=== PATIENT | female | born 1950 | race Two or more races ===

== ENCOUNTER 2020-09-10 09:05 | Outpatient (REF) | payer MEDICARE, MEDICAID, SELFPAY ==
--- NOTE | 2020-09-10 | US_ITS ---
EXAMINATION: US VENOUS ULTRASOUND WITH DOPPLER LOWER EXTREMITY, RIGHT CLINICAL INFORMATION: Swelling COMPARISON: Previous exam December 2017 TECHNIQUE: Ultrasound of the deep veins is performed from the hip to the calf with compression sonography and color and pulse Doppler assessment. Spectral analysis with color-flow imaging is performed. FINDINGS: There is normal venous compression and respiratory variation and augmented flow. The visualized common femoral vein, superficial femoral vein, profunda femoral vein, popliteal vein, and the trifurcation region shows no evidence of deep venous thrombosis. There is no significant popliteal fossa cyst. US/US venous duplex LE RT IMPRESSION: No DVT demonstrated in the right lower extremity.
== END 2020-09-10 09:06 | disposition home or self-care (01) ==
LOC: HO.US 09:05
PROVIDERS: PCP Internal Medicine; Visit Provider Internal Medicine
DX: R60.9 Edema, unspecified (principal)
CPT/HCPCS: 93971

== ENCOUNTER 2020-09-10 09:17 | Outpatient (REF) | payer MEDICARE, MEDICAID, SELFPAY | END 2020-09-10 09:18 | disposition home or self-care (01) | LOC: HO.HMGCX 09:17 | PROVIDERS: PCP Internal Medicine; Visit Provider Internal Medicine | DX: Z13.89 Encounter for screening for other disorder (principal) ==

== ENCOUNTER → 2020-10-01 14:15 | Outpatient (BNVA) | payer MEDICARE, MEDICAID, SELFPAY | PROVIDERS: PCP Family Medicine; Visit Provider Internal Medicine | DX: J44.9 Chronic obstructive pulmonary disease, unspecified (principal); J30.9 Allergic rhinitis, unspecified; Z79.899 Other long term (current) drug therapy | CPT/HCPCS: Q3014 ==

== ENCOUNTER → 2021-01-22 14:58 | Outpatient (BNVA) | payer MEDICARE, MEDICAID, SELFPAY | PROVIDERS: Visit Provider Internal Medicine | DX: Z13.89 Encounter for screening for other disorder (principal) | CPT/HCPCS: Q3014 ==

== ENCOUNTER 2021-02-16 07:28 | Outpatient (REF) | payer MEDICARE, MEDICAID, SELFPAY | END 2021-02-16 07:29 | disposition home or self-care (01) | LOC: HO.HOSX 07:28 | PROVIDERS: Visit Provider Orthopaedic Surgery | DX: Z13.89 Encounter for screening for other disorder (principal) ==

== ENCOUNTER 2021-04-28 04:26 | Emergency (ER) | payer MEDICARE, MEDICAID, SELFPAY ==
--- NOTE | ~2021-04-28 | CT_ITS ---
EXAMINATION: CT ABDOMEN AND PELVIS WITHOUT CONTRAST CLINICAL INFORMATION: Abscess COMPARISON: CT abdomen/pelvis dated 11/30/2018 TECHNIQUE: Multidetector volumetric imaging was performed from the superior aspect of the liver through the pubic symphysis. Sagittal and coronal reformatted images were obtained on the technologist's workstation. This CT examination was performed using dose optimization techniques as appropriate, variously including the following: *Automated exposure control *Adjustment of mA and/or kV according to patient size (this includes techniques or standardized protocols for targeted exams where dose is matched to indication/reason for exam; i.e. extremities or head) *Use of iterative reconstruction technique DLP: 1370 mGy-cm FINDINGS: LUNG BASES: The visualized lung bases are unremarkable. LIVER, GALLBLADDER, AND BILIARY TREE: The liver is normal in size, shape, and attenuation. No focal hepatic lesion or biliary ductal dilatation is present. Gallbladder unremarkable. PANCREAS: Unremarkable. SPLEEN: Unremarkable. ADRENAL GLANDS: Unremarkable. KIDNEYS AND URETERS: The kidneys are normal in size, shape, and attenuation. No hydronephrosis, hydroureter, or calculi seen. No perinephric stranding. BLADDER: Unremarkable. GASTROINTESTINAL TRACT: Left colonic diverticulosis. No evidence of diverticulitis. Normal appendix. Stomach and small bowel unremarkable. ABDOMINAL WALL: Small fat-containing umbilical hernia without evidence of inflammation. LYMPH NODES: Normal. VASCULAR: Unremarkable. PELVIC VISCERA: Hysterectomy and right oophorectomy. Left ovary unremarkable. There is fat stranding within the left ischioanal fat, medial to the ischium, without abscess formation or evidence of a fistulous tract. OSSEOUS STRUCTURES: Unremarkable. CT/CT abdomen pelvis wo con IMPRESSION: Left colonic diverticulosis without evidence of diverticulitis. Hysterectomy and right oophorectomy. Left ovary unremarkable. Minimal fat stranding within the left ischioanal fat extending towards the ischium suggestive of evolving decubitus changes.
[2021-04-28 04:30] VITALS: BP 129/64; PULSE 73; RESP 16; TEMP 36.9; O2SAT 94; BMI 45.2
--- NOTE | 2021-04-28 06:10 | ED.SKABFB ---
HPI - Skin/Abscess/Foreign Bdy General Chief complaint: Skin/Abscess/Foreign Body Stated complaint: ABD PAIN Time Seen by Provider: 04/28/21 05:55 History of Present Illness HPI narrative: 62-year-old female presents today with having skin lesions that is going on for few months. Patient complaining of discharge coming from 1 of the wounds in the left groin area. No history of diabetes. No nausea no vomiting. No fever. Positive generalized malaise. Patient claims these rash comes and goes. There has been multiple rash in her gluteal area bilaterally. These regions has been ongoing for months if not years. Patient claims she clean herself on a daily basis. Related Data Home Medications Medication Instructions Recorded Confirmed allopurinol 100 mg tablet 100 mg PO QAM 10/01/20 amlodipine 10 mg tablet 10 mg PO DAILY 10/01/20 atorvastatin 80 mg tablet 80 mg PO DAILY 10/01/20 blood sugar diagnostic #10 ea 10/01/20 brimonidine 0.2 % eye drops drp OPHTHALMIC (EYE) ONCE ml 10/01/20 calcium carbonate 600 mg (1,500 1 tab PO BID 10/01/20 mg)-vitamin D3 400 unit tablet carbamide peroxide 6.5 % ear drops 2 drp OTIC (EARS) DAILY PRN 10/01/20 diclofenac sodium 1 % topical gel TOPICAL 10/01/20 dicyclomine 20 mg tablet 20 mg PO QID 10/01/20 ferrous sulfate 325 mg (65 mg 325 mg PO QAM 10/01/20 iron) tablet fexofenadine 180 mg tablet 180 mg PO QAM 10/01/20 fluticasone propionate 50 INTRANASAL 10/01/20 mcg/actuation nasal spray,suspension gabapentin 800 mg tablet 800 mg PO QID 10/01/20 hydrochlorothiazide 25 mg tablet 25 mg PO DAILY 10/01/20 indomethacin 50 mg capsule 50 mg PO TID PRN 10/01/20 inhalational spacing device #1 ea 10/01/20 lancets 33 gauge #100 ea 10/01/20 latanoprost 0.005 % eye drops 1 drp OPHTHALMIC (EYE) BEDTIME 10/01/20 lidocaine 5 % topical ointment TOPICAL 10/01/20 losartan 50 mg tablet 50 mg PO DAILY 10/01/20 metoprolol succinate 50 mg 50 mg PO DAILY 10/01/20 tablet,extended release 24 hr olanzapine 10 mg tablet 10 mg PO BEDTIME 10/01/20 pantoprazole 40 mg tablet,delayed 40 mg PO DAILY 10/01/20 release perphenazine 4 mg tablet 4 mg PO 10/01/20 potassium chloride 10 mEq 10 meq PO DAILY 10/01/20 tablet,extended release sertraline 100 mg tablet 100 mg PO DAILY 10/01/20 sucralfate 1 gram tablet 2 g PO DAILY 10/01/20 triamcinolone acetonide 0.1 % applic TOPICAL BID 10/01/20 topical cream varicella-zoster glycoE [id number] IM 10/01/20 adj(PF) 50 mcg/0.5 mL IM susp, kit Previous Rx's Medication Instructions Recorded albuterol sulfate 90 mcg/actuation 1 - 2 puff INHALATION Q4-6H PRN 10/15/20 aerosol inhaler #18 g fluticasone 250 mcg-salmeterol 50 1 ea PO BID #60 cap 02/03/21 mcg/dose blistr powdr for inhalation montelukast 10 mg tablet 10 mg PO QPM #30 tab 03/31/21 Allergies Allergy/AdvReac Type Severity Reaction Status Date / Time peanut [PEANUT] Allergy Severe ITCHY, Verified 01/22/21 15:00 SWELLING seafood Allergy Severe Rash Verified 01/22/21 15:00 tomato [TOMATO] Allergy Severe ITCHY, Verified 01/22/21 15:00 SWELLING aspirin [ASA] Allergy Intermediate ITCHY,ANXIOUS, Verified 01/22/21 15:00 itching, rash Iodinated Contrast Media Allergy Intermediate HIVES Verified 01/22/21 15:00 [IV CONTRAST] plantain [PLANTAIN] Allergy Intermediate ITCHY/SWELL Verified 01/22/21 15:00 ING Review of Systems Review of Systems: Constitutional: No Weight loss, No Fever, No Chills, No Night Sweats, No Fatigue, No Malaise ENT/Mouth: No Hearing loss, No Ear Pain, No Nasal Congestion, No Sinus Pain, No Hoarseness, No sore throat, No Rhinorrhea, No Swallowing Difficulty Eyes: No Eye Pain, No Swelling, No Redness, No Foreign Body, No Discharge, No Vision Changes Cardiovascular: No Chest Pain, No SOB, No Dyspnea on Exertion, No Orthopnea, No Edema, No Palpitations Respiratory: No Cough, No Sputum, No Wheezing, No Smoke Exposure, No Dyspnea Gastrointestinal: No Nausea, No Vomiting, No Diarrhea, No Constipation, No abdominal Pain, No Hematochezia, No Melena Genitourinary: no irregular bleeding, No Dysuria, No Urinary Frequency, No Hematuria, No Urinary Incontinence, No Urgency, No Flank Pain, No Urinary Flow Changes, No Hesitancy Musculoskeletal: No joint pain, No Myalgias, No Joint Swelling Skin: Positive skin rash to the bilateral gluteal area. To the groin area on the left side. Neuro: No Weakness, No Numbness, No Paresthesias, No Loss of Consciousness, No Dizziness, No Headache Psych: No Anxiety/Panic, No Depression, No SI/HI/AH/VH, No Social Issues, Heme/Lymph: No Bruising, No Bleeding,No Lymphadenopathy Endocrine: No Polyuria, No Polydipsia, No Temperature Intolerance PMFSH Past Medical History Medical History Allergic rhinitis COPD (chronic obstructive pulmonary disease) Social History Social History Alcohol intake: never Patient Tobacco Use Status: Never used Tobacco Use of substances other than those prescribed or required for medical reasons: No Advance Directives: No Advance Directives Information Provided: No Physical Exam Vital Signs: Vital Signs: Last Vital Signs Temp 98.5 F 04/28/21 04:30 Pulse 73 04/28/21 04:30 Resp 16 04/28/21 04:30 BP 129/64 04/28/21 04:30 Pulse Ox 94 04/28/21 04:30 Body Mass Index 45.2 Appearance: Alert. Oriented X3. No acute distress. Eyes: Pupils equal, round and reactive to light. ENT: Pharynx normal. Neck: Normal inspection. Neck supple. No lymph nodes noted. No crepitus CVS: Normal heart rate and rhythm. Pulses normal. Normal S1 and S2 Respiratory: No respiratory distress. Breath sounds normal. No Wheezing. No rales Abdomen: Soft and nontender. No rigidity. No distention. good BS x4 Skin: Skin warm and dry. In the left groin there is an area of a draining abscess that is approximately 3 cm x 2 cm in size. Purulence discharge noted. Bilateral gluteal area has multiple lesion that seems erythematous crusted over. Question abscess that had drained. Normal skin turgor. Extremities: No lower extremity edema. Neurovascular intact to all extremities. No Lacerations. No Rash Neuro: Oriented X 3. No motor deficit. No sensory deficit. Moving all extermities. No slurred speech MDM - Skin/Abscess/Foreign Bdy MDM Narrative Medical decision making narrative: CT scan of the abdomen pelvis did not show any acute evidence of fistula. Patient has an abscess that is already draining. Will give patient additional doxycycline. Will go ahead and have patient use nystatin for the moist fungal lesion. In stable condition. Close follow-up on an outpatient basis. Discharge Plan Discharge Prescriptions: No Action albuterol sulfate 90 mcg/actuation HFA aerosol inhaler 1 - 2 puff inhalation Q4-6H PRN (Reason: dyspnea) Qty: 18 RF: 3 fluticasone propion-salmeterol 250-50 mcg/dose blister with device 1 ea PO BID Qty: 60 RF: 3 montelukast 10 mg tablet 10 mg PO QPM Qty: 30 RF: 5 lidocaine 5 % ointment topical RF: 0 losartan 50 mg tablet 50 mg PO DAILY RF: 0 calcium carbonate-vitamin D3 600 mg(1,500mg) -400 unit tablet 1 tab PO BID RF: 0 hydrochlorothiazide 25 mg tablet 25 mg PO DAILY RF: 0 ferrous sulfate 325 mg (65 mg iron) tablet 325 mg PO QAM RF: 0 pantoprazole 40 mg tablet,delayed release (DR/EC) 40 mg PO DAILY RF: 0 gabapentin 800 mg tablet 800 mg PO QID RF: 0 allopurinol 100 mg tablet 100 mg PO QAM RF: 0 fexofenadine 180 mg tablet 180 mg PO QAM RF: 0 olanzapine 10 mg tablet 10 mg PO BEDTIME RF: 0 sertraline 100 mg tablet 100 mg PO DAILY RF: 0 atorvastatin 80 mg tablet 80 mg PO DAILY RF: 0 latanoprost 0.005 % drops 1 drp ophthalmic (eye) BEDTIME RF: 0 diclofenac sodium 1 % gel topical RF: 0 fluticasone propionate 50 mcg/actuation spray,suspension intranasal RF: 0 brimonidine 0.2 % drops ophthalmic (eye) ONCE RF: 0 amlodipine 10 mg tablet 10 mg PO DAILY RF: 0 metoprolol succinate 50 mg tablet extended release 24 hr 50 mg PO DAILY RF: 0 potassium chloride 10 mEq tablet extended release 10 meq PO DAILY RF: 0 carbamide peroxide 6.5 % drops 2 drp otic (ears) DAILY PRN (Reason: headache) RF: 0 triamcinolone acetonide 0.1 % cream topical BID RF: 0 indomethacin 50 mg capsule 50 mg PO TID PRN (Reason: gout pain) RF: 0 (DME) lancets 33 gauge misc See Rx Instructions ea Not Applicable DAILY Qty: 100 RF: 0 dicyclomine 20 mg tablet 20 mg PO QID RF: 0 sucralfate 1 gram tablet 2 g PO DAILY RF: 0 perphenazine 4 mg tablet 4 mg PO RF: 0 Shingrix (PF) 50 mcg/0.5 mL suspension for reconstitution IM RF: 0 (DME) Compact Space Chamber Spacer See Rx Instructions ea .ROUTE .MEDSUPPLY Qty: 1 RF: 0 (DME) OneTouch Ultra Blue Test Strip Strip See Rx Instructions strip .ROUTE .MEDSUPPLY Qty: 10 RF: 0
== END 2021-04-28 07:30 | disposition home or self-care (01) ==
PROVIDERS: Emergency Provider Emergency Medicine Emergency Medical Services
DX: N76.4 Abscess of vulva (principal); B35.6 Tinea cruris
CPT/HCPCS: 74176; 99283; 99284

== ENCOUNTER 2021-05-28 06:27 | Emergency (ER) | payer MEDICARE, MEDICAID, SELFPAY ==
[2021-05-28 06:30] VITALS: BP 159/76; PULSE 88; O2SAT 97
[2021-05-28 06:33] VITALS: BP 117/91; PULSE 83; RESP 20; TEMP 37.2; O2SAT 94; BMI 46.6
--- NOTE | 2021-05-28 06:48 | ED_ITS ---
HPI - Abdominal Pain General Chief Complaint: Abdominal Pain Stated Complaint: blood in urine Time Seen by Provider: 05/28/21 06:36 Source: patient and EMS Mode of arrival: EMS Limitations: no limitations History of Present Illness HPI narrative: Patient comes emergency room complaining of a rash in her legs. Patient states that she is convinced that there were maggots coming out of her skin. Patient has significant scratches and excoriations in her lower extremities around the buttocks area, no where else on the body. Patient denies scratching the wounds. Initially, EMS was called with a chief complain of blood in the urine. Patient denies hematuria, dysuria, flank pain, no abdominal pain, no URI symptoms, no fever or chills. Related Data Home Medications Medication Instructions Recorded Confirmed allopurinol 100 mg tablet 100 mg PO QAM 10/01/20 amlodipine 10 mg tablet 10 mg PO DAILY 10/01/20 atorvastatin 80 mg tablet 80 mg PO DAILY 10/01/20 blood sugar diagnostic #10 ea 10/01/20 brimonidine 0.2 % eye drops drp OPHTHALMIC (EYE) ONCE ml 10/01/20 calcium carbonate 600 mg (1,500 1 tab PO BID 10/01/20 mg)-vitamin D3 400 unit tablet carbamide peroxide 6.5 % ear drops 2 drp OTIC (EARS) DAILY PRN 10/01/20 diclofenac sodium 1 % topical gel TOPICAL 10/01/20 dicyclomine 20 mg tablet 20 mg PO QID 10/01/20 ferrous sulfate 325 mg (65 mg 325 mg PO QAM 10/01/20 iron) tablet fexofenadine 180 mg tablet 180 mg PO QAM 10/01/20 fluticasone propionate 50 INTRANASAL 10/01/20 mcg/actuation nasal spray,suspension gabapentin 800 mg tablet 800 mg PO QID 10/01/20 hydrochlorothiazide 25 mg tablet 25 mg PO DAILY 10/01/20 indomethacin 50 mg capsule 50 mg PO TID PRN 10/01/20 inhalational spacing device #1 ea 10/01/20 lancets 33 gauge #100 ea 10/01/20 latanoprost 0.005 % eye drops 1 drp OPHTHALMIC (EYE) BEDTIME 10/01/20 lidocaine 5 % topical ointment TOPICAL 10/01/20 losartan 50 mg tablet 50 mg PO DAILY 10/01/20 metoprolol succinate 50 mg 50 mg PO DAILY 10/01/20 tablet,extended release 24 hr olanzapine 10 mg tablet 10 mg PO BEDTIME 10/01/20 pantoprazole 40 mg tablet,delayed 40 mg PO DAILY 10/01/20 release perphenazine 4 mg tablet 4 mg PO 10/01/20 potassium chloride 10 mEq 10 meq PO DAILY 10/01/20 tablet,extended release sertraline 100 mg tablet 100 mg PO DAILY 10/01/20 sucralfate 1 gram tablet 2 g PO DAILY 10/01/20 triamcinolone acetonide 0.1 % applic TOPICAL BID 10/01/20 topical cream varicella-zoster glycoE [id number] IM 10/01/20 adj(PF) 50 mcg/0.5 mL IM susp, kit Previous Rx's Medication Instructions Recorded albuterol sulfate 90 mcg/actuation 1 - 2 puff INHALATION Q4-6H PRN 10/15/20 aerosol inhaler #18 g montelukast 10 mg tablet 10 mg PO QPM #30 tab 03/31/21 doxycycline hyclate 100 mg PO BID 7 Days #14 cap 04/28/21 nystatin 1 appl TOPICAL BID #30 g 04/28/21 fluticasone 250 mcg-salmeterol 50 1 ea PO BID #60 cap 05/26/21 mcg/dose blistr powdr for inhalation cephalexin [Keflex] 750 mg PO BID #14 cap 05/28/21 doxycycline hyclate 100 mg PO BID #14 cap 05/28/21 Allergies Allergy/AdvReac Type Severity Reaction Status Date / Time peanut [PEANUT] Allergy Severe ITCHY, Verified 01/22/21 15:00 SWELLING seafood Allergy Severe Rash Verified 01/22/21 15:00 tomato [TOMATO] Allergy Severe ITCHY, Verified 01/22/21 15:00 SWELLING aspirin [ASA] Allergy Intermediate ITCHY,ANXIOUS, Verified 01/22/21 15:00 itching, rash Iodinated Contrast Media Allergy Intermediate HIVES Verified 01/22/21 15:00 [IV CONTRAST] plantain [PLANTAIN] Allergy Intermediate ITCHY/SWELL Verified 01/22/21 15:00 ING Review of Systems Review of Systems Constitutional : No Weight loss, No Fever, No Chills, No Night Sweats, No Fa tigue, No Malaise ENT/Mouth : No Hearing loss, No Ear Pain, No Nasal Congestion, No Sinus Pain, No Hoarseness, No sore throat, No Rhinorrhea, No Swallowing Difficulty Eyes: No Eye Pain, No Swelling, No Redness, No Foreign Body, No Discharge, No Vision Changes Cardiovascular : No Chest Pain, No SOB, No Dyspnea on Exertion, No Orthopnea, No Edema, No Palpitations Respiratory : No Cough, No Sputum, No Wheezing, No Smoke Exposure, No Dyspnea Gastrointestinal : No Nausea, No Vomiting, No Diarrhea, No Constipation, No abdominal Pain, No Hematochezia, No Melena Genitourinary : no irregular bleeding, No Dysuria, No Urinary Frequency, No Hematuria, No Urinary Incontinence, No Urgency, No Flank Pain, No Urinary Flow Changes, No Hesitancy Musculoskeletal : No joint pain, No Myalgias, No Joint Swelling Skin : Complaining of multiple skin lesions in both upper thighs posteriorly Neuro : No Weakness, No Numbness, No Paresthesias, No Loss of Consciousness, No Dizziness, No Headache Psych : No Anxiety/Panic, No Depression, No SI/HI/AH/VH, No Social Issues, Heme/Lymph: No Bruising, No Bleeding,No Lymphadenopathy Endocrine : No Polyuria, No Polydipsia, No Temperature Intolerance Physical Exam Vital Signs: Vital Signs: Last Vital Signs Temp 98.9 F 05/28/21 06:33 Pulse 83 05/28/21 06:33 Resp 20 05/28/21 06:33 BP 117/91 H 05/28/21 06:33 Pulse Ox 94 05/28/21 06:33 Body Mass Index 46.6 Appearance: Alert. Oriented X3. No acute distress. Eyes: Pupils equal, round and reactive to light. ENT: Pharynx normal. Neck: Normal inspection. Neck supple. No lymph nodes noted. No crepitus CVS: Normal heart rate and rhythm. Pulses normal. Normal S1 and S2 Respiratory: No respiratory distress. Breath sounds normal. No Wheezing. No rales Abdomen: Soft and nontender. No rigidity. No distention. good BS x4 Skin: Skin warm and dry. Patient has multiple deep excoriations, likely from skin picking, most of wound and in the buttocks and the thighs posteriorly, patient has a small abscess in the left lower quadrant, superficial, less than 1 cm, mildly erythematous , no fluctuation Extremities: No lower extremity edema. No lower extremity edema. No Lacerations. No Rash Neuro: Oriented X 3. No motor deficit. No sensory deficit. Moving all extermities. No slurred speech. Course Course Course Narrative: Patient was giving the 1st dose of Keflex and doxycycline for cellulitis. Sepsis is not suspected. Patient struck to follow-up with her primary care physician. At this time, it seems that the patient is picking on her skin, the lesions are only in her upper thighs. The abscess in the abdomen left lower quadrant, is small, does not contain any fluid, I&D not recommended at this time. MDM - Abdominal Pain Lab Data Result diagrams: 05/28/21 07:08 05/28/21 07:08 Labs: Lab Results 05/28/21 05/28/21 05/28/21 Range/Units 07:08 07:08 07:30 WBC 11.6 H (4.8-10.8) X10*3/uL RBC 4.45 (4.20-5.50) X10*6/uL Hgb 13.3 (12.0-16.0) g/dl Hct 41.2 (37-47) % MCV 92.6 (80-98) fL MCH 29.9 (27.0-33.0) pg MCHC 32.3 (31.0-35.0) g/dl RDW 13.9 (11.0-16.0) % Plt Count 296 (160-400) X10*3/uL MPV 10.3 (9.4-12.3) fL Immature Gran % (Auto) 0.3 (0.0-0.4) % Neut % (Auto) 72.2 (45-73) % Lymph % (Auto) 17.7 L (20-40) % Desha % (Auto) 7.0 (2-11) % Eos % (Auto) 2.5 (0-4) % Baso % (Auto) 0.3 (0-2) % Lymph # (Auto) 2.1 (1.2-4.9) X10*3/uL Desha # (Auto) 0.8 (0.1-1.2) X10*3/uL Eos # (Auto) 0.3 (0.0-0.4) X10*3/uL Baso # (Auto) 0.0 (0.0-0.2) X10*3/uL Abs Immat Gran (auto) 0.04 H (0.00-0.03) X10*3/uL Absolute Neuts (auto) 8.4 H (2.0-8.3) X10*3/uL Absolute Nucleated RBC 0.000 (0.0-0.012) X10*3/uL Nucleated RBC % (auto) 0.0 (0.0-0.2) /100WBC Sodium 144 (135-145) mmol/L Potassium 4.0 (3.3-5.1) mmol/L Chloride 105 (96-108) mmol/L Carbon Dioxide 30 H (22-29) mmol/L Anion Gap 13 (12-20) BUN 20 H (9-16) mg/dL Creatinine 1.26 (0.5-1.4) mg/dL Estim Creat Clear Calc 56.5 Estimated GFR 42 Random Glucose 111 (60-115) mg/dL Calcium 8.7 (8.4-10.2) mg/dL Total Bilirubin 0.4 (0.0-1.0) mg/dL Direct Bilirubin < 0.2 (0.0-0.5) mg/dL AST 22 (5-31) U/L ALT 19 (0-31) U/L Alkaline Phosphatase 126 H (39-117) U/L Total Protein 6.1 L (6.5-8.0) g/dL Albumin 3.7 (3.5-5.0) g/dL Urine Color YELLOW Urine Appearance CLEAR Urine pH 6.0 (5.0-8.0) Ur Specific [place] 1.025 (1.005-1.025) Urine Protein 1+ H (NEG-TRACE) MG/DL Urine Glucose (UA) NEG (NEG) MG/DL Urine Ketones 5 (NEG) MG/DL Urine Blood NEG (NEG) Urine Nitrite NEG (NEG) Ur Leukocyte Esterase NEG (NEG) Urine RBC 0-2 (0) /HPF Urine WBC 0-2 (0-4) /HPF Ur Squamous Epith Cells 2+ /LPF Urine Bacteria TRACE /LPF Urine Mucus TRACE /LPF Discharge Plan Discharge Clinical Impression: Cellulitis Patient Disposition: Home, Self-Care Instructions: Cellulitis (ED) Additional Instructions: Please follow-up with your primary care physician tomorrow. If you have any worsening or new symptoms, please return to the emergency room or call 911 Prescriptions: New cephalexin [Keflex] 750 mg capsule 750 mg PO BID Qty: 14 RF: 0 doxycycline hyclate 100 mg capsule 100 mg PO BID Qty: 14 RF: 0 No Action albuterol sulfate 90 mcg/actuation HFA aerosol inhaler 1 - 2 puff inhalation Q4-6H PRN (Reason: dyspnea) Qty: 18 RF: 3 montelukast 10 mg tablet 10 mg PO QPM Qty: 30 RF: 5 fluticasone propion-salmeterol 250-50 mcg/dose blister with device 1 ea PO BID Qty: 60 RF: 3 doxycycline hyclate 100 mg capsule 100 mg PO BID 7 Days Qty: 14 RF: 0 nystatin 100,000 unit/gram powder 1 appl topical BID Qty: 30 RF: 0 lidocaine 5 % ointment topical RF: 0 losartan 50 mg tablet 50 mg PO DAILY RF: 0 calcium carbonate-vitamin D3 600 mg(1,500mg) -400 unit tablet 1 tab PO BID RF: 0 hydrochlorothiazide 25 mg tablet 25 mg PO DAILY RF: 0 ferrous sulfate 325 mg (65 mg iron) tablet 325 mg PO QAM RF: 0 pantoprazole 40 mg tablet,delayed release (DR/EC) 40 mg PO DAILY RF: 0 gabapentin 800 mg tablet 800 mg PO QID RF: 0 allopurinol 100 mg tablet 100 mg PO QAM RF: 0 fexofenadine 180 mg tablet 180 mg PO QAM RF: 0 olanzapine 10 mg tablet 10 mg PO BEDTIME RF: 0 sertraline 100 mg tablet 100 mg PO DAILY RF: 0 atorvastatin 80 mg tablet 80 mg PO DAILY RF: 0 latanoprost 0.005 % drops 1 drp ophthalmic (eye) BEDTIME RF: 0 diclofenac sodium 1 % gel topical RF: 0 fluticasone propionate 50 mcg/actuation spray,suspension intranasal RF: 0 brimonidine 0.2 % drops ophthalmic (eye) ONCE RF: 0 amlodipine 10 mg tablet 10 mg PO DAILY RF: 0 metoprolol succinate 50 mg tablet extended release 24 hr 50 mg PO DAILY RF: 0 potassium chloride 10 mEq tablet extended release 10 meq PO DAILY RF: 0 carbamide peroxide 6.5 % drops 2 drp otic (ears) DAILY PRN (Reason: headache) RF: 0 triamcinolone acetonide 0.1 % cream topical BID RF: 0 indomethacin 50 mg capsule 50 mg PO TID PRN (Reason: gout pain) RF: 0 (DME) lancets 33 gauge misc See Rx Instructions ea Not Applicable DAILY Qty: 100 RF: 0 dicyclomine 20 mg tablet 20 mg PO QID RF: 0 sucralfate 1 gram tablet 2 g PO DAILY RF: 0 perphenazine 4 mg tablet 4 mg PO RF: 0 Shingrix (PF) 50 mcg/0.5 mL suspension for reconstitution IM RF: 0 (DME) Compact Space Chamber Spacer See Rx Instructions ea .ROUTE .MEDSUPPLY Qty: 1 RF: 0 (DME) OneTouch Ultra Blue Test Strip Strip See Rx Instructions strip .ROUTE .MEDSUPPLY Qty: 10 RF: 0 PMFSH Past Medical History Medical History Allergic rhinitis COPD (chronic obstructive pulmonary disease) Social History Social History Alcohol intake: never Patient Tobacco Use Status: Never used Tobacco Advance Directives: No Advance Directives Information Provided: Yes
[2021-05-28 07:17] LABS: Basophils Percent Auto 0.3 % (0-2); Eosinophils Absolute Auto 0.3 X10*3/uL (0.0-0.4); Eosinophils Percent Auto 2.5 % (0-4); Hematocrit 41.2 % (37-47); Hemoglobin 13.3 g/dl (12.0-16.0); Imm Gran Abs Auto 0.04 X10*3/uL (0.00-0.03); Imm Gran Pct Auto 0.3 % (0.0-0.4); Lymphocytes Absolute Auto 2.1 X10*3/uL (1.2-4.9); Lymphocytes Percent Auto 17.7 % (20-40); MANUAL DIFF FLAG NO; Mean Corpuscular HGB Conc 32.3 g/dl (31.0-35.0); Mean Corpuscular Hemoglobin 29.9 pg (27.0-33.0); Mean Corpuscular Volume 92.6 fL (80-98); Mean Platelet Volume 10.3 fL (9.4-12.3); Monocytes Absolute Auto 0.8 X10*3/uL (0.1-1.2); Neutrophils Absolute Auto 8.4 X10*3/uL (2.0-8.3); Neutrophils Percent Auto 72.2 % (45-73); Platelet Count 296 X10*3/uL (160-400); Red Blood Count 4.45 X10*6/uL (4.20-5.50); Red Cell Distribution Width 13.9 % (11.0-16.0); White Blood Count 11.6 X10*3/uL (4.8-10.8)
[2021-05-28 07:38] LABS: Glucose Urine UA NEG (NEG); Leukocyte Esterase Urine NEG (NEG); Nitrite Urine NEG (NEG); Specific Gravity - Urine 1.025 (1.005-1.025); Urine Blood NEG (NEG); Urine Ketones 5 MG/DL (NEG); Urine Protein 1+ MG/DL (NEG-TRACE)
[2021-05-28 07:41] LABS: Appearance Urine CLEAR; Color Urine YELLOW
[2021-05-28 07:42] LABS: Alanine Aminotransferase 19 U/L (0-31); Albumin Level 3.7 g/dL (3.5-5.0); Alkaline Phosphatase 126 U/L (39-117); Anion Gap 13 (12-20); Aspartate Amino Transferase 22 U/L (5-31); Bilirubin Direct < 0.2 mg/dL (0.0-0.5); Bilirubin Total 0.4 mg/dL (0.0-1.0); Blood Urea Nitrogen 20 mg/dL (9-16); Calcium 8.7 mg/dL (8.4-10.2); Carbon Dioxide 30 mmol/L (22-29); Chloride 105 mmol/L (96-108); Creatinine Clr Calc Pharmacy 56.5; Estimated Glomerular Filt Rate 42; Glucose Random 111 mg/dL (60-115); Sodium 144 mmol/L (135-145); Total Protein 6.1 g/dL (6.5-8.0)
[2021-05-28 07:48] LABS: Bacteria Urine TRACE /LPF; RBC Urine 0-2 /HPF (0); Squamous Epithelial Cell Urine 2+ /LPF; WBC Urine 0-2 /HPF (0-4)
[2021-05-28 07:49] LABS: Mucus Urine TRACE /LPF
[2021-05-28 08:00] VITALS: BP 122/88; PULSE 84
[2021-05-28] MEDS: cephALEXin 500 MG CAPSULE PO (09:53)
== END 2021-05-28 10:01 | disposition home or self-care (01) ==
PROVIDERS: Emergency Provider Emergency Medicine; PCP Internal Medicine
DX: L03.116 Cellulitis of left lower limb (principal); L03.115 Cellulitis of right lower limb; L02.211 Cutaneous abscess of abdominal wall; J44.9 Chronic obstructive pulmonary disease, unspecified; Z79.899 Other long term (current) drug therapy
CPT/HCPCS: 36415; 80048; 80076; 81001; 85025; 99283; 99284

== ENCOUNTER 2021-10-27 07:47 | Outpatient (REF) | payer MEDICARE, MEDICAID, SELFPAY ==
[2021-10-27 08:15] LABS: MANUAL DIFF FLAG NO
[2021-10-27 08:40] LABS: Basophils Percent Auto 0.2 % (0-2); Eosinophils Absolute Auto 0.3 X10*3/uL (0.0-0.4); Eosinophils Percent Auto 3.2 % (0-4); Hematocrit 41.7 % (37.0-47.0); Hemoglobin 13.6 g/dl (12.0-16.0); Imm Gran Abs Auto 0.04 X10*3/uL (0.00-0.03); Imm Gran Pct Auto 0.5 % (0.0-0.4); Lymphocytes Absolute Auto 2.2 X10*3/uL (1.2-4.9); Lymphocytes Percent Auto 26.9 % (20-40); Mean Corpuscular HGB Conc 32.6 g/dl (31.0-35.0); Mean Corpuscular Volume 91.9 fL (80.0-98.0); Mean Platelet Volume 10.5 fL (9.4-12.3); Monocytes Absolute Auto 0.4 X10*3/uL (0.1-1.2); Monocytes Percent Auto 5.4 % (2-11); Neutrophils Absolute Auto 5.2 x10*3/uL (2.0-8.3); Neutrophils Percent Auto 63.8 % (45-73); Platelet Count 268 X10*3/uL (160-400); Red Blood Count 4.54 X10*6/uL (4.20-5.50); Red Cell Distribution Width 14.2 % (11.0-16.0); White Blood Count 8.1 X10*3/uL (4.8-10.8)
[2021-10-27 09:02] LABS: Anion Gap 13 (12-20); Blood Urea Nitrogen 20 mg/dL (9-16); Calcium 8.8 mg/dL (8.4-10.2); Carbon Dioxide 29 mmol/L (22-29); Chloride 106 mmol/L (96-108); Estimated Glomerular Filt Rate 42; Iron 71 mcg/dL (30-160); Percent Iron Saturation 20 % (15-50); Potassium 3.7 mmol/L (3.3-5.1); Sodium 144 mmol/L (135-145); Total Iron Binding Capacity 358 mcg/dL (228-428); Unsaturated Iron Binding 287 ug/dL
[2021-10-27 09:26] LABS: Vitamin D 25-OH Total 37.4 ng/mL (>30)
[2021-10-27 09:33] LABS: Appearance Urine CLEAR; Color Urine YELLOW; Glucose Urine UA NEG (NEG); Leukocyte Esterase Urine NEG (NEG); Nitrite Urine NEG (NEG); PH 5.5 (5.0-8.0); Specific Gravity - Urine 1.025 (1.005-1.025); Urine Blood NEG (NEG); Urine Ketones NEG (NEG); Urine Protein NEG (NEG-TRACE)
[2021-10-27 09:54] LABS: Creatinine Urine 124.91 mg/dL; Total Protein Urine Random 13 mg/dL (<12)
[2021-10-27 10:17] LABS: Squamous Epithelial Cell Urine 2+ /LPF
[2021-10-27 10:18] LABS: Bacteria Urine 2+ /LPF
[2021-10-27 10:19] LABS: RBC Urine 0 /HPF (0); WBC Urine 0-2 /HPF (0-4)
[2021-10-28 20:51] LABS: Calcium (PTHI) 8.6 mg/dL (8.6-10.4); PTHI 53 pg/mL (14-64)
== END 2021-10-27 07:48 | disposition home or self-care (01) ==
LOC: HO.LAB 07:47
PROVIDERS: PCP Internal Medicine; Visit Provider Internal Medicine Nephrology
DX: I12.9 Hypertensive chronic kidney disease with stage 1 through stage 4 chronic kidney disease, or unspecified chronic kidney disease (principal); N18.31 Chronic kidney disease, stage 3a
CPT/HCPCS: 36415; 80051; 81001; 82306; 82310; 82565; 83540; 83970; 84156; 84520; 85025

== ENCOUNTER 2022-04-01 10:29 | Outpatient (REF) | payer MEDICARE, MEDICAID, SELFPAY ==
--- NOTE | ~2022-04-01 | XR_ITS ---
EXAMINATION: LEFT SHOULDER AND LUMBAR SPINE. CLINICAL INFORMATION: Pain left shoulder and lumbar spine COMPARISON: None TECHNIQUE: 4 views left shoulder and 4 views lumbar spine. FINDINGS: Left shoulder: There is mild reduction in the glenohumeral humeral joint space. No bony erosive changes seen. There is no visible acute fracture or dislocation. The AC joint is reduced. The soft tissues are normal. Lumbar spine: There is maintained lumbar lordosis. The vertebral heights and alignment is normal. There is loss of disc height with vacuum disc phenomenon virtually at every disc level with ventral spondylosis. There is no acute fracture or lytic process seen. The paravertebral soft tissues are normal. XR/XR lumbar spine 2-3V IMPRESSION: Degenerative disc changes with ventral spondylosis virtually at every disc level. No visible acute fracture or dislocation seen. There is minimal levoscoliosis. Mild degenerative changes left shoulder joint. No visible acute fracture or dislocation seen.
--- NOTE | ~2022-04-01 | XR_ITS ---
EXAMINATION: LEFT SHOULDER AND LUMBAR SPINE. CLINICAL INFORMATION: Pain left shoulder and lumbar spine COMPARISON: None TECHNIQUE: 4 views left shoulder and 4 views lumbar spine. FINDINGS: Left shoulder: There is mild reduction in the glenohumeral humeral joint space. No bony erosive changes seen. There is no visible acute fracture or dislocation. The AC joint is reduced. The soft tissues are normal. Lumbar spine: There is maintained lumbar lordosis. The vertebral heights and alignment is normal. There is loss of disc height with vacuum disc phenomenon virtually at every disc level with ventral spondylosis. There is no acute fracture or lytic process seen. The paravertebral soft tissues are normal. XR/XR shoulder LT min 2V IMPRESSION: Degenerative disc changes with ventral spondylosis virtually at every disc level. No visible acute fracture or dislocation seen. There is minimal levoscoliosis. Mild degenerative changes left shoulder joint. No visible acute fracture or dislocation seen.
== END 2022-04-01 10:30 | disposition home or self-care (01) ==
LOC: HO.XRAY 10:29
PROVIDERS: PCP Internal Medicine; Visit Provider General Practice
DX: M25.512 Pain in left shoulder (principal); M51.16 Intervertebral disc disorders with radiculopathy, lumbar region
CPT/HCPCS: 72100; 73030

== ENCOUNTER 2022-04-15 09:42 | Outpatient (REF) | payer MEDICARE, MEDICAID, SELFPAY ==
--- NOTE | ~2022-04-15 | XR_ITS ---
EXAMINATION: XR WRIST, RIGHT CLINICAL INFORMATION: Pain COMPARISON: None TECHNIQUE: PA, lateral, and oblique views of the right wrist. FINDINGS: There is widening of the scapholunate space raise concern for possible intercarpal ligamental derangement. No fracture or dislocation. Bone alignments otherwise satisfactory. Small accessory ossicle near the tip of ulnar styloid. XR/XR wrist RT min 3V IMPRESSION: Widening of scapholunate space raise concern for possible underlying internal intercarpal ligamental derangements, this can be further evaluated by MRI.
--- NOTE | ~2022-04-15 | XR_ITS ---
EXAMINATION: XR FACIAL BONES CLINICAL INFORMATION: Headaches. COMPARISON: None TECHNIQUE: 3 views of the facial bones were obtained. FINDINGS: There is a moderate-sized polyp or retention cyst in left maxillary sinus. The right maxillary sinus and sphenoid sinuses are clear. The bony sinus castellanos are intact. The mastoid sinuses are clear. There is benign hyperostosis frontalis interna. XR/XR facial bones <3V IMPRESSION: Moderate-sized polyp or retention cyst in left maxillary sinus. The rest of the paranasal sinuses are clear. Benign hyperostosis frontalis interna.
[2022-04-15 10:37] LABS: Anion Gap 15 (12-20); Blood Urea Nitrogen 34 mg/dL (9-16); Calcium 9.4 mg/dL (8.4-10.2); Carbon Dioxide 27 mmol/L (22-29); Chloride 100 mmol/L (96-108); Estimated Glomerular Filt Rate 34; Glucose Random 177 mg/dL (60-115); Potassium 4.3 mmol/L (3.3-5.1); Sodium 138 mmol/L (135-145)
== END 2022-04-15 09:43 | disposition home or self-care (01) ==
LOC: HO.XRAY 09:42
PROVIDERS: Referring Provider Internal Medicine Cardiovascular Disease; Visit Provider Emergency Medicine
DX: M25.531 Pain in right wrist (principal); R51.9 Headache, unspecified; I10 Essential (primary) hypertension
CPT/HCPCS: 36415; 70140; 73110; 80048

== ENCOUNTER 2022-04-27 12:50 | Outpatient (REF) | payer MEDICARE, MEDICAID, SELFPAY ==
--- NOTE | ~2022-04-27 | MM_ITS ---
EXAMINATION: MM SCREENING DIGITAL BREAST TOMOSYNTHESIS, BILATERAL CLINICAL INFORMATION: Screening. Asymptomatic. Family history breast cancer, 2 sisters. The lifetime risk of breast cancer based on the Tyrer-Cuzick Model is 11%. COMPARISON: Mammography: 02/05/2019, 07/25/2017, 06/28/2016 TECHNIQUE: Digital breast tomosynthesis is performed in both the craniocaudal and mediolateral oblique views along with computer-aided detection (CAD). Synthesized 2D images are generated from the tomosynthesis. FINDINGS: There are scattered areas of fibroglandular density (ACR BI-RADS breast composition Category b). Parenchymal pattern borders on heterogeneously dense. There is no interval significant mass or architectural abnormality or developing density. The axilla and skin contours are unremarkable. Smooth oval benign-appearing nodule again seen posterior upper outer left breast similar to prior studies. No abnormal calcifications on left. Right breast has new loosely grouped calcifications posterior medial breast on CC view, not as well visualized on MLO projection. Patient will be recalled for additional imaging. MM/MM tomosynthesis screening BI IMPRESSION: Right: -New loosely grouped calcifications posterior medial breast. Left: -No mammographic evidence of malignancy. ASSESSMENT: BI-RADS 0: Incomplete - Need Additional Imaging Evaluation RECOMMENDATION: 1. Additional views of the right breast (magnification CC, magnification LM). 2. Radiology department staff will contact the patient for additional imaging. This patient's information was entered into a reminder system with a target due date for their next mammogram.
== END 2022-04-27 12:51 | disposition home or self-care (01) ==
LOC: HO.MAMMO 12:50
PROVIDERS: PCP Internal Medicine; Visit Provider Internal Medicine
DX: Z12.31 Encounter for screening mammogram for malignant neoplasm of breast (principal)
CPT/HCPCS: 77063; 77067

== ENCOUNTER 2022-05-04 14:04 | Outpatient (REF) | payer OTHER, SELFPAY ==
[2022-05-04 14:17] LABS: MANUAL DIFF FLAG NO
[2022-05-04 15:16] LABS: Appearance Urine HAZY; Color Urine YELLOW; Glucose Urine UA NEG (NEG); Leukocyte Esterase Urine NEG (NEG); Nitrite Urine NEG (NEG); PH 5.5 (5.0-8.0); Urine Blood NEG (NEG); Urine Ketones NEG (NEG); Urine Protein NEG (NEG-TRACE)
[2022-05-04 15:18] LABS: Basophils Percent Auto 0.4 % (0-2); Eosinophils Absolute Auto 0.2 X10*3/uL (0.0-0.4); Eosinophils Percent Auto 2.4 % (0-4); Hematocrit 38.3 % (37.0-47.0); Hemoglobin 12.4 g/dl (12.0-16.0); Imm Gran Abs Auto 0.02 X10*3/uL (0.00-0.03); Imm Gran Pct Auto 0.2 % (0.0-0.4); Lymphocytes Absolute Auto 2.5 X10*3/uL (1.2-4.9); Lymphocytes Percent Auto 30.1 % (20-40); Mean Corpuscular HGB Conc 32.4 g/dl (31.0-35.0); Mean Corpuscular Hemoglobin 30.4 pg (27.0-33.0); Mean Corpuscular Volume 93.9 fL (80.0-98.0); Monocytes Absolute Auto 0.6 X10*3/uL (0.1-1.2); Monocytes Percent Auto 7.5 % (2-11); Neutrophils Percent Auto 59.4 % (45-73); Platelet Count 303 X10*3/uL (160-400); Red Blood Count 4.08 X10*6/uL (4.20-5.50); Red Cell Distribution Width 14.8 % (11.0-16.0); White Blood Count 8.4 X10*3/uL (4.8-10.8)
[2022-05-04 15:34] LABS: Estimated Average Glucose 117 mg/dL; Hemoglobin A1c % 5.7 %
[2022-05-04 16:12] LABS: Ferritin 298 ng/mL (10-250); Vitamin D 25-OH Total 29.4 ng/mL (>30)
[2022-05-04 16:20] LABS: Anion Gap 13 (12-20); Blood Urea Nitrogen 29 mg/dL (9-16); Calcium 8.9 mg/dL (8.4-10.2); Carbon Dioxide 30 mmol/L (22-29); Chloride 104 mmol/L (96-108); Estimated Glomerular Filt Rate 45; Iron 65 mcg/dL (30-160); Percent Iron Saturation 18 % (15-50); Potassium 4.3 mmol/L (3.3-5.1); Sodium 143 mmol/L (135-145); Total Iron Binding Capacity 362 mcg/dL (228-428); Unsaturated Iron Binding 297 ug/dL
[2022-05-04 16:21] LABS: Creatinine Urine 60.04 mg/dL; Protein/Creatinine Ratio, Ur 0.15 (<0.2); Total Protein Urine Random 9 mg/dL (<12)
== END 2022-05-04 14:05 | disposition home or self-care (01) ==
LOC: HO.LAB 14:04
PROVIDERS: PCP Internal Medicine; Visit Provider Internal Medicine Nephrology
DX: N18.31 Chronic kidney disease, stage 3a (principal)
CPT/HCPCS: 36415; 80051; 81003; 82306; 82310; 82565; 82728; 83036; 83540; 84156; 84520; 85025

== ENCOUNTER → 2022-05-05 13:31 | Outpatient (BNVA) | payer OTHER, SELFPAY | PROVIDERS: PCP Internal Medicine; Visit Provider Internal Medicine | DX: J30.9 Allergic rhinitis, unspecified (principal); J44.9 Chronic obstructive pulmonary disease, unspecified; G47.33 Obstructive sleep apnea (adult) (pediatric) | CPT/HCPCS: 99212 ==

== ENCOUNTER 2022-05-11 13:14 | Outpatient (REF) | payer OTHER, SELFPAY ==
--- NOTE | ~2022-05-11 | MM_ITS ---
EXAMINATION: MM DIAGNOSTIC DIGITAL MAMMOGRAPHY, RIGHT CLINICAL INFORMATION: Recall from screening for new loosely grouped calcifications posterior medial right breast. Family history breast cancer, 2 sisters. Age 72. TC score 11%. COMPARISON: Mammography: 04/27/2022, 02/05/2019 TECHNIQUE: Digital mammography is performed in the following views: Magnification CC, magnification LM. FINDINGS: There are scattered areas of fibroglandular density (ACR BI-RADS breast composition Category b). The additional views demonstrate loosely grouped heterogeneous calcifications 6-10 in number posterior medial right breast 3:00 position. Results are discussed with the patient at time of visit, using an educational sign language interpreter. There are no additional prior mammograms between 2019 and current imaging. Given the family history and new finding, stereotactic sampling is recommended to confirm benignity. MM/MM added views RT IMPRESSION: New loosely grouped heterogeneous calcifications posterior 3:00 right breast. ASSESSMENT: BI-RADS 4: Suspicious RECOMMENDATION: Stereotactic sampling right breast calcifications. This patient's information was entered into a reminder system with a target due date for their next mammogram.
== END 2022-05-11 13:15 | disposition home or self-care (01) ==
LOC: HO.MAMMO 13:14
PROVIDERS: PCP Internal Medicine; Visit Provider Internal Medicine
DX: R92.1 Mammographic calcification found on diagnostic imaging of breast (principal); Z80.3 Family history of malignant neoplasm of breast
CPT/HCPCS: 77065

== ENCOUNTER → 2022-05-12 12:59 | Outpatient (BNVA) | payer OTHER, SELFPAY | PROVIDERS: PCP Internal Medicine; Visit Provider Surgery | DX: D12.6 Benign neoplasm of colon, unspecified (principal); E66.01 Morbid (severe) obesity due to excess calories; Z68.41 Body mass index [BMI] 40.0-44.9, adult | CPT/HCPCS: 99202 ==

== ENCOUNTER → 2022-05-13 08:25 | Outpatient (BNVA) | payer OTHER, SELFPAY | PROVIDERS: PCP Internal Medicine; Visit Provider Surgery | DX: R92.8 Other abnormal and inconclusive findings on diagnostic imaging of breast (principal) | CPT/HCPCS: 99212 ==

== ENCOUNTER 2022-05-28 11:30 | Outpatient (RCR) | payer OTHER, SELFPAY ==
[2022-05-04 13:26] VITALS: BP 156/68; PULSE 61
== END 2022-06-17 11:13 | disposition home or self-care (01) ==
LOC: HO.PT 11:30
PROVIDERS: Visit Provider Emergency Medicine
DX: H81.12 Benign paroxysmal vertigo, left ear (principal)
CPT/HCPCS: 95992; 97140; 97162

== ENCOUNTER 2022-06-08 12:31 | Outpatient (REF) | payer OTHER, SELFPAY ==
--- NOTE | 2022-06-08 17:45 | PFT_ITS ---
FLOWS: FEV1 62% of predicted at 1.37 L. FVC 56% of predicted at 1.59 L. FEV1 to FVC ratio of 0.86. No bronchodilator response. LUNG VOLUMES: Total lung capacity 68% of predicted at 3.36 L. Residual volume 69% of predicted at 1.49 L. Slow vital capacity 67% of predicted at 1.87 L. Expiratory reserve volume 18% of predicted at 0.12 L. Diffusion capacity is mildly decreased, diffusion capacity corrects to be in normal after adjustment for alveolar ventilation. IMPRESSION: Moderate restrictive ventilatory defect with no bronchodilator response. Decreased expiratory reserve volume suggests extrathoracic restriction likely secondary to abdominal obesity. Earnest Baum MD AP/MODL / [id number]
== END 2022-06-08 12:32 | disposition home or self-care (01) ==
LOC: HO.RESP 12:31
PROVIDERS: PCP Internal Medicine; Visit Provider Internal Medicine
DX: J44.9 Chronic obstructive pulmonary disease, unspecified (principal); J30.9 Allergic rhinitis, unspecified
CPT/HCPCS: 94060; 94727; 94729

== ENCOUNTER 2022-06-11 08:37 | Day surgery (SDC) | payer OTHER, SELFPAY ==
--- NOTE | 2022-06-10 10:26 | HO.ANESPROP2 ---
Documented by User: Eva Strong NP 06/10/22 10:27 HPI - Anesthesia Eval Consult details Narrative: 72yo F for Colonoscopy PMFSH Active Problems Active Problems: All Active Problems (Updated 06/04/22 @ 15:03 by Hetal Mcdonald, RN) Tubular adenoma of colon (Acute) Abnormal mammogram of right breast (Acute) Past Medical History Medical History (Updated 06/04/22 @ 15:03 by Hetal Mcdonald, RN) Allergic rhinitis Anemia Angina pectoris Anxiety CAD (coronary artery disease) CKD (chronic kidney disease), stage III COPD (chronic obstructive pulmonary disease) Edema Fatty liver GERD (gastroesophageal reflux disease) Gout HTN (hypertension) Morbid obesity Myocardial infarction On beta prashant at home ZOEY treated with BiPAP Osteoarthritis Osteopenia Osteoporosis Panic attacks Pre-diabetes PVD (peripheral vascular disease) Rheumatoid arthritis Schizophrenia Family History Family History (Updated 05/13/22 @ 09:21 by CRYSTAL Workman) Mother Leukemia Brother Colon cancer Brother Leukemia Sister Breast cancer Sister Vaginal cancer Sister Breast cancer Sister Breast cancer Surgical History Surgical History (Updated 06/04/22 @ 14:51 by Hetal Mcdonald RN) History of bladder suspension procedure History of esophagogastroduodenoscopy (EGD) History of hysterectomy History of lumpectomy of right breast History of tubal ligation Hx of colonoscopy Social History Social History Alcohol intake: never Patient Tobacco Use Status: Never used Tobacco Use of substances other than those prescribed or required for medical reasons: No Are you DNR?: No Advance Directives: No Advance Directives Information Provided: Yes Nutrition Risks: No Nutritional Risk Meds Allergies Allergy/AdvReac Type Severity Reaction Status Date / Time peanut [PEANUT] Allergy Severe ITCHY, Verified 06/04/22 14:32 SWELLING seafood Allergy Severe Rash Verified 06/04/22 14:32 tomato [TOMATO] Allergy Severe ITCHY, Verified 06/04/22 14:32 SWELLING aspirin [ASA] Allergy Intermediate ITCHY,ANXIOUS, Verified 06/04/22 14:32 itching, rash Iodinated Contrast Media Allergy Intermediate HIVES Verified 06/04/22 14:32 [IV CONTRAST] plantain [PLANTAIN] Allergy Intermediate ITCHY/SWELL Verified 06/04/22 14:32 ING Home Medications Medication Instructions Recorded Confirmed Last Taken Type allopurinol 100 mg tablet 100 mg PO QAM 10/01/20 06/04/22 Unknown History amlodipine 10 mg tablet 10 mg PO DAILY 10/01/20 06/04/22 06/11/22 History atorvastatin 80 mg tablet 80 mg PO DAILY 10/01/20 06/04/22 Unknown History blood sugar diagnostic #10 ea 10/01/20 05/13/22 Unknown History brimonidine 0.2 % eye drops drp ophthalmic (eye) ONCE 10/01/20 05/13/22 Unknown History calcium carbonate 600 mg-vitamin 1 tab PO BID 10/01/20 06/04/22 Unknown History D3 10 mcg (400 unit) tablet carbamide peroxide 6.5 % ear drops 2 drp otic (ears) DAILY PRN 10/01/20 06/04/22 Unknown History headache diclofenac sodium 1 % topical gel topical 10/01/20 05/13/22 Unknown History dicyclomine 20 mg tablet 20 mg PO QID 10/01/20 06/04/22 Unknown History ferrous sulfate 325 mg (65 mg 325 mg PO QAM 10/01/20 06/04/22 Unknown History iron) tablet fexofenadine 180 mg tablet 180 mg PO QAM 10/01/20 06/04/22 Unknown History fluticasone propionate 50 intranasal 10/01/20 05/13/22 Unknown History mcg/actuation nasal spray,suspension hydrochlorothiazide 25 mg tablet 25 mg PO DAILY 10/01/20 05/13/22 Unknown History indomethacin 50 mg capsule 50 mg PO TID PRN gout pain 10/01/20 06/04/22 Unknown History inhalational spacing device #1 ea 10/01/20 05/13/22 Unknown History lancets 33 gauge #100 ea 10/01/20 05/13/22 Unknown History latanoprost 0.005 % eye drops 1 drp ophthalmic (eye) BEDTIME 10/01/20 06/04/22 Unknown History lidocaine 5 % topical ointment topical 10/01/20 05/13/22 Unknown History metoprolol succinate 50 mg 50 mg PO DAILY 10/01/20 06/04/22 06/11/22 History tablet,extended release 24 hr pantoprazole 40 mg tablet,delayed 40 mg PO DAILY 10/01/20 06/04/22 06/11/22 History release perphenazine 4 mg tablet 4 mg PO 10/01/20 05/13/22 Unknown History potassium chloride 10 mEq 10 meq PO DAILY 10/01/20 06/04/22 Unknown History tablet,extended release sucralfate 1 gram tablet 2 g PO DAILY 10/01/20 06/04/22 Unknown History triamcinolone acetonide 0.1 % 1 applic topical BID 10/01/20 06/04/22 Unknown History topical cream albuterol sulfate 2.5 mg/3 mL 2.5 mg inhalation Q4-6H PRN 05/05/22 06/04/22 Unknown History (0.083 %) solution for nebulization Wheezing meclizine 25 mg tablet 25 mg PO TID PRN dizziness 05/12/22 06/04/22 Unknown History gabapentin 300 mg capsule 300 mg PO BID 05/13/22 06/04/22 06/11/22 History hydrochlorothiazide 12.5 mg tablet 12.5 mg PO QAM 05/13/22 06/04/22 Unknown History losartan 100 mg tablet 100 mg PO QAM 05/13/22 06/04/22 Unknown History melatonin 1 mg tablet 1 mg PO BEDTIME PRN insomnia 05/13/22 06/04/22 Unknown History olanzapine 15 mg tablet 15 mg PO BEDTIME 05/13/22 06/04/22 Unknown History sertraline 50 mg tablet 50 mg PO QAM 05/13/22 06/04/22 06/11/22 History Exam Exam Date and Time: June 10, 2022 1026 Pertinent Lab Results Pertinent Lab Results: Laboratory Tests 05/04/22 05/04/22 14:10 14:10 WBC 8.4 Hgb 12.4 Hct 38.3 Plt Count 303 Sodium 143 Potassium 4.3 Chloride 104 Carbon Dioxide 30 H BUN 29 H Creatinine 1.19 Narrative Narrative: PFT 05/2022 IMPRESSION:? Moderate restrictive ventilatory defect with no bronchodilator response. Decreased expiratory reserve volume suggests extrathoracic restriction likely secondary to abdominal obesity. Assessment and Plan Assessment Anesthesia Assessment: Chart Reviewed Documented by User: Bubba Das MD 06/11/22 11:02 [facility] Past Medical History Medical History (Updated 06/04/22 @ 15:03 by Hetal Mcdonald, RN) Allergic rhinitis Anemia Angina pectoris Anxiety CAD (coronary artery disease) CKD (chronic kidney disease), stage III COPD (chronic obstructive pulmonary disease) Edema Fatty liver GERD (gastroesophageal reflux disease) Gout HTN (hypertension) Morbid obesity Myocardial infarction On beta prashant at home ZOEY treated with BiPAP Osteoarthritis Osteopenia Osteoporosis Panic attacks Pre-diabetes PVD (peripheral vascular disease) Rheumatoid arthritis Schizophrenia Family History Family History (Updated 05/13/22 @ 09:21 by CRYSTAL Workman) Mother Leukemia Brother Colon cancer Brother Leukemia Sister Breast cancer Sister Vaginal cancer Sister Breast cancer Sister Breast cancer Family history of problems with anesthesia: No Surgical History Surgical History (Updated 06/04/22 @ 14:51 by Hetal Mcdonald RN) History of bladder suspension procedure History of esophagogastroduodenoscopy (EGD) History of hysterectomy History of lumpectomy of right breast History of tubal ligation Hx of colonoscopy History of Problems with Anesthesia: No Social History Social History Alcohol intake: never Patient Tobacco Use Status: Never used Tobacco Use of substances other than those prescribed or required for medical reasons: No Are you DNR?: No Advance Directives: No Advance Directives Information Provided: Yes Nutrition Risks: No Nutritional Risk Meds Allergies Allergy/AdvReac Type Severity Reaction Status Date / Time peanut [PEANUT] Allergy Severe ITCHY, Verified 06/04/22 14:32 SWELLING seafood Allergy Severe Rash Verified 06/04/22 14:32 tomato [TOMATO] Allergy Severe ITCHY, Verified 06/04/22 14:32 SWELLING aspirin [ASA] Allergy Intermediate ITCHY,ANXIOUS, Verified 06/04/22 14:32 itching, rash Iodinated Contrast Media Allergy Intermediate HIVES Verified 06/04/22 14:32 [IV CONTRAST] plantain [PLANTAIN] Allergy Intermediate ITCHY/SWELL Verified 06/04/22 14:32 ING Home Medications Medication Instructions Recorded Confirmed Last Taken Type allopurinol 100 mg tablet 100 mg PO QAM 10/01/20 06/04/22 Unknown History amlodipine 10 mg tablet 10 mg PO DAILY 10/01/20 06/04/22 06/11/22 History atorvastatin 80 mg tablet 80 mg PO DAILY 10/01/20 06/04/22 Unknown History blood sugar diagnostic #10 ea 10/01/20 05/13/22 Unknown History brimonidine 0.2 % eye drops drp ophthalmic (eye) ONCE 10/01/20 05/13/22 Unknown History calcium carbonate 600 mg-vitamin 1 tab PO BID 10/01/20 06/04/22 Unknown History D3 10 mcg (400 unit) tablet carbamide peroxide 6.5 % ear drops 2 drp otic (ears) DAILY PRN 10/01/20 06/04/22 Unknown History headache diclofenac sodium 1 % topical gel topical 10/01/20 05/13/22 Unknown History dicyclomine 20 mg tablet 20 mg PO QID 10/01/20 06/04/22 Unknown History ferrous sulfate 325 mg (65 mg 325 mg PO QAM 10/01/20 06/04/22 Unknown History iron) tablet fexofenadine 180 mg tablet 180 mg PO QAM 10/01/20 06/04/22 Unknown History fluticasone propionate 50 intranasal 10/01/20 05/13/22 Unknown History mcg/actuation nasal spray,suspension hydrochlorothiazide 25 mg tablet 25 mg PO DAILY 10/01/20 05/13/22 Unknown History indomethacin 50 mg capsule 50 mg PO TID PRN gout pain 10/01/20 06/04/22 Unknown History inhalational spacing device #1 ea 10/01/20 05/13/22 Unknown History lancets 33 gauge #100 ea 10/01/20 05/13/22 Unknown History latanoprost 0.005 % eye drops 1 drp ophthalmic (eye) BEDTIME 10/01/20 06/04/22 Unknown History lidocaine 5 % topical ointment topical 10/01/20 05/13/22 Unknown History metoprolol succinate 50 mg 50 mg PO DAILY 10/01/20 06/04/22 06/11/22 History tablet,extended release 24 hr pantoprazole 40 mg tablet,delayed 40 mg PO DAILY 10/01/20 06/04/22 06/11/22 History release perphenazine 4 mg tablet 4 mg PO 10/01/20 05/13/22 Unknown History potassium chloride 10 mEq 10 meq PO DAILY 10/01/20 06/04/22 Unknown History tablet,extended release sucralfate 1 gram tablet 2 g PO DAILY 10/01/20 06/04/22 Unknown History triamcinolone acetonide 0.1 % 1 applic topical BID 10/01/20 06/04/22 Unknown History topical cream albuterol sulfate 2.5 mg/3 mL 2.5 mg inhalation Q4-6H PRN 05/05/22 06/04/22 Unknown History (0.083 %) solution for nebulization Wheezing meclizine 25 mg tablet 25 mg PO TID PRN dizziness 05/12/22 06/04/22 Unknown History gabapentin 300 mg capsule 300 mg PO BID 05/13/22 06/04/22 06/11/22 History hydrochlorothiazide 12.5 mg tablet 12.5 mg PO QAM 05/13/22 06/04/22 Unknown History losartan 100 mg tablet 100 mg PO QAM 05/13/22 06/04/22 Unknown History melatonin 1 mg tablet 1 mg PO BEDTIME PRN insomnia 05/13/22 06/04/22 Unknown History olanzapine 15 mg tablet 15 mg PO BEDTIME 05/13/22 06/04/22 Unknown History sertraline 50 mg tablet 50 mg PO QAM 05/13/22 06/04/22 06/11/22 History Exam Airway Mallampati Class: II TM Dist: >3cm Neck ROM: Full Loose/Missing/Broken Teeth: No Heart: hx AL Lungs: SOB, restrict lung dz. Assessment and Plan Assessment Anesthesia Assessment: Anesthesia Plan Discussed and Chart Reviewed Final Anesthetic Review Family History of Problems with Anesthesia: No History of Problems with Anesthesia: No NPO: Yes ASA Class: IV Final Preanesthetic Review: No Changes in Pt Med Stat, Meds/Allgs Chart Reviewed, Consent Obtained/Reviewed and Anes Risks/Benef Reviewed Patient Risk: High Procedure Risk: Low Anesthetic Plan Anesthetic Plan: MAC: and Agree w/ Assess. and Plan Disposition: Standard PACU
[2022-06-11 09:15] VITALS: BMI 44.2
[2022-06-11 09:28] VITALS: BP 148/64; PULSE 72; RESP 20; TEMP 37; O2SAT 94
[2022-06-11] MEDS: Lactated Ringers 1,000 ML 100 ML IVCONT (09:42)
--- NOTE | 2022-06-11 10:39 | MHC.SHP ---
Pre-Procedural Eval Section A Date of Service: 06/11/22 The patient is an INPATIENT: No Changes since office visit: No Cold of Flu in the past 2 weeks, No New Medical Problems, No Changes in Medication and No Patient answered all questions The History & Physical has been completed within 30 days and I have reviewed it.: Yes Section B Chief Complaint: neoplasm of colon Allergies: Allergies Allergy/AdvReac Type Severity Reaction Status Date / Time peanut [PEANUT] Allergy Severe ITCHY, Verified 06/04/22 14:32 SWELLING seafood Allergy Severe Rash Verified 06/04/22 14:32 tomato [TOMATO] Allergy Severe ITCHY, Verified 06/04/22 14:32 SWELLING aspirin [ASA] Allergy Intermediate ITCHY,ANXIOUS, Verified 06/04/22 14:32 itching, rash Iodinated Contrast Media Allergy Intermediate HIVES Verified 06/04/22 14:32 [IV CONTRAST] plantain [PLANTAIN] Allergy Intermediate ITCHY/SWELL Verified 06/04/22 14:32 ING Plan I have reviewed the history and physical and performed a pertinent physical examination on my patient. No changes have occurred unless specified.
--- NOTE | 2022-06-11 11:27 | W.PM.OPN ---
Operative Note Operative Note Date of Service: 06/11/22 Narrative: preop diagnosis: Known tubular adenoma Postop diagnosis: 1.Large multilobular polyp, about 3 cm, at the splenic flexure 2.internal and external hemorrhoids 3.diverticulosis at the sigmoid Procedure: Colonoscopy abiopsy of polyp using cold forceps surgeon: Brice Manzano Patient is 72-year-old female, has been known to have a large polyp at the area of the splenic flexure. I had recommended for resection in the past because of this large tubular adenoma. We had attempted to remove this with aortic colonoscopy before. She did not want to proceed with resection. I had not seen her in more than 2 years . She came to the office and says she was interested again in having his section She understood technique of colonoscopy. She was aware of the risks, benefits, and alternatives. She was brought to the operating room and placed in left lateral decubitus position under monitored anesthesia care. Full surgical time-out was done. A digital rectal exam was done. She did have some oval hemorrhoids. The tip of the Olympus colonoscope was gently introduced and advanced with insufflation all the cecum. The cecum was intubated. The cecum identified by visualization of the ileocecal valve as well as the appendiceal orifice. The cecal mucosa was unremarkable. The scope was gradually withdrawn with careful examination of the entire colonic mucosa being done with scope withdrawal. The patient had good bowel prep so it was unlikely that any lesion may have been missed. Again, at the area of the splenic flexure was note of a large polyp, multi lobulated. This probably was about more than 3 cm in size. There were note of tattoo marking surrounding this from her previous colonoscopies. I did biopsies of this polyp using the cold forceps I withdrew the scope. There was note of mild diverticulosis the sigmoid. The rectum was reach per there were no lesions seen. The anal canal was unremarkable except for internal external voids. The scope was then withdrawn completely with desufflation . The patient tolerated procedure well. There were no complication noted. I will see in the office to discuss her options at this point.
[2022-06-11 11:37] VITALS: BP 120/37; PULSE 63; RESP 18; TEMP 36.6; O2SAT 95
[2022-06-11 11:52] VITALS: BP 120/37; PULSE 63; RESP 18; TEMP 36.6; O2SAT 95
[2022-06-11 12:01] VITALS: BP 138/55; PULSE 60; RESP 16; TEMP 36.6; O2SAT 97
== END 2022-06-11 13:45 | disposition home or self-care (01) ==
PROVIDERS: PCP Internal Medicine; Visit Provider Surgery
PROC: 0DJD8ZZ Inspection of Lower Intestinal Tract, Via Natural or Artificial Opening Endoscopic (ICD-10-PCS; CPT 45378; principal; 2022-06-11 10:20)
DX: D12.3 Benign neoplasm of transverse colon (principal); R10.31 Right lower quadrant pain; Z86.010 Personal history of colon polyps; K57.30 Diverticulosis of large intestine without perforation or abscess without bleeding; K64.8 Other hemorrhoids; J44.9 Chronic obstructive pulmonary disease, unspecified; E66.01 Morbid (severe) obesity due to excess calories; Z68.41 Body mass index [BMI] 40.0-44.9, adult; G47.33 Obstructive sleep apnea (adult) (pediatric); J30.9 Allergic rhinitis, unspecified; I25.10 Atherosclerotic heart disease of native coronary artery without angina pectoris; I12.9 Hypertensive chronic kidney disease with stage 1 through stage 4 chronic kidney disease, or unspecified chronic kidney disease; I25.2 Old myocardial infarction; N18.30 Chronic kidney disease, stage 3 unspecified; D64.9 Anemia, unspecified; M81.0 Age-related osteoporosis without current pathological fracture; M19.90 Unspecified osteoarthritis, unspecified site; R26.2 Difficulty in walking, not elsewhere classified; I73.9 Peripheral vascular disease, unspecified; Z79.899 Other long term (current) drug therapy; Z79.51 Long term (current) use of inhaled steroids; Z91.041 Radiographic dye allergy status; Z88.8 Allergy status to other drugs, medicaments and biological substances
CPT/HCPCS: 45380; 88305

== ENCOUNTER → 2022-06-15 12:55 | Outpatient (BNVA) | payer OTHER, SELFPAY | PROVIDERS: PCP Internal Medicine; Visit Provider Surgery | DX: R92.8 Other abnormal and inconclusive findings on diagnostic imaging of breast (principal) | CPT/HCPCS: 99212 ==

== ENCOUNTER → 2022-06-16 13:00 | Outpatient (BNVA) | payer OTHER, SELFPAY | PROVIDERS: PCP Internal Medicine; Visit Provider Nurse Practitioner Family | DX: M54.16 Radiculopathy, lumbar region (principal); M53.3 Sacrococcygeal disorders, not elsewhere classified; M47.816 Spondylosis without myelopathy or radiculopathy, lumbar region | CPT/HCPCS: 99202 ==

== ENCOUNTER 2022-06-21 08:29 | Day surgery (SDC) | payer OTHER, SELFPAY ==
--- NOTE | 2022-06-18 09:04 | HO.ANESPROP2 ---
Documented by User: Eva Strong NP 06/18/22 09:05 HPI - Anesthesia Eval Consult details Narrative: 72yo F for Right Breast Lumpectomy/Needle Loc Stable at 04/2022 cardiac visit. (Losartan increased) PMFSH Active Problems Active Problems: All Active Problems (Updated 06/16/22 @ 14:44 by Mandie Crespo NP) Osteoporosis (Acute) Spondylosis of lumbar spine (Acute) Sacroiliac joint pain (Acute) Lumbar radiculopathy (Acute) Tubular adenoma of colon (Acute) Abnormal mammogram of right breast (Acute) Past Medical History Medical History (Updated 06/16/22 @ 14:44 by Mandie Crespo NP) Allergic rhinitis Anemia Angina pectoris Anxiety CAD (coronary artery disease) CKD (chronic kidney disease), stage III COPD (chronic obstructive pulmonary disease) Edema Fatty liver GERD (gastroesophageal reflux disease) Gout HTN (hypertension) Morbid obesity Myocardial infarction On beta prashant at home ZOEY treated with BiPAP Osteoarthritis Osteopenia Osteoporosis Panic attacks Pre-diabetes PVD (peripheral vascular disease) Rheumatoid arthritis Schizophrenia Family History Family History Mother Leukemia Brother Colon cancer Brother Leukemia Sister Breast cancer Sister Vaginal cancer Sister Breast cancer Sister Breast cancer Family history of problems with anesthesia: No Surgical History Surgical History History of bladder suspension procedure History of esophagogastroduodenoscopy (EGD) History of hysterectomy History of lumpectomy of right breast History of tubal ligation Hx of colonoscopy History of Problems with Anesthesia: No Social History Social History Alcohol intake: never Patient Tobacco Use Status: Never used Tobacco Second Hand Smoke Exposure: No Use of substances other than those prescribed or required for medical reasons: No Are you DNR?: No Advance Directives: No Advance Directives Information Provided: Yes Advance Directives on File: No Meds Allergies Allergy/AdvReac Type Severity Reaction Status Date / Time peanut [PEANUT] Allergy Severe ITCHY, Verified 06/16/22 13:01 SWELLING seafood Allergy Severe Rash Verified 06/16/22 13:01 tomato [TOMATO] Allergy Severe ITCHY, Verified 06/16/22 13:01 SWELLING aspirin [ASA] Allergy Intermediate ITCHY,ANXIOUS, Verified 06/16/22 13:01 itching, rash Iodinated Contrast Media Allergy Intermediate HIVES Verified 06/16/22 13:01 [IV CONTRAST] plantain [PLANTAIN] Allergy Intermediate ITCHY/SWELL Verified 06/16/22 13:01 ING Home Medications Medication Instructions Recorded Confirmed Last Taken Type allopurinol 100 mg tablet 100 mg PO QAM 10/01/20 06/16/22 Unknown History atorvastatin 80 mg tablet 80 mg PO DAILY 10/01/20 06/16/22 Unknown History blood sugar diagnostic #10 ea 10/01/20 06/15/22 Unknown History brimonidine 0.2 % eye drops drp ophthalmic (eye) ONCE 10/01/20 06/16/22 Unknown History calcium carbonate 600 mg-vitamin 1 tab PO BID 10/01/20 06/16/22 Unknown History D3 10 mcg (400 unit) tablet ferrous sulfate 325 mg (65 mg 325 mg PO QAM 10/01/20 06/16/22 Unknown History iron) tablet fexofenadine 180 mg tablet 180 mg PO QAM 10/01/20 06/16/22 Unknown History inhalational spacing device #1 ea 10/01/20 06/15/22 Unknown History lancets 33 gauge #100 ea 10/01/20 06/15/22 Unknown History latanoprost 0.005 % eye drops 1 drp ophthalmic (eye) BEDTIME 10/01/20 06/16/22 Unknown History metoprolol succinate 50 mg 50 mg PO DAILY 10/01/20 06/16/22 06/11/22 History tablet,extended release 24 hr pantoprazole 40 mg tablet,delayed 40 mg PO DAILY 10/01/20 06/16/22 06/11/22 History release albuterol sulfate 2.5 mg/3 mL 2.5 mg inhalation Q4-6H PRN 05/05/22 06/16/22 Unknown History (0.083 %) solution for nebulization Wheezing gabapentin 300 mg capsule 300 mg PO BID 05/13/22 06/16/22 06/11/22 History hydrochlorothiazide 12.5 mg tablet 12.5 mg PO QAM 05/13/22 06/16/22 Unknown History losartan 100 mg tablet 100 mg PO QAM 05/13/22 06/16/22 Unknown History olanzapine 15 mg tablet 15 mg PO BEDTIME 05/13/22 06/16/22 Unknown History sertraline 50 mg tablet 50 mg PO QAM 05/13/22 06/16/22 06/11/22 History sertraline 100 mg tablet 100 mg PO DAILY 06/16/22 06/16/22 Unknown History Exam Exam Date and Time: June 18, 2022 0904 Pertinent Lab Results Pertinent Lab Results: Laboratory Tests 05/04/22 05/04/22 14:10 14:10 WBC 8.4 Hgb 12.4 Hct 38.3 Plt Count 303 Sodium 143 Potassium 4.3 Chloride 104 Carbon Dioxide 30 H BUN 29 H Creatinine 1.19 Narrative Narrative: PFT 05/2022 IMPRESSION:? Moderate restrictive ventilatory defect with no bronchodilator response. Decreased expiratory reserve volume suggests extrathoracic restriction likely secondary to abdominal obesity. Assessment and Plan Assessment Anesthesia Assessment: Chart Reviewed Final Anesthetic Review Family History of Problems with Anesthesia: No History of Problems with Anesthesia: No Documented by User: Matilde Paulino MD 06/21/22 13:46 PMFSH Active Problems Active Problems: All Active Problems (Updated 06/16/22 @ 14:44 by Mandie Crespo NP) Osteoporosis (Acute) Spondylosis of lumbar spine (Acute) Sacroiliac joint pain (Acute) Lumbar radiculopathy (Acute) Tubular adenoma of colon (Acute) Abnormal mammogram of right breast (Acute) ?Asthma (per patient) Hyperlipidemia ZOEY. Uses CPAP daily. 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 Past Medical History Medical History (Updated 06/16/22 @ 14:44 by Mandie Crespo NP) Allergic rhinitis Anemia Angina pectoris Anxiety CAD (coronary artery disease) CKD (chronic kidney disease), stage III COPD (chronic obstructive pulmonary disease) Edema Fatty liver GERD (gastroesophageal reflux disease) Gout HTN (hypertension) Morbid obesity Myocardial infarction On beta prashant at home ZOEY treated with BiPAP Osteoarthritis Osteopenia Osteoporosis Panic attacks Pre-diabetes PVD (peripheral vascular disease) Rheumatoid arthritis Schizophrenia Family History Family History Mother Leukemia Brother Colon cancer Brother Leukemia Sister Breast cancer Sister Vaginal cancer Sister Breast cancer Sister Breast cancer Surgical History Surgical History History of bladder suspension procedure History of esophagogastroduodenoscopy (EGD) History of hysterectomy History of lumpectomy of right breast History of tubal ligation Hx of colonoscopy Social History Social History Alcohol intake: never Patient Tobacco Use Status: Never used Tobacco Second Hand Smoke Exposure: No Use of substances other than those prescribed or required for medical reasons: No Are you DNR?: No Advance Directives: No Advance Directives Information Provided: Yes Advance Directives on File: No Meds Allergies Allergy/AdvReac Type Severity Reaction Status Date / Time peanut [PEANUT] Allergy Severe ITCHY, Verified 06/16/22 13:01 SWELLING seafood Allergy Severe Rash Verified 06/16/22 13:01 tomato [TOMATO] Allergy Severe ITCHY, Verified 06/16/22 13:01 SWELLING aspirin [ASA] Allergy Intermediate ITCHY,ANXIOUS, Verified 06/16/22 13:01 itching, rash Iodinated Contrast Media Allergy Intermediate HIVES Verified 06/16/22 13:01 [IV CONTRAST] plantain [PLANTAIN] Allergy Intermediate ITCHY/SWELL Verified 06/16/22 13:01 ING Home Medications Medication Instructions Recorded Confirmed Last Taken Type allopurinol 100 mg tablet 100 mg PO QAM 10/01/20 06/16/22 Unknown History atorvastatin 80 mg tablet 80 mg PO DAILY 10/01/20 06/16/22 Unknown History blood sugar diagnostic #10 ea 10/01/20 06/15/22 Unknown History brimonidine 0.2 % eye drops drp ophthalmic (eye) ONCE 10/01/20 06/16/22 Unknown History calcium carbonate 600 mg-vitamin 1 tab PO BID 10/01/20 06/16/22 Unknown History D3 10 mcg (400 unit) tablet ferrous sulfate 325 mg (65 mg 325 mg PO QAM 10/01/20 06/16/22 Unknown History iron) tablet fexofenadine 180 mg tablet 180 mg PO QAM 10/01/20 06/16/22 Unknown History inhalational spacing device #1 ea 10/01/20 06/15/22 Unknown History lancets 33 gauge #100 ea 10/01/20 06/15/22 Unknown History latanoprost 0.005 % eye drops 1 drp ophthalmic (eye) BEDTIME 10/01/20 06/16/22 Unknown History metoprolol succinate 50 mg 50 mg PO DAILY 10/01/20 06/16/22 06/11/22 History tablet,extended release 24 hr pantoprazole 40 mg tablet,delayed 40 mg PO DAILY 10/01/20 06/16/22 06/11/22 History release albuterol sulfate 2.5 mg/3 mL 2.5 mg inhalation Q4-6H PRN 05/05/22 06/16/22 Unknown History (0.083 %) solution for nebulization Wheezing gabapentin 300 mg capsule 300 mg PO BID 05/13/22 06/16/22 06/11/22 History hydrochlorothiazide 12.5 mg tablet 12.5 mg PO QAM 05/13/22 06/16/22 Unknown History losartan 100 mg tablet 100 mg PO QAM 05/13/22 06/16/22 Unknown History olanzapine 15 mg tablet 15 mg PO BEDTIME 05/13/22 06/16/22 Unknown History sertraline 50 mg tablet 50 mg PO QAM 05/13/22 06/16/22 06/11/22 History sertraline 100 mg tablet 100 mg PO DAILY 06/16/22 06/16/22 Unknown History Exam Height,Weight and Vital Signs: Height 5 ft 5 in Weight 122.016 kg Vital Signs Temp Pulse Resp BP Pulse Ox O2 Del Method 98.1 F 68 18 139/70 94 06/21/22 08:53 06/21/22 08:53 06/21/22 08:53 06/21/22 08:53 06/21/22 08:53 06/21/22 08:53 Airway Mallampati Class: III TM Dist: >3cm Neck ROM: Full Loose/Missing/Broken Teeth: Yes (Broken top right) Heart: RRR Lungs: Very diminished ?Clear Assessment and Plan Assessment Anesthesia Assessment: Anesthesia Plan Discussed Final Anesthetic Review NPO: Yes ASA Class: III Final Preanesthetic Review: No Changes in Pt Med Stat, Meds/Allgs Chart Reviewed, Consent Obtained/Reviewed and Anes Risks/Benef Reviewed Patient Risk: Intermediate Procedure Risk: Intermediate Assessment/Block/Sedation in SS: Assess/Block/Sedation-SS Anesthetic Plan Anesthetic Plan: GA Disposition: Standard PACU
[2022-06-21] VITALS (7 sets, daily range): BP systolic 125–175; BP diastolic 49–83; PULSE 68–96; RESP 16–18; TEMP 36.3–36.7; O2SAT 94–98; BMI 44.7
--- NOTE | ~2022-06-21 | MM_ITS ---
EXAMINATION: MM MAMMOGRAM GUIDED NEEDLE LOCALIZATION BREAST, RIGHT MM NEEDLE LOCALIZATION SPECIMEN FROM THE RIGHT BREAST CLINICAL INFORMATION: Loosely grouped heterogeneous coarse calcifications posterior medial right breast, possibly fibroadenomatous change. Family history breast cancer, 2 sisters. Attempt at stereotactic biopsy at outside facility aborted due to inability to obtain stereo pair and patient motion. COMPARISON: Outside stereotactic targeting report 06/08/2022 ([place]); mammography 05/11/2022, 04/27/2022, 02/05/2019. TECHNIQUE NEEDLE LOC: Hospital provided rubber compounder supervisor assisted for the consent and during portion of the procedure. Proper informed consent is obtained from the patient after discussion of the procedure, potential risks and complications, and alternatives including declining the procedure today. Patient was given an opportunity for questions. The patient appeared to understand. The patient consented to the procedure and signed the consent form. GUIDANCE: Digital mammography. APPROACH: MLO. TARGET: Loosely grouped heterogeneous coarse calcifications posterior medial right breast. ANESTHESIA: Carbonated lidocaine 1%: 5 mL. LOCALIZATION MARKER: [place] [employer]. 10 cm length. The skin is prepped and local anesthesia administered. The needle is positioned and position assessed with mammography. The wire is hooked into position. [place] needle protector placed. The patient tolerated the procedure well and had no immediate complication. Procedure results called and discussed with Dr. Pulido prior to surgery. TECHNIQUE SPECIMEN RADIOGRAPH: Imaging of the excised specimen is performed using digital mammography in 1 view. FINDINGS SPECIMEN RADIOGRAPH: The specimen shows the distal needle and distal hookwire are delivered intact. The calcifications for biopsy are in the specimen residing adjacent to the localization needle. Results were called to Dr. Eddie Pulido in the operating room at the time of imaging. MM/MM needle loc RT IMPRESSION: 1. Status post right breast needle localization with wire hooked into position. 2. Post operative specimen radiograph obtained.
[2022-06-21] MEDS: Lactated Ringers 1,000 ML 100 ML IVCONT (09:02)
[2022-06-21] MEDS: Lidocaine HCl 1 % 20 ML VIAL 5 ML SUBCUT (11:31)
[2022-06-21] MEDS: Sodium Bicarbonate 8.4% 50 MEQ/50 ML VIAL SUBCUT (11:32)
--- NOTE | 2022-06-21 14:14 | W.PM.OPN ---
Operative Note Operative Note Date of Service: 06/21/22 Narrative: Preoperative diagnosis: abnormal mammogram right breast Postoperative diagnosis: same Procedure: right breast lumpectomy with needle localization Surgeon: Eddie Pulido MD [place] Worker: Khushi Brandon PA-C, KRZYSZTOF [place] Anesthesia:General LMA Indications for procedure: 72-year-old female patient presenting with area of calcification in the right breast at the upper outer quadrant felt to be suspicious for malignancy. Attempts stereotactic biopsy were unsuccessful given its location therefore she presents now for right breast lumpectomy with needle localization. Operative findings: Specimen x-ray confirmed the area of calcification within the specimen. Specimen: Right breast lumpectomy Estimated blood loss: 5 mL Complications: none Procedure details: the patient was brought to the OR and placed in a supine position. After administering general anesthesia the patient's right breast was prepped with ChloraPrep and draped sterile fashion. A surgical time-out was called the consent confirmed. Patient received preoperative antibiotics and Venodyne boots were in place. Local anesthesia consisting of 0.5% Sensorcaine was then infiltrated in a radial fashion in the upper inner quadrant of the right breast. Incision was then made with a scalpel carried out through subcutaneous tissue. Superior inferior skin flaps were then created with electrocautery. A core of tissue around the localizing needle was then obtained using combination of sharp dissection and electrocautery dissection. Hemostasis was assured using electrocautery. Specimen was sent to pathology for further examination. Margins were marked with long suture on the lateral margin short suture on the superior margin and loop suture in the posterior margin. Once the specimen was removed wounds were checked for hemostasis, irrigated with saline solution and suctioned dry. After confirmation of the specimen x-ray containing calcifications similar to the preop mammogram, deep breast tissue was closed using interrupted 3-0 Polysorb sutures. Superficial breast tissue was closed using interrupted 3-0 Polysorb sutures. Dermis was closed using interrupted 3-0 Polysorb sutures. Skin was then closed using a running subcuticular 4-0 Polysorb suture. Steri-Strips, 2 x 2 gauze and Tegaderm were then applied. The patient tolerated the procedure well. Sponge, instrument, and needle counts reported as correct. Patient was transferred to PACU in stable condition.
--- NOTE | 2022-06-21 14:19 | MHC.SHP ---
Pre-Procedural Eval Section A Date of Service: 06/21/22 The patient is an INPATIENT: No Changes since office visit: Yes Patient answered all questions; No Cold of Flu in the past 2 weeks, No New Medical Problems and No Changes in Medication The History & Physical has been completed within 30 days and I have reviewed it.: Yes Section B Chief Complaint: abnormal findings of RT breast Allergies: Allergies Allergy/AdvReac Type Severity Reaction Status Date / Time peanut [PEANUT] Allergy Severe ITCHY, Verified 06/16/22 13:01 SWELLING seafood Allergy Severe Rash Verified 06/16/22 13:01 tomato [TOMATO] Allergy Severe ITCHY, Verified 06/16/22 13:01 SWELLING aspirin [ASA] Allergy Intermediate ITCHY,ANXIOUS, Verified 06/16/22 13:01 itching, rash Iodinated Contrast Media Allergy Intermediate HIVES Verified 06/16/22 13:01 [IV CONTRAST] plantain [PLANTAIN] Allergy Intermediate ITCHY/SWELL Verified 06/16/22 13:01 ING Plan Diagnosis/Plan: Unchanged I have reviewed the history and physical and performed a pertinent physical examination on my patient. No changes have occurred unless specified.
[2022-06-21] MEDS: Acetaminophen 325 MG TABLET 650 MG PO (15:53)
[2022-06-21] MEDS: oxyCODONE HCl Immed Release 5 MG TABLET PO (15:53)
== END 2022-06-21 16:05 | disposition home or self-care (01) ==
PROVIDERS: PCP Internal Medicine; Visit Provider Surgery
PROC: (CPT 19301; principal; 2022-06-21 11:00)
DX: R92.8 Other abnormal and inconclusive findings on diagnostic imaging of breast (principal); Z80.3 Family history of malignant neoplasm of breast; D64.9 Anemia, unspecified; I12.9 Hypertensive chronic kidney disease with stage 1 through stage 4 chronic kidney disease, or unspecified chronic kidney disease; N18.30 Chronic kidney disease, stage 3 unspecified; R73.03 Prediabetes; I25.119 Atherosclerotic heart disease of native coronary artery with unspecified angina pectoris; I25.2 Old myocardial infarction; J44.9 Chronic obstructive pulmonary disease, unspecified; J30.9 Allergic rhinitis, unspecified; G47.33 Obstructive sleep apnea (adult) (pediatric); E66.01 Morbid (severe) obesity due to excess calories; Z68.41 Body mass index [BMI] 40.0-44.9, adult; M81.0 Age-related osteoporosis without current pathological fracture; M06.9 Rheumatoid arthritis, unspecified; F20.9 Schizophrenia, unspecified; F41.0 Panic disorder [episodic paroxysmal anxiety]; I73.9 Peripheral vascular disease, unspecified; Z79.51 Long term (current) use of inhaled steroids; Z79.899 Other long term (current) drug therapy; Z99.89 Dependence on other enabling machines and devices; Z88.8 Allergy status to other drugs, medicaments and biological substances; Z91.041 Radiographic dye allergy status
CPT/HCPCS: 19301; 19281; 88307; 88329; A4648; J0690; J1100; J2250; J2405; J2795; J3010

== ENCOUNTER → 2022-06-23 11:02 | Outpatient (BNVA) | payer OTHER, SELFPAY | PROVIDERS: PCP Internal Medicine; Visit Provider Physician Assistant Surgical | DX: E66.01 Morbid (severe) obesity due to excess calories (principal); Z68.42 Body mass index [BMI] 45.0-49.9, adult | CPT/HCPCS: 99212; Q3014 ==

== ENCOUNTER 2022-06-25 12:49 | Outpatient (REF) | payer OTHER, SELFPAY ==
--- NOTE | ~2022-06-25 | MM_ITS ---
EXAMINATION: BONE DENSITOMETRY CLINICAL INDICATION: Age-related osteoporosis without current pathological fracture. COMPARISON: Previous BD dated 09/14/2018 and baseline BD dated 05/15/2013. TECHNIQUE: Using a [employer] DXA System (software version: 13.1) manufactured by [employer], dual-energy x-ray absorptiometry was performed of the lumbar spine and left hip. The images are of good technical quality. Summary results are attached. FINDINGS: AP SPINE L1-L2 (excluding L3 and L4): The data of L1-L4 has been changed to exclude the L3 and L4 vertebral bodies, because degenerative changes at these levels may cause overestimation of lumbar spine density. Current: BMD 1.002 g/cm2, Z-score -0.9, T-score -1.4, osteopenia, 2.6% increase from previous, 1.3% increase from baseline (<5% change is not significant). Prior: BMD 0.977 g/cm2. Baseline: BMD 0.989 g/cm2. LEFT FEMUR, NECK: Current: BMD 0.864 g/cm2, Z-score -0.3, T-score -1.2, osteopenia. Prior: BMD 0.918 g/cm2. Baseline: BMD 0.972 g/cm2. LEFT FEMUR, TOTAL: Current: BMD 0.977 g/cm2, Z-score 0.4, T-score -0.2, normal, 0.6% increase from previous, 0.4% increase from baseline (<5% change is not significant). Prior: BMD 0.971 g/cm2. Baseline: BMD 0.973 g/cm2. IDENTIFIED RISK FACTORS: Early menopause, secondary osteoporosis, hysterectomy, bilateral oophorectomy, low calcium intake, osteoporosis, recurrent falls, rheumatoid arthritis, secondary osteoporosis. HISTORY OF FRACTURE: None listed. MEDICATIONS: Calcium supplements or multivitamin, vitamin D. MM/XR DEXA axial skeleton IMPRESSION: 1. DIAGNOSIS: Osteopenia based on the lowest T-score value of -1.4 in the lumbar spine applying World Health Organization criteria. 2. 10-YEAR FRACTURE RISK PREDICTION, FRAX: Major osteoporotic fracture (clinical spine, forearm, hip or shoulder) 5.5%. Hip fracture 0.6%. 3. Treatment Recommendations: NOF guidelines recommend consideration for treatment in postmenopausal women and men age 50 and older presenting with the following: -A hip or vertebral (clinical or morphometric) fracture. -T-score less than or equal to -2.5 at the femoral neck or spine after appropriate evaluation to exclude secondary causes. -Low bone mass at the hip or spine and a 10-year fracture probability by FRAX of greater than or equal to 3% for hip fracture or greater than or equal to 20% for major osteoporotic fracture based on the [place] adapted WHO algorithm. 4. Other Recommendations: All treatment decisions require clinical judgment and consideration of individual patient factors, including patient preferences, comorbidities, previous drug use, risk factors not captured in the FRAX model (e.g. frailty, falls, vitamin D deficiency, increased bone turnover, interval significant decline in bone density) and possible under or overestimation of fracture risk by FRAX. Additional medical evaluation for secondary cause of low bone mineral density may be appropriate. FUTURE SCAN RECOMMENDATION: People with diagnosed cases of osteoporosis or at high risk for fracture should have regular bone mineral density tests. For patients eligible for Medicare, routine testing is allowed once every 2 years. The testing frequency can be increased to one year for patients who have rapidly progressing disease, those who are receiving or discontinuing medical therapy to restore bone mass, or have additional risk factors.
== END 2022-06-25 12:50 | disposition home or self-care (01) ==
LOC: HO.MAMMO 12:49
PROVIDERS: Visit Provider Nurse Practitioner Family
DX: M81.0 Age-related osteoporosis without current pathological fracture (principal)
CPT/HCPCS: 77080

== ENCOUNTER → 2022-06-30 12:38 | Outpatient (BNVA) | payer OTHER, SELFPAY | PROVIDERS: PCP Internal Medicine; Visit Provider Internal Medicine | DX: J44.9 Chronic obstructive pulmonary disease, unspecified (principal); J98.4 Other disorders of lung; J30.9 Allergic rhinitis, unspecified; G47.33 Obstructive sleep apnea (adult) (pediatric); E66.01 Morbid (severe) obesity due to excess calories; Z68.42 Body mass index [BMI] 45.0-49.9, adult; Z79.899 Other long term (current) drug therapy | CPT/HCPCS: 99212 ==

== ENCOUNTER → 2022-07-27 13:03 | Outpatient (BNVA) | payer OTHER, SELFPAY | PROVIDERS: PCP Internal Medicine; Visit Provider Physician Assistant Surgical | DX: E66.01 Morbid (severe) obesity due to excess calories (principal); Z68.43 Body mass index [BMI] 50.0-59.9, adult | CPT/HCPCS: 99212 ==

== ENCOUNTER 2022-08-09 13:21 | Outpatient (REF) | payer OTHER, SELFPAY ==
--- NOTE | ~2022-08-09 | XR_ITS ---
EXAMINATION: XR CHEST CLINICAL INFORMATION: Obesity COMPARISON: Previous x-ray January 2020 TECHNIQUE: 2 views of the chest were obtained. FINDINGS: No significant abnormality is noted involving the heart, lungs, mediastinum, bony thorax or soft tissues. XR/XR chest 2V IMPRESSION: Unremarkable examination.
[2022-08-09 13:52] LABS: MANUAL DIFF FLAG NO
[2022-08-09 14:01] LABS: Basophils Percent Auto 0.4 % (0-2); Eosinophils Absolute Auto 0.2 X10*3/uL (0.0-0.4); Hematocrit 40.2 % (37.0-47.0); Hemoglobin 13.1 g/dl (12.0-16.0); Imm Gran Abs Auto 0.05 X10*3/uL (0.00-0.03); Imm Gran Pct Auto 0.5 % (0.0-0.4); Lymphocytes Absolute Auto 2.1 X10*3/uL (1.2-4.9); Lymphocytes Percent Auto 22.6 % (20-40); Mean Corpuscular HGB Conc 32.6 g/dl (31.0-35.0); Mean Corpuscular Hemoglobin 30.2 pg (27.0-33.0); Mean Corpuscular Volume 92.6 fL (80.0-98.0); Mean Platelet Volume 10.2 fL (9.4-12.3); Monocytes Absolute Auto 0.8 X10*3/uL (0.1-1.2); Monocytes Percent Auto 8.8 % (2-11); Neutrophils Absolute Auto 6.2 x10*3/uL (2.0-8.3); Neutrophils Percent Auto 65.7 % (45-73); Platelet Count 280 X10*3/uL (160-400); Red Blood Count 4.34 X10*6/uL (4.20-5.50); Red Cell Distribution Width 13.6 % (11.0-16.0); White Blood Count 9.4 X10*3/uL (4.8-10.8)
[2022-08-09 14:09] LABS: Estimated Average Glucose 126 mg/dL
[2022-08-09 14:42] LABS: Blood Urea Nitrogen 28 mg/dL (9-16); Estimated Glomerular Filt Rate 44
[2022-08-09 14:44] LABS: Alanine Aminotransferase 22 U/L (0-31); Alkaline Phosphatase 132 U/L (39-117); Anion Gap 17 (12-20); Aspartate Amino Transferase 19 U/L (5-31); Bilirubin Total 0.5 mg/dL (0.0-1.0); Blood Urea Nitrogen 28 mg/dL (9-16); C Reactive Protein 0.62 mg/dL (< or = 0.50); Calcium 9.2 mg/dL (8.4-10.2); Carbon Dioxide 27 mmol/L (22-29); Chloride 103 mmol/L (96-108); Cholesterol 188 mg/dL; Estimated Glomerular Filt Rate 43; Glucose Random 86 mg/dL (60-115); HDL Cholesterol 37 mg/dL; Iron 65 mcg/dL (30-160); LDL Cholesterol Calculated 89 mg/dl; Percent Iron Saturation 16 % (15-50); Potassium 4.7 mmol/L (3.3-5.1); Sodium 142 mmol/L (135-145); Total Iron Binding Capacity 404 mcg/dL (228-428); Total Protein 6.5 g/dL (6.5-8.0); Triglycerides 310 mg/dL; Unsaturated Iron Binding 339 ug/dL
[2022-08-09 15:08] LABS: Ferritin 180 ng/mL (10-250); TSH reflex Free T4 4.06 uIU/mL (0.32-4.0); Vitamin D 25-OH Total 28.1 ng/mL (>30)
[2022-08-09 15:22] LABS: Insulin 19 uU/mL (2-29)
[2022-08-09 15:39] LABS: Folate 13.5 ng/mL (> or = 4.0); Vitamin B12 343 pg/mL (200-900)
[2022-08-09 15:40] LABS: Free T4 (Free Thyroxine) 0.93 ng/dL (0.71-1.85)
[2022-08-10 11:02] LABS: Calcium (PTHI) 9.1 mg/dL (8.6-10.4); PTHI 75 pg/mL (16-77)
[2022-08-12 20:31] LABS: Vitamin A 87 mcg/dL (38-98)
[2022-08-13 01:12] LABS: Zinc 68 mcg/dL (60-130)
[2022-08-14 13:11] LABS: Vitamin B1 16 nmol/L (8-30)
== END 2022-08-09 13:22 | disposition home or self-care (01) ==
LOC: HO.XRAY 13:21
PROVIDERS: Absent Provider Physician Assistant Surgical; PCP Internal Medicine; Visit Provider Surgery
DX: E66.01 Morbid (severe) obesity due to excess calories (principal); D12.6 Benign neoplasm of colon, unspecified
CPT/HCPCS: 36415; 71046; 80053; 80061; 82306; 82565; 82607; 82728; 82746; 83036; 83525; 83540; 83970; 84425; 84439; 84443; 84520; 84590; 84630; 85025; 86140; 99212

== ENCOUNTER 2022-08-24 11:38 | Outpatient (REF) | payer OTHER, SELFPAY ==
--- NOTE | ~2022-08-24 | XR_ITS ---
EXAMINATION: XR SHOULDER, RIGHT XR SHOULDER, LEFT CLINICAL INFORMATION: Shoulder pain, M77.8 - Other enthesopathies, not elsewhere classified. COMPARISON: Radiographs left shoulder 04/01/2022 TECHNIQUE: Each shoulder is imaged in 5 views. There are total of 10 views. FINDINGS: Right: There is no fracture or dislocation. The acromioclavicular alignment is normal. The glenohumeral joint shows no narrowing or erosive change. Internal rotation view demonstrates punctate calcification adjacent to the tuberosity consistent with calcific tendinosis likely in distal infraspinatus. Left: No fracture or dislocation or destructive process. There is a small spur inferior medial humeral head. There is also spurring at the superior lateral acromium likely at origin deltoid. The acromioclavicular alignment is normal. No definite glenohumeral joint narrowing on axillary view. No visible rotator cuff calcifications. XR/XR shoulder LT min 2V IMPRESSION: Right: -Punctate calcific tendinosis in region of distal infraspinatus. Left: -Mild spurring superior lateral acromium likely at origin deltoid. -Small spur inferior medial humeral head. -No visible rotator cuff calcification.
--- NOTE | ~2022-08-24 | XR_ITS ---
EXAMINATION: XR SHOULDER, RIGHT XR SHOULDER, LEFT CLINICAL INFORMATION: Shoulder pain, M77.8 - Other enthesopathies, not elsewhere classified. COMPARISON: Radiographs left shoulder 04/01/2022 TECHNIQUE: Each shoulder is imaged in 5 views. There are total of 10 views. FINDINGS: Right: There is no fracture or dislocation. The acromioclavicular alignment is normal. The glenohumeral joint shows no narrowing or erosive change. Internal rotation view demonstrates punctate calcification adjacent to the tuberosity consistent with calcific tendinosis likely in distal infraspinatus. Left: No fracture or dislocation or destructive process. There is a small spur inferior medial humeral head. There is also spurring at the superior lateral acromium likely at origin deltoid. The acromioclavicular alignment is normal. No definite glenohumeral joint narrowing on axillary view. No visible rotator cuff calcifications. XR/XR shoulder RT min 2V IMPRESSION: Right: -Punctate calcific tendinosis in region of distal infraspinatus. Left: -Mild spurring superior lateral acromium likely at origin deltoid. -Small spur inferior medial humeral head. -No visible rotator cuff calcification.
--- NOTE | ~2022-08-24 | XR_ITS ---
EXAMINATION: XR HAND WRIST, RIGHT XR HAND WRIST, LEFT CLINICAL INFORMATION: Pain in joints bilateral hands COMPARISON: Radiographs right wrist 04/15/2022, left hand 02/13/2016 TECHNIQUE: Each hand and wrist are imaged together in 3 large [id number] images. A navicular view is also included for a total of 4 radiographs on each side. There are a total of 8 radiographs. FINDINGS: Right: No fracture, dislocation, destructive process. No periarticular demineralization. The ulnar variance is neutral. There is a corticated ossicle at tip ulnar styloid again seen. There is borderline widening of the scapholunate articulation which may suggest scapholunate ligament tear. The carpus shows no joint narrowing or erosive change or chondrocalcinosis. The MCP and interphalangeal joints show no focal narrowing or erosive change. There is minor spurring base fifth finger distal phalanx. Left: No fracture, dislocation, destructive process. No periarticular demineralization. The ulnar variance is neutral. There is a corticated ossicle at tip ulnar styloid and a small borderline exostosis at base first metacarpal. There is borderline widening of the scapholunate articulation which may suggest scapholunate ligament tear. The carpus shows no joint narrowing or erosive change or chondrocalcinosis. The MCP and interphalangeal joints show no focal narrowing or erosive change. There is minor spurring base fifth finger distal phalanx. XR/XR hand wrist LT IMPRESSION: -No focal joint narrowing or erosive change. -Borderline bilateral widening scapholunate articulation which may be associated with scapholunate ligament tear.
--- NOTE | ~2022-08-24 | XR_ITS ---
EXAMINATION: XR HAND WRIST, RIGHT XR HAND WRIST, LEFT CLINICAL INFORMATION: Pain in joints bilateral hands COMPARISON: Radiographs right wrist 04/15/2022, left hand 02/13/2016 TECHNIQUE: Each hand and wrist are imaged together in 3 large [id number] images. A navicular view is also included for a total of 4 radiographs on each side. There are a total of 8 radiographs. FINDINGS: Right: No fracture, dislocation, destructive process. No periarticular demineralization. The ulnar variance is neutral. There is a corticated ossicle at tip ulnar styloid again seen. There is borderline widening of the scapholunate articulation which may suggest scapholunate ligament tear. The carpus shows no joint narrowing or erosive change or chondrocalcinosis. The MCP and interphalangeal joints show no focal narrowing or erosive change. There is minor spurring base fifth finger distal phalanx. Left: No fracture, dislocation, destructive process. No periarticular demineralization. The ulnar variance is neutral. There is a corticated ossicle at tip ulnar styloid and a small borderline exostosis at base first metacarpal. There is borderline widening of the scapholunate articulation which may suggest scapholunate ligament tear. The carpus shows no joint narrowing or erosive change or chondrocalcinosis. The MCP and interphalangeal joints show no focal narrowing or erosive change. There is minor spurring base fifth finger distal phalanx. XR/XR hand wrist RT IMPRESSION: -No focal joint narrowing or erosive change. -Borderline bilateral widening scapholunate articulation which may be associated with scapholunate ligament tear.
[2022-08-24 12:06] LABS: MANUAL DIFF FLAG NO
[2022-08-24 12:28] LABS: Basophils Percent Auto 0.5 % (0-2); Eosinophils Absolute Auto 0.1 X10*3/uL (0.0-0.4); Eosinophils Percent Auto 1.3 % (0-4); Hematocrit 38.5 % (37.0-47.0); Hemoglobin 12.6 g/dl (12.0-16.0); Imm Gran Abs Auto 0.04 X10*3/uL (0.00-0.03); Imm Gran Pct Auto 0.5 % (0.0-0.4); Lymphocytes Absolute Auto 1.9 X10*3/uL (1.2-4.9); Lymphocytes Percent Auto 23.8 % (20-40); Mean Corpuscular HGB Conc 32.7 g/dl (31.0-35.0); Mean Corpuscular Hemoglobin 30.2 pg (27.0-33.0); Mean Corpuscular Volume 92.3 fL (80.0-98.0); Mean Platelet Volume 10.3 fL (9.4-12.3); Monocytes Absolute Auto 0.5 X10*3/uL (0.1-1.2); Monocytes Percent Auto 6.6 % (2-11); Neutrophils Absolute Auto 5.4 x10*3/uL (2.0-8.3); Neutrophils Percent Auto 67.3 % (45-73); Platelet Count 264 X10*3/uL (160-400); Red Blood Count 4.17 X10*6/uL (4.20-5.50); Red Cell Distribution Width 13.4 % (11.0-16.0)
[2022-08-24 12:40] LABS: Appearance Urine Clear; Color Urine Yellow; Glucose Urine UA Negative (Negative); Leukocyte Esterase Urine Negative (Negative); Nitrite Urine Negative (Negative); Specific Gravity - Urine 1.015 (1.005-1.025); Urine Blood Negative (Negative); Urine Ketones Negative (Negative); Urine Protein Trace mg/dL (Neg-Trace)
[2022-08-24 12:45] LABS: Bacteria Urine None Seen (None Seen); Hyaline Casts Urine 0-2 /LPF (0-2); RBC Urine 0-2 /HPF (0-2); Squamous Epithelial Cell Urine 0-2 /HPF (0-2); WBC Urine 0-5 /HPF (0-5)
[2022-08-24 12:51] LABS: C Reactive Protein 0.64 mg/dL (< or = 0.50); Rheumatoid Factor < 15.0 IU/mL (<15.0); Uric Acid 8.6 mg/dL (2.4-5.7)
[2022-08-24 13:14] LABS: Thyroid Stimulating Hormone 3.29 uIU/mL (0.32-4.0)
[2022-08-24 13:18] LABS: Erythrocyte Sedimentation Rate 25 MM/HR (0-20)
[2022-08-24 13:46] LABS: Creatinine Urine 99.08 mg/dL; Protein/Creatinine Ratio, Ur 0.15 (<0.2); Total Protein Urine Random 15 mg/dL (<12)
[2022-08-25 04:45] LABS: HBS Num1 1.39 mIU/mL (0-7.99); HBc Num1 0.09 S/CO (0.00-0.79); Hepatitis A Antibody IgM 0.22 Index (0-0.79); Hepatitis B Core Antibody Nonreactive (Nonreactive); Hepatitis B Surface Antigen Negative (Negative); ~HepC Num1 0.06 S/CO (0.00-0.79); ~Hepatitis A Antibody IgM Nonreactive (Nonreactive); ~Hepatitis B Surface Antibody NONREACTIVE (Nonreactive); ~Hepatitis C Antibody Nonreactive (Nonreactive)
[2022-08-25 10:57] LABS: Complement C3 186 mg/dL (83-193)
[2022-08-26 09:02] LABS: Thyroglobulin Antibodies <1 IU/mL (< or = 1)
[2022-08-26 22:07] LABS: Prot Elec - Albumin 3.5 g/dL (3.8-4.8); Prot Elec - Alpha1 0.3 g/dL (0.2-0.3); Prot Elec - Alpha2 0.9 g/dL (0.5-0.9); Prot Elec - Beta 1 0.5 g/dL (0.4-0.6); Prot Elec - Beta 2 0.4 g/dL (0.2-0.5); Prot Elec - Gamma 0.6 g/dL (0.8-1.7); Prot Elec - Total Protein 6.1 g/dL (6.1-8.1)
[2022-08-26 23:11] LABS: Anti DNA DS Antibody <1 IU/mL; Anti-Centromere B Antibodies <1.0 NEG AI (<1.0 NEG); Antibody to SS-A Antigen <1.0 NEG AI (<1.0 NEG); Antibody to SS-B Antigen <1.0 NEG AI (<1.0 NEG); SM/Ribonucleoprotein Ab <1.0 NEG AI (<1.0 NEG); Scleroderma 70 Antibody <1.0 NEG AI (<1.0 NEG); Smith Protein <1.0 NEG AI (<1.0 NEG)
[2022-08-27 00:07] LABS: TS Negative Control Passed; TS Panel A 11; TS Panel B 7; TS Positive Control Passed; TSpotTB Positive (Negative)
[2022-08-27 11:31] LABS: Anti Nuclear Antibody Screen NEGATIVE (NEGATIVE)
[2022-08-27 14:11] LABS: Cyclic Citrullinated Peptide <16 UNITS
[2022-08-28 20:27] LABS: IgA 306 mg/dL (70-320); IgG 639 mg/dL (600-1540); IgM 25 mg/dL (50-300)
[2022-08-29 05:11] LABS: Angiotensin Converting Enzyme 68 U/L (9-67)
[2022-08-29 15:12] LABS: Beta-2 Glycoprotein IgA <2.0 U/mL (<20.0); Beta-2 Glycoprotein IgG <2.0 U/mL (<20.0); Beta-2 Glycoprotein IgM <2.0 U/mL (<20.0)
[2022-08-30 07:22] LABS: DRVVT Confirmation Negative (Negative); Hexagonal Phase Neutralization Negative (Negative); PTT (LAC) Screen 42 sec (<=40)
[2022-08-31 02:51] LABS: Thyroid Peroxidase Antibodies <1 IU/mL (<9)
[2022-08-31 14:22] LABS: Cardiolipin IgG Ab 6.9 GPL-U/mL; Cardiolipin IgM Ab <2.0 MPL-U/mL
== END 2022-08-24 11:39 | disposition home or self-care (01) ==
LOC: HO.LAB 11:38
PROVIDERS: PCP Internal Medicine; Visit Provider Student in an Organized Health Care Education/Training Program
DX: Z11.7 Encounter for testing for latent tuberculosis infection (principal); Z11.59 Encounter for screening for other viral diseases; R76.8 Other specified abnormal immunological findings in serum; M25.542 Pain in joints of left hand; M25.512 Pain in left shoulder; M77.8 Other enthesopathies, not elsewhere classified; M25.541 Pain in joints of right hand; R21 Rash and other nonspecific skin eruption; M65.4 Radial styloid tenosynovitis [de Quervain]; G93.32 Myalgic encephalomyelitis/chronic fatigue syndrome
CPT/HCPCS: 36415; 73030; 73110; 73130; 81001; 82164; 82550; 82784; 84156; 84165; 84443; 84550; 85025; 85597; 85613; 85652; 85730; 86038; 86039; 86140; 86146; 86147; 86160; 86200; 86225; 86235; 86334; 86376; 86431; 86481; 86704; 86706; 86709; 86800; 86803; 87340; 99202

== ENCOUNTER 2022-08-31 08:52 | Outpatient (REF) | payer OTHER, SELFPAY ==
--- NOTE | ~2022-08-31 | CT_ITS ---
EXAMINATION: CT ABDOMEN AND PELVIS WITHOUT CONTRAST CLINICAL INFORMATION: Benign neoplasm of colon COMPARISON: Previous CT of the abdomen and pelvis April 2021 TECHNIQUE: Multidetector volumetric imaging was performed from the superior aspect of the liver through the pubic symphysis. Sagittal and coronal reformatted images were obtained on the technologist's workstation. This CT examination was performed using dose optimization techniques as appropriate, variously including the following: *Automated exposure control *Adjustment of mA and/or kV according to patient size (this includes techniques or standardized protocols for targeted exams where dose is matched to indication/reason for exam; i.e. extremities or head) *Use of iterative reconstruction technique DLP: 877 mGy-cm FINDINGS: LUNG BASES: The visualized lung bases are unremarkable. LIVER, GALLBLADDER, AND BILIARY TREE: The liver is normal in size, shape, and attenuation. No focal hepatic lesion or biliary ductal dilatation is present. The gallbladder is unremarkable with no evidence of radiopaque gallstones, gallbladder wall thickening, or obvious pericholecystic inflammatory changes. PANCREAS: Unremarkable. SPLEEN: Unremarkable. ADRENAL GLANDS: Unremarkable. KIDNEYS AND URETERS: The kidneys are normal in size, shape, and attenuation. No hydronephrosis, hydroureter, or calculi seen. No perinephric stranding. BLADDER: Empty and not well evaluated GASTROINTESTINAL TRACT: Diverticulosis of the colon. No evidence of diverticulitis. Focal wall thickening/mass of the transverse colon axial image 40 series 3. This measures approximately 3.5 x 4 cm and appears increased from prior exams.. Small and large bowel are otherwise normal. Normal appendix. Normal stomach. ABDOMINAL WALL: Diastasis of the rectus muscles. LYMPH NODES: No enlarged lymph nodes. Shotty small bowel mesentery and retroperitoneal lymph nodes. No ascites. VASCULAR: Unremarkable. PELVIC VISCERA: Uterus appears to have been removed. No pelvic mass. OSSEOUS STRUCTURES: Degenerative changes of the spine and mild scoliosis. CT/CT abdomen pelvis wo IV con IMPRESSION: Focal wall thickening/mass in the mid transverse colon increased from prior exams. Diverticulosis of the colon. No evidence of diverticulitis. Fleischner guidelines were followed.
== END 2022-08-31 08:53 | disposition home or self-care (01) ==
LOC: HO.CT 08:52
PROVIDERS: PCP Internal Medicine; Visit Provider Surgery
DX: D12.6 Benign neoplasm of colon, unspecified (principal)
CPT/HCPCS: 74176

== ENCOUNTER → 2022-09-01 08:57 | Outpatient (BNVA) | payer OTHER, SELFPAY | PROVIDERS: PCP Internal Medicine; Visit Provider Physician Assistant Surgical | DX: E66.01 Morbid (severe) obesity due to excess calories (principal) | CPT/HCPCS: 99212 ==

== ENCOUNTER 2022-09-10 06:35 | Day surgery (SDC) | payer OTHER, SELFPAY ==
--- NOTE | ~2022-09-10 | FL_ITS ---
EXAMINATION: XR FLUOROSCOPY WITH IMAGES CLINICAL INFORMATION: Right SI joint injection. COMPARISON: CT pelvis 08/31/2022 TECHNIQUE: Fluoroscopy performed by Dr. Jigar Trevino. Fluoroscopy time: 0.1 minutes. Cumulative Dose: 16.1 mGy. DAP: 3.57 Gycm2. Images: 1. FINDINGS: Spinal needle overlies mid right SI joint. There is contrast in the periarticular soft tissues with probable early intra-articular contrast. No vasculature communication appreciated. FL/FL guidance in OR IMPRESSION: Fluoroscopy for pain management procedure.
[2022-09-10 06:44] VITALS: BMI 46.4
[2022-09-10 07:06] VITALS: BP 142/64; PULSE 57; RESP 16; TEMP 36.2; O2SAT 95
[2022-09-10] MEDS: Lactated Ringers 500 ML 20 ML IVCONT (07:11)
--- NOTE | 2022-09-10 07:24 | P.HPSUR_ITS ---
Pre-Procedural Eval Section A Date of Service: 09/10/22 The patient is an INPATIENT: No Changes since office visit: Yes Patient answered all questions The History & Physical has been completed within 30 days and I have reviewed it.: No Section B Chief Complaint: Sacrococcygeal disorders, not elsewhere classified Details of Present Illness: as above Relevant Family History (Specify if Yes): No Relevant Social History: None Medical History: No relevant PMH History of Previous Operations: No relevant previous surgery Allergies: Allergies Allergy/AdvReac Type Severity Reaction Status Date / Time peanut [PEANUT] Allergy Severe ITCHY, Verified 09/01/22 09:07 SWELLING seafood Allergy Severe Rash Verified 09/01/22 09:07 tomato [TOMATO] Allergy Severe ITCHY, Verified 09/01/22 09:07 SWELLING aspirin [ASA] Allergy Intermediate ITCHY,ANXIOUS, Verified 09/01/22 09:07 itching, rash Iodinated Contrast Media Allergy Intermediate HIVES Verified 09/01/22 09:07 [IV CONTRAST] plantain [PLANTAIN] Allergy Intermediate ITCHY/SWELL Verified 09/01/22 09:07 ING Review of Systems Sugical H&P ROS: Negative: Constitution, Cardiovascular, Respiratory, Rian rological, Psychiatric, Hem-Onc, Allergic/Immunologic, Gastrointestinal, Genitourinary, Musculoskeletal, Integumentary, Endocrine and Eyes/Ears/Nose/Throat Exam Surgical H&P Exam: Normal: HEENT, Normal: Heart, Normal: Lungs, Normal: Extremities, Normal: Abdomen, Normal: Skin and Normal: Neurological Plan Diagnosis/Plan: Unchanged I have reviewed the history and physical and performed a pertinent physical examination on my patient. No changes have occurred unless specified.
--- NOTE | 2022-09-10 07:27 | W.PM.OPN ---
Operative Note Operative Note Date of Service: 09/10/22 Narrative: RIGHT Sacroiliac joint injection Informed consent was explained thoroughly to the patient.? All questions about benefits and risks for the procedure were answered. ? Patient came to the operating room and was positioned prone on the operating table with the pillow under the pelvis.? ? [employer] monitors were applied and patient was deeply sedated.? The lower back and buttocks of the patient were prepped with ChloraPrep prepped and draped with sterile utility towels.? Sterilely draped C-arm was brought over the operating field and sq picture of patient's pelvis was demonstrated on the screen.? For right joint - tilting C-arm contralateral to the site of the joint the most posterior portion of the joints was superimposed with anterior silhouette of the joint.? Skin was injected in the projection of the joint slightly medial to the location of the joint with 25 gauge 1/2 inch needle using local lidocaine 2% . After that 22 gauge 5 inch needle was driven to the right joint in tunnel vision fashion.? When needle entered the joint capsule injection of the contrast was performed demonstrating intra-articular and minimally periarticular spread of the contrast.? After that 4 cc. of ropivacaine 0.5% mixed with Kenalog 40 mg was injected into each joint.? Upon completion of the injections the needles were removed. Sterile dressing was applied.? Upon completion of the injection patient was taken outside of the operating room to the recovery room where recovered uneventfully.
--- NOTE | 2022-09-10 07:31 | HO.ANESPROP2 ---
[facility] Active Problems Active Problems: All Active Problems (Updated 08/24/22 @ 13:03 by Diego Stallworth MD) De Quervain's tenosynovitis, bilateral (Acute) Rash and nonspecific skin eruption (Acute) Right shoulder tendinitis (Acute) Pain in left shoulder (Acute) Encounter for testing for latent tuberculosis infection (Acute) Screening for viral disease (Acute) AR positive (Acute) COPD (chronic obstructive pulmonary disease) (Acute) Restrictive lung disease (Acute) Allergic rhinitis (Acute) ZOEY (obstructive sleep apnea) (Acute) Morbid obesity (Acute) Osteoporosis (Acute) Spondylosis of lumbar spine (Acute) Sacroiliac joint pain (Acute) Lumbar radiculopathy (Acute) Tubular adenoma of colon (Acute) Abnormal mammogram of right breast (Acute) Past Medical History Medical History Allergic rhinitis Allergic rhinitis Anemia Angina pectoris Anxiety CAD (coronary artery disease) CKD (chronic kidney disease), stage III COPD (chronic obstructive pulmonary disease) COPD (chronic obstructive pulmonary disease) Edema Fatty liver GERD (gastroesophageal reflux disease) Gout HTN (hypertension) Morbid obesity Myocardial infarction On beta prashant at home ZOEY (obstructive sleep apnea) ZOEY treated with BiPAP Osteoarthritis Osteopenia Osteoporosis Panic attacks Pre-diabetes PVD (peripheral vascular disease) Restrictive lung disease Rheumatoid arthritis Schizophrenia Family History Family History Mother Leukemia Brother Colon cancer Brother Leukemia Sister Breast cancer Sister Vaginal cancer Sister Breast cancer Sister Breast cancer Daughter Thyroid disease Family history of problems with anesthesia: No Surgical History Surgical History History of bladder suspension procedure History of colonoscopy (~2021) History of esophagogastroduodenoscopy (EGD) History of hysterectomy History of lumpectomy of right breast History of lumpectomy of right breast (06/21/22) History of tubal ligation Hx of colonoscopy History of Problems with Anesthesia: No Social History Social History Alcohol intake: never Patient Tobacco Use Status: Never used Tobacco Second Hand Smoke Exposure: No Use of substances other than those prescribed or required for medical reasons: No Are you DNR?: No Advance Directives: No Advance Directives Information Provided: Yes Meds Allergies Allergy/AdvReac Type Severity Reaction Status Date / Time peanut [PEANUT] Allergy Severe ITCHY, Verified 09/01/22 09:07 SWELLING seafood Allergy Severe Rash Verified 09/01/22 09:07 tomato [TOMATO] Allergy Severe ITCHY, Verified 09/01/22 09:07 SWELLING aspirin [ASA] Allergy Intermediate ITCHY,ANXIOUS, Verified 09/01/22 09:07 itching, rash Iodinated Contrast Media Allergy Intermediate HIVES Verified 09/01/22 09:07 [IV CONTRAST] plantain [PLANTAIN] Allergy Intermediate ITCHY/SWELL Verified 09/01/22 09:07 ING Home Medications Medication Instructions Recorded Confirmed Last Taken Type allopurinol 100 mg tablet 100 mg PO QAM 10/01/20 09/01/22 Unknown History atorvastatin 80 mg tablet 80 mg PO DAILY 10/01/20 09/01/22 Unknown History blood sugar diagnostic #10 ea 10/01/20 09/01/22 Unknown History brimonidine 0.2 % eye drops drp ophthalmic (eye) ONCE 10/01/20 09/01/22 Unknown History calcium carbonate 600 mg-vitamin 1 tab PO BID 10/01/20 09/01/22 Unknown History D3 10 mcg (400 unit) tablet ferrous sulfate 325 mg (65 mg 325 mg PO QAM 10/01/20 09/01/22 Unknown History iron) tablet fexofenadine 180 mg tablet 180 mg PO QAM 10/01/20 09/01/22 Unknown History inhalational spacing device #1 ea 10/01/20 09/01/22 Unknown History lancets 33 gauge #100 ea 10/01/20 09/01/22 Unknown History latanoprost 0.005 % eye drops 1 drp ophthalmic (eye) BEDTIME 10/01/20 09/01/22 Unknown History metoprolol succinate 50 mg 50 mg PO DAILY 10/01/20 09/01/22 06/11/22 History tablet,extended release 24 hr pantoprazole 40 mg tablet,delayed 40 mg PO DAILY 10/01/20 09/01/22 06/11/22 History release albuterol sulfate 2.5 mg/3 mL 2.5 mg inhalation Q4-6H PRN 05/05/22 09/01/22 Unknown History (0.083 %) solution for nebulization Wheezing gabapentin 300 mg capsule 300 mg PO BID 05/13/22 09/01/22 06/11/22 History hydrochlorothiazide 12.5 mg tablet 12.5 mg PO QAM 05/13/22 09/01/22 Unknown History losartan 100 mg tablet 100 mg PO QAM 05/13/22 09/01/22 Unknown History olanzapine 15 mg tablet 15 mg PO BEDTIME 05/13/22 09/01/22 Unknown History sertraline 100 mg tablet 100 mg PO DAILY 06/16/22 09/01/22 Unknown History Exam Exam Date and Time: September 10, 2022 0731 Height,Weight and Vital Signs: Height 5 ft 5 in Weight 126.552 kg Last Vital Signs Temp 97.1 F 09/10/22 07:06 Pulse 57 09/10/22 07:06 Resp 16 09/10/22 07:06 BP 142/64 H 09/10/22 07:06 Pulse Ox 95 09/10/22 07:06 O2 Del Method 09/10/22 07:06 Airway Mallampati Class: IV TM Dist: >3cm Neck ROM: Full Heart: rrr Lungs: clear Assessment and Plan Final Anesthetic Review Family History of Problems with Anesthesia: No History of Problems with Anesthesia: No NPO: Yes ASA Class: IV Final Preanesthetic Review: No Changes in Pt Med Stat, Meds/Allgs Chart Reviewed, Consent Obtained/Reviewed and Anes Risks/Benef Reviewed Patient Risk: High Procedure Risk: Low Anesthetic Plan Anesthetic Plan: MAC: Disposition: Standard PACU
[2022-09-10 08:09] VITALS: BP 147/66; PULSE 61; RESP 20; TEMP 36.6; O2SAT 95
--- NOTE | 2022-09-10 08:15 | P.BOP_ITS ---
Brief Operative Note Date of Service: 09/10/22 Pre-op diagnosis: sacroiliatis Post-op diagnosis: same Procedure: right SI joint therapeutic injection. Surgeon: Jigar Trevino MD Anesthesia: MAC Was an [employer] Experimental Mechanic used for this Procedure?: No Estimated blood loss (mL): 0 Condition: stable Disposition: PACU
[2022-09-10 08:24] VITALS: BP 136/70; PULSE 60; RESP 20; O2SAT 95
[2022-09-10 08:37] VITALS: BP 119/70; PULSE 60; RESP 20; TEMP 36.6; O2SAT 98
== END 2022-09-10 09:25 | disposition home or self-care (01) ==
PROVIDERS: PCP Internal Medicine; Visit Provider Anesthesiology
PROC: 3E0U33Z Introduction of Anti-inflammatory into Joints, Percutaneous Approach (ICD-10-PCS; CPT 27096; principal; 2022-09-10 07:30)
DX: M53.3 Sacrococcygeal disorders, not elsewhere classified (principal); M54.16 Radiculopathy, lumbar region; M47.816 Spondylosis without myelopathy or radiculopathy, lumbar region; M85.88 Other specified disorders of bone density and structure, other site; I12.9 Hypertensive chronic kidney disease with stage 1 through stage 4 chronic kidney disease, or unspecified chronic kidney disease; N18.30 Chronic kidney disease, stage 3 unspecified; I73.9 Peripheral vascular disease, unspecified; J45.909 Unspecified asthma, uncomplicated; E66.01 Morbid (severe) obesity due to excess calories; Z68.41 Body mass index [BMI] 40.0-44.9, adult; Z79.51 Long term (current) use of inhaled steroids; Z79.899 Other long term (current) drug therapy; Z88.8 Allergy status to other drugs, medicaments and biological substances; Z91.041 Radiographic dye allergy status
CPT/HCPCS: G0260; A9585; J2250; J2795; J3300; Q9965

== ENCOUNTER → 2022-09-20 12:23 | Outpatient (BNVA) | payer OTHER, SELFPAY | PROVIDERS: PCP Internal Medicine; Visit Provider Surgery | DX: D12.6 Benign neoplasm of colon, unspecified (principal); E66.01 Morbid (severe) obesity due to excess calories; Z68.43 Body mass index [BMI] 50.0-59.9, adult; J44.9 Chronic obstructive pulmonary disease, unspecified; G47.33 Obstructive sleep apnea (adult) (pediatric); Z99.89 Dependence on other enabling machines and devices | CPT/HCPCS: 99212 ==

== ENCOUNTER → 2022-09-21 11:42 | Outpatient (BNVA) | payer OTHER, SELFPAY | PROVIDERS: PCP Internal Medicine; Referring Provider Internal Medicine; Visit Provider Student in an Organized Health Care Education/Training Program | DX: M13.80 Other specified arthritis, unspecified site (principal); M1A.0790 Idiopathic chronic gout, unspecified ankle and foot, without tophus (tophi); M79.7 Fibromyalgia | CPT/HCPCS: 99212 ==

== ENCOUNTER → 2022-09-23 11:40 | Outpatient (BNVA) | payer OTHER, SELFPAY | PROVIDERS: PCP Internal Medicine; Visit Provider Internal Medicine | DX: G47.33 Obstructive sleep apnea (adult) (pediatric) (principal); J44.9 Chronic obstructive pulmonary disease, unspecified; J98.4 Other disorders of lung; J30.9 Allergic rhinitis, unspecified; E66.01 Morbid (severe) obesity due to excess calories; Z68.43 Body mass index [BMI] 50.0-59.9, adult | CPT/HCPCS: 99212 ==

== ENCOUNTER → 2022-10-21 08:57 | Outpatient (BNVA) | payer OTHER, SELFPAY | PROVIDERS: PCP Internal Medicine; Visit Provider Anesthesiology | DX: M54.16 Radiculopathy, lumbar region (principal); M53.3 Sacrococcygeal disorders, not elsewhere classified; M47.816 Spondylosis without myelopathy or radiculopathy, lumbar region; E66.01 Morbid (severe) obesity due to excess calories; Z68.43 Body mass index [BMI] 50.0-59.9, adult | CPT/HCPCS: 99212 ==

== ENCOUNTER 2022-10-28 | Outpatient (REF) | payer OTHER, SELFPAY ==
--- NOTE | ~2022-10-28 | XR_ITS ---
EXAMINATION: XR AP KNEE STANDING, BILATERAL XR KNEE, BILATERAL CLINICAL INFORMATION: Bilateral knee pain COMPARISON: None TECHNIQUE: AP bilateral knee standing. 2 views each knee. FINDINGS: AP BILATERAL KNEE: There is mild reduction in the medial and lateral compartment joint spaces, both knees. No bony erosive changes. No loose bodies. RIGHT KNEE: There is loss of patellofemoral compartment joint space with superior patellar spurring. No bony erosive changes. No loose bodies or joint effusion. There is mild anterosuperior patellar spurring as well. LEFT KNEE: There is loss of patellofemoral compartment joint space with superior periarticular spurring and anterosuperior patellar enthesophyte. No abnormal joint effusion seen. There are no loose bodies. XR/XR knee LT 2V IMPRESSION: 1. Mild degenerative changes medial and lateral compartment both knees. No visible acute fracture, dislocation or subluxation seen. 2. There is moderate degenerative arthritic changes patellofemoral compartment with superior patellar spurring and anterior superior patellar enthesophyte.
--- NOTE | ~2022-10-28 | XR_ITS ---
EXAMINATION: XR AP KNEE STANDING, BILATERAL XR KNEE, BILATERAL CLINICAL INFORMATION: Bilateral knee pain COMPARISON: None TECHNIQUE: AP bilateral knee standing. 2 views each knee. FINDINGS: AP BILATERAL KNEE: There is mild reduction in the medial and lateral compartment joint spaces, both knees. No bony erosive changes. No loose bodies. RIGHT KNEE: There is loss of patellofemoral compartment joint space with superior patellar spurring. No bony erosive changes. No loose bodies or joint effusion. There is mild anterosuperior patellar spurring as well. LEFT KNEE: There is loss of patellofemoral compartment joint space with superior periarticular spurring and anterosuperior patellar enthesophyte. No abnormal joint effusion seen. There are no loose bodies. XR/XR knee standing BI IMPRESSION: 1. Mild degenerative changes medial and lateral compartment both knees. No visible acute fracture, dislocation or subluxation seen. 2. There is moderate degenerative arthritic changes patellofemoral compartment with superior patellar spurring and anterior superior patellar enthesophyte.
--- NOTE | ~2022-10-28 | XR_ITS ---
EXAMINATION: XR AP KNEE STANDING, BILATERAL XR KNEE, BILATERAL CLINICAL INFORMATION: Bilateral knee pain COMPARISON: None TECHNIQUE: AP bilateral knee standing. 2 views each knee. FINDINGS: AP BILATERAL KNEE: There is mild reduction in the medial and lateral compartment joint spaces, both knees. No bony erosive changes. No loose bodies. RIGHT KNEE: There is loss of patellofemoral compartment joint space with superior patellar spurring. No bony erosive changes. No loose bodies or joint effusion. There is mild anterosuperior patellar spurring as well. LEFT KNEE: There is loss of patellofemoral compartment joint space with superior periarticular spurring and anterosuperior patellar enthesophyte. No abnormal joint effusion seen. There are no loose bodies. XR/XR knee RT 2V IMPRESSION: 1. Mild degenerative changes medial and lateral compartment both knees. No visible acute fracture, dislocation or subluxation seen. 2. There is moderate degenerative arthritic changes patellofemoral compartment with superior patellar spurring and anterior superior patellar enthesophyte.
== END 2022-10-28 00:01 | disposition home or self-care (01) ==
LOC: HO.HOSX
PROVIDERS: Visit Provider Orthopaedic Surgery
DX: M17.0 Bilateral primary osteoarthritis of knee (principal)
CPT/HCPCS: 20610; 73560; 73565; 99202; J1100

== ENCOUNTER 2022-11-16 12:58 | Outpatient (REF) | payer OTHER, SELFPAY ==
[2022-11-16 14:04] LABS: MANUAL DIFF FLAG NO
[2022-11-16 15:06] LABS: Basophils Percent Auto 0.5 % (0-2); Eosinophils Percent Auto 0.3 % (0-4); Hematocrit 42.2 % (37.0-47.0); Hemoglobin 13.4 g/dl (12.0-16.0); Imm Gran Abs Auto 0.02 X10*3/uL (0.00-0.03); Imm Gran Pct Auto 0.3 % (0.0-0.4); Lymphocytes Absolute Auto 2.2 X10*3/uL (1.2-4.9); Lymphocytes Percent Auto 27.2 % (20-40); Mean Corpuscular HGB Conc 31.8 g/dl (31.0-35.0); Mean Corpuscular Hemoglobin 29.8 pg (27.0-33.0); Mean Corpuscular Volume 93.8 fL (80.0-98.0); Mean Platelet Volume 10.8 fL (9.4-12.3); Monocytes Absolute Auto 0.6 X10*3/uL (0.1-1.2); Neutrophils Absolute Auto 5.1 x10*3/uL (2.0-8.3); Neutrophils Percent Auto 63.7 % (45-73); Platelet Count 286 X10*3/uL (160-400); Red Cell Distribution Width 14.4 % (11.0-16.0)
[2022-11-16 15:46] LABS: Alanine Aminotransferase 20 U/L (0-31); Alkaline Phosphatase 125 U/L (39-117); Anion Gap 15 (12-20); Aspartate Amino Transferase 19 U/L (5-31); Bilirubin Total 0.5 mg/dL (0.0-1.0); Blood Urea Nitrogen 25 mg/dL (9-16); C Reactive Protein 0.52 mg/dL (< or = 0.50); Calcium 9.7 mg/dL (8.4-10.2); Carbon Dioxide 30 mmol/L (22-29); Chloride 103 mmol/L (96-108); Estimated Glomerular Filt Rate 42; Glucose Random 132 mg/dL (60-115); Potassium 4.1 mmol/L (3.3-5.1); Sodium 144 mmol/L (135-145); Total Protein 6.4 g/dL (6.5-8.0); Uric Acid 7.3 mg/dL (2.4-5.7)
[2022-11-16 15:52] LABS: Erythrocyte Sedimentation Rate 23 MM/HR (0-20)
== END 2022-11-16 12:59 | disposition home or self-care (01) ==
LOC: HO.LAB 12:58
PROVIDERS: PCP Internal Medicine; Visit Provider Student in an Organized Health Care Education/Training Program
DX: M13.80 Other specified arthritis, unspecified site (principal); M1A.0790 Idiopathic chronic gout, unspecified ankle and foot, without tophus (tophi); M79.7 Fibromyalgia; Z79.631 Long term (current) use of antimetabolite agent
CPT/HCPCS: 36415; 80053; 84550; 85025; 85652; 86140; 99212

== ENCOUNTER 2022-12-14 06:06 | Outpatient (REF) | payer OTHER, SELFPAY ==
--- NOTE | ~2022-12-14 | FL_ITS ---
EXAMINATION: XR FLUOROSCOPY WITH IMAGES CLINICAL INFORMATION: Spondylosis without myelopathy or radiculopathy COMPARISON: None. TECHNIQUE: Fluoroscopy Supervised By: Jolene. Fluoroscopy Time: 0.5 minutes. Cumulative Dose: 20.1 mGy. DAP: 5.49 Gycm2. Images: 4. FINDINGS: Needle positioned adjacent to right S1, L5 and L4 pedicles for pain management. Mild spondylosis seen at the L3-L4 disc level. No lytic or sclerotic process seen. FL/FL guidance in treatment room IMPRESSION: 1. Fluoroscopy was provided to referrer for pain management. 2. Mild spondylosis at the L3-L4 disc level.
== END 2022-12-14 06:07 | disposition home or self-care (01) ==
LOC: CF 06:06
PROVIDERS: Visit Provider Anesthesiology
DX: M47.816 Spondylosis without myelopathy or radiculopathy, lumbar region (principal); M54.16 Radiculopathy, lumbar region; M53.3 Sacrococcygeal disorders, not elsewhere classified; E66.01 Morbid (severe) obesity due to excess calories; M13.80 Other specified arthritis, unspecified site
CPT/HCPCS: 64493; 64494

== ENCOUNTER → 2023-01-13 10:18 | Outpatient (BNVA) | payer OTHER, SELFPAY | PROVIDERS: PCP Internal Medicine; Visit Provider Internal Medicine | DX: G47.33 Obstructive sleep apnea (adult) (pediatric) (principal); J44.9 Chronic obstructive pulmonary disease, unspecified; J98.4 Other disorders of lung; J30.9 Allergic rhinitis, unspecified; E66.01 Morbid (severe) obesity due to excess calories; Z68.43 Body mass index [BMI] 50.0-59.9, adult | CPT/HCPCS: 99212 ==

== ENCOUNTER → 2023-01-17 15:56 | Outpatient (BNVA) | payer OTHER, SELFPAY | PROVIDERS: PCP Internal Medicine; Visit Provider Anesthesiology | DX: M47.26 Other spondylosis with radiculopathy, lumbar region (principal); M53.3 Sacrococcygeal disorders, not elsewhere classified; M48.061 Spinal stenosis, lumbar region without neurogenic claudication | CPT/HCPCS: Q3014 ==

== ENCOUNTER 2023-02-14 12:24 | Outpatient (REF) | payer OTHER, SELFPAY ==
[2023-02-14 12:39] LABS: MANUAL DIFF FLAG NO
[2023-02-14 13:36] LABS: Basophils Percent Auto 0.6 % (0-2); Eosinophils Absolute Auto 0.2 X10*3/uL (0.0-0.4); Eosinophils Percent Auto 2.3 % (0-4); Hematocrit 38.5 % (37.0-47.0); Hemoglobin 12.5 g/dl (12.0-16.0); Imm Gran Abs Auto 0.01 X10*3/uL (0.00-0.03); Imm Gran Pct Auto 0.1 % (0.0-0.4); Lymphocytes Percent Auto 28.3 % (20-40); Mean Corpuscular HGB Conc 32.5 g/dl (31.0-35.0); Mean Corpuscular Hemoglobin 32.1 pg (27.0-33.0); Mean Platelet Volume 12.1 fL (9.4-12.3); Monocytes Absolute Auto 0.7 X10*3/uL (0.1-1.2); Monocytes Percent Auto 9.1 % (2-11); Neutrophils Absolute Auto 4.2 x10*3/uL (2.0-8.3); Neutrophils Percent Auto 59.6 % (45-73); Platelet Count 259 X10*3/uL (160-400); Red Blood Count 3.89 X10*6/uL (4.20-5.50); Red Cell Distribution Width 16.1 % (11.0-16.0); White Blood Count 7.1 X10*3/uL (4.8-10.8)
[2023-02-14 14:19] LABS: Erythrocyte Sedimentation Rate 18 MM/HR (0-20)
[2023-02-14 14:32] LABS: Alanine Aminotransferase 22 U/L (0-31); Albumin Level 3.9 g/dL (3.5-5.0); Alkaline Phosphatase 113 U/L (39-117); Anion Gap 16 (12-20); Aspartate Amino Transferase 20 U/L (5-31); Bilirubin Total 0.8 mg/dL (0.0-1.0); Blood Urea Nitrogen 23 mg/dL (9-16); C Reactive Protein 0.23 mg/dL (< or = 0.50); Calcium 8.9 mg/dL (8.4-10.2); Carbon Dioxide 27 mmol/L (22-29); Chloride 103 mmol/L (96-108); Estimated Glomerular Filt Rate 30; Glucose Random 109 mg/dL (60-115); Potassium 3.6 mmol/L (3.3-5.1); Sodium 142 mmol/L (135-145); Total Protein 5.9 g/dL (6.5-8.0); Uric Acid 5.9 mg/dL (2.4-5.7)
== END 2023-02-14 12:25 | disposition home or self-care (01) ==
LOC: HO.LAB 12:24
PROVIDERS: PCP Internal Medicine; Visit Provider Student in an Organized Health Care Education/Training Program
DX: M1A.0790 Idiopathic chronic gout, unspecified ankle and foot, without tophus (tophi) (principal); Z79.631 Long term (current) use of antimetabolite agent
CPT/HCPCS: 36415; 80053; 84550; 85025; 85652; 86140

== ENCOUNTER 2023-03-17 11:54 | Outpatient (REF) | payer OTHER, SELFPAY ==
[2023-03-17 12:47] LABS: MANUAL DIFF FLAG NO
[2023-03-17 13:41] LABS: Basophils Percent Auto 0.5 % (0-2); Eosinophils Absolute Auto 0.2 X10*3/uL (0.0-0.4); Eosinophils Percent Auto 2.3 % (0-4); Hematocrit 37.8 % (37.0-47.0); Hemoglobin 12.2 g/dl (12.0-16.0); Imm Gran Abs Auto 0.02 X10*3/uL (0.00-0.03); Imm Gran Pct Auto 0.3 % (0.0-0.4); Lymphocytes Absolute Auto 1.8 X10*3/uL (1.2-4.9); Lymphocytes Percent Auto 22.9 % (20-40); Mean Corpuscular HGB Conc 32.3 g/dl (31.0-35.0); Mean Corpuscular Hemoglobin 32.6 pg (27.0-33.0); Mean Corpuscular Volume 101.1 fL (80.0-98.0); Mean Platelet Volume 11.9 fL (9.4-12.3); Monocytes Absolute Auto 0.6 X10*3/uL (0.1-1.2); Monocytes Percent Auto 8.1 % (2-11); Neutrophils Absolute Auto 5.1 x10*3/uL (2.0-8.3); Neutrophils Percent Auto 65.9 % (45-73); Platelet Count 254 X10*3/uL (160-400); Red Blood Count 3.74 X10*6/uL (4.20-5.50); White Blood Count 7.8 X10*3/uL (4.8-10.8)
[2023-03-17 13:52] LABS: Appearance Urine Cloudy; Color Urine Yellow; Glucose Urine UA Negative (Negative); Leukocyte Esterase Urine Negative (Negative); Nitrite Urine Negative (Negative); Urine Blood Negative (Negative); Urine Ketones Negative (Negative); Urine Protein Negative (Neg-Trace)
[2023-03-17 14:52] LABS: Erythrocyte Sedimentation Rate 20 MM/HR (0-20)
[2023-03-17 14:54] LABS: Protein/Creatinine Ratio, Ur 0.06 (<0.2); Total Protein Urine Random 9 mg/dL (<12)
[2023-03-17 15:14] LABS: Alanine Aminotransferase 16 U/L (0-31); Albumin Level 3.7 g/dL (3.5-5.0); Alkaline Phosphatase 109 U/L (39-117); Anion Gap 16 (12-20); Aspartate Amino Transferase 18 U/L (5-31); Bilirubin Total 0.5 mg/dL (0.0-1.0); Blood Urea Nitrogen 20 mg/dL (9-16); C Reactive Protein 0.44 mg/dL (< or = 0.50); Carbon Dioxide 25 mmol/L (22-29); Chloride 107 mmol/L (96-108); Estimated Glomerular Filt Rate 35; Glucose Random 106 mg/dL (60-115); Potassium 3.8 mmol/L (3.3-5.1); Sodium 144 mmol/L (135-145); Total Protein 5.8 g/dL (6.5-8.0)
[2023-03-17 15:38] LABS: Anion Gap 14 (12-20); Blood Urea Nitrogen 20 mg/dL (9-16); Carbon Dioxide 26 mmol/L (22-29); Chloride 107 mmol/L (96-108); Estimated Glomerular Filt Rate 35; Potassium 3.7 mmol/L (3.3-5.1); Sodium 143 mmol/L (135-145); Uric Acid 5.3 mg/dL (2.4-5.7)
[2023-03-17 15:44] LABS: Vitamin D 25-OH Total 41.6 ng/mL (>30)
== END 2023-03-17 11:55 | disposition home or self-care (01) ==
LOC: HO.LAB 11:54
PROVIDERS: Physician Assistant; Absent Provider Student in an Organized Health Care Education/Training Program; PCP Internal Medicine; Visit Provider Orthopaedic Surgery
DX: N18.32 Chronic kidney disease, stage 3b (principal); E55.9 Vitamin D deficiency, unspecified; N17.9 Acute kidney failure, unspecified; M47.816 Spondylosis without myelopathy or radiculopathy, lumbar region; M53.3 Sacrococcygeal disorders, not elsewhere classified
CPT/HCPCS: 36415; 80051; 80053; 81003; 82306; 82310; 82565; 84156; 84520; 84550; 85025; 85652; 86140; J1100

== ENCOUNTER 2023-05-05 12:06 | Outpatient (REF) | payer OTHER, SELFPAY | END 2023-05-05 12:07 | disposition home or self-care (01) | LOC: HO.XRAY 12:06 | PROVIDERS: PCP Internal Medicine; Visit Provider Internal Medicine | DX: M54.42 Lumbago with sciatica, left side (principal); M54.41 Lumbago with sciatica, right side | CPT/HCPCS: 72100 ==

== ENCOUNTER 2023-06-23 12:06 | Outpatient (AMB) | payer OTHER, SELFPAY ==
--- NOTE | 2023-06-23 12:08 | MHC.OFFVIS ---
Intake Vital Signs 06/23/23 12:09 Height 5 ft 3 in Weight 288 lb BMI 51.0 Intake Visit Reasons: OV - Bilateral Knee OA - Last Inject 03/17/23 Intake Note: Violeta is a 73 year old female who presents today for a follow up of her bilateral knee pain. Last injected bilaterally on 10/28/2022. Patient reports that these injections were helpful and she would like to repeat today. Allergies peanut [PEANUT] Allergy (Severe, Verified 01/13/23 10:52) ITCHY, SWELLING seafood Allergy (Severe, Verified 01/13/23 10:52) Rash tomato [TOMATO] Allergy (Severe, Verified 01/13/23 10:52) ITCHY, SWELLING aspirin [ASA] Allergy (Intermediate, Verified 01/13/23 10:52) ITCHY,ANXIOUS, itching, rash Iodinated Contrast Media [IV CONTRAST] Allergy (Intermediate, Verified 01/13/23 10:52) HIVES plantain [PLANTAIN] Allergy (Intermediate, Verified 01/13/23 10:52) ITCHY/SWELLING HPI OV - Bilateral Knee OA - Last Inject 03/17/23 HPI Details 73 yo F with bilateral knee pain and OA who benefits from semi regular injections. She feels these help her manage ADLs with minimal pain and they last from 2-3 months. [facility] Medical History Allergic rhinitis Allergic rhinitis Anemia Angina pectoris Anxiety CAD (coronary artery disease) CKD (chronic kidney disease), stage III COPD (chronic obstructive pulmonary disease) COPD (chronic obstructive pulmonary disease) Edema Encounter for testing for latent tuberculosis infection Fatty liver GERD (gastroesophageal reflux disease) Gout HTN (hypertension) Morbid obesity Myocardial infarction On beta prashant at home ZOEY (obstructive sleep apnea) ZOEY treated with BiPAP Osteoarthritis Osteopenia Osteoporosis Pain in left shoulder Panic attacks Pre-diabetes PVD (peripheral vascular disease) Restrictive lung disease Rheumatoid arthritis Schizophrenia Screening for viral disease Surgical History History of bladder suspension procedure History of colonoscopy (~2021) History of esophagogastroduodenoscopy (EGD) History of hysterectomy History of lumpectomy of right breast History of lumpectomy of right breast (06/21/22) History of tubal ligation Hx of colonoscopy Family History Mother Leukemia Brother Colon cancer Brother Leukemia Sister Breast cancer Sister Vaginal cancer Sister Breast cancer Sister Breast cancer Daughter Thyroid disease Social History Alcohol intake: never Patient Tobacco Use Status: Never used Tobacco Second Hand Smoke Exposure: No Female Reproductive History Menstrual Age of Menarche: 13 Physical Exam Vital Signs: BMI result Body Mass Index 51.0 Extrem Other: TTP medial compartment bilateral knees Office Procedures Joint Injection/Drain Joint Injection/Drain Details: Injected 1 mL of Decadron and 3 mL 1% lidocaine and 3 mL of 0.25% Marcaine. Site was prepped using aseptic technique. Patient tolerated the procedure well. Primary Site: right knee Secondary Site: left knee Approach Used: anterolateral Coding - Large joint - Glenohumeral/Tronchanteric Bursa/Intraarticular Procedure code (CPT) selection complete Results Reviewed Results Reviewed: 06/23/23 12:11 BUPivacaine MPF 0.25 % [Sensorcaine-MPF 0.25% 10 ML] 10 ml .ROUTE .STK-MED ONE Lidocaine HCl 2 % MPF [Xylocaine 2 % MPF] 5 ml .ROUTE .STK-MED ONE dexAMETHasone sod phosphate [Decadron] 4 mg .ROUTE .STK-MED ONE 06/23/23 12:12 Lidocaine HCl 1 % [Xylocaine 1 %] 2 ml .ROUTE .STK-MED ONE dexAMETHasone sod phosphate [Decadron] 4 mg .ROUTE .STK-MED ONE Assessment & Plan Assessment & Plan (1) Bilateral primary osteoarthritis of knee: Code(s): M17.0 - Bilateral primary osteoarthritis of knee Plan: Injected bilateral knees today. I recommend continue to remain as active as possible. (2) Morbid obesity: Code(s): E66.01 - Morbid (severe) obesity due to excess calories Plan: I recommend weight loss (3) Fibromyalgia, primary: Code(s): M79.7 - Fibromyalgia Coding Level of Care Code Est Pt Level 3 (83808) Diagnoses Bilateral primary osteoarthritis of knee M17.0 Morbid obesity E66.01 Fibromyalgia, primary M79.7 CPT Codes Coding - 20280 Large joint: 42264 - Large joint ([id number]) Coding - Joint 7: - Glenohumeral/Tronchanteric Bursa/Intraarticular ([id number])
[2023-06-23 12:09] VITALS: BMI 51.0
== END 2023-06-23 12:37 | disposition home or self-care (01) ==
PROVIDERS: Visit Provider Orthopaedic Surgery
DX: M17.0 Bilateral primary osteoarthritis of knee (principal); E66.01 Morbid (severe) obesity due to excess calories; M79.7 Fibromyalgia
CPT/HCPCS: 20610

== ENCOUNTER → 2023-06-23 12:06 | Outpatient (BNVA) | payer OTHER, SELFPAY | PROVIDERS: Visit Provider Orthopaedic Surgery | DX: M17.0 Bilateral primary osteoarthritis of knee (principal); M79.7 Fibromyalgia; M81.0 Age-related osteoporosis without current pathological fracture; E66.01 Morbid (severe) obesity due to excess calories; Z68.43 Body mass index [BMI] 50.0-59.9, adult | CPT/HCPCS: 20610; J1100 ==

== ENCOUNTER 2023-07-12 | Outpatient (REF) | payer OTHER, SELFPAY | END 2023-07-12 00:01 | disposition home or self-care (01) | LOC: CF | PROVIDERS: PCP Internal Medicine; Visit Provider Student in an Organized Health Care Education/Training Program | DX: M13.80 Other specified arthritis, unspecified site (principal); M1A.0790 Idiopathic chronic gout, unspecified ankle and foot, without tophus (tophi); M79.7 Fibromyalgia; Z79.899 Other long term (current) drug therapy | CPT/HCPCS: 99212 ==

== ENCOUNTER 2023-07-12 13:52 | Outpatient (AMB) | payer OTHER, SELFPAY ==
[2023-07-12 14:06] VITALS: BP 142/78; PULSE 78; TEMP 36.7; O2SAT 95; BMI 52.1
--- NOTE | 2023-07-12 14:06 | MHC.OFFVIS ---
Intake Vital Signs 07/12/23 14:06 Height 5 ft 3 in Weight 294 lb 1.546 oz BMI 52.1 BP 142/78 H Blood Pressure Location Rt brachial Position Sitting Pulse 78 Pulse Source Pulse Oximeter Temp 98.1 F Temp Source Skin Pulse Oximetry (%) 95 Intake Visit Reasons: RA/Gout Intake Note: Pt seen today for RA/Gout follow up. Administrative Support Specialist Required: No Administrative Support Specialist Name: Radhika [id number] Accompanied by: RUSH SEATER Allergies peanut [PEANUT] Allergy (Severe, Verified 07/12/23 14:09) ITCHY, SWELLING seafood Allergy (Severe, Verified 07/12/23 14:09) Rash tomato [TOMATO] Allergy (Severe, Verified 07/12/23 14:09) ITCHY, SWELLING aspirin [ASA] Allergy (Intermediate, Verified 07/12/23 14:09) ITCHY,ANXIOUS, itching, rash Iodinated Contrast Media [IV CONTRAST] Allergy (Intermediate, Verified 07/12/23 14:09) HIVES plantain [PLANTAIN] Allergy (Intermediate, Verified 07/12/23 14:09) ITCHY/SWELLING Medication List - Last Reconciled 07/12/23 by Diego Stallworth MD acetaminophen 1,000 mg PO Q8H PRN albuterol sulfate 90 mcg/actuation (ProAir HFA) 2 puffs inhalation Q4-6H PRN 30 days allopurinol 300 mg PO QAM atorvastatin 80 mg PO DAILY calcium carbonate-vitamin D3 600 mg-10 mcg (400 unit) 1 tab PO BID colchicine (gout) 0.6 mg PO Q OTHER DAY cyanocobalamin (vitamin B-12) 1,000 mcg sublingual DAILY diclofenac sodium 1% 4 grams topical QID diphenhydramine HCl 2% (Benadryl) 1 appl topical BID estradiol 0.01%(0.1mg/gram) grams vaginal ferrous sulfate 325 mg PO QAM fexofenadine 180 mg PO QAM fluticasone propion-salmeterol 250-50 mcg/dose 1 ea PO BID fluticasone propionate 50 mcg/actuation 2 sprays intranasal DAILY folic acid 1 mg PO QAM gabapentin 300 mg PO BID hydrochlorothiazide 12.5 mg PO QAM hydroxychloroquine 200 mg PO BID inhalational spacing device As directed lancets As directed latanoprost 0.005% 1 drp ophthalmic (eye) BEDTIME losartan 100 mg PO QAM metoprolol succinate ER 50 mg PO DAILY montelukast 10 mg PO QPM nystatin 1 appl topical BID olanzapine 20 mg PO BEDTIME olanzapine 15 mg PO BEDTIME pantoprazole 40 mg PO DAILY sertraline 100 mg PO DAILY [thumb spica As directed] HPI HPI Comments History of Present Illness Details 73-year-old female with rheumatoid arthritis, generalized osteoarthritis, gout and fibromyalgia returns for follow-up. On hydroxychloroquine 200 mg Twice daily, did not follow-up with an cosmetics counter manager. She is on allopurinol 300 mg daily and colchicine every other day. She continues to have diffuse pain especially in her thumbs hands, shoulders, knees. She states that methotrexate was helpful but it was discontinued. She does not believe that hydroxychloroquine is helpful. Initial history: This is a 72-year-old female with a pretty extensive past medical history including CAD, hypertension, prediabetes, generalized osteoarthritis who presents for evaluation of diffuse pain. Patient has had multiple joint pains for many years. She has had multiple knee intra-articular steroid injections with short-lived relief. She also had had multiple injections in her back by pain management. Patient also complains of some occasional swelling and stiffness of her hands. Two years ago she had rashes on her neck and upper back. She saw Dermatology an there were plans for a skin biopsy but does lesions were never biopsied. Those lesions are hypopigmented now. 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 Morbid obesity Myocardial infarction On beta prashant at home ZOEY (obstructive sleep apnea) ZOEY treated with BiPAP Osteoarthritis Osteopenia Osteoporosis Pain in left shoulder Panic attacks Pre-diabetes PVD (peripheral vascular disease) Restrictive lung disease Rheumatoid arthritis Schizophrenia Screening for viral disease Surgical History History of bladder suspension procedure History of colonoscopy (~2021) History of esophagogastroduodenoscopy (EGD) History of hysterectomy History of lumpectomy of right breast History of lumpectomy of right breast (06/21/22) History of tubal ligation Hx of colonoscopy Family History Mother Leukemia Brother Colon cancer Brother Leukemia Sister Breast cancer Sister Vaginal cancer Sister Breast cancer Sister Breast cancer Daughter Thyroid disease Social History Alcohol intake: never Patient Tobacco Use Status: Never used Tobacco Second Hand Smoke Exposure: No Female Reproductive History Menstrual Age of Menarche: 13 Review of Systems Musc Reports back pain, Reports arthralgias, Reports joint swelling and Reports stiffness Physical Exam Vital Signs: Last Vital Signs Temp 98.1 F 07/12/23 14:06 Pulse 78 07/12/23 14:06 BP 142/78 H 07/12/23 14:06 Pulse Ox 95 07/12/23 14:06 BMI result Body Mass Index 52.1 Const General: cooperative Nutritional Appearance: obese morbidly obese Orientation/consciousness: patient oriented x3 Limitations: ambulation with walker HEENT Head: Yes normocephalic and Yes atraumatic Resp Effort & Inspection: normal respiratory effort and able to speak in complete sentences Cardio Other: Unable to auscultate due to body habitus GI Inspection: No distended Palpation (GI): Soft to palpation and nontender Neuro General: patient oriented x3 Extrem Other: Multiple fibromyalgia tender points Bilateral tender wrists, MCPs, PIPs, DIPs. Bilateral 1st CMC joint tenderness Bilateral 1st MCP joint tenderness Normal range of motion of both shoulders Normal nailfold capillaroscopy Results Reviewed Results Reviewed: Right wrist MRI 09/2022? Impression 1. Small bony fragment adjacent to the ulnar styloid, possibly corresponding to the corticated fragment described on the x-ray report of 08/24/2022? 2. Altered signal involving the triangular fibrocartilage complex with increased signal on T2 FS images of its foveal and styloid attachments, concerning for degenerative partial tears? 3. Partial-thickness tear of the volar component of the scapular in 8 ligament.?? 4. Moderate radioscaphoid synovitis with joint infusion 5. Multilocular ganglion cyst along the volar aspect of the radial scaphoid joint 6. Subluxation of the extensor carpi ulnaris tendon along the ulnar styloid with suggestion of a sub sheath injury/tear with tendinosis Assessment & Plan Assessment & Plan (1) Seronegative arthritis: Comment: Diagnosed 09/2022 HCQ started 09/2022 Methotrexate added 11/2022 effective but DC 02/2023 d.t renal insufficiency HCQ DC'd 06/2023 Code(s): M13.80 - Other specified arthritis, unspecified site Plan: This is a 73-year-old female with complex past medical history of presents for follow-up of a seronegative arthritis. She is on hydroxychloroquine 200 mg Twice daily which she feels isn't effective. She felt that methotrexate was affected but it had been discontinued due to renal insufficiency Will DC hydroxychloroquine today but, patient is not compliant with Ophthalmology follow-up. Labs before next visit in 3 months, will consider starting a low-dose methotrexate (2) Gout: Comment: Initial uric acid level in 2019 9.8 Code(s): M10.9 - Gout, unspecified Qualifiers: Gout site: toe Gout etiology: idiopathic Chronicity: chronic Laterality: unspecified laterality Presence of tophus: without tophus Qualified Code(s): M1A.0790 - Idiopathic chronic gout, unspecified ankle and foot, without tophus (tophi) Plan: Gout well controlled on allopurinol 300 mg daily. Uric acid level at target. Continue allopurinol 300 mg daily and colchicine every other day (3) Fibromyalgia, primary: Code(s): M79.7 - Fibromyalgia Plan: Discussed management of fibromyalgia with patient. Is a noninflammatory, non-autoimmune central afferent processing disorder leading to a diffuse pain syndrome. Patient would benefit from increased physical activity. Patient's mobility is quite limited. I suggested doing some stretching exercises at home. She is already on gabapentin 300 mg Twice daily Plan I spent 27 minutes reviewing patient's chart, evaluating patient, ordering diagnostic workup, counseling patient and documenting in the chart Orders: Orders Complete Blood Count Auto Diff 3 Months M13.80 - Other specified arthritis, unspecified site Comprehensive Met. Panel 3 Months M13.80 - Other specified arthritis, unspecified site C Reactive Protein 3 Months M13.80 - Other specified arthritis, unspecified site Erythrocyte Sedimentation Rate 3 Months M13.80 - Other specified arthritis, unspecified site Uric Acid 3 Months M10.9 - Gout, unspecified Medications: Refilled diclofenac sodium 1% 4 grams topical QID 100 grams 1RF Discontinued folic acid Discontinued Reason: Doctor's Order 1 mg PO QAM 90 tabs 1RF hydroxychloroquine Discontinued Reason: Doctor's Order 200 mg PO BID 180 tabs 1RF Coding Level of Care Code Est Pt Level 4 (50790) Diagnoses Seronegative arthritis M13.80 Gout M1A.0790 Gout site: toe Gout etiology: idiopathic Chronicity: chronic Laterality: unspecified laterality Presence of tophus: without tophus Fibromyalgia, primary M79.7
== END 2023-07-12 14:46 | disposition home or self-care (01) ==
PROVIDERS: PCP Internal Medicine; Visit Provider Student in an Organized Health Care Education/Training Program
DX: M13.80 Other specified arthritis, unspecified site (principal); M1A.0790 Idiopathic chronic gout, unspecified ankle and foot, without tophus (tophi); M79.7 Fibromyalgia
CPT/HCPCS: 99214

== ENCOUNTER 2023-07-20 11:29 | Outpatient (AMB) | payer OTHER, SELFPAY ==
--- NOTE | 2023-07-20 11:42 | A.OFFVIS_ITS ---
Intake Vital Signs 07/20/23 11:44 Height 5 ft 3 in Weight 292 lb BMI 51.7 BP 160/70 H Blood Pressure Location Lt brachial Position Sitting Respiration 16 Pulse 79 Pulse Source Pulse Oximeter Pulse Oximetry (%) 95 Oxygen Delivery Method Room Air Intake Visit Reasons: Follow up on further procedures for her back pain Allergies peanut [PEANUT] Allergy (Severe, Verified 07/20/23 11:42) ITCHY, SWELLING seafood Allergy (Severe, Verified 07/20/23 11:42) Rash tomato [TOMATO] Allergy (Severe, Verified 07/20/23 11:42) ITCHY, SWELLING aspirin [ASA] Allergy (Intermediate, Verified 07/20/23 11:42) ITCHY,ANXIOUS, itching, rash Iodinated Contrast Media [IV CONTRAST] Allergy (Intermediate, Verified 07/20/23 11:42) HIVES plantain [PLANTAIN] Allergy (Intermediate, Verified 07/20/23 11:42) ITCHY/SWELLING HPI HPI Comments History of Present Illness Details Violeta presents back to the office today for follow up chronic back pain. She is accompanied by her SURGICAL SERVICES DIRECTOR. She was referred to neurosurgery at last visit, had difficulty getting an appointment scheduled. She has appointment with them 08/12 at 9am. While she was struggling to make an appointment with their office she had made an appointment with our office. Patient c/w lower back pain, today is 10/10 which has not improved with diagnostic SIJ injections or right side L3-L4 dorsal ramus L5 diagnostic MBBs in the past. Pain is worse with movement, activity and improves some with rest. Denies red flag symptoms including new loss of bowel, bladder or saddle anesthesia. Prior: Violeta is a pleasant 72 year old solomon islander speaking female who presents today to the office today with complaints of low back pain.? She went for diagnostic medial branch block on the right side L3-L4 dorsal ramus L5 on 12/14/2022.? She reported very minimal pain relief from 9-to? 6 for the 4th our after the injection only.? The pain quickly returned back to pre injection level.? Immediately after procedure the pain was not changed.? Therefore this is not her pain generator.? Considering her history of weakness in the right lower extremity associated with MRI changes dictated as below I think this patient could be a good candidate for neurosurgical evaluation.? She does not remember where she had MRI done.? She needs to find out where the MRI was performed and bring on the appointment with neurosurgeon the MRI disc.? The MRI report dictated is as below however on the MRI report there is no indication on what facility perform the MRI. ?She reports the pain travels across the lower back and radiates into the right leg with associated numbness, tingling, weakness throughout the entire right leg. She has had multiple falls over the past few months due to the pain and weakness. She denies any bowel/bladder dysfunction or saddle anesthesia. She reports pain onset was gradual, constant and rates the pain a 9-10/10. She states the pain is interfering with sleep, activities of daily living and she cannot function normally.? Her pain is exacerbated by any activity. She reports some alleviation with recumbency. She has been taking gabapentin 300 mg TID with little to no effect on pain. She is also on allopurinol for gout. She has also tried voltaren, lidocaine patches, NSAIDS including indomethacin, heat/ice and tylenol with minimal effect. She has attempted physical therapy in the past with minimal alleviation in symptoms. She reports having lumbar injections in the past without effect and believes they were performed at [facility]. She also reports being evaluated by neurosurgery who offered surgery but patient deferred. She last had imaging of the lumbar spine, this report is dictated below. Her past medical history is significant for HTN, OA, PVD, Mood disorder, asthma, CKD 3 ? 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 Morbid obesity Myocardial infarction On beta prashant at home ZOEY (obstructive sleep apnea) ZOEY treated with BiPAP Osteoarthritis Osteopenia Osteoporosis Pain in left shoulder Panic attacks Pre-diabetes PVD (peripheral vascular disease) Restrictive lung disease Rheumatoid arthritis Schizophrenia Screening for viral disease Surgical History History of bladder suspension procedure History of colonoscopy (~2021) History of esophagogastroduodenoscopy (EGD) History of hysterectomy History of lumpectomy of right breast History of lumpectomy of right breast (06/21/22) History of tubal ligation Hx of colonoscopy Family History Mother Leukemia Brother Colon cancer Brother Leukemia Sister Breast cancer Sister Vaginal cancer Sister Breast cancer Sister Breast cancer Daughter Thyroid disease Social History Alcohol intake: never Patient Tobacco Use Status: Never used Tobacco Second Hand Smoke Exposure: No Female Reproductive History Menstrual Age of Menarche: 13 Review of Systems Const All systems reviewed & are unremarkable except as noted in HPI and below Physical Exam Vital Signs: Last Vital Signs Pulse 79 07/20/23 11:44 Resp 16 07/20/23 11:44 BP 160/70 H 07/20/23 11:44 Pulse Ox 95 07/20/23 11:44 Oxygen Delivery Method Room Air 07/20/23 11:44 BMI result Body Mass Index 51.7 General: awake, alert, oriented. Answers questions appropriately. Fully engaged in examination. Skin: warm, dry, intact HEENT: Normocephalic. Hearing intact. Cardiac: External chest normal in appearance. Respiratory: No cough, audible wheezing or stridor. Abdomen: without gross distension. MS: ambulates with roller walker and forward lean. Neurological: Oriented to person, place, time and situation. Thought process intact. Psychiatric: Appropriate mood and affect. Good judgment and insight. Results Reviewed Results Reviewed: Assessment & Plan Assessment & Plan (1) Lumbar radiculopathy: Code(s): M54.16 - Radiculopathy, lumbar region (2) Sacroiliac joint pain: Code(s): M53.3 - Sacrococcygeal disorders, not elsewhere classified (3) Spondylosis of lumbar spine: Code(s): M47.816 - Spondylosis without myelopathy or radiculopathy, lumbar region (4) Spinal stenosis at L4-L5 level: Code(s): M48.061 - Spinal stenosis, lumbar region without neurogenic claudication Plan Violeta presented back to the office today for follow. She is pending evaluation by neurosurgery, appointment scheduled for 08/12/23 at 9am. Details of appointment provided to patient today. Patient advised to follow up with neurosurgery, if they determine that she is not a candidate for surgery she will return to our office for further interventional pain management. She was provided brochure on MILD procedure today for her review which would be considered if she is not candidate for neurosurgical evaluation. Follow up here as needed. Follow up with neurosurgery as planned. Coding Level of Care Code Est Pt Level 3 (65747) Diagnoses Lumbar radiculopathy M54.16 Sacroiliac joint pain M53.3 Spondylosis of lumbar spine M47.816 Spinal stenosis at L4-L5 level M48.061
[2023-07-20 11:44] VITALS: BP 160/70; PULSE 79; RESP 16; O2SAT 95; BMI 51.7
== END 2023-07-20 12:02 | disposition home or self-care (01) ==
PROVIDERS: PCP Internal Medicine; Visit Provider Registered Nurse Emergency
DX: M54.16 Radiculopathy, lumbar region (principal); M53.3 Sacrococcygeal disorders, not elsewhere classified; M47.816 Spondylosis without myelopathy or radiculopathy, lumbar region; M48.061 Spinal stenosis, lumbar region without neurogenic claudication
CPT/HCPCS: 99213

== ENCOUNTER → 2023-07-20 11:29 | Outpatient (BNVA) | payer OTHER, SELFPAY | PROVIDERS: PCP Internal Medicine; Visit Provider Anesthesiology | DX: M47.26 Other spondylosis with radiculopathy, lumbar region (principal); M53.3 Sacrococcygeal disorders, not elsewhere classified; M48.061 Spinal stenosis, lumbar region without neurogenic claudication | CPT/HCPCS: 99212 ==

== ENCOUNTER 2023-10-11 13:36 | Outpatient (REF) | payer OTHER, SELFPAY ==
[2023-10-11 13:57] LABS: MANUAL DIFF FLAG NO
[2023-10-11 14:01] LABS: Basophils Percent Auto 0.5 % (0-2); Eosinophils Absolute Auto 0.2 X10*3/uL (0.0-0.4); Eosinophils Percent Auto 2.3 % (0-4); Hematocrit 43.1 % (37.0-47.0); Hemoglobin 13.8 g/dl (12.0-16.0); Imm Gran Abs Auto 0.04 X10*3/uL (0.00-0.03); Imm Gran Pct Auto 0.5 % (0.0-0.4); Lymphocytes Absolute Auto 2.5 X10*3/uL (1.2-4.9); Lymphocytes Percent Auto 30.3 % (20-40); Mean Corpuscular Hemoglobin 30.1 pg (27.0-33.0); Mean Corpuscular Volume 94.1 fL (80.0-98.0); Mean Platelet Volume 10.6 fL (9.4-12.3); Monocytes Absolute Auto 0.6 X10*3/uL (0.1-1.2); Monocytes Percent Auto 7.6 % (2-11); Neutrophils Absolute Auto 4.8 x10*3/uL (2.0-8.3); Neutrophils Percent Auto 58.8 % (45-73); Platelet Count 239 X10*3/uL (160-400); Red Blood Count 4.58 X10*6/uL (4.20-5.50); Red Cell Distribution Width 14.3 % (11.0-16.0); White Blood Count 8.1 X10*3/uL (4.8-10.8)
[2023-10-11 14:32] LABS: Alanine Aminotransferase 14 U/L (0-31); Albumin Level 4.1 g/dL (3.5-5.0); Alkaline Phosphatase 125 U/L (39-117); Anion Gap 14 (12-20); Aspartate Amino Transferase 22 U/L (5-31); Bilirubin Total 0.4 mg/dL (0.0-1.0); Blood Urea Nitrogen 23 mg/dL (9-16); C Reactive Protein 0.51 mg/dL (< or = 0.50); Calcium 9.6 mg/dL (8.4-10.2); Carbon Dioxide 30 mmol/L (22-29); Chloride 103 mmol/L (96-108); Estimated Glomerular Filt Rate 38; Glucose Random 94 mg/dL (60-115); Potassium 3.5 mmol/L (3.3-5.1); Sodium 143 mmol/L (135-145); Total Protein 6.8 g/dL (6.5-8.0); Uric Acid 6.4 mg/dL (2.4-5.7)
[2023-10-11 14:39] LABS: Erythrocyte Sedimentation Rate 19 MM/HR (0-20)
== END 2023-10-11 13:37 | disposition home or self-care (01) ==
LOC: HO.LAB 13:36
PROVIDERS: PCP Internal Medicine; Visit Provider Student in an Organized Health Care Education/Training Program
DX: M10.9 Gout, unspecified (principal); M13.80 Other specified arthritis, unspecified site
CPT/HCPCS: 36415; 80053; 84550; 85025; 85652; 86140

== ENCOUNTER 2024-02-09 13:13 | Outpatient (REF) | payer OTHER, SELFPAY ==
[2024-02-09 13:43] LABS: MANUAL DIFF FLAG NO
[2024-02-09 14:00] LABS: Basophils Percent Auto 0.3 % (0-2); Eosinophils Absolute Auto 0.4 X10*3/uL (0.0-0.4); Eosinophils Percent Auto 3.9 % (0-4); Hematocrit 40.7 % (37.0-47.0); Hemoglobin 13.4 g/dl (12.0-16.0); Imm Gran Abs Auto 0.03 X10*3/uL (0.00-0.03); Imm Gran Pct Auto 0.3 % (0.0-0.4); Lymphocytes Absolute Auto 1.7 X10*3/uL (1.2-4.9); Lymphocytes Percent Auto 18.8 % (20-40); Mean Corpuscular HGB Conc 32.9 g/dl (31.0-35.0); Mean Corpuscular Hemoglobin 30.8 pg (27.0-33.0); Mean Corpuscular Volume 93.6 fL (80.0-98.0); Mean Platelet Volume 10.7 fL (9.4-12.3); Monocytes Absolute Auto 0.7 X10*3/uL (0.1-1.2); Monocytes Percent Auto 7.9 % (2-11); Neutrophils Absolute Auto 6.2 x10*3/uL (2.0-8.3); Neutrophils Percent Auto 68.8 % (45-73); Platelet Count 256 X10*3/uL (160-400); Red Blood Count 4.35 X10*6/uL (4.20-5.50)
[2024-02-09 14:12] LABS: Estimated Average Glucose 120 mg/dL; Hemoglobin A1c % 5.8 % (<6.0)
[2024-02-09 15:51] LABS: Anion Gap 13 (12-20); Blood Urea Nitrogen 30 mg/dL (9-16); Calcium 8.7 mg/dL (8.4-10.2); Carbon Dioxide 29 mmol/L (22-29); Chloride 105 mmol/L (96-108); Estimated Glomerular Filt Rate 38; Potassium 3.6 mmol/L (3.3-5.1); Sodium 143 mmol/L (135-145)
== END 2024-02-09 13:14 | disposition home or self-care (01) ==
LOC: HO.LAB 13:13
PROVIDERS: Absent Provider Physician Assistant; PCP Internal Medicine; Visit Provider Student in an Organized Health Care Education/Training Program
DX: N18.32 Chronic kidney disease, stage 3b (principal); I10 Essential (primary) hypertension; E11.9 Type 2 diabetes mellitus without complications; E87.70 Fluid overload, unspecified
CPT/HCPCS: 36415; 80051; 82306; 82310; 82565; 83036; 84520; 85025

== ENCOUNTER 2024-03-01 11:23 | Outpatient (REF) | payer OTHER, SELFPAY ==
--- NOTE | ~2024-03-01 | XR_ITS ---
EXAMINATION: XR LUMBOSACRAL SPINE CLINICAL INFORMATION: Chronic bilateral low back pain with bilateral sciatica. Pain is worsening. Difficulty with imaging due to patient's body habitus, best attempts made. Patient had difficulty staying on left side. COMPARISON: 05/05/2023 TECHNIQUE: Three views of the lumbosacral spine. FINDINGS: Levoscoliosis of the lumbar spine. Advanced multilevel degenerative changes in the lumbar spine severe at L2-L3, L3-L4, L4-L5 and L5-S1 with loss of disc space height and vacuum phenomenon. Facet arthritis in the lower lumbar spine. Minimal 1-2 mm anterolisthesis of L4 on L5 redemonstrated. XR/XR lumbar spine 2-3V IMPRESSION: Advanced multilevel degenerative changes in the lumbar spine severe at L2-L3, L3-L4, L4-L5 and L5-S1
[2024-03-01 13:21] LABS: MANUAL DIFF FLAG NO
[2024-03-01 13:31] LABS: Basophils Percent Auto 0.4 % (0-2); Eosinophils Absolute Auto 0.3 X10*3/uL (0.0-0.4); Eosinophils Percent Auto 2.7 % (0-4); Hematocrit 44.2 % (37.0-47.0); Hemoglobin 14.3 g/dl (12.0-16.0); Imm Gran Abs Auto 0.03 X10*3/uL (0.00-0.03); Imm Gran Pct Auto 0.3 % (0.0-0.4); Lymphocytes Absolute Auto 2.2 X10*3/uL (1.2-4.9); Lymphocytes Percent Auto 22.7 % (20-40); Mean Corpuscular HGB Conc 32.4 g/dl (31.0-35.0); Mean Corpuscular Hemoglobin 30.5 pg (27.0-33.0); Mean Corpuscular Volume 94.2 fL (80.0-98.0); Mean Platelet Volume 11.4 fL (9.4-12.3); Monocytes Absolute Auto 0.9 X10*3/uL (0.1-1.2); Neutrophils Absolute Auto 6.4 x10*3/uL (2.0-8.3); Neutrophils Percent Auto 64.9 % (45-73); Platelet Count 271 X10*3/uL (160-400); Red Blood Count 4.69 X10*6/uL (4.20-5.50); Red Cell Distribution Width 14.3 % (11.0-16.0); White Blood Count 9.8 X10*3/uL (4.8-10.8)
[2024-03-01 13:57] LABS: Anion Gap 9 (12-20); Blood Urea Nitrogen 22 mg/dL (9-16); Calcium 9.2 mg/dL (8.4-10.2); Carbon Dioxide 31 mmol/L (22-29); Chloride 106 mmol/L (96-108); Estimated Glomerular Filt Rate 38; Glucose Random 117 mg/dL (60-115); Potassium 4.1 mmol/L (3.3-5.1); Sodium 142 mmol/L (135-145)
[2024-03-01 14:05] LABS: TSH reflex Free T4 3.29 uIU/mL (0.32-4.0)
== END 2024-03-01 11:24 | disposition home or self-care (01) ==
LOC: HO.HHCL 11:23
PROVIDERS: Visit Provider Internal Medicine
DX: I10 Essential (primary) hypertension (principal); M54.42 Lumbago with sciatica, left side; M54.41 Lumbago with sciatica, right side; G89.29 Other chronic pain
CPT/HCPCS: 36415; 72100; 80048; 84443; 85025

== ENCOUNTER 2024-04-02 12:08 | Outpatient (REF) | payer OTHER, SELFPAY ==
[2024-04-02 12:33] LABS: MANUAL DIFF FLAG NO
[2024-04-02 13:41] LABS: Basophils Percent Auto 0.3 % (0-2); Eosinophils Absolute Auto 0.2 X10*3/uL (0.0-0.4); Eosinophils Percent Auto 2.7 % (0-4); Hematocrit 42.9 % (37.0-47.0); Hemoglobin 13.9 g/dl (12.0-16.0); Imm Gran Abs Auto 0.03 X10*3/uL (0.00-0.03); Imm Gran Pct Auto 0.3 % (0.0-0.4); Lymphocytes Absolute Auto 2.8 X10*3/uL (1.2-4.9); Lymphocytes Percent Auto 31.2 % (20-40); Mean Corpuscular HGB Conc 32.4 g/dl (31.0-35.0); Mean Corpuscular Hemoglobin 30.8 pg (27.0-33.0); Mean Corpuscular Volume 95.1 fL (80.0-98.0); Mean Platelet Volume 11.4 fL (9.4-12.3); Monocytes Absolute Auto 0.7 X10*3/uL (0.1-1.2); Monocytes Percent Auto 8.2 % (2-11); Neutrophils Absolute Auto 5.2 x10*3/uL (2.0-8.3); Neutrophils Percent Auto 57.3 % (45-73); Platelet Count 262 X10*3/uL (160-400); Red Blood Count 4.51 X10*6/uL (4.20-5.50); Red Cell Distribution Width 14.2 % (11.0-16.0); White Blood Count 9.1 X10*3/uL (4.8-10.8)
[2024-04-02 14:18] LABS: Erythrocyte Sedimentation Rate 17 MM/HR (0-20)
[2024-04-02 14:19] LABS: Alanine Aminotransferase 16 U/L (0-31); Albumin Level 3.8 g/dL (3.5-5.0); Alkaline Phosphatase 143 U/L (39-117); Anion Gap 14 (12-20); Aspartate Amino Transferase 17 U/L (5-31); Bilirubin Direct 0.1 mg/dL (0.0-0.5); Bilirubin Total 0.4 mg/dL (0.0-1.0); Blood Urea Nitrogen 20 mg/dL (9-16); C Reactive Protein 0.39 mg/dL (< or = 0.50); Calcium 9.6 mg/dL (8.4-10.2); Carbon Dioxide 30 mmol/L (22-29); Chloride 102 mmol/L (96-108); Cholesterol 154 mg/dL (<200); Estimated Glomerular Filt Rate 38; Glucose Random 80 mg/dL (60-115); HDL Cholesterol 47 mg/dL (>40); LDL Cholesterol Calculated 86 mg/dL (<100); Sodium 142 mmol/L (135-145); Total Protein 6.6 g/dL (6.5-8.0); Triglycerides 105 mg/dL (<150)
[2024-04-02 14:37] LABS: Uric Acid 5.5 mg/dL (2.4-5.7)
[2024-04-02 14:41] LABS: Vitamin D 25-OH Total 40.3 ng/mL (>30)
[2024-04-03 09:43] LABS: HBS Num1 0.62 mIU/mL (0-7.99); HBc Num1 0.06 S/CO (0.00-0.79); HBsAGNum1 0.19 S/CO (0.00-0.99); Hepatitis A Antibody IgM 0.16 Index (0-0.79); Hepatitis B Core Antibody Nonreactive (Nonreactive); Hepatitis B Surface Antigen Negative (Negative); ~HepC Num1 0.05 S/CO (0.00-0.79); ~Hepatitis A Antibody IgM Nonreactive (Nonreactive); ~Hepatitis B Surface Antibody NONREACTIVE (Nonreactive); ~Hepatitis C Antibody Nonreactive (Nonreactive)
[2024-04-05 08:04] LABS: TS Negative Control Passed; TS Panel A 6; TS Panel B 0; TS Positive Control Passed; TSpotTB Borderline (Negative)
== END 2024-04-02 12:09 | disposition home or self-care (01) ==
LOC: HO.LAB 12:08
PROVIDERS: Absent Provider Internal Medicine; Visit Provider Student in an Organized Health Care Education/Training Program
DX: I10 Essential (primary) hypertension (principal); M1A.0790 Idiopathic chronic gout, unspecified ankle and foot, without tophus (tophi); M13.80 Other specified arthritis, unspecified site; Z11.7 Encounter for testing for latent tuberculosis infection; Z11.59 Encounter for screening for other viral diseases; Z72.89 Other problems related to lifestyle
CPT/HCPCS: 36415; 80053; 80061; 80076; 82248; 82306; 84550; 85025; 85652; 86140; 86481; 86704; 86706; 86709; 86803; 87340

== ENCOUNTER 2024-04-24 09:50 | Outpatient (AMB) | payer OTHER, SELFPAY ==
--- NOTE | 2024-04-24 10:12 | A.OFFVIS_ITS ---
Vital Signs 04/24/24 10:13 Height 5 ft 3 in Weight 287 lb 14.779 oz BMI 51.0 BP 130/60 Blood Pressure Location Rt radial Position Sitting Pulse 72 Pulse Source Pulse Oximeter Intake Visit Reasons: RA/GOUT Intake Note: Patient presents today for RA/ GOUT follow up visit. Gas Furnace Installer Required: No Gas Furnace Installer Name: Refusal Signed Accompanied by: REGIONAL TELECOMMUNICATIONS SPECIALIST Allergies peanut [PEANUT] Allergy (Severe, Verified 04/24/24 10:16) ITCHY, SWELLING seafood Allergy (Severe, Verified 04/24/24 10:16) Rash tomato [TOMATO] Allergy (Severe, Verified 04/24/24 10:16) ITCHY, SWELLING aspirin [ASA] Allergy (Intermediate, Verified 04/24/24 10:16) ITCHY,ANXIOUS, itching, rash Iodinated Contrast Media [IV CONTRAST] Allergy (Intermediate, Verified 04/24/24 10:16) HIVES plantain [PLANTAIN] Allergy (Intermediate, Verified 04/24/24 10:16) ITCHY/SWELLING Medication List - Last Reconciled 04/24/24 by Diego Stallworth MD acetaminophen 1,000 mg PO Q8H PRN albuterol sulfate 90 mcg/actuation (ProAir HFA) 2 puffs inhalation Q4-6H PRN 30 days allopurinol 300 mg PO QAM atorvastatin 80 mg PO DAILY calcium carbonate-vitamin D3 600 mg-10 mcg (400 unit) 1 tab PO BID colchicine 0.6 mg PO Q OTHER DAY cyanocobalamin (vitamin B-12) 1,000 mcg sublingual DAILY diclofenac sodium 1% 4 grams topical QID diphenhydramine HCl 2% (Benadryl) 1 appl topical BID estradiol 0.01%(0.1mg/gram) grams vaginal ferrous sulfate 325 mg PO QAM fexofenadine 180 mg PO QAM fluticasone propion-salmeterol 250-50 mcg/dose 1 ea PO BID fluticasone propionate 50 mcg/actuation 2 sprays intranasal DAILY gabapentin 300 mg PO BID hydrochlorothiazide 12.5 mg PO QAM inhalational spacing device As directed lancets As directed latanoprost 0.005% 1 drp ophthalmic (eye) BEDTIME losartan 100 mg PO QAM metoprolol succinate ER 50 mg PO DAILY montelukast 10 mg PO QPM nystatin 1 appl topical BID olanzapine 20 mg PO BEDTIME olanzapine 15 mg PO BEDTIME Otezla Starter (apremilast) lot # [id number] NS pantoprazole 40 mg PO DAILY sertraline 100 mg PO DAILY [thumb spica As directed] HPI Comments Details: 73-year-old female with seronegative arthritis returns for follow-up. She has not on any DMARDs. She continues to have diffuse joint pain, especially her back, hands, muscles. Initial history: This is a 72-year-old female with a pretty extensive past medical history including CAD, hypertension, prediabetes, generalized osteoarthritis who presents for evaluation of diffuse pain. Patient has had multiple joint pains for many years. She has had multiple knee intra-articular steroid injections with short-lived relief. She also had had multiple injections in her back by pain management. Patient also complains of some occasional swelling and stiffness of her hands. Two years ago she had rashes on her neck and upper back. She saw Dermatology an there were plans for a skin biopsy but does lesions were never biopsied. Those lesions are hypopigmented now. PENDING SALE TO [facility] Medical History (Updated 04/24/24 @ 11:10 by Diego Stallworth MD) Pain in left shoulder Screening for viral disease COPD (chronic obstructive pulmonary disease) Restrictive lung disease Allergic rhinitis ZOEY (obstructive sleep apnea) Edema PVD (peripheral vascular disease) On beta prashant at home Osteopenia Gout Osteoporosis Osteoarthritis Rheumatoid arthritis Anemia Panic attacks Anxiety Schizophrenia Pre-diabetes CKD (chronic kidney disease), stage III GERD (gastroesophageal reflux disease) Fatty liver Myocardial infarction CAD (coronary artery disease) Angina pectoris HTN (hypertension) Morbid obesity ZOEY treated with BiPAP COPD (chronic obstructive pulmonary disease) Allergic rhinitis Surgical History History of colonoscopy (~2021) History of lumpectomy of right breast (06/21/22) History of bladder suspension procedure History of esophagogastroduodenoscopy (EGD) Hx of colonoscopy History of hysterectomy History of tubal ligation History of lumpectomy of right breast Family History Mother Leukemia Brother Colon cancer Brother Leukemia Sister Breast cancer Sister Vaginal cancer Sister Breast cancer Sister Breast cancer Daughter Thyroid disease Social History Alcohol intake: never Patient Tobacco Use Status: Never used Tobacco Second Hand Smoke Exposure: No Female Reproductive History Menstrual Age of Menarche: 13 Review of Systems Musc Reports back pain, Reports arthralgias and Reports joint swelling Skin/Breast Reports rash Physical Exam Vital Signs: Last Vital Signs Pulse 72 04/24/24 10:13 BP 130/60 04/24/24 10:13 BMI result Body Mass Index 51.0 Const General: cooperative Nutritional Appearance: obese morbidly obese Orientation/consciousness: patient oriented x3 Limitations: ambulation with walker HEENT Head: Yes normocephalic and Yes atraumatic Resp Effort & Inspection: normal respiratory effort and able to speak in complete sentences Cardio Other: Unable to auscultate due to body habitus Skin Other: Multiple patches highly suspicious for psoriasis Neuro General: patient oriented x3 Extrem Other: Multiple fibromyalgia tender points Bilateral tender wrists, MCPs, PIPs, DIPs. Bilateral 1st CMC joint tenderness Bilateral 1st MCP joint tenderness Normal range of motion of both shoulders Normal nailfold capillaroscopy Results Reviewed Results Reviewed: Right wrist MRI 09/2022? Impression 1. Small bony fragment adjacent to the ulnar styloid, possibly corresponding to the corticated fragment described on the x-ray report of 08/24/2022? 2. Altered signal involving the triangular fibrocartilage complex with increased signal on T2 FS images of its foveal and styloid attachments, concerning for degenerative partial tears? 3. Partial-thickness tear of the volar component of the scapular in 8 ligament.?? 4. Moderate radioscaphoid synovitis with joint infusion 5. Multilocular ganglion cyst along the volar aspect of the radial scaphoid joint 6. Subluxation of the extensor carpi ulnaris tendon along the ulnar styloid with suggestion of a sub sheath injury/tear with tendinosis Assessment & Plan Assessment & Plan (1) Seronegative arthritis: Comment: Diagnosed 09/2022 HCQ started 09/2022 Methotrexate added 11/2022 effective but DC 02/2023 d.t renal insufficiency HCQ DC'd 06/2023 Code(s): M13.80 - Other specified arthritis, unspecified site Category: Medical Plan: This is a 73-year-old female with seronegative arthritis who presents for follow-up. She has not on any DMARDs. On exam today she has multiple patches suspicious for psoriasis. I think her diagnosis is psoriatic arthritis. I provided patient with an Otezla starter kit sample. Advised patient to call the office in a few weeks to report improvement/no improvement or side effects. If Otezla is well tolerated, we will start working on prior authorization Follow-up in 2-3 months (2) Gout: Comment: Initial uric acid level in 2019 9.8 Code(s): M10.9 - Gout, unspecified Category: Medical Qualifiers: Gout site: toe Gout etiology: idiopathic Chronicity: chronic Laterality: unspecified laterality Presence of tophus: without tophus Qualified Code(s): M1A.0790 - Idiopathic chronic gout, unspecified ankle and foot, without tophus (tophi) Plan: Gout well controlled on allopurinol 300 mg daily. Uric acid level at target 5.5 mg/dl, Continue allopurinol 300 mg daily and colchicine 0.6 mg every other day (3) Fibromyalgia, primary: Code(s): M79.7 - Fibromyalgia Category: Medical (4) Latent tuberculosis by blood test: Code(s): Z22.7 - Latent tuberculosis Category: Medical Plan: Positive T spot test. Chest x-ray in 2021 unremarkable. Patient does not recall ever being exposed to tuberculosis. Patient might need biologic treatment. 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
[2024-04-24 10:13] VITALS: BP 130/60; PULSE 72; BMI 51.0
== END 2024-04-24 10:57 | disposition home or self-care (01) ==
LOC: HO.RHE 09:50
PROVIDERS: PCP Internal Medicine; Visit Provider Student in an Organized Health Care Education/Training Program
DX: M13.80 Other specified arthritis, unspecified site (principal); M1A.0790 Idiopathic chronic gout, unspecified ankle and foot, without tophus (tophi); M79.7 Fibromyalgia; Z22.7 Latent tuberculosis
CPT/HCPCS: 99214

== ENCOUNTER → 2024-04-24 09:50 | Outpatient (BNVA) | payer OTHER, SELFPAY | PROVIDERS: PCP Internal Medicine; Visit Provider Student in an Organized Health Care Education/Training Program | DX: L40.0 Psoriasis vulgaris (principal); M13.80 Other specified arthritis, unspecified site; M1A.0790 Idiopathic chronic gout, unspecified ankle and foot, without tophus (tophi); M79.7 Fibromyalgia; Z22.7 Latent tuberculosis | CPT/HCPCS: 99212 ==

== ENCOUNTER 2024-05-04 13:04 | Outpatient (REF) | payer OTHER, SELFPAY ==
--- NOTE | ~2024-05-04 | XR_ITS ---
EXAMINATION: XR CHEST CLINICAL INFORMATION: Latent tuberculosis. COMPARISON: 08/09/2022 TECHNIQUE: 2 views of the chest were obtained. FINDINGS: There is no gross pneumothorax. Lung volumes are low. Heart size is normal. Mild left basilar opacities likely represent subsegmental atelectasis/scar. No pleural effusion. No new focal consolidation to suggest pneumonia. XR/XR chest 2V IMPRESSION: Mild left basilar opacities likely represent subsegmental atelectasis/scar.
== END 2024-05-04 13:05 | disposition home or self-care (01) ==
LOC: HO.XRAY 13:04
PROVIDERS: PCP Internal Medicine; Visit Provider Internal Medicine
DX: Z22.7 Latent tuberculosis (principal)
CPT/HCPCS: 71046; 99202

== ENCOUNTER 2024-05-04 13:04 | Outpatient (AMB) | payer OTHER, SELFPAY ==
--- NOTE | 2024-05-04 13:06 | A.OFFVIS_ITS ---
Intake Visit Reasons: reff rheu latent tb Medication Reconciliation Technician Required: Yes Medication Reconciliation Technician Services: Medication Reconciliation Technician Present Medication Reconciliation Technician Name: Faye Cain [facility] Information Interpreted: clinical only Allergies peanut [PEANUT] Allergy (Severe, Verified 04/24/24 10:16) ITCHY, SWELLING seafood Allergy (Severe, Verified 04/24/24 10:16) Rash tomato [TOMATO] Allergy (Severe, Verified 04/24/24 10:16) ITCHY, SWELLING aspirin [ASA] Allergy (Intermediate, Verified 04/24/24 10:16) ITCHY,ANXIOUS, itching, rash Iodinated Contrast Media [IV CONTRAST] Allergy (Intermediate, Verified 04/24/24 10:16) HIVES plantain [PLANTAIN] Allergy (Intermediate, Verified 04/24/24 10:16) ITCHY/SWELLING HPI HPI reff rheu latent tb: Details: She is referred for positive T spot. She has h/o possible exposure as child and treatment She has no hemoptysis or lymphadenopathy [facility] Medical History Pain in left shoulder Screening for viral disease COPD (chronic obstructive pulmonary disease) Restrictive lung disease Allergic rhinitis ZOEY (obstructive sleep apnea) Edema PVD (peripheral vascular disease) On beta prashant at home Osteopenia Gout Osteoporosis Osteoarthritis Rheumatoid arthritis Anemia Panic attacks Anxiety Schizophrenia Pre-diabetes CKD (chronic kidney disease), stage III GERD (gastroesophageal reflux disease) Fatty liver Myocardial infarction CAD (coronary artery disease) Angina pectoris HTN (hypertension) Morbid obesity ZOEY treated with BiPAP COPD (chronic obstructive pulmonary disease) Allergic rhinitis Surgical History History of colonoscopy (~2021) History of lumpectomy of right breast (06/21/22) History of bladder suspension procedure History of esophagogastroduodenoscopy (EGD) Hx of colonoscopy History of hysterectomy History of tubal ligation History of lumpectomy of right breast Family History Mother Leukemia Brother Colon cancer Brother Leukemia Sister Breast cancer Sister Vaginal cancer Sister Breast cancer Sister Breast cancer Daughter Thyroid disease Social History Alcohol intake: never Patient Tobacco Use Status: Never used Tobacco Second Hand Smoke Exposure: No Female Reproductive History Menstrual Age of Menarche: 13 Review of Systems Const All systems reviewed & are unremarkable except as noted in HPI and below Physical Exam Const General: cooperative Orientation/consciousness: patient oriented x3 HEENT Head: Yes normal to inspection Mouth: Normal oral and palatal mucosa present Eyes General: appearance normal, both eyes and all related structures Pupils: Equal, round and reactive pupils present Resp Effort & Inspection: normal respiratory effort Cardio Rate: regular rate Rhythm: regular rhythm GI Palpation (GI): Soft to palpation and nontender General: Yes no CVA tenderness Back/Spine/Pelvis Back: no CVA tenderness Skin General skin exam: no rashes or lesions noted Neuro General: patient oriented x3 Cranial nerves: Yes CN's II-XII intact bilaterally and Yes Equal, round and reactive pupils present Extrem General: Yes normal to inspection Psych Appearance: grossly normal Assessment & Plan Assessment & Plan (1) Latent tuberculosis by blood test: Code(s): Z22.7 - Latent tuberculosis Category: Medical Plan: Recheck Tspot is borderline Would hold rx per patient but check CXR. Patient is not interested in further treatment at this time. She most likely can take Otezla withour further rx and just monitor for any cou gh or lymphadenopathy Orders: Orders XR chest 2V 05/04/24 Z22.7 - Latent tuberculosis Coding Level of Care Code New Pt Level 3 (84661) Diagnoses Latent tuberculosis by blood test Z22.7
== END 2024-05-04 13:58 | disposition home or self-care (01) ==
LOC: HO.HID 13:04
PROVIDERS: PCP Internal Medicine; Visit Provider Internal Medicine
DX: Z22.7 Latent tuberculosis (principal)
CPT/HCPCS: 99203

== ENCOUNTER → 2024-05-30 | Outpatient (REF) | payer OTHER, SELFPAY | LOC: HO.SL | PROVIDERS: Visit Provider Internal Medicine | DX: G47.33 Obstructive sleep apnea (adult) (pediatric) (principal) | CPT/HCPCS: 95810 ==

== ENCOUNTER → 2024-06-04 19:30 | Outpatient (REF) | payer OTHER, SELFPAY | LOC: HO.SL 19:30 | PROVIDERS: PCP Internal Medicine; Visit Provider Internal Medicine | DX: Z13.89 Encounter for screening for other disorder (principal) ==

== ENCOUNTER → 2024-06-04 19:30 | Outpatient (BNV) | payer OTHER, SELFPAY | PROVIDERS: Visit Provider Psychiatry & Neurology Neurology | DX: R06.83 Snoring (principal) | CPT/HCPCS: 95810 ==

== ENCOUNTER 2024-07-23 13:41 | Outpatient (AMB) | payer OTHER, SELFPAY ==
--- NOTE | 2024-07-23 14:15 | A.OFFVIS_ITS ---
Vital Signs 07/23/24 14:16 Height 5 ft 3 in Weight 277 lb BMI 49.1 BP 122/78 Blood Pressure Location Lt brachial Position Sitting Pulse 102 H Pulse Source Pulse Oximeter Pulse Oximetry (%) 95 Oxygen Delivery Method Room Air Intake Visit Reasons: COPD Intake Note: pt is here for follow up and states she is feeling good. 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: No Allergies peanut [PEANUT] Allergy (Severe, Verified 07/23/24 14:43) ITCHY, SWELLING seafood Allergy (Severe, Verified 07/23/24 14:43) Rash tomato [TOMATO] Allergy (Severe, Verified 07/23/24 14:43) ITCHY, SWELLING aspirin [ASA] Allergy (Intermediate, Verified 07/23/24 14:43) ITCHY,ANXIOUS, itching, rash Iodinated Contrast Media [IV CONTRAST] Allergy (Intermediate, Verified 07/23/24 14:43) HIVES plantain [PLANTAIN] Allergy (Intermediate, Verified 07/23/24 14:43) ITCHY/SWELLING Medication List - Last Reconciled 07/23/24 by Jaden Srivastava MD acetaminophen 1,000 mg PO Q8H PRN albuterol sulfate 90 mcg/actuation (ProAir HFA) 2 puffs inhalation Q4-6H PRN 30 days allopurinol 300 mg PO QAM atorvastatin 80 mg PO DAILY calcium carbonate-vitamin D3 600 mg-10 mcg (400 unit) 1 tab PO BID colchicine 0.6 mg PO Q OTHER DAY cyanocobalamin (vitamin B-12) 1,000 mcg sublingual DAILY diclofenac sodium 1% 4 grams topical QID diphenhydramine HCl 2% (Benadryl) 1 appl topical BID estradiol 0.01%(0.1mg/gram) grams vaginal ferrous sulfate 325 mg PO QAM fexofenadine 180 mg PO QAM fluticasone propion-salmeterol 250-50 mcg/dose 1 ea PO BID fluticasone propionate 50 mcg/actuation 2 sprays intranasal DAILY gabapentin 300 mg PO BID hydrochlorothiazide 12.5 mg PO QAM inhalational spacing device As directed lancets As directed latanoprost 0.005% 1 drp ophthalmic (eye) BEDTIME losartan 100 mg PO QAM metoprolol succinate ER 50 mg PO DAILY montelukast 10 mg PO QPM nystatin 1 appl topical BID olanzapine 20 mg PO BEDTIME olanzapine 15 mg PO BEDTIME Otezla (apremilast) 30 mg PO BID NS Otezla Starter (apremilast) lot # [id number] NS pantoprazole 40 mg PO DAILY sertraline 100 mg PO DAILY [thumb spica As directed] Do you need a note to return to daycare/school/sports/work: No HPI HPI COPD: Details: ZHENG IS 74 YEARS OLD VERY PLEASANT FEMALE WITH MORBID OBESITY, IMPAIRED LOCOMOTION, HISTORY OF OBSTRUCTIVE SLEEP APNEA, AND COPD. SHE COMES AFTER 6 MONTHS FOR ROUTINE FOLLOW-UP SHE HAS LOST ABOUT 10 LB OF WEIGHT. BREATHING IVORY SHE IS DOING WELL AND FEELS OKAY. HAS MINIMAL COUGH. SHE DOES NOT USE CPAP ANYMORE, AND IS SLEEPING WELL AT NIGHT. SHE HAD A POLYSOMNOGRAM STUDY IN THE SLEEP LAB IN MAY OF THIS YEAR AND IT WAS REPORTED TO BE NEGATIVE FOR SLEEP APNEA SHE WAS FOUND TO HAVE FREQUENT PL MS ACTIVITY WITH PLMS AROUSAL INDEX 7.8. I TALKED TO HER ABOUT POSSIBLE SYMPTOMS OF RESTLESS LEGS SYNDROME AND SHE DENIES. SHE HAD A CBC AND COMPLETE METABOLIC PROFILE IN MARCH OF THIS YEAR AND THEY WERE ALL IN NORMAL RANGE. [facility] Medical History Pain in left shoulder Screening for viral disease COPD (chronic obstructive pulmonary disease) Restrictive lung disease Allergic rhinitis ZOEY (obstructive sleep apnea) Edema PVD (peripheral vascular disease) On beta prashant at home Osteopenia Gout Osteoporosis Osteoarthritis Rheumatoid arthritis Anemia Panic attacks Anxiety Schizophrenia Pre-diabetes CKD (chronic kidney disease), stage III GERD (gastroesophageal reflux disease) Fatty liver Myocardial infarction CAD (coronary artery disease) Angina pectoris HTN (hypertension) Morbid obesity ZOYE treated with BiPAP COPD (chronic obstructive pulmonary disease) Allergic rhinitis Surgical History History of colonoscopy (~2021) History of lumpectomy of right breast (06/21/22) History of bladder suspension procedure History of esophagogastroduodenoscopy (EGD) Hx of colonoscopy History of hysterectomy History of tubal ligation History of lumpectomy of right breast Family History Mother Leukemia Brother Colon cancer Brother Leukemia Sister Breast cancer Sister Vaginal cancer Sister Breast cancer Sister Breast cancer Daughter Thyroid disease Social History Alcohol intake: never Patient Tobacco Use Status: Never used Tobacco Second Hand Smoke Exposure: No Female Reproductive History Menstrual Age of Menarche: 13 Review of Systems Const All systems reviewed & are unremarkable except as noted in HPI and below ENT Reports nasal congestion (CONTROLLED WITH MEDS ) Card Denies chest pain, Denies leg edema and Denies dyspnea on exertion Resp Reports cough (MILD ), Denies dyspnea on exertion and Denies wheezing GI Reports no additional complaints Musc Reports no additional complaints Neuro Reports no additional complaints Aller/Immun Denies wheezing Physical Exam Vital Signs: Last Vital Signs Pulse 102 H 07/23/24 14:16 BP 122/78 07/23/24 14:16 Pulse Ox 95 07/23/24 14:16 Oxygen Delivery Method Room Air 07/23/24 14:16 BMI result Body Mass Index 49.1 Const General: comfortable, no acute distress, alert and awake Orientation/consciousness: patient oriented x3 HEENT Head: Yes normal to inspection General nose exam: No nasal polyps present, No nasal discharge present and Other nasal findings present (Mild nasal congestion) Face and sinus: Yes sinuses nontender Mouth: oropharynx normal Throat: No posterior oropharynx normal (Oropharynx is narrow and crowded, Mallampati class 3) Eyes General: appearance normal, both eyes and all related structures Neck Neck: Yes normal visual inspection, Yes no lymphadenopathy, Yes trachea midline and Yes no JVD Thyroid: Thyroid normal Chest Chest palpation & inspection: normal inspection of the chest, normal palpation of entire chest wall and no tenderness Resp Other: Percussion note is resonant, slightly diminished because of the thick chest wall. Breath sounds are distant with prolonged expiratory phase. I did not hear any wheezes rhonchi or crepitations. Cardio Palpation: PMI not normal (Not palpable) Rate: regular rate Rhythm: regular rhythm Heart sounds: no gallops and no murmurs GI Palpation (GI): Soft to palpation, nontender, No hepatosplenomegaly present, no masses and Other GI palpation findings present (Abdomen is obese and protub erant) Auscultation: normal bowel sounds Back/Spine/Pelvis Thoracic/Lumbar Spine: thoracic and lumbar spine normal to inspection and thoraco-lumbar ROM limited Skin General skin exam: no rashes or lesions noted Neuro General: patient oriented x3 and no focal motor deficits Cranial nerves: Yes CN's II-XII intact bilaterally Extrem General: Yes normal to inspection, Yes no clubbing, cyanosis or edema and Yes no calf tenderness Psych Appearance: grossly normal and well kempt Speech and movement: Normal speech and movement present Assessment & Plan Assessment & Plan (1) COPD (chronic obstructive pulmonary disease): Comment: SHE HAS SYMPTOMS CONSISTENT WITH COPD. BUT THE SYMPTOMS MAY BE MORE DUE TO RESTRICTIVE PULMONARY DISORDER. Code(s): J44.9 - Chronic obstructive pulmonary disease, unspecified Category: Medical Plan: ADVISED TO CONTINUE USING ADVAIR 250-50 1 INHALATION B.I.D. AND ALBUTEROL 2 PUFFS Q 4-6 HOURS P.R.N. WHICH SHE USES ONLY ONCE IN A WHILE . (2) Restrictive lung disease: Comment: MODERATE RESTRICTIVE PULMONARY DISORDER RELATED TO MORBID OBESITY. EXPLAINED TO THE PATIENT Code(s): J98.4 - Other disorders of lung Category: Medical Plan: ADVISED TO DO DEEP BREATHING EXERCISES every 3-4 hours during the day, (3) Allergic rhinitis: Comment: THIS IS A CHRONIC AND ONGOING PROBLEM, Code(s): J30.9 - Allergic rhinitis, unspecified Category: Medical Plan: [place] : CONTINUE MONTELUKAST 10 MG DAILY, AND MAY USE FEXOFENADINE 180 MG ONCE A DAY P.R.N.. (4) ZOEY (obstructive sleep apnea): Comment: SHE HAS PAST HISTORY OF OBSTRUCTIVE SLEEP APNEA . HAS BEEN USING CPAP IN THE PAST. SHE HAD A POLYSOMNOGRAM STUDY IN THE SLEEP LAB IN MAY OF THIS YEAR, FOR POSSIBLE NEW DEVICE. THIS STUDY CAME BACK NEGATIVE Code(s): G47.33 - Obstructive sleep apnea (adult) (pediatric) Category: Medical Plan: EXPLAINED THE RESULTS OF SLEEP STUDY TO HER. TOLD HER THAT SHE DOES NOT NEED TO USE THE CPAP AT NIGHT. SHE IS VERY HAPPY TO HEAR THAT. I DID CAUTION HER THAT SHE HAS TO KEEP ON LOSING WEIGHT, AND IF SHE PUTS ON SOME WEIGHT AGAIN SHE WILL DEVELOP SLEEP APNEA. (5) Morbid obesity: Comment: She remains morbidly obese, because she cannot do any exercise , she has lost a few lb of weight as compared to last time. Code(s): E66.01 - Morbid (severe) obesity due to excess calories Category: Medical Plan: ENCOURAGED TO KEEP ON LOSING WEIGHT BY CONTROLLING THE DIETARY INTAKE Coding Level of Care Code Est Pt Level 4 (84309) Diagnoses COPD (chronic obstructive pulmonary disease) J44.9 Restrictive lung disease J98.4 Allergic rhinitis J30.9 ZOEY (obstructive sleep apnea) G47.33 Morbid obesity E66.01
[2024-07-23 14:16] VITALS: BP 122/78; PULSE 102; O2SAT 95; BMI 49.1
== END 2024-07-23 15:05 | disposition home or self-care (01) ==
PROVIDERS: PCP Internal Medicine; Visit Provider Internal Medicine
DX: J44.9 Chronic obstructive pulmonary disease, unspecified (principal); J98.4 Other disorders of lung; J30.9 Allergic rhinitis, unspecified; G47.33 Obstructive sleep apnea (adult) (pediatric); E66.01 Morbid (severe) obesity due to excess calories
CPT/HCPCS: 99214

== ENCOUNTER → 2024-07-23 13:41 | Outpatient (BNVA) | payer OTHER, SELFPAY | PROVIDERS: PCP Internal Medicine; Visit Provider Internal Medicine | DX: J44.9 Chronic obstructive pulmonary disease, unspecified (principal); J98.4 Other disorders of lung; J30.9 Allergic rhinitis, unspecified; E66.01 Morbid (severe) obesity due to excess calories; G47.33 Obstructive sleep apnea (adult) (pediatric); Z68.42 Body mass index [BMI] 45.0-49.9, adult | CPT/HCPCS: 99212 ==

== ENCOUNTER 2024-07-25 09:24 | Outpatient (REF) | payer OTHER, SELFPAY ==
[2024-07-25 12:47] LABS: Blood Urea Nitrogen 22 mg/dL (9-16); Estimated Glomerular Filt Rate 30
== END 2024-07-25 09:25 | disposition home or self-care (01) ==
LOC: HO.LAB 09:24
PROVIDERS: PCP Internal Medicine; Visit Provider Surgery
DX: D12.6 Benign neoplasm of colon, unspecified (principal); R19.7 Diarrhea, unspecified
CPT/HCPCS: 36415; 82565; 84520; 99212

== ENCOUNTER 2024-07-25 09:24 | Outpatient (AMB) | payer OTHER, SELFPAY ==
[2024-07-25 09:55] VITALS: BP 137/80; PULSE 83; BMI 50.0
--- NOTE | 2024-07-25 09:55 | MHC.OFFVIS ---
Vital Signs 07/25/24 09:55 Height 5 ft 3 in Weight 282 lb 2 oz BMI 50.0 BP 137/80 Blood Pressure Location Lt brachial Position Sitting Pulse 83 Intake Visit Reasons: recall colonoscopy ? Intake Note: Patient presents for recall colonoscopy. Pt c/o; per pt was refer to [facility] for her colonoscopy was unable to have it done due to her medical insurance not accepted at the facility, continued back pain radiates to the groin, admits to diarrhea, lump in the groins Communications Program Manager Required: Yes Communications Program Manager Language: Cleaner Services: Communications Program Manager Present Communications Program Manager Name: Siria Information Interpreted: non-clinical & clinical Accompanied by: Family/Other Allergies peanut [PEANUT] Allergy (Severe, Verified 07/31/24 09:16) ITCHY, SWELLING seafood Allergy (Severe, Verified 07/31/24 09:16) Rash tomato [TOMATO] Allergy (Severe, Verified 07/31/24 09:16) ITCHY, SWELLING aspirin [ASA] Allergy (Intermediate, Verified 07/31/24 09:16) ITCHY,ANXIOUS, itching, rash Iodinated Contrast Media [IV CONTRAST] Allergy (Intermediate, Verified 07/31/24 09:16) HIVES plantain [PLANTAIN] Allergy (Intermediate, Verified 07/31/24 09:16) ITCHY/SWELLING Medication List - Last Reconciled 08/07/24 by Brice Manzano MD acetaminophen 1,000 mg PO Q8H PRN albuterol sulfate 90 mcg/actuation (ProAir HFA) 2 puffs inhalation Q4-6H PRN 30 days allopurinol 300 mg PO QAM atorvastatin 80 mg PO DAILY calcium carbonate-vitamin D3 600 mg-10 mcg (400 unit) 1 tab PO BID colchicine 0.6 mg PO Q OTHER DAY cyanocobalamin (vitamin B-12) 1,000 mcg sublingual DAILY diclofenac sodium 1% 4 grams topical QID diphenhydramine HCl 2% (Benadryl) 1 appl topical BID estradiol 0.01%(0.1mg/gram) grams vaginal ferrous sulfate 325 mg PO QAM fexofenadine 180 mg PO QAM fluticasone propion-salmeterol 250-50 mcg/dose 1 ea PO BID fluticasone propionate 50 mcg/actuation 2 sprays intranasal DAILY gabapentin 300 mg PO BID hydrochlorothiazide 12.5 mg PO QAM inhalational spacing device As directed lancets As directed latanoprost 0.005% 1 drp ophthalmic (eye) BEDTIME losartan 100 mg PO QAM metoprolol succinate ER 50 mg PO DAILY montelukast 10 mg PO QPM nystatin 1 appl topical BID olanzapine 20 mg PO BEDTIME olanzapine 15 mg PO BEDTIME Otezla (apremilast) 30 mg PO BID NS Otezla Starter (apremilast) lot # [id number] NS pantoprazole 40 mg PO DAILY semaglutide (Ozempic) 0.25 mg subcut QWEEK sertraline 100 mg PO DAILY [thumb spica As directed] HPI HPI recall colonoscopy ?: Details: ? 74-year-old female here for follow-up for a tubular adenoma in the splenic flexure. I have known her for several years and she had been undergoing endoscopic for this. However, she continues to have had recurrence and I had recommended proceeding with resection. However, she does have multiple medical problems. She had recognize this. She understood that if the adenoma was not resected, she may have malignant transformation She did not want to proceed with resection. I have not seen her since 2021. She denies GI complaints. She admits to have had significant decrease in her mobility. She says she is no longer able to ambulate well. She is wheelchair-bound. She has had further increase in her weight. She has worsening shortness of breath especially with activity. [facility] Medical History Pain in left shoulder Screening for viral disease COPD (chronic obstructive pulmonary disease) Restrictive lung disease Allergic rhinitis ZOEY (obstructive sleep apnea) Edema PVD (peripheral vascular disease) On beta prashant at home Osteopenia Gout Osteoporosis Osteoarthritis Rheumatoid arthritis Anemia Panic attacks Anxiety Schizophrenia Pre-diabetes CKD (chronic kidney disease), stage III GERD (gastroesophageal reflux disease) Fatty liver Myocardial infarction CAD (coronary artery disease) Angina pectoris HTN (hypertension) Morbid obesity ZOEY treated with BiPAP COPD (chronic obstructive pulmonary disease) Allergic rhinitis Surgical History History of colonoscopy (~2021) History of lumpectomy of right breast (06/21/22) History of bladder suspension procedure History of esophagogastroduodenoscopy (EGD) Hx of colonoscopy History of hysterectomy History of tubal ligation History of lumpectomy of right breast Family History Mother Leukemia Brother Colon cancer Brother Leukemia Sister Breast cancer Sister Vaginal cancer Sister Breast cancer Sister Breast cancer Daughter Thyroid disease Social History Alcohol intake: never Patient Tobacco Use Status: Never used Tobacco Second Hand Smoke Exposure: No Female Reproductive History Menstrual Age of Menarche: 13 Review of Systems Const Denies chills and Denies fever(s) Card Denies chest pain, Reports dyspnea and Reports dyspnea on exertion Resp Denies cough, Reports dyspnea and Reports dyspnea on exertion GI Denies hematochezia and Denies change in bowel habits Denies hematuria Musc Denies back pain and Denies limited range of motion Neuro Denies focal weakness and Denies convulsions Psych Denies depression and Denies mood swings Physical Exam Vital Signs: Last Vital Signs Pulse 83 07/25/24 09:55 BP 137/80 07/25/24 09:55 BMI result Body Mass Index 50.0 Const Other: On wheelchair, morbidly obese, mild shortness of breath when speaking General: no acute distress Resp Other: Mild shortness of breath when speaking Cardio Rhythm: regular rhythm GI Other: Obese, soft, no guarding, no rebound, no tenderness Assessment & Plan Assessment & Plan (1) Tubular adenoma of colon: Code(s): D12.6 - Benign neoplasm of colon, unspecified Category: Medical Plan: She has had this flat tubular adenoma which has been recurring and I had recommended proceeding with a resection. However, she has multiple medical problems including paroxysmal apnea, COPD, morbid obesity and poor frailty score She did not want to proceed with the dissection. She says she wants to have a follow-up CT scan to see how the polyp has progressed. She is thinking of having a colonoscopy repeated as well. I will discuss this after her CT scan. I had previously referred her to a tertiary medical center in view of her multiple medical comorbidities to colon resection as at some point she says she was considering going ahead with surgery. She says that she did not have this done. I will rediscuss this with her when she has her CT scan completed. It does appear that her overall health has worsened significantly. She has restrictive lung disease and COPD and has significant shortness of breath with effort. She has gained significant amounts of weight as well. Orders: Orders Blood Urea Nitrogen 07/25/24 D12.6 - Benign neoplasm of colon, unspecified Creatinine 07/25/24 D12.6 - Benign neoplasm of colon, unspecified CT abdomen pelvis w IV con 07/25/24 D12.6 - Benign neoplasm of colon, unspecified Coding Level of Care Code Est Pt Level 3 (79861) Diagnoses Tubular adenoma of colon D12.6
== END 2024-07-25 11:52 | disposition home or self-care (01) ==
PROVIDERS: PCP Internal Medicine; Visit Provider Surgery
DX: D12.6 Benign neoplasm of colon, unspecified (principal)
CPT/HCPCS: 99213

== ENCOUNTER 2024-07-30 11:34 | Outpatient (AMB) | payer OTHER, SELFPAY ==
[2024-07-30 11:32] VITALS: BP 136/78; PULSE 94; BMI 49.6
--- NOTE | 2024-07-30 11:32 | A.OFFVIS_ITS ---
Vital Signs 07/30/24 11:32 Height 5 ft 3 in Weight 280 lb BMI 49.6 BP 136/78 Pulse 94 Pulse Source Pulse Oximeter Intake Visit Reasons: PsA Intake Note: Patient presents for follow up on PSA, last seen on 04/24/2024, she had also had her appointment with infectious disease. Allergies peanut [PEANUT] Allergy (Severe, Verified 07/30/24 11:35) ITCHY, SWELLING seafood Allergy (Severe, Verified 07/30/24 11:35) Rash tomato [TOMATO] Allergy (Severe, Verified 07/30/24 11:35) ITCHY, SWELLING aspirin [ASA] Allergy (Intermediate, Verified 07/30/24 11:35) ITCHY,ANXIOUS, itching, rash Iodinated Contrast Media [IV CONTRAST] Allergy (Intermediate, Verified 07/30/24 11:35) HIVES plantain [PLANTAIN] Allergy (Intermediate, Verified 07/30/24 11:35) ITCHY/SWELLING Medication List - Last Reconciled 07/30/24 by Diego Stallworth MD acetaminophen 1,000 mg PO Q8H PRN albuterol sulfate 90 mcg/actuation (ProAir HFA) 2 puffs inhalation Q4-6H PRN 30 days allopurinol 300 mg PO QAM atorvastatin 80 mg PO DAILY calcium carbonate-vitamin D3 600 mg-10 mcg (400 unit) 1 tab PO BID colchicine 0.6 mg PO Q OTHER DAY cyanocobalamin (vitamin B-12) 1,000 mcg sublingual DAILY diclofenac sodium 1% 4 grams topical QID diphenhydramine HCl 2% (Benadryl) 1 appl topical BID estradiol 0.01%(0.1mg/gram) grams vaginal ferrous sulfate 325 mg PO QAM fexofenadine 180 mg PO QAM fluticasone propion-salmeterol 250-50 mcg/dose 1 ea PO BID fluticasone propionate 50 mcg/actuation 2 sprays intranasal DAILY gabapentin 300 mg PO BID hydrochlorothiazide 12.5 mg PO QAM inhalational spacing device As directed lancets As directed latanoprost 0.005% 1 drp ophthalmic (eye) BEDTIME losartan 100 mg PO QAM metoprolol succinate ER 50 mg PO DAILY montelukast 10 mg PO QPM nystatin 1 appl topical BID olanzapine 20 mg PO BEDTIME olanzapine 15 mg PO BEDTIME Otezla (apremilast) 30 mg PO BID NS Otezla Starter (apremilast) lot # [id number] NS pantoprazole 40 mg PO DAILY semaglutide (Ozempic) 0.25 mg subcut QWEEK sertraline 100 mg PO DAILY [thumb spica As directed] HPI Comments Details: 74-year-old female with psoriatic arthritis returns for follow-up. She started Otezla 30 mg Twice daily after last visit. She has not had any side effects related to it. She states that she feels somewhat improved. Her ASSET AVAILABILITY LEADER states that her skin rashes are significantly improved Initial history: This is a 72-year-old female with a pretty extensive past medical history including CAD, hypertension, prediabetes, generalized osteoarthritis who presents for evaluation of diffuse pain. Patient has had multiple joint pains for many years. She has had multiple knee intra-articular steroid injections with short-lived relief. She also had had multiple injections in her back by pain management. Patient also complains of some occasional swelling and stiffness of her hands. Two years ago she had rashes on her neck and upper back. She saw Dermatology an there were plans for a skin biopsy but does lesions were never biopsied. Those lesions are hypopigmented now. [facility] Medical History (Updated 07/30/24 @ 11:58 by Diego Stallworth MD) Pain in left shoulder Screening for viral disease COPD (chronic obstructive pulmonary disease) Restrictive lung disease Allergic rhinitis ZOEY (obstructive sleep apnea) Edema PVD (peripheral vascular disease) On beta prashant at home Osteopenia Gout Osteoporosis Osteoarthritis Rheumatoid arthritis Anemia Panic attacks Anxiety Schizophrenia Pre-diabetes CKD (chronic kidney disease), stage III GERD (gastroesophageal reflux disease) Fatty liver Myocardial infarction CAD (coronary artery disease) Angina pectoris HTN (hypertension) Morbid obesity ZOEY treated with BiPAP COPD (chronic obstructive pulmonary disease) Allergic rhinitis Surgical History History of colonoscopy (~2021) History of lumpectomy of right breast (06/21/22) History of bladder suspension procedure History of esophagogastroduodenoscopy (EGD) Hx of colonoscopy History of hysterectomy History of tubal ligation History of lumpectomy of right breast Family History Mother Leukemia Brother Colon cancer Brother Leukemia Sister Breast cancer Sister Vaginal cancer Sister Breast cancer Sister Breast cancer Daughter Thyroid disease Social History Alcohol intake: never Patient Tobacco Use Status: Never used Tobacco Second Hand Smoke Exposure: No Female Reproductive History Menstrual Age of Menarche: 13 Review of Systems [facility] Reports back pain and Reports arthralgias Physical Exam Vital Signs: Last Vital Signs Pulse 94 07/30/24 11:32 BP 136/78 07/30/24 11:32 BMI result Body Mass Index 49.6 Const General: cooperative Nutritional Appearance: obese morbidly obese Orientation/consciousness: patient oriented x3 Limitations: ambulation with walker HEENT Head: Yes normocephalic and Yes atraumatic Resp Effort & Inspection: normal respiratory effort and able to speak in complete sentences Cardio Other: Unable to auscultate due to body habitus Skin Other: Rashes on legs are significantly improved Neuro General: patient oriented x3 Extrem Other: Multiple fibromyalgia tender points Swelling of wrists significantly improved. No active synovitis of hands, wrists, fingers Normal nailfold capillaroscopy Results Reviewed Results Reviewed: Right wrist MRI 09/2022? Impression 1. Small bony fragment adjacent to the ulnar styloid, possibly corresponding to the corticated fragment described on the x-ray report of 08/24/2022? 2. Altered signal involving the triangular fibrocartilage complex with increased signal on T2 FS images of its foveal and styloid attachments, concerning for degenerative partial tears? 3. Partial-thickness tear of the volar component of the scapular in 8 ligament.?? 4. Moderate radioscaphoid synovitis with joint infusion 5. Multilocular ganglion cyst along the volar aspect of the radial scaphoid joint 6. Subluxation of the extensor carpi ulnaris tendon along the ulnar styloid with suggestion of a sub sheath injury/tear with tendinosis Assessment & Plan Assessment & Plan (1) Psoriatic arthritis: Comment: Diagnosed 09/2022 as seronegative RA HCQ started 09/2022 Methotrexate added 11/2022 effective but DC 02/2023 d.t renal insufficiency HCQ DC'd 06/2023 Rash suspicious for psoriasis noted 04/2024. Dx changed PsA Otezla effective Code(s): L40.50 - Arthropathic psoriasis, unspecified Category: Medical Plan: This is a 74-year-old female with psoriatic arthritis who presents for follow- up. On Otezla 30 mg Twice daily. Well-tolerated. Doing much better. There is no active synovitis on exam. Continue with Otezla 30 mg Twice daily. Mild bump in creatinine but kidney function fluctuates. Repeat BMP in 1 month. If GFR remains persistently at 30 or less, we will reduce Otezla to 30 mg q.d. Labs before next visit in 3 months (2) Gout: Comment: Initial uric acid level in 2019 9.8 Code(s): M10.9 - Gout, unspecified Category: Medical Qualifiers: Gout site: toe Gout etiology: idiopathic Chronicity: chronic L aterality: unspecified laterality Presence of tophus: without tophus Qualified Code(s): M1A.0790 - Idiopathic chronic gout, unspecified ankle and foot, without tophus (tophi) Plan: Gout well controlled on allopurinol 300 mg daily. Most recent Uric acid level at target 5.5 mg/dl, Continue allopurinol 300 mg daily and colchicine 0.6 mg every other day. Check uric acid level before next visit (3) Fibromyalgia, primary: Code(s): M79.7 - Fibromyalgia Category: Medical (4) Latent tuberculosis by blood test: Code(s): Z22.7 - Latent tuberculosis Category: Medical Plan: Positive T spot test. Repeat was borderline Chest x-ray in 2021 unremarkable. Patient does not recall ever being exposed to tuberculosis. Patient was evaluated by Infectious Disease, did not require treatment Plan I spent 27 minutes reviewing patient's chart, evaluating patient, ordering diagnostic workup, counseling patient and documenting in the chart Orders: Orders Erythrocyte Sedimentation Rate 3 Months M13.80 - Other specified arthritis, unspecified site Basic Metabolic Panel 1 Month N17.9 - Acute kidney failure, unspecified Complete Blood Count Auto Diff 3 Months M13.80 - Other specified arthritis, unspecified site Comprehensive Met. 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
--- OUTSIDE RECORDS SUMMARY | 2024-07-30 11:35 | XMS_ITS | Continuity of Care Document ---
Author Organization [facility] Address [address] [place] [address] ve [address] [place] [address]- Care Team Providers Care Hand Brush Filler Name Role Phone Violeta Boo MD Primary Care Physici an Encounter [facility] Date(s): 10/19/22 - 11/18/[address] [place] [address]- Allergies, Adverse Reactions, Alerts Substance Reaction Severity Status aspirin Active Contrast Dye Active Medications cetirizine 10 mg oral tablet 1 tablet = 10 mg, By Mouth, Daily, Take tablet 2 hours before exam with methylprednisolone., # 1 each, 0 Refills, Maintenance, 10/28/22 11:16:00 [facility], [facility], Partial fill uponpatient request if the prescription is for a schedu... Start Date: 10/28/22 Status: Ordered methylPREDNISolone 32 mg oral tablet See Instructions, Take one tablet 12 hours before your exam and one tablet 2 hours before your exam., # 2 each, 0 Refills, Maintenance, 10/28/22 11:15:00 [facility], [facility], Partial fill upon patient request if the prescription is for... Start Date: 10/28/22 Status: Ordered PEG-3350 with Electrolytes (Eqv-NuLYTELY) oral powder for reconstitution 240 mL, By Mouth, Every 10 minutes, # 4,000 mL, 0 Refills, Maintenance, 11/01/22 11:30:00 EST, [facility], Please fill with ANY available gallon colon prep, 240 mL By Mouth Every 10 minutes Start Date: 11/01/22 Status: Ordered Patient Care team information Care Team Personnel Name: Violeta Boo MD Position: S Outreach Member Role: PCP Address: Address: [address] [place] [address] [address] [place] [address]- Care Team Related Persons Name: MADELINE MOREJON
--- OUTSIDE RECORDS SUMMARY | 2024-07-30 11:35 | XMS_ITS | Continuity of Care Document ---
Author Organization [facility] Address [address] [place] [address]- Care Team Providers Care Waistline Joiner Name Role Phone Tim Pascual MD, Violeta Crain Primary Care Physici an Encounter [facility] [place] Date(s): 11/24/23 - 12/24/23 [facility] [address] [place] [address]- [place] Allergies, Adverse Reactions, Alerts Substance Reaction Severity Status aspirin Active Contrast Dye Active Medications Advair 500 mcg-50 mcg Inhaler Inhalation, 2 times a day, 0 Refills, Maintenance, 04/11/15 15:37:09 Start Date: 04/11/15 Status: Ordered Advair Diskus 250 mcg-50 mcg inhalation powder 1, puffs, Inhalation, 2 times a day, Refills 0, Maintenance, 05/25/16 15:19:06 Start Date: 05/25/16 Status: Ordered Albuterol 0 Refills, Maintenance, 04/11/15 15:40:31 Start Date: 04/11/15 Status: Ordered Amlodipine 10 mg, By Mouth, Daily, Maintenance, 04/11/15 15:35:43 Start Date: 04/11/15 Status: Ordered Ammonium Lactate 12% Topically, 2 times a day, 0 Refills, Maintenance, 05/25/16 15:20:39 Start Date: 05/25/16 Status: Ordered atorvastatin 80 mg oral tablet 1 tablet = 80 mg, By Mouth, Daily, # 30 tablet, 0 Refills, Maintenance, 04/11/15 15:34:58, Tablet Start Date: 04/11/15 Status: Ordered Brimonidine-Timolol Ophthalmic 1 drops, Eyes, Both, Every 12 hours, 0 Refills, Maintenance, 05/25/16 15:18:50 Start Date: 05/25/16 Status: Ordered calcium-vitamin D 600 mg-400 intl units oral tablet 1 tablet, By Mouth, 2 times a day, # 60 tablet, 0 Refills, Maintenance, 04/11/15 15:33:38, Tablet Start Date: 04/11/15 Status: Ordered cetirizine 10 mg oral tablet 1 tablet = 10 mg, By Mouth, Daily, Take tablet 2 hours before exam with methylprednisolone., # 1 each, 0 Refills, Maintenance, 10/28/22 11:16:00 [facility], [facility], Partial fill uponpatient request if the prescription is for a schedu... Start Date: 10/28/22 Status: Ordered cetirizine 10 mg oral tablet 1 tablet = 10 mg, By Mouth, Daily, 0 Refills, Maintenance, 05/25/16 15:18:01 Start Date: 05/25/16 Status: Ordered cyclobenzaprine 10 mg oral tablet 10 mg, 1, tablet, By Mouth, 3 times a day, PRN, # 30 tablet, Refills 0, Maintenance, for spasm, 05/25/16 15:19:40 Start Date: 05/25/16 Status: Ordered fluticasone 100 mcg inhalation powder Inhalation, 2 times a day, 0 Refills, Maintenance, 05/25/16 15:20:18 Start Date: 05/25/16 Status: Ordered gabapentin 600 mg oral tablet 1 tablet = 600 mg, By Mouth, 3 times a day, # 90 tablet, 0 Refills, Maintenance, 04/11/15 15:36:49,Tablet Start Date: 04/11/15 Status: Ordered Hydrochlorothiazide = 25 mg, By Mouth, Daily, 0 Refills, Maintenance, 04/11/15 15:35:09 Start Date: 04/11/15 Status: Ordered ipratropium nasal 21 mcg/inh spray See Instructions, PRN Nasal Congestion, 1 spray each nostril BID, # 1 each, 4 Refills, Maintenance,01/28/17 10:49:04, 1 spray each nostril BID,PRN:Nasal Congestion Start Date: 01/28/17 Status: Ordered latanoprost 0.005% ophthalmic solution 1 drops, Eyes, Both, Daily at bedtime, # 3 mL, 0 Refills, Maintenance, 04/11/15 15:37:23, Ophth Solution Start Date: 04/11/15 Status: Ordered losartan 100 mg oral tablet 1 tablet = 100 mg, By Mouth, Daily, # 30 tablet, 0 Refills, Maintenance, 04/11/15 15:35:30, Tablet Start Date: 04/11/15 Status: Ordered methylPREDNISolone 32 mg oral tablet See Instructions, Take one tablet 12 hours before your exam and one tablet 2 hours before your exam., # 2 each, 0 Refills, Maintenance, 10/28/22 11:15:00 EST, [facility], Partial fill upon patient request if the prescription is for... Start Date: 10/28/22 Status: Ordered montelukast 10 mg oral tablet 1 tablet = 10 mg, By Mouth, Daily in PM, # 30 tablet, 0 Refills, Maintenance, 04/11/15 15:34:16, Tablet Start Date: 04/11/15 Status: Ordered omeprazole 20 mg oral enteric coated capsule 1 capsule = 20 mg, By Mouth, Daily, 0 Refills, Maintenance, 04/11/15 15:36:10 Start Date: 04/11/15 Status: Ordered PEG-3350 with Electrolytes (Eqv-GoLYTELY) oral powder for reconstitution See Instructions, 1 glass every 15-30 minutes until finished, # 4,000 mL, 0 Refills, Maintenance, 06/21/23 13:18:00 EDT, [facility], Partial fill upon patient request if the prescription is for a schedule II opioid drug., 1 glass e... Start Date: 06/21/23 Status: Ordered PEG-3350 with Electrolytes (Eqv-NuLYTELY) oral powder for reconstitution 240 mL, By Mouth, Every 10 minutes, # 4,000 mL, 0 Refills, Maintenance, 11/01/22 11:30:00 EST, [facility], Please fill with ANY available gallon colon prep, 240 mL By Mouth Every 10 minutes Start Date: 11/01/22 Status: Ordered perphenazine 4 mg oral tablet 1 tablet = 4 mg, By Mouth, 2 times a day, 0 Refills, Maintenance, 04/11/15 15:36:31 Start Date: 04/11/15 Status: Ordered PrednisoLONE Acetate 1% Ophth 1 drops, 4 times a day, 0 Refills, Maintenance, 04/11/15 15:40:20 Start Date: 04/11/15 Status: Ordered Proventil HFA 90 mcg/inh inhalation aerosol with adapter 2 puffs, Inhalation, 4 times a day, 0 Refills, Maintenance, 04/11/15 15:38:14 Start Date: 04/11/15 Status: Ordered sertraline 100 mg oral tablet 1 tablet = 100 mg, By Mouth, Daily, 0 Refills, Maintenance, 05/25/16 15:18:26 Start Date: 05/25/16 Status: Ordered traZODone 50 mg oral tablet 50 mg, 1, tablet, By Mouth, 3 times a day, Refills 0, Maintenance, 05/25/16 15:19:30 Start Date: 05/25/16 Status: Ordered Triamcinolone 0.1% Topical Topically, 0 Refills, Maintenance Start Date: 05/25/16 Status: Ordered Problem List Condition Confirmation Course Effective Dates Status H ealth Status Informant Anxiety Confirmed Active Asthma Confirmed Active Dyslipidemia Confirmed Active Limitation due to disability 1 Confirmed Active HTN (hypertension) Confirmed Active Obesity Confirmed Active Schizophrenia Confirmed Active 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
--- OUTSIDE RECORDS SUMMARY | 2024-07-30 11:35 | XMS_ITS | Continuity of Care Document ---
Author Organization [facility] Address [address] [place] [address]- Care Team Providers Care Taxicab Driver Name Role Phone Violeta Boo MD Primary Care Physici an [id number] Date(s): 12/03/22 - 01/02/23 [facility] [address] [place] [address]- Allergies, Adverse Reactions, Alerts Substance Reaction Severity Status aspirin Active Contrast Dye Active Medications cetirizine 10 mg oral tablet 1 tablet = 10 mg, By Mouth, Daily, Take tablet 2 hours before exam with methylprednisolone., # 1 each, 0 Refills, Maintenance, 10/28/22 11:16:00 EST, [facility], Partial fill uponpatient request if the prescription is for a schedu... Start Date: 10/28/22 Status: Ordered methylPREDNISolone 32 mg oral tablet See Instructions, Take one tablet 12 hours before your exam and one tablet 2 hours before your exam., # 2 each, 0 Refills, Maintenance, 10/28/22 11:15:00 EST, [facility], Partial fill upon patient request if the prescription is for... Start Date: 10/28/22 Status: Ordered PEG-3350 with Electrolytes (Eqv-NuLYTELY) oral powder for reconstitution 240 mL, By Mouth, Every 10 minutes, # 4,000 mL, 0 Refills, Maintenance, 11/01/22 11:30:00 EST, [facility], Please fill with ANY available gallon colon prep, 240 mL By Mouth Every 10 minutes Start Date: 11/01/22 Status: Ordered Patient Care team information Care Team Personnel Name: Violeta Boo MD Position: S Outreach Member Role: PCP Address: Address: [address] [place] [address] [address] [place] [address]- [place] Care Team Related Persons Name: MADELINE MOREJON
--- OUTSIDE RECORDS SUMMARY | 2024-07-30 11:35 | XMS_ITS | Continuity of Care Document ---
Author Organization [facility] ter Address [address] [place] [address]- Care Team Providers Care Limnology Teacher Name Role Phone Tim Pascual MD, Zheng Crain Primary Care Physici an Encounter [facility] [place] Date(s): 11/01/22 - 12/24/[address] [address]- Attending Physician: Humphrey Gudino MD Admitting Physician: Humphrey Gudino MD Allergies, Adverse Reactions, Alerts Substance Reaction Severity [...] each, 0 Refills, Maintenance, 10/28/22 11:16:00 EST, [facility], Partial fill uponpatient request if the [...] each, 0 Refills, Maintenance, 10/28/22 11:15:00 EST, [facility], Partial fill upon patient request if [...] mL, 0 Refills, Maintenance, 06/21/23 13:18:00 EDT, [facility], Partial fill upon patient request if the prescription is for a schedule II opioid drug., 1 glass e... Start Date: 06/21/23 Status: Ordered PEG-3350 with Electrolytes (Eqv-NuLYTELY) oral powder for reconstitution 240 mL, By Mouth, Every 10 minutes, # 4,000 mL, 0 Refills, Maintenance, 11/01/22 11:30:00 EST, [facility], Please fill with ANY available gallon [...] Active Lumbar spinal stenosis Confirmed Active 1initial [place]: 9 om04/11/15 Patient Care team information Care Team Personnel Name: Zheng Boo MD Position: [facility] Outreach Member Role: PCP Address: Address: [address] [place] [address] [address] [place] [address]- Care Team Related Persons Name: MADELINE MOREJON
--- OUTSIDE RECORDS SUMMARY | 2024-07-30 11:35 | XMS_ITS | Continuity of Care Document ---
Author Organization [facility] Address [address] [place] [address]- Care Team Providers Care Football Pad Repairer Name Role Phone Tim Pascual MD, Violeta Crain Primary Care Physici an Encounter [facility] [place] Date(s): 05/28/24 - 06/27/24 [facility] [address] [place] [address]- [place] Allergies, Adverse Reactions, Alerts Substance Reaction [...] 1 each, 0 Refills, Maintenance, 10/28/22 11:16:00 [facility], [facility], Partial fill uponpatient request if [...] each, 0 Refills, Maintenance, 10/28/22 11:15:00 EST, [facility], Partial fill upon patient request [...] mL, 0 Refills, Maintenance, 06/21/23 13:18:00 EDT, [facility], Partial fill upon patient request if the prescription is for a schedule II opioid drug., 1 glass e... Start Date: 06/21/23 Status: Ordered PEG-3350 with Electrolytes (Eqv-GoLYTELY) oral powder for reconstitution See Instructions, as directed by office ok to substitute for any gallon prep, # 1 each, 0 Refills, Maintenance, 06/06/24 9:41:00 EDT, [facility], Partial fill upon patient requestif the prescription is for a schedule II opioid dr... Start Date: 06/06/24 Status: Ordered PEG-3350 with Electrolytes (Eqv-NuLYTELY) oral powder for reconstitution 240 mL, By Mouth, Every 10 minutes, # 4,000 mL, 0 Refills, Maintenance, 11/01/22 11:30:00 EST, [facility], Please fill with ANY available [...] Active Lumbar spinal stenosis Confirmed Active 1initial [place]: 9 om04/11/15 Patient Care team information Care Team Personnel Name: Tim Pascual MD, Violeta Crain Position: [facility] Outreach Member Role: PCP Address: Address: [address] [place] [address] [address] [place] [address] Care Team Related Persons Name: MADELINE MOREJON
--- OUTSIDE RECORDS SUMMARY | 2024-07-30 11:35 | XMS_ITS | Continuity of Care Document ---
Author Organization [facility] Address [address] [place] [address]- Care Team Providers Care District Court Justice Name Role Phone Violeta Boo MD Primary Care Physici an [place] [facility] [place] 12/07/22 - 01/06/23 [facility] [address] [place] [address]- Allergies, Adverse Reactions, Alerts Substance Reaction Severity Status aspirin Active Contrast Dye Active Medications cetirizine 10 mg oral tablet 1 tablet = 10 mg, By Mouth, Daily, Take tablet 2 hours before exam with methylprednisolone., # 1 each, 0 Refills, Maintenance, 10/28/22 11:16:00 EST, [facility], Partial fill uponpatient request if the prescription is for a schedu... Start Date: 10/28/22 Status: Ordered methylPREDNISolone 32 mg oral tablet See Instructions, Take one tablet 12 hours before your exam and one tablet 2 hours before your exam., # 2 each, 0 Refills, Maintenance, 10/28/22 11:15:00 EST, [facility], Partial fill upon patient request if the prescription is for... Start Date: 10/28/22 Status: Ordered PEG-3350 with Electrolytes (Eqv-NuLYTELY) oral powder for reconstitution 240 mL, By Mouth, Every 10 minutes, # 4,000 mL, 0 Refills, Maintenance, 11/01/22 11:30:00 EST, [facility], Please fill with ANY available gallon colon prep, 240 mL By Mouth Every 10 minutes Start Date: 11/01/22 Status: Ordered Patient Care team information Care Team Personnel Name: Violeta Boo MD Position: S Outreach Member Role: PCP Address: Address: [address] [place] [address] [address] [place] [address]- Care Team Related Persons Name: MADELINE MOREJON
--- OUTSIDE RECORDS SUMMARY | 2024-07-30 11:35 | XMS_ITS | Continuity of Care Document ---
Author Organization [facility] Address [address] [place] [address]- Care Team Providers Care Rehab Trainer Name Role Phone Violeta Boo MD Primary Care Physici an Encounter [facility] [place] Date(s): 06/21/23 - 07/21/23 [facility] [address] [place] [address]- [place] Allergies, Adverse Reactions, Alerts Substance Reaction [...] 1 each, 0 Refills, Maintenance, 10/28/22 11:16:00 [facility], [facility], Partial fill uponpatient request if [...] each, 0 Refills, Maintenance, 10/28/22 11:15:00 EST, [facility], Partial fill upon patient request [...] mL, 0 Refills, Maintenance, 06/21/23 13:18:00 EDT, [facility], Partial fill upon patient request if the prescription is for a schedule II opioid drug., 1 glass e... Start Date: 06/21/23 Status: Ordered PEG-3350 with Electrolytes (Eqv-NuLYTELY) oral powder for reconstitution 240 mL, By Mouth, Every 10 minutes, # 4,000 mL, 0 Refills, Maintenance, 11/01/22 11:30:00 EST, [facility], Please fill with ANY available [...] Active Lumbar spinal stenosis Confirmed Active 1initial [place]: 9 om04/11/15 Patient Care team information Care Team Personnel Name: Violeta Boo MD Position: [facility] Outreach Member Role: PCP Address: Address: [address] [place] [address] [address] [place] [address]- Care Team Related Persons Name: MADELINE MOREJON
--- OUTSIDE RECORDS SUMMARY | 2024-07-30 11:36 | XMS_ITS | Continuity of Care Document ---
Author Organization [facility] Address [address] [place], [place] [address] ve [address] [place] [address]- Care Team Providers Care Master Planner Name Role Phone Violeta Boo MD Primary Care Physici an [place] [facility] [place] 12/08/22 - 01/07/[address] [place] [address]- Allergies, Adverse Reactions, Alerts Substance Reaction Severity Status aspirin Active Contrast Dye Active Medications cetirizine 10 mg oral tablet 1 tablet = 10 mg, By Mouth, Daily, Take tablet 2 hours before exam with methylprednisolone., # 1 each, 0 Refills, Maintenance, 10/28/22 11:16:00 [facility], [facility], Partial fill uponpatient request if the prescription is for a schedu... Start Date: 10/28/22 Status: Ordered methylPREDNISolone 32 mg oral tablet See Instructions, Take one tablet 12 hours before your exam and one tablet 2 hours before your exam., # 2 each, 0 Refills, Maintenance, 10/28/22 11:15:00 [facility], [facility], Partial fill upon patient request if the prescription is for... Start Date: 10/28/22 Status: Ordered PEG-3350 with Electrolytes (Eqv-NuLYTELY) oral powder for reconstitution 240 mL, By Mouth, Every 10 minutes, # 4,000 mL, 0 Refills, Maintenance, 11/01/22 11:30:00 EST, [facility], Please fill with ANY available gallon colon prep, 240 mL By Mouth Every 10 minutes Start Date: 11/01/22 Status: Ordered Patient Care team information Care Team Personnel Name: Violeta Boo MD Position: S Outreach Member Role: PCP Address: Address: [address] [place] [address] [address] [place] [address]- Care Team Related Persons Name: MADELINE MOREJON
--- OUTSIDE RECORDS SUMMARY | 2024-07-30 11:36 | XMS_ITS | Continuity of Care Document ---
Author Organization [facility] Address [address] [place], [place] [address] ve [address] [place] [address]- Care Team Providers Care Baby Formula Mixer Name Role Phone Violeta Boo MD Primary Care Physici an Encounter [facility] Date(s): 12/07/22 - 01/06/[address] [place] [address]- Allergies, Adverse Reactions, Alerts Substance Reaction Severity Status aspirin Active Contrast Dye Active Medications cetirizine 10 mg oral tablet 1 tablet = 10 mg, By Mouth, Daily, Take tablet 2 hours before exam with methylprednisolone., # 1 each, 0 Refills, Maintenance, 10/28/22 11:16:00 [facility], [facility], Partial fill uponpatient request if the prescription is for a schedu... Start Date: 10/28/22 Status: Ordered methylPREDNISolone 32 mg oral tablet See Instructions, Take one tablet 12 hours before your exam and one tablet 2 hours before your exam., # 2 each, 0 Refills, Maintenance, 10/28/22 11:15:00 [facility], [facility], Partial fill upon patient request if the prescription is for... Start Date: 10/28/22 Status: Ordered PEG-3350 with Electrolytes (Eqv-NuLYTELY) oral powder for reconstitution 240 mL, By Mouth, Every 10 minutes, # 4,000 mL, 0 Refills, Maintenance, 11/01/22 11:30:00 EST, [facility], Please fill with ANY available gallon colon prep, 240 mL By Mouth Every 10 minutes Start Date: 11/01/22 Status: Ordered Patient Care team information Care Team Personnel Name: Violeta Boo MD Position: S Outreach Member Role: PCP Address: Address: [address] [place] [address] [address] [place] [address]- Care Team Related Persons Name: MADELINE MOREJON
--- OUTSIDE RECORDS SUMMARY | 2024-07-30 11:36 | XMS_ITS | Continuity of Care Document ---
Author Organization [facility] ter Address [address] [place] [address]- Care Team Providers Care Foot Gatherer Name Role Phone Tim Pascual MD, Zheng Crain Primary Care Physici an [place] [facility] [place] [id number] Date(s): 06/06/24 - 07/07/[address] [address] Attending Physician: Antelmo Bower MD Admitting Physician: Antelmo Bower MD Allergies, Adverse Reactions, Alerts Substance Reaction [...] each, 0 Refills, Maintenance, 10/28/22 11:16:00 EST, [facility], Partial fill uponpatient request if [...] each, 0 Refills, Maintenance, 10/28/22 11:15:00 EST, [facility], Partial fill upon patient request [...] mL, 0 Refills, Maintenance, 06/21/23 13:18:00 EDT, [facility], Partial fill upon patient request if the prescription is for a schedule II opioid drug., 1 glass e... Start Date: 06/21/23 Status: Ordered PEG-3350 with Electrolytes (Eqv-GoLYTELY) oral powder for reconstitution See Instructions, as directed by office ok to substitute for any gallon prep, # 1 each, 0 Refills, Maintenance, 06/06/24 9:41:00 EDT, [facility], Partial fill upon patient requestif the prescription is for a schedule II opioid dr... Start Date: 06/06/24 Status: Ordered PEG-3350 with Electrolytes (Eqv-NuLYTELY) oral powder for reconstitution 240 mL, By Mouth, Every 10 minutes, # 4,000 mL, 0 Refills, Maintenance, 11/01/22 11:30:00 EST, [facility], Please fill with ANY available [...] Active Lumbar spinal stenosis Confirmed Active 1initial [place]: 9 om04/11/15 Patient Care team information Care Team Personnel Name: Zheng Boo MD Position: [facility] Outreach Member Role: PCP Address: Address: [address] [facility] [address] [place] [address]- Care Team Related Persons Name: MADELINE MOREJON
--- OUTSIDE RECORDS SUMMARY | 2024-07-30 11:36 | XMS_ITS | Continuity of Care Document ---
Author Organization [facility] ter Address [address] [place] [address]- Care Team Providers Care Masticator Name Role Phone Tim Pascual MD, Zheng Crain Primary Care Physici an [place] [facility] [place] Date(s): 11/25/23 - 06/29/[address] [address]- Attending Physician: Sammi Schilling MD Admitting Physician: Sammi Schilling MD Allergies, Adverse Reactions, Alerts Substance Reaction [...] each, 0 Refills, Maintenance, 10/28/22 11:16:00 EST, [facility], Partial fill uponpatient request if [...] each, 0 Refills, Maintenance, 10/28/22 11:15:00 EST, [facility], Partial fill upon patient request [...] mL, 0 Refills, Maintenance, 06/21/23 13:18:00 EDT, [facility], Partial fill upon patient request if the prescription is for a schedule II opioid drug., 1 glass e... Start Date: 06/21/23 Status: Ordered PEG-3350 with Electrolytes (Eqv-GoLYTELY) oral powder for reconstitution See Instructions, as directed by office ok to substitute for any gallon prep, # 1 each, 0 Refills, Maintenance, 06/06/24 9:41:00 EDT, [facility], Partial fill upon patient requestif the prescription is for a schedule II opioid dr... Start Date: 06/06/24 Status: Ordered PEG-3350 with Electrolytes (Eqv-NuLYTELY) oral powder for reconstitution 240 mL, By Mouth, Every 10 minutes, # 4,000 mL, 0 Refills, Maintenance, 11/01/22 11:30:00 EST, [facility], Please fill with ANY available [...] Active Lumbar spinal stenosis Confirmed Active 1initial [place]: 9 om04/11/15 Patient Care team information Care Team Personnel Name: Tim Pascual MD, Zheng Crain Position: [facility] Outreach Member Role: PCP Address: Address: [address] [facility] [address] [place] [address]- Care Team Related Persons Name: MADELINE MOREJON
--- OUTSIDE RECORDS SUMMARY | 2024-07-30 11:36 | XMS_ITS | Continuity of Care Document ---
Author Organization [facility] Address [address] [place] [id number]- Care Team Providers Care Payment Analyst Name Role Phone Tim Pascual MD, Violeta Crain Primary Care Physici an Encounter [facility] [place] Date(s): 11/23/23 - 12/23/23 [facility] [address] [place] [phone]- [place] Allergies, Adverse Reactions, Alerts Substance Reaction [...] 1 each, 0 Refills, Maintenance, 10/28/22 11:16:00 [facility], [facility], Partial fill uponpatient request if [...] each, 0 Refills, Maintenance, 10/28/22 11:15:00 EST, [facility], Partial fill upon patient request [...] mL, 0 Refills, Maintenance, 06/21/23 13:18:00 EDT, [facility], Partial fill upon patient request if the prescription is for a schedule II opioid drug., 1 glass e... Start Date: 06/21/23 Status: Ordered PEG-3350 with Electrolytes (Eqv-NuLYTELY) oral powder for reconstitution 240 mL, By Mouth, Every 10 minutes, # 4,000 mL, 0 Refills, Maintenance, 11/01/22 11:30:00 EST, [facility], Please fill with ANY available [...] Active Lumbar spinal stenosis Confirmed Active 1initial [place]: 9 om04/11/15 Patient Care team information Care Team Personnel Name: Tim Pascual MD, Violeta Crain Position: [facility] Outreach Member Role: PCP Address: Address: [address] [place] [address] [address] [place] [address]- Care Team Related Persons Name: MADELINE MOREJON
--- OUTSIDE RECORDS SUMMARY | 2024-07-30 11:36 | XMS_ITS | Continuity of Care Document ---
Author Organization [facility] Address [address] [place] [address] [address] [place] [address]- Care Team Providers Care Marine Fisheries Technician Name Role Phone Violeta Boo MD Primary Care Physici an [place] [facility] 10/28/22 - 11/27/[address] [place] [address]- Allergies, Adverse Reactions, Alerts Substance Reaction Severity Status aspirin Active Contrast Dye Active Medications cetirizine 10 mg oral tablet 1 tablet = 10 mg, By Mouth, Daily, Take tablet 2 hours before exam with methylprednisolone., # 1 each, 0 Refills, Maintenance, 10/28/22 11:16:00 [facility], [facility], Partial fill uponpatient request if the prescription is for a schedu... Start Date: 10/28/22 Status: Ordered methylPREDNISolone 32 mg oral tablet See Instructions, Take one tablet 12 hours before your exam and one tablet 2 hours before your exam., # 2 each, 0 Refills, Maintenance, 10/28/22 11:15:00 [facility], [facility], Partial fill upon patient request if the prescription is for... Start Date: 10/28/22 Status: Ordered PEG-3350 with Electrolytes (Eqv-NuLYTELY) oral powder for reconstitution 240 mL, By Mouth, Every 10 minutes, # 4,000 mL, 0 Refills, Maintenance, 11/01/22 11:30:00 EST, [facility], Please fill with ANY available gallon colon prep, 240 mL By Mouth Every 10 minutes Start Date: 11/01/22 Status: Ordered Patient Care team information Care Team Personnel Name: Violeta Boo MD Position: S Outreach Member Role: PCP Address: Address: [address] [place] [address] [address] [place] [address]- Care Team Related Persons Name: MADELINE MOREJON
--- OUTSIDE RECORDS SUMMARY | 2024-07-30 11:36 | XMS_ITS | Continuity of Care Document ---
Author Organization [facility] Address [address] [place] [address]- Care Team Providers Care Bakeshop Cleaner Name Role Phone Violeta Boo MD Primary Care Physici an Encounter [facility] [place] Date(s): 07/14/23 - 08/13/23 [facility] [address] [place] [address]- [place] Allergies, Adverse Reactions, Alerts Substance Reaction [...] 1 each, 0 Refills, Maintenance, 10/28/22 11:16:00 [facility], [facility], Partial fill uponpatient request [...] Active Lumbar spinal stenosis Confirmed Active 1initial [place]: 9 om04/11/15 Patient Care team information Care Team Personnel Name: Violeta Boo MD Position: [facility] Outreach Member Role: PCP Address: Address: [address] [place] [address] [address] [place] [address]- Care Team Related Persons Name: MADELINE MOREJON
== END 2024-07-30 11:52 | disposition home or self-care (01) ==
LOC: HO.RHE 11:34
PROVIDERS: PCP Internal Medicine; Visit Provider Student in an Organized Health Care Education/Training Program
DX: L40.50 Arthropathic psoriasis, unspecified (principal); M1A.0790 Idiopathic chronic gout, unspecified ankle and foot, without tophus (tophi); M79.7 Fibromyalgia; Z22.7 Latent tuberculosis
CPT/HCPCS: 99214

== ENCOUNTER → 2024-07-30 11:34 | Outpatient (BNVA) | payer OTHER, SELFPAY | PROVIDERS: PCP Internal Medicine; Visit Provider Student in an Organized Health Care Education/Training Program | DX: L40.50 Arthropathic psoriasis, unspecified (principal); M1A.0790 Idiopathic chronic gout, unspecified ankle and foot, without tophus (tophi); M79.7 Fibromyalgia; M13.80 Other specified arthritis, unspecified site; Z22.7 Latent tuberculosis | CPT/HCPCS: 99212 ==

== ENCOUNTER 2024-07-31 09:05 | Outpatient (REF) | payer OTHER, SELFPAY ==
[2024-08-01 05:29] LABS: CT PCR NOT DETECTED (Not Detect.); NG PCR NOT DETECTED (Not Detect.)
== END 2024-07-31 09:06 | disposition home or self-care (01) ==
LOC: HO.LNP 09:05
PROVIDERS: PCP Internal Medicine; Visit Provider Obstetrics & Gynecology
DX: R10.2 Pelvic and perineal pain (principal)
CPT/HCPCS: 81002; 87491; 87591; 99212

== ENCOUNTER 2024-07-31 09:05 | Outpatient (AMB) | payer OTHER, SELFPAY ==
--- NOTE | 2024-07-31 09:08 | MHC.OFFVIS ---
Vital Signs 07/31/24 09:12 Height 5 ft 3 in Weight 279 lb 15.793 oz BMI 49.6 BP 136/80 Intake Visit Reasons: pelvic pain Rn Hemodialysis Charge Required: Yes Rn Hemodialysis Charge Language: Toilet Attendant Services: Rn Hemodialysis Charge Present (in person) Information Interpreted: non-clinical & clinical Billing Administrator: Billing Administrator Present (Kacy Molina CRYSTAL) Accompanied by: Self / Same As Patient Allergies peanut [PEANUT] Allergy (Severe, Verified 07/31/24 09:16) ITCHY, SWELLING seafood Allergy (Severe, Verified 07/31/24 09:16) Rash tomato [TOMATO] Allergy (Severe, Verified 07/31/24 09:16) ITCHY, SWELLING aspirin [ASA] Allergy (Intermediate, Verified 07/31/24 09:16) ITCHY,ANXIOUS, itching, rash Iodinated Contrast Media [IV CONTRAST] Allergy (Intermediate, Verified 07/31/24 09:16) HIVES plantain [PLANTAIN] Allergy (Intermediate, Verified 07/31/24 09:16) ITCHY/SWELLING Post menopausal: Yes HPI Comments Details: The patient is presenting with right LQ pain started 5 months ago. It's intermittent in nature lasting few seconds and occurs 3x/day. it is not associated with any constipation, dysuria, frequency incontinence, no n/v, no feverishness, no vaginal bleeding PFSH Medical History Pain in left shoulder Screening for viral disease COPD (chronic obstructive pulmonary disease) Restrictive lung disease Allergic rhinitis ZOEY (obstructive sleep apnea) Edema PVD (peripheral vascular disease) On beta prashant at home Osteopenia Gout Osteoporosis Osteoarthritis Rheumatoid arthritis Anemia Panic attacks Anxiety Schizophrenia Pre-diabetes CKD (chronic kidney disease), stage III GERD (gastroesophageal reflux disease) Fatty liver Myocardial infarction CAD (coronary artery disease) Angina pectoris HTN (hypertension) Morbid obesity ZOEY treated with BiPAP COPD (chronic obstructive pulmonary disease) Allergic rhinitis Surgical History History of colonoscopy (~2021) History of lumpectomy of right breast (06/21/22) History of bladder suspension procedure History of esophagogastroduodenoscopy (EGD) Hx of colonoscopy History of hysterectomy History of tubal ligation History of lumpectomy of right breast Family History Mother Leukemia Brother Colon cancer Brother Leukemia Sister Breast cancer Sister Vaginal cancer Sister Breast cancer Sister Breast cancer Daughter Thyroid disease Social History Alcohol intake: never Patient Tobacco Use Status: Never used Tobacco Second Hand Smoke Exposure: No Female Reproductive History Menstrual Age of Menarche: 13 Review of Systems Const All systems reviewed & are unremarkable except as noted in HPI and below Physical Exam Vital Signs: Last Vital Signs BP 136/80 07/31/24 09:12 BMI result Body Mass Index 49.6 General: Yes no CVA tenderness External Female Exam: normal external appearance and normal appearance of the urethra Speculum Exam - Vagina: normal appearance of the vagina, normal palpation, no lesions and no masses Speculum Exam - Cervix: normal appearance of the cervix, normal palpation, no lesions, no masses and nontender Bimanual exam- vagina & uterus: normal bimanual exam, normal palpation, uterine size normal, normal palpation, uterine shape normal, No Cervical tenderness present and non-tender Bimanual Exam- Adnexa, other: normal adnexae Back/Spine/Pelvis Back: no CVA tenderness Results AMB Urinalysis Dipstick UR Leukocytes Negative Last Edit by Kacy Molina CMA on 07/31/24 09:25 UR Nitrite Negative Last Edit by Kacy Molina CMA on 07/31/24 09:25 UR Urobilinogen Normal Last Edit by Kacy Molina CMA on 07/31/24 09:25 UR Protein Trace Last Edit by Kacy Molina CMA on 07/31/24 09:25 UR Ph 5.5 Last Edit by Kacy Molina CMA on 07/31/24 09:25 UR Blood Negative Last Edit by Kacy Molina, RICHARD on 07/31/24 09:25 UR Specific [place] 1.015 Last Edit by Kacy Molina CMA on 07/31/24 09:25 UR Ketone Negative Last Edit by Kacy Molina, RICHARD on 07/31/24 09:25 UR Bilirubin Negative Last Edit by Kacy Molina CMA on 07/31/24 09:25 UR Glucose Negative Last Edit by Kacy Molina CMA on 07/31/24 09:25 Results Reviewed Results Reviewed: Laboratory Last Values Urine pH (Clinic) 5.5 07/31/24 09:22 Specific [place] (Clinic) 1.015 07/31/24 09:22 Ur Protein (Clinic) Trace 07/31/24 09:22 Ur Ketones (Clinic) Negative 07/31/24 09:22 Urine Blood (Clinic) Negative 07/31/24 09:22 Urine Nitrite Negative 07/31/24 09:22 Urine Bilirubin (Clinic) Negative 07/31/24 09:22 Urobilinogen (Clinic) Normal 07/31/24 09:22 Leukocyte Esterase (Clinic) Negative 07/31/24 09:22 Urine Glucose (Clinic) Negative 07/31/24 09:22 Assessment & Plan Assessment & Plan (1) Pelvic pain: Code(s): R10.2 - Pelvic and perineal pain Category: Medical Plan: Urine dip done in the office were both negative. GC and chlamydia taken and pelvic ultrasound ordered. Discussed with the patient the differential diagnosis of pelvic pain including but not limited to adnexal, uterine masses, pelvic infections (PID), GI the (Irritable bowel syndrome, diverticulitis, others), musculoskeletal, myofascial pain abdominal wall , adhesions, endometriosis, psychological and others causes. Will check results and treat accordingly. All questions answered, the patient verbalized understanding. Instructed the patient to schedule follow-up appointment in 2 weeks Orders: Orders AMB Urinalysis Dipstick Today R10.2 - Pelvic and perineal pain Coding Level of Care Code Est Pt Level 3 (35154) Diagnoses Pelvic pain R10.2
[2024-07-31 09:12] VITALS: BP 136/80; BMI 49.6
== END 2024-07-31 09:45 | disposition home or self-care (01) ==
PROVIDERS: PCP Internal Medicine; Visit Provider Obstetrics & Gynecology
DX: R10.2 Pelvic and perineal pain (principal)
CPT/HCPCS: 99213

== ENCOUNTER 2024-08-22 10:29 | Outpatient (REF) | payer OTHER, SELFPAY ==
[2024-08-22 10:59] LABS: MANUAL DIFF FLAG NO
[2024-08-22 11:56] LABS: Basophils Percent Auto 0.4 % (0-2); Eosinophils Absolute Auto 0.2 X10*3/uL (0.0-0.4); Eosinophils Percent Auto 1.9 % (0-4); Hematocrit 40.7 % (37.0-47.0); Imm Gran Abs Auto 0.06 X10*3/uL (0.00-0.03); Imm Gran Pct Auto 0.7 % (0.0-0.4); Lymphocytes Absolute Auto 2.7 X10*3/uL (1.2-4.9); Lymphocytes Percent Auto 29.8 % (20-40); Mean Corpuscular HGB Conc 31.9 g/dl (31.0-35.0); Mean Corpuscular Hemoglobin 30.2 pg (27.0-33.0); Mean Corpuscular Volume 94.7 fL (80.0-98.0); Mean Platelet Volume 10.7 fL (9.4-12.3); Monocytes Absolute Auto 0.6 X10*3/uL (0.1-1.2); Monocytes Percent Auto 6.2 % (2-11); Neutrophils Absolute Auto 5.5 x10*3/uL (2.0-8.3); Platelet Count 354 X10*3/uL (160-400); Red Cell Distribution Width 14.4 % (11.0-16.0); White Blood Count 9.1 X10*3/uL (4.8-10.8)
[2024-08-22 12:06] LABS: Protein/Creatinine Ratio, Ur 0.05 (<0.2); Total Protein Urine Random 10 mg/dL (<12)
[2024-08-22 12:12] LABS: Estimated Average Glucose 123 mg/dL; Hemoglobin A1C 134.6875 umol/L; Hemoglobin A1c % 5.9 % (<6.0); Total Hemoglobin (HGBA1C) 3320.8513 umol/L
[2024-08-22 12:13] LABS: Anion Gap 14 (12-20); Blood Urea Nitrogen 25 mg/dL (9-16); Calcium 9.6 mg/dL (8.4-10.2); Carbon Dioxide 28 mmol/L (22-29); Chloride 106 mmol/L (96-108); Estimated Glomerular Filt Rate 38; Potassium 3.7 mmol/L (3.3-5.1); Sodium 144 mmol/L (135-145)
[2024-08-22 12:38] LABS: Vitamin D 25-OH Total 39.8 ng/mL (>30)
== END 2024-08-22 10:30 | disposition home or self-care (01) ==
LOC: HO.LAB 10:29
PROVIDERS: PCP Internal Medicine; Visit Provider Internal Medicine Nephrology
DX: I12.9 Hypertensive chronic kidney disease with stage 1 through stage 4 chronic kidney disease, or unspecified chronic kidney disease (principal); E11.22 Type 2 diabetes mellitus with diabetic chronic kidney disease; N18.31 Chronic kidney disease, stage 3a; M54.16 Radiculopathy, lumbar region; M48.061 Spinal stenosis, lumbar region without neurogenic claudication; M54.41 Lumbago with sciatica, right side; Z79.899 Other long term (current) drug therapy
CPT/HCPCS: 36415; 80051; 82306; 82310; 82565; 82570; 83036; 84156; 84520; 85025; 99212

== ENCOUNTER 2024-08-22 12:47 | Outpatient (AMB) | payer OTHER, SELFPAY ==
--- NOTE | 2024-08-22 13:12 | MHC.OFFVIS ---
Vital Signs 08/22/24 13:18 Height 5 ft 3 in Weight 277 lb 6 oz BMI 49.1 BP 124/58 L Blood Pressure Location Rt radial Position Sitting Respiration 18 Pulse 66 Pulse Source Pulse Oximeter Pulse Oximetry (%) 97 Oxygen Delivery Method Room Air Intake Visit Reasons: F/U back pain Intake Note: Patient comes in for follow up to discuss back pain. She is accompanied by BAT PERSON Nikita. Reports pain 08/23. Appraisal Manager Required: Yes Appraisal Manager Services: Appraisal Manager Present Appraisal Manager Name: Liane Magallanes Allergies peanut [PEANUT] Allergy (Severe, Verified 08/22/24 13:19) ITCHY, SWELLING seafood Allergy (Severe, Verified 08/22/24 13:19) Rash tomato [TOMATO] Allergy (Severe, Verified 08/22/24 13:19) ITCHY, SWELLING aspirin [ASA] Allergy (Intermediate, Verified 08/22/24 13:19) ITCHY,ANXIOUS, itching, rash Iodinated Contrast Media [IV CONTRAST] Allergy (Intermediate, Verified 08/22/24 13:19) HIVES plantain [PLANTAIN] Allergy (Intermediate, Verified 08/22/24 13:19) ITCHY/SWELLING HPI Comments Details: Violeta is back in my office after 1 year of absence. She reports that her pain became unbearable. In the past she received diagnostic medial branch block on the right side L3-L4 dorsal ramus L5 on 12/14/2022. She reported very minimal pain relief from 9-to 6 for the 4th our after the injection only. Before that she received sacroiliac joint injection on the right which also was not effective for her pain control. She had MRI many years ago. She had reported difficulty standing difficulty sitting difficulty walking difficulty the laying down. She reports pain increase with activities. 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 I will send her for the MRI of the lumbar spine to evaluate the syndrome. Radiculopathy of the lumbar spine also can not be excluded and therefore we need to see the MRI. She requesting me to prescribe her some medications to help her pain. I will start her on cyclobenzaprine 5 mg t.i.d.. I explained to her that if she feels drowsy on cyclobenzaprine she may take 1 pill in daytime and 2 pills at night. She reports the pain travels across the lower back and radiates into the right leg with associated numbness, tingling, weakness throughout the entire right leg. She has had multiple falls over the past few months due to the pain and weakness. She denies any bowel/bladder dysfunction or saddle anesthesia. She reports pain onset was gradual, constant and rates the pain a 9-10/10. She states the pain is interfering with sleep, activities of daily living and she cannot function normally.? Her pain is exacerbated by any activity. She reports some alleviation with recumbency. She has been taking gabapentin 300 mg TID with little to no effect on pain. She is also on allopurinol for gout. She has also tried voltaren, lidocaine patches, NSAIDS including indomethacin, heat/ice and tylenol with minimal effect. She has attempted physical therapy in the past with minimal alleviation in symptoms. She reports having lumbar injections in the past without effect and believes they were performed at [facility]. She also reports being evaluated by neurosurgery who offered surgery but patient deferred. She last had imaging of the lumbar spine, this report is dictated below. Her past medical history is significant for HTN, OA, PVD, Mood disorder, asthma, CKD [facility] Medical History Pain in left shoulder Screening for viral disease COPD (chronic obstructive pulmonary disease) Restrictive lung disease Allergic rhinitis ZOEY (obstructive sleep apnea) Edema PVD (peripheral vascular disease) On beta prashant at home Osteopenia Gout Osteoporosis Osteoarthritis Rheumatoid arthritis Anemia Panic attacks Anxiety Schizophrenia Pre-diabetes CKD (chronic kidney disease), stage III GERD (gastroesophageal reflux disease) Fatty liver Myocardial infarction CAD (coronary artery disease) Angina pectoris HTN (hypertension) Morbid obesity ZOEY treated with BiPAP COPD (chronic obstructive pulmonary disease) Allergic rhinitis Surgical History History of colonoscopy (~2021) History of lumpectomy of right breast (06/21/22) History of bladder suspension procedure History of esophagogastroduodenoscopy (EGD) Hx of colonoscopy History of hysterectomy History of tubal ligation History of lumpectomy of right breast Family History Mother Leukemia Brother Colon cancer Brother Leukemia Sister Breast cancer Sister Vaginal cancer Sister Breast cancer Sister Breast cancer Daughter Thyroid disease Social History Alcohol intake: never Patient Tobacco Use Status: Never used Tobacco Second Hand Smoke Exposure: No Female Reproductive History Menstrual Age of Menarche: 13 Review of Systems Const All systems reviewed & are unremarkable except as noted in HPI and below Physical Exam Vital Signs: Last Vital Signs Pulse 66 08/22/24 13:18 Resp 18 08/22/24 13:18 BP 124/58 L 08/22/24 13:18 Pulse Ox 97 08/22/24 13:18 Oxygen Delivery Method Room Air 08/22/24 13:18 BMI result Body Mass Index 49.1 Const General: cooperative, healthy appearing, no acute distress and alert Orientation/consciousness: patient oriented x3 Limitations: no limitations HEENT Head: Yes normal to inspection, Yes normocephalic and Yes atraumatic Ears: hearing grossly normal bilaterally Eyes General: appearance normal, both eyes and all related structures Neck Neck: Yes normal visual inspection, Yes supple and Yes no JVD Resp Effort & Inspection: normal respiratory effort, able to speak in complete sentences and no audible wheezes Cardio Jugular venous distension: no JVD Peripheral pulses: Peripheral pulses 2+ throughout (no appreciable rhythmic abnormalities) Back/Spine/Pelvis Other: Patient unable to walk on heels and tip toes due to pain and weakness. Can flex forward to 30 degrees and extend to 5 degrees before experiencing lumbar pain. Demonstrates 3-4/5 strength of quadriceps bilaterally as well as flexion/dorsiflexion of bilateral feet against resistance. Diminshed DTR diminsihed and symmetrical. Straight leg rise with dorsiflexion negative bilaterally. Norberto test and Pelvic compression test + bilaterally. Facet loading test + bilaterally. Unable to perform Stinchfield test due to pain. Significant TTP throughout lumbar spine and SIJ bilaterally. Thoracic/Lumbar Spine: thoracic and lumbar spine normal to inspection, No Thoracic/lumbar spine scar(s), pain with thoraco-lumbar ROM, paraspinal muscle tenderness, thoraco-lumbar ROM limited, thoracic spinal tenderness and lumbar spinal tenderness Sacroiliac joints: bilaterally tender to palpation Neuro General: patient oriented x3, No gait normal and moves all extremities Assessment & Plan Assessment & Plan (1) Lumbar radiculopathy: Code(s): M54.16 - Radiculopathy, lumbar region Category: Medical (2) Spinal stenosis at L4-L5 level: Code(s): M48.061 - Spinal stenosis, lumbar region without neurogenic claudication Category: Medical (3) Vertebrogenic low back pain: Code(s): M54.51 - Vertebrogenic low back pain Category: Medical Plan 1. We will schedule this patient for MRI of the lumbar spine. 2. I will start her on cyclobenzaprine 5 mg t.i.d.. 3. I will see this patient after MRI is ready. Orders: Orders MR lumbar spine wo con Today M48.061 - Spinal stenosis, lumbar region without neurogenic claudication, M54.16 - Radiculopathy, lumbar region, M54.51 - Vertebrogenic low back pain Medications: New cyclobenzaprine 5 mg PO TID 30 days PRN 90 tabs 1RF muscle spasm Patient Instructions: I here by testify that I spent 35 minutes in conversation with this patient as well as planning her care and organizing this note. lead instructor/flight attendant who is certified studio model Liane Magallanes was helping us to maintain this conversation today is [place]. Coding Level of Care Code Est Pt Level 4 (68007) Diagnoses Lumbar radiculopathy M54.16 Spinal stenosis at L4-L5 level M48.061 Vertebrogenic low back pain M54.51
[2024-08-22 13:18] VITALS: BP 124/58; PULSE 66; RESP 18; O2SAT 97; BMI 49.1
== END 2024-08-22 13:56 | disposition home or self-care (01) ==
PROVIDERS: PCP Internal Medicine; Visit Provider Anesthesiology
DX: M54.16 Radiculopathy, lumbar region (principal); M48.061 Spinal stenosis, lumbar region without neurogenic claudication; M54.51 Vertebrogenic low back pain
CPT/HCPCS: 99214

== ENCOUNTER → 2024-08-30 09:00 | Outpatient (BNV) | payer OTHER, SELFPAY | PROVIDERS: PCP Internal Medicine; Visit Provider Internal Medicine | DX: Z12.31 Encounter for screening mammogram for malignant neoplasm of breast (principal) | CPT/HCPCS: 77063; 77067 ==

== ENCOUNTER 2024-08-30 09:01 | Outpatient (REF) | payer OTHER, SELFPAY ==
--- NOTE | ~2024-08-30 | MM_ITS ---
EXAMINATION: MM SCREENING DIGITAL BREAST TOMOSYNTHESIS, BILATERAL CLINICAL INFORMATION: Screening. Asymptomatic. COMPARISON: Mammography: Comparison is made with available priors TECHNIQUE: Digital breast mammography with tomosynthesis is performed in both the craniocaudal and mediolateral oblique views along with computer-aided detection (CAD). FINDINGS: The breasts are heterogeneously dense, which may obscure small masses (ACR BI-RADS breast composition Category c). Postsurgical changes of the right breast. There are no significant masses, abnormal calcifications, or other abnormalities. MM/MM tomosynthesis screening BI IMPRESSION: No mammographic evidence of malignancy. ASSESSMENT: BI-RADS BI-RADS 2 - Benign Findings RECOMMENDATION: Routine annual mammography screening. 1 year F/U This examination should not preclude the clinical evaluation of a suspicious palpable abnormality. This patient's information was entered into a reminder system with a target due date for their next mammogram. Electronically signed by: Radhika Douglas DO 09/11/2024 12:27 PM EDT
== END 2024-08-30 09:02 | disposition home or self-care (01) ==
LOC: HO.MAMMO 09:01
PROVIDERS: PCP Internal Medicine; Visit Provider Internal Medicine
DX: Z12.31 Encounter for screening mammogram for malignant neoplasm of breast (principal)
CPT/HCPCS: 77063; 77067

== ENCOUNTER 2024-09-06 10:48 | Outpatient (REF) | payer OTHER, SELFPAY | END 2024-09-06 10:49 | disposition home or self-care (01) | LOC: HO.US 10:48 | PROVIDERS: PCP Internal Medicine; Visit Provider Obstetrics & Gynecology | DX: R10.2 Pelvic and perineal pain (principal) | CPT/HCPCS: 76857 ==

== ENCOUNTER 2024-09-13 10:33 | Outpatient (REF) | payer OTHER, SELFPAY ==
--- NOTE | ~2024-09-13 | CT_ITS ---
EXAMINATION: CT ABDOMEN AND PELVIS WITHOUT CONTRAST CLINICAL INFORMATION: Benign neoplasm of the colon. COMPARISON: CT scans dating between August 31, 2022 and March 19, 2014. TECHNIQUE: Multidetector volumetric imaging was performed from the superior aspect of the liver through the pubic symphysis. Sagittal and coronal reformatted images were obtained on the technologist's workstation. This CT examination was performed using dose optimization techniques as appropriate, variously including the following: *Automated exposure control *Adjustment of mA and/or kV according to patient size (this includes techniques or standardized protocols for targeted exams where dose is matched to indication/reason for exam; i.e. extremities or head) *Use of iterative reconstruction technique DLP: 879 mGy-cm FINDINGS: LUNG BASES: The lung bases appear clear, with no evidence of inflammation or nodules. LIVER, GALLBLADDER, AND BILIARY TREE: The liver appears unremarkable in size, shape, and attenuation. No focal hepatic lesion or biliary ductal dilatation is appreciated. Unremarkable appearance of the gallbladder. PANCREAS: Unremarkable SPLEEN: Unremarkable ADRENAL GLANDS: Unremarkable KIDNEYS AND URETERS: The kidneys appear unremarkable in size, shape, and attenuation. No hydronephrosis, hydroureter, or calculi seen. BLADDER: Unremarkable GASTROINTESTINAL TRACT: Unremarkable appearance of the stomach and small bowel. Redemonstration of focal wall thickening/mass in the mid transverse colon described on most recent prior study dated August 31, 2022 (currently image 42, axial series 3; image 34, coronal series 5). This is difficult to compare with the most recent prior study, but appears grossly similar. Few, scattered sigmoid diverticula without evidence of diverticulitis. Normal-appearing distal ileum and vermiform appendix. ABDOMINAL WALL: No significant hernia is appreciated. LYMPH NODES: No evidence of adenopathy by size criteria. VASCULAR: Unremarkable PELVIC VISCERA: Status post hysterectomy. OSSEOUS STRUCTURES: No suspicious lytic or sclerotic bony lesion identified. Degenerative changes of the spine with lumbar levocurvature. CT/CT abdomen pelvis wo IV con IMPRESSION: Redemonstration of focal wall thickening/mass in the mid transverse colon described on most recent prior study dated August 31, 2022. This is difficult to compare with the most recent prior study, but appears grossly similar. Electronically signed by: Waqas Cid MD 09/13/2024 05:06 PM EDT
[2024-09-13] MEDS: Barium Sulfate Oral (Berry) 450 ML ORAL.SUSP PO ×2 (13:15→13:16)
== END 2024-09-13 10:34 | disposition home or self-care (01) ==
LOC: HO.CT 10:33
PROVIDERS: PCP Internal Medicine; Visit Provider Surgery
DX: D12.6 Benign neoplasm of colon, unspecified (principal)
CPT/HCPCS: 74176

== ENCOUNTER 2024-10-08 12:46 | Outpatient (AMB) | payer OTHER, SELFPAY ==
--- NOTE | 2024-10-08 12:50 | A.OFFVIS_ITS ---
Vital Signs 10/08/24 12:59 Height 5 ft 3 in Weight 272 lb 4 oz BMI 48.2 Intake Visit Reasons: s/p CT 09/13/24 Intake Note: This patient presents for follow-up CT-scan results( 09/13/24). Pt c/o; reports no new complaints at this time. Patient Service Associate Required: Yes Patient Service Associate Language: Shingle Shearing Machine Operator Services: Patient Service Associate Present Patient Service Associate Name: Siria Information Interpreted: non-clinical & clinical Accompanied by: SPARK PLUG ASSEMBLER Allergies peanut [PEANUT] Allergy (Severe, Verified 10/08/24 13:01) ITCHY, SWELLING seafood Allergy (Severe, Verified 10/08/24 13:01) Rash tomato [TOMATO] Allergy (Severe, Verified 10/08/24 13:01) ITCHY, SWELLING aspirin [ASA] Allergy (Intermediate, Verified 10/08/24 13:01) ITCHY,ANXIOUS, itching, rash Iodinated Contrast Media [IV CONTRAST] Allergy (Intermediate, Verified 10/08/24 13:01) HIVES plantain [PLANTAIN] Allergy (Intermediate, Verified 10/08/24 13:01) ITCHY/SWELLING Medication List - Last Reconciled 10/08/24 by Brice Manzano MD acetaminophen 1,000 mg PO Q8H PRN albuterol sulfate 90 mcg/actuation (ProAir HFA) 2 puffs inhalation Q4-6H PRN 30 days allopurinol 300 mg PO QAM atorvastatin 80 mg PO DAILY calcium carbonate-vitamin D3 600 mg-10 mcg (400 unit) 1 tab PO BID clotrimazole 1% appl topical DAILY colchicine 0.6 mg PO Q OTHER DAY cyanocobalamin (vitamin B-12) 1,000 mcg sublingual DAILY cyclobenzaprine 5 mg PO TID PRN 30 days diclofenac sodium 1% 4 grams topical QID diphenhydramine HCl 2% (Benadryl) 1 appl topical BID doxepin 25 mg PO BEDTIME estradiol 0.01%(0.1mg/gram) grams vaginal ezetimibe 10 mg PO QAM ferrous sulfate 325 mg PO QAM fexofenadine 180 mg PO QAM fluticasone propion-salmeterol 250-50 mcg/dose 1 ea PO BID fluticasone propionate 50 mcg/actuation 2 sprays intranasal DAILY gabapentin 300 mg PO BID hydrochlorothiazide 12.5 mg PO QAM inhalational spacing device As directed lancets As directed latanoprost 0.005% 1 drp ophthalmic (eye) BEDTIME losartan 100 mg PO QAM melatonin 1 mg PO BEDTIME PRN metoprolol succinate ER 50 mg PO DAILY montelukast 10 mg PO QPM nystatin 1 appl topical BID olanzapine 20 mg PO BEDTIME olanzapine 15 mg PO BEDTIME Otezla (apremilast) 30 mg PO BID NS Otezla Starter (apremilast) lot # [id number] NS pantoprazole 40 mg PO DAILY semaglutide (Ozempic) 0.25 mg subcut QWEEK sertraline 100 mg PO DAILY sertraline 50 mg PO QAM [thumb spica As directed] HPI HPI s/p CT 09/13/24: Details: She is here for follow-up after had sent her CT scan view of her transverse colon polyp. She denies any new complaints. She has good oral intake She says she had seen a surgeon in [place] last year but she had been told that they would not take her in for surgery. [facility] Medical History Pain in left shoulder Screening for viral disease COPD (chronic obstructive pulmonary disease) Restrictive lung disease Allergic rhinitis ZOEY (obstructive sleep apnea) Edema PVD (peripheral vascular disease) On beta prashant at home Osteopenia Gout Osteoporosis Osteoarthritis Rheumatoid arthritis Anemia Panic attacks Anxiety Schizophrenia Pre-diabetes CKD (chronic kidney disease), stage III GERD (gastroesophageal reflux disease) Fatty liver Myocardial infarction CAD (coronary artery disease) Angina pectoris HTN (hypertension) Morbid obesity ZOEY treated with BiPAP COPD (chronic obstructive pulmonary disease) Allergic rhinitis Surgical History History of colonoscopy (~2021) History of lumpectomy of right breast (06/21/22) History of bladder suspension procedure History of esophagogastroduodenoscopy (EGD) Hx of colonoscopy History of hysterectomy History of tubal ligation History of lumpectomy of right breast Family History Mother Leukemia Brother Colon cancer Brother Leukemia Sister Breast cancer Sister Vaginal cancer Sister Breast cancer Sister Breast cancer Daughter Thyroid disease Social History Alcohol intake: never Patient Tobacco Use Status: Never used Tobacco Second Hand Smoke Exposure: No Female Reproductive History Menstrual Age of Menarche: 13 Review of Systems Const Denies chills and Denies fever(s) Card Denies chest pain, Reports dyspnea and Reports dyspnea on exertion Resp Denies cough, Reports dyspnea and Reports dyspnea on exertion GI Denies hematochezia and Denies change in bowel habits Denies hematuria Musc Reports abnormal gait, Reports back pain and Reports limited range of motion Neuro Reports abnormal gait, Denies focal weakness and Denies convulsions Psych Denies depression and Denies mood swings Physical Exam Vital Signs: BMI result Body Mass Index 48.2 Const Other: Using a walker, appears morbidly General: no acute distress Resp Effort & Inspection: normal respiratory effort Cardio Rate: regular rate GI Other: Very obese Palpation (GI): Soft to palpation, not firm and nontender Assessment & Plan Assessment & Plan (1) Tubular adenoma of colon: Code(s): D12.6 - Benign neoplasm of colon, unspecified Category: Medical Plan: She has this large adenoma in what appears to be the transverse colon. Her most recent CT scan shows this to be similar in appearance from before I had recommended for her to undergo resection. I had actually referred her before to [place] because of her multiple medical problems and her morbid obesity. She says that one of the surgeons had refused to take her to surgery. I will refer her [facility] to [facility] or [facility]. She presents with significant perioperative risks. Her baseline level of activity is poor. I explained to her the plan. She seems to understand this well and agrees with this. She had her SPARK PLUG ASSEMBLER with her during the visit. She does not have any family involved with her care at this time Coding Level of Care Code Est Pt Level 4 (06917) Diagnoses Tubular adenoma of colon D12.6
[2024-10-08 12:59] VITALS: BMI 48.2
== END 2024-10-08 13:27 | disposition home or self-care (01) ==
PROVIDERS: PCP Internal Medicine; Visit Provider Surgery
DX: D12.6 Benign neoplasm of colon, unspecified (principal)
CPT/HCPCS: 99214

== ENCOUNTER → 2024-10-08 12:46 | Outpatient (BNVA) | payer OTHER, SELFPAY | PROVIDERS: PCP Internal Medicine; Visit Provider Surgery | DX: D12.3 Benign neoplasm of transverse colon (principal) | CPT/HCPCS: 99212 ==

== ENCOUNTER 2024-10-09 07:18 | Outpatient (REF) | payer OTHER, SELFPAY | END 2024-10-09 07:19 | disposition home or self-care (01) | LOC: HO.MRI 07:18 | PROVIDERS: PCP Internal Medicine; Visit Provider Anesthesiology | DX: M48.061 Spinal stenosis, lumbar region without neurogenic claudication (principal); M54.16 Radiculopathy, lumbar region; M54.51 Vertebrogenic low back pain | CPT/HCPCS: 72148 ==

== ENCOUNTER 2024-12-12 12:48 | Outpatient (AMB) | payer OTHER, SELFPAY ==
--- NOTE | 2024-12-12 13:07 | MHC.OFFVIS ---
Vital Signs 12/12/24 13:21 Height 5 ft 3 in Weight 264 lb 6 oz BMI 46.8 BP 149/69 H Blood Pressure Location Rt brachial Position Sitting Pulse 74 Pulse Source Pulse Oximeter Intake Visit Reasons: Discuss MRI Results Intake Note: Pain today 08/23 Environmental Web Crawler Required: Yes Environmental Web Crawler Language: Aerial Applicator Pilot Name: Liane Accompanied by: dope and fabric worker Allergies peanut [PEANUT] Allergy (Severe, Verified 12/12/24 13:22) ITCHY, SWELLING seafood Allergy (Severe, Verified 12/12/24 13:22) Rash tomato [TOMATO] Allergy (Severe, Verified 12/12/24 13:22) ITCHY, SWELLING aspirin [ASA] Allergy (Intermediate, Verified 12/12/24 13:22) ITCHY,ANXIOUS, itching, rash Iodinated Contrast Media [IV CONTRAST] Allergy (Intermediate, Verified 12/12/24 13:22) HIVES plantain [PLANTAIN] Allergy (Intermediate, Verified 12/12/24 13:22) ITCHY/SWELLING HPI Comments Details: Violeta is back in my office after the MRI results reported. She is suffering mostly from axial pain which is exacerbated by prolonged sitting and prolonged standing and with increased activities. On the dictation of the MRI note there is no inferring about Modic type changes (see as below), however after personal examination I was able to detect and L4-5 Modic type 1 changes in these vertebraes. I offered this patient to have intercept procedure. Patient agreed to go for the procedure. During the procedure I will perform L4-5 transforaminal epidural steroid injection on the right because patient also has foraminal stenosis at this level more advanced on the right. In the past she received diagnostic medial branch block on the right side L3-L4 dorsal ramus L5 on 12/14/2022. She reported very minimal pain relief from 9-to 6 for the 4th our after the injection only. She reports pain increase with activities. She had multiple sessions of physical therapy none of which resulted in pain relief. She continues home exercise program at this time with minimal relief. 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 She reports the pain travels across the lower back and radiates into the right leg with associated numbness, tingling, weakness throughout the entire right leg. She has had multiple falls over the past few months due to the pain and weakness. She denies any bowel/bladder dysfunction or saddle anesthesia. She reports pain onset was gradual, constant and rates the pain a 9-10/10. She states the pain is interfering with sleep, activities of daily living and she cannot function normally.? Her pain is exacerbated by any activity. She reports some alleviation with recumbency. She has been taking gabapentin 300 mg TID with little to no effect on pain. She is also on allopurinol for gout. She has also tried voltaren, lidocaine patches, NSAIDS including indomethacin, heat/ice and tylenol with minimal effect. She has attempted physical therapy in the past with minimal alleviation in symptoms. She reports having lumbar injections in the past without effect and believes they were performed at [facility]. She also reports being evaluated by neurosurgery who offered surgery but patient deferred. She last had imaging of the lumbar spine, this report is dictated below. Her past medical history is significant for HTN, OA, PVD, Mood disorder, asthma, CKD [facility] Medical History Pain in left shoulder Screening for viral disease COPD (chronic obstructive pulmonary disease) Restrictive lung disease Allergic rhinitis ZOEY (obstructive sleep apnea) Edema PVD (peripheral vascular disease) On beta prashant at home Osteopenia Gout Osteoporosis Osteoarthritis Rheumatoid arthritis Anemia Panic attacks Anxiety Schizophrenia Pre-diabetes CKD (chronic kidney disease), stage III GERD (gastroesophageal reflux disease) Fatty liver Myocardial infarction CAD (coronary artery disease) Angina pectoris HTN (hypertension) Morbid obesity ZOEY treated with BiPAP COPD (chronic obstructive pulmonary disease) Allergic rhinitis Surgical History History of colonoscopy (~2021) History of lumpectomy of right breast (06/21/22) History of bladder suspension procedure History of esophagogastroduodenoscopy (EGD) Hx of colonoscopy History of hysterectomy History of tubal ligation History of lumpectomy of right breast Family History Mother Leukemia Brother Colon cancer Brother Leukemia Sister Breast cancer Sister Vaginal cancer Sister Breast cancer Sister Breast cancer Daughter Thyroid disease Social History Alcohol intake: never Patient Tobacco Use Status: Never used Tobacco Second Hand Smoke Exposure: No Female Reproductive History Menstrual Age of Menarche: 13 Review of Systems Const All systems reviewed & are unremarkable except as noted in HPI and below Physical Exam Vital Signs: Last Vital Signs Pulse 74 12/12/24 13:21 BP 149/69 H 12/12/24 13:21 BMI result Body Mass Index 46.8 Const General: cooperative, healthy appearing, no acute distress and alert Orientation/consciousness: patient oriented x3 Limitations: no limitations HEENT Head: Yes normal to inspection, Yes normocephalic and Yes atraumatic Ears: hearing grossly normal bilaterally Eyes General: appearance normal, both eyes and all related structures Neck Neck: Yes normal visual inspection, Yes supple and Yes no JVD Resp Effort & Inspection: normal respiratory effort, able to speak in complete sentences and no audible wheezes Cardio Jugular venous distension: no JVD Peripheral pulses: Peripheral pulses 2+ throughout (no appreciable rhythmic abnormalities) Back/Spine/Pelvis Other: Patient unable to walk on heels and tip toes due to pain and weakness. Can flex forward to 30 degrees and extend to 5 degrees before experiencing lumbar pain. Demonstrates 3-4/5 strength of quadriceps bilaterally as well as flexion/dorsiflexion of bilateral feet against resistance. Diminshed DTR diminsihed and symmetrical. Straight leg rise with dorsiflexion negative bilaterally. Norberto test and Pelvic compression test + bilaterally. Facet loading test + bilaterally. Unable to perform Stinchfield test due to pain. Significant TTP throughout lumbar spine and SIJ bilaterally. Thoracic/Lumbar Spine: thoracic and lumbar spine normal to inspection, No Thoracic/lumbar spine scar(s), pain with thoraco-lumbar ROM, paraspinal muscle tenderness, thoraco-lumbar ROM limited, thoracic spinal tenderness and lumbar spinal tenderness Sacroiliac joints: bilaterally tender to palpation Neuro General: patient oriented x3, No gait normal and moves all extremities Results Reviewed Results Reviewed: MR LUMBAR SPINE WITHOUT CONTRAST CLINICAL INFORMATION: Spinal stenosis, lumbar region without neurogenic claudication COMPARISON: MRI lumbar spine on 12/16/2012 TECHNIQUE: MRI of the lumbar spine was obtained using routine sequences without contrast. FINDINGS: Transitional anatomy with sacralization of L5. Preservation of the normal lumbar lordosis. Grade 1 anterolisthesis at L4-5. There is an acute Schmorl's node at L1 inferior endplate with associated edema involving the opposing L1-2 vertebrae. The vertebral body heights are preserved. Multilevel disc desiccation and disc height loss, worse and moderate to severe at L1-2 and L2-3. Multilevel endplate osteophytosis. The visualized spinal cord is normal in caliber. No abnormal cord signal. The conus medullaris terminates at L1. T12-L1: Diffuse disc bulge and bilateral facet arthrosis. Mild left neural foraminal narrowing, new. No significant spinal canal stenosis. L1-2: Diffuse disc bulge, ligamentum flavum hypertrophy, and bilateral facet arthrosis. Mild spinal canal stenosis, new. Mild left greater than right neural foraminal narrowing, new on the right. L2-3: Diffuse disc bulge with superimposed annular fissure. Ligamentum flavum hypertrophy and bilateral facet arthrosis. Mild spinal canal stenosis, similar to prior. Mild left greater than right neural foraminal narrowing, unchanged. L3-4: Diffuse disc bulge, ligamentum flavum hypertrophy, and bilateral facet arthrosis. Mild spinal canal stenosis, similar to prior. Mild to moderate bilateral neural foraminal narrowing, unchanged on the right and new on the left with a disc abutting the exiting L3 nerve roots bilaterally. L4-5: Diffuse disc bulge, ligamentum flavum hypertrophy, and bilateral facet arthrosis. Moderate to severe spinal canal stenosis, stable to slightly progressed from prior. Severe left and moderate to severe right neural foraminal narrowing, unchanged with impingement of the exiting L4 nerve roots bilaterally. L5-S1: Shallow disc bulge and bilateral facet arthrosis. No significant spinal canal or neural foraminal narrowing. The paravertebral soft tissues are unremarkable. MR/MR lumbar spine wo con IMPRESSION: 1. Multilevel lumbar spondylosis as described above, most notable at L4-5 where there is stable to slightly progressed moderate to severe spinal canal stenosis as well as unchanged severe left and moderate to severe right neural foraminal narrowing with impingement of the exiting L4 nerve roots bilaterally. 2. Acute Schmorl's node at L1 inferior endplate with associated reactive edema involving the opposing L1-2 vertebrae. I personally examined MRI of this patient and it appears to be that she has Modic type changes at L2 and L3 adjacent levels as well as at L4 and L5. Assessment & Plan Assessment & Plan (1) Lumbar radiculopathy: Code(s): M54.16 - Radiculopathy, lumbar region Category: Medical (2) Spinal stenosis at L4-L5 level: Code(s): M48.061 - Spinal stenosis, lumbar region without neurogenic claudication Category: Medical (3) Vertebrogenic low back pain: Code(s): M54.51 - Vertebrogenic low back pain Category: Medical Plan I will schedule this patient for intercept procedure L2, L3, L4, L5. The online information was given to the patient to watch.. Explained to the patient in detail risks and benefits of this procedure. Patient appeared to be understanding. This procedure will be scheduled under general anesthesia. The patient also has foraminal stenosis more pronounced on the right I am planning to perform during the procedure transforaminal L4-5 epidural steroid injection Patient Instructions: I here by testify that I spent 32 minutes in conversation with this patient as well as evaluating her MRI report as well as examining her MRI images as well as planning her care and organizing this note. Liane Magallanes complaint evaluation officer was helping us to maintain conversation today in Urdu. Coding Level of Care Code Est Pt Level 4 (38531) Diagnoses Lumbar radiculopathy M54.16 Spinal stenosis at L4-L5 level M48.061 Vertebrogenic low back pain M54.51
[2024-12-12 13:21] VITALS: BP 149/69; PULSE 74; BMI 46.8
--- OUTSIDE RECORDS SUMMARY | 2024-12-12 14:54 | XMS_ITS | Encounter Summary ---
Author Organization [facility] Address [address] [facility] [address] [place] [address] Care Team Providers Care Mohs Surgeon/General Dermatologist Name Role Phone Violeta Boo MD Primary Care Provide r Reason for Visit * Reason Onset Date Comments dme wheel chair 11/30/2024 Encounter Details Date Type Department Care Team (Late st Contact Info) Description 11/30/2024 Telephone [facility] MEDICINE [address] [place] [address] Emerald King MA dme wheel chair Social History Tobacco Use Types Packs/Day Years Used Date Smoking Tobacco: Never Passive Smoke Exposure: Never Smokeless Tobacco: Never Alcohol Use Standard Drinks/Week Comments Never 0 (1 standard drink = 0.6 oz pur e alcohol) Depression Answer Date Recorded Patient Health Questionnaire-9 Score 17 08/13/2024 Patient Health Questionnaire-9 Score 17 08/13/2024 Last PHQ-9: Questionnaire Data Not on file 0 08/13/2024 Housing Stability Answer Date Recorded What is your housing situation today? I have chantal alexandre 01/25/[address] you li ve. Do you have problems with any of the following? None of the above 01/25/2024 Food Insecurity Answer Date Recorded Within the past 12 months, y ou worried that your food would run out before you got money to buy more: Never True 08/29/2023 Within the past 12 months,th e food you bought just didn't last and you didn't have enough money to get more: Never True Transportation Answer Date Recorded In the past 12 months, has l ack of transportation kept you from medical appts, meetings, work or from getting things needed for daily living? No 01/25/2024 Utilities Answer Date Recorded In the past 12 months, has t he electric, gas, oil or water company threatened to shut off services in your home? No 08/29/2023 Depression Answer Date Recorded Patient Health Questionnaire-2 Score 6 08/13/2024 Comments Unknown Sex and Gender Information Value Date Recorded Sex Assigned at Female 09/13/2022 10:22 AM EDT Legal Sex Female 10:22 AM EDT Gender Identity Female 09/13/2022 10:22 AM EDT Sexual Orientation Choose not to disclose 2021 10:22 AM EDT documented as of this encounter Miscellaneous Notes * Telephone Encounter - Emerald King MA - 11/30/2024 4:24 PM EST DME- Generated prescription for WC on 11/30/2024 , waiting for provider to sign.Signed , scanned andfax on 12/06/2024. documented in this encounter Plan of Treatment Upcoming Encounters Date Type Department Care Team (Late st Contact Info) Description 01/25/2025 9:00 AM EDT Office Visit [facility]OMETRY [address] [place] [address] Caden, Angella, OD [address] [place] [address] documented as of this encounter Visit Diagnoses Not on filedocumented in this encounter Additional Health Concerns Assessment Noted Time PHQ-9 Depression Total Score: 17 024 11:23 AM EDT documented as of this encounter Care Teams Mohs Surgeon/General Dermatologist Relationship Specialty Start Date End Date Violeta Boo MD [address] [place] [address] PCP - General Family Medicine 05/21/22 documented as of this encounter
--- OUTSIDE RECORDS SUMMARY | 2024-12-12 14:54 | XMS_ITS | Encounter Summary ---
Author Organization [facility], Address [address] [place] [address] Phone Care Team Providers Care Easter Bunny Name Role Phone Violeta Boo MD Primary Care Provide r Encounter Details Date Type Department Care Team (Late st Contact Info) Description 03/15/2022 Documentation Only [facility] [address] [place] [address] Shailesh Vallejo MD [address] [place] [address] [place] [address] Social History Tobacco Use Types Packs/Day Years Used Date Smoking Tobacco: Never Assessed Comments Unknown Sex and Gender Information Value Date Recorded Sex Assigned at Not on file Legal Sex Female 10:16 AM EST Gender Identity Not on file Sexual Orientation Not on file documented as of this encounter Plan of Treatment Upcoming Encounters Date Type Department Care Team (Late st Contact Info) Description 03/19/2025 1:30 PM EDT Office Visit [facility] [address] [place] [address] Shailesh Vallejo MD [address] [place] [address] [place] [address] documented as of this encounter Visit Diagnoses Not on filedocumented in this encounter Care Teams Easter Bunny Relationship Specialty Start Date End Date Violeta Boo MD [address] [place] [phone] PCP - General Internal Medicine 03/21/23 documented as of this encounter
--- OUTSIDE RECORDS SUMMARY | 2024-12-12 14:54 | XMS_ITS | Clinical Summary ---
Author Organization [facility] Address [address] [place] [address] Phone Care Team Providers Care Oracle Software Engineer Name Role Phone Violeta Boo MD Primary Care Provide r Allergies Active Allergy Reactions Criticality Noted Date Comments Aspirin 11/03/2017 Other Reaction(s): Rash/Dermatitis Iodinated Contrast Media 11/03/2017 Contrast Dye [iv Contrast Dye] Other 10/30/2012 Diagnostic X-ray Materials Medications Medication Sig Dispensed Refills Start Date End Date Status acetaminophen (TYLENOL) 500 mg tablet TAKE 2 TABLETS BY MOUTH EVERY 8 HOURS NEEDED 08/03/2023 Active albuterol 2.5 mg /3 mL (0.083 %) nebulizer solution INHALE 1 AMPULE USING A NEBULIZER THREE TIMES DAILY 08/03/2023 Active albuterol HFA (PROAIR HFA ; PROVENTIL HFA ; VENTOLIN HFA) 90 mcg/actuation inhaler Inhale into the lungs. 03/10/2022 Active atorvastatin (LIPITOR) 80 mg tablet TAKE 1 TABLET BY MOUTH EVERY MORNING 04/11/2015 Active brimonidine (ALPHAGAN) 0.2 % ophthalmic solution INSTILL 1 DROP INTO THE AFFECTED EYE(S) THREE TIMES DAILY DIRECTED 07/14/2023 Active calcium carbonate-vitamin D3 (Calcium 600 with Vitamin D3) 600 mg-10 mcg (400 unit) chewable tablet TAKE 1 TABLET BY MOUTH TWICE DAILY IN THE MORNING AND IN THE EVENING 07/29/2020 Active chlorthalidone (HYGROTON) 25 mg tablet TAKE 1 TABLET BY MOUTH EVERY MORNING 09/30/2022 Active clotrimazole (LOTRIMIN) 1 % cream Apply to skin and toenails daily for 12 weeks 08/07/2024 Active cyanocobalamin, vitamin B-12, 1,000 mcg tablet, sublingual DISSOLVE 1 TABLET UNDER THE TONGUE EVERY DAY 09/29/2022 Active ferrous sulfate 325 mg (65 mg elemental iron) tablet TAKE 1 TABLET BY MOUTH EVERY MORNING 03/22/2023 Active fexofenadine (PAM) 180 mg tablet TAKE 1 TABLET BY MOUTH EVERY MORNING 07/29/2020 Active fluocinolone (DERMA-SMOOTHE) 0.01 % external oil Apply topically. 12/16/2022 Acti ve fluticasone propionate (FLONASE) 50 mcg/actuation nasal spray 2 Sprays by Nasal route. 08/27/2022 Active fluticasone-salmetero l (ADVAIR DISKUS) 250-50 mcg/dose diskus inhaler Inhale 1 Puff into the lungs. Active gabapentin (NEURONTIN) 300 mg capsule TAKE 1 CAPSULE BY MOUTH TWICE DAILY IN THE MORNING AND IN THE EVENING 12/27/2022 Active glucose blood test strip TEST BLOOD SUGAR ONCE DAILY 03/02/2023 Active meclizine (ANTIVERT) 25 mg tablet Take 1 Tablet by mouth. 04/06/2022 Active metoprolol succinate (TOPROL-XL) 50 mg 24 hr tablet TAKE 1 TABLET BY MOUTH EVERY MORNING 01/24/2023 Active montelukast (SINGULAIR) 10 mg tablet TAKE 1 TABLET BY MOUTH EVERY EVENING 04/11/2015 Active OLANZapine (ZyPREXA) 15 mg tablet Take 1 Tablet by mouth. Active pantoprazole (PROTONIX) 40 mg EC tablet TAKE 1 TABLET BY MOUTH EVERY MORNING 08/26/2020 Active simethicone (MYLICON,GAS-X) 180 mg capsule TAKE 1 CAPSULE BY MOUTH EVERY 8 HOURS WITH MEALS NEEDED FOR GAS 06/20/2023 Active triamcinolone (KENALOG) 0.1 % cream Apply topically. 12/16/2022 Active Active Problems Problem Noted Date Diagnosed Date Anxiety 10/08/2024 Asthma 10/08/2024 Chronic kidney disease, stage III (moderate) Essential hypertension, benign 10/08/2024 Hyperlipidemia 10/08/2024 Osteopenia 10/08/2024 Primary osteoarthritis of both knees 10/08/2024 Psychotic disorder 10/08/2024 Tubular adenoma of colon 10/08/2024 Dyslipidemia 08/26/2023 Lumbar spinal stenosis 08/26/2023 Other spondylosis with radiculopathy, lumbar reg ion 08/26/2023 Overview (10/08/2024): Last Assessment & Plan: Ms. Karl Monterroso describes low back pain with radiation to the right leg and numbness in the left leg. She has degenerative changes throughout the lumbar spine seen on her MRI. L4-5 has severe desiccation and loss of height and there are more mild changes at L3-4 and L2-3. She has bilateral lateral recess stenosis at L2-3 and L4-5 with foraminal stenosis at L4-5. There is just a little bit of a slip at L4-5 and I would like to see whether or not this moves with flexion and extension views. She has been through significant conservative treatment and is not sure whether or not she would consider surgery. I will call her in follow-up after the x-rays and after discussing with Dr. Chacon. Right hip pain 08/26/2023 Overview (10/08/2024): Last Assessment & Plan: Ms. Karl Monterroso describes right hip pain. She had a positive right hip mechanical test. I am going to send her for x-rays of the right hip to rule out any pathology there. Sensory neuropathy 08/26/2023 Somatoform pain disorder 08/26/2023 Intertrigo 04/27/2023 Overview (10/08/2024): Last Assessment & Plan: Maintain area dry and clean Patient already referred to dermatology Chronic bilateral low back pain with bilateral s ciatica 03/08/2023 Overview (10/08/2024): Last Assessment & Plan: I advise patient to do her XRAY she will be contacted with results Chronic diarrhea 03/08/2023 Hemorrhoids, complicated 03/08/2023 Overview (10/08/2024): Last Assessment & Plan: Patient has an appointment with surgery in 1 week I advise not to miss her appointment Onychomycosis 03/08/2023 Type 2 diabetes mellitus 01/31/2023 Otitis externa 12/16/2022 Overview (10/08/2024): Last Assessment & Plan: Combined with seborrheic dermatitis. Use cortisporin ear drops and triamcinolone cream on affected ear. 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 Recommended to us albuterol inhaler TID x2 days than PRN. No change in other inhalers. Vertigo 11/05/2022 Chronic gouty arthritis 09/08/2018 Episodic mood disorder 08/08/2018 Generalized osteoarthritis 08/08/2018 Morbid obesity 08/08/2018 Overview (10/08/2024): Last Assessment & Plan: Discussed re weight reduction options including exercise, life style modifications, diet, referral to employment service specialist. Discussed re lower calorie intake, increase dietary fiber Pt agreed to be referred to dietitian. Non-cardiac chest pain 08/08/2018 Seasonal allergies 08/08/2018 Unintended awareness under g eneral anesthesia during procedure 08/08/2018 Immunizations Name Administration Dates Next Due Influenza Quadravalent, MDCK , 0.5ml, preservative free (Flucelvax) 6mo and older 03/12/2022 Influenza trivalent, 0.5mL, preservative free (Fluarix; FluLaval; Fluzone) ages 6mo and older (Afluria) 3 years and older 08/26/2022,08/10/2019,08/08/2018,12/12,08/17/2016,08/20/2015,08/01/2013 ,10/23/2012 Influenza trivalent, with pr eservative (Fluzone; Afluria) 6mo and older 08/27/2014 Pneumococcal conjugate 13 va lent (Prevnar 13, PCV13) 2mo and older 12/12/2017 Pneumococcal polysaccharide 23 valent (Pneumovax 23) 2yo and older 03/19/2019,01/29/2013 Tdap Tetanus diptheria acell ular pertussis (Boostrix; Adacel) 7yo and older 01/29/2013 Zoster Live 01/14/2015 Zoster recombinant (Shingrix ) 19yo and older 11/29/2019,08/22/2019 Social History Tobacco Use Types Packs/Day Years Used Date Smoking Tobacco: Never Assessed Sex and Gender Information Value Date Recorded Sex Assigned at Not on file Gender Identity Not on file Sexual Orientation Not on file Job Start Date Occupation Industry Not on file Not on file Not on file Last Filed Vital Signs Vital Sign Reading Time Taken Comments Blood Pressure - - Pulse - - Temperature - - Respiratory Rate - - Oxygen Saturation - - Inhaled Oxygen Concentration - - Weight 127 kg (280 lb) 08/07/2024 1:07 PM EDT Height 165.1 cm (5' 5 ) 08/07/2024 1:07 PM EDT Body Mass Index 46.59 08/07/2024 1:07 PM EDT Plan of Treatment Upcoming Encounters Date Type Department Care Team (Late st Contact Info) Description 01/16/2025 1:00 PM EST Office Visit Orthopedic Surgery - [place] [address] [phone] Maury Godoy, DPM [address] [address] Health Maintenance Due Date Last Done Comments Breast Cancer Screening 1950 Diabetes: Annual Foot Exam 1962 Diabetes: Annual Retina Eye Exam 1962 RSV Immunization Patients 60+ Years Old (1 - Risk 60-74 years 1-dose series) 2012 Colorectal Cancer Screening: Colonoscopy 10/24/2022 Depression Screening 10/24/2022 Falls Risk Assessment 10/24/2022 Hepatitis C Screening 10/24/2022 Medicare Annual Wellness Visit 10/24/2022 Osteoporosis Screening (Bone Density Screening) 10/24/2022 Social Influencers of Health Screening 10/24/2022 DTaP,Tdap,and Td Vaccines (2 - Td or Tdap) 01/29/2023 01/29/2013 Diabetes: Annual Urine Albumin-Creatinine Ratio (uACR) 12/17/2023 Diabetes: Blood Sugar Control Test (HGBA1C) 12/17/2023 08/09/2022 COVID-19 Vaccine ( season) 2024 08/26/2022, 03/31/2022, 03/12/2022 Influenza Vaccine (#1) 2024 , 03/12/2022, 08/10/2019, Additional history exists Diabetes: Annual GFR (Glomerular Filtration Rate) 03/01/2025 03/01/2024 Hypertension/CHF/CAD Annual BMP Blood Test 03/01/2025 03/01/2024 Cholesterol Screening (Lipid Panel) 03/15/2027 03/15/2022 Pneumococcal Vaccine: 65+ Years Completed 03/19/2019, 12/12/2017, 01/29/2013 Zoster Vaccines Completed 11/29/2019, 10/0 07/2019, 01/14/2015 HIB Vaccines Aged Out No longer eligi ble based on patient's age to complete this topic HPV Vaccines Aged Out No longer eligi ble based on patient's age to complete this topic Hepatitis A Vaccines Aged Out No long er eligible based on patient's age to complete this topic Hepatitis B Vaccines Aged Out No long er eligible based on patient's age to complete this topic IPV Vaccines Aged Out No longer eligi ble based on patient's age to complete this topic MMR Vaccines Aged Out No longer eligi ble based on patient's age to complete this topic Meningococcal ACWY Vaccine Aged Out N o longer eligible based on patient's age to complete this topic RSV Immunization Patients Under 20 months Aged Out No longer eligible based on patient's age to complete this topic Varicella Vaccines Aged Out No longer eligible based on patient's age to complete this topic Procedures Procedure Name Priority Date/Time Associated Diagnosis Comments ANNUAL BMP BLOOD TEST Routine 03/01/2024 HEMOGLOBIN A1C Routine 08/09/2022 LIPID PANEL Routine 03/15/2022 from Last 3 Months or Most Recently Relevant to Health Maintenance Results * Annual BMP Blood Test (03/01/2024) Annual BMP Blood Test Abstracted Historical Provider MD ROSE MAINTENANC E * Hemoglobin A1c (08/09/2022) Hemoglobin A1C 0.0 % Comment:No Interpretation, A bstracted Blood Venous blood specimen / Unknown Historical Provider LAB BLOOD ORDERAB LES * Lipid panel (03/15/2022) LDL/HDL Ratio 0 Comment:No Interpretation, A bstracted Triglycerides 0 mg/dL Comment:No Interpretation, A bstracted Cholesterol 0 mg/dL Comment:No Interpretation, A bstracted HDL 0 mg/dL Comment:No Interpretation, A bstracted LDL Cholesterol 0 mg/dL Comment:No Interpretation, A bstracted Blood Venous blood specimen / Unknown Historical Provider LAB BLOOD ORDERAB LES from Last 3 Months or Most Recently Relevant to Health Maintenance Care Teams Oracle Software Engineer Relationship Specialty Start Date End Date Violeta Boo MD [address] [place] [phone] PCP - General 03/29/23
--- OUTSIDE RECORDS SUMMARY | 2024-12-12 14:54 | XMS_ITS | Clinical Summary ---
Author Organization [employer] Address [address] [place] [address] [address] [place] [address] Care Team Providers Care Tapper Hand Name Role Phone Violeta Boo MD Primary Care Provide r Allergies Active Allergy Reactions Criticality Noted Date Comments Aspirin Rash High 10/23/2012 Other reaction(s): rash Iodinated Contrast Media 10/30/2012 Medications albuterol (ProAir HFA) 108 (90 Base) MCG/ACT inhaler Inhale every 6 (six) hours. 03/10/20 Active fluticasone (Flonase Allergy Relief) 50 MCG/ACT nasal spray Administer 2 sprays into affected nostril(s) 1 (one) time each day. 08/27/20 Active Fluticasone-Oneal meterol (Advair Diskus) 250-50 MCG/ACT aerosol powder Inhale 1 puff every 12 (twelve) hours. Active hydrocortisone (Anusol-HC) 2.5 % rectal cream Apply topically every 12 (twelve) hours. 07/09/20 Active lidocaine (Lidoderm) 5 % patch Place 1 patch on the skin in the morning. 04/06/20 22 Active losartan (Cozaar) 100 MG tablet Take 1 tablet by mouth 1 (one) time each day. 03/10/20 Active meclizine (Antivert) 25 MG tablet Take 1 tablet by mouth every 8 (eight) hours. 04/06/20 Active OLANZapine (ZyPREXA) 15 MG tablet Take 1 tablet by mouth 1 (one) time each day. Active Cyanocobalamin (Vitamin B-12) 1000 MCG sublingual tablet DISSOLVE 1 TABLET UNDER THE TONGUE EVERY DAY 09/29/20 22 Active triamcinolone (Kenalog) 0.1 % creamIndication s:Seborrheic dermatitis Apply topically if needed in the morning and at bedtime (pain and swelling). 30 g 2 12/16/19 23 Active OneTouch Ultra test stripIndication s:Vertigo TEST BLOOD SUGAR ONCE DAILY 50 strip 11 03/02/20 23 Active pantoprazole (ProtoNix) 40 MG EC tablet TAKE 1 TABLET BY MOUTH EVERY MORNING 03/02/20 23 Active fexofenadine (Lelia) 180 MG tablet TAKE 1 TABLET BY MOUTH EVERY MORNING 30 tablet 11 03/30/20 23 Active fexofenadine (Lelia) 180 MG tablet TAKE 1 TABLET BY MOUTH EVERY MORNING 03/02/20 23 Active metoprolol succinate XL (Toprol-XL) 50 MG 24 hr tablet TAKE 1 TABLET BY MOUTH EVERY MORNING 01/25/20 23 Active Acetaminophen Extra Strength 500 MG tabletIndicatio ns:Pain TAKE 2 TABLETS BY MOUTH EVERY 8 HOURS NEEDED 60 tablet 1 08/03/20 23 Active albuterol (2.5 MG/3ML) 0.083% nebulizer solution INHALE 1 AMPULE USING A NEBULIZER THREE TIMES DAILY 90 mL 3 08/03/20 23 Active clotrimazole-be tamethasone (Lotrisone) creamIndication s:Intertrigo APPLY TOPICALLY TO AFFECTED AREA(S) TWICE DAILY 30 g 1 08/05/20 23 Active permethrin (Elimite) 5 % creamIndication s:Dermatitis apply to skin from hairline to toes and wash off 8-10 hours later 60 g 1 03/01/20 24 Active hydrocortisone (Anusol-HC) 2.5 % rectal creamIndication s:Hemorrhoids, complicated Insert into the rectum 2 times daily. 28 g 2 03/01/20 24 Active atorvastatin (Lipitor) 80 MG tablet TAKE 1 TABLET BY MOUTH EVERY MORNING 30 tablet 03/07/20 24 Active montelukast (Singulair) 10 MG tablet TAKE 1 TABLET BY MOUTH EVERY EVENING 30 tablet 11 03/07/20 24 Active pantoprazole (ProtoNix) 40 MG EC tablet TAKE 1 TABLET BY MOUTH EVERY MORNING 30 tablet 03/07/20 24 Active Calcium Carb-Cholecalci ferol 600-10 MG-MCG tablet TAKE 1 TABLET BY MOUTH TWICE DAILY IN THE MORNING AND IN THE EVENING 60 tablet 11 03/07/20 24 Active FeroSul 325 (65 Fe) MG tablet TAKE 1 TABLET BY MOUTH EVERY MORNING 30 tablet 11 03/07/20 24 Active metoprolol succinate XL (Toprol-XL) 50 MG 24 hr tablet TAKE 1 TABLET BY MOUTH EVERY MORNING 90 tablet 3 04/11/20 24 Active Simethicone Ultra Strength 180 MG capsuleIndicati ons:Chronic diarrhea TAKE 1 CAPSULE BY MOUTH EVERY 8 HOURS WITH FOOD NEEDED FOR GAS 90 capsule 2 04/16/20 24 Active sertraline (Zoloft) 100 MG tablet Take 100 mg by mouth in the morning. Active sertraline (Zoloft) 50 MG tablet Take 50 mg by mouth in the morning. Active Ozempic, 0.25 or 0.5 MG/DOSE, 2 MG/3ML solution pen-injector INJECT 0.25 MG SUBCUTANEOUSLY EVERY 7 DAYS IN THE ABDOMEN, THIGHS OR UPPER ARM. ROTATE INJECTION SITES. 06/20/20 24 Active melatonin tablet Take 1 mg by mouth if needed at bedtime for sleep. Active hydroxychloroqu ine (Plaquenil) 200 MG tablet Take 200 mg by mouth 2 times daily. 06/21/20 23 Active ezetimibe (Zetia) 10 MG tablet Take 10 mg by mouth in the morning. 04/27/20 24 Active colchicine 0.6 MG tablet Take 0.6 mg by mouth every other day. Active Blood Glucose Monitoring Suppl ([employer] Verio Flex System) w/Device kit USE DIRECTED TO TEST BLOOD SUGAR TWICE DAILY 05/11/20 24 Active allopurinol (Zyloprim) 300 MG tablet Take 300 mg by mouth in the morning. Active doxepin (SINEquan) 25 MG capsuleIndicati ons:Chronic pruritus TAKE 1 CAPSULE BY MOUTH AT BEDTIME 90 capsule 1 08/29/20 24 Active chlorthalidone (Hygroton) 25 MG tablet TAKE 1 TABLET BY MOUTH EVERY MORNING 90 tablet 1 08/29/20 24 Active gabapentin (Neurontin) 300 MG capsuleIndicati ons:Pain TAKE 1 CAPSULE BY MOUTH TWICE DAILY IN THE MORNING AND IN THE EVENING 60 capsule 1 08/29/20 24 Active Active Problems Problem Noted Date Diagnosed Date Encounter for screening mamm ogram for malignant neoplasm of breast 08/13/2024 ZOEY (obstructive sleep apnea) 04/30/2024 Assessment & Plan (04/30/2024 3:23 PM EDT): Sleep studies will be ordering today after results likely proper CPAP prescription and referral to sleep medicine Pelvic pain 03/29/2024 Assessment & Plan (08/13/2024 1:13 PM EDT): Being follow by [facility] is pending Vaginal pain 03/29/2024 Rectal pain 03/29/2024 Assessment & Plan (08/13/2024 1:12 PM EDT): Patient is schedule for colonoscopy with Dr Manzano Hearing deficit, bilateral 03/29/2024 Family hx of colon cancer requiring screening co lonoscopy 03/01/2024 Family history of cancer 03/01/2024 Prediabetes 03/01/2024 Assessment & Plan (08/13/2024 1:00 PM EDT): Today extensive discussion was done about life style modifications I advise healthy diet (low calorie) and cardiovascular exercise Assessment & Plan (03/01/2024 11:04 AM EDT): Today extensive discussion was done about life style modifications I advise healthy diet (low calorie) and cardiovascular exercise Dermatitis 03/01/2024 Unstable gait 03/01/2024 Assessment & Plan (03/01/2024 11:05 AM EDT): Shower chair, cane will be prescribe Intertrigo 04/27/2023 Assessment & Plan (04/27/2023 10:04 AM EDT): Maintain area dry and clean Patient already referred to dermatology Chronic bilateral low back pain with bilateral s ciatica 03/08/2023 Assessment & Plan (08/13/2024 1:05 PM EDT): I referred patient to pain management, referral will be printed and given to patient I will also refer her to chiropractor Assessment & Plan (03/01/2024 11:05 AM EDT): XRAY will be order first then possible MRI order and possible referral to pain management Recliner prescription will be generated Assessment & Plan (04/27/2023 10:04 AM EDT): I advise patient to do her XRAY she will be contacted with results Assessment & Plan (03/08/2023 2:08 PM EDT): C/w gabapentine I prescribed todayacetamnophen 1g q 8hrs as needed XRAY ordered F/u 6 weeks televisit Onychomycosis 03/08/2023 Hemorrhoids, complicated 03/08/2023 Assessment & Plan (03/01/2024 11:06 AM EDT): Wipes will be prescribed and hydrocortisone cream To be re-evaluated on next visit Assessment & Plan (04/27/2023 10:04 AM EDT): Patient has an appointment with surgery in 1 week I advise not to miss her appointment Chronic diarrhea 03/08/2023 Seborrheic dermatitis 12/16/2022 Assessment & Plan (12/16/2022 1:58 PM EST): On scalp. Use fluocinolone oil on scalp once per day and FU print controller. Otitis externa 12/16/2022 Assessment & Plan (12/16/2022 1:58 PM EST): Combined with seborrheic dermatitis. Use cortisporin ear drops and triamcinolone cream on affected ear. Bulging lumbar disc 11/05/2022 Overview (01/24/2023): Following pain specialist (01/17/2023) suggesting if still not improving symptoms, consider neurosurgery eval Calcification of breast 11/05/2022 Moderate persistent asthma 11/05/2022 Assessment & Plan (12/16/2022 1:54 PM EST): Ppt has mild wheezing. Recommended to us albuterol inhaler TID x2 days than PRN. No change in other inhalers. 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 Vertigo 11/05/2022 Low back pain 11/02/2021 Stage 3b chronic kidney disease 02/12/2020 Overview (11/05/2022): Update for Diagnosis Load Assessment & Plan (03/08/2023 2:07 PM EDT): BMP will be check Avoid nephrotoxic medications Increase water intake Weight reduction BP control Do not miss appointment with nephrology Chronic gouty arthritis 09/08/2018 Psoriasis 09/08/2018 Chronic kidney disease 08/08/2018 Essential hypertension 08/08/2018 Assessment & Plan (08/13/2024 1:00 PM EDT): Blood pressure elevated, she did not take her medication today, I advise her to take her medication every day without missing any dose I advise low Na and weight reduction Assessment & Plan (03/01/2024 11:04 AM EDT): Patient did not took her medications today I advise not to skip any dose and low Na diet Assessment & Plan (04/27/2023 10:03 AM EDT): Maintenance: BMP: up to date Lipid Panel: up to date ASCVD Risk: patient already on max dose statin - Aerobic exercise to reduce BP. Initial goal of 30 min walk 3-5x/week. Increase as tolerated. - low-sodium diet (goal: <2g/day) and heart healthy diet such as DASH to reduce BP and prevent ASCVD. - Home BP monitoring 1-2 x day with goal of <140/90. - Seek immediate medical attention for chest pain, palpitations, SOB, syncope, or sudden changes in mental status. - Do not change or discontinue current prescriptions without first consulting health care provider Assessment & Plan (03/08/2023 2:06 PM EDT): - low-sodium diet (goal: <2g/day) and heart healthy diet such as DASH to reduce BP and prevent ASCVD. - Home BP monitoring 1-2 x day with goal of <140/90. - Seek immediate medical attention for chest pain, palpitations, SOB, syncope, or sudden changes in mental status. - Do not change or discontinue current prescriptions without first consulting health care provider Assessment & Plan (12/16/2022 1:55 PM EST): BP is fairly well controlled. No change in medications. Pt will check BP at home twice per week and explained to check it after at least 15 minutes of rest and call back if BP is above 160/95 for more than two readings. Generalized osteoarthritis 08/08/2018 Hyperlipidemia 08/08/2018 Mood disorder 08/08/2018 Morbid obesity 08/08/2018 Assessment & Plan (12/16/2022 1:59 PM EST): Discussed re weight reduction options including exercise, life style modifications, diet, referral to client experience specialist. Discussed re lower calorie intake, increase dietary fiber Pt agreed to be referred to dietitian. 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 04/30/2024 Encounters Date Type Department Care Team Description 12/07/2024 Telephone [facility] [address] [place] [address] Violeta Boo MD Referral 11/30/2024 Telephone [facility] [address] [place] [address] Emerald King MA dme wheel chair 11/23/2024 Telephone [facility] [address] [place] [address] Violeta Boo MD Referral 11/20/2024 Telephone [facility] [address] [place] [address] Violeta Boo MD Durable Medical Equipment 11/02/2024 Refill [facility] [address] [place] [address] Violeta Boo MD Pain 10/25/2024 Telephone [facility] [address] [place] [address] Violeta Boo MD Med Refill 10/21/2024 Refill [facility] [address] [place] [address] Violeta Boo MD Pain 10/15/[address] [address] Demarco Finnegan [place] DME request for CPAP 10/05/2024 Travel 10/04/[address] [address] Mandie Torres [place] 09/21/[address] [address] Violeta Boo MD DME WHEELCHAIR 09/18/[address] [address] Violeta Boo MD Patient request call for wheelchair 09/17/[address] [address] Violeta Boo MD Durable Medical Equipment 09/17/[address] [address] Violeta Boo MD callback requested 09/13/2024 Orders Only [facility] External Provider, [facility] 09/11/[address] [address] Violeta Boo MD Durable Medical Equipment from Last 3 Months Immunizations Name Administration Dates Next Due Influenza High-dose Quadriva lent Preservative Free 09/07/2023,08/26/2022 Influenza Injectable Quadriv alant Preservative Free IIV4 MDCK 03/12/2022 Influenza injectable quadriv alent IIV4 with preservative 08/08/2018,12/12/2017,08/17/2016,08/20 Influenza injectable quadriv alent preservative free 08/10/2019 Influenza, High Dose Seasona l, Preservative Free 08/13/2024 Influenza, IIV3, injectable 08/27/2014 Influenza, Split (incl. levi fied surface antigen) 08/01/2013,10/23/2012 Influenza, Unspecified 08/26/2022,08/27/2014 Pfizer Covid-19 Vaccine 12+ 08/13/2024,1 ,03/31/2022,03/12 Pfizer Covid-19 Vaccine 12+ Bivalent 08/26/2022 Pfizer Covid-19 Vaccine 12+ teddy-sucrose (Kc Cap) 03/31/2022,03/12/2022 Pneumococcal Conjugate PCV 13 12/12/2017 Pneumococcal Conjugate PCV 20 08/13/2024 Pneumococcal Polysaccharide PPSV23 03/19/2019, SARS-CoV-2, Unspecified 08/26/2022,03/31/2022, Tdap 01/29/2013 Zoster, Recombinant 11/29/2019,,08/22/2019,08/22 Zoster, live 01/14/2015 Family History Medical History Relation Name Comments Breast cancer Sister two sisters wi th breast cancer in their 40s. Relation Name Status Comments Sister Social History Tobacco Use Types Packs/Day Years Used Date Smoking Tobacco: Never Passive Smoke Exposure: Never Smokeless Tobacco: Never Tobacco Cessation:Counseling Given: Not Answered Alcohol Use Standard Drinks/Week Comments Never 0 [...] not to disclose 2021 10:22 AM EDT Last Filed Vital Signs Vital Sign Reading Time Taken Comments Blood Pressure 152/91 08/13/2024 10:29 AM EDT n meds Pulse 98 08/13/2024 10:29 AM EDT Temperature 36.1 ??C (97 ??F) 08/13/2024 10:29 AM EDT Respiratory Rate 20 08/13/2024 10:29 AM EDT Oxygen Saturation 99% 08/13/2024 10:29 AM EDT Inhaled Oxygen Concentration - - Weight 127 kg (279 lb 6.4 oz) 08/13/2024 10:29 A M EDT Height 160 cm (5' 3 ) 08/13/2024 10:29 AM EDT Body Mass Index 49.49 08/13/2024 10:29 AM EDT Plan of Treatment Upcoming Encounters Date Type Department Care Team (Late st Contact Info) Description 01/25/2025 9:00 AM EDT Office Visit [facility] [address] [place] [address] Caden, Angella, OD [address] [place] [address] Health Maintenance Due Date Last Done Comments CT Colonography 1950 FIT DNA/Cologuard 1950 FIT 1950 FOBT 1950 Sigmoidoscopy 1950 Alcohol/Substance Use Screening 1964 RSV Patients and Patients Aged 60 years or older (1 - Risk 60-74 years 1-dose series) 2012 DTaP/Tdap/Td Vaccines (2 - Td or Tdap) 01/29/2023 01/29/2013 SDOH Screening 01/24/2025 01/25/2024 Depression Monitoring (PHQ-9) 02/10/2025 08/13/2024, 08/13/2024 Depression Screening 08/13/2025 08/13/2024, 08/13/20 24 Diabetes: Hemoglobin A1C 08/13/2025 024, 03/01/2024, 03/08/2023, Additional history exists Tobacco Screening 08/13/2025 08/13/2024 Mammogram 08/30/2025 08/30/2024, 04/15, 05/11/2022, Additional history exists Lipid Panel 03/15/2027 03/15/2022 Colonoscopy 06/11/2027 06/11/2022 Colorectal Cancer Screening 06/11/2027 Zoster Vaccines Completed 11/29/2019, 11/14, 08/22/2019, Additional history exists Hepatitis C Screening Completed 01/02/2020 COVID-19 Vaccine Completed 08/13/2024, , 08/26/2022, Additional history exists Influenza Vaccine Completed 08/13/2024, , 08/26/2022, Additional history exists Pneumococcal Vaccine: 50+ Years Completed 08/13/2024, 03/19/2019, 12/12/2017, Additional history exists HIB Vaccines Aged Out No longer eligi [...] patient's age to complete this topic Meningococcal Vaccine Aged Out No last terell eligible based on patient's age to complete this topic RSV under 20 months Aged Out No longe r eligible based on patient's age to complete this topic Rotavirus Vaccines Aged Out No longer eligible based on patient's age to complete this topic Procedures Procedure Name Priority Date/Time Associated Diagnosis Comments MR LUMBAR SPINE WO CONTRAST Routine 10/09/2024 7:[address] ABDOMEN PELVIS WO CONTRAST Routine 09/13/2024 12:44 PM EDT BI MAMMOGRAM SCREENING TOMOSYNTHESIS BILATERAL Routine 08/30/2024 9:10 AM EDT POCT GLYCATED HEMOGLOBIN, TOTAL Routine 08/13/2024 10:31 AM EDT Prediabetes HM COLONOSCOPY Routine 06/11/2022 LIPID PANEL, STANDARD Routine 03/15/2022 9:22 AM EDT ZZZ HISTORICAL HEPATITIS C ANTIBODY RFLX Routine 01/02/2020 10:23 AM EST from Last 3 Months or Most Recently Relevant to Health Maintenance Results * MR Lumbar Spine w/o Contrast (10/09/2024 7:11 AM EST) Anatomical Region Laterality Modality Spine, L-spine Magnetic Resonan ce 10/09/2024 7:11 AM EST Narrative 11/27/2024 3:57 PM EST ? [facility] ?[address] ?[place] [address] ? Magnetic Resonance Report ? Signed ? Patient: Violeta Alvarenga V ?MR#: MM ?? [id number] ? : 1950 ?Acct:[id number] ? Age/Sex: 74 / F ?ADM Date: 10/09/24 ? Loc: HO.MRI ? Attending Dr: Jigar Trevino MD ? Ordering Physician: Jigar Trevino MD ?? Date of Service: 10/09/24 ?? Procedure(s): MR lumbar spine wo con ?? Accession Number(s): [id number] ? cc: Violeta Boo MD; Jigar Trevino MD ? EXAMINATION: ?? MR LUMBAR SPINE WITHOUT CONTRAST ? CLINICAL INFORMATION: ?? Spinal stenosis, lumbar region without neurogenic claudication ? COMPARISON: ?? MRI lumbar spine on 12/16/2012 ? TECHNIQUE: ?? MRI of the lumbar spine was obtained using routine sequences without ?? contrast. ? FINDINGS: ?? Transitional anatomy with sacralization of L5. ? Preservation of the normal lumbar lordosis. Grade 1 anterolisthesis at ?? L4-5. There is an acute Schmorl's node at L1 inferior endplate with ?? associated edema involving the opposing L1-2 vertebrae. The vertebral ?? body heights are preserved. Multilevel disc desiccation and disc height ?? loss, worse and moderate to severe at L1-2 and L2-3. Multilevel ?? endplate osteophytosis. ? The visualized spinal cord is normal in caliber. No abnormal cord ?? signal. The conus medullaris terminates at L1. ? T12-L1: Diffuse disc bulge and bilateral facet arthrosis. Mild left ?? neural foraminal narrowing, new. No significant spinal canal stenosis. ? L1-2: Diffuse disc bulge, ligamentum flavum hypertrophy, and bilateral ?? facet arthrosis. Mild spinal canal stenosis, new. Mild left greater ?? than right neural foraminal narrowing, new on the right. ? L2-3: Diffuse disc bulge with superimposed annular fissure. Ligamentum ?? flavum hypertrophy and bilateral facet arthrosis. Mild spinal canal ?? stenosis, similar to prior. Mild left greater than right neural ?? foraminal narrowing, unchanged. ? L3-4: Diffuse disc bulge, ligamentum flavum hypertrophy, and bilateral ?? facet arthrosis. Mild spinal canal stenosis, similar to prior. Mild to ?? moderate bilateral neural foraminal narrowing, unchanged on the right ?? and new on the left with a disc abutting the exiting L3 nerve roots ?? bilaterally. ? L4-5: Diffuse disc bulge, ligamentum flavum hypertrophy, and bilateral ?? facet arthrosis. Moderate to severe spinal canal stenosis, stable to ?? slightly progressed from prior. Severe left and moderate to severe ?? right neural foraminal narrowing, unchanged with impingement of the ?? exiting L4 nerve roots bilaterally. ? L5-S1: Shallow disc bulge and bilateral facet arthrosis. No significant ?? spinal canal or neural foraminal narrowing. ? The paravertebral soft tissues are unremarkable. ? MR/MR lumbar spine wo con ?? IMPRESSION: ?? 1. ??Multilevel lumbar spondylosis as described above, most notable at ?? L4-5 where there is stable to slightly progressed moderate to severe ?? spinal canal stenosis as well as unchanged severe left and moderate to ?? severe right neural foraminal narrowing with impingement of the exiting ?? L4 nerve roots bilaterally. ?? 2. ??Acute Schmorl's node at L1 inferior endplate with associated ?? reactive edema involving the opposing L1-2 vertebrae. ? Electronically signed by: ??Anabel Mckeon MD ??11/27/2024 03:54 PM EST RP ? Dictated By: ?Anabel Mckeon MD ? Signed By: ?<Electronically signed by Anabel Mckeon MD in OV> ? 11/27/24 1554 ? DD/ 0711 ? TD/TT: 10/09/24 0805 ? Food Service Specialist: ? Procedure Note [employer], Image - 11/27/2024 [place] [id number] Magnetic Resonance Report Signed Patient: Violeta Alvarenga VMR#: [id number] : 2Acct:[id number] Age/Sex: 74 / FADM Date: 10/09/24 Loc: HO.MRI Attending Dr: Jigar Trevino MD Ordering Physician: Jigar Trevino MD Date of Service: 10/09/24 Procedure(s): MR lumbar spine wo con Accession Number(s): [id number] cc: Violeta Boo MD; Jigar Trevino MD EXAMINATION: MR LUMBAR SPINE WITHOUT CONTRAST CLINICAL INFORMATION: Spinal stenosis, lumbar region without neurogenic claudication COMPARISON: MRI lumbar spine on 12/16/2012 TECHNIQUE: MRI of the lumbar spine was obtained using routine sequences without contrast. FINDINGS: Transitional anatomy with sacralization of L5. Preservation of the normal lumbar lordosis. Grade 1 anterolisthesis at L4-5. There is an acute Schmorl's node at L1 inferior endplate with associated edema involving the opposing L1-2 vertebrae. The vertebral body heights are preserved. Multilevel disc desiccation and disc height loss, worse and moderate to severe at L1-2 and L2-3. Multilevel endplate osteophytosis. The visualized spinal cord is normal in caliber. No abnormal cord signal. The conus medullaris terminates at L1. T12-L1: Diffuse disc bulge and bilateral facet arthrosis. Mild left neural foraminal narrowing, new. No significant spinal canal stenosis. L1-2: Diffuse disc bulge, ligamentum flavum hypertrophy, and bilateral facet arthrosis. Mild spinal canal stenosis, new. Mild left greater than right neural foraminal narrowing, new on the right. L2-3: Diffuse disc bulge with superimposed annular fissure. Ligamentum flavum hypertrophy and bilateral facet arthrosis. Mild spinal canal stenosis, similar to prior. Mild left greater than right neural foraminal narrowing, unchanged. L3-4: Diffuse disc bulge, ligamentum flavum hypertrophy, and bilateral facet arthrosis. Mild spinal canal stenosis, similar to prior. Mild to moderate bilateral neural foraminal narrowing, unchanged on the right and new on the left with a disc abutting the exiting L3 nerve roots bilaterally. L4-5: Diffuse disc bulge, ligamentum flavum hypertrophy, and bilateral facet arthrosis. Moderate to severe spinal canal stenosis, stable to slightly progressed from prior. Severe left and moderate to severe right neural foraminal narrowing, unchanged with impingement of the exiting L4 nerve roots bilaterally. L5-S1: Shallow disc bulge and bilateral facet arthrosis. No significant spinal canal or neural foraminal narrowing. The paravertebral soft tissues are unremarkable. MR/MR lumbar spine wo con IMPRESSION: 1. Multilevel lumbar spondylosis as described above, most notable at L4-5 where there is stable to slightly progressed moderate to severe spinal canal stenosis as well as unchanged severe left and moderate to severe right neural foraminal narrowing with impingement of the exiting L4 nerve roots bilaterally. 2. Acute Schmorl's node at L1 inferior endplate with associated reactive edema involving the opposing L1-2 vertebrae. Electronically signed by: Anabel Mckeon MD 11/27/2024 03:54 PM [facility] Dictated By: Anabel Mckeon MD Signed By: <Electronically signed by Anabel Mckeon MD in OV> 11/27/24 1554 DD/ 0711 TD/TT: 10/09/24 0805 Food Service Specialist: [facility] External Provider IMG MRI PROCEDURES Final Result * CT Abdomen Pelvis w/o Contrast (09/13/2024 12:44 PM EDT) Anatomical Region Laterality Modality Body, Pelvis, Abdomen Computed T omography 09/13/2024 12:4 4 PM EDT Narrative 09/13/2024 5:09 PM EDT ? [facility] ?[address] ?[place] [address] ? CT Scan Report ? Signed ? Patient: Karl Monterroso,Nasreen ?MR#: MM ?? [id number] ? : 1950 ?Acct:[id number] ? Age/Sex: 74 / F ?ADM Date: 09/13/24 ? Loc: HO.CT ? Attending Dr: Brice Manzano MD ? Ordering Physician: Brice Manzano MD ?? Date of Service: 09/13/24 ?? Procedure(s): CT abdomen pelvis wo IV con ?? Accession Number(s): [id number] ? cc: Violeta Boo MD; Brice Manzano MD ? EXAMINATION: ?? CT ABDOMEN AND PELVIS WITHOUT CONTRAST ? CLINICAL INFORMATION: ?? Benign neoplasm of the colon. ? COMPARISON: ?? CT scans dating between August 31, 2022 and March 19, 2014. ? TECHNIQUE: ?? Multidetector volumetric imaging was performed from the superior aspect ?? of the liver through the pubic symphysis. Sagittal and coronal ?? reformatted images were obtained on the technologist's workstation. ? This CT examination was performed using dose optimization techniques as ?? appropriate, variously including the following: ?? *Automated exposure control ?? *Adjustment of mA and/or kV according to patient size (this includes ?? techniques or standardized protocols for targeted exams where dose is ?? matched to indication/reason for exam; i.e. extremities or head) ?? *Use of iterative reconstruction technique ? DLP: ?? 879 mGy-cm ? FINDINGS: ? LUNG BASES: The lung bases appear clear, with no evidence of ?? inflammation or nodules. ? LIVER, GALLBLADDER, AND BILIARY TREE: The liver appears unremarkable in ?? size, shape, and attenuation. No focal hepatic lesion or biliary ductal ?? dilatation is appreciated. Unremarkable appearance of the gallbladder. ? PANCREAS: Unremarkable ? SPLEEN: Unremarkable ? ADRENAL GLANDS: Unremarkable ? KIDNEYS AND URETERS: The kidneys appear unremarkable in size, shape, ?? and attenuation. No hydronephrosis, hydroureter, or calculi seen. ? BLADDER: Unremarkable ? GASTROINTESTINAL TRACT: Unremarkable appearance of the stomach and ?? small bowel. ? Redemonstration of focal wall thickening/mass in the mid transverse ?? colon described on most recent prior study dated August 31, 2022 ?? (currently image 42, axial series 3; image 34, coronal series 5). This ?? is difficult to compare with the most recent prior study, but appears ?? grossly similar. ? Few, scattered sigmoid diverticula without evidence of diverticulitis. ?? Normal-appearing distal ileum and vermiform appendix. ? ABDOMINAL WALL: No significant hernia is appreciated. ? LYMPH NODES: No evidence of adenopathy by size criteria. ? VASCULAR: Unremarkable ? PELVIC VISCERA: Status post hysterectomy. ? OSSEOUS STRUCTURES: No suspicious lytic or sclerotic bony lesion ?? identified. Degenerative changes of the spine with lumbar ?? levocurvature. ? CT/CT abdomen pelvis wo IV con ?? IMPRESSION: ? Redemonstration of focal wall thickening/mass in the mid transverse ?? colon described on most recent prior study dated August 31, 2022. ?? This is difficult to compare with the most recent prior study, but ?? appears grossly similar. ? Electronically signed by: ??Waqas Cid MD ??09/13/2024 05:06 PM EDT RP ? Dictated By: ?Waqas Cid ? Signed By: ?<Electronically signed by Waqas Cid in OV> ?09/13/24 1706 ? DD/ 1244 ? TD/TT: 09/13/24 1313 ? Food Service Specialist: ? Procedure Note Shireen Parsons - 09/13/[address] [place] [address] CT Scan Report Signed Patient: Violeta Alvarenga VMR#: [id number] : 2Acct:[id number] Age/Sex: 74 / FADM Date: 09/13/24 Loc: HO.CT Attending Dr: Brice Manzano MD Ordering Physician: Brice Manzano MD Date of Service: 09/13/24 Procedure(s): CT abdomen pelvis wo IV con Accession Number(s): [id number] cc: Violeta Boo MD; Brice Manzano MD EXAMINATION: CT ABDOMEN AND PELVIS WITHOUT CONTRAST CLINICAL INFORMATION: Benign neoplasm of the colon. COMPARISON: CT scans dating between August 31, 2022 and March 19, 2014. TECHNIQUE: Multidetector volumetric imaging was performed from the superior aspect of the liver through the pubic symphysis. Sagittal and coronal reformatted images were obtained on the technologist's workstation. This CT examination was performed using dose optimization techniques as appropriate, variously including the following: *Automated exposure control *Adjustment of mA and/or kV according to patient size (this includes techniques or standardized protocols for targeted exams where dose is matched to indication/reason for exam; i.e. extremities or head) *Use of iterative reconstruction technique DLP: 879 mGy-cm FINDINGS: LUNG BASES: The lung bases appear clear, with no evidence of inflammation or nodules. LIVER, GALLBLADDER, AND BILIARY TREE: The liver appears unremarkable in size, shape, and attenuation. No focal hepatic lesion or biliary ductal dilatation is appreciated. Unremarkable appearance of the gallbladder. PANCREAS: Unremarkable SPLEEN: Unremarkable ADRENAL GLANDS: Unremarkable KIDNEYS AND URETERS: The kidneys appear unremarkable in size, shape, and attenuation. No hydronephrosis, hydroureter, or calculi seen. BLADDER: Unremarkable GASTROINTESTINAL TRACT: Unremarkable appearance of the stomach and small bowel. Redemonstration of focal wall thickening/mass in the mid transverse colon described on most recent prior study dated August 31, 2022 (currently image 42, axial series 3; image 34, coronal series 5). This is difficult to compare with the most recent prior study, but appears grossly similar. Few, scattered sigmoid diverticula without evidence of diverticulitis. Normal-appearing distal ileum and vermiform appendix. ABDOMINAL WALL: No significant hernia is appreciated. LYMPH NODES: No evidence of adenopathy by size criteria. VASCULAR: Unremarkable PELVIC VISCERA: Status post hysterectomy. OSSEOUS STRUCTURES: No suspicious lytic or sclerotic bony lesion identified. Degenerative changes of the spine with lumbar levocurvature. CT/CT abdomen pelvis wo IV con IMPRESSION: Redemonstration of focal wall thickening/mass in the mid transverse colon described on most recent prior study dated August 31, 2022. This is difficult to compare with the most recent prior study, but appears grossly similar. Electronically signed by: Waqas Cid MD 09/13/2024 05:06 PM EDT RP Dictated By: Waqas Cid Signed By: <Electronically signed by Waqas Cid in OV> 09/13/24 1706 DD/ 1244 TD/TT: 09/13/24 1313 Food Service Specialist: [facility] External Provider IMG CT PROCEDURES Final Result * BI Mammogram Screening Tomosynthesis Bilateral (08/30/2024 9:10 AM EDT) Anatomical Region Laterality Modality Breast Bilateral Mammography 08/30/2024 9:10 AM EDT Narrative 09/11/2024 12:30 PM EDT ? [facility] [place] ? [address] ?[place] [address] ? Mammography Report ? Signed with Addenda ? Patient: Karl Monterroso,Nasreen ?MR#: [id number] ?? [id number] ? : 1950 ?Acct:[id number] ? Age/Sex: 74 / F ?ADM Date: 10/17/24 ? Loc: HO.MAMMO ? Attending Dr: Violeta Pascual MD ? Ordering Physician: Violeta Boo MD ?Results: ?? 2Benign Findings ? Date of Service: 08/30/24 ?Follow Up: 1 Year From Orig ?? inal Mammogram ? Procedure(s): MM tomosynthesis screening BI ?? Accession Number(s): [id number] ? cc: Violeta Boo MD ?ADDENDUM ? ADDENDUM #1 ? ADDENDUM: ?? Due to a software issue related to the original report, this case has ?? been reviewed again and the original findings and recommendations ?? remain the same. ? OVERALL ASSESSMENT: ?? BI-RADS 2 - Benign Findings ? RECOMMENDATION: ?? 1 year F/U ? Electronically signed by: ??Radhika Douglas DO ??09/14/2024 10:26 AM EDT ?? RP ? Addendum Dictated By: ?Radhika Douglas, DO ? Addendum Signed By: ? <Electronically signed by Radhika Douglas, DO in OV> ? 09/14/24 1026 ?? Addendum Cosigned By: ? DD/ ? TD/TT: 08/30/24 ? EXAMINATION: ?? MM SCREENING DIGITAL BREAST TOMOSYNTHESIS, BILATERAL ? CLINICAL INFORMATION: ? Screening. Asymptomatic. ? COMPARISON: ?? Mammography: Comparison is made with available priors ? TECHNIQUE: ?? Digital breast mammography with tomosynthesis is performed in both the ?? craniocaudal and mediolateral oblique views along with computer-aided ?? detection (CAD). ? FINDINGS: ?? The breasts are heterogeneously dense, which may obscure small masses ?? (ACR BI-RADS breast composition Category c). ?? Postsurgical changes of the right breast. ?? There are no significant masses, abnormal calcifications, or other ?? abnormalities. ? MM/MM tomosynthesis screening BI ?? IMPRESSION: ?? No mammographic evidence of malignancy. ? ASSESSMENT: ? BI-RADS BI-RADS 2 - Benign Findings ? RECOMMENDATION: ?? Routine annual mammography screening. ? 1 year F/U ? This examination should not preclude the clinical evaluation of a ?? suspicious palpable abnormality. ? This patient's information was entered into a reminder system with a ?? target due date for their next mammogram. ? Electronically signed by: ??Radhika Douglas DO ??09/11/2024 12:27 PM EDT ?? RP ? Dictated By: ?Radhika Douglas DO ? Signed By: ?<Electronically signed by Radhika Douglas, DO in OV> ? 09/11/24 1227 ? DD/ 9 ? TD/TT: 08/30/24924 ? Food Service Specialist: ? Procedure Note Donotrambointerpreter, Image - 09/14/2024 [place] [facility] [address] [place] [address] Mammography Report Signed with Cynthia Patient: Violeta Alvarenga VMR#: [id number] : 1950cct:[id number] Age/Sex: 74 / FADM Date: 08/30/24 Loc: HO.MAMMO Attending Dr: Violeta Pascual MD Ordering Physician: Violeta Boo MDResults: 2Benign Findings Date of Service: 08/30/24Follow Up: 1 Year From Orig inal Mammogram Procedure(s): MM tomosynthesis screening BI Accession Number(s): [id number] cc: Violeta Boo MD ADDENDUM ADDENDUM #1 ADDENDUM: Due to a software issue related to the original report, this case has been reviewed again and the original findings and recommendations remain the same. OVERALL ASSESSMENT: BI-RADS 2 - Benign Findings RECOMMENDATION: 1 year F/U Electronically signed by: Radhika Douglas DO 09/14/2024 10:26 AM EDT Addendum Dictated By: Radhika Douglas DO Addendum Signed By: <Electronically signed by DO Buddy in OV> 09/14/24 1026 Addendum Cosigned By: DD/ TD/TT: 08/30/24 EXAMINATION: MM SCREENING DIGITAL BREAST TOMOSYNTHESIS, BILATERAL CLINICAL INFORMATION: Screening. Asymptomatic. COMPARISON: Mammography: Comparison is made with available priors TECHNIQUE: Digital breast mammography with tomosynthesis is performed in both the craniocaudal and mediolateral oblique views along with computer-aided detection (CAD). FINDINGS: The breasts are heterogeneously dense, which may obscure small masses (ACR BI-RADS breast composition Category c). Postsurgical changes of the right breast. There are no significant masses, abnormal calcifications, or other abnormalities. MM/MM tomosynthesis screening BI IMPRESSION: No mammographic evidence of malignancy. ASSESSMENT: BI-RADS BI-RADS 2 - Benign Findings RECOMMENDATION: Routine annual mammography screening. 1 year F/U This examination should not preclude the clinical evaluation of a suspicious palpable abnormality. This patient's information was entered into a reminder system with a target due date for their next mammogram. Electronically signed by: Radhika Douglas DO 09/11/2024 12:27 PM EDT Dictated By: Radhika Douglas DO Signed By: <Electronically signed by Radhika Douglas DO in OV> 09/11/24 1227 DD/ 9 TD/TT: 08/30/24924 Food Service Specialist: Violeta Pascual MD IMG BI PROCEDURES Shemar daylin Result - Final * POCT HGB A1C (08/13/2024 10:31 AM EDT) Hemoglobin A1C 6.0 4.0 - 6.0 % QC Media Lot # [id number] Lot# Expiration Date [id number] Blood 08/13/2024 10:3 1 AM EDT Result [facility] us Violeta Pascual MD POINT OF CARE TEST EN TER/EDIT ORDERABLES Final Result * Hm Colonoscopy (06/11/2022) Historical Provider HEALTH MAINTENANCE Final Result * (ABNORMAL) LIPID PANEL, STANDARD (03/15/2022 9:22 AM EDT) Chol/HDLC Ratio 5.6(H) <5.0 (calc) [facility] Cholesterol, Total 151 <200 mg/dL [facility] HDL Cholesterol 27(L) > OR = 50 mg/dL [facility] LDL Cholesterol 96 mg/dL (calc) [facility] Comment: Reference range: <100 ?? Desirable range <100 mg/dL for primary prevention; ?? <70 mg/dL for patients with CHD or diabetic patients ?? with > or = 2 CHD risk factors. ?? LDL-C is now calculated using the Anam ?? calculation, which is a validated novel method providing ?? better accuracy than the Friedewald equation in the ?? estimation of LDL-C. ?? aMdi WADE et al. JUAN LUIS. 2013;310(19): 2758-8003 ?? (http://education.Go World!/faq/LMW984) Non-HDL Cholesterol 124 <130 mg/dL (calc) [facility] Comment: For patients with diabetes plus 1 major ASCVD risk ?? factor, treating to a non-HDL-C goal of <100 mg/dL ?? (LDL-C of <70 mg/dL) is considered a therapeutic ?? option. Triglycerides 190(H) <150 mg/dL [facility] 03/15/2022 9:22 AM EDT Leonard Perez MD LAB BLOOD ORDERABL ES Final Result Performing Organization Address [facility] de Phone Number [facility] [address] [place] [address], * HEPATITIS C ANTIBODY RFLX (01/02/2020 10:23 AM EST) HEPATITIS C ANTIBODY NONREACTIVE NONREACTIVE [facility] Comment: Antibodies to HCV not detected; does not exclude early acute HCV infection. 01/02/2020 10:2 3 AM EST [facility] Provider HISTORICAL/NON ORDERABLE LABS Final Result Performing Organization Address [facility] de Phone Number [facility] [address] [place] [address], from Last 3 Months or Most Recently Relevant to Health Maintenance Insurance [facility] [employer] Care Teams Tapper Hand Relationship Specialty Start Date End Date Violeta Boo MD [address] [place] [address] PCP - General Family Medicine 05/21/22
--- OUTSIDE RECORDS SUMMARY | 2024-12-12 14:54 | XMS_ITS | Encounter Summary ---
Author Organization [employer] Address [address] [facility] 7t [place] [address] Care Team Providers Care Channeling Machine Runner Name Role Phone Violeta Boo MD Primary Care Provide r Reason for Visit * Reason Comments Med Refill Encounter Details Date Type Department Care Team ([facility] st Contact Info) Description 11/02/2024 Refill [facility] [address] [place] [address] Violeta Boo MD [address] [place] [address] Pain Social History Tobacco Use Types Packs/Day Years [...] AM EDT documented as of this encounter Plan of Treatment Upcoming Encounters Date Type Department Care Team (Late st Contact Info) Description 01/25/2025 9:00 AM EDT Office Visit [facility] OPTOMETRY [address] [place] [address] Angella Negrete, OD [address] [place] [address] documented as of this encounter Visit Diagnoses Diagnosis Pain Generalized pain documented in this encounter Additional Health Concerns Assessment Noted Time PHQ-9 Depression Total Score: 17 024 11:23 AM EDT documented as of this encounter Care Teams Channeling Machine Runner Relationship Specialty Start Date End Date Violeta Boo MD [address] [place] [address] PCP - General Family Medicine 05/21/22 documented as of this encounter
--- OUTSIDE RECORDS SUMMARY | 2024-12-12 14:54 | XMS_ITS | Encounter Summary ---
Author Organization [employer] Address [address] [facility] 7 [place] [address] Care Team Providers Care Strap Setter Name Role Phone Violeta Boo MD Primary Care Provide r Reason for Visit * Reason Onset Date Comments Durable Medical Equipment 11/20/2024 Encounter Details Date Type Department Care Team ([facility] st Contact Info) Description 11/20/2024 Telephone [facility] [address] [place] [address] Violeta Boo MD [address] [place], [place] [phone] Durable Medical Equipment Social History Tobacco Use Types Packs/Day Years [...] your housing situation today? I have chantal bettie 01/25/[address] you li [...] encounter Miscellaneous Notes * Telephone Encounter - Zaheer Cain - 11/20/2024 1:00 PM EST Tc from pt requesting new script for rollator walker due to her current one being broken. If any questions you can contact pt at [phone]. (Syrian Speaker) documented in this encounter Plan of Treatment Upcoming Encounters Date Type Department Care Team (Late st Contact Info) Description 01/25/2025 9:00 AM EDT Office Visit [facility] OPTOMETRY [address] [place] [address] Caden, Angella, OD [address] [place] [address] documented as of this encounter Visit Diagnoses Not on filedocumented in this encounter Additional Health Concerns Assessment Noted Time PHQ-9 Depression Total Score: 17 024 11:23 AM EDT documented as of this encounter Care Teams Strap Setter Relationship Specialty Start Date End Date Violeta Boo MD [address] [place] [address] PCP - General Family Medicine 05/21/22 documented as of this encounter
--- OUTSIDE RECORDS SUMMARY | 2024-12-12 14:54 | XMS_ITS | Encounter Summary ---
Author Organization [employer] Address [address] [facility] 7 [place] [address] Care Team Providers Care Component Lab Tech Name Role Phone Violeta Boo MD Primary Care Provide r Reason for Referral * Consultation (Routine) - Closed Specialty Diagnoses / Procedures Referred By Contact Referred To Contact Chiropractic Medicine Diagnoses Chronic bilateral low back pain with bilateral sciatica Violeta Boo MD [address] [place] [address] Phone: tel: fax: [facility] [address] [place] [address] Phone: tel: fax: Referral ID Status Reason Start Date Expiration Date V isits Requested Visits Authorized [id number] Closed Specialty Services Required 12/06/2024 12/06/2025 1 1 Reason for Visit * Reason Onset Date Comments Referral 11/23/2024 Encounter Details Date Type Department Care Team (Late st Contact Info) Description 11/23/2024 Telephone [facility] [address] [place], [place] [phone] Violeta Boo MD [address] [place] [address] [phone] Referral Social History Tobacco Use Types Packs/Day Years [...] encounter Miscellaneous Notes * Telephone Encounter - Leda Ruiz RN - 12/06/2024 11:59 AM EST TC placed to patient [phone] via [employer] (Pavel #[id number]) in regards to below message. Patient advised new referral placed and patient will receive a letter in the mail with appointmentdate and time or a phone number to call to schedule appointment. Patient to f/u PRN. * Telephone Encounter - Leda Ruiz RN - 12/05/2024 4:14 PM EST TC placed to [facility] [phone] in regards to below message. RN was informed referralfrom 09/17/24 is no longer valid as patient has no showed x2 to appointments. RN was informed the patient was scheduled for the end of 09/2024 and 11/23/24 and no showed to both. Please review and advise if agreeable to place new referral for Chronic bilateral low back pain with bilateral sciatica (M54.42,M54.41,G89.29) to [facility] at [address] [facility] [address] FAX [phone]. Thank you! * Telephone Encounter - Siddhartha Lima - 12/05/2024 3:33 PM EST TC from pt requesting status on referral for Chiropractor so that pt can get some Physical Therapy. Contact pt at [phone] * Telephone Encounter - Zaheer Cain - 11/23/2024 10:58 AM EST Tc from pt stating she was advised by [facility] to contact pcp and request new referral be sent with a changed date for them to schedule pt. If any questions you can contact pt at [phone]. (Ukrainian Speaker) Chiropractor Office: [phone]. . documented in this encounter Plan of Treatment Upcoming Encounters Date Type Department Care Team (Late st Contact Info) Description 01/25/2025 9:00 AM EDT Office Visit [facility]ETRY [address] [place], [place] [phone] Angella Negrete, OD [address] [place] [address] Scheduled Referrals Name Type Priority Associated Diagnoses Order Schedule Referral to Chiropractic Outpatient Referral Routine Chronic bilateral low back pain with bilateral sciatica Expected: 12/06/2024 (Approximate), Expires: 12/06/2025 documented as of this encounter Visit Diagnoses Diagnosis Chronic bilateral low back pain with bilateral sciatica- Primary documented in this encounter Additional Health Concerns Assessment Noted Time PHQ-9 Depression Total Score: 17 024 11:23 AM EDT documented as of this encounter Care Teams Component Lab Tech Relationship Specialty Start Date End Date Violeta Boo MD [address] [place] [phone] PCP - General Family Medicine 05/21/22 documented as of this encounter
--- OUTSIDE RECORDS SUMMARY | 2024-12-12 14:54 | XMS_ITS | Encounter Summary ---
Author Organization [employer] Address [address] [facility] 7 [place] [address] Care Team Providers Care Medication Aid Name Role Phone Violeta Boo MD Primary Care Provide r Reason for Visit * Reason Onset Date Comments Referral 12/07/2024 Encounter Details Date Type Department Care Team ([facility] st Contact Info) Description 12/07/2024 Telephone [facility] [address] [place] [address] Violeta Boo MD [address] [place] [address] Referral Social History Tobacco Use Types Packs/Day [...] encounter Miscellaneous Notes * Telephone Encounter - Demi Sanchez - 12/07/2024 11:04 AM EST [facility] states wrong referral was sent over she's requestingPhysical Therapy referral to be faxed over [facility] [phone]. documented in this encounter Plan of Treatment Upcoming Encounters Date Type Department Care Team (Late st Contact Info) Description 01/25/2025 9:00 AM EDT Office Visit [facility] OPTOMETRY [address] [place] [address] Caden, Angella, OD [address] [place] [address] documented as of this encounter Visit Diagnoses Not on filedocumented in this encounter Additional Health Concerns Assessment Noted Time PHQ-9 Depression Total Score: 17 024 11:23 AM EDT documented as of this encounter Care Teams Medication Aid Relationship Specialty Start Date End Date Violeta Boo MD [address] [place] [address] PCP - General Family Medicine 05/21/22 documented as of this encounter
--- OUTSIDE RECORDS SUMMARY | 2024-12-12 14:54 | XMS_ITS | Encounter Summary ---
Author Organization [employer] Address [address] [facility] 7t [place] [address] Care Team Providers Care Assistant Engineer Name Role Phone Violeta Boo MD Primary Care Provide r Reason for Visit * Reason Comments Med Refill Encounter Details Date Type Department Care Team (Late Contact Info) Description 02/13/2023 Refill [facility] [address] [place] [address] Cassy Starks MD [address] [place] [address] Social History Tobacco Use Types Packs/Day Years Used Date Smoking Tobacco: Never Smokeless Tobacco: Never Alcohol Use Standard Drinks/Week Comments Never 0 (1 standard drink = 0.6 oz pur e alcohol) Comments Unknown Sex and Gender Information Value Date Recorded Sex Assigned at Female 09/13/2022 10:22 AM EDT Legal Sex Female 10:22 AM EDT Gender Identity Female 09/13/2022 10:22 AM EDT Sexual Orientation Choose not to disclose 2021 10:22 AM EDT documented as of this encounter Plan of Treatment Upcoming Encounters Date Type Department Care Team (Late Contact Info) Description 01/25/2025 9:00 AM EDT Office Visit [facility] OPTOMETRY [address] [place] [address] Caden, Angella, OD [address] [place] [address] documented as of this encounter Visit Diagnoses Not on filedocumented in this encounter Care Teams Assistant Engineer Relationship Specialty Start Date End Date Violeta Boo MD [address] [place] [address] PCP - General Family Medicine 05/21/22 documented as of this encounter
--- OUTSIDE RECORDS SUMMARY | 2024-12-12 14:54 | XMS_ITS | Encounter Summary ---
Author Organization [employer] Address [address] [place] [address] 7 [place] [address] Care Team Providers Care Mechanical Supervisor Name Role Phone Violeta Boo MD Primary Care Provide r Reason for Visit * Reason Onset Date Comments Appointment Request 02/17/2023 Encounter Details Date Type Department Care Team ([facility] Contact Info) Description 02/17/[address] [facility] MEDICINE [address] [place] [address] Violeta Boo MD [address] [place], [place] [phone] Appointment Request Social History Tobacco Use Types Packs/Day Years [...] encounter Miscellaneous Notes * Telephone Encounter - Shay Navarro - 02/22/2023 10:55 AM EDT Tc from pt returning call for message previously sent. Please contact pt at [phone] Monegasque Speaker * Telephone Encounter - Shay Navarro - 02/17/2023 1:16 PM EDT Tc from pt requesting to r/s appt for Follow up on 02/17/2023. Please contact pt at [phone] Monegasque Speaker documented in this encounter Plan of Treatment Upcoming Encounters Date Type Department Care Team (Late st Contact Info) Description 01/25/2025 9:00 AM EDT Office Visit [facility] OPTOMETRY [address] [place], [place] [phone] Angella Negrete, OD [address] [place] [address] documented as of this encounter Visit Diagnoses Not on filedocumented in this encounter Care Teams Mechanical Supervisor Relationship Specialty Start Date End Date Violeta Boo MD [address] [place] [address] PCP - General Family Medicine 05/21/22 documented as of this encounter
--- OUTSIDE RECORDS SUMMARY | 2024-12-12 14:54 | XMS_ITS | Encounter Summary ---
Author Organization [employer] Address [address] [place] [address] 7t [place] [address] Care Team Providers Care Candle Making Supervisor Name Role Phone Violeta Boo MD Primary Care Provide r Encounter Details Date Type Department Care Team ([facility] Contact Info) Description 03/22/2023 Orders Only [facility] MED & PEDS [address] [place], [place] [phone] Brittany Epps LPN Social History Tobacco Use Types Packs/Day Years Used Date Smoking Tobacco: Never Smokeless Tobacco: Never Alcohol Use Standard Drinks/Week Comments Never 0 (1 standard drink = 0.6 oz pur e alcohol) Depression Answer Date Recorded Patient Health Questionnaire-2 Score 0 03/08/2023 Comments Unknown Sex and Gender Information Value Date Recorded Sex Assigned at Female 09/13/2022 10:22 AM EDT Legal Sex Female 10:22 AM EDT Gender Identity Female 09/13/2022 10:22 AM EDT Sexual Orientation Choose not to disclose 2021 10:22 AM EDT COVID-19 Exposure Response Date Recorded In the last 10 days, have yo u been in contact with someone who was confirmed or suspected to have Coronavirus/COVID-19? No / Unsure 03/08/2023 12:55 PM EDT documented as of this encounter Plan of Treatment Upcoming Encounters Date Type Department Care Team (Late Contact Info) Description 01/25/2025 9:00 AM EDT Office Visit [facility] OPTOMETRY [address] [place] [address] Caden, Angella, OD [address] [place] [address] documented as of this encounter Visit Diagnoses Not on filedocumented in this encounter Care Teams Candle Making Supervisor Relationship Specialty Start Date End Date Violeta Boo MD [address] [place], [place] [phone] PCP - General Family Medicine 05/21/22 documented as of this encounter
--- OUTSIDE RECORDS SUMMARY | 2024-12-12 14:54 | XMS_ITS | Encounter Summary ---
Author Organization [employer] Address [address] [facility] 7t [place] [address] Care Team Providers Care Lavender Farm Worker Name Role Phone Violeta Boo MD Primary Care Provide r Encounter Details Date Type Department Care Team (Late st Contact Info) Description 07/20/2024 Telephone [facility] OPTOMETRY [address] [place] [address] Angella Negrete, OD [address] [place] [address] Social History Tobacco Use Types Packs/Day Years Used Date Smoking Tobacco: Never Passive Smoke Exposure: Never Smokeless Tobacco: Never Alcohol Use Standard Drinks/Week Comments Never 0 (1 standard drink = 0.6 oz pur e alcohol) Housing Stability Answer Date Recorded What is [...] encounter Miscellaneous Notes * Telephone Encounter - Sola Perez - 07/20/2024 3:24 PM EDT Called the Patient POWERHOUSE HELPER Gabytana Sneed, to inform her at the request of Dr. Negrete, OD. That the Patient Violeta Monterroso has to stop all eye drops until she has her follow up appointment with on @ 1:00pm. Eye Drops Brimonidime, 0.2% Ophthalmic Solution. Latanoprost 0.5% Ophthalmic Solution. documented in this encounter Plan of Treatment Upcoming Encounters Date Type Department Care Team (Late st Contact Info) Description 01/25/2025 9:00 AM EDT Office Visit [facility] OPTOMETRY [address] [place] [address] Angella Negrete, OD [address] [place] [address] documented as of this encounter Visit Diagnoses Not on filedocumented in this encounter Care Teams Lavender Farm Worker Relationship Specialty Start Date End Date Violeta Boo MD [address] [place] [address] PCP - General Family Medicine 05/21/22 documented as of this encounter
--- OUTSIDE RECORDS SUMMARY | 2024-12-12 14:54 | XMS_ITS | Encounter Summary ---
Author Organization [employer] Address [address] [facility] 7t [place] [address] Care Team Providers Care Supply Chain Director Name Role Phone Violeta Boo MD Primary Care Provide r Encounter Details Date Type Department Care Team (Late Contact Info) Description 04/26/2023 Orders Only [facility] MED & PEDS [address] [place], [place] [phone] Brittany Epps LPN Social History Tobacco Use [...] Description 01/25/2025 9:00 AM EDT Office Visit [facility] OPTOMETRY [address] [place], [place] [phone] Caden, Angella, OD [address] [place], [place] [phone] documented as of this encounter Procedures Procedure Name Priority Date/Time Associated Diagnosis Comments XR LUMBAR SPINE 2-3 VIEWS Routine 05/05/2023 12:38 PM EDT documented in this encounter Results * XR Lumbar Spine 2-3 Views (05/05/2023 12:38 PM EDT) Anatomical Region Laterality Modality Spine, L-spine Radiographic Rena ging 05/05/2023 12:3 8 PM EDT Narrative 05/17/2023 7:08 PM EDT ? [facility] ?[address] ?[place] [address] ?XRay Report ? Signed ? Patient: Violeta Alvarenga V ?MR#: [id number] ?? [id number] ? : 1950 ?Acct:[id number] ? Age/Sex: 72 / F ?ADM Date: 05/05/23 ? Loc: HO.XRAY ? Attending Dr: Violeta Pascual MD ? Ordering Physician: Violeta Boo MD ?? Date of Service: 05/05/23 ?? Procedure(s): XR lumbar spine 2-3V ?? Accession Number(s): [id number] ? cc: Violeta Boo MD ? EXAMINATION: ?? XR LUMBOSACRAL SPINE ? CLINICAL INFORMATION: ?? Pain ? COMPARISON: ?? Previous x-ray most recent March 2019 ? TECHNIQUE: ?? Three views of the lumbosacral spine. ? FINDINGS: ?? There is curvature of the lower lumbar spine to the left. There is mild ?? 2 mm anterior subluxation of L4 with respect to L5. Bone alignment is ?? otherwise normal. No fracture or dislocation. Multilevel degenerative ?? disc disease and spondylosis from L1 - L2 to L4-L5. Lower lumbar spine ?? facet arthritis. Atherosclerotic disease. ? XR/XR lumbar spine 2-3V ?? IMPRESSION: ?? Multilevel degenerative changes. Mild curvature to the left. ? Dictated By: ?Amanda Hernandez MD ? Signed By: ?<Electronically signed by Amanda Hernandez MD in OV> ? 05/17/231904 ? DD/ 1238 ? TD/TT: ? Datastage Architect: SUJ ? Procedure Note Shireen Parsons - 05/17/2023 [facility] [address] [place] [address] XRay Report Signed Patient: Violeta Alvarenga VMR#: [id number] : 2Acct:[id number] Age/Sex: 72 / FADM Date: 05/05/23 Loc: HO.XRAMARILYS Attending Dr: Violeta Pascual MD Ordering Physician: Violeta Boo MD Date of Service: 05/05/23 Procedure(s): XR lumbar spine 2-3V Accession Number(s): [id number] cc: Violeta Boo MD EXAMINATION: XR LUMBOSACRAL SPINE CLINICAL INFORMATION: Pain COMPARISON: Previous x-ray most recent March 2019 TECHNIQUE: Three views of the lumbosacral spine. FINDINGS: There is curvature of the lower lumbar spine to the left. There is mild 2 mm anterior subluxation of L4 with respect to L5. Bone alignment is otherwise normal. No fracture or dislocation. Multilevel degenerative disc disease and spondylosis from L1 - L2 to L4-L5. Lower lumbar spine facet arthritis. Atherosclerotic disease. XR/XR lumbar spine 2-3V IMPRESSION: Multilevel degenerative changes. Mild curvature to the left. Dictated By: Amanda Hernandez MD Signed By: <Electronically signed by Amanda Hernandez MD in OV> 05/17/23 1905 DD/ 1238 TD/TT: Datastage Architect: SANA [facility] External Provider IMG XR PROCEDURES Edited Result - Final documented in this encounter Visit Diagnoses Not on filedocumented in this encounter Care Teams Supply Chain Director Relationship Specialty Start Date End Date Violeta Boo MD [address] [place] [phone] PCP - General Family Medicine 05/21/22 documented as of this encounter
--- OUTSIDE RECORDS SUMMARY | 2024-12-12 14:55 | XMS_ITS | Encounter Summary ---
Author Organization [facility], Address [address] [place] [address] Phone Care Team Providers Care Precast Worker Name Role Phone Violeta Boo MD Primary Care Provide r Encounter Details Date Type Department Care Team (Late st Contact Info) Description 05/05/2022 Documentation Only [facility] [address] [place] [address] Shailesh Vallejo MD [address] [place] [address] [place] [address] Social History Tobacco Use Types [...] Visit [facility] [address] [place] [address] Shailesh Vallejo MD [address] [place] [address] [place] [address] documented as of this encounter Visit Diagnoses Not on filedocumented in this encounter Care Teams Precast Worker Relationship Specialty Start Date End Date Violeta Boo MD [address] [place] [phone] PCP - General Internal Medicine 03/21/23 documented as of this encounter
--- OUTSIDE RECORDS SUMMARY | 2024-12-12 14:55 | XMS_ITS | Encounter Summary ---
Author Organization [facility], Address [address] [place] [address] Phone Care Team Providers Care Shell Trim Tool Setter Name Role Phone Violeta Boo MD Primary Care Provide r Encounter Details Date Type Department Care Team (Late st Contact Info) Description 10/22/2022 Documentation Only [facility] [address] [place] [address] Jazmin Powell PA [address] [place] [address] [place] [address] Social History Tobacco Use Types Packs/Day Years [...] Visit [facility] [address] [place] [address] Shailesh Vallejo MD [address] [place] [address] [place] [address] documented as of this encounter Visit Diagnoses Not on filedocumented in this encounter Care Teams Shell Trim Tool Setter Relationship Specialty Start Date End Date Violeta Boo MD [address] [place] [phone] PCP - General Internal Medicine 03/21/23 documented as of this encounter
--- OUTSIDE RECORDS SUMMARY | 2024-12-12 14:55 | XMS_ITS | Encounter Summary ---
Author Organization [employer] [facility] Address [address] [place] [address] 7 [place] [address] Care Team Providers Care Line Department Supervisor Name Role Phone Violeta Boo MD Primary Care Provide r Encounter Details Date Type Department Care Team (Late Contact Info) Description 08/03/2023 Orders Only [facility] MEDICINE [address] [place] [address] Provider, MD Libra Social History Tobacco Use Types Packs/Day Years [...] 9:00 AM EDT Office Visit [facility] OPTOMETRY [address] [place] [address] Angella Negrete, OD [address] [place], [place] [phone] documented as of this encounter Procedures Procedure Name Priority Date/Time Associated Diagnosis Comments HM COLONOSCOPY Routine 06/11/2022 documented in this encounter Results * Hm Colonoscopy (06/11/2022) us Historical Provider HEALTH MAINTENANCE Final Result documented in this encounter Visit Diagnoses Not on filedocumented in this encounter Care Teams Line Department Supervisor Relationship Specialty Start Date End Date Violeta Boo MD 230 [place] [address] PCP - General Family Medicine 05/21/22 documented as of this encounter
--- OUTSIDE RECORDS SUMMARY | 2024-12-12 14:55 | XMS_ITS | Encounter Summary ---
Author Organization [employer] Address [address] [place] [address] 7t [place] [address] Care Team Providers Care News Videographer Name Role Phone Violeta Boo MD Primary Care Provide r Encounter Details Date Type Department Care Team (Latest Contact Info) Description 05/27/2022 Abstract [facility] CONVERSIONS Dental, Provider, DDS Social History Tobacco Use Types Packs/Day Years [...] Description 01/25/2025 9:00 AM EDT Office Visit [facility] OPTOMETRY [address] [place] [address] Caden, Angella, OD [address] [place] [address] documented as of this encounter Visit Diagnoses Not on filedocumented in this encounter Care Teams News Videographer Relationship Specialty Start Date End Date Violeta Boo MD [address] [place] [address] PCP - General Family Medicine 05/21/22 documented as of this encounter
--- OUTSIDE RECORDS SUMMARY | 2024-12-12 14:55 | XMS_ITS | Encounter Summary ---
Author Organization [employer] Address [address] [facility] 7t [place] [address] Care Team Providers Care Feature Writer Name Role Phone Violeta Boo MD Primary Care Provide r Reason for Visit * Reason Onset Date Comments Referral 12/08/2022 Encounter Details Date Type Department Care Team ([facility] st Contact Info) Description 12/08/2022 Telephone [facility] MEDICINE [address] [place] [address] Violeta Boo MD [address] [place] [address] Referral Social History Tobacco Use Types Packs/Day [...] * Telephone Encounter - Shay Navarro - 12/08/2022 2:55 PM EST Rufino Pagan with [facility] requesting a new referral for colorectal Surgery at [address] [place] [address] [place] [address]. Ej stated that a provider from their got in contact With Dr. Berkowitz, and Dr. Berkowitz advised provider that it okay for pt to receive a referral. They are now requesting a new referral from PCP, in order for pt to be ssen. If any question please contact bill at [phone] documented in this encounter Plan of Treatment Upcoming Encounters Date Type Department Care Team (Late st Contact Info) Description 01/25/2025 9:00 AM EDT Office Visit [facility] OPTOMETRY [address] [place], [place] [phone] Angella Negrete, OD [address] [place] [address] documented as of this encounter Visit Diagnoses Not on filedocumented in this encounter Care Teams Feature Writer Relationship Specialty Start Date End Date Violeta Boo MD [address] [place], [place] [phone] PCP - General Family Medicine 05/21/22 documented as of this encounter
--- OUTSIDE RECORDS SUMMARY | 2024-12-12 14:55 | XMS_ITS | Encounter Summary ---
Author Organization [employer] Address [address] [facility] 7 [place] [address] Care Team Providers Care Master Ocean Yacht Name Role Phone Violeta Boo MD Primary Care Provide r Reason for Visit * Reason Onset Date Comments Appointment Request 10/25/2023 Encounter Details Date Type Department Care Team ([facility] Contact Info) Description 10/25/2023 Telephone [facility] MEDICINE [address] [place] [address] Violeta Boo MD [address] [place], [place] [phone] Appointment Request Social History Tobacco Use Types [...] encounter Miscellaneous Notes * Telephone Encounter - Wily Tubbs - 10/25/2023 9:04 AM EST Tc from pt requesting to r/s OV appt with LEOBARDO Simmons scheduled for 10/25/23 , appt was a no show. Please contact at [phone] [place] documented in this encounter Plan of Treatment Upcoming Encounters Date Type Department Care Team (Late st Contact Info) Description 01/25/2025 9:00 AM EDT Office Visit [facility] OPTOMETRY [address] [place] [address] Caden, Angella, OD [address] [place] [address] documented as of this encounter Visit Diagnoses Not on filedocumented in this encounter Care Teams Master Ocean Yacht Relationship Specialty Start Date End Date Violeta Boo MD [address] [place] [address] PCP - General Family Medicine 05/21/22 documented as of this encounter
--- OUTSIDE RECORDS SUMMARY | 2024-12-12 14:55 | XMS_ITS ---
Author Name Radha Ayala NP Address [address] [place] [address] Phone [phone] [facility] Care Team Providers Care Mental Health Director Name Role Phone Radha Ayala Unavailable [phone] Unavailable Unavailable Unavailable Unavailable Unavailable Unavailable Cristo Garcia Unavailable [phone] Unavailable Unavailable [phone] Gideon Frost Unavailable [phone] Unavailable Unavailable Unavailable Unavailable Unavailable Unavailable Unavailable Unavailable [phone] Unavailable Unavailable Unavailable WALTER ROBERT Unavailable [phone] Nirav Anthony Unavailable [phone] Unavailable Unavailable [phone] Unavailable Unavailable [phone] Reason for Referral Not Available Allergies, adverse reactions, alerts No known allergies History of medication use Medication Class Instructions Start Date End Date Cetirizine 10 mg Tab TAKE 1 TABLET BY MO UT ONCE 2 HOURS BEFORE EXAM WITH METHYLPREDNISOLONE 2022-10-28 2023-04-07 methylPREDNISolone 32 mg Tab TAKE 1 TABL ET BY MOUTH 12 HOURS BEFORE EXAM AND TAKE 1 TABLET 2 HOURS BEFORE EXAM 2022-10-28 2023-04-07 Sertraline 50 mg Tab TAKE 1 TABLET BY MO UTH EVERY MORNING WITH 100 MG TABLET 2022-08-25 No Data Available Acetaminophen Extra Strength 500 mg Tab TAKE 2 TABLETS BY MOUTH EVERY 8 HOURS NEEDED 2022-08-27 No Data Available Albuterol Sulfate (2.5 mg/3ML) 0.083% Nebulization Solution INHALE 1 AMPULE USING A NEBULIZER THREE TIMES DAILY 2022-05-05 No Data Available Fexofenadine 180 mg Tab TAKE 1 TABLET BY MOUTH EVERY MORNING 2022-03-10 No Data Available Atorvastatin Calcium 80 mg Tab TAKE 1 TABLET BY MOUTH EVERY MORNING 2022-09-02 No Data Available Brimonidine Tartrate 0.2 % Solution INSTILL 1 DROP INTO THE AFFECTED EYE(S) THREE TIMES DAILY DIRECTED 2022-05-21 2024-05-11 calcium carbonate 600 mg-vitamin D3 10 mcg (400 unit) tablet TAKE 1 TABLET BY MOUTH TWICE DAILY IN THE MORNING AND IN THE EVENING 2022-03-10 No Data Available Diclofenac Sodium 1 % Gel APPLY TOPICALL Y FOUR TIMES DAILY TO HECTOR RODILLA,TOBILLO Y PIE, PARA EL PIE APLICA EN LA PLANTA DEL PIE,DEDOS Y PARTE DE ARRIBA DEL PIE 2022-08-24 No Data Available Estradiol 0.1 mg/GM Crm INSERT 1 GRAM VA GINALLY TWO TIMES PER WEEK 2022-08-31 2024-05-11 FeroSul 325 (65 Fe) MG Tab TAKE 1 TABLET BY MOUTH EVERY MORNING 2022-03-10 No Data Available Fluticasone-Salmeterol 250-50 MCG/ACT Aerosol Powder Breath Activated INHALE 1 PUFF BY MOUTH TWICE DAILY 2022-05-05 No Data Available Fluticasone Propionate 50 MCG/ACT Suspension INHALE 2 SPRAYS IN EACH NOSTRIL ONCE DAILY 2022-08-27 No Data Available Latanoprost 0.005 % Solution PLACE 1 DION P IN THE AFFECTED EYE (s) EVERY EVENING 2022-03-10 No Data Available Losartan Potassium 100 mg Tab TAKE 1 TABLET BY MOUTH EVERY MORNING 2022-10-06 No Data Available MELATONIN 1 MG TABLET TAKE 1 TABLET BY M OUTH DAILY AT BEDTIME NEEDED for SLEEP 2022-08-25 No Data Available Metoprolol Succinate ER 50 mg Tab ER 24hr TAKE 1 TABLET BY MOUTH EVERY MORNING 2022-03-10 No Data Available Montelukast Sodium 10 mg Tab TAKE 1 TABL ET BY MOUTH EVERY EVENING 2022-03-10 No Data Available OLANZapine 15 mg Tab TAKE 1 TABLET BY MO UTH AT BEDTIME 2022-08-25 No Data Available OneTouch Ultra Strip TEST BLOOD SUGAR ONCE DAILY 11-04 No Data Available Pantoprazole Sodium 40 mg Tab delayed rel TAKE 1 TABLET BY MOUTH EVERY MORNING 2022-03-10 No Data Available Gabapentin 300 mg Cap TAKE 1 CAPSULE BY MOUTH TWICE DAILY IN THE MORNING AND IN THE EVENING 2022-10-29 No Data Available PEG 3350-KCl-Na Bicarb-NaCl 420 GM Solution MIX AND DRINK 240 ML EVERY 10 MINUTES DIRECTED FOR COLONOSCOPY 2022-11-01 2023-04-07 Colchicine 0.6 mg Tab TAKE 1 TABLET BY M OUTH EVERY OTHER DAY IN THE MORNING 2022-09-21 No Data Available Hydroxychloroquine Sulfate 200 mg Tab TAKE 1 TABLET BY MOUTH TWICE DAILY IN THE MORNING AND IN THE EVENING 2022-09-21 No Data Available Allopurinol 300 mg Tab TAKE 1 TABLET BY MOUTH EVERY MORNING 2022-11-16 No Data Available Folic Acid 1 mg Tab TAKE 1 TABLET BY FRANKLIN TH EVERY MORNING 2022-11-16 No Data Available Methotrexate Sodium 2.5 mg Tab TAKE 6 TABLETS BY MOUTH ONCE WEEKLY ON Tuesday2022-11-16 2023-04-07 Medbox Status USE DIRECTED 2022-10-29 No Data Lena ilable predniSONE 5 mg Tab TAKE 3 TABLETS BY MO UTH ONCE DAILY FOR 5 DAYS, 2 TABLETS ONCE DAILY FOR 5 DAYS, THEN 1 TABLET ONCE DAILY FOR 5 DAYS 2022-11-17 2023-04-07 Chlorthalidone 25 mg Tab TAKE 1 TABLET B Y MOUTH EVERY MORNING 2022-09-30 No Data Available Fluocinolone Acetonide Body 0.01 % Oil APPLY TOPICALLY TO AFFECTED AREA(S) EVERY MORNING 2022-12-16 No Data Available Kccymwlg-Phestdlli-VM 3.5-70961-[address] 3 TO 4 DROPS INTO THE AFFECTED EAR(S) FOUR TIMES DAILY FOR 10 DAYS 2022-12-16 No Data Available Triamcinolone Acetonide 0.1 % Crm APPLY topto AFFECTED AREA(S) TWICE DAILY NEEDED 2022-12-16 No Data Available SM Anti-Diarrheal 2 mg Tab TAKE 1 TO 2 T ABLETS BY MOUTH FOUR TIMES DAILY NEEDED FOR DIARRHEA 2023-03-08 2023-04-07 Simethicone Ultra Strength 180 mg Cap TAKE 1 CAPSULE BY MOUTH EVERY 8 HOURS WITH MEALS NEEDED FOR GAS 2023-03-08 No Data Available Sertraline 100 mg Tab take 1 tablet in t he afternoon (and 50 mg in the morning) every day 2023-04-07 No Data Available Glucometer w/Device Kit check blood gluc ose level twice daily 2023-08-10 No Data Available Doxepin 25 mg Cap TAKE 1 CAPSULE BY MO UTH AT BEDTIME 2023-05-20 No Data Available Hydrocortisone (Perianal) 2.5 % Crm INSERT RECTALLY DIRECTED TWICE DAILY 2024-03-01 No Data Available Permethrin 5 % Crm APPLY BY TOPICAL ROU TE. THOROUGHLY MASSAGE INTO SKIN FROM HEAD TO SOLES OF FEET ONCE. LEAVE ON FOR 8 TO 14 HOURS, THEN REMOVE BY THOROUGH WASHING 2024-03-01 No Data Available Ozempic (0.25 or 0.5 mg/DOSE) 2 mg/3ML Solution Pen-injector Subcutaneous Inject 0.5 mg once a week 2024-05-11 No Data Available Glucometer w/Device Kit - glucometer, lancets and strips Check sugars twice a day 2024-05-11 No Data Availab le [employer] Verio Flex System w/Device Kit USE DIRECTED TO TEST BLOOD SUGAR TWICE DAILY 2024-05-11 No Data Available Ezetimibe 10 mg Tab TAKE 1 TABLET BY FRANKLIN TH EVERY MORNING 2024-04-27 No Data Available Clotrimazole 1 % Crm APPLY TOPICALLY TO SKIN AND TOENAILS ONCE DAILY FOR 12 WEEKS 2024-08-07 No Data Available Problem List Problem Status Onset Date Resolved Date Hemorrhoid Active 2023-04-07 N/A Incontinent of feces Active 2023-04-07 N/A Hx of abdominal surgery Active 2023-04-07 N/A Seborrheic dermatitis Active 2023-04-07 N/A Decreased hearing of left ear,associated w tinnitus Ac tive 2023-04-07 N/A Schizophrenia Active 2023-04-12 N/A 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;Peripheral vascular disease, unspecified Active 2023-04-12 N/A Chronic gouty arthritis;Generalized osteoarthritis Act rossy 2023-04-07 N/A Chronic diarrhea Active 2023-04-07 N/A Unspecified atherosclerosis of [place] arteries of extremities, bilateral legs Active 2023-04-13 N/A Chronic obstructive pulmonary disease, unspecified Act rossy 2023-04-13 N/A Hemorrhoids Active 2023-08-10 N/A Onychomycosis Active 2023-08-21 N/A Chronic bilateral low back p ain with bilateral sciatica;Bulging lumbar disc Active 2023-04-07 N/A Chronic back pain Active 2023-10-21 N/A At risk for cancerAt risk for colon cancer Active 2023-10-21 N/A Other problems related to [facility] facilities and other health care Active 2024-01-19 N/A Other problems related to wa dical facilities and other health care Active 2024-05-12 N/A Frequent falls Active 2023-04-07 N/A Class 3 severe obesity with serious comorbidity and body mass index (BMI) of 50.0 to 59.9 in adult Active 2023-04-07 N/A Rheumatoid arthritis without rheumatoid factor, multiple sitesSacroiliitis, not elsewhere classifiedImmunodeficiency due to conditions classified elsewhere Active 2023-04-12 N/A Type 2 diabetes mellitus wit h stage 3b chronic kidney disease Active 2023-04-07 N/A Encounters Encounters Type Facility Date of Service Diagnosis/Co mplaint New patient,40-59min; chronic exacerbation, 2 stable chronic or 1 acute illness add add modifier 95 for video (do not use for phone, instead use [id number]) [facility] ([place] [place]23 Noninfective gastroenteritis and colitis, unspecifiedRepeated fallsUnspecified hearing loss, left earTinnitus, left earUnspecified hemorrhoidsFull incontinence of fecesMorbid (severe) obesity due to excess caloriesOther specified postprocedural statesPrediabetesChronic kidney disease, stage 3bLumbago with sciatica, left sideLumbago with sciatica, right sideOther chronic painOther intervertebral disc degeneration, lumbar regionSeborrheic dermatitis, unspecifiedIdiopathic chronic gout, unspecified site, without tophus (tophi)Polyosteoarthritis, unspecifiedSchizophrenia, unspecifiedRheumatoid arthritis without rheumatoid factor, multiple sitesSacroiliitis, not elsewhere classifiedAthscl heart disease of [place] cor art w unsp ang pctrsPeripheral vascular disease, unspecified New patient,40-59min; chronic exacerbation, 2 stable chronic or 1 acute illness add add modifier 95 for video (do not use for phone, instead use [id number]) [facility] ([place]) 04/07/2023 New patient,40-59min; chronic exacerbation, 2 stable chronic or 1 acute illness add add modifier 95 for video (do not use for phone, instead use [id number]) [facility] ([place]) 04/07/2023 New patient,40-59min; chronic exacerbation, 2 stable chronic or 1 acute illness add add modifier 95 for video (do not use for phone, instead use [id number]) [facility] ([place]) 04/07/2023 New patient,40-59min; chronic exacerbation, 2 stable chronic or 1 acute illness add add modifier 95 for video (do not use for phone, instead use [id number]) [facility] ([place] 04/07/2023 New patient,40-59min; chronic exacerbation, 2 stable chronic or 1 acute illness add add modifier 95 for video (do not use for phone, instead use [id number]) [facility] ([place] 04[place]07/2023 New patient,40-59min; chronic exacerbation, 2 stable chronic or 1 acute illness add add modifier 95 for video (do not use for phone, instead use [id number]) [facility] ([place] 04[place]07/[place] New patient,40-59min; chronic exacerbation, 2 stable chronic or 1 acute illness add add modifier 95 for video (do not use for phone, instead use [id number]) [facility] ([place] 04/07/2023 New patient,40-59min; chronic exacerbation, 2 stable chronic or 1 acute illness add add modifier 95 for video (do not use for phone, instead use 84325-82) [facility] ([place] 04/07/2023 Unlisted special service; to be used for medical record reviews and reporting CPTII codes (1111F, etc) [facility] ([place]) 07/01/2023 Other specified counseling Unlisted special service; to be used for medical record reviews and reporting CPTII codes (1111F, etc) [facility] ([place] 07/01/2023 Unlisted special service; to be used for medical record reviews and reporting CPTII codes (1111F, etc) [facility] ([place] 07/01/2023 No Data Available [facility] ([place] 08/10/2023 Body mass index (BMI) 45.0-4 9.9, adultPrediabetesMorbid (severe) obesity due to excess caloriesTinea unguiumLumbago with sciatica, left sideLumbago with sciatica, right sideOther chronic painOther intervertebral disc degeneration, lumbar region No Data Available [facility] ([place] 08/10/2023 No Data Available [facility] [place] 08/10/2023 No Data Available [facility] ([place] 10/21/2023 Dorsalgia, unspecifiedOther chronic painMorbid (severe) obesity due to excess caloriesOther specified personal risk factors, not elsewhere classified No Data Available [facility] ([place] 10/21/2023 Estab. patient 30-39min; chronic exacerbation, 2 stable chronic or 1 acute illness add add modifier 95 for video, (do not use for phone, instead use [id number]) [facility] ([place] 05/11/2024 Type 2 diabetes mellitus wit h diabetic chronic kidney diseaseChronic kidney disease, stage 3bRepeated fallsUnspecified hearing loss, left earTinnitus, left earUnspecified hemorrhoidsOther specified postprocedural statesLumbago with sciatica, left sideLumbago with sciatica, right sideOther chronic painOther intervertebral disc degeneration, lumbar regionIdiopathic chronic gout, unspecified site, without tophus (tophi)Polyosteoarthritis, unspecifiedSchizophrenia, unspecifiedAthscl heart disease of [place] cor art w unsp ang pctrsType 2 diabetes w diabetic peripheral angiopath w/o gangreneUnsp athscl [place] arteries of extremities, bilateral legsChronic obstructive pulmonary disease, unspecifiedOther problems related to medical facilities and other health careTinea unguiumDorsalgia, unspecifiedOther specified personal risk factors, not elsewhere classifiedMorbid (severe) obesity due to excess caloriesBody mass index (bmi) 50-59.9 , adultImmunodeficiency due to conditions classified elsewhereRheumatoid arthritis without rheumatoid factor, multiple sitesSacroiliitis, not elsewhere classified Estab. patient 30-39min; chronic exacerbation, 2 stable chronic or 1 acute illness add add modifier 95 for video, (do not use for phone, instead use [id number]) [facility] ([place] 05[place]/20[place] Estab. patient 30-39min; chronic exacerbation, 2 stable chronic or 1 acute illness add add modifier 95 for video, (do not use for phone, instead use 21778-72) [facility] ([place] 05/11/20[place] Estab. patient 30-39min; chronic exacerbation, 2 stable chronic or 1 acute illness add add modifier 95 for video, (do not use for phone, instead use [id number]) [facility] ([place] 05/11/2024 Estab. patient 30-39min; chronic exacerbation, 2 stable chronic or 1 acute illness add add modifier 95 for video, (do not use for phone, instead use [id number]) [facility] ([place] 05/11/20[place] Estab. patient 30-39min; chronic exacerbation, 2 stable chronic or 1 acute illness add add modifier 95 for video, (do not use for phone, instead use 35848-50) [facility] ([place] 05[place]/20[place] Estab. patient 30-39min; chronic exacerbation, 2 stable chronic or 1 acute illness add add modifier 95 for video, (do not use for phone, instead use 30711-56) [facility] ([place] 05/11/2024 No Data Available [facility] [place] 05[place]/2024 Type 2 diabetes mellitus wit h diabetic chronic kidney diseaseChronic kidney disease, stage 3b No Data Available [facility] ([place] 05/14/2024 No Data Available [facility] [place] 06[place]20/2024 Type 2 diabetes mellitus wit h diabetic chronic kidney diseaseChronic kidney disease, stage 3b No Data Available [facility] ([place] 06/20/2024 Unlisted special service; to be used for medical record reviews and reporting CPTII codes (1111F, etc) [facility] ([place] 09/04/2024 Other specified counseling Unlisted special service; to be used for medical record reviews and reporting CPTII codes (1111F, etc) [facility] ([place] 09/04/2024 Unlisted special service; to be used for medical record reviews and reporting CPTII codes (1111F, etc) [facility] ([place]) 09/04/2024 Vital Signs Date of Collection Vitals 2023-04-07 13:01:17 Height - 160.02 cmWe ight - 126.1 kgBody Mass Index (BMI) - 49.25 kg/m2 2023-08-10 10:24:04 Height - 160.02 cmWe ight - 124.29 kgBody Mass Index (BMI) - 48.54 kg/m2 2024-05-11 10:40:24 Height - 160.02 cmWe ight - 133.36 kgBody Mass Index (BMI) - 52.08 kg/m2BP Diastolic - 90.0 mm[Hg]BP Systolic - 130.0 mm[Hg] Social History Sex Female History of Procedures Procedures Service Procedure code Service date Servicing provider Phone# New patient,40-59min; chronic exacerbation, 2 stable chronic or 1 acute illness add add modifier 95 for video (do not use for phone, instead use [id number]) 50536 2023-04-07 No Data Available No Data Availa ble Medication List Documented (1159F) 1159F 2023-04-07 No Data Available No Data Lena ilable Medication Review by prescribing provider or pharmacist documented (1160F) 1160F 2023-04-07 No Data Available No Data Lena ilable Advance Care Directive Advance care planning discussion documented in the medical record (1158F) 1158F 2023-04-07 No Data Available No Data Availa ble BMI obtained (3008F) 3008F 2023-04-07 No Data Availab le No Data Available Advance care planning discussed and documented in the medical record ? beneficiary/patient did not wish to or was unable to provide an advance care plan or name a surrogate decision-maker. (1124F) 1124F 2023-04-07 No Data Available No Data Availa ble Most recent A1c (HbA1c) or GMI level <7% (3044F) 3044F 2023-04-07 No Data Available No Data Availa ble Pain Assessment - Pain Documented on a Pain Scale (1125F) 1125F 2023-04-07 No Data Available No Data Lena ilable Functional Status Assessed (1170F) 1170F 2023-04-07 No Data Available No Data Avail able Unlisted special service; to be used for medical record reviews and reporting CPTII codes (1111F, etc) 21914 2023-07-01 No Data Available No Data Availa ble SBP < 130 (3074F) 3074F 2023-07-01 No Data Available No Data Available DBP <80 (3078F) 3078F 2023-07-01 No Data Available No Data Available No Data Available 28483 2023-08-10 No Data Available No Data Available Medication List Documented (1159F) 1159F 2023-08-10 No Data Available No Data Lena ilable BMI obtained (3008F) 3008F 2023-08-10 No Data Availab le No Data Available No Data Available 16938 2023-10-21 No Data Available No Data Available Medication List Documented (1159F) 1159F 2023-10-21 No Data Available No Data Lena ilable Estab. patient 30-39min; chronic exacerbation, 2 stable chronic or 1 acute illness add add modifier 95 for video, (do not use for phone, instead use [id number]) 58893 2024-05-11 No Data Available No Data Availa ble Medication List Documented (1159F) 1159F 2024-05-11 No Data Available No Data Lena ilable Medication Review by prescribing provider or pharmacist documented (1160F) 1160F 2024-05-11 No Data Available No Data Lena ilable Pain Assessment - Pain Documented on a Pain Scale (1125F) 1125F 2024-05-11 No Data Available No Data Lena ilable BMI obtained (3008F) 3008F 2024-05-11 No Data Availab le No Data Available SBP 130-139 (3075F) 3075F 2024-05-11 No Data Availabl e No Data Available DBP >=90 3080F 2024-05-11 No Data Available No Data Available No Data Available [id number] 2024-05-14 No Data Available No Data Available Medication List Documented (1159F) 1159F 2024-05-14 No Data Available No Data Lena ilable No Data Available 28924 2024-06-20 No Data Available No Data Available Medication List Documented (1159F) 1159F 2024-06-20 No Data Available No Data Lena ilable Unlisted special service; to be used for medical record reviews and reporting CPTII codes (1111F, etc) 41997 2024-09-04 No Data Available No Data Availa ble SBP >= 140 3077F 2024-09-04 No Data Available No Data Available DBP >=90 3080F 2024-09-04 No Data Available No Data Available Functional Status Functional Category Effective Dates ADL: Bathing: Needs assistan ceDressing: Needs assistanceEating: IndependentAmbulation: Needs assistanceTransferring: Needs assistanceToileting: Needs assistanceIADL: Medication: Needs AssistanceMeal Prep: Needs AssistanceShopping: Needs AssistanceHousekeeping: Needs AssistanceFalls in last 6 Months: Yes 2023-04-07 Mental Status No Information Assessments Date of Service Assessments 2023-04-07 13:01:17 Chronic diarrheaFreq uent fallsDecreased hearing of left ear,associated w tinnitusHemorrhoidIncontinent of fecesSevere obesity (BMI >= 40)Hx of abdominal surgeryPrediabetesStage 3b chronic kidney disease (CKD)Chronic bilateral low back pain with bilateral sciatica;Bulging lumbar discSeborrheic dermatitisChronic gouty arthritis;Generalized osteoarthritisSchizophreniaRheumatoid arthritis without rheumatoid factor, multiple sitesAtherosclerotic heart disease of [place] coronary artery with unspecified angina pectoris;Peripheral vascular disease, unspecified 2023-08-10 10:24:04 PrediabetesSevere ob esity (BMI >= 40)OnychomycosisChronic bilateral low back pain with bilateral sciatica;Bulging lumbar disc 2023-10-21 11:23:14 Chronic back painSev ere obesity (BMI >= 40)At risk for cancerAt risk for colon cancer 2024-05-11 10:40:24 Frequent fallsDecrea sed hearing of left ear,associated w tinnitusHemorrhoidHx of abdominal surgeryType 2 diabetes mellitus with stage 3b chronic kidney diseaseChronic bilateral low back pain with bilateral sciatica;Bulging lumbar discChronic gouty arthritis;Generalized osteoarthritisSchizophreniaAtherosclerotic heart disease of [place] coronary artery with unspecified angina pectoris;Peripheral vascular disease, unspecifiedUnspecified atherosclerosis of [place] arteries of extremities, bilateral legsChronic obstructive pulmonary disease, unspecifiedOther problems related to medical facilities and other health careHemorrhoidsClass 3 severe obesity with serious comorbidity and body mass index (BMI) of 50.0 to 59.9 in adultRheumatoid arthritis without rheumatoid factor, multiple sitesSacroiliitis, not elsewhere classifiedImmunodeficiency due to conditions classified elsewhereOnychomycosisChronic back painAt risk for cancerAt risk for colon cancerOther problems related to medical facilities and other health care 2024-05-14 15:03:31 Type 2 diabetes christa itus with stage 3b chronic kidney disease 2024-06-20 12:40:31 Type 2 diabetes christa itus with stage 3b chronic kidney disease Plan of Care Date of Service Plans 2023-04-07 13:01:17 Medication Review by prescribing provider or pharmacist documented (1160F)Medication List Documented (1159F)Functional Status Assessed (1170F)Advance Care Directive Advance care planning discussion documented in the medical record (1158F)BMI obtained (3008F)sbdbTelevideo new patient,40-59min; chronic exacerbation, 2 stable chronic or 1 acute illness add modifier 95Advance care planning discussed and documented ? advance care plan or surrogate decision-maker was documented in the medical record. (1123F)Advance care planning discussed and documented in the medical record ? beneficiary/patient did not wish to or was unable to provide an advance care plan or name a surrogate decision-maker. (1124F)Most recent hemoglobin A1c (HbA1c) level <7% (3044F)Pain Assessment - Pain Documented (1125F)Continue to see PCP. 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 Sending PT.Unclear if on any treatmentAllopurinol,ColchicineHad recent flareup but otherwise reports in general in good control.Appears to be high functioning.On Olanzapine, SertralineJust had corticosteroid taper, completed.In conversation w PCP/Rheumo? re treatmetn optionsAtorvastatinExtensive ed re weight lossWill be sending to endo/weight loss clinic 2023-07-01 09:38:02 Unlisted special ser vice; to be used for medical record reviews and reporting CPTII codes (1111F, etc)SBP < 130 (3074F)DBP <80 (3078F) 2023-08-10 10:24:04 Phone (patient, pare nt, or guardian); 5-10 minutes of medical discussion (no modifier 95)Continue to see PCP. Follow-up with [facility] as needed for any acute or disease education needs that may arise 06/06.A1C 5.8 February 2023Not on any medicationDoing well per her reportReferring to endoBMI 49.25send to [place]erral for weight clinic - also endocr for [facility] MASending to podiatry per pt request.Also needs to have toenails cut.Falls frequently.Ed re caution, using DMEs.Will FU re pain and walking. Sending PT.UPDATE 08/10/2023Has not gotten physical therapy. Will send again. 2023-10-21 11:23:14 Phone (patient, pare nt, or guardian); 5-10 minutes of medical discussion (no modifier 95)Continue to see PCP. Follow-up with Rosey as needed for any acute or disease education needs that may arise 06/06.Pt reports she has had this pain for years.Education - pt is 100+ lbs overweight, the best way to feel better is to lose weight; any other solution will be at best temporary.[facility], could not find a place in her area that had available staff.Pt to call [facility] and get name of PT providers in her area that are covered.Will investigate weight loss clinics.Pt to look for back exercises on YouTube, activity as tolerated.Will FU.BMI 49.25send to weight clinic but not [place]23referral for weight clinic - also endocr for [facility] [place]10/21/2023Have not been able to find clinic that is covered by [facility] in er area. Pt to call [facility] and find list of names of clinics.Will FU.Pt reports her mother of melanoma, various siblings have or have had leukemia and breast, colon, uterine and skin cancers. Her son has colon cancer. Pt wants to take a test to see if she is at higher risk.Education:Different cancers have different screening procedures. Knowing she is at higher risk would do little for her at this point in her life, as it would not change her behavior - she should/is already trying to lose weight, she doesn't smoke, and is screening for colon, breast, and other cancers. that said, for peace of mind this provider will do some research for pt regarding tests. Pt reports that GI has found colon polyps they are having trouble excising. She is under the care of GI and under surveillance and is already managing the situation.Will F/U.Will reassure pt. 2024-05-11 10:40:24 Medication Review by prescribing provider or pharmacist documented (1160F)Medication List Documented (1159F)Functional Status Assessed (1170F)Advance Care Directive Advance care planning discussion documented in the medical record (1158F)BMI obtained (3008F)SBP 130-139 (3075F)DBP >=90Televideo 30-39min; chronic exacerbation, 2 stable chronic or 1 acute illness add modifier 95Advance care planning discussed and documented ? advance care plan or surrogate decision-maker was documented in the medical record. (1123F)Pain Assessment - Pain Documented (1125F)Continue to see PCP. Follow-up with [facility] as needed for any acute or disease education needs that may arise.Trips over herself or feet are not strong enough.Falls almost every day, seven times these past six days.Sending a shower chair?hx of otitis externaSend to ENTCN to assistno constipation - likely related to weightReports had large fibroma in abdomen in 1991 surgically removed.Record does mention DM2 w 3b CKDA1C 5.19 February 2023 m- will look for more recentGFR 35, Creatinine 1.46, Marchatient is unaware, believes her kidneys are fine.Will educate further at FUavoid nephrotoxic medicationsInsists her sugars are good; however, also reports frequent urination. Unclear what became of endo referral. Prescribing zzempic, for DM and for weight loss.Will FU Tuesday.Falls frequently.Ed re caution, using DMEs.Will FU re pain and walking. Sending PT.UPDATE 08/10/2023Has not gotten physical therapy. Will send again.Allopurinol,ColchicineHad recent flareup but otherwise reports in general in good control.Appears to be high functioning.On Olanzapine, SertralineAtorvastatinExtensive ed re weight lossWill be sending to endo/weight loss clinicMD portal notes, I70.203 - Unspecified atherosclerosis of [place] arteries of extremities, bilateral legs continues to take albuterol sulfatePlease call CB ifIncreased SOB,or if patient falls.Pain that radiates to vaginaHas seen PCPhas referral to GI but is going to cancelEd not to cancel, get transportBMI 52.08send to weight clinic but not [place]23referral for weight clinic - [facility] [place]Have not been able to find clinic that is covered by [facility] in er area. Pt to call [facility] and find list of names of clinics.Will FU.4Prescribing Ozempic. Will FU on Tuesday then in 3 weeks.Just had corticosteroid taper, completed.In conversation w PCP/Rheumo? re treatmetn optionsImmunodeficiency due to: RAweakened immune system, encourage hand washing, avoid large crowds, stay up to date on vaccines (annual flu), monitor for and report early any s/s of infectionSending to podiatry per pt request.Also needs to have toenails cut.Pt reports she has had this pain for years.Education - pt is 100+ lbs overweight, the best way to feel better is to lose weight; any other solution will be at best temporary.Tries PT, could not find a place in her area that had available staff.Pt to call [facility] and get name of PT providers in her area that are covered.Will investigate weight loss clinics.Pt to look for back exercises on YouTube, activity as tolerated.Will FU.Pt reports her mother of melanoma, various siblings have or have had leukemia and breast, colon, uterine and skin cancers. Her son has colon cancer. Pt wants to take a test to see if she is at higher risk.Education:Different cancers have different screening procedures. Knowing she is at higher risk would do little for her at this point in her life, as it would not change her behavior - she should/is already trying to lose weight, she doesn't smoke, and is screening for colon, breast, and other cancers. that said, for peace of mind this provider will do some research for pt regarding tests. Pt reports that GI has found colon polyps they are having trouble excising. She is under the care of GI and under surveillance and is already managing the situation.Will F/U.Will reassure pt.Please call CB ifIncreased SOB,O2 sat <88%Altered Mental State, unusual agitation,BG >300 or <80,BP >160/100 or <100/60 2024-05-14 15:03:31 Phone (patient, pare nt, or guardian); 5-10 minutes of medical discussion (no modifier 95)Continue to see PCP. Follow-up with [facility] as needed for any acute or disease education needs that may arise 06/06.Record does mention DM2 w 3b CKDA1C 5.19 February 2023 m- will look for more recentGFR 35, Creatinine 1.46, Marchatient is unaware, believes her kidneys are fine.Will educate further at FUavoid nephrotoxic medicationsInsists her sugars are good; however, also reports frequent urination. Unclear what became of endo referral. Prescribing zzempic, for DM and for weight loss.Will FU Tuesday.4Continues to c/o frequent urination. HAS NOT PICKED UP OZEMPIC NOR HER GLUCOMETER. What's more, hardly remembers details of our conversation of three days ago. Her PODIATRIC SURGEON is supposed to go tonight or tomorrow and bring them tomorrow.Pharmacy to instruct on use of both.Pt also has relatives who can look online for instruction.Call CB 06/06 to learn to use, if necessary.Please check sugars daily, fasting, in the morning. Keep a log.FU later this week or Tuesday. 2024-06-20 12:40:31 Phone (patient, pare nt, or guardian); 5-10 minutes of medical discussion (no modifier 95)Continue to see PCP. Follow-up with [facility] as needed for any acute or disease education needs that may arise 06/06.Record does mention DM2 w 3b CKDA1C 5.19 February 2023 m- will look for more recentGFR 35, Creatinine 1.46, Marchatient is unaware, believes her kidneys are fine.Will educate further at FUavoid nephrotoxic medicationsInsists her sugars are good; however, also reports frequent urination. Unclear what became of endo referral. Prescribing zzempic, for DM and for weight loss.Will FU Tuesday.4Continues to c/o frequent urination. HAS NOT PICKED UP OZEMPIC NOR HER GLUCOMETER. What's more, hardly remembers details of our conversation of three days ago. Her PODIATRIC SURGEON is supposed to go tonight or tomorrow and bring them tomorrow.Pharmacy to instruct on use of both.Pt also has relatives who can look online for instruction.Call CB 06/06 to learn to use, if necessary.Please check sugars daily, fasting, in the morning. Keep a log.FU later this week or Tuesday.06/20/2024Finished first 4 doses of Ozempic. Had some AEs (aversion to food for example) but has improved. Is ready for dose increaseRefilling at the full 0.5 mg dose. She will be traveling to [place] so she is to ask for emergency traveling supply, which won't be much as she will be back mid July.Refilled w instructions to pharmacy.Will FU after mid-july.
--- OUTSIDE RECORDS SUMMARY | 2024-12-12 14:55 | XMS_ITS | Encounter Summary ---
Author Organization [employer] Address [address] [facility] 7 [place] [address] Care Team Providers Care Lime Mixer Name Role Phone Violeta Boo MD Primary Care Provide r Reason for Visit * Reason Onset Date Comments Med Refill 10/25/2024 Encounter Details Date Type Department Care Team ([facility] st Contact Info) Description 10/25/[address] [facility] MEDICINE [address] [place] [address] Violeta Boo MD [address] [place], [place] [phone] Med Refill Social History Tobacco Use Types Packs/Day Years [...] encounter Miscellaneous Notes * Telephone Encounter - Brittany Epps LPN - 10/25/2024 3:31 PM EST Medication not pended unclear if PCP prescribes? Please advise. * Telephone Encounter - Demi Sanchez - 10/25/2024 3:23 PM EST TC from pt requesting medication refill. Medications needing refill : Ozempic, 0.25 or 0.5 MG/DOSE, 2 MG/3ML solution pen-injector To be sent to: [facility] documented in this encounter Plan of Treatment Upcoming Encounters Date Type Department Care Team (Late st Contact Info) Description 01/25/2025 9:00 AM EDT Office Visit [facility] OPTOMETRY [address] [place] [address] Angella Negrete, OD [address] [place] [address] documented as of this encounter Visit Diagnoses Not on filedocumented in this encounter Additional Health Concerns Assessment Noted Time PHQ-9 Depression Total Score: 17 024 11:23 AM EDT documented as of this encounter Care Teams Lime Mixer Relationship Specialty Start Date End Date Violeta Boo MD [address] [place] [phone] PCP - General Family Medicine 05/21/22 documented as of this encounter
--- OUTSIDE RECORDS SUMMARY | 2024-12-12 14:55 | XMS_ITS | Encounter Summary ---
Author Organization [employer] Address [address] [facility] 7t [place] [address] Care Team Providers Care Remelt Pan Tank Operator Name Role Phone Violeta Boo MD Primary Care Provide r Reason for Visit * Reason Onset Date Comments Reasonable Accommodation Request 10/25/2022 I called regarding a reasonable accommodation form, from [employer]. The pt states that she will be getting a scooter, because she is no longer able to use a cane or a walker. She is requesting an apartment with elevator accessibility, because it would be easier for her to get in and out of her apartment. Encounter Details Date Type Department Care Team ([facility] st Contact Info) Description 10/25/2022 Telephone [facility] [address] [place] [address] Maksim [place], [place] Reasonable Accommodation Request (I called regarding a reasonable accommodation form, from [employer]. The pt states that she will be getting a scooter, because she is no longer able to use a cane or a walker. She is requesting an apartment with elevator accessibility, because it would be easier for her to get in and out of her apartment.) Social History Tobacco Use Types Packs/Day Years [...] Description 01/25/2025 9:00 AM EDT Office Visit [facility] OPTOMETRY [address] [place] [address] Angella Negrete, OD [address] [place] [address] documented as of this encounter Visit Diagnoses Not on filedocumented in this encounter Care Teams Remelt Pan Tank Operator Relationship Specialty Start Date End Date Violeta Boo MD [address] [place], [place] [phone] PCP - General Family Medicine 05/21/22 documented as of this encounter
--- OUTSIDE RECORDS SUMMARY | 2024-12-12 14:55 | XMS_ITS | Encounter Summary ---
Author Organization [employer] Address [address] [facility] 7t [place] [address] Care Team Providers Care Sales Manager Prearranged Funerals Name Role Phone Violeta Boo MD Primary Care Provide r Reason for Visit * Reason Onset Date Comments Durable Medical Equipment 10/13/2023 Encounter Details Date Type Department Care Team ([facility] st Contact Info) Description 10/13/2023 Telephone [facility] MEDICINE [address] [place] [address] Violeta Boo MD [address] [place], [place] [phone] Durable Medical Equipment Social History Tobacco Use Types Packs/Day Years Used Date Smoking Tobacco: Never Smokeless Tobacco: Never Alcohol Use Standard Drinks/Week Comments Never 0 (1 standard drink = 0.6 oz pur e alcohol) Housing Stability Answer Date Recorded What is your housing situation today? I have housing today, but I am worried about losing housing in the future 08/29/[address] you li ve. Do you have problems with any of the following? None of the above 08/29/2023 Food Insecurity Answer Date Recorded Within the [...] from getting things needed for daily living? Yes, it has kept me from medical appointments or getting medications. 08/25/2023 Utilities Answer Date Recorded In the past [...] Miscellaneous Notes * Telephone Encounter - Shay Adams Navarro - 10/13/2023 12:59 PM EST Tc from requesting status on scripts for : 2xl Pullups Ensures Flavors Vanilla and [place] Gloves Large Wipes Pt states insurance fax over request. Please contact pt at [phone] Micronesian Speaker documented in this encounter Plan of Treatment Upcoming Encounters Date Type Department Care Team (Late st Contact Info) Description 01/25/2025 9:00 AM EDT Office Visit [facility] OPTOMETRY [address] [place] [address] Caden, Angella, OD [address] [place] [address] documented as of this encounter Visit Diagnoses Not on filedocumented in this encounter Care Teams Sales Manager Prearranged Funerals Relationship Specialty Start Date End Date Violeta Boo MD [address] [place] [address] PCP - General Family Medicine 05/21/22 documented as of this encounter
--- OUTSIDE RECORDS SUMMARY | 2024-12-12 14:55 | XMS_ITS | Encounter Summary ---
Author Organization [facility] Address [address] [place] [address] Phone Care Team Providers Care Trash Collector Supervisor Name Role Phone Violeta Boo MD Primary Care Provide r Encounter Details Date Type Department Care Team (Late st Contact Info) Description 2022 Office Communication [facility] [address] [place] [address] Shailesh Vallejo MD [address] [place] [address] [place] [address] Social History Tobacco Use Types [...] Visit [facility] [address] [place] [address] Shailesh Vallejo MD [address] [place] [address] [place] [address] documented as of this encounter Visit Diagnoses Not on filedocumented in this encounter Care Teams Trash Collector Supervisor Relationship Specialty Start Date End Date Violeta Boo MD [address] [place] [phone] PCP - General Internal Medicine 03/21/23 documented as of this encounter
--- OUTSIDE RECORDS SUMMARY | 2024-12-12 14:55 | XMS_ITS | Encounter Summary ---
Author Organization [facility], Address [address] [place] [address] Phone Care Team Providers Care Slackman Name Role Phone Violeta Boo MD Primary Care Provide r Encounter Details Date Type Department Care Team (Late st Contact Info) Description 03/22/2023 Documentation Only [facility] [address] [place] [address] Jazmin Powell PA [address] [place] [address] [place] [address] Social History Tobacco Use Types Packs/Day Years Used Date Smoking Tobacco: Unknown Comments Unknown Sex and Gender Information Value Date Recorded Sex Assigned at Not on file Legal Sex Female 10:16 AM EST Gender Identity Not on file Sexual Orientation Not on file documented as of this encounter Plan of Treatment Upcoming Encounters Date Type Department Care Team (Late st Contact Info) Description 03/19/2025 1:30 PM EDT Office Visit [facility] [address] [place] [address] Shailesh Vallejo MD [address] [place] [address] [place] [address] documented as of this encounter Visit Diagnoses Not on filedocumented in this encounter Care Teams Slackman Relationship Specialty Start Date End Date Violeta Boo MD [address] [place] [phone] PCP - General Internal Medicine 03/21/23 documented as of this encounter
--- OUTSIDE RECORDS SUMMARY | 2024-12-12 14:55 | XMS_ITS | Encounter Summary ---
Author Organization [employer] Address [address] [facility] 7 [place] [address] Care Team Providers Care Lyft Driver Name Role Phone Violeta Boo MD Primary Care Provide r Reason for Visit * Reason Onset Date Comments Durable Medical Equipment 09/07/2024 Encounter Details Date Type Department Care Team ([facility] st Contact Info) Description 09/07/2024 Telephone [facility] MEDICINE [address] [place] [address] Violeta Boo MD [address] [place] [address] Durable Medical Equipment Social History Tobacco Use [...] * Telephone Encounter - Wily Tubbs - 09/07/2024 1:57 PM EDT Tc from pt requesting a script for a new walker, states current on is broken. Please contact at [phone] Kyrgyz documented in this encounter Plan of Treatment Upcoming Encounters Date Type Department Care Team (Late st Contact Info) Description 01/25/2025 9:00 AM EDT Office Visit [facility] OPTOMETRY [address] [place] [address] Caden, Angella, OD [address] [place] [address] documented as of this encounter Visit Diagnoses Not on filedocumented in this encounter Additional Health Concerns Assessment Noted Time PHQ-9 Depression Total Score: 17 024 11:23 AM EDT documented as of this encounter Care Teams Lyft Driver Relationship Specialty Start Date End Date Violeta Boo MD [address] [place] [address] PCP - General Family Medicine 05/21/22 documented as of this encounter
--- OUTSIDE RECORDS SUMMARY | 2024-12-12 14:55 | XMS_ITS | Encounter Summary ---
Author Organization [facility] [place], Address [address] [place] [address] Phone Care Team Providers Care Cleaning Porter Name Role Phone Violeta Boo MD Primary Care Provide r Encounter Details Date Type Department Care Team (Late st Contact Info) Description 05/05/2022 Documentation Only [facility] [address] [place] [address] Shailesh Vallejo MD [address] [place] [address] [place] [address] Social History Tobacco Use Types [...] Visit [facility] [address] [place] [address] Shailesh Vallejo MD [address] [place] [address] [place] [address] documented as of this encounter Visit Diagnoses Not on filedocumented in this encounter Care Teams Cleaning Porter Relationship Specialty Start Date End Date Violeta Boo MD [address] [place] [phone] PCP - General Internal Medicine 03/21/23 documented as of this encounter
--- OUTSIDE RECORDS SUMMARY | 2024-12-12 14:55 | XMS_ITS | Encounter Summary ---
Author Organization [employer] Address [address] [facility] 7t [place] [address] Care Team Providers Care Liaison Officer Name Role Phone Violeta Boo MD Primary Care Provide r Reason for Visit * Reason Onset Date Comments r/s DERM NEW appt 12/03/2022 Encounter Details Date Type Department Care Team ([facility] st Contact Info) Description 12/03/2022 Telephone [facility] MEDICINE [address] [place] [address] Violeta Boo MD [address] [place], [place] [phone] r/s DERM NEW appt Social History Tobacco Use Types Packs/Day Years Used Date Smoking Tobacco: Never Assessed Depression Answer Date Recorded Patient Health Questionnaire-9 [...] suspected to have Coronavirus/COVID-19? No / Unsure 05/20/2023 10:37 AM EDT documented as of this encounter Miscellaneous Notes * Telephone Encounter - Wily Tubbs - 12/03/2022 8:26 AM EST Tc from pt requesting to r/s DERM NEW appt scheduled for 12/03/22 @ 10am with Dr. Hernandez. Appt hasbeen cancelled. Please contact at [phone] documented in this encounter Plan of Treatment Upcoming Encounters Date Type Department Care Team (Late st Contact Info) Description 01/25/2025 9:00 AM EDT Office Visit [facility] OPTOMETRY [address] [place] [address] Angella Negrete, OD [address] [place] [address] documented as of this encounter Visit Diagnoses Not on filedocumented in this encounter Care Teams Liaison Officer Relationship Specialty Start Date End Date Violeta Boo MD [address] [place] [address] PCP - General Family Medicine 05/21/22 documented as of this encounter
--- OUTSIDE RECORDS SUMMARY | 2024-12-12 14:55 | XMS_ITS | Encounter Summary ---
Author Organization [facility] [place], Address [address] [place] [address] Phone Care Team Providers Care Manager Transition Name Role Phone Violeta Boo MD Primary Care Provide r Encounter Details Date Type Department Care Team (Late st Contact Info) Description 08/27/2024 Documentation Only [facility] [address] [place] [phone] Rowena Knowles [address] [place] [address] Social History Tobacco Use Types Packs/Day Years [...] Visit [facility] [address] [place] [address] Shailesh Vallejo MD [address] [place] [address] [place] [address] documented as of this encounter Visit Diagnoses Not on filedocumented in this encounter Care Teams Manager Transition Relationship Specialty Start Date End Date Violeta Boo MD [address] [place] [phone] PCP - General Internal Medicine 03/21/23 documented as of this encounter
--- OUTSIDE RECORDS SUMMARY | 2024-12-12 14:55 | XMS_ITS | Encounter Summary ---
Author Organization [facility] [place], Address [address] [place] [address] Phone Care Team Providers Care Follow Up Specialist Name Role Phone Violeta Boo MD Primary Care Provide r Encounter Details Date Type Department Care Team (Late st Contact Info) Description 02/13/2024 Documentation Only [facility] [address] [place] [phone] Rowena Knowles [address] [place] [address] Social History Tobacco Use Types [...] Visit [facility] [address] [place] [address] Shailesh Vallejo MD [address] [place] [address] [place] [phone] documented as of this encounter Visit Diagnoses Not on filedocumented in this encounter Care Teams Follow Up Specialist Relationship Specialty Start Date End Date Violeta Boo MD [address] [place] [phone] PCP - General Internal Medicine 03/21/23 documented as of this encounter
--- OUTSIDE RECORDS SUMMARY | 2024-12-12 14:55 | XMS_ITS | Encounter Summary ---
Author Organization [employer] Address [address] [facility] 7t [place] [address] Care Team Providers Care Orthopedic Nurse Name Role Phone Violeta Boo MD Primary Care Provide r Reason for Visit * Reason Onset Date Comments Appt cancelation 03/02/2024 Encounter Details Date Type Department Care Team ([facility] st Contact Info) Description 03/02/2024 Telephone [facility] MEDICINE [address] [place] [address] Violeta Boo MD [address] [place], [place] [phone] Appt cancelation Social History Tobacco Use Types Packs/Day Years [...] encounter Miscellaneous Notes * Telephone Encounter - Shaheen Logan - 03/02/2024 12:02 PM EDT Tc from patient calling to cancel Derm appt on 04/27 due to being referred to outside hospital product specialist documented in this encounter Plan of Treatment Upcoming Encounters Date Type Department Care Team (Late st Contact Info) Description 01/25/2025 9:00 AM EDT Office Visit [facility] OPTOMETRY [address] [place] [address] Angella Negrete, OD [address] [place] [address] documented as of this encounter Visit Diagnoses Not on filedocumented in this encounter Care Teams Orthopedic Nurse Relationship Specialty Start Date End Date Violeta Boo MD [address] [place] [address] PCP - General Family Medicine 05/21/22 documented as of this encounter
--- OUTSIDE RECORDS SUMMARY | 2024-12-12 14:55 | XMS_ITS | Encounter Summary ---
Author Organization [employer] Address [address] [facility] 7t [place] [address] Care Team Providers Care Connection Worker Name Role Phone Violeta Boo MD Primary Care Provide r Reason for Visit * Reason Comments Med Refill Encounter Details Date Type Department Care Team ([facility] st Contact Info) Description 03/22/2024 Refill [facility] MEDICINE [address] [place] [address] Violeta Boo MD 230 [place] [address] Dermatitis Social History Tobacco Use Types Packs/Day Years [...] 9:00 AM EDT Office Visit [facility] OPTOMETRY [address] [place], [place] [phone] Angella Negrete, OD 230 [place] [address] documented as of this encounter Visit Diagnoses Diagnosis Dermatitis Contact dermatitis and other eczema, due to unspecified cause documented in this encounter Care Teams Connection Worker Relationship Specialty Start Date End Date Violeta Boo MD [address] [place] [address] PCP - General Family Medicine 05/21/22 documented as of this encounter
--- OUTSIDE RECORDS SUMMARY | 2024-12-12 14:55 | XMS_ITS | Clinical Summary ---
Author Organization [facility], Address [address] [place] [address] [place] [address] Phone Care Team Providers Care Hog Pusher Name Role Phone Violeta Boo MD Primary Care Provide r Allergies Active Allergy Reactions Criticality Noted Date Comments Aspirin Rash Low 06/03/2020 Iodinated Contrast Media 06/03/2020 Medications amLODIPine (NORVASC) 10 MG tablet Take 10 mg by mouth 1 (one) time each day Active metoprolol succinate XL (TOPROL-XL) 50 MG 24 hr tablet Take 50 mg by mouth 1 (one) time each day Do not crush or chew. Active indomethacin (INDOCIN) 50 MG capsule Take 50 mg by mouth 2 (two) times a day with meals Active ferrous sulfate 325 (65 Fe) MG tablet Take 325 mg by mouth 1 (one) time each day with breakfast Active atorvastatin (LIPITOR) 80 MG tablet Take 80 mg by mouth 1 (one) time each day Active Calcium 600/Vitamin D 600-400 MG-UNIT tablet Take 1 tablet by mouth every morning and evening 0 Active fexofenadine (PAM) 180 MG tablet Take 180 mg by mouth 0 Active gabapentin (NEURONTIN) 800 MG tablet Take 800 mg by mouth 4 times a day 0 Active losartan (COZAAR) 50 MG tablet Take 50 mg by mouth 0 Active montelukast (SINGULAIR) 10 MG tablet 0 Active pantoprazole (PROTONIX) 40 MG EC tablet Take 40 mg by mouth 0 Active potassium chloride (KLOR-CON) 10 MEQ CR tablet Take 10 mEq by mouth 1 (one) time each day with food. 0 Active sertraline (ZOLOFT) 50 MG tablet 0 Active sertraline (ZOLOFT) 100 MG tablet 0 Active OLANZapine (ZyPREXA) 10 MG tablet Take 7.5 mg by mouth daily 0 Active cyclobenzaprine (FLEXERIL) 10 MG tablet Take 10 mg by mouth 3 (three) times a day if needed for muscle spasms Active hydrOXYzine (ATARAX) 10 MG tablet TAKE 1 TO 2 TABLETS BY MOUTH TWICE DAILY NEEDED FOR ANXIETY / FOR ITCHING 2 Active melatonin tablet Take 1 mg by mouth at night if needed 2 Active chlorthalidone 25 MG tablet Take 25 mg by mouth 3 Active gabapentin (NEURONTIN) 300 MG capsule TAKE 1 CAPSULE BY MOUTH TWICE DAILY IN THE MORNING AND IN THE EVENING 3 Active Acetaminophen Extra Strength 500 MG tablet TAKE 2 TABLETS BY MOUTH EVERY 8 HOURS NEEDED 3 Active allopurinol (ZYLOPRIM) 300 MG tablet Take 300 mg by mouth 3 Active colchicine 0.6 MG tablet TAKE 1 TABLET BY MOUTH EVERY OTHER DAY IN THE MORNING 3 Active doxepin (SINEquan) 25 MG capsule Take 25 mg by mouth at bed time 3 Active hydroxychloroqu ine (PLAQUENIL) 200 MG tablet Take 200 mg by mouth every morning and evening 3 Active Active Problems Problem Noted Date Diagnosed Date Stage 3b chronic kidney disease 01/31/2023 Type 2 diabetes mellitus 01/31/2023 Low back pain 11/02/2021 Stage 3a chronic kidney disease 02/12/2020 Overview (11/17/2020): Update for Diagnosis Load Essential (primary) hypertension 02/12/2020 Resolved Problems Problem Noted Date Diagnosed Date Resolved Date Gout 02/12/2020 06/15/2021 nursing home use of nonsteroida l antiinflammatories 02/12/2020 06/15/2021 Immunizations Name Administration Dates Next Due Influenza Split 08/01/2013,10/23/2012 Influenza, MDCK, PF, Quadrivalent 03/12/2022 Influenza, Quadrivalent, Pre servative Free 08/10/2019 Influenza, Quadrivalent, Wit h Preservative 08/08/2018,12/12/2017,08/17/2016,08/20 Influenza, Unspecified 08/26/2022,08/27/2014 Pfizer SARS-COV-2 03/31/2022,03/12/2022 Pneumococcal Conjugate 13-Valent 12/12/2017 Pneumococcal Polysaccharide 03/19/2019, 3 SARS-CoV-2, Unspecified 08/26/2022,03/31/2022, Shingrix 11/29/2019,08/22/2019 Tdap 01/29/2013 Zoster 01/14/2015 Social History Tobacco Use Types Packs/Day Years Used Date Smoking Tobacco: Unknown Tobacco Cessation:Counseling Given: Not Answered Comments Unknown Sex and Gender Information Value Date Recorded Sex Assigned at Not on file Legal Sex Female 10:16 AM EST Gender Identity Not on file Sexual Orientation Not on file Last Filed Vital Signs Vital Sign Reading Time Taken Comments Blood Pressure 114/60 03/21/2023 4:43 PM EDT Pulse - - Temperature - - Respiratory Rate - - Oxygen Saturation - - Inhaled Oxygen Concentration - - Weight 126 kg (278 lb 3.2 oz) 03/21/2023 4:43 PM EDT Height - - Body Mass Index - - Plan of Treatment Upcoming Encounters Date Type Department Care Team (Late st Contact Info) Description 03/19/2025 1:30 PM EDT [facility] [address] [place] [phone] Shailesh Vallejo MD [address] [place] [address] [place] [phone] Health Maintenance Due Date Last Done Comments Breast Cancer Screening 1950 Colorectal Cancer Screening: Annual FOBT 2001 Colorectal Cancer Screening: Colonoscopy 2001 Colorectal Cancer Screening: Sigmoidoscopy 2001 Diabetes: Ophthalmology Exam 01/31/2023 Diabetes: Pedal Pulse Checked 01/31/2023 Diabetes: Sensory Foot Exam 01/31/2023 Diabetes: Visual Foot Exam 01/31/2023 Diabetes: Hemoglobin A1C 11/12/2024 024, 03/08/2023, 10/20/2022, Additional history exists Influenza Vaccine Completed 08/13/2024, , 03/12/2022, Additional history exists Pneumococcal Vaccine: 65+ Years Completed 08/13/2024, 03/19/2019, 12/12/2017, Additional history exists Hepatitis B Vaccine Aged Out No longe r eligible based on patient's age to complete this topic Procedures Procedure Name Priority Date/Time Associated Diagnosis Comments HEMOGLOBIN A1C Routine 10/20/2022 9:21 AM EST Stage 3a chronic kidney disease (HCC) Essential (primary) hypertension from Last 3 Months or Most Recently Relevant to Health Maintenance Results * (ABNORMAL) Hemoglobin A1c (10/20/2022 9:21 AM EST) Hemoglobin A1C 7.1(H) (4.0-5.6) % [facility] Comment: MONITORING: In known diabetic patients, hemoglobin A1c targets should be discussed with health care provider. DIAGNOSTIC USE: ??The [place] Diabetes Association (ADA) and the World Health Organization (WHO) recommend the use of HbA1c to diagnose diabetes using a threshold of 6.5%. Patients who have an HbA1c between 5.7% and 6.4% are considered at increased risk for developing diabetes in the future. CAUTION: Falsely low HbA1c results may be observed in patients with hemolytic anemia, homozygous forms of abnormal hemoglobin (e.g. SS, CC, SC), , recent blood loss or hemoglobin F greater than 7%. Fructosamine may be used as an alternate test in these cases. REFERENCE: ADA: Standards of Medical Care in Diabetes 2020, The Journal of Clinical and Applied Research and Education Volume 43, Supplement 1 Testing performed or reported by [facility], a Service of [facility], [address] [place] [id number] Yana Bales MD, Game Breeding Farm Manager [facility]# [id number] Blood (Blood, Venous) 10/20/2022 9:21 AM EST 10/20/2022 9:22 AM EST us Shailesh Vallejo MD LAB BLOOD ORDERABLES Final Resul t [facility] from Last 3 Months or Most Recently Relevant to Health Maintenance Insurance [facility] DUAL COMPLETE ([id number]) [place] [address] Care Teams Hog Pusher Relationship Specialty Start Date End Date Violeta Boo MD [address] [place] [address] ROSEANNE RICHARDSON [phone] PCP - General Internal Medicine 03/21/23
--- OUTSIDE RECORDS SUMMARY | 2024-12-12 14:55 | XMS_ITS | Encounter Summary ---
Author Organization [facility], Address [address] [place] [address] Phone Care Team Providers Care Juvenile Correctional Officer Name Role Phone Violeta Boo MD Primary Care Provide r Encounter Details Date Type Department Care Team (Late st Contact Info) Description 12/24/2022 Documentation Only [facility] [address] [place] [address] Jazmin Powell PA [address] [place] [address] [place] [address] Social History Tobacco Use Types [...] Visit [facility] [address] [place] [address] Shailesh Vallejo MD [address] [place] [address] [place] [address] documented as of this encounter Visit Diagnoses Not on filedocumented in this encounter Care Teams Juvenile Correctional Officer Relationship Specialty Start Date End Date Violeta Boo MD [address] [place] [phone] PCP - General Internal Medicine 03/21/23 documented as of this encounter
--- OUTSIDE RECORDS SUMMARY | 2024-12-12 14:55 | XMS_ITS | Encounter Summary ---
Author Organization [email or web address] Address [address] [facility] 7t [place] [address] Care Team Providers Care Rod Buster Name Role Phone Violeta Boo MD Primary Care Provide r Encounter Details Date Type Department Care Team (Late Contact Info) Description 08/17/2023 Abstract [facility] MEDICINE [address] [place] [address] Violeta Boo MD [address] [place] [address] Social History Tobacco Use Types Packs/Day Years [...] Description 01/25/2025 9:00 AM EDT Office Visit [facility] OPTOMETRY [address] [place] [address] Angella Negrete, OD 230 [place], [place] [phone] documented as of this encounter Visit Diagnoses Not on filedocumented in this encounter Care Teams Rod Buster Relationship Specialty Start Date End Date Violeta Boo MD [address] [place] [address] PCP - General Family Medicine 05/21/22 documented as of this encounter
--- OUTSIDE RECORDS SUMMARY | 2024-12-12 14:55 | XMS_ITS | Encounter Summary ---
Author Organization [employer] Address [address] [facility] 7t [place] [address] Care Team Providers Care Office Automation Technician Name Role Phone Violeta Boo MD Primary Care Provide r Reason for Visit * Reason Onset Date Comments Appointment Request 11/11/2023 Encounter Details Date Type Department Care Team ([facility] Contact Info) Description 11/11/2023 Telephone [facility] MEDICINE [address] [place] [address] Violeta Boo MD 230 [place], [place] [phone] Appointment Request Social History Tobacco Use Types [...] * Telephone Encounter - Shaheen Logan - 11/11/2023 2:41 PM EST Tc from patient calling to cancel and request a reschedule of the appt on 11/16/23 due to being covid positive short story writer did cancel appt documented in this encounter Plan of Treatment Upcoming Encounters Date Type Department Care Team (Late st Contact Info) Description 01/25/2025 9:00 AM EDT Office Visit [facility] OPTOMETRY [address] [place] [address] Caden, Angella, OD [address] [place] [address] documented as of this encounter Visit Diagnoses Not on filedocumented in this encounter Care Teams Office Automation Technician Relationship Specialty Start Date End Date Violeta Boo MD [address] [place] [address] PCP - General Family Medicine 05/21/22 documented as of this encounter
--- OUTSIDE RECORDS SUMMARY | 2024-12-12 14:55 | XMS_ITS | Encounter Summary ---
Author Organization [employer] Address [address] [facility] 7 [place] [address] Care Team Providers Care Guest Services Name Role Phone Violeta Boo MD Primary Care Provide r Reason for Visit * Reason Comments Med Refill Encounter Details Date Type Department Care Team ([facility] st Contact Info) Description 10/21/2024 Refill [facility] MEDICINE [address] [place] [address] Violeta Boo MD [address] [place] [address] Pain Social History Tobacco Use Types Packs/Day [...] 9:00 AM EDT Office Visit [facility] OPTOMETRY [address] [place] [address] Angella Negrete, OD [address] [place] [address] documented as of this encounter Visit Diagnoses Diagnosis Pain Generalized pain documented in this encounter Additional Health Concerns Assessment Noted Time PHQ-9 Depression Total Score: 17 024 11:23 AM EDT documented as of this encounter Care Teams Guest Services Relationship Specialty Start Date End Date Violeta Boo MD [address] [place] [address] PCP - General Family Medicine 05/21/22 documented as of this encounter
--- OUTSIDE RECORDS SUMMARY | 2024-12-12 14:55 | XMS_ITS | Encounter Summary ---
Author Organization [employer] Address [address] [facility] 7t [place] [address] Care Team Providers Care Freezer Person Name Role Phone Violeta Boo MD Primary Care Provide r Reason for Visit * Reason Comments Med Refill Encounter Details Date Type Department Care Team ([facility] st Contact Info) Description 11/18/2022 Refill [facility] & PEDS [address] [place] [address] Betsy Simmons CNM [address] [place] [address] Social History Tobacco Use Types Packs/Day Years [...] encounter Miscellaneous Notes * Telephone Encounter - Betsy Simmons CNM - 11/30/2022 11:13 AM EST Noted. New rx sent in. * Telephone Encounter - Suzi Thomas RN - 11/30/2022 10:52 AM EST T/C placed to pt re below messages. Pt confirms she is using 1g twice/week of the vaginal estrogen and that she is all out. Explained that if she is using it this way she shouldn't be out but pt insists she is using it correct and that she is out of it. Informed I would let provider know she needs the refill. * Telephone Encounter - Meeta Bell RN - 11/26/2022 2:19 PM EST T/C placed to pt x1 PM re below lab results and POC. No answer, left V/M. Will retask to [facility] for second attempt * Telephone Encounter - Betsy Simmons CNM - 11/26/2022 9:23 AM EST Could you pleaes call Violeta and check with her about her vaginal estrogen rx? See message above. Thanks! * Telephone Encounter - Betsy Simmons CNM - 11/23/2022 8:13 AM EST 42g tube with 1 refill sent 08/2022. She should be using 1 g twice a week at this point, and shouldstill have plenty left. Please confirm and see if she needs refill already. Thanks! documented in this encounter Plan of Treatment Upcoming Encounters Date Type Department Care Team (Late st Contact Info) Description 01/25/2025 9:00 AM EDT Office Visit [facility] OPTOMETRY [address] [place], [place] [phone] Angella Negrete, OD [address] [place] [address] documented as of this encounter Visit Diagnoses Not on filedocumented in this encounter Care Teams Freezer Person Relationship Specialty Start Date End Date Violeta Boo MD [address] [place] [address] PCP - General Family Medicine 05/21/22 documented as of this encounter
--- OUTSIDE RECORDS SUMMARY | 2024-12-12 14:55 | XMS_ITS | Encounter Summary ---
Author Organization [employer] Address [address] [facility] [address]t [place] [address] Care Team Providers Care Windows Application Administrator Name Role Phone Violeta Boo MD Primary Care Provide r Encounter Details Date Type Department Care Team ([facility] st Contact Info) Description 11/10/2023 Abstract [facility] MEDICINE [address] [place], [place] [phone] Violeta Boo MD [address] [place] [address] Social History Tobacco Use Types Packs/Day Years [...] Description 01/25/2025 9:00 AM EDT Office Visit [facility] OPTOMETRY [address] [place] [address] Angella Negrete, OD [address] [place] [address] documented as of this encounter Visit Diagnoses Not on filedocumented in this encounter Care Teams Windows Application Administrator Relationship Specialty Start Date End Date Violeta Boo MD [address] [place] [address] PCP - General Family Medicine 05/21/22 documented as of this encounter
--- OUTSIDE RECORDS SUMMARY | 2024-12-12 14:55 | XMS_ITS | Encounter Summary ---
Author Organization [employer] Address [address] [facility] 7t [place] [address] Care Team Providers Care Worm Sorter Name Role Phone Violeta Boo MD Primary Care Provide r Encounter Details Date Type Department Care Team (Late Contact Info) Description 11/25/2022 Telephone [facility] MEDICINE [address] [place] [address] Violeta Boo MD [address] [place] [address] Social History Tobacco Use Types Packs/Day Years [...] Description 01/25/2025 9:00 AM EDT Office Visit [facility] OPTOMETRY [address] [place] [address] Angella Negrete, OD [address] [place] [address] documented as of this encounter Visit Diagnoses Not on filedocumented in this encounter Care Teams Worm Sorter Relationship Specialty Start Date End Date Violeta Boo MD [address] [place] [address] PCP - General Family Medicine 05/21/22 documented as of this encounter
== END 2024-12-12 13:35 | disposition home or self-care (01) ==
PROVIDERS: PCP Internal Medicine; Visit Provider Anesthesiology
DX: M54.16 Radiculopathy, lumbar region (principal); M48.061 Spinal stenosis, lumbar region without neurogenic claudication; M54.51 Vertebrogenic low back pain
CPT/HCPCS: 99214

== ENCOUNTER → 2024-12-12 12:48 | Outpatient (BNVA) | payer OTHER, SELFPAY | PROVIDERS: PCP Internal Medicine; Visit Provider Anesthesiology | DX: M54.16 Radiculopathy, lumbar region (principal); M48.061 Spinal stenosis, lumbar region without neurogenic claudication; M54.51 Vertebrogenic low back pain | CPT/HCPCS: 99212 ==

== ENCOUNTER → 2024-12-21 11:33 | Outpatient (BNVA) | payer OTHER, SELFPAY | PROVIDERS: PCP Internal Medicine; Visit Provider Obstetrics & Gynecology ==

== ENCOUNTER → 2024-12-21 11:33 | Outpatient (AMB) | payer OTHER, SELFPAY ==
--- NOTE | 2024-12-21 11:34 | A.OFFVIS_ITS ---
Intake Visit Reasons: Ultrasound follow up Chrome Plater Helper Required: Yes Chrome Plater Helper Language: Fha Underwriter Services: Chrome Plater Helper Present (in person) Chrome Plater Helper Name: Kacy Molina RMA Allergies peanut [PEANUT] Allergy (Severe, Verified 12/12/24 13:22) ITCHY, SWELLING seafood Allergy (Severe, Verified 12/12/24 13:22) Rash tomato [TOMATO] Allergy (Severe, Verified 12/12/24 13:22) ITCHY, SWELLING aspirin [ASA] Allergy (Intermediate, Verified 12/12/24 13:22) ITCHY,ANXIOUS, itching, rash Iodinated Contrast Media [IV CONTRAST] Allergy (Intermediate, Verified 12/12/24 13:22) HIVES plantain [PLANTAIN] Allergy (Intermediate, Verified 12/12/24 13:22) ITCHY/SWELLING HPI Comments Details: The patient is scheduled tele health visit for follow-up regarding her pelvic pain . The following workup was done so far: Last visit urine dip was negative. Pelvic ultrasound showed the following: IMPRESSION: No abnormality is seen. [facility] Medical History Pain in left shoulder Screening for viral disease COPD (chronic obstructive pulmonary disease) Restrictive lung disease Allergic rhinitis ZOEY (obstructive sleep apnea) Edema PVD (peripheral vascular disease) On beta prashant at home Osteopenia Gout Osteoporosis Osteoarthritis Rheumatoid arthritis Anemia Panic attacks Anxiety Schizophrenia Pre-diabetes CKD (chronic kidney disease), stage III GERD (gastroesophageal reflux disease) Fatty liver Myocardial infarction CAD (coronary artery disease) Angina pectoris HTN (hypertension) Morbid obesity ZOEY treated with BiPAP COPD (chronic obstructive pulmonary disease) Allergic rhinitis Surgical History History of colonoscopy (~2021) History of lumpectomy of right breast (06/21/22) History of bladder suspension procedure History of esophagogastroduodenoscopy (EGD) Hx of colonoscopy History of hysterectomy History of tubal ligation History of lumpectomy of right breast Family History Mother Leukemia Brother Colon cancer Brother Leukemia Sister Breast cancer Sister Vaginal cancer Sister Breast cancer Sister Breast cancer Daughter Thyroid disease Social History Alcohol intake: never Patient Tobacco Use Status: Never used Tobacco Second Hand Smoke Exposure: No Female Reproductive History Menstrual Age of Menarche: 13 Review of Systems Const All systems reviewed & are unremarkable except as noted in HPI and below Reports as per HPI and Reports no additional complaints GI Reports no additional complaints Reports no additional complaints Telehealth Telehealth Telehealth Platform: Telephone Location of provider rendering services: practice address Patient Identification confirmed using: Name, : Yes Telehealth method: video Patient verbally consented to treatment: Yes Patient verbally consented to billing insurance company: Yes Patient informed of any privacy concerns related to visit: Yes Minutes spent on Phone/Video with Pt.: 7 Assessment & Plan Assessment & Plan (1) Pelvic pain: Code(s): R10.2 - Pelvic and perineal pain Category: Medical Plan: Discussed with the patient the results of the workup done including negative urine dip and unremarkable pelvic ultrasound. Differential diagnosis of spragger causes that have not be ruled out yet include but not limited to pelvic adhesions , or other. Recommended for the patient to see her PCP willy or to an urgent care clinic if not able to access her PCP for further workup for non spragger causes; if the all the results are negative and the patient's pelvic pain is persistent, instructions given to patient to call back for further testing. Meanwhile, instructions were given the patient to go to emergency room or call in case of fever above 100.4, heavy vaginal bleeding, persistence or worsening of her pelvic pain. All questions answered, the patient verbalized understanding. Coding Level of Care Code Tele Est Pt Level 3 (16299) Diagnoses Pelvic pain R10.2
== END | disposition home or self-care (01) ==
PROVIDERS: PCP Internal Medicine; Visit Provider Obstetrics & Gynecology
CPT/HCPCS: 99213

== ENCOUNTER 2025-01-14 09:43 | Outpatient (AMB) | payer OTHER, SELFPAY ==
--- NOTE | 2025-01-14 09:49 | A.OFFVIS_ITS ---
Vital Signs 01/14/25 09:50 Height 5 ft 3 in Weight 259 lb 0.69 oz BMI 45.9 BP 122/68 Blood Pressure Location Lt brachial Position Sitting Pulse 70 Pulse Source Pulse Oximeter Pulse Oximetry (%) 96 Oxygen Delivery Method Room Air Intake Visit Reasons: COPD Intake Note: pt is here for follow up and states dry cough with pain in chest. Singing Messenger Required: Yes Singing Messenger Services: Singing Messenger Present Singing Messenger Name: [id number] Allergies peanut [PEANUT] Allergy (Severe, Verified 01/14/25 10:11) ITCHY, SWELLING seafood Allergy (Severe, Verified 01/14/25 10:11) Rash tomato [TOMATO] Allergy (Severe, Verified 01/14/25 10:11) ITCHY, SWELLING aspirin [ASA] Allergy (Intermediate, Verified 01/14/25 10:11) ITCHY,ANXIOUS, itching, rash Iodinated Contrast Media [IV CONTRAST] Allergy (Intermediate, Verified 01/14/25 10:11) HIVES plantain [PLANTAIN] Allergy (Intermediate, Verified 01/14/25 10:11) ITCHY/SWELLING Medication List - Last Reconciled 01/14/25 by Jaden Srivastava MD acetaminophen 1,000 mg PO Q8H PRN albuterol sulfate 90 mcg/actuation 2 puffs inhalation Q4-6H PRN 30 days allopurinol 300 mg PO QAM atorvastatin 80 mg PO DAILY calcium carbonate-vitamin D3 600 mg-10 mcg (400 unit) 1 tab PO BID clotrimazole 1% appl topical DAILY colchicine 0.6 mg PO Q OTHER DAY cyanocobalamin (vitamin B-12) 1,000 mcg sublingual DAILY cyclobenzaprine 5 mg PO TID PRN 30 days diclofenac sodium 1% 4 grams topical QID diphenhydramine HCl 2% (Benadryl) 1 appl topical BID doxepin 25 mg PO BEDTIME estradiol 0.01%(0.1mg/gram) grams vaginal ezetimibe 10 mg PO QAM ferrous sulfate 325 mg PO QAM fexofenadine 180 mg PO QAM fluticasone propion-salmeterol 250-50 mcg/dose 1 ea PO BID fluticasone propionate 50 mcg/actuation 2 sprays intranasal DAILY 30 days gabapentin 300 mg PO BID hydrochlorothiazide 12.5 mg PO QAM inhalational spacing device As directed lancets As directed latanoprost 0.005% 1 drp ophthalmic (eye) BEDTIME losartan 100 mg PO QAM melatonin 1 mg PO BEDTIME PRN metoprolol succinate ER 50 mg PO DAILY montelukast 10 mg PO QPM nystatin 1 appl topical BID olanzapine 20 mg PO BEDTIME olanzapine 15 mg PO BEDTIME Otezla (apremilast) 30 mg PO BID NS Otezla Starter (apremilast) lot # [id number] NS pantoprazole 40 mg PO DAILY semaglutide (Ozempic) 0.25 mg subcut QWEEK sertraline 100 mg PO DAILY sertraline 50 mg PO QAM [thumb spica As directed] Do you need a note to return to daycare/school/sports/work: No HPI HPI COPD: Details: 74 years old very pleasant female Belarusian-speaking and we use the professional thiokol operator. Denies any particular complaints about breathing or sleep. Does have mild intermittent cough which causes some discomfort in the chest. Cough is mostly dry. Breathing has been okay without any attacks of wheezing or shortness of breath She sleeps good. Has lost significant amount of weight, as she is on Ozempic injections [facility] Medical History Pain in left shoulder Screening for viral disease COPD (chronic obstructive pulmonary disease) Restrictive lung disease Allergic rhinitis ZOEY (obstructive sleep apnea) Edema PVD (peripheral vascular disease) On beta prashant at home Osteopenia Gout Osteoporosis Osteoarthritis Rheumatoid arthritis Anemia Panic attacks Anxiety Schizophrenia Pre-diabetes CKD (chronic kidney disease), stage III GERD (gastroesophageal reflux disease) Fatty liver Myocardial infarction CAD (coronary artery disease) Angina pectoris HTN (hypertension) Morbid obesity ZOEY treated with BiPAP COPD (chronic obstructive pulmonary disease) Allergic rhinitis Surgical History History of colonoscopy (~2021) History of lumpectomy of right breast (06/21/22) History of bladder suspension procedure History of esophagogastroduodenoscopy (EGD) Hx of colonoscopy History of hysterectomy History of tubal ligation History of lumpectomy of right breast Family History Mother Leukemia Brother Colon cancer Brother Leukemia Sister Breast cancer Sister Vaginal cancer Sister Breast cancer Sister Breast cancer Daughter Thyroid disease Social History Alcohol intake: never Patient Tobacco Use Status: Never used Tobacco Second Hand Smoke Exposure: No Female Reproductive History Menstrual Age of Menarche: 13 Review of Systems Const All systems reviewed & are unremarkable except as noted in HPI and below ENT Reports nasal congestion (CONTROLLED WITH MEDS ) Card Denies chest pain, Denies leg edema and Denies dyspnea on exertion Resp Reports cough (MILD ), Denies dyspnea on exertion and Denies wheezing GI Reports no additional complaints Musc Reports no additional complaints Neuro Reports no additional complaints Aller/Immun Denies wheezing Physical Exam Vital Signs: Last Vital Signs Pulse 70 01/14/25 09:50 BP 122/68 01/14/25 09:50 Pulse Ox 96 01/14/25 09:50 Oxygen Delivery Method Room Air 01/14/25 09:50 BMI result Body Mass Index 45.9 Const General: comfortable, no acute distress, alert and awake Orientation/consciousness: patient oriented x3 HEENT Head: Yes normal to inspection General nose exam: No nasal polyps present, No nasal discharge present and Other nasal findings present (Mild nasal congestion) Face and sinus: Yes sinuses nontender Mouth: oropharynx normal Throat: No posterior oropharynx normal (Oropharynx is narrow and crowded, Mallampati class 3) Eyes General: appearance normal, both eyes and all related structures Neck Neck: Yes normal visual inspection, Yes no lymphadenopathy, Yes trachea midline and Yes no JVD Thyroid: Thyroid normal Chest Chest palpation & inspection: normal inspection of the chest, normal palpation of entire chest wall and no tenderness Resp Other: Percussion note is resonant, slightly diminished because of the thick chest wall. Breath sounds are distant with prolonged expiratory phase. I did not hear any wheezes rhonchi or crepitations. Cardio Palpation: PMI not normal (Not palpable) Rate: regular rate Rhythm: regular rhythm Heart sounds: no gallops and no murmurs GI Palpation (GI): Soft to palpation, nontender, No hepatosplenomegaly present, no masses and Other GI palpation findings present (Abdomen is obese and protuberant) Auscultation: normal bowel sounds Back/Spine/Pelvis Thoracic/Lumbar Spine: thoracic and lumbar spine normal to inspection and thoraco-lumbar ROM limited Skin General skin exam: no rashes or lesions noted Neuro General: patient oriented x3 and no focal motor deficits Cranial nerves: Yes CN's II-XII intact bilaterally Extrem General: Yes normal to inspection, Yes no clubbing, cyanosis or edema and Yes no calf tenderness Psych Appearance: grossly normal and well kempt Speech and movement: Normal speech and movement present Assessment & Plan Assessment & Plan (1) COPD (chronic obstructive pulmonary disease): Comment: SHE HAS SYMPTOMS CONSISTENT WITH COPD. BUT THE SYMPTOMS MAY BE MORE DUE TO RESTRICTIVE PULMONARY DISORDER. Patient claims that she has been doing okay, denies any wheezing attacks. Denies any shortness of breath because she does not. Walk much anyway Main issue is intermittent dry cough. Code(s): J44.9 - Chronic obstructive pulmonary disease, unspecified Category: Medical Plan: Continue to use Advair 250-51 inhalation b.i.d.. Use albuterol HFA 2 puffs Q 6 hours p.r.n. For cough she can use Robitussin 2 tsp t.i.d.. (2) Restrictive lung disease: Comment: MODERATE RESTRICTIVE PULMONARY DISORDER RELATED TO MORBID OBESITY. Code(s): J98.4 - Other disorders of lung Category: Medical Plan: EXPLAINED TO THE PATIENT. Told that when she loses more. Weight the restrictive disorder should resolve She is instructed to keep on doing deep breathing. Exercises at least 3 times a day (3) ZOEY (obstructive sleep apnea): Comment: SHE HAS PAST HISTORY OF OBSTRUCTIVE SLEEP APNEA . HAS BEEN USING CPAP IN THE PAST. SHE HAD A POLYSOMNOGRAM STUDY IN THE SLEEP LAB IN MAY OF 2024 . THIS STUDY CAME BACK NEGATIVE Code(s): G47.33 - Obstructive sleep apnea (adult) (pediatric) Category: Medical Plan: Again recommended that she should try to continue losing weight. Coding Level of Care Code Est Pt Level 3 (77909) Diagnoses COPD (chronic obstructive pulmonary disease) J44.9 Restrictive lung disease J98.4 ZOEY (obstructive sleep apnea) G47.33
[2025-01-14 09:50] VITALS: BP 122/68; PULSE 70; O2SAT 96; BMI 45.9
--- OUTSIDE RECORDS SUMMARY | 2025-01-14 10:53 | XMS_ITS | Encounter Summary ---
Author Organization [employer] Address [address] [facility] 7t [place] [address] Care Team Providers Care Barrel Cleaner Name Role Phone Violeta Boo MD Primary Care Provide r Reason for Visit * Reason Comments Med Refill Encounter Details Date Type Department Care Team ([facility] st Contact Info) Description 11/02/2024 Refill [facility] MEDICINE [address] [place] [address] Violeta Boo MD [address] [place] [address] Pain Social History Tobacco Use Types Packs/Day [...] 9:00 AM EDT Office Visit [facility] OPTOMETRY [address] [place] [address] Angella Ngerete, OD [address] [place] [address] 02/05/2025 9:15 AM EDT Office Visit [facility] MEDICINE [address] [place] [address] Violeta Boo MD [address] [place] [address] documented as of this encounter Visit Diagnoses Diagnosis Pain Generalized pain documented in this encounter Additional Health Concerns Assessment Noted Time PHQ-9 Depression Total Score: 17 024 11:23 AM EDT documented as of this encounter Care Teams Barrel Cleaner Relationship Specialty Start Date End Date Violeta Boo MD [address] [place] [address] PCP - General Family Medicine 05/21/22 documented as of this encounter
--- OUTSIDE RECORDS SUMMARY | 2025-01-14 10:53 | XMS_ITS | Encounter Summary ---
Author Organization [facility], Address [address] [place] [address] Phone Care Team Providers Care Facilities Maintenance Assistant Name Role Phone Violeta Boo MD Primary Care Provide r Encounter Details Date Type Department Care Team (Late st Contact Info) Description 03/15/2022 Documentation Only [facility] [address] [place] [address] Shailesh Vallejo MD [address] [place] [address] [place] [address] Social History Tobacco Use Types [...] Visit [facility] [address] [place] [address] Shailesh Vallejo MD [address] [place] [address] [place] [address] documented as of this encounter Visit Diagnoses Not on filedocumented in this encounter Care Teams Facilities Maintenance Assistant Relationship Specialty Start Date End Date Violeta Boo MD [address] [place] [phone] PCP - General Internal Medicine 03/21/23 documented as of this encounter
--- OUTSIDE RECORDS SUMMARY | 2025-01-14 10:53 | XMS_ITS | Encounter Summary ---
Author Organization [employer] Address [address] [facility] 7t [place] [address] Care Team Providers Care Seed Cleaner Operator Name Role Phone Violeta Boo MD Primary Care Provide r Reason for Visit * Reason Onset Date Comments Appointment Request 02/17/2023 Encounter Details Date Type Department Care Team ([facility] Contact Info) Description 02/17/2023 Telephone [facility] MEDICINE [address] [place] [address] Violeta Boo MD [address] [place], [place] [phone] Appointment Request Social History Tobacco Use Types [...] message previously sent. Please contact pt at [phone] Scottish Speaker * Telephone Encounter - Shay Navarro - 02/17/2023 1:16 PM EDT Tc from pt requesting to r/s appt for Follow up on 02/17/2023. Please contact pt at [phone] Scottish Speaker documented in this encounter Plan of Treatment Upcoming Encounters Date Type Department Care Team (Late st Contact Info) Description 01/25/2025 9:00 AM EDT Office Visit [facility] OPTOMETRY [address] [place] [address] Angella Negrete, OD [address] [place] [address] 02/05/2025 9:15 AM EDT Office Visit [facility] MEDICINE [address] [place] [address] Violeta Boo MD [address] [place] [address] documented as of this encounter Visit Diagnoses Not on filedocumented in this encounter Care Teams Seed Cleaner Operator Relationship Specialty Start Date End Date Violeta Boo MD [address] [place] [address] PCP - General Family Medicine 05/21/22 documented as of this encounter
--- OUTSIDE RECORDS SUMMARY | 2025-01-14 10:53 | XMS_ITS | Encounter Summary ---
Author Organization [employer] Address [address] [facility] 7 [place] [address] Care Team Providers Care Onion Farmer Name Role Phone Violeta Boo MD Primary Care Provide r Reason for Visit * Reason Onset Date Comments Referral 12/07/2024 Encounter Details Date Type Department Care Team ([facility] st Contact Info) Description 12/07/2024 Telephone [facility] MEDICINE [address] [place] [address] Violeta Boo MD [address] [place] [address] Referral Social History Tobacco Use Types Packs/Day [...] - 12/07/2024 11:04 AM EST Tc from [facility] with [facility] as she states wrong referral was sent over she's requestingPhysical Therapy referral to be faxed over [facility] [phone]. documented in this encounter Plan of Treatment Upcoming Encounters Date Type Department Care Team (Late st Contact Info) Description 01/25/2025 9:00 AM EDT Office Visit [facility] OPTOMETRY [address] [place] [address] Caden, Angella, OD [address] [place] [address] 02/05/2025 9:15 AM EDT Office Visit [facility] MEDICINE [address] [place] [address] Violeta Boo MD [address] [place] [address] documented as of this encounter Visit Diagnoses Not on filedocumented in this encounter Additional Health Concerns Assessment Noted Time PHQ-9 Depression Total Score: 17 024 11:23 AM EDT documented as of this encounter Care Teams Onion Farmer Relationship Specialty Start Date End Date Violeta Boo MD [address] [place] [phone] PCP - General Family Medicine 05/21/22 documented as of this encounter
--- OUTSIDE RECORDS SUMMARY | 2025-01-14 10:53 | XMS_ITS | Encounter Summary ---
Author Organization [employer] Address [address] [facility] 7t [place] [address] Care Team Providers Care Furnace Builder Name Role Phone Violeta Boo MD Primary Care Provide r Reason for Visit * Reason Onset Date Comments Referral 12/08/2022 Encounter Details Date Type Department Care Team ([facility] st Contact Info) Description 12/08/2022 Telephone [facility] MEDICINE [address] [place] [address] Violeta Boo MD [address] [place] [address] Referral Social History Tobacco Use Types Packs/Day [...] PM EST Rufino Pagan with [facility] requesting a new referral for colorectal Surgery at [address] [place] [address] [place] [address]. Ej stated that a provider from their got in contact With Dr. Berkowitz, and Dr. Berkowitz advised provider that it okay for pt to receive a referral. They are now requesting a new referral from PCP, in order for pt to be ssen. If any question please contact bill at [phone] documented in this encounter Plan of Treatment Upcoming Encounters Date Type Department Care Team (Late st Contact Info) Description 01/25/2025 9:00 AM EDT Office Visit [facility] OPTOMETRY [address] [place] [address] Angella Negrete, OD [address] [place] [address] 02/05/2025 9:15 AM EDT Office Visit [facility] MEDICINE [address] [place] [address] Violeta Boo MD [address] [place] [address] documented as of this encounter Visit Diagnoses Not on filedocumented in this encounter Care Teams Furnace Builder Relationship Specialty Start Date End Date Violeta Boo MD [address] [place] [address] PCP - General Family Medicine 05/21/22 documented as of this encounter
--- OUTSIDE RECORDS SUMMARY | 2025-01-14 10:53 | XMS_ITS | Clinical Summary ---
Author Organization [address] [facility] Address [address] [place] [address] Phone Care Team Providers Care Art Education Professor Name Role Phone Violeta Boo MD Primary Care Provide r Allergies Active Allergy Reactions Criticality Noted Date Comments Aspirin 11/03/2017 Other Reaction(s): Rash/Dermatitis Iodinated Contrast Media 11/03/2017 Contrast Dye [iv Contrast Dye] Other 10/30/2012 [facility] [employer] Medications acetaminophen (TYLENOL) 500 mg tablet TAKE 2 TABLETS BY MOUTH EVERY 8 HOURS NEEDED 3 Active albuterol 2.5 mg /3 mL (0.083 %) nebulizer solution INHALE 1 AMPULE USING A NEBULIZER THREE TIMES DAILY 3 Active albuterol HFA (PROAIR HFA ; PROVENTIL HFA ; VENTOLIN HFA) 90 mcg/actuation inhaler Inhale into the lungs. 2 Active atorvastatin (LIPITOR) 80 mg tablet TAKE 1 TABLET BY MOUTH EVERY MORNING 5 Active brimonidine (ALPHAGAN) 0.2 % ophthalmic solution INSTILL 1 DROP INTO THE AFFECTED EYE(S) THREE TIMES DAILY DIRECTED 3 Active calcium carbonate-vitam in D3 (Calcium 600 with Vitamin D3) 600 mg-10 mcg (400 unit) chewable tablet TAKE 1 TABLET BY MOUTH TWICE DAILY IN THE MORNING AND IN THE EVENING 0 Active chlorthalidone (HYGROTON) 25 mg tablet TAKE 1 TABLET BY MOUTH EVERY MORNING 2 Active clotrimazole (LOTRIMIN) 1 % cream Apply to skin and toenails daily for 12 weeks 4 Active cyanocobalamin, vitamin B-12, 1,000 mcg tablet, sublingual DISSOLVE 1 TABLET UNDER THE TONGUE EVERY DAY 2 Active ferrous sulfate 325 mg (65 mg elemental iron) tablet TAKE 1 TABLET BY MOUTH EVERY MORNING 3 Active fexofenadine (PAM) 180 mg tablet TAKE 1 TABLET BY MOUTH EVERY MORNING 0 Active fluocinolone (DERMA-SMOOTHE) 0.01 % external oil Apply topically. 3 Active fluticasone propionate (FLONASE) 50 mcg/actuation nasal spray 2 Sprays by Nasal route. 2 Active fluticasone-bre meterol (ADVAIR DISKUS) 250-50 mcg/dose diskus inhaler Inhale 1 Puff into the lungs. Active gabapentin (NEURONTIN) 300 mg capsule TAKE 1 CAPSULE BY MOUTH TWICE DAILY IN THE MORNING AND IN THE EVENING 3 Active glucose blood test strip TEST BLOOD SUGAR ONCE DAILY 3 Active meclizine (ANTIVERT) 25 mg tablet Take 1 Tablet by mouth. 2 Active metoprolol succinate (TOPROL-XL) 50 mg 24 hr tablet TAKE 1 TABLET BY MOUTH EVERY MORNING 3 Active montelukast (SINGULAIR) 10 mg tablet TAKE 1 TABLET BY MOUTH EVERY EVENING 5 Active OLANZapine (ZyPREXA) 15 mg tablet Take 1 Tablet by mouth. Active pantoprazole (PROTONIX) 40 mg EC tablet TAKE 1 TABLET BY MOUTH EVERY MORNING 0 Active simethicone (MYLICON,GAS-X) 180 mg capsule TAKE 1 CAPSULE BY MOUTH EVERY 8 HOURS WITH MEALS NEEDED FOR GAS 3 Active triamcinolone (KENALOG) 0.1 % cream Apply topically. 3 Active Active Problems Problem Noted Date [...] exercise, life style modifications, diet, referral to selling specialist. Discussed re lower calorie intake, increase [...] at Not on file Legal Sex Female 11:41 AM EST Gender Identity Not on file [...] PM EST Office Visit [facility] [place] [address] [phone] Maury Godoy, DPM [address] [address] Health Maintenance Due Date Last Done Comments [...] Screening (Lipid Panel) 03/15/2027 03/15/2022 Pneumococcal Vaccine: 50+ Years Completed 03/19/2019, 12/12/2017, 01/29/2013 Zoster Vaccines Completed 11/29/2019, 100 07/2019, 01/14/2015 HIB Vaccines Aged Out No [...] patient's age to complete this topic Meningococcal B Vacine Aged Out No lo nger eligible based on patient's age to complete [...] Test (03/01/2024) Annual BMP Blood Test Abstracted Result [facility] Provider HEALTH MAINTENANCE Final Result * Hemoglobin A1c (08/09/2022) Hemoglobin A1C 0.0 % Comment:No Interpretation, A bstracted Blood Venous blood specimen / Unknown Result [facility] Provider LAB BLOOD ORDERABLES Almaz l Result * Lipid panel (03/15/2022) LDL/HDL Ratio 0 Comment:No Interpretation, A bstracted Triglycerides 0 mg/dL Comment:No Interpretation, A bstracted Cholesterol 0 mg/dL Comment:No Interpretation, A bstracted HDL 0 mg/dL Comment:No Interpretation, A bstracted LDL Cholesterol 0 mg/dL Comment:No Interpretation, A bstracted Blood Venous blood specimen / Unknown Result [facility] Provider LAB BLOOD ORDERABLES Almaz l Result from Last 3 Months or Most Recently Relevant to Health Maintenance Insurance [place] [phone] Care Teams Art Education Professor Relationship Specialty Start Date End Date Violeta Boo MD [address] [place] [phone] PCP - General 5/16/23
--- OUTSIDE RECORDS SUMMARY | 2025-01-14 10:53 | XMS_ITS | Encounter Summary ---
Author Organization [employer] Address [address] [facility] 7t [place] [address] Care Team Providers Care Curriculum Coach Name Role Phone Violeta Boo MD Primary Care Provide r Encounter Details Date Type Department Care Team (Late st Contact Info) Description 07/20/2024 Telephone [facility] OPTOMETRY [address] [place] [address] Angella Negrete, OD [address] [place] [address] Social History Tobacco Use Types Packs/Day Years [...] 07/20/2024 3:24 PM EDT Called the Patient BUILDING COMPONENTS DESIGNER Nikita Sneed, to inform her at the request [...] Description 01/25/2025 9:00 AM EDT Office Visit [facility] OPTOMETRY [address] [place] [address] Angella Negrete, OD [address] [place] [address] 02/05/2025 9:15 AM EDT Office Visit [facility] MEDICINE [address] [place] [address] Violeta Boo MD [address] [place] [address] documented as of this encounter Visit Diagnoses Not on filedocumented in this encounter Care Teams Curriculum Coach Relationship Specialty Start Date End Date Violeta Boo MD [address] [place] [address] PCP - General Family Medicine 05/21/22 documented as of this encounter
--- OUTSIDE RECORDS SUMMARY | 2025-01-14 10:53 | XMS_ITS | Encounter Summary ---
Author Organization [employer] Address [address] [facility] 7t [place] [address] Care Team Providers Care Live In Housekeeper Name Role Phone Violeta Boo MD Primary Care Provide r Reason for Visit * Reason Comments Med Refill Encounter Details Date Type Department Care Team (Late Contact Info) Description 02/13/2023 Refill [facility] MEDICINE [address] [place] [address] Cassy Starks MD [address] [place] [address] Social History Tobacco Use Types Packs/Day Years [...] 9:00 AM EDT Office Visit [facility] OPTOMETRY [address] [place] [address] Angella Negrete, OD [address] [place] [address] 02/05/2025 9:15 AM EDT Office Visit [facility] MEDICINE [address] [place] [address] Violeta Boo MD [address] [place] [address] documented as of this encounter Visit Diagnoses Not on filedocumented in this encounter Care Teams Live In Housekeeper Relationship Specialty Start Date End Date Violeta Boo MD [address] [place] [address] PCP - General Family Medicine 05/21/22 documented as of this encounter
--- OUTSIDE RECORDS SUMMARY | 2025-01-14 10:53 | XMS_ITS | Encounter Summary ---
Author Organization [employer] Address [address] [facility] 7 [place] [address] Care Team Providers Care Idea Man Name Role Phone Violeta Boo MD Primary Care Provide r Reason for Visit * Reason Onset Date Comments Med Refill 10/25/2024 Encounter Details Date Type Department Care Team ([facility] st Contact Info) Description 10/25/2024 Telephone [facility] MEDICINE [address] [place] [address] Violeta Boo MD [address] [place], [place] [phone] Med Refill Social History Tobacco Use Types [...] Description 01/25/2025 9:00 AM EDT Office Visit [facility] OPTOMETRY [address] [place] [address] Angella Negrete, OD [address] [place] [address] 02/05/2025 9:15 AM EDT Office Visit [facility] MEDICINE [address] [place] [address] Violeta Boo MD [address] [place] [address] documented as of this encounter Visit Diagnoses Not on filedocumented in this encounter Additional Health Concerns Assessment Noted Time PHQ-9 Depression Total Score: 17 024 11:23 AM EDT documented as of this encounter Care Teams Idea Man Relationship Specialty Start Date End Date Violeta Boo MD [address] [place] [address] PCP - General Family Medicine 05/21/22 documented as of this encounter
--- OUTSIDE RECORDS SUMMARY | 2025-01-14 10:53 | XMS_ITS | Encounter Summary ---
Author Organization [employer] Address [address] [facility] 7t [place] [address] Care Team Providers Care Robotic Weld Technician Name Role Phone Violeta Boo MD Primary Care Provide r Reason for Visit * Reason Comments Med Refill Encounter Details Date Type Department Care Team ([facility] st Contact Info) Description 10/21/2024 Refill [facility] MEDICINE [address] [place] [address] Violeta Boo MD [address] [place] [address] Pain Social History Tobacco Use Types Packs/Day [...] Description 01/25/2025 9:00 AM EDT Office Visit [facility] OPTOMETRY [address] [place] [address] Angella Negrete, OD [address] [place] [address] 02/05/2025 9:15 AM EDT Office Visit [facility] MEDICINE [address] [place] [address] Violeta Boo MD [address] [place] [address] documented as of this encounter Visit Diagnoses Diagnosis Pain Generalized pain documented in this encounter Additional Health Concerns Assessment Noted Time PHQ-9 Depression Total Score: 17 024 11:23 AM EDT documented as of this encounter Care Teams Robotic Weld Technician Relationship Specialty Start Date End Date Violeta Boo MD [address] [place] [address] PCP - General Family Medicine 05/21/22 documented as of this encounter
--- OUTSIDE RECORDS SUMMARY | 2025-01-14 10:53 | XMS_ITS | Encounter Summary ---
Author Organization [employer] Address [address] [place] [address] 7t [place] [address] Care Team Providers Care Scientific Recruiter Name Role Phone Violeta Boo MD Primary Care Provide r Encounter Details Date Type Department Care Team ([facility] Contact Info) Description 03/22/2023 Orders Only [facility] MED & PEDS [address] [place], [place] [phone] Brittany Epps LPN Social History Tobacco Use [...] 01/25/2025 9:00 AM EDT Office Visit [facility] OPTOMETRY [address] [place] [address] Caden, Angella, OD [address] [place], [place] [phone] 02/05/2025 9:15 AM EDT Office Visit [facility] MEDICINE [address] [place], [place] [phone] Violeta Boo MD [address] [place] [address] documented as of this encounter Visit Diagnoses Not on filedocumented in this encounter Care Teams Scientific Recruiter Relationship Specialty Start Date End Date Violeta Boo MD [address] [place] [address] PCP - General Family Medicine 05/21/22 documented as of this encounter
--- OUTSIDE RECORDS SUMMARY | 2025-01-14 10:53 | XMS_ITS | Clinical Summary ---
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 [phone] Health Maintenance Due Date Last Done Comments [...] AM EST) Hemoglobin A1C 7.1(H) (4.0-5.6) % [facility] Comment: MONITORING: In known diabetic patients, hemoglobin A1c targets should be discussed with health care provider. DIAGNOSTIC USE: ??The [place] Diabetes Association (ADA) and the World Health [...] Supplement 1 Testing performed or reported by [facility], a Service of [facility], [address] [place] [id number] Yana Bales MD, New Vehicle Sales Consultant [facility]# [id number] Blood (Blood, Venous) 10/20/2022 9:21 AM EST 10/20/2022 9:22 AM EST us Shailesh Vallejo MD LAB BLOOD ORDERABLES Final Resul t [facility] from Last 3 Months or Most Recently Relevant to Health Maintenance Insurance [facility] DUAL COMPLETE ([id number]) Care Teams Qa Tech Relationship Specialty Start Date End Date Violeta Boo MD [address] [place] [address] [place] R[place]ARDSON [phone] PCP - General Internal Medicine 03/21/23
--- OUTSIDE RECORDS SUMMARY | 2025-01-14 10:53 | XMS_ITS | Encounter Summary ---
Author Organization [facility], Address [address] [place] [address] Phone Care Team Providers Care Patient Service Technician Pst Name Role Phone Violeta Boo MD Primary Care Provide r Encounter Details Date Type Department Care Team (Late st Contact Info) Description 02/13/2024 Documentation Only [facility] [address] [place] [phone] Rowena Knowles [address] [place] [phone] Social History Tobacco Use Types [...] [facility] [address] [place] [address] Shailesh Vallejo MD [address] [place] [address] [place] [phone] documented as of this encounter Visit Diagnoses Not on filedocumented in this encounter Care Teams Patient Service Technician Pst Relationship Specialty Start Date End Date Violeta Boo MD [address] [place] [phone] PCP - General Internal Medicine 03/21/23 documented as of this encounter
--- OUTSIDE RECORDS SUMMARY | 2025-01-14 10:53 | XMS_ITS ---
Author Name Radha Ayala NP Address [address] [place] [address] Phone [phone] [facility] Care Team Providers Care Fur Tailor Name Role Phone Radha Ayala Unavailable [phone] Unavailable Unavailable Unavailable Unavailable Unavailable Unavailable Cristo Garcia Unavailable [phone] Unavailable Unavailable [phone] Gideon Frost Unavailable [phone] Unavailable Unavailable Unavailable Unavailable Unavailable Unavailable Unavailable Unavailable [phone] Unavailable Unavailable Unavailable WALTER ROBERT Unavailable [phone] Nirav Anthony Unavailable [phone] Unavailable Unavailable [phone] Unavailable Unavailable [phone] Reason for Referral Not Available Allergies, adverse [...] AREA(S) EVERY MORNING 2022-12-16 No Data Available [id number] 3 TO 4 DROPS INTO [...] a day 2024-05-11 No Data Availab le [facility] Verio Flex System w/Device Kit USE DIRECTED [...] N/A Incontinent of feces Active 2023-04-07 N/A Seborrheic dermatitis Active 2023-04-07 N/A Decreased hearing of left ear,associated w tinnitus Ac tive 2023-04-07 N/A Schizophrenia Active 2023-04-12 N/A 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;Peripheral vascular disease, unspecified Active 2023-04-12 N/A Chronic gouty arthritis;Generalized osteoarthritis Act rossy 2023-04-07 N/A Chronic diarrhea Active 2023-04-07 N/A Unspecified atherosclerosis of [place] arteries of extremities, bilateral legs Active 2023-04-13 N/A Chronic obstructive pulmonary disease, unspecified Act rossy 2023-04-13 N/A Hemorrhoids Active 2023-08-10 N/A Onychomycosis Active 2023-08-21 N/A Chronic bilateral low back p ain with bilateral sciatica;Bulging lumbar disc Active 2023-04-07 N/A Chronic back pain Active 2023-10-21 N/A At risk for cancerAt risk for colon cancer Active 2023-10-21 N/A Other problems related to nc dical facilities and other health care Active 2024-01-19 N/A Other problems related to nc dical facilities and other health care Active 2024-05-12 N/A Frequent falls Active 2023-04-07 N/A Rheumatoid arthritis without rheumatoid factor, multiple sitesSacroiliitis, not elsewhere classifiedImmunodeficiency due to conditions classified elsewhere Active 2023-04-12 N/A Type 2 diabetes mellitus wit h stage 3b chronic kidney disease Active 2023-04-07 N/A Class 3 severe obesity with serious comorbidity and body mass index (BMI) of 50.0 to 59.9 in adult Active 2023-04-07 N/A Encounters Encounters Type Facility Date of Service Diagnosis/Co mplaint New patient,40-59min; chronic exacerbation, 2 stable chronic or 1 acute illness add add modifier 95 for video (do not use for phone, instead use 30003-54) [facility], ([place] Noninfective gastroenteritis and colitis, unspecifiedRepeated fallsUnspecified [...] sitesSacroiliitis, not elsewhere classifiedAthscl heart disease of [place] cor art w unsp ang pctrsPeripheral vascular disease, unspecified New patient,40-59min; chronic exacerbation, 2 stable chronic or 1 acute illness add add modifier 95 for video (do not use for phone, instead use 65956-75) [facility] [place] New patient,40-59min; chronic exacerbation, 2 stable chronic or 1 acute illness add add modifier 95 for video (do not use for phone, instead use 67409-04) [facility] [place]20[place] New patient,40-59min; chronic exacerbation, 2 stable chronic or 1 acute illness add add modifier 95 for video (do not use for phone, instead use 34256-38) [facility] [place] New patient,40-59min; chronic exacerbation, 2 stable chronic or 1 acute illness add add modifier 95 for video (do not use for phone, instead use 82998-64) [facility] [place]20[place] New patient,40-59min; chronic exacerbation, 2 stable chronic or 1 acute illness add add modifier 95 for video (do not use for phone, instead use 55946-05) [facility] [place] 04[place]20[place] New patient,40-59min; chronic exacerbation, 2 stable chronic or 1 acute illness add add modifier 95 for video (do not use for phone, instead use 58879-70) [facility]20[place] New patient,40-59min; chronic exacerbation, 2 stable chronic or 1 acute illness add add modifier 95 for video (do not use for phone, instead use 77273-05) [facility] [place] 04[place]20[place] New patient,40-59min; chronic exacerbation, 2 stable chronic or 1 acute illness add add modifier 95 for video (do not use for phone, instead use 47856-58) [facility], ([place]) 04/07/2023 Unlisted special service; to be used for medical record reviews and reporting CPTII codes (1111F, etc) [facility] ([place] 07/[place]/2023 Other specified counseling Unlisted special service; to be used for medical record reviews and reporting CPTII codes (1111F, etc) [facility]2023 Unlisted special service; to be used for medical record reviews and reporting CPTII codes (1111F, etc) [facility] 07[place]2023 No Data Available [facility]10[place]2023 Body mass index (BMI) 45.0-4 9.9, adultPrediabetesMorbid (severe) obesity due to excess caloriesTinea unguiumLumbago with sciatica, left sideLumbago with sciatica, right sideOther chronic painOther intervertebral disc degeneration, lumbar region No Data Available [facility] [place] 08[place]10/2023 No Data Available [facility] [place] 08/10/2023 No Data Available [facility] [place] 10[place]21/2023 Dorsalgia, unspecifiedOther chronic painMorbid (severe) obesity due to excess caloriesOther specified personal risk factors, not elsewhere classified No Data Available [facility] [place] 10[place]21/2023 Estab. patient 30-39min; chronic exacerbation, 2 stable chronic or 1 acute illness add add modifier 95 for video, (do not use for phone, instead use 25298-42) [facility] [place] 05/11/2024 Type 2 diabetes mellitus wit h diabetic chronic kidney diseaseChronic kidney disease, stage 3bRepeated fallsUnspecified hearing loss, left earTinnitus, left earUnspecified hemorrhoidsOther specified postprocedural statesLumbago with sciatica, left sideLumbago with sciatica, right sideOther chronic painOther intervertebral disc degeneration, lumbar regionIdiopathic chronic gout, unspecified site, without tophus (tophi)Polyosteoarthritis, unspecifiedSchizophrenia, unspecifiedAthscl heart disease of [place] cor art w unsp ang pctrsType 2 diabetes w diabetic peripheral angiopath w/o gangreneUnsp athscl [place] arteries of extremities, bilateral legsChronic obstructive pulmonary [...] (do not use for phone, instead use 42349-06) [facility] [place]20[place] Estab. patient 30-39min; chronic exacerbation, 2 stable chronic or 1 acute illness add add modifier 95 for video, (do not use for phone, instead use 84104-93) [facility] [place] 05[place]11/2024 Estab. patient 30-39min; chronic exacerbation, 2 stable chronic or 1 acute illness add add modifier 95 for video, (do not use for phone, instead use 07591-74) [facility]20[place] Estab. patient 30-39min; chronic exacerbation, 2 stable chronic or 1 acute illness add add modifier 95 for video, (do not use for phone, instead use 46842-59) [facility]20[place] Estab. patient 30-39min; chronic exacerbation, 2 stable chronic or 1 acute illness add add modifier 95 for video, (do not use for phone, instead use 47140-74) [facility] 05[place]20[place] Estab. patient 30-39min; chronic exacerbation, 2 stable chronic or 1 acute illness add add modifier 95 for video, (do not use for phone, instead use 93856-88) [facility] 05[place]20[place] No Data Available [facility] [place] 05[place]/2024 Type 2 diabetes mellitus wit h diabetic chronic kidney diseaseChronic kidney disease, stage 3b No Data Available [facility] 05/14/2024 No Data Available [facility]2024 Type 2 diabetes mellitus wit h diabetic chronic kidney diseaseChronic kidney disease, stage 3b No Data Available [facility] [place] 06[place]/2024 Unlisted special service; to be used for medical record reviews and reporting CPTII codes (1111F, etc) [facility] [place]/04/2024 Other specified counseling Unlisted special service; to be used for medical record reviews and reporting CPTII codes (1111F, etc) [facility]20[place] Unlisted special service; to be used for medical record reviews and reporting CPTII codes (1111F, etc) [facility] [place]20[place] Estab. patient 10-29min; 1 minor problem; add add modifier 95 for video, modifier 93 for phone [facility] [place] 12[place]18/2024 Type 2 diabetes mellitus wit h diabetic chronic kidney diseaseChronic kidney disease, stage 3bMorbid (severe) obesity due to excess caloriesBody mass index (bmi) 50-59.9 , adult Estab. patient 10-29min; 1 minor problem; add add modifier 95 for video, modifier 93 for phone [facility] 12[place]18/20[place] Estab. patient 10-29min; 1 minor problem; add add modifier 95 for video, modifier 93 for phone [facility] [place] 12/18/2024 Vital Signs Date of Collection Vitals 2023-04-07 13:01:17 Height - 160.02 cmWe ight - 126.1 kgBody Mass Index (BMI) - 49.25 kg/m2 2023-08-10 10:24:04 Height - 160.02 cmWe ight - 124.29 kgBody Mass Index (BMI) - 48.54 kg/m2 2024-05-11 10:40:24 Height - 160.02 cmWe ight - 133.36 kgBody Mass Index (BMI) - 52.08 kg/m2BP Diastolic - 90.0 mm[Hg]BP Systolic - 130.0 mm[Hg] 2024-12-18 08:09:04 Weight - 130.64 kgBo dy Mass Index (BMI) - 51.02 kg/m2 Social History Sex Female History of Procedures Procedures Service Procedure code Service date Servicing provider Phone# New patient,40-59min; chronic exacerbation, 2 stable chronic or 1 acute illness add add modifier 95 for video (do not use for phone, instead use [id number]) 84317 2023-04-07 No Data Available No Data Availa [...] reviews and reporting CPTII codes (1111F, etc) 99355 2023-07-01 No Data Available No Data Availa ble SBP < 130 (3074F) 3074F 2023-07-01 No Data Available No Data Available DBP <80 (3078F) 3078F 2023-07-01 No Data Available No Data Available No Data Available 87616 2023-08-10 No Data Available No Data Available Medication List Documented (1159F) 1159F 2023-08-10 No Data Available No Data Lena ilable BMI obtained (3008F) 3008F 2023-08-10 No Data Availab le No Data Available No Data Available 22822 2023-10-21 No Data Available No Data Available Medication List Documented (1159F) 1159F 2023-10-21 No Data Available No Data Lena ilable Estab. patient 30-39min; chronic exacerbation, 2 stable chronic or 1 acute illness add add modifier 95 for video, (do not use for phone, instead use 19304-25) 33422 2024-05-11 No Data Available No Data Availa [...] Available No Data Available No Data Available 31969 2024-05-14 No Data Available No Data Available Medication List Documented (1159F) 1159F 2024-05-14 No Data Available No Data Lena ilable No Data Available 29902 2024-06-20 No Data Available No Data Available Medication List Documented (1159F) 1159F 2024-06-20 No Data Available No Data Lena ilable Unlisted special service; to be used for medical record reviews and reporting CPTII codes (1111F, etc) 00923 2024-09-04 No Data Available No Data Availa ble SBP >= 140 3077F 2024-09-04 No Data Available No Data Available DBP >=90 3080F 2024-09-04 No Data Available No Data Available Estab. patient 10-29min; 1 minor problem; add add modifier 95 for video, modifier 93 for phone 36337 2024-12-18 No Data Available No Data Availa ble Medication List Documented (1159F) 1159F 2024-12-18 No Data Available No Data Lena ilable BMI obtained (3008F) 3008F 2024-12-18 No Data Availab le No Data Available Functional Status Functional Category [...] rheumatoid factor, multiple sitesAtherosclerotic heart disease of [place] coronary artery with unspecified angina pectoris;Peripheral vascular [...] discChronic gouty arthritis;Generalized osteoarthritisSchizophreniaAtherosclerotic heart disease of [place] coronary artery with unspecified angina pectoris;Peripheral vascular disease, unspecifiedUnspecified atherosclerosis of [place] arteries of extremities, bilateral legsChronic obstructive pulmonary [...] itus with stage 3b chronic kidney disease 2024-12-18 08:09:04 Type 2 diabetes christa itus with stage 3b chronic kidney diseaseClass 3 severe obesity with serious comorbidity and body mass index (BMI) of 50.0 to 59.9 in adult Plan of Care Date of Service Plans [...] Documented (1125F)Continue to see PCP. Follow-up with Rosey as [...] for weight clinic - also endocr for [facility] MASending to podiatry per pt request.Also needs [...] area that had available staff.Pt to call [facility] and get name of PT providers in her area that are covered.Will investigate weight loss clinics.Pt to look for back exercises on YouTube, activity as tolerated.Will FU.BMI 49.25send to weight clinic but not [place]referral for weight clinic - also endocr for [facility]10/21/2023Have not been able to find clinic that is covered by [facility] in er area. Pt to call [facility] and find list of names of clinics.Will [...] Documented (1125F)Continue to see PCP. Follow-up with [facility] as needed for any acute or disease [...] portal notes, I70.203 - Unspecified atherosclerosis of [place] arteries of extremities, bilateral legs continues to take albuterol sulfatePlease call CB ifIncreased SOB,or if patient falls.Pain that radiates to vaginaHas seen PCPhas referral to GI but is going to cancelEd not to cancel, get transportBMI 52.08send to weight clinic but not [place] 08/[place]23referral for weight clinic - also [place]ocr [place] [facility]23Have not been able to find clinic that is covered by [facility] in er area. Pt to call [facility] and find list of names of clinics.Will [...] area that had available staff.Pt to call [facility] and get name of PT providers in [...] modifier 95)Continue to see PCP. Follow-up with [facility] as needed for any acute or disease education needs that may arise 06/06.Record does mention DM2 w 3b CKDA1C 5.19 February 2023 m- will look for more recentGFR 35, Creatinine 1.46, March3Patient is unaware, believes her kidneys are fine.Will educate further at FUavoid nephrotoxic medicationsInsists her sugars are good; however, also reports frequent urination. Unclear what became of endo referral. Prescribing zzempic, for DM and for weight loss.Will FU Tuesday.4Continues to c/o frequent urination. HAS NOT PICKED UP OZEMPIC NOR HER GLUCOMETER. What's more, hardly remembers details of our conversation of three days ago. Her JAWBONE PULLER is supposed to go tonight or tomorrow [...] modifier 95)Continue to see PCP. Follow-up with [facility] as needed for any acute or disease education needs that may arise 06/06.Record does mention DM2 w 3b CKDA1C 5.19 February 2023 m- will look for more recentGFR 35, Creatinine 1.46, March3Patient is unaware, believes her kidneys are fine.Will educate further at FUavoid nephrotoxic medicationsInsists her sugars are good; however, also reports frequent urination. Unclear what became of endo referral. Prescribing zzempic, for DM and for weight loss.Will FU Tuesday.4Continues to c/o frequent urination. HAS NOT PICKED UP OZEMPIC NOR HER GLUCOMETER. What's more, hardly remembers details of our conversation of three days ago. Her JAWBONE PULLER is supposed to go tonight or tomorrow [...] mg dose. She will be traveling to [place] so she is to ask for emergency traveling supply, which won't be much as she will be back july.Refilled w instructions to pharmacy.Will FU after . 2024-12-18 08:09:04 Estab. patient 10-29 min; 1 minor problem; add add modifier 95 for video, modifier 93 for phoneContinue to see PCP. Follow-up with [facility] as needed for any acute or disease [...] our conversation of three days ago. Her JAWBONE PULLER is supposed to go tonight or tomorrow [...] mg dose. She will be traveling to [place] so she is to ask for emergency traveling supply, which won't be much as she will be back july.Refilled w instructions to pharmacy.Will FU after .2.4.25reports using ozempic since 04/2024followed by PCP q 6 monthsLast A1c 5.9 08/22/24serum Creat: 1.38, EGFR 38 Is requesting a refill for ozempic. My PCP will not rx as CB started the perscription . last took ozempic this week, last injected yesterday. Has limited supply at home. PLAN: call pcp and make in person f/u appointment. F/u c Dr. Violeta Pascual re continuation of prescription. Discussed at length that member will need routine labs and monitoring q 3 months with possible titrations. Member agreeable with plan.BMI 52.08send to weight clinic but [place]referral for weight clinic - also endocr for [facility]10/21/2023Have not been able to find clinic that is covered by [facility] in er area. Pt to call [facility] and find list of names of clinics.Will FU.12/18/24will f/u with PCP re refilling ozempic and contiue to monitor labs q 3 months Health Concerns Date Concern 2024-12-18 Visit completed via audio by telephone. Patient/Guardian agreed to visit via telehealth.Time spent in visit: 2024-12-18 Most recent hospital stay(s) or ER visit(s) and precipitating factors: 2024-12-18 HEDIS review: 2024-12-18 PCP: Violeta Pascual. f/u 02/05/25 2024-12-18 has used ozempic x 1 year since 04/20242024-12-18 A1c 5.9 08/22/24
--- OUTSIDE RECORDS SUMMARY | 2025-01-14 10:53 | XMS_ITS | Clinical Summary ---
Author Organization [employer] Address [address] [place] [address] 7t [place] [address] Care Team Providers Care Salvage Laborer Name Role Phone Violeta Boo MD Primary Care Provide r Allergies Active Allergy Reactions Criticality Noted Date Comments Aspirin Rash High 10/23/2012 Other reaction(s): rash Iodinated Contrast Media 10/30/2012 Medications albuterol (ProAir HFA) 108 (90 Base) MCG/ACT inhaler Inhale every 6 (six) hours. Active fluticasone (Flonase Allergy Relief) 50 MCG/ACT nasal spray Administer 2 sprays into affected nostril(s) 1 (one) time each day. Active Fluticasone-Sa lmeterol (Advair Diskus) 250-50 MCG/ACT aerosol powder Inhale 1 puff every 12 (twelve) hours. Active hydrocortisone (Anusol-HC) 2.5 % rectal cream Apply topically every 12 (twelve) hours. Active lidocaine (Lidoderm) 5 % patch Place 1 patch on the skin in the morning. Active losartan (Cozaar) 100 MG tablet Take 1 tablet by mouth 1 (one) time each day. Active meclizine (Antivert) 25 MG tablet Take 1 tablet by mouth every 8 (eight) hours. Active OLANZapine (ZyPREXA) 15 MG tablet Take 1 tablet by mouth 1 (one) time each day. Active Cyanocobalamin (Vitamin B-12) 1000 MCG sublingual tablet DISSOLVE 1 TABLET UNDER THE TONGUE EVERY DAY 022 Active triamcinolone (Kenalog) 0.1 % creamIndicatio ns:Seborrheic dermatitis Apply topically if needed in the morning and at bedtime (pain and swelling). 30 g 2 023 Active OneTouch Ultra test stripIndicatio ns:Vertigo TEST BLOOD SUGAR ONCE DAILY 50 strip 023 Active pantoprazole (ProtoNix) 40 MG EC tablet TAKE 1 TABLET BY MOUTH EVERY MORNING 023 Active fexofenadine (Lelia) 180 MG tablet TAKE 1 TABLET BY MOUTH EVERY MORNING 30 tablet 023 Active fexofenadine (Lelia) 180 MG tablet TAKE 1 TABLET BY MOUTH EVERY MORNING 023 Active metoprolol succinate XL (Toprol-XL) 50 MG 24 hr tablet TAKE 1 TABLET BY MOUTH EVERY MORNING 023 Active Acetaminophen Extra Strength 500 MG tabletIndicati ons:Pain TAKE 2 TABLETS BY MOUTH EVERY 8 HOURS NEEDED 60 tablet 1 023 Active albuterol (2.5 MG/3ML) 0.083% nebulizer solution INHALE 1 AMPULE USING A NEBULIZER THREE TIMES DAILY 90 mL 3 023 Active clotrimazole-b etamethasone (Lotrisone) creamIndicatio ns:Intertrigo APPLY TOPICALLY TO AFFECTED AREA(S) TWICE DAILY 30 g 023 Active permethrin (Elimite) 5 % creamIndicatio ns:Dermatitis apply to skin from hairline to toes and wash off 8-10 hours later 60 g 024 Active hydrocortisone (Anusol-HC) 2.5 % rectal creamIndicatio ns:Hemorrhoids , complicated Insert into the rectum 2 times daily. 28 g 024 Active atorvastatin (Lipitor) 80 MG tablet TAKE 1 TABLET BY MOUTH EVERY MORNING 30 tablet 024 Active montelukast (Singulair) 10 MG tablet TAKE 1 TABLET BY MOUTH EVERY EVENING 30 tablet 024 Active pantoprazole (ProtoNix) 40 MG EC tablet TAKE 1 TABLET BY MOUTH EVERY MORNING 30 tablet 024 Active Calcium Carb-Cholecalc iferol 600-10 MG-MCG tablet TAKE 1 TABLET BY MOUTH TWICE DAILY IN THE MORNING AND IN THE EVENING 60 tablet 11 Active FeroSul 325 (65 Fe) MG tablet TAKE 1 TABLET BY MOUTH EVERY MORNING 30 tablet 11 Active metoprolol succinate XL (Toprol-XL) 50 MG 24 hr tablet TAKE 1 TABLET BY MOUTH EVERY MORNING 90 tablet 3 Active Simethicone Ultra Strength 180 MG capsuleIndicat ions:Chronic diarrhea TAKE 1 CAPSULE BY MOUTH EVERY 8 HOURS WITH FOOD NEEDED FOR GAS 90 capsule 2 024 Active sertraline (Zoloft) 100 MG tablet Take 100 mg by mouth in the morning. Active sertraline (Zoloft) 50 MG tablet Take 50 mg by mouth in the morning. Active melatonin tablet Take 1 mg by mouth if needed at bedtime for sleep. Active hydroxychloroq uine (Plaquenil) 200 MG tablet Take 200 mg by mouth 2 times daily. 023 Active ezetimibe (Zetia) 10 MG tablet Take 10 mg by mouth in the morning. 024 Active colchicine 0.6 MG tablet Take 0.6 mg by mouth every other day. Active Blood Glucose Monitoring Suppl (Vidatronic Verio Flex System) w/Device kit USE DIRECTED TO TEST BLOOD SUGAR TWICE DAILY Active allopurinol (Zyloprim) 300 MG tablet Take 300 mg by mouth in the morning. Active doxepin (SINEquan) 25 MG capsuleIndicat ions:Chronic pruritus TAKE 1 CAPSULE BY MOUTH AT BEDTIME 90 capsule 1 Active chlorthalidone (Hygroton) 25 MG tablet TAKE 1 TABLET BY MOUTH EVERY MORNING 90 tablet 1 024 Active gabapentin (Neurontin) 300 MG capsuleIndicat ions:Pain Take 1 capsule by mouth twice daily in the morning and in the evening 60 capsule 1 025 Active Ozempic, 0.25 or 0.5 MG/DOSE, 2 MG/3ML solution pen-injector INJECT 0.5 MG SUBCUTANEOUSLY EVERY 7 DAYS IN THE ABDOMEN, THIGHS, OR UPPER ARM, ROTATE INJECTION SITES. 3 mL 2 025 Active Ozempic, 0.25 or 0.5 MG/DOSE, 2 MG/3ML solution pen-injector INJECT 0.25 MG SUBCUTANEOUSLY EVERY 7 DAYS IN THE ABDOMEN, THIGHS OR UPPER ARM. ROTATE INJECTION SITES. 024 2024 Discontinued Active Problems Problem Noted Date Diagnosed Date Encounter for screening mamm ogram for malignant neoplasm of breast 08/13/2024 ZOEY (obstructive sleep apnea) 04/30/2024 Assessment & Plan (04/30/2024 3:23 PM EDT): Sleep studies will be ordering today after results likely proper CPAP prescription and referral to sleep medicine Pelvic pain 03/29/2024 Assessment & Plan (08/13/2024 1:13 PM EDT): Being follow by [facility] US is pending Vaginal pain 03/29/2024 Rectal [...] on scalp once per day and FU area relief pilot. Otitis externa 12/16/2022 Assessment & Plan (12/16/2022 [...] exercise, life style modifications, diet, referral to injection specialist. Discussed re lower calorie intake, increase dietary fiber Pt agreed to be referred to dietitian. 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 04/30/2024 Encounters Date Type Department Care Team Description 01/11/2025 Telephone [facility] [address] [place] [address] Violeta oBo MD [facility] 01/04/2025 Refill [facility] [address] [place] [address] Violeta Boo MD 01/01/2025 Telephone [facility] [address] [place] [address] Violeta Boo MD [facility] Lab request 12/27/2024 Telephone [facility] [address] [place] [phone] Viloeta Boo MD Appointment Request 12/26/2024 Telephone [facility] [address] [place] [phone] Violeta Boo MD Reasonable Accommodation (I called the patient regarding a reasonable accommodation request, from [facility] the grafter. The form lists the patient's medical conditions, but it does not state what the accommodation is. There was no answer, and I reached a recording stating that the person's voicemail is not not set up. I then called her nurse behavioral health care, Nikita, and she stated that she is not sure of what the patient is requesting. She agreed to ask the patient to return my call at ext [phone].) 12/24/2024 Telephone [facility] [address] [place] [address] Violeta Boo MD call back required 12/20/2024 Telephone [facility] [address] [place] [phone] Violeta Boo MD [facility] walker needed. 12/20/2024 Telephone [facility] [address] [place] [address] Violeta Boo MD 12/18/2024 Telephone [facility] [address] [place] [address] Emerald King [place] Appointment Request 12/18/2024 Telephone [facility] [address] [place] [phone] Violeta Boo MD Durable Medical Equipment 12/14/2024 Refill [facility] [address] [place], [place] [phone] Violeta Boo MD Pain 12/14/2024 Telephone [facility] [address] [place] [address] Violeta Boo MD New Med Request 12/07/2024 Telephone [facility] [address] [place] [address] Violeta Boo MD Referral 11/30/2024 Telephone [facility] [address] [place] [address] Emerald King [place] dme wheel chair 11/23/2024 Telephone [facility] [address] [place] [address] Violeta Boo MD Referral 11/20/2024 Telephone [facility] [address] [place] [address] Violeta Boo MD Durable Medical Equipment 11/02/2024 Refill [facility] [address] [place] [address] Violeta Boo MD Pain 10/25/2024 Telephone [facility] [address] [place] [address] Violeta Boo MD Med Refill 10/21/2024 Refill [facility] [address] [place] [address] Violeta Boo MD Pain from Last 3 Months Immunizations Name Administration [...] SARS-CoV-2, Unspecified 08/26/2022,03/31/2022, Tdap 01/29/2013 Zoster, Recombinant 11/29/2019, 0,08/22/2019,08/22 Zoster, live 01/14/2015 Family History Medical History [...] Description 01/25/2025 9:00 AM EDT Office Visit [facility] [address] [place] [address] Caden, Angella, OD [address] [place] [address] 02/05/2025 9:15 AM EDT Office Visit [facility] [address] [place] [address] Violeta Boo MD [address] [place] [address] Health Maintenance Due Date Last Done Comments [...] Procedure Name Priority Date/Time Associated Diagnosis Comments BI MAMMOGRAM SCREENING TOMOSYNTHESIS BILATERAL Routine 08/30/2024 9:10 AM EDT POCT GLYCATED HEMOGLOBIN, TOTAL Routine 08/13/2024 10:31 AM EDT Prediabetes HM COLONOSCOPY Routine 06/11/2022 LIPID PANEL, STANDARD Routine 03/15/2022 9:22 AM EDT BILLY HISTORICAL HEPATITIS C ANTIBODY RFLX Routine 01/02/2020 10:23 AM EST from Last 3 Months or Most Recently Relevant to Health Maintenance Results * BI Mammogram Screening Tomosynthesis Bilateral (08/30/2024 9:10 AM EDT) Anatomical Region Laterality Modality Breast Bilateral Mammography 08/30/2024 9:10 AM EDT Narrative 09/11/2024 12:30 PM EDT ? [facility] [place] ? [address] ?[place] [address] ? Mammography Report ? Signed with Addenda ? Patient: Violeta Alvarenga V ?MR#: MM ?? [id number] ? : 1950 ?Acct:[id number] ? Age/Sex: 74 / F ?ADM Date: 08/30/ ? Loc: HO.MAMMO ? Attending Dr: Violeta Pascual MD ? Ordering Physician: Violeta Boo MD ?Results: ?? 2Benign Findings ? Date of Service: 08/30/ ?Follow Up: 1 Year From Orig ?? inal Mammogram ? Procedure(s): MM tomosynthesis screening BI ?? Accession Number(s): [id number] ? cc: Violeta Boo MD ?ADDENDUM ? [...] next mammogram. ? Electronically signed by: ??Radhika oDuglas DO ??09/11/2024 12:27 PM EDT ?? RP ? Dictated By: ?Radhika Douglas DO ? Signed By: ?<Electronically signed by Radhika Douglas, DO in OV> ? 09/11/24 1227 ? DD/ 0910 ? TD/TT: 08/30/24 0925 ? Digital Marketing Intern: ? Procedure Note Donotuseinterpreter, Image - 09/14/2024 [place] [facility] [address] [place] [address] [place] [address] Mammography Report Signed with Addenda Patient: Violeta Alvarenga VMR#: [id number] : 2Acct:[id number] Age/Sex: 74 / FADM Date: 08/30/24 Loc: HO.MAMMO Attending Dr: Violeta Pascual MD Ordering Physician: Violeta Boo MDResults: 2Benign Findings Date of Service: 08/30/24Follow Up: 1 Year From Orig inal Mammogram Procedure(s): MM tomosynthesis screening BI Accession Number(s): [id number] cc: Violeta Boo MD ADDENDUM ADDENDUM #1 [...] Radhika Douglas DO 09/11/2024 12:27 PM EDT RP Dictated By: Radhika Douglas DO Signed By: <Electronically signed by Radhika Douglas DO in OV> 09/11/24 1227 DD/ 9 TD/TT: 08/30/24924 Digital Marketing Intern: Violeta Pascual MD IMG BI PROCEDURES Shemar daylin Result - Final * POCT HGB A1C (08/13/2024 10:31 AM EDT) Pathologist [facility] Hemoglobin A1C 6.0 4.0 - 6.0 % QC Media Lot # [id number] Lot# Expiration Date 6,922 Blood 08/13/2024 10:3 1 AM EDT Violeta Pascual MD POINT OF CARE TEST [...] in the ?? estimation of LDL-C. ?? Madi WADE et al. JUAN LUIS. 2013;310(19): 8980-4155 ?? (http://[employer].Create/faq/ZCA209) Non-HDL Cholesterol 124 <130 mg/dL (calc) [facility] Comment: For patients with diabetes plus 1 major ASCVD risk ?? factor, treating to a non-HDL-C goal of <100 mg/dL ?? (LDL-C of <70 mg/dL) is considered a therapeutic ?? option. Triglycerides 190(H) <150 mg/dL [facility] 03/15/2022 9:22 AM EDT Leonard Perez MD LAB BLOOD ORDERABL ES Final Result Performing Organization Address [facility] de Phone Number [facility] [address] * HEPATITIS C ANTIBODY RFLX (01/02/2020 10:23 AM EST) HEPATITIS C ANTIBODY NONREACTIVE NONREACTIVE [facility] Comment: Antibodies to HCV not detected; does not exclude early acute HCV infection. 01/02/2020 10:2 3 AM EST Historical Provider HISTORICAL/NON ORDERABLE LABS Final Result Performing Organization Address [facility] de Phone Number [facility] [address] from Last 3 Months or Most Recently Relevant to Health Maintenance Insurance [facility] DUAL COMPLETE Care Teams Salvage Laborer Relationship Specialty Start Date End Date Violeta Boo MD [address] [place] [address] PCP - General Family Medicine 05/21/22
--- OUTSIDE RECORDS SUMMARY | 2025-01-14 10:53 | XMS_ITS | Encounter Summary ---
Author Organization [employer] Address [address] [facility] 7 [place] [address] Care Team Providers Care Sack Repairer Name Role Phone Violeta Boo MD Primary Care Provide r Reason for Visit * Reason Onset Date Comments Durable Medical Equipment 11/20/2024 Encounter Details Date Type Department Care Team ([facility] st Contact Info) Description 11/20/2024 Telephone [facility] [address] [place] [address] Violeta Boo MD [address] [place], [place] [phone] Durable Medical Equipment Social History Tobacco Use [...] any questions you can contact pt at [phone]. (Kazakh Speaker) documented in this encounter Plan of Treatment Upcoming Encounters Date Type Department Care Team (Late st Contact Info) Description 01/25/2025 9:00 AM EDT Office Visit [facility] OPTOMETRY [address] [place] [address] Caden, Angella, OD [address] [place] [address] 02/05/2025 9:15 AM EDT Office Visit [facility] [address] [place] [address] Violeta Boo MD [address] [place] [address] documented as of this encounter Visit Diagnoses Not on filedocumented in this encounter Additional Health Concerns Assessment Noted Time PHQ-9 Depression Total Score: 17 024 11:23 AM EDT documented as of this encounter Care Teams Sack Repairer Relationship Specialty Start Date End Date Violeta Boo MD [address] [place] [address] PCP - General Family Medicine 05/21/22 documented as of this encounter
--- OUTSIDE RECORDS SUMMARY | 2025-01-14 10:53 | XMS_ITS | Encounter Summary ---
Author Organization [facility] Address [address] [place] [address] Phone Care Team Providers Care Cementing Machine Operator Name Role Phone Violeta Boo MD Primary Care Provide r Encounter Details Date Type Department Care Team (Late st Contact Info) Description 03/22/2023 Documentation Only [facility] [address] [place] [phone] Jazmin Powell PA Social History Tobacco Use Types Packs/Day Years [...] Visit [facility] [address] [place] [phone] Shailesh Vallejo MD [address] [place] [address] [place] [phone] documented as of this encounter Visit Diagnoses Not on filedocumented in this encounter Care Teams Cementing Machine Operator Relationship Specialty Start Date End Date Violeta Boo MD [address] [place] [phone] PCP - General Internal Medicine 03/21/23 documented as of this encounter
--- OUTSIDE RECORDS SUMMARY | 2025-01-14 10:53 | XMS_ITS | Encounter Summary ---
Author Organization [employer] Address [address] [facility] 7t [place] [address] Care Team Providers Care Respiratory Therapy Technician Name Role Phone Violeta Boo MD Primary Care Provide r Encounter Details Date Type Department Care Team (Late Contact Info) Description 04/26/[address] [facility] MED [facility] PEDS [address] [place], [place] [phone] Brittany Epps LPN Social History Tobacco Use [...] 01/25/2025 9:00 AM EDT Office Visit [facility] OPTOMETRY [address] [place], [place] [phone] Caden, Angella, OD [address] [place], [place] [phone] 02/05/2025 9:15 AM EDT Office Visit [facility] MEDICINE [address] [place] [address] Violeta Boo MD [address] [facility] [place] [address] documented as of this encounter Procedures Procedure Name Priority Date/Time Associated Diagnosis Comments XR LUMBAR SPINE 2-3 VIEWS Routine 05/05/2023 12:38 PM EDT documented in this encounter Results * XR Lumbar Spine 2-3 Views (05/05/2023 12:38 PM EDT) Anatomical Region Laterality Modality Spine, L-spine Radiographic Rena ging 05/05/2023 12:3 8 PM EDT Narrative 05/17/2023 7:08 PM EDT ? [facility] ?[address] ?[place] [address] ?XRay Report ? Signed ? Patient: Violeta Alvarenga V ?MR#: MM ?? [id number] ? : 1950 ?Acct:[id number] ? Age/Sex: 72 / F ?ADM Date: 05/05/23 ? Loc: HO.XRAY ? Attending Dr: Violeta Pascual MD ? Ordering Physician: Violeta Boo MD ?? Date of Service: 05/05/23 ?? Procedure(s): XR lumbar spine 2-3V ?? Accession Number(s): [id number] ? cc: Violeta Boo MD ? EXAMINATION: [...] by Amanda Hernandez MD in OV> ? 05/17/23 1905 ? DD/ 1238 ? TD/TT: ? Restaurant Operations Manager: SANA ? Procedure Note Jaqueline, Image - 05/17/[address] [address] XRay Report Signed Patient: Violeta Alvarenga VMR#: [id number] : 1950cct:[id number] Age/Sex: 72 / FADM Date: 05/05/23 Loc: HO.XRAY Attending Dr: Violeta Pascual MD Ordering Physician: Violeta Boo MD Date of Service: 05/05/23 Procedure(s): XR lumbar spine 2-3V Accession Number(s): [id number] cc: Violeta Boo MD EXAMINATION: XR LUMBOSACRAL [...] in OV> 05/17/23 1905 DD/ 1238 TD/TT: Restaurant Operations Manager: SANA [facility] External Provider IMG XR PROCEDURES Edited Result - Final documented in this encounter Visit Diagnoses Not on filedocumented in this encounter Care Teams Respiratory Therapy Technician Relationship Specialty Start Date End Date Violeta Boo MD [address] [place] [phone] PCP - General Family Medicine 05/21/22 documented as of this encounter
--- OUTSIDE RECORDS SUMMARY | 2025-01-14 10:53 | XMS_ITS | Encounter Summary ---
Author Organization [facility] [place], Address [address] [place] [address] Phone Care Team Providers Care Balance And Hairspring Assembler Name Role Phone Violeta Boo MD Primary Care Provide r Encounter Details Date Type Department Care Team (Late st Contact Info) Description 08/27/2024 Documentation Only [facility] [address] [place] [phone] Rowena Knolwes [address] [place] [address] Social History Tobacco Use Types [...] Visit [facility] [address] [place] [address] Shailesh Valleoj MD [address] [place] [address] [place] [phone] documented as of this encounter Visit Diagnoses Not on filedocumented in this encounter Care Teams Balance And Hairspring Assembler Relationship Specialty Start Date End Date Violeta Boo MD [address] [place] [phone] PCP - General Internal Medicine 03/21/23 documented as of this encounter
--- OUTSIDE RECORDS SUMMARY | 2025-01-14 10:54 | XMS_ITS | Encounter Summary ---
Author Organization [employer] Address [address] [facility] 7 [place] [address] Care Team Providers Care Ophthalmic Lens Inspector Name Role Phone Violeta Boo MD Primary Care Provide r Reason for Visit * Reason Onset Date Comments Durable Medical Equipment 12/18/2024 Encounter Details Date Type Department Care Team ([facility] st Contact Info) Description 12/18/2024 Telephone [facility] [address] [place] [address] Violeta Boo MD [address] [place] [address] Durable Medical Equipment Social History Tobacco Use [...] encounter Miscellaneous Notes * Telephone Encounter - Rubia Cain - 01/10/2025 1:13 PM EST DME for Walker signed and faxed to [facility] Flotation Tender Helper . Confirmation received and sent to scan. If patient calls to check status on above, please advise them to contact [facility]. . * Telephone Encounter - Rubia Cain - 12/20/2024 4:05 PM EST DME RX for Walker generated and placed on providers desk for signature. * Telephone Encounter - Maddi Boggs - 12/18/2024 11:54 AM EST Tc from pt stating she was contacted for a wheelchair but pt denied. Pt stated she needs a walker. If any questions contact pt at [phone] documented in this encounter Plan of Treatment Upcoming Encounters Date Type Department Care Team (Late st Contact Info) Description 01/25/2025 9:00 AM EDT Office Visit [facility] OPTOM[facility] [address] [place] [address] Angella Negrete, OD [address] [place], [place] [phone] 02/05/2025 9:15 AM EDT Office Visit [facility] [address] [place], [place] [phone] Violeta Boo MD [address] [place], [place] [phone] documented as of this encounter Visit Diagnoses Not on filedocumented in this encounter Additional Health Concerns Assessment Noted Time PHQ-9 Depression Total Score: 17 024 11:23 AM EDT documented as of this encounter Care Teams Ophthalmic Lens Inspector Relationship Specialty Start Date End Date Violeta Boo MD [address] [place] [phone] PCP - General Family Medicine 05/21/22 documented as of this encounter
--- OUTSIDE RECORDS SUMMARY | 2025-01-14 10:54 | XMS_ITS | Encounter Summary ---
Author Organization [employer] Address [address] [facility] 7 [place] [address] Care Team Providers Care Carton Stapler Name Role Phone Violeta Boo MD Primary Care Provide r Reason for Visit * Reason Onset Date Comments [facility] request 01/01/2025 Encounter Details Date Type Department Care Team ([facility] st Contact Info) Description 01/01/2025 Telephone [facility] MEDICINE [address] [place] [address] Violeta Boo MD [address] [place] [address] [facility] request Social History Tobacco Use Types Packs/Day Years [...] Telephone Encounter - Leda Ruiz RN - 01/01/2025 4:27 PM EST RN received incoming fax from [employer] requesting PCP signature for GI infections testing. RN called [facility] [phone] to inquire on where this order request cam from as patient has NOT seen PCP since 07/2024 and this lab was not ordered by PCP. RN was informed the patient contacted this [facility] and requested to have the testing performed and they are looking for PCP authorization. RN advised office, PCP will not be signing the form as the patient has not been seen since for any GI concern recently. RN advised [employer] patient has an upcoming appointment on 02/05/25 with PCP and if patient is having any GI issues she should discuss them with the provider at the appointment. Tee De La Vega verbalized understanding and reports they will inform the patient. Tee De La Vega to f/u PRN. documented in this encounter Plan of Treatment Upcoming Encounters Date Type Department Care Team (Late st Contact Info) Description 01/25/2025 9:00 AM EDT Office Visit [facility] OPTOMETRY [address] [place] [address] Angella Negrete, OD 230 [facility] [place] [address] 02/05/2025 9:15 AM EDT Office Visit [facility] MEDICINE [address] [place], [place] [phone] Violeta Boo MD [address] [place], [place] [phone] documented as of this encounter Visit Diagnoses Not on filedocumented in this encounter Additional Health Concerns Assessment Noted Time PHQ-9 Depression Total Score: 17 024 11:23 AM EDT documented as of this encounter Care Teams Carton Stapler Relationship Specialty Start Date End Date Violeta Boo MD [address] [place], [place] [phone] PCP - General Family Medicine 05/21/22 documented as of this encounter
--- OUTSIDE RECORDS SUMMARY | 2025-01-14 10:54 | XMS_ITS | Encounter Summary ---
Author Organization [employer] Address [address] [place] [address] [address] [place] [address] Care Team Providers Care Car Runner Name Role Phone Violeta Boo MD Primary Care Provide r Reason for Visit * Reason Onset Date Comments Reasonable Accommodation 12/26/2024 I arellano d the patient regarding a reasonable accommodation request, from [employer] [place]. The form lists the patient's medical conditions, but it does not state what the accommodation is. There was no answer, and I reached a recording stating that the person's voicemail is not not set up. I then called her care management assistant, Nikita, and she stated that she is not sure of what the patient is requesting. She agreed to ask the patient to return my call at ext [phone]. Encounter Details Date Type Department Care Team (Late st Contact Info) Description 12/26/2024 Telephone [facility] MEDICINE 230 [place], [place] [phone] Violeta Boo MD [address] [place], [place] [phone] Reasonable Accommodation (I called the patient regarding a reasonable accommodation request, from [employer] [facility] [place]. The form lists the patient's medical conditions, but it does not state what the accommodation is. There was no answer, and I reached a recording stating that the person's voicemail is not not set up. I then called her care management assistant, Nikita, and she stated that she is not sure of what the patient is requesting. She agreed to ask the patient to return my call at ext [phone].) Social History Tobacco Use Types Packs/Day Years [...] is your housing situation today? I have chantalmeche alexandre 01/25/[address] you [...] encounter Miscellaneous Notes * Telephone Encounter - Lina Schaeffer MA - 12/26/2024 10:33 AM EST I called the patient regarding a reasonable accommodation request, from [employer] [facility] [place]. The form lists the patient's medical conditions, but it does not state what the accommodation is. There was no answer, and I reached a recording stating that the person's voicemail is not not set up. I then called her care management assistant, Nikita, and she stated that she is not sure of what the patient is requesting. She agreed to ask the patient to return my call at ext [phone]. documented in this encounter Plan of Treatment Upcoming Encounters Date Type Department Care Team (Late st Contact Info) Description 01/25/2025 9:00 AM EDT Office Visit [facility] OPTOMETRY [address] [place] [address] Caden, Angella, OD 230 [place] [address] 02/05/2025 9:15 AM EDT Office Visit [facility] MEDICINE 230 [place] [address] Violeta Boo MD 230 [place] [address] documented as of this encounter Visit Diagnoses Not on filedocumented in this encounter Additional Health Concerns Assessment Noted Time PHQ-9 Depression Total Score: 17 024 11:23 AM EDT documented as of this encounter Care Teams Car Runner Relationship Specialty Start Date End Date Violeta Boo MD 230 [place] [address] PCP - General Family Medicine 05/21/22 documented as of this encounter
--- OUTSIDE RECORDS SUMMARY | 2025-01-14 10:54 | XMS_ITS | Encounter Summary ---
Author Organization [facility] Address [address] [place] [address] 7t [place] [address] Care Team Providers Care Obstetrics Technician Name Role Phone Violeta Boo MD Primary Care Provide r Encounter Details Date Type Department Care Team (Latest Contact Info) Description 05/27/2022 Abstract [facility] CONVERSION[facility] Dental, Provider, DDS Social History Tobacco [...] Description 01/25/2025 9:00 AM EDT Office Visit [facility] OPTOMETRY [address] [place] [address] Angella Negrete, OD 230 [place] [address] 02/05/2025 9:15 AM EDT Office Visit [facility] MEDICINE 230 [place] [address] Violeta Boo MD 230 [place] [address] documented as of this encounter Visit Diagnoses Not on filedocumented in this encounter Care Teams Obstetrics Technician Relationship Specialty Start Date End Date Violeta Boo MD 230 [place] [address] PCP - General Family Medicine 05/21/22 documented as of this encounter
--- OUTSIDE RECORDS SUMMARY | 2025-01-14 10:54 | XMS_ITS | Encounter Summary ---
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 did cancel appt documented in this encounter Plan of Treatment Upcoming Encounters Date Type Department Care Team (Late st Contact Info) Description 01/25/2025 9:00 AM EDT Office Visit [facility] OPTOMETRY [address] [place] [address] Caden, Angella, OD 230 [place] [address] 02/05/2025 9:15 AM EDT Office Visit [facility] MEDICINE 230 [place] [address] Violeta Boo MD [address] [place] [address] documented as of this encounter Visit Diagnoses Not on filedocumented in this encounter Care Teams Sales Program Manager Relationship Specialty Start Date End Date Violeta Boo MD [address] [place] [address] PCP - General Family Medicine 05/21/22 documented as of this encounter
--- OUTSIDE RECORDS SUMMARY | 2025-01-14 10:54 | XMS_ITS | Encounter Summary ---
Author Organization [facility], Address [address] [place] [address] Phone Care Team Providers Care Leak Inspector Name Role Phone Violeta Boo MD Primary Care Provide r Encounter Details Date Type Department Care Team (Late st Contact Info) Description 05/05/2022 Documentation Only [facility] [address] [place] [address] Shailesh Vallejo MD [address] [place] [address] [place] [address] Social History Tobacco Use Types [...] Visit [facility] [address] [place] [address] Shailesh Vallejo MD [address] [place] [address] [place] [address] documented as of this encounter Visit Diagnoses Not on filedocumented in this encounter Care Teams Leak Inspector Relationship Specialty Start Date End Date Violeta Boo MD [address] [place] [phone] PCP - General Internal Medicine 03/21/23 documented as of this encounter
--- OUTSIDE RECORDS SUMMARY | 2025-01-14 10:54 | XMS_ITS | Encounter Summary ---
Author Organization [email or web address] Address [address] [facility] 7 [place] [address] Care Team Providers Care Clay Hoister Name Role Phone Violeta Boo MD Primary Care Provide r Reason for Visit * Reason Onset Date Comments New Med Request 12/14/2024 Encounter Details Date Type Department Care Team ([facility] st Contact Info) Description 12/14/[address] [facility] MEDICINE [address] [place] [address] Violeta Boo MD [address] [place] [address] New Med Request Social History Tobacco Use Types Packs/Day [...] Telephone Encounter - Leda Ruiz RN - 12/18/2024 12:00 PM EST TC placed to patient [phone] in regards to below message via [employer] (Justin #[id number]). Patient reports she was to be Rx'd a rollator walker but was Rx'd a wheelchair instead. Patient reports the wheelchair RX was sent to [facility] however she received a call from [facility] informing her that they do not accept her insurance. Patient reports she wants a rollator walker to be Rx'd instead (see TC on 09/07/25). Please f/u in regards to DME. * Telephone Encounter - Maddi Boggs - 12/18/2024 11:53 AM EST Tc from pt requesting to speak to nurse regarding Ozempic. No further details provided. Contact pt at [phone] (croatian) * Telephone Encounter - Leda Ruiz RN - 12/14/2024 9:57 AM EST TC placed to [facility] pharmacy to inquire on RX prescriber. RN was informed patient receives Ozempic from Shaheen Yi NP and patient last received medication on 10/31/24 for a 28 day supply. RN called patient [phone] in regards to above message. Patient reports he sees this provider on her tablet . Patient reports she has never seen this doctor in person and is not sure what kind of doctor he is. Patient reports she called Shaheen's office at [phone] to request a dose increase and was advised to call PCP office. RN placed patient on hold and called [phone] to inquire further. RNwas informed the facility is called [facility] and their home office is in [place], they are a TELEHEALTH service thru the patients insurance. RN was informed they have not heard from the patientsince August 2024 and usually they start medications and advise the patient to notify the PCP office and inquire if the PCP will continue the medications. Per chart review, patient has NOT notified PCP of receiving ozempic via this service. Antonia reports they can schedule a f/u appointment with patient and provider to discuss Ozempic medication and possibly refills. RN conference called with patient and [facility] who scheduled the patient for an appointment on 12/18/24 at 9:30am. Patient agreed to appointment date and time. Patient to f/u PRN. * Telephone Encounter - Demi Sanchez - 12/14/2024 9:27 AM EST Tc from pt requesting medication increased (Ozempic, 0.25 or 0.5 MG/DOSE, 2 MG/3ML solution pen-injector) as she been on same dose for too long as she states. documented in this encounter Plan of Treatment Upcoming Encounters Date Type Department Care Team (Late st Contact Info) Description 01/25/2025 9:00 AM EDT Office Visit [facility] OPTOMETRY [address] [place], [place] [phone] Angella Negrete, OD [address] [place], [place] [phone] 02/05/2025 9:15 AM EDT Office Visit [facility] MEDICINE [address] [place], [place] [phone] Violeta Boo MD [address] [place] [address] [phone] documented as of this encounter Visit Diagnoses Not on filedocumented in this encounter Additional Health Concerns Assessment Noted Time PHQ-9 Depression Total Score: 17 024 11:23 AM EDT documented as of this encounter Care Teams Clay Hoister Relationship Specialty Start Date End Date Violeta Boo MD [address] [place] [address] [phone] PCP - General Family Medicine 05/21/22 documented as of this encounter
--- OUTSIDE RECORDS SUMMARY | 2025-01-14 10:54 | XMS_ITS | Encounter Summary ---
Author Organization [employer] Address [address] [facility] 7t [place] [address] Care Team Providers Care Retail Leasing Agent Name Role Phone Violeta Boo MD Primary Care Provide r Reason for Visit * Reason Onset Date Comments Reasonable Accommodation Request 10/25/2022 I called regarding a reasonable accommodation form, from [employer]. The pt states that she will be getting a scooter, because she is no longer able to use a cane or a walker. She is requesting an apartment with elevator accessibility, because it would be easier for her to get in and out of her apartment. Encounter Details Date Type Department Care Team ([facility] st Contact Info) Description 10/25/2022 Telephone [facility] [address] [place] [address] Mak[place], [place] Reasonable Accommodation Request (I called regarding a reasonable accommodation form, from [employer]. The pt states that she will be [...] Description 01/25/2025 9:00 AM EDT Office Visit [facility] OPTOMETRY [address] [place] [address] Angella Negrete, OD 230 [place] [address] 02/05/2025 9:15 AM EDT Office Visit [facility] MEDICINE [address] [place] [address] Violeta Boo MD 230 [place] [address] documented as of this encounter Visit Diagnoses Not on filedocumented in this encounter Care Teams Retail Leasing Agent Relationship Specialty Start Date End Date Violeta Boo MD 230 [place] [address] PCP - General Family Medicine 05/21/22 documented as of this encounter
--- OUTSIDE RECORDS SUMMARY | 2025-01-14 10:54 | XMS_ITS | Encounter Summary ---
Author Organization [employer] Address [address] [facility] 7t [place] [address] Care Team Providers Care Singer And Unloader Name Role Phone Violeta Boo MD Primary Care Provide r Encounter Details Date Type Department Care Team ([facility] st Contact Info) Description 11/10/2023 Abstract [facility] MEDICINE [address] [place], [place] [phone] Violeta Boo MD [address] [place] [address] Social History Tobacco Use Types Packs/Day Years [...] Description 01/25/2025 9:00 AM EDT Office Visit [facility] OPTOMETRY [address] [place] [address] Caden, Angella, OD 230 [place] [address] 02/05/2025 9:15 AM EDT Office Visit [facility] MEDICINE [address] [place] [address] Violeta Boo MD [address] [place] [address] documented as of this encounter Visit Diagnoses Not on filedocumented in this encounter Care Teams Singer And Unloader Relationship Specialty Start Date End Date Violeta Boo MD [address] [place] [address] PCP - General Family Medicine 05/21/22 documented as of this encounter
--- OUTSIDE RECORDS SUMMARY | 2025-01-14 10:54 | XMS_ITS | Encounter Summary ---
Author Organization [employer] Address [address] [place] [address] 7 [place] [address] Care Team Providers Care Tile Classifier Name Role Phone Violeta Boo MD Primary Care Provide r Encounter Details Date Type Department Care Team (Late Contact Info) Description 08/03/2023 Orders Only [facility] MEDICINE [address] [place] [address] Provider, MD Libra Social History Tobacco Use [...] Description 01/25/2025 9:00 AM EDT Office Visit [facility] OPTOMETRY [address] [place] [address] Angella Negrete, OD 230 [place] [address] 02/05/2025 9:15 AM EDT Office Visit [facility] MEDICINE [address] [place] [address] Violeta Boo MD [address] [place] [address] documented as of this encounter Procedures Procedure Name Priority Date/Time Associated Diagnosis Comments HM COLONOSCOPY Routine 06/11/2022 documented in this encounter Results * Hm Colonoscopy (06/11/2022) Historical Provider [facility] Final Result documented in this encounter Visit Diagnoses Not on filedocumented in this encounter Care Teams Tile Classifier Relationship Specialty Start Date End Date Violeta Boo MD [address] [place] [address] PCP - General Family Medicine 05/21/22 documented as of this encounter
--- OUTSIDE RECORDS SUMMARY | 2025-01-14 10:54 | XMS_ITS | Encounter Summary ---
Author Organization [employer] Address [address] [facility] 7t [place] [address] Care Team Providers Care Building Drafter Name Role Phone Violeta Boo MD Primary Care Provide r Reason for Visit * Reason Onset Date Comments Appointment Request 12/18/2024 Encounter Details Date Type Department Care Team ([facility] st Contact Info) Description 12/18/2024 Telephone [facility] MEDICINE [address] [place] [address] Emerald King [place] Appointment Request Social History Tobacco Use Types [...] Telephone Encounter - Emerald King MA - 12/18/2024 1:49 PM EST TC- Patient in regards of message below lvm for patient to call back and branden appt . Patient last saw PCP on 08/13/24 and no recall is placed in chart. Please review with provider and contact patient for a RV appointment. Thank you! documented in this encounter Plan of Treatment Upcoming Encounters Date Type Department Care Team (Late st Contact Info) Description 01/25/2025 9:00 AM EDT Office Visit [facility] OPTOMETRY [address] [place] [address] Caden, Angella, OD 230 [place] [address] 02/05/2025 9:15 AM EDT Office Visit [facility] MEDICINE [address] [place] [address] Violeta Boo MD [address] [place] [address] documented as of this encounter Visit Diagnoses Not on filedocumented in this encounter Additional Health Concerns Assessment Noted Time PHQ-9 Depression Total Score: 17 024 11:23 AM EDT documented as of this encounter Care Teams Building Drafter Relationship Specialty Start Date End Date Violeta Boo MD 230 [place] [address] PCP - General Family Medicine 05/21/22 documented as of this encounter
--- OUTSIDE RECORDS SUMMARY | 2025-01-14 10:54 | XMS_ITS | Encounter Summary ---
Author Organization [employer] Address [address] [place] [address] 7t [place] [address] Care Team Providers Care Power Lineman Technician Name Role Phone Violeta Boo MD Primary Care Provide r Encounter Details Date Type Department Care Team (Late Contact Info) Description 11/25/2022 Telephone [facility] MEDICINE 230 [place] [address] Violeta Boo MD 230 [place] [address] Social History Tobacco Use Types Packs/Day Years [...] [facility] OPTOMETRY [address] [place] [address] Angella Negrete, OD 230 [place] [address] 02/05/2025 9:15 AM EDT Office Visit [facility] MEDICINE [address] [place] [address] Violeta Boo MD [address] [place] [address] documented as of this encounter Visit Diagnoses Not on filedocumented in this encounter Care Teams Power Lineman Technician Relationship Specialty Start Date End Date Violeta Boo MD [address] [place], [place] [phone] PCP - General Family Medicine 05/21/22 documented as of this encounter
--- OUTSIDE RECORDS SUMMARY | 2025-01-14 10:54 | XMS_ITS | Encounter Summary ---
Author Organization [employer] Address 75 [facility] 7t [place] [address] Care Team Providers Care Network Analyst Name Role Phone Violeta Boo MD Primary Care Provide r Reason for Visit * Reason Onset Date Comments Augustine askew needed. 12/20/2024 Encounter Details Date Type Department Care Team ([facility] st Contact Info) Description 12/20/2024 Telephone [facility] MEDICINE [address] [place] [address] Violeta Boo MD [address] [place], [place] [phone] Augustine askew needed. Social History Tobacco Use Types Packs/Day Years [...] * Telephone Encounter - Rubia Cain - 01/04/2025 11:19 AM EST DME RX for Walker generated and placed on providers desk for signature. 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 documented in this encounter Plan of Treatment Upcoming Encounters Date Type Department Care Team (Late st Contact Info) Description 01/25/2025 9:00 AM EDT Office Visit [facility] OPTOMETRY [address] [place] [address] Caden, Angella, OD 230 [place] [address] 02/05/2025 9:15 AM EDT Office Visit [facility] MEDICINE [address] [place] [address] Violeta Boo MD [address] [place] [address] documented as of this encounter Visit Diagnoses Not on filedocumented in this encounter Additional Health Concerns Assessment Noted Time PHQ-9 Depression Total Score: 17 024 11:23 AM EDT documented as of this encounter Care Teams Network Analyst Relationship Specialty Start Date End Date Violeta Boo MD [address] [place] [address] PCP - General Family Medicine 05/21/22 documented as of this encounter
--- OUTSIDE RECORDS SUMMARY | 2025-01-14 10:54 | XMS_ITS | Encounter Summary ---
Author Organization [facility], Address [address] [place] [address] Phone Care Team Providers Care Drapery Inspector Name Role Phone Violeta Boo MD Primary Care Provide r Encounter Details Date Type Department Care Team (Late st Contact Info) Description 05/05/2022 Documentation Only [facility] [address] [place] [address] Shailesh Vallejo MD [address] [place] [address] [place] [address] Social History Tobacco Use Types [...] Visit [facility] [address] [place] [address] Shailesh Vallejo MD [address] [place] [address] [place] [address] documented as of this encounter Visit Diagnoses Not on filedocumented in this encounter Care Teams Drapery Inspector Relationship Specialty Start Date End Date Violeta Boo MD [address] [place] [phone] PCP - General Internal Medicine 03/21/23 documented as of this encounter
--- OUTSIDE RECORDS SUMMARY | 2025-01-14 10:54 | XMS_ITS | Encounter Summary ---
Author Organization [facility] Address [address] [place] [address] Phone Care Team Providers Care Laborer Petroleum Refinery Name Role Phone Violeta Boo MD Primary Care Provide r Encounter Details Date Type Department Care Team (Late st Contact Info) Description 2022 Office Communication [facility] [address] [place] [address] Shailesh Vallejo MD [address] [place] [address] [place] [address] Social History Tobacco Use Types [...] Visit [facility] [address] [place] [address] Shailesh Vallejo MD [address] [place] [address] [place] [address] documented as of this encounter Visit Diagnoses Not on filedocumented in this encounter Care Teams Laborer Petroleum Refinery Relationship Specialty Start Date End Date Violeta Boo MD [address] [place] [phone] PCP - General Internal Medicine 03/21/23 documented as of this encounter
--- OUTSIDE RECORDS SUMMARY | 2025-01-14 10:54 | XMS_ITS | Encounter Summary ---
Author Organization [employer] Address 75 [facility] 7t [place] [address] Care Team Providers Care Jewelry Facer Name Role Phone Violeta Boo MD Primary Care Provide r Reason for Visit * Reason Comments Med Refill Encounter Details Date Type Department Care Team ([facility] st Contact Info) Description 11/18/2022 Refill [facility] [address] [place] [address] Betsy Simmons CNM [address] [place] [address] Social History Tobacco Use Types Packs/Day Years [...] No answer, left V/M. Will retask to cliff nurses for second attempt * Telephone Encounter [...] Description 01/25/2025 9:00 AM EDT Office Visit [facility] OPT[facility] [address] [place], [place] [phone] Angella Negrete, OD 230 [place] [address] 02/05/2025 9:15 AM EDT Office Visit [facility] MEDICINE [address] [place], [place] [phone] Violeta Boo MD [address] [place], [place] [phone] documented as of this encounter Visit Diagnoses Not on filedocumented in this encounter Care Teams Jewelry Facer Relationship Specialty Start Date End Date Violeta Boo MD [address] [place], [place] [phone] PCP - General Family Medicine 05/21/22 documented as of this encounter
--- OUTSIDE RECORDS SUMMARY | 2025-01-14 10:54 | XMS_ITS | Encounter Summary ---
Author Organization [employer] Address 75 [facility] 7 [place] [address] Care Team Providers Care Business Information Analyst Name Role Phone Violeta Boo MD Primary Care Provide r Reason for Visit * Reason Onset Date Comments FYI 01/11/2025 Encounter Details Date Type Department Care Team ([facility] Contact Info) Description 01/11/2025 Telephone [facility] MED[facility]INE 230 [place] [address] Violeta Boo MD [address] [place], [place] [phone] FYI Social History Tobacco Use Types Packs/Day Years [...] encounter Miscellaneous Notes * Telephone Encounter - Luis Enrique Downs - 01/11/2025 3:23 PM EST TC from [place] with [facility] requesting continues glucose monitors . States will be faxing in forms that need to be filled out willy . documented in this encounter Plan of Treatment Upcoming Encounters Date Type Department Care Team (Late st Contact Info) Description 01/25/2025 9:00 AM EDT Office Visit [facility] OPT[facility] [address] [place] [address] Caden, Angella, OD [address] [place] [address] 02/05/2025 9:15 AM EDT Office Visit [facility] MED[facility] 230 [place] [address] Violeta Boo MD [address] [place] [address] documented as of this encounter Visit Diagnoses Not on filedocumented in this encounter Additional Health Concerns Assessment Noted Time PHQ-9 Depression Total Score: 17 08/13/ 024 11:23 AM EDT documented as of this encounter Care Teams Business Information Analyst Relationship Specialty Start Date End Date Violeta Boo MD [address] [place] [address] PCP - General Family Medicine 05/21/22 documented as of this encounter
--- OUTSIDE RECORDS SUMMARY | 2025-01-14 10:54 | XMS_ITS | Encounter Summary ---
Author Organization [facility] Address [address] [place] [address] Phone Care Team Providers Care Sales Training Coordinator Name Role Phone Violeta Boo MD Primary Care Provide r Encounter Details Date Type Department Care Team (Late st Contact Info) Description 10/22/2022 Documentation Only [facility] [address] [place] [phone] Jazmin Powell PA Social History Tobacco Use [...] Visit [facility] [address] [place] [address] Shailesh Vallejo MD [address] [place] [address] [place] [phone] documented as of this encounter Visit Diagnoses Not on filedocumented in this encounter Care Teams Sales Training Coordinator Relationship Specialty Start Date End Date Violeta Boo MD [address] [place] [phone] PCP - General Internal Medicine 03/21/23 documented as of this encounter
--- OUTSIDE RECORDS SUMMARY | 2025-01-14 10:54 | XMS_ITS | Encounter Summary ---
Author Organization [employer] Address 75 [facility] 7 [place] [address] Care Team Providers Care Licensed Master Social Worker Name Role Phone Violeta Boo MD Primary Care Provide r Reason for Visit * Reason Onset Date Comments Appointment Request 12/27/2024 Encounter Details Date Type Department Care Team ([facility] Contact Info) Description 12/27/2024 Telephone [facility] MED[facility]INE 230 [place] [address] Violeta Boo MD [address] [place], [place] [phone] Appointment Request Social History Tobacco Use Types [...] Telephone Encounter - Leda Ruiz RN - 12/27/2024 11:13 AM EST Noted. RN has added below request to appointment details for 02/05/25. * Telephone Encounter - Zaheer Cain - 12/27/2024 10:51 AM EST Tc from Alem with [facility] requesting for pcp to perform a cognitive test during appt 02/05 to determine weather pt has any decisional capacity or memory issues. If any questions you can contact Alem at [phone]. documented in this encounter Plan of Treatment Upcoming Encounters Date Type Department Care Team (Late st Contact Info) Description 01/25/2025 9:00 AM EDT Office Visit [facility] OPT[facility] [address] [place] [address] Angella Negrete, OD 230 [place] [address] 02/05/2025 9:15 AM EDT Office Visit [facility] MED[facility] [address] [place] [address] Violeta Boo MD [address] [place] [address] documented as of this encounter Visit Diagnoses Not on filedocumented in this encounter Additional Health Concerns Assessment Noted Time PHQ-9 Depression Total Score: 17 08/13/ 024 11:23 AM EDT documented as of this encounter Care Teams Licensed Master Social Worker Relationship Specialty Start Date End Date Violeta Boo MD 230 [place] [address] PCP - General Family Medicine 05/21/22 documented as of this encounter
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
--- OUTSIDE RECORDS SUMMARY | 2025-01-14 10:54 | XMS_ITS | Encounter Summary ---
Author Organization [employer] Address 75 [facility] 7t [place] [address] Care Team Providers Care Foot Gatherer Name Role Phone Violeta Boo MD Primary Care Provide r Encounter Details Date Type Department Care Team (Late Contact Info) Description 08/17/2023 Abstract [facility] MEDICINE 230 [place] [address] Violeta Boo MD 230 [place] [address] Social History Tobacco Use Types Packs/Day Years [...] 01/25/2025 9:00 AM EDT Office Visit [facility] OPTOMETRY [address] [place] [address] Angella Negrete, OD 230 [place], [place] [phone] 02/05/2025 9:15 AM EDT Office Visit [facility] MEDICINE 230 [place] [address] Violeta Boo MD 230 [place] [address] documented as of this encounter Visit Diagnoses Not on filedocumented in this encounter Care Teams Foot Gatherer Relationship Specialty Start Date End Date Violeta Boo MD [address] [place] [address] [phone] PCP - General Family Medicine 05/21/22 documented as of this encounter
--- OUTSIDE RECORDS SUMMARY | 2025-01-14 10:54 | XMS_ITS | Encounter Summary ---
Author Organization [facility] Address [address] [place] [address] Phone Care Team Providers Care Interactive Multimedia Designer Name Role Phone Violeta Boo MD Primary Care Provide r Encounter Details Date Type Department Care Team (Late st Contact Info) Description 12/24/2022 Documentation Only [facility] [address] [place] [phone] Jazmin Powell PA Social History Tobacco Use [...] Visit [facility] [address] [place] [phone] Shailesh Vallejo MD [address] [place] [address] [place] [phone] documented as of this encounter Visit Diagnoses Not on filedocumented in this encounter Care Teams Interactive Multimedia Designer Relationship Specialty Start Date End Date Violeta Boo MD [address] [place] [phone] PCP - General Internal Medicine 03/21/23 documented as of this encounter
--- OUTSIDE RECORDS SUMMARY | 2025-01-14 10:54 | XMS_ITS | Encounter Summary ---
Author Organization [employer] Address 75 [facility] 7t [place] [address] Care Team Providers Care Solderer Dipper Name Role Phone Violeta Boo MD Primary Care Provide r Reason for Visit * Reason Comments Med Refill Encounter Details Date Type Department Care Team ([facility] st Contact Info) Description 03/22/2024 Refill [facility] MEDICINE [address] [place] [address] Violeta Boo MD [address] [place] [address] Dermatitis Social History Tobacco Use Types Packs/Day [...] 9:00 AM EDT Office Visit [facility] OPTOMETRY [address] [place] [address] Caden, Angella, OD 230 [place] [address] 02/05/2025 9:15 AM EDT Office Visit [facility] MEDICINE [address] [place] [address] Violeta Boo MD [address] [place] [address] documented as of this encounter Visit Diagnoses Diagnosis Dermatitis Contact dermatitis and other eczema, due to unspecified cause documented in this encounter Care Teams Solderer Dipper Relationship Specialty Start Date End Date Violeta Boo MD [address] [place] [address] PCP - General Family Medicine 05/21/22 documented as of this encounter
--- OUTSIDE RECORDS SUMMARY | 2025-01-14 10:54 | XMS_ITS | Encounter Summary ---
Author Organization [employer] Address 75 [facility] 7t [place] [address] Care Team Providers Care Primary Special Educator Name Role Phone Violeta Boo MD Primary Care Provide r Reason for Visit * Reason Onset Date Comments Appt cancelation 03/02/2024 Encounter Details Date Type Department Care Team ([facility] st Contact Info) Description 03/02/2024 Telephone [facility] MEDICINE [address] [place] [address] Violeta Boo MD [address] [place], [place] [phone] Appt cancelation Social History Tobacco Use Types [...] 04/27 due to being referred to outside communication specialist documented in this encounter Plan of Treatment Upcoming Encounters Date Type Department Care Team (Late st Contact Info) Description 01/25/2025 9:00 AM EDT Office Visit [facility] OPTOMETRY [address] [place] [address] Caden, Angella, OD 230 [place] [address] 02/05/2025 9:15 AM EDT Office Visit [facility] MEDICINE [address] [place] [address] Violeta Boo MD [address] [place] [address] documented as of this encounter Visit Diagnoses Not on filedocumented in this encounter Care Teams Primary Special Educator Relationship Specialty Start Date End Date Violeta Boo MD [address] [place] [address] PCP - General Family Medicine 05/21/22 documented as of this encounter
--- OUTSIDE RECORDS SUMMARY | 2025-01-14 10:54 | XMS_ITS | Encounter Summary ---
Author Organization [employer] Address 75 [facility] 7 [place] [address] Care Team Providers Care Ship'S Electronic Warfare Officer Name Role Phone Violeta Boo MD Primary Care Provide r Reason for Visit * Reason Onset Date Comments call back required 12/24/2024 Encounter Details Date Type Department Care Team ([facility] st Contact Info) Description 12/24/2024 Telephone [facility] MEDICINE [address] [place] [address] Violeta Boo MD 230 [place] [address] call back required Social History Tobacco Use Types Packs/Day Years [...] Telephone Encounter - Leda Ruiz RN - 12/24/2024 11:52 AM EST TC returned to [facility] [phone] in regards to below message. [facility] advised patient does not havea healthcare proxy on file and has a 41% no show rate at [facility]. Alem advised RN cannot comment on medication compliance or decision making capacity as provider notes do not comment on patients ability. Alem advised last appointment with PCP was regarding chronic conditions and did not mention any concerns provider has in regards to patient. Alem to f/u PRN. * Telephone Encounter - Luis Enrique Downs - 12/24/2024 10:56 AM EST TC from alem with [facility] Adult Protective service requesting a call back regarding a few questions she has regarding pt . Looking to see if pt has decisional capacity ? 2. If there is a health care proxy on file ? 3. Is health care proxy invoked ? 4. Is the patient medication and appointment compliant ? 5. Does provider have any concerns for this patient? [facility] # [phone] ext [phone] documented in this encounter Plan of Treatment Upcoming Encounters Date Type Department Care Team (Late st Contact Info) Description 01/25/2025 9:00 AM EDT Office Visit [facility] OPTOMETRY [address] [place] [address] Caden, Angella, OD 230 [place] [address] 02/05/2025 9:15 AM EDT Office Visit [facility] MEDICINE [address] [place] [address] Violeta Boo MD 230 [place] [address] documented as of this encounter Visit Diagnoses Not on filedocumented in this encounter Additional Health Concerns Assessment Noted Time PHQ-9 Depression Total Score: 17 08/13/ 024 11:23 AM EDT documented as of this encounter Care Teams Ship'S Electronic Warfare Officer Relationship Specialty Start Date End Date Violeta Boo MD [address] [place] [address] [phone] PCP - General Family Medicine 05/21/22 documented as of this encounter
--- OUTSIDE RECORDS SUMMARY | 2025-01-14 10:54 | XMS_ITS | Encounter Summary ---
Author Organization [employer] Address 75 [facility] 7t [place] [address] Care Team Providers Care Field Party Manager Name Role Phone Violeta Boo MD Primary Care Provide r Reason for Visit * Reason Onset Date Comments Durable Medical Equipment 10/13/2023 Encounter Details Date Type Department Care Team ([facility] st Contact Info) Description 10/13/2023 Telephone [facility] MEDICINE 230 [place] [address] Violeta Boo MD [address] [place], [place] [phone] Durable Medical Equipment Social History Tobacco Use [...] * Telephone Encounter - Shay Navarro - 10/13/2023 12:59 PM EST Tc from requesting status on scripts for : 2xl Pullups Ensures Flavors Vanilla and [place] Gloves Large Wipes Pt states insurance fax over request. Please contact pt at [phone] Hungarian Speaker documented in this encounter Plan of Treatment Upcoming Encounters Date Type Department Care Team (Late st Contact Info) Description 01/25/2025 9:00 AM EDT Office Visit [facility] OPTOMETRY [address] [place] [address] Caden, Angella, OD 230 [place] [address] 02/05/2025 9:15 AM EDT Office Visit [facility] MEDICINE [address] [place] [address] Violeta Boo MD [address] [place] [address] documented as of this encounter Visit Diagnoses Not on filedocumented in this encounter Care Teams Field Party Manager Relationship Specialty Start Date End Date Violeta Boo MD [address] [place] [phone] PCP - General Family Medicine 05/21/22 documented as of this encounter
--- OUTSIDE RECORDS SUMMARY | 2025-01-14 10:54 | XMS_ITS | Encounter Summary ---
Author Organization [employer] Address 75 [facility] 7t [place] [address] Care Team Providers Care Trace Evidence Technician Name Role Phone Violeta Boo MD Primary Care Provide r Reason for Visit * Reason Comments Med Refill Encounter Details Date Type Department Care Team ([facility] st Contact Info) Description 01/04/2025 Refill [facility] MEDICINE 230 [place] [address] Violeta Boo MD 230 [place] [address] Social History Tobacco Use Types Packs/Day Years [...] 9:00 AM EDT Office Visit [facility] OPTOMETRY [address] [place] [address] CadenAngella lae, OD 230 [place] [address] 02/05/2025 9:15 AM EDT Office Visit [facility] MEDICINE 230 [place] [address] Violeta Boo MD 230 [place] [address] documented as of this encounter Visit Diagnoses Not on filedocumented in this encounter Additional Health Concerns Assessment Noted Time PHQ-9 Depression Total Score: 17 024 11:23 AM EDT documented as of this encounter Care Teams Trace Evidence Technician Relationship Specialty Start Date End Date Violeta Boo MD 230 [place] [address] PCP - General Family Medicine 05/21/22 documented as of this encounter
== END 2025-01-14 10:12 | disposition home or self-care (01) ==
PROVIDERS: PCP Internal Medicine; Visit Provider Internal Medicine
DX: J44.9 Chronic obstructive pulmonary disease, unspecified (principal); J98.4 Other disorders of lung; G47.33 Obstructive sleep apnea (adult) (pediatric)
CPT/HCPCS: 99213

== ENCOUNTER 2025-01-14 10:25 | Outpatient (REF) | payer OTHER, SELFPAY ==
[2025-01-14 10:51] LABS: MANUAL DIFF FLAG NO
[2025-01-14 11:16] LABS: Basophils Absolute Auto 0.1 X10*3/uL (0.0-0.2); Basophils Percent Auto 0.6 % (0-2); Eosinophils Absolute Auto 0.2 X10*3/uL (0.0-0.4); Eosinophils Percent Auto 1.9 % (0-4); Hemoglobin 13.6 g/dl (12.0-16.0); Imm Gran Abs Auto 0.03 X10*3/uL (0.00-0.03); Imm Gran Pct Auto 0.3 % (0.0-0.4); Lymphocytes Absolute Auto 2.5 X10*3/uL (1.2-4.9); Lymphocytes Percent Auto 24.8 % (20-40); Mean Corpuscular HGB Conc 32.4 g/dl (31.0-35.0); Mean Corpuscular Hemoglobin 30.5 pg (27.0-33.0); Mean Corpuscular Volume 94.2 fL (80.0-98.0); Mean Platelet Volume 10.8 fL (9.4-12.3); Monocytes Absolute Auto 0.8 X10*3/uL (0.1-1.2); Monocytes Percent Auto 7.9 % (2-11); Neutrophils Absolute Auto 6.5 x10*3/uL (2.0-8.3); Neutrophils Percent Auto 64.5 % (45-73); Platelet Count 330 X10*3/uL (160-400); Red Blood Count 4.46 X10*6/uL (4.20-5.50); Red Cell Distribution Width 14.6 % (11.0-16.0); White Blood Count 10.1 X10*3/uL (4.8-10.8)
[2025-01-14 11:55] LABS: Erythrocyte Sedimentation Rate 36 MM/HR (0-20)
--- OUTSIDE RECORDS SUMMARY | 2025-01-14 12:06 | XMS_ITS | Encounter Summary ---
Author Organization [facility] [place], Address [address] [place] [address] Phone Care Team Providers Care Logging Equipment Operator Name Role Phone Violeta Boo MD Primary Care Provide r Encounter Details Date Type Department Care Team (Late st Contact Info) Description 03/15/2022 Documentation Only [facility] [address] [place] [address] Shailesh Vallejo MD [address] [place] [address] [place] [address] Social History Tobacco Use Types [...] Visit [facility] [address] [place] [address] Shailesh Vallejo MD [address] [place] [address] [place] [address] documented as of this encounter Visit Diagnoses Not on filedocumented in this encounter Care Teams Logging Equipment Operator Relationship Specialty Start Date End Date Violeta Boo MD [address] [place] [phone] PCP - General Internal Medicine 03/21/23 documented as of this encounter
--- OUTSIDE RECORDS SUMMARY | 2025-01-14 12:06 | XMS_ITS | Encounter Summary ---
Author Organization [employer] Address 75 [facility] 7t [place] [address] Care Team Providers Care Narcotics Investigator Name Role Phone Violeta Boo MD Primary Care Provide r Reason for Visit * Reason Comments Med Refill Encounter Details Date Type Department Care Team (Late Contact Info) Description 02/13/2023 Refill [facility] MEDICINE 230 [place] [address] Cassy Starks MD 230 [place] [address] Social History Tobacco Use Types Packs/Day Years [...] Description 01/25/2025 9:00 AM EDT Office Visit [facility] OPTOMETRY [address] [place] [address] Angella Negrete, OD 230 [place] [address] 02/05/2025 9:15 AM EDT Office Visit [facility] MEDICINE [address] [place] [address] Violeta Boo MD 230 [place] [address] documented as of this encounter Visit Diagnoses Not on filedocumented in this encounter Care Teams Narcotics Investigator Relationship Specialty Start Date End Date Violeta Boo MD [address] [place] [phone] PCP - General Family Medicine 05/21/22 documented as of this encounter
--- OUTSIDE RECORDS SUMMARY | 2025-01-14 12:07 | XMS_ITS | Encounter Summary ---
Author Organization [employer] Address 75 [facility] 7 [place] [address] Care Team Providers Care Environmental Engineering Aide Name Role Phone Violeta Boo MD Primary Care Provide r Reason for Visit * Reason Onset Date Comments Durable Medical Equipment 11/20/2024 Encounter Details Date Type Department Care Team ([facility] st Contact Info) Description 11/20/2024 Telephone [facility] [address] [place] [address] Violeta Boo MD 230 [place], [place] [phone] Durable Medical Equipment Social History Tobacco Use [...] any questions you can contact pt at [phone]. (Frisian Speaker) documented in this encounter Plan of Treatment Upcoming Encounters Date Type Department Care Team (Late st Contact Info) Description 01/25/2025 9:00 AM EDT Office Visit [facility] [address] [place] [address] Caden, Angella, OD 230 [place] [address] 02/05/2025 9:15 AM EDT Office Visit [facility] [address] [place] [address] Violeta Boo MD 230 [place] [address] documented as of this encounter Visit Diagnoses Not on filedocumented in this encounter Additional Health Concerns Assessment Noted Time PHQ-9 Depression Total Score: 17 024 11:23 AM EDT documented as of this encounter Care Teams Environmental Engineering Aide Relationship Specialty Start Date End Date Violeta Boo MD 230 [place] [address] PCP - General Family Medicine 05/21/22 documented as of this encounter
--- OUTSIDE RECORDS SUMMARY | 2025-01-14 12:07 | XMS_ITS | Encounter Summary ---
Author Organization [employer] Address [address] [facility] 7 [place] [address] Care Team Providers Care Signs And Displays Sales Representative Name Role Phone Violeta Boo MD Primary Care Provide r Reason for Visit * Reason Onset Date Comments Referral 12/07/2024 Encounter Details Date Type Department Care Team ([facility] st Contact Info) Description 12/07/2024 Telephone [facility] [address] [place] [address] Violeta Boo MD [address] [place] [address] Referral Social History Tobacco Use Types Packs/Day [...] - 12/07/2024 11:04 AM EST Tc from [facility] with [facility] as she states wrong referral was sent over she's requestingPhysical Therapy referral to be faxed over [facility] [phone]. documented in this encounter Plan of Treatment Upcoming Encounters Date Type Department Care Team (Late st Contact Info) Description 01/25/2025 9:00 AM EDT Office Visit [facility] [address] [place] [address] Caden, Angella, OD 230 [place] [address] 02/05/2025 9:15 AM EDT Office Visit [facility] [address] [place] [address] Violeta Boo MD [address] [place] [address] documented as of this encounter Visit Diagnoses Not on filedocumented in this encounter Additional Health Concerns Assessment Noted Time PHQ-9 Depression Total Score: 17 024 11:23 AM EDT documented as of this encounter Care Teams Signs And Displays Sales Representative Relationship Specialty Start Date End Date Violeta Boo MD [address] [place] [phone] PCP - General Family Medicine 05/21/22 documented as of this encounter
--- OUTSIDE RECORDS SUMMARY | 2025-01-14 12:07 | XMS_ITS | Encounter Summary ---
Author Organization [facility], Address [address] [place] [address] Phone Care Team Providers Care Restaurant Assistant Manager Name Role Phone Violeta Boo MD Primary Care Provide r Encounter Details Date Type Department Care Team (Late st Contact Info) Description 02/13/2024 Documentation Only [facility] [address] [place] [phone] Rowena Knowles [address] [place] [address] Social History Tobacco Use Types [...] Visit [facility] [address] [place] [address] Shailesh Vallejo MD [address] [place] [address] [place] [phone] documented as of this encounter Visit Diagnoses Not on filedocumented in this encounter Care Teams Restaurant Assistant Manager Relationship Specialty Start Date End Date Violeta Boo MD [address] [place] [phone] PCP - General Internal Medicine 03/21/23 documented as of this encounter
--- OUTSIDE RECORDS SUMMARY | 2025-01-14 12:07 | XMS_ITS | Clinical Summary ---
Author Organization [employer] Address [address] [place] [address] 7t [place] [address] Care Team Providers Care Munitions Worker Name Role Phone Violeta Boo MD [...] other day. 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 Otitis externa 12/16/2022 Assessment & Plan (12/16/2022 [...] exercise, life style modifications, diet, referral to senior procurement specialist. Discussed re lower calorie intake, increase dietary fiber Pt agreed to be referred to dietitian. 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 04/30/2024 Encounters Date Type Department Care Team Description 01/14/2025 Orders Only GENERIC EXTERNAL DATA DEPARTMENT Provider, Generic External Data 01/11/2025 Telephone [facility] [address] [place] [address] Violeta Boo MD [facility] 01/04/2025 Refill [facility] [address] [place] [address] Violeta Boo MD 01/01/2025 Telephone [facility] [address] [place] [address] Violeta Boo MD Medsh Lab request 12/27/2024 Telephone [facility] [address] [place] [address] Violeta Boo MD Appointment Request 12/26/2024 Telephone [facility] [address] [place] [phone] Violeta Boo MD Reasonable Accommodation (I called the patient regarding a reasonable accommodation request, from [facility]. The form lists the patient's medical conditions, but it does not state what the accommodation is. There was no answer, and I reached a recording stating that the person's voicemail is not not set up. I then called her health care coordinator, Nikita, and she stated that she is not sure of what the patient is requesting. She agreed to ask the patient to return my call at ext [phone].) 12/24/2024 Telephone [facility] [address] [place] [phone] Violeta Boo MD call back required 12/20/2024 Telephone [facility] [address] [place] [phone] Violeta Boo MD [facility] needed. 12/20/2024 Telephone [facility] [address] [place] [address] Violeta Boo MD 12/18/[address] [address] [place] Appointment Request 12/18/2024 Telephone [facility] [address] [place] [address] Violeta Boo MD Durable Medical Equipment 12/14/2024 Refill [facility] [address] [place] [address] Violeta Boo MD Pain 12/14/2024 Telephone [facility] [address] [place] [address] Violeta Boo MD [facility] Request 12/07/2024 Telephone [facility] [address] [place] [address] [place] [address] Violeta Boo MD Referral 11/30/2024 Telephone [facility] [address] [place] [address] [place] dme wheel chair 11/23/2024 Telephone [facility] [address] [place] [address] Violeta Boo MD Referral 11/20/2024 Telephone [facility] [address] [place] [address] Violeta Boo MD Durable Medical Equipment 11/02/2024 Refill [facility] [address] [place] [address] Violeta Boo MD Pain 10/25/2024 Telephone [facility] [address] [place] [address] Violeta Boo MD Med Refill 10/21/2024 Refill [facility] [address] [place] [address] Violeta Boo MD Pain from Last 3 [...] 9:00 AM EDT Office Visit [facility] OPT[facility] [address] [place] [address] Caden, Angella, OD [address] [place] [address] 02/05/2025 9:15 AM EDT Office Visit [facility] [address] [place] [address] Violeta Boo MD [address] [place] [address] Health Maintenance Due Date Last Done Comments [...] 08/13/2024, 08/13/2024 Depression Screening 08/13/2025 08/13/2024, 08/13/20 Diabetes: Hemoglobin A1C 08/13/2025 024, 03/01/2024, 03/08/2023, [...] Procedure Name Priority Date/Time Associated Diagnosis Comments SED RATE BY MODIFIED WESTYESSICAREN Routine 01/14/2025 10:48 AM EST CBC WITH AUTO DIFFERENTIAL Routine 01/14/2025 10:48 AM EST BI MAMMOGRAM SCREENING TOMOSYNTHESIS BILATERAL Routine 08/30/2024 9:10 AM EDT POCT GLYCATED HEMOGLOBIN, TOTAL Routine 08/13/2024 10:31 AM EDT Prediabetes HM COLONOSCOPY Routine 06/11/2022 LIPID PANEL, STANDARD Routine 03/15/2022 9:22 AM EDT ZZZ HISTORICAL HEPATITIS C ANTIBODY RFLX Routine 01/02/2020 10:23 AM EST from Last 3 Months or Most Recently Relevant to Health Maintenance Results * CBC auto differential (01/14/2025 10:48 AM EST) White Blood Count 10.1 4.8 - 10.8 X10*3/uL [facility] Red Blood Count 4.46 4.20 - 5.50 X10*6/uL [facility] Hemoglobin 13.6 12.0 - 16.0 g/dl [facility] Hematocrit 42.0 37.0 - 47.0 % [facility] Mean Corpuscular Volume 94.2 80.0 - 98.0 fL [facility] Mean Corpuscular Hemoglobin 30.5 27.0 - 33.0 pg [facility] Mean Corpuscular HGB Conc 32.4 31.0 - 35.0 g/dl [facility] Red Cell Distribution Width 14.6 11.0 - 16.0 % [facility] Platelet Count 330 160 - 400 X10*3/uL [facility] Mean Platelet Volume 10.8 9.4 - 12.3 fL [facility] Neutrophils Percent Auto 64.5 45 - 73 % [facility] Imm Gran Pct Auto 0.3 0.0 - 0.4 % [facility] Lymphocytes Percent Auto 24.8 20 - 40 % [facility] Monocytes Percent Auto 7.9 2 - 11 % [facility] Eosinophils Percent Auto 1.9 0 - 4 % [facility] Basophils Percent Auto 0.6 0 - 2 % [facility] NRBC Pct Auto 0.0 0.0 - 0.2 /100WBC [facility] Neutrophils Absolute Auto 6.5 2.0 - 8.3 x10*3/uL [facility] Imm Gran Abs Auto 0.03 0.00 - 0.03 X10*3/uL [facility] Lymphocytes Absolute Auto 2.5 1.2 - 4.9 X10*3/uL [facility] Monocytes Absolute Auto 0.8 0.1 - 1.2 X10*3/uL [facility] Eosinophils Absolute Auto 0.2 0.0 - 0.4 X10*3/uL [facility] Basophils Absolute Auto 0.1 0.0 - 0.2 X10*3/uL [facility] NRBC Abs Auto 0.000 0.0 - 0.012 X10*3/uL [facility] 01/14/2025 10:4 8 AM EST 01/14/2025 10:48 AM EST us Generic External Data Provider LAB BLOOD ORDERAB LES Final Result Performing Organization Address [facility] Co de Phone Number [facility] [address] [place] [phone] * (ABNORMAL) Sed Rate by Modified Anu (01/14/2025 10:48 AM EST) Erythrocyte Sedimentation Rate 36(H) 0 - 20 MM/HR [facility] Comment:Patients with polycy themia and many hemoglobin abnormalitiesmay have depressed sed rates whereas patients with anemiamay have elevated sed rates. 01/14/2025 10:4 8 AM EST 01/14/2025 10:48 AM EST us Generic External Data Provider LAB BLOOD ORDERAB LES Final Result Performing Organization Address [facility]/ZIP Co de Phone Number [facility] [address] [place] [phone] * BI Mammogram Screening Tomosynthesis Bilateral (08/30/2024 9:10 AM EDT) Anatomical Region Laterality Modality Breast Bilateral Mammography 08/30/2024 9:10 AM EDT Narrative 09/11/2024 12:30 PM EDT ? [facility] ? [address] ?[place] [address] ? Mammography Report ? Signed with Addenda ? Patient: Violeta Alvarenga V ?MR#: [id number] ?? [id number] ? : 1950 ?Acct:[id number] ? Age/Sex: 74 / F ?ADM Date: 08/30/24 ? Loc: HO.MAMMO ? Attending Dr: Violeta Pascual MD ? Ordering Physician: Violeta Boo MD ?Results: ?? 2Benign Findings ? Date of Service: 08/30/24 ?Follow Up: 1 Year From Orig ?? inal Mammogram ? Procedure(s): MM tomosynthesis screening BI ?? Accession Number(s): [id number] ? cc: LolisfavianVioleta Hilton MD ?ADDENDUM ? ADDENDUM #1 ? ADDENDUM: [...] by Radhika Douglas, DO in OV> ? 24 1026 ?? Addendum Cosigned By: ? DD/ [...] ??Radhika Douglas DO ??09/11/2024 12:27 PM EDT ? Dictated By: ?Radhika Douglas DO ? Signed By: ?<Electronically signed by Radhika Douglas, DO in OV> ? 09/11/24 1227 ? DD/ 0910 ? TD/TT: 08/30/24 0925 ? Consultant Dietitian: ? Procedure Note Shireen Parsons - 09/14/2024 [facility] [address] [place] [address] Dr. [place], [place] [address] Mammography Report Signed with Addenda Patient: Violeta Alvarenga R#: [id number] : 2Acct:[id number] Age/Sex: 74 / FADM Date: 08/30/24 Loc: HO.MAMMO Attending Dr: Violeta Pascual MD Ordering Physician: Violeta Boo MDResults: 2Benign Findings Date of Service: 08/30/24Follow Up: 1 Year From Orig ina Mammogram Procedure(s): MM tomosynthesis screening BI Accession Number(s): [id number] cc: Violeta Boo MD ADDENDUM ADDENDUM #1 [...] OV> 09/11/24 1227 DD/ 9 TD/TT: 08/30/[address] Consultant Dietitian: Violeta Pascual MD IMG BI PROCEDURES Shemar daylin Result - Final * POCT HGB A1C (08/13/2024 10:31 AM EDT) Hemoglobin A1C 6.0 4.0 - 6.0 % QC Media Lot # [id number] Lot# Expiration Date Blood 08/13/2024 10:3 1 AM EDT Violeta [...] Madi WADE et al. JUAN LUIS. 2013;310(19): 4299-8692 ?? (http://education.[facility]/faq/UFY412) Non-HDL Cholesterol 124 <130 mg/dL (calc) [facility] Comment: For patients with diabetes plus 1 major ASCVD risk ?? factor, treating to a non-HDL-C goal of <100 mg/dL ?? (LDL-C of <70 mg/dL) is considered a therapeutic ?? option. Triglycerides 190(H) <150 mg/dL [facility] 03/15/2022 9:22 AM EDT Leonard Perez MD LAB BLOOD ORDERABL ES Final Result Performing Organization Address [facility]/ZIP Co de Phone Number [facility] [address] * HEPATITIS C ANTIBODY RFLX (01/02/2020 10:23 AM EST) Pathologist [facility] HEPATITIS C ANTIBODY NONREACTIVE NONREACTIVE [facility] Comment: Antibodies to HCV not detected; does not exclude early acute HCV infection. 01/02/2020 10:2 3 AM EST Historical Provider HISTORICAL/NON ORDERABLE LABS Final Result Performing Organization Address [facility] Co de Phone Number [facility] [address] from Last 3 Months or Most Recently Relevant to Health Maintenance Insurance [facility] DUAL [facility]PLETE Care Teams Munitions Worker Relationship Specialty Start Date End Date Violeta Boo MD [address] [place], [place] [phone] PCP - General Family Medicine 05/21/22
--- OUTSIDE RECORDS SUMMARY | 2025-01-14 12:07 | XMS_ITS | Encounter Summary ---
Author Organization [employer] Address [address] [place] [address] 7t [place] [address] Care Team Providers Care Foundry Molder Name Role Phone Violeta Boo MD Primary Care Provide r Encounter Details Date Type Department Care Team ([facility] Contact Info) Description 03/22/2023 Orders Only [facility] [address] [place], [place] [phone] Brittany Epps LPN Social History Tobacco Use [...] Description 01/25/2025 9:00 AM EDT Office Visit [facility] OPT[facility] [address] [place] [address] Caden, Angella, OD [address] [place], [place] [phone] 02/05/2025 9:15 AM EDT Office Visit [facility] [address] [place], [place] [phone] Violeta Boo MD [address] [place] [address] documented as of this encounter Visit Diagnoses Not on filedocumented in this encounter Care Teams Foundry Molder Relationship Specialty Start Date End Date Violeta Boo MD [address] [place] [address] PCP - General Family Medicine 05/21/22 documented as of this encounter
--- OUTSIDE RECORDS SUMMARY | 2025-01-14 12:07 | XMS_ITS | Encounter Summary ---
Author Organization [employer] Address [address] [facility] 7t [place] [address] Care Team Providers Care Research Quality Assurance Specialist Name Role Phone Violeta Boo MD Primary Care Provide r Reason for Visit * Reason Onset Date Comments Referral 12/08/2022 Encounter Details Date Type Department Care Team ([facility] st Contact Info) Description 12/08/2022 Telephone [facility] [address] [place] [address] Violeta Boo MD [address] [place] [address] Referral Social History Tobacco Use Types Packs/Day [...] 12/08/2022 2:55 PM EST Rufino Pagan with [facility] requesting a new referral for colorectal Surgery at [address] [place] [address] [place] [address]. Ej stated that a provider from their got in contact With Dr. Berkowitz, and Dr. Berkowitz advised provider that it okay for pt to receive a referral. They are now requesting a new referral from PCP, in order for pt to be ssen. If any question please contact bill at [phone] documented in this encounter Plan of Treatment Upcoming Encounters Date Type Department Care Team (Late st Contact Info) Description 01/25/2025 9:00 AM EDT Office Visit [facility] OPT[facility] [address] [place] [address] Angella Negrete, OD [address] [place] [address] 02/05/2025 9:15 AM EDT Office Visit [facility] [address] [place] [address] Violeta Boo MD [address] [place] [address] documented as of this encounter Visit Diagnoses Not on filedocumented in this encounter Care Teams Research Quality Assurance Specialist Relationship Specialty Start Date End Date Violeta Boo MD [address] [place] [address] PCP - General Family Medicine 05/21/22 documented as of this encounter
--- OUTSIDE RECORDS SUMMARY | 2025-01-14 12:07 | XMS_ITS | Encounter Summary ---
Author Organization [facility] Address [address] [place] [address] Phone Care Team Providers Care Corporate Account Executive Name Role Phone Violeta Boo MD Primary Care Provide r Encounter Details Date Type Department Care Team (Late st Contact Info) Description 12/24/2022 Documentation Only [facility] [address] [place] [phone] Jazmin Powell PA Social History Tobacco Use [...] Visit [facility] [address] [place] [phone] Shailesh Vallejo MD [address] [place] [address] [place] [phone] documented as of this encounter Visit Diagnoses Not on filedocumented in this encounter Care Teams Corporate Account Executive Relationship Specialty Start Date End Date Violeta Boo MD [address] [place] [phone] PCP - General Internal Medicine 03/21/23 documented as of this encounter
--- OUTSIDE RECORDS SUMMARY | 2025-01-14 12:07 | XMS_ITS | Encounter Summary ---
Author Organization [facility], Address [address] [place] [address] Phone Care Team Providers Care Operational Review Sergeant Name Role Phone Violeta Boo MD Primary Care Provide r Encounter Details Date Type Department Care Team (Late st Contact Info) Description 05/05/2022 Documentation Only [facility] [address] [place] [address] Shailesh Vallejo MD [address] [place] [address] [place] [address] Social History Tobacco Use Types [...] Visit [facility] [address] [place] [address] Shailesh Vallejo MD [address] [place] [address] [place] [address] documented as of this encounter Visit Diagnoses Not on filedocumented in this encounter Care Teams Operational Review Sergeant Relationship Specialty Start Date End Date Violeta Boo MD [address] [place] [phone] PCP - General Internal Medicine 03/21/23 documented as of this encounter
--- OUTSIDE RECORDS SUMMARY | 2025-01-14 12:07 | XMS_ITS | Encounter Summary ---
Author Organization [employer] Address [address] [facility] 7t [place] [address] Care Team Providers Care Mortgage Operations Manager Name Role Phone Violeta Boo MD Primary Care Provide r Reason for Visit * Reason Onset Date Comments Appointment Request 02/17/2023 Encounter Details Date Type Department Care Team ([facility] Contact Info) Description 02/17/2023 Telephone [facility] [address] [place] [address] Violeta Boo MD [address] [place], [place] [phone] Appointment Request Social History Tobacco Use Types [...] message previously sent. Please contact pt at [phone] Cuban Speaker * Telephone Encounter - Shay Navarro - 02/17/2023 1:16 PM EDT Tc from pt requesting to r/s appt for Follow up on 02/17/2023. Please contact pt at [phone] Cuban Speaker documented in this encounter Plan of Treatment Upcoming Encounters Date Type Department Care Team (Late st Contact Info) Description 01/25/2025 9:00 AM EDT Office Visit [facility] OPT[facility] [address] [place] [address] Angella Negrete, OD [address] [place] [address] 02/05/2025 9:15 AM EDT Office Visit [facility] [address] [place] [address] Violeta Boo MD [address] [place] [address] documented as of this encounter Visit Diagnoses Not on filedocumented in this encounter Care Teams Mortgage Operations Manager Relationship Specialty Start Date End Date Violeta Boo MD [address] [place] [address] PCP - General Family Medicine 05/21/22 documented as of this encounter
--- OUTSIDE RECORDS SUMMARY | 2025-01-14 12:07 | XMS_ITS | Clinical Summary ---
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 [phone] Health Maintenance Due Date Last Done Comments [...] AM EST) Hemoglobin A1C 7.1(H) (4.0-5.6) % [facility] Comment: MONITORING: In known diabetic patients, hemoglobin A1c targets should be discussed with health care provider. DIAGNOSTIC USE: ??The [place] Diabetes Association (ADA) and the World Health [...] Supplement 1 Testing performed or reported by [facility], a Service of [facility], [address] [place] [phone] Yana Bales MD, Tobacco Curer [facility]# [id number] Blood (Blood, Venous) 10/20/2022 9:21 AM EST 10/20/2022 9:22 AM EST us Shailesh Vallejo MD LAB BLOOD ORDERABLES Final Resul t [facility] [employer] [employer] from Last 3 Months or Most Recently Relevant to Health Maintenance Insurance [facility] DUAL COMPLETE ([id number]) Care Teams Sql Programmer Relationship Specialty Start Date End Date Violeta Boo MD [address] [place] [address] [place] [phone] PCP - General Internal Medicine 03/21/23
--- OUTSIDE RECORDS SUMMARY | 2025-01-14 12:07 | XMS_ITS | Encounter Summary ---
Author Organization [email or web address] Address [address] [facility] 7t [place] [address] Care Team Providers Care Padding Machine Operator Name Role Phone Violeta Boo MD Primary Care Provide r Reason for Visit * Reason Comments Med Refill Encounter Details Date Type Department Care Team ([facility] st Contact Info) Description 11/18/2022 Refill [facility] [address] [place] [address] Betsy Simmons CNM [address] [place] [address] Social History Tobacco Use Types Packs/Day Years [...] No answer, left V/M. Will retask to [employer] nurses for second attempt * Telephone Encounter [...] 9:00 AM EDT Office Visit [facility] [address] [place], [place] [phone] Angella Negrete, OD [address] [place] [address] 02/05/2025 9:15 AM EDT Office Visit [facility] [address] [place], [place] [phone] Violeta Boo MD [address] [place], [place] [phone] documented as of this encounter Visit Diagnoses Not on filedocumented in this encounter Care Teams Padding Machine Operator Relationship Specialty Start Date End Date Violeta Boo MD [address] [place], [place] [phone] PCP - General Family Medicine 05/21/22 documented as of this encounter
--- OUTSIDE RECORDS SUMMARY | 2025-01-14 12:07 | XMS_ITS | Encounter Summary ---
Author Organization [employer] Address [address] [facility] 7t [place] [address] Care Team Providers Care Termite Control Servicer Name Role Phone Violeta Boo MD Primary Care Provide r Encounter Details Date Type Department Care Team (Late Contact Info) Description 04/26/2023 Orders Only [facility] CHC MED & PEDS [address], [place] [phone] Brittany Epps LPN Social History Tobacco Use [...] 9:00 AM EDT Office Visit [facility] OPTOMETRY [address] [place], [place] [phone] Caden, Angella, OD [address] [place], [place] [phone] 02/05/2025 9:15 AM EDT Office Visit [facility] MEDICINE [address] [place] [address] Violeta Boo MD [address] [facility] [place] [address] documented as of this encounter Procedures Procedure Name Priority Date/Time Associated Diagnosis Comments XR LUMBAR SPINE 2-3 VIEWS Routine 05/05/2023 12:38 PM EDT documented in this encounter Results * XR Lumbar Spine 2-3 Views (05/05/2023 12:38 PM EDT) Anatomical Region Laterality Modality Spine, L-spine Radiographic Rena ging 05/05/2023 12:3 8 PM EDT Narrative 05/17/2023 7:08 PM EDT ? [facility] ?[address] ?[place] [address] ?XRay Report ? Signed ? Patient: Violeta Alvarenga V ?MR#: [id number] ?? [id number] ? : 1950 ?Acct:[id number] ? Age/Sex: 72 / F ?ADM Date: 05/05/23 ? Loc: HO.XRAY ? Attending Dr: Violeta Pascual MD ? Ordering Physician: Violeta Boo MD ?? Date of Service: 05/05/23 ?? Procedure(s): XR lumbar spine 2-3V ?? Accession Number(s): [id number] ? cc: Violeta Boo MD ? EXAMINATION: [...] 1905 ? DD/ 1238 ? TD/TT: ? Button Tacker: SANA ? Procedure Note Jaqueline, Image - 05/17/[address] [address] XRay Report Signed Patient: Violeta Alvarenga VMR#: [id number] : 1950cct:[id number] Age/Sex: 72 / FADM Date: 05/05/23 Loc: HO.XRAY Attending Dr: Violeta Pascual MD Ordering Physician: Violeta Boo MD Date of Service: 05/05/23 Procedure(s): XR lumbar spine 2-3V Accession Number(s): [id number] cc: Violeta Boo MD EXAMINATION: XR LUMBOSACRAL [...] in OV> 05/17/23 1905 DD/ 1238 TD/TT: Button Tacker: SANA [facility] External Provider IMG XR PROCEDURES Edited Result - Final documented in this encounter Visit Diagnoses Not on filedocumented in this encounter Care Teams Termite Control Servicer Relationship Specialty Start Date End Date Violeta Boo MD [address] [place] [address] PCP - General Family Medicine 05/21/22 documented as of this encounter
--- OUTSIDE RECORDS SUMMARY | 2025-01-14 12:07 | XMS_ITS | Encounter Summary ---
Author Organization [employer] Address [address] [place] [address] 7t [place] [address] Care Team Providers Care Poultry Feed Supervisor Name Role Phone Violeta Boo MD Primary Care Provide r Encounter Details Date Type Department Care Team (Late Contact Info) Description 11/25/2022 Telephone [facility] MEDICINE [address] [place] [address] Violeta Boo MD [address] [place] [address] Social History Tobacco Use Types Packs/Day Years [...] Description 01/25/2025 9:00 AM EDT Office Visit [facility] OPTOMETRY [address] [place] [address] Angella Negrete, OD [address] [place] [address] 02/05/2025 9:15 AM EDT Office Visit [facility] MEDICINE [address] [place] [address] Violeta Boo MD [address] [place] [address] documented as of this encounter Visit Diagnoses Not on filedocumented in this encounter Care Teams Poultry Feed Supervisor Relationship Specialty Start Date End Date Violeta Boo MD [address] [place], [place] [phone] PCP - General Family Medicine 05/21/22 documented as of this encounter
--- OUTSIDE RECORDS SUMMARY | 2025-01-14 12:07 | XMS_ITS | Encounter Summary ---
Author Organization [facility] Address [address] [place] [address] Phone Care Team Providers Care Clinical Engineering Director Name Role Phone Violeta Boo MD Primary Care Provide r Encounter Details Date Type Department Care Team (Late st Contact Info) Description 03/22/2023 Documentation Only [facility] [address] [place] [phone] Jazmin Powell PA Social History Tobacco Use [...] [facility] [address] [place] [phone] Shailesh Vallejo MD [address] [place] [address] [place] [phone] documented as of this encounter Visit Diagnoses Not on filedocumented in this encounter Care Teams Clinical Engineering Director Relationship Specialty Start Date End Date Violeta Boo MD [address] [place] [phone] PCP - General Internal Medicine 03/21/23 documented as of this encounter
--- OUTSIDE RECORDS SUMMARY | 2025-01-14 12:07 | XMS_ITS | Encounter Summary ---
Author Organization [employer] Address [address] [facility] 7 [place] [address] Care Team Providers Care Sustainable Agriculture Specialist Name Role Phone Violeta Boo MD Primary Care Provide r Reason for Visit * Reason Onset Date Comments Med Refill 10/25/2024 Encounter Details Date Type Department Care Team ([facility] st Contact Info) Description 10/25/2024 Telephone [facility] MEDICINE [address] [place] [address] Violeta Boo MD [address] [place], [place] [phone] Med Refill Social History Tobacco Use Types [...] Description 01/25/2025 9:00 AM EDT Office Visit [facility] OPTOMETRY [address] [place] [address] Angella Negrete, OD [address] [place] [address] 02/05/2025 9:15 AM EDT Office Visit [facility] MEDICINE [address] [place] [address] Violeta Boo MD [address] [place] [address] documented as of this encounter Visit Diagnoses Not on filedocumented in this encounter Additional Health Concerns Assessment Noted Time PHQ-9 Depression Total Score: 17 024 11:23 AM EDT documented as of this encounter Care Teams Sustainable Agriculture Specialist Relationship Specialty Start Date End Date Violeta Boo MD [address] [place] [address] PCP - General Family Medicine 05/21/22 documented as of this encounter
--- OUTSIDE RECORDS SUMMARY | 2025-01-14 12:07 | XMS_ITS | Encounter Summary ---
Author Organization [employer] Address [address] [facility] 7t [place] [address] Care Team Providers Care Replenishment Merchandising Associate Name Role Phone Violeta Boo MD Primary Care Provide r Encounter Details Date Type Department Care Team (Late st Contact Info) Description 07/20/2024 Telephone [facility] OPTOMETRY [address] [place] [address] Angella Negrete, OD [address] [place] [address] Social History Tobacco Use Types Packs/Day Years [...] 07/20/2024 3:24 PM EDT Called the Patient IN [employer]BER Nikita Sneed, to inform her at the [...] Visit [facility] OPTOMETRY [address] [place] [address] Angella Negrete, OD [address] [place] [address] 02/05/2025 9:15 AM EDT Office Visit [facility] MEDICINE [address] [place] [address] Violeta Boo MD [address] [place] [address] documented as of this encounter Visit Diagnoses Not on filedocumented in this encounter Care Teams Replenishment Merchandising Associate Relationship Specialty Start Date End Date Violeta Boo MD [address] [place] [address] PCP - General Family Medicine 05/21/22 documented as of this encounter
--- OUTSIDE RECORDS SUMMARY | 2025-01-14 12:07 | XMS_ITS ---
Author Name Radha Ayala NP Address [address] [place] [address] Phone [phone] [facility] Care Team Providers Care Carpenter Assistant Installer Name Role Phone Radha Ayala Unavailable [phone] Unavailable Unavailable Unavailable Unavailable Unavailable Unavailable Cristo Garcia Unavailable [phone] Unavailable Unavailable [phone] Gideon Frost Unavailable [phone] Unavailable Unavailable Unavailable Unavailable Unavailable Unavailable Unavailable Unavailable [phone] Unavailable Unavailable Unavailable WALTER ROBERT Unavailable [phone] Nirav Anthony Unavailable [phone] Unavailable Unavailable [phone] Unavailable Unavailable [phone] Reason for Referral Not Available Allergies, adverse [...] AREA(S) EVERY MORNING 2022-12-16 No Data Available [id number] 3 TO 4 DROPS INTO [...] a day 2024-05-11 No Data Availab le [employer] Verio Flex System w/Device Kit USE DIRECTED [...] 2023-04-12 N/A 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;Peripheral vascular disease, unspecified Active 2023-04-12 N/A Chronic gouty arthritis;Generalized osteoarthritis Act rossy 2023-04-07 N/A Chronic diarrhea Active 2023-04-07 N/A Unspecified atherosclerosis of [place] arteries of extremities, bilateral legs Active 2023-04-13 N/A Chronic obstructive pulmonary disease, unspecified Act rossy 2023-04-13 N/A Hemorrhoids Active 2023-08-10 N/A Onychomycosis Active 2023-08-21 N/A Chronic bilateral low back p ain with bilateral sciatica;Bulging lumbar disc Active 2023-04-07 N/A Chronic back pain Active 2023-10-21 N/A At risk for cancerAt risk for colon cancer Active 2023-10-21 N/A Other problems related to mo dical facilities and other health care Active 2024-01-19 N/A Other problems related to mo dical facilities and other health care Active [...] (do not use for phone, instead use 31003-70) [facility] [place] Noninfective gastroenteritis and colitis, unspecifiedRepeated [...] sitesSacroiliitis, not elsewhere classifiedAthscl heart disease of [place] cor art w unsp ang pctrsPeripheral vascular disease, unspecified New patient,40-59min; chronic exacerbation, 2 stable chronic or 1 acute illness add add modifier 95 for video (do not use for phone, instead use 06228-16) [facility] [place] New patient,40-59min; chronic exacerbation, 2 stable chronic or 1 acute illness add add modifier 95 for video (do not use for phone, instead use 16734-78) [facility] [place] New patient,40-59min; chronic exacerbation, 2 stable chronic or 1 acute illness add add modifier 95 for video (do not use for phone, instead use 25759-46) [facility] [place] New patient,40-59min; chronic exacerbation, 2 stable chronic or 1 acute illness add add modifier 95 for video (do not use for phone, instead use 39332-44) [facility] [place] New patient,40-59min; chronic exacerbation, 2 stable chronic or 1 acute illness add add modifier 95 for video (do not use for phone, instead use 89888-43) [facility] [place] New patient,40-59min; chronic exacerbation, 2 stable chronic or 1 acute illness add add modifier 95 for video (do not use for phone, instead use 51067-68) [facility] [place] New patient,40-59min; chronic exacerbation, 2 stable chronic or 1 acute illness add add modifier 95 for video (do not use for phone, instead use 18917-27) [facility] [place] New patient,40-59min; chronic exacerbation, 2 stable chronic or 1 acute illness add add modifier 95 for video (do not use for phone, instead use 65829-62) [facility] [place] 04/07/2023 Unlisted special service; to be used for medical record reviews and reporting CPTII codes (1111F, etc) [facility]2023 Other specified counseling Unlisted special service; to be used for medical record reviews and reporting CPTII codes (1111F, etc) [facility] [place] Unlisted special service; to be used for medical record reviews and reporting CPTII codes (1111F, etc) [facility] [place]2023 No Data Available [facility] [place] 08[place]10[place]2023 Body mass index (BMI) 45.0-4 9.9, adultPrediabetesMorbid (severe) obesity due to excess caloriesTinea unguiumLumbago with sciatica, left sideLumbago with sciatica, right sideOther chronic painOther intervertebral disc degeneration, lumbar region No Data Available [facility] [place] 08[place]2023 No Data Available [facility] [place] 08/10/2023 No Data Available [facility] [place] 10/21/2023 Dorsalgia, unspecifiedOther chronic painMorbid (severe) obesity due to excess caloriesOther specified personal risk factors, not elsewhere classified No Data Available [facility] [place] 10/21/2023 Estab. patient 30-39min; chronic exacerbation, 2 stable chronic or 1 acute illness add add modifier 95 for video, (do not use for phone, instead use 04298-92) [facility] [place]2024 Type 2 diabetes mellitus wit h diabetic chronic kidney diseaseChronic kidney disease, stage 3bRepeated fallsUnspecified hearing loss, left earTinnitus, left earUnspecified hemorrhoidsOther specified postprocedural statesLumbago with sciatica, left sideLumbago with sciatica, right sideOther chronic painOther intervertebral disc degeneration, lumbar regionIdiopathic chronic gout, unspecified site, without tophus (tophi)Polyosteoarthritis, unspecifiedSchizophrenia, unspecifiedAthscl heart disease of [place] cor art w unsp ang pctrsType 2 diabetes w diabetic peripheral angiopath w/o gangreneUnsp athscl [place] arteries of extremities, bilateral legsChronic obstructive pulmonary [...] (do not use for phone, instead use 71937-88) [facility] [place] Estab. patient 30-39min; chronic exacerbation, 2 stable chronic or 1 acute illness add add modifier 95 for video, (do not use for phone, instead use 18381-74) [facility] [place]/20[place] Estab. patient 30-39min; chronic exacerbation, 2 stable chronic or 1 acute illness add add modifier 95 for video, (do not use for phone, instead use 68687-77) [facility] Estab. patient 30-39min; chronic exacerbation, 2 stable chronic or 1 acute illness add add modifier 95 for video, (do not use for phone, instead use 73947-09) [facility] Estab. patient 30-39min; chronic exacerbation, 2 stable chronic or 1 acute illness add add modifier 95 for video, (do not use for phone, instead use 68164-90) [facility] Estab. patient 30-39min; chronic exacerbation, 2 stable chronic or 1 acute illness add add modifier 95 for video, (do not use for phone, instead use 67688-99) [facility] No Data Available [facility] [place] 05/[place]/2024 Type 2 diabetes mellitus wit h diabetic chronic kidney diseaseChronic kidney disease, stage 3b No Data Available [facility] [place] 05/[place]/2024 No Data Available [facility] [place] 06[place]2024 Type 2 diabetes mellitus wit h diabetic chronic kidney diseaseChronic kidney disease, stage 3b No Data Available [facility] [place] 06[place]/2024 Unlisted special service; to be used for medical record reviews and reporting CPTII codes (1111F, etc) [facility] [place]20[place] Other specified counseling Unlisted special service; to be used for medical record reviews and reporting CPTII codes (1111F, etc) [facility] [place] Unlisted special service; to be used for medical record reviews and reporting CPTII codes (1111F, etc) [facility] [place] Estab. patient 10-29min; 1 minor problem; add add modifier 95 for video, modifier 93 for phone [facility] [place] 12/18/2024 Type 2 diabetes mellitus wit h diabetic chronic kidney diseaseChronic kidney disease, stage 3bMorbid (severe) obesity due to excess caloriesBody mass index (bmi) 50-59.9 , adult Estab. patient 10-29min; 1 minor problem; add add modifier 95 for video, modifier 93 for phone [facility] [place] 12/18/2024 Estab. patient 10-29min; 1 minor problem; add add modifier 95 for video, modifier 93 for phone [facility] [place] 12/18/2024 Vital Signs Date of Collection [...] (do not use for phone, instead use 11654-67) 11835 2023-04-07 No Data Available No Data Availa [...] reviews and reporting CPTII codes (1111F, etc) 66720 2023-07-01 No Data Available No Data Availa ble SBP < 130 (3074F) 3074F 2023-07-01 No Data Available No Data Available DBP <80 (3078F) 3078F 2023-07-01 No Data Available No Data Available No Data Available 69870 2023-08-10 No Data Available No Data Available Medication List Documented (1159F) 1159F 2023-08-10 No Data Available No Data Lena ilable BMI obtained (3008F) 3008F 2023-08-10 No Data Availab le No Data Available No Data Available 57710 2023-10-21 No Data Available No Data Available Medication List Documented (1159F) 1159F 2023-10-21 No Data Available No Data Lena ilable Estab. patient 30-39min; chronic exacerbation, 2 stable chronic or 1 acute illness add add modifier 95 for video, (do not use for phone, instead use 66998-84) 95668 2024-05-11 No Data Available No Data Availa [...] Available No Data Available No Data Available 68482 2024-05-14 No Data Available No Data Available Medication List Documented (1159F) 1159F 2024-05-14 No Data Available No Data Lnea ilable No Data Available 80837 2024-06-20 No Data Available No Data Available Medication List Documented (1159F) 1159F 2024-06-20 No Data Available No Data Lean ilable Unlisted special service; to be used for medical record reviews and reporting CPTII codes (1111F, etc) 06140 2024-09-04 No Data Available No Data Availa ble SBP >= 140 3077F 2024-09-04 No Data Available No Data Available DBP >=90 3080F 2024-09-04 No Data Available No Data Available Estab. patient 10-29min; 1 minor problem; add add modifier 95 for video, modifier 93 for phone 38352 2024-12-18 No Data Available No Data Availa [...] rheumatoid factor, multiple sitesAtherosclerotic heart disease of [place] coronary artery with unspecified angina pectoris;Peripheral vascular [...] discChronic gouty arthritis;Generalized osteoarthritisSchizophreniaAtherosclerotic heart disease of [place] coronary artery with unspecified angina pectoris;Peripheral vascular disease, unspecifiedUnspecified atherosclerosis of [place] arteries of extremities, bilateral legsChronic obstructive pulmonary [...] for weight clinic - [place]ocr [place] [facility] [place] to [place]iat[place] per pt request.Also needs [...] area that had available staff.Pt to call [facility] and get name of PT providers in her area that are covered.Will investigate weight loss clinics.Pt to look for back exercises on YouTube, activity as tolerated.Will FU.BMI 49.25send to weight clinic but not [place]referral for weight clinic - also [place] [facility] [place]2023Have not been able to find clinic that is covered by [facility] in er area. Pt to call [facility] and find list of names of [...] Documented (1125F)Continue to see PCP. Follow-up with [facility] as needed for any acute or [...] portal notes, I70.203 - Unspecified atherosclerosis of [place] arteries of extremities, bilateral legs continues to take albuterol sulfatePlease call CB ifIncreased SOB,or if patient falls.Pain that radiates to vaginaHas seen PCPhas referral to GI but is going to cancelEd not to cancel, get transportBMI 52.08send to weight clinic but not [place] 08/[place]/2023referral for weight clinic - also [place]ocr [place] [facility] [place]23Have not been able to find clinic that is covered by [facility] in er area. Pt to call [facility] and find list of names of [...] area that had available staff.Pt to call [facility] and get name of PT providers [...] modifier 95)Continue to see PCP. Follow-up with [facility] as needed for any acute or [...] our conversation of three days ago. Her COLLEGE TUTOR is supposed to go tonight or tomorrow [...] modifier 95)Continue to see PCP. Follow-up with [facility] as needed for any acute or [...] our conversation of three days ago. Her COLLEGE TUTOR is supposed to go tonight or tomorrow [...] mg dose. She will be traveling to [place] so she is to ask for emergency traveling supply, which won't be much as she will be back july.Refilled w instructions to pharmacy.Will FU after . 2024-12-18 08:09:04 Estab. patient 10-29 min; 1 minor problem; add add modifier 95 for video, modifier 93 for phoneContinue to see PCP. Follow-up with [facility] as needed for any acute or [...] our conversation of three days ago. Her COLLEGE TUTOR is supposed to go tonight or tomorrow [...] mg dose. She will be traveling to [place] so she is to ask for emergency [...] for weight clinic - also endocr [place] [facility]/21/2023Have not been able to find clinic that is covered by [facility] in er area. Pt to call [facility] and find list of names of [...]
--- OUTSIDE RECORDS SUMMARY | 2025-01-14 12:07 | XMS_ITS | Encounter Summary ---
Author Organization [facility], Address [address] [place] [address] Phone Care Team Providers Care Pediatric Acute Care Unit Nurse Name Role Phone Violeta Boo MD Primary Care Provide r Encounter Details Date Type Department Care Team (Late st Contact Info) Description 08/27/2024 Documentation Only [facility] [address] [place] [phone] Rowena Knowles [address] [place] [address] Social History Tobacco Use Types [...] Visit [facility] [address] [place] [address] Shailesh Vallejo MD [address] [place] [address] [place] [address] documented as of this encounter Visit Diagnoses Not on filedocumented in this encounter Care Teams Pediatric Acute Care Unit Nurse Relationship Specialty Start Date End Date Violeta Boo MD [address] [place] [phone] PCP - General Internal Medicine 03/21/23 documented as of this encounter
--- OUTSIDE RECORDS SUMMARY | 2025-01-14 12:07 | XMS_ITS | Encounter Summary ---
Author Organization [facility] Address [address] [place] [address] Phone Care Team Providers Care Payroll Coordinator Name Role Phone Violeta Boo MD Primary Care Provide r Encounter Details Date Type Department Care Team (Late st Contact Info) Description 10/22/2022 Documentation Only [facility] [address] [place] [phone] Jazmin Powell PA Social History Tobacco Use [...] [facility] [address] [place] [address] Shailesh Vallejo MD [address] [place] [address] [place] [phone] documented as of this encounter Visit Diagnoses Not on filedocumented in this encounter Care Teams Payroll Coordinator Relationship Specialty Start Date End Date Violeta Boo MD [address] [place] [phone] PCP - General Internal Medicine 03/21/23 documented as of this encounter
--- OUTSIDE RECORDS SUMMARY | 2025-01-14 12:07 | XMS_ITS | Encounter Summary ---
Author Organization [employer] Address [address] [facility] 7t [place] [address] Care Team Providers Care Wastewater Treatment Supervisor Name Role Phone Violeta Boo MD Primary Care Provide r Reason for Visit * Reason Comments Med Refill Encounter Details Date Type Department Care Team ([facility] st Contact Info) Description 10/21/2024 Refill [facility] [address] [place] [address] Violeta Boo MD 230 [place] [address] Pain Social History Tobacco Use Types Packs/Day [...] EDT Office Visit [facility] OPTOMETRY [address] [place] [address] Angella Negrete, OD 230 [place] [address] 02/05/2025 9:15 AM EDT Office Visit [facility] [address] [place] [address] Violeta Boo MD 230 [place] [address] documented as of this encounter Visit Diagnoses Diagnosis Pain Generalized pain documented in this encounter Additional Health Concerns Assessment Noted Time PHQ-9 Depression Total Score: 17 024 11:23 AM EDT documented as of this encounter Care Teams Wastewater Treatment Supervisor Relationship Specialty Start Date End Date Violeta Boo MD [address] [place] [address] PCP - General Family Medicine 05/21/22 documented as of this encounter
--- OUTSIDE RECORDS SUMMARY | 2025-01-14 12:07 | XMS_ITS | Encounter Summary ---
Author Organization [employer] Address 75 [facility] 7t [place] [address] Care Team Providers Care Help Desk Supervisor Name Role Phone Violeta Boo MD Primary Care Provide r Reason for Visit * Reason Comments Med Refill Encounter Details Date Type Department Care Team ([facility] st Contact Info) Description 11/02/2024 Refill [facility] [address] [place] [address] Violeta Boo MD 230 [place] [address] Pain Social History Tobacco Use Types Packs/Day [...] Description 01/25/2025 9:00 AM EDT Office Visit [facility] OPTOMETRY [address] [place] [address] Angella Negrete, OD 230 [place] [address] 02/05/2025 9:15 AM EDT Office Visit [facility] MEDICINE [address] [place] [address] Violeta Boo MD [address] [place] [address] documented as of this encounter Visit Diagnoses Diagnosis Pain Generalized pain documented in this encounter Additional Health Concerns Assessment Noted Time PHQ-9 Depression Total Score: 17 024 11:23 AM EDT documented as of this encounter Care Teams Help Desk Supervisor Relationship Specialty Start Date End Date Violeta Boo MD [address] [place] [address] PCP - General Family Medicine 05/21/22 documented as of this encounter
--- OUTSIDE RECORDS SUMMARY | 2025-01-14 12:07 | XMS_ITS | Encounter Summary ---
Author Organization [facility], Address [address] [place] [address] Phone Care Team Providers Care Electromedical Service Engineer Name Role Phone Violeta Boo MD Primary Care Provide r Encounter Details Date Type Department Care Team (Late st Contact Info) Description 05/05/2022 Documentation Only [facility] [address] [place] [address] Shailesh Vallejo MD [address] [place] [address] [place] [address] Social History Tobacco Use Types [...] Visit [facility] [address] [place] [address] Shailesh Vallejo MD [address] [place] [address] [place] [address] documented as of this encounter Visit Diagnoses Not on filedocumented in this encounter Care Teams Electromedical Service Engineer Relationship Specialty Start Date End Date Violeta Boo MD [address] [place] [phone] PCP - General Internal Medicine 03/21/23 documented as of this encounter
--- OUTSIDE RECORDS SUMMARY | 2025-01-14 12:07 | XMS_ITS | Encounter Summary ---
Author Organization [facility] Address [address] [place] [address] Phone Care Team Providers Care Knife Setter Name Role Phone Violeta Boo MD Primary Care Provide r Encounter Details Date Type Department Care Team (Late st Contact Info) Description 2022 Office Communication [facility] [address] [place] [address] Shailesh Vallejo MD [address] [place] [address] [place] [address] Social History Tobacco Use Types [...] Visit [facility] [address] [place] [address] Shailseh Vallejo MD [address] [place] [address] [place] [address] documented as of this encounter Visit Diagnoses Not on filedocumented in this encounter Care Teams Knife Setter Relationship Specialty Start Date End Date Violeta Boo MD [address] [place] [phone] PCP - General Internal Medicine 03/21/23 documented as of this encounter
--- OUTSIDE RECORDS SUMMARY | 2025-01-14 12:07 | XMS_ITS | Clinical Summary ---
Author Organization [facility] Address 175 [place] [address] Phone Care Team Providers Care Caregivers Non Medical Name Role Phone Violeta Boo MD Primary [...] life style modifications, diet, referral to senior accounting specialist. Discussed re lower calorie intake, increase [...] PM EST Office Visit [facility] [place] [address] [phone] Maury Godoy, DPM [address] [address] Health Maintenance Due Date Last Done Comments [...] (03/01/2024) Annual BMP Blood Test Abstracted Result [facility] Provider HEALTH MAINTENANCE Final Result * Hemoglobin A1c (08/09/2022) Hemoglobin A1C 0.0 % Comment:No Interpretation, A bstracted Blood Venous blood specimen / Unknown Result [facility] Provider LAB BLOOD ORDERABLES Almaz l Result * Lipid panel (03/15/2022) LDL/HDL Ratio 0 Comment:No Interpretation, A bstracted Triglycerides 0 mg/dL Comment:No Interpretation, A bstracted Cholesterol 0 mg/dL Comment:No Interpretation, A bstracted HDL 0 mg/dL Comment:No Interpretation, A bstracted LDL Cholesterol 0 mg/dL Comment:No Interpretation, A bstracted Blood Venous blood specimen / Unknown Result [facility] Provider LAB BLOOD ORDERABLES Almaz l Result from Last 3 Months or Most Recently Relevant to Health Maintenance Insurance [employer] MED[employer]ARE Care Teams Caregivers Non Medical Relationship Specialty Start Date End Date Violeta Boo MD [address] [place] [phone] PCP - General 5/16/23
--- OUTSIDE RECORDS SUMMARY | 2025-01-14 12:07 | XMS_ITS | Encounter Summary ---
Author Organization [employer] Address 75 [facility] 7t [place] [address] Care Team Providers Care X Ray Service Engineer Name Role Phone Violeta Boo MD Primary Care Provide r Reason for Visit * Reason Onset Date Comments Reasonable Accommodation Request 10/25/2022 I called regarding a reasonable accommodation form, from [employer]. The pt states that she will be getting a scooter, because she is no longer able to use a cane or a walker. She is requesting an apartment with elevator accessibility, because it would be easier for her to get in and out of her apartment. Encounter Details Date Type Department Care Team ([facility] st Contact Info) Description 10/25/2022 Telephone [facility] [address] [place] [address] Maksim [place], [place] Reasonable Accommodation Request (I called regarding a reasonable accommodation form, from [employer]. The pt states that she will be [...] 9:00 AM EDT Office Visit [facility] [address] [place] [address] Angella Negrete, OD 230 [place] [address] 02/05/2025 9:15 AM EDT Office Visit [facility] 230 [place] [address] Violeta Boo MD 230 [place] [address] documented as of this encounter Visit Diagnoses Not on filedocumented in this encounter Care Teams X Ray Service Engineer Relationship Specialty Start Date End Date Violeta Boo MD 230 [place] [address] PCP - General Family Medicine 05/21/22 documented as of this encounter
--- OUTSIDE RECORDS SUMMARY | 2025-01-14 12:07 | XMS_ITS | Encounter Summary ---
Author Organization [employer] Address 75 [facility] 7t [place] [address] Care Team Providers Care Tobacco Checkout Clerk Name Role Phone Violeta Boo MD Primary Care Provide r Encounter Details Date Type Department Care Team (Late st Contact Info) Description 01/14/2025 Orders Only GENERIC EXTERNAL DATA DEPARTMENT Provider, Generic External Data Social History Tobacco Use Types Packs/Day Years [...] t he electric, gas, oil or water [facility] threatened to shut off services in your [...] Visit [facility] OPTOMETRY [address] [place] [address] Angella Negrete, OD 230 [place] [address] 02/05/2025 9:15 AM EDT Office Visit [facility] MEDICINE 230 [place] [address] Violeta Boo MD 230 [place] [address] documented as of this encounter Procedures Procedure Name Priority Date/Time Associated Diagnosis Comments CBC WITH AUTO DIFFERENTIAL Routine 01/14/2025 10:48 AM EST SED RATE BY MODIFIED WESTERGREN Routine 01/14/2025 10:48 AM EST documented in this encounter Results * (ABNORMAL) Sed Rate by Modified Westergren (01/14/2025 10:48 AM EST) Erythrocyte Sedimentation Rate 36(H) 0 - 20 MM/HR [facility] Comment:Patients with polycy themia and many hemoglobin abnormalitiesmay have depressed sed rates whereas patients with anemiamay have elevated sed rates. 01/14/2025 10:4 8 AM EST 01/14/2025 10:48 AM EST us Generic External Data Provider LAB BLOOD ORDERAB LES Final Result [facility] [address] [place], [place] [phone] * CBC auto differential (01/14/2025 10:48 AM EST) White Blood Count 10.1 4.8 - 10.8 X10*3/uL [facility] Red Blood Count 4.46 4.20 - 5.50 X10*6/uL [facility] Hemoglobin 13.6 12.0 - 16.0 g/dl [facility] Hematocrit 42.0 37.0 - 47.0 % [facility] Mean Corpuscular Volume 94.2 80.0 - 98.0 fL [facility] Mean Corpuscular Hemoglobin 30.5 27.0 - 33.0 pg [facility] Mean Corpuscular HGB Conc 32.4 31.0 - 35.0 g/dl [facility] Red Cell Distribution Width 14.6 11.0 - 16.0 % [facility] Platelet Count 330 160 - 400 X10*3/uL [facility] Mean Platelet Volume 10.8 9.4 - 12.3 fL [facility] Neutrophils Percent Auto 64.5 45 - 73 % [facility] Imm Gran Pct Auto 0.3 0.0 - 0.4 % [facility] Lymphocytes Percent Auto 24.8 20 - 40 % [facility] Monocytes Percent Auto 7.9 2 - 11 % [facility] Eosinophils Percent Auto 1.9 0 - 4 % [facility] Basophils Percent Auto 0.6 0 - 2 % [facility] NRBC Pct Auto 0.0 0.0 - 0.2 /100WBC [facility] Neutrophils Absolute Auto 6.5 2.0 - 8.3 x10*3/uL [facility] Imm Gran Abs Auto 0.03 0.00 - 0.03 X10*3/uL [facility] Lymphocytes Absolute Auto 2.5 1.2 - 4.9 X10*3/uL [facility] Monocytes Absolute Auto 0.8 0.1 - 1.2 X10*3/uL [facility] Eosinophils Absolute Auto 0.2 0.0 - 0.4 X10*3/uL [facility] Basophils Absolute Auto 0.1 0.0 - 0.2 X10*3/uL [facility] NRBC Abs Auto 0.000 0.0 - 0.012 X10*3/uL [facility] 01/14/2025 10:4 8 AM EST 01/14/2025 10:48 AM EST us Generic External Data Provider LAB BLOOD ORDERAB LES Final Result Performing Organization Address City/State/RUST Co de Phone Number [facility] [address] [place] [phone] documented in this encounter Visit Diagnoses Not on filedocumented in this encounter Additional Health Concerns Assessment Noted Time PHQ-9 Depression Total Score: 17 024 11:23 AM EDT documented as of this encounter Care Teams Tobacco Checkout Clerk Relationship Specialty Start Date End Date Violeta Boo MD [address] [place] [phone] PCP - General Family Medicine 05/21/22 documented as of this encounter
--- OUTSIDE RECORDS SUMMARY | 2025-01-14 12:08 | XMS_ITS | Encounter Summary ---
Author Organization [employer] Address 75 [facility] 7t [place] [address] Care Team Providers Care Concrete Floor Installer Name Role Phone Violeta Boo MD Primary Care Provide r Encounter Details Date Type Department Care Team (Late Contact Info) Description 08/17/2023 Abstract [facility] MEDICINE [address] [place] [address] Violeta Boo MD [address] [place] [address] Social History Tobacco Use Types Packs/Day Years [...] Description 01/25/2025 9:00 AM EDT Office Visit [facility] OPTOMETRY [address] [place] [address] Angella Negrete, OD 230 [place], [place] [phone] 02/05/2025 9:15 AM EDT Office Visit [facility] MEDICINE [address] [place] [address] Violeta Boo MD [address] [place] [address] documented as of this encounter Visit Diagnoses Not on filedocumented in this encounter Care Teams Concrete Floor Installer Relationship Specialty Start Date End Date Violeta Boo MD [address] [place] [address] [phone] PCP - General Family Medicine 05/21/22 documented as of this encounter
--- OUTSIDE RECORDS SUMMARY | 2025-01-14 12:08 | XMS_ITS | Encounter Summary ---
Author Organization [employer] Address 75 [facility] 7t [place] [address] Care Team Providers Care Architectural Draftsman Name Role Phone Violeta Boo MD Primary Care Provide r Encounter Details Date Type Department Care Team ([facility] st Contact Info) Description 11/10/2023 Abstract [facility] MEDICINE [address] [place], [place] [phone] Violeta Boo MD [address] [place] [address] Social History Tobacco Use Types Packs/Day Years [...] Description 01/25/2025 9:00 AM EDT Office Visit [facility] OPTOMETRY [address] [place] [address] Caden, Angella, OD 230 [place] [address] 02/05/2025 9:15 AM EDT Office Visit [facility] MEDICINE [address] [place] [address] Violeta Boo MD [address] [place] [address] documented as of this encounter Visit Diagnoses Not on filedocumented in this encounter Care Teams Architectural Draftsman Relationship Specialty Start Date End Date Violeta Boo MD [address] [place] [phone] PCP - General Family Medicine 05/21/22 documented as of this encounter
--- OUTSIDE RECORDS SUMMARY | 2025-01-14 12:08 | XMS_ITS | Encounter Summary ---
Author Organization [employer] Address 75 [facility] 7t [place] [address] Care Team Providers Care Water System Operator Name Role Phone Violeta Boo MD Primary Care Provide r Reason for Visit * Reason Onset Date Comments Durable Medical Equipment 10/13/2023 Encounter Details Date Type Department Care Team ([facility] st Contact Info) Description 10/13/2023 Telephone [facility] MEDICINE [address] [place] [address] Violeta Boo MD 230 [place], [place] [phone] Durable Medical Equipment Social History Tobacco Use [...] : 2xl Pullups Ensures Flavors Vanilla and Essex Gloves Large Wipes Pt states insurance fax over request. Please contact pt at [phone] German Speaker documented in this encounter Plan of Treatment Upcoming Encounters Date Type Department Care Team (Late st Contact Info) Description 01/25/2025 9:00 AM EDT Office Visit [facility] OPTOMETRY [address] [place] [address] Caden, Angella, OD 230 [place] [address] 02/05/2025 9:15 AM EDT Office Visit [facility] MEDICINE [address] [place] [address] Violeta Boo MD [address] [place] [address] documented as of this encounter Visit Diagnoses Not on filedocumented in this encounter Care Teams Water System Operator Relationship Specialty Start Date End Date Violeta Boo MD [address] [place] [phone] PCP - General Family Medicine 05/21/22 documented as of this encounter
--- OUTSIDE RECORDS SUMMARY | 2025-01-14 12:08 | XMS_ITS | Encounter Summary ---
Author Organization [employer] Address 75 [facility] 7t [place] [address] Care Team Providers Care Telemarketing Sales Representative Name Role Phone Violeta Boo MD Primary Care Provide r Reason for Visit * Reason Onset Date Comments Appointment Request 12/18/2024 Encounter Details Date Type Department Care Team ([facility] st Contact Info) Description 12/18/2024 Telephone [facility] MEDICINE [address] [place] [address] [place] Appointment Request Social History [...] Description 01/25/2025 9:00 AM EDT Office Visit [facility] OPTOMETRY [address] [place] [address] Caden, Angella, OD 230 [place] [address] 02/05/2025 9:15 AM EDT Office Visit [facility] MEDICINE [address] [place] [address] Violeta Boo MD [address] [place] [address] documented as of this encounter Visit Diagnoses Not on filedocumented in this encounter Additional Health Concerns Assessment Noted Time PHQ-9 Depression Total Score: 17 024 11:23 AM EDT documented as of this encounter Care Teams Telemarketing Sales Representative Relationship Specialty Start Date End Date Violeta Boo MD [address] [place] [address] PCP - General Family Medicine 05/21/22 documented as of this encounter
--- OUTSIDE RECORDS SUMMARY | 2025-01-14 12:08 | XMS_ITS | Encounter Summary ---
Author Organization [employer] Address [address] [place] [address] 7 [place] [address] Care Team Providers Care Clinical Specialty Rep Name Role Phone Violeta Boo MD Primary Care Provide r Encounter Details Date Type Department Care Team (Late Contact Info) Description 08/03/2023 Orders Only [facility] MEDICINE [address] [place] [phone] Provider, MD Libra Social History Tobacco Use [...] Description 01/25/2025 9:00 AM EDT Office Visit [facility] OPTOMETRY [address] [place] [address] Angella Negrete, OD 230 [place] [address] 02/05/2025 9:15 AM EDT Office Visit [facility] MEDICINE [address] [place] [address] Violeta Boo MD [address] [place] [address] documented as of this encounter Procedures Procedure Name Priority Date/Time Associated Diagnosis Comments HM COLONOSCOPY Routine 06/11/2022 documented in this encounter Results * Hm Colonoscopy (06/11/2022) Historical Provider [facility] Final Result documented in this encounter Visit Diagnoses Not on filedocumented in this encounter Care Teams Clinical Specialty Rep Relationship Specialty Start Date End Date Violeta Boo MD [address] [place] [address] PCP - General Family Medicine 05/21/22 documented as of this encounter
--- OUTSIDE RECORDS SUMMARY | 2025-01-14 12:08 | XMS_ITS | Encounter Summary ---
Author Organization [employer] Address 75 [facility] 7t [place] [address] Care Team Providers Care Teleservices Representative Name Role Phone Violeta Boo MD Primary Care Provide r Encounter Details Date Type Department Care Team ([facility] st Contact Info) Description 12/20/2024 Telephone [facility] MEDICINE [address] [place], [place] [phone] Violeta Boo MD 230 [place], [place] [phone] Social History Tobacco Use Types Packs/Day Years [...] 4:12 PM EST Tc from [employer] ( case specialist ) wanting to inform she filed a [...] contact [employer] with any further questions at [phone]. documented in this encounter Plan of Treatment Upcoming Encounters Date Type Department Care Team (Late st Contact Info) Description 01/25/2025 9:00 AM EDT Office Visit [facility] OPTOMETRY [address] [place] [address] Angella Negrete, OD [address] [place] [address] 02/05/2025 9:15 AM EDT Office Visit [facility] MEDICINE [address] [place], [place] [phone] Violeta Boo MD [address] [place] [address] documented as of this encounter Visit Diagnoses Not on filedocumented in this encounter Additional Health Concerns Assessment Noted Time PHQ-9 Depression Total Score: 17 024 11:23 AM EDT documented as of this encounter Care Teams Teleservices Representative Relationship Specialty Start Date End Date Violeta Boo MD [address] [place] [address] [phone] PCP - General Family Medicine 05/21/22 documented as of this encounter
--- OUTSIDE RECORDS SUMMARY | 2025-01-14 12:08 | XMS_ITS | Encounter Summary ---
Author Organization [employer] Address 75 [facility] 7t [place] [address] Care Team Providers Care Final Expense Agent Name Role Phone Violeta Boo MD Primary Care Provide r Reason for Visit * Reason Comments Med Refill Encounter Details Date Type Department Care Team ([facility] st Contact Info) Description 03/22/2024 Refill [facility] MEDICINE [address] [place] [address] Violeta Boo MD [address] [place] [address] Dermatitis Social History Tobacco Use Types Packs/Day [...] Description 01/25/2025 9:00 AM EDT Office Visit [facility] OPTOMETRY [address] [place] [address] Caden, Angella, OD 230 [place] [address] 02/05/2025 9:15 AM EDT Office Visit [facility] MEDICINE [address] [place] [address] Violeta Boo MD [address] [place] [address] documented as of this encounter Visit Diagnoses Diagnosis Dermatitis Contact dermatitis and other eczema, due to unspecified cause documented in this encounter Care Teams Final Expense Agent Relationship Specialty Start Date End Date Violeta Boo MD [address] [place] [address] PCP - General Family Medicine 05/21/22 documented as of this encounter
--- OUTSIDE RECORDS SUMMARY | 2025-01-14 12:08 | XMS_ITS | Encounter Summary ---
Author Organization [employer] Address 75 [facility] 7 [place] [address] Care Team Providers Care Labor Arbitrator Name Role Phone Violeta Boo MD Primary Care Provide r Reason for Visit * Reason Onset Date Comments Durable Medical Equipment 12/18/2024 Encounter Details Date Type Department Care Team ([facility] st Contact Info) Description 12/18/2024 Telephone [facility] [address] [place] [address] Violeta Boo MD 230 [place] [address] Durable Medical Equipment Social History Tobacco Use [...] DME for Walker signed and faxed to [facility] Skein Yarn Dyer . Confirmation received and sent to scan. If patient calls to check status on above, please advise them to contact [facility]. . * Telephone Encounter - Rubia Cain - 12/20/2024 4:05 PM EST DME RX for Walker generated and placed on providers desk for signature. * Telephone Encounter - Maddi Boggs - 12/18/2024 11:54 AM EST Tc from pt stating she was contacted for a wheelchair but pt denied. Pt stated she needs a walker. If any questions contact pt at [phone] documented in this encounter Plan of Treatment Upcoming Encounters Date Type Department Care Team (Late st Contact Info) Description 01/25/2025 9:00 AM EDT Office Visit [facility] OPT[facility] [address] [place] [address] Angella Negrete, OD 230 [place], [place] [phone] 02/05/2025 9:15 AM EDT Office Visit [facility] MED[facility] [address] [place], [place] [phone] Violeta Boo MD [address] [place], [place] [phone] documented as of this encounter Visit Diagnoses Not on filedocumented in this encounter Additional Health Concerns Assessment Noted Time PHQ-9 Depression Total Score: 17 024 11:23 AM EDT documented as of this encounter Care Teams Labor Arbitrator Relationship Specialty Start Date End Date Violeta Boo MD [address] [place] [phone] PCP - General Family Medicine 05/21/22 documented as of this encounter
--- OUTSIDE RECORDS SUMMARY | 2025-01-14 12:08 | XMS_ITS | Encounter Summary ---
Author Organization [employer] Address [address] [place] [address] [address] [place] [address] Care Team Providers Care Book Sewing Machine Operator Name Role Phone Violeta Boo MD Primary Care Provide r Reason for Visit * Reason Onset Date Comments Reasonable Accommodation 12/26/2024 I arellano d the patient regarding a reasonable accommodation request, from [employer]. The form lists the patient's medical conditions, but it does not state what the accommodation is. There was no answer, and I reached a recording stating that the person's voicemail is not not set up. I then called her director of healthcare systems, Nikita, and she stated that she is not sure of what the patient is requesting. She agreed to ask the patient to return my call at ext [phone]. Encounter Details Date Type Department Care Team (Late st Contact Info) Description 12/26/2024 Telephone [facility] [address] [place], [place] [phone] Violeta Boo MD 230 [place], [place] [phone] Reasonable Accommodation (I called the patient regarding a reasonable accommodation request, from [employer]. The form lists the patient's medical conditions, but it does not state what the accommodation is. There was no answer, and I reached a recording stating that the person's voicemail is not not set up. I then called her director of healthcare systems, Nikita, and she stated that she is not sure of what the patient is requesting. She agreed to ask the patient to return my call at ext [phone].) Social History Tobacco Use Types Packs/Day Years [...] patient regarding a reasonable accommodation request, from [employer]. The form lists the patient's medical conditions, but it does not state what the accommodation is. There was no answer, and I reached a recording stating that the person's voicemail is not not set up. I then called her director of healthcare systems, Nikita, and she stated that she is not sure of what the patient is requesting. She agreed to ask the patient to return my call at ext [phone]. documented in this encounter Plan of Treatment Upcoming Encounters Date Type Department Care Team (Late st Contact Info) Description 01/25/2025 9:00 AM EDT Office Visit [facility] [address] [place] [address] Caden, Angella, OD 230 [place] [address] 02/05/2025 9:15 AM EDT Office Visit [facility] [address] [place] [address] Violeta Boo MD [address] [place] [address] documented as of this encounter Visit Diagnoses Not on filedocumented in this encounter Additional Health Concerns Assessment Noted Time PHQ-9 Depression Total Score: 17 024 11:23 AM EDT documented as of this encounter Care Teams Book Sewing Machine Operator Relationship Specialty Start Date End Date Violeta Boo MD 230 [place] [address] PCP - General Family Medicine 05/21/22 documented as of this encounter
--- OUTSIDE RECORDS SUMMARY | 2025-01-14 12:08 | XMS_ITS | Encounter Summary ---
Author Organization [employer] Address 75 [facility] 7 [place] [address] Care Team Providers Care Doctorate Of Chiropractic Name Role Phone Violeta Boo MD Primary Care Provide r Reason for Visit * Reason Onset Date Comments call back required 12/24/2024 Encounter Details Date Type Department Care Team ([facility] st Contact Info) Description 12/24/2024 Telephone [facility] MED[facility] [address] [place] [address] Violeta Boo MD 230 [place] [address] call back required Social History Tobacco Use [...] has a 41% no show rate at [facility]. Alem advised RN cannot comment on medication compliance or decision making capacity as provider notes do not comment on patients ability. Alem advised last appointment with PCP was regarding chronic conditions and did not mention any concerns provider has in regards to patient. Alem to f/u PRN. * Telephone Encounter - Luis Enrique Downs - 12/24/2024 10:56 AM EST TC from alem with [facility] Senior Service / Adult Protective [...] any concerns for this patient? Alem # [phone] ext [phone] documented in this encounter Plan of Treatment Upcoming Encounters Date Type Department Care Team (Late st Contact Info) Description 01/25/2025 9:00 AM EDT Office Visit [facility] OPTOMETRY [address] [place] [address] Caden, Angella, OD 230 [place] [address] 02/05/2025 9:15 AM EDT Office Visit [facility] MEDICINE [address] [place] [address] Violeta Boo MD 230 [place] [address] documented as of this encounter Visit Diagnoses Not on filedocumented in this encounter Additional Health Concerns Assessment Noted Time PHQ-9 Depression Total Score: 17 08/13/ 024 11:23 AM EDT documented as of this encounter Care Teams Doctorate Of Chiropractic Relationship Specialty Start Date End Date Violeta Boo MD [address] [place] [address] [phone] PCP - General Family Medicine 05/21/22 documented as of this encounter
--- OUTSIDE RECORDS SUMMARY | 2025-01-14 12:08 | XMS_ITS | Encounter Summary ---
Author Organization [employer] Address 75 [facility] 7t [place] [address] Care Team Providers Care Psychologist Clinical Name Role Phone Violeta Boo MD Primary Care Provide r Reason for Visit * Reason Onset Date Comments Appointment Request 11/11/2023 Encounter Details Date Type Department Care Team ([facility] Contact Info) Description 11/11/2023 Telephone [facility] MEDICINE [address] [place] [address] Violeta Boo MD 230 [place], [place] [phone] Appointment Request Social History Tobacco Use Types [...] on 11/16/23 due to being covid positive music writer did cancel appt documented in this encounter Plan of Treatment Upcoming Encounters Date Type Department Care Team (Late st Contact Info) Description 01/25/2025 9:00 AM EDT Office Visit [facility] OPTOMET[facility] [address] [place] [address] Caden, Angella, OD 230 [place] [address] 02/05/2025 9:15 AM EDT Office Visit [facility] MEDICINE [address] [place] [address] Violeta Boo MD [address] [place] [address] documented as of this encounter Visit Diagnoses Not on filedocumented in this encounter Care Teams Psychologist Clinical Relationship Specialty Start Date End Date Violeta Boo MD [address] [place] [address] PCP - General Family Medicine 05/21/22 documented as of this encounter
--- OUTSIDE RECORDS SUMMARY | 2025-01-14 12:08 | XMS_ITS | Encounter Summary ---
Author Organization [employer] Address 75 [facility] 7 [place] [address] Care Team Providers Care Lay Out Machine Operator Name Role Phone Violeta Boo MD Primary Care Provide r Reason for Visit * Reason Onset Date Comments Appointment Request 12/27/2024 Encounter Details Date Type Department Care Team ([facility] Contact Info) Description 12/27/2024 Telephone [facility] MEDICINE 230 [place] [address] Violeta Boo MD 230 [place], [place] [phone] Appointment Request Social History Tobacco Use Types [...] 10:51 AM EST Tc from Alem with [facility] requesting for pcp to perform a cognitive test during appt 02/05 to determine weather pt has any decisional capacity or memory issues. If any questions you can contact Alem at [phone]. documented in this encounter Plan of Treatment Upcoming Encounters Date Type Department Care Team (Late st Contact Info) Description 01/25/2025 9:00 AM EDT Office Visit [facility] OPTOM[facility] [address] [place] [address] Angella Negrete, OD 230 [place] [address] 02/05/2025 9:15 AM EDT Office Visit [facility] MEDICINE [address] [place] [address] Violeta Boo MD 230 [place] [address] documented as of this encounter Visit Diagnoses Not on filedocumented in this encounter Additional Health Concerns Assessment Noted Time PHQ-9 Depression Total Score: 17 08/13/ 024 11:23 AM EDT documented as of this encounter Care Teams Lay Out Machine Operator Relationship Specialty Start Date End Date Violeta Boo MD 230 [place] [address] PCP - General Family Medicine 05/21/22 documented as of this encounter
--- OUTSIDE RECORDS SUMMARY | 2025-01-14 12:08 | XMS_ITS | Encounter Summary ---
Author Organization [employer] Address 75 [facility] 7t [place] [address] Care Team Providers Care Gamb Cutter Name Role Phone Violeta Boo MD Primary Care Provide r Reason for Visit * Reason Comments Med Refill Encounter Details Date Type Department Care Team ([facility] st Contact Info) Description 01/04/2025 Refill [facility] MED[facility]INE [address] [place] [address] Violeta Boo MD 230 [place] [address] Social History Tobacco Use Types Packs/Day Years [...] Description 01/25/2025 9:00 AM EDT Office Visit [facility] OPT[facility] [address] [place] [address] CadenAngella lea, OD 230 [place] [address] 02/05/2025 9:15 AM EDT Office Visit [facility] MEDICINE [address] [place] [address] Violeta Boo MD [address] [place] [address] documented as of this encounter Visit Diagnoses Not on filedocumented in this encounter Additional Health Concerns Assessment Noted Time PHQ-9 Depression Total Score: 17 024 11:23 AM EDT documented as of this encounter Care Teams Gamb Cutter Relationship Specialty Start Date End Date Violeta Boo MD 230 [place] [address] PCP - General Family Medicine 05/21/22 documented as of this encounter
--- OUTSIDE RECORDS SUMMARY | 2025-01-14 12:08 | XMS_ITS | Encounter Summary ---
Author Organization [employer] Address 75 [facility] 7 [place] [address] Care Team Providers Care Tetryl Screen Operator Name Role Phone Violeta Boo MD Primary Care Provide r Reason for Visit * Reason Onset Date Comments FYI 01/11/2025 Encounter Details Date Type Department Care Team ([facility] Contact Info) Description 01/11/2025 Telephone [facility] [address] [place] [address] Violeta Boo MD [address] [place], [place] [phone] FYI Social History Tobacco Use Types Packs/Day [...] Description 01/25/2025 9:00 AM EDT Office Visit [facility] OPT[facility] [address] [place] [address] Caden, Angella, OD 230 [place] [address] 02/05/2025 9:15 AM EDT Office Visit [facility] [address] [place] [address] Violeta Boo MD [address] [place] [address] documented as of this encounter Visit Diagnoses Not on filedocumented in this encounter Additional Health Concerns Assessment Noted Time PHQ-9 Depression Total Score: 17 08/13/ 024 11:23 AM EDT documented as of this encounter Care Teams Tetryl Screen Operator Relationship Specialty Start Date End Date Violeta Boo MD [address] [place] [address] PCP - General Family Medicine 05/21/22 documented as of this encounter
--- OUTSIDE RECORDS SUMMARY | 2025-01-14 12:08 | XMS_ITS | Encounter Summary ---
Author Organization [employer] Address 75 [facility] 7t [place] [address] Care Team Providers Care Licensed Tax Consultant Name Role Phone Violeta Boo MD Primary Care Provide r Reason for Visit * Reason Onset Date Comments Augustine askew needed. 12/20/2024 Encounter Details Date Type Department Care Team ([facility] st Contact Info) Description 12/20/2024 Telephone [facility] MEDICINE [address] [place] [address] Violeta Boo MD 230 [place], [place] [phone] Augustine askew needed. 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 documented in this encounter Plan of Treatment Upcoming Encounters Date Type Department Care Team (Late st Contact Info) Description 01/25/2025 9:00 AM EDT Office Visit [facility] OPTOMETRY [address] [place] [address] Caden, Angella, OD 230 [place] [address] 02/05/2025 9:15 AM EDT Office Visit [facility] MEDICINE [address] [place] [address] Violeta Boo MD [address] [place] [address] documented as of this encounter Visit Diagnoses Not on filedocumented in this encounter Additional Health Concerns Assessment Noted Time PHQ-9 Depression Total Score: 17 024 11:23 AM EDT documented as of this encounter Care Teams Licensed Tax Consultant Relationship Specialty Start Date End Date Violeta Boo MD 230 [place] [address] PCP - General Family Medicine 05/21/22 documented as of this encounter
--- OUTSIDE RECORDS SUMMARY | 2025-01-14 12:08 | XMS_ITS | Encounter Summary ---
Author Organization [employer] Address 75 [facility] 7 [place] [address] Care Team Providers Care Coating Supervisor Name Role Phone Violeta Boo MD Primary Care Provide r Reason for Visit * Reason Onset Date Comments New Med Request 12/14/2024 Encounter Details Date Type Department Care Team ([facility] st Contact Info) Description 12/14/2024 Telephone [facility] MEDICINE 230 [place] [address] Violeta Boo MD 230 [place] [address] New Med Request Social History Tobacco Use [...] 12:00 PM EST TC placed to patient [phone] in regards to below message via [employer] (Justin #[id number]). Patient reports she was to be Rx'd [...] No further details provided. Contact pt at [phone] (stateless) * Telephone Encounter - Leda Ruiz RN - 12/14/2024 9:57 AM EST TC placed to [facility] pharmacy to inquire on RX prescriber. RN was informed patient receives Ozempic from Shaheen Yi NP and patient last received medication on 10/31/24 for a 28 day supply. RN called patient [phone] in regards to above message. Patient reports he sees this provider on her tablet . Patient reports she has never seen this doctor in person and is not sure what kind of doctor he is. Patient reports she called Shaheen's office at [phone] to request a dose increase and was advised to call PCP office. RN placed patient on hold and called [phone] to inquire further. RNwas informed the facility is called [facility] and their home office is in [place], they are a TELEHEALTH service thru the [...] refills. RN conference [facility] the patient for an appointment [...] Description 01/25/2025 9:00 AM EDT Office Visit [facility] OPTOMETRY [address] [place], [place] [phone] Angella Negrete, OD [address] [place], [place] [phone] 02/05/2025 9:15 AM EDT Office Visit [facility] MEDICINE 230 [place], [place] [phone] Violeta Boo MD [address] [place] [address] [phone] documented as of this encounter Visit Diagnoses Not on filedocumented in this encounter Additional Health Concerns Assessment Noted Time PHQ-9 Depression Total Score: 17 024 11:23 AM EDT documented as of this encounter Care Teams Coating Supervisor Relationship Specialty Start Date End Date Violeta Boo MD [address] [place] [address] [phone] PCP - General Family Medicine 05/21/22 documented as of this encounter
--- OUTSIDE RECORDS SUMMARY | 2025-01-14 12:08 | XMS_ITS | Encounter Summary ---
Author Organization [employer] Address 75 [facility] 7t [place] [address] Care Team Providers Care Strap Folding Machine Operator Name Role Phone Violeta Boo MD Primary Care Provide r Reason for Visit * Reason Onset Date Comments Appt cancelation 03/02/2024 Encounter Details Date Type Department Care Team ([facility] st Contact Info) Description 03/02/2024 Telephone [facility] MEDICINE 230 [place] [address] Violeta Boo MD [address] [place], [place] [phone] Appt cancelation Social History Tobacco Use Types [...] 04/27 due to being referred to outside surgical instrument repair specialist documented in this encounter Plan of Treatment Upcoming Encounters Date Type Department Care Team (Late st Contact Info) Description 01/25/2025 9:00 AM EDT Office Visit [facility] OPTOMETRY [address] [place] [address] Caden, Angella, OD 230 [place] [address] 02/05/2025 9:15 AM EDT Office Visit [facility] MEDICINE [address] [place] [address] Violeta Boo MD [address] [place] [address] documented as of this encounter Visit Diagnoses Not on filedocumented in this encounter Care Teams Strap Folding Machine Operator Relationship Specialty Start Date End Date Violeta Boo MD [address] [place] [address] PCP - General Family Medicine 05/21/22 documented as of this encounter
--- OUTSIDE RECORDS SUMMARY | 2025-01-14 12:08 | XMS_ITS | Encounter Summary ---
Author Organization [employer] [facility] Address [address] [place] [address] 7t [place] [address] Care Team Providers Care Scruff Worker Name Role Phone Violeta Boo MD Primary Care Provide r Encounter Details Date Type Department Care Team (Latest Contact Info) Description 05/27/2022 Abstract [facility] CONVERSIONS Dental, Provider, DDS Social History [...] Description 01/25/2025 9:00 AM EDT Office Visit [facility] OPTOMETRY [address] [place] [address] Angella Negrete, OD 230 [place] [address] 02/05/2025 9:15 AM EDT Office Visit [facility] MEDICINE [address] [place] [address] Violeta Boo MD [address] [place] [address] documented as of this encounter Visit Diagnoses Not on filedocumented in this encounter Care Teams Scruff Worker Relationship Specialty Start Date End Date Violeta Boo MD [address] [place] [address] PCP - General Family Medicine 05/21/22 documented as of this encounter
--- OUTSIDE RECORDS SUMMARY | 2025-01-14 12:08 | XMS_ITS | Encounter Summary ---
Author Organization [employer] Address 75 [facility] 7 [place] [address] Care Team Providers Care Communication Engineer Name Role Phone Violeta Boo MD Primary Care Provide r Reason for Visit * Reason Onset Date Comments [facility] request 01/01/2025 Encounter Details Date Type Department Care Team ([facility] st Contact Info) Description 01/01/2025 Telephone [facility] MEDICINE [address] [place] [address] Violeta Boo MD [address] [place] [address] [facility] request Social History Tobacco Use [...] PM EST RN received incoming fax from [employer] requesting PCP signature for GI infections testing. RN called [facility] [phone] to inquire on where this order request cam from as patient has NOT seen PCP since 07/2024 and this lab was not ordered by PCP. RN was informed the patient contacted this [facility] and requested to have the testing performed and they are looking for PCP authorization. RN advised office, PCP will not be signing the form as the patient has not been seen since for any GI concern recently. RN advised [employer] patient has an upcoming appointment on 02/05/25 [...] Description 01/25/2025 9:00 AM EDT Office Visit [facility] OPTOMETRY [address] [place] [address] Angella Negrete, OD 230 [facility] [place] [address] 02/05/2025 9:15 AM EDT Office Visit [facility] MEDICINE [address] [place], [place] [phone] Violeta Boo MD [address] [place], [place] [phone] documented as of this encounter Visit Diagnoses Not on filedocumented in this encounter Additional Health Concerns Assessment Noted Time PHQ-9 Depression Total Score: 17 024 11:23 AM EDT documented as of this encounter Care Teams Communication Engineer Relationship Specialty Start Date End Date Violeta Boo MD [address] [place], [place] [phone] PCP - General Family Medicine 05/21/22 documented as of this encounter
[2025-01-14 12:18] LABS: Alanine Aminotransferase 19 U/L (0-31); Albumin Level 3.8 g/dL (3.5-5.0); Alkaline Phosphatase 138 U/L (39-117); Anion Gap 14 (12-20); Aspartate Amino Transferase 23 U/L (5-31); Bilirubin Total 0.4 mg/dL (0.0-1.0); Blood Urea Nitrogen 25 mg/dL (9-16); C Reactive Protein 0.37 mg/dL (< or = 0.50); Calcium 9.7 mg/dL (8.4-10.2); Carbon Dioxide 29 mmol/L (22-29); Chloride 103 mmol/L (96-108); Estimated Glomerular Filt Rate 35; Glucose Random 100 mg/dL (60-115); Potassium 4.4 mmol/L (3.3-5.1); Sodium 142 mmol/L (135-145); Total Protein 7.2 g/dL (6.5-8.0)
== END 2025-01-14 10:26 | disposition home or self-care (01) ==
LOC: HO.LAB 10:25
PROVIDERS: Surgery; PCP Internal Medicine; Visit Provider Student in an Organized Health Care Education/Training Program
DX: M13.80 Other specified arthritis, unspecified site (principal); M1A.0790 Idiopathic chronic gout, unspecified ankle and foot, without tophus (tophi)
CPT/HCPCS: 36415; 80053; 84550; 85025; 85652; 86140; 99212

== ENCOUNTER 2025-01-17 09:35 | Outpatient (AMB) | payer OTHER, SELFPAY ==
--- NOTE | 2025-01-17 09:37 | A.OFFVIS_ITS ---
Vital Signs 01/17/25 09:43 Height 5 ft 3 in Weight 258 lb 6.108 oz BMI 45.8 BP 124/62 Blood Pressure Location Lt radial Position Sitting Pulse 89 Pulse Source Pulse Oximeter Pulse Oximetry (%) 90 L Oxygen Delivery Method Room Air Intake Visit Reasons: PsA Intake Note: Patient presents for PsA. Front End Manager Required: Yes Front End Manager Language: Kiln Packer Services: Front End Manager Offered & Declined Front End Manager Name: Jade Martinez Information Interpreted: non-clinical & clinical Accompanied by: AUDIO PRODUCTION INSTRUCTOR Allergies peanut [PEANUT] Allergy (Severe, Verified 01/17/25 09:43) ITCHY, SWELLING seafood Allergy (Severe, Verified 01/17/25 09:43) Rash tomato [TOMATO] Allergy (Severe, Verified 01/17/25 09:43) ITCHY, SWELLING aspirin [ASA] Allergy (Intermediate, Verified 01/17/25 09:43) ITCHY,ANXIOUS, itching, rash Iodinated Contrast Media [IV CONTRAST] Allergy (Intermediate, Verified 01/17/25 09:43) HIVES plantain [PLANTAIN] Allergy (Intermediate, Verified 01/17/25 09:43) ITCHY/SWELLING Medication List - Last Reconciled 01/17/25 by Solange Ojeda MD acetaminophen 1,000 mg PO Q8H PRN albuterol sulfate 90 mcg/actuation 2 puffs inhalation Q4-6H PRN 30 days allopurinol 300 mg PO QAM atorvastatin 80 mg PO DAILY calcium carbonate-vitamin D3 600 mg-10 mcg (400 unit) 1 tab PO BID clotrimazole 1% appl topical DAILY colchicine 0.6 mg PO Q OTHER DAY cyanocobalamin (vitamin B-12) 1,000 mcg sublingual DAILY cyclobenzaprine 5 mg PO TID PRN 30 days diclofenac sodium 1% 4 grams topical QID diphenhydramine HCl 2% (Benadryl) 1 appl topical BID doxepin 25 mg PO BEDTIME estradiol 0.01%(0.1mg/gram) grams vaginal ezetimibe 10 mg PO QAM ferrous sulfate 325 mg PO QAM fexofenadine 180 mg PO QAM fluticasone propion-salmeterol 250-50 mcg/dose 1 ea PO BID fluticasone propionate 50 mcg/actuation 2 sprays intranasal DAILY 30 days gabapentin 300 mg PO BID hydrochlorothiazide 12.5 mg PO QAM inhalational spacing device As directed lancets As directed latanoprost 0.005% 1 drp ophthalmic (eye) BEDTIME losartan 100 mg PO QAM melatonin 1 mg PO BEDTIME PRN metoprolol succinate ER 50 mg PO DAILY montelukast 10 mg PO QPM nystatin 1 appl topical BID olanzapine 20 mg PO BEDTIME olanzapine 15 mg PO BEDTIME Otezla (apremilast) 30 mg PO BID NS Otezla Starter (apremilast) lot # [id number] NS pantoprazole 40 mg PO DAILY semaglutide (Ozempic) 0.25 mg subcut QWEEK sertraline 100 mg PO DAILY sertraline 50 mg PO QAM [thumb spica As directed] HPI Comments Details: Patient is a 74-year-old morbidly obese female with hyperlipidemia, hypertension complicated by CAD, COPD with restrictive lung disease, osteoporosis, psoriatic arthritis, non crystal proven non tophaceous gout, fibromyalgia and polyarticular osteoarthritis here today for follow up Interval History: Patient last seen 07/30/[address] Stallworth. At that time she had recently started Otezla 30 mg twice daily and reported somewhat improvement in her rashes and her joints. Today, Patient reports that she feels more or less okay. Complaining of whole-body pain including the base of her thumbs bilaterally that prevent her from opening jars at times. She also notes that her shins hurt her as well. Her bilateral shoulders hurt as well as her knees. She also notes her lower back occasionally hurts as well. No further rashes apart from the hyperpigmentation of her bilateral lower extremities No gout flare since the last visit Rheumatologic History: PsA Diagnosed 09/2022 as seronegative RA HCQ started 09/2022 Methotrexate added 11/2022 effective but DC 02/2023 d.t renal insufficiency HCQ DC'd 06/2023 Rash suspicious for psoriasis noted 04/2024. Dx changed PsA Otezla effective Initial history: This is a 72-year-old female with a pretty extensive past medical history including CAD, hypertension, prediabetes, generalized osteoarthritis who presents for evaluation of diffuse pain. Patient has had multiple joint pains for many years. She has had multiple knee intra-articular steroid injections with short-lived relief. She also had had multiple injections in her back by pain management. Patient also complains of some occasional swelling and stiffness of her hands. Two years ago she had rashes on her neck and upper back. She saw Dermatology an there were plans for a skin biopsy but does lesions were never biopsied. Those lesions are hypopigmented now. MRI of her right wrist 09/2022 showed evidence of radioscaphoid synovitis. She was initially diagnosed with seronegative rheumatoid arthritis however she had a rash suspicious for psoriasis noted in 04/2024 and the diagnosis was changed to psoriatic arthritis Non crystal proven gout Ddx 2019 Initial uric acid level in 2019 9.8 Allopurinol Fibromyalgia OA Osteopenia with low FRAX DEXA 06/2022. Osteopenia involving her left femur neck -1.2 and AP spine -1.4 Current Rheumatology Medication(s): Otezla 30 mg b.i.d. Allopurinol 300 mg daily Colchicine 0.6mg every other day [facility] Medical History (Updated 01/17/25 @ 10:03 by Solange Ojeda MD) Pain in left shoulder Screening for viral disease COPD (chronic obstructive pulmonary disease) Restrictive lung disease Allergic rhinitis ZOEY (obstructive sleep apnea) Edema PVD (peripheral vascular disease) On beta prashant at home Osteopenia Gout Osteoarthritis Rheumatoid arthritis Anemia Panic attacks Anxiety Schizophrenia Pre-diabetes CKD (chronic kidney disease), stage III GERD (gastroesophageal reflux disease) Fatty liver Myocardial infarction CAD (coronary artery disease) Angina pectoris HTN (hypertension) Morbid obesity ZOEY treated with BiPAP COPD (chronic obstructive pulmonary disease) Allergic rhinitis Surgical History History of colonoscopy (~2021) History of lumpectomy of right breast (06/21/22) History of bladder suspension procedure History of esophagogastroduodenoscopy (EGD) Hx of colonoscopy History of hysterectomy History of tubal ligation History of lumpectomy of right breast Family History Mother Leukemia Brother Colon cancer Brother Leukemia Sister Breast cancer Sister Vaginal cancer Sister Breast cancer Sister Breast cancer Daughter Thyroid disease Social History Alcohol intake: never Patient Tobacco Use Status: Never used Tobacco Second Hand Smoke Exposure: No Female Reproductive History Menstrual Age of Menarche: 13 Review of Systems Const Details: Review of Systems Constitutional: Denies fever, chills, weight loss ENT: Denies vision changes, eye pain or eye redness, dental caries, dry mouth GI: Denies nausea, vomiting, diarrhea, abdominal pain, change in BM Pulm: Denies SOB, BRYAN, hemoptysis, wheezing Cards: Denies chest pain, palpitations Skin: Denies Raynaud's, rash, nail changes, photosensitivity, SLASHER OPERATOR: Denies headaches, weakness, paresthesias, recurrent falls MSK: as per HPI All other systems reviewed and are unremarkable except noted above Physical Exam Vital Signs: Last Vital Signs Pulse 89 01/17/25 09:43 BP 124/62 01/17/25 09:43 Pulse Ox 90 L 01/17/25 09:43 Oxygen Delivery Method Room Air 01/17/25 09:43 BMI result Body Mass Index 45.8 Vital signs reviewed Physical Examination CONSTITUITIONAL Patient alert and cooperative. Well appearing and in no apparent painful distress. Patient morbidly obese. Examined in the chair. HEENT Conjunctiva and sclera clear. ?Pupils equal round and reactive to light. ?No lymphadenopathy. ? CHEST/RESPIRATORY SYSTEM Normal respiratory effort and able to speak in complete sentences. ?Clear to auscultation bilaterally. ?No crackles, rales, rhonchi, wheezes heard. CARDIAC SYSTEM Regular rate and rhythm. ?S1 and S2 heard no murmurs. ?Radial pulses intact bilaterally MSK Hands: ?Good energy derivatives trader strength bilaterally. No deformities noted. ?No synovitis noted to the MCPs, PIPs or DIPs. ?No tenderness to palpation of these joints. Had tenderness to palpation of the dorsum of the hand consistent with fibromyalgia type pain Wrists: ?Full range of motion at the wrists without pain. ?No tenderness to palpation or synovitis noted to the wrists. Elbows: Full range of motion without pain. No tenderness, weakness, swelling, increased warmth or erythema. Shoulders: Decreased active range of motion secondary to pain but able to have full range of motion on passive movement. Tenderness to palpation of bilateral AC joint. Positive Mckeon Wale impingement test bilaterally Hips: Unable to examine fully as patient in the chair Hip bursa: Tenderness to palpation Knees: ?Full range of motion. ?No tenderness, swelling, increased warmth or erythema.? Bilateral crepitations felt Ankles: Full range of motion. ?No tenderness, swelling, increased warmth or erythema.? Feet: ?Negative squeeze test. ?No tenderness to palpation or swelling of the MTPs. Tender points:?Tenderness to palpation of the bilateral trapezius, supraspinatus, greater trochanters, anterior costochondral junctions, bilateral gluteal areas, bilateral suboccipital muscle insertions Hyperpigmentation noted to the anterior surface of her bilateral legs distally. SKIN Skin intact without rashes. Results Reviewed Results Reviewed: Laboratory Tests 08/22/24 01/14/25 10:54 10:48 WBC 10.1 RBC 4.46 Hgb 13.6 Hct 42.0 Plt Count 330 Sodium 142 Potassium 4.4 Chloride 103 Carbon Dioxide 29 BUN 25 H Creatinine 1.38 1.47 H Estimated GFR 38 35 Total Bilirubin 0.4 AST 23 ALT 19 Alkaline Phosphatase 138 H C-Reactive Protein 0.37 Total Protein 7.2 Albumin 3.8 Laboratory Tests 05/29/19 08/24/22 15:45 12:00 Rheumatoid Factor < 15.0 Cycl Citrul Peptide IgG <16 AR Screen Positive H NEGATIVE AR Titer 1:320 H DEXA 06/2022 FINDINGS: AP SPINE L1-L2 (excluding L3 and L4): The data of L1-L4 has been changed to exclude the L3 and L4 vertebral bodies, because degenerative changes at these levels may cause overestimation of lumbar spine density. Current: BMD 1.002 g/cm2, Z-score -0.9, T-score -1.4, osteopenia, 2.6% increase from previous, 1.3% increase from baseline (<5% change is not significant). Prior: BMD 0.977 g/cm2. Baseline: BMD 0.989 g/cm2. LEFT FEMUR, NECK: Current: BMD 0.864 g/cm2, Z-score -0.3, T-score -1.2, osteopenia. Prior: BMD 0.918 g/cm2. Baseline: BMD 0.972 g/cm2. LEFT FEMUR, TOTAL: Current: BMD 0.977 g/cm2, Z-score 0.4, T-score -0.2, normal, 0.6% increase from previous, 0.4% increase from baseline (<5% change is not significant). Prior: BMD 0.971 g/cm2. Baseline: BMD 0.973 g/cm2. FRAX 5.5/0.6 Assessment & Plan Assessment & Plan (1) Psoriatic arthritis: Comment: Diagnosed 09/2022 as seronegative RA HCQ started 09/2022 Methotrexate added 11/2022 effective but DC 02/2023 d.t renal insufficiency HCQ DC'd 06/2023 Rash suspicious for psoriasis noted 04/2024. Dx changed PsA Otezla effective Code(s): L40.50 - Arthropathic psoriasis, unspecified Category: Medical Plan: #PsA Patient is a 74-year-old morbidly obese female with psoriatic arthritis. Currently on Otezla without any evidence of active synovitis or dactylitis on examination. Her joint pain and whole-body pain is likely secondary to osteoarthritis and fibromyalgia. Her creatinine clearance is 64 when calculated today. She is okay to continue Otezla at the current dose Plan - Otezla 30mg bid - RTC 4 months - Labs before visit:CBC, CMP, ESR, CRP (2) Gout: Comment: Initial uric acid level in 2019 9.8 Code(s): M10.9 - Gout, unspecified Category: Medical Qualifiers: Gout site: toe Gout etiology: idiopathic Chronicity: chronic Laterality: unspecified laterality Presence of tophus: without tophus Qualified Code(s): M1A.0790 - Idiopathic chronic gout, unspecified ankle and foot, without tophus (tophi) Plan: #Non crystal proven gout Patient with non crystal proven gout currently on allopurinol therapy. Uric acid at goal Plan - Allopurinol 300mg daily - Stop colchicine - UA goal <6 - RTC 4 months - Labs before visit: UA (3) Fibromyalgia, primary: Code(s): M79.7 - Fibromyalgia Category: Medical Plan: #Fibromyalgia Patient with fibromyalgia as well as polyarticular osteoarthritis. Currently on gabapentin. She denies having any side effects from gabapentin such as dizziness or sleepiness. I think we can increase the medication to see if she gets additional benefit Plan - Increase gabapentin to 300mg tid - Encouraged exercise and stretching - Encouraged doing activities outside of the house (4) Osteopenia: Code(s): M85.80 - Other specified disorders of bone density and structure, unspecified site Qualifiers: Osteopenia location: multiple sites Qualified Code(s): M85.89 - Other specified disorders of bone density and structure, multiple sites Plan: #Osteopenia Patient with osteopenia based on DEXA done in 2021. Fracture index did not indicate treatment. She is due for a repeat DEXA now Plan - Repeat DEXA scan - Continue Ca-Vit D supplementation - RTC 4 months - Labs before visit: Vit D (5) Polyarticular osteoarthritis: Code(s): M15.9 - Polyosteoarthritis, unspecified Plan: #Polyarticular OA Patient with polyarticular osteoarthritis involving bilateral knees, bilateral hands and bilateral shoulders. Today her shoulders are the most painful and I will send her to physical therapy. If there is no improvement with physical therapy I will trial steroid injections. 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 Benefits include decreased joint pain and morbidity Risks include GI upset including diarrhea, hypersensitivity reactions, significant weight loss, symptoms of depression Patient's creatinine clearance today is 64ml/min We will need to reduce the dose once her creatinine clearance falls below 30 Plan I spent 38 minutes reviewing the record and labs, taking a history, examining the patient, discussing the treatment plan, counselling the patient and documenting in the medical record Orders: Orders XR DEXA axial skeleton Today L40.50 - Arthropathic psoriasis, unspecified, M85.80 - Other specified disorders of bone density and structure, unspecified site Comprehensive Met. Panel 4 Months L40.50 - Arthropathic psoriasis, unspecified, M85.80 - Other specified disorders of bone density and structure, unspecified site C Reactive Protein 4 Months L40.50 - Arthropathic psoriasis, unspecified, M85.80 - Other specified disorders of bone density and structure, unspecified site Vitamin D 25-OH Total 4 Months E55.9 - Vitamin D deficiency, unspecified Uric Acid 4 Months M1A.0790 - Idiopathic chronic gout, unspecified ankle and foot, without tophus (tophi) PT Evaluation and Treatment Today M19.011 - Primary osteoarthritis, right shoulder, M19.012 - Primary osteoarthritis, left shoulder Complete Blood Count Auto Diff 4 Months L40.50 - Arthropathic psoriasis, unspecified, M85.80 - Other specified disorders of bone density and structure, unspecified site Erythrocyte Sedimentation Rate 4 Months L40.50 - Arthropathic psoriasis, unspecified, M85.80 - Other specified disorders of bone density and structure, unspecified site Medications: Changed From gabapentin 300 mg PO BID M79.7 - Fibromyalgia To gabapentin 600 mg (2 x 300 mg) PO TID 90 days 540 caps 1RF M79.7 - Fibromyalgia Refilled allopurinol 300 mg PO QAM 90 tabs 1RF Otezla (apremilast) 30 mg PO BID 60 tabs 5RF NS L40.50 - Arthropathic psoriasis, unspecified Discontinued colchicine Discontinued Reason: Doctor's Order 0.6 mg PO Q OTHER DAY 45 tabs 1RF Coding Level of Care Code Est Pt Level 4 (66532) Complex EM visit Add On G2211 Diagnoses Psoriatic arthritis L40.50 Chronic idiopathic gout 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
[2025-01-17 09:43] VITALS: BP 124/62; PULSE 89; O2SAT 90; BMI 45.8
--- OUTSIDE RECORDS SUMMARY | 2025-01-17 10:52 | XMS_ITS | Encounter Summary ---
Author Organization [facility], Address [address] [place] [address] Phone Care Team Providers Care Assembly Lead Person Name Role Phone Violeta Boo MD Primary Care Provide r Encounter Details Date Type Department Care Team (Late st Contact Info) Description 03/15/2022 Documentation Only [facility] [address] [place] [address] Shailesh Vallejo MD [address] [place] [address] [place] [address] Social History Tobacco Use Types [...] Visit [facility] [address] [place] [address] Shailesh Vallejo MD [address] [place] [address] [place] [address] documented as of this encounter Visit Diagnoses Not on filedocumented in this encounter Care Teams Assembly Lead Person Relationship Specialty Start Date End Date Violeta Boo MD [address] [place] [address] [phone] PCP - General Internal Medicine 03/21/23 documented as of this encounter
--- OUTSIDE RECORDS SUMMARY | 2025-01-17 10:52 | XMS_ITS | Encounter Summary ---
Author Organization [employer] Address [address] [facility] 7t [place] [address] Care Team Providers Care Cable Ferryboat Operator Name Role Phone Violeta Boo MD Primary Care Provide r Reason for Visit * Reason Comments Med Refill Encounter Details Date Type Department Care Team (Late Contact Info) Description 02/13/2023 Refill [facility] MEDICINE [address] [place] [address] Cassy Starks MD [address] [place] [address] Social History Tobacco Use Types Packs/Day Years [...] Department Care Team (Late Contact Info) Description 01/23/2025 2:00 PM EDT Office Visit [facility] OPTOMETRY [address] [place] [address] Angella Negrete, OD [address] [place] [address] 02/05/2025 9:15 AM EDT Office Visit [facility] MEDICINE [address] [place] [address] Violeta Boo MD [address] [place] [address] documented as of this encounter Visit Diagnoses Not on filedocumented in this encounter Care Teams Cable Ferryboat Operator Relationship Specialty Start Date End Date Violeta Boo MD [address] [place] [phone] PCP - General Family Medicine 05/21/22 documented as of this encounter
--- OUTSIDE RECORDS SUMMARY | 2025-01-17 10:53 | XMS_ITS | Encounter Summary ---
Author Organization [facility], Address [address] [place] [address] Phone Care Team Providers Care Dermatology Nurse Practitioner Name Role Phone Violeta Boo MD Primary Care Provide r Encounter Details Date Type Department Care Team (Late st Contact Info) Description 05/05/2022 Documentation Only [facility] [address] [place] [address] Shailesh Vallejo MD [address] [place] [address] [place] [address] Social History Tobacco Use Types [...] Visit [facility] [address] [place] [address] Shailesh Vallejo MD [address] [place] [address] [place] [address] documented as of this encounter Visit Diagnoses Not on filedocumented in this encounter Care Teams Dermatology Nurse Practitioner Relationship Specialty Start Date End Date Violeta Boo MD [address] [place] [address] [phone] PCP - General Internal Medicine 03/21/23 documented as of this encounter
--- OUTSIDE RECORDS SUMMARY | 2025-01-17 10:53 | XMS_ITS | Encounter Summary ---
Author Organization [employer] Address [address] [facility] 7t [place] [address] Care Team Providers Care Bpo Specialist Name Role Phone Violeta Boo MD Primary Care Provide r Encounter Details Date Type Department Care Team (Late Contact Info) Description 04/26/2023 Orders Only [facility] [address] [place], [place] [phone] Brittany Epps LPN Social History Tobacco Use [...] Description 01/23/2025 2:00 PM EDT Office Visit [facility] OPTOMETRY [address] [place], [place] [phone] Caden, Angella, OD [address] [place], [place] [phone] 02/05/2025 9:15 AM EDT Office Visit [facility] MEDICINE [address] [place] [address] Violeta Boo MD [address] [facility] [place] [address] documented as of this encounter Procedures Procedure Name Priority Date/Time Associated Diagnosis Comments XR LUMBAR SPINE 2-3 VIEWS Routine 05/05/2023 12:38 PM EDT documented in this encounter Results * XR Lumbar Spine 2-3 Views (05/05/2023 12:38 PM EDT) Anatomical Region Laterality Modality Spine, L-spine Radiographic Rena ging 05/05/2023 12:3 8 PM EDT Narrative 05/17/2023 7:08 PM EDT ? [facility] ?[address] ?[place] [address] ?XRay Report ? Signed ? Patient: Violeta Alvarenga V ?MR#: [id number] ?? [id number] ? : 1950 ?Acct:[id number] ? Age/Sex: 72 / F ?ADM Date: 05/05/23 ? Loc: HO.XRAY ? Attending Dr: Violeta Pascual MD ? Ordering Physician: Violeta Boo MD ?? Date of Service: 05/05/23 ?? Procedure(s): XR lumbar spine 2-3V ?? Accession Number(s): [id number] ? cc: Violeta Boo MD ? EXAMINATION: [...] 1905 ? DD/ 1238 ? TD/TT: ? Angle Furnaceman: SANA ? Procedure Note Jaqueline, Image - 05/17/[address] [address] XRay Report Signed Patient: Violeta Alvarenga VMR#: [id number] : 1950cct:[id number] Age/Sex: 72 / FADM Date: 05/05/23 Loc: HO.XRAY Attending Dr: Violeta Pascual MD Ordering Physician: Violeta Boo MD Date of Service: 05/05/23 Procedure(s): XR lumbar spine 2-3V Accession Number(s): [id number] cc: Violeta Boo MD EXAMINATION: XR LUMBOSACRAL [...] in OV> 05/17/23 1905 DD/ 1238 TD/TT: Angle Furnaceman: SANA [facility] External Provider IMG XR PROCEDURES Edited Result - Final documented in this encounter Visit Diagnoses Not on filedocumented in this encounter Care Teams Bpo Specialist Relationship Specialty Start Date End Date Violeta Boo MD [address] [place] [phone] PCP - General Family Medicine 05/21/22 documented as of this encounter
--- OUTSIDE RECORDS SUMMARY | 2025-01-17 10:53 | XMS_ITS | Encounter Summary ---
Author Organization [employer] Address [address] [facility] 7t [place] [address] Care Team Providers Care Oil Well Logging Engineer Name Role Phone Violeta Boo MD Primary Care Provide r Encounter Details Date Type Department Care Team (Late st Contact Info) Description 07/20/2024 Telephone [facility] OPTOMETRY [address] [place] [address] Angella Negrete, OD [address] [place] [address] Social History Tobacco Use Types Packs/Day Years [...] 07/20/2024 3:24 PM EDT Called the Patient SHUTTLE THREADER Nikita Sneed, to inform her at the request of Dr. Negrete, OD. That the Patient Violeta Monterroso has to stop all eye drops until she has her follow up appointment with on @ 1:00pm. Eye Drops Brimonidime, 0.2% Ophthalmic Solution. Latanoprost 0.5% Ophthalmic Solution. documented in this encounter Plan of Treatment Upcoming Encounters Date Type Department Care Team (Late st Contact Info) Description 01/23/2025 2:00 PM EDT Office Visit [facility] OPTOMETRY [address] [place] [address] Angella Negrete, OD [address] [place] [address] 02/05/2025 9:15 AM EDT Office Visit [facility] MEDICINE [address] [place] [address] Violeta Boo MD [address] [place] [address] documented as of this encounter Visit Diagnoses Not on filedocumented in this encounter Care Teams Oil Well Logging Engineer Relationship Specialty Start Date End Date Violeta Boo MD [address] [place] [address] PCP - General Family Medicine 05/21/22 documented as of this encounter
--- OUTSIDE RECORDS SUMMARY | 2025-01-17 10:53 | XMS_ITS ---
Author Name Radha Ayala NP Address [address] [place] [address] Phone [phone] [facility] Care Team Providers Care Supervisor [place] Name Role Phone Radha Ayala Unavailable [phone] Unavailable Unavailable Unavailable Unavailable Unavailable Unavailable Cristo Garcia Unavailable [phone] Unavailable Unavailable [phone] Gideon Frost Unavailable [phone] Unavailable Unavailable Unavailable Unavailable Unavailable Unavailable Unavailable Unavailable [phone] WALTER ROBERT Unavailable [phone] Nirav Anthony Unavailable [phone] Unavailable Unavailable [phone] Unavailable Unavailable [phone] Reason for Referral Not Available Allergies, adverse [...] AREA(S) EVERY MORNING 2022-12-16 No Data Available [employer] [id number] 3 TO 4 DROPS INTO [...] a day 2024-05-11 No Data Availab le [employer] Flex System w/Device Kit USE DIRECTED [...] 2023-04-12 N/A 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;Peripheral vascular disease, unspecified Active 2023-04-12 N/A Chronic gouty arthritis;Generalized osteoarthritis Act rossy 2023-04-07 N/A Chronic diarrhea Active 2023-04-07 N/A Unspecified atherosclerosis of [place] arteries of extremities, bilateral legs Active 2023-04-13 N/A Chronic obstructive pulmonary disease, unspecified Act rossy 2023-04-13 N/A Hemorrhoids Active 2023-08-10 N/A Onychomycosis Active 2023-08-21 N/A Chronic bilateral low back p ain with bilateral sciatica;Bulging lumbar disc Active 2023-04-07 N/A Chronic back pain Active 2023-10-21 N/A At risk for cancerAt risk for colon cancer Active 2023-10-21 N/A Other problems related to md dical facilities and other health care Active 2024-01-19 N/A Other problems related to md dical facilities and other health care Active [...] (do not use for phone, instead use 51602-29) [facility] ([place] 04/[place]/2023 Noninfective gastroenteritis and colitis, unspecifiedRepeated fallsUnspecified [...] sitesSacroiliitis, not elsewhere classifiedAthscl heart disease of [place] cor art w unsp ang pctrsPeripheral vascular disease, unspecified New patient,40-59min; chronic exacerbation, 2 stable chronic or 1 acute illness add add modifier 95 for video (do not use for phone, instead use 42104-98) [facility] [place] New patient,40-59min; chronic exacerbation, 2 stable chronic or 1 acute illness add add modifier 95 for video (do not use for phone, instead use 69062-79) [facility] [place] New patient,40-59min; chronic exacerbation, 2 stable chronic or 1 acute illness add add modifier 95 for video (do not use for phone, instead use 32733-88) [facility] [place] New patient,40-59min; chronic exacerbation, 2 stable chronic or 1 acute illness add add modifier 95 for video (do not use for phone, instead use 08623-19) [facility] [place] New patient,40-59min; chronic exacerbation, 2 stable chronic or 1 acute illness add add modifier 95 for video (do not use for phone, instead use 26740-35) [facility] [place] New patient,40-59min; chronic exacerbation, 2 stable chronic or 1 acute illness add add modifier 95 for video (do not use for phone, instead use 52970-63) [facility] [place] New patient,40-59min; chronic exacerbation, 2 stable chronic or 1 acute illness add add modifier 95 for video (do not use for phone, instead use 70088-36) [facility] [place] New patient,40-59min; chronic exacerbation, 2 stable chronic or 1 acute illness add add modifier 95 for video (do not use for phone, instead use 70465-56) [facility] [place] Unlisted special service; to be used for medical record reviews and reporting CPTII codes (1111F, etc) [facility]2023 Other specified counseling Unlisted special service; to be used for medical record reviews and reporting CPTII codes (1111F, etc) [facility] Unlisted special service; to be used for medical record reviews and reporting CPTII codes (1111F, etc) [facility] [facility]2023 Body mass index (BMI) 45.0-4 9.9, adultPrediabetesMorbid (severe) obesity due to excess caloriesTinea unguiumLumbago with sciatica, left sideLumbago with sciatica, right sideOther chronic painOther intervertebral disc degeneration, lumbar region No Data Available [facility] [place] [facility] [facility] [place] 10/21/2023 Dorsalgia, unspecifiedOther chronic painMorbid (severe) obesity due to excess caloriesOther specified personal risk factors, not elsewhere classified No Data Available [facility] [place]2023 Estab. patient 30-39min; chronic exacerbation, 2 stable chronic or 1 acute illness add add modifier 95 for video, (do not use for phone, instead use 78629-60) [facility] [place]2024 Type 2 diabetes mellitus wit h diabetic chronic kidney diseaseChronic kidney disease, stage 3bRepeated fallsUnspecified hearing loss, left earTinnitus, left earUnspecified hemorrhoidsOther specified postprocedural statesLumbago with sciatica, left sideLumbago with sciatica, right sideOther chronic painOther intervertebral disc degeneration, lumbar regionIdiopathic chronic gout, unspecified site, without tophus (tophi)Polyosteoarthritis, unspecifiedSchizophrenia, unspecifiedAthscl heart disease of [place] cor art w unsp ang pctrsType 2 diabetes w diabetic peripheral angiopath w/o gangreneUnsp athscl [place] arteries of extremities, bilateral legsChronic obstructive pulmonary [...] (do not use for phone, instead use 33198-09) [facility] [place] Estab. patient 30-39min; chronic exacerbation, 2 stable chronic or 1 acute illness add add modifier 95 for video, (do not use for phone, instead use 02231-01) [facility] [place] Estab. patient 30-39min; chronic exacerbation, 2 stable chronic or 1 acute illness add add modifier 95 for video, (do not use for phone, instead use 66278-61) [facility] Estab. patient 30-39min; chronic exacerbation, 2 stable chronic or 1 acute illness add add modifier 95 for video, (do not use for phone, instead use 56899-88) [facility] Estab. patient 30-39min; chronic exacerbation, 2 stable chronic or 1 acute illness add add modifier 95 for video, (do not use for phone, instead use 85582-63) [facility] Estab. patient 30-39min; chronic exacerbation, 2 stable chronic or 1 acute illness add add modifier 95 for video, (do not use for phone, instead use 42870-23) [facility] [facility] Type 2 diabetes mellitus wit h diabetic chronic kidney diseaseChronic kidney disease, stage 3b No Data Available [facility] [place] [facility]20[place] Type 2 diabetes mellitus wit h diabetic chronic kidney diseaseChronic kidney disease, stage 3b No Data Available [facility] [place] Unlisted special service; to be used for medical record reviews and reporting CPTII codes (1111F, etc) [facility] [place] Other specified counseling Unlisted special service; to be used for medical record reviews and reporting CPTII codes (1111F, etc) [facility] [place] Unlisted special service; to be used for medical record reviews and reporting CPTII codes (1111F, etc) [facility] [place] Estab. patient 10-29min; 1 minor problem; add add modifier 95 for video, modifier [address] [facility]18[place]20[place] Type 2 diabetes mellitus wit h diabetic chronic kidney diseaseChronic kidney disease, stage 3bMorbid (severe) obesity due to excess caloriesBody mass index (bmi) 50-59.9 , adult Estab. patient 10-29min; 1 minor problem; add add modifier 95 for video, modifier [address] [facility] Estab. patient 10-29min; 1 minor problem; add add modifier 95 for video, modifier [address] [facility] 12/18/2024 Vital Signs Date of [...] (do not use for phone, instead use 27884-37) 46584 2023-04-07 No Data Available No Data Availa [...] reviews and reporting CPTII codes (1111F, etc) 69518 2023-07-01 No Data Available No Data Availa ble SBP < 130 (3074F) 3074F 2023-07-01 No Data Available No Data Available DBP <80 (3078F) 3078F 2023-07-01 No Data Available No Data Available No Data Available 56534 2023-08-10 No Data Available No Data Available Medication List Documented (1159F) 1159F 2023-08-10 No Data Available No Data Lena ilable BMI obtained (3008F) 3008F 2023-08-10 No Data Availab le No Data Available No Data Available 28375 2023-10-21 No Data Available No Data Available Medication List Documented (1159F) 1159F 2023-10-21 No Data Available No Data Lena ilable Estab. patient 30-39min; chronic exacerbation, 2 stable chronic or 1 acute illness add add modifier 95 for video, (do not use for phone, instead use 60071-85) 02798 2024-05-11 No Data Available No Data Availa [...] Available No Data Available No Data Available 15180 2024-05-14 No Data Available No Data Available Medication List Documented (1159F) 1159F 2024-05-14 No Data Available No Data Lena ilable No Data Available [id number] 2024-06-20 No Data Available No Data Available Medication List Documented (1159F) 1159F 2024-06-20 No Data Available No Data Lena ilable Unlisted special service; to be used for medical record reviews and reporting CPTII codes (1111F, etc) 65498 2024-09-04 No Data Available No Data Availa ble SBP >= 140 3077F 2024-09-04 No Data Available No Data Available DBP >=90 3080F 2024-09-04 No Data Available No Data Available Estab. patient 10-29min; 1 minor problem; add add modifier 95 for video, modifier 93 for phone 20805 2024-12-18 No Data Available No Data Availa [...] rheumatoid factor, multiple sitesAtherosclerotic heart disease of [place] coronary artery with unspecified angina pectoris;Peripheral vascular [...] discChronic gouty arthritis;Generalized osteoarthritisSchizophreniaAtherosclerotic heart disease of [place] coronary artery with unspecified angina pectoris;Peripheral vascular disease, unspecifiedUnspecified atherosclerosis of [place] arteries of extremities, bilateral legsChronic obstructive pulmonary [...] for weight clinic - also endocr for [facility] MASending to podiatry per pt request.Also needs [...] area that had available staff.Pt to call [facility] and get name of PT providers in her area that are covered.Will investigate weight loss clinics.Pt to look for back exercises on YouTube, activity as tolerated.Will FU.BMI 49.25send to weight clinic but not [place]erral for weight clinic - also endocr for [facility] [place]10/21/2023Have not been able to find clinic that is covered by [facility] in er area. Pt to call [facility] and find list of names [...] Documented (1125F)Continue to see PCP. [facility] [...] portal notes, I70.203 - Unspecified atherosclerosis of [place] arteries of extremities, bilateral legs continues to take albuterol sulfatePlease call CB ifIncreased SOB,or if patient falls.Pain that radiates to vaginaHas seen PCPhas referral to GI but is going to cancelEd not to cancel, get transportBMI 52.08send to weight clinic but not [place]23referral for weight clinic - [place] [facility]Have not been able to find clinic that is covered by [facility] in er area. Pt to call [facility] and find list of names [...] area that had available staff.Pt to call [facility] and get name of PT [...] modifier 95)Continue to see PCP. Follow-up with [facility] as needed for any acute or [...] our conversation of three days ago. Her HAZARDOUS MATERIALS HANDLER is supposed to go tonight or tomorrow [...] modifier 95)Continue to see PCP. Follow-up with [facility] as needed for any acute or [...] our conversation of three days ago. Her HAZARDOUS MATERIALS HANDLER is supposed to go tonight or tomorrow and bring them tomorrow.Pharmacy to instruct on use of both.Pt also has relatives who can look online for instruction.Call CB 06/06 to learn to use, if necessary.Please check sugars daily, fasting, in the morning. Keep a log.FU later this or Tuesday.06/20/2024Finished first 4 doses of Ozempic. Had some AEs (aversion to food for example) but has improved. Is ready for dose increaseRefilling at the full 0.5 mg dose. She will be traveling to [place] so she is to ask for emergency traveling supply, which won't be much as she will be back july.Refilled w instructions to pharmacy.Will FU after . 2024-12-18 08:09:04 Estab. patient 10-29 min; 1 minor problem; add add modifier 95 for video, modifier 93 for phoneContinue to see PCP. [facility] or disease [...] our conversation of three days ago. Her HAZARDOUS MATERIALS HANDLER is supposed to go tonight or tomorrow [...] mg dose. She will be traveling to [place] so she is to ask for emergency [...] for weight clinic - also [facility]ocr [facility]Have not been able to find clinic that is covered by [facility] in er area. Pt to call [facility] and find list of names [...]
--- OUTSIDE RECORDS SUMMARY | 2025-01-17 10:53 | XMS_ITS | Clinical Summary ---
Author Organization [address] [facility] Address [address] [place] [address] Phone Care Team Providers Care Screw Machine Repairer Name Role Phone Violeta Boo MD [...] 0.1 % cream Apply topically. 3 Active ciclopirox (PENLAC) 8 % solution Apply topically at bedtime. Apply over nail and surrounding skin. Apply daily over previous coat. After seven (7) days, may remove with alcohol and continue cycle. 6.6 mL 3 5 04/16/20 25 Active Active Problems Problem Noted Date Diagnosed Date Anxiety 10/08/2024 Asthma 10/08/2024 Chronic kidney disease, stage III (moderate) Essential hypertension, benign 10/08/2024 Hyperlipidemia 10/08/2024 Osteopenia 10/08/2024 Primary osteoarthritis of both knees 10/08/2024 Psychotic disorder 10/08/2024 Tubular adenoma of colon 10/08/2024 Dyslipidemia 08/26/2023 Lumbar spinal stenosis 08/26/2023 Other spondylosis with radiculopathy, lumbar reg ion 08/26/2023 Overview (10/08/2024): Last Assessment & Plan: Ms. aKrl Monterroso describes low back pain with radiation [...] exercise, life style modifications, diet, referral to customs import specialist. Discussed re lower calorie intake, increase dietary fiber Pt agreed to be referred to dietitian. Non-cardiac chest pain 08/08/2018 Seasonal allergies 08/08/2018 Unintended awareness under g eneral anesthesia during procedure 08/08/2018 Encounters Date Type Department Care Team Description 01/16/2025 1:00 PM EST Office Visit Orthopedic Surgery - [place] [address] [place] [phone] Maury Godoy, DPM Dermatophytosis of nail (Primary Dx); Tinea pedis of both feet; Pain in toe of right foot; Pain in toe of left foot; Corns and callosities; Diabetic mononeuropathy simplex (CMS/HCC); Type II diabetes mellitus with peripheral circulatory disorder (CMS/HCC); Acquired hallux valgus of left foot; Acquired hallux valgus of right foot; Metatarsalgia of both feet from Last 3 Months Immunizations Name Administration [...] - Inhaled Oxygen Concentration - - Weight 116 kg (256 lb) 01/16/2025 12:59 PM EST Height 165.1 cm (5' 5 ) 01/16/2025 12:59 PM EST Body Mass Index 42.6 01/16/2025 12:59 PM EST Plan of Treatment Upcoming Encounters Date Type Department Care Team (Late st Contact Info) Description 04/18/2025 9:30 AM EDT Office Visit Orthopedic Surgery - [address] [phone] Maury Godoy, DPTeri [address] [facility] [address] [place] [address] Health Maintenance Due Date Last Done Comments [...] Blood Sugar Control Test (HGBA1C) 12/17/2023 08/09/2022 Diabetes: Annual GFR (Glomerular Filtration Rate) 03/01/2025 03/01/2024 Hypertension/CHF/CAD Annual BMP Blood Test 03/01/2025 03/01/2024 Cholesterol Screening (Lipid Panel) 03/15/2027 03/15/2022 Zoster Vaccines Completed 11/29/2019, 10/0 07/2019, 01/14/2015 COVID-19 Vaccine Completed 08/13/2024, , 08/26/2022, Additional [...] Test (03/01/2024) Annual BMP Blood Test Abstracted [facility] Provider HEALTH MAINTENANCE Final Result * Hemoglobin A1c (08/09/2022) Hemoglobin A1C 0.0 % Comment:No Interpretation, A bstracted Blood Venous blood specimen / Unknown [facility] Provider LAB BLOOD ORDERABLES Almaz l Result * Lipid panel (03/15/2022) LDL/HDL Ratio 0 Comment:No Interpretation, A bstracted Triglycerides 0 mg/dL Comment:No Interpretation, A bstracted Cholesterol 0 mg/dL Comment:No Interpretation, A bstracted HDL 0 mg/dL Comment:No Interpretation, A bstracted LDL Cholesterol 0 mg/dL Comment:No Interpretation, A bstracted Blood Venous blood specimen / Unknown [facility] Provider LAB BLOOD ORDERABLES Almaz l Result from Last 3 Months or Most Recently Relevant to Health Maintenance Insurance [employer] MEDICARE MEDICAID - [place] Care Teams Screw Machine Repairer Relationship Specialty Start Date End Date Violeta Boo MD [address] [phone] PCP - General 03/29/23
--- OUTSIDE RECORDS SUMMARY | 2025-01-17 10:53 | XMS_ITS | Encounter Summary ---
Author Organization [employer] Address [address] [facility] 7 [place] [address] Care Team Providers Care Junior Engineer Name Role Phone Violeta Boo MD Primary Care Provide r Reason for Visit * Reason Onset Date Comments Durable Medical Equipment 11/20/2024 Encounter Details Date Type Department Care Team ([facility] st Contact Info) Description 11/20/2024 Telephone [facility] MEDICINE [address] [place] [address] Violeta Boo MD [address] [place], [place] [phone] Durable Medical Equipment Social History Tobacco Use [...] any questions you can contact pt at [phone]. (Azeri Speaker) documented in this encounter Plan of Treatment Upcoming Encounters Date Type Department Care Team (Late st Contact Info) Description 01/23/2025 2:00 PM EDT Office Visit [facility] OPTOMETRY [address] [place] [address] Caden, Angella, OD [address] [place] [address] 02/05/2025 9:15 AM EDT Office Visit [facility] MEDICINE [address] [place] [address] Violeta Boo MD [address] [place] [address] documented as of this encounter Visit Diagnoses Not on filedocumented in this encounter Additional Health Concerns Assessment Noted Time PHQ-9 Depression Total Score: 17 024 11:23 AM EDT documented as of this encounter Care Teams Junior Engineer Relationship Specialty Start Date End Date Violeta Boo MD [address] [place] [address] PCP - General Family Medicine 05/21/22 documented as of this encounter
--- OUTSIDE RECORDS SUMMARY | 2025-01-17 10:53 | XMS_ITS | Clinical Summary ---
Author Organization [employer] Address [address] [place] [address] 7t [place] [address] Care Team Providers Care Food General Manager Name Role Phone Violeta Boo MD [...] other day. 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 Otitis externa 12/16/2022 Assessment & Plan (12/16/2022 [...] exercise, life style modifications, diet, referral to patient transition specialist. Discussed re lower calorie intake, increase [...] DEPARTMENT Provider, Generic External Data 01/11/2025 Telephone [facility] [address] [place] [address] Violeta Boo MD FYI ; Housing Form (I called the patient regarding a reasonable accommodation request, from [employer]. The form lists the patient's medical conditions, but it does not state what the accommodation is. I reached her voicemail, and left a message asking her to return my call at ext [phone].) 01/04/2025 Refill [facility] [address] [place] [address] Violeta Boo MD 01/01/2025 Telephone [facility] [address] [place] [address] Violeta Boo MD [facility] request 12/27/2024 Telephone [facility] [address] [place] [address] Violeta Boo MD Appointment Request 12/26/2024 Telephone [facility] [address] [place] [address] Violeta Boo MD Reasonable Accommodation (I called the patient regarding a reasonable accommodation request, from [facility] Code42. The form lists the patient's medical conditions, but it does not state what the accommodation is. There was no answer, and I reached a recording stating that the person's voicemail is not not set up. I then called her hourly caregiver, Nikita, and she stated that she is not sure of what the patient is requesting. She agreed to ask the patient to return my call at ext [phone].) 12/24/2024 Telephone [facility] [address] [place] [address] Violeta Boo MD call back required 12/20/[address] [phone] Violeta Boo MD [facility] needed. 12/20/2024 Telephone [facility] [address], [place] [phone] Violeta Boo MD 12/18/2024 Telephone [facility] [address], [place] [phone] Emerald King [place] Appointment Request 12/18/2024 Telephone [facility] [address] [place] [address] Violeta Boo MD Durable Medical Equipment 12/14/2024 Refill [facility] [address] [place], [place] [phone] Violeta Boo MD Pain 12/14/2024 Telephone [facility] [address] [place] [phone] Violeta Boo MD New Med Request 12/07/2024 Telephone [facility] [address] [place] [phone] Violeta Boo MD Referral 11/30/2024 Telephone [facility] [address] [place] [phone] Emerald King [place] dme wheel chair 11/23/2024 Telephone [facility] [address] [place] [phone] Violeta Boo MD Referral 11/20/2024 Telephone [facility] [address] [place] [phone] Violeta Boo MD Durable Medical Equipment 11/02/2024 Refill [facility] [address] [place] [phone] Violeta Boo MD Pain 10/25/2024 Telephone [facility] [address] [place] [address] Violeta Boo MD Med Refill 10/21/2024 Refill [facility] [address] [place] [phone] Violeta Boo MD Pain from Last 3 [...] Description 01/23/2025 2:00 PM EDT Office Visit [facility] [address] [place] [address] Caden, Angella, OD [address] [place] [address] 02/05/2025 9:15 AM EDT Office Visit [facility] [address] [place] [address] Violeta Boo MD [address] [place] [address] Health Maintenance Due Date Last Done Comments [...] Procedure Name Priority Date/Time Associated Diagnosis Comments C-REACTIVE PROTEIN Routine 01/14/2025 10 :48 AM EST COMPREHENSIVE METABOLIC PANEL Routine 01/14/2025 10:48 AM EST URIC ACID Routine 01/14/2025 10:48 AM EST SED RATE BY MODIFIED WESTERGREN Routine 01/14/2025 10:48 AM EST CBC WITH [...] Blood Count 10.1 4.8 - 10.8 X10*3/uL [facility] Red Blood Count 4.46 4.20 - 5.50 X10*6/uL [facility] Hemoglobin 13.6 12.0 - 16.0 g/dl [facility] Hematocrit 42.0 37.0 - 47.0 % [facility] Mean Corpuscular Volume 94.2 80.0 - 98.0 fL [facility] Mean Corpuscular Hemoglobin 30.5 27.0 - 33.0 pg [facility] Mean Corpuscular HGB Conc 32.4 31.0 - 35.0 g/dl [facility] Red Cell Distribution Width 14.6 11.0 - 16.0 % [facility] Platelet Count 330 160 - 400 X10*3/uL [facility] Mean Platelet Volume 10.8 9.4 - 12.3 fL [facility] Neutrophils Percent Auto 64.5 45 - 73 % [facility] Imm Gran Pct Auto 0.3 0.0 - 0.4 % [facility] Lymphocytes Percent Auto 24.8 20 - 40 % [facility] Monocytes Percent Auto 7.9 2 - 11 % [facility] Eosinophils Percent Auto 1.9 0 - 4 % [facility] Basophils Percent Auto 0.6 0 - 2 % [facility] NRBC Pct Auto 0.0 0.0 - 0.2 /100WBC [facility] Neutrophils Absolute Auto 6.5 2.0 - 8.3 x10*3/uL [facility] Imm Gran Abs Auto 0.03 0.00 - 0.03 X10*3/uL [facility] Lymphocytes Absolute Auto 2.5 1.2 - 4.9 X10*3/uL [facility] Monocytes Absolute Auto 0.8 0.1 - 1.2 X10*3/uL [facility] Eosinophils Absolute Auto 0.2 0.0 - 0.4 X10*3/uL [facility] Basophils Absolute Auto 0.1 0.0 - 0.2 X10*3/uL [facility] NRBC Abs Auto 0.000 0.0 - 0.012 X10*3/uL [facility] 01/14/2025 10:4 8 AM EST 01/14/2025 10:48 AM EST us Generic External Data Provider LAB BLOOD ORDERAB LES Final Result [facility] [address] [place] [address] [phone] * (ABNORMAL) Sed Rate by Modified Anu (01/14/2025 10:48 AM EST) Erythrocyte Sedimentation Rate 36(H) 0 - 20 MM/HR [facility] Comment:Patients with polycy themia and many hemoglobin abnormalitiesmay have depressed sed rates whereas patients with anemiamay have elevated sed rates. 01/14/2025 10:4 8 AM EST 01/14/2025 10:48 AM EST Generic External Data Provider LAB BLOOD ORDERAB LES Final Result Performing Organization Address [facility] Co de Phone Number [facility] [address] [place] [phone] * C-reactive Protein (01/14/2025 10:48 AM EST) Pathologist [facility] C Reactive Protein 0.37 < or = 0.50 mg/dL [facility] 01/14/2025 10:4 8 AM EST 01/14/2025 10:48 AM EST Generic External Data Provider LAB BLOOD ORDERAB LES Final Result Performing Organization Address [facility] Phone Number [facility] [address] [place] [phone] * Uric acid (01/14/2025 10:48 AM EST) Pathologist [facility] Uric Acid 5.0 2.4 - 5.7 mg/dL [facility] 01/14/2025 10:4 8 AM EST 01/14/2025 10:48 AM EST Generic External Data Provider LAB BLOOD ORDERAB LES Final Result Performing Organization Address [facility] Phone Number [facility] [address] [place] [phone] * (ABNORMAL) Comprehensive Metabolic Panel (01/14/2025 10:48 AM EST) Pathologist [facility] Sodium 142 135 - 145 mmol/L [facility] Potassium 4.4 3.3 - 5.1 mmol/L [facility] Chloride 103 96 - 108 mmol/L [facility] Carbon Dioxide 29 22 - 29 mmol/L [facility] Anion Gap 14 12 - 20 [facility] Urea Nitrogen (BUN) 25(H) 9 - 16 mg/dL [facility] Creatinine, Serum 1.47(H) 0.5 - 1.4 mg/dL [facility] Estimated Glomerular Filt Rate 35 [facility] Comment:Chronic Kidney Disea se: Estimated GFR < 60 mL/min/1.12g4Bbcgkw Kidney Disease: Estimated GFR < 15 mL/min/1.73m2 Glucose 100 60 - 115 mg/dL [facility] Calcium 9.7 8.4 - 10.2 mg/dL [facility] Bilirubin, Total 0.4 0.0 - 1.0 mg/dL [facility] Aspartate Amino Transferase 23 5 - 31 U/L [facility] Alanine Aminotransferase 19 0 - 31 U/L [facility] Total Protein 7.2 6.5 - 8.0 g/dL [facility] Albumin Level 3.8 3.5 - 5.0 g/dL [facility] Alkaline Phosphatase 138(H) 39 - 117 U/L [facility] 01/14/2025 10:4 8 AM EST 01/14/2025 10:48 AM EST us Generic External Data Provider LAB BLOOD ORDERAB LES Final Result Performing Organization Address City/State/[facility] Co de Phone Number [facility] [address] [place] [address] [phone] * BI Mammogram Screening Tomosynthesis Bilateral (08/30/2024 9:10 AM EDT) Anatomical Region Laterality Modality Breast Bilateral Mammography 08/30/2024 9:10 AM EDT Narrative 09/11/2024 12:30 PM EDT ? [facility] ? [address] ?[place] [address] ? Mammography Report ? Signed with Addenda ? Patient: Karl Monterroso,Nasreen ?MR#: [id number] ?? [id number] ? : 1950 ?Acct:[id number] ? Age/Sex: 74 / F ?ADM Date: 08/30/24 ? Loc: HO.MAMMO ? Attending Dr: Violeta Pascual MD ? Ordering Physician: Violeta Boo MD ?Results: ?? 2Benign Findings ? Date of Service: 08/30/24 ?Follow Up: 1 Year From Orig ?? inal Mammogram ? Procedure(s): MM tomosynthesis screening BI ?? Accession Number(s): [id number] ? cc: Violeta Boo MD ?ADDENDUM ? [...] DD/ 0910 ? TD/TT: 08/30/24 0925 ? Instrument Repairer Helper: ? Procedure Note Donestuardoter, Image - 09/14/2024 [facility] [address] [place] [address] Mammography Report Signed with Cynthia Patient: Karl AdamsonVioleta skaggs VMR#: [id number] : 2Acct:[id number] Age/Sex: 74 / FADM Date: 08/30/24 Loc: HO.MAMMO Attending Dr: Violeta Pascual MD Ordering Physician: Violeta Boo MDResults: 2Benign Findings Date of Service: 08/30/24Follow Up: 1 Year From Orig inal Mammogram Procedure(s): MM tomosynthesis screening BI Accession Number(s): [id number] cc: Violeta Boo MD ADDENDUM ADDENDUM #1 ADDENDUM: Due to a software issue related to the original report, this case has been reviewed again and the original findings and recommendations remain the same. OVERALL ASSESSMENT: BI-RADS 2 - Benign Findings RECOMMENDATION: 1 year F/U Electronically signed by: Radhika Douglas DO 09/14/2024 10:26 AM EDT RP Addendum Dictated By: Radhika Douglas DO Addendum [...] OV> 09/11/24 1227 DD/ 9 TD/TT: 08/30/24924 Instrument Repairer Helper: us Violeta Pascual MD IMG BI PROCEDURES Shemar daylin Result - Final * POCT HGB A1C (08/13/2024 10:31 AM EDT) Hemoglobin A1C 6.0 4.0 - 6.0 % QC Media Lot # [id number] Lot# Expiration Date 752 Blood 08/13/2024 10:3 1 AM EDT Violeta [...] Madi WADE et al. JUAN LUIS. 2013;310(19): 4077-1681 ?? (http://education.[employer].AcademixDirect/faq/YEK657) Non-HDL Cholesterol 124 <130 mg/dL (calc) FOUNDATION [...] Final Result Performing Organization Address [facility]/ZIP Co de Phone Number [facility] [address] * HEPATITIS C ANTIBODY RFLX (01/02/2020 10:23 AM EST) HEPATITIS C ANTIBODY NONREACTIVE NONREACTIVE [facility] Comment: Antibodies to HCV not detected; does not exclude early acute HCV infection. 01/02/2020 10:2 3 AM EST Historical Provider HISTORICAL/NON ORDERABLE LABS Final Result Performing Organization Address [facility] de Phone Number [facility] [address] from Last 3 Months or Most Recently Relevant to Health Maintenance Insurance [facility] D[facility] [employer] Care Teams Food General Manager Relationship Specialty Start Date End Date Violeta Boo MD [address] [place] [address] PCP - General Family Medicine 05/21/22
--- OUTSIDE RECORDS SUMMARY | 2025-01-17 10:53 | XMS_ITS | Clinical Summary ---
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 [phone] Health Maintenance Due Date Last Done Comments [...] AM EST) Hemoglobin A1C 7.1(H) (4.0-5.6) % [facility] Comment: MONITORING: In known diabetic patients, hemoglobin A1c targets should be discussed with health care provider. DIAGNOSTIC USE: ??The [place] Diabetes Association (ADA) and the World Health [...] Supplement 1 Testing performed or reported by [facility], a Service of [facility], [address] [place] [address] Yana Bales MD, Motorcycle Subassembly Repairer [facility]# [id number] Blood (Blood, Venous) 10/20/2022 9:21 AM EST 10/20/2022 9:22 AM EST us Shailesh Vallejo MD LAB BLOOD ORDERABLES Final Resul t [facility] from Last 3 Months or Most Recently Relevant to Health Maintenance Insurance [facility] DUAL COMPLETE ([id number]) Care Teams Nurse Midwife/Clinical Instructor Relationship Specialty Start Date End Date Violeta Boo MD [address] [place] [address] ROSEANNE RICHARDSON [phone] PCP - General Internal Medicine 03/21/23
--- OUTSIDE RECORDS SUMMARY | 2025-01-17 10:53 | XMS_ITS | Encounter Summary ---
Author Organization [facility] Address [address] [place] [address] Phone Care Team Providers Care Distillery Manager Name Role Phone Violeta Boo MD Primary Care Provide r Encounter Details Date Type Department Care Team (Late st Contact Info) Description 10/22/2022 Documentation Only [facility] [address] [place] [phone] Jazmin Powell PA Social History Tobacco Use [...] [facility] [address] [place] [address] Shailesh Vallejo MD [address] [place] [address] [place] [phone] documented as of this encounter Visit Diagnoses Not on filedocumented in this encounter Care Teams Distillery Manager Relationship Specialty Start Date End Date Violeta Boo MD [address] [place] [phone] PCP - General Internal Medicine 03/21/23 documented as of this encounter
--- OUTSIDE RECORDS SUMMARY | 2025-01-17 10:53 | XMS_ITS | Encounter Summary ---
Author Organization [facility] [employer], Address [address] [place] [address] Phone Care Team Providers Care Rail Engineer Name Role Phone Violeta Boo MD Primary Care Provide r Encounter Details Date Type Department Care Team (Late st Contact Info) Description 02/13/2024 Documentation Only [facility] [address] [place] [phone] Rowena Knowles [address] [place] [phone] Social History Tobacco Use Types [...] [facility] [address] [place] [address] Shailesh Vallejo MD [address] [place] [address] [place] [phone] documented as of this encounter Visit Diagnoses Not on filedocumented in this encounter Care Teams Rail Engineer Relationship Specialty Start Date End Date Violeta Boo MD [address] [place] [phone] PCP - General Internal Medicine 03/21/23 documented as of this encounter
--- OUTSIDE RECORDS SUMMARY | 2025-01-17 10:53 | XMS_ITS | Encounter Summary ---
Author Organization [employer] Address [address] [facility] 7 [place] [address] Care Team Providers Care Rental Representative Name Role Phone Violeta Boo MD Primary Care Provide r Reason for Visit * Reason Onset Date Comments Referral 12/07/2024 Encounter Details Date Type Department Care Team ([facility] st Contact Info) Description 12/07/2024 Telephone [facility] [address] [place] [address] Violeta Boo MD [address] [place] [address] Referral Social History Tobacco Use Types Packs/Day [...] - 12/07/2024 11:04 AM EST Tc from [facility] with [facility] as she states wrong referral was sent over she's requestingPhysical Therapy referral to be faxed over [facility] [phone]. documented in this encounter Plan of Treatment Upcoming Encounters Date Type Department Care Team (Late st Contact Info) Description 01/23/2025 2:00 PM EDT Office Visit [facility] OPT[facility]ETRY [address] [place] [address] Caden, Angella, OD [address] [place] [address] 02/05/2025 9:15 AM EDT Office Visit [facility] [address] [place] [address] Violeta Boo MD [address] [place] [address] documented as of this encounter Visit Diagnoses Not on filedocumented in this encounter Additional Health Concerns Assessment Noted Time PHQ-9 Depression Total Score: 17 024 11:23 AM EDT documented as of this encounter Care Teams Rental Representative Relationship Specialty Start Date End Date Violeta Boo MD [address] [place] [phone] PCP - General Family Medicine 05/21/22 documented as of this encounter
--- OUTSIDE RECORDS SUMMARY | 2025-01-17 10:53 | XMS_ITS | Encounter Summary ---
Author Organization [employer] Address [address] [facility] 7t [place] [address] Care Team Providers Care Behavioral Geneticist Name Role Phone Violeta Boo MD Primary Care Provide r Reason for Visit * Reason Onset Date Comments Referral 12/08/2022 Encounter Details Date Type Department Care Team ([facility] st Contact Info) Description 12/08/2022 Telephone [facility] MED[facility]INE [address] [place] [address] Violeta oBo MD [address] [place] [address] Referral Social History Tobacco Use Types Packs/Day [...] 12/08/2022 2:55 PM EST Rufino Pagan with [facility] requesting a new referral for colorectal Surgery at [address] [place] [address] [place] [address]. Ej stated that a provider from their got in contact With Dr. Berkowitz, and Dr. Berkowitz advised provider that it okay for pt to receive a referral. They are now requesting a new referral from PCP, in order for pt to be ssen. If any question please contact bill at [phone] documented in this encounter Plan of Treatment Upcoming Encounters Date Type Department Care Team (Late st Contact Info) Description 01/23/2025 2:00 PM EDT Office Visit [facility] OPTOMETRY [address] [place] [address] Angella Negrete, OD [address] [place] [address] 02/05/2025 9:15 AM EDT Office Visit [facility] MEDICINE [address] [place] [address] Violeta Boo MD [address] [place] [address] documented as of this encounter Visit Diagnoses Not on filedocumented in this encounter Care Teams Behavioral Geneticist Relationship Specialty Start Date End Date Violeta Boo MD [address] [place] [address] PCP - General Family Medicine 05/21/22 documented as of this encounter
--- OUTSIDE RECORDS SUMMARY | 2025-01-17 10:53 | XMS_ITS | Encounter Summary ---
Author Organization [employer] Address [address] [place] [address] 7t [place] [address] Care Team Providers Care Medical Lab Assistant Name Role Phone Violeta Boo MD Primary Care Provide r Encounter Details Date Type Department Care Team ([facility] Contact Info) Description 03/22/2023 Orders Only [facility] [address] [place], [place] [phone] Brittany Epps LPN Social History Tobacco Use [...] Office Visit [facility] OPTOMETRY [address] [place] [address] Caden, Angella, OD [address] [place], [place] [phone] 02/05/2025 9:15 AM EDT Office Visit [facility] MEDICINE [address] [place], [place] [phone] Violeta Boo MD [address] [place] [address] documented as of this encounter Visit Diagnoses Not on filedocumented in this encounter Care Teams Medical Lab Assistant Relationship Specialty Start Date End Date Violeta Boo MD [address] [place] [address] PCP - General Family Medicine 05/21/22 documented as of this encounter
--- OUTSIDE RECORDS SUMMARY | 2025-01-17 10:53 | XMS_ITS | Encounter Summary ---
Author Organization [employer] Address [address] [facility] 7t [place] [address] Care Team Providers Care Upholsterer Outside Name Role Phone Violeta Boo MD Primary [...] t he electric, gas, oil or water [employer] threatened to shut off services in your [...] Description 01/23/2025 2:00 PM EDT Office Visit [facility] OPTOMETRY [address] [place] [address] Angella Negrete, OD [address] [place] [address] 02/05/2025 9:15 AM EDT Office Visit [facility] MEDICINE [address] [place] [address] Violeta Boo MD [address] [place] [address] documented as of this encounter Procedures Procedure Name Priority Date/Time Associated Diagnosis Comments CBC WITH AUTO DIFFERENTIAL Routine 01/14/2025 10:48 AM EST SED RATE BY MODIFIED WESTERGREN Routine 01/14/2025 10:48 AM EST C-REACTIVE PROTEIN Routine 01/14/2025 10 :48 AM EST URIC ACID Routine 01/14/2025 10:48 AM EST COMPREHENSIVE METABOLIC PANEL Routine 01/14/2025 10:48 AM EST documented in this encounter Results * C-reactive Protein (01/14/2025 10:48 AM EST) C Reactive Protein 0.37 < or = 0.50 mg/dL [facility] 01/14/2025 10:4 8 AM EST 01/14/2025 10:48 AM EST us Generic External Data Provider LAB BLOOD ORDERAB LES Final Result [facility] [address] [place] [address] [phone] * (ABNORMAL) Comprehensive Metabolic Panel (01/14/2025 10:48 AM EST) Sodium 142 135 - 145 mmol/L [facility] Potassium 4.4 3.3 - 5.1 mmol/L [facility] Chloride 103 96 - 108 mmol/L [facility] Carbon Dioxide 29 22 - 29 mmol/L [facility] Anion Gap 14 12 - 20 [facility] Urea Nitrogen (BUN) 25(H) 9 - 16 mg/dL [facility] Creatinine, Serum 1.47(H) 0.5 - 1.4 mg/dL [facility] Estimated Glomerular Filt Rate 35 [facility] Comment:Chronic Kidney Disea se: Estimated GFR < 60 mL/min/[id number] Kidney Disease: Estimated GFR < 15 mL/min/1.73m2 Glucose 100 60 - 115 mg/dL [facility] Calcium 9.7 8.4 - 10.2 mg/dL [facility] Bilirubin, Total 0.4 0.0 - 1.0 mg/dL [facility] Aspartate Amino Transferase 23 5 - 31 U/L [facility] Alanine Aminotransferase 19 0 - 31 U/L [facility] Total Protein 7.2 6.5 - 8.0 g/dL [facility] Albumin Level 3.8 3.5 - 5.0 g/dL [facility] Alkaline Phosphatase 138(H) 39 - 117 U/L [facility] 01/14/2025 10:4 8 AM EST 01/14/2025 10:48 AM EST us Generic External Data Provider LAB BLOOD ORDERAB LES Final Result Performing Organization Address [facility]/ZIP Co de Phone Number [facility] [address] [place] [address] [phone] * Uric acid (01/14/2025 10:48 AM EST) Pathologist [facility] Uric Acid 5.0 2.4 - 5.7 mg/dL [facility] 01/14/2025 10:4 8 AM EST 01/14/2025 10:48 AM EST Generic External Data Provider LAB BLOOD ORDERAB LES Final Result Performing Organization Address [facility] Co de Phone Number [facility] [address] [place] [address] [phone] * (ABNORMAL) Sed Rate by Modified Latosharen (01/14/2025 10:48 AM EST) [facility] Erythrocyte Sedimentation Rate 36(H) 0 - 20 MM/HR [facility] Comment:Patients with polycy themia and many hemoglobin abnormalitiesmay have depressed sed rates whereas patients with anemiamay have elevated sed rates. 01/14/2025 10:4 8 AM EST 01/14/2025 10:48 AM EST us Generic External Data Provider LAB BLOOD ORDERAB LES Final Result Performing Organization Address [facility] Co de Phone Number [facility] [address] [place] [address] [phone] * CBC auto differential (01/14/2025 10:48 AM EST) Pathologist [facility] White Blood Count 10.1 4.8 - 10.8 X10*3/uL [facility] Red Blood Count 4.46 4.20 - 5.50 X10*6/uL [facility] Hemoglobin 13.6 12.0 - 16.0 g/dl [facility] Hematocrit 42.0 37.0 - 47.0 % [facility] Mean Corpuscular Volume 94.2 80.0 - 98.0 fL [facility] Mean Corpuscular Hemoglobin 30.5 27.0 - 33.0 pg [facility] Mean Corpuscular HGB Conc 32.4 31.0 - 35.0 g/dl [facility] Red Cell Distribution Width 14.6 11.0 - 16.0 % [facility] Platelet Count 330 160 - 400 X10*3/uL [facility] Mean Platelet Volume 10.8 9.4 - 12.3 fL [facility] Neutrophils Percent Auto 64.5 45 - 73 % [facility] Imm Gran Pct Auto 0.3 0.0 - 0.4 % [facility] Lymphocytes Percent Auto 24.8 20 - 40 % [facility] Monocytes Percent Auto 7.9 2 - 11 % [facility] Eosinophils Percent Auto 1.9 0 - 4 % [facility] Basophils Percent Auto 0.6 0 - 2 % [facility] NRBC Pct Auto 0.0 0.0 - 0.2 /100WBC [facility] Neutrophils Absolute Auto 6.5 2.0 - 8.3 x10*3/uL [facility] Imm Gran Abs Auto 0.03 0.00 - 0.03 X10*3/uL [facility] Lymphocytes Absolute Auto 2.5 1.2 - 4.9 X10*3/uL [facility] Monocytes Absolute Auto 0.8 0.1 - 1.2 X10*3/uL [facility] Eosinophils Absolute Auto 0.2 0.0 - 0.4 X10*3/uL [facility] Basophils Absolute Auto 0.1 0.0 - 0.2 X10*3/uL [facility] NRBC Abs Auto 0.000 0.0 - 0.012 X10*3/uL [facility] 01/14/2025 10:4 8 AM EST 01/14/2025 10:48 AM EST us Generic External Data Provider LAB BLOOD ORDERAB LES Final Result [facility] [address] [place] [phone] documented in this encounter Visit Diagnoses Not on filedocumented in this encounter Additional Health Concerns Assessment Noted Time PHQ-9 Depression Total Score: 17 024 11:23 AM EDT documented as of this encounter Care Teams Upholsterer Outside Relationship Specialty Start Date End Date Violeta Boo MD [address] [place] [address] PCP - General Family Medicine 05/21/22 documented as of this encounter
--- OUTSIDE RECORDS SUMMARY | 2025-01-17 10:53 | XMS_ITS | Encounter Summary ---
Author Organization [employer] Address [address] [facility] 7t [place] [address] Care Team Providers Care Sleeve Maker Name Role Phone Violeta Boo MD Primary Care Provide r Reason for Visit * Reason Comments Med Refill Encounter Details Date Type Department Care Team ([facility] st Contact Info) Description 11/02/2024 Refill [facility] [address] [place] [address] Violeta Boo MD [address] [place] [address] Pain Social History Tobacco Use Types Packs/Day [...] Description 01/23/2025 2:00 PM EDT Office Visit [facility] [address] [place] [address] Angella Negrete, OD [address] [place] [address] 02/05/2025 9:15 AM EDT Office Visit [facility] [address] [place] [address] Violeta Boo MD [address] [place] [address] documented as of this encounter Visit Diagnoses Diagnosis Pain Generalized pain documented in this encounter Additional Health Concerns Assessment Noted Time PHQ-9 Depression Total Score: 17 024 11:23 AM EDT documented as of this encounter Care Teams Sleeve Maker Relationship Specialty Start Date End Date Violeta Boo MD [address] [place] [address] PCP - General Family Medicine 05/21/22 documented as of this encounter
--- OUTSIDE RECORDS SUMMARY | 2025-01-17 10:53 | XMS_ITS | Encounter Summary ---
Author Organization [employer] Address [address] [facility] 7t [place] [address] Care Team Providers Care Veneer Redrier Name Role Phone Violeta Boo MD Primary Care Provide r Reason for Visit * Reason Comments Med Refill Encounter Details Date Type Department Care Team ([facility] st Contact Info) Description 11/18/2022 Refill [facility] MED & PEDS [address] [place] [address] Betsy Simmons CNM [address] [place] [address] Social History Tobacco Use Types Packs/Day Years [...] No answer, left V/M. Will retask to [facility] nurses for second attempt * Telephone Encounter [...] 2:00 PM EDT Office Visit [facility] OPTOMETRY [address] [place], [place] [phone] Angella Negrete, OD [address] [place] [address] 02/05/2025 9:15 AM EDT Office Visit [facility] MEDICINE [address] [place], [place] [phone] Violeta Boo MD [address] [place], [place] [phone] documented as of this encounter Visit Diagnoses Not on filedocumented in this encounter Care Teams Veneer Redrier Relationship Specialty Start Date End Date Violeta Boo MD [address] [place], [place] [phone] PCP - General Family Medicine 05/21/22 documented as of this encounter
--- OUTSIDE RECORDS SUMMARY | 2025-01-17 10:53 | XMS_ITS | Encounter Summary ---
Author Organization [employer] Address [address] [facility] 7 [place] [address] Care Team Providers Care Nurse Sane Name Role Phone Violeta Boo MD Primary Care Provide r Reason for Visit * Reason Onset Date Comments Med Refill 10/25/2024 Encounter Details Date Type Department Care Team ([facility] st Contact Info) Description 10/25/2024 Telephone [facility] MEDICINE [address] [place] [address] Violeta Boo MD [address] [place], [place] [phone] Med Refill Social History Tobacco Use Types [...] Description 01/23/2025 2:00 PM EDT Office Visit [facility] OPTOMETRY [address] [place] [address] Angella Negrete, OD [address] [place] [address] 02/05/2025 9:15 AM EDT Office Visit [facility] MEDICINE [address] [place] [address] Violeta Boo MD [address] [place] [address] documented as of this encounter Visit Diagnoses Not on filedocumented in this encounter Additional Health Concerns Assessment Noted Time PHQ-9 Depression Total Score: 17 024 11:23 AM EDT documented as of this encounter Care Teams Nurse Sane Relationship Specialty Start Date End Date Violeta Boo MD [address] [place] [address] PCP - General Family Medicine 05/21/22 documented as of this encounter
--- OUTSIDE RECORDS SUMMARY | 2025-01-17 10:53 | XMS_ITS | Encounter Summary ---
Author Organization [employer] Address 75 [facility] 7t [place] [address] Care Team Providers Care Technical Support Internship Name Role Phone Violeta Boo MD Primary Care Provide r Reason for Visit * Reason Onset Date Comments Reasonable Accommodation Request 10/25/2022 I called regarding a reasonable accommodation form, from [employer]. The pt states that she will be getting a scooter, because she is no longer able to use a cane or a walker. She is requesting an apartment with elevator accessibility, because it would be easier for her to get in and out of her apartment. Encounter Details Date Type Department Care Team ([facility] st Contact Info) Description 10/25/2022 Telephone [facility] MED & PEDS [address] [place] [address] Maksim Butler, [place] Reasonable Accommodation Request (I called regarding a reasonable accommodation form, from [employer]. The pt states that she will be [...] Description 01/23/2025 2:00 PM EDT Office Visit [facility] OPTOMETRY [address] [place] [address] Angella Negrete, OD [address] [place] [address] 02/05/2025 9:15 AM EDT Office Visit [facility] MEDICINE [address] [place] [address] Violeta Boo MD [address] [place] [address] documented as of this encounter Visit Diagnoses Not on filedocumented in this encounter Care Teams Technical Support Internship Relationship Specialty Start Date End Date Violeta Boo MD [address] [place] [address] PCP - General Family Medicine 05/21/22 documented as of this encounter
--- OUTSIDE RECORDS SUMMARY | 2025-01-17 10:53 | XMS_ITS | Encounter Summary ---
Author Organization [employer] Address [address] [facility] 7t [place] [address] Care Team Providers Care Pen Ruler Operator Name Role Phone Violeta Boo MD Primary Care Provide r Reason for Visit * Reason Comments Med Refill Encounter Details Date Type Department Care Team ([facility] st Contact Info) Description 10/21/2024 Refill [facility] MEDICINE [address] [place] [address] Violeta Boo MD [address] [place] [address] Pain Social History Tobacco Use Types Packs/Day [...] Description 01/23/2025 2:00 PM EDT Office Visit [facility] OPTOMETRY [address] [place] [address] Angella Negrete, OD [address] [place] [address] 02/05/2025 9:15 AM EDT Office Visit [facility] MEDICINE [address] [place] [address] Violeta Boo MD [address] [place] [address] documented as of this encounter Visit Diagnoses Diagnosis Pain Generalized pain documented in this encounter Additional Health Concerns Assessment Noted Time PHQ-9 Depression Total Score: 17 024 11:23 AM EDT documented as of this encounter Care Teams Pen Ruler Operator Relationship Specialty Start Date End Date Violeta Boo MD [address] [place] [address] PCP - General Family Medicine 05/21/22 documented as of this encounter
--- OUTSIDE RECORDS SUMMARY | 2025-01-17 10:53 | XMS_ITS | Encounter Summary ---
Author Organization [facility] Address [address] [place] [address] Phone Care Team Providers Care Night Cleaner Name Role Phone Violeta Boo MD Primary Care Provide r Encounter Details Date Type Department Care Team (Late st Contact Info) Description 12/24/2022 Documentation Only [facility] [address] [place] [phone] Jazmin Powell PA Social History Tobacco Use [...] [facility] [address] [place] [phone] Shailesh Vallejo MD [address] [place] [address] [place] [phone] documented as of this encounter Visit Diagnoses Not on filedocumented in this encounter Care Teams Night Cleaner Relationship Specialty Start Date End Date Violeta Boo MD [address] [place] [phone] PCP - General Internal Medicine 03/21/23 documented as of this encounter
--- OUTSIDE RECORDS SUMMARY | 2025-01-17 10:53 | XMS_ITS | Encounter Summary ---
Author Organization [facility] [place], Address [address] [place] [address] Phone Care Team Providers Care Radiologist Chief Of Breast Imaging Name Role Phone Violeta Boo MD Primary Care Provide r Encounter Details Date Type Department Care Team (Late st Contact Info) Description 08/27/2024 Documentation Only [facility] [address] [place] [phone] Rowena Knowles [address] [place] [address] Social History Tobacco Use Types [...] Visit [facility] [address] [place] [address] Shailesh Vallejo MD [address] [place] [address] [place] [address] documented as of this encounter Visit Diagnoses Not on filedocumented in this encounter Care Teams Radiologist Chief Of Breast Imaging Relationship Specialty Start Date End Date Violeta Boo MD [address] [place] [phone] PCP - General Internal Medicine 03/21/23 documented as of this encounter
--- OUTSIDE RECORDS SUMMARY | 2025-01-17 10:53 | XMS_ITS | Encounter Summary ---
Author Organization [employer] Address [address] [place] [address] 7 [place] [address] Care Team Providers Care Edger Automatic Name Role Phone Violeta Boo MD Primary Care Provide r Reason for Visit * Reason Onset Date Comments Appointment Request 02/17/2023 Encounter Details Date Type Department Care Team ([facility] Contact Info) Description 02/17/2023 Telephone [facility]ICINE [address] [place] [address] Violeta Boo MD [address] [place], [place] [phone] Appointment Request Social History Tobacco Use Types [...] message previously sent. Please contact pt at [phone] Lebanese Speaker * Telephone Encounter - Shay Navarro - 02/17/2023 1:16 PM EDT Tc from pt requesting to r/s appt for Follow up on 02/17/2023. Please contact pt at [phone] Lebanese Speaker documented in this encounter Plan of Treatment Upcoming Encounters Date Type Department Care Team (Late st Contact Info) Description 01/23/2025 2:00 PM EDT Office Visit [facility] OPTOMETRY [address] [place] [address] Angella Negrete, OD [address] [place] [address] 02/05/2025 9:15 AM EDT Office Visit [facility] MEDICINE [address] [place] [address] Violeta Boo MD [address] [place] [address] documented as of this encounter Visit Diagnoses Not on filedocumented in this encounter Care Teams Edger Automatic Relationship Specialty Start Date End Date Violeta Boo MD [address] [place] [address] PCP - General Family Medicine 05/21/22 documented as of this encounter
--- OUTSIDE RECORDS SUMMARY | 2025-01-17 10:53 | XMS_ITS | Encounter Summary ---
Author Organization [facility] Address [address] [place] [address] Phone Care Team Providers Care Bag Washer Name Role Phone Violeta Boo MD Primary Care Provide r Encounter Details Date Type Department Care Team (Late st Contact Info) Description 2022 Office Communication [facility] [address] [place] [address] Shailesh Vallejo MD [address] [place] [address] [place] [address] Social History Tobacco Use Types [...] Visit [facility] [address] [place] [address] Shailesh Vallejo MD [address] [place] [address] [place] [address] documented as of this encounter Visit Diagnoses Not on filedocumented in this encounter Care Teams Bag Washer Relationship Specialty Start Date End Date Violeta Boo MD [address] [place] [phone] PCP - General Internal Medicine 03/21/23 documented as of this encounter
--- OUTSIDE RECORDS SUMMARY | 2025-01-17 10:53 | XMS_ITS | Encounter Summary ---
Author Organization [facility], Address [address] [place] [address] Phone Care Team Providers Care Telecasting Technician Name Role Phone Violeta Boo MD Primary Care Provide r Encounter Details Date Type Department Care Team (Late st Contact Info) Description 05/05/2022 Documentation Only [facility] [address] [place] [address] Shailesh Vallejo MD [address] [place] [address] [place] [address] Social History Tobacco Use Types [...] [facility] [address] [place] [address] Shailesh Vallejo MD [address] [place] [address] [place] [address] documented as of this encounter Visit Diagnoses Not on filedocumented in this encounter Care Teams Telecasting Technician Relationship Specialty Start Date End Date Violeta Boo MD [address] [place] [phone] PCP - General Internal Medicine 03/21/23 documented as of this encounter
--- OUTSIDE RECORDS SUMMARY | 2025-01-17 10:53 | XMS_ITS | Encounter Summary ---
Author Organization [employer] Address 75 [facility] 7t [place] [address] Care Team Providers Care Infant Childcare Provider Name Role Phone Violeta Boo MD Primary Care Provide r Reason for Visit * Reason Onset Date Comments Durable Medical Equipment 10/13/2023 Encounter Details Date Type Department Care Team ([facility] st Contact Info) Description 10/13/2023 Telephone [facility] MED[facility] [address] [place] [address] Violeta Boo MD [address] [place], [place] [phone] Durable Medical Equipment Social History Tobacco Use [...] : 2xl Pullups Ensures Flavors Vanilla and [place] Gloves Large Wipes Pt states insurance fax over request. Please contact pt at [phone] Romansh Speaker documented in this encounter Plan of Treatment Upcoming Encounters Date Type Department Care Team (Late st Contact Info) Description 01/23/2025 2:00 PM EDT Office Visit [facility] OPTOMETRY [address] [place] [address] Caden, Angella, OD [address] [place] [address] 02/05/2025 9:15 AM EDT Office Visit [facility] MEDICINE [address] [place] [address] Violeta Boo MD [address] [place] [address] documented as of this encounter Visit Diagnoses Not on filedocumented in this encounter Care Teams Infant Childcare Provider Relationship Specialty Start Date End Date Violeta Boo MD [address] [place] [phone] PCP - General Family Medicine 05/21/22 documented as of this encounter
--- OUTSIDE RECORDS SUMMARY | 2025-01-17 10:53 | XMS_ITS | Encounter Summary ---
Author Organization [employer] Address [address] [place] [address] 7t [place] [address] Care Team Providers Care Volunteer Coordinator Name Role Phone Violeta Boo MD Primary Care Provide r Encounter Details Date Type Department Care Team (Latest Contact Info) Description 05/27/2022 Abstract [facility] CONVERSIONS Dental, Provider, DDS Social History [...] Description 01/23/2025 2:00 PM EDT Office Visit [facility] OPTOMETRY [address] [place] [address] Angella Negrete, OD [address] [place] [address] 02/05/2025 9:15 AM EDT Office Visit [facility] MEDICINE [address] [place] [address] Violeta Boo MD [address] [place] [address] documented as of this encounter Visit Diagnoses Not on filedocumented in this encounter Care Teams Volunteer Coordinator Relationship Specialty Start Date End Date Violeta Boo MD [address] [place] [address] PCP - General Family Medicine 05/21/22 documented as of this encounter
--- OUTSIDE RECORDS SUMMARY | 2025-01-17 10:53 | XMS_ITS | Encounter Summary ---
Author Organization [employer] Address [address] [place] [address] 7t [place] [address] Care Team Providers Care Pasta Press Operator Name Role Phone Violeta Boo MD Primary Care Provide r Encounter Details Date Type Department Care Team (Late Contact Info) Description 11/25/2022 Telephone [facility] MEDICINE [address] [place] [phone] Violeta Boo MD [address] [place] [address] Social History Tobacco Use Types Packs/Day Years [...] Description 01/23/2025 2:00 PM EDT Office Visit [facility] OPTOMETRY [address] [place] [address] Angella Negrete, OD [address] [place] [address] 02/05/2025 9:15 AM EDT Office Visit [facility] MEDICINE [address] [place] [address] Violeta Boo MD [address] [place] [address] documented as of this encounter Visit Diagnoses Not on filedocumented in this encounter Care Teams Pasta Press Operator Relationship Specialty Start Date End Date Violeta Boo MD [address] [place], [place] [phone] PCP - General Family Medicine 05/21/22 documented as of this encounter
--- OUTSIDE RECORDS SUMMARY | 2025-01-17 10:53 | XMS_ITS | Encounter Summary ---
Author Organization [facility] Address [address] [place] [address] Phone Care Team Providers Care Derrick Boat Runner Name Role Phone Violeta Boo MD Primary Care Provide r Encounter Details Date Type Department Care Team (Late st Contact Info) Description 03/22/2023 Documentation Only [facility] [address] [place] [phone] Jazmin Powell PA Social History Tobacco Use [...] Visit [facility] [address] [place] [phone] Shailesh Vallejo MD [address] [place] [address] [place] [phone] documented as of this encounter Visit Diagnoses Not on filedocumented in this encounter Care Teams Derrick Boat Runner Relationship Specialty Start Date End Date Violeta Boo MD [address] [place] [phone] PCP - General Internal Medicine 03/21/23 documented as of this encounter
--- OUTSIDE RECORDS SUMMARY | 2025-01-17 10:54 | XMS_ITS | Encounter Summary ---
Author Organization [employer] Address [address] [facility] 7 [place] [address] Care Team Providers Care Event Technician Name Role Phone Violeta Boo MD Primary Care Provide r Reason for Visit * Reason Onset Date Comments Durable Medical Equipment 12/18/2024 Encounter Details Date Type Department Care Team ([facility] st Contact Info) Description 12/18/2024 Telephone [facility] MEDICINE [address] [place] [address] Violeta Boo MD 230 [place] [address] Durable Medical Equipment Social History Tobacco Use [...] DME for Walker signed and faxed to [facility] Licensed Optician . Confirmation received and sent to scan. If patient calls to check status on above, please advise them to contact [facility]. . * Telephone Encounter - Rubia Cain - 12/20/2024 4:05 PM EST DME RX for Walker generated and placed on providers desk for signature. * Telephone Encounter - Maddi Boggs - 12/18/2024 11:54 AM EST Tc from pt stating she was contacted for a wheelchair but pt denied. Pt stated she needs a walker. If any questions contact pt at [phone] documented in this encounter Plan of Treatment Upcoming Encounters Date Type Department Care Team (Late st Contact Info) Description 01/23/2025 2:00 PM EDT Office Visit [facility] OPTOMETRY [address] [place] [address] Angella Negrete, OD 230 [place], [place] [phone] 02/05/2025 9:15 AM EDT Office Visit [facility] MEDICINE [address] [place], [place] [phone] Violeta Boo MD 230 [place], [place] [phone] documented as of this encounter Visit Diagnoses Not on filedocumented in this encounter Additional Health Concerns Assessment Noted Time PHQ-9 Depression Total Score: 17 024 11:23 AM EDT documented as of this encounter Care Teams Event Technician Relationship Specialty Start Date End Date Violeta Boo MD [address] [place] [phone] PCP - General Family Medicine 05/21/22 documented as of this encounter
--- OUTSIDE RECORDS SUMMARY | 2025-01-17 10:54 | XMS_ITS | Encounter Summary ---
Author Organization [employer] Address [address] [place] [address] [address] [place] [address] Care Team Providers Care Special Service Representative Name Role Phone Violeta Boo MD Primary Care Provide r Reason for Visit * Reason Onset Date Comments Reasonable Accommodation 12/26/2024 I arellano d the patient regarding a reasonable accommodation request, from [employer]. The form lists the patient's medical conditions, but it does not state what the accommodation is. There was no answer, and I reached a recording stating that the person's voicemail is not not set up. I then called her elderly caregiver, Nikita, and she stated that she is not sure of what the patient is requesting. She agreed to ask the patient to return my call at ext [phone]. Encounter Details Date Type Department Care Team (Late st Contact Info) Description 12/26/2024 Telephone [facility] MEDICINE 230 [place], [place] [phone] Violeta Boo MD 230 [place], [place] [phone] Reasonable Accommodation (I called the patient regarding a reasonable accommodation request, from [employer]. The form lists the patient's medical conditions, but it does not state what the accommodation is. There was no answer, and I reached a recording stating that the person's voicemail is not not set up. I then called her elderly caregiver, Nikita, and she stated that she is not sure of what the patient is requesting. She agreed to ask the patient to return my call at ext [phone].) Social History Tobacco Use Types Packs/Day Years [...] patient regarding a reasonable accommodation request, from [employer]. The form lists the patient's medical conditions, but it does not state what the accommodation is. There was no answer, and I reached a recording stating that the person's voicemail is not not set up. I then called her elderly caregiver, Nikita, and she stated that she is not sure of what the patient is requesting. She agreed to ask the patient to return my call at ext [phone]. documented in this encounter Plan of Treatment Upcoming Encounters Date Type Department Care Team (Late st Contact Info) Description 01/23/2025 2:00 PM EDT Office Visit [facility] OPTOMETRY [address] [place] [address] Caden, Angella, OD 230 [place] [address] 02/05/2025 9:15 AM EDT Office Visit [facility] MEDICINE [address] [place] [address] Violeta Boo MD 230 [place] [address] documented as of this encounter Visit Diagnoses Not on filedocumented in this encounter Additional Health Concerns Assessment Noted Time PHQ-9 Depression Total Score: 17 024 11:23 AM EDT documented as of this encounter Care Teams Special Service Representative Relationship Specialty Start Date End Date Violeta Boo MD 230 [place] [address] PCP - General Family Medicine 05/21/22 documented as of this encounter
--- OUTSIDE RECORDS SUMMARY | 2025-01-17 10:54 | XMS_ITS | Encounter Summary ---
Author Organization [employer] Address [address] [facility] 7 [place] [address] Care Team Providers Care Polytechnic Registrar Name Role Phone Violeta Boo MD Primary Care Provide r Reason for Visit * Reason Onset Date Comments Appointment Request 12/27/2024 Encounter Details Date Type Department Care Team ([facility] Contact Info) Description 12/27/2024 Telephone [facility] MEDICINE 230 [place] [address] Violeta Boo MD 230 [place], [place] [phone] Appointment Request Social History Tobacco Use Types [...] 10:51 AM EST Tc from [facility] with [facility] requesting for pcp to perform a cognitive test during appt 02/05 to determine weather pt has any decisional capacity or memory issues. If any questions you can contact [facility] at [phone]. documented in this encounter Plan of Treatment Upcoming Encounters Date Type Department Care Team (Late st Contact Info) Description 01/23/2025 2:00 PM EDT Office Visit [facility] OPTOMETRY [address] [place] [address] Angella Negrete, OD 230 [place] [address] 02/05/2025 9:15 AM EDT Office Visit [facility] MEDICINE 230 [place] [address] Violeta Boo MD 230 [place] [address] documented as of this encounter Visit Diagnoses Not on filedocumented in this encounter Additional Health Concerns Assessment Noted Time PHQ-9 Depression Total Score: 17 08/13/ 024 11:23 AM EDT documented as of this encounter Care Teams Polytechnic Registrar Relationship Specialty Start Date End Date Violeta Boo MD 230 [place] [address] PCP - General Family Medicine 05/21/22 documented as of this encounter
--- OUTSIDE RECORDS SUMMARY | 2025-01-17 10:54 | XMS_ITS | Encounter Summary ---
Author Organization [employer] Address [address] [facility] 7 [place] [address] Care Team Providers Care Strategic Sourcing Manager Name Role Phone Violeta Boo MD Primary Care Provide r Reason for Visit * Reason Onset Date Comments [facility] request 01/01/2025 Encounter Details Date Type Department Care Team ([facility] st Contact Info) Description 01/01/[address] [facility] MEDICINE [address] [place] [address] Violeta Boo MD [address] [place] [address] [facility] request Social History Tobacco Use [...] PM EST RN received incoming fax from [employer] requesting PCP signature for GI infections testing. RN called [facility] [phone] to inquire on where this order request cam from as patient has NOT seen PCP since 07/2024 and this lab was not ordered by PCP. RN was informed the patient contacted this [facility] and requested to have the testing performed and they are looking for PCP authorization. RN advised office, PCP will not be signing the form as the patient has not been seen since for any GI concern recently. RN advised [facility] patient has an upcoming appointment on 02/05/25 [...] 2:00 PM EDT Office Visit [facility] OPTOMETRY [address] [place] [address] Angella Negrete, OD 230 [place] [address] 02/05/2025 9:15 AM EDT Office Visit [facility] MEDICINE [address] [place], [place] [phone] Violeta Boo MD 230 [place], [place] [phone] documented as of this encounter Visit Diagnoses Not on filedocumented in this encounter Additional Health Concerns Assessment Noted Time PHQ-9 Depression Total Score: 17 024 11:23 AM EDT documented as of this encounter Care Teams Strategic Sourcing Manager Relationship Specialty Start Date End Date Violeta Boo MD 230 [place], [place] [phone] PCP - General Family Medicine 05/21/22 documented as of this encounter
--- OUTSIDE RECORDS SUMMARY | 2025-01-17 10:54 | XMS_ITS | Encounter Summary ---
Author Organization [facility] Address [address] [place] [phone] Care Team Providers Care Butter Wrapper Name Role Phone Violeta Boo MD Primary Care Provide r Reason for Visit * Reason Comments Consult Nail fungus Encounter Details Date Type Department Care Team ([facility] st Contact Info) Description 01/16/2025 1:00 PM EST Office Visit [facility] [place] [address] [phone] Maury Godoy, DPM [address] [address] Dermatophytosis of nail (Primary Dx); Tinea pedis of both feet; Pain in toe of right foot; Pain in toe of left foot; Corns and callosities; Diabetic mononeuropathy simplex (CMS/HCC); Type II diabetes mellitus with peripheral circulatory disorder (CMS/HCC); Acquired hallux valgus of left foot; Acquired hallux valgus of right foot; Metatarsalgia of both feet Social History Tobacco Use Types Packs/Day Years Used Date Smoking Tobacco: Never Assessed Comments Unknown Sex and Gender Information Value Date Recorded Sex Assigned at Not on file Legal Sex Female 11:41 AM EST Gender Identity Not on file Sexual Orientation Not on file documented as of this encounter Last Filed Vital Signs Vital Sign Reading Time Taken Comments Blood Pressure - - Pulse - - Temperature - - Respiratory Rate - - Oxygen Saturation - - Inhaled Oxygen Concentration - - Weight 116 kg (256 lb) 01/16/2025 12:59 PM EST Height 165.1 cm (5' 5 ) 01/16/2025 12:59 PM EST Body Mass Index 42.6 01/16/2025 12:59 PM EST documented in this encounter Ordered Prescriptions Prescription Sig Dispense Quantity Refills Last Filled Start Date End Date ciclopirox (PENLAC) 8 % solution Apply topically at bedtime. Apply over nail and surrounding skin. Apply daily over previous coat. After seven (7) days, may remove with alcohol and continue cycle. 6.6 mL 3 01/16/2025 5 documented in this encounter Progress Notes * Maury Godoy DPM - 01/16/2025 1:00 PM EST Last PCP visit:Referring MD: Violeta Muñoz 01/09/2025 S Patient presents today with her it administrative assistant was present notes she is type II diabetic has numbness burning tingling to her feet she notes she has thick fungal nails and skin with thick itchy skin on both feet she notes that she has skin is thick in the instep as well as her heels which bothers her she has pain discomfort is a 5 out of 10 on a visual analog scale achy throbbing itching of both lowerextremity patient has difficulty bending over touching her feet she has a long history of multiple back problems and does use assistive walking devices for ambulation with advanced arthritis of her knees and hips patient reports worsening thickened nails she is wonder if something else could be pres cribed for her nails he states the topical medications previous that was not helping and pain discomfort toenails are getting worse not better ROS: GENERAL: Pt denies nausea, fever, vomiting, chills, or shortness of breath. Pt in NAD. CARDIOLOGY: pt denies chest pain, palpitations LUNGS: pt denies shortness of breath MUSCULOSKELETAL: See HPI, otherwise no joint pain or swelling, back pain, or muscle pain. SKIN: see HPI, otherwise no lesions, rash or itching NEURO: No persistent headache, weakness or numbness The remainder of the review of systems is noncontributory PAST MEDICAL HISTORY: Patient Active Problem List Diagnosis Code Anxiety F41.9 Asthma J45.909 Chronic kidney disease, stage III (moderate) ([facility]) N18.30 Essential hypertension, benign I10 Hyperlipidemia E78.5 Osteopenia M85.80 Primary osteoarthritis of both knees M17.0 Psychotic disorder ([facility]) F29 Tubular adenoma of colon D12.6 Bulging lumbar disc M51.36 Calcification of breast R92.1 Chronic diarrhea K52.9 Chronic gouty arthritis M1A.00X0 Dyslipidemia E78.5 Episodic mood disorder (HCC) F39 Generalized osteoarthritis M15.9 Hemorrhoids, complicated K64.8 Inflammatory dermatosis L98.9 Intertrigo L30.4 Chronic bilateral low back pain with bilateral sciatica M54.42, M54.41, G89.29 Lumbar spinal stenosis M48.061 Moderate persistent asthma J45.40 Morbid obesity (HCC) E66.01 Non-cardiac chest pain R07.89 Onychomycosis B35.1 Otitis externa H60.90 Seasonal allergies J30.2 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 Somatoform pain disorder F45.41 Type 2 diabetes mellitus (HCC) E11.9 Unintended awareness under general anesthesia during procedure T88.53XA Vertigo R42 Right hip pain M25.551 Other spondylosis with radiculopathy, lumbar region M47.26 SOCIAL HISTORY: Social History Tobacco Use Smoking status: Not on file Smokeless tobacco: Not on file Substance Use Topics Alcohol use: Not on file History Last Reviewed by Pooja Charles on 11/03/2017 at 8:54 AM Sections Reviewed Medical ACTIVE MEDICATIONS: Current Outpatient Medications Medication Sig Dispense Refill clotrimazole (LOTRIMIN) 1 % cream Apply to skin and toenails daily for 12 weeks 45 g 3 acetaminophen (TYLENOL) 500 MG tablet TAKE 2 TABLETS BY MOUTH EVERY 8 HOURS NEEDED albuterol (PROVENTIL) (2.5 MG/3ML) 0.083% nebulizer solution INHALE 1 AMPULE USING A NEBULIZER THREE TIMES DAILY ALBUTEROL SULFATE 108 (90 Base) MCG/ACT Aero Soln Inhale into the lungs. atorvastatin (LIPITOR) 80 MG tablet TAKE 1 TABLET BY MOUTH EVERY MORNING brimonidine (ALPHAGAN) 0.2 % ophthalmic solution INSTILL 1 DROP INTO THE AFFECTED EYE(S) THREE TIMES DAILY DIRECTED Calcium Carb-Cholecalciferol (Calcium + Vitamin D3) 600-10 MG-MCG Tab TAKE 1 TABLET BY MOUTH TWICE DAILY IN THE MORNING AND IN THE EVENING chlorthalidone (HYGROTEN) 25 MG tablet TAKE 1 TABLET BY MOUTH EVERY MORNING Cyanocobalamin 1000 MCG SL Tab DISSOLVE 1 TABLET UNDER THE TONGUE EVERY DAY ferrous sulfate 325 (65 Fe) MG tablet TAKE 1 TABLET BY MOUTH EVERY MORNING fexofenadine 180 MG tablet TAKE 1 TABLET BY MOUTH EVERY MORNING Fluocinolone Acetonide Body 0.01 % Oil Apply topically. fluticasone 50 MCG/ACT nasal spray 2 Sprays by Nasal route. Fluticasone-Salmeterol 250-50 MCG/ACT AEROSOL POWDER,BREATH ACTIVATED Inhale 1 Puff into the lungs. gabapentin (NEURONTIN) 300 MG capsule TAKE 1 CAPSULE BY MOUTH TWICE DAILY IN THE MORNING AND IN THEEVENING glucose blood test strips ([employer] Ultra) strip TEST BLOOD SUGAR ONCE DAILY Meclizine HCl 25 MG Tab Take 1 Tablet by mouth. metoprolol (TOPROL-XL) 50 MG 24 hr tablet TAKE 1 TABLET BY MOUTH EVERY MORNING pantoprazole (PROTONIX) 40 MG tablet TAKE 1 TABLET BY MOUTH EVERY MORNING olanzapine (ZYPREXA) 15 MG tablet Take 1 Tablet by mouth. montelukast (SINGULAIR) 10 MG tablet TAKE 1 TABLET BY MOUTH EVERY EVENING Simethicone 180 MG Cap TAKE 1 CAPSULE BY MOUTH EVERY 8 HOURS WITH MEALS NEEDED FOR GAS triamcinolone (KENALOG) 0.1 % cream Apply topically. No current facility-administered medications for this visit. ALLERGIES: Aspirin, Contrast dye [iv contrast dye], and Diagnostic x-ray materials PHYSICAL EXAM: Height 5' 5 (1.651 m), weight 280 lb (127 kg). Estimated body mass index is 46.59 kg/m?? as calculated from the following: Height as of this encounter: 5' 5 (1.651 m). Weight as of this encounter: 280 lb (127 kg). PODIATRIC EXAMINATION: GENERAL: Patient appears well nourished, with NAD. VASCULAR: Dorsalis pedis pulses are1/4 bilaterally and Posterior tibial pulses are 0-4 left 1 out of 4 right. Capillary filling time within normal limits the digits. No pallor on elevation or rubor on dependency. Diminished hair growth. +3 pain edema bilateral varicosities. Denies rest pain or claudication pain. NEUROLOGICAL: Sharp/dull sensation intact, protective sensation intact 10/10 with 5.07 semmes angi bilaterally, vibratory sensation with tuning fork intact to the tibial tuberosity. ORTHOPEDIC: Good muscle strength 5/5 of all flexors and extensors. Dorsi flexion of ankle ,10 degrees, plantar flexion WNL. No muscle atrophy. DERMATOLOGICAL:. Toenails: Left Toenail(s) 1-5: Crumbling upon debridement, subungual debris, discoloration, dystrophy, elongation, mycotic appearance, onychomycosis, pain and thickening. Right Toenail(s) 1-5: Crumbling upon debridement, subungual debris, discoloration, dystrophy, elongation, mycotic appearance, onychomycosis, pain and thickening. Annular scaling bilateral feet moccasin distribution Hyperkeratotic tissue subfirst metatarsal bilateral hyperkeratotic tissue bilateral heels - Hair growth decreased or absent - nail changes thickening - pigmentary changes discoloration - skin texture thin shiny BIOMECHANICS: STJ ROM wnl, MTJ ROM wnl, 1st MPJ ROM limited with mild bunion deformity bilateral. IMAGING: IMPRESSION: 1. Dermatophytosis of nail 2. Tinea pedis of both feet 3. Pain in toe of right foot 4. Pain in toe of left foot 5. Corns and callosities 6. Diabetic mononeuropathy simplex (CMS/HCC) 7. Type II diabetes mellitus with peripheral circulatory disorder (CMS/HCC) 8. Acquired hallux valgus of left foot 9. Acquired hallux valgus of right foot 10. Metatarsalgia of both feet PLAN: Pt was seen and examined, history reviewed. Discussed with patient regarding proper glucose control, exercise, and diet. Explained to patient proper shoe gear, and importance of daily foot checks. RX dispensed for ciclopirox I reviewed neuropathy and why it occurs in diabetics. I educated the patient on proper blood sugar control and the importance of an HgBA1c of less than 7.0%. I reviewed the signs and symptoms of neuropathy with the patient Pedal deformities were discussed and reviewed patient is limited to the ambulation discussed plus minus her plain radiographs to better evaluate for her bunion deformities and osteoarthritis continuewith accommodative shoe gear continue with accommodative walking devices Pt to return for another evaluation in 3 months. Debridement of mycotic toenails 6-10: Verbal informed consent was obtained from the patient. Greater than 6 nails were aseptically debrided in thickness and length with nail nippers Hyperkeratotic tissue debrided pared with a number #15 scalpel blade x4 Maury Godoy DPM documented in this encounter Plan of Treatment Upcoming Encounters Date Type Department Care Team (Late st Contact Info) Description 04/18/2025 9:30 AM EDT Office Visit Orthopedic Surgery - [place] [address] [phone] Maury Godoy, DPM [address] [address] documented as of this encounter Visit Diagnoses Diagnosis Dermatophytosis of nail- Primary Tinea pedis of both feet Pain in toe of right foot Pain in soft tissues of limb Pain in toe of left foot Pain in soft tissues of limb Corns and callosities Diabetic mononeuropathy simplex (CMS/HCC) Type II or unspecified type diabetes mellitus with neurological manifestations, not stated as uncontrolled Type II diabetes mellitus with peripheral circulatory disorder (CMS/HCC) Type II or unspecified type diabetes mellitus with peripheral circulatory disorders, not stated as uncontrolled Acquired hallux valgus of left foot Acquired hallux valgus of right foot Metatarsalgia of both feet documented in this encounter Care Teams Butter Wrapper Relationship Specialty Start Date End Date Violeta Boo MD [address] [phone] PCP - General 03/29/23 documented as of this encounter
--- OUTSIDE RECORDS SUMMARY | 2025-01-17 10:54 | XMS_ITS | Encounter Summary ---
Author Organization [employer] Address 75 [facility] 7 [place] [address] Care Team Providers Care Heel Lift Gouger Name Role Phone Violeta Boo MD Primary Care Provide r Reason for Visit * Reason Onset Date Comments FYI 01/11/2025 Housing Form 01/11/2025 I called the pat ient regarding a reasonable accommodation request, from [employer]. The form lists the patient's medical conditions, but it does not state what the accommodation is. I reached her voicemail, and left a message asking her to return my call at ext [phone]. Encounter Details Date Type Department Care Team ([facility] st Contact Info) Description 01/11/2025 Telephone [facility] MEDICINE 230 [place], [place] [phone] Violeta Boo MD 230 [place], [place] [phone] FYI ; Housing Form (I called the patient regarding a reasonable accommodation request, from [employer]. The form lists the patient's medical conditions, but it does not state what the accommodation is. I reached her voicemail, and left a message asking her to return my call at ext [phone].) Social History Tobacco Use Types Packs/Day Years [...] 01/23/2025 2:00 PM EDT Office Visit [facility] OPTOMETRY [address] [place], [place] [phone] Caden, Angella, OD [address] [place] [address] 02/05/2025 9:15 AM EDT Office Visit [facility] MEDICINE 230 [place], [place] [phone] Violeta Boo MD 230 [place] [address] documented as of this encounter Visit Diagnoses Not on filedocumented in this encounter Additional Health Concerns Assessment Noted Time PHQ-9 Depression Total Score: 17 024 11:23 AM EDT documented as of this encounter Care Teams Heel Lift Gouger Relationship Specialty Start Date End Date Violeta Boo MD [address] [place] [phone] PCP - General Family Medicine 05/21/22 documented as of this encounter
--- OUTSIDE RECORDS SUMMARY | 2025-01-17 10:54 | XMS_ITS | Encounter Summary ---
Author Organization [employer] Address 75 [facility] 7t [place] [address] Care Team Providers Care Irrigation Manager Name Role Phone Violeta Boo MD Primary Care Provide r Reason for Visit * Reason Onset Date Comments Appt cancelation 03/02/2024 Encounter Details Date Type Department Care Team ([facility] st Contact Info) Description 03/02/2024 Telephone [facility] MEDICINE [address] [place] [address] Violeta Boo MD [address] [place], [place] [phone] Appt cancelation Social History Tobacco Use Types [...] 04/27 due to being referred to outside automated logistics specialist documented in this encounter Plan of Treatment Upcoming Encounters Date Type Department Care Team (Late st Contact Info) Description 01/23/2025 2:00 PM EDT Office Visit [facility] OPTOMETRY [address] [place] [address] Caden, Angella, OD 230 [place] [address] 02/05/2025 9:15 AM EDT Office Visit [facility] MEDICINE [address] [place] [address] Violeta Boo MD [address] [place] [address] documented as of this encounter Visit Diagnoses Not on filedocumented in this encounter Care Teams Irrigation Manager Relationship Specialty Start Date End Date Violeta Boo MD [address] [place] [address] PCP - General Family Medicine 05/21/22 documented as of this encounter
--- OUTSIDE RECORDS SUMMARY | 2025-01-17 10:54 | XMS_ITS | Encounter Summary ---
Author Organization [employer] Address 75 [facility] 7 [place] [address] Care Team Providers Care Firmware Architect Name Role Phone Violeta Boo MD Primary Care Provide r Reason for Visit * Reason Onset Date Comments New Med Request 12/14/2024 Encounter Details Date Type Department Care Team ([facility] st Contact Info) Description 12/14/2024 Telephone [facility] MEDICINE [address] [place] [address] Violeta Boo MD [address] [place] [address] New Med Request Social History Tobacco Use [...] 12:00 PM EST TC placed to patient [phone] in regards to below message via [employer] (Justin #[id number]). Patient reports she was to be Rx'd [...] No further details provided. Contact pt at [phone] ([place] * Telephone Encounter - Leda Ruiz RN - 12/14/2024 9:57 AM EST TC placed to [facility] pharmacy to inquire on RX prescriber. RN was informed patient receives Ozempic from Shaheen Yi NP and patient last received medication on 10/31/24 for a 28 day supply. RN called patient [phone] in regards to above message. Patient reports he sees this provider on her tablet . Patient reports she has never seen this doctor in person and is not sure what kind of doctor he is. Patient reports she called Shaheen's office at [phone] to request a dose increase and was advised to call PCP office. RN placed patient on hold and called [phone] to inquire further. RNwas informed the facility is called [facility] and their home office is in [place], they are a TELEHEALTH service thru the [...] refills. RN conference [facility] who scheduled the patient for an appointment [...] Description 01/23/2025 2:00 PM EDT Office Visit [facility] OPTOMETRY [address] [place], [place] [phone] Angella Negrete, OD [address] [place], [place] [phone] 02/05/2025 9:15 AM EDT Office Visit [facility] MEDICINE [address] [place], [place] [phone] Violeta Boo MD [address] [place] [address] [phone] documented as of this encounter Visit Diagnoses Not on filedocumented in this encounter Additional Health Concerns Assessment Noted Time PHQ-9 Depression Total Score: 17 024 11:23 AM EDT documented as of this encounter Care Teams Firmware Architect Relationship Specialty Start Date End Date Violeta Boo MD [address] [place] [address] [phone] PCP - General Family Medicine 05/21/22 documented as of this encounter
--- OUTSIDE RECORDS SUMMARY | 2025-01-17 10:54 | XMS_ITS | Encounter Summary ---
Author Organization [employer] Address 75 [facility] 7t [place] [address] Care Team Providers Care Import/Export Clerk Name Role Phone Violeta Boo MD Primary Care Provide r Reason for Visit * Reason Comments Med Refill Encounter Details Date Type Department Care Team ([facility] st Contact Info) Description 03/22/2024 Refill [facility] [address] [place] [address] Violeta Boo MD [address] [place] [address] Dermatitis Social History Tobacco Use Types Packs/Day [...] Description 01/23/2025 2:00 PM EDT Office Visit [facility] OPTOMETRY [address] [place] [address] Caden, Angella, OD 230 [place] [address] 02/05/2025 9:15 AM EDT Office Visit [facility] [address] [place] [address] Violeta Boo MD [address] [place] [address] documented as of this encounter Visit Diagnoses Diagnosis Dermatitis Contact dermatitis and other eczema, due to unspecified cause documented in this encounter Care Teams Import/Export Clerk Relationship Specialty Start Date End Date Violeta Boo MD [address] [place] [address] PCP - General Family Medicine 05/21/22 documented as of this encounter
--- OUTSIDE RECORDS SUMMARY | 2025-01-17 10:54 | XMS_ITS | Encounter Summary ---
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 documented in this encounter Plan of Treatment Upcoming Encounters Date Type Department Care Team (Late st Contact Info) Description 01/23/2025 2:00 PM EDT Office Visit [facility] OPTOMETRY [address] [place] [address] Angella Negrete, OD [address] [place] [address] 02/05/2025 9:15 AM EDT Office Visit [facility] MEDICINE [address] [place], [place] [phone] Violeta Boo MD [address] [place] [address] documented as of this encounter Visit Diagnoses Not on filedocumented in this encounter Additional Health Concerns Assessment Noted Time PHQ-9 Depression Total Score: 17 024 11:23 AM EDT documented as of this encounter Care Teams Power Marketer Relationship Specialty Start Date End Date Violeta Boo MD [address] [place] [address] [phone] PCP - General Family Medicine 05/21/22 documented as of this encounter
--- OUTSIDE RECORDS SUMMARY | 2025-01-17 10:54 | XMS_ITS | Encounter Summary ---
Author Organization [employer] Address 75 [facility] 7t [place] [address] Care Team Providers Care Pulverizing And Sifting Operator Name Role Phone Violeta Boo MD Primary Care Provide r Encounter Details Date Type Department Care Team ([facility] st Contact Info) Description 11/10/2023 Abstract [facility] MEDICINE [address] [place], [place] [phone] Violeta Boo MD [address] [place] [address] Social History Tobacco Use Types Packs/Day Years [...] 01/23/2025 2:00 PM EDT Office Visit [facility] OPTOMETRY [address] [place] [address] Caden, Angella, OD [address] [place] [address] 02/05/2025 9:15 AM EDT Office Visit [facility] MEDICINE [address] [place] [address] Violeta Boo MD [address] [place] [address] documented as of this encounter Visit Diagnoses Not on filedocumented in this encounter Care Teams Pulverizing And Sifting Operator Relationship Specialty Start Date End Date Violeta Boo MD [address] [place] [phone] PCP - General Family Medicine 05/21/22 documented as of this encounter
--- OUTSIDE RECORDS SUMMARY | 2025-01-17 10:54 | XMS_ITS | Encounter Summary ---
Author Organization [employer] Address 75 [facility] 7 [place] [address] Care Team Providers Care Car Pre Cooler Name Role Phone Violeta Boo MD Primary Care Provide r Reason for Visit * Reason Onset Date Comments call back required 12/24/2024 Encounter Details Date Type Department Care Team ([facility] st Contact Info) Description 12/24/2024 Telephone [facility] MEDICINE [address] [place] [address] Violeta Boo MD [address] [place] [address] call back required Social History Tobacco Use [...] has a 41% no show rate at [facility]. Alem advised RN cannot comment on [...] 10:56 AM EST TC from alem with [facility] Senior Service / Adult Protective service requesting [...] any concerns for this patient? Alem # [phone] ext [phone] documented in this encounter Plan of Treatment Upcoming Encounters Date Type Department Care Team (Late st Contact Info) Description 01/23/2025 2:00 PM EDT Office Visit [facility] OPTOMETRY [address] [place], [place] [phone] Caden Angella, OD [address] [place] [address] 02/05/2025 9:15 AM EDT Office Visit [facility] MEDICINE [address] [place] [address] Violeta Boo MD [address] [place] [address] documented as of this encounter Visit Diagnoses Not on filedocumented in this encounter Additional Health Concerns Assessment Noted Time PHQ-9 Depression Total Score: 17 024 11:23 AM EDT documented as of this encounter Care Teams Car Pre Cooler Relationship Specialty Start Date End Date Violeta Boo MD [address] [place] [address] [phone] PCP - General Family Medicine 05/21/22 documented as of this encounter
--- OUTSIDE RECORDS SUMMARY | 2025-01-17 10:54 | XMS_ITS | Encounter Summary ---
Author Organization [employer] Address 75 [facility] 7t [place] [address] Care Team Providers Care Information Systems Professor Name Role Phone Violeta Boo MD Primary Care Provide r Reason for Visit * Reason Onset Date Comments Appointment Request 11/11/2023 Encounter Details Date Type Department Care Team ([facility] Contact Info) Description 11/11/2023 Telephone [facility] MEDICINE [address] [place] [address] Violeta Boo MD [address] [place], [place] [phone] Appointment Request Social History Tobacco Use Types [...] on 11/16/23 due to being covid positive 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 did cancel appt documented in this encounter Plan of Treatment Upcoming Encounters Date Type Department Care Team (Late st Contact Info) Description 01/23/2025 2:00 PM EDT Office Visit [facility] OPTOMETRY [address] [place] [address] Caden, Angella, OD 230 [place] [address] 02/05/2025 9:15 AM EDT Office Visit [facility] MEDICINE [address] [place] [address] Violeta Boo MD [address] [place] [address] documented as of this encounter Visit Diagnoses Not on filedocumented in this encounter Care Teams Information Systems Professor Relationship Specialty Start Date End Date Violeta Boo MD [address] [place] [address] PCP - General Family Medicine 05/21/22 documented as of this encounter
--- OUTSIDE RECORDS SUMMARY | 2025-01-17 10:54 | XMS_ITS | Encounter Summary ---
Author Organization [email or web address] Address 75 [facility] 7t [place] [address] Care Team Providers Care Small Engine Specialist Name Role Phone Violeta Boo MD Primary Care Provide r Encounter Details Date Type Department Care Team (Late Contact Info) Description 08/17/2023 Abstract [facility] MEDICINE [address] [place] [address] Violeta Boo MD [address] [place] [address] Social History Tobacco Use Types Packs/Day Years [...] [facility] OPTOMETRY [address] [place] [address] Angella Negrete, OD 230 [place], [place] [phone] 02/05/2025 9:15 AM EDT Office Visit [facility] MEDICINE [address] [place] [address] Violeta Boo MD [address] [place] [address] documented as of this encounter Visit Diagnoses Not on filedocumented in this encounter Care Teams Small Engine Specialist Relationship Specialty Start Date End Date Violeta Boo MD [address] [place] [address] [phone] PCP - General Family Medicine 05/21/22 documented as of this encounter
--- OUTSIDE RECORDS SUMMARY | 2025-01-17 10:54 | XMS_ITS | Encounter Summary ---
Author Organization [employer] Address 75 [facility] 7t [place] [address] Care Team Providers Care Diesel Locomotive Firer/Fireman Name Role Phone Violeta Boo MD Primary Care Provide r Reason for Visit * Reason Onset Date Comments Appointment Request 12/18/2024 Encounter Details Date Type Department Care Team ([facility] st Contact Info) Description 12/18/2024 Telephone [facility] MEDICINE [address] [place] [address] [place]ald [place] Appointment Request Social History [...] 2:00 PM EDT Office Visit [facility] OPTOMETRY [address] [place] [address] Caden, Angella, OD 230 [place] [address] 02/05/2025 9:15 AM EDT Office Visit [facility] MEDICINE [address] [place] [address] Violeta Boo MD [address] [place] [address] documented as of this encounter Visit Diagnoses Not on filedocumented in this encounter Additional Health Concerns Assessment Noted Time PHQ-9 Depression Total Score: 17 024 11:23 AM EDT documented as of this encounter Care Teams Diesel Locomotive Firer/Fireman Relationship Specialty Start Date End Date Violeta Boo MD [address] [place] [address] PCP - General Family Medicine 05/21/22 documented as of this encounter
--- OUTSIDE RECORDS SUMMARY | 2025-01-17 10:54 | XMS_ITS | Encounter Summary ---
Author Organization [employer] Address 75 [facility] 7t [place] [address] Care Team Providers Care Cow Trimmer Name Role Phone Violeta Boo MD Primary Care Provide r Reason for Visit * Reason Onset Date Comments Augustine askew needed. 12/20/2024 Encounter Details Date Type Department Care Team ([facility] st Contact Info) Description 12/20/2024 Telephone [facility] MEDICINE [address] [place] [address] Violeta Boo MD [address] [place], [place] [phone] Augustine askew needed. 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 documented in this encounter Plan of Treatment Upcoming Encounters Date Type Department Care Team (Late st Contact Info) Description 01/23/2025 2:00 PM EDT Office Visit [facility] OPTOMETRY [address] [place] [address] Caden, Angella, OD [address] [place] [address] 02/05/2025 9:15 AM EDT Office Visit [facility] MEDICINE [address] [place] [address] Violeta Boo MD [address] [place] [address] documented as of this encounter Visit Diagnoses Not on filedocumented in this encounter Additional Health Concerns Assessment Noted Time PHQ-9 Depression Total Score: 17 024 11:23 AM EDT documented as of this encounter Care Teams Cow Trimmer Relationship Specialty Start Date End Date Violeta Boo MD [address] [place] [address] PCP - General Family Medicine 05/21/22 documented as of this encounter
--- OUTSIDE RECORDS SUMMARY | 2025-01-17 10:54 | XMS_ITS | Encounter Summary ---
Author Organization [employer] Address 75 [facility] 7t [place] [address] Care Team Providers Care Freight Breaker Name Role Phone Violeta Boo MD Primary Care Provide r Reason for Visit * Reason Comments Med Refill Encounter Details Date Type Department Care Team ([facility] st Contact Info) Description 01/04/2025 Refill [facility] MEDICINE [address] [place] [address] Violeta Boo MD [address] [place] [address] Social History Tobacco Use Types Packs/Day Years [...] Description 01/23/2025 2:00 PM EDT Office Visit [facility] OPTOMETRY [address] [place] [address] CadenAngella lea, OD [address] [place] [address] 02/05/2025 9:15 AM EDT Office Visit [facility] MEDICINE [address] [place] [address] Violeta Boo MD [address] [place] [address] documented as of this encounter Visit Diagnoses Not on filedocumented in this encounter Additional Health Concerns Assessment Noted Time PHQ-9 Depression Total Score: 17 024 11:23 AM EDT documented as of this encounter Care Teams Freight Breaker Relationship Specialty Start Date End Date Violeta Boo MD [address] [place] [address] PCP - General Family Medicine 05/21/22 documented as of this encounter
--- OUTSIDE RECORDS SUMMARY | 2025-01-17 10:54 | XMS_ITS | Encounter Summary ---
Author Organization [employer] Address [address] [place] [address] 7 [place] [address] Care Team Providers Care Hvac Sales Engineer Name Role Phone Violeta Boo MD Primary Care Provide r Encounter Details Date Type Department Care Team (Late Contact Info) Description 08/03/2023 Orders Only [facility] MEDICINE [address] [place] [address] Provider, MD Libra Social History Tobacco Use [...] Office Visit [facility] OPTOMETRY [address] [place] [address] Angella Negrete, OD [address] [place] [address] 02/05/2025 9:15 AM EDT Office Visit [facility] MEDICINE [address] [place] [address] Violeta Boo MD [address] [place] [address] documented as of this encounter Procedures Procedure Name Priority Date/Time Associated Diagnosis Comments HM COLONOSCOPY Routine 06/11/2022 documented in this encounter Results * Hm Colonoscopy (06/11/2022) Historical Provider [facility] Final Result documented in this encounter Visit Diagnoses Not on filedocumented in this encounter Care Teams Hvac Sales Engineer Relationship Specialty Start Date End Date Violeta Boo MD [address] [place] [address] PCP - General Family Medicine 05/21/22 documented as of this encounter
== END 2025-01-17 10:32 | disposition home or self-care (01) ==
LOC: HO.RHE 09:36
PROVIDERS: PCP Internal Medicine; Visit Provider Student in an Organized Health Care Education/Training Program
DX: L40.50 Arthropathic psoriasis, unspecified (principal); M1A.0790 Idiopathic chronic gout, unspecified ankle and foot, without tophus (tophi); M79.7 Fibromyalgia; M85.89 Other specified disorders of bone density and structure, multiple sites; M15.9 Polyosteoarthritis, unspecified; Z79.61 Long term (current) use of immunomodulator
CPT/HCPCS: 99214; G2211

== ENCOUNTER → 2025-01-17 09:35 | Outpatient (BNVA) | payer OTHER, SELFPAY | PROVIDERS: PCP Internal Medicine; Visit Provider Student in an Organized Health Care Education/Training Program | DX: M1A.0790 Idiopathic chronic gout, unspecified ankle and foot, without tophus (tophi) (principal); M79.7 Fibromyalgia; M85.89 Other specified disorders of bone density and structure, multiple sites; E66.01 Morbid (severe) obesity due to excess calories; L40.50 Arthropathic psoriasis, unspecified; M81.0 Age-related osteoporosis without current pathological fracture; Z79.61 Long term (current) use of immunomodulator; M19.011 Primary osteoarthritis, right shoulder; E55.9 Vitamin D deficiency, unspecified | CPT/HCPCS: 99212 ==

== ENCOUNTER 2025-02-01 07:41 | Day surgery (SDC) | payer OTHER, SELFPAY ==
[2025-01-30 11:31] VITALS: BMI 46.8
--- NOTE | 2025-01-31 09:30 | HO.ANESPROP2 ---
Documented by User: Eva Strong NP 01/31/25 10:26 HPI - Anesthesia Eval Consult details Narrative: 74yo F for L2,L3,L4 and L5 Basivertebral Nerve Ablation Intracept RFA Cardiac optimized. Follows [facility] Active Problems Active Problems: All Active Problems CKD (chronic kidney disease), stage III (Acute) Vertebrogenic low back pain (Acute) Psoriatic arthritis (Acute) Latent tuberculosis by blood test (Acute) Spinal stenosis at L4-L5 level (Acute) Bilateral primary osteoarthritis of knee (Acute) Fibromyalgia, primary (Acute) Gout (Acute) Joint pain in fingers of right hand (Acute) De Quervain's tenosynovitis, bilateral (Acute) Rash and nonspecific skin eruption (Acute) Right shoulder tendinitis (Acute) AR positive (Acute) COPD (chronic obstructive pulmonary disease) (Acute) Restrictive lung disease (Acute) Allergic rhinitis (Acute) ZOEY (obstructive sleep apnea) (Acute) Morbid obesity (Acute) Spondylosis of lumbar spine (Acute) Sacroiliac joint pain (Acute) Lumbar radiculopathy (Acute) Tubular adenoma of colon (Acute) Abnormal mammogram of right breast (Acute) Past Medical History Medical History (Updated 02/01/25 @ 08:10 by Ara Nguyen RN) Myocardial infarct Pain in left shoulder Screening for viral disease COPD (chronic obstructive pulmonary disease) Restrictive lung disease Allergic rhinitis ZOEY (obstructive sleep apnea) Edema PVD (peripheral vascular disease) On beta prashant at home Osteopenia Gout Osteoarthritis Rheumatoid arthritis Anemia Panic attacks Anxiety Schizophrenia Pre-diabetes CKD (chronic kidney disease), stage III GERD (gastroesophageal reflux disease) Fatty liver Myocardial infarction CAD (coronary artery disease) Angina pectoris HTN (hypertension) Morbid obesity ZOEY treated with BiPAP COPD (chronic obstructive pulmonary disease) Allergic rhinitis Family History Family History Mother Leukemia Brother Colon cancer Brother Leukemia Sister Breast cancer Sister Vaginal cancer Sister Breast cancer Sister Breast cancer Daughter Thyroid disease Family history of problems with anesthesia: No Surgical History Surgical History History of colonoscopy (~2021) History of lumpectomy of right breast (06/21/22) History of bladder suspension procedure History of esophagogastroduodenoscopy (EGD) Hx of colonoscopy History of hysterectomy History of tubal ligation History of lumpectomy of right breast History of Problems with Anesthesia: No Social History Social History Alcohol intake: never Patient Tobacco Use Status: Never used Tobacco Second Hand Smoke Exposure: No Use of substances other than those prescribed or required for medical reasons: No Are you DNR?: No Advance Directives: No Advance Directives Information Provided: Yes Recently lost weight without trying: No Nutrition Risks: No Nutritional Risk Patient : No Meds Allergies Allergy/AdvReac Type Severity Reaction Status Date / Time peanut [PEANUT] Allergy Severe ITCHY, Verified 01/17/25 09:43 SWELLING seafood Allergy Severe Rash Verified 01/17/25 09:43 tomato [TOMATO] Allergy Severe ITCHY, Verified 01/17/25 09:43 SWELLING aspirin [ASA] Allergy Intermediate ITCHY,ANXIOUS, Verified 01/17/25 09:43 itching, rash Iodinated Contrast Media Allergy Intermediate HIVES Verified 01/17/25 09:43 [IV CONTRAST] plantain [PLANTAIN] Allergy Intermediate ITCHY/SWELL Verified 01/17/25 09:43 ING Home Medications ?Medication ?Instructions ?Recorded ?Confirmed ?Last Taken ?Type atorvastatin 80 mg tablet 80 mg PO DAILY 10/01/20 01/17/25 Unknown History calcium 600 mg (as 1 tab PO BID 10/01/20 01/17/25 Unknown History carbonate)-vitamin D3 10 mcg (400 unit) tablet ferrous sulfate 325 mg (65 mg 325 mg PO QAM 10/01/20 01/17/25 Unknown History iron) tablet fexofenadine 180 mg tablet 180 mg PO QAM 10/01/20 01/17/25 Unknown History inhalational spacing device #1 ea 10/01/20 01/17/25 Unknown History lancets 33 gauge #100 ea 10/01/20 01/17/25 Unknown History latanoprost 0.005 % eye drops 1 drp ophthalmic (eye) BEDTIME 10/01/20 01/17/25 Unknown History metoprolol succinate 50 mg 50 mg PO DAILY 10/01/20 01/17/25 06/11/22 History tablet,extended release 24 hr pantoprazole 40 mg tablet,delayed 40 mg PO DAILY 10/01/20 01/17/25 06/11/22 History release hydrochlorothiazide 12.5 mg tablet 12.5 mg PO QAM 05/13/22 01/17/25 Unknown History losartan 100 mg tablet 100 mg PO QAM 05/13/22 01/17/25 Unknown History sertraline 100 mg tablet 100 mg PO DAILY 06/16/22 01/17/25 Unknown History acetaminophen 500 mg tablet 1,000 mg PO Q8H PRN 09/21/22 01/17/25 Unknown History estradiol 0.01% (0.1 mg/gram) g vaginal 09/21/22 01/17/25 Unknown History vaginal cream olanzapine 10 mg tablet 20 mg PO BEDTIME 09/21/22 01/17/25 Unknown History olanzapine 15 mg tablet 15 mg PO BEDTIME 07/12/23 01/17/25 Unknown History semaglutide 0.25 mg or 0.5 mg (2 0.25 mg subcut QWEEK 07/30/24 01/17/25 01/14/25 History mg/3 mL) subcutaneous pen injector (WooMe) clotrimazole 1 % topical cream appl topical DAILY 10/08/24 01/17/25 Unknown History doxepin 25 mg capsule 25 mg PO BEDTIME 10/08/24 01/17/25 Unknown History ezetimibe 10 mg tablet 10 mg PO QAM 10/08/24 01/17/25 Unknown History melatonin 1 mg tablet 1 mg PO BEDTIME PRN insomnia 10/08/24 01/17/25 Unknown History sertraline 50 mg tablet 50 mg PO QAM 10/08/24 01/17/25 Unknown History Exam Height,Weight and Vital Signs: Height 5 ft 3 in Weight 119.748 kg Pertinent Lab Results Pertinent Lab Results: Laboratory Tests 01/14/25 10:48 WBC 10.1 Hgb 13.6 Hct 42.0 Plt Count 330 Sodium 142 Potassium 4.4 Chloride 103 Carbon Dioxide 29 BUN 25 H Creatinine 1.47 H Narrative Narrative: EKG 2023 NSR @ 63 Low volt QRS Possible inferior infarct Assessment and Plan Assessment Anesthesia Assessment: Chart Reviewed Final Anesthetic Review Family History of Problems with Anesthesia: No History of Problems with Anesthesia: No Documented by User: Rosangela Dale MD 02/01/25 08:52 [facility] Past Medical History Medical History (Updated 02/01/25 @ 08:10 by Ara Nguyen RN) Myocardial infarct Pain in left shoulder Screening for viral disease COPD (chronic obstructive pulmonary disease) Restrictive lung disease Allergic rhinitis ZOEY (obstructive sleep apnea) Edema PVD (peripheral vascular disease) On beta prashant at home Osteopenia Gout Osteoarthritis Rheumatoid arthritis Anemia Panic attacks Anxiety Schizophrenia Pre-diabetes CKD (chronic kidney disease), stage III GERD (gastroesophageal reflux disease) Fatty liver Myocardial infarction CAD (coronary artery disease) Angina pectoris HTN (hypertension) Morbid obesity ZOEY treated with BiPAP COPD (chronic obstructive pulmonary disease) Allergic rhinitis Family History Family History Mother Leukemia Brother Colon cancer Brother Leukemia Sister Breast cancer Sister Vaginal cancer Sister Breast cancer Sister Breast cancer Daughter Thyroid disease Surgical History Surgical History History of colonoscopy (~2021) History of lumpectomy of right breast (06/21/22) History of bladder suspension procedure History of esophagogastroduodenoscopy (EGD) Hx of colonoscopy History of hysterectomy History of tubal ligation History of lumpectomy of right breast Social History Social History Alcohol intake: never Patient Tobacco Use Status: Never used Tobacco Second Hand Smoke Exposure: No Use of substances other than those prescribed or required for medical reasons: No Are you DNR?: No Advance Directives: No Advance Directives Information Provided: Yes Recently lost weight without trying: No Nutrition Risks: No Nutritional Risk Patient : No Meds Allergies Allergy/AdvReac Type Severity Reaction Status Date / Time peanut [PEANUT] Allergy Severe ITCHY, Verified 01/17/25 09:43 SWELLING seafood Allergy Severe Rash Verified 01/17/25 09:43 tomato [TOMATO] Allergy Severe ITCHY, Verified 01/17/25 09:43 SWELLING aspirin [ASA] Allergy Intermediate ITCHY,ANXIOUS, Verified 01/17/25 09:43 itching, rash Iodinated Contrast Media Allergy Intermediate HIVES Verified 01/17/25 09:43 [IV CONTRAST] plantain [PLANTAIN] Allergy Intermediate ITCHY/SWELL Verified 01/17/25 09:43 ING Home Medications ?Medication ?Instructions ?Recorded ?Confirmed ?Last Taken ?Type atorvastatin 80 mg tablet 80 mg PO DAILY 10/01/20 01/17/25 Unknown History calcium 600 mg (as 1 tab PO BID 10/01/20 01/17/25 Unknown History carbonate)-vitamin D3 10 mcg (400 unit) tablet ferrous sulfate 325 mg (65 mg 325 mg PO QAM 10/01/20 01/17/25 Unknown History iron) tablet fexofenadine 180 mg tablet 180 mg PO QAM 10/01/20 01/17/25 Unknown History inhalational spacing device #1 ea 10/01/20 01/17/25 Unknown History lancets 33 gauge #100 ea 10/01/20 01/17/25 Unknown History latanoprost 0.005 % eye drops 1 drp ophthalmic (eye) BEDTIME 10/01/20 01/17/25 Unknown History metoprolol succinate 50 mg 50 mg PO DAILY 10/01/20 01/17/25 06/11/22 History tablet,extended release 24 hr pantoprazole 40 mg tablet,delayed 40 mg PO DAILY 10/01/20 01/17/25 06/11/22 History release hydrochlorothiazide 12.5 mg tablet 12.5 mg PO QAM 05/13/22 01/17/25 Unknown History losartan 100 mg tablet 100 mg PO QAM 05/13/22 01/17/25 Unknown History sertraline 100 mg tablet 100 mg PO DAILY 06/16/22 01/17/25 Unknown History acetaminophen 500 mg tablet 1,000 mg PO Q8H PRN 09/21/22 01/17/25 Unknown History estradiol 0.01% (0.1 mg/gram) g vaginal 09/21/22 01/17/25 Unknown History vaginal cream olanzapine 10 mg tablet 20 mg PO BEDTIME 09/21/22 01/17/25 Unknown History olanzapine 15 mg tablet 15 mg PO BEDTIME 07/12/23 01/17/25 Unknown History semaglutide 0.25 mg or 0.5 mg (2 0.25 mg subcut QWEEK 07/30/24 01/17/25 01/14/25 History mg/3 mL) subcutaneous pen injector (Ozempic) clotrimazole 1 % topical cream appl topical DAILY 10/08/24 01/17/25 Unknown History doxepin 25 mg capsule 25 mg PO BEDTIME 10/08/24 01/17/25 Unknown History ezetimibe 10 mg tablet 10 mg PO QAM 10/08/24 01/17/25 Unknown History melatonin 1 mg tablet 1 mg PO BEDTIME PRN insomnia 10/08/24 01/17/25 Unknown History sertraline 50 mg tablet 50 mg PO QAM 10/08/24 01/17/25 Unknown History Exam Airway Mallampati Class: III (missing couple of teeth, broken upper left tooth sith steel bar in place) TM Dist: >3cm Neck ROM: Full Heart: rrr Lungs: cta Assessment and Plan Assessment Anesthesia Assessment: Anesthesia Plan Discussed Final Anesthetic Review NPO: Yes ASA Class: III Final Preanesthetic Review: No Changes in Pt Med Stat, Meds/Allgs Chart Reviewed and Consent Obtained/Reviewed Patient Risk: Intermediate Procedure Risk: Intermediate Anesthetic Plan Anesthetic Plan: GA Disposition: Standard PACU
[2025-02-01] VITALS (8 sets, daily range): BP systolic 116–146; BP diastolic 57–81; PULSE 72–92; RESP 16–22; TEMP 36.2–36.9; O2SAT 93–98; BMI 46.6
--- NOTE | ~2025-02-01 | FL_ITS ---
EXAMINATION: FL GUIDANCE ONLY HISTORY: L2, L3, L4, L5 nerve ablation COMPARISON: None available. TECHNIQUE: Fluoroscopy time: 2 minutes, 31 seconds. Cumulative Dose: 174.088 mGy. DAP: 4 1.361 mGym2 Images: 21. FINDINGS: AP and lateral fluoroscopic spot films of the lumbar spine demonstrate probes in the L3, L4, and L5 vertebral bodies. FL/FL guidance in OR IMPRESSION: Fluoroscopy during procedure. Please see procedure report for additional information. Electronically signed by: Carlos Eduardo Weathers MD 02/01/2025 11:31 AM EDT
--- NOTE | 2025-02-01 08:07 | P.HPSUR_ITS ---
Pre-Procedural Eval Section A - 24 Hr Update-Section A only Date of Service: 02/01/25 The patient is an INPATIENT: No Changes since office visit: Yes Patient answered all questions The patient has been examined within 24 hours of the surgical procedure. The History & Physical has been completed within 30 days and I have reviewed it.: No Section B - Complete if H&P > 30 days Chief Complaint: Vertebrogenic low back pain Details of Present Illness: as above Relevant Family History (Specify if Yes): No Relevant Social History: None Present Medications: see Short Stay [facility] assessment Medical History: No relevant PMH History of Previous Operations: No relevant previous surgery Allergies: Allergies Allergy/AdvReac Type Severity Reaction Status Date / Time peanut [PEANUT] Allergy Severe ITCHY, Verified 01/17/25 09:43 SWELLING seafood Allergy Severe Rash Verified 01/17/25 09:43 tomato [TOMATO] Allergy Severe ITCHY, Verified 01/17/25 09:43 SWELLING aspirin [ASA] Allergy Intermediate ITCHY,ANXIOUS, Verified 01/17/25 09:43 itching, rash Iodinated Contrast Media Allergy Intermediate HIVES Verified 01/17/25 09:43 [IV CONTRAST] plantain [PLANTAIN] Allergy Intermediate ITCHY/SWELL Verified 01/17/25 09:43 ING Review of Systems Sugical H&P ROS: Negative: Cardiovascular, Neurological, Psychiatric, Hem-Onc, A llergic/Immunologic, Gastrointestinal, Integumentary, Endocrine and Eyes/Ears/Nose/Throat and Yes, Specify: Constitution (morbid obesity), Respiratory (ZOEY), Genitourinary (CKD III) and Musculoskeletal (spinal stenosis, vertebrogenic pain syndrome) Exam Surgical H&P Exam: Normal: HEENT, Normal: Heart, Normal: Lungs, Normal: Extremities, Normal: Skin and Normal: Neurological and Significant Findings: Abdomen (enlarged 2 to i/a and s/q fat) Plan Diagnosis/Plan: Unchanged I have reviewed the history and physical and performed a pertinent physical examination on my patient. No changes have occurred unless specified. Time Spent With Patient Time: Total time managing care of this patient today __5__ minutes.
[2025-02-01 08:43] LABS: Glucose, Whole Blood 121 mg/dL (60-115)
[2025-02-01] MEDS: Lactated Ringers 1,000 ML 100 ML IVCONT (08:43)
[2025-02-01] MEDS: dexAMETHasone sod phosphate 4 MG/ML VIAL IVPUSH (08:44)
[2025-02-01] MEDS: Clindamycin Phosphate/D5W 900 MG/50 ML PIGGYBACK 50 MG IV (09:25)
--- NOTE | 2025-02-01 11:03 | PM.OP ---
Brief Operative Note Date of Service: 02/01/25 Pre-op diagnosis: vertebrogenic pain syndrome Post-op diagnosis: same Procedure: basivertebral nerves L3- L4- L5 radiofraquency ablation Implants: none Surgeon: Jigar Trevino MD Was an Underwriting Manager used for this Procedure?: No Estimated blood loss (mL): 40 Condition: stable Disposition: PACU
--- NOTE | 2025-02-01 11:07 | W.PM.OPN ---
Operative Note Operative Note Date of Service: 02/08/25 Narrative: Basivertebral nerve (BVN) ablation? Intracept Procedure L5, L4 and L3. Informed consent was explained, risks and benefits were explained to the patient as well as alternatives. [facility] freelance interpreter/translator was used to complete informed consent. Risks delineated as risks of bleeding, infection, peripheral nerve damage, spinal cord damage, headache, epidural hematoma and other unspecified complications. Procedure Time Out: Patient ID confirmed, correct procedure to be performed, correct site and/or side for procedure , need for antibiotic administration, need for DVT prophylaxis, risk of fire.? The patient received cefazolin 2 g intravenously 25 minutes before onset of the procedure as well as [id number] mg intravenously push. The entire back was sterilely prepped with ChloraPrep twice and draped with sterile self adhesive utility towels and covered with full body drape.? Two sterilely draped C-arms were positioned in fixed anterior posterior and lateral positions alongside the patient's torso.? Sterilely draped C-arm was moved to visualize the target at the superolateral aspect of the L5 vertebral body. The C-arm was rotated to square off the superior endplate at L5 and rotated right to obtain an oblique view. The superolateral right L5 pedicle was identified, and the skin entry point identified and infiltrated with mixture of 2% lidocaine with ropivacaine 0.5% one to one using a 25- gauge 1-1/2 inch needle. A 22-gauge 5-inch spinal needle was used to anesthetize the track to the pedicle and periosteum and confirm the introducer cannula trajectory. A skin incision was made with 11 blade scalpel 5 mm. The introducer cannula with bevel tip was then introduced through the skin, subcutaneous tissue and paraspinal muscle until bony contact was made. The position was checked in the AP and lateral plane. Using a mallet, the trocar was then advanced through the pedicle to the posterior aspect of the vertebral body using a combination of AP and lateral views to ensure appropriate traversing of the pedicle and no breaching of the pedicle medially or inferiorly. Once the trocar was in the posterior aspect of the L5 vertebral body then introducer cannula with tip bevel reached the vertebral body passing through the left pedicle, the trocar was removed from the cannula and the curved cannula assembly with the nitinol J-stylet was inserted. The spin wheel was rotated counterclockwise permitting excursion of the J-stylet. The curved cannula assembly was then advanced using a mallet in 1-2 mm increments. The J-stylet was observed to traverse the vertebral body in the AP and lateral views. Target was reached when the tip of the stylet was 45 % anterior of the posterior wall of the L5 in the lateral view (midway between the superior and inferior endplates) and it crossed the midline of the L5 spinous process in the AP view. The stylet was then removed. The bipolar radiofrequency (RF) probe was inserted into the introducer cannula in its ablation position. The spin wheel was rotated clockwise to retract the PEEK sleeve to expose the proximal electrode on the radiofrequency probe. The BVN was then ablated using [employer]?s standard RFG algorithm for 7 minutes.? While the ablation was occurring at below level the C-arm was moved to visualize the target at the superolateral aspect of the L4 vertebral body. The C-arm was rotated to square off the superior endplate at L4 . The superolateral ?right L4 pedicle was identified, and the skin entry point identified and infiltrated with mixture of 2% lidocaine with ropivacaine 0.5% one to one using a 25- gauge 1-1/2 inch needle. A 22-gauge 5-inch spinal needle was used to anesthetize the track to the pedicle and periosteum and confirm the introducer cannula trajectory. A skin incision was made with 11 scalpel blade 5 mm. The introducer cannula with bevel tip was then introduced through the skin, subcutaneous tissue and paraspinal muscle until bony contact was made. The position was checked in the AP and lateral plane. Using a mallet, the trocar was then advanced through the pedicle to the posterior aspect of the vertebral body using a combination of AP and lateral views to ensure appropriate traversing of the pedicle and no breaching of the pedicle medially or inferiorly. Once the trocar was in the posterior aspect of the L4 vertebral body, the trocar was removed from the cannula and the curved cannula assembly with the nitinol J-stylet was inserted. The spin wheel was rotated counterclockwise permitting excursion of the J-stylet. The curved cannula assembly was then advanced using a mallet in 1-2 mm increments. The J-stylet was observed to traverse the vertebral body in the AP and lateral views. Target was reached when the tip of the stylet was 48 % anterior of the posterior wall of the L5 in the lateral view (midway between the superior and inferior endplates) and it crossed the midline of the L4 spinous process in the AP view. The stylet was then removed. The bipolar radiofrequency (RF) probe was removed from the previous vertebral body, the tip cleaned and was inserted into the introducer cannula in its ablation position. The spin wheel was rotated clockwise to retract the PEEK sleeve to expose the proximal electrode on the radiofrequency probe. The BVN was then ablated using [employer]?s standard RFG algorithm for 15 minutes. While the ablation was occurring at the below level, C-arm were moved to visualize the target at the superolateral aspect of L3 vertebral body. The C-arm was rotated to sq off superior endplate of L3 vertebral body and rotated right to obtain the oblique view. The superior lateral right L3 pedicle was identified and the skin and try points identified and infiltrated with mixture of 2% lidocaine and ropivacaine 0.5% one-to-one using 25 gauge 1-1/2 inch needle a skin incision was made with 11 blade scalpel 5 mm. The introducer cannula with bevel tip was introduced through the skin subcutaneous tissue and paraspinal muscles until bony contact with the pedicle was made. The position was checked in the AP and lateral plane. Using a mallet and trocar was then advanced through the pedicle to the posterior aspect of the vertebral L3 body under anterior posterior and lateral views with care taken not to breach inferior , medial and posterior castellanos of the pedicle at this level.Once the trocar was in the posterior aspect of the L3 vertebral body, the trocar was removed from the cannula and the curved cannula assembly with the nitinol J-stylet was inserted. The spin wheel was rotated counterclockwise permitting excursion of the J-stylet. The curved cannula assembly was then advanced using a mallet in 1-2 mm increments. The J-stylet was observed to traverse the vertebral body in the AP and lateral views. Target was reached when the tip of the stylet was 35 % anterior of the posterior wall of the L3 in the lateral view (midway between the superior and inferior endplates) and it crossed the midline of the L3 spinous process in the AP view. The stylet was then removed. The bipolar radiofrequency (RF) probe was removed from the previous vertebral body, the tip cleaned and was inserted into the introducer cannula in its ablation position. The spin wheel was rotated clockwise to retract the PEEK sleeve to expose the proximal electrode on the radiofrequency probe. The BVN was then ablated using [employer]?s standard RFG algorithm for 7 minutes. After that all the instruments were removed from the patient's back, the incisions were infiltrated with above-mentioned mixture of lidocaine and ropivacaine, and sterile dressings using 2 by 2s and Tegaderm films were applied to the patient's back.
== END 2025-02-01 13:11 | disposition home or self-care (01) ==
PROVIDERS: PCP Internal Medicine; Visit Provider Anesthesiology
PROC: (CPT 64628; principal; 2025-02-01 09:00)
DX: M54.51 Vertebrogenic low back pain (principal); M54.16 Radiculopathy, lumbar region; M48.061 Spinal stenosis, lumbar region without neurogenic claudication; M81.0 Age-related osteoporosis without current pathological fracture; M06.9 Rheumatoid arthritis, unspecified; M10.9 Gout, unspecified; D64.9 Anemia, unspecified; J44.9 Chronic obstructive pulmonary disease, unspecified; J98.4 Other disorders of lung; G47.33 Obstructive sleep apnea (adult) (pediatric); I25.10 Atherosclerotic heart disease of native coronary artery without angina pectoris; I25.2 Old myocardial infarction; R73.03 Prediabetes; I12.9 Hypertensive chronic kidney disease with stage 1 through stage 4 chronic kidney disease, or unspecified chronic kidney disease; N18.30 Chronic kidney disease, stage 3 unspecified; I73.9 Peripheral vascular disease, unspecified; E66.01 Morbid (severe) obesity due to excess calories; Z68.42 Body mass index [BMI] 45.0-49.9, adult; Z79.51 Long term (current) use of inhaled steroids; Z79.899 Other long term (current) drug therapy; Z99.89 Dependence on other enabling machines and devices; Z88.6 Allergy status to analgesic agent; Z91.041 Radiographic dye allergy status; Z91.010 Allergy to peanuts; Z91.013 Allergy to seafood; Z91.018 Allergy to other foods; Z79.85 Long-term (current) use of injectable non-insulin antidiabetic drugs
CPT/HCPCS: 64628; 64629; 82947; C1889; J0131; J0330; J0736; J1100; J2003; J2250; J2310; J2405; J2704; J2795; J3010

== ENCOUNTER → 2025-02-01 07:41 | Outpatient (BNV) | payer OTHER, SELFPAY | PROVIDERS: PCP Internal Medicine; Visit Provider Anesthesiology | DX: M54.51 Vertebrogenic low back pain (principal) | CPT/HCPCS: 64628; 64629 ==

== ENCOUNTER 2025-02-11 13:58 | Outpatient (AMB) | payer OTHER, SELFPAY ==
[2025-02-11 14:15] VITALS: BP 157/70; PULSE 71
--- NOTE | 2025-02-11 14:15 | A.OFFVIS_ITS ---
Vital Signs 02/11/25 14:15 Height 5 ft 3 in BP 157/70 H Blood Pressure Location Rt brachial Position Sitting Pulse 71 Pulse Source Pulse Oximeter Intake Visit Reasons: S/p L2, L3, L4 and L5 BVN (Intracept) 02/01/25 Intake Note: Pain today 01/21 Insulation Extruder Operator Required: Yes Insulation Extruder Operator Language: Hydrometer Tester Name: daughter Accompanied by: Daughter Allergies peanut [PEANUT] Allergy (Severe, Verified 02/11/25 14:17) ITCHY, SWELLING seafood Allergy (Severe, Verified 02/11/25 14:17) Rash tomato [TOMATO] Allergy (Severe, Verified 02/11/25 14:17) ITCHY, SWELLING aspirin [ASA] Allergy (Intermediate, Verified 02/11/25 14:17) ITCHY,ANXIOUS, itching, rash Iodinated Contrast Media [IV CONTRAST] Allergy (Intermediate, Verified 02/11/25 14:17) HIVES plantain [PLANTAIN] Allergy (Intermediate, Verified 02/11/25 14:17) ITCHY/SWELLING HPI Comments Details: Violeta is back in my office intercept RFA L3-L4 and L5. She reports very good relief after the procedure. She reports increased mobility excellent activities of daily living, easy social interaction. The dressings were removed today and the wounds were worst with ChloraPrep. After that sutures were severed and removed. Sterile dry dressings were applied. Hygiene limitations for next 3 days were explained to the patient. No new appointment for this patient unless she has some other problems. She is doing excellent. If her pain with radiation into right lower extremity will return I will perform L4-5 transforaminal epidural steroid injection on the right because patient also has foraminal stenosis at this level more advanced on the right. In the past she received diagnostic medial branch block on the right side L3- L4 dorsal ramus L5 on 12/14/2022. She reported very minimal pain relief from 9- to 6 for the 4th our after the injection only. She reports pain increase with activities. She had multiple sessions of physical therapy none of which resulted in pain relief. She continues home exercise program at this time with minimal relief. 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 She reports the pain travels across the lower back and radiates into the right leg with associated numbness, tingling, weakness throughout the entire right leg. She has had multiple falls over the past few months due to the pain and weakness. She denies any bowel/bladder dysfunction or saddle anesthesia. She reports pain onset was gradual, constant and rates the pain a 9-10/10. She states the pain is interfering with sleep, activities of daily living and she cannot function normally.? Her pain is exacerbated by any activity. She reports some alleviation with recumbency. She has been taking gabapentin 300 mg TID with little to no effect on pain. She is also on allopurinol for gout. She has also tried voltaren, lidocaine patches, NSAIDS including indomethacin, heat/ice and tylenol with minimal effect. She has attempted physical therapy in the past with minimal alleviation in symptoms. She reports having lumbar injections in the past without effect and believes they were performed at [facility]. She also reports being evaluated by neurosurgery who offered surgery but patient deferred. She last had imaging of the lumbar spine, this report is dictated below. Her past medical history is significant for HTN, OA, PVD, Mood disorder, asthma, CKD [facility] Medical History (Updated 02/01/25 @ 08:10 by Ara Nguyen RN) Myocardial infarct Pain in left shoulder Screening for viral disease COPD (chronic obstructive pulmonary disease) Restrictive lung disease Allergic rhinitis ZOEY (obstructive sleep apnea) Edema PVD (peripheral vascular disease) On beta prashant at home Osteopenia Gout Osteoarthritis Rheumatoid arthritis Anemia Panic attacks Anxiety Schizophrenia Pre-diabetes CKD (chronic kidney disease), stage III GERD (gastroesophageal reflux disease) Fatty liver Myocardial infarction CAD (coronary artery disease) Angina pectoris HTN (hypertension) Morbid obesity ZOEY treated with BiPAP COPD (chronic obstructive pulmonary disease) Allergic rhinitis Surgical History History of colonoscopy (~2021) History of lumpectomy of right breast (06/21/22) History of bladder suspension procedure History of esophagogastroduodenoscopy (EGD) Hx of colonoscopy History of hysterectomy History of tubal ligation History of lumpectomy of right breast Family History Mother Leukemia Brother Colon cancer Brother Leukemia Sister Breast cancer Sister Vaginal cancer Sister Breast cancer Sister Breast cancer Daughter Thyroid disease Social History Alcohol intake: never Patient Tobacco Use Status: Never used Tobacco Second Hand Smoke Exposure: No Female Reproductive History Menstrual Age of Menarche: 13 Review of Systems Const All systems reviewed & are unremarkable except as noted in HPI and below Physical Exam Vital Signs: Last Vital Signs Pulse 71 02/11/25 14:15 BP 157/70 H 02/11/25 14:15 Const General: cooperative, healthy appearing, no acute distress and alert Orientation/consciousness: patient oriented x3 Limitations: no limitations HEENT Head: Yes normal to inspection, Yes normocephalic and Yes atraumatic Ears: hearing grossly normal bilaterally Eyes General: appearance normal, both eyes and all related structures Neck Neck: Yes normal visual inspection, Yes supple and Yes no JVD Resp Effort & Inspection: normal respiratory effort, able to speak in complete sentences and no audible wheezes Cardio Jugular venous distension: no JVD Peripheral pulses: Peripheral pulses 2+ throughout (no appreciable rhythmic abnormalities) Back/Spine/Pelvis Other: Patient unable to walk on heels and tip toes due to pain and weakness. Can flex forward to 30 degrees and extend to 5 degrees before experiencing lumbar pain. Demonstrates 3-4/5 strength of quadriceps bilaterally as well as flexion/dorsiflexion of bilateral feet against resistance. Diminshed DTR diminsihed and symmetrical. Straight leg rise with dorsiflexion negative bilaterally. Norberto test and Pelvic compression test + bilaterally. Facet loading test + bilaterally. Unable to perform Stinchfield test due to pain. Significant TTP throughout lumbar spine and SIJ bilaterally. Thoracic/Lumbar Spine: thoracic and lumbar spine normal to inspection, No Thoracic/lumbar spine scar(s), pain with thoraco-lumbar ROM, paraspinal muscle tenderness, thoraco-lumbar ROM limited, thoracic spinal tenderness and lumbar spinal tenderness Sacroiliac joints: bilaterally tender to palpation Neuro General: patient oriented x3, No gait normal and moves all extremities Assessment & Plan Assessment & Plan (1) Lumbar radiculopathy: Code(s): M54.16 - Radiculopathy, lumbar region Category: Medical (2) Spinal stenosis at L4-L5 level: Code(s): M48.061 - Spinal stenosis, lumbar region without neurogenic claudication Category: Medical (3) Vertebrogenic low back pain: Code(s): M54.51 - Vertebrogenic low back pain Category: Medical Plan Excellent results of BVN intercept L3, L4, L5. Excellent mobility good activities of daily living good social interactions. The patient also has foraminal stenosis more pronounced on the right. If she will return with complains on pain radiating down to the right lower extremity I will perform transforaminal L4-5 epidural steroid injection. Patient Instructions: I here by testify that I spent 30 minutes in conversation with this patient as well as planning her care and organizing this note. Coding Level of Care Code Est Pt Level 4 (11224) Diagnoses Lumbar radiculopathy M54.16 Spinal stenosis at L4-L5 level M48.061 Vertebrogenic low back pain M54.51
--- OUTSIDE RECORDS SUMMARY | 2025-02-11 15:44 | XMS_ITS | Encounter Summary ---
Author Organization [facility], Address [address] [place] [address] Phone Care Team Providers Care Rotary Pump Operator Name Role Phone Violeta Boo MD Primary Care Provide r Encounter Details Date Type Department Care Team (Late st Contact Info) Description 03/15/2022 Documentation Only [facility] [address] [place] [address] Shailesh Vallejo MD [address] [place] [address] [place] [address] Social History Tobacco Use Types [...] Visit [facility] [address] [place] [address] Shailesh Vallejo MD [address] [place] [address] [place] [address] documented as of this encounter Visit Diagnoses Not on filedocumented in this encounter Care Teams Rotary Pump Operator Relationship Specialty Start Date End Date Violeta Boo MD [address] [place] [address] [phone] PCP - General Internal Medicine 03/21/23 documented as of this encounter
--- OUTSIDE RECORDS SUMMARY | 2025-02-11 15:44 | XMS_ITS | Clinical Summary ---
Author Organization [employer] Address [address] [place] [address] 7t [place] [address] Care Team Providers Care Risk And Compliance Analytics Director Name Role Phone Violeta Boo MD [...] mouth 1 (one) time each day. 03/10/20 22 Active meclizine (Antivert) 25 MG tablet Take [...] other day. Active Blood Glucose Monitoring Suppl ([employer] Verio Flex System) w/Device kit USE DIRECTED [...] Active gabapentin (Neurontin) 300 MG capsuleIndicati ons:Pain Take 1 capsule by mouth twice daily in the morning and in the evening 60 capsule 1 12/14/19 25 Active Ozempic, 0.25 or 0.5 MG/DOSE, 2 MG/3ML solution pen-injector INJECT 0.5 MG SUBCUTANEOUSLY EVERY 7 DAYS IN THE ABDOMEN, THIGHS, OR UPPER ARM, ROTATE INJECTION SITES. 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 Otitis externa 12/16/2022 Assessment & Plan (12/16/2022 [...] exercise, life style modifications, diet, referral to order management specialist. Discussed re lower calorie intake, increase dietary fiber Pt agreed to be referred to dietitian. 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 She stated that she is requesting a first floor, or elevator accessible apartment. She also needs a walk-in tub, grab bars in the bathroom, a hand-held shower head, and a safety rails for the toilet. She stated that she does not want the form faxed to [facility]. She will pick it up, once it has been approved by the provider.) 01/29/2025 Telephone [facility] [address] [facility] [place] [address] Violeta Boo MD Housing Form (The patient left a message, stating that she was returning a call regarding a housing form. I returned her call, and reached her voicemail. I left a message, asking her to return my call at ext [phone]. A reasonable accommodation form was received on 12/19/24 from [facility], but it does not state what accommodation the patient is requesting.) 01/28/2025 Patient Outreach [facility] [address] [place] [phone] Violeta Boo MD Pre-visit Planning ((Unable to reach for PVP screening, LVM)) 01/23/2025 Telephone [facility] OPTOMETRY [address] [place] [phone] Angella Negrete, OD 01/23/2025 Telephone [facility] OPTOM[facility]RY [address] [place] [phone] Angella Negrete, OD 01/14/2025 Orders Only GENERIC EXTERNAL DATA DEPARTMENT Provider, Generic External Data 01/11/2025 Telephone [facility] [address] [place] [phone] Violeta Boo MD FYI ; Housing Form (I called the patient regarding a reasonable accommodation request, from [facility] [employer] [facility]. The form lists the patient's medical conditions, but it does not state what the accommodation is. I reached her voicemail, and left a message asking her to return my call at ext [phone].) 01/04/2025 Refill [facility] [address] [facility] [place] [address] Violeta Boo MD 01/01/2025 Telephone [facility] [address] [place] [phone] Violeta Boo MD [facility] request 12/27/2024 Telephone [facility] [address] [place] [phone] Violeta Boo MD Appointment Request 12/26/2024 Telephone [facility] [address] [place] [phone] Violeta Boo MD Reasonable Accommodation (I called the patient regarding a reasonable accommodation request, from [facility] [employer]. The form lists the patient's medical conditions, but it does not state what the accommodation is. There was no answer, and I reached a recording stating that the person's voicemail is not not set up. I then called her furnace caretaker, Nikita, and she stated that she is not sure of what the patient is requesting. She agreed to ask the patient to return my call at ext [phone].) 12/24/2024 Telephone [facility] [address] [place] [phone] Violeta Boo MD call back required 12/20/2024 Telephone [facility] [address] [place] [phone] Violeta Boo MD [facility] walker needed. 12/20/2024 Telephone [facility] [address] [place] [phone] Violeta Boo MD 12/18/[address] [address] [place] Appointment Request 12/18/[address] [address] Violeta Boo MD Durable Medical Equipment 12/14/2024 Refill [facility] [address] [place] [address] Violeta Boo MD Pain 12/14/2024 Telephone [facility] [address] [place] [phone] Violeta Boo MD New Med Request 12/07/2024 Telephone [facility] [address] [place] [phone] Violeta Boo MD Referral 11/30/2024 Telephone [facility] [address] [place] [address] [place] dme wheel chair 11/23/2024 Telephone [facility] [address] [place] [address] Violeta Boo MD Referral 11/20/2024 Telephone [facility] [address] [place] [address] Violeta Boo MD Durable Medical Equipment from [...] Care Team (Late st Contact Info) Description 03/26/2025 10:00 AM EDT Office Visit [facility] [address] [place] [address] Violeta Boo MD [address] [place] [address] 06/07/2025 9:30 AM EDT Office Visit [facility] OPTOMETRY [address] [place] [address] Angella Negrete, OD [address] [place] [address] Health Maintenance Due Date Last Done Comments [...] Procedure Name Priority Date/Time Associated Diagnosis Comments FL GUIDANCE IN OR Routine 02/01/2025 9:1 0 AM EDT GLUCOSE, WHOLE BLOOD Routine 02/01/2025 8:33 AM EDT C-REACTIVE PROTEIN Routine 01/14/2025 10 :48 AM [...] Recently Relevant to Health Maintenance Results * FL Guidance in OR (02/01/2025 9:10 AM EDT) Anatomical Region Laterality Modality X-Ray Angiograph y 02/01/2025 9:10 AM EDT Narrative 02/01/2025 11:33 AM EDT ? [facility] ?[address] ?[place] [address] ? Fluoroscopy Report ? Signed ? Patient: Violeta Alvarenga V ?MR#: MM ?? [id number] ? : 1950 ?Acct:[id number] ? Age/Sex: 74 / F ?ADM Date: 02/01/25 ? Loc: HO.SSS ? Attending Dr: Jigar Trevino MD ? Ordering Physician: Jigar Trevion MD ?? Date of Service: 02/01/25 ?? Procedure(s): FL guidance in OR ?? Accession Number(s): [id number] ? cc: Violeta Boo MD; Jigar Trevino MD ? EXAMINATION: ??FL GUIDANCE ONLY ? HISTORY: L2, L3, L4, L5 nerve ablation ? COMPARISON: ?? None available. ? TECHNIQUE: ?? Fluoroscopy time: 2 minutes, 31 seconds. ?? Cumulative Dose: 174.088 mGy. ?? DAP: 4 1.361 mGym2 ?? Images: 21. ? FINDINGS: ?? AP and lateral fluoroscopic spot films of the lumbar spine demonstrate ?? probes in the L3, L4, and L5 vertebral bodies. ? FL/FL guidance in OR ?? IMPRESSION: ?? Fluoroscopy during procedure. Please see procedure report for ?? additional information. ? Electronically signed by: ??Carlos Eduardo Weathers MD ??02/01/2025 11:31 AM EDT ?? RP ? Dictated By: ?Carlos Eduardo Weathers MD ? Signed By: ?<Electronically signed by Carlos Eduardo Weathers MD in OV> ?02/01/251130 ? DD/ 0910 ? TD/TT: 02/01/25 1100 ? Armhole Feller Handstitching Machine: ? Procedure Note Donotrambointerpreter, Image - 02/01/[address] [address] Fluoroscopy Report Signed Patient: Violeta Alvarenga VMR#: [id number] : 2Acct:[id number] Age/Sex: 74 / FADM Date: 02/01/25 Loc: HO.[facility] Attending Dr: Jigar Trevino MD Ordering Physician: Jigar Trevino MD Date of Service: 02/01/25 Procedure(s): FL guidance in OR Accession Number(s): [id number] cc: Violeta Boo MD; Jigar Trevino MD EXAMINATION: FL GUIDANCE ONLY HISTORY: L2, L3, L4, L5 nerve ablation COMPARISON: None available. TECHNIQUE: Fluoroscopy time: 2 minutes, 31 seconds. Cumulative Dose: 174.088 mGy. DAP: 4 1.361 mGym2 Images: 21. FINDINGS: AP and lateral fluoroscopic spot films of the lumbar spine demonstrate probes in the L3, L4, and L5 vertebral bodies. FL/FL guidance in OR IMPRESSION: Fluoroscopy during procedure. Please see procedure report for additional information. Electronically signed by: Carlos Eduardo Weathers MD 02/01/2025 11:31 AM EDT Dictated By: Carlos Eduardo Weathers MD Signed By: <Electronically signed by Carlos Eduardo Weathers MD in OV> 02/01/25 1131 DD/ 0910 TD/TT: 02/01/25 1100 Armhole [employer]eller Handstitching Machine: [facility] External Provider IMG IR PROCEDURES Final Result * (ABNORMAL) Glucose, Whole Blood (02/01/2025 8:33 AM EDT) Glucose, Whole Blood 121(H) 60 - 115 mg/dL [facility] Comment:METER #: [id number] 02/01/2025 8:33 AM EDT 02/01/2025 8:43 AM EDT Generic External Data Provider LAB BLOOD ORDERAB LES Final Result [facility] [address] [place] [phone] * CBC auto differential (01/14/2025 10:48 AM EST) Pathologist [facility] White Blood Count 10.1 4.8 - 10.8 X10*3/uL [facility] Red Blood Count 4.46 4.20 - 5.50 X10*6/uL [facility] Hemoglobin 13.6 12.0 - 16.0 g/dl [facility] Hematocrit 42.0 37.0 - 47.0 % [facility] Mean Corpuscular Volume 94.2 80.0 - 98.0 fL [facility] Mean Corpuscular Hemoglobin 30.5 27.0 - 33.0 pg [facility] Mean Corpuscular HGB Conc 32.4 31.0 - 35.0 g/dl [facility] Red Cell Distribution Width 14.6 11.0 - 16.0 % [facility] Platelet Count 330 160 - 400 X10*3/uL [facility] Mean Platelet Volume 10.8 9.4 - 12.3 fL [facility] Neutrophils Percent Auto 64.5 45 - 73 % [facility] Imm Gran Pct Auto 0.3 0.0 - 0.4 % [facility] Lymphocytes Percent Auto 24.8 20 - 40 % [facility] Monocytes Percent Auto 7.9 2 - 11 % [facility] Eosinophils Percent Auto 1.9 0 - 4 % [facility] Basophils Percent Auto 0.6 0 - 2 % [facility] NRBC Pct Auto 0.0 0.0 - 0.2 /100WBC [facility] Neutrophils Absolute Auto 6.5 2.0 - 8.3 x10*3/uL [facility] Imm Gran Abs Auto 0.03 0.00 - 0.03 X10*3/uL [facility] Lymphocytes Absolute Auto 2.5 1.2 - 4.9 X10*3/uL [facility] Monocytes Absolute Auto 0.8 0.1 - 1.2 X10*3/uL [facility] Eosinophils Absolute Auto 0.2 0.0 - 0.4 X10*3/uL [facility] Basophils Absolute Auto 0.1 0.0 - 0.2 X10*3/uL [facility] NRBC Abs Auto 0.000 0.0 - 0.012 X10*3/uL [facility] 01/14/2025 10:4 8 AM EST 01/14/2025 10:48 AM EST us Generic External Data Provider LAB BLOOD ORDERAB LES Final Result Performing Organization Address [facility]/[employer] de Phone Number [facility] [address] [place] [phone] * (ABNORMAL) Sed Rate by Modified Latosharen (01/14/2025 10:48 AM EST) Erythrocyte Sedimentation Rate 36(H) 0 - 20 MM/HR [facility] Comment:Patients with polycy themia and many hemoglobin abnormalitiesmay have depressed sed rates whereas patients with anemiamay have elevated sed rates. 01/14/2025 10:4 8 AM EST 01/14/2025 10:48 AM EST us Generic External Data Provider LAB BLOOD ORDERAB LES Final Result Performing Organization Address [facility]/ZIP Co de Phone Number [facility] [address] [place] [phone] * C-reactive Protein (01/14/2025 10:48 AM EST) Pathologist [facility] C Reactive Protein 0.37 < or = 0.50 mg/dL [facility] 01/14/2025 10:4 8 AM EST 01/14/2025 10:48 AM EST Generic External Data Provider LAB BLOOD ORDERAB LES Final Result Performing Organization Address City/[facility]/ZIP Co de Phone Number [facility] [address] [place] [phone] * Uric acid (01/14/2025 10:48 AM EST) Pathologist [facility] Uric Acid 5.0 2.4 - 5.7 mg/dL [facility] 01/14/2025 10:4 8 AM EST 01/14/2025 10:48 AM EST Generic External Data Provider LAB BLOOD ORDERAB LES Final Result Performing Organization Address [facility]/ZIP Co de Phone Number [facility] [address] [place] [phone] * (ABNORMAL) Comprehensive Metabolic Panel (01/14/2025 10:48 AM EST) Pathologist [facility] Sodium 142 135 - 145 mmol/L [facility] Potassium 4.4 3.3 - 5.1 mmol/L [facility] Chloride 103 96 - 108 mmol/L [facility] Carbon Dioxide 29 22 - 29 mmol/L [facility] Anion Gap 14 12 - 20 [facility] Urea Nitrogen (BUN) 25(H) 9 - 16 mg/dL [facility] Creatinine, Serum 1.47(H) 0.5 - 1.4 mg/dL [facility] Estimated Glomerular Filt Rate 35 [facility] Comment:Chronic Kidney Disea se: Estimated GFR < 60 mL/min/1.45t6[place] Kidney Disease: Estimated GFR < 15 mL/min/1.73m2 Glucose 100 60 - 115 mg/dL [facility] Calcium 9.7 8.4 - 10.2 mg/dL [facility] Bilirubin, Total 0.4 0.0 - 1.0 mg/dL [facility] Aspartate Amino Transferase 23 5 - 31 U/L [facility] Alanine Aminotransferase 19 0 - 31 U/L [facility] Total Protein 7.2 6.5 - 8.0 g/dL [facility] Albumin Level 3.8 3.5 - 5.0 g/dL [facility] Alkaline Phosphatase 138(H) 39 - 117 U/L [facility] 01/14/2025 10:4 8 AM EST 01/14/2025 10:48 AM EST us Generic External Data Provider LAB BLOOD ORDERAB LES Final Result Performing Organization Address City/State/[facility] Co de Phone Number [facility] [address] [place] [phone] [phone] * BI Mammogram Screening Tomosynthesis Bilateral (08/30/2024 9:10 AM EDT) Anatomical Region Laterality Modality Breast Bilateral Mammography 08/30/2024 9:10 AM EDT Narrative 09/11/2024 12:30 PM EDT ? [facility] ? [address] ?[place] [address] ? Mammography Report ? Signed with Addenda ? Patient: Karl Monterroso,Nasreen ?MR#: MM ?? [id number] ? : 1950 ?Acct:[id number] ? Age/Sex: 74 / F ?ADM Date: 10/17/24 ? Loc: HO.MAMMO ? Attending Dr: Violeta Pascual MD ? Ordering Physician: Violeta Boo MD ?Results: ?? 2Benign Findings ? Date of Service: 08/30/24 ?Follow Up: 1 Year From Orig ?? inal Mammogram ? Procedure(s): MM tomosynthesis screening BI ?? Accession Number(s): [id number] ? cc: Violeta Boo MD ?ADDENDUM ? [...] by Radhika Douglas, DO in OV> ? 09/14/246 ?? Addendum Cosigned By: ? DD/ ? [...] in OV> ? 09/11/24 1227 ? DD/ ? TD/TT: 08/30/2425 ? Armhole Feller Handstitching Machine: ? Procedure Note Jaqueline, Image - 09/14/2024 [facility] [address] [place] [address] Mammography Report Signed with Cynthia Patient: Violeta Alvarenga VMR#: [id number] : 2Acct:[id number] Age/Sex: 74 / FADM Date: 08/30/24 Loc: HO.MAMMO Attending Dr: Violeta Pascual MD Ordering Physician: Violeta Boo MDResults: 2Benign Findings Date of Service: 08/30/24Follow Up: 1 Year From Orig inal Mammogram Procedure(s): MM tomosynthesis screening BI Accession Number(s): [id number] cc: Violeta Boo MD ADDENDUM ADDENDUM #1 [...] OV> 09/11/24 1227 DD/ 9 TD/TT: 08/30/24924 Arm[employer] Feller Handstitching Machine: Violeta Pascual MD IMG BI PROCEDURES Shemar [...] Madi WADE et al. JUAN LUIS. 2013;310(19): 6295-5179 ?? (http://education.The Roundtable/faq/IGE601) Non-HDL Cholesterol 124 <130 mg/dL (calc) [facility] Comment: For patients with diabetes plus 1 major ASCVD risk ?? factor, treating to a non-HDL-C goal of <100 mg/dL ?? (LDL-C of <70 mg/dL) is considered a therapeutic ?? option. Triglycerides 190(H) <150 mg/dL [facility] 03/15/2022 9:22 AM EDT Leonard Perez MD LAB BLOOD ORDERABL ES Final Result [facility] [address] * HEPATITIS C ANTIBODY RFLX (01/02/2020 10:23 AM EST) HEPATITIS C ANTIBODY NONREACTIVE NONREACTIVE [facility] Comment: Antibodies to HCV not detected; does not exclude early acute HCV infection. 01/02/2020 10:2 3 AM EST us Historical Provider HISTORICAL/NON ORDERABLE LABS Final Result [facility] [address] from Last 3 Months or Most Recently Relevant to Health Maintenance Insurance [facility] DUAL COMPLETE Care Teams Risk And Compliance Analytics Director Relationship Specialty Start Date End Date Violeta Boo MD [address] [place] [address] PCP - General Family Medicine 05/21/22
--- OUTSIDE RECORDS SUMMARY | 2025-02-11 15:44 | XMS_ITS | Encounter Summary ---
Author Organization [employer] Address [address] [place] [address] [address] [place] [address] Care Team Providers Care Pelt Grader Name Role Phone Violeta Boo MD Primary Care Provide r Reason for Visit * Reason Comments Med Refill Encounter Details Date Type Department Care Team (Late Contact Info) Description 02/13/2023 Refill [facility] [address] [place], [place] [phone] Cassy Starks MD [address] [place], [place] [phone] Social History Tobacco Use Types Packs/Day Years [...] Department Care Team (Late Contact Info) Description 03/26/2025 10:00 AM EDT Office Visit [facility] [address] [place], [place] [phone] Violeta Boo MD [address] [place], [place] [phone] 06/07/2025 9:30 AM EDT Office Visit [facility] OPTOMETRY [address] [place] [address] Angella Negrete, OD [address] [place] [address] documented as of this encounter Visit Diagnoses Not on filedocumented in this encounter Care Teams Pelt Grader Relationship Specialty Start Date End Date Violeta Boo MD [address] [place] [address] PCP - General Family Medicine 05/21/22 documented as of this encounter
--- OUTSIDE RECORDS SUMMARY | 2025-02-11 15:45 | XMS_ITS | Encounter Summary ---
Author Organization [employer] Address [address] [facility] [address]t [place] [address] Care Team Providers Care Sales Account Executive Name Role Phone Violeta Boo MD Primary Care Provide r Reason for Visit * Reason Comments Med Refill Encounter Details Date Type Department Care Team ([facility] st Contact Info) Description 03/22/2024 Refill [facility] [address] [place] [address] Violeta Boo MD [address] [place] [address] Dermatitis Social History Tobacco Use Types Packs/Day [...] Description 03/26/2025 10:00 AM EDT Office Visit [facility] [address] [place] [address] Violeta Boo MD [address] [place] [address] 06/07/2025 9:30 AM EDT Office Visit [facility] OPTOMETRY [address] [place] [address] Caden, Angella, OD [address] [place] [address] documented as of this encounter Visit Diagnoses Diagnosis Dermatitis Contact dermatitis and other eczema, due to unspecified cause documented in this encounter Care Teams Sales Account Executive Relationship Specialty Start Date End Date Violeta Boo MD [address] [place] [address] PCP - General Family Medicine 05/21/22 documented as of this encounter
--- OUTSIDE RECORDS SUMMARY | 2025-02-11 15:45 | XMS_ITS | Encounter Summary ---
Author Organization [employer] Address [address] [facility] 7t [place] [address] Care Team Providers Care Manager Photo Name Role Phone Violeta Boo MD Primary Care Provide r Encounter Details Date Type Department Care Team (Late st Contact Info) Description 07/20/2024 Telephone [facility] OPTOMETRY [address] [place] [address] Angella Negrete, OD [address] [place] [address] Social History Tobacco Use Types Packs/Day Years [...] 07/20/2024 3:24 PM EDT Called the Patient RECORD PRESS SUPERVISOR Nikita Sneed, to inform her at the [...] Description 03/26/2025 10:00 AM EDT Office Visit [facility] [address] [place] [address] Violeta Boo MD [address] [place] [address] 06/07/2025 9:30 AM EDT Office Visit [facility] OPTOMETRY [address] [place] [address] Angella Negrete, OD [address] [place] [address] documented as of this encounter Visit Diagnoses Not on filedocumented in this encounter Care Teams Manager Photo Relationship Specialty Start Date End Date Violeta Boo MD [address] [place] [address] PCP - General Family Medicine 05/21/22 documented as of this encounter
--- OUTSIDE RECORDS SUMMARY | 2025-02-11 15:45 | XMS_ITS | Encounter Summary ---
Author Organization [employer] Address 75 [facility] 7t [place] [address] Care Team Providers Care Manager Baby Name Role Phone Violeta Boo MD Primary Care Provide r Encounter Details Date Type Department Care Team (Late Contact Info) Description 08/17/2023 Abstract [facility] MEDICINE [address] [place] [address] [phone] Violeta Boo MD [address] [place] [address] [phone] Social History Tobacco Use Types Packs/Day Years [...] Description 03/26/2025 10:00 AM EDT Office Visit [facility] MEDICINE 230 [place], [place] [phone] Violeta Boo MD [address] [place] [address] [phone] 06/07/2025 9:30 AM EDT Office Visit [facility] OPT[facility]ETRY [address] [place], [place] [phone] Angella Negrete, OD 230 [place] [address] documented as of this encounter Visit Diagnoses Not on filedocumented in this encounter Care Teams Manager Baby Relationship Specialty Start Date End Date Violeta Boo MD 230 [place], [place] [phone] PCP - General Family Medicine 05/21/22 documented as of this encounter
--- OUTSIDE RECORDS SUMMARY | 2025-02-11 15:45 | XMS_ITS | Encounter Summary ---
Author Organization [employer] Address [address] [place] [address] 7t [place] [address] Care Team Providers Care Medical Records Supervisor Name Role Phone Violeta Boo MD Primary Care Provide r Reason for Visit * Reason Onset Date Comments Appointment Request 02/17/2023 Encounter Details Date Type Department Care Team ([facility] Contact Info) Description 02/17/2023 Telephone [facility] MEDICINE 230 [place] [address] Violeta Boo MD 230 [place], [place] [phone] Appointment Request Social History Tobacco Use Types [...] message previously sent. Please contact pt at [phone] Israeli Speaker * Telephone Encounter - Shay Navarro - 02/17/2023 1:16 PM EDT Tc from pt requesting to r/s appt for Follow up on 02/17/2023. Please contact pt at [phone] Israeli Speaker documented in this encounter Plan of Treatment Upcoming Encounters Date Type Department Care Team (Late st Contact Info) Description 03/26/2025 10:00 AM EDT Office Visit [facility]INE 230 [place] [address] Violeta Boo MD 230 [place] [address] 06/07/2025 9:30 AM EDT Office Visit [facility] OPTOMETRY [address] [place] [address] Caden, Angella, OD 230 [place] [address] documented as of this encounter Visit Diagnoses Not on filedocumented in this encounter Care Teams Medical Records Supervisor Relationship Specialty Start Date End Date Violeta Boo MD 230 [place] [address] PCP - General Family Medicine 05/21/22 documented as of this encounter
--- OUTSIDE RECORDS SUMMARY | 2025-02-11 15:45 | XMS_ITS | Encounter Summary ---
Author Organization [employer] Address [address] [place] [address] 7t [place] [address] Care Team Providers Care Sustainability Engineer Name Role Phone Violeta Boo MD Primary Care Provide r Encounter Details Date Type Department Care Team ([facility] Contact Info) Description 03/22/2023 Orders Only [facility] CHC MED & PEDS [address] [place] [address] Brittany Epps LPN Social History Tobacco Use [...] Upcoming Encounters Date Type Department Care Team ([facility] Contact Info) Description 03/26/2025 10:00 AM EDT Office Visit [facility] MEDICINE 230 [place] [address] Violeta Boo MD 230 [place], [place] [phone] 06/07/2025 9:30 AM EDT Office Visit [facility] OPTOMETRY [address] [place], [place] [phone] Angella Negrete, OD 230 [place], [place] [phone] documented as of this encounter Visit Diagnoses Not on filedocumented in this encounter Care Teams Sustainability Engineer Relationship Specialty Start Date End Date Violeta Boo MD 230 [place], [place] [phone] PCP - General Family Medicine 05/21/22 documented as of this encounter
--- OUTSIDE RECORDS SUMMARY | 2025-02-11 15:45 | XMS_ITS | Encounter Summary ---
Author Organization [employer] Address 75 [facility] 7t [place] [address] Care Team Providers Care Asbestos Removal Supervisor Name Role Phone Violeta Boo MD Primary Care Provide r Reason for Visit * Reason Onset Date Comments Appt cancelation 03/02/2024 Encounter Details Date Type Department Care Team ([facility] st Contact Info) Description 03/02/2024 Telephone [facility] MEDICINE 230 [place] [address] Violeta Boo MD [address] [place], [place] [phone] Appt cancelation Social History Tobacco Use Types [...] 04/27 due to being referred to outside quality specialist documented in this encounter Plan of Treatment Upcoming Encounters Date Type Department Care Team (Late st Contact Info) Description 03/26/2025 10:00 AM EDT Office Visit [facility] MEDICINE [address] [place] [address] Violeta Boo MD 230 [place] [address] 06/07/2025 9:30 AM EDT Office Visit [facility] OPTOMETRY [address] [place] [address] Caden, Angella, OD 230 [place] [address] documented as of this encounter Visit Diagnoses Not on filedocumented in this encounter Care Teams Asbestos Removal Supervisor Relationship Specialty Start Date End Date Violeta Boo MD 230 [place] [address] PCP - General Family Medicine 05/21/22 documented as of this encounter
--- OUTSIDE RECORDS SUMMARY | 2025-02-11 15:45 | XMS_ITS | Encounter Summary ---
Author Organization [facility] Address [address] [place] [address] Phone Care Team Providers Care Taping Machine Operator Name Role Phone Violeta Boo MD Primary Care Provide r Encounter Details Date Type Department Care Team (Late st Contact Info) Description 03/22/2023 Documentation Only [facility] [address] [place] [phone] Jazmin Powell PA Social History Tobacco Use [...] [facility] [address] [place] [phone] Shailesh Vallejo MD [address] [place] [address] [place] [phone] documented as of this encounter Visit Diagnoses Not on filedocumented in this encounter Care Teams Taping Machine Operator Relationship Specialty Start Date End Date Violeta Boo MD [address] [place] [phone] PCP - General Internal Medicine 03/21/23 documented as of this encounter
--- OUTSIDE RECORDS SUMMARY | 2025-02-11 15:45 | XMS_ITS | Encounter Summary ---
Author Organization [email or web address] Address 75 [facility] 7t [place] [address] Care Team Providers Care Psychologist Social Name Role Phone Violeta Boo MD Primary Care Provide r Reason for Visit * Reason Comments Med Refill Encounter Details Date Type Department Care Team ([facility] st Contact Info) Description 11/02/2024 Refill [facility] MEDICINE 230 [place] [address] Violeta Boo MD 230 [place] [address] Pain Social History Tobacco Use Types Packs/Day [...] Description 03/26/2025 10:00 AM EDT Office Visit [facility] MEDICINE 230 [place] [address] Violeta Boo MD 230 [place] [address] 06/07/2025 9:30 AM EDT Office Visit [facility] OPTOMETRY [address] [place] [address] Caden, Angella, OD 230 [place] [address] documented as of this encounter Visit Diagnoses Diagnosis Pain Generalized pain documented in this encounter Additional Health Concerns Assessment Noted Time PHQ-9 Depression Total Score: 17 024 11:23 AM EDT documented as of this encounter Care Teams Psychologist Social Relationship Specialty Start Date End Date Violeta Boo MD [address] [place] [address] PCP - General Family Medicine 05/21/22 documented as of this encounter
--- OUTSIDE RECORDS SUMMARY | 2025-02-11 15:45 | XMS_ITS | Encounter Summary ---
Author Organization [facility] Address [address] [place] [address] Phone Care Team Providers Care Lining Sewer Name Role Phone Violeta Boo MD Primary Care Provide r Encounter Details Date Type Department Care Team (Late st Contact Info) Description 10/22/2022 Documentation Only [facility] [address] [place] [phone] Jazmin Powell PA Social History Tobacco Use [...] Visit [facility] [address] [place] [address] Shailesh Vallejo MD [address] [place] [address] [place] [phone] documented as of this encounter Visit Diagnoses Not on filedocumented in this encounter Care Teams Lining Sewer Relationship Specialty Start Date End Date Violeta Boo MD [address] [place] [phone] PCP - General Internal Medicine 03/21/23 documented as of this encounter
--- OUTSIDE RECORDS SUMMARY | 2025-02-11 15:45 | XMS_ITS | Encounter Summary ---
Author Organization [employer] Address 75 [facility] 7 [place] [address] Care Team Providers Care Records And Information Manager Name Role Phone Violeta Boo MD Primary Care Provide r Reason for Visit * Reason Onset Date Comments Med Refill 10/25/2024 Encounter Details Date Type Department Care Team ([facility] st Contact Info) Description 10/25/2024 Telephone [facility] MEDICINE 230 [place] [address] Violeta Boo MD 230 [place], [place] [phone] Med Refill Social History Tobacco Use Types [...] Office Visit [facility] MEDICINE 230 [place], [place] [phone] Violeta Boo MD 230 [place], [place] [phone] 06/07/2025 9:30 AM EDT Office Visit [facility] OPTOMETRY [address] [place], [place] 1975740 Angella Negrete, OD 230 [place] [address] documented as of this encounter Visit Diagnoses Not on filedocumented in this encounter Additional Health Concerns Assessment Noted Time PHQ-9 Depression Total Score: 17 024 11:23 AM EDT documented as of this encounter Care Teams Records And Information Manager Relationship Specialty Start Date End Date Violeta Boo MD 230 [place] [address] PCP - General Family Medicine 05/21/22 documented as of this encounter
--- OUTSIDE RECORDS SUMMARY | 2025-02-11 15:45 | XMS_ITS | Encounter Summary ---
Author Organization [facility] [place], Address [address] [place] [address] Phone Care Team Providers Care Plc Engineer Name Role Phone Violeta Boo MD Primary Care Provide r Encounter Details Date Type Department Care Team (Late st Contact Info) Description 02/13/2024 Documentation Only [facility] [address] [place] [phone] Rowena Knowles [address] [place] [address] Social History Tobacco Use Types [...] [facility] [address] [place] [phone] Shailesh Vallejo MD [address] [place] [address] [place] [phone] documented as of this encounter Visit Diagnoses Not on filedocumented in this encounter Care Teams Plc Engineer Relationship Specialty Start Date End Date Violeta Boo MD [address] [place] [phone] PCP - General Internal Medicine 03/21/23 documented as of this encounter
--- OUTSIDE RECORDS SUMMARY | 2025-02-11 15:45 | XMS_ITS | Clinical Summary ---
Author Organization 175 [facility] Address [address] [place] [address] Phone Care Team Providers Care Research Professional Name Role Phone Violeta Boo MD Primary [...] exercise, life style modifications, diet, referral to digital asset specialist. Discussed re lower calorie intake, increase dietary fiber Pt agreed to be referred to dietitian. Non-cardiac chest pain 08/08/2018 Seasonal allergies 08/08/2018 Unintended awareness under g eneral anesthesia during procedure 08/08/2018 Encounters Date Type Department Care Team Description 01/16/2025 1:00 PM EST Office Visit [facility] [place] [address] [place] [phone] Maury Godoy, DPM Dermatophytosis of nail [...] AM EDT Office Visit Orthopedic Surgery - [address] [phone] Maury Godoy, DPTeri 175 [facility] [address] [place] [address] Health Maintenance Due Date Last Done Comments [...] Test (03/01/2024) Annual BMP Blood Test Abstracted [facility] Provider HEALTH MAINTENANCE Final Result * Hemoglobin A1c (08/09/2022) Hemoglobin A1C 0.0 % Comment:No Interpretation, A bstracted Blood Venous blood specimen / Unknown [facility] Provider LAB BLOOD ORDERABLES Almaz l Result * Lipid panel (03/15/2022) LDL/HDL Ratio 0 Comment:No Interpretation, A bstracted Triglycerides 0 mg/dL Comment:No Interpretation, A bstracted Cholesterol 0 mg/dL Comment:No Interpretation, A bstracted HDL 0 mg/dL Comment:No Interpretation, A bstracted LDL Cholesterol 0 mg/dL Comment:No Interpretation, A bstracted Blood Venous blood specimen / Unknown [facility] Provider LAB BLOOD ORDERABLES Almaz l Result from Last 3 Months or Most Recently Relevant to Health Maintenance Insurance [employer] MEDICARE MEDICAID - [place] Care Teams Research Professional Relationship Specialty Start Date End Date Violeta Boo MD [address] [phone] PCP - General 03/29/23
--- OUTSIDE RECORDS SUMMARY | 2025-02-11 15:45 | XMS_ITS | Encounter Summary ---
Author Organization [employer] Address 75 [facility] 7 [place] [address] Care Team Providers Care Mirror Installer Name Role Phone Violeta Boo MD Primary Care Provide r Reason for Visit * Reason Onset Date Comments Appointment Request 01/29/2025 Encounter Details Date Type Department Care Team ([facility] Contact Info) Description 01/29/2025 Telephone [facility] MEDICINE 230 [place] [address] Violeta Boo MD 230 [place], [place] [phone] Appointment Request Social History Tobacco Use Types [...] encounter Miscellaneous Notes * Telephone Encounter - Evita Yeung - 01/29/2025 2:52 PM EDT Tc from pt requesting a call back to reschedule 02/05 appt. Pt states has a back surgery on 02/01 and can't walk after surgery. [phone] turkish documented in this encounter Plan of Treatment Upcoming Encounters Date Type Department Care Team (Late st Contact Info) Description 03/26/2025 10:00 AM EDT Office Visit [facility] MEDICINE [address] [place] [address] Violeta Boo MD 230 [place] [address] 06/07/2025 9:30 AM EDT Office Visit [facility] OPTOMETRY [address] [place] [address] Angella Negrete OD 230 [place] [address] documented as of this encounter Visit Diagnoses Not on filedocumented in this encounter Additional Health Concerns Assessment Noted Time PHQ-9 Depression Total Score: 17 024 11:23 AM EDT documented as of this encounter Care Teams Mirror Installer Relationship Specialty Start Date End Date Violeta Boo MD 230 [place] [address] PCP - General Family Medicine 05/21/22 documented as of this encounter
--- OUTSIDE RECORDS SUMMARY | 2025-02-11 15:45 | XMS_ITS | Encounter Summary ---
Author Organization [employer] Address 75 [facility] 7 [place] [address] Care Team Providers Care Casino Banker Name Role Phone Violeta Boo MD Primary Care Provide r Reason for Visit * Reason Onset Date Comments Durable Medical Equipment 11/20/2024 Encounter Details Date Type Department Care Team ([facility] st Contact Info) Description 11/20/2024 Telephone [facility] MED[facility]INE 230 [place] [address] Violeta Boo MD 230 [place], [place] [phone] Durable Medical Equipment Social History Tobacco Use [...] any questions you can contact pt at [phone]. (Belizean Speaker) documented in this encounter Plan of Treatment Upcoming Encounters Date Type Department Care Team ([facility] st Contact Info) Description 03/26/2025 10:00 AM EDT Office Visit [facility] MEDICINE [address] [place] [address] Violeta Boo MD [address] [place] [address] 06/07/2025 9:30 AM EDT Office Visit [facility] OPTOMETRY [address] [place] [address] Aneglla Negrete OD 230 [place] [address] documented as of this encounter Visit Diagnoses Not on filedocumented in this encounter Additional Health Concerns Assessment Noted Time PHQ-9 Depression Total Score: 17 024 11:23 AM EDT documented as of this encounter Care Teams Casino Banker Relationship Specialty Start Date End Date Violeta Boo MD 230 [place] [address] PCP - General Family Medicine 05/21/22 documented as of this encounter
--- OUTSIDE RECORDS SUMMARY | 2025-02-11 15:45 | XMS_ITS | Encounter Summary ---
Author Organization [facility] [place], Address [address] [place] [address] Phone Care Team Providers Care Paster Hat Lining Name Role Phone Violeta Boo MD Primary Care Provide r Encounter Details Date Type Department Care Team (Late st Contact Info) Description 08/27/2024 Documentation Only [facility] [address] [place] [phone] Rowena Knowles [address] [place] [address] Social History Tobacco Use Types [...] Visit [facility] [address] [place] [address] Shailesh Vallejo MD [address] [place] [address] [place] [address] documented as of this encounter Visit Diagnoses Not on filedocumented in this encounter Care Teams Paster Hat Lining Relationship Specialty Start Date End Date Violeta Boo MD [address] [place] [phone] PCP - General Internal Medicine 03/21/23 documented as of this encounter
--- OUTSIDE RECORDS SUMMARY | 2025-02-11 15:45 | XMS_ITS | Encounter Summary ---
Author Organization [email or web address] Address 75 [facility] 7t [place] [address] Care Team Providers Care Division Chief Name Role Phone Violeta Boo MD Primary Care Provide r Encounter Details Date Type Department Care Team (Late st Contact Info) Description 01/23/2025 Telephone C OPTOMETRY [address] [place] [address] Angella Negrete, OD [address] [place] [address] Social History Tobacco Use Types Packs/Day Years [...] 10:00 AM EDT Office Visit [facility] MEDICINE 230 [place] [address] Violeta Boo MD 230 [place] [address] 06/07/2025 9:30 AM EDT Office Visit [facility] OPTOMETRY [address] [place] [address] Caden, Angella, OD 230 [place] [address] documented as of this encounter Visit Diagnoses Not on filedocumented in this encounter Additional Health Concerns Assessment Noted Time PHQ-9 Depression Total Score: 17 024 11:23 AM EDT documented as of this encounter Care Teams Division Chief Relationship Specialty Start Date End Date Violeta Boo MD 230 [place] [address] PCP - General Family Medicine 05/21/22 documented as of this encounter
--- OUTSIDE RECORDS SUMMARY | 2025-02-11 15:45 | XMS_ITS | Encounter Summary ---
Author Organization [employer] Address 75 [facility] 7t [place] [address] Care Team Providers Care Housing Inspectors Name Role Phone Violeta Boo MD Primary Care Provide r Reason for Visit * Reason Onset Date Comments Appointment Request 11/11/2023 Encounter Details Date Type Department Care Team ([facility] Contact Info) Description 11/11/2023 Telephone [facility] MEDICINE 230 [place] [address] Violeta Boo MD 230 [place], [place] [phone] Appointment Request Social History Tobacco Use Types [...] on 11/16/23 due to being covid positive typewriter mechanic did cancel appt documented in this encounter Plan of Treatment Upcoming Encounters Date Type Department Care Team (Late st Contact Info) Description 03/26/2025 10:00 AM EDT Office Visit [facility] MEDICINE 230 [place] [address] Violeta Boo MD 230 [place] [address] 06/07/2025 9:30 AM EDT Office Visit [facility] OPTOMETRY [address] [place] [address] Caden, Anglela, OD 230 [place] [address] documented as of this encounter Visit Diagnoses Not on filedocumented in this encounter Care Teams Housing Inspectors Relationship Specialty Start Date End Date Violeta Boo MD 230 [place] [address] PCP - General Family Medicine 05/21/22 documented as of this encounter
--- OUTSIDE RECORDS SUMMARY | 2025-02-11 15:45 | XMS_ITS | Encounter Summary ---
Author Organization [employer] Address 75 [facility] 7 [place] [address] Care Team Providers Care Senior Project Controls Specialist Name Role Phone Violeta Boo MD Primary Care Provide r Reason for Visit * Reason Onset Date Comments Referral 12/07/2024 Encounter Details Date Type Department Care Team ([facility] st Contact Info) Description 12/07/2024 Telephone [facility] MEDICINE [address] [place] [address] Violeta Boo MD 230 [place] [address] Referral Social History Tobacco Use Types Packs/Day [...] - 12/07/2024 11:04 AM EST Tc from [facility] with [facility] as she states wrong referral was sent over she's requestingPhysical Therapy referral to be faxed over [facility] [phone]. documented in this encounter Plan of Treatment Upcoming Encounters Date Type Department Care Team (Late st Contact Info) Description 03/26/2025 10:00 AM EDT Office Visit [facility] MEDICINE [address] [place] [address] Violeta Boo MD [address] [place] [address] 06/07/2025 9:30 AM EDT Office Visit [facility] OPTOMETRY [address] [place] [address] Angella Negrete OD 230 [place] [address] documented as of this encounter Visit Diagnoses Not on filedocumented in this encounter Additional Health Concerns Assessment Noted Time PHQ-9 Depression Total Score: 17 024 11:23 AM EDT documented as of this encounter Care Teams Senior Project Controls Specialist Relationship Specialty Start Date End Date Violeta Boo MD [address] [place] [address] PCP - General Family Medicine 05/21/22 documented as of this encounter
--- OUTSIDE RECORDS SUMMARY | 2025-02-11 15:45 | XMS_ITS | Encounter Summary ---
Author Organization [employer] Address [address] [place] [address] 7t [place] [address] Care Team Providers Care Home Aide Name Role Phone Violeta Boo MD Primary Care Provide r Encounter Details Date Type Department Care Team ([facility] Contact Info) Description 08/03/2023 Orders Only [facility] MEDICINE [address] [place] [address] [phone] ProviderLibra MD Social History Tobacco Use Types Packs/Day Years [...] Upcoming Encounters Date Type Department Care Team ([facility] Contact Info) Description 03/26/2025 10:00 AM EDT Office Visit [facility] MEDICINE [address] [place] [address] [phone] Violeta Boo MD 230 [place], [place] [phone] 06/07/2025 9:30 AM EDT Office Visit [facility] OPTOMETRY [address] [place] [phone] Angella Negrete, OD 230 [place] [address] documented as of this encounter Procedures Procedure Name Priority Date/Time Associated Diagnosis Comments HM COLONOSCOPY Routine 06/11/2022 documented in this encounter Results * Hm Colonoscopy (06/11/2022) Historical Provider [facility] Final Result documented in this encounter Visit Diagnoses Not on filedocumented in this encounter Care Teams Home Aide Relationship Specialty Start Date End Date Violeta Boo MD 230 [place] [address] PCP - General Family Medicine 05/21/22 documented as of this encounter
--- OUTSIDE RECORDS SUMMARY | 2025-02-11 15:45 | XMS_ITS | Encounter Summary ---
Author Organization [facility] [place], Address [address] [place] [address] Phone Care Team Providers Care Medical Data Analyst Name Role Phone Violeta Boo MD Primary Care Provide r Encounter Details Date Type Department Care Team (Late st Contact Info) Description 05/05/2022 Documentation Only [facility] [address] [place] [address] Shailesh Vallejo MD [address] [place] [address] [place] [address] Social History Tobacco Use Types [...] [facility] [address] [place] [address] Shailesh Vallejo MD [address] [place] [address] [place] [address] documented as of this encounter Visit Diagnoses Not on filedocumented in this encounter Care Teams Medical Data Analyst Relationship Specialty Start Date End Date Violeta Boo MD [address] [place] [phone] PCP - General Internal Medicine 03/21/23 documented as of this encounter
--- OUTSIDE RECORDS SUMMARY | 2025-02-11 15:45 | XMS_ITS | Encounter Summary ---
Author Organization [employer] Address [address] [facility] 7t [place] [address] Care Team Providers Care Rn Utilization Management Um Name Role Phone Violeta Boo MD Primary Care Provide r Encounter Details Date Type Department Care Team ([facility] Contact Info) Description 11/25/2022 Telephone [facility] MEDICINE [address] [place], [place] [phone] Violeta Boo MD [address] [place], [place] [phone] Social History Tobacco Use Types Packs/Day Years [...] Upcoming Encounters Date Type Department Care Team ([facility] Contact Info) Description 03/26/2025 10:00 AM EDT Office Visit [facility] [address] [place], [place] [phone] Violeta Boo MD 230 [place], [place] [phone] 06/07/2025 9:30 AM EDT Office Visit [facility] OPTOM[facility] [address] [place] [address] [phone] Angella Negrete, OD 230 [place] [address] documented as of this encounter Visit Diagnoses Not on filedocumented in this encounter Care Teams Rn Utilization Management Um Relationship Specialty Start Date End Date Violeta Boo MD 230 [place] [address] PCP - General Family Medicine 05/21/22 documented as of this encounter
--- OUTSIDE RECORDS SUMMARY | 2025-02-11 15:45 | XMS_ITS | Encounter Summary ---
Author Organization [employer] Address [address] [facility] 7t [place] [address] Care Team Providers Care Leather Heel Breaster Name Role Phone Violeta Boo MD Primary Care Provide r Encounter Details Date Type Department Care Team ([facility] st Contact Info) Description 11/10/2023 Abstract [facility] MEDICINE [address] [place], [place] [phone] Violeta Boo MD [address] [place] [address] Social History Tobacco Use Types Packs/Day Years [...] Description 03/26/2025 10:00 AM EDT Office Visit [facility] MEDICINE [address] [place] [address] Violeta Boo MD [address] [place] [address] 06/07/2025 9:30 AM EDT Office Visit [facility] OPTOMETRY [address] [place] [address] Caden, Angella, OD 230 [place] [address] documented as of this encounter Visit Diagnoses Not on filedocumented in this encounter Care Teams Leather Heel Breaster Relationship Specialty Start Date End Date Violeta Boo MD 230 [place] [address] PCP - General Family Medicine 05/21/22 documented as of this encounter
--- OUTSIDE RECORDS SUMMARY | 2025-02-11 15:45 | XMS_ITS | Encounter Summary ---
Author Organization [employer] Address 75 [facility] 7t [place] [address] Care Team Providers Care 6Th Grade Teacher Name Role Phone Violeta Boo MD Primary Care Provide r Reason for Visit * Reason Onset Date Comments Referral 12/08/2022 Encounter Details Date Type Department Care Team ([facility] st Contact Info) Description 12/08/2022 Telephone [facility] MEDICINE [address] [place] [address] Violeta Boo MD [address] [place] [address] Referral Social History Tobacco Use Types Packs/Day [...] a new referral for colorectal Surgery at [address] [place] [address] [place] [address]. Ej stated that a provider from their got in contact With Dr. Berkowitz, and Dr. Berkowitz advised provider that it okay for pt to receive a referral. They are now requesting a new referral from PCP, in order for pt to be ssen. If any question please contact bill at [phone] documented in this encounter Plan of Treatment Upcoming Encounters Date Type Department Care Team (Late st Contact Info) Description 03/26/2025 10:00 AM EDT Office Visit [facility] MEDICINE [address] [place] [address] Violeta Boo MD [address] [place] [address] 06/07/2025 9:30 AM EDT Office Visit [facility] OPTOMETRY [address] [place] [address] Angella Negrete, OD 230 [place] [address] documented as of this encounter Visit Diagnoses Not on filedocumented in this encounter Care Teams 6Th Grade Teacher Relationship Specialty Start Date End Date Violeta Boo MD [address] [place] [address] PCP - General Family Medicine 05/21/22 documented as of this encounter
--- OUTSIDE RECORDS SUMMARY | 2025-02-11 15:45 | XMS_ITS | Encounter Summary ---
Author Organization [employer] Address 75 [facility] 7t [place] [address] Care Team Providers Care Plate Mill Mill Hand Name Role Phone Violeta Boo MD Primary Care Provide r Reason for Visit * Reason Comments Med Refill Encounter Details Date Type Department Care Team ([facility] st Contact Info) Description 10/21/2024 Refill [facility] MEDICINE [address] [place] [address] Violeta Boo MD [address] [place] [address] Pain Social History Tobacco Use Types Packs/Day [...] Description 03/26/2025 10:00 AM EDT Office Visit [facility] MEDICINE [address] [place] [address] Violeta Boo MD [address] [place] [address] 06/07/2025 9:30 AM EDT Office Visit [facility] OPTOMETRY [address] [place] [address] Caden, Angella, OD 230 [place] [address] documented as of this encounter Visit Diagnoses Diagnosis Pain Generalized pain documented in this encounter Additional Health Concerns Assessment Noted Time PHQ-9 Depression Total Score: 17 024 11:23 AM EDT documented as of this encounter Care Teams Plate Mill Mill Hand Relationship Specialty Start Date End Date Violeta Boo MD [address] [place] [phone] PCP - General Family Medicine 05/21/22 documented as of this encounter
--- OUTSIDE RECORDS SUMMARY | 2025-02-11 15:45 | XMS_ITS | Encounter Summary ---
Author Organization [facility] [place], Address [address] [place] [address] Phone Care Team Providers Care Rod Pointer Name Role Phone Violeta Boo MD Primary Care Provide r Encounter Details Date Type Department Care Team (Late st Contact Info) Description 05/05/2022 Documentation Only [facility] [address] [place] [address] Shailesh Vallejo MD [address] [place] [address] [place] [address] Social History Tobacco Use Types [...] Visit [facility] [address] [place] [address] Shailesh Vallejo MD [address] [place] [address] [place] [address] documented as of this encounter Visit Diagnoses Not on filedocumented in this encounter Care Teams Rod Pointer Relationship Specialty Start Date End Date Violeta Boo MD [address] [place] [phone] PCP - General Internal Medicine 03/21/23 documented as of this encounter
--- OUTSIDE RECORDS SUMMARY | 2025-02-11 15:45 | XMS_ITS | Encounter Summary ---
Author Organization [employer] Address 75 [facility] 7t [place] [address] Care Team Providers Care Physical Education Teacher Name Role Phone Violeta Boo MD Primary Care Provide r Reason for Visit * Reason Onset Date Comments Durable Medical Equipment 10/13/2023 Encounter Details Date Type Department Care Team ([facility] st Contact Info) Description 10/13/2023 Telephone [facility] MEDICINE 230 [place] [address] Violeta Boo MD 230 [place], [place] [phone] Durable Medical Equipment Social History Tobacco Use [...] : 2xl Pullups Ensures Flavors Vanilla and Pecatonica Gloves Large Wipes Pt states insurance fax over request. Please contact pt at [phone] Mongolian Speaker documented in this encounter Plan of Treatment Upcoming Encounters Date Type Department Care Team (Late st Contact Info) Description 03/26/2025 10:00 AM EDT Office Visit [facility] MEDICINE 230 [place] [address] Violeta Boo MD 230 [place] [address] 06/07/2025 9:30 AM EDT Office Visit [facility] OPTOMETRY [address] [place] [address] Angella Negrete, JOSH 230 [place] [address] documented as of this encounter Visit Diagnoses Not on filedocumented in this encounter Care Teams Physical Education Teacher Relationship Specialty Start Date End Date Violeta Boo MD [address] [place] [phone] PCP - General Family Medicine 05/21/22 documented as of this encounter
--- OUTSIDE RECORDS SUMMARY | 2025-02-11 15:45 | XMS_ITS | Encounter Summary ---
Author Organization [employer] Address [address] [facility] 7t [place] [address] Care Team Providers Care Wood Pole Treater Name Role Phone Violeta Boo MD Primary Care Provide r Reason for Visit * Reason Comments Med Refill Encounter Details Date Type Department Care Team ([facility] st Contact Info) Description 11/18/2022 Refill [facility] MED & PEDS [address] [place] [address] Betsy Simmons CNM 230 [place] [address] Social History Tobacco Use Types Packs/Day Years [...] No answer, left V/M. Will [facility] for [facility] attempt * Telephone Encounter [...] Description 03/26/2025 10:00 AM EDT Office Visit [facility] MEDICINE 230 [place], [place] [phone] Violeta Boo MD [address] [place], [place] [phone] 06/07/2025 9:30 AM EDT Office Visit [facility] OPTOMETRY [address] [place] [address] Angella Negrete, OD 230 [place], [place] [phone] documented as of this encounter Visit Diagnoses Not on filedocumented in this encounter Care Teams Wood Pole Treater Relationship Specialty Start Date End Date Violeta Boo MD 230 [place], [place] [phone] PCP - General Family Medicine 05/21/22 documented as of this encounter
--- OUTSIDE RECORDS SUMMARY | 2025-02-11 15:45 | XMS_ITS | Encounter Summary ---
Author Organization [employer] Address 75 [facility] 7t [place] [address] Care Team Providers Care Vacuum Closing Machine Operator Name Role Phone Violeta Boo MD Primary Care Provide r Encounter Details Date Type Department Care Team (Latest Contact Info) Description 05/27/2022 Abstract [facility] CONVERSIONS Dental, Provider, DDS Social History [...] 03/26/2025 10:00 AM EDT Office Visit [facility] MEDICINE [address] [place] [address] Violeta Boo MD [address] [place] [address] 06/07/2025 9:30 AM EDT Office Visit [facility] OPTOMETRY [address] [place] [address] Angella Negrete, OD 230 [place] [address] documented as of this encounter Visit Diagnoses Not on filedocumented in this encounter Care Teams Vacuum Closing Machine Operator Relationship Specialty Start Date End Date Violeta Boo MD [address] [place] [address] PCP - General Family Medicine 05/21/22 documented as of this encounter
--- OUTSIDE RECORDS SUMMARY | 2025-02-11 15:45 | XMS_ITS | Encounter Summary ---
Author Organization [facility] Address [address] [place] [address] Phone Care Team Providers Care Fabrication Specialist Name Role Phone Violeta Boo MD Primary Care Provide r Encounter Details Date Type Department Care Team (Late st Contact Info) Description 2022 Office Communication [facility] [address] [place] [address] Shailesh Vallejo MD [address] [place] [address] [place] [address] Social History Tobacco Use Types [...] [facility] [address] [place] [address] Shailesh Vallejo MD [address] [place] [address] [place] [address] documented as of this encounter Visit Diagnoses Not on filedocumented in this encounter Care Teams Fabrication Specialist Relationship Specialty Start Date End Date Violeta Boo MD [address] [place] [phone] PCP - General Internal Medicine 03/21/23 documented as of this encounter
--- OUTSIDE RECORDS SUMMARY | 2025-02-11 15:45 | XMS_ITS | Clinical Summary ---
Author Organization [facility] [place], Address [address] [place] [address] [place] [address] Phone Care Team Providers Care Manager Shell Name Role Phone Violeta Boo MD Primary [...] Diagnosed Date Resolved Date Gout 02/12/2020 06/15/2021 long term use of nonsteroida l antiinflammatories 02/12/2020 06/15/2021 [...] Visit [facility] [address] [place] [phone] Shailesh Vallejo MD [address] [place] [address] [place] [phone] Health Maintenance Due Date Last Done Comments [...] AM EST) Hemoglobin A1C 7.1(H) (4.0-5.6) % [facility] Comment: MONITORING: In known diabetic patients, hemoglobin A1c targets should be discussed with health care provider. DIAGNOSTIC USE: ??The [place] [employer] (ADA) and the World Health [...] Supplement 1 Testing performed or reported by [facility], a Service of [facility], [address] [place] [address] Yana Bales MD, Network Developer [facility]# [id number] Blood (Blood, Venous) 10/20/2022 9:21 AM EST 10/20/2022 9:22 AM EST us Shailesh Vallejo MD LAB BLOOD ORDERABLES Final Resul t [facility] from Last 3 Months or Most Recently Relevant to Health Maintenance Insurance [facility] DUAL COMPLETE ([id number]) Care Teams Manager Shell Relationship Specialty Start Date End Date Violeta Boo MD [address] [place] [address] [place] [phone] PCP - General Internal Medicine 03/21/23
--- OUTSIDE RECORDS SUMMARY | 2025-02-11 15:45 | XMS_ITS ---
Author Name Radha Ayala NP Address [address] [place] [address] Phone [phone] [facility] Care Team Providers Care Member Services Representative Name Role Phone Radha Ayala Unavailable [phone] Unavailable Unavailable Unavailable Unavailable Unavailable Unavailable Cristo Garcia Unavailable [phone] Unavailable Unavailable [phone] Gideon Frost Unavailable [phone] Unavailable Unavailable Unavailable Unavailable Unavailable Unavailable Unavailable Unavailable [phone] WALTER ROBERT Unavailable [phone] Nirav Anthony Unavailable [phone] Unavailable Unavailable [phone] Unavailable Unavailable [phone] Reason for Referral Not Available Allergies, adverse [...] AREA(S) EVERY MORNING 2022-12-16 No Data Available Lherjuko-Kgvgmhmns-UI [id number] 3 TO 4 DROPS INTO [...] a day 2024-05-11 No Data Availab le [employer] Verio Flex System w/Device Kit USE DIRECTED [...] 2023-04-12 N/A 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;Peripheral vascular disease, unspecified Active 2023-04-12 N/A Chronic gouty arthritis;Generalized osteoarthritis Act rossy 2023-04-07 N/A Chronic diarrhea Active 2023-04-07 N/A Unspecified atherosclerosis of [place] arteries of extremities, bilateral legs Active 2023-04-13 N/A Chronic obstructive pulmonary disease, unspecified Act rossy 2023-04-13 N/A Hemorrhoids Active 2023-08-10 N/A Onychomycosis Active 2023-08-21 N/A Chronic bilateral low back p ain with bilateral sciatica;Bulging lumbar disc Active 2023-04-07 N/A Chronic back pain Active 2023-10-21 N/A At risk for cancerAt risk for colon cancer Active 2023-10-21 N/A Other problems related to ok dical facilities and other health care Active 2024-01-19 N/A Other problems related to ok dical facilities and other health care Active [...] (do not use for phone, instead use 24352-39) [facility]2023 Noninfective gastroenteritis and colitis, unspecifiedRepeated fallsUnspecified [...] sitesSacroiliitis, not elsewhere classifiedAthscl heart disease of [place] cor art w unsp ang pctrsPeripheral vascular disease, unspecified New patient,40-59min; chronic exacerbation, 2 stable chronic or 1 acute illness add add modifier 95 for video (do not use for phone, instead use 82444-93) [facility] New patient,40-59min; chronic exacerbation, 2 stable chronic or 1 acute illness add add modifier 95 for video (do not use for phone, instead use 28762-25) [facility] New patient,40-59min; chronic exacerbation, 2 stable chronic or 1 acute illness add add modifier 95 for video (do not use for phone, instead use 30169-87) [facility] New patient,40-59min; chronic exacerbation, 2 stable chronic or 1 acute illness add add modifier 95 for video (do not use for phone, instead use 17759-80) [facility] New patient,40-59min; chronic exacerbation, 2 stable chronic or 1 acute illness add add modifier 95 for video (do not use for phone, instead use 85481-46) [facility] New patient,40-59min; chronic exacerbation, 2 stable chronic or 1 acute illness add add modifier 95 for video (do not use for phone, instead use 08469-36) [facility] New patient,40-59min; chronic exacerbation, 2 stable chronic or 1 acute illness add add modifier 95 for video (do not use for phone, instead use 46582-38) [facility] New patient,40-59min; chronic exacerbation, 2 stable chronic or 1 acute illness add add modifier 95 for video (do not use for phone, instead use 10010-70) [facility]2023 Unlisted special service; to be used for medical record reviews and reporting CPTII codes (1111F, etc) [facility] 07/[place]2023 Other specified counseling Unlisted special service; to be used for medical record reviews and reporting CPTII codes (1111F, etc) [facility] Unlisted special service; to be used for medical record reviews and reporting CPTII codes (1111F, etc) [facility]2023 No Data Available [facility] 08[place]2023 Body mass index (BMI) 45.0-4 9.9, adultPrediabetesMorbid (severe) obesity due to excess caloriesTinea unguiumLumbago with sciatica, left sideLumbago with sciatica, right sideOther chronic painOther intervertebral disc degeneration, lumbar region No Data Available [facility] 08[place]2023 No Data Available [facility]23 No Data Available [facility] 10[place]21/2023 Dorsalgia, unspecifiedOther chronic painMorbid (severe) obesity due to excess caloriesOther specified personal risk factors, not elsewhere classified No Data Available [facility] 10[place]21/2023 Estab. patient 30-39min; chronic exacerbation, 2 stable chronic or 1 acute illness add add modifier 95 for video, (do not use for phone, instead use 07420-39) [facility] 05/11/2024 Type 2 diabetes mellitus wit h diabetic chronic kidney diseaseChronic kidney disease, stage 3bRepeated fallsUnspecified hearing loss, left earTinnitus, left earUnspecified hemorrhoidsOther specified postprocedural statesLumbago with sciatica, left sideLumbago with sciatica, right sideOther chronic painOther intervertebral disc degeneration, lumbar regionIdiopathic chronic gout, unspecified site, without tophus (tophi)Polyosteoarthritis, unspecifiedSchizophrenia, unspecifiedAthscl heart disease of [place] cor art w unsp ang pctrsType 2 diabetes w diabetic peripheral angiopath w/o gangreneUnsp athscl [place] arteries of extremities, bilateral legsChronic obstructive pulmonary [...] (do not use for phone, instead use 92098-81) [facility]20[place] Estab. patient 30-39min; chronic exacerbation, 2 stable chronic or 1 acute illness add add modifier 95 for video, (do not use for phone, instead use 90536-58) [facility] 05[place]11/2024 Estab. patient 30-39min; chronic exacerbation, 2 stable chronic or 1 acute illness add add modifier 95 for video, (do not use for phone, instead use 59974-84) [facility] Estab. patient 30-39min; chronic exacerbation, 2 stable chronic or 1 acute illness add add modifier 95 for video, (do not use for phone, instead use 63252-69) [facility] Estab. patient 30-39min; chronic exacerbation, 2 stable chronic or 1 acute illness add add modifier 95 for video, (do not use for phone, instead use 38248-66) [facility] Estab. patient 30-39min; chronic exacerbation, 2 stable chronic or 1 acute illness add add modifier 95 for video, (do not use for phone, instead use 89055-70) [facility] No Data Available [facility]/2024 Type 2 diabetes mellitus wit h diabetic chronic kidney diseaseChronic kidney disease, stage 3b No Data Available [facility] 05[place]/2024 No Data Available [facility] 06[place]2024 Type 2 diabetes mellitus wit h diabetic chronic kidney diseaseChronic kidney disease, stage 3b No Data Available [facility]20[place] Unlisted special service; to be used for medical record reviews and reporting CPTII codes (1111F, etc) [facility] 09/04/2024 Other specified counseling Unlisted special service; to be used for medical record reviews and reporting CPTII codes (1111F, etc) [facility] Unlisted special service; to be used for medical record reviews and reporting CPTII codes (1111F, etc) [facility] Estab. patient 10-29min; 1 minor problem; add add modifier 95 for video, modifier 93 for phone [facility] 12/18/2024 Type 2 diabetes mellitus wit h diabetic chronic kidney diseaseChronic kidney disease, stage 3bMorbid (severe) obesity due to excess caloriesBody mass index (bmi) 50-59.9 , adult Estab. patient 10-29min; 1 minor problem; add add modifier 95 for video, modifier 93 for phone [facility]18[place]20[place] Estab. patient 10-29min; 1 minor problem; add add modifier 95 for video, modifier 93 for phone [facility] 12/18/2024 Vital Signs Date of Collection [...] (do not use for phone, instead use 75910-26) 61187 2023-04-07 No Data Available No Data Availa [...] reviews and reporting CPTII codes (1111F, etc) 35500 2023-07-01 No Data Available No Data Availa ble SBP < 130 (3074F) 3074F 2023-07-01 No Data Available No Data Available DBP <80 (3078F) 3078F 2023-07-01 No Data Available No Data Available No Data Available 36110 2023-08-10 No Data Available No Data Available Medication List Documented (1159F) 1159F 2023-08-10 No Data Available No Data Lena ilable BMI obtained (3008F) 3008F 2023-08-10 No Data Availab le No Data Available No Data Available 13832 2023-10-21 No Data Available No Data Available Medication List Documented (1159F) 1159F 2023-10-21 No Data Available No Data Lena ilable Estab. patient 30-39min; chronic exacerbation, 2 stable chronic or 1 acute illness add add modifier 95 for video, (do not use for phone, instead use 88449-71) 98689 2024-05-11 No Data Available No Data Availa [...] Available No Data Available No Data Available 14234 2024-05-14 No Data Available No Data Available Medication List Documented (1159F) 1159F 2024-05-14 No Data Available No Data Lena ilable No Data Available 36416 2024-06-20 No Data Available No Data Available Medication List Documented (1159F) 1159F 2024-06-20 No Data Available No Data Lena ilable Unlisted special service; to be used for medical record reviews and reporting CPTII codes (1111F, etc) 29896 2024-09-04 No Data Available No Data Availa ble SBP >= 140 3077F 2024-09-04 No Data Available No Data Available DBP >=90 3080F 2024-09-04 No Data Available No Data Available Estab. patient 10-29min; 1 minor problem; add add modifier 95 for video, modifier 93 for phone 56284 2024-12-18 No Data Available No Data Availa [...] rheumatoid factor, multiple sitesAtherosclerotic heart disease of [place] coronary artery with unspecified angina pectoris;Peripheral vascular [...] discChronic gouty arthritis;Generalized osteoarthritisSchizophreniaAtherosclerotic heart disease of [place] coronary artery with unspecified angina pectoris;Peripheral vascular disease, unspecifiedUnspecified atherosclerosis of [place] arteries of extremities, bilateral legsChronic obstructive pulmonary [...] for weight clinic - also endocr for [facility] MASending to podiatry per pt request.Also needs [...] had available staff.Pt to call [facility] and get name of PT providers in her area that are covered.Will investigate weight loss clinics.Pt to look for back exercises on YouTube, activity as tolerated.Will FU.BMI 49.25send to weight clinic but not [place]referral for weight clinic - also endocr for [facility] [place]10/21/2023Have not been able to find clinic that is covered by [facility] in er area. Pt to call [facility] and find list of names [...] Documented (1125F)Continue to see PCP. [facility] or disease [...] portal notes, I70.203 - Unspecified atherosclerosis of [place] arteries of extremities, bilateral legs continues to take albuterol sulfatePlease call CB ifIncreased SOB,or if patient falls.Pain that radiates to vaginaHas seen PCPhas referral to GI but is going to cancelEd not to cancel, get transportBMI 52.08send to weight clinic but not [place] 08/[place]/2023ref[place] for weight clinic [place] [facility] [place]Have not been able to find clinic that is covered by [facility] in er area. Pt to call [facility] and find list of names [...] had available staff.Pt to call [facility] and get name of PT [...] modifier 95)Continue to see PCP. Follow-up with [facility] as needed for any acute or disease [...] our conversation of three days ago. Her [employer] is supposed to go tonight or tomorrow [...] modifier 95)Continue to see PCP. Follow-up with [facility] as needed for any acute or disease [...] our conversation of three days ago. Her [employer]NA[employer] is supposed to go tonight or tomorrow [...] mg dose. She will be traveling to [place] so she is to ask for emergency traveling supply, which won't be much as she will be back july.Refilled w instructions to pharmacy.Will FU after . 2024-12-18 08:09:04 Estab. patient 10-29 min; 1 minor problem; add add modifier 95 for video, modifier 93 for phoneContinue to see PCP. [facility] [...] our conversation of three days ago. Her [employer] is supposed to go tonight or tomorrow [...] mg dose. She will be traveling to [place] so she is to ask for emergency [...] for weight clinic - [place] [facility] [place]Have not been able to find clinic that is covered by [facility] in er area. Pt to call [facility] and find list of names [...]
--- OUTSIDE RECORDS SUMMARY | 2025-02-11 15:45 | XMS_ITS | Encounter Summary ---
Author Organization [facility] Address [address] [place] [address] Phone Care Team Providers Care Automotive Design Drafter Name Role Phone Violeta Boo MD Primary Care Provide r Encounter Details Date Type Department Care Team (Late st Contact Info) Description 12/24/2022 Documentation Only [facility] [address] [place] [phone] Jazmin Powell PA Social History Tobacco Use [...] Visit [facility] [address] [place] [phone] Shailesh Vallejo MD [address] [place] [address] [place] [phone] documented as of this encounter Visit Diagnoses Not on filedocumented in this encounter Care Teams Automotive Design Drafter Relationship Specialty Start Date End Date Violeta Boo MD [address] [place] [phone] PCP - General Internal Medicine 03/21/23 documented as of this encounter
--- OUTSIDE RECORDS SUMMARY | 2025-02-11 15:45 | XMS_ITS | Encounter Summary ---
Author Organization [employer] Address [address] [facility] [address]t [place] [address] Care Team Providers Care Cylinder Press Operator Name Role Phone Violeta Boo MD Primary Care Provide r Encounter Details Date Type Department Care Team (Late Contact Info) Description 04/26/2023 Orders Only [facility] [address] [place] [address] Brittany Epps LPN Social History Tobacco Use [...] Description 03/26/2025 10:00 AM EDT Office Visit [facility] [address] [place], [place] [phone] Violeta Boo MD [address] [place], [place] [phone] 06/07/2025 9:30 AM EDT Office Visit [facility] [address] [place] [address] Caden, Megan, OD [address] [place] [address] documented as of this encounter Procedures Procedure Name Priority Date/Time Associated Diagnosis Comments XR LUMBAR SPINE 2-3 VIEWS Routine 05/05/2023 12:38 PM EDT documented in this encounter Results * XR Lumbar Spine 2-3 Views (05/05/2023 12:38 PM EDT) Anatomical Region Laterality Modality Spine, L-spine Radiographic Rena ging 05/05/2023 12:3 8 PM EDT Narrative 05/17/2023 7:08 PM EDT ? [facility] ?[address] ?[place] [address] ?XRay Report ? Signed ? Patient: Violeta Alvarenga V ?MR#: [id number] ?? [id number] ? : 1950 ?Acct:[id number] ? Age/Sex: 72 / F ?ADM Date: 05/05/23 ? Loc: HO.XRAY ? Attending Dr: Violeta Pascual MD ? Ordering Physician: Violeta Boo MD ?? Date of Service: 05/05/23 ?? Procedure(s): XR lumbar spine 2-3V ?? Accession Number(s): [id number] ? cc: Violeta Boo MD ? EXAMINATION: [...] 1905 ? DD/ 1238 ? TD/TT: ? Underwriting Manager: SANA ? Procedure Note Jaqueline, Image - 05/17/[address] [address] XRay Report Signed Patient: Violeta Alvarenga VMR#: [id number] : 1950cct:[id number] Age/Sex: 72 / FADM Date: 05/05/23 Loc: HO.XRAY Attending Dr: Violeta Pascual MD Ordering Physician: Violeta Boo MD Date of Service: 05/05/23 Procedure(s): XR lumbar spine 2-3V Accession Number(s): [id number] cc: Violeta Boo MD EXAMINATION: XR LUMBOSACRAL [...] in OV> 05/17/23 1905 DD/ 1238 TD/TT: Underwriting Manager: SANA [facility] External Provider IMG XR PROCEDURES Edited Result - Final documented in this encounter Visit Diagnoses Not on filedocumented in this encounter Care Teams Cylinder Press Operator Relationship Specialty Start Date End Date Violeta Boo MD [address] [place] [address] PCP - General Family Medicine 05/21/22 documented as of this encounter
--- OUTSIDE RECORDS SUMMARY | 2025-02-11 15:45 | XMS_ITS | Encounter Summary ---
Author Organization [employer] Address [address] [facility] 7t [place] [address] Care Team Providers Care Pool Cleaner Name Role Phone Violeta Boo MD Primary Care Provide r Reason for Visit * Reason Onset Date Comments Reasonable Accommodation Request 10/25/2022 I called regarding a reasonable accommodation form, from [employer] The pt states that she will be getting a scooter, because she is no longer able to use a cane or a walker. She is requesting an apartment with elevator accessibility, because it would be easier for her to get in and out of her apartment. Encounter Details Date Type Department Care Team ([facility] st Contact Info) Description 10/25/2022 Telephone [facility] [address] [place] [address] Maksim [place], [place] Reasonable Accommodation Request (I called regarding a reasonable accommodation form, from [employer] The pt states that she will be [...] Description 03/26/2025 10:00 AM EDT Office Visit [facility] [address] [place] [address] Violeta Boo MD [address] [place] [address] 06/07/2025 9:30 AM EDT Office Visit [facility] [address] [place] [address] Angella Negrete, OD [address] [place] [address] documented as of this encounter Visit Diagnoses Not on filedocumented in this encounter Care Teams Pool Cleaner Relationship Specialty Start Date End Date Violeta Boo MD [address] [place] [address] PCP - General Family Medicine 05/21/22 documented as of this encounter
== END 2025-02-11 14:38 | disposition home or self-care (01) ==
PROVIDERS: PCP Internal Medicine; Visit Provider Anesthesiology
DX: M54.16 Radiculopathy, lumbar region (principal); M48.061 Spinal stenosis, lumbar region without neurogenic claudication; M54.51 Vertebrogenic low back pain
CPT/HCPCS: 99024

== ENCOUNTER → 2025-02-11 13:58 | Outpatient (BNVA) | payer OTHER, SELFPAY | PROVIDERS: PCP Internal Medicine; Visit Provider Anesthesiology | DX: M54.16 Radiculopathy, lumbar region (principal); M48.061 Spinal stenosis, lumbar region without neurogenic claudication; M54.51 Vertebrogenic low back pain | CPT/HCPCS: 99212 ==

== ENCOUNTER 2025-03-18 10:24 | Outpatient (REF) | payer OTHER, SELFPAY ==
[2025-03-18 10:49] LABS: MANUAL DIFF FLAG NO
[2025-03-18 11:24] LABS: Basophils Percent Auto 0.3 % (0-2); Eosinophils Absolute Auto 0.1 X10*3/uL (0.0-0.4); Eosinophils Percent Auto 1.1 % (0-4); Hematocrit 40.4 % (37.0-47.0); Hemoglobin 12.9 g/dl (12.0-16.0); Imm Gran Abs Auto 0.03 X10*3/uL (0.00-0.03); Imm Gran Pct Auto 0.3 % (0.0-0.4); Lymphocytes Absolute Auto 2.1 X10*3/uL (1.2-4.9); Lymphocytes Percent Auto 22.1 % (20-40); Mean Corpuscular HGB Conc 31.9 g/dl (31.0-35.0); Mean Corpuscular Hemoglobin 29.9 pg (27.0-33.0); Mean Corpuscular Volume 93.5 fL (80.0-98.0); Monocytes Absolute Auto 0.6 X10*3/uL (0.1-1.2); Monocytes Percent Auto 6.1 % (2-11); Neutrophils Absolute Auto 6.5 x10*3/uL (2.0-8.3); Neutrophils Percent Auto 70.1 % (45-73); Platelet Count 289 X10*3/uL (160-400); Red Blood Count 4.32 X10*6/uL (4.20-5.50); White Blood Count 9.3 X10*3/uL (4.8-10.8)
--- OUTSIDE RECORDS SUMMARY | 2025-03-18 11:45 | XMS_ITS | Encounter Summary ---
Author Organization [employer] Address [address] [facility] [address] [place] [address] Care Team Providers Care Head Of Sales And Marketing Name Role Phone Violeta Boo MD Primary Care Provide r Reason for Visit * Reason Onset Date Comments Referral 12/07/2024 Encounter Details Date Type Department Care Team ([facility] st Contact Info) Description 12/07/2024 Telephone [facility] [address] [place] [address] Violeta Boo MD [address] [place] [address] Referral Social History Tobacco Use Types Packs/Day [...] - 12/07/2024 11:04 AM EST Tc from [facility] with [facility] as she states wrong referral was sent over she's requestingPhysical Therapy referral to be faxed over [facility] [phone]. documented in this encounter Plan of Treatment Upcoming Encounters Date Type Department Care Team (Late st Contact Info) Description 03/26/2025 10:00 AM EDT Office Visit [facility] [address] [place] [address] Violeta Boo MD [address] [place] [address] 06/07/2025 9:30 AM EDT Office Visit [facility] [address] [place] [address] Angella Negrete OD [address] [place] [address] documented as of this encounter Visit Diagnoses Not on filedocumented in this encounter Additional Health Concerns Assessment Noted Time PHQ-9 Depression Total Score: 17 024 11:23 AM EDT documented as of this encounter Care Teams Head Of Sales And Marketing Relationship Specialty Start Date End Date Violeta Boo MD [address] [place] [phone] PCP - General Family Medicine 05/21/22 documented as of this encounter
--- OUTSIDE RECORDS SUMMARY | 2025-03-18 11:45 | XMS_ITS | Encounter Summary ---
Author Organization [facility] Address [address] [place] [address] Phone Care Team Providers Care Laborer/Key Man Name Role Phone Violeta Boo MD Primary Care Provide r Encounter Details Date Type Department Care Team (Late st Contact Info) Description 03/18/2025 Orders Only [facility] [address] [place] [address] Shailesh Vallejo MD [address] [address] Stage 3b chronic kidney disease (HCC) (Primary Dx); Essential (primary) hypertension; Type 2 diabetes mellitus, not otherwise specified (HCC); Hypervolemia; Anemia in chronic kidney disease Social History Tobacco Use Types Packs/Day Years [...] [facility] [address] [place] [address] Shailesh Vallejo MD [address] [place] [address] Scheduled Orders Name Type Priority Associated Diagnoses Orde r Schedule CBC and differential Lab Routine Stage 3b chronic kidney disease (HCC) Essential (primary) hypertension Type 2 diabetes mellitus, not otherwise specified (HCC) Hypervolemia Anemia in chronic kidney disease Expected: 03/18/2025, Expires: 04/18/2026 Renal function panel Lab Routine Stage 3b chronic kidney disease (HCC) Essential (primary) hypertension Type 2 diabetes mellitus, not otherwise specified (HCC) Hypervolemia Anemia in chronic kidney disease Expected: 03/18/2025, Expires: 04/18/2026 PTH, intact Lab Routine Stage 3b chronic kidney disease (HCC) Essential (primary) hypertension Type 2 diabetes mellitus, not otherwise specified (HCC) Hypervolemia Anemia in chronic kidney disease Expected: 03/18/2025, Expires: 04/18/2026 Vitamin D 25 hydroxy Lab Routine Stage 3b chronic kidney disease (HCC) Essential (primary) hypertension Type 2 diabetes mellitus, not otherwise specified (HCC) Hypervolemia Anemia in chronic kidney disease Expected: 03/18/2025, Expires: 04/18/2026 Urinalysis with microscopic Lab Routine Stage 3b chronic kidney disease (HCC) Essential (primary) hypertension Type 2 diabetes mellitus, not otherwise specified (HCC) Hypervolemia Anemia in chronic kidney disease Expected: 03/18/2025, Expires: 04/18/2026 Urine Protein / creatinine ratio Lab Routine Stage 3b chronic kidney disease (HCC) Essential (primary) hypertension Type 2 diabetes mellitus, not otherwise specified (HCC) Hypervolemia Anemia in chronic kidney disease Expected: 03/18/2025, Expires: 04/18/2026 Iron Panel (Fe, TIBC, TSAT) Lab Routine Stage 3b chronic kidney disease (HCC) Essential (primary) hypertension Type 2 diabetes mellitus, not otherwise specified (HCC) Hypervolemia Anemia in chronic kidney disease Expected: 03/18/2025, Expires: 04/18/2026 Ferritin Lab Routine Stage 3b chronic kidney disease (HCC) Essential (primary) hypertension Type 2 diabetes mellitus, not otherwise specified (HCC) Hypervolemia Anemia in chronic kidney disease Expected: 03/18/2025, Expires: 04/18/2026 documented as of this encounter Visit Diagnoses Diagnosis Stage 3b chronic kidney disease (HCC)- Primary Essential (primary) hypertension Type 2 diabetes mellitus, not otherwise specified (HCC) Hypervolemia Anemia in chronic kidney disease documented in this encounter Care Teams Laborer/Key Man Relationship Specialty Start Date End Date Violeta Boo MD [address] [place] [phone] PCP - General Internal Medicine 03/21/23 documented as of this encounter
--- OUTSIDE RECORDS SUMMARY | 2025-03-18 11:45 | XMS_ITS | Encounter Summary ---
Author Organization [employer] Address [address] [facility] 7t [place] [address] Care Team Providers Care Space Planner Name Role Phone Violeta Boo MD Primary Care Provide r Reason for Visit * Reason Onset Date Comments Appointment Request 02/17/2023 Encounter Details Date Type Department Care Team ([facility] Contact Info) Description 02/17/2023 Telephone [facility] [address] [place] [address] Violeta Boo MD [address], [place] [phone] Appointment Request Social History Tobacco Use Types [...] message previously sent. Please contact pt at [phone] Ugandan Speaker * Telephone Encounter - Shay Navarro - 02/17/2023 1:16 PM EDT Tc from pt requesting to r/s appt for Follow up on 02/17/2023. Please contact pt at [phone] Ugandan Speaker documented in this encounter Plan of Treatment Upcoming Encounters Date Type Department Care Team (Late st Contact Info) Description 03/26/2025 10:00 AM EDT Office Visit [facility] [address] [place] [address] Violeta Boo MD [address] [place] [address] 06/07/2025 9:30 AM EDT Office Visit [facility] OPTOMET[facility] [address] [place] [address] Caden, Angella, OD [address] [place] [address] documented as of this encounter Visit Diagnoses Not on filedocumented in this encounter Care Teams Space Planner Relationship Specialty Start Date End Date Violeta Boo MD [address] [place] [address] PCP - General Family Medicine 05/21/22 documented as of this encounter
--- OUTSIDE RECORDS SUMMARY | 2025-03-18 11:45 | XMS_ITS | Encounter Summary ---
Author Organization [employer] Address 75 [facility] 7t [place] [address] Care Team Providers Care Transmission Design Engineer Name Role Phone Violeta Boo MD Primary Care Provide r Reason for Visit * Reason Comments Med Refill Encounter Details Date Type Department Care Team ([facility] st Contact Info) Description 11/02/2024 Refill [facility] [address] [place] [address] Violeta Boo MD [address] [place] [address] Pain Social History Tobacco Use Types Packs/Day [...] Description 03/26/2025 10:00 AM EDT Office Visit [facility] [address] [place] [address] Violeta Boo MD [address] [place] [address] 06/07/2025 9:30 AM EDT Office Visit [facility] OPTOMETRY [address] [place] [address] Caden, Angella, OD [address] [place] [address] documented as of this encounter Visit Diagnoses Diagnosis Pain Generalized pain documented in this encounter Additional Health Concerns Assessment Noted Time PHQ-9 Depression Total Score: 17 024 11:23 AM EDT documented as of this encounter Care Teams Transmission Design Engineer Relationship Specialty Start Date End Date Violeta Boo MD [address] [place] [phone] PCP - General Family Medicine 05/21/22 documented as of this encounter
--- OUTSIDE RECORDS SUMMARY | 2025-03-18 11:45 | XMS_ITS | Encounter Summary ---
Author Organization [employer] Address [address] [facility] 7t [place] [address] Care Team Providers Care Box Spring Upholsterer Name Role Phone Violeta Boo MD Primary Care Provide r Encounter Details Date Type Department Care Team (Late Contact Info) Description 04/26/2023 Orders Only [facility] [address] [place] [address] Brittany Epps LPN Social History Tobacco Use [...] Description 03/26/2025 10:00 AM EDT Office Visit [facility] MED[facility] [address] [place], [place] [phone] Violeta Boo MD [address] [place], [place] [phone] 06/07/2025 9:30 AM EDT Office Visit [facility] OPTOMETRY [address] [place] [address] Caden, Megan, OD [address] [place] [address] documented as of this encounter Procedures Procedure Name Priority Date/Time Associated Diagnosis Comments XR LUMBAR SPINE 2-3 VIEWS Routine 05/05/2023 12:38 PM EDT documented in this encounter Results * XR Lumbar Spine 2-3 Views (05/05/2023 12:38 PM EDT) Anatomical Region Laterality Modality Spine, L-spine Radiographic Rena ging 05/05/2023 12:3 8 PM EDT Narrative 05/17/2023 7:08 PM EDT ? [facility] ?[address] ?[place] [address] ?XRay Report ? Signed ? Patient: Violeta Alvarenga V ?MR#: MM ?? [id number] ? : 1950 ?Acct:[id number] ? Age/Sex: 72 / F ?ADM Date: 05/05/23 ? Loc: HO.XRAY ? Attending Dr: Violeta Pascual MD ? Ordering Physician: Violeta Boo MD ?? Date of Service: 05/05/23 ?? Procedure(s): XR lumbar spine 2-3V ?? Accession Number(s): [id number] ? cc: Violeta Boo MD ? EXAMINATION: [...] 1905 ? DD/ 1238 ? TD/TT: ? Physical Biochemist: SANA ? Procedure Note Jaqueline, Image - 05/17/[address] [address] XRay Report Signed Patient: Violeta Alvarenga VMR#: [id number] : 1950cct:[id number] Age/Sex: 72 / FADM Date: 05/05/23 Loc: HO.XRAY Attending Dr: Violeta Pascual MD Ordering Physician: Violeta Boo MD Date of Service: 05/05/23 Procedure(s): XR lumbar spine 2-3V Accession Number(s): [id number] cc: Violeta Boo MD EXAMINATION: XR LUMBOSACRAL [...] Hernandez MD Signed By: <Electronically signed by Amnada Hernandez MD in OV> 05/17/23 1905 DD/ 1238 TD/TT: Physical Biochemist: SANA [facility] External Provider IMG XR PROCEDURES Edited Result - Final documented in this encounter Visit Diagnoses Not on filedocumented in this encounter Care Teams Box Spring Upholsterer Relationship Specialty Start Date End Date Violeta Boo MD [address] [place] [phone] PCP - General Family Medicine 05/21/22 documented as of this encounter
--- OUTSIDE RECORDS SUMMARY | 2025-03-18 11:45 | XMS_ITS | Encounter Summary ---
Author Organization [employer] Address 75 [facility] 7t [place] [address] Care Team Providers Care Tuckpointer Name Role Phone Violeta Boo MD Primary Care Provide r Encounter Details Date Type Department Care Team (Late st Contact Info) Description 07/20/2024 Telephone [facility] OPTOMETRY [address] [place] [address] Angella Negrete, OD [address] [place] [address] Social History Tobacco Use Types Packs/Day Years [...] 07/20/2024 3:24 PM EDT Called the Patient TRADEMARK ATTORNEY Nikita Sneed, to inform her at the [...] Description 03/26/2025 10:00 AM EDT Office Visit [facility] MEDICINE [address] [place] [address] Violeta Boo MD [address] [place] [address] 06/07/2025 9:30 AM EDT Office Visit [facility] OPTOMETRY [address] [place] [address] Angella Negrete, OD [address] [place] [address] documented as of this encounter Visit Diagnoses Not on filedocumented in this encounter Care Teams Tuckpointer Relationship Specialty Start Date End Date Violeta Boo MD [address] [place] [address] PCP - General Family Medicine 05/21/22 documented as of this encounter
--- OUTSIDE RECORDS SUMMARY | 2025-03-18 11:45 | XMS_ITS | Encounter Summary ---
Author Organization [facility], Address [address] [place] [address] Phone Care Team Providers Care Cylinder Worker Name Role Phone Violeta Boo MD Primary Care Provide r Encounter Details Date Type Department Care Team (Late st Contact Info) Description 03/15/2022 Documentation Only [facility] [address] [place] [address] Shailesh Vallejo MD [address] [place] [address] [place] [address] Social History Tobacco Use Types [...] Visit [facility] [address] [place] [address] Shailesh Vallejo MD [address] [place] [address] [place] [address] documented as of this encounter Visit Diagnoses Not on filedocumented in this encounter Care Teams Cylinder Worker Relationship Specialty Start Date End Date Violeta Boo MD [address] [place] [phone] PCP - General Internal Medicine 03/21/23 documented as of this encounter
--- OUTSIDE RECORDS SUMMARY | 2025-03-18 11:45 | XMS_ITS | Clinical Summary ---
Author Organization [employer] Address [address] [place] [address] 7t [place] [address] Care Team Providers Care Drum Drier Name Role Phone Violeta Boo MD Primary [...] other day. Active Blood Glucose Monitoring Suppl (First [employer] Verio Flex System) w/Device kit USE DIRECTED [...] (08/13/2024 1:13 PM EDT): Being follow by CLINICAL RADIOLOGIST US is pending Vaginal pain 03/29/2024 Rectal [...] on scalp once per day and FU label operator. Otitis externa 12/16/2022 Assessment & Plan (12/16/2022 [...] exercise, life style modifications, diet, referral to mobile marketing specialist. Discussed re lower calorie intake, increase dietary fiber Pt agreed to be referred to dietitian. 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 She stated that she is requesting a first floor, or elevator accessible apartment. She also needs a walk-in tub, grab bars in the bathroom, a hand-held shower head, and a safety rails for the toilet. She stated that she does not want the form faxed to [facility]. She will pick it up, once it has been approved by the provider.) 01/29/[address] [facility] MEDICINE [address] [place] [phone] Violeta Boo MD Housing Form (The patient left a message, stating that she was returning a call regarding a housing form. I returned her call, and reached her voicemail. I left a message, asking her to return my call at ext [phone]. A reasonable accommodation form was received on 12/19/24 from [facility], but it does not state what accommodation the patient is requesting.) 01/28/2025 Patient Outreach [facility] [address] [place] [phone] Violeta Boo MD Pre-visit Planning ((Unable to reach for PVP screening, LVM)) 01/23/[address] [facility] OPTOMETRY [address] [place] [address] Angella Negrete, OD 01/23/[address] [facility] OPTOMETRY [address] [place] [address] Angella Negrete, OD 01/14/2025 Orders Only GENERIC EXTERNAL DATA DEPARTMENT Provider, Generic External Data 01/11/[address] [facility] MED[facility]INE [address] [place] [address] Violeta Boo MD FYI ; Housing Form (I called the patient regarding a reasonable accommodation request, from [facility]. The form lists the patient's medical conditions, but it does not state what the accommodation is. I reached her voicemail, and left a message asking her to return my call at ext [phone].) 01/04/[address] [facility] [address] [place] [address] Violeta Boo MD 01/01/[address] [address] Violeta Boo MD [facility] Lab request 12/27/[address] [address] Violeta Boo MD Appointment Request 12/26/[address] [phone] Violeta Boo MD Reasonable Accommodation (I called the patient regarding a reasonable accommodation request, from [facility] [employer]. The form lists the patient's medical conditions, but it does not state what the accommodation is. There was no answer, and I reached a recording stating that the person's voicemail is not not set up. I then called her care connector, Nikita, and she stated that she is not sure of what the patient is requesting. She agreed to ask the patient to return my call at ext [phone].) 12/24/[address] [address] Violeta Boo MD call back required 12/20/[address] [address] Violeta Boo MD [facility] needed. 12/20/[address] [address] Violeta Boo MD from Last 3 Months Immunizations Name Administration [...] 10:00 AM EDT Office Visit [facility] MEDICINE [address] [place] [address] Violeta Boo MD [address] [place] [address] 06/07/2025 9:30 AM EDT Office Visit [facility] OPTOMETRY [address] [place] [address] Angella Negrete, OD [address] [place] [address] Health Maintenance Due Date Last Done Comments CT Colonography 1950 FIT DNA/Cologuard 1950 FIT 1950 FOBT 1950 Sigmoidoscopy 1950 Alcohol/Substance Use Screening 1964 RSV Patients and Patients Aged 60 years or older (1 - Risk 60-74 years 1-dose series) 2012 DTaP/Tdap/Td Vaccines (2 - Td or Tdap) 01/29/2023 01/29/2013 SDOH Screening 01/24/2025 01/25/2024 Depression Screening 08/13/2025 08/13/2024, 08/13/20 24 Diabetes: [...] EDT Narrative 02/01/2025 11:33 AM EDT ? [facility] ?[address] ?[place] [address] ? Fluoroscopy Report ? Signed ? Patient: Karl Monterroso,Nasreen ?MR#: MM ?? [id number] ? : 1950 ?Acct:[id number] ? Age/Sex: 74 / F ?ADM Date: 03/21/25 ? Loc: HO.SSS ? Attending Dr: Jigar Trevino MD ? Ordering Physician: Jigar Trevino MD ?? Date of Service: 02/01/25 ?? Procedure(s): FL guidance in OR ?? Accession Number(s): [id number] ? cc: Violeta Boo MD; Jigar Trevino [...] Eduardo Weathers MD ??02/01/2025 11:31 AM EDT ? Dictated By: ?Carlos Eduardo Weathers MD ? Signed By: ?<Electronically signed by Carlos Eduardo Weathers MD in OV> ?02/01/25 1131 ? DD/ 0910 ? TD/TT: 02/01/25 1100 ? Blue Prints Trimmer: ? Procedure Note Donse, Image - 02/01/[address] [address] Fluoroscopy Report Signed Patient: Karl AdamsonVioleta skaggs VMR#: [id number] : 2Acct:[id number] Age/Sex: 74 / FADM Date: 02/01/25 Loc: HO.SSS Attending Dr: Jigar Trevino MD Ordering Physician: Jigar Trevino MD Date of Service: 02/01/25 Procedure(s): FL guidance in OR Accession Number(s): [id number] cc: Violeta Boo MD; Jigar Trevino MD [...] Eduardo Weathers MD 02/01/2025 11:31 AM EDT RP Dictated By: Carlos Eduardo Weathers MD Signed By: <Electronically signed by Carlos Eduardo Weathers MD in OV> 02/01/25 1131 DD/ 0910 TD/TT: 02/01/25 1100 Blue Prints Trimmer: [facility] External Provider IMG IR PROCEDURES Final Result * (ABNORMAL) Glucose, Whole Blood (02/01/2025 8:33 AM EDT) Pathologist [facility] Glucose, Whole Blood 121(H) 60 - 115 mg/dL [facility] Comment:METER #: [id number] 02/01/2025 8:33 AM EDT 02/01/2025 8:43 AM EDT Generic External Data Provider LAB BLOOD ORDERAB LES Final Result [facility] [address] [place] [phone] * CBC auto differential (01/14/2025 10:48 AM EST) White Blood Count 10.1 4.8 - 10.8 X10*3/uL [facility] Red Blood Count 4.46 4.20 - 5.50 X10*6/uL [facility] Hemoglobin 13.6 12.0 - 16.0 g/dl [facility] Hematocrit 42.0 37.0 - 47.0 % [facility] Mean Corpuscular Volume 94.2 80.0 - 98.0 fL [facility] Mean Corpuscular Hemoglobin 30.5 27.0 - 33.0 pg [facility] Mean Corpuscular HGB Conc 32.4 31.0 - 35.0 g/dl [facility] Red Cell Distribution Width 14.6 11.0 - 16.0 % [facility] Platelet Count 330 160 - 400 X10*3/uL [facility] Mean Platelet Volume 10.8 9.4 - 12.3 fL [facility] Neutrophils Percent Auto 64.5 45 - 73 % [facility] Imm Gran Pct Auto 0.3 0.0 - 0.4 % [facility] Lymphocytes Percent Auto 24.8 20 - 40 % [facility] Monocytes Percent Auto 7.9 2 - 11 % [facility] Eosinophils Percent Auto 1.9 0 - 4 % [facility] Basophils Percent Auto 0.6 0 - 2 % [facility] NRBC Pct Auto 0.0 0.0 - 0.2 /100WBC [facility] Neutrophils Absolute Auto 6.5 2.0 - 8.3 x10*3/uL [facility] Imm Gran Abs Auto 0.03 0.00 - 0.03 X10*3/uL [facility] Lymphocytes Absolute Auto 2.5 1.2 - 4.9 X10*3/uL [facility] Monocytes Absolute Auto 0.8 0.1 - 1.2 X10*3/uL [facility] Eosinophils Absolute Auto 0.2 0.0 - 0.4 X10*3/uL [facility] Basophils Absolute Auto 0.1 0.0 - 0.2 X10*3/uL [facility] NRBC Abs Auto 0.000 0.0 - 0.012 X10*3/uL [facility] 01/14/2025 10:4 8 AM EST 01/14/2025 10:48 AM EST us Generic External Data Provider LAB BLOOD ORDERAB LES Final Result [facility] [address] [place] [phone] [phone] * (ABNORMAL) Sed Rate by Modified Westergren (01/14/2025 10:48 AM EST) Erythrocyte Sedimentation Rate 36(H) 0 - 20 MM/HR [facility] Comment:Patients with polycy themia and many hemoglobin abnormalitiesmay have depressed sed rates whereas patients with anemiamay have elevated sed rates. 01/14/2025 10:4 8 AM EST 01/14/2025 10:48 AM EST us Generic External Data Provider LAB BLOOD ORDERAB LES Final Result Performing Organization Address [facility] Co de Phone Number [facility] [address] [place] [phone] * C-reactive Protein (01/14/2025 10:48 AM EST) C Reactive Protein 0.37 < or = 0.50 mg/dL [facility] 01/14/2025 10:4 8 AM EST 01/14/2025 10:48 AM EST us Generic External Data Provider LAB BLOOD ORDERAB LES Final Result Performing Organization Address [facility] Co de Phone Number [facility] [address] [place] [phone] * Uric acid (01/14/2025 10:48 AM EST) Uric Acid 5.0 2.4 - 5.7 mg/dL [facility] 01/14/2025 10:4 8 AM EST 01/14/2025 10:48 AM EST us Generic External Data Provider LAB BLOOD ORDERAB LES Final Result Performing Organization Address [facility] Co de Phone Number [facility] [address] [place] [phone] * (ABNORMAL) Comprehensive Metabolic Panel (01/14/2025 10:48 AM EST) Sodium 142 135 - 145 mmol/L [facility] Potassium 4.4 3.3 - 5.1 mmol/L [facility] Chloride 103 96 - 108 mmol/L [facility] Carbon Dioxide 29 22 - 29 mmol/L [facility] Anion Gap 14 12 - 20 [facility] Urea Nitrogen (BUN) 25(H) 9 - 16 mg/dL [facility] Creatinine, Serum 1.47(H) 0.5 - 1.4 mg/dL [facility] Estimated Glomerular Filt Rate 35 [facility] Comment:Chronic Kidney Disea se: Estimated GFR < 60 mL/min/1.74y1Bseluz Kidney Disease: Estimated GFR < 15 mL/min/1.73m2 Glucose 100 60 - 115 mg/dL [facility] Calcium 9.7 8.4 - 10.2 mg/dL [facility] Bilirubin, Total 0.4 0.0 - 1.0 mg/dL [facility] Aspartate Amino Transferase 23 5 - 31 U/L [facility] Alanine Aminotransferase 19 0 - 31 U/L [facility] Total Protein 7.2 6.5 - 8.0 g/dL [facility] Albumin Level 3.8 3.5 - 5.0 g/dL [facility] Alkaline Phosphatase 138(H) 39 - 117 U/L [facility] 01/14/2025 10:4 8 AM EST 01/14/2025 10:48 AM EST us Generic External Data Provider LAB BLOOD ORDERAB LES Final Result [facility] [address] [place] [phone] * BI Mammogram Screening Tomosynthesis Bilateral (08/30/2024 9:10 AM EDT) Anatomical Region Laterality Modality Breast Bilateral Mammography 08/30/2024 9:10 AM EDT Narrative 09/11/2024 12:30 PM EDT ? [facility] ? [address] ?[place] [address] ? Mammography Report ? Signed with Addenda ? Patient: Violeta Alvarenga V ?MR#: MM ?? [id number] ? : 1950 ?Acct:[id number] ? Age/Sex: 74 / F ?ADM Date: 08/30/24 ? Loc: HO.MAMMO ? Attending Dr: Violeta Pascual MD ? Ordering Physician: Violeta Boo MD ?Results: ?? 2Benign Findings ? Date of Service: 08/30/24 ?Follow Up: 1 Year From Orig ?? inal Mammogram ? Procedure(s): MM tomosynthesis screening BI ?? Accession Number(s): [id number] ? cc: Violeta Boo MD ?ADDENDUM ? [...] 09/14/24 1026 ?? Addendum Cosigned By: ? DD/DT: 10/ ? TD/TT: 08/30/24 ? EXAMINATION: ?? MM [...] DD/ 0910 ? TD/TT: 08/30/24 0925 ? Blue Prints Trimmer: ? Procedure Note Soniter, Image - 09/14/2024 [facility] [address] [place] [address] Dr. Pina, ROSEANNE [address] Mammography Report Signed with Cynthia Patient: Violeta Alvarenga R#: [id number] : 2Acct:[id number] Age/Sex: 74 / FADM Date: 08/30/24 Loc: HO.MAMMO Attending Dr: Violeta Pascual MD Ordering Physician: Barciona Pascual,Violeta MDResults: 2Benign Findings Date of Service: 08/30/24Follow Up: 1 Year From Orig inal Mammogram Procedure(s): MM tomosynthesis screening BI Accession Number(s): [id number] cc: Violeta Boo MD ADDENDUM ADDENDUM #1 [...] signed by Radhika Douglas DO in OV> 10/29/24 1227 DD/ 9 TD/TT: 08/30/[address] Blue Prints Trimmer: Violeta Pascual MD IMG BI PROCEDURES Shemar daylin Result - Final * POCT HGB A1C (08/13/2024 10:31 AM EDT) Hemoglobin A1C 6.0 4.0 - 6.0 % QC Media Lot # [id number] Lot# Expiration Date Blood 08/13/2024 10:3 1 AM EDT Result [facility] Violeta Pascual MD POINT OF CARE TEST [...] Madi WADE et al. JUAN LUIS. 2013;310(19): 4113-4176 ?? (http://education.[employer]/faq/YNV583) Non-HDL Cholesterol 124 <130 mg/dL (calc) [facility] Comment: For patients with diabetes plus 1 major ASCVD risk ?? factor, treating to a non-HDL-C goal of <100 mg/dL ?? (LDL-C of <70 mg/dL) is considered a therapeutic ?? option. Triglycerides 190(H) <150 mg/dL [facility] 03/15/2022 9:22 AM EDT Leonard Perez MD LAB BLOOD ORDERABL ES Final Result Performing Organization Address [facility] Co de Phone Number [facility] [address] * HEPATITIS C ANTIBODY RFLX (01/02/2020 10:23 AM EST) HEPATITIS C ANTIBODY NONREACTIVE NONREACTIVE [facility] Comment: Antibodies to HCV not detected; does not exclude early acute HCV infection. 01/02/2020 10:2 3 AM EST Historical Provider HISTORICAL/NON ORDERABLE LABS Final Result Performing Organization Address [facility] de Phone Number [facility] [address] from Last 3 Months or Most Recently Relevant to Health Maintenance Insurance [facility] DUAL COMPLETE Care Teams Drum Drier Relationship Specialty Start Date End Date Violeta Boo MD [address] [place] [address] [phone] PCP - General Family Medicine 05/21/22
--- OUTSIDE RECORDS SUMMARY | 2025-03-18 11:45 | XMS_ITS | Encounter Summary ---
Author Organization [employer] Address 75 [facility] 7t [place] [address] Care Team Providers Care Brand Marketing Specialist Name Role Phone Violeta Boo MD Primary Care Provide r Reason for Visit * Reason Comments Med Refill Encounter Details Date Type Department Care Team (Late Contact Info) Description 02/13/2023 Refill [facility] [address] [place], [place] [phone] Cassy Starks MD 230 [place], [place] [phone] Social History Tobacco Use Types Packs/Day Years [...] Description 03/26/2025 10:00 AM EDT Office Visit [facility] [address] [place], [place] [phone] Violeta Boo MD 230 [place], [place] [phone] 06/07/2025 9:30 AM EDT Office Visit [facility] [address] [place] [address] Angella Negrete, OD 230 [place] [address] documented as of this encounter Visit Diagnoses Not on filedocumented in this encounter Care Teams Brand Marketing Specialist Relationship Specialty Start Date End Date Violeta Boo MD 230 [place] [address] PCP - General Family Medicine 05/21/22 documented as of this encounter
--- OUTSIDE RECORDS SUMMARY | 2025-03-18 11:45 | XMS_ITS | Encounter Summary ---
Author Organization [employer] Address 75 [facility] 7 [place] [address] Care Team Providers Care Police Detective Name Role Phone Violeta Boo MD Primary Care Provide r Reason for Visit * Reason Onset Date Comments Durable Medical Equipment 11/20/2024 Encounter Details Date Type Department Care Team ([facility] st Contact Info) Description 11/20/2024 Telephone [facility] 230 [place] [address] Violeta Boo MD 230 [place], [place] [phone] Durable Medical Equipment Social History Tobacco Use [...] any questions you can contact pt at [phone]. (Lebanese Speaker) documented in this encounter Plan of Treatment Upcoming Encounters Date Type Department Care Team ([facility] st Contact Info) Description 03/26/2025 10:00 AM EDT Office Visit [facility] 230 [place] [address] Violeta Boo MD 230 [place] [address] 06/07/2025 9:30 AM EDT Office Visit [facility] OPTOMETRY [address] [place] [address] Angella Negrete OD 230 [place] [address] documented as of this encounter Visit Diagnoses Not on filedocumented in this encounter Additional Health Concerns Assessment Noted Time PHQ-9 Depression Total Score: 17 024 11:23 AM EDT documented as of this encounter Care Teams Police Detective Relationship Specialty Start Date End Date Violeta Boo MD 230 [place] [address] PCP - General Family Medicine 05/21/22 documented as of this encounter
--- OUTSIDE RECORDS SUMMARY | 2025-03-18 11:45 | XMS_ITS | Encounter Summary ---
Author Organization [employer] Address [address] [place] [address] 7t [place] [address] Care Team Providers Care Ship Liner Name Role Phone Violeta Boo MD Primary Care Provide r Encounter Details Date Type Department Care Team ([facility] Contact Info) Description 03/22/2023 Orders Only [facility] [address] [place] [address] Brittany Epps LPN Social History Tobacco Use [...] Upcoming Encounters Date Type Department Care Team ([facility] Contact Info) Description 03/26/2025 10:00 AM EDT Office Visit [facility] 230 [place] [address] Violeta Boo MD 230 [place], [place] [phone] 06/07/2025 9:30 AM EDT Office Visit [facility] OPTOMET[facility] [address] [place], [place] [phone] Angella Negrete, OD 230 [place], [place] [phone] documented as of this encounter Visit Diagnoses Not on filedocumented in this encounter Care Teams Ship Liner Relationship Specialty Start Date End Date Violeta Boo MD 230 [place], [place] [phone] PCP - General Family Medicine 05/21/22 documented as of this encounter
--- OUTSIDE RECORDS SUMMARY | 2025-03-18 11:46 | XMS_ITS | Encounter Summary ---
Author Organization [employer] Address 75 [facility] 7t [place] [address] Care Team Providers Care Cut Off Machine Operator Name Role Phone Violeta Boo MD Primary Care Provide r Reason for Visit * Reason Onset Date Comments Reasonable Accommodation Request 10/25/2022 I called regarding a reasonable accommodation form, from [employer]. The pt states that she will be getting a scooter, because she is no longer able to use a cane or a walker. She is requesting an apartment with elevator accessibility, because it would be easier for her to get in and out of her apartment. Encounter Details Date Type Department Care Team ([facility] st Contact Info) Description 10/25/2022 Telephone [facility] [address] [place] [address] [place], [place] Reasonable Accommodation Request (I called regarding a reasonable accommodation form, from [employer]. The pt states that she will be [...] Description 03/26/2025 10:00 AM EDT Office Visit [facility] 230 [place] [address] Violeta Boo MD 230 [place] [address] 06/07/2025 9:30 AM EDT Office Visit [facility] OPTOMETRY [address] [place] [address] Angella Negrete, OD 230 [place] [address] documented as of this encounter Visit Diagnoses Not on filedocumented in this encounter Care Teams Cut Off Machine Operator Relationship Specialty Start Date End Date Violeta Boo MD 230 [place] [address] PCP - General Family Medicine 05/21/22 documented as of this encounter
--- OUTSIDE RECORDS SUMMARY | 2025-03-18 11:46 | XMS_ITS | Encounter Summary ---
Author Organization [facility], Address [address] [place] [address] Phone Care Team Providers Care Dimension Mill Worker Name Role Phone Violeta Boo MD Primary Care Provide r Encounter Details Date Type Department Care Team (Late st Contact Info) Description 02/13/2024 Documentation Only [facility] [address] [place] [address] Rowena Knowles [address] [place] [address] Social History Tobacco Use Types [...] Visit [facility] [address] [place] [address] Shailesh Vallejo MD [address] [place] [address] [place] [phone] documented as of this encounter Visit Diagnoses Not on filedocumented in this encounter Care Teams Dimension Mill Worker Relationship Specialty Start Date End Date Violeta Boo MD [address] [place] [phone] PCP - General Internal Medicine 03/21/23 documented as of this encounter
--- OUTSIDE RECORDS SUMMARY | 2025-03-18 11:46 | XMS_ITS | Encounter Summary ---
Author Organization [facility] Address [address] [place] [address] Phone Care Team Providers Care Protective Service Specialist Name Role Phone Violeta Boo MD Primary Care Provide r Encounter Details Date Type Department Care Team (Late st Contact Info) Description 2022 Office Communication [facility] [address] [place] [address] Shailesh Vallejo MD [address] [place] [address] [place] [address] Social History Tobacco Use Types [...] Visit [facility] [address] [place] [address] Shailesh Vallejo MD [address] [place] [address] [place] [address] documented as of this encounter Visit Diagnoses Not on filedocumented in this encounter Care Teams Protective Service Specialist Relationship Specialty Start Date End Date Violeta Boo MD [address] [place] [phone] PCP - General Internal Medicine 03/21/23 documented as of this encounter
--- OUTSIDE RECORDS SUMMARY | 2025-03-18 11:46 | XMS_ITS | Encounter Summary ---
Author Organization [employer] Address 75 [facility] 7t [place] [address] Care Team Providers Care Battery Builder Name Role Phone Violeta Boo MD Primary Care Provide r Encounter Details Date Type Department Care Team (Late Contact Info) Description 08/17/2023 Abstract [facility] [address] [place] [address] [phone] Violeta Boo MD [address] [place] [address] [phone] Social History Tobacco Use Types Packs/Day Years [...] Description 03/26/2025 10:00 AM EDT Office Visit [facility] 230 [place], [place] [phone] Violeta Boo MD [address] [place] [address] [phone] 06/07/2025 9:30 AM EDT Office Visit [facility] [address] [place], [place] [phone] Angella Negrete, OD 230 [place] [address] documented as of this encounter Visit Diagnoses Not on filedocumented in this encounter Care Teams Battery Builder Relationship Specialty Start Date End Date Violeta Boo MD [address] [place], [place] [phone] PCP - General Family Medicine 05/21/22 documented as of this encounter
--- OUTSIDE RECORDS SUMMARY | 2025-03-18 11:46 | XMS_ITS | Encounter Summary ---
Author Organization [employer] Address 75 [facility] 7 [place] [address] Care Team Providers Care Sourcing Consultant Name Role Phone Violeta Boo MD Primary Care Provide r Reason for Visit * Reason Onset Date Comments Durable Medical Equipment 02/21/2025 Encounter Details Date Type Department Care Team ([facility] st Contact Info) Description 02/21/2025 Telephone [facility] 230 [place] [address] Violeta Boo MD 230 [place] [address] Durable Medical Equipment Social History Tobacco Use [...] Telephone Encounter - Luis Enrique Downs - 02/21/2025 1:34 PM EDT TC from [facility] reports she has been out of office and received a referral for an order for adrienne walker. She is unable to complete this requests . Recommends to get referral to Ot or PT for Rolatorchiomaker. documented in this encounter Plan of Treatment Upcoming Encounters Date Type Department Care Team (Late st Contact Info) Description 03/26/2025 10:00 AM EDT Office Visit [facility] 230 [place] [address] Violeta Boo MD 230 [place] [address] 06/07/2025 9:30 AM EDT Office Visit [facility] OPTOMETRY [address] [place] [address] Angella Negrete, OD 230 [place] [address] documented as of this encounter Visit Diagnoses Not on filedocumented in this encounter Additional Health Concerns Assessment Noted Time PHQ-9 Depression Total Score: 17 024 11:23 AM EDT documented as of this encounter Care Teams Sourcing Consultant Relationship Specialty Start Date End Date Violeta Boo MD 230 [place] [address] PCP - General Family Medicine 05/21/22 documented as of this encounter
--- OUTSIDE RECORDS SUMMARY | 2025-03-18 11:46 | XMS_ITS | Encounter Summary ---
Author Organization [employer] Address 75 [facility] 7t [place] [address] Care Team Providers Care Custodial Aide Name Role Phone Violeta Boo MD Primary Care Provide r Encounter Details Date Type Department Care Team (Latest Contact Info) Description 05/27/2022 Abstract [facility] CONVERSIONS Dental, Provider, DDS Social History Tobacco [...] [facility] MEDICINE 230 [place] [address] Violeta Boo MD 230 [place] [address] 06/07/2025 9:30 AM EDT Office Visit [facility] OPTOMETRY [address] [place] [address] Angella Negrete, OD 230 [place] [address] documented as of this encounter Visit Diagnoses Not on filedocumented in this encounter Care Teams Custodial Aide Relationship Specialty Start Date End Date Violeta Boo MD 230 [place] [address] PCP - General Family Medicine 05/21/22 documented as of this encounter
--- OUTSIDE RECORDS SUMMARY | 2025-03-18 11:46 | XMS_ITS | Encounter Summary ---
Author Organization [employer] Address 75 [facility] 7t [place] [address] Care Team Providers Care Call Center Rn Name Role Phone Violeta Boo MD Primary Care Provide r Reason for Visit * Reason Onset Date Comments Appt cancelation 03/02/2024 Encounter Details Date Type Department Care Team ([facility] st Contact Info) Description 03/02/2024 Telephone [facility] 230 [place] [address] Violeta Boo MD 230 [place], [place] [phone] Appt cancelation Social History Tobacco Use Types [...] 04/27 due to being referred to outside living specialist documented in this encounter Plan of Treatment Upcoming Encounters Date Type Department Care Team (Late st Contact Info) Description 03/26/2025 10:00 AM EDT Office Visit [facility] [address] [place] [address] Violeta Boo MD 230 [place] [address] 06/07/2025 9:30 AM EDT Office Visit [facility] OPTOMETRY [address] [place] [address] Caden, Angella, OD 230 [place] [address] documented as of this encounter Visit Diagnoses Not on filedocumented in this encounter Care Teams Call Center Rn Relationship Specialty Start Date End Date Violeta Boo MD 230 [place] [address] PCP - General Family Medicine 05/21/22 documented as of this encounter
--- OUTSIDE RECORDS SUMMARY | 2025-03-18 11:46 | XMS_ITS | Encounter Summary ---
Author Organization [employer] Address [address] [facility] 7t [place] [address] Care Team Providers Care Sales Agent Fire Insurance Name Role Phone Violeta Boo MD Primary Care Provide r Reason for Visit * Reason Onset Date Comments Durable Medical Equipment 10/13/2023 Encounter Details Date Type Department Care Team ([facility] st Contact Info) Description 10/13/2023 Telephone [facility] 230 [place] [address] Violeta Boo MD 230 [place], [place] [phone] Durable Medical Equipment Social History Tobacco Use [...] : 2xl Pullups Ensures Flavors Vanilla and [place] Gloves Large Wipes Pt states insurance fax over request. Please contact pt at [phone] Cymro Speaker documented in this encounter Plan of Treatment Upcoming Encounters Date Type Department Care Team (Late st Contact Info) Description 03/26/2025 10:00 AM EDT Office Visit [facility] 230 [place] [address] Violeta Boo MD 230 [place] [address] 06/07/2025 9:30 AM EDT Office Visit [facility] OPTOMETRY [address] [place] [address] Angella Negrete, JOSH 230 [place] [address] documented as of this encounter Visit Diagnoses Not on filedocumented in this encounter Care Teams Sales Agent Fire Insurance Relationship Specialty Start Date End Date Violeta Boo MD [address] [place] [phone] PCP - General Family Medicine 05/21/22 documented as of this encounter
--- OUTSIDE RECORDS SUMMARY | 2025-03-18 11:46 | XMS_ITS | Encounter Summary ---
Author Organization [facility] [place], Address [address] [place] [address] Phone Care Team Providers Care Central Office Associate Name Role Phone Violeta Boo MD Primary Care Provide r Encounter Details Date Type Department Care Team (Late st Contact Info) Description 05/05/2022 Documentation Only [facility] [address] [place] [address] Shailesh Vallejo MD [address] [place] [address] [place] [address] Social History Tobacco Use Types [...] [facility] [address] [place] [address] Shailesh Vallejo MD [address] [place] [address] [place] [address] documented as of this encounter Visit Diagnoses Not on filedocumented in this encounter Care Teams Central Office Associate Relationship Specialty Start Date End Date Violeta Boo MD [address] [place] [phone] PCP - General Internal Medicine 03/21/23 documented as of this encounter
--- OUTSIDE RECORDS SUMMARY | 2025-03-18 11:46 | XMS_ITS | Encounter Summary ---
Author Organization [employer] Address 75 [facility] 7 [place] [address] Care Team Providers Care Hydraulic Rockbreaker Operator Name Role Phone Violeta Boo MD Primary Care Provide r Reason for Visit * Reason Onset Date Comments Appointment Request 01/29/2025 Encounter Details Date Type Department Care Team ([facility] Contact Info) Description 01/29/2025 Telephone [facility] 230 [place] [address] Violeta Boo MD 230 [place], [place] [phone] Appointment Request Social History Tobacco Use Types [...] on 02/01 and can't walk after surgery. [phone] turkish documented in this encounter Plan of Treatment Upcoming Encounters Date Type Department Care Team (Late st Contact Info) Description 03/26/2025 10:00 AM EDT Office Visit [facility] 230 [place] [address] Violtea Boo MD [address] [place] [address] 06/07/2025 9:30 AM EDT Office Visit [facility] OPTOMETRY [address] [place] [address] Angella Negrete OD 230 [place] [address] documented as of this encounter Visit Diagnoses Not on filedocumented in this encounter Additional Health Concerns Assessment Noted Time PHQ-9 Depression Total Score: 17 024 11:23 AM EDT documented as of this encounter Care Teams Hydraulic Rockbreaker Operator Relationship Specialty Start Date End Date Violeta Boo MD 230 [place] [address] PCP - General Family Medicine 05/21/22 documented as of this encounter
--- OUTSIDE RECORDS SUMMARY | 2025-03-18 11:46 | XMS_ITS | Encounter Summary ---
Author Organization [employer] Address 75 [facility] 7 [place] [address] Care Team Providers Care Nail Puller Name Role Phone Violeta Boo MD Primary Care Provide r Reason for Visit * Reason Onset Date Comments Med Refill 10/25/2024 Encounter Details Date Type Department Care Team ([facility] st Contact Info) Description 10/25/2024 Telephone [facility] [address] [place] [address] Violeta Boo MD 230 [place], [place] [phone] Med Refill Social History Tobacco Use Types [...] Office Visit [facility] 230 [place], [place] [phone] Violeta Boo MD 230 [place], [place] [phone] 06/07/2025 9:30 AM EDT Office Visit [facility] OPTOMETRY [address] [place], [place] [phone] Angella Negrete, OD 230 [place] [address] documented as of this encounter Visit Diagnoses Not on filedocumented in this encounter Additional Health Concerns Assessment Noted Time PHQ-9 Depression Total Score: 17 024 11:23 AM EDT documented as of this encounter Care Teams Nail Puller Relationship Specialty Start Date End Date Violeta Boo MD 230 [place] [address] PCP - General Family Medicine 05/21/22 documented as of this encounter
--- OUTSIDE RECORDS SUMMARY | 2025-03-18 11:46 | XMS_ITS | Encounter Summary ---
Author Organization [facility] Address [address] [place] [address] Phone Care Team Providers Care Cork Compounder Name Role Phone Violeta Boo MD Primary Care Provide r Encounter Details Date Type Department Care Team (Late st Contact Info) Description 12/24/2022 Documentation Only [facility] [address] [place] [address] Jazmin Powell PA Social History Tobacco Use [...] Visit [facility] [address] [place] [address] Shailesh Vallejo MD [address] [place] [address] [place] [phone] documented as of this encounter Visit Diagnoses Not on filedocumented in this encounter Care Teams Cork Compounder Relationship Specialty Start Date End Date Violeta Boo MD [address] [place] [phone] PCP - General Internal Medicine 03/21/23 documented as of this encounter
--- OUTSIDE RECORDS SUMMARY | 2025-03-18 11:46 | XMS_ITS | Encounter Summary ---
Author Organization [employer] Address 75 [facility] 7t [place] [address] Care Team Providers Care Brake Repairer Name Role Phone Violeta Boo MD Primary Care Provide r Encounter Details Date Type Department Care Team ([facility] st Contact Info) Description 11/10/2023 Abstract [facility] [address] [place], [place] [phone] Violeta Boo MD 230 [place] [address] Social History Tobacco Use Types Packs/Day Years [...] Description 03/26/2025 10:00 AM EDT Office Visit [facility] 230 [place] [address] Violeta Boo MD 230 [place] [address] 06/07/2025 9:30 AM EDT Office Visit [facility] OPTOMETRY [address] [place] [address] Caden, Angella, OD 230 [place] [address] documented as of this encounter Visit Diagnoses Not on filedocumented in this encounter Care Teams Brake Repairer Relationship Specialty Start Date End Date Violeta Boo MD [address] [place] [address] PCP - General Family Medicine 05/21/22 documented as of this encounter
--- OUTSIDE RECORDS SUMMARY | 2025-03-18 11:46 | XMS_ITS | Encounter Summary ---
Author Organization [employer] Address 75 [facility] 7t [place] [address] Care Team Providers Care Leak Hunter Name Role Phone Violeta Boo MD Primary Care Provide r Reason for Visit * Reason Comments Med Refill Encounter Details Date Type Department Care Team ([facility] st Contact Info) Description 03/22/2024 Refill [facility] 230 [place] [address] Violeta Boo MD 230 [place] [address] Dermatitis Social History Tobacco Use Types Packs/Day [...] Description 03/26/2025 10:00 AM EDT Office Visit [facility]INE 230 [place] [address] Violeta Boo MD 230 [place] [address] 06/07/2025 9:30 AM EDT Office Visit [facility] OPTOMETRY [address] [place] [address] Caden, Angella, OD 230 [place] [address] documented as of this encounter Visit Diagnoses Diagnosis Dermatitis Contact dermatitis and other eczema, due to unspecified cause documented in this encounter Care Teams Leak Hunter Relationship Specialty Start Date End Date Violeta Boo MD 230 [place] [address] PCP - General Family Medicine 05/21/22 documented as of this encounter
--- OUTSIDE RECORDS SUMMARY | 2025-03-18 11:46 | XMS_ITS | Encounter Summary ---
Author Organization [facility] Address [address] [place] [address] Phone Care Team Providers Care Dipping Machine Operator Name Role Phone Violeta Boo MD Primary Care Provide r Encounter Details Date Type Department Care Team (Late st Contact Info) Description 10/22/2022 Documentation Only [facility] [address] [place] [phone] Jazmin Powell PA Social History Tobacco Use [...] [facility] [address] [place] [address] Shailesh Vallejo MD [address] [place] [address] [place] [phone] documented as of this encounter Visit Diagnoses Not on filedocumented in this encounter Care Teams Dipping Machine Operator Relationship Specialty Start Date End Date Violeta Boo MD [address] [place] [phone] PCP - General Internal Medicine 03/21/23 documented as of this encounter
--- OUTSIDE RECORDS SUMMARY | 2025-03-18 11:46 | XMS_ITS | Encounter Summary ---
Author Organization [employer] Address [address] [facility] 7t [place] [address] Care Team Providers Care Channeler Insole Name Role Phone Violeta Boo MD Primary Care Provide r Encounter Details Date Type Department Care Team ([facility] Contact Info) Description 11/25/2022 Telephone [facility] MEDICINE [address] [place], [place] [phone] Violeta Boo MD [address] [place], [place] [phone] Social History Tobacco Use Types Packs/Day Years [...] Upcoming Encounters Date Type Department Care Team ([facility] Contact Info) Description 03/26/2025 10:00 AM EDT Office Visit [facility] MEDICINE [address] [place], [place] [phone] Violeta Boo MD [address] [place], [place] [phone] 06/07/2025 9:30 AM EDT Office Visit [facility] OPTOMETRY [address] [place] [address] [phone] Angella Negrete, OD [address] [place] [address] documented as of this encounter Visit Diagnoses Not on filedocumented in this encounter Care Teams Channeler Insole Relationship Specialty Start Date End Date Violeta Boo MD [address] [place] [address] PCP - General Family Medicine 05/21/22 documented as of this encounter
--- OUTSIDE RECORDS SUMMARY | 2025-03-18 11:46 | XMS_ITS | Encounter Summary ---
Author Organization [employer] Address [address] [facility] 7[address] [place] [address] Care Team Providers Care Drilling Plant Operator Name Role Phone Violeta Boo MD Primary Care Provide r Encounter Details Date Type Department Care Team (Late st Contact Info) Description 01/23/2025 Telephone [facility] OPTOMETRY [address] [place] [address] Angella Negrete, OD [address] [place] [address] Social History Tobacco Use Types Packs/Day Years [...] Description 03/26/2025 10:00 AM EDT Office Visit [facility] MEDICINE [address] [place] [address] Violeta Boo MD [address] [place] [address] 06/07/2025 9:30 AM EDT Office Visit [facility] OPTOMETRY [address] [place] [address] Caden, Angella, OD [address] [place] [address] documented as of this encounter Visit Diagnoses Not on filedocumented in this encounter Additional Health Concerns Assessment Noted Time PHQ-9 Depression Total Score: 17 024 11:23 AM EDT documented as of this encounter Care Teams Drilling Plant Operator Relationship Specialty Start Date End Date Violeta Boo MD [address] [place] [address] PCP - General Family Medicine 05/21/22 documented as of this encounter
--- OUTSIDE RECORDS SUMMARY | 2025-03-18 11:46 | XMS_ITS | Encounter Summary ---
Author Organization [employer] Address [address] [place] [address] 7t [place] [address] Care Team Providers Care Restaurant Line Cook Name Role Phone Violeta Boo MD Primary Care Provide r Encounter Details Date Type Department Care Team ([facility] Contact Info) Description 08/03/2023 Orders Only [facility] MEDICINE [address] [place] [address] [phone] ProviderLibra MD Social History Tobacco Use Types [...] 03/26/2025 10:00 AM EDT Office Visit [facility] MEDICINE [address] [place], [place] [phone] Violeta Boo MD [address] [place], [place] [phone] 06/07/2025 9:30 AM EDT Office Visit [facility] OPTOMETRY [address] [place] [address] [phone] Angella Negrete, OD [address] [place] [address] documented as of this encounter Procedures Procedure Name Priority Date/Time Associated Diagnosis Comments HM COLONOSCOPY Routine 06/11/2022 documented in this encounter Results * Hm Colonoscopy (06/11/2022) Historical Provider [facility] Final Result documented in this encounter Visit Diagnoses Not on filedocumented in this encounter Care Teams Restaurant Line Cook Relationship Specialty Start Date End Date Violeta Boo MD [address] [place] [address] PCP - General Family Medicine 05/21/22 documented as of this encounter
--- OUTSIDE RECORDS SUMMARY | 2025-03-18 11:46 | XMS_ITS | Encounter Summary ---
Author Organization [facility], Address [address] [place] [address] Phone Care Team Providers Care Level Vial Setter Name Role Phone Violeta Boo MD Primary Care Provide r Encounter Details Date Type Department Care Team (Late st Contact Info) Description 08/27/2024 Documentation Only [facility] [address] [place] [phone] Rowena Knowles [address] [place] [address] Social History Tobacco Use Types [...] Visit [facility] [address] [place] [address] Shailesh Vallejo MD [address] [facility] [place] [phone] documented as of this encounter Visit Diagnoses Not on filedocumented in this encounter Care Teams Level Vial Setter Relationship Specialty Start Date End Date Violeta Boo MD [address] [place] [phone] PCP - General Internal Medicine 03/21/23 documented as of this encounter
--- OUTSIDE RECORDS SUMMARY | 2025-03-18 11:46 | XMS_ITS | Encounter Summary ---
Author Organization [employer] Address [address] [facility] 7t [place] [address] Care Team Providers Care Stave Grader Name Role Phone Violeta Boo MD Primary Care Provide r Reason for Visit * Reason Comments Med Refill Encounter Details Date Type Department Care Team ([facility] st Contact Info) Description 10/21/2024 Refill [facility] MEDICINE [address] [place] [address] Violeta Boo MD [address] [place] [address] Pain Social History Tobacco Use Types Packs/Day [...] Description 03/26/2025 10:00 AM EDT Office Visit [facility] MEDICINE [address] [place] [address] Violeta Boo MD [address] [place] [address] 06/07/2025 9:30 AM EDT Office Visit [facility] OPTOMETRY [address] [place] [address] Caden, Angella, OD [address] [place] [address] documented as of this encounter Visit Diagnoses Diagnosis Pain Generalized pain documented in this encounter Additional Health Concerns Assessment Noted Time PHQ-9 Depression Total Score: 17 024 11:23 AM EDT documented as of this encounter Care Teams Stave Grader Relationship Specialty Start Date End Date Violeta Boo MD [address] [place] [phone] PCP - General Family Medicine 05/21/22 documented as of this encounter
--- OUTSIDE RECORDS SUMMARY | 2025-03-18 11:46 | XMS_ITS ---
Author Name Radha Ayala NP Address [address] [place] [address] Phone [phone] [facility] Care Team Providers Care Insights Manager Name Role Phone Radha Ayala Unavailable [phone] Unavailable Unavailable Unavailable Unavailable Unavailable Unavailable Cristo aGrcia Unavailable [phone] Unavailable Unavailable [phone] Gideon Frost Unavailable [phone] Unavailable Unavailable Unavailable Unavailable Unavailable Unavailable Unavailable Unavailable [phone] WALTRE ROBERT Unavailable [phone] Nirav Anthony Unavailable [phone] Unavailable Unavailable [phone] Unavailable Unavailable [phone] Reason for Referral Not Available Allergies, adverse reactions, alerts Allergen Type Reaction Severity Status Onset Date Aspirin Allergy to substance (disorder) Unknown Active N/A Iodinated Contrast Media Allergy to subs tance (disorder) Unknown Active N/A History of medication use Medication Class Instructions [...] No Data Available Gabapentin 300 mg Cap take 2 capsule by mouth every 8 hours 2022-10-29 No Data Available PEG 3350-KCl-Na Bicarb-NaCl [...] mg Tab TAKE 1 TABLET BY FRANKLIN EVERY MORNING 2022-11-16 No Data Available Methotrexate [...] AREA(S) EVERY MORNING 2022-12-16 No Data Available Boitjcsx-Swzejkpmi-LC [id number] 3 TO 4 DROPS INTO [...] mg Cap TAKE 1 CAPSULE BY MO [facility] AT BEDTIME 2023-05-20 No Data Available Hydrocortisone [...] a day 2024-05-11 No Data Availab le OneTouch Verio Flex System w/Device Kit USE DIRECTED TO TEST BLOOD SUGAR TWICE DAILY 2024-05-11 No Data Available Ezetimibe 10 mg Tab TAKE 1 TABLET BY FRANKLIN TH EVERY MORNING 2024-04-27 No Data Available Clotrimazole 1 % Crm APPLY TOPICALLY TO SKIN AND TOENAILS ONCE DAILY FOR 12 WEEKS 2024-08-07 No Data Available Cyclobenzaprine 5 mg Tab TAKE 1 TABLET B Y MOUTH THREE TIMES DAILY NEEDED FOR MUSCLE SPASMS 2024-08-22 No Data Available calcium 600 mg (as carbonate)-vitamin D3 10 mcg (400 unit) tablet TAKE 1 TABLET BY MOUTH TWICE DAILY IN THE MORNING AND IN THE EVENING 2024-03-07 No Data Available PEG-3350/Electrolytes 236 GM Solution USE DIRECTED BY OFFICE 2024-06-06 No Data Availa ble Clindamycin Phosphate 1 % Gel APPLY TOPICALLY TO THE AFFECTED AREA(S) TWICE DAILY AFTER WASH OF benzoyl peroxide 2025-01-15 No Data Available BP Wash 10 % Liquid APPLY TOPICALLY TO T HE AFFECTED AREA(S) TWICE DAILY DIRECTED, THEN RINSE OFF 2025-01-15 No Data Available Ciclopirox 8 % Solution APPLY OVER NAIL FOLD AND SURROUNDING AREA(S) AT BEDTIME DIRECTED AFTER 7 DAYS MAY REMOVE WITH alcohol AND CONTINUE 2025-01-16 No Data Available oxyCODONE 5 mg Tab TAKE 1 TABLET BY FRANKLIN TH THREE TIMES DAILY NEEDED FOR PAIN (AFTER SURGERY) FOR 4 DAYS 2025-02-01 No Data Available methylPREDNISolone 4 mg Tab Therapy Pack USE DIRECTED ON PACKAGE 2025-02-01 No Data Avail able Problem List Problem Status Onset Date Resolved Date Hemorrhoid Active 2023-04-07 N/A Incontinent of feces Active 2023-04-07 N/A 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;Peripheral vascular disease, unspecified Active 2023-04-12 N/A Chronic gouty arthritis;Generalized osteoarthritis Act rossy 2023-04-07 N/A Chronic diarrhea Active 2023-04-07 N/A At risk for cancerAt risk for colon cancer Active 2023-10-21 N/A Frequent falls Active 2023-04-07 N/A Type 2 diabetes mellitus wit h stage 3b chronic kidney disease, hyperlipidemia, diabetic peripheral angiopathy without gangrene Active 2023-04-07 N/A Morbid obesity Active 2025-02-20 N/A Rheumatoid arthritis without rheumatoid factor, multiple sitesSacroiliitis, not elsewhere classifiedImmunodeficiency due to conditions classified elsewhere Active 2023-04-12 N/A Schizoaffective disorder, depressive type Active 2023-04-12 N/A Chronic obstructive pulmonary disease, unspecified Act rossy 2023-04-13 N/A Chronic bilateral low back p ain with bilateral sciatica;Bulging lumbar disc Active 2023-04-07 N/A Class 3 severe obesity with serious comorbidity and body mass index (BMI) of 50.0 to 59.9 in adult Inactive 2023-04-07 N/A Decreased hearing of left ear,associated w tinnitus Ac tive 2023-04-07 N/A Unspecified atherosclerosis of eyak arteries of extremities, bilateral legs Active 2023-04-13 N/A Hemorrhoids Active 2023-08-10 N/A Onychomycosis Inactive 2023-08-21 N/A Chronic back painLumbar spin al stenosis Somatoform pain disorder Active 2023-10-21 N/A Sensory neuropathy Active 2025-02-18 N/A Other problems related to mo dical facilities and other health care Active 2024-05-12 N/A Mixed stress and urge urinary incontinence Active 2025-02-18 N/A History of fallImpaired gait and mobility Active 2025-02-20 N/A Encounters Encounters Type Facility Date of Service Diagnosis/Co mplaint New patient,40-59min; chronic exacerbation, 2 stable chronic or 1 acute illness add add modifier 95 for video (do not use for phone, instead use 03116-84) [facility], ([place]) 04[place]07/[place]23 Noninfective gastroenteritis and colitis, unspecifiedRepeated [...] sitesSacroiliitis, not elsewhere classifiedAthscl heart disease of eyak cor art w unsp ang pctrsPeripheral vascular disease, unspecified New patient,40-59min; chronic exacerbation, 2 stable chronic or 1 acute illness add add modifier 95 for video (do not use for phone, instead use [id number]) [facility], ([place]) 04/07/2023 New patient,40-59min; chronic exacerbation, 2 stable chronic or 1 acute illness add add modifier 95 for video (do not use for phone, instead use 14669-03) [facility], ([place]) 04[place]07/20[place] New patient,40-59min; chronic exacerbation, 2 stable chronic or 1 acute illness add add modifier 95 for video (do not use for phone, instead use 56435-11) [facility], ([place]) 04[place]07/20[place] New patient,40-59min; chronic exacerbation, 2 stable chronic or 1 acute illness add add modifier 95 for video (do not use for phone, instead use [id number]) [facility], ([place] 04[place]07/2023 New patient,40-59min; chronic exacerbation, 2 stable chronic or 1 acute illness add add modifier 95 for video (do not use for phone, instead use 14943-04) [facility], ([place]) 04/07/2023 New patient,40-59min; chronic exacerbation, 2 stable chronic or 1 acute illness add add modifier 95 for video (do not use for phone, instead use 17608-06) [facility], ([place]) 04/07/2023 New patient,40-59min; chronic exacerbation, 2 stable chronic or 1 acute illness add add modifier 95 for video (do not use for phone, instead use 90320-62) [facility], ([place]) 04/07/2023 New patient,40-59min; chronic exacerbation, 2 stable chronic or 1 acute illness add add modifier 95 for video (do not use for phone, instead use 67475-24) [facility], ([place]) 04/07/2023 Unlisted special service; to be used for medical record reviews and reporting CPTII codes (1111F, etc) [facility], ([place]) 07/01/2023 Other specified counseling Unlisted special service; to be used for medical record reviews and reporting CPTII codes (1111F, etc) [facility], ([place]) 07/01/2023 Unlisted special service; to be used for medical record reviews and reporting CPTII codes (1111F, etc) [facility], ([place]) 07/01/2023 No Data Available [facility] ([place] 08/10/2023 Body mass index (BMI) 45.0-4 9.9, adultPrediabetesMorbid (severe) obesity due to excess caloriesTinea unguiumLumbago with sciatica, left sideLumbago with sciatica, right sideOther chronic painOther intervertebral disc degeneration, lumbar region No Data Available [facility], ([place]) 08/10/2023 No Data Available [facility], ([place]) 08/10/2023 No Data Available [facility] 10/21/2023 Dorsalgia, unspecifiedOther chronic painMorbid (severe) obesity due to excess caloriesOther specified personal risk factors, not elsewhere classified No Data Available [facility], ([place]) 10/21/2023 Estab. patient 30-39min; chronic exacerbation, 2 stable chronic or 1 acute illness add add modifier 95 for video, (do not use for phone, instead use 98954-96) [facility], ([place]) 05/11/2024 Type 2 diabetes mellitus wit h diabetic chronic kidney diseaseChronic kidney disease, stage 3bRepeated fallsUnspecified hearing loss, left earTinnitus, left earUnspecified hemorrhoidsOther specified postprocedural statesLumbago with sciatica, left sideLumbago with sciatica, right sideOther chronic painOther intervertebral disc degeneration, lumbar regionIdiopathic chronic gout, unspecified site, without tophus (tophi)Polyosteoarthritis, unspecifiedSchizophrenia, unspecifiedAthscl heart disease of eyak cor art w unsp ang pctrsType 2 diabetes w diabetic peripheral angiopath w/o gangreneUnsp athscl eyak arteries of extremities, bilateral legsChronic obstructive pulmonary [...] (do not use for phone, instead use 96903-48) [facility], ([place]) 05/11/2024 Estab. patient 30-39min; chronic exacerbation, 2 stable chronic or 1 acute illness add add modifier 95 for video, (do not use for phone, instead use 81501-43) [facility], ([place]) 05/11/2024 Estab. patient 30-39min; chronic exacerbation, 2 stable chronic or 1 acute illness add add modifier 95 for video, (do not use for phone, instead use 62497-86) [facility], ([place]) 05/11/2024 Estab. patient 30-39min; chronic exacerbation, 2 stable chronic or 1 acute illness add add modifier 95 for video, (do not use for phone, instead use 52668-87) [facility], ([place]) 05/11/2024 Estab. patient 30-39min; chronic exacerbation, 2 stable chronic or 1 acute illness add add modifier 95 for video, (do not use for phone, instead use 16355-71) [facility], ([place]) 05/11/2024 Estab. patient 30-39min; chronic exacerbation, 2 stable chronic or 1 acute illness add add modifier 95 for video, (do not use for phone, instead use 98061-76) [facility], ([place]) 05/11/2024 No Data Available [facility], ([place]) 05/14/2024 Type 2 diabetes mellitus wit h diabetic chronic kidney diseaseChronic kidney disease, stage 3b No Data Available [facility], ([place]) 05/14/2024 No Data Available [facility], ([place]) 06/20/2024 Type 2 diabetes mellitus wit h diabetic chronic kidney diseaseChronic kidney disease, stage 3b No Data Available [facility], ([place]) 06/20/2024 Unlisted special service; to be used for medical record reviews and reporting CPTII codes (1111F, etc) [facility] ([place]) 09/04/2024 Other specified counseling Unlisted special service; to be used for medical record reviews and reporting CPTII codes (1111F, etc) [facility] ([place]) 09/04/2024 Unlisted special service; to be used for medical record reviews and reporting CPTII codes (1111F, etc) [facility], ([place] 09/04/20[place] Estab. patient 10-29min; 1 minor problem; add add modifier 95 for video, modifier 93 for phone [facility] 12/18/2024 Type 2 diabetes mellitus wit h diabetic chronic kidney diseaseChronic kidney disease, stage 3bMorbid (severe) obesity due to excess caloriesBody mass index (bmi) 50-59.9 , adult Estab. patient 10-29min; 1 minor problem; add add modifier 95 for video, modifier 93 for phone [facility] 12/18/20[place] Estab. patient 10-29min; 1 minor problem; add add modifier 95 for video, modifier 93 for phone [facility] 12/18/2024 Estab. patient 20-29min; 1 stable chronic or 2 minor; add add modifier 95 for video, modifier 93 for phone [facility] ([place] 02/18/2025 Noninfective gastroenteritis and colitis, unspecifiedRepeated fallsUnspecified hearing loss, left earTinnitus, left earType 2 diabetes mellitus with diabetic chronic kidney diseaseChronic kidney disease, stage 3bType 2 diabetes mellitus with other specified complicationHyperlipidemia, unspecifiedType 2 diabetes w diabetic peripheral angiopath w/o gangreneLumbago with sciatica, left sideLumbago with sciatica, right sideOther intervertebral disc degeneration, lumbar region without mention of lumbar back pain or lower extremity painIdiopathic chronic gout, unspecified site, without tophus (tophi)Polyosteoarthritis, unspecifiedSchizoaffective disorder, depressive typeRheumatoid arthritis without rheumatoid factor, multiple sitesSacroiliitis, not elsewhere classifiedImmunodeficiency due to conditions classified elsewhereAthscl heart disease of eyak cor art w unsp ang pctrsPeripheral vascular disease, unspecifiedUnsp athscl eyak arteries of extremities, bilateral legsChronic obstructive pulmonary disease, unspecifiedUnspecified hemorrhoidsHistory of fallingOther abnormalities of gait and mobilityOther problems related to medical facilities and other health carePain disorder exclusively related to psychological factorsDorsalgia, unspecifiedOther chronic painSpinal stenosis, lumbar region without neurogenic claudicationOther specified personal risk factors, not elsewhere classifiedPolyneuropathy, unspecifiedMixed incontinenceMorbid (severe) obesity due to excess caloriesBody mass index (BMI) 40.0-44.9, adult Estab. patient 20-29min; 1 stable chronic or 2 minor; add add modifier 95 for video, modifier 93 for [facility], ([place]) 02/18/2025 Estab. patient 20-29min; 1 stable chronic or 2 minor; add add modifier 95 for video, modifier 93 for [facility], ([place]) 02/18/2025 Estab. patient 20-29min; 1 stable chronic or 2 minor; add add modifier 95 for video, modifier 93 for [facility], ([place]) 02/18/2025 Estab. patient 20-29min; 1 stable chronic or 2 minor; add add modifier 95 for video, modifier 93 for [facility], ([place]) 02/18/2025 Estab. patient 20-29min; 1 stable chronic or 2 minor; add add modifier 95 for video, modifier 93 for [facility], ([place]) 02/18/2025 Estab. patient 20-29min; 1 stable chronic or 2 minor; add add modifier 95 for video, modifier 93 for phone [facility], ([place]) 02/18/2025 Estab. patient 20-29min; 1 stable chronic or 2 minor; add add modifier 95 for video, modifier 93 for phone [facility], ([place]) 02/18/2025 Vital Signs Date of Collection Vitals 2023-04-07 [...] dy Mass Index (BMI) - 51.02 kg/m2 2025-02-18 08:13:53 Height - 162.56 cmWe ight - 116.12 kgBody Mass Index (BMI) - 43.94 kg/m2 Social History Social History Social History Observation Description Effec tive Time Current Smoking Status Never smoker 5 Sex Female Gender identity Woman History of Procedures Procedures Service Procedure code Service date Servicing provider Phone# New patient,40-59min; chronic exacerbation, 2 stable chronic or 1 acute illness add add modifier 95 for video (do not use for phone, instead use 19098-25) [id number] 2023-04-07 No Data Available No Data Availa [...] reviews and reporting CPTII codes (1111F, etc) 47938 2023-07-01 No Data Available No Data Availa ble SBP < 130 (3074F) 3074F 2023-07-01 No Data Available No Data Available DBP <80 (3078F) 3078F 2023-07-01 No Data Available No Data Available No Data Available 16888 2023-08-10 No Data Available No Data Available Medication List Documented (1159F) 1159F 2023-08-10 No Data Available No Data Lena ilable BMI obtained (3008F) 3008F 2023-08-10 No Data Availab le No Data Available No Data Available 40177 2023-10-21 No Data Available No Data Available Medication List Documented (1159F) 1159F 2023-10-21 No Data Available No Data Lena ilable Estab. patient 30-39min; chronic exacerbation, 2 stable chronic or 1 acute illness add add modifier 95 for video, (do not use for phone, instead use 04683-30) 05270 2024-05-11 No Data Available No Data Availa [...] Available No Data Available No Data Available 54974 2024-05-14 No Data Available No Data Available Medication List Documented (1159F) 1159F 2024-05-14 No Data Available No Data Lena ilable No Data Available [id number] 2024-06-20 No Data Available No Data Available Medication List Documented (1159F) 1159F 2024-06-20 No Data Available No Data Lena ilable Unlisted special service; to be used for medical record reviews and reporting CPTII codes (1111F, etc) 85534 2024-09-04 No Data Available No Data Availa ble SBP >= 140 3077F 2024-09-04 No Data Available No Data Available DBP >=90 3080F 2024-09-04 No Data Available No Data Available Estab. patient 10-29min; 1 minor problem; add add modifier 95 for video, modifier 93 for phone [id number] 2024-12-18 No Data Available No Data Availa ble Medication List Documented (1159F) 1159F 2024-12-18 No Data Available No Data Lena ilable BMI obtained (3008F) 3008F 2024-12-18 No Data Availab le No Data Available Estab. patient 20-29min; 1 stable chronic or 2 minor; add add modifier 95 for video, modifier 93 for phone [id number] 2025-02-18 No Data Available No Data Availa ble Medication List Documented (1159F) 1159F 2025-02-18 No Data Available No Data Lena ilable Medication Review by prescribing provider or pharmacist documented (1160F) 1160F 2025-02-18 No Data Available No Data Lena ilable Functional Status Assessed (1170F) 1170F 2025-02-18 No Data Available No Data Avail able Advance Care Directive Advance care planning discussion documented in the medical record (1158F) 1158F 2025-02-18 No Data Available No Data Availa ble Advance care planning discussed and documented ? advance care plan or surrogate decision-maker was documented in the medical record. (1123F) 1123F 2025-02-18 No Data Available No Data Availa ble Pain Assessment - Pain Documented on a Pain Scale (1125F) 1125F 2025-02-18 No Data Available No Data Lena ilable BMI obtained (3008F) 3008F 2025-02-18 No Data Availab le No Data Available Functional Status Functional Category Effective Dates ADL: Bathing: Needs assistan ceDressing: Needs assistanceEating: IndependentAmbulation: Needs assistanceTransferring: Needs assistanceToileting: Needs assistanceIADL: Medication: Needs AssistanceMeal Prep: Needs AssistanceShopping: Needs AssistanceHousekeeping: Needs AssistanceFalls in last 6 Months: Yes 2023-04-07 DME: walker. 2025-02-18 Mental Status Status Date AOx3 2025-02-18 Assessments Date of Service Assessments 2023-04-07 13:01:17 Chronic diarrheaFreq uent fallsDecreased hearing of left ear,associated w tinnitusHemorrhoidIncontinent of fecesSevere obesity (BMI >= 40)Hx of abdominal surgeryPrediabetesStage 3b chronic kidney disease (CKD)Chronic bilateral low back pain with bilateral sciatica;Bulging lumbar discSeborrheic dermatitisChronic gouty arthritis;Generalized osteoarthritisSchizophreniaRheumatoid arthritis without rheumatoid factor, multiple sitesAtherosclerotic heart disease of eyak coronary artery with unspecified angina pectoris;Peripheral vascular [...] discChronic gouty arthritis;Generalized osteoarthritisSchizophreniaAtherosclerotic heart disease of eyak coronary artery with unspecified angina pectoris;Peripheral vascular disease, unspecifiedUnspecified atherosclerosis of eyak arteries of extremities, bilateral legsChronic obstructive pulmonary [...] (BMI) of 50.0 to 59.9 in adult 2025-02-18 08:13:53 Other problems relat ed to medical facilities and other health careChronic diarrheaFrequent fallsDecreased hearing of left ear,associated w tinnitusType 2 diabetes mellitus with stage 3b chronic kidney disease, hyperlipidemia, diabetic peripheral angiopathy without gangreneChronic bilateral low back pain with bilateral sciatica;Bulging lumbar discChronic gouty arthritis;Generalized osteoarthritisSchizoaffective disorder, depressive typeRheumatoid arthritis without rheumatoid factor, multiple sitesSacroiliitis, not elsewhere classifiedImmunodeficiency due to conditions classified elsewhereAtherosclerotic heart disease of eyak coronary artery with unspecified angina pectoris;Peripheral vascular disease, unspecifiedUnspecified atherosclerosis of eyak arteries of extremities, bilateral legsChronic obstructive pulmonary disease, unspecifiedHemorrhoidsChronic back painLumbar spinal stenosis Somatoform pain disorderAt risk for cancerAt risk for colon cancerSensory neuropathyMixed stress and urge urinary incontinenceHistory of fallImpaired gait and mobilityMorbid obesity Plan of Care Date of Service Plans [...] Documented (1125F)Continue to see PCP. Follow-up with [facility] as [...] for weight clinic - also endocr for [facility] MASending to podiatry per pt request.Also needs [...] area that had available staff.Pt to call [facility] and get name of PT providers in her area that are covered.Will investigate weight loss clinics.Pt to look for back exercises on YouTube, activity as tolerated.Will FU.BMI 49.25send to weight clinic but not [place]referral for weight clinic - also endocr for [facility] [place]10/21/2023Have not been able to find clinic that is covered by [facility] in er area. Pt to call [facility] and find list of names of [...] portal notes, I70.203 - Unspecified atherosclerosis of eyak arteries of extremities, bilateral legs continues to take albuterol sulfatePlease call CB ifIncreased SOB,or if patient falls.Pain that radiates to vaginaHas seen PCPhas referral to GI but is going to cancelEd not to cancel, get transportBMI 52.08send to weight clinic but not [place] for weight clinic [place] [facility] [place] not been able to find clinic that is covered by [facility] in er area. Pt to call [facility] and find list of names of [...] area that had available staff.Pt to call [facility] and get name of PT providers [...] modifier 95)Continue to see PCP. Follow-up with [facility] as needed for any acute or [...] our conversation of three days ago. 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 Follow-up with [facility] as needed for any acute or [...] our conversation of three days ago. 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 She will be traveling to [place] so she is to ask for emergency traveling supply, which won't be much as she will be back july.Refilled w instructions to pharmacy.Will FU after . 2024-12-18 08:09:04 Estab. patient 10-29 min; 1 minor problem; add add modifier 95 for video, modifier 93 for phoneContinue to see PCP. Follow-up with [facility] as needed for any acute or disease education needs that may arise 06/06.Record does mention DM2 w 3b CKDA1C 5.19 February 2023 m- will look for more recentGFR 35, Creatinine 1.46, Marchatient is unaware, believes her kidneys are fine.Will educate further at avoid nephrotoxic medicationsInsists her sugars are good; however, also reports frequent urination. Unclear what became of endo referral. Prescribing zzempic, for DM and for weight loss.Will FU Tuesday.4Continues to c/o frequent urination. HAS NOT PICKED UP OZEMPIC NOR HER GLUCOMETER. What's more, hardly remembers details of our conversation of three days ago. 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 She will be traveling to [place] so she is to ask for emergency traveling supply, which won't be much as she will be back july.Refilled w instructions to pharmacy.Will FU after mid.2..25reports using ozempic since 04/2024followed by PCP q [...] for weight clinic [place] [facility] [place]Have not been able to find clinic that is covered by [facility] in er area. Pt to call [facility] and find list of names of clinics.Will FU.12/18/24will f/u with PCP re refilling ozempic and contiue to monitor labs q 3 months 2025-02-18 08:13:53 Functional Status As sessed (1170F)Advance Care Directive Advance care planning discussion documented in the medical record (1158F)Advance care planning discussed and documented ? advance care plan or surrogate decision-maker was documented in the medical record. (1123F)Estab. patient 20-29min; 1 stable chronic or 2 minor; add add modifier 95 for video, modifier 93 for phoneMedication List Documented (1159F)Medication Review by prescribing provider or pharmacist documented (1160F)Pain Assessment - Pain Documented on a Pain Scale (1125F)BMI obtained (3008F)Continue to see PCP. Follow-up with [facility] as needed for any acute or disease education needs that may arise.PSYCH CONTINGENCY PLANLast updated: 02/18/2025Schizoaffective DisorderMember to call for the following symptoms: Anxiety/ Hallucinations/ Mistrust / inability to relax/ Restlessness/ Worsening paranoia or delusions??Planned intervention: Contact support person: son / Transfer member to [address] [place] [address]/ Quetiapine 50mg PO q12h PRN agitation/ Remind member of breathing exercises/ Encourage member to journal feelings/ Limit extra stimulationAlmost every dayTrial of cutting out dairy.Pharm doc consulted re meds - there appear to be no obvious culprits among meds.Trips over herself or feet are not strong enough.Falls almost every day, seven times these past six days.Sending a shower chairStablehx of otitis externaSend to ENTCN to assistStableAtorvastatin, Ezetimibe Record does mention DM2 w 3b CKDA1C 5.19 February 2023 m- will look for more recentGFR 35, Creatinine 1.46, Marchatient is unaware, believes her kidneys are fine.Will educate further at FUavoid nephrotoxic medicationsFalls frequently.Ed re caution, using DMEs.Will FU re pain and walking. 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, encourage hand washing, avoid large crowds, stay up to date on vaccines (annual flu), monitor for and report early any s/s of infectionAtorvastatinExtensive ed re weight lossWill be sending to endo/weight loss clinicStablestatinPR portal notes, I70.203 - Unspecified atherosclerosis of eyak arteries of extremities, bilateral legs Stablealbuterol sulfateMonitor for s/sx of respiratory distress and continue with PCP.StableDenies recent painContinue monitoring with PCP.Previous:Pain that radiates to vaginaHas seen PCPhas referral to GI but is going to cancelEd not to cancel, get transportStableOTC medicationsROM exercises, heat therapy and continue monitoring with PCP. Previous: 02/20/25back surgery 02/01/25- Dr. Jean Sousa f/u with surgeon PRN reports last fall one week agoPt reports her mother of melanoma, various siblings [...] is already managing the situation.Will F/U.Will reassure pt.StableGabapentinFall risk precautions and continue with PCP.StableUses adult pullups Size: XL (5 per day)Gloves: LargeWipes: 4 packs monthly Monitor for urinary changes or UTI s/sx and continue with PCP.StableReports recent fall last week, denies injuryReports that previous walker is broken Fall risk precautions and continue f/u care with PCP.New walker orderedStableBMI: 43.94Dietary and lifestyle interventions and continue with PCP. Goals Date Goal 2025-02-18 Remember to adhere d ietary and lifestyle interventions as discussed. 2025-02-18 Continue taking medi cations as prescribed and f/u care and monitoring with PCP every 3-6 months. 2025-02-18 Contact us if develo ping falls, HHS, DKA, cardiac s/sx, SOB, or health-related concerns. Health Concerns Date Concern 2025-02-18 Visit completed usin g audio/video.Patient/Guardian agreed to visit via telehealth. Today, patient has chief complaint of: follow up care and comprehensive review.Reviewed Allergies, Medications, Active Medical conditions, past medical/surgical history, Social history. 2025-02-18 Full Code - HCP Son Ruddy Paredes. ACP: no. 2025-02-18 Most recent hospital stay(s) or ER visit(s) and precipitating factors: denies in the last month. 2025-02-18 Informed verbal cons ent was obtained from this patient to communicate and provide care using virtual and other telecommunications tools. This patient has been explained the risks, if any, related to the encounter. I explained that care provided through video or audio communication cannot replace the need for physical examination or an in-person visit for some disorders or urgent problems.
--- OUTSIDE RECORDS SUMMARY | 2025-03-18 11:46 | XMS_ITS | Encounter Summary ---
Author Organization [facility] Address [address] [place] [address] Phone Care Team Providers Care Forms Examiner Name Role Phone Violeta Boo MD Primary Care Provide r Encounter Details Date Type Department Care Team (Late st Contact Info) Description 03/22/2023 Documentation Only [facility] [address] [place] [phone] Jazmin Powell PA Social History Tobacco Use [...] [facility] [address] [place] [phone] Shailesh Vallejo MD [address] [place] [address] [place] [phone] documented as of this encounter Visit Diagnoses Not on filedocumented in this encounter Care Teams Forms Examiner Relationship Specialty Start Date End Date Violeta Boo MD [address] [place] [phone] PCP - General Internal Medicine 03/21/23 documented as of this encounter
--- OUTSIDE RECORDS SUMMARY | 2025-03-18 11:46 | XMS_ITS | Encounter Summary ---
Author Organization [employer] Address [address] [facility] 7t [place] [address] Care Team Providers Care Aurist Name Role Phone Violeta Boo MD Primary Care Provide r Reason for Visit * Reason Onset Date Comments Referral 12/08/2022 Encounter Details Date Type Department Care Team ([facility] st Contact Info) Description 12/08/2022 Telephone [facility] [address] [place] [address] Violeta Boo MD [address] [place] [address] Referral Social History Tobacco Use Types Packs/Day [...] Navarro - 12/08/2022 2:55 PM EST Rufino aPgan with [facility] requesting a new referral for colorectal Surgery at [address] [place] [address] [place] [address]. Ej stated that a provider from their got in contact With Dr. Berkowitz, and Dr. Berkowitz advised provider that it okay for pt to receive a referral. They are now requesting a new referral from PCP, in order for pt to be ssen. If any question please contact bill at [phone] documented in this encounter Plan of Treatment Upcoming Encounters Date Type Department Care Team (Late st Contact Info) Description 03/26/2025 10:00 AM EDT Office Visit [facility] [address] [place] [address] Violeta Boo MD [address] [place] [address] 06/07/2025 9:30 AM EDT Office Visit [facility] OPTOMETRY [address] [place] [address] Angella Negrete, OD [address] [place] [address] documented as of this encounter Visit Diagnoses Not on filedocumented in this encounter Care Teams Aurist Relationship Specialty Start Date End Date Violeta Boo MD [address] [place] [address] PCP - General Family Medicine 05/21/22 documented as of this encounter
--- OUTSIDE RECORDS SUMMARY | 2025-03-18 11:46 | XMS_ITS | Encounter Summary ---
Author Organization [facility], Address [address] [place] [address] Phone Care Team Providers Care Clinical Coordinator Name Role Phone Violeta Boo MD Primary Care Provide r Encounter Details Date Type Department Care Team (Late st Contact Info) Description 05/05/2022 Documentation Only [facility] [address] [place] [address] Shailesh Vallejo MD [address] [place] [address] [place] [address] Social History Tobacco Use Types [...] Visit [facility] [address] [place] [address] Shailesh Vallejo MD [address] [place] [address] [place] [address] documented as of this encounter Visit Diagnoses Not on filedocumented in this encounter Care Teams Clinical Coordinator Relationship Specialty Start Date End Date Violeta Boo MD [address] [place] [phone] PCP - General Internal Medicine 03/21/23 documented as of this encounter
--- OUTSIDE RECORDS SUMMARY | 2025-03-18 11:46 | XMS_ITS | Encounter Summary ---
Author Organization [employer] Address [address] [facility] 7t [place] [address] Care Team Providers Care Echo Vascular Tech Name Role Phone Violeta Boo MD Primary Care Provide r Reason for Visit * Reason Onset Date Comments Appointment Request 11/11/2023 Encounter Details Date Type Department Care Team ([facility] Contact Info) Description 11/11/2023 Telephone [facility] MEDICINE [address] [place] [address] Violeta Boo MD [address] [place], [place] [phone] Appointment Request Social History Tobacco Use Types [...] on 11/16/23 due to being covid positive procedure writer did cancel appt documented in this encounter Plan of Treatment Upcoming Encounters Date Type Department Care Team (Late st Contact Info) Description 03/26/2025 10:00 AM EDT Office Visit [facility] MEDICINE [address] [place] [address] Violeta Boo MD [address] [place] [address] 06/07/2025 9:30 AM EDT Office Visit [facility] OPTOMETRY [address] [place] [address] Caden, Angella, OD [address] [place] [address] documented as of this encounter Visit Diagnoses Not on filedocumented in this encounter Care Teams Echo Vascular Tech Relationship Specialty Start Date End Date Violeta Boo MD [address] [place] [address] PCP - General Family Medicine 05/21/22 documented as of this encounter
--- OUTSIDE RECORDS SUMMARY | 2025-03-18 11:46 | XMS_ITS | Clinical Summary ---
Author Organization [facility], Address [address] [place] [address] [place] [address] Phone Care Team Providers Care Guard Rail Installer Name Role Phone Violeta Boo MD [...] Diagnosed Date Resolved Date Gout 02/12/2020 06/15/2021 care home use of nonsteroida l antiinflammatories 02/12/2020 06/15/2021 Encounters Date Type Department Care Team Description 03/18/2025 Orders Only [facility], [address] [place] [address] Shailesh Vallejo MD Stage 3b chronic kidney disease (HCC) (Primary Dx); Essential (primary) hypertension; Type 2 diabetes mellitus, not otherwise specified (HCC); Hypervolemia; Anemia in chronic kidney disease from Last 3 Months Immunizations Immunization Administration Dates Next Due Influenza Split 08/01/2013,10/23/2012 [...] Visit [facility], [address] [place] [address] Shailesh Vallejo MD [address] [facility] [place] [address] Health Maintenance Due Date Last Done Comments [...] , 03/12/2022, Additional history exists Pneumococcal Vaccine: 50+ Years Completed 08/13/2024, 03/19/2019, 12/12/2017, Additional history exists Pneumococcal Vaccine: Peds (0 to 5 Years) and At-Risk Patients (6 to 49 Years) Discontinued 08/13/2024, 03/19/2019, 12/12/2017, Additional history exists Hepatitis [...] AM EST) Hemoglobin A1C 7.1(H) (4.0-5.6) % [facility] Comment: MONITORING: In known diabetic patients, hemoglobin A1c targets should be discussed with health care provider. DIAGNOSTIC USE: ??The [place] Diabetes Association (ADA) and the World Health [...] Supplement 1 Testing performed or reported by [facility], a Service of [facility], [address] [place] [address] Yana Bales MD, Assembly Operator [facility]# [id number] Blood (Blood, Venous) 10/20/2022 9:21 AM EST 10/20/2022 9:22 AM EST us Shailesh Vallejo MD LAB BLOOD ORDERABLES Final Resul t [facility] from Last 3 Months or Most Recently Relevant to Health Maintenance Insurance [facility] ([id number]) Care Teams Guard Rail Installer Relationship Specialty Start Date End Date Violeta Boo MD [address] [place] [phone] PCP - General Internal Medicine 03/21/23
--- OUTSIDE RECORDS SUMMARY | 2025-03-18 11:46 | XMS_ITS | Encounter Summary ---
Author Organization [employer] Address [address] [facility] 7t [place] [address] Care Team Providers Care Plater Supervisor Name Role Phone Violeta Boo MD Primary Care Provide r Reason for Visit * Reason Comments Med Refill Encounter Details Date Type Department Care Team ([facility] st Contact Info) Description 11/18/2022 Refill [facility] [address] [place] [address] Betsy Simmons CNM [address] [place] [address] Social History Tobacco Use Types Packs/Day Years [...] No answer, left V/M. Will retask to [facility] for second attempt * Telephone Encounter [...] Description 03/26/2025 10:00 AM EDT Office Visit [facility] MEDICINE [address] [place], [place] [phone] Violeta Boo MD [address] [place], [place] [phone] 06/07/2025 9:30 AM EDT Office Visit [facility] OPTOMETRY [address] [place] [address] Angella Negrete, OD [address] [place], [place] [phone] documented as of this encounter Visit Diagnoses Not on filedocumented in this encounter Care Teams Plater Supervisor Relationship Specialty Start Date End Date Violeta Boo MD [address] [place], [place] [phone] PCP - General Family Medicine 05/21/22 documented as of this encounter
[2025-03-18 11:59] LABS: Anion Gap 13 (12-20); Blood Urea Nitrogen 27 mg/dL (9-16); Calcium 9.2 mg/dL (8.4-10.2); Carbon Dioxide 28 mmol/L (22-29); Chloride 106 mmol/L (96-108); Estimated Glomerular Filt Rate 41; Iron 50 mcg/dL (30-160); Percent Iron Saturation 16 % (15-50); Potassium 3.7 mmol/L (3.3-5.1); Sodium 143 mmol/L (135-145); Total Iron Binding Capacity 306 mcg/dL (228-428); Unsaturated Iron Binding 256 ug/dL
[2025-03-18 12:03] LABS: Parathyroid Hormone Intact 125.8 pg/mL (8.7-77.1)
[2025-03-18 12:19] LABS: Ferritin 236 ng/mL (10-250)
[2025-03-18 12:43] LABS: Appearance Urine Clear; Color Urine Yellow; Glucose Urine UA Negative (Negative); Leukocyte Esterase Urine Negative (Negative); Nitrite Urine Negative (Negative); PH 5.5 (5.0-9.0); Specific Gravity - Urine 1.015 (1.005-1.025); Urine Blood Negative (Negative); Urine Ketones Negative (Negative); Urine Protein Negative (Neg-Trace)
[2025-03-18 12:59] LABS: Creatinine Urine 121.35 mg/dL; Total Protein Urine Random < 7 mg/dL (<12)
[2025-03-18 13:05] LABS: Bacteria Urine 3+ (None Seen); Hyaline Casts Urine 0-2 /LPF (0-2); RBC Urine 0-2 /HPF (0-2); WBC Urine 0-5 /HPF (0-5)
== END 2025-03-18 10:25 | disposition home or self-care (01) ==
LOC: HO.LAB 10:24
PROVIDERS: PCP Internal Medicine; Visit Provider Internal Medicine Nephrology
DX: N18.32 Chronic kidney disease, stage 3b (principal); I10 Essential (primary) hypertension; E11.9 Type 2 diabetes mellitus without complications; E87.70 Fluid overload, unspecified; D63.1 Anemia in chronic kidney disease
CPT/HCPCS: 36415; 80051; 81001; 82306; 82310; 82565; 82570; 82728; 83540; 83970; 84156; 84520; 85025

== ENCOUNTER → 2025-03-19 09:15 | Outpatient (BNV) | payer OTHER, SELFPAY | PROVIDERS: PCP Internal Medicine; Visit Provider Radiology Diagnostic Radiology | DX: E28.39 Other primary ovarian failure (principal) | CPT/HCPCS: 77080 ==

== ENCOUNTER 2025-03-19 09:34 | Outpatient (REF) | payer OTHER, SELFPAY ==
--- NOTE | ~2025-03-19 | MM_ITS ---
EXAMINATION: DXA BONE DENSITY AXIAL HISTORY: L40.50 - Arthropathic psoriasis, unspecified TECHNIQUE: [employer] Dual energy absorptiometry (DEXA) of the lumbar spine, total left hip, and femoral neck was performed. COMPARISON: Comparison is made with the prior examination dated 06/25/2022. FINDINGS: The bone mineral density of the lumbar spine is 1.263 with a T-score of 0.8, and a Z-score of 1.3. This is indicative of normal bone mineral density. This represents a BMD change of 10.9% compared to the prior exam. This is statistically significant. The bone mineral density of the left total hip is 0.913 with a T-score of -0.8, and a Z-score of 0.0. This is indicative of normal bone mineral density. This represents a BMD change of -6.6% compared to the prior exam. This is statistically significant. The bone mineral density of the left femoral neck is 0.834 with a T-score of -1.5, and a Z-score of -0.4. This is indicative of osteopenia. This represents a BMD change of -3.5% compared to the prior exam. FRACTURE RISK: The FRAX index suggests a ten year probability of major osteoporotic fracture of 5.1%, and of hip fracture 0.8%. MM/XR DEXA axial skeleton IMPRESSION: Based on bone mineral density, and according to World Health Organization (WHO) criteria, the diagnosis is consistent with osteopenia. All bone density values are in grams per centimeter squared (g/cm2). Statistically, 68% of repeat scans fall within 1 SD (+/- 0.010 g/cm2 for AP spine L1-L4) and 1 SD (+/- 0.012 g/cm2 for femur total) FRAX is a trademark of the [employer] [place] for Metabolic Bone Disease, a World Health Organization (WHO) Collaborating Center. Electronically signed by: Carlos Eduardo Weathers MD 03/19/2025 11:56 AM EDT
--- OUTSIDE RECORDS SUMMARY | 2025-03-19 10:33 | XMS_ITS | Encounter Summary ---
Author Organization [facility], Address [address] [place] [address] Phone Care Team Providers Care Planning Manager Name Role Phone Violeta Boo MD Primary Care Provide r Encounter Details Date Type Department Care Team (Late st Contact Info) Description 03/15/2022 Documentation Only [facility] [address] [place] [address] Shailesh Vallejo MD [address] [place] [address] [place] [address] Social History Tobacco Use Types [...] Visit [facility] [address] [place] [address] Shailesh Vallejo MD [address] [place] [address] [place] [address] documented as of this encounter Visit Diagnoses Not on filedocumented in this encounter Care Teams Planning Manager Relationship Specialty Start Date End Date Violeta Boo MD [address] [place] [phone] PCP - General Internal Medicine 03/21/23 documented as of this encounter
--- OUTSIDE RECORDS SUMMARY | 2025-03-19 10:33 | XMS_ITS | Encounter Summary ---
Author Organization [facility] Address [address] [place] [address] Phone Care Team Providers Care Blockman Name Role Phone Violeta Boo MD Primary Care Provide r Encounter Details Date Type Department Care Team (Late st Contact Info) Description 12/24/2022 Documentation Only [facility] [address] [place] [phone] Jazmin Powell PA Social History Tobacco Use [...] Visit [facility] [address] [place] [place] [address] Shailesh Vallejo MD [address] [place] [address] [place] [phone] documented as of this encounter Visit Diagnoses Not on filedocumented in this encounter Care Teams Blockman Relationship Specialty Start Date End Date Violeta Boo MD [address] [place] [phone] PCP - General Internal Medicine 03/21/23 documented as of this encounter
--- OUTSIDE RECORDS SUMMARY | 2025-03-19 10:33 | XMS_ITS | Encounter Summary ---
Author Organization [facility] Address [address] [place] [address] Phone Care Team Providers Care Purchasing Officer Name Role Phone Violeta Boo MD Primary Care Provide r Encounter Details Date Type Department Care Team (Late st Contact Info) Description 2022 Office Communication [facility] [address] [place] [address] Shailesh Vallejo MD [address] [place] [address] [place] [address] Social History Tobacco Use Types [...] Visit [facility] [address] [place] [address] Shailesh Vallejo MD [address] [place] [address] [place] [address] documented as of this encounter Visit Diagnoses Not on filedocumented in this encounter Care Teams Purchasing Officer Relationship Specialty Start Date End Date Violeta Boo MD [address] [place] [phone] PCP - General Internal Medicine 03/21/23 documented as of this encounter
--- OUTSIDE RECORDS SUMMARY | 2025-03-19 10:33 | XMS_ITS ---
Author Name Radha Ayala NP Address [address] [place] [address] Phone [phone] [facility] Care Team Providers Care Quilt Stuffer Name Role Phone Radha Ayala Unavailable [phone] Unavailable Unavailable Unavailable Unavailable Unavailable Unavailable Cristo Garcia Unavailable [phone] Unavailable Unavailable [phone] Gideon Frost Unavailable [phone] Unavailable Unavailable Unavailable Unavailable Unavailable Unavailable Unavailable Unavailable [phone] WALTER ROBERT Unavailable [phone] Nirav Anthony Unavailable [phone] Unavailable Unavailable [phone] Unavailable Unavailable [phone] Reason for Referral Not Available Allergies, adverse [...] AREA(S) EVERY MORNING 2022-12-16 No Data Available Tousdztg-Explsvpzx-QA 3.5-49335-[address] 3 TO 4 DROPS INTO [...] mg Cap TAKE 1 CAPSULE BY [facility] AT BEDTIME 2023-05-20 No Data Available [...] 2023-04-07 N/A 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;Peripheral vascular [...] Ac tive 2023-04-07 N/A Unspecified atherosclerosis of [place] arteries of extremities, bilateral legs Active 2023-04-13 N/A Hemorrhoids Active 2023-08-10 N/A Onychomycosis Inactive 2023-08-21 N/A Chronic back painLumbar spin al stenosis Somatoform pain disorder Active 2023-10-21 N/A Sensory neuropathy Active 2025-02-18 N/A Other problems related to or dical facilities and other health care Active 2024-05-12 N/A Mixed stress and urge urinary incontinence Active 2025-02-18 N/A History of fallImpaired gait and mobility Active 2025-02-20 N/A Encounters Encounters Type Facility Date of Service Diagnosis/Co mplaint New patient,40-59min; chronic exacerbation, 2 stable chronic or 1 acute illness add add modifier 95 for video (do not use for phone, instead use 35176-74) [facility] Noninfective gastroenteritis and colitis, [...] sitesSacroiliitis, not elsewhere classifiedAthscl heart disease of [place] cor art w unsp ang pctrsPeripheral vascular disease, unspecified New patient,40-59min; chronic exacerbation, 2 stable chronic or 1 acute illness add add modifier 95 for video (do not use for phone, instead use 26116-16) [facility] New patient,40-59min; chronic exacerbation, 2 stable chronic or 1 acute illness add add modifier 95 for video (do not use for phone, instead use 30528-48) [facility] New patient,40-59min; chronic exacerbation, 2 stable chronic or 1 acute illness add add modifier 95 for video (do not use for phone, instead use 67540-37) [facility] New patient,40-59min; chronic exacerbation, 2 stable chronic or 1 acute illness add add modifier 95 for video (do not use for phone, instead use 65921-74) [facility] New patient,40-59min; chronic exacerbation, 2 stable chronic or 1 acute illness add add modifier 95 for video (do not use for phone, instead use 12055-93) [facility] New patient,40-59min; chronic exacerbation, 2 stable chronic or 1 acute illness add add modifier 95 for video (do not use for phone, instead use 85019-36) [facility] New patient,40-59min; chronic exacerbation, 2 stable chronic or 1 acute illness add add modifier 95 for video (do not use for phone, instead use 62652-88) [facility] New patient,40-59min; chronic exacerbation, 2 stable chronic or 1 acute illness add add modifier 95 for video (do not use for phone, instead use 47923-63) [facility] 04[place]/2023 Unlisted special service; to be used for medical record reviews and reporting CPTII codes (1111F, etc) [facility] 07/01/2023 Other specified counseling Unlisted special service; to be used for medical record reviews and reporting CPTII codes (1111F, etc) [facility]2023 Unlisted special service; to be used for medical record reviews and reporting CPTII codes (1111F, etc) [facility] 07/[place]/2023 No Data Available [facility] 08/10/2023 Body mass index (BMI) 45.0-4 9.9, adultPrediabetesMorbid (severe) obesity due to excess caloriesTinea unguiumLumbago with sciatica, left sideLumbago with sciatica, right sideOther chronic painOther intervertebral disc degeneration, lumbar region No Data Available [facility]2023 No Data Available [facility] 08/10[place]2023 No Data Available [facility] [place] 10/21/2023 Dorsalgia, unspecifiedOther chronic painMorbid (severe) obesity due to excess caloriesOther specified personal risk factors, not elsewhere classified No Data Available [facility] 10/21/2023 Estab. patient 30-39min; chronic exacerbation, 2 stable chronic or 1 acute illness add add modifier 95 for video, (do not use for phone, instead use 67425-02) [facility] 05/11/2024 Type 2 diabetes mellitus wit h diabetic chronic kidney diseaseChronic kidney disease, stage 3bRepeated fallsUnspecified hearing loss, left earTinnitus, left earUnspecified hemorrhoidsOther specified postprocedural statesLumbago with sciatica, left sideLumbago with sciatica, right sideOther chronic painOther intervertebral disc degeneration, lumbar regionIdiopathic chronic gout, unspecified site, without tophus (tophi)Polyosteoarthritis, unspecifiedSchizophrenia, unspecifiedAthscl heart disease of [place] cor art w unsp ang pctrsType 2 diabetes w diabetic peripheral angiopath w/o gangreneUnsp athscl coqu[place] arteries of extremities, bilateral legsChronic obstructive pulmonary [...] (do not use for phone, instead use 17880-85) [facility] 05[place]20[place] Estab. patient 30-39min; chronic exacerbation, 2 stable chronic or 1 acute illness add add modifier 95 for video, (do not use for phone, instead use 36929-14) [facility] 05[place]11/20[place] Estab. patient 30-39min; chronic exacerbation, 2 stable chronic or 1 acute illness add add modifier 95 for video, (do not use for phone, instead use 60776-82) [facility] 05[place]11/2024 Estab. patient 30-39min; chronic exacerbation, 2 stable chronic or 1 acute illness add add modifier 95 for video, (do not use for phone, instead use 29948-68) [facility] 05[place]11/2024 Estab. patient 30-39min; chronic exacerbation, 2 stable chronic or 1 acute illness add add modifier 95 for video, (do not use for phone, instead use 12935-89) [facility] 05[place]11/2024 Estab. patient 30-39min; chronic exacerbation, 2 stable chronic or 1 acute illness add add modifier 95 for video, (do not use for phone, instead use 39155-64) [facility] 05[place]/2024 No Data Available [facility] 05/[place]/2024 Type 2 diabetes mellitus wit h diabetic chronic kidney diseaseChronic kidney disease, stage 3b No Data Available [facility] No Data Available [facility] 06/20/2024 Type 2 diabetes mellitus wit h diabetic chronic kidney diseaseChronic kidney disease, stage 3b No Data Available [facility] 06/20/2024 Unlisted special service; to be used for medical record reviews and reporting CPTII codes (1111F, etc) [facility] [place]/04/20[place] Other specified counseling Unlisted special service; to be used for medical record reviews and reporting CPTII codes (1111F, etc) [facility] [place] 09/[place]/2024 Unlisted special service; to be used for medical record reviews and reporting CPTII codes (1111F, etc) [facility] Estab. patient 10-29min; 1 minor problem; add add modifier 95 for video, modifier 93 for phone [facility] 12[place]18/2024 Type 2 diabetes mellitus wit h diabetic chronic kidney diseaseChronic kidney disease, stage 3bMorbid (severe) obesity due to excess caloriesBody mass index (bmi) 50-59.9 , adult Estab. patient 10-29min; 1 minor problem; add add modifier 95 for video, modifier 93 for phone [facility]18[place] Estab. patient 10-29min; 1 minor problem; add add modifier 95 for video, modifier 93 for phone [facility]/18/20[place] Estab. patient 20-29min; 1 stable chronic or 2 minor; add add modifier 95 for video, modifier 93 for phone [facility] 02/18/2025 Noninfective gastroenteritis and colitis, unspecifiedRepeated [...] to conditions classified elsewhereAthscl heart disease of [place] cor art w unsp ang pctrsPeripheral vascular disease, unspecifiedUnsp athscl coqu[place] arteries of extremities, bilateral legsChronic obstructive pulmonary [...] modifier 95 for video, modifier 93 for [facility] 02/18/2025 Estab. patient 20-29min; 1 stable chronic or 2 minor; add add modifier 95 for video, modifier 93 for [facility] 02/18/2025 Estab. patient 20-29min; 1 stable chronic or 2 minor; add add modifier 95 for video, modifier 93 for [facility] 02/18/2025 Estab. patient 20-29min; 1 stable chronic or 2 minor; add add modifier 95 for video, modifier 93 for [facility] 02/18/2025 Estab. patient 20-29min; 1 stable chronic or 2 minor; add add modifier 95 for video, modifier 93 for [facility] 02/18/2025 Estab. patient 20-29min; 1 stable chronic or 2 minor; add add modifier 95 for video, modifier 93 for phone [facility] 02/18/2025 Estab. patient 20-29min; 1 stable chronic or 2 minor; add add modifier 95 for video, modifier 93 for phone [facility] 02/18/2025 Vital Signs Date of Collection Vitals [...] tive Time Current Smoking Status Never smoker 6 Sex Female Gender identity Woman History of Procedures Procedures Service Procedure code Service date Servicing provider Phone# New patient,40-59min; chronic exacerbation, 2 stable chronic or 1 acute illness add add modifier 95 for video (do not use for phone, instead use 71032-71) 00574 2023-04-07 No Data Available No Data Availa [...] reviews and reporting CPTII codes (1111F, etc) 95274 2023-07-01 No Data Available No Data Availa ble SBP < 130 (3074F) 3074F 2023-07-01 No Data Available No Data Available DBP <80 (3078F) 3078F 2023-07-01 No Data Available No Data Available No Data Available 11369 2023-08-10 No Data Available No Data Available Medication List Documented (1159F) 1159F 2023-08-10 No Data Available No Data Lena ilable BMI obtained (3008F) 3008F 2023-08-10 No Data Availab le No Data Available No Data Available 19654 2023-10-21 No Data Available No Data Available Medication List Documented (1159F) 1159F 2023-10-21 No Data Available No Data Lena ilable Estab. patient 30-39min; chronic exacerbation, 2 stable chronic or 1 acute illness add add modifier 95 for video, (do not use for phone, instead use 85094-36) 48466 2024-05-11 No Data Available No Data Availa [...] Available No Data Available No Data Available 62700 2024-05-14 No Data Available No Data Available Medication List Documented (1159F) 1159F 2024-05-14 No Data Available No Data Lena ilable No Data Available 88677 2024-06-20 No Data Available No Data Available Medication List Documented (1159F) 1159F 2024-06-20 No Data Available No Data Lena ilable Unlisted special service; to be used for medical record reviews and reporting CPTII codes (1111F, etc) 12537 2024-09-04 No Data Available No Data Availa ble SBP >= 140 3077F 2024-09-04 No Data Available No Data Available DBP >=90 3080F 2024-09-04 No Data Available No Data Available Estab. patient 10-29min; 1 minor problem; add add modifier 95 for video, modifier 93 for phone 63155 2024-12-18 No Data Available No Data Availa ble Medication List Documented (1159F) 1159F 2024-12-18 No Data Available No Data Lena ilable BMI obtained (3008F) 3008F 2024-12-18 No Data Availab le No Data Available Estab. patient 20-29min; 1 stable chronic or 2 minor; add add modifier 95 for video, modifier 93 for phone 64849 2025-02-18 No Data Available No Data Availa [...] rheumatoid factor, multiple sitesAtherosclerotic heart disease of [place]qu[place] coronary artery with unspecified angina pectoris;Peripheral vascular [...] discChronic gouty arthritis;Generalized osteoarthritisSchizophreniaAtherosclerotic heart disease of [place] coronary artery with unspecified angina pectoris;Peripheral vascular disease, unspecifiedUnspecified atherosclerosis of [place] arteries of extremities, bilateral legsChronic obstructive pulmonary [...] to conditions classified elsewhereAtherosclerotic heart disease of [place] coronary artery with unspecified angina pectoris;Peripheral vascular disease, unspecifiedUnspecified atherosclerosis of [place] arteries of extremities, bilateral legsChronic obstructive pulmonary [...] for weight clinic - also endocr for [facility] MASending to podiatry per pt request.Also [...] area that had available staff.Pt to call [facility] and get name of PT providers in her area that are covered.Will investigate weight loss clinics.Pt to look for back exercises on YouTube, activity as tolerated.Will FU.BMI 49.25send to weight clinic but not [place]referral for weight clinic - also endocr for [facility] [place]10/21/2023Have not been able to find clinic that is covered by [facility] in er area. Pt to call [facility] and find list of names [...] portal notes, I70.203 - Unspecified atherosclerosis of [place] arteries of extremities, bilateral legs continues to take albuterol sulfatePlease call CB ifIncreased SOB,or if patient falls.Pain that radiates to vaginaHas seen PCPhas referral to GI but is going to cancelEd not to cancel, get transportBMI 52.08send to weight clinic but not [place]23referral for weight clinic - [place] [facility]Have not been able to find clinic that is covered by [facility] in er area. Pt to call [facility] and find list of names [...] area that had available staff.Pt to call [facility] and get name of PT [...] modifier 95)Continue to see PCP. Follow-up with [facility] as needed for any acute or [...] our conversation of three days ago. Her ROLLING ATTENDANT is supposed to go tonight or tomorrow [...] modifier 95)Continue to see PCP. Follow-up with [facility] as needed for any acute or [...] our conversation of three days ago. Her ROLLING ATTENDANT is supposed to go tonight or tomorrow [...] mg dose. She will be traveling to [place] so she is to ask for emergency traveling supply, which won't be much as she will be back july.Refilled w instructions to pharmacy.Will FU after . 2024-12-18 08:09:04 Estab. patient 10-29 min; 1 minor problem; add add modifier 95 for video, modifier 93 for phoneContinue to see PCP. Follow-up with [facility] as needed for any acute or [...] our conversation of three days ago. Her ROLLING ATTENDANT is supposed to go tonight or tomorrow [...] mg dose. She will be traveling to [place] so she is to ask for emergency [...] person f/u appointment. F/u c Dr. Violeta Pasucal re continuation of prescription. Discussed at length that member will need routine labs and monitoring q 3 months with possible titrations. Member agreeable with plan.BMI 52.08send to weight clinic but not [place] 08/[place]/2023referral for weight clinic - also endocr for [facility]/21/2023Have not been able to find clinic that is covered by [facility] in er area. Pt to call [facility] and find list of names [...] support person: son / Transfer member to [address] [place] [address]/ Quetiapine 50mg PO q12h PRN agitation/ Remind [...] weight lossWill be sending to endo/weight loss clinicStablestatinAL portal notes, I70.203 - Unspecified atherosclerosis of [place] arteries of extremities, bilateral legs Stablealbuterol sulfateMonitor [...]
--- OUTSIDE RECORDS SUMMARY | 2025-03-19 10:33 | XMS_ITS | Encounter Summary ---
Author Organization [facility], Address [address] [place] [address] Phone Care Team Providers Care Coal Loader Name Role Phone Violeta Boo MD Primary Care Provide r Encounter Details Date Type Department Care Team (Late st Contact Info) Description 08/27/2024 Documentation Only [facility] [address] [place] [phone] Rowena Knowles [address] [place] [address] Social History Tobacco Use Types [...] Visit [facility] [address] [place] [address] Shailesh Vallejo MD [address] [place] [address] [place] [phone] documented as of this encounter Visit Diagnoses Not on filedocumented in this encounter Care Teams Coal Loader Relationship Specialty Start Date End Date Violeta Boo MD [address] [place] [phone] PCP - General Internal Medicine 03/21/23 documented as of this encounter
--- OUTSIDE RECORDS SUMMARY | 2025-03-19 10:33 | XMS_ITS | Encounter Summary ---
Author Organization [facility] Address [address] [place] [address] Phone Care Team Providers Care Ship Pilot Name Role Phone Violeta oBo MD Primary Care Provide r Encounter Details Date Type Department Care Team (Late st Contact Info) Description 03/18/2025 Orders Only [facility] [address] [place] [address] Shailesh Vallejo MD [address] [place] [address] Stage 3b chronic kidney disease [...] [facility] [address] [place] [address] Shailesh Vallejo MD [address] [place] [place] [address] Scheduled Orders Name Type Priority [...] (HCC) Hypervolemia Anemia in chronic kidney disease Stage 3b chronic kidney disease (HCC)- Primary documented in this encounter Care Teams Ship Pilot Relationship Specialty Start Date End Date Violeta Boo MD [address] [place] [phone] PCP - General Internal Medicine 03/21/23 documented as of this encounter
--- OUTSIDE RECORDS SUMMARY | 2025-03-19 10:33 | XMS_ITS | Encounter Summary ---
Author Organization [facility], Address [address] [place] [address] Phone Care Team Providers Care Buckle Assembler Name Role Phone Violeta Boo MD Primary Care Provide r Encounter Details Date Type Department Care Team (Late st Contact Info) Description 02/13/2024 Documentation Only [facility] [address] [place] [address] Rowena Knowles [address] [place] [address] Social History Tobacco Use Types [...] Visit [facility] [address] [place] [address] Shailesh Vallejo MD [address] [place] [address] [place] [phone] documented as of this encounter Visit Diagnoses Not on filedocumented in this encounter Care Teams Buckle Assembler Relationship Specialty Start Date End Date Violeta Boo MD [address] [place] [phone] PCP - General Internal Medicine 03/21/23 documented as of this encounter
--- OUTSIDE RECORDS SUMMARY | 2025-03-19 10:33 | XMS_ITS | Clinical Summary ---
Author Organization [facility], Address [address] [place] [address] [place] [address] Phone Care Team Providers Care Bale Coverer Name Role Phone Violeta Boo MD Primary [...] Diagnosed Date Resolved Date Gout 02/12/2020 06/15/2021 correction use of nonsteroida l antiinflammatories 02/12/2020 06/15/2021 Encounters Date Type Department Care Team Description 03/18/2025 Orders Only [facility], [address] [place] [address] Shailesh Vallejo MD Stage 3b chronic kidney disease (HCC) (Primary Dx); Essential (primary) hypertension; Type 2 diabetes mellitus, not otherwise specified (HCC); Hypervolemia; Anemia in chronic kidney disease from Last 3 Months Immunizations Immunization Administration Dates Next Due Influenza (IM) Preservative Free 022,08/10/2019,08/08/2018,12/12,08/17/2016,08/20/2015,08/27/2014 ,08/01/2013,10/23/2012 Influenza Split 08/01/2013,10/23/2012 Influenza Split High Dose Pr eservative Free IM 08/13/2024 Influenza, MDCK, PF, Quadrivalent 03/12/2022 Influenza, Quadrivalent, Pre servative Free 08/10/2019 Influenza, Quadrivalent, Wit h Preservative 08/08/2018,12/12/2017,08/17/2016,08/20 Influenza, Unspecified 09/07/2023,08/26/2022, Pfizer SARS-COV-2 08/13/2024, 3,08/26/2022,03/31,03/12/2022 Pneumococcal Conjugate 13-Valent 12/12/2017 Pneumococcal Conjugate Pcv 20 08/13/2024 Pneumococcal Polysaccharide 03/19/2019, 3 SARS-CoV-2, Unspecified 08/26/2022,03/31/2022, [...] Visit [facility] [place], [address] [place] [address] Shailesh Vallejo MD [address] [facility] [address] [facility] [place] [address] Health Maintenance Due Date Last [...] AM EST) Hemoglobin A1C 7.1(H) (4.0-5.6) % [facility] Comment: MONITORING: In known diabetic patients, hemoglobin A1c targets should be discussed with health care provider. DIAGNOSTIC USE: ??The [place] [employer] (ADA) and the World Health [...] Supplement 1 Testing performed or reported by [facility], a Service of [facility], [address] [place] [address] Yana Bales MD, Workforce Development Specialist [facility]# [id number] Blood (Blood, Venous) 10/20/2022 9:21 AM EST 10/20/2022 9:22 AM EST us Shailesh Vallejo MD LAB BLOOD ORDERABLES Final Resul t Performing Organization Address City/State/[facility] Co de Phone Number [facility] from Last 3 Months or Most Recently Relevant to Health Maintenance Insurance [address] [place] [address] [facility] ([id number]) Care Teams Bale Coverer Relationship Specialty Start Date End Date Violeta Boo MD [address] [place] [address] [phone] PCP - General Internal Medicine 5/8/23
--- OUTSIDE RECORDS SUMMARY | 2025-03-19 10:33 | XMS_ITS | Encounter Summary ---
Author Organization [facility], Address [address] [place] [address] Phone Care Team Providers Care In Store Marketing Associate Name Role Phone Violeta Boo MD Primary Care Provide r Encounter Details Date Type Department Care Team (Late st Contact Info) Description 05/05/2022 Documentation Only [facility] [address] [place] [address] Shailesh Vallejo MD [address] [place] [address] [place] [address] Social History Tobacco Use Types [...] [facility] [address] [place] [address] Shailesh Vallejo MD [address] [place] [address] [place] [address] documented as of this encounter Visit Diagnoses Not on filedocumented in this encounter Care Teams In Store Marketing Associate Relationship Specialty Start Date End Date Violeta Boo MD [address] [place] [address] [phone] PCP - General Internal Medicine 03/21/23 documented as of this encounter
--- OUTSIDE RECORDS SUMMARY | 2025-03-19 10:33 | XMS_ITS | Clinical Summary ---
Author Organization [facility] Address [address] [place] [address] Phone Care Team Providers Care Research Geneticist Name Role Phone Violeta Boo MD [...] Anxiety 10/08/2024 Asthma 10/08/2024 Chronic kidney disease, stag e III (moderate) (CMS/HCC V24, CMS/HCC V28) 10/08/2024 Essential hypertension, benign 10/08/2024 Hyperlipidemia 10/08/2024 Osteopenia 10/08/2024 Primary osteoarthritis of both knees 10/08/2024 Psychotic disorder ([facility]24, [facility] [place] Tubular adenoma of colon 10/08/2024 Dyslipidemia 08/26/2023 [...] appointment Onychomycosis 03/08/2023 Type 2 diabetes mellitus ([facility] V24, [facility] V 28) 01/31/2023 Otitis externa 12/16/2022 Overview (10/08/2024): Last [...] Chronic gouty arthritis 09/08/2018 Episodic mood disorder ([facility] V24) 08/08/2018 Generalized osteoarthritis 08/08/2018 Morbid obesity ([facility] V24, [facility] V28) 2017 Overview (10/08/2024): Last Assessment & Plan: Discussed re weight reduction options including exercise, life style modifications, diet, referral to physician specialist. Discussed re lower calorie intake, increase dietary fiber Pt agreed to be referred to dietitian. Non-cardiac chest pain 08/08/2018 Seasonal allergies 08/08/2018 Unintended awareness under g eneral anesthesia during procedure 08/08/2018 Encounters Date Type Department Care Team Description 01/16/2025 1:00 PM EST Office Visit Orthopedic Surgery - [place] 250 [address] [facility] [address] [place] [phone] Maury Godoy, DPM Dermatophytosis of nail (Primary Dx); Tinea pedis of both feet; Pain in toe of right foot; Pain in toe of left foot; Corns and callosities; Diabetic mononeuropathy simplex ([facility] [place]); Type II diabetes mellitus with peripheral circulatory disorder ([facility] [place] [facility] [place]); Acquired hallux valgus of left foot; Acquired [...] AM EDT Office Visit Orthopedic Surgery - [place] [address] [phone] Maury Godoy, DPM [address] [address] Health Maintenance Due Date Last Done Comments Breast Cancer Screening 1950 Diabetes: Annual Foot Exam 1962 Diabetes: Annual Retina Eye Exam 1960 RSV Immunization Adult Patients (1 - Risk 60-74 years 1-dose series) [...] Control Test (HGBA1C) 12/17/2023 08/09/2022 COVID-19 Vaccine (6 - Pfizer risk season) 2025 08/13/2024, 09/07/2023, 08/26/2022, Additional history exists Diabetes: Annual GFR (Glomerular Filtration Rate) 03/01/2025 03/01/2024 Hypertension/CHF/CAD Annual BMP Blood Test 03/01/2025 03/01/2024 Cholesterol Screening (Lipid Panel) 03/15/2027 03/15/2022 Zoster Vaccines Completed 11/29/2019, 1007/2019, 01/14/2015 Influenza Vaccine Completed 08/13/2024, , 08/26/2022, Additional [...] age to complete this topic Meningococcal B Vaccine Aged Out No l onger eligible based on patient's age to complete [...] Results * Annual BMP Blood Test (03/01/2024) [facility] Annual BMP Blood Test Abstracted Historical Provider HEALTH MAINTENANCE Final Result * Hemoglobin A1c (08/09/2022) [facility] Hemoglobin A1C 0.0 % Comment:No Interpretation, A bstracted Blood Venous blood specimen / Unknown Historical Provider LAB BLOOD ORDERABLES Almaz l Result * Lipid panel (03/15/2022) [facility] LDL/HDL Ratio 0 Comment:No Interpretation, A bstracted Triglycerides 0 mg/dL Comment:No Interpretation, A bstracted Cholesterol 0 mg/dL Comment:No Interpretation, A bstracted HDL 0 mg/dL Comment:No Interpretation, A bstracted LDL Cholesterol 0 mg/dL Comment:No Interpretation, A bstracted Blood Venous blood specimen / Unknown Historical Provider LAB BLOOD ORDERABLES Almaz bridgette Result from Last 3 Months or Most Recently Relevant to Health Maintenance Insurance [employer] MEDICARE [place]ICAID - [place] Care Teams Research Geneticist Relationship Specialty Start Date End Date Violeta Boo MD [address] [phone] PCP - General 03/29/23
--- OUTSIDE RECORDS SUMMARY | 2025-03-19 10:33 | XMS_ITS | Encounter Summary ---
Author Organization [facility] Address [address] [place] [address] Phone Care Team Providers Care Watershed Coordinator Name Role Phone Violeta Boo MD Primary Care Provide r Encounter Details Date Type Department Care Team (Late st Contact Info) Description 03/22/2023 Documentation Only [facility] [address] [place] [phone] Jazmin Powell PA Social History Tobacco Use [...] [facility] [address] [place] [address] Shailesh Vallejo MD [address] [place] [address] [place] [phone] documented as of this encounter Visit Diagnoses Not on filedocumented in this encounter Care Teams Watershed Coordinator Relationship Specialty Start Date End Date Violeta Boo MD [address] [place] [phone] PCP - General Internal Medicine 03/21/23 documented as of this encounter
--- OUTSIDE RECORDS SUMMARY | 2025-03-19 10:33 | XMS_ITS | Encounter Summary ---
Author Organization [facility] [employer] [facility] [employer] Address [address] [place] [address] Phone Care Team Providers Care Script Manager Name Role Phone Violeta Boo MD Primary Care Provide r Encounter Details Date Type Department Care Team (Late st Contact Info) Description 10/22/2022 Documentation Only [facility] [address] [place] [phone] Jazmin Powell PA Social History Tobacco Use [...] Visit [facility] [address] [place] [address] Shailesh Vallejo MD [address] [place] [address] [place] [phone] documented as of this encounter Visit Diagnoses Not on filedocumented in this encounter Care Teams Script Manager Relationship Specialty Start Date End Date Violeta Boo MD [address] [place] [phone] PCP - General Internal Medicine 03/21/23 documented as of this encounter
--- OUTSIDE RECORDS SUMMARY | 2025-03-19 10:34 | XMS_ITS | Encounter Summary ---
Author Organization [facility] [place], Address [address] [place] [address] Phone Care Team Providers Care Vice President Quality Assurance Name Role Phone Violeta Boo MD Primary Care Provide r Encounter Details Date Type Department Care Team (Late st Contact Info) Description 05/05/2022 Documentation Only [facility] [address] [place] [address] Shailesh Vallejo MD [address] [place] [address] [place] [address] Social History Tobacco Use Types [...] [facility] [address] [place] [address] Shailesh Vallejo MD [address] [place] [address] [place] [address] documented as of this encounter Visit Diagnoses Not on filedocumented in this encounter Care Teams Vice President Quality Assurance Relationship Specialty Start Date End Date Violeta Boo MD [address] [place] [phone] PCP - General Internal Medicine 03/21/23 documented as of this encounter
== END 2025-03-19 09:35 | disposition home or self-care (01) ==
LOC: HO.MAMMO 09:34
PROVIDERS: PCP Internal Medicine; Visit Provider Student in an Organized Health Care Education/Training Program
DX: Z13.820 Encounter for screening for osteoporosis (principal); M85.80 Other specified disorders of bone density and structure, unspecified site; L40.50 Arthropathic psoriasis, unspecified; M85.852 Other specified disorders of bone density and structure, left thigh
CPT/HCPCS: 77080

== ENCOUNTER 2025-03-28 08:49 | Outpatient (REF) | payer OTHER, SELFPAY ==
--- NOTE | ~2025-03-28 | XR_ITS ---
CLINICAL HISTORY: S32.009A - Unspecified fracture of unspecified lumbar vertebra, initial ... 5 views lumbar spine Comparison: CR/SR - XR LUMBAR SPINE 2-3V - 03/01/24 12:17 EDT Findings: Normal vertebral body alignment. No acute fractures or dislocation. Loss of intervertebral disc height, vacuum phenomenon and endplate proliferation at L1-L2, L2-L3, L3-L4 and L4-L5. Facet osteoarthritis at L4-L5 and L5-S1. There is partial lumbarization of the left side of L5 with articulation of the left L5 transverse process with the left sacral ala. IMPRESSION: 1. Severe degenerative changes of the lumbar spine, similar to the prior study. 2. Partial sacralization of L5 on the left side. This document has been electronically signed by: Alida Kumar MD on 03/28/2025 15:46:29
--- NOTE | ~2025-03-28 | XR_ITS ---
CLINICAL HISTORY: M84.48XA - Pathological fracture, other site, initial encounter for frac... 2 view pelvis Comparison: None Findings: There is no acute fracture. There is chronic appearing deformity of the distal sacrum. There is no obvious stress fracture. There appears to be partial sacralization of the left side of L5 partial sacralization of L5 with pseudoarticulation with the left sacral ala. There are advanced degenerative changes of the lumbar spine. Osteitis pubis is incidentally noted. There is no significant degeneration of the hips. Soft tissues are unremarkable. IMPRESSION: 1. No acute findings. This document has been electronically signed by: Alida Kumar MD on 03/28/2025 15:39:05
--- OUTSIDE RECORDS SUMMARY | 2025-03-28 09:49 | XMS_ITS | Encounter Summary ---
Author Organization [facility], Address [address] [place] [address] Phone Care Team Providers Care Supervisor Train Operations Name Role Phone Violeta Boo MD Primary Care Provide r Encounter Details Date Type Department Care Team (Late Contact Info) Description 03/15/2022 Documentation Only [facility] [address] [place] [address] Shailesh Vallejo MD [address] [place] [address] [place] [address] Social History Tobacco Use Types [...] [facility] [address] [place] [address] Shailesh Vallejo MD [address] [place] [address] [place] [address] documented as of this encounter Visit Diagnoses Not on filedocumented in this encounter Care Teams Supervisor Train Operations Relationship Specialty Start Date End Date Violeta Boo MD [address] [place] [phone] PCP - General Internal Medicine 03/21/23 documented as of this encounter
--- OUTSIDE RECORDS SUMMARY | 2025-03-28 09:50 | XMS_ITS | Encounter Summary ---
Author Organization [employer] Address [address] [facility] 7t [place] [address] Care Team Providers Care Career Development Consultant Name Role Phone Violeta Boo MD Primary Care Provide r Reason for Visit * Reason Comments Med Refill Encounter Details Date Type Department Care Team ([facility] st Contact Info) Description 10/21/2024 Refill [facility] MEDICINE [address] [place] [address] Violeta Boo MD 230 [place] [address] Pain Social History Tobacco Use Types Packs/Day [...] Description 05/23/2025 9:00 AM EDT Office Visit [facility] MEDICINE [address] [place] [address] Violeta Boo MD 230 [place] [address] 06/07/2025 9:30 AM EDT Office Visit [facility] OPTOMETRY [address] [place] [address] Caden, Angella, OD 230 [place] [address] documented as of this encounter Visit Diagnoses Diagnosis Pain Generalized pain documented in this encounter Additional Health Concerns Assessment Noted Time PHQ-9 Depression Total Score: 17 024 11:23 AM EDT documented as of this encounter Care Teams Career Development Consultant Relationship Specialty Start Date End Date Violeta Boo MD [address] [place] [address] PCP - General Family Medicine 05/21/22 documented as of this encounter
--- OUTSIDE RECORDS SUMMARY | 2025-03-28 09:50 | XMS_ITS | Encounter Summary ---
Author Organization [facility] [place], Address [address] [place] [address] Phone Care Team Providers Care Senior Materials Scientist Name Role Phone Violeta Boo MD Primary Care Provide r Encounter Details Date Type Department Care Team (Late Contact Info) Description 03/22/2023 Documentation Only [facility] [address] [place] [phone] Jazmin Powell PA Social History Tobacco Use [...] [facility] [address] [place] [phone] Shailesh Vallejo MD [address] [place] [address] [place] [phone] documented as of this encounter Visit Diagnoses Not on filedocumented in this encounter Care Teams Senior Materials Scientist Relationship Specialty Start Date End Date Violeta Boo MD [address] [place] [phone] PCP - General Internal Medicine 03/21/23 documented as of this encounter
--- OUTSIDE RECORDS SUMMARY | 2025-03-28 09:50 | XMS_ITS | Encounter Summary ---
Author Organization [employer] Address [address] [facility] 7t [place] [address] Care Team Providers Care Product Design Specialist Name Role Phone Violeta Boo MD Primary Care Provide r Reason for Visit * Reason Comments Med Refill Encounter Details Date Type Department Care Team ([facility] st Contact Info) Description 11/18/2022 Refill [facility] PEDS [address] [place] [address] Betsy Simmons CNM [address] [place] [address] Social History Tobacco Use Types Packs/Day Years [...] No answer, left V/M. Will retask to decker nurses for second attempt * Telephone Encounter [...] Description 05/23/2025 9:00 AM EDT Office Visit [facility] MEDICINE [address] [place], [place] [phone] Violeta Boo MD 230 [place], [place] [phone] 06/07/2025 9:30 AM EDT Office Visit [facility] OPTOMETRY [address] [place], [place] [phone] Caden, Angella, OD 230 [place], [place] [phone] documented as of this encounter Visit Diagnoses Not on filedocumented in this encounter Care Teams Product Design Specialist Relationship Specialty Start Date End Date Violeta Boo MD 230 [place] [address] PCP - General Family Medicine 05/21/22 documented as of this encounter
--- OUTSIDE RECORDS SUMMARY | 2025-03-28 09:50 | XMS_ITS | Encounter Summary ---
Author Organization [facility] [place], Address [address] [place] [address] Phone Care Team Providers Care Trimmer And Reinforcer Name Role Phone Violeta Boo MD Primary Care Provide r Encounter Details Date Type Department Care Team (Late Contact Info) Description 08/27/2024 Documentation Only [facility] [address] [facility] [address] [place] [address] Rowena Knowles [address] [place] [phone] Social History Tobacco Use Types Packs/Day Years [...] Visit [facility] [place], [address] [place] [address] Shailesh Vallejo MD [address] [place] [address] [place] [address] documented as of this encounter Visit Diagnoses Not on filedocumented in this encounter Care Teams Trimmer And Reinforcer Relationship Specialty Start Date End Date Violeta Boo MD [address] [place] [phone] PCP - General Internal Medicine 03/21/23 documented as of this encounter
--- OUTSIDE RECORDS SUMMARY | 2025-03-28 09:50 | XMS_ITS | Encounter Summary ---
Author Organization [facility] Address [address] [place] [address] Phone Care Team Providers Care Call Or Contact Centre Team Leader Name Role Phone Violeta Boo MD Primary Care Provide r Encounter Details Date Type Department Care Team (Late Contact Info) Description 2022 Office Communication [facility] [address] [place] [address] Shailesh Vallejo MD [address] [place] [address] [place] [address] Social History Tobacco Use Types [...] [facility] [address] [place] [address] Shailesh Vallejo MD [address] [place] [address] [place] [address] documented as of this encounter Visit Diagnoses Not on filedocumented in this encounter Care Teams Call Or Contact Centre Team Leader Relationship Specialty Start Date End Date Violeta Boo MD [address] [place] [phone] PCP - General Internal Medicine 03/21/23 documented as of this encounter
--- OUTSIDE RECORDS SUMMARY | 2025-03-28 09:50 | XMS_ITS | Encounter Summary ---
Author Organization [facility] [place], Address [address] [place] [address] Phone Care Team Providers Care Tile Setter Supervisor Name Role Phone Violeta Boo MD Primary Care Provide r Encounter Details Date Type Department Care Team (Late Contact Info) Description 12/24/2022 Documentation Only [facility] [address] [place] [phone] Jazmin Powell PA Social History Tobacco Use [...] Visit [facility] [address] [place] [phone] Shailesh Vallejo MD [address] [place] [address] [place] [phone] documented as of this encounter Visit Diagnoses Not on filedocumented in this encounter Care Teams Tile Setter Supervisor Relationship Specialty Start Date End Date Violeta Boo MD [address] [phone] PCP - General Internal Medicine 03/21/23 documented as of this encounter
--- OUTSIDE RECORDS SUMMARY | 2025-03-28 09:50 | XMS_ITS | Encounter Summary ---
Author Organization [employer] Address [address] [facility] 7t [place] [address] Care Team Providers Care Refinery Operator Visbreaking Name Role Phone Violeta Boo MD Primary Care Provide r Reason for Visit * Reason Onset Date Comments Med Refill 10/25/2024 Encounter Details Date Type Department Care Team ([facility] st Contact Info) Description 10/25/2024 Telephone [facility] MEDICINE [address] [place] [address] Violeta Boo MD 230 [place] [address] Med Refill Social History Tobacco Use Types [...] [facility] [address] [place], [place] [phone] Violeta Boo MD 230 [place] [address] 06/07/2025 9:30 AM EDT Office Visit [facility] OPTOMETRY [address] [place], [place] [phone] Angella Negrete, OD 230 [place] [address] documented as of this encounter Visit Diagnoses Not on filedocumented in this encounter Additional Health Concerns Assessment Noted Time PHQ-9 Depression Total Score: 17 024 11:23 AM EDT documented as of this encounter Care Teams Refinery Operator Visbreaking Relationship Specialty Start Date End Date Violeta Boo MD 230 [place] [address] PCP - General Family Medicine 05/21/22 documented as of this encounter
--- OUTSIDE RECORDS SUMMARY | 2025-03-28 09:50 | XMS_ITS | Encounter Summary ---
Author Organization [employer] Address [address] [facility] 7t [place] [address] Care Team Providers Care Mica Laminating Machine Feeder Name Role Phone Violeta Boo MD Primary Care Provide r Encounter Details Date Type Department Care Team (Late st Contact Info) Description 07/20/2024 Telephone [facility] OPTOMETRY [address] [place] [address] Angella Negrete, OD [address] [place] [address] Social History Tobacco Use Types Packs/Day Years [...] t he electric, gas, oil or water [employer] threatened to shut off services in your [...] 07/20/2024 3:24 PM EDT Called the Patient AUTOS DISASSEMBLER Nikita Sneed, to inform her at the [...] Description 05/23/2025 9:00 AM EDT Office Visit [facility] MEDICINE 230 [place] [address] Violeta Boo MD 230 [place] [address] 06/07/2025 9:30 AM EDT Office Visit [facility] OPTOMETRY [address] [place] [address] Angella Negrete, OD 230 [place] [address] documented as of this encounter Visit Diagnoses Not on filedocumented in this encounter Care Teams Mica Laminating Machine Feeder Relationship Specialty Start Date End Date Violeta Boo MD 230 [place] [address] PCP - General Family Medicine 05/21/22 documented as of this encounter
--- OUTSIDE RECORDS SUMMARY | 2025-03-28 09:50 | XMS_ITS ---
Author Name Radha Ayala NP Address [address] [place] [address] Phone [phone] [facility] Care Team Providers Care Signing Teacher Name Role Phone Radha Ayala Unavailable [phone] Unavailable Unavailable Unavailable Unavailable Unavailable Unavailable Cristo Garcia Unavailable [phone] Unavailable Unavailable [phone] Gideon Frost Unavailable [phone] Unavailable Unavailable Unavailable Unavailable Unavailable Unavailable Unavailable Unavailable [phone] WALTER ROBERT Unavailable [phone] Nirav Anthony Unavailable [phone] Unavailable Unavailable [phone] Unavailable Unavailable [phone] Reason for Referral Not Available Allergies, adverse [...] AREA(S) EVERY MORNING 2022-12-16 No Data Available [id number] [id number] 3 TO 4 DROPS INTO [...] mg Cap TAKE 1 CAPSULE BY [facility] AT BEDTIME 2023-05-20 No Data Available [...] 2023-04-07 N/A 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;Peripheral vascular [...] Ac tive 2023-04-07 N/A Unspecified atherosclerosis of [place] arteries of extremities, bilateral legs Active 2023-04-13 N/A Hemorrhoids Active 2023-08-10 N/A Onychomycosis Inactive 2023-08-21 N/A Chronic back painLumbar spin al stenosis Somatoform pain disorder Active 2023-10-21 N/A Sensory neuropathy Active 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-18 N/A Other problems related to tn dical facilities and other health care Active 2024-05-12 N/A Mixed stress and urge urinary incontinence Active 2025-02-18 N/A History of fallImpaired gait and mobility Active 2025-02-20 N/A Encounters Encounters Type Facility Date of Service Diagnosis/Co mplaint New patient,40-59min; chronic exacerbation, 2 stable chronic or 1 acute illness add add modifier 95 for video (do not use for phone, instead use 08129-24) [facility] Noninfective gastroenteritis and colitis, unspecifiedRepeated [...] sitesSacroiliitis, not elsewhere classifiedAthscl heart disease of [place] cor art w unsp ang pctrsPeripheral vascular disease, unspecified New patient,40-59min; chronic exacerbation, 2 stable chronic or 1 acute illness add add modifier 95 for video (do not use for phone, instead use 22828-15) [facility] New patient,40-59min; chronic exacerbation, 2 stable chronic or 1 acute illness add add modifier 95 for video (do not use for phone, instead use 76897-75) [facility] New patient,40-59min; chronic exacerbation, 2 stable chronic or 1 acute illness add add modifier 95 for video (do not use for phone, instead use 54283-48) [facility] New patient,40-59min; chronic exacerbation, 2 stable chronic or 1 acute illness add add modifier 95 for video (do not use for phone, instead use 12322-52) [facility] New patient,40-59min; chronic exacerbation, 2 stable chronic or 1 acute illness add add modifier 95 for video (do not use for phone, instead use 94149-34) [facility] New patient,40-59min; chronic exacerbation, 2 stable chronic or 1 acute illness add add modifier 95 for video (do not use for phone, instead use 87006-53) [facility] New patient,40-59min; chronic exacerbation, 2 stable chronic or 1 acute illness add add modifier 95 for video (do not use for phone, instead use 10338-19) [facility] 04[place] New patient,40-59min; chronic exacerbation, 2 stable chronic or 1 acute illness add add modifier 95 for video (do not use for phone, instead use 13738-17) [facility]23 Unlisted special service; to be used for medical record reviews and reporting CPTII codes (1111F, etc) [facility]2023 Other specified counseling Unlisted special service; to be used for medical record reviews and reporting CPTII codes (1111F, etc) [facility] Unlisted special service; to be used for medical record reviews and reporting CPTII codes (1111F, etc) [facility]23 No Data Available [facility] 08[place]10[place]2023 Body mass index (BMI) 45.0-4 9.9, adultPrediabetesMorbid (severe) obesity due to excess caloriesTinea unguiumLumbago with sciatica, left sideLumbago with sciatica, right sideOther chronic painOther intervertebral disc degeneration, lumbar region No Data Available [facility]23 No Data Available [facility] 08[place]2023 No Data Available [facility] 10/21/2023 Dorsalgia, unspecifiedOther chronic painMorbid (severe) obesity due to excess caloriesOther specified personal risk factors, not elsewhere classified No Data Available [facility] 10/[place]/2023 Estab. patient 30-39min; chronic exacerbation, 2 stable chronic or 1 acute illness add add modifier 95 for video, (do not use for phone, instead use 91188-14) [facility] 05[place]2024 Type 2 diabetes mellitus wit h diabetic chronic kidney diseaseChronic kidney disease, stage 3bRepeated fallsUnspecified hearing loss, left earTinnitus, left earUnspecified hemorrhoidsOther specified postprocedural statesLumbago with sciatica, left sideLumbago with sciatica, right sideOther chronic painOther intervertebral disc degeneration, lumbar regionIdiopathic chronic gout, unspecified site, without tophus (tophi)Polyosteoarthritis, unspecifiedSchizophrenia, unspecifiedAthscl heart disease of [place] cor art w unsp ang pctrsType 2 diabetes w diabetic peripheral angiopath w/o gangreneUnsp athscl [place] arteries of extremities, bilateral legsChronic obstructive pulmonary [...] (do not use for phone, instead use 62490-94) [facility] Estab. patient 30-39min; chronic exacerbation, 2 stable chronic or 1 acute illness add add modifier 95 for video, (do not use for phone, instead use 13151-99) [facility] Estab. patient 30-39min; chronic exacerbation, 2 stable chronic or 1 acute illness add add modifier 95 for video, (do not use for phone, instead use 23084-03) [facility] 05[place]/20[place] Estab. patient 30-39min; chronic exacerbation, 2 stable chronic or 1 acute illness add add modifier 95 for video, (do not use for phone, instead use 45546-17) [facility] 05[place] Estab. patient 30-39min; chronic exacerbation, 2 stable chronic or 1 acute illness add add modifier 95 for video, (do not use for phone, instead use 08805-63) [facility] 05/[place]/20[place] Estab. patient 30-39min; chronic exacerbation, 2 stable chronic or 1 acute illness add add modifier 95 for video, (do not use for phone, instead use 04637-85) [facility] 05/[place]24 No Data Available [facility] 05/[place]/2024 Type 2 diabetes mellitus wit h diabetic chronic kidney diseaseChronic kidney disease, stage 3b No Data Available [facility] 05[place]2024 No Data Available [facility] 06/[place]/2024 Type 2 diabetes mellitus wit h diabetic chronic kidney diseaseChronic kidney disease, stage 3b No Data Available [facility] 06/[place]/2024 Unlisted special service; to be used for medical record reviews and reporting CPTII codes (1111F, etc) [facility] [place] Other specified counseling Unlisted special service; to be used for medical record reviews and reporting CPTII codes (1111F, etc) [facility] [place] 09/[place] Unlisted special service; to be used [...] phone [facility]/18/20[place] Estab. patient 20-29min; 1 stable chronic or 2 minor; add add modifier 95 for video, modifier 93 for phone [facility] 02/18/2025 Noninfective gastroenteritis and colitis, unspecifiedRepeated [...] to conditions classified elsewhereAthscl heart disease of [place] cor art w unsp ang pctrsPeripheral vascular disease, unspecifiedUnsp athscl [place] arteries of extremities, bilateral legsChronic obstructive pulmonary [...] modifier 95 for video, modifier 93 for [facility] 02/18/20[place] Estab. patient 20-29min; 1 stable chronic or 2 minor; add add modifier 95 for video, modifier 93 for [facility] 02/18/2025 Estab. patient 20-29min; 1 stable chronic or 2 minor; add add modifier 95 for video, modifier 93 for [facility] 02/18/2025 Estab. patient 20-29min; 1 stable chronic or 2 minor; add add modifier 95 for video, modifier 93 for [facility] 02/18/2025 Estab. patient 20-29min; 1 stable chronic or 2 minor; add add modifier 95 for video, modifier 93 for [facility] 02/18/2025 Estab. patient 20-29min; 1 stable chronic or 2 minor; add add modifier 95 for video, modifier 93 for phone [facility] 02[place]18/2025 Estab. patient 20-29min; 1 stable chronic or 2 minor; add add modifier 95 for video, modifier 93 for phone [facility] 02/18/2025 Vital Signs Date of Collection Vitals [...] (do not use for phone, instead use 50947-32) 56826 2023-04-07 No Data Available No Data Availa [...] reviews and reporting CPTII codes (1111F, etc) 38544 2023-07-01 No Data Available No Data Availa ble SBP < 130 (3074F) 3074F 2023-07-01 No Data Available No Data Available DBP <80 (3078F) 3078F 2023-07-01 No Data Available No Data Available No Data Available 53241 2023-08-10 No Data Available No Data Available Medication List Documented (1159F) 1159F 2023-08-10 No Data Available No Data Lena ilable BMI obtained (3008F) 3008F 2023-08-10 No Data Availab le No Data Available No Data Available 66900 2023-10-21 No Data Available No Data Available Medication List Documented (1159F) 1159F 2023-10-21 No Data Available No Data Lena ilable Estab. patient 30-39min; chronic exacerbation, 2 stable chronic or 1 acute illness add add modifier 95 for video, (do not use for phone, instead use 82432-83) 95570 2024-05-11 No Data Available No Data Availa [...] Available No Data Available No Data Available 32373 2024-05-14 No Data Available No Data Available Medication List Documented (1159F) 1159F 2024-05-14 No Data Available No Data Lena ilable No Data Available 68464 2024-06-20 No Data Available No Data Available Medication List Documented (1159F) 1159F 2024-06-20 No Data Available No Data Lena ilable Unlisted special service; to be used for medical record reviews and reporting CPTII codes (1111F, etc) 12320 2024-09-04 No Data Available No Data Availa ble SBP >= 140 3077F 2024-09-04 No Data Available No Data Available DBP >=90 3080F 2024-09-04 No Data Available No Data Available Estab. patient 10-29min; 1 minor problem; add add modifier 95 for video, modifier 93 for phone 72038 2024-12-18 No Data Available No Data Availa ble Medication List Documented (1159F) 1159F 2024-12-18 No Data Available No Data Lena ilable BMI obtained (3008F) 3008F 2024-12-18 No Data Availab le No Data Available Estab. patient 20-29min; 1 stable chronic or 2 minor; add add modifier 95 for video, modifier 93 for phone 51788 2025-02-18 No Data Available No Data Availa [...] rheumatoid factor, multiple sitesAtherosclerotic heart disease of [place] coronary artery with unspecified angina pectoris;Peripheral vascular [...] discChronic gouty arthritis;Generalized osteoarthritisSchizophreniaAtherosclerotic heart disease of [place] coronary artery with unspecified angina pectoris;Peripheral vascular disease, unspecifiedUnspecified atherosclerosis of [place] arteries of extremities, bilateral legsChronic obstructive pulmonary [...] to conditions classified elsewhereAtherosclerotic heart disease of [place] coronary artery with unspecified angina pectoris;Peripheral vascular disease, unspecifiedUnspecified atherosclerosis of [place] arteries of extremities, bilateral legsChronic obstructive pulmonary [...] for weight clinic - also endocr for [facility] MASending to podiatry per pt request.Also needs [...] area that had available staff.Pt to call [facility] and get name of PT providers in her area that are covered.Will investigate weight loss clinics.Pt to look for back exercises on YouTube, activity as tolerated.Will FU.BMI 49.25send to weight clinic but not [place]referral for weight clinic - also endocr for [facility] [place]10/21/2023Have not been able to find clinic that is covered by [facility] in er area. Pt to call [facility] and find list of names [...] portal notes, I70.203 - Unspecified atherosclerosis of [place] arteries of extremities, bilateral legs continues to take albuterol sulfatePlease call CB ifIncreased SOB,or if patient falls.Pain that radiates to vaginaHas seen PCPhas referral to GI but is going to cancelEd not to cancel, get transportBMI 52.08send to weight clinic but not [place] 08/[place]/2023referral for weight clinic - also endocr for [facility] [place]10/21/2023Have not been able to find clinic that is covered by [facility] in er area. Pt to call [facility] and find list of names [...] area that had available staff.Pt to call [facility] and get name of PT [...] our conversation of three days ago. Her PUBLIC HEALTH SPECIALIST is supposed to go tonight or tomorrow [...] our conversation of three days ago. Her PUBLIC HEALTH SPECIALIST is supposed to go tonight or tomorrow [...] mg dose. She will be traveling to [place] so she is to ask for emergency [...] our conversation of three days ago. Her PUBLIC HEALTH SPECIALIST is supposed to go tonight or tomorrow [...] mg dose. She will be traveling to [place] so she is to ask for emergency [...] for weight clinic - also endocr for [facility]10/21/2023Have not been able to find clinic that is covered by [facility] in er area. Pt to call [facility] and find list of names [...] support person: son / Transfer member to [address] [place] [address]/ Quetiapine 50mg PO q12h PRN agitation/ Remind [...] weight lossWill be sending to endo/weight loss clinicStablestatinMI portal notes, I70.203 - Unspecified atherosclerosis of [place] arteries of extremities, bilateral legs Stablealbuterol sulfateMonitor [...]
--- OUTSIDE RECORDS SUMMARY | 2025-03-28 09:50 | XMS_ITS | Encounter Summary ---
Author Organization [employer] Address [address] [place] [address] [address] [address] Care Team Providers Care Systems Engineering Manager Name Role Phone Violeta Boo MD Primary Care Provide r Reason for Visit * Reason Comments Med Refill Encounter Details Date Type Department Care Team (Late Contact Info) Description 02/13/2023 Refill [facility] [address] [place] [address] [phone] Cassy Starks MD [address] [place] [address] [phone] Social History Tobacco Use Types Packs/Day Years [...] Description 05/23/2025 9:00 AM EDT Office Visit [facility] [address] [place], [place] [phone] Violeta Boo MD [address] [place], [place] [phone] 06/07/2025 9:30 AM EDT Office Visit [facility] [address] [place] [address] Angella Negrete, OD [address] [place] [address] documented as of this encounter Visit Diagnoses Not on filedocumented in this encounter Care Teams Systems Engineering Manager Relationship Specialty Start Date End Date Violeta Boo MD [address] [place], [place] [phone] PCP - General Family Medicine 05/21/22 documented as of this encounter
--- OUTSIDE RECORDS SUMMARY | 2025-03-28 09:50 | XMS_ITS | Encounter Summary ---
Author Organization [facility], Address [address] [place] [address] Phone Care Team Providers Care Integration Aide Name Role Phone Violeta Boo MD Primary Care Provide r Encounter Details Date Type Department Care Team (Late Contact Info) Description 02/13/2024 Documentation Only [facility] [address] [place] [address] Rowena Knowles [address] [place] [phone] Social History Tobacco Use Types Packs/Day Years [...] [facility] [address] [place] [address] Shailesh Vallejo MD [address] [place] [address] [place] [address] documented as of this encounter Visit Diagnoses Not on filedocumented in this encounter Care Teams Integration Aide Relationship Specialty Start Date End Date Violeta Boo MD [address] [place] [phone] PCP - General Internal Medicine 03/21/23 documented as of this encounter
--- OUTSIDE RECORDS SUMMARY | 2025-03-28 09:50 | XMS_ITS | Clinical Summary ---
Author Organization [facility], Address [address] [place] [address] [place] [address] Phone Care Team Providers Care Music Artist Name Role Phone Violeta Boo MD Primary [...] every morning and evening 0 Active fexofenadine (PMA) 180 MG tablet Take 180 mg by [...] Diagnosed Date Resolved Date Gout 02/12/2020 06/15/2021 halfway use of nonsteroida l antiinflammatories 02/12/2020 06/15/2021 Encounters Date Type Department Care Team Description 03/20/2025 Documentation Only [facility], [address] [place] [address] Rowena Knowles 03/19/2025 1:30 PM EDT Office Visit [facility] [address] [place] [address] Shailesh Vallejo MD Stage 3b chronic kidney disease (HCC) (Primary Dx); Essential (primary) hypertension; Renal disorder due to type 2 diabetes mellitus <Other diabetic kidney complication> (HCC) 03/18/2025 Orders Only [facility] [address] [place] [address] Shailesh Vallejo MD Stage 3b chronic kidney [...] [facility] [address] [place] [phone] Shailesh Vallejo MD [address] [facility] [place] [phone] Health Maintenance Due Date Last Done Comments [...] AM EST) Hemoglobin A1C 7.1(H) (4.0-5.6) % [facility] Comment: MONITORING: In known diabetic patients, hemoglobin A1c targets should be discussed with health care provider. DIAGNOSTIC USE: ??The [place] Diabetes Association (ADA) and the World Health [...] Supplement 1 Testing performed or reported by [facility], a Service of [facility], [address] [place] [id number] Yana Bales MD, Senior J2Ee Developer [facility]# [id number] Blood (Blood, Venous) 10/20/2022 9:21 AM EST 10/20/2022 9:22 AM EST us Shailesh Vallejo MD LAB BLOOD ORDERABLES Final Resul t [facility] from Last 3 Months or Most Recently Relevant to Health Maintenance Insurance [facility] ([id number]) Care Teams Music Artist Relationship Specialty Start Date End Date Violeta Boo MD [address] [place] [phone] PCP - General Internal Medicine 03/21/23
--- OUTSIDE RECORDS SUMMARY | 2025-03-28 09:50 | XMS_ITS | Encounter Summary ---
Author Organization [employer] Address [address] [facility] [address] [place] [address] Care Team Providers Care Fryer Line Helper Name Role Phone Violeta Boo MD Primary Care Provide r Reason for Visit * Reason Onset Date Comments Durable Medical Equipment 11/20/2024 Encounter Details Date Type Department Care Team ([facility] st Contact Info) Description 11/20/2024 Telephone [facility] [address] [place] [address] Violeta Boo MD [address] [place] [address] Durable Medical Equipment Social History Tobacco Use [...] any questions you can contact pt at [phone]. (Scottish Speaker) documented in this encounter Plan of Treatment Upcoming Encounters Date Type Department Care Team (Late st Contact Info) Description 05/23/2025 9:00 AM EDT Office Visit [facility] [address] [place] [address] Violeta Boo MD [address] [place] [address] 06/07/2025 9:30 AM EDT Office Visit [facility] [address] [place] [address] Angella Negrete OD [address] [place] [address] documented as of this encounter Visit Diagnoses Not on filedocumented in this encounter Additional Health Concerns Assessment Noted Time PHQ-9 Depression Total Score: 17 024 11:23 AM EDT documented as of this encounter Care Teams Fryer Line Helper Relationship Specialty Start Date End Date Violeta Boo MD [address] [place] [address] PCP - General Family Medicine 05/21/22 documented as of this encounter
--- OUTSIDE RECORDS SUMMARY | 2025-03-28 09:50 | XMS_ITS | Encounter Summary ---
Author Organization [facility], Address [address] [place] [address] Phone Care Team Providers Care Research Assoc Name Role Phone Violeta Boo MD Primary Care Provide r Encounter Details Date Type Department Care Team (Late Contact Info) Description 10/22/2022 Documentation Only [facility] [address] [place] [phone] Jazmin Powell PA Social History Tobacco Use [...] Visit [facility] [address] [place] [phone] Shailesh Vallejo MD [address] [place] [address] [place] [phone] documented as of this encounter Visit Diagnoses Not on filedocumented in this encounter Care Teams Research Assoc Relationship Specialty Start Date End Date Violeta Boo MD [address] [phone] PCP - General Internal Medicine 03/21/23 documented as of this encounter
--- OUTSIDE RECORDS SUMMARY | 2025-03-28 09:50 | XMS_ITS | Encounter Summary ---
Author Organization [facility], Address [address] [place] [address] Phone Care Team Providers Care Supervisor Paper Coating Name Role Phone Violeta Boo MD Primary Care Provide r Encounter Details Date Type Department Care Team (Late Contact Info) Description 03/20/2025 Documentation Only [facility] [address] [place] [address] Rowena Knowles [address] [place] [phone] Social History Tobacco Use Types Packs/Day Years [...] [facility] [address] [place] [address] Shailesh Vallejo MD [address] [place] [address] [place] [address] documented as of this encounter Visit Diagnoses Not on filedocumented in this encounter Care Teams Supervisor Paper Coating Relationship Specialty Start Date End Date Violeta Boo MD [address] [place] [phone] PCP - General Internal Medicine 03/21/23 documented as of this encounter
--- OUTSIDE RECORDS SUMMARY | 2025-03-28 09:50 | XMS_ITS | Encounter Summary ---
Author Organization [employer] Address [address] [place] [address] [address] [place] [address] Care Team Providers Care Layup Worker Name Role Phone Violeta Boo MD Primary Care Provide r Encounter Details Date Type Department Care Team ([facility] Contact Info) Description 03/22/2023 Orders Only [facility] CHC MED & PEDS [address] [place] [address] Brittany Epps LPN Social History Tobacco Use [...] Upcoming Encounters Date Type Department Care Team ([facility] Contact Info) Description 05/23/2025 9:00 AM EDT Office Visit [facility] MEDICINE [address] [place] [address] Violeta Boo MD [address] [place], [place] [phone] 06/07/2025 9:30 AM EDT Office Visit [facility] OPTOMETRY [address] [place], [place] [phone] Angella Negrete, OD [address] [place], [place] [phone] documented as of this encounter Visit Diagnoses Not on filedocumented in this encounter Care Teams Layup Worker Relationship Specialty Start Date End Date Violeta Boo MD [address] [place], [place] [phone] PCP - General Family Medicine 05/21/22 documented as of this encounter
--- OUTSIDE RECORDS SUMMARY | 2025-03-28 09:50 | XMS_ITS | Encounter Summary ---
Author Organization [employer] Address [address] [place] [address] [address] [address] Care Team Providers Care Channeling Machine Operator Name Role Phone Violeta Boo MD Primary Care Provide r Reason for Visit * Reason Onset Date Comments Appointment Request 02/17/2023 Encounter Details Date Type Department Care Team ([facility] Contact Info) Description 02/17/2023 Telephone [facility] MEDICINE [address] [place] [address] Violeta Boo MD [address] [place] [address] Appointment Request Social History Tobacco Use Types [...] message previously sent. Please contact pt at [phone] Portuguese Speaker * Telephone Encounter - Shay Navarro - 02/17/2023 1:16 PM EDT Tc from pt requesting to r/s appt for Follow up on 02/17/2023. Please contact pt at [phone] Portuguese Speaker documented in this encounter Plan of Treatment Upcoming Encounters Date Type Department Care Team (Late st Contact Info) Description 05/23/2025 9:00 AM EDT Office Visit [facility] MEDICINE [address] [place] [address] Violeta Boo MD [address] [place] [address] 06/07/2025 9:30 AM EDT Office Visit [facility] OPTOMETRY [address] [place] [address] Caden, Angella, OD [address] [place] [address] documented as of this encounter Visit Diagnoses Not on filedocumented in this encounter Care Teams Channeling Machine Operator Relationship Specialty Start Date End Date Violeta Boo MD [address] [place] [address] PCP - General Family Medicine 05/21/22 documented as of this encounter
--- OUTSIDE RECORDS SUMMARY | 2025-03-28 09:50 | XMS_ITS | Encounter Summary ---
Author Organization [employer] Address [address] [facility] [address] [place] [address] Care Team Providers Care Stunt Man Name Role Phone Violeta Boo MD Primary Care Provide r Reason for Visit * Reason Comments Med Refill Encounter Details Date Type Department Care Team ([facility] st Contact Info) Description 11/02/2024 Refill [facility] MEDICINE [address] [place] [address] Violeta Boo MD [address] [place] [address] Pain Social History Tobacco Use Types Packs/Day [...] Description 05/23/2025 9:00 AM EDT Office Visit [facility] MEDICINE [address] [place] [address] Voileta Boo MD [address] [place] [address] 06/07/2025 9:30 AM EDT Office Visit [facility] OPTOMETRY [address] [place] [address] Caden, Angella, OD [address] [place] [address] documented as of this encounter Visit Diagnoses Diagnosis Pain Generalized pain documented in this encounter Additional Health Concerns Assessment Noted Time PHQ-9 Depression Total Score: 17 024 11:23 AM EDT documented as of this encounter Care Teams Stunt Man Relationship Specialty Start Date End Date Violeta Boo MD [address] [place] [address] PCP - General Family Medicine 05/21/22 documented as of this encounter
--- OUTSIDE RECORDS SUMMARY | 2025-03-28 09:50 | XMS_ITS | Encounter Summary ---
Author Organization [employer] Address [address] [facility] [address] [address] Care Team Providers Care Control Operator Flow Coat Name Role Phone Violeta Boo MD Primary Care Provide r Encounter Details Date Type Department Care Team (Late st Contact Info) Description 11/25/2022 Telephone [facility] MEDICINE [address] [place] [address] Violeta Boo MD [address] [place], [place] [phone] Social History Tobacco Use Types Packs/Day Years [...] [facility] MEDICINE [address] [place] [address] Violeta Boo MD [address] [place] [address] 06/07/2025 9:30 AM EDT Office Visit [facility] OPTOMETRY [address] [place], [place] [phone] Angella Negrete OD [address] [place] [address] documented as of this encounter Visit Diagnoses Not on filedocumented in this encounter Care Teams Control Operator Flow Coat Relationship Specialty Start Date End Date Violeta Boo MD [address] [place], [place] [phone] PCP - General Family Medicine 05/21/22 documented as of this encounter
--- OUTSIDE RECORDS SUMMARY | 2025-03-28 09:50 | XMS_ITS | Encounter Summary ---
Author Organization [employer] Address [address] [facility] [address] [place] [address] Care Team Providers Care Laborer Cook House Name Role Phone Violeta Boo MD Primary Care Provide r Reason for Visit * Reason Onset Date Comments Referral 12/07/2024 Encounter Details Date Type Department Care Team ([facility] st Contact Info) Description 12/07/2024 Telephone [facility] MEDICINE [address] [place] [address] Violeta Boo MD [address] [place] [address] Referral Social History Tobacco Use Types Packs/Day [...] 12/07/2024 11:04 AM EST [facility] states wrong referral was sent over she's requestingPhysical Therapy referral to be [facility] [phone]. documented in this encounter Plan of Treatment Upcoming Encounters Date Type Department Care Team (Late st Contact Info) Description 05/23/2025 9:00 AM EDT Office Visit [facility] MEDICINE [address] [place] [address] Violeta Boo MD [address] [place] [address] 06/07/2025 9:30 AM EDT Office Visit [facility] OPTOMETRY [address] [place] [address] Angella Negrete OD [address] [place] [address] documented as of this encounter Visit Diagnoses Not on filedocumented in this encounter Additional Health Concerns Assessment Noted Time PHQ-9 Depression Total Score: 17 024 11:23 AM EDT documented as of this encounter Care Teams Laborer [employer] House Relationship Specialty Start Date End Date Violeta Boo MD [address] [place] [address] PCP - General Family Medicine 05/21/22 documented as of this encounter
--- OUTSIDE RECORDS SUMMARY | 2025-03-28 09:50 | XMS_ITS | Clinical Summary ---
Author Organization [address] [facility] Address [address] [place] [address] Phone Care Team Providers Care Drop Hammer Set Up Operator Name Role Phone Violeta [...] osteoarthritis of both knees 10/08/2024 Psychotic disorder ([facility] V24, [facility] [place] Tubular adenoma of colon 10/08/2024 Dyslipidemia [...] appointment Onychomycosis 03/08/2023 Type 2 diabetes mellitus ([facility] V24, [facility] V 28) 01/31/2023 Otitis externa 12/16/2022 Overview [...] Chronic gouty arthritis 09/08/2018 Episodic mood disorder ([facility] V24) 08/08/2018 Generalized osteoarthritis 08/08/2018 Morbid obesity ([facility] V24, [facility] V28) 2017 Overview (10/08/2024): Last Assessment & Plan: Discussed re weight reduction options including exercise, life style modifications, diet, referral to command and control specialist. Discussed re lower calorie intake, increase dietary fiber Pt agreed to be referred to dietitian. Non-cardiac chest pain 08/08/2018 Seasonal allergies 08/08/2018 Unintended awareness under g eneral anesthesia during procedure 08/08/2018 Encounters Date Type Department Care Team Description 01/16/2025 1:00 PM EST Office Visit [facility] - [place] [address] [facility] [address] [place] [phone] Maury Godoy, DPM Dermatophytosis of nail (Primary Dx); Tinea pedis of both feet; Pain in toe of right foot; Pain in toe of left foot; Corns and callosities; Diabetic mononeuropathy simplex ([facility] [place], [facility] V[place]); Type II diabetes mellitus with peripheral circulatory disorder ([facility] [place], [facility] V28); Acquired hallux valgus of left foot; [...] AM EDT Office Visit [facility] [address] [phone] Maury Godoy, DPM [address] [address] Health Maintenance Due Date Last Done Comments [...] Results * Annual BMP Blood Test (03/01/2024) [facility] Annual BMP Blood Test Abstracted Historical Provider HEALTH MAINTENANCE Final Result * Hemoglobin A1c (08/09/2022) [facility] Hemoglobin A1C 0.0 % Comment:No Interpretation, A bstracted Blood Venous blood specimen / Unknown Historical Provider LAB BLOOD ORDERABLES Almaz l Result * Lipid panel (03/15/2022) [facility] LDL/HDL Ratio 0 Comment:No Interpretation, A [...] HEALTHCARE MEDICARE [place]ICAID [place] Care Teams Drop Hammer Set Up Operator Relationship Specialty Start Date End Date Violeta Boo MD [address] [phone] PCP - General 03/29/23
--- OUTSIDE RECORDS SUMMARY | 2025-03-28 09:50 | XMS_ITS | Encounter Summary ---
Author Organization [employer] Address [address] [facility] [address] [place] [address] Care Team Providers Care Diamond Cutter Name Role Phone Violeta Boo MD Primary Care Provide r Reason for Visit * Reason Onset Date Comments Referral 12/08/2022 Encounter Details Date Type Department Care Team ([facility] st Contact Info) Description 12/08/2022 Telephone [facility] MEDICINE [address] [place] [address] Violeta Boo MD [address] [place] [address] Referral Social History Tobacco Use Types Packs/Day [...] 12/08/2022 2:55 PM EST Rufino Pagan with [facility] requesting a new referral for colorectal Surgery at [address] [place] [address] [place] [address]. Ej stated that a provider from their got in contact With Dr. Berkowitz, and Dr. Berkowitz advised provider that it okay for pt to receive a referral. They are now requesting a new referral from PCP, in order for pt to be ssen. If any question please contact bill at [phone] documented in this encounter Plan of Treatment Upcoming Encounters Date Type Department Care Team (Late st Contact Info) Description 05/23/2025 9:00 AM EDT Office Visit [facility] MEDICINE [address] [place] [address] Violeta Boo MD [address] [place] [address] 06/07/2025 9:30 AM EDT Office Visit [facility] OPTOMETRY [address] [place] [address] Angella Negrete, OD 230 [place] [address] documented as of this encounter Visit Diagnoses Not on filedocumented in this encounter Care Teams Diamond Cutter Relationship Specialty Start Date End Date Violeta Boo MD [address] [place] [address] PCP - General Family Medicine 05/21/22 documented as of this encounter
--- OUTSIDE RECORDS SUMMARY | 2025-03-28 09:50 | XMS_ITS | Clinical Summary ---
Author Organization [employer] Address [address] [place] [address] 7t [place] [address] Care Team Providers Care Assembler Musical Instruments Name Role Phone Violeta Boo MD Primary [...] other day. Active Blood Glucose Monitoring Suppl (Wikia Verio Flex System) w/Device kit USE DIRECTED [...] (08/13/2024 1:13 PM EDT): Being follow by GROUP SUPERVISOR YARD US is pending Vaginal pain 03/29/2024 Rectal [...] on scalp once per day and FU loading shovel oiler. Otitis externa 12/16/2022 Assessment & Plan (12/16/2022 [...] exercise, life style modifications, diet, referral to allergy and immunology specialist. Discussed re lower calorie intake, increase dietary fiber Pt agreed to be referred to dietitian. 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 04/30/2024 Encounters Date Type Department Care Team Description 03/26/2025 Telephone [facility] [address] [place] [address] Violeta Boo MD No Show 03/25/2025 Telephone [facility] [address] [place] [address] Violeta Boo MD call back needed 03/25/2025 Telephone [facility] [address] [place] [address] Violeta Boo MD Chart Prep 03/19/2025 Orders Only [facility] External Provider, [facility] 02/21/2025 Telephone [facility] [address] [place] [address] Violeta Boo MD Durable Medical Equipment 02/01/2025 Orders Only GENERIC EXTERNAL DATA DEPARTMENT Provider, Generic External Data 01/30/2025 Telephone [facility] [address] [place] [phone] Violeta Boo MD Appointment Request 01/29/[address] [address] Violeta Boo MD Appointment Request 01/29/[address] [address] Violeta Boo MD Housing Form (The patient called regarding a reasonable accommodation request, from [facility]. She stated that she is requesting a first floor, or elevator accessible apartment. She also needs a walk-in tub, grab bars in the bathroom, a hand-held shower head, and a safety rails for the toilet. She stated that she does not want the form faxed to [facility]. She will pick it up, once it has been approved by the provider.) 01/29/[address] [address] Violeta Boo MD Housing Form (The patient left a message, stating that she was returning a call regarding a housing form. I returned her call, and reached her voicemail. I left a message, asking her to return my call at ext [phone]. A reasonable accommodation form was received on 12/19/24 from [facility], but it does not state what accommodation the patient is requesting.) 01/28/2025 Patient Outreach [address] [place] [address] Violeta Boo MD Pre-visit Planning ((Unable to reach for PVP screening, LVM)) 01/23/2025 Telephone [facility] [address] [place] [phone] Angella Negrete, OD 01/23/2025 Telephone [facility] [address] [place] [address] Angella Negrete, OD 01/14/2025 Orders Only GENERIC EXTERNAL DATA DEPARTMENT Provider, Generic External Data 01/11/[address] [place] [address] Violeta Boo MD FYI ; Housing Form (I called the patient regarding a reasonable accommodation request, from [facility]. The form lists the patient's medical conditions, but it does not state what the accommodation is. I reached her voicemail, and left a message asking her to return my call at ext [phone].) 01/04/2025 Refill [facility] [address] [facility] [place] [address] Violeta Boo MD 01/01/2025 Telephone [facility] [address] [place] [address] Violeta Boo MD [facility] request from [...] Description 05/23/2025 9:00 AM EDT Office Visit [facility] [address] [place] [address] Violeta Boo MD 230 [place] [address] 06/07/2025 9:30 AM EDT Office Visit [facility] [address] [place] [address] Caden, Angella, OD [address] [place] [address] Health Maintenance Due Date Last Done Comments [...] EDT Narrative 03/19/2025 11:58 AM EDT ? [facility] ? [address] [facility] . ?[place] [address] ?[phone] ? Mammography Report ? Signed ? Patient: Karl Monterroso,Nasreen ?MR#: MM ?? [id number] ? : 1950 ?Acct:[id number] ? Age/Sex: 74 / F ?ADM Date: 05/06/25 ? Loc: HO.MAMMO ? Attending Dr: Solange Ojeda MD ? Ordering Physician: Solange Ojeda MD ?Results: ? Date of Service: 03/19/25 ?Follow Up: ? Procedure(s): XR DEXA axial skeleton ?? Accession Number(s): [id number] ? cc: Solange Ojeda MD; Violeta Boo MD ? EXAMINATION: ??DXA BONE DENSITY AXIAL ? HISTORY: ??L40.50 - Arthropathic psoriasis, unspecified ? TECHNIQUE: deCarta Dual energy absorptiometry (DEXA) ?? of the [...] is a trademark of the [employer]'s ?? [place] for Metabolic Bone Disease, a World Health Organization (WHO) ?? Collaborating Center. ? Electronically signed by: ??Carlos Eduardo Weathers MD ??03/19/2025 11:56 AM EDT ?? RP ? Dictated By: ?Carlos Eduardo Weathers MD ? Signed By: ?<Electronically signed by Carlos Eduardo Weathers MD in OV> ?03/19/25 1156 ? DD/ 0945 ? TD/TT: 03/19/25 1000 ? Quality Assurance Associate: ? Procedure Note Shireen Parsons - 03/19/2025 [facility] [address] [place] [address] Mammography Report Signed Patient: Violeta Alvarenga R#: [id number] : 2Acct:[id number] Age/Sex: 74 / FADM Date: 03/19/25 Loc: [facility] Attending Dr: Solange Ojeda MD Ordering Physician: Solange jOedaesults: Date of Service: 03/19/25Follow Up: Procedure(s): XR DEXA axial skeleton Accession Number(s): [id number] cc: Solange Ojeda MD; Violeta Boo MD EXAMINATION: DXA BONE DENSITY AXIAL HISTORY: L40.50 - Arthropathic psoriasis, unspecified TECHNIQUE: deCarta Dual energy absorptiometry (DEXA) of the lumbar [...] is a trademark of the [employer]'s [place] for Metabolic Bone Disease, a World Health Organization (WHO) Collaborating Center. Electronically signed by: Carlos Eduardo Weathers MD 03/19/2025 11:56 AM EDT RP Dictated By: Carlos Eduardo Weathers MD Signed By: <Electronically signed by Carlos Eduardo Weathres MD in OV> 03/19/25 1156 DD/ 0945 TD/TT: 03/19/25 1000 Quality Assurance Associate: [facility] External Provider IMG DXA PROCEDURES Final Result * FL Guidance in OR (02/01/2025 9:10 AM EDT) Anatomical Region Laterality Modality X-Ray Angiograph y 02/01/2025 9:10 AM EDT Narrative 02/01/2025 11:33 AM EDT ? [facility] ?[address] ?[place] [address] ? Fluoroscopy Report ? Signed ? Patient: Karl Violeta Monterroso V ?MR#: MM ?? [id number] ? : 1950 ?Acct:[id number] ? Age/Sex: 74 / F ?ADM Date: 02/01/25 ? Loc: HO.SSS ? Attending Dr: Jigar Trevino MD ? Ordering Physician: Jigar Trevino MD ?? Date of Service: 02/01/25 ?? Procedure(s): FL guidance in OR ?? Accession Number(s): [id number] ? cc: Violeta Boo MD; Jigar Trevino [...] DD/ 0910 ? TD/TT: 02/01/25 1100 ? Quality Assurance Associate: ? Procedure Note Donotrambointerpreter, Image - 02/01/[address] [address] Fluoroscopy Report Signed Patient: Violeta Alvarenga VMR#: [id number] : 2Acct:[id number] Age/Sex: 74 / FADM Date: 02/01/25 Loc: HO.SSS Attending Dr: Jigar Trevino MD Ordering Physician: Jigar Trevino MD Date of Service: 02/01/25 Procedure(s): FL guidance in OR Accession Number(s): [id number] cc: Violeta Boo MD; Jigar Trevino MD [...] 02/01/25 1131 DD/ 0910 TD/TT: 02/01/25 1100 Quality Assurance Associate: us [facility] External Provider IMG IR PROCEDURES Final Result * (ABNORMAL) Glucose, Whole Blood (02/01/2025 8:33 AM EDT) Glucose, Whole Blood 121(H) 60 - 115 mg/dL [facility] Comment:METER #: [id number] 02/01/2025 8:33 AM EDT 02/01/2025 8:43 AM EDT us Generic External Data Provider LAB BLOOD ORDERAB LES Final Result [facility] [address] [place] [address] [phone] * CBC auto differential (01/14/2025 10:48 AM EST) White Blood Count 10.1 4.8 - 10.8 X10*3/uL [facility] Red Blood Count 4.46 4.20 - 5.50 X10*6/uL [facility] Hemoglobin 13.6 12.0 - 16.0 g/dl [facility] Hematocrit 42.0 37.0 - 47.0 % [facility] Mean Corpuscular Volume 94.2 80.0 - 98.0 fL [facility] Mean Corpuscular Hemoglobin 30.5 27.0 - 33.0 pg [facility] Mean Corpuscular HGB Conc 32.4 31.0 - 35.0 g/dl [facility] Red Cell Distribution Width 14.6 11.0 - 16.0 % [facility] Platelet Count 330 160 - 400 X10*3/uL [facility] Mean Platelet Volume 10.8 9.4 - 12.3 fL [facility] Neutrophils Percent Auto 64.5 45 - 73 % [facility] Imm Gran Pct Auto 0.3 0.0 - 0.4 % [facility] Lymphocytes Percent Auto 24.8 20 - 40 % [facility] Monocytes Percent Auto 7.9 2 - 11 % [facility] Eosinophils Percent Auto 1.9 0 - 4 % [facility] Basophils Percent Auto 0.6 0 - 2 % [facility] NRBC Pct Auto 0.0 0.0 - 0.2 /100WBC [facility] Neutrophils Absolute Auto 6.5 2.0 - 8.3 x10*3/uL [facility] Imm Gran Abs Auto 0.03 0.00 - 0.03 X10*3/uL [facility] Lymphocytes Absolute Auto 2.5 1.2 - 4.9 X10*3/uL [facility] Monocytes Absolute Auto 0.8 0.1 - 1.2 X10*3/uL [facility] Eosinophils Absolute Auto 0.2 0.0 - 0.4 X10*3/uL [facility] Basophils Absolute Auto 0.1 0.0 - 0.2 X10*3/uL [facility] NRBC Abs Auto 0.000 0.0 - 0.012 X10*3/uL [facility] 01/14/2025 10:4 8 AM EST 01/14/2025 10:48 AM EST Generic External Data Provider LAB BLOOD ORDERAB LES Final Result Performing Organization Address [facility] de Phone Number [facility] [address] [place] [phone] * (ABNORMAL) Sed Rate by Modified Latosharen (01/14/2025 10:48 AM EST) Erythrocyte Sedimentation Rate 36(H) 0 - 20 MM/HR [facility] Comment:Patients with polycy themia and many hemoglobin abnormalitiesmay have depressed sed rates whereas patients with anemiamay have elevated sed rates. 01/14/2025 10:4 8 AM EST 01/14/2025 10:48 AM EST Generic External Data Provider LAB BLOOD ORDERAB LES Final Result Performing Organization Address [facility] Co de Phone Number [facility] [address] [place] [phone] * C-reactive Protein (01/14/2025 10:48 AM EST) C Reactive Protein 0.37 < or = 0.50 mg/dL [facility] 01/14/2025 10:4 8 AM EST 01/14/2025 10:48 AM EST us Generic External Data Provider LAB BLOOD ORDERAB LES Final Result Performing Organization Address City/[facility]/ZIP Co de Phone Number [facility] [address] [place] [address] [phone] * Uric acid (01/14/2025 10:48 AM EST) Uric Acid 5.0 2.4 - 5.7 mg/dL [facility] 01/14/2025 10:4 8 AM EST 01/14/2025 10:48 AM EST Generic External Data Provider LAB BLOOD ORDERAB LES Final Result Performing Organization Address [facility] de Phone Number [facility] [address] [place] [address] [phone] * (ABNORMAL) Comprehensive Metabolic Panel (01/14/2025 10:48 AM EST) Pathologist [facility] Sodium 142 135 - 145 mmol/L [facility] Potassium 4.4 3.3 - 5.1 mmol/L [facility] Chloride 103 96 - 108 mmol/L [facility] Carbon Dioxide 29 22 - 29 mmol/L [facility] Anion Gap 14 12 - 20 [facility] Urea Nitrogen (BUN) 25(H) 9 - 16 mg/dL [facility] Creatinine, Serum 1.47(H) 0.5 - 1.4 mg/dL [facility] Estimated Glomerular Filt Rate 35 [facility] Comment:Chronic Kidney Disea se: Estimated GFR < 60 mL/min/1.44o9Vrpazn Kidney Disease: Estimated GFR < 15 mL/min/1.73m2 Glucose 100 60 - 115 mg/dL [facility] Calcium 9.7 8.4 - 10.2 mg/dL [facility] Bilirubin, Total 0.4 0.0 - 1.0 mg/dL [facility] Aspartate Amino Transferase 23 5 - 31 U/L [facility] Alanine Aminotransferase 19 0 - 31 U/L [facility] Total Protein 7.2 6.5 - 8.0 g/dL [facility] Albumin Level 3.8 3.5 - 5.0 g/dL [facility] Alkaline Phosphatase 138(H) 39 - 117 U/L [facility] 01/14/2025 10:4 8 AM EST 01/14/2025 10:48 AM EST us Generic External Data Provider LAB BLOOD ORDERAB LES Final Result [facility] [address] [place] [address] [phone] * BI Mammogram Screening Tomosynthesis Bilateral (08/30/2024 9:10 AM EDT) Anatomical Region Laterality Modality Breast Bilateral Mammography 08/30/2024 9:10 AM EDT Narrative 09/11/2024 12:30 PM EDT ? [facility] ? [address] ?[place] [address] ? Mammography Report ? Signed with Addenda ? Patient: Violeta Alvarenga V ?MR#: MM ?? [id number] ? : 1950 ?Acct:[id number] ? Age/Sex: 74 / F ?ADM Date: 08/30/24 ? Loc: HO.MAMMO ? Attending Dr: Violeta Pascual MD ? Ordering Physician: Violeta Boo MD ?Results: ?? 2Benign Findings ? Date of Service: 08/30/24 ?Follow Up: 1 Year From Orig ?? inal Mammogram ? Procedure(s): MM tomosynthesis screening BI ?? Accession Number(s): [id number] ? cc: Violeta Boo MD ?ADDENDUM ? [...] ? DD/ 0910 ? TD/TT: 08/30/[address] ? Quality Assurance Associate: ? Procedure Note Donotrambointerpreter, Image - 09/14/2024 [facility] [address] [place] [address] Mammography Report Signed with Addenda Patient: InaVioleta Spencer VMR#: [id number] : 1950cct:[id number] Age/Sex: 74 / FADM Date: 08/30/24 Loc: HO.MAMMO Attending Dr: Violeta Pascual MD Ordering Physician: Violeta Boo MDResults: 2Benign Findings Date of Service: 08/30/24Follow Up: 1 Year From Orig inal Mammogram Procedure(s): MM tomosynthesis screening BI Accession Number(s): [id number] cc: Violeta Boo MD ADDENDUM ADDENDUM #1 [...] OV> 09/11/24 1227 DD/ 9 TD/TT: 08/30/[address] Quality Assurance Associate: Violeta Pascual MD IMG BI PROCEDURES Shemar daylin Result - Final * POCT HGB A1C (08/13/2024 10:31 AM EDT) [facility] Hemoglobin A1C 6.0 4.0 - 6.0 % QC Media Lot # [id number] Lot# Expiration Date 6975 Blood 08/13/2024 10:3 1 AM EDT Violeta [...] Madi WADE et al. JUAN LUIS. 2013;310(19): 6800-6547 ?? (http://[employer] [facility]/faq/VVW863) Non-HDL Cholesterol 124 <130 mg/dL (calc) [facility] Comment: For patients with diabetes plus 1 major ASCVD risk ?? factor, treating to a non-HDL-C goal of <100 mg/dL ?? (LDL-C of <70 mg/dL) is considered a therapeutic ?? option. Triglycerides 190(H) <150 mg/dL [facility] 03/15/2022 9:22 AM EDT Leonard Perez MD LAB BLOOD ORDERABL ES Final Result Performing Organization Address [facility] Number [facility] [address] * HEPATITIS C ANTIBODY RFLX (01/02/2020 10:23 AM EST) HEPATITIS C ANTIBODY NONREACTIVE NONREACTIVE [facility] Comment: Antibodies to HCV not detected; does not exclude early acute HCV infection. 01/02/2020 10:2 3 AM EST Historical Provider HISTORICAL/NON ORDERABLE LABS Final Result Performing Organization Address [facility] Phone Number [facility] [address] from Last 3 Months or Most Recently Relevant to Health Maintenance Insurance [facility] DUAL COMPLETE Care Teams Assembler Musical Instruments Relationship Specialty Start Date End Date Violeta Boo MD [address] [place] [phone] PCP - General Family Medicine 05/21/22
--- OUTSIDE RECORDS SUMMARY | 2025-03-28 09:50 | XMS_ITS | Encounter Summary ---
Author Organization [employer] Address [address] [facility] [address] [place] [address] Care Team Providers Care Insulation Inspector Name Role Phone Violeta Boo MD Primary Care Provide r Encounter Details Date Type Department Care Team (Late Contact Info) Description 04/26/2023 Orders Only [facility] [address] [place] [address] Brittany Epps LPN Social History Tobacco Use [...] Office Visit [facility] [address] [place], [place] [phone] Violeta Boo MD [address] [place], [place] [phone] 06/07/2025 9:30 AM EDT Office Visit [facility] OPT[facility] [address] [place] [address] Angella Negrete, OD [address] [place] [address] documented as of this encounter Procedures Procedure Name Priority Date/Time Associated Diagnosis Comments XR LUMBAR SPINE 2-3 VIEWS Routine 05/05/2023 12:38 PM EDT documented in this encounter Results * XR Lumbar Spine 2-3 Views (05/05/2023 12:38 PM EDT) Anatomical Region Laterality Modality Spine, L-spine Radiographic Rena ging 05/05/2023 12:3 8 PM EDT Narrative 05/17/2023 7:08 PM EDT ? [facility] ?[address] ?[place] [address] ?XRay Report ? Signed ? Patient: Violeta Alvarenga V ?MR#: MM ?? [id number] ? : 1950 ?Acct:[id number] ? Age/Sex: 72 / F ?ADM Date: 05/05/23 ? Loc: HO.XRAY ? Attending Dr: Violeta Pascual MD ? Ordering Physician: Violeta Boo MD ?? Date of Service: 05/05/23 ?? Procedure(s): XR lumbar spine 2-3V ?? Accession Number(s): [id number] ? cc: Violeta Boo MD ? EXAMINATION: [...] 1903 ? DD/ 1238 ? TD/TT: ? Oncology Research Rn: SANA ? Procedure Note Jaqueline, Image - 05/17/[address] [address] XRay Report Signed Patient: Violeta Alvarenga VMR#: [id number] : 2Acct:[id number] Age/Sex: 72 / FADM Date: 05/05/23 Loc: HO.XRAY Attending Dr: Violeta Pascual MD Ordering Physician: Violeta Boo MD Date of Service: 05/05/23 Procedure(s): XR lumbar spine 2-3V Accession Number(s): [id number] cc: Violeta Boo MD EXAMINATION: XR LUMBOSACRAL [...] in OV> 05/17/23 1905 DD/ 1238 TD/TT: Oncology Research Rn: SANA [facility] External Provider IMG XR PROCEDURES Edited Result - Final documented in this encounter Visit Diagnoses Not on filedocumented in this encounter Care Teams Insulation Inspector Relationship Specialty Start Date End Date Violeta Boo MD [address] [place] [phone] PCP - General Family Medicine 05/21/22 documented as of this encounter
--- OUTSIDE RECORDS SUMMARY | 2025-03-28 09:51 | XMS_ITS | Encounter Summary ---
Author Organization [employer] Address [address] [facility] 7t [place] [address] Care Team Providers Care Foxer Name Role Phone Violeta Boo MD Primary Care Provide r Reason for Visit * Reason Onset Date Comments Durable Medical Equipment 10/13/2023 Encounter Details Date Type Department Care Team ([facility] st Contact Info) Description 10/13/2023 Telephone [facility] [address] [place] [address] Violeta Boo MD [address] [place], [place] [phone] Durable Medical Equipment Social History Tobacco Use [...] : 2xl Pullups Ensures Flavors Vanilla and Eleele Gloves Large Wipes Pt states insurance fax over request. Please contact pt at [phone] Romanian Speaker documented in this encounter Plan of Treatment Upcoming Encounters Date Type Department Care Team (Late st Contact Info) Description 05/23/2025 9:00 AM EDT Office Visit [facility] [address] [place] [address] Violeta Boo MD [address] [place] [address] 06/07/2025 9:30 AM EDT Office Visit [facility] OPT[facility] [address] [place] [address] Angella Negrete, OD [address] [place] [address] documented as of this encounter Visit Diagnoses Not on filedocumented in this encounter Care Teams Foxer Relationship Specialty Start Date End Date Violeta Boo MD [address] [place] [address] PCP - General Family Medicine 05/21/22 documented as of this encounter
--- OUTSIDE RECORDS SUMMARY | 2025-03-28 09:51 | XMS_ITS | Encounter Summary ---
Author Organization [employer] Address [address] [facility] [address] [place] [address] Care Team Providers Care Internet Sales Director Name Role Phone Violeta Boo MD Primary Care Provide r Encounter Details Date Type Department Care Team (Latest Contact Info) Description 05/27/2022 Abstract [facility] CONVERSIONS Dental, Provider, DDS Social [...] Description 05/23/2025 9:00 AM EDT Office Visit [facility] [address] [place] [address] Violeta Boo MD [address] [place] [address] 06/07/2025 9:30 AM EDT Office Visit [facility] OPTOMETRY [address] [place] [address] Angella Negrete, OD [address] [place] [address] documented as of this encounter Visit Diagnoses Not on filedocumented in this encounter Care Teams Internet Sales Director Relationship Specialty Start Date End Date Violeta Boo MD [address] [place] [address] PCP - General Family Medicine 05/21/22 documented as of this encounter
--- OUTSIDE RECORDS SUMMARY | 2025-03-28 09:51 | XMS_ITS | Encounter Summary ---
Author Organization [employer] Address [address] [facility] 7t [place] [address] Care Team Providers Care Accounts Payable Assistant Name Role Phone Violeta Boo MD Primary Care Provide r Reason for Visit * Reason Onset Date Comments call back needed 03/25/2025 Encounter Details Date Type Department Care Team ([facility] Contact Info) Description 03/25/2025 Telephone [facility] [address] [place] [address] Violeta Boo MD [address] [place] [address] call back needed Social History Tobacco Use [...] 2:17 PM EDT TC returned to Jessica [phone] and RN provided with dx codes for vertigo, ZOEY, moderate persistent asthma, essential HTN, CKD, generalized osteoarthritis, prediabetes, mood disorder, unstable gait, hyperlipidemia, low back pain and bilateral hearing deficit. Mattie verbalized understanding. Mattie to f/u PRN. * Telephone Encounter - Luis Enrique Downs - 03/25/2025 12:40 PM EDT TC from Mattie a nurse with [facility] would like a call back regarding ICD-10 codes [place] [phone] documented in this encounter Plan of Treatment Upcoming Encounters Date Type Department Care Team (Late st Contact Info) Description 05/23/2025 9:00 AM EDT Office Visit [facility] [address] [place] [address] Violeta Boo MD [address] [place], [place] [phone] 06/07/2025 9:30 AM EDT Office Visit [facility] OPT[facility] [address] [place], [place] [phone] Angella Negrete, OD [address] [place] [address] documented as of this encounter Visit Diagnoses Not on filedocumented in this encounter Additional Health Concerns Assessment Noted Time PHQ-9 Depression Total Score: 17 024 11:23 AM EDT documented as of this encounter Care Teams Accounts Payable Assistant Relationship Specialty Start Date End Date Violeta Boo MD [address] [place], [place] [phone] PCP - General Family Medicine 05/21/22 documented as of this encounter
--- OUTSIDE RECORDS SUMMARY | 2025-03-28 09:51 | XMS_ITS | Encounter Summary ---
Author Organization [facility], Address [address] [place] [address] Phone Care Team Providers Care Telemedicine Physician Name Role Phone Violeta Boo MD Primary Care Provide r Encounter Details Date Type Department Care Team (Late Contact Info) Description 05/05/2022 Documentation Only [facility] [address] [place] [address] Shailesh Vallejo MD [address] [place] [address] [place] [address] Social History Tobacco Use Types [...] Visit [facility] [address] [place] [address] Shailesh Vallejo MD [address] [place] [address] [place] [address] documented as of this encounter Visit Diagnoses Not on filedocumented in this encounter Care Teams Telemedicine Physician Relationship Specialty Start Date End Date Violeta Boo MD [address] [place] [phone] PCP - General Internal Medicine 03/21/23 documented as of this encounter
--- OUTSIDE RECORDS SUMMARY | 2025-03-28 09:51 | XMS_ITS | Encounter Summary ---
Author Organization [employer] Address [address] [facility] 7t [place] [address] Care Team Providers Care Basket Operator Name Role Phone Violeta Boo MD Primary Care Provide r Reason for Visit * Reason Onset Date Comments Durable Medical Equipment 02/21/2025 Encounter Details Date Type Department Care Team ([facility] st Contact Info) Description 02/21/2025 Telephone [facility] [address] [place] [address] Violeta Boo MD 230 [place] [address] Durable Medical Equipment Social History Tobacco Use [...] - 02/21/2025 1:34 PM EDT [place] [facility] [place] [facility] [place] she has been out of office [...] Visit [facility] [address] [place] [address] Violeta Boo MD 230 [place] [address] 06/07/2025 9:30 AM EDT Office Visit [facility] OPTOMETRY [address] [place] [address] Angella Negrete, JOSH 230 [place] [address] documented as of this encounter Visit Diagnoses Not on filedocumented in this encounter Additional Health Concerns Assessment Noted Time PHQ-9 Depression Total Score: 17 024 11:23 AM EDT documented as of this encounter Care Teams Basket Operator Relationship Specialty Start Date End Date Violeta Boo MD 230 [place] [address] PCP - General Family Medicine 05/21/22 documented as of this encounter
--- OUTSIDE RECORDS SUMMARY | 2025-03-28 09:51 | XMS_ITS | Encounter Summary ---
Author Organization [employer] Address 75 [facility] [address] [place] [address] Care Team Providers Care Ticket Speculator Name Role Phone Violeta Boo MD Primary Care Provide r Reason for Visit * Reason Onset Date Comments Chart Prep 03/25/2025 Encounter Details Date Type Department Care Team ([facility] st Contact Info) Description 03/25/2025 Telephone [facility] [address] [place] [address] Violeta Boo MD 230 [place] [address] Chart Prep Social History Tobacco Use Types [...] Description 05/23/2025 9:00 AM EDT Office Visit [facility] [address] [place] [address] Violeta Boo MD [address] [place] [address] 06/07/2025 9:30 AM EDT Office Visit [facility] OPTOMETRY [address] [place] [address] Angella Negrete, OD 230 [place] [address] documented as of this encounter Visit Diagnoses Not on filedocumented in this encounter Additional Health Concerns Assessment Noted Time PHQ-9 Depression Total Score: 17 024 11:23 AM EDT documented as of this encounter Care Teams Ticket Speculator Relationship Specialty Start Date End Date Violeta Boo MD [address] [place] [address] PCP - General Family Medicine 05/21/22 documented as of this encounter
--- OUTSIDE RECORDS SUMMARY | 2025-03-28 09:51 | XMS_ITS | Encounter Summary ---
Author Organization [employer] Address 75 [facility] [address] [place] [address] Care Team Providers Care Bodywork Therapist Name Role Phone Violeta Boo MD Primary Care Provide r Reason for Visit * Reason Onset Date Comments No Show 03/26/2025 Encounter Details Date Type Department Care Team ([facility] st Contact Info) Description 03/26/2025 Telephone [facility] MEDICINE 230 [place] [address] Violeta Boo MD 230 [place] [address] No Show Social History Tobacco Use Types [...] Description 05/23/2025 9:00 AM EDT Office Visit [facility] MEDICINE 230 [place] [address] Violeta Boo MD [address] [place] [address] 06/07/2025 9:30 AM EDT Office Visit [facility] OPTOMETRY [address] [place] [address] Caden, Angella, OD 230 [place] [address] documented as of this encounter Visit Diagnoses Not on filedocumented in this encounter Additional Health Concerns Assessment Noted Time PHQ-9 Depression Total Score: 17 024 11:23 AM EDT documented as of this encounter Care Teams Bodywork Therapist Relationship Specialty Start Date End Date Violeta Boo MD [address] [place] [address] PCP - General Family Medicine 05/21/22 documented as of this encounter
--- OUTSIDE RECORDS SUMMARY | 2025-03-28 09:51 | XMS_ITS | Encounter Summary ---
Author Organization [employer] Address 75 [facility] 7t [place] [address] Care Team Providers Care Metal Sander And Finisher Name Role Phone Violeta Boo MD Primary Care Provide r Reason for Visit * Reason Onset Date Comments Reasonable Accommodation Request 10/25/2022 I called regarding a reasonable accommodation form, from [facility] [employer]. The pt states that she will be getting a scooter, because she is no longer able to use a cane or a walker. She is requesting an apartment with elevator accessibility, because it would be easier for her to get in and out of her apartment. Encounter Details Date Type Department Care Team (Late st Contact Info) Description 10/25/2022 Telephone [facility] [address] [place] [address] [place] Reasonable Accommodation Request (I called regarding a reasonable accommodation form, from [facility] [employer]. The pt states that she will be [...] Description 05/23/2025 9:00 AM EDT Office Visit [facility] [address] [place] [address] Violeta Boo MD [address] [place] [address] 06/07/2025 9:30 AM EDT Office Visit [facility] OPTOMETRY [address] [place] [address] Caden, Angella, OD 230 [place] [address] documented as of this encounter Visit Diagnoses Not on filedocumented in this encounter Care Teams Metal Sander And Finisher Relationship Specialty Start Date End Date Violeta Boo MD [address] [place] [address] PCP - General Family Medicine 05/21/22 documented as of this encounter
--- OUTSIDE RECORDS SUMMARY | 2025-03-28 09:51 | XMS_ITS | Encounter Summary ---
Author Organization [employer] Address [address] [place] [address] 7t [place] [address] Care Team Providers Care Recovery Agent Name Role Phone Violeta Boo MD Primary Care Provide r Encounter Details Date Type Department Care Team (Late Contact Info) Description 08/03/2023 Orders Only [facility] [address] [place] [address] ProviderLibra MD Social History Tobacco Use Types [...] Description 05/23/2025 9:00 AM EDT Office Visit [facility] [address] [place], [place] [phone] Violeta Boo MD 230 [place] [address] 06/07/2025 9:30 AM EDT Office Visit [facility] OPTOMETRY [address] [place] [address] [phone] Angella Negrete, OD 230 [place] [address] documented as of this encounter Procedures Procedure Name Priority Date/Time Associated Diagnosis Comments HM COLONOSCOPY Routine 06/11/2022 documented in this encounter Results * Hm Colonoscopy (06/11/2022) Historical Provider HEALTH MAINTENANCE Final Result documented in this encounter Visit Diagnoses Not on filedocumented in this encounter Care Teams Recovery Agent Relationship Specialty Start Date End Date Violeta Boo MD 230 [place] [address] PCP - General Family Medicine 05/21/22 documented as of this encounter
--- OUTSIDE RECORDS SUMMARY | 2025-03-28 09:51 | XMS_ITS | Encounter Summary ---
Author Organization [employer] Address 75 [facility] 7t [place] [address] Care Team Providers Care Sampling Expert Name Role Phone Violeta Boo MD Primary Care Provide r Encounter Details Date Type Department Care Team ([facility] st Contact Info) Description 11/10/2023 Abstract [facility]INE [address] [place] [address] Violeta Boo MD 230 [place] [address] Social History Tobacco Use Types Packs/Day Years [...] Description 05/23/2025 9:00 AM EDT Office Visit [facility] MED[facility]INE [address] [place] [address] Violeta Boo MD [address] [place] [address] 06/07/2025 9:30 AM EDT Office Visit [facility] OPTOMETRY [address] [place] [address] Caden, Angella, OD 230 [place] [address] documented as of this encounter Visit Diagnoses Not on filedocumented in this encounter Care Teams Sampling Expert Relationship Specialty Start Date End Date Violeta Boo MD 230 [place] [address] PCP - General Family Medicine 05/21/22 documented as of this encounter
--- OUTSIDE RECORDS SUMMARY | 2025-03-28 09:51 | XMS_ITS | Encounter Summary ---
Author Organization [employer] Address 75 [facility] 7t [place] [address] Care Team Providers Care Cylinder Machine Operator Pulp Drier Name Role Phone Violeta Boo MD Primary Care Provide r Reason for Visit * Reason Comments Med Refill Encounter Details Date Type Department Care Team ([facility] st Contact Info) Description 03/22/2024 Refill [facility] MED[facility]INE 230 [place], [place] [phone] Violeta Boo MD 230 [place] [address] Dermatitis Social History Tobacco Use Types Packs/Day [...] 05/23/2025 9:00 AM EDT Office Visit [facility] MEDICINE [address] [place] [address] Violeta Boo MD 230 [place] [address] 06/07/2025 9:30 AM EDT Office Visit [facility] OPTOMETRY [address] [place] [address] Caden, Angella, OD 230 [place] [address] documented as of this encounter Visit Diagnoses Diagnosis Dermatitis Contact dermatitis and other eczema, due to unspecified cause documented in this encounter Care Teams Cylinder Machine Operator Pulp Drier Relationship Specialty Start Date End Date Violeta Boo MD [address] [place] [address] PCP - General Family Medicine 05/21/22 documented as of this encounter
--- OUTSIDE RECORDS SUMMARY | 2025-03-28 09:51 | XMS_ITS | Encounter Summary ---
Author Organization [facility] [place], Address [address] [place] [address] Phone Care Team Providers Care Histology Technician Name Role Phone Violeta Boo MD Primary Care Provide r Encounter Details Date Type Department Care Team (Late Contact Info) Description 05/05/2022 Documentation Only [facility] [address] [place] [address] Shailesh Vallejo MD [address] [place] [address] [place] [address] Social History Tobacco Use Types [...] Visit [facility] [address] [place] [address] Shailesh Vallejo MD [address] [place] [address] [place] [address] documented as of this encounter Visit Diagnoses Not on filedocumented in this encounter Care Teams Histology Technician Relationship Specialty Start Date End Date Violeta Boo MD [address] [place] [phone] PCP - General Internal Medicine 03/21/23 documented as of this encounter
--- OUTSIDE RECORDS SUMMARY | 2025-03-28 09:51 | XMS_ITS | Encounter Summary ---
Author Organization [employer] Address [address] [facility] 7t [place] [address] Care Team Providers Care Hearing Therapist Name Role Phone Violeta Boo MD Primary Care Provide r Reason for Visit * Reason Onset Date Comments Appt cancelation 03/02/2024 Encounter Details Date Type Department Care Team ([facility] st Contact Info) Description 03/02/2024 Telephone [facility] MED[facility]INE [address] [place] [address] Violeta Boo MD [address] [place] [address] Appt cancelation Social History Tobacco Use Types [...] 04/27 due to being referred to outside direct care specialist documented in this encounter Plan of Treatment Upcoming Encounters Date Type Department Care Team (Late st Contact Info) Description 05/23/2025 9:00 AM EDT Office Visit [facility] MED[facility]INE [address] [place] [address] Violeta Boo MD [address] [place] [address] 06/07/2025 9:30 AM EDT Office Visit [facility] OPTOMETRY [address] [place] [address] Caden, Angella, OD 230 [place] [address] documented as of this encounter Visit Diagnoses Not on filedocumented in this encounter Care Teams Hearing Therapist Relationship Specialty Start Date End Date Violeta Boo MD [address] [place] [address] PCP - General Family Medicine 05/21/22 documented as of this encounter
--- OUTSIDE RECORDS SUMMARY | 2025-03-28 09:51 | XMS_ITS | Encounter Summary ---
Author Organization [employer] Address [address] [facility] 7[address] [place] [address] Care Team Providers Care Valve Repairer Reclamation Name Role Phone Violeta Boo MD Primary Care Provide r Reason for Visit * Reason Onset Date Comments Appointment Request 01/29/2025 Encounter Details Date Type Department Care Team ([facility] st Contact Info) Description 01/29/2025 Telephone [facility] [address] [place] [address] Violeta Boo MD [address] [place] [address] Appointment Request Social History Tobacco Use Types [...] on 02/01 and can't walk after surgery. [phone] yi documented in this encounter Plan of Treatment Upcoming Encounters Date Type Department Care Team (Late st Contact Info) Description 05/23/2025 9:00 AM EDT Office Visit [facility] [address] [place] [address] Violeta Boo MD [address] [place] [address] 06/07/2025 9:30 AM EDT Office Visit [facility] OPTOMETRY [address] [place] [address] Angella Negrete, OD [address] [place] [address] documented as of this encounter Visit Diagnoses Not on filedocumented in this encounter Additional Health Concerns Assessment Noted Time PHQ-9 Depression Total Score: 17 024 11:23 AM EDT documented as of this encounter Care Teams Valve Repairer Reclamation Relationship Specialty Start Date End Date Violeta Boo MD [address] [place] [address] PCP - General Family Medicine 05/21/22 documented as of this encounter
--- OUTSIDE RECORDS SUMMARY | 2025-03-28 09:51 | XMS_ITS | Encounter Summary ---
Author Organization [employer] Address 75 [facility] [address] [place] [address] Care Team Providers Care Anatomic Pathology Manager Name Role Phone Violeta Boo MD Primary Care Provide r Encounter Details Date Type Department Care Team (Late st Contact Info) Description 08/17/2023 Abstract [facility] MED[facility]INE [address] [place] [address] [phone] Violeta Boo MD [address] [place] [address] [phone] Social History Tobacco Use Types Packs/Day Years [...] Description 05/23/2025 9:00 AM EDT Office Visit [facility] [address] [place] [address] [phone] Violeta Boo MD [address] [place] [phone] 06/07/2025 9:30 AM EDT Office Visit [facility] OPTOMETRY [address] [place], [place] [phone] Angella Negrete, OD [address] [place] [address] documented as of this encounter Visit Diagnoses Not on filedocumented in this encounter Care Teams Anatomic Pathology Manager Relationship Specialty Start Date End Date Violeta Boo MD [address] [place], [place] [phone] PCP - General Family Medicine 05/21/22 documented as of this encounter
--- OUTSIDE RECORDS SUMMARY | 2025-03-28 09:51 | XMS_ITS | Encounter Summary ---
Author Organization [employer] Address 75 [facility] 7t [place] [address] Care Team Providers Care Contract Specialist Name Role Phone Violeta Boo MD Primary Care Provide r Reason for Visit * Reason Onset Date Comments Appointment Request 11/11/2023 Encounter Details Date Type Department Care Team ([facility] Contact Info) Description 11/11/2023 Telephone [facility] MED[facility]INE [address] [place] [address] Violeta Boo MD [address] [place] [address] Appointment Request Social History Tobacco Use Types [...] due to being covid positive telegraphic typewriter installer did cancel appt documented in this encounter Plan of Treatment Upcoming Encounters Date Type Department Care Team (Late st Contact Info) Description 05/23/2025 9:00 AM EDT Office Visit [facility] [address] [place] [address] Violeta Boo MD [address] [place] [address] 06/07/2025 9:30 AM EDT Office Visit [facility] OPTOMETRY [address] [place] [address] Caden, Angella, OD [address] [place] [address] documented as of this encounter Visit Diagnoses Not on filedocumented in this encounter Care Teams Contract Specialist Relationship Specialty Start Date End Date Violeta Boo MD [address] [place] [address] PCP - General Family Medicine 05/21/22 documented as of this encounter
--- OUTSIDE RECORDS SUMMARY | 2025-03-28 09:51 | XMS_ITS | Encounter Summary ---
Author Organization [employer] Address 75 [facility] 7t [place] [address] Care Team Providers Care Paid Search Marketing Analyst Name Role Phone Violeta Boo MD Primary Care Provide r Encounter Details Date Type Department Care Team (Late st Contact Info) Description 01/23/2025 Telephone [facility] OPTOMETRY [address] [place] [address] Angella Negrete, OD [address] [place] [address] Social History Tobacco Use Types Packs/Day Years [...] [facility] MEDICINE [address] [place] [address] Violeta Boo MD [address] [place] [address] 06/07/2025 9:30 AM EDT Office Visit [facility] OPTOMETRY [address] [place] [address] Caden, Angella, OD 230 [place] [address] documented as of this encounter Visit Diagnoses Not on filedocumented in this encounter Additional Health Concerns Assessment Noted Time PHQ-9 Depression Total Score: 17 024 11:23 AM EDT documented as of this encounter Care Teams Paid Search Marketing Analyst Relationship Specialty Start Date End Date Violeta Boo MD [address] [place] [address] PCP - General Family Medicine 05/21/22 documented as of this encounter
== END 2025-03-28 08:50 | disposition home or self-care (01) ==
LOC: HO.XRAY 08:49
PROVIDERS: PCP Internal Medicine; Visit Provider Anesthesiology
DX: M84.48XA Pathological fracture, other site, initial encounter for fracture (principal); S32.009A Unspecified fracture of unspecified lumbar vertebra, initial encounter for closed fracture
CPT/HCPCS: 72110; 72190; 99212

== ENCOUNTER 2025-03-28 08:49 | Outpatient (AMB) | payer OTHER, SELFPAY ==
--- NOTE | 2025-03-28 08:56 | MHC.OFFVIS ---
Vital Signs 03/28/25 09:00 Height 5 ft 3 in Weight 268 lb BMI 47.5 BP 183/80 H Blood Pressure Location Rt radial Position Sitting Pulse 103 H Pulse Source Pulse Oximeter Pulse Oximetry (%) 97 Oxygen Delivery Method Room Air Intake Visit Reasons: Increasing Back Pain (Mostly L Sided) Intake Note: Pain today 08/23 Glazing Machine Operator Required: Yes Glazing Machine Operator Language: Support Manager Name: Liane Accompanied by: Self / Same As Patient Allergies peanut [PEANUT] Allergy (Severe, Verified 03/28/25 09:04) ITCHY, SWELLING seafood Allergy (Severe, Verified 03/28/25 09:04) Rash tomato [TOMATO] Allergy (Severe, Verified 03/28/25 09:04) ITCHY, SWELLING aspirin [ASA] Allergy (Intermediate, Verified 03/28/25 09:04) ITCHY,ANXIOUS, itching, rash Iodinated Contrast Media [IV CONTRAST] Allergy (Intermediate, Verified 03/28/25 09:04) HIVES plantain [PLANTAIN] Allergy (Intermediate, Verified 03/28/25 09:04) ITCHY/SWELLING HPI Comments Details: Deidra is very pleasant 74 years old female who is back in my office with complains on severe pain in the projection of the right sacroiliac joint. She was under my care in January, she received 4 severe axial back pain aggravated by sitting and bending forward intercept procedure. She was doing very well after the procedure reported excellent mobility very good activities of daily living and absence of pain. However 3 days after I removed the stitches, she fell and started to feel this pain. The pain is very severe, aggravated by walking, and she reports clicking sensation in her pelvis. The sacral insufficiency, exacerbation of sacroiliac joint problem, versus lower lumbar spine fractures could not be excluded. I will send her for the x-ray of the lumbar spine and x-ray of the pelvis. [facility] Medical History (Updated 03/28/25 @ 09:09 by Jigar Trevino MD) Myocardial infarct Pain in left shoulder Screening for viral disease COPD (chronic obstructive pulmonary disease) Restrictive lung disease Allergic rhinitis ZOEY (obstructive sleep apnea) Edema PVD (peripheral vascular disease) On beta prashant at home Osteopenia Gout Osteoarthritis Rheumatoid arthritis Anemia Panic attacks Anxiety Schizophrenia Pre-diabetes CKD (chronic kidney disease), stage III GERD (gastroesophageal reflux disease) Fatty liver Myocardial infarction CAD (coronary artery disease) Angina pectoris HTN (hypertension) Morbid obesity ZOEY treated with BiPAP COPD (chronic obstructive pulmonary disease) Allergic rhinitis Surgical History History of colonoscopy (~2021) History of lumpectomy of right breast (06/21/22) History of bladder suspension procedure History of esophagogastroduodenoscopy (EGD) Hx of colonoscopy History of hysterectomy History of tubal ligation History of lumpectomy of right breast Family History Mother Leukemia Brother Colon cancer Brother Leukemia Sister Breast cancer Sister Vaginal cancer Sister Breast cancer Sister Breast cancer Daughter Thyroid disease Social History Alcohol intake: never Patient Tobacco Use Status: Never used Tobacco Second Hand Smoke Exposure: No Female Reproductive History Menstrual Age of Menarche: 13 Review of Systems Const All systems reviewed & are unremarkable except as noted in HPI and below Physical Exam Vital Signs: Last Vital Signs Pulse 103 H 03/28/25 09:00 BP 183/80 H 03/28/25 09:00 Pulse Ox 97 03/28/25 09:00 Oxygen Delivery Method Room Air 03/28/25 09:00 BMI result Body Mass Index 47.5 Const General: cooperative, healthy appearing, no acute distress and alert Orientation/consciousness: patient oriented x3 Limitations: no limitations HEENT Head: Yes normal to inspection, Yes normocephalic and Yes atraumatic Ears: hearing grossly normal bilaterally Eyes General: appearance normal, both eyes and all related structures Neck Neck: Yes normal visual inspection, Yes supple and Yes no JVD Resp Effort & Inspection: normal respiratory effort, able to speak in complete sentences and no audible wheezes Cardio Jugular venous distension: no JVD Peripheral pulses: Peripheral pulses 2+ throughout (no appreciable rhythmic abnormalities) Back/Spine/Pelvis Other: Norberto test and Pelvic compression test + bilaterally. Facet loading test + bilaterally. Unable to perform Stinchfield test due to pain. Significant TTP throughout lumbar spine and SIJ bilaterally. Thoracic/Lumbar Spine: thoracic and lumbar spine normal to inspection, No Thoracic/lumbar spine scar(s), pain with thoraco-lumbar ROM, paraspinal muscle tenderness, thoraco-lumbar ROM limited, thoracic spinal tenderness and lumbar spinal tenderness Sacroiliac joints: bilaterally tender to palpation Neuro General: patient oriented x3, No gait normal and moves all extremities Assessment & Plan Assessment & Plan (1) Sacral insufficiency fracture: Code(s): M84.48XA - Pathological fracture, other site, initial encounter for fracture Category: Medical (2) Fracture of lumbar spine: Code(s): S32.009A - Unspecified fracture of unspecified lumbar vertebra, initial encounter for closed fracture Category: Medical Plan I will see this patient in 1 week with the results of the x-rays. If necessary and I sent her for the MRI for further evaluation. If it is sacroiliac joint problem I can offer her diagnostic and maybe even therapeutic sacroiliac joint injection. Orders: Orders XR pelvis min 3V Today M84.48XA - Pathological fracture, other site, initial encounter for fracture XR lumbar spine 4V min Today M84.48XA - Pathological fracture, other site, initial encounter for fracture, S32.009A - Unspecified fracture of unspecified lumbar vertebra, initial encounter for closed fracture Coding Level of Care Code Est Pt Level 3 (30894) Diagnoses Sacral insufficiency fracture M84.48XA Fracture of lumbar spine S32.009A
[2025-03-28 09:00] VITALS: BP 183/80; PULSE 103; O2SAT 97; BMI 47.5
--- OUTSIDE RECORDS SUMMARY | 2025-03-28 09:16 | XMS_ITS | Encounter Summary ---
Author Organization [facility] [place], Address [address] [place] [address] Phone Care Team Providers Care Online User Experience Strategist Name Role Phone Violeta Boo MD Primary Care Provide r Encounter Details Date Type Department Care Team (Late Contact Info) Description 03/15/2022 Documentation Only [facility] [address] [place] [address] Shailesh Vallejo MD [address] [place] [address] [place] [address] Social History Tobacco Use Types [...] Department Care Team (Late Contact Info) Description 04/01/2026 1:45 PM EDT Office Visit [facility] [address] [place] [address] Shailesh Vallejo MD [address] [place] [address] [place] [address] documented as of this encounter Visit Diagnoses Not on filedocumented in this encounter Care Teams Online User Experience Strategist Relationship Specialty Start Date End Date Violeta Boo MD [address] [place] [phone] PCP - General Internal Medicine 03/21/23 documented as of this encounter
--- OUTSIDE RECORDS SUMMARY | 2025-03-28 09:16 | XMS_ITS | Encounter Summary ---
Author Organization [employer] Address [address] [place] [address] [address] [place] [address] Care Team Providers Care Mfts Name Role Phone Violeta Boo MD Primary Care Provide r Reason for Visit * Reason Comments Med Refill Encounter Details Date Type Department Care Team (Late Contact Info) Description 02/13/2023 Refill [facility] MEDICINE [address] [place] [phone] Cassy Starks MD [address] [place] [phone] Social History Tobacco Use Types Packs/Day Years [...] Department Care Team (Late Contact Info) Description 05/23/2025 9:00 AM EDT Office Visit [facility] MEDICINE 230 [place], [place] [phone] Violeta Boo MD 230 [place], [place] [phone] 06/07/2025 9:30 AM EDT Office Visit [facility] [address] [place] [address] Angella Negrete, OD 230 [place] [address] documented as of this encounter Visit Diagnoses Not on filedocumented in this encounter Care Teams Mfts Relationship Specialty Start Date End Date Violeta Boo MD 230 [place], [place] [phone] PCP - General Family Medicine 05/21/22 documented as of this encounter
--- OUTSIDE RECORDS SUMMARY | 2025-03-28 09:17 | XMS_ITS | Encounter Summary ---
Author Organization [facility] [place], Address [address] [place] [address] Phone Care Team Providers Care Cycle Manager Name Role Phone Violeta Boo MD Primary Care Provide r Encounter Details Date Type Department Care Team (Late Contact Info) Description 03/20/2025 Documentation Only [facility] [address] [place] [address] Rowena Knowles [address] [place] [phone] Social History Tobacco Use Types Packs/Day Years [...] Visit [facility] [address] [place] [address] Shailesh Vallejo MD [address] [place] [address] [place] [address] documented as of this encounter Visit Diagnoses Not on filedocumented in this encounter Care Teams Cycle Manager Relationship Specialty Start Date End Date Violeta Boo MD [address] [place] [phone] PCP - General Internal Medicine 03/21/23 documented as of this encounter
--- OUTSIDE RECORDS SUMMARY | 2025-03-28 09:17 | XMS_ITS | Encounter Summary ---
Author Organization [employer] Address [address] [facility] [address] [place] [address] Care Team Providers Care Adjunct Professor Name Role Phone Violeta Boo MD Primary Care Provide r Encounter Details Date Type Department Care Team (Late Contact Info) Description 04/26/[address] [facility]EDS [address] [place] [address] Brittany Epps LPN Social History Tobacco Use [...] Description 05/23/2025 9:00 AM EDT Office [address] [facility] MEDICINE 230 [place], [place] [phone] Violeta Boo MD 230 [place], [place] [phone] 06/07/2025 9:30 AM EDT Office Visit [facility] OPTOMETRY [address] [place] [address] Angella Negrete, OD [address] [place] [address] documented as of this encounter Procedures Procedure Name Priority Date/Time Associated Diagnosis Comments XR LUMBAR SPINE 2-3 VIEWS Routine 05/05/2023 12:38 PM EDT documented in this encounter Results * XR Lumbar Spine 2-3 Views (05/05/2023 12:38 PM EDT) Anatomical Region Laterality Modality Spine, L-spine Radiographic Rena ging 05/05/2023 12:3 8 PM EDT Narrative 05/17/2023 7:08 PM EDT ? [facility] ?[address] ?[place] [address] ?XRay Report ? Signed ? Patient: Violeta Alvarenga V ?MR#: [id number] ?? [id number] ? : 1950 ?Acct:[id number] ? Age/Sex: 72 / F ?ADM Date: 05/05/23 ? Loc: HO.XRAY ? Attending Dr: Violeta Pascual MD ? Ordering Physician: Violeta Boo MD ?? Date of Service: 05/05/23 ?? Procedure(s): XR lumbar spine 2-3V ?? Accession Number(s): [id number] ? cc: Violeta Boo MD ? EXAMINATION: [...] 1905 ? DD/ 1238 ? TD/TT: ? Business Support Assistant: SANA ? Procedure Note Jaqueline, Image - 05/17/[address] [address] XRay Report Signed Patient: Violeta Alvarenga VMR#: [id number] : 2Acct:[id number] Age/Sex: 72 / FADM Date: 05/05/23 Loc: HO.XRAY Attending Dr: Violeta Pascual MD Ordering Physician: Violeta Boo MD Date of Service: 05/05/23 Procedure(s): XR lumbar spine 2-3V Accession Number(s): [id number] cc: Violeta Boo MD EXAMINATION: XR LUMBOSACRAL [...] in OV> 05/17/23 1905 DD/ 1238 TD/TT: Business Support Assistant: SANA [facility] External Provider IMG XR PROCEDURES Edited Result - Final documented in this encounter Visit Diagnoses Not on filedocumented in this encounter Care Teams Adjunct Professor Relationship Specialty Start Date End Date Violeta Boo MD [address] [place] [phone] PCP - General Family Medicine 05/21/22 documented as of this encounter
--- OUTSIDE RECORDS SUMMARY | 2025-03-28 09:17 | XMS_ITS | Encounter Summary ---
Author Organization [facility] [place], Address [address] [place] [address] Phone Care Team Providers Care Drawing Machine Operator Name Role Phone Violeta Boo MD Primary Care Provide r Encounter Details Date Type Department Care Team (Late Contact Info) Description 02/13/2024 Documentation Only [facility] [address] [place] [address] Rowena Knowles [address] [place] [phone] Social History Tobacco Use Types Packs/Day Years [...] Visit [facility] [address] [place] [address] Shailesh Vallejo MD [address] [place] [address] [place] [address] documented as of this encounter Visit Diagnoses Not on filedocumented in this encounter Care Teams Drawing Machine Operator Relationship Specialty Start Date End Date Violeta Boo MD [address] [place] [phone] PCP - General Internal Medicine 03/21/23 documented as of this encounter
--- OUTSIDE RECORDS SUMMARY | 2025-03-28 09:17 | XMS_ITS | Encounter Summary ---
Author Organization [employer] Address [address] [facility] [address] [place] [address] Care Team Providers Care Curriculum Assistant Principal Name Role Phone Violeta Boo MD Primary Care Provide r Encounter Details Date Type Department Care Team (Late st Contact Info) Description 11/25/2022 Telephone [facility] MEDICINE [address] [place] [address] Violeta Boo MD 230 [place], [place] [phone] Social History Tobacco Use Types Packs/Day Years [...] Care Team (Late st Contact Info) Description 05/23/2025 9:00 AM EDT Office Visit [facility] MEDICINE [address] [place] [address] Violeta Boo MD 230 [place] [address] 06/07/2025 9:30 AM EDT Office Visit [facility] OPTOMETRY [address] [place], [place] [phone] Angella Negrete OD 230 [place] [address] documented as of this encounter Visit Diagnoses Not on filedocumented in this encounter Care Teams Curriculum Assistant Principal Relationship Specialty Start Date End Date Violeta Boo MD 230 [place], [place] [phone] PCP - General Family Medicine 05/21/22 documented as of this encounter
--- OUTSIDE RECORDS SUMMARY | 2025-03-28 09:17 | XMS_ITS | Encounter Summary ---
Author Organization [employer] Address [address] [facility] [address] [place] [address] Care Team Providers Care Bmx Rider Name Role Phone Violeta Boo MD Primary Care Provide r Reason for Visit * Reason Onset Date Comments Chart Prep 03/25/2025 Encounter Details Date Type Department Care Team ([facility] st Contact Info) Description 03/25/2025 Telephone [facility] MEDICINE [address] [place] [address] Violeta Boo MD [address] [place] [address] Chart Prep Social History Tobacco Use Types Packs/Day Years [...] encounter Miscellaneous Notes * Telephone Encounter - Marilu Bell MA - 03/25/2025 11:20 AM EDT Chart Prep Labs: done Images: done Referrals: appointment pending Vaccines due: Tdap and RSV Screenings: not applicable Overdue care gaps: SBIRT, SDOH, KELSEA-7, and Oral health screening documented in this encounter Plan of Treatment Upcoming Encounters Date Type Department Care Team (Late st Contact Info) Description 05/23/2025 9:00 AM EDT Office Visit [facility] MEDICINE [address] [place] [address] Violeta Boo MD [address] [place] [address] 06/07/2025 9:30 AM EDT Office Visit [facility] OPTOMETRY [address] [place] [address] Angella Negrete, OD [address] [place] [address] documented as of this encounter Visit Diagnoses Not on filedocumented in this encounter Additional Health Concerns Assessment Noted Time PHQ-9 Depression Total Score: 17 024 11:23 AM EDT documented as of this encounter Care Teams Bmx Rider Relationship Specialty Start Date End Date Violeta Boo MD [address] [place] [address] PCP - General Family Medicine 05/21/22 documented as of this encounter
--- OUTSIDE RECORDS SUMMARY | 2025-03-28 09:17 | XMS_ITS | Encounter Summary ---
Author Organization [facility], Address [address] [place] [address] Phone Care Team Providers Care Panel Coverer Name Role Phone Violeta Boo MD Primary Care Provide r Encounter Details Date Type Department Care Team (Late Contact Info) Description 03/22/2023 Documentation Only [facility] [address] [place] [phone] Jazmin Powell PA Social History Tobacco Use [...] [facility] [address] [place] [phone] Shailesh Vallejo MD [address] [place] [address] [place] [phone] documented as of this encounter Visit Diagnoses Not on filedocumented in this encounter Care Teams Panel Coverer Relationship Specialty Start Date End Date Violeta Boo MD [address] [place] [phone] PCP - General Internal Medicine 03/21/23 documented as of this encounter
--- OUTSIDE RECORDS SUMMARY | 2025-03-28 09:17 | XMS_ITS | Clinical Summary ---
Author Organization [facility] Address [address] [place] [address] Phone Care Team Providers Care Ultrasound Tech Name Role Phone Violeta oBo MD Primary Care Provide r Allergies Active [...] osteoarthritis of both knees 10/08/2024 Psychotic disorder ([facility] V24, [facility] V28) Tubular adenoma of colon 10/08/2024 Dyslipidemia [...] appointment Onychomycosis 03/08/2023 Type 2 diabetes mellitus ([facility] V24, [facility] V 28) 01/31/2023 Otitis externa 12/16/2022 Overview [...] Chronic gouty arthritis 09/08/2018 Episodic mood disorder ([facility] V24) 08/08/2018 Generalized osteoarthritis 08/08/2018 Morbid obesity ([facility] V24, [facility] V28) 2017 Overview (10/08/2024): Last Assessment & Plan: Discussed re weight reduction options including exercise, life style modifications, diet, referral to grants specialist. Discussed re lower calorie intake, increase dietary fiber Pt agreed to be referred to dietitian. Non-cardiac chest pain 08/08/2018 Seasonal allergies 08/08/2018 Unintended awareness under g eneral anesthesia during procedure 08/08/2018 Encounters Date Type Department Care Team Description 01/16/2025 1:00 PM EST Office Visit [facility] [place] [address] [facility] [address] [place] [phone] Maury Godoy, DPM Dermatophytosis of nail (Primary Dx); Tinea pedis of both feet; Pain in toe of right foot; Pain in toe of left foot; Corns and callosities; Diabetic mononeuropathy simplex ([facility] V24, [facility] V28); Type II diabetes mellitus with peripheral circulatory disorder ([facility] V24, [facility] V28); Acquired hallux valgus of left foot; [...] AM EDT Office Visit [facility] [place] [address] [phone] Maury Godoy, DPM [address] [address] Health Maintenance Due Date Last Done Comments [...] Results * Annual BMP Blood Test (03/01/2024) [facility] Annual BMP Blood Test Abstracted Historical Provider HEALTH MAINTENANCE Final Result * Hemoglobin A1c (08/09/2022) [facility] Hemoglobin A1C 0.0 % Comment:No Interpretation, A bstracted Blood Venous blood specimen / Unknown Historical Provider LAB BLOOD ORDERABLES Almaz l Result * Lipid panel (03/15/2022) [facility] LDL/HDL Ratio 0 Comment:No Interpretation, A bstracted [...] HEALTHCARE MEDICARE [place]ICAID - [place] Care Teams Ultrasound Tech Relationship Specialty Start Date End Date Violeta Boo MD [address] [phone] PCP - General 03/29/23
--- OUTSIDE RECORDS SUMMARY | 2025-03-28 09:17 | XMS_ITS | Encounter Summary ---
Author Organization [employer] Address [address] [facility] [address] [place] [address] Care Team Providers Care Ed Manager Name Role Phone Violeta Boo MD Primary Care Provide r Reason for Visit * Reason Onset Date Comments Med Refill 10/25/2024 Encounter Details Date Type Department Care Team ([facility] st Contact Info) Description 10/25/2024 Telephone [facility] MEDICINE [address] [place] [address] Violeta Boo MD [address] [place] [address] Med Refill Social History Tobacco Use Types [...] Description 05/23/2025 9:00 AM EDT Office Visit [facility] MEDICINE [address] [place], [place] [phone] Violeta Boo MD [address] [place] [address] 06/07/2025 9:30 AM EDT Office Visit [facility] OPTOMETRY [address] [place], [place] [phone] Angella Negrete, OD 230 [place] [address] documented as of this encounter Visit Diagnoses Not on filedocumented in this encounter Additional Health Concerns Assessment Noted Time PHQ-9 Depression Total Score: 17 024 11:23 AM EDT documented as of this encounter Care Teams Ed Manager Relationship Specialty Start Date End Date Violeta Boo MD [address] [place] [address] PCP - General Family Medicine 05/21/22 documented as of this encounter
--- OUTSIDE RECORDS SUMMARY | 2025-03-28 09:17 | XMS_ITS ---
Author Name Radha Ayala NP Address [address] [place] [address] Phone [phone] [facility] Care Team Providers Care Compressed Yeast Supervisor Name Role Phone Radha Ayala Unavailable [phone] Unavailable Unavailable Unavailable Unavailable Unavailable Unavailable Cristo Garcia Unavailable [phone] Unavailable Unavailable [phone] Gideon Frost Unavailable [phone] Unavailable Unavailable Unavailable Unavailable Unavailable Unavailable Unavailable Unavailable [phone] WALTER ROBERT Unavailable [phone] Nirav Anthony Unavailable [phone] Unavailable Unavailable [phone] Unavailable Unavailable [phone] Reason for Referral Not Available Allergies, adverse [...] AREA(S) EVERY MORNING 2022-12-16 No Data Available Afgzefwo-Qlolhskta-VK [id number] 3 TO 4 DROPS INTO [...] mg Cap TAKE 1 CAPSULE BY MO [facility] AT BEDTIME 2023-05-20 No Data Available Hydrocortisone [...] 2023-04-07 N/A 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;Peripheral vascular [...] Ac tive 2023-04-07 N/A 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, bilateral legs Active 2023-04-13 N/A Hemorrhoids Active 2023-08-10 N/A Onychomycosis Inactive 2023-08-21 N/A Chronic back painLumbar spin al stenosis Somatoform pain disorder Active 2023-10-21 N/A Sensory neuropathy Active 2025-02-18 N/A Other problems related to ny dical facilities and other health care Active 2024-05-12 N/A Mixed stress and urge urinary incontinence Active 2025-02-18 N/A History of fallImpaired gait and mobility Active 2025-02-20 N/A Encounters Encounters Type Facility Date of Service Diagnosis/Co mplaint New patient,40-59min; chronic exacerbation, 2 stable chronic or 1 acute illness add add modifier 95 for video (do not use for phone, instead use 61797-65) [facility], ([place]07/2023 Noninfective gastroenteritis and colitis, unspecifiedRepeated [...] sitesSacroiliitis, not elsewhere classifiedAthscl heart disease of gambell cor art w unsp ang pctrsPeripheral vascular disease, unspecified New patient,40-59min; chronic exacerbation, 2 stable chronic or 1 acute illness add add modifier 95 for video (do not use for phone, instead use 97068-14) [facility]20[place] New patient,40-59min; chronic exacerbation, 2 stable chronic or 1 acute illness add add modifier 95 for video (do not use for phone, instead use 83045-00) [facility]07[place]20[place] New patient,40-59min; chronic exacerbation, 2 stable chronic or 1 acute illness add add modifier 95 for video (do not use for phone, instead use 54341-07) [facility]20[place] New patient,40-59min; chronic exacerbation, 2 stable chronic or 1 acute illness add add modifier 95 for video (do not use for phone, instead use 22210-29) [facility]20[place] New patient,40-59min; chronic exacerbation, 2 stable chronic or 1 acute illness add add modifier 95 for video (do not use for phone, instead use 21736-69) [facility]07[place]20[place] New patient,40-59min; chronic exacerbation, 2 stable chronic or 1 acute illness add add modifier 95 for video (do not use for phone, instead use 56318-06) [facility] ([place] 04/07/20[place] New patient,40-59min; chronic exacerbation, 2 stable chronic or 1 acute illness add add modifier 95 for video (do not use for phone, instead use 07401-12) [facility], ([place]) 04/07/2023 New patient,40-59min; chronic exacerbation, 2 stable chronic or 1 acute illness add add modifier 95 for video (do not use for phone, instead use 18204-85) [facility] ([place] 04/07/2023 Unlisted special service; to be used for medical record reviews and reporting CPTII codes (1111F, etc) [facility] 07/01/2023 Other specified counseling Unlisted special service; to be used for medical record reviews and reporting CPTII codes (1111F, etc) [facility] 07/01/2023 Unlisted special service; to be used for medical record reviews and reporting CPTII codes (1111F, etc) [facility] 07/01/2023 No Data Available [facility] 08/10/2023 Body mass index (BMI) 45.0-4 9.9, adultPrediabetesMorbid (severe) obesity due to excess caloriesTinea unguiumLumbago with sciatica, left sideLumbago with sciatica, right sideOther chronic painOther intervertebral disc degeneration, lumbar region No Data Available [facility] 08/10/2023 No Data Available [facility] 08/10/2023 No Data Available [facility] 10/21/2023 Dorsalgia, unspecifiedOther chronic painMorbid (severe) obesity due to excess caloriesOther specified personal risk factors, not elsewhere classified No Data Available [facility] 10/21/2023 Estab. patient 30-39min; chronic exacerbation, 2 stable chronic or 1 acute illness add add modifier 95 for video, (do not use for phone, instead use 23906-93) [facility] 05/11/2024 Type 2 diabetes mellitus wit h diabetic chronic kidney diseaseChronic kidney disease, stage 3bRepeated fallsUnspecified hearing loss, left earTinnitus, left earUnspecified hemorrhoidsOther specified postprocedural statesLumbago with sciatica, left sideLumbago with sciatica, right sideOther chronic painOther intervertebral disc degeneration, lumbar regionIdiopathic chronic gout, unspecified site, without tophus (tophi)Polyosteoarthritis, unspecifiedSchizophrenia, unspecifiedAthscl heart disease of gambell cor art w unsp ang pctrsType 2 diabetes w diabetic peripheral angiopath w/o gangreneUnsp athscl gambell arteries of extremities, bilateral legsChronic obstructive pulmonary [...] (do not use for phone, instead use 39059-75) [facility]11/20[place] Estab. patient 30-39min; chronic exacerbation, 2 stable chronic or 1 acute illness add add modifier 95 for video, (do not use for phone, instead use 85653-86) [facility] 05/11/20[place] Estab. patient 30-39min; chronic exacerbation, 2 stable chronic or 1 acute illness add add modifier 95 for video, (do not use for phone, instead use 73107-27) [facility] 05/11/20[place] Estab. patient 30-39min; chronic exacerbation, 2 stable chronic or 1 acute illness add add modifier 95 for video, (do not use for phone, instead use 71876-14) [facility] 05/11/20[place] Estab. patient 30-39min; chronic exacerbation, 2 stable chronic or 1 acute illness add add modifier 95 for video, (do not use for phone, instead use 31403-96) [facility] 05/11/20[place] Estab. patient 30-39min; chronic exacerbation, 2 stable chronic or 1 acute illness add add modifier 95 for video, (do not use for phone, instead use 75844-00) [facility] 05/11/2024 No Data Available [facility] 05/14/2024 Type 2 diabetes mellitus wit h diabetic chronic kidney diseaseChronic kidney disease, stage 3b No Data Available [facility] 05/14/2024 No Data Available [facility] 06/20/2024 Type 2 diabetes mellitus wit h diabetic chronic kidney diseaseChronic kidney disease, stage 3b No Data Available [facility] 06/20/2024 Unlisted special service; to be used for medical record reviews and reporting CPTII codes (1111F, etc) [facility] ([place] 09/04/2024 Other specified counseling Unlisted special service; to be used for medical record reviews and reporting CPTII codes (1111F, etc) [facility] ([place] 09/04/2024 Unlisted special service; to be used for medical record reviews and reporting CPTII codes (1111F, etc) [facility]/04/20[place] Estab. patient 10-29min; 1 minor problem; add add modifier 95 for video, modifier 93 for phone [facility] 12/18/2024 Type 2 diabetes mellitus wit h diabetic chronic kidney diseaseChronic kidney disease, stage 3bMorbid (severe) obesity due to excess caloriesBody mass index (bmi) 50-59.9 , adult Estab. patient 10-29min; 1 minor problem; add add modifier 95 for video, modifier 93 for phone [facility] 12/18/2024 Estab. patient 10-29min; 1 minor problem; add add modifier 95 for video, modifier 93 for phone [facility] 12/18/2024 Estab. patient 20-29min; 1 stable chronic or 2 minor; add add modifier 95 for video, modifier 93 for phone [facility] 02/18/2025 Noninfective gastroenteritis and colitis, unspecifiedRepeated [...] to conditions classified elsewhereAthscl heart disease of gambell cor art w unsp ang pctrsPeripheral vascular disease, unspecifiedUnsp athscl gambell arteries of extremities, bilateral legsChronic obstructive pulmonary [...] modifier 95 for video, modifier 93 for [facility], [place] 02/18/2025 Estab. patient 20-29min; 1 stable chronic or 2 minor; add add modifier 95 for video, modifier 93 for [facility], [place] 02/18/2025 Estab. patient 20-29min; 1 stable chronic or 2 minor; add add modifier 95 for video, modifier 93 for [facility] 02/18/2025 Estab. patient 20-29min; 1 stable chronic or 2 minor; add add modifier 95 for video, modifier 93 for [facility] 02/18/2025 Estab. patient 20-29min; 1 stable chronic or 2 minor; add add modifier 95 for video, modifier 93 for [facility] 02/18/2025 Estab. patient 20-29min; 1 stable chronic or 2 minor; add add modifier 95 for video, modifier 93 for phone [facility] 02/18/2025 Estab. patient 20-29min; 1 stable chronic or 2 minor; add add modifier 95 for video, modifier 93 for phone [facility] 02/18/2025 Vital Signs Date of Collection Vitals [...] tive Time Current Smoking Status Never smoker 2025-03-14 5 Sex Female Gender identity Woman History of Procedures Procedures Service Procedure code Service date Servicing provider Phone# New patient,40-59min; chronic exacerbation, 2 stable chronic or 1 acute illness add add modifier 95 for video (do not use for phone, instead use 17577-59) [address] 2023-04-07 No Data Available No Data Availa [...] reviews and reporting CPTII codes (1111F, etc) 91639 2023-07-01 No Data Available No Data Availa ble SBP < 130 (3074F) 3074F 2023-07-01 No Data Available No Data Available DBP <80 (3078F) 3078F 2023-07-01 No Data Available No Data Available No Data Available 59816 2023-08-10 No Data Available No Data Available Medication List Documented (1159F) 1159F 2023-08-10 No Data Available No Data Lena ilable BMI obtained (3008F) 3008F 2023-08-10 No Data Availab le No Data Available No Data Available 57541 2023-10-21 No Data Available No Data Available Medication List Documented (1159F) 1159F 2023-10-21 No Data Available No Data Lena ilable Estab. patient 30-39min; chronic exacerbation, 2 stable chronic or 1 acute illness add add modifier 95 for video, (do not use for phone, instead use 56539-07) 30229 2024-05-11 No Data Available No Data Availa [...] Available No Data Available No Data Available 28861 2024-05-14 No Data Available No Data Available Medication List Documented (1159F) 1159F 2024-05-14 No Data Available No Data Lena ilable No Data Available 60160 2024-06-20 No Data Available No Data Available Medication List Documented (1159F) 1159F 2024-06-20 No Data Available No Data Lena ilable Unlisted special service; to be used for medical record reviews and reporting CPTII codes (1111F, etc) 42102 2024-09-04 No Data Available No Data Availa ble SBP >= 140 3077F 2024-09-04 No Data Available No Data Available DBP >=90 3080F 2024-09-04 No Data Available No Data Available Estab. patient 10-29min; 1 minor problem; add add modifier 95 for video, modifier 93 for phone 15276 2024-12-18 No Data Available No Data Availa ble Medication List Documented (1159F) 1159F 2024-12-18 No Data Available No Data Lena ilable BMI obtained (3008F) 3008F 2024-12-18 No Data Availab le No Data Available Estab. patient 20-29min; 1 stable chronic or 2 minor; add add modifier 95 for video, modifier 93 for phone 89347 2025-02-18 No Data Available No Data Availa [...] rheumatoid factor, multiple sitesAtherosclerotic heart disease of gambell coronary artery with unspecified angina pectoris;Peripheral vascular [...] discChronic gouty arthritis;Generalized osteoarthritisSchizophreniaAtherosclerotic heart disease of gambell coronary artery with unspecified angina pectoris;Peripheral vascular disease, unspecified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, bilateral legsChronic obstructive pulmonary [...] to conditions classified elsewhereAtherosclerotic heart disease of gambell coronary artery with unspecified angina pectoris;Peripheral vascular disease, unspecified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, bilateral legsChronic obstructive pulmonary [...] area that had available staff.Pt to call [facility] and get name of PT providers in her area that are covered.Will investigate weight loss clinics.Pt to look for back exercises on YouTube, activity as tolerated.Will FU.BMI 49.25send to weight clinic but not [place]referral for weight clinic - also endocr for [facility] [place]10/21/2023Have not been able to find clinic that is covered by [facility] in er area. Pt to call 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 in er area. Pt to call [facility] and find list of names of [...] area that had available staff.Pt to call [facility] and get name of PT providers [...] modifier 95)Continue to see PCP. Follow-up with [facility] as needed for any acute or [...] our conversation of three days ago. Her STUDY ABROAD ADVISOR is supposed to go tonight or tomorrow [...] modifier 95)Continue to see PCP. Follow-up with [facility] as needed for any acute or [...] our conversation of three days ago. Her STUDY ABROAD ADVISOR is supposed to go tonight or tomorrow [...] mg dose. She will be traveling to [place] so she is to ask for emergency traveling supply, which won't be much as she will be back july.Refilled w instructions to pharmacy.Will FU after . 2024-12-18 08:09:04 Estab. patient 10-29 min; 1 minor problem; add add modifier 95 for video, modifier 93 for phoneContinue to see PCP. Follow-up with [facility] as needed for any acute or [...] our conversation of three days ago. Her STUDY ABROAD ADVISOR is supposed to go tonight or tomorrow [...] mg dose. She will be traveling to [place] so she is to ask for emergency [...] for weight clinic - also endocr for [facility]10/21/2023Have not been able to find clinic that is covered by [facility] in er area. Pt to call 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
--- OUTSIDE RECORDS SUMMARY | 2025-03-28 09:17 | XMS_ITS | Encounter Summary ---
Author Organization [employer] Address [address] [place] [address] [address] [place] [address] Care Team Providers Care Puddler Helper Name Role Phone Violeta Boo MD Primary Care Provide r Reason for Visit * Reason Onset Date Comments Appointment Request 02/17/2023 Encounter Details Date Type Department Care Team ([facility] Contact Info) Description 02/17/2023 Telephone [facility] MEDICINE [address] [place] [address] Violeta Boo MD [address] [place] [address] Appointment Request Social History Tobacco Use Types [...] message previously sent. Please contact pt at [phone] [place]e Speaker * Telephone Encounter - Shay Navarro - 02/17/2023 1:16 PM EDT Tc from pt requesting to r/s appt for Follow up on 02/17/2023. Please contact pt at [phone] [place]e Speaker documented in this encounter Plan of Treatment Upcoming Encounters Date Type Department Care Team (Late st Contact Info) Description 05/23/2025 9:00 AM EDT Office Visit [facility] MEDICINE [address] [place] [address] Violeta Boo MD [address] [place] [address] 06/07/2025 9:30 AM EDT Office Visit [facility] OPTOMETRY [address] [place] [address] Caden, Angella, OD [address] [place] [address] documented as of this encounter Visit Diagnoses Not on filedocumented in this encounter Care Teams Puddler Helper Relationship Specialty Start Date End Date Violeta Boo MD [address] [place] [address] PCP - General Family Medicine 05/21/22 documented as of this encounter
--- OUTSIDE RECORDS SUMMARY | 2025-03-28 09:17 | XMS_ITS | Encounter Summary ---
Author Organization [employer] Address [address] [facility] [address] [place] [address] Care Team Providers Care Floor Coverer Name Role Phone Violeta Boo MD Primary Care Provide r Reason for Visit * Reason Comments Med Refill Encounter Details Date Type Department Care Team ([facility] st Contact Info) Description 10/21/2024 Refill [facility] MEDICINE [address] [place] [address] Violeta Boo MD [address] [place] [address] Pain Social History Tobacco Use Types Packs/Day [...] 05/23/2025 9:00 AM EDT Office Visit [facility] MEDICINE [address] [place] [address] Violeta Boo MD [address] [place] [address] 06/07/2025 9:30 AM EDT Office Visit [facility] OPTOMETRY [address] [place] [address] Caden, Angella, OD [address] [place] [address] documented as of this encounter Visit Diagnoses Diagnosis Pain Generalized pain documented in this encounter Additional Health Concerns Assessment Noted Time PHQ-9 Depression Total Score: 17 024 11:23 AM EDT documented as of this encounter Care Teams Floor Coverer Relationship Specialty Start Date End Date Violeta Boo MD [address] [place] [id number] PCP - General Family Medicine 05/21/22 documented as of this encounter
--- OUTSIDE RECORDS SUMMARY | 2025-03-28 09:17 | XMS_ITS | Encounter Summary ---
Author Organization [facility], Address [address] [place] [address] Phone Care Team Providers Care Ends Down Checker Name Role Phone Violeta Boo MD Primary Care Provide r Encounter Details Date Type Department Care Team (Late Contact Info) Description 10/22/2022 Documentation Only [facility] [address] [place] [phone] Jazmin Powell PA Social History Tobacco Use [...] Visit [facility] [address] [place] [phone] Shailesh Vallejo MD [address] [place] [address] [place] [phone] documented as of this encounter Visit Diagnoses Not on filedocumented in this encounter Care Teams Ends Down Checker Relationship Specialty Start Date End Date Violeta Boo MD [address] [phone] PCP - General Internal Medicine 03/21/23 documented as of this encounter
--- OUTSIDE RECORDS SUMMARY | 2025-03-28 09:17 | XMS_ITS | Encounter Summary ---
Author Organization [facility], Address [address] [place] [address] Phone Care Team Providers Care Political Advisor Name Role Phone Violeta Boo MD Primary Care Provide r Encounter Details Date Type Department Care Team (Late Contact Info) Description 12/24/2022 Documentation Only [facility] [address] [place] [phone] Jazmin Powell PA Social History Tobacco Use [...] [facility] [address] [place] [phone] Shailesh Vallejo MD [address] [place] [address] [place] [phone] documented as of this encounter Visit Diagnoses Not on filedocumented in this encounter Care Teams Political Advisor Relationship Specialty Start Date End Date Violeta Boo MD [address] [phone] PCP - General Internal Medicine 03/21/23 documented as of this encounter
--- OUTSIDE RECORDS SUMMARY | 2025-03-28 09:17 | XMS_ITS | Encounter Summary ---
Author Organization [facility], Address [address] [place] [address] Phone Care Team Providers Care Physical Therapy Technician Name Role Phone Violeta Boo MD Primary Care Provide r Encounter Details Date Type Department Care Team (Late Contact Info) Description 05/05/2022 Documentation Only [facility] [address] [place] [address] Shailesh Vallejo MD [address] [place] [address] [place] [address] Social History Tobacco Use Types [...] [facility] [address] [place] [address] Shailesh Vallejo MD [address] [place] [address] [place] [address] documented as of this encounter Visit Diagnoses Not on filedocumented in this encounter Care Teams Physical Therapy Technician Relationship Specialty Start Date End Date Violeta Boo MD [address] [place] [phone] PCP - General Internal Medicine 03/21/23 documented as of this encounter
--- OUTSIDE RECORDS SUMMARY | 2025-03-28 09:17 | XMS_ITS | Encounter Summary ---
Author Organization [employer] Address [address] [facility] [address] [place] [address] Care Team Providers Care Package Sorter Name Role Phone Violeta Boo MD Primary Care Provide r Reason for Visit * Reason Onset Date Comments Referral 12/08/2022 Encounter Details Date Type Department Care Team ([facility] st Contact Info) Description 12/08/2022 Telephone [facility] MEDICINE [address] [place] [address] Violeta Boo MD [address] [place] [address] Referral Social History Tobacco Use Types Packs/Day [...] 12/08/2022 2:55 PM EST Rufino Pagan with [facility] requesting a new referral for colorectal Surgery at [address] [place] [address] [place] [address]. Ej stated that a provider from their got in contact With Dr. Berkowitz, and Dr. Berkowitz advised provider that it okay for pt to receive a referral. They are now requesting a new referral from PCP, in order for pt to be ssen. If any question please contact bill at [phone] documented in this encounter Plan of Treatment Upcoming Encounters Date Type Department Care Team (Late st Contact Info) Description 05/23/2025 9:00 AM EDT Office Visit [facility]INE [address] [place] [address] Violeta Boo MD [address] [place] [address] 06/07/2025 9:30 AM EDT Office Visit [facility] OPTOMETRY [address] [place] [address] Angella Negrete, OD [address] [place] [address] documented as of this encounter Visit Diagnoses Not on filedocumented in this encounter Care Teams Package Sorter Relationship Specialty Start Date End Date Violeta Boo MD [address] [place] [address] PCP - General Family Medicine 05/21/22 documented as of this encounter
--- OUTSIDE RECORDS SUMMARY | 2025-03-28 09:17 | XMS_ITS | Clinical Summary ---
Author Organization [employer] Address [address] [place] [address] 7[address] [place] [address] Care Team Providers Care Lay Out Maker Name Role Phone Violeta Boo MD [...] by mouth every 8 (eight) hours. 04/06/20 22 Active OLANZapine (ZyPREXA) 15 MG tablet Take [...] other day. 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 Otitis externa 12/16/2022 Assessment & Plan (12/16/2022 [...] exercise, life style modifications, diet, referral to optical instrument specialist. Discussed re lower calorie intake, increase dietary fiber Pt agreed to be referred to dietitian. 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 04/30/2024 Encounters Date Type Department Care Team Description 03/26/2025 Telephone [facility] [address] [place] [address] Violeta Boo MD No Show 03/25/2025 Telephone [facility] [address] [place] [address] Violeta Boo MD call back needed 03/25/2025 Telephone [facility] [address] [place] [address] Violeta Boo MD Chart Prep 03/19/2025 Orders Only [facility] External Provider, [facility] 02/21/2025 Telephone [facility] [address] [place] [address] Violeta Boo MD Durable Medical Equipment 02/01/2025 Orders Only GENERIC EXTERNAL DATA DEPARTMENT Provider, Generic External Data 01/30/2025 Telephone [facility] [address] [place] [address] Violeta Boo MD Appointment Request 01/29/[address] [address] Violeta Boo MD Appointment Request 01/29/[address] [address] Violeta Boo MD Housing Form (The patient called regarding a reasonable accommodation request, from [facility]. She stated that she is requesting a [...] been approved by the provider.) 01/29/[address] [address] Violeta Boo MD Housing Form (The patient left a message, stating that she was returning a call regarding a housing form. I returned her call, and reached her voicemail. I left a message, asking her to return my call at ext [phone]. A reasonable accommodation form was received on 12/19/24 from [facility], but it does not state what accommodation the patient is requesting.) 01/28/2025 Patient Outreach [address] [place] [address] Violeta Boo MD Pre-visit Planning ((Unable to reach for PVP screening, LVM)) 01/23/2025 Telephone [facility] [address] [place] [phone] Angella Negrete, OD 01/23/2025 Telephone [facility] [address] [place] [phone] Angella Negrete, OD 01/14/2025 Orders Only GENERIC EXTERNAL DATA DEPARTMENT Provider, Generic External Data 01/11/[address] [place] [address] Violeta Boo MD FYI ; Housing Form (I called the patient regarding a reasonable accommodation request, from [facility]. The form lists the patient's medical conditions, but it does not state what the accommodation is. I reached her voicemail, and left a message asking her to return my call at ext [phone].) 01/04/2025 Refill [facility] [address] [place] [address] Violeta Boo MD 01/01/2025 Telephone [facility] [address] [place] [address] Violeta Boo MD [facility] request from Last 3 Months Immunizations Immunization Administration Dates Next Due Influenza High-dose Quadriva [...] Description 05/23/2025 9:00 AM EDT Office Visit [facility] [address] [place] [address] Violeta Boo MD [address] [place] [address] 06/07/2025 9:30 AM EDT Office Visit [facility] [address] [place] [address] Caden, Angella, OD [address] [place] [address] Health Maintenance Due Date Last Done Comments CT Colonography 1952 FIT DNA/Cologuard 1950 FIT 1950 FOBT 1950 Sigmoidoscopy 1950 Alcohol/Substance Use Screening 1964 RSV Patients and Patients Aged 60 years or older (1 - Risk 60-74 years 1-dose series) 2012 DTaP/Tdap/Td Vaccines (2 - Td or Tdap) 01/29/2023 01/29/2013 SDOH Screening 01/24/2025 01/25/2024 COVID-19 Vaccine ( season) 2025 08/13/2024, 09/07/2023, 08/26/2022, Additional history exists Depression Screening 08/13/2025 08/13/2024, 08/13/20 24 Diabetes: Hemoglobin A1C 08/13/2025 024, 03/01/2024, 03/08/2023, Additional history exists Tobacco Screening 08/13/2025 08/13/2024 Mammogram 08/30/2025 08/30/2024, 04/15, 05/11/2022, Additional history exists Lipid Panel 03/15/2027 03/15/2022 Colonoscopy 06/11/2027 06/11/2022 Colorectal Cancer Screening 06/11/2027 Zoster Vaccines Completed 11/29/2019, 11/14, 08/22/2019, Additional history exists Hepatitis C Screening Completed 01/02/2020 Influenza Vaccine Completed 08/13/2024, , 08/26/2022, Additional [...] Procedure Name Priority Date/Time Associated Diagnosis Comments BD DEXA AXIAL Routine 03/19/2025 9:45 AM EDT FL GUIDANCE IN OR Routine 02/01/2025 9:1 [...] Recently Relevant to Health Maintenance Results * BD DEXA Axial (03/19/2025 9:45 AM EDT) Anatomical Region Laterality Modality Body Radiographic Rena ging 03/19/2025 9:45 AM EDT Narrative 03/19/2025 11:58 AM EDT ? [facility] ? [address] [facility] . ?[place] [address] ?[phone] ? Mammography Report ? Signed ? Patient: Karl Monterroso,Nasreen ?MR#: MM ?? [id number] ? : 1950 ?Acct:[id number] ? Age/Sex: 74 / F ?ADM Date: 05/06/25 ? Loc: HO.MAMMO ? Attending Dr: Solange Ojeda MD ? Ordering Physician: Solange Ojeda MD ?Results: ? Date of Service: 03/19/25 ?Follow Up: ? Procedure(s): XR DEXA axial skeleton ?? Accession Number(s): [id number] ? cc: Solange Ojeda MD; Violeta Boo MD ? EXAMINATION: ??DXA BONE DENSITY AXIAL ? HISTORY: ??L40.50 - Arthropathic psoriasis, unspecified ? TECHNIQUE: HoozOn Dual energy absorptiometry (DEXA) ?? of the lumbar spine, total left hip, and femoral neck was performed. ? COMPARISON: Comparison is made with the prior examination dated ?? 06/25/2022. ? FINDINGS: ? The bone mineral density of the lumbar spine is 1.263 with a T-score of ?? 0.8, and a Z-score of 1.3. This is indicative of normal bone mineral ?? density. ? This represents a BMD change of 10.9% compared to the prior exam. ??This ?? is statistically significant. ? The bone mineral density of the left total hip is 0.913 with a T-score ?? of -0.8, and a Z-score of 0.0. This is indicative of normal bone ?? mineral density. ? This represents a BMD change of -6.6% compared to the prior exam. ??This ?? is statistically significant. ? The bone mineral density of the left femoral neck is 0.834 with a ?? T-score of -1.5, and a Z-score of -0.4. This is indicative of ?? osteopenia. ? This represents a BMD change of -3.5% compared to the prior exam. ? FRACTURE RISK: ?? The FRAX index suggests a ten year probability of major osteoporotic ?? fracture of 5.1%, and of hip fracture 0.8%. ? MM/XR DEXA axial skeleton ?? IMPRESSION: ?? Based on bone mineral density, and according to World Health ?? Organization (WHO) criteria, the diagnosis is consistent with ?? osteopenia. ? All bone density values are in grams per centimeter squared (g/cm2). ?? Statistically, 68% of repeat scans fall within 1 SD (+/- 0.010 g/cm2 ?? for AP spine L1-L4) and 1 SD (+/- 0.012 g/cm2 for femur total) ?? FRAX is a trademark of the [employer]'s ?? Webb for Metabolic Bone Disease, a World Health Organization (WHO) ?? Collaborating Center. ? Electronically signed by: ??Carlos Eduardo Weathers MD ??03/19/2025 11:56 AM EDT ?? RP ? Dictated By: ?Carlos Eduardo Weathers MD ? Signed By: ?<Electronically signed by Carlos Eduardo Weathers MD in OV> ?03/19/25 1156 ? DD/ 0945 ? TD/TT: 03/19/25 1000 ? Health Director: ? Procedure Note Shireen Parsons - 03/19/2025 [facility] [address] [place] [address] Mammography Report Signed Patient: Violeta Alvarenga R#: [id number] : 2Acct:[id number] Age/Sex: 74 / FADM Date: 03/19/25 Loc: [facility] Attending Dr: Solange Ojeda MD Ordering Physician: Solange Ojedaesults: Date of Service: 03/19/25Follow Up: Procedure(s): XR DEXA axial skeleton Accession Number(s): [id number] cc: Solange Ojeda MD; Violeta Boo MD EXAMINATION: DXA BONE DENSITY AXIAL HISTORY: L40.50 - Arthropathic psoriasis, unspecified TECHNIQUE: HoozOn Dual energy absorptiometry (DEXA) of the lumbar spine, total left hip, and femoral neck was performed. COMPARISON: Comparison is made with the prior examination dated 06/25/2022. FINDINGS: The bone mineral density of the lumbar spine is 1.263 with a T-score of 0.8, and a Z-score of 1.3. This is indicative of normal bone mineral density. This represents a BMD change of 10.9% compared to the prior exam. This is statistically significant. The bone mineral density of the left total hip is 0.913 with a T-score of -0.8, and a Z-score of 0.0. This is indicative of normal bone mineral density. This represents a BMD change of -6.6% compared to the prior exam. This is statistically significant. The bone mineral density of the left femoral neck is 0.834 with a T-score of -1.5, and a Z-score of -0.4. This is indicative of osteopenia. This represents a BMD change of -3.5% compared to the prior exam. FRACTURE RISK: The FRAX index suggests a ten year probability of major osteoporotic fracture of 5.1%, and of hip fracture 0.8%. MM/XR DEXA axial skeleton IMPRESSION: Based on bone mineral density, and according to World Health Organization (WHO) criteria, the diagnosis is consistent with osteopenia. All bone density values are in grams per centimeter squared (g/cm2). Statistically, 68% of repeat scans fall within 1 SD (+/- 0.010 g/cm2 for AP spine L1-L4) and 1 SD (+/- 0.012 g/cm2 for femur total) FRAX is a trademark of the [employer]'s Webb for Metabolic Bone Disease, a World Health Organization (WHO) Collaborating Center. Electronically signed by: Carlos Eduardo Weathers MD 03/19/2025 11:56 AM EDT RP Dictated By: Carlos Eduardo Weathers MD Signed By: <Electronically signed by Carlos Eduardo Weathers MD in OV> 03/19/25 1156 DD/ 0945 TD/TT: 03/19/25 1000 Health Director: [facility] External Provider IMG DXA PROCEDURES Final Result * FL Guidance in OR (02/01/2025 9:10 AM EDT) Anatomical Region Laterality Modality X-Ray Angiograph y 02/01/2025 9:10 AM EDT Narrative 02/01/2025 11:33 AM EDT ? [facility] ?[address] ?[place] [address] ? Fluoroscopy Report ? Signed ? Patient: Kalr Violeta Monterroso V ?MR#: MM ?? [id number] ? : 1950 ?Acct:[id number] ? Age/Sex: 74 / F ?ADM Date: 02/01/25 ? Loc: HO.SSS ? Attending Dr: Jigar Trevino MD ? Ordering Physician: Jigar Trevino MD ?? Date of Service: 02/01/25 ?? Procedure(s): FL guidance in OR ?? Accession Number(s): [id number] ? cc: Violeta Boo MD; Jigar Trevino [...] DD/ 0910 ? TD/TT: 02/01/25 1100 ? Health Director: ? Procedure Note Donotrambointerpreter, Image - 02/01/[address] [address] Fluoroscopy Report Signed Patient: Violeta Alvarenga VMR#: [id number] : 2Acct:[id number] Age/Sex: 74 / FADM Date: 02/01/25 Loc: HO.SSS Attending Dr: Jigar Trevino MD Ordering Physician: Jigar Trevino MD Date of Service: 02/01/25 Procedure(s): FL guidance in OR Accession Number(s): [id number] cc: Violeta Boo MD; Jigar Trevino MD [...] 02/01/25 1131 DD/ 0910 TD/TT: 02/01/25 1100 Health Director: us [facility] External Provider IMG IR PROCEDURES Final Result * (ABNORMAL) Glucose, Whole Blood (02/01/2025 8:33 AM EDT) Glucose, Whole Blood 121(H) 60 - 115 mg/dL [facility] Comment:METER #: [id number] 02/01/2025 8:33 AM EDT 02/01/2025 8:43 AM EDT us Generic External Data Provider LAB BLOOD ORDERAB LES Final Result [facility] [address] [place] [address] [phone] * CBC auto differential (01/14/2025 10:48 AM EST) White Blood Count 10.1 4.8 - 10.8 X10*3/uL [facility] Red Blood Count 4.46 4.20 - 5.50 X10*6/uL [facility] Hemoglobin 13.6 12.0 - 16.0 g/dl [facility] Hematocrit 42.0 37.0 - 47.0 % [facility] Mean Corpuscular Volume 94.2 80.0 - 98.0 fL [facility] Mean Corpuscular Hemoglobin 30.5 27.0 - 33.0 pg [facility] Mean Corpuscular HGB Conc 32.4 31.0 - 35.0 g/dl [facility] Red Cell Distribution Width 14.6 11.0 - 16.0 % [facility] Platelet Count 330 160 - 400 X10*3/uL [facility] Mean Platelet Volume 10.8 9.4 - 12.3 fL [facility] Neutrophils Percent Auto 64.5 45 - 73 % [facility] Imm Gran Pct Auto 0.3 0.0 - 0.4 % [facility] Lymphocytes Percent Auto 24.8 20 - 40 % [facility] Monocytes Percent Auto 7.9 2 - 11 % [facility] Eosinophils Percent Auto 1.9 0 - 4 % [facility] Basophils Percent Auto 0.6 0 - 2 % [facility] NRBC Pct Auto 0.0 0.0 - 0.2 /100WBC [facility] Neutrophils Absolute Auto 6.5 2.0 - 8.3 x10*3/uL [facility] Imm Gran Abs Auto 0.03 0.00 - 0.03 X10*3/uL [facility] Lymphocytes Absolute Auto 2.5 1.2 - 4.9 X10*3/uL [facility] Monocytes Absolute Auto 0.8 0.1 - 1.2 X10*3/uL [facility] Eosinophils Absolute Auto 0.2 0.0 - 0.4 X10*3/uL [facility] Basophils Absolute Auto 0.1 0.0 - 0.2 X10*3/uL [facility] NRBC Abs Auto 0.000 0.0 - 0.012 X10*3/uL [facility] 01/14/2025 10:4 8 AM EST 01/14/2025 10:48 AM EST Generic External Data Provider LAB BLOOD ORDERAB LES Final Result Performing Organization Address [facility] de Phone Number [facility] [address] [place] [phone] * (ABNORMAL) Sed Rate by Modified Latosharen (01/14/2025 10:48 AM EST) Erythrocyte Sedimentation Rate 36(H) 0 - 20 MM/HR [facility] Comment:Patients with polycy themia and many hemoglobin abnormalitiesmay have depressed sed rates whereas patients with anemiamay have elevated sed rates. 01/14/2025 10:4 8 AM EST 01/14/2025 10:48 AM EST Generic External Data Provider LAB BLOOD ORDERAB LES Final Result Performing Organization Address [facility] Co de Phone Number [facility] [address] [place] [phone] * C-reactive Protein (01/14/2025 10:48 AM EST) C Reactive Protein 0.37 < or = 0.50 mg/dL [facility] 01/14/2025 10:4 8 AM EST 01/14/2025 10:48 AM EST us Generic External Data Provider LAB BLOOD ORDERAB LES Final Result Performing Organization Address City/[facility]/ZIP Co de Phone Number [facility] [address] [place] [address] [phone] * Uric acid (01/14/2025 10:48 AM EST) Uric Acid 5.0 2.4 - 5.7 mg/dL [facility] 01/14/2025 10:4 8 AM EST 01/14/2025 10:48 AM EST Generic External Data Provider LAB BLOOD ORDERAB LES Final Result Performing Organization Address [facility] de Phone Number [facility] [address] [place] [address] [phone] * (ABNORMAL) Comprehensive Metabolic Panel (01/14/2025 10:48 AM EST) Pathologist [facility] Sodium 142 135 - 145 mmol/L [facility] Potassium 4.4 3.3 - 5.1 mmol/L [facility] Chloride 103 96 - 108 mmol/L [facility] Carbon Dioxide 29 22 - 29 mmol/L [facility] Anion Gap 14 12 - 20 [facility] Urea Nitrogen (BUN) 25(H) 9 - 16 mg/dL [facility] Creatinine, Serum 1.47(H) 0.5 - 1.4 mg/dL [facility] Estimated Glomerular Filt Rate 35 [facility] Comment:Chronic Kidney Disea se: Estimated GFR < 60 mL/min/1.60e7Oqzygg Kidney Disease: Estimated GFR < 15 mL/min/1.73m2 Glucose 100 60 - 115 mg/dL [facility] Calcium 9.7 8.4 - 10.2 mg/dL [facility] Bilirubin, Total 0.4 0.0 - 1.0 mg/dL [facility] Aspartate Amino Transferase 23 5 - 31 U/L [facility] Alanine Aminotransferase 19 0 - 31 U/L [facility] Total Protein 7.2 6.5 - 8.0 g/dL [facility] Albumin Level 3.8 3.5 - 5.0 g/dL [facility] Alkaline Phosphatase 138(H) 39 - 117 U/L [facility] 01/14/2025 10:4 8 AM EST 01/14/2025 10:48 AM EST us Generic External Data Provider LAB BLOOD ORDERAB LES Final Result [facility] [address] [place] [address] [phone] * BI Mammogram Screening Tomosynthesis Bilateral (08/30/2024 9:10 AM EDT) Anatomical Region Laterality Modality Breast Bilateral Mammography 08/30/2024 9:10 AM EDT Narrative 09/11/2024 12:30 PM EDT ? [facility] ? [address] ?[place] [address] ? Mammography Report ? Signed with Addenda ? Patient: Violeta Alvarenga V ?MR#: MM ?? [id number] ? : 1950 ?Acct:[id number] ? Age/Sex: 74 / F ?ADM Date: 08/30/24 ? Loc: HO.MAMMO ? Attending Dr: Violeta Pascual MD ? Ordering Physician: Violeta Boo MD ?Results: ?? 2Benign Findings ? Date of Service: 08/30/24 ?Follow Up: 1 Year From Orig ?? inal Mammogram ? Procedure(s): MM tomosynthesis screening BI ?? Accession Number(s): [id number] ? cc: Violeta Boo MD ?ADDENDUM ? [...] 09/11/24 1227 ? DD/ 0910 ? TD/TT: 08/30/[address] ? Health Director: ? Procedure Note Donotrambointerpreter, Image - 09/14/2024 [facility] [address] [place] [address] Mammography Report Signed with Addenda Patient: InaVioleta Spencer VMR#: [id number] : 1950cct:[id number] Age/Sex: 74 / FADM Date: 08/30/24 Loc: HO.MAMMO Attending Dr: Violeta Pascual MD Ordering Physician: Violeta Boo MDResults: 2Benign Findings Date of Service: 08/30/24Follow Up: 1 Year From Orig inal Mammogram Procedure(s): MM tomosynthesis screening BI Accession Number(s): [id number] cc: Violeta Boo MD ADDENDUM ADDENDUM #1 [...] OV> 09/11/24 1227 DD/ 9 TD/TT: 08/30/[address] Health Director: Violeta Pascual MD IMG BI PROCEDURES Shemar daylin Result - Final * POCT HGB A1C (08/13/2024 10:31 AM EDT) [facility] Hemoglobin A1C 6.0 4.0 - 6.0 % QC Media Lot # [id number] Lot# Expiration Date 6213 Blood 08/13/2024 10:3 1 AM EDT Violeta [...] Madi WADE et al. JUAN LUIS. 2013;310(19): 8190-5605 ?? (http://[employer].[email or web address].RU/faq/KVI457) Non-HDL Cholesterol 124 <130 mg/dL (calc) [facility] Comment: For patients with diabetes plus 1 major ASCVD risk ?? factor, treating to a non-HDL-C goal of <100 mg/dL ?? (LDL-C of <70 mg/dL) is considered a therapeutic ?? option. Triglycerides 190(H) <150 mg/dL [facility] 03/15/2022 9:22 AM EDT Leonard Perez MD LAB BLOOD ORDERABL ES Final Result Performing Organization Address [facility] Number [facility] [address] * HEPATITIS C ANTIBODY RFLX (01/02/2020 10:23 AM EST) HEPATITIS C ANTIBODY NONREACTIVE NONREACTIVE [facility] Comment: Antibodies to HCV not detected; does not exclude early acute HCV infection. 01/02/2020 10:2 3 AM EST Historical Provider HISTORICAL/NON ORDERABLE LABS Final Result Performing Organization Address [facility] Phone Number [facility] [address] from Last 3 Months or Most Recently Relevant to Health Maintenance Insurance [facility] DUAL COMPLETE Care Teams Lay Out Maker Relationship Specialty Start Date End Date Violeta Boo MD [address] [place] [phone] PCP - General Family Medicine 05/21/22
--- OUTSIDE RECORDS SUMMARY | 2025-03-28 09:17 | XMS_ITS | Encounter Summary ---
Author Organization [employer] Address [address] [facility] 7t [place] [address] Care Team Providers Care Pack Operator Name Role Phone Violeta Boo MD Primary Care Provide r Reason for Visit * Reason Onset Date Comments Reasonable Accommodation Request 10/25/2022 I called regarding a reasonable accommodation form, from [facility]. The pt states that she will be getting a scooter, because she is no longer able to use a cane or a walker. She is requesting an apartment with elevator accessibility, because it would be easier for her to get in and out of her apartment. Encounter Details Date Type Department Care Team (Late st Contact Info) Description 10/25/2022 Telephone [facility] [address] [place] [address] [place] Reasonable Accommodation Request (I called regarding a reasonable accommodation form, from [facility]. The pt states that she will be [...] Description 05/23/2025 9:00 AM EDT Office Visit [facility] [address] [place] [address] Violeta Boo MD [address] [place] [address] 06/07/2025 9:30 AM EDT Office Visit [facility] [address] [place] [address] Caden, Angella, OD [address] [place] [address] documented as of this encounter Visit Diagnoses Not on filedocumented in this encounter Care Teams Pack Operator Relationship Specialty Start Date End Date Violeta Boo MD [address] [place] [address] PCP - General Family Medicine 05/21/22 documented as of this encounter
--- OUTSIDE RECORDS SUMMARY | 2025-03-28 09:17 | XMS_ITS | Encounter Summary ---
Author Organization [employer] Address [address] [facility] 7t [place] [address] Care Team Providers Care Mri Supervisor Name Role Phone Violeta Boo MD Primary Care Provide r Reason for Visit * Reason Comments Med Refill Encounter Details Date Type Department Care Team ([facility] st Contact Info) Description 11/02/2024 Refill [facility] [address] [place] [address] Violeta Boo MD [address] [place] [address] Pain Social History Tobacco Use Types Packs/Day [...] Description 05/23/2025 9:00 AM EDT Office Visit [facility] [address] [place] [address] Violeta Boo MD [address] [place] [address] 06/07/2025 9:30 AM EDT Office Visit [facility] [address] [place] [address] Caden, Angella, OD [address] [place] [address] documented as of this encounter Visit Diagnoses Diagnosis Pain Generalized pain documented in this encounter Additional Health Concerns Assessment Noted Time PHQ-9 Depression Total Score: 17 024 11:23 AM EDT documented as of this encounter Care Teams Mri Supervisor Relationship Specialty Start Date End Date Violeta Boo MD [address] [place] [phone] PCP - General Family Medicine 05/21/22 documented as of this encounter
--- OUTSIDE RECORDS SUMMARY | 2025-03-28 09:17 | XMS_ITS | Encounter Summary ---
Author Organization [employer] Address [address] [place] [address] [address] [place] [address] Care Team Providers Care Sewer Line Repairer Name Role Phone Violeta Boo MD Primary Care Provide r Encounter Details Date Type Department Care Team ([facility] Contact Info) Description 03/22/2023 Orders Only [facility] [address] [place] [address] Brittany Epps LPN Social History Tobacco Use [...] Encounters Date Type Department Care Team ([facility] Contact Info) Description 05/23/2025 9:00 AM EDT Office Visit [facility] [address] [place] [address] Violeta Boo MD [address] [place], [place] [phone] 06/07/2025 9:30 AM EDT Office Visit [facility] [address] [place], [place] [phone] Angella Negrete, OD [address] [place], [place] [phone] documented as of this encounter Visit Diagnoses Not on filedocumented in this encounter Care Teams Sewer Line Repairer Relationship Specialty Start Date End Date Violeta Boo MD [address] [place], [place] [phone] PCP - General Family Medicine 05/21/22 documented as of this encounter
--- OUTSIDE RECORDS SUMMARY | 2025-03-28 09:17 | XMS_ITS | Encounter Summary ---
Author Organization [facility] [place], Address [address] [place] [address] Phone Care Team Providers Care Track Announcer Name Role Phone Violeta Boo MD Primary Care Provide r Encounter Details Date Type Department Care Team (Late Contact Info) Description 05/05/2022 Documentation Only [facility] [address] [place] [address] Shailesh Vallejo MD [address] [place] [address] [place] [address] Social History Tobacco Use Types [...] Visit [facility] [address] [place] [address] Shailesh Vallejo MD [address] [place] [address] [place] [address] documented as of this encounter Visit Diagnoses Not on filedocumented in this encounter Care Teams Track Announcer Relationship Specialty Start Date End Date Violeta Boo MD [address] [place] [phone] PCP - General Internal Medicine 03/21/23 documented as of this encounter
--- OUTSIDE RECORDS SUMMARY | 2025-03-28 09:17 | XMS_ITS | Encounter Summary ---
Author Organization [facility] Address [address] [place] [address] Phone Care Team Providers Care Crystal Grinder Name Role Phone Violeta Boo MD Primary Care Provide r Encounter Details Date Type Department Care Team (Late Contact Info) Description 2022 Office Communication [facility] [address] [place] [address] Shailesh Vallejo MD [address] [place] [address] [place] [address] Social History Tobacco Use Types [...] Visit [facility] [address] [place] [address] Shailesh Vallejo MD [address] [place] [address] [place] [address] documented as of this encounter Visit Diagnoses Not on filedocumented in this encounter Care Teams Crystal Grinder Relationship Specialty Start Date End Date Violeta Boo MD [address] [place] [phone] PCP - General Internal Medicine 03/21/23 documented as of this encounter
--- OUTSIDE RECORDS SUMMARY | 2025-03-28 09:17 | XMS_ITS | Encounter Summary ---
Author Organization [employer] Address 75 [facility] 7t [place] [address] Care Team Providers Care Asphalt Tamper Name Role Phone Violeta Boo MD Primary Care Provide r Reason for Visit * Reason Onset Date Comments Durable Medical Equipment 11/20/2024 Encounter Details Date Type Department Care Team ([facility] st Contact Info) Description 11/20/2024 Telephone [facility] MEDICINE [address] [place] [address] Violeta Boo MD 230 [place] [address] Durable Medical Equipment Social History Tobacco Use [...] any questions you can contact pt at [phone]. (Latvian Speaker) documented in this encounter Plan of Treatment Upcoming Encounters Date Type Department Care Team (Late st Contact Info) Description 05/23/2025 9:00 AM EDT Office Visit [facility] [address] [place] [address] Violeta Boo MD [address] [place] [address] 06/07/2025 9:30 AM EDT Office Visit [facility] OPTOMETRY [address] [place] [address] Angella Negrete OD 230 [place] [address] documented as of this encounter Visit Diagnoses Not on filedocumented in this encounter Additional Health Concerns Assessment Noted Time PHQ-9 Depression Total Score: 17 024 11:23 AM EDT documented as of this encounter Care Teams Asphalt Tamper Relationship Specialty Start Date End Date Violeta Boo MD 230 [place] [address] PCP - General Family Medicine 05/21/22 documented as of this encounter
--- OUTSIDE RECORDS SUMMARY | 2025-03-28 09:17 | XMS_ITS | Encounter Summary ---
Author Organization [employer] Address 75 [facility] 7t [place] [address] Care Team Providers Care Oil Gauger Name Role Phone Violeta Boo MD Primary Care Provide r Reason for Visit * Reason Comments Med Refill Encounter Details Date Type Department Care Team ([facility] st Contact Info) Description 11/18/2022 Refill [facility] & PEDS [address] [place] [address] Betsy Simmons CNM 230 [place] [address] Social History Tobacco Use Types Packs/Day Years [...] No answer, left V/M. Will retask to [place] nurses for second attempt * Telephone Encounter [...] Description 05/23/2025 9:00 AM EDT Office Visit [facility] MEDICINE 230 [place], [place] [phone] Violeta Boo MD 230 [place], [place] [phone] 06/07/2025 9:30 AM EDT Office Visit [facility] OPTOMETRY [address] [place], [place] [phone] Caden, Angella, OD 230 [place], [place] [phone] documented as of this encounter Visit Diagnoses Not on filedocumented in this encounter Care Teams Oil Gauger Relationship Specialty Start Date End Date Violeta Boo MD 230 [place] [address] PCP - General Family Medicine 05/21/22 documented as of this encounter
--- OUTSIDE RECORDS SUMMARY | 2025-03-28 09:17 | XMS_ITS | Clinical Summary ---
Author Organization [facility] [place], Address [address] [place] [address] [place] [address] Phone Care Team Providers Care Billet Shearer Name Role Phone Violeta Boo MD Primary [...] Active Problems Problem Noted Date Diagnosed Date Renal disorder due to type 2 diabetes mellitus 0 03/19/2025 Stage 3b chronic kidney disease 01/31/2023 Type 2 diabetes mellitus 01/31/2023 Low back pain 11/02/2021 Stage 3a chronic kidney disease 02/12/2020 Overview (11/17/2020): Update for Diagnosis Load Essential (primary) hypertension 02/12/2020 Resolved Problems Problem Noted Date Diagnosed Date Resolved Date Gout 02/12/2020 06/15/2021 alf use of nonsteroida l antiinflammatories 02/12/2020 06/15/2021 Encounters Date Type Department Care Team Description 03/20/2025 Documentation Only [facility] [place], [address] [place] [address] Rowena Knowles 03/19/2025 1:30 PM EDT Office Visit [facility] [address] [place] [address] Shailesh Vallejo MD Stage 3b chronic kidney disease (HCC) (Primary Dx); Essential (primary) hypertension; Renal disorder due to type 2 diabetes mellitus <Other diabetic kidney complication> (HCC) 03/18/2025 Orders Only [facility] [address] [place] [address] Shailesh Vallejo MD Stage 3b chronic kidney [...] Care Team (Late st Contact Info) Description 04/01/2026 1:45 PM EDT Office Visit [facility] [address] [place] [address] Shailesh Vallejo MD [address] [facility] [place] [phone] Health Maintenance Due Date Last Done Comments [...] AM EST) Hemoglobin A1C 7.1(H) (4.0-5.6) % [facility] Comment: MONITORING: In known diabetic patients, hemoglobin A1c targets should be discussed with health care provider. DIAGNOSTIC USE: ??The [place] [employer] Diabetes Association (ADA) and the World Health [...] Supplement 1 Testing performed or reported by [facility], a Service of [facility], [address] [place] [address] Yana Bales MD, [employer] Wa[employer] [facility]# [id number] Blood (Blood, Venous) 10/20/2022 9:21 AM EST 10/20/2022 9:22 AM EST us Shailesh Vallejo MD LAB BLOOD ORDERABLES Final Resul t [facility] from Last 3 Months or Most Recently Relevant to Health Maintenance Insurance [facility] ([id number]) Care Teams Billet Shearer Relationship Specialty Start Date End Date Violeta Boo MD [address] [place] [phone] PCP - General Internal Medicine 03/21/23
--- OUTSIDE RECORDS SUMMARY | 2025-03-28 09:17 | XMS_ITS | Encounter Summary ---
Author Organization [facility] [place], Address [address] [place] [address] Phone Care Team Providers Care Silk Examiner Name Role Phone Violeta Boo MD Primary Care Provide r Encounter Details Date Type Department Care Team (Late Contact Info) Description 08/27/2024 Documentation Only [facility] [address] [facility] [address] [place] [address] Rowena Knowles [address] [place] [phone] Social History Tobacco Use Types Packs/Day Years [...] Visit [facility] [place], [address] [facility] [place] [address] Shailesh Vallejo MD [address] [place] [address] [place] [address] documented as of this encounter Visit Diagnoses Not on filedocumented in this encounter Care Teams Silk Examiner Relationship Specialty Start Date End Date Violeta Boo MD [address] [place] [phone] PCP - General Internal Medicine 03/21/23 documented as of this encounter
--- OUTSIDE RECORDS SUMMARY | 2025-03-28 09:17 | XMS_ITS | Encounter Summary ---
Author Organization [employer] Address 75 [facility] 7t [place] [address] Care Team Providers Care Wall Taper Helper Name Role Phone Violeta Boo MD Primary Care Provide r Encounter Details Date Type Department Care Team (Late st Contact Info) Description 07/20/2024 Telephone [facility] OPTOMETRY [address] [place] [address] Angella Negrete, OD [address] [place] [address] Social History Tobacco Use Types Packs/Day Years [...] t he electric, gas, oil or water [employer] threatened to shut off services in your [...] 07/20/2024 3:24 PM EDT Called the Patient GREEN COFFEE BLENDER Nikita Sneed, to inform her at the [...] 05/23/2025 9:00 AM EDT Office Visit [facility] MEDICINE 230 [place] [address] Violeta Boo MD 230 [place] [address] 06/07/2025 9:30 AM EDT Office Visit [facility] OPTOMETRY [address] [place] [address] Angella Negrete, OD [address] [place] [address] documented as of this encounter Visit Diagnoses Not on filedocumented in this encounter Care Teams Wall Taper Helper Relationship Specialty Start Date End Date Violeta Boo MD [address] [place] [address] PCP - General Family Medicine 05/21/22 documented as of this encounter
--- OUTSIDE RECORDS SUMMARY | 2025-03-28 09:17 | XMS_ITS | Encounter Summary ---
Author Organization [employer] Address 75 [facility] [address] [place] [address] Care Team Providers Care Suspension Cord Tier Name Role Phone Violeta Boo MD Primary Care Provide r Reason for Visit * Reason Onset Date Comments Referral 12/07/2024 Encounter Details Date Type Department Care Team ([facility] st Contact Info) Description 12/07/2024 Telephone [facility] MEDICINE 230 [place] [address] Violeta Boo MD [address] [place] [address] Referral Social History Tobacco Use Types Packs/Day [...] 12/07/2024 11:04 AM EST [facility] was sent over she's requestingPhysical Therapy referral to [facility] [phone]. documented in this encounter Plan of Treatment Upcoming Encounters Date Type Department Care Team (Late st Contact Info) Description 05/23/2025 9:00 AM EDT Office Visit [facility] MEDICINE [address] [place] [address] Violeta Boo MD [address] [place] [address] 06/07/2025 9:30 AM EDT Office Visit [facility] OPTOMETRY [address] [place] [address] Angella Negrete OD [address] [place] [address] documented as of this encounter Visit Diagnoses Not on filedocumented in this encounter Additional Health Concerns Assessment Noted Time PHQ-9 Depression Total Score: 17 024 11:23 AM EDT documented as of this encounter Care Teams Suspension Cord Tier Relationship Specialty Start Date End Date iVoleta Boo MD [address] [place] [address] PCP - General Family Medicine 05/21/22 documented as of this encounter
--- OUTSIDE RECORDS SUMMARY | 2025-03-28 09:18 | XMS_ITS | Encounter Summary ---
Author Organization [employer] Address 75 [facility] 7t [place] [address] Care Team Providers Care Tour Bus Driver/Guide Name Role Phone Violeta Boo MD Primary Care Provide r Encounter Details Date Type Department Care Team (Late st Contact Info) Description 01/23/2025 Telephone [facility] OPTOMETRY [address] [place] [address] Angella Negrete, OD [address] [place] [address] Social History Tobacco Use Types Packs/Day Years [...] Description 05/23/2025 9:00 AM EDT Office Visit [facility] MEDICINE [address] [place] [address] Violeta Boo MD [address] [place] [address] 06/07/2025 9:30 AM EDT Office Visit [facility] OPTOMETRY [address] [place] [address] Caden, Angella, OD 230 [place] [address] documented as of this encounter Visit Diagnoses Not on filedocumented in this encounter Additional Health Concerns Assessment Noted Time PHQ-9 Depression Total Score: 17 024 11:23 AM EDT documented as of this encounter Care Teams Tour Bus Driver/Guide Relationship Specialty Start Date End Date Violeta Boo MD 230 [place] [address] PCP - General Family Medicine 05/21/22 documented as of this encounter
--- OUTSIDE RECORDS SUMMARY | 2025-03-28 09:18 | XMS_ITS | Encounter Summary ---
Author Organization [employer] Address 75 [facility] 7[address] [place] [address] Care Team Providers Care Aquatic Facility Manager Name Role Phone Violeta Boo MD Primary Care Provide r Encounter Details Date Type Department Care Team (Late st Contact Info) Description 08/17/2023 Abstract [facility] MEDICINE [address] [place] [address] [phone] Violeta Boo MD [address] [place] [address] [phone] Social History Tobacco Use Types Packs/Day Years [...] Description 05/23/2025 9:00 AM EDT Office Visit [facility] MEDICINE [address] [place] [phone] Violeta Boo MD [address] [place] [address] [phone] 06/07/2025 9:30 AM EDT Office Visit [facility] OPTOMETRY [address] [place], [place] [address] Angella Negrete, OD [address] [place] [address] documented as of this encounter Visit Diagnoses Not on filedocumented in this encounter Care Teams Aquatic Facility Manager Relationship Specialty Start Date End Date Violeta Boo MD 230 [place], [place] [phone] PCP - General Family Medicine 05/21/22 documented as of this encounter
--- OUTSIDE RECORDS SUMMARY | 2025-03-28 09:18 | XMS_ITS | Encounter Summary ---
Author Organization [employer] Address 75 [facility] 7t [place] [address] Care Team Providers Care Biological Photographer Name Role Phone Violeta Boo MD Primary Care Provide r Reason for Visit * Reason Onset Date Comments Durable Medical Equipment 02/21/2025 Encounter Details Date Type Department Care Team ([facility] st Contact Info) Description 02/21/2025 Telephone [facility] MEDICINE 230 [place] [address] Violeta Boo MD [address] [place] [address] Durable Medical Equipment Social History Tobacco Use [...] - 02/21/2025 1:34 PM EDT TC from [facility] reports she has been out of office and received a referral for an order for adrienne askew. She is unable to complete this requests . Recommends to get referral to Ot or PT for Yawatorchiomaker. documented in this encounter Plan of Treatment Upcoming Encounters Date Type Department Care Team (Late st Contact Info) Description 05/23/2025 9:00 AM EDT Office Visit [facility] MEDICINE [address] [place] [address] Violeta Boo MD [address] [place] [address] 06/07/2025 9:30 AM EDT Office Visit [facility] OPTOMETRY [address] [place] [address] Angella Negrete, JOSH [address] [place] [address] documented as of this encounter Visit Diagnoses Not on filedocumented in this encounter Additional Health Concerns Assessment Noted Time PHQ-9 Depression Total Score: 17 024 11:23 AM EDT documented as of this encounter Care Teams Biological Photographer Relationship Specialty Start Date End Date Violeta Boo MD [address] [place] [address] PCP - General Family Medicine 05/21/22 documented as of this encounter
--- OUTSIDE RECORDS SUMMARY | 2025-03-28 09:18 | XMS_ITS | Encounter Summary ---
Author Organization [employer] Address 75 [facility] 7[address] [place] [address] Care Team Providers Care Country Printer Name Role Phone Violeta Boo MD Primary Care Provide r Reason for Visit * Reason Onset Date Comments No Show 03/26/2025 Encounter Details Date Type Department Care Team ([facility] st Contact Info) Description 03/26/2025 Telephone [facility] MEDICINE [address] [place] [address] Violeta Boo MD [address] [place] [address] No Show Social History Tobacco Use Types Packs/Day Years [...] encounter Miscellaneous Notes * Telephone Encounter - Osman Cain - 03/26/2025 10:28 AM EDT Pt no showed to appt on 03/26 documented in this encounter Plan of Treatment Upcoming Encounters Date Type Department Care Team (Late st Contact Info) Description 05/23/2025 9:00 AM EDT Office Visit [facility] MEDICINE [address] [place] [address] Violeta Boo MD [address] [place] [address] 06/07/2025 9:30 AM EDT Office Visit [facility] OPTOMETRY [address] [place] [address] Caden, Angella, OD 230 [place] [address] documented as of this encounter Visit Diagnoses Not on filedocumented in this encounter Additional Health Concerns Assessment Noted Time PHQ-9 Depression Total Score: 17 024 11:23 AM EDT documented as of this encounter Care Teams Country Printer Relationship Specialty Start Date End Date Violeta Boo MD [address] [place] [address] PCP - General Family Medicine 05/21/22 documented as of this encounter
--- OUTSIDE RECORDS SUMMARY | 2025-03-28 09:18 | XMS_ITS | Encounter Summary ---
Author Organization [employer] Address 75 [facility] 7t [place] [address] Care Team Providers Care Cooler Servicer Name Role Phone Violeta Boo MD Primary Care Provide r Reason for Visit * Reason Onset Date Comments call back needed 03/25/2025 Encounter Details Date Type Department Care Team ([facility] Contact Info) Description 03/25/2025 Telephone [facility] MEDICINE 230 [place] [address] Violeta Boo MD [address] [place] [address] call back needed Social History Tobacco Use Types Packs/Day Years [...] Telephone Encounter - Leda Ruiz RN - 03/25/2025 2:17 PM EDT TC returned to Jessica [phone] and RN provided with dx codes for vertigo, ZOEY, moderate persistent asthma, essential HTN, CKD, generalized osteoarthritis, prediabetes, mood disorder, unstable gait, hyperlipidemia, low back pain and bilateral hearing deficit. Mattie verbalized understanding. Mattie to f/u PRN. * Telephone Encounter - Luis Enrique Downs - 03/25/2025 12:40 PM EDT TC from Mattie a nurse with [facility] would like a call back regarding ICD-10 codes Dead[place] [phone] documented in this encounter Plan of Treatment Upcoming Encounters Date Type Department Care Team (Late st Contact Info) Description 05/23/2025 9:00 AM EDT Office Visit [facility] MEDICINE 230 [place] [address] Violeta Boo MD 230 [place], [place] [phone] 06/07/2025 9:30 AM EDT Office Visit [facility] OPTOMETRY [address] [place], [place] [phone] Angella Negrete, OD [address] [place] [address] documented as of this encounter Visit Diagnoses Not on filedocumented in this encounter Additional Health Concerns Assessment Noted Time PHQ-9 Depression Total Score: 17 024 11:23 AM EDT documented as of this encounter Care Teams Cooler Servicer Relationship Specialty Start Date End Date Violeta Boo MD [address] [place], [place] [phone] PCP - General Family Medicine 05/21/22 documented as of this encounter
--- OUTSIDE RECORDS SUMMARY | 2025-03-28 09:18 | XMS_ITS | Encounter Summary ---
Author Organization [employer] Address 75 [facility] 7t [place] [address] Care Team Providers Care Principal Database Developer Name Role Phone Violeta Boo MD Primary Care Provide r Reason for Visit * Reason Onset Date Comments Appointment Request 11/11/2023 Encounter Details Date Type Department Care Team (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 to being covid positive designer/writer did cancel appt documented in this encounter Plan of Treatment Upcoming Encounters Date Type Department Care Team (Late st Contact Info) Description 05/23/2025 9:00 AM EDT Office Visit [facility] MEDICINE 230 [place] [address] Violeta Boo MD 230 [place] [address] 06/07/2025 9:30 AM EDT Office Visit [facility] OPTOMETRY [address] [place] [address] Caden, Angella, OD 230 [place] [address] documented as of this encounter Visit Diagnoses Not on filedocumented in this encounter Care Teams Principal Database Developer Relationship Specialty Start Date End Date Violeta Boo MD 230 [place] [address] PCP - General Family Medicine 05/21/22 documented as of this encounter
--- OUTSIDE RECORDS SUMMARY | 2025-03-28 09:18 | XMS_ITS | Encounter Summary ---
Author Organization [employer] Address 75 [facility] 7t [place] [address] Care Team Providers Care Retail Salesman Name Role Phone Violeta Boo MD Primary Care Provide r Reason for Visit * Reason Onset Date Comments Durable Medical Equipment 10/13/2023 Encounter Details Date Type Department Care Team ([facility] st Contact Info) Description 10/13/2023 Telephone [facility] MEDICINE [address] [place] [address] Violeta Boo MD 230 [place], [place] [phone] Durable Medical Equipment Social History Tobacco Use [...] : 2xl Pullups Ensures Flavors Vanilla and [place] Gloves Large Wipes Pt states insurance fax over request. Please contact pt at [phone] Yoruba Speaker documented in this encounter Plan of Treatment Upcoming Encounters Date Type Department Care Team (Late st Contact Info) Description 05/23/2025 9:00 AM EDT Office Visit [facility] MEDICINE [address] [place] [address] Violeta Boo MD [address] [place] [address] 06/07/2025 9:30 AM EDT Office Visit [facility] OPTOMETRY [address] [place] [address] Angella Negrete, OD [address] [place] [address] documented as of this encounter Visit Diagnoses Not on filedocumented in this encounter Care Teams Retail Salesman Relationship Specialty Start Date End Date Violeta Boo MD [address] [place] [address] PCP - General Family Medicine 05/21/22 documented as of this encounter
--- OUTSIDE RECORDS SUMMARY | 2025-03-28 09:18 | XMS_ITS | Encounter Summary ---
Author Organization [employer] Address [address] [facility] 7t [place] [address] Care Team Providers Care Parachute Packer Name Role Phone Violeta Boo MD Primary Care Provide r Encounter Details Date Type Department Care Team ([facility] st Contact Info) Description 11/10/2023 Abstract [facility] MEDICINE [address] [place] [address] Violeta Boo MD 230 [place] [address] Social History Tobacco Use Types Packs/Day Years [...] 05/23/2025 9:00 AM EDT Office Visit [facility] MEDICINE [address] [place] [address] Violeta Boo MD 230 [place] [address] 06/07/2025 9:30 AM EDT Office Visit [facility] OPTOMETRY [address] [place] [address] Caden, Angella, OD 230 [place] [address] documented as of this encounter Visit Diagnoses Not on filedocumented in this encounter Care Teams Parachute Packer Relationship Specialty Start Date End Date Violeta Boo MD 230 [place] [address] PCP - General Family Medicine 05/21/22 documented as of this encounter
--- OUTSIDE RECORDS SUMMARY | 2025-03-28 09:18 | XMS_ITS | Encounter Summary ---
Author Organization [employer] Address [address] [facility] 7t [place] [address] Care Team Providers Care Steel Worker Name Role Phone Violeta Boo MD Primary Care Provide r Reason for Visit * Reason Onset Date Comments Appt cancelation 03/02/2024 Encounter Details Date Type Department Care Team ([facility] st Contact Info) Description 03/02/2024 Telephone [facility] MEDICINE 230 [place] [address] Violeta Boo MD 230 [place] [address] Appt cancelation Social History Tobacco Use Types [...] 04/27 due to being referred to outside contracting specialist documented in this encounter Plan of Treatment Upcoming Encounters Date Type Department Care Team (Late st Contact Info) Description 05/23/2025 9:00 AM EDT Office Visit [facility] MEDICINE 230 [place] [address] Violeta Boo MD 230 [place] [address] 06/07/2025 9:30 AM EDT Office Visit [facility] OPTOMETRY [address] [place] [address] Caden, Angella, OD 230 [place] [address] documented as of this encounter Visit Diagnoses Not on filedocumented in this encounter Care Teams Steel Worker Relationship Specialty Start Date End Date Violeta Boo MD 230 [place] [address] PCP - General Family Medicine 05/21/22 documented as of this encounter
--- OUTSIDE RECORDS SUMMARY | 2025-03-28 09:18 | XMS_ITS | Encounter Summary ---
Author Organization [employer] Address [address] [facility] 7t [place] [address] Care Team Providers Care Cement Conveyor Operator Name Role Phone Violeta Boo MD Primary Care Provide r Encounter Details Date Type Department Care Team (Latest Contact Info) Description 05/27/2022 Abstract [facility] CONVERSIONS Dental, Provider, DDS Social History Tobacco [...] Description 05/23/2025 9:00 AM EDT Office Visit [facility] MEDICINE 230 [place] [address] Violeta Boo MD 230 [place] [address] 06/07/2025 9:30 AM EDT Office Visit [facility] OPTOMETRY [address] [place] [address] Angella Negrete, OD 230 [place] [address] documented as of this encounter Visit Diagnoses Not on filedocumented in this encounter Care Teams Cement Conveyor Operator Relationship Specialty Start Date End Date Violeta Boo MD [address] [place] [address] PCP - General Family Medicine 05/21/22 documented as of this encounter
--- OUTSIDE RECORDS SUMMARY | 2025-03-28 09:18 | XMS_ITS | Encounter Summary ---
Author Organization [employer] Address [address] [facility] 7t [place] [address] Care Team Providers Care Hide Puller Name Role Phone Violeta Boo MD Primary Care Provide r Reason for Visit * Reason Comments Med Refill Encounter Details Date Type Department Care Team ([facility] st Contact Info) Description 03/22/2024 Refill [facility] MEDICINE [address] [place], [place] [phone] Violeta Boo MD [address] [place] [address] Dermatitis Social History Tobacco Use Types Packs/Day [...] [facility] MEDICINE [address] [place] [address] Violeta Boo MD [address] [place] [address] 06/07/2025 9:30 AM EDT Office Visit [facility] OPTOMETRY [address] [place] [address] Caden, Angella, OD 230 [place] [address] documented as of this encounter Visit Diagnoses Diagnosis Dermatitis Contact dermatitis and other eczema, due to unspecified cause documented in this encounter Care Teams Hide Puller Relationship Specialty Start Date End Date Violeta Boo MD 230 [place] [address] PCP - General Family Medicine 05/21/22 documented as of this encounter
--- OUTSIDE RECORDS SUMMARY | 2025-03-28 09:18 | XMS_ITS | Encounter Summary ---
Author Organization [employer] Address [address] [facility] [address] [place] [address] Care Team Providers Care Tinsmith Helper Name Role Phone Violeta Boo MD Primary Care Provide r Reason for Visit * Reason Onset Date Comments Appointment Request 01/29/2025 Encounter Details Date Type Department Care Team ([facility] st Contact Info) Description 01/29/2025 Telephone [facility] MEDICINE [address] [place] [address] Violeta Boo MD [address] [place] [address] Appointment Request Social History Tobacco Use Types [...] on 02/01 and can't walk after surgery. [phone] [email or web address] documented in this encounter Plan of Treatment Upcoming Encounters Date Type Department Care Team (Late st Contact Info) Description 05/23/2025 9:00 AM EDT Office Visit [facility] MEDICINE [address] [place] [address] Violeta Boo MD [address] [place] [address] 06/07/2025 9:30 AM EDT Office Visit [facility] OPTOMETRY [address] [place] [address] Angella Negrete, OD 230 [place] [address] documented as of this encounter Visit Diagnoses Not on filedocumented in this encounter Additional Health Concerns Assessment Noted Time PHQ-9 Depression Total Score: 17 024 11:23 AM EDT documented as of this encounter Care Teams Tinsmith Helper Relationship Specialty Start Date End Date Violeta Boo MD [address] [place] [address] PCP - General Family Medicine 05/21/22 documented as of this encounter
--- OUTSIDE RECORDS SUMMARY | 2025-03-28 09:18 | XMS_ITS | Encounter Summary ---
Author Organization [employer] Address [address] [place] [address] 7[address] [place] [address] Care Team Providers Care Tinning Machine Set Up Operator Name Role Phone Violeta Boo MD Primary Care Provide r Encounter Details Date Type Department Care Team (Late Contact Info) Description 08/03/2023 Orders Only [facility] MEDICINE [address] [place] [phone] ProviderLibra MD Social History Tobacco Use Types [...] [facility] MEDICINE 230 [place], [place] [phone] Violeta Boo MD 230 [place] [address] 06/07/2025 9:30 AM EDT Office Visit [facility] OPTOMETRY [address] [place] [phone] Angella Negrete, OD 230 [place] [address] documented as of this encounter Procedures Procedure Name Priority Date/Time Associated Diagnosis Comments HM COLONOSCOPY Routine 06/11/2022 documented in this encounter Results * Hm Colonoscopy (06/11/2022) Historical Provider HEALTH MAINTENANCE Final Result documented in this encounter Visit Diagnoses Not on filedocumented in this encounter Care Teams Tinning Machine Set Up Operator Relationship Specialty Start Date End Date Violeta Boo MD [address] [place] [address] PCP - General Family Medicine 05/21/22 documented as of this encounter
== END 2025-03-28 09:11 | disposition home or self-care (01) ==
LOC: HO.PMC 08:49
PROVIDERS: PCP Internal Medicine; Visit Provider Anesthesiology
DX: M84.48XA Pathological fracture, other site, initial encounter for fracture (principal)
CPT/HCPCS: 99213

== ENCOUNTER → 2025-03-28 09:19 | Outpatient (BNV) | payer OTHER, SELFPAY | PROVIDERS: PCP Internal Medicine; Visit Provider Radiology Diagnostic Radiology | DX: M51.369 Other intervertebral disc degeneration, lumbar region without mention of lumbar back pain or lower extremity pain (principal); R10.2 Pelvic and perineal pain | CPT/HCPCS: 72110; 72190 ==

== ENCOUNTER 2025-05-01 10:34 | Outpatient (AMB) | payer OTHER, SELFPAY ==
[2025-05-01 10:43] VITALS: BP 120/55; PULSE 78; RESP 16; O2SAT 94; BMI 47.8
--- NOTE | 2025-05-01 10:43 | MHC.OFFVIS ---
Vital Signs 05/01/25 10:43 Height 5 ft 3 in Weight 270 lb BMI 47.8 BP 120/55 L Blood Pressure Location Lt brachial Position Sitting Respiration 16 Pulse 78 Pulse Source Pulse Oximeter Pulse Oximetry (%) 94 Oxygen Delivery Method Room Air Intake Visit Reasons: X-Ray Review (X-ray Completed on 03/28/25) Retail Store Assistant Required: Yes Retail Store Assistant Services: Retail Store Assistant Present Retail Store Assistant Name: Osman [id number] Allergies peanut (PEANUT) Allergy (Severe, Verified 05/01/25 10:44) ITCHY, SWELLING seafood Allergy (Severe, Verified 05/01/25 10:44) Rash tomato (TOMATO) Allergy (Severe, Verified 05/01/25 10:44) ITCHY, SWELLING aspirin (ASA) Allergy (Intermediate, Verified 05/01/25 10:44) ITCHY,ANXIOUS, itching, rash Iodinated Contrast Media (IV CONTRAST) Allergy (Intermediate, Verified 05/01/25 10:44) HIVES plantain (PLANTAIN) Allergy (Intermediate, Verified 05/01/25 10:44) ITCHY/SWELLING HPI Comments Details: Deidra is very pleasant 74 years old female who is back in my office with complains on severe pain now in the projection of the lower lumbar spine. She was sent for the x-ray of the lumbar spine and x-ray of the pelvis. Lumbar spine x-ray demonstrated advanced spondylosis. It also showed bilateral more on the left and less on the right sacralization of the L5 vertebra. The pelvis x-ray was negative for sacroiliitis. It was also negative for hip joint arthritis. Her physical exam today makes me think about spondylosis of the lumbar spine as a cause of her pain. Her pain is mostly axial and does not radiate into bilateral lower extremities. I will schedule her for L2, L3, L4 bilateral medial branch block to support this theory offices spondylosis cause of her pain. I also explained to the patient that her severe obesity is 1 of the causes of her pain. Her BMI is 48 kilogram/meter sq. She said that she is working on it. Prior: She was under my care in January, she received 4 severe axial back pain aggravated by sitting and bending forward intercept procedure. She was doing very well after the procedure reported excellent mobility very good activities of daily living and absence of pain. However 3 days after I removed the stitches, she fell and started to feel this pain. The pain is very severe, aggravated by walking, and she reports clicking sensation in her pelvis. The sacral insufficiency, exacerbation of sacroiliac joint problem, versus lower lumbar spine fractures could not be excluded. I will send her for the x-ray of the lumbar spine and x-ray of the pelvis. [facility] Medical History (Updated 05/01/25 @ 12:46 by Jigar Trevino MD) Myocardial infarct Pain in left shoulder Screening for viral disease COPD (chronic obstructive pulmonary disease) Restrictive lung disease Allergic rhinitis ZOEY (obstructive sleep apnea) Edema PVD (peripheral vascular disease) On beta prashant at home Osteopenia Gout Osteoarthritis Rheumatoid arthritis Anemia Panic attacks Anxiety Schizophrenia Pre-diabetes CKD (chronic kidney disease), stage III GERD (gastroesophageal reflux disease) Fatty liver Myocardial infarction CAD (coronary artery disease) Angina pectoris HTN (hypertension) Morbid obesity ZOEY treated with BiPAP COPD (chronic obstructive pulmonary disease) Allergic rhinitis Surgical History History of colonoscopy (~2021) History of lumpectomy of right breast (06/21/22) History of bladder suspension procedure History of esophagogastroduodenoscopy (EGD) Hx of colonoscopy History of hysterectomy History of tubal ligation History of lumpectomy of right breast Family History Mother Leukemia Brother Colon cancer Brother Leukemia Sister Breast cancer Sister Vaginal cancer Sister Breast cancer Sister Breast cancer Daughter Thyroid disease Social History Alcohol intake: never Patient Tobacco Use Status: Never used Tobacco Second Hand Smoke Exposure: No Female Reproductive History Menstrual Age of Menarche: 13 Review of Systems Const All systems reviewed & are unremarkable except as noted in HPI and below Physical Exam Vital Signs: Last Vital Signs Pulse 78 05/01/25 10:43 Resp 16 05/01/25 10:43 BP 120/55 L 05/01/25 10:43 Pulse Ox 94 05/01/25 10:43 Oxygen Delivery Method Room Air 05/01/25 10:43 BMI result Body Mass Index 47.8 Const General: cooperative, healthy appearing, no acute distress and alert Orientation/consciousness: patient oriented x3 Limitations: no limitations HEENT Head: Yes normal to inspection, Yes normocephalic and Yes atraumatic Ears: hearing grossly normal bilaterally Eyes General: appearance normal, both eyes and all related structures Neck Neck: Yes normal visual inspection, Yes supple and Yes no JVD Resp Effort & Inspection: normal respiratory effort, able to speak in complete sentences and no audible wheezes Cardio Jugular venous distension: no JVD Peripheral pulses: Peripheral pulses 2+ throughout (no appreciable rhythmic abnormalities) Back/Spine/Pelvis Other: Norberto test and Pelvic compression test + bilaterally. Facet loading test + bilaterally. Thoracic/Lumbar Spine: thoracic and lumbar spine normal to inspection, No Thoracic/lumbar spine scar(s), pain with thoraco-lumbar ROM, paraspinal muscle tenderness, thoraco-lumbar ROM limited, thoracic spinal tenderness and lumbar spinal tenderness Sacroiliac joints: bilaterally tender to palpation Neuro General: patient oriented x3, No gait normal and moves all extremities Results Reviewed Results Reviewed: [address] [address] XRay Report Signed Patient: Violeta Alvarenga V MR#: [id number] : 1950 Acct:[id number] Age/Sex: 74 / F XR lumbar spine 4V min Findings: Normal vertebral body alignment. No acute fractures or dislocation. Loss of intervertebral disc height, vacuum phenomenon and endplate proliferation at L1-L2, L2-L3, L3-L4 and L4-L5. Facet osteoarthritis at L4-L5 and L5-S1. There is partial lumbarization of the left side of L5 with articulation of the left L5 transverse process with the left sacral ala. IMPRESSION: 1. Severe degenerative changes of the lumbar spine, similar to the prior study. 2. Partial sacralization of L5 on the left side. Assessment & Plan Assessment & Plan (1) Spondylosis of lumbar region without myelopathy or radiculopathy: Code(s): M47.816 - Spondylosis without myelopathy or radiculopathy, lumbar region Category: Medical (2) Morbid obesity: Comment: She remains morbidly obese, because she cannot do any exercise , she has lost a few lb of weight as compared to last time. Code(s): E66.01 - Morbid (severe) obesity due to excess calories Category: Medical Plan I will diagnose this patient with spondylosis of the lumbar spine without myelopathy or radiculopathy. We will schedule her for diagnostic medial branch block L2, L3, L4 bilateral medial branch blocks. The patient has sacralization of the L5 therefore it is difficult if not impossible to perform dorsal ramus L5 injection. She is also morbidly obese and I recommend her to work on losing weight. Coding Level of Care Code Est Pt Level 3 (41846) Diagnoses Spondylosis of lumbar region without myelopathy or radiculopathy M47.816 Morbid obesity E66.01
--- OUTSIDE RECORDS SUMMARY | 2025-05-01 12:04 | XMS_ITS | Encounter Summary ---
Author Organization [facility], Address [address] [place] [address] Phone Care Team Providers Care Fine Wire Drawer Name Role Phone Violeta Boo MD Primary Care Provide r Encounter Details Date Type Department Care Team (Late Contact Info) Description 03/15/2022 Documentation Only [facility] [address] [place] [address] Shailesh Vallejo MD [address] [place] [address] [place] [address] Social History Tobacco Use Types [...] Visit [facility] [address] [place] [address] Shailesh Vallejo MD [address] [place] [address] [place] [address] documented as of this encounter Visit Diagnoses Not on filedocumented in this encounter Care Teams Fine Wire Drawer Relationship Specialty Start Date End Date Violeta Boo MD [address] [place] [id number] PCP - General Internal Medicine 03/21/23 documented as of this encounter
== END 2025-05-01 11:09 | disposition home or self-care (01) ==
LOC: HO.PMC 10:34
PROVIDERS: PCP Internal Medicine; Visit Provider Anesthesiology
DX: M47.816 Spondylosis without myelopathy or radiculopathy, lumbar region (principal); E66.01 Morbid (severe) obesity due to excess calories
CPT/HCPCS: 99213

== ENCOUNTER → 2025-05-01 10:34 | Outpatient (BNVA) | payer OTHER, SELFPAY | PROVIDERS: PCP Internal Medicine; Visit Provider Anesthesiology | DX: M47.816 Spondylosis without myelopathy or radiculopathy, lumbar region (principal); E66.01 Morbid (severe) obesity due to excess calories; Z68.42 Body mass index [BMI] 45.0-49.9, adult | CPT/HCPCS: 99212 ==

== ENCOUNTER 2025-05-21 12:07 | Outpatient (REF) | payer OTHER, SELFPAY ==
--- NOTE | ~2025-05-21 | XR_ITS ---
EXAMINATION: XR SHOULDER, PABLO MIN 2V CLINICAL INFORMATION: pain s/p fall COMPARISON: 08/24/2022 TECHNIQUE: AP external rotation, Grashey, scapular Y views of each shoulder. FINDINGS: LEFT SHOULDER: Normal bone mineralization. No fracture, dislocation, or suspicious bone lesion. Normal alignment. The glenohumeral joint demonstrates mild degenerative changes with mild undersurface spurring. The AC joint demonstrates minimal degenerative spurring. There is a type II acromion. No undersurface spurring. The subacromial space is preserved. Remainder of the soft tissue and bony structures appear normal. RIGHT SHOULDER: Normal bone mineralization. No fracture, dislocation, or suspicious bone lesion. Normal alignment. The glenohumeral joint demonstrates minimal degenerative changes. Redemonstration of punctate tiny calcification of the infraspinatus tendon. The AC joint demonstrates minimal degenerative spurring. There is a type II acromion. No undersurface spurring. The subacromial space is preserved. Remainder of the soft tissue and bony structures appear normal. XR/XR Shoulder Pablo min 2V IMPRESSION: 1. No acute bony abnormalities of either shoulder. 2. Mild degenerative glenohumeral joint changes left greater than right. 3. Minimal degenerative AC joint changes bilaterally. 4. Minimal calcific tendinopathy of the right infraspinatus tendon. Electronically signed by: Jose F Pantoja MD 05/21/2025 01:06 PM EDT
--- NOTE | ~2025-05-21 | XR_ITS ---
EXAMINATION: XR FOOT, LEFT CLINICAL INFORMATION: s/p fall COMPARISON: None available. TECHNIQUE: AP, lateral, and oblique views of the left foot. FINDINGS: No acute cortical disruption. No gross malalignment. Plantar calcaneal spur. Small exostosis at the Achilles tendon insertion. No gross joint effusion. Degenerative changes in the proximal and distal interphalangeal joints of the toes. XR/XR foot LT min 3V IMPRESSION: No acute fracture or dislocation. Enthesopathy, Achilles tendon. Electronically signed by: Santiago Rodriguez MD 05/21/2025 01:02 PM EDT
--- NOTE | ~2025-05-21 | XR_ITS ---
Three-view bilateral hand x-rays INDICATION: Hand pain after falling TECHNIQUE: PA, lateral, oblique views upper extremity Prior: None FINDINGS: Right hand: There is subtle narrowing of the second DIP joint with small marginal osteophytes. There is a small ossification dorsal to the joint. There is widening of the scapholunate interval. Left hand: No acute fracture line is evident. Scapholunate interval widening is present. XR/XR Hand Bilat min 3v IMPRESSION: Right hand: Widening of scapholunate interval could indicate scapholunate ligament tear. 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 Small ossification dorsal to the joint is probably chronic, correlate for focal acute tenderness to rule out avulsion fracture. Left hand: Widening of scapholunate interval could indicate scapholunate ligament tear. Electronically signed by: Regulo Nolan MD 05/21/2025 01:09 PM EDT
--- OUTSIDE RECORDS SUMMARY | 2025-05-21 12:59 | XMS_ITS | Encounter Summary ---
Author Organization [employer] Address [address] [facility] [address] [place] [address] Care Team Providers Care Rotary Envelope Machine Operator Name Role Phone Violeta Boo MD Primary Care Provide r Reason for Visit * Reason Comments Med Refill Encounter Details Date Type Department Care Team (Late Contact Info) Description 02/13/2023 Refill [facility] MEDICINE [address] [place] [address] Cassy Starks MD [address] [place] [address] Social History Tobacco Use Types Packs/Day Years [...] Department Care Team (Late Contact Info) Description 06/07/2025 9:30 AM EDT Office Visit [facility] OPTOMETRY [address] [place] [address] Caden, Angella, OD [address] [place] [address] documented as of this encounter Visit Diagnoses Not on filedocumented in this encounter Care Teams Rotary Envelope Machine Operator Relationship Specialty Start Date End Date Violeta Boo MD [address] [place] [phone] PCP - General Family Medicine 05/21/22 documented as of this encounter
--- OUTSIDE RECORDS SUMMARY | 2025-05-21 12:59 | XMS_ITS | Clinical Summary ---
Author Organization [address] [facility] Address [address] [place] [address] Phone Care Team Providers Care Inside Upholsterer Name Role Phone Zheng Boo MD Primary Care Provide r Allergies [...] Chronic kidney disease, stag e III (moderate) ([facility] V24, [facility] V28) 10/08/2024 Essential hypertension, benign 10/08/2024 Hyperlipidemia 10/08/2024 Osteopenia 10/08/2024 Primary osteoarthritis of both knees 10/08/2024 Psychotic disorder ([facility] V24, [facility] V28) Tubular adenoma of colon 10/08/2024 Dyslipidemia [...] appointment Onychomycosis 03/08/2023 Type 2 diabetes mellitus ([facility] V24, [facility] V 28) 01/31/2023 Otitis externa 12/16/2022 Overview [...] Chronic gouty arthritis 09/08/2018 Episodic mood disorder ([facility] V24) 08/08/2018 Generalized osteoarthritis 08/08/2018 Morbid obesity ([facility] [place], [facility] V28) 2017 Overview (10/08/2024): Last Assessment & Plan: Discussed re weight reduction options including exercise, life style modifications, diet, referral to flight operations specialist. Discussed re lower calorie intake, increase [...] Care Team (Late st Contact Info) Description 07/02/2025 1:00 PM EDT Office Visit Orthopedic Surgery - [place] [address] [phone] Maury Godoy DPTeri [address] [address] Health Maintenance Due Date Last Done Comments [...] Hypertension/CHF/CAD Annual BMP Blood Test 03/01/2025 03/01/2024 Influenza Vaccine (#1) 2025 , 09/07/2023, 08/26/2022, Additional history exists Cholesterol Screening (Lipid Panel) 03/15/2027 03/15/2022 Zoster Vaccines Completed 11/29/2019, 100 07/2019, 01/14/2015 Pneumococcal Vaccine: 50+ Years Completed 08/13/2024, 03/19/2019, [...] Name Priority Date/Time Associated Diagnosis Comments HM ANNUAL BMP BLOOD TEST Routine 03/01/2024 HEMOGLOBIN A1C Routine 08/09/2022 LIPID PANEL Routine 03/15/2022 from Last 3 Months or Most Recently Relevant to Health Maintenance Results * Annual BMP Blood Test (03/01/2024) Annual BMP Blood Test Abstracted [facility] Provider [facility] MAINTENANCE Final Result * Hemoglobin A1c (08/09/2022) Pathologist [facility] Hemoglobin A1C 0.0 % Comment:No Interpretation, A bstracted Blood Venous blood specimen / Unknown Result [facility] Provider LAB BLOOD ORDERABLES Almaz l Result * Lipid panel (03/15/2022) Pathologist [facility] LDL/HDL Ratio 0 Comment:No Interpretation, A bstracted Triglycerides 0 mg/dL Comment:No Interpretation, A bstracted Cholesterol 0 mg/dL Comment:No Interpretation, A bstracted HDL 0 mg/dL Comment:No Interpretation, A bstracted LDL Cholesterol 0 mg/dL Comment:No Interpretation, A bstracted Blood Venous blood specimen / Unknown [facility] Provider LAB BLOOD ORDERABLES Almaz l Result from Last 3 Months or Most Recently Relevant to Health Maintenance Insurance [address] [place] [id number] [facility] [place] [address] MEDICAID - [place] Care Teams Inside Upholsterer Relationship Specialty Start Date End Date Zheng Boo MD [address] [phone] PCP - General 03/29/23
--- OUTSIDE RECORDS SUMMARY | 2025-05-21 12:59 | XMS_ITS | Encounter Summary ---
Author Organization [facility], Address [address] [place] [address] Phone Care Team Providers Care Vocational Placement Specialist Name Role Phone Violeta Boo MD Primary Care Provide r Encounter Details Date Type Department Care Team (Late Contact Info) Description 03/15/2022 Documentation Only [facility] [address] [place] [address] Shailesh Vallejo MD [address] [place] [address] [place] [address] Social History Tobacco Use Types [...] [facility] [address] [place] [address] Shailesh Vallejo MD [address] [place] [address] [place] [address] documented as of this encounter Visit Diagnoses Not on filedocumented in this encounter Care Teams Vocational Placement Specialist Relationship Specialty Start Date End Date Violeta Boo MD [address] [place] [phone] PCP - General Internal Medicine 03/21/23 documented as of this encounter
--- OUTSIDE RECORDS SUMMARY | 2025-05-21 12:59 | XMS_ITS ---
Author Name Fady INSTRUMENTATION ENGINEER,CERAMIC PAINTER,FN P,CONFERENCE INTERPRETER, Maddi Address [address] [place] [address] Phone [phone] [facility] Care Team Providers Care Diagnostic Technologist Name Role Phone ShresthaMaddi Unavailable [phone] Unavailable Unavailable [phone] Unavailable Unavailable Unavailable Unavailable Unavailable Unavailable Cristo Garcia Unavailable [phone] Unavailable Unavailable [phone] Gideon Frost Unavailable [phone] Unavailable Unavailable Unavailable Unavailable Unavailable Unavailable Unavailable Unavailable [phone] WALTER ROBERT Unavailable [phone] Nirav Anthony Unavailable [phone] Unavailable Unavailable [phone] Unavailable Unavailable [phone] Reason for Referral Not Available Allergies, adverse reactions, alerts Allergen Type Reaction Severity Status Onset Date Aspirin Allergy to substance (disorder) Unknown Active N/A Iodinated Contrast Media Allergy to subs tance (disorder) Unknown Active N/A History of medication use Medication Class Instructions Start Date End Date Cetirizine 10 mg Tab TAKE 1 TABLET BY MO UTH ONCE 2 HOURS BEFORE EXAM WITH METHYLPREDNISOLONE [...] AREA(S) EVERY MORNING 2022-12-16 No Data Available [id number]-[id number] 3 TO 4 DROPS INTO [...] a day 2024-05-11 No Data Availab le AmideBio Verio Flex System w/Device Kit USE DIRECTED TO TEST BLOOD SUGAR TWICE DAILY 2024-05-11 No Data Available Ezetimibe 10 mg Tab TAKE 1 TABLET BY [place] EVERY MORNING 2024-04-27 No Data Available Clotrimazole [...] List Problem Status Onset Date Resolved Date Synopsis Hemorrhoid Active 2023-03-15 5 N/A no constipation - likely related to weight 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 Chronic diarrhea Active 2023-03-15 5 N/A Almost every dayTrial of cutting out dairy.Pharm doc consulted re meds - there appear to be no obvious culprits among meds. At risk for cancerAt risk fo r colon cancer Active 8 N/A Pt reports her mother of melanoma, various siblings [...] already managing the situation.Will F/U.Will reassure pt. Frequent falls Active 2023-03-15 5 N/A Trips over herself or feet are not strong enough.Falls almost every day, seven times these past six days.Sending a shower chair Type 2 diabetes mellitus wit h stage 3b chronic kidney disease, hyperlipidemia, diabetic peripheral angiopathy without gangrene Active 2023-03-15 5 N/A StableAtorvastatin, Ezetimibe Record does mention DM2 w 3b CKDA1C 5.19 February 2023 m- will look for more recentGFR 35, Creatinine 1.46, Marchatient is unaware, believes her kidneys are fine.Will educate further at FUavoid nephrotoxic medicationsPrevious:Insist s her sugars are good; however, also reports frequent urination. Unclear what became of endo referral. Prescribing zzempic, for DM and for weight loss.Will FU Tuesday.05/14/2024ontinues to c/o frequent urination. HAS NOT PICKED UP OZEMPIC NOR HER GLUCOMETER. What's more, hardly remembers details of our conversation of three days ago. Her LEAD PROJECT ENGINEER is supposed to go tonight or tomorrow [...] July.Refilled w instructions to pharmacy.Will FU after mid-july.2.4.25report s using ozempic since 04/2024followed by PCP q [...] months with possible titrations. Member agreeable with plan. Rheumatoid arthritis without rheumatoid factor, multiple sitesSacroiliitis, not elsewhere classifiedImmunodeficiency due to conditions classified elsewhere Active 2023-03-16 0 N/A StableImmunodeficiency due to: RAweakened immune system, encourage hand washing, avoid large crowds, stay up to date on vaccines (annual flu), monitor for and report early any s/s of infection Schizoaffective disorder, depressive type Active 2023-03-16 0 N/A StableReports seeing a psychologist and psychiatrist monthly Denies SI/HIAppears to be high functioning.Olanzapine, SertralineCoping mechanisms, monitor for AH/VH, continue with psychiatrist and continue taking medications as prescribed. Chronic obstructive pulmonar y disease, unspecified Active 2023-03-16 1 N/A Stablealbuterol sulfateMonitor for s/sx of respiratory distress and continue with PCP. Chronic bilateral low back p ain with bilateral sciatica;Bulging lumbar disc Active 2023-03-15 5 N/A Falls frequently.Ed re caution, using DMEs.Will FU re pain and walking. Sending PT.UPDATE 08/10/2023Has not gotten physical therapy. Will send again. Decreased hearing of left ear,associated w tinnitus Active 2023-03-15 5 N/A Stablehx of otitis externaSend to ENTCN to assist Unspecified atherosclerosis of asa[place] arteries of extremities, bilateral legs Active 2023-03-16 1 N/A StablestatinMD portal notes, I70.203 - Unspecified atherosclerosis of asa'[place] arteries of extremities, bilateral legs Hemorrhoids Active 2023-07-16 7 N/A StableDenies recent painContinue monitoring with PCP.Previous:Pain that radiates to vaginaHas seen PCPhas referral to GI but is going to cancelEd not to cancel, get transport Sensory neuropathy Active 7 N/A StableGabapentinFall risk precautions and continue with PCP. 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 Morbid obesity Active 2025-02-0 9 N/A BMI 42.60continue with GLP1 and f/u with PCP Chronic back painLumbar spin al stenosis Somatoform pain disorder Active 2023-10-0 8 N/A Orthopedic Surgery - [place] 250-Maury Godoy, DPM02/20/25Does not have PT in place after back surgery? Dr. Pascual (PCP) has ordered walker [facility] [id number] [place], [place] [phone] referral to OT or PT for Rolator walker.back surgery (nerve ablation) 02/01/25- Dr. Pena was told to f/u with surgeon PRN reports last fall one week ago right sided back pain 5/10h/o L2, L3, L4, L5 nerve ablationFINDINGS: AP and lateral fluoroscopic spot films of the lumbar spine demonstrate probes in the L3, L4, and L5 vertebral bodies. continue to f/u with PCP regarding DME ordered, PT referral pending through PCP as well. Will help with PT order if PCP unable to place Encounters Encounters Type Facility Date of Service Diagnosis/Co mplaint New patient,40-59min; chronic exacerbation, 2 stable chronic or 1 acute illness add add modifier 95 for video (do not use for phone, instead use 22816-21) [facility] ([place]) 04/[place]/2023 Noninfective gastroenteritis and colitis, unspecifiedRepeated fallsUnspecified [...] sitesSacroiliitis, not elsewhere classifiedAthscl heart disease of asa'carsarmi[place] cor art w unsp ang pctrsPeripheral vascular disease, unspecified New patient,40-59min; chronic exacerbation, 2 stable chronic or 1 acute illness add add modifier 95 for video (do not use for phone, instead use 46449-41) [facility] [place] New patient,40-59min; chronic exacerbation, 2 stable chronic or 1 acute illness add add modifier 95 for video (do not use for phone, instead use 54848-60) [facility] New patient,40-59min; chronic exacerbation, 2 stable chronic or 1 acute illness add add modifier 95 for video (do not use for phone, instead use 34705-37) [facility] New patient,40-59min; chronic exacerbation, 2 stable chronic or 1 acute illness add add modifier 95 for video (do not use for phone, instead use 24940-77) [facility] New patient,40-59min; chronic exacerbation, 2 stable chronic or 1 acute illness add add modifier 95 for video (do not use for phone, instead use 96620-02) [facility] New patient,40-59min; chronic exacerbation, 2 stable chronic or 1 acute illness add add modifier 95 for video (do not use for phone, instead use 61832-66) [facility] New patient,40-59min; chronic exacerbation, 2 stable chronic or 1 acute illness add add modifier 95 for video (do not use for phone, instead use 43406-82) [facility] New patient,40-59min; chronic exacerbation, 2 stable chronic or 1 acute illness add add modifier 95 for video (do not use for phone, instead use 98508-36) [facility]2023 Unlisted special service; to be used for medical record reviews and reporting CPTII codes (1111F, etc) [facility] 07/[place]2023 Other specified counseling Unlisted special service; to be used for medical record reviews and reporting CPTII codes (1111F, etc) [facility] [place] Unlisted special service; to be used for medical record reviews and reporting CPTII codes (1111F, etc) [facility] [place] 07/01/2023 No Data Available [facility] [place] 08/10/2023 Body mass index (BMI) 45.0-4 9.9, adultPrediabetesMorbid (severe) obesity due to excess caloriesTinea unguiumLumbago with sciatica, left sideLumbago with sciatica, right sideOther chronic painOther intervertebral disc degeneration, lumbar region No Data Available [facility] [place] 08/10/2023 No Data Available [facility] [place] 08/10/2023 No Data Available [facility] [place] 10/21/2023 Dorsalgia, unspecifiedOther chronic painMorbid (severe) obesity due to excess caloriesOther specified personal risk factors, not elsewhere classified No Data Available [facility] [place] 10/21/2023 Estab. patient 30-39min; chronic exacerbation, 2 stable chronic or 1 acute illness add add modifier 95 for video, (do not use for phone, instead use 28653-03) [facility] [place] 05/11/2024 Type 2 diabetes mellitus wit h diabetic chronic kidney diseaseChronic kidney disease, stage 3bRepeated fallsUnspecified hearing loss, left earTinnitus, left earUnspecified hemorrhoidsOther specified postprocedural statesLumbago with sciatica, left sideLumbago with sciatica, right sideOther chronic painOther intervertebral disc degeneration, lumbar regionIdiopathic chronic gout, unspecified site, without tophus (tophi)Polyosteoarthritis, unspecifiedSchizophrenia, unspecifiedAthscl heart disease of [place] cor art w unsp ang pctrsType 2 diabetes w diabetic peripheral angiopath w/o gangreneUnsp athscl asa'carsarmi[place] arteries of extremities, bilateral legsChronic obstructive pulmonary [...] (do not use for phone, instead use 88144-41) [facility] Estab. patient 30-39min; chronic exacerbation, 2 stable chronic or 1 acute illness add add modifier 95 for video, (do not use for phone, instead use 94161-85) [facility] Estab. patient 30-39min; chronic exacerbation, 2 stable chronic or 1 acute illness add add modifier 95 for video, (do not use for phone, instead use 42168-35) [facility] Estab. patient 30-39min; chronic exacerbation, 2 stable chronic or 1 acute illness add add modifier 95 for video, (do not use for phone, instead use 49747-66) [facility] Estab. patient 30-39min; chronic exacerbation, 2 stable chronic or 1 acute illness add add modifier 95 for video, (do not use for phone, instead use 47752-32) [facility] Estab. patient 30-39min; chronic exacerbation, 2 stable chronic or 1 acute illness add add modifier 95 for video, (do not use for phone, instead use 08683-81) [facility] No Data Available [facility] [place] 05[place]14/2024 Type 2 diabetes mellitus wit h diabetic chronic kidney diseaseChronic kidney disease, stage 3b No Data Available [facility] [place] 05[place]14/2024 No Data Available [facility] [place] 06[place]2024 Type 2 diabetes mellitus wit h diabetic chronic kidney diseaseChronic kidney disease, stage 3b No Data Available [facility] [place] 06[place]/2024 Unlisted special service; to be used for medical record reviews and reporting CPTII codes (1111F, etc) [facility] [place] 09/04/2024 Other specified counseling Unlisted special service; to be used for medical record reviews and reporting CPTII codes (1111F, etc) [facility] ([place]) 09/04/2024 Unlisted special service; to be used for medical record reviews and reporting CPTII codes (1111F, etc) [facility] [place] 09/04/2024 Estab. patient 10-29min; 1 minor problem; add add modifier 95 for video, modifier 93 for phone [facility] [place] 12/18/2024 Type 2 diabetes mellitus wit h diabetic chronic kidney diseaseChronic kidney disease, stage 3bMorbid (severe) obesity due to excess caloriesBody mass index (bmi) 50-59.9 , adult Estab. patient 10-29min; 1 minor problem; add add modifier 95 for video, modifier 93 for phone [facility] [place] 12/18/2024 Estab. patient 10-29min; 1 minor problem; add add modifier 95 for video, modifier 93 for phone [facility] [place] 12/18/2024 Estab. patient 20-29min; 1 stable chronic or 2 minor; add add modifier 95 for video, modifier 93 for phone [facility] [place] 02/18/2025 Noninfective gastroenteritis and colitis, unspecifiedRepeated fallsUnspecified [...] to conditions classified elsewhereAthscl heart disease of [place] cor art w unsp ang pctrsPeripheral vascular disease, unspecifiedUnsp athscl asa'carsarmi[place] arteries of extremities, bilateral legsChronic obstructive pulmonary [...] 95 for video, modifier 93 for phone [facility] Estab. patient 20-29min; 1 stable chronic or 2 minor; add add modifier 95 for video, modifier 93 for phone [facility] [place] 02/18/2025 Estab. patient 20-29min; 1 stable chronic or 2 minor; add add modifier 95 for video, modifier 93 for phone [facility] [place] 02/18/2025 Estab. patient 20-29min; 1 stable chronic or 2 minor; add add modifier 95 for video, modifier 93 for phone [facility] [place] 02/18/2025 Estab. patient 20-29min; 1 stable chronic or 2 minor; add add modifier 95 for video, modifier 93 for phone [facility] [place] 02/18/2025 Estab. patient 20-29min; 1 stable chronic or 2 minor; add add modifier 95 for video, modifier 93 for phone [facility] [place] 02[place]18/2025 Estab. patient 20-29min; 1 stable chronic or 2 minor; add add modifier 95 for video, modifier 93 for phone [facility] [place] 02/18/2025 Estab. patient 10-29min; 1 minor problem; add add modifier 95 for video, modifier 93 for phone [facility] [place] 02/20/2025 Morbid (severe) obesity due to excess caloriesDorsalgia, unspecifiedOther chronic painSpinal stenosis, lumbar region without neurogenic claudicationPain disorder exclusively related to psychological factors Estab. patient 10-29min; 1 minor problem; add add modifier 95 for video, modifier 93 for phone [facility] [place] 02/20/2025 Vital Signs Date of Collection Vitals 2023-04-07 [...] kgBody Mass Index (BMI) - 43.94 kg/m2 2025-02-20 11:06:59 Height - 165.1 cmWei ght - 116.12 kgBody Mass Index (BMI) - 42.6 kg/m2Pain Scale - 5.0 {score} Social History Social History Social History Observation Description Effec tive Time Current Smoking Status Never smoker 8 Sex Female Gender identity Woman History of Procedures Procedures Service Procedure code Service date Servicing provider Phone# New patient,40-59min; chronic exacerbation, 2 stable chronic or 1 acute illness add add modifier 95 for video (do not use for phone, instead use 66955-14) 48288 2023-04-07 No Data Available No Data Availa [...] discussed and documented in the medical record beneficiary/patient did not wish to or was [...] reviews and reporting CPTII codes (1111F, etc) 45121 2023-07-01 No Data Available No Data Availa ble SBP < 130 (3074F) 3074F 2023-07-01 No Data Available No Data Available DBP <80 (3078F) 3078F 2023-07-01 No Data Available No Data Available No Data Available 36034 2023-08-10 No Data Available No Data Available Medication List Documented (1159F) 1159F 2023-08-10 No Data Available No Data Lena ilable BMI obtained (3008F) 3008F 2023-08-10 No Data Availab le No Data Available No Data Available [id number] 2023-10-21 No Data Available No Data Available Medication List Documented (1159F) 1159F 2023-10-21 No Data Available No Data Lena ilable Estab. patient 30-39min; chronic exacerbation, 2 stable chronic or 1 acute illness add add modifier 95 for video, (do not use for phone, instead use 82874-85) 31159 2024-05-11 No Data Available No Data Availa [...] Available No Data Available No Data Available 05876 2024-05-14 No Data Available No Data Available Medication List Documented (1159F) 1159F 2024-05-14 No Data Available No Data Lena ilable No Data Available [id number] 2024-06-20 No Data Available No Data Available Medication List Documented (1159F) 1159F 2024-06-20 No Data Available No Data Lena ilable Unlisted special service; to be used for medical record reviews and reporting CPTII codes (1111F, etc) 78961 2024-09-04 No Data Available No Data Availa ble SBP >= 140 3077F 2024-09-04 No Data Available No Data Available DBP >=90 3080F 2024-09-04 No Data Available No Data Available Estab. patient 10-29min; 1 minor problem; add add modifier 95 for video, modifier 93 for phone [id number] 2024-12-18 No Data Available No Data Availa ble Medication List Documented (1159F) 1159F 2024-12-18 No Data Available No Data Lena ilable BMI obtained (3008F) 3008F 2024-12-18 No Data Availab le No Data Available Estab. patient 20-29min; 1 stable chronic or 2 minor; add add modifier 95 for video, modifier 93 for phone 17535 2025-02-18 No Data Available No Data Availa [...] ble Advance care planning discussed and documented advance care plan or surrogate decision-maker was documented in the medical record. (1123F) 1123F 2025-02-18 No Data Available No Data Availa ble Pain Assessment - Pain Documented on a Pain Scale (1125F) 1125F 2025-02-18 No Data Available No Data Lena ilable BMI obtained (3008F) 3008F 2025-02-18 No Data Availab le No Data Available Estab. patient 10-29min; 1 minor problem; add add modifier 95 for video, modifier 93 for phone [id number] 2025-02-20 No Data Available No Data Availa ble Pain Assessment - Pain Documented on a Pain Scale (1125F) 1125F 2025-02-20 No Data Available No Data Lena ilable Functional Status Functional Category Effective Dates ADL: [...] rheumatoid factor, multiple sitesAtherosclerotic heart disease of [place]a'[place] coronary artery with unspecified angina pectoris;Peripheral vascular [...] discChronic gouty arthritis;Generalized osteoarthritisSchizophreniaAtherosclerotic heart disease of [place] coronary artery with unspecified angina pectoris;Peripheral vascular disease, unspecifiedUnspecified atherosclerosis of [place] arteries of extremities, bilateral legsChronic obstructive pulmonary [...] to conditions classified elsewhereAtherosclerotic heart disease of [place] coronary artery with unspecified angina pectoris;Peripheral vascular disease, unspecifiedUnspecified atherosclerosis of [place] arteries of extremities, bilateral legsChronic obstructive pulmonary disease, unspecifiedHemorrhoidsChronic back painLumbar spinal stenosis Somatoform pain disorderAt risk for cancerAt risk for colon cancerSensory neuropathyMixed stress and urge urinary incontinenceHistory of fallImpaired gait and mobilityMorbid obesity 2025-02-20 11:06:59 Morbid obesityChroni c back painLumbar spinal stenosis Somatoform pain disorder Plan of Care Date of Service Plans 2023-04-07 13:01:17 Medication Review by prescribing provider or pharmacist documented (1160F)Medication List Documented (1159F)Functional Status Assessed (1170F)Advance Care Directive Advance care planning discussion documented in the medical record (1158F)BMI obtained (3008F)sbdbTelevideo new patient,40-59min; chronic exacerbation, 2 stable chronic or 1 acute illness add modifier 95Advance care planning discussed and documented advance care plan or surrogate decision-maker was documented in the medical record. (1123F)Advance care planning discussed and documented in the medical record beneficiary/patient did not wish to or was [...] for weight clinic - also endocr for [facility] [place], [place] MASending to podiatry per pt request.Also needs [...] area that had available staff.Pt to call [facility] and get name of PT providers in her area that are covered.Will investigate weight loss clinics.Pt to look for back exercises on YouTube, activity as tolerated.Will FU.BMI 49.25send to weight clinic but not [place]referral for weight clinic - also endocr for [facility] [place], [place]10[place]2023Have not been able to find clinic that is covered by [facility] in er area. Pt to call [facility] and find list of names [...] modifier 95Advance care planning discussed and documented advance care plan or surrogate decision-maker was [...] portal notes, I70.203 - Unspecified atherosclerosis of [place] arteries of extremities, bilateral legs continues to take albuterol sulfatePlease call CB ifIncreased SOB,or if patient falls.Pain that radiates to vaginaHas seen PCPhas referral to GI but is going to cancelEd not to cancel, get transportBMI 52.08send to weight clinic but not [place]23referral for weight clinic [place] [facility] [place] not been able to find clinic that is covered by [facility] in er area. Pt to call [facility] and find list of names [...] area that had available staff.Pt to call [facility] and get name of PT [...] modifier 95)Continue to see PCP. [facility] [...] our conversation of three days ago. Her LEAD PROJECT ENGINEER is supposed to go tonight or tomorrow [...] modifier 95)Continue to see PCP. Follow-up with [facility] as needed for any acute or disease [...] our conversation of three days ago. Her LEAD PROJECT ENGINEER is supposed to go tonight or tomorrow [...] w instructions to pharmacy.Will FU after mid-july. 2024-12-18 08:09:04 Estab. patient 10-29 min; 1 minor problem; add add modifier 95 for video, modifier 93 for phoneContinue to see PCP. Follow-up with [facility] as needed for any acute or disease [...] our conversation of three days ago. Her LEAD PROJECT ENGINEER is supposed to go tonight or tomorrow [...] July.Refilled w instructions to pharmacy.Will FU after ..03.08reports using ozempic since 04/2024followed by PCP q [...] for weight clinic - [place] [facility] [place]Have not been able to find clinic that is covered by [facility] in er area. Pt to call [facility] and find list of names of clinics.Will FU.12/18/24will f/u with PCP re refilling ozempic and contiue to monitor labs q 3 months 2025-02-18 08:13:53 Functional Status As sessed (1170F)Advance Care Directive Advance care planning discussion documented in the medical record (1158F)Advance care planning discussed and documented advance care plan or surrogate decision-maker was documented in the medical record. (1123F)Estab. patient 20-29min; 1 stable chronic or 2 minor; add add modifier 95 for video, modifier 93 for phoneMedication List Documented (1159F)Medication Review by prescribing provider or pharmacist documented (1160F)Pain Assessment - Pain Documented on a Pain Scale (1125F)BMI obtained (3008F)Continue to see PCP. [facility] any acute or disease education needs that may arise.PSYCH CONTINGENCY PLANLast updated: 02/18/2025Schizoaffective DisorderMember to call for the following symptoms: Anxiety/ Hallucinations/ Mistrust / inability to relax/ Restlessness/ Worsening paranoia or delusions Planned intervention: Contact support person: son / Transfer member to [address] [place] [address]/ Quetiapine 50mg PO q12h PRN agitation/ Remind [...] weight lossWill be sending to endo/weight loss clinicStablestatinMD portal notes, I70.203 - Unspecified atherosclerosis of asa'[place] arteries of extremities, bilateral legs Stablealbuterol sulfateMonitor for s/sx of respiratory distress and continue with PCP.StableDenies recent painContinue monitoring with PCP.Previous:Pain that radiates to vaginaHas seen PCPhas referral to GI but is going to cancelEd not to cancel, get transportStableOTC medicationsROM exercises, heat therapy and continue monitoring with PCP. Previous: 4/9/25back surgery 02/01/25- Dr. Jean Sousa f/u with [...] and lifestyle interventions and continue with PCP. 2025-02-20 11:06:59 Estab. patient 10-29 min; 1 minor problem; add add modifier 95 for video, modifier 93 for phoneContinue to see PCP. Follow-up with [facility] as needed for any acute or disease education needs that may arise 06/06.BMI 42.60continue with GLP1 and f/u [facility]CPOr[facility]opedic [facility] 250-Maury Godoy DPM/08/08Does not have PT in place after back surgery? Dr. Pascual (PCP) has ordered walker [facility] [address] [place], [place] [phone] referral to OT or PT for Rolator walker.back surgery (nerve ablation) 02/01/25- Dr. Pena was told to f/u with surgeon PRMagaly reports last fall one week ago right sided back pain 5/10h/o L2, L3, L4, L5 nerve ablationFINDINGS: AP and lateral fluoroscopic spot films of the lumbar spine demonstrate probes in the L3, L4, and L5 vertebral bodies. continue to f/u with PCP regarding DME ordered, PT referral pending through PCP as well. Will help with PT order if PCP unable to place Goals Date Goal 2025-02-18 Remember to adhere d ietary and lifestyle interventions as discussed. 2025-02-18 Continue taking medi cations as prescribed and f/u care and monitoring with PCP every 3-6 months. 2025-02-18 Contact us if develo ping falls, HHS, DKA, cardiac s/sx, SOB, or health-related concerns. Health Concerns Date Concern 2025-02-20 Visit completed via audio by telephone. Patient/Guardian agreed to visit via telehealth.Time spent in visit: 2025-02-20 Most recent hospital stay(s) or ER visit(s) and precipitating factors: none in the last month 2025-02-20 pcp f/u 03/26/25 2025-02-20 Gave information reg matt TEJADA-Prepare a list of product to buy: - 2025-02-20 has [address]
== END 2025-05-21 12:08 | disposition home or self-care (01) ==
LOC: HO.XRAY 12:07
PROVIDERS: PCP Internal Medicine; Visit Provider Internal Medicine
DX: M79.675 Pain in left toe(s) (principal); M25.512 Pain in left shoulder; M25.511 Pain in right shoulder; M25.542 Pain in joints of left hand; M25.541 Pain in joints of right hand
CPT/HCPCS: 73030; 73130; 73630

== ENCOUNTER → 2025-05-21 12:16 | Outpatient (BNV) | payer OTHER, SELFPAY | PROVIDERS: PCP Internal Medicine; Visit Provider Radiology Diagnostic Radiology | DX: M25.511 Pain in right shoulder (principal); M25.512 Pain in left shoulder; M79.641 Pain in right hand; M79.642 Pain in left hand; M76.62 Achilles tendinitis, left leg | CPT/HCPCS: 73030; 73630 ==

== ENCOUNTER 2025-05-23 09:47 | Outpatient (REF) | payer OTHER, SELFPAY ==
[2025-05-23 11:33] LABS: MANUAL DIFF FLAG NO
[2025-05-23 12:39] LABS: Hematocrit 43.3 % (37.0-47.0); Hemoglobin 13.7 g/dl (12.0-16.0); Imm Gran Abs Auto 0.03 X10*3/uL (0.00-0.03); Imm Gran Pct Auto 0.4 % (0.0-0.4); Lymphocytes Absolute Auto 1.7 X10*3/uL (1.2-4.9); Mean Corpuscular HGB Conc 31.6 g/dl (31.0-35.0); Mean Corpuscular Hemoglobin 29.9 pg (27.0-33.0); Mean Corpuscular Volume 94.5 fL (80.0-98.0); NRBC Abs Auto 0.000 X10*3/uL (0.0-0.012); NRBC Pct Auto 0.0 /100WBC (0.0-0.2); Platelet Count 270 X10*3/uL (160-400); Red Blood Count 4.58 X10*6/uL (4.20-5.50); White Blood Count 8.1 X10*3/uL (4.8-10.8)
[2025-05-23 12:58] LABS: Alanine Aminotransferase 18 U/L (0-31); Albumin Level 4.1 g/dL (3.5-5.0); Alkaline Phosphatase 166 U/L (39-117); Anion Gap 11 (12-20); Aspartate Amino Transferase 23 U/L (5-31); Blood Urea Nitrogen 31 mg/dL (9-16); Calcium 9.2 mg/dL (8.4-10.2); Carbon Dioxide 30 mmol/L (22-29); Chloride 106 mmol/L (96-108); Estimated Glomerular Filt Rate 35; Potassium 4.0 mmol/L (3.3-5.1); Sodium 143 mmol/L (135-145); Total Protein 6.8 g/dL (6.5-8.0); Uric Acid 5.7 mg/dL (2.4-5.7)
== END 2025-05-23 09:48 | disposition home or self-care (01) ==
LOC: HO.LAB 09:47
PROVIDERS: Absent Provider Internal Medicine; PCP Internal Medicine; Visit Provider Student in an Organized Health Care Education/Training Program
DX: M79.7 Fibromyalgia (principal); M85.80 Other specified disorders of bone density and structure, unspecified site; M1A.0790 Idiopathic chronic gout, unspecified ankle and foot, without tophus (tophi); E55.9 Vitamin D deficiency, unspecified; L40.50 Arthropathic psoriasis, unspecified; M19.011 Primary osteoarthritis, right shoulder; M19.012 Primary osteoarthritis, left shoulder
CPT/HCPCS: 36415; 80053; 82306; 84550; 85025; 85652; 86140; 99212

== ENCOUNTER 2025-05-23 09:47 | Outpatient (AMB) | payer OTHER, SELFPAY ==
--- NOTE | 2025-05-23 09:49 | MHC.OFFVIS ---
Vital Signs 05/23/25 10:01 Height 5 ft 3 in Weight 269 lb 2.951 oz BMI 47.7 BP 134/70 Blood Pressure Location Rt radial Position Sitting Pulse 78 Pulse Source Pulse Oximeter Pulse Oximetry (%) 94 Oxygen Delivery Method Room Air Intake Visit Reasons: PsA Intake Note: Patient presents for PsA follow up. Patient stated she fell on the 27th and urine is dark yellow. Configuration Management Specialist Required: Yes Configuration Management Specialist Language: Income Tax Expert Name: Jose Roberto [id number] Information Interpreted: non-clinical & clinical Allergies peanut (PEANUT) Allergy (Severe, Verified 05/23/25 09:56) ITCHY, SWELLING seafood Allergy (Severe, Verified 05/23/25 09:56) Rash tomato (TOMATO) Allergy (Severe, Verified 05/23/25 09:56) ITCHY, SWELLING aspirin (ASA) Allergy (Intermediate, Verified 05/23/25 09:56) ITCHY,ANXIOUS, itching, rash Iodinated Contrast Media (IV CONTRAST) Allergy (Intermediate, Verified 05/23/25 09:56) HIVES plantain (PLANTAIN) Allergy (Intermediate, Verified 05/23/25 09:56) ITCHY/SWELLING Medication List - Last Reconciled 05/23/25 by Solange Ojeda MD acetaminophen 1,000 mg PO Q8H PRN albuterol sulfate 90 mcg/actuation 2 puffs inhalation Q4-6H PRN 30 days allopurinol 300 mg PO QAM atorvastatin 80 mg PO DAILY calcium carbonate-vitamin D3 600 mg-10 mcg (400 unit) 1 tab PO BID clotrimazole 1% appl topical DAILY cyanocobalamin (vitamin B-12) 1,000 mcg sublingual DAILY cyclobenzaprine 5 mg PO TID PRN 30 days diclofenac sodium 1% 4 grams topical QID diphenhydramine HCl 2% (Benadryl) 1 appl topical BID doxepin 25 mg PO BEDTIME estradiol 0.01%(0.1mg/gram) grams vaginal ezetimibe 10 mg PO QAM ferrous sulfate 325 mg PO QAM fexofenadine 180 mg PO QAM fluticasone propion-salmeterol 250-50 mcg/dose 1 ea PO BID fluticasone propionate 50 mcg/actuation 2 sprays intranasal DAILY 30 days gabapentin 600 mg (2 x 300 mg) PO TID 90 days hydrochlorothiazide 12.5 mg PO QAM inhalational spacing device As directed lancets As directed latanoprost 0.005% 1 drp ophthalmic (eye) BEDTIME losartan 100 mg PO QAM melatonin 1 mg PO BEDTIME PRN metoprolol succinate ER 50 mg PO DAILY montelukast 10 mg PO QPM nystatin 1 appl topical BID olanzapine 20 mg PO BEDTIME olanzapine 15 mg PO BEDTIME Otezla (apremilast) 30 mg PO BID NS oxycodone 5 mg PO TID PRN 4 days pantoprazole 40 mg PO DAILY semaglutide (Ozempic) 0.25 mg subcut QWEEK sertraline 100 mg PO DAILY sertraline 50 mg PO QAM [thumb spica As directed] HPI Comments Details: Patient is a 74-year-old morbidly obese female with hyperlipidemia, hypertension complicated by CAD, COPD with restrictive lung disease, osteoporosis, psoriatic arthritis, non crystal proven non tophaceous gout, fibromyalgia and polyarticular osteoarthritis here today for follow up Interval History: Patient last seen 01/17/25 with me. - felt more or less okay - Complained of whole-body pain including the base of her thumbs asif when opening jars, bilateral knee and shoulders - No gout flares - Stoppe colchicine Today, - Fell 05/10/25 with prodromal sx of dizziness with subsequent fall and LOC - Had XRs which did not reveal any fracture - Dizziness has not been evaluated - No new rashes Rheumatologic History: PsA Diagnosed 09/2022 as seronegative RA HCQ started 09/2022 Methotrexate added 11/2022 effective but DC 02/2023 d.t renal insufficiency HCQ DC'd 06/2023 Rash suspicious for psoriasis noted 04/2024. Dx changed PsA Otezla effective Initial history: This is a 72-year-old female with a pretty extensive past medical history including CAD, hypertension, prediabetes, generalized osteoarthritis who presents for evaluation of diffuse pain. Patient has had multiple joint pains for many years. She has had multiple knee intra-articular steroid injections with short-lived relief. She also had had multiple injections in her back by pain management. Patient also complains of some occasional swelling and stiffness of her hands. Two years ago she had rashes on her neck and upper back. She saw Dermatology an there were plans for a skin biopsy but does lesions were never biopsied. Those lesions are hypopigmented now. MRI of her right wrist 09/2022 showed evidence of radioscaphoid synovitis. She was initially diagnosed with seronegative rheumatoid arthritis however she had a rash suspicious for psoriasis noted in 04/2024 and the diagnosis was changed to psoriatic arthritis Non crystal proven gout Ddx 2019 Initial uric acid level in 2019 9.8 Allopurinol Fibromyalgia OA Osteopenia with low FRAX DEXA 06/2022. Osteopenia involving her left femur neck -1.2 and AP spine -1.4 Current Rheumatology Medication(s): Otezla 30 mg b.i.d. Allopurinol 300 mg daily [facility] Medical History (Updated 05/23/25 @ 13:50 by Solange Ojeda MD) Myocardial infarct Pain in left shoulder Screening for viral disease COPD (chronic obstructive pulmonary disease) Restrictive lung disease Allergic rhinitis ZOEY (obstructive sleep apnea) Edema PVD (peripheral vascular disease) On beta prashant at home Osteopenia Gout Osteoarthritis Rheumatoid arthritis Anemia Panic attacks Anxiety Schizophrenia Pre-diabetes CKD (chronic kidney disease), stage III GERD (gastroesophageal reflux disease) Fatty liver Myocardial infarction CAD (coronary artery disease) Angina pectoris HTN (hypertension) Morbid obesity ZOEY treated with BiPAP COPD (chronic obstructive pulmonary disease) Allergic rhinitis Surgical History History of colonoscopy (~2021) History of lumpectomy of right breast (06/21/22) History of bladder suspension procedure History of esophagogastroduodenoscopy (EGD) Hx of colonoscopy History of hysterectomy History of tubal ligation History of lumpectomy of right breast Family History Mother Leukemia Brother Colon cancer Brother Leukemia Sister Breast cancer Sister Vaginal cancer Sister Breast cancer Sister Breast cancer Daughter Thyroid disease Social History Alcohol intake: never Patient Tobacco Use Status: Never used Tobacco Second Hand Smoke Exposure: No Female Reproductive History Menstrual Age of Menarche: 13 Review of Systems Const Details: Review of Systems Constitutional: Denies fever, chills, weight loss ENT: Denies vision changes, eye pain or eye redness, dental caries, dry mouth GI: Denies nausea, vomiting, diarrhea, abdominal pain, change in BM Pulm: Denies SOB, BRYAN, hemoptysis, wheezing Cards: Denies chest pain, palpitations Skin: Denies Raynaud's, rash, nail changes, photosensitivity, PHYSICIAN SUPPORT COORDINATOR: Denies headaches, weakness, paresthesias, recurrent falls MSK: as per HPI All other systems reviewed and are unremarkable except noted above Physical Exam Vital Signs: Last Vital Signs Pulse 78 05/23/25 10:01 BP 134/70 05/23/25 10:01 Pulse Ox 94 05/23/25 10:01 Oxygen Delivery Method Room Air 05/23/25 10:01 BMI result Body Mass Index 47.7 Vital signs reviewed Physical Examination CONSTITUITIONAL Patient alert and cooperative. Well appearing and in no apparent painful distress. Patient morbidly obese. Examined in the chair. HEENT Conjunctiva and sclera clear. ?Pupils equal round and reactive to light. ?No lymphadenopathy. ? CHEST/RESPIRATORY SYSTEM Normal respiratory effort and able to speak in complete sentences. ?Clear to auscultation bilaterally. ?No crackles, rales, rhonchi, wheezes heard. CARDIAC SYSTEM Regular rate and rhythm. ?S1 and S2 heard no murmurs. ?Radial pulses intact bilaterally MSK Hands: ?Good category development analyst strength bilaterally. No deformities noted. ?No synovitis noted to the MCPs, PIPs or DIPs. ?No tenderness to palpation of these joints. Had tenderness to palpation of the dorsum of the hand consistent with fibromyalgia type pain Wrists: ?Full range of motion at the wrists without pain. ?No tenderness to palpation or synovitis noted to the wrists. Elbows: Full range of motion without pain. No tenderness, weakness, swelling, increased warmth or erythema. Shoulders: Decreased active range of motion secondary to pain but able to have full range of motion on passive movement. Tenderness to palpation of bilateral AC joint. Positive Mckeon Wale impingement test bilaterally Hips: Unable to examine fully as patient in the chair Hip bursa: Tenderness to palpation Knees: ?Full range of motion. ?No tenderness, swelling, increased warmth or erythema.? Bilateral crepitations felt Ankles: Full range of motion. ?No tenderness, swelling, increased warmth or erythema.? Feet: ?Negative squeeze test. ?No tenderness to palpation or swelling of the MTPs. Tender points:?Tenderness to palpation of the bilateral trapezius, supraspinatus, greater trochanters, anterior costochondral junctions, bilateral gluteal areas, bilateral suboccipital muscle insertions Hyperpigmentation noted to the anterior surface of her bilateral legs distally. SKIN Skin intact without rashes. Results Reviewed Results Reviewed: Laboratory Tests 01/14/25 03/18/25 05/23/25 10:48 10:47 11:30 WBC 8.1 RBC 4.58 Hgb 13.7 Hct 43.3 Plt Count 270 ESR 36 H 26 H Sodium 143 Potassium 4.0 Chloride 106 Carbon Dioxide 30 H BUN 31 H Creatinine 1.27 1.48 H Uric Acid 5.7 AST 23 ALT 18 C-Reactive Protein 0.30 25-OH Vitamin D Total 41.6 Laboratory Tests 05/29/19 08/24/22 15:45 12:00 Rheumatoid Factor < 15.0 Cycl Citrul Peptide IgG <16 AR Screen Positive H NEGATIVE AR Titer 1:320 H DEXA 03/2025 FINDINGS: The bone mineral density of the lumbar spine is 1.263 with a T-score of 0.8, and a Z-score of 1.3. This is indicative of normal bone mineral density. This represents a BMD change of 10.9% compared to the prior exam. This is statistically significant. The bone mineral density of the left total hip is 0.913 with a T-score of -0.8, and a Z-score of 0.0. This is indicative of normal bone mineral density. This represents a BMD change of -6.6% compared to the prior exam. This is statistically significant. The bone mineral density of the left femoral neck is 0.834 with a T-score of -1.5, and a Z-score of -0.4. This is indicative of osteopenia. This represents a BMD change of -3.5% compared to the prior exam. FRACTURE RISK: The FRAX index suggests a ten year probability of major osteoporotic fracture of 5.1%, and of hip fracture 0.8%. Assessment & Plan Assessment & Plan (1) Psoriatic arthritis: Comment: Diagnosed 09/2022 as seronegative RA HCQ started 09/2022 Methotrexate added 11/2022 effective but DC 02/2023 d.t renal insufficiency HCQ DC'd 06/2023 Rash suspicious for psoriasis noted 04/2024. Dx changed PsA Otezla effective Code(s): L40.50 - Arthropathic psoriasis, unspecified Category: Medical Plan: #PsA Patient is a 74-year-old morbidly obese female with psoriatic arthritis. Currently on Otezla without any evidence of active synovitis or dactylitis on examination. Her joint pain and whole-body pain is likely secondary to osteoarthritis and fibromyalgia. Her creatinine clearance is 65 when calculated today. She is okay to continue Otezla at the current dose Plan - Otezla 30mg bid - RTC 4 months - Labs before visit:CBC, CMP, ESR, CRP (2) Gout: Comment: Initial uric acid level in 2019 9.8 Code(s): M10.9 - Gout, unspecified Category: Medical Qualifiers: Chronicity: chronic Gout etiology: idiopathic Gout site: toe Laterality: unspecified laterality Presence of tophus: without tophus Qualified Code(s): M1A.0790 - Idiopathic chronic gout, unspecified ankle and foot, without tophus (tophi) Plan: #Non crystal proven gout Patient with non crystal proven gout currently on allopurinol therapy. Uric acid at goal Plan - Allopurinol 300mg daily - UA goal <6 - RTC 4 months - Labs before visit: UA (3) Osteopenia: Comment: DEXA 06/2022. AP Spine -1.4, Left femur neck -1.2, Left femur total -0.2. FRAX 5.5/0.6 DEXA 03/2025. AP Spine 0.8, Left femur neck -1.5, Left femur total -0.8. FRAX 5.1/0.8 Code(s): M85.80 - Other specified disorders of bone density and structure, unspecified site Category: Medical Qualifiers: Osteopenia location: femoral neck Laterality: left Qualified Code(s): M85.852 - Other specified disorders of bone density and structure, left thigh Plan: #Osteopenia Patient with osteopenia based on DEXA done in 2021. Fracture index did not indicate treatment. Repeat DEXA stable Plan - Continue Ca-Vit D supplementation - RTC 4 months - Labs before visit: Vit D (4) Fibromyalgia, primary: Code(s): M79.7 - Fibromyalgia Category: Medical Plan: #Fibromyalgia Patient with fibromyalgia as well as polyarticular osteoarthritis. 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 Benefits include decreased joint pain and morbidity Risks include GI upset including diarrhea, hypersensitivity reactions, significant weight loss, symptoms of depression Patient's creatinine clearance today is 64ml/min We will need to reduce the dose once her creatinine clearance falls below 30 Plan I spent 38 minutes reviewing the record and labs, taking a history, examining the patient, discussing the treatment plan, counselling the patient and documenting in the medical record Medications: Refilled Otezla (apremilast) 30 mg PO BID 60 tabs 5RF NS L40.50 - Arthropathic psoriasis, unspecified allopurinol 300 mg PO QAM 90 tabs 1RF gabapentin 600 mg (2 x 300 mg) PO TID 540 caps 1RF 90 days M79.7 - Fibromyalgia Coding Level of Care Code Est Pt Level 4 (07664) Complex EM visit Add On G2211 Diagnoses Psoriatic arthritis L40.50 Chronic idiopathic gout involving toe without tophus, unspecified laterality M1A.0790 Chronicity: chronic Gout etiology: idiopathic Gout site: toe Laterality: unspecified laterality Presence of tophus: without tophus Osteopenia of neck of left femur M85.852 Osteopenia location: femoral neck Laterality: left Fibromyalgia, primary M79.7 Long-term current use of apremilast Z79.61
[2025-05-23 10:01] VITALS: BP 134/70; PULSE 78; O2SAT 94; BMI 47.7
--- OUTSIDE RECORDS SUMMARY | 2025-05-23 10:18 | XMS_ITS ---
Author Name Fady SUPPLY CONTROLLER,UPHOLSTERY PARTS SORTER,FN P,STERILE PRODUCTS PROCESSOR, Maddi Address [address] [place] [address] Phone [phone] [facility] Care Team Providers Care Chief Compressor Station Engineer Name Role Phone Maddi Shrestha Unavailable [phone] Unavailable Unavailable [phone] Unavailable Unavailable Unavailable Unavailable Unavailable Unavailable Cristo Garcia Unavailable [phone] Unavailable Unavailable [phone] Gideon Frost Unavailable [phone] Unavailable Unavailable Unavailable Unavailable Unavailable Unavailable Unavailable Unavailable [phone] WALTER ROBERT Unavailable [phone] Nirav Anthony Unavailable [phone] Unavailable Unavailable [phone] Unavailable Unavailable [phone] Reason for Referral Not Available Allergies, adverse [...] AREA(S) EVERY MORNING 2022-12-16 No Data Available Toibwvtr-[id number]-DE [id number] 3 TO 4 DROPS INTO [...] a day 2024-05-11 No Data Availab le Storee Verio Flex System w/Device Kit USE DIRECTED [...] to weight 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 Dr. Pascual (PCP) has ordered walker [facility] [id number] [place], [place] [phone] referral to OT or PT for Rolator [...] (do not use for phone, instead use 07814-21) [facility] ([place]) 04/07/2023 Noninfective gastroenteritis and colitis, unspecifiedRepeated fallsUnspecified [...] sitesSacroiliitis, not elsewhere classifiedAthscl heart disease of blackfeet cor art w unsp ang pctrsPeripheral vascular disease, unspecified New patient,40-59min; chronic exacerbation, 2 stable chronic or 1 acute illness add add modifier 95 for video (do not use for phone, instead use 05638-13) [facility] [place] New patient,40-59min; chronic exacerbation, 2 stable chronic or 1 acute illness add add modifier 95 for video (do not use for phone, instead use 70499-82) [facility]20[place] New patient,40-59min; chronic exacerbation, 2 stable chronic or 1 acute illness add add modifier 95 for video (do not use for phone, instead use 53921-49) [facility] 04[place]20[place] New patient,40-59min; chronic exacerbation, 2 stable chronic or 1 acute illness add add modifier 95 for video (do not use for phone, instead use 65061-21) [facility]20[place] New patient,40-59min; chronic exacerbation, 2 stable chronic or 1 acute illness add add modifier 95 for video (do not use for phone, instead use 78494-47) [facility] 04[place]20[place] New patient,40-59min; chronic exacerbation, 2 stable chronic or 1 acute illness add add modifier 95 for video (do not use for phone, instead use 11968-97) [facility] 04[place]/2023 New patient,40-59min; chronic exacerbation, 2 stable chronic or 1 acute illness add add modifier 95 for video (do not use for phone, instead use 60224-00) [facility] 04/[place]/2023 New patient,40-59min; chronic exacerbation, 2 stable chronic or 1 acute illness add add modifier 95 for video (do not use for phone, instead use 97593-65) [facility] [place] 04/07/2023 Unlisted special service; to be used for medical record reviews and reporting CPTII codes (1111F, etc) [facility] 07/01/2023 Other specified counseling Unlisted special service; to be used for medical record reviews and reporting CPTII codes (1111F, etc) [facility] 07/01/2023 Unlisted special service; to be used for medical record reviews and reporting CPTII codes (1111F, etc) [facility] ([place] 07/01/2023 No Data Available [facility] 08/10/2023 Body mass index (BMI) 45.0-4 9.9, adultPrediabetesMorbid (severe) obesity due to excess caloriesTinea unguiumLumbago with sciatica, left sideLumbago with sciatica, right sideOther chronic painOther intervertebral disc degeneration, lumbar region No Data Available [facility] [place] 08/10/2023 No Data Available [facility] [place] 08/10/2023 No Data Available [facility] [place] 10/21/2023 Dorsalgia, unspecifiedOther chronic painMorbid (severe) obesity due to excess caloriesOther specified personal risk factors, not elsewhere classified No Data Available [facility] [place] 10/21/2023 Estab. patient 30-39min; chronic exacerbation, 2 stable chronic or 1 acute illness add add modifier 95 for video, (do not use for phone, instead use 59456-95) [facility] [place] 05/11/2024 Type 2 diabetes mellitus wit h diabetic chronic kidney diseaseChronic kidney disease, stage 3bRepeated fallsUnspecified hearing loss, left earTinnitus, left earUnspecified hemorrhoidsOther specified postprocedural statesLumbago with sciatica, left sideLumbago with sciatica, right sideOther chronic painOther intervertebral disc degeneration, lumbar regionIdiopathic chronic gout, unspecified site, without tophus (tophi)Polyosteoarthritis, unspecifiedSchizophrenia, unspecifiedAthscl heart disease of blackfeet cor art w unsp ang pctrsType 2 diabetes w diabetic peripheral angiopath w/o gangreneUnsp athscl blackfeet arteries of extremities, bilateral legsChronic obstructive pulmonary [...] (do not use for phone, instead use 88913-54) [facility] 05[place]20[place] Estab. patient 30-39min; chronic exacerbation, 2 stable chronic or 1 acute illness add add modifier 95 for video, (do not use for phone, instead use 37520-45) [facility] 05[place]/20[place] Estab. patient 30-39min; chronic exacerbation, 2 stable chronic or 1 acute illness add add modifier 95 for video, (do not use for phone, instead use 32097-16) [facility] 05[place]11/20[place] Estab. patient 30-39min; chronic exacerbation, 2 stable chronic or 1 acute illness add add modifier 95 for video, (do not use for phone, instead use 27469-56) [facility] 05[place]11/20[place] Estab. patient 30-39min; chronic exacerbation, 2 stable chronic or 1 acute illness add add modifier 95 for video, (do not use for phone, instead use 13797-37) [facility] 05/11/2024 Estab. patient 30-39min; chronic exacerbation, 2 stable chronic or 1 acute illness add add modifier 95 for video, (do not use for phone, instead use 59216-51) [facility] 05/11/2024 No Data Available [facility] 05/14/2024 Type 2 diabetes mellitus wit h diabetic chronic kidney diseaseChronic kidney disease, stage 3b No Data Available [facility] 05/14/2024 No Data Available [facility] 06/20/2024 Type 2 diabetes mellitus wit h diabetic chronic kidney diseaseChronic kidney disease, stage 3b No Data Available [facility] [place] 06/20/2024 Unlisted special service; to be used for medical record reviews and reporting CPTII codes (1111F, etc) [facility] [place] 09/04/2024 Other specified counseling Unlisted special service; to be used for medical record reviews and reporting CPTII codes (1111F, etc) [facility] ([place] 09/04/2024 Unlisted special service; to be used for medical record reviews and reporting CPTII codes (1111F, etc) [facility] [place] 09/04/2024 Estab. patient 10-29min; 1 minor problem; add add modifier 95 for video, modifier 93 for phone [facility] [place] 12/18/2024 Type 2 diabetes mellitus wit h diabetic chronic kidney diseaseChronic kidney disease, stage 3bMorbid (severe) obesity due to excess caloriesBody mass index (bmi) 50-59.9 , adult Estab. patient 10-29min; 1 minor problem; add add modifier 95 for video, modifier 93 for phone [facility] [place] 12/18/2024 Estab. patient 10-29min; 1 minor problem; add add modifier 95 for video, modifier 93 for phone [facility] [place] 12/18/2024 Estab. patient 20-29min; 1 stable chronic or 2 minor; add add modifier 95 for video, modifier 93 for phone [facility] [place] 02/18/2025 Noninfective gastroenteritis and colitis, unspecifiedRepeated fallsUnspecified [...] to conditions classified elsewhereAthscl heart disease of blackfeet cor art w unsp ang pctrsPeripheral vascular disease, unspecifiedUnsp athscl blackfeet arteries of extremities, bilateral legsChronic obstructive pulmonary [...] 95 for video, modifier 93 for phone [facility] [place] 02[place]18[place]20[place] Estab. patient 20-29min; 1 stable chronic or 2 minor; add add modifier 95 for video, modifier 93 for phone [facility] [place] 02/18/2025 Estab. patient 20-29min; 1 stable chronic or 2 minor; add add modifier 95 for video, modifier 93 for phone [facility] [place] 02/18/2025 Estab. patient 20-29min; 1 stable chronic or 2 minor; add add modifier 95 for video, modifier 93 for phone [facility] [place] 02/18/2025 Estab. patient 20-29min; 1 stable chronic or 2 minor; add add modifier 95 for video, modifier 93 for phone [facility] ([place]) 02/18/2025 Estab. patient 20-29min; 1 stable chronic or 2 minor; add add modifier 95 for video, modifier 93 for phone [facility] [place] 02/18/2025 Estab. patient 20-29min; 1 stable chronic or 2 minor; add add modifier 95 for video, modifier 93 for phone [facility] [place] 02/18/2025 Estab. patient 10-29min; 1 minor problem; add add modifier 95 for video, modifier 93 for phone [facility] [place] 02/20/2025 Morbid (severe) obesity due to excess caloriesDorsalgia, unspecifiedOther chronic painSpinal stenosis, lumbar region without neurogenic claudicationPain disorder exclusively related to psychological factors Estab. patient 10-29min; 1 minor problem; add add modifier 95 for video, modifier 93 for phone [facility] [place] 02/20/2025 Vital Signs Date [...] tive Time Current Smoking Status Never smoker 2025-05-14 0 Sex Female Gender identity Woman History of Procedures Procedures Service Procedure code Service date Servicing provider Phone# New patient,40-59min; chronic exacerbation, 2 stable chronic or 1 acute illness add add modifier 95 for video (do not use for phone, instead use 35120-32) 56621 2023-04-07 No Data Available No Data Availa [...] reviews and reporting CPTII codes (1111F, etc) 25708 2023-07-01 No Data Available No Data Availa ble SBP < 130 (3074F) 3074F 2023-07-01 No Data Available No Data Available DBP <80 (3078F) 3078F 2023-07-01 No Data Available No Data Available No Data Available 37222 2023-08-10 No Data Available No Data Available Medication List Documented (1159F) 1159F 2023-08-10 No Data Available No Data Lena ilable BMI obtained (3008F) 3008F 2023-08-10 No Data Availab le No Data Available No Data Available 94055 2023-10-21 No Data Available No Data Available Medication List Documented (1159F) 1159F 2023-10-21 No Data Available No Data Lena ilable Estab. patient 30-39min; chronic exacerbation, 2 stable chronic or 1 acute illness add add modifier 95 for video, (do not use for phone, instead use 46880-18) 32211 2024-05-11 No Data Available No Data Availa [...] Available No Data Available No Data Available [id number] 2024-05-14 No Data Available No Data Available Medication List Documented (1159F) 1159F 2024-05-14 No Data Available No Data Lena ilable No Data Available [id number] 2024-06-20 No Data Available No Data Available Medication List Documented (1159F) 1159F 2024-06-20 No Data Available No Data Lena ilable Unlisted special service; to be used for medical record reviews and reporting CPTII codes (1111F, etc) 78963 2024-09-04 No Data Available No Data Availa ble SBP >= 140 3077F 2024-09-04 No Data Available No Data Available DBP >=90 3080F 2024-09-04 No Data Available No Data Available Estab. patient 10-29min; 1 minor problem; add add modifier 95 for video, modifier 93 for phone 25468 2024-12-18 No Data Available No Data Availa ble Medication List Documented (1159F) 1159F 2024-12-18 No Data Available No Data Lena ilable BMI obtained (3008F) 3008F 2024-12-18 No Data Availab le No Data Available Estab. patient 20-29min; 1 stable chronic or 2 minor; add add modifier 95 for video, modifier 93 for phone 83090 2025-02-18 No Data Available No Data Availa [...] 95 for video, modifier 93 for phone 77643 2025-02-20 No Data Available No Data Availa [...] rheumatoid factor, multiple sitesAtherosclerotic heart disease of blackfeet coronary artery with unspecified angina pectoris;Peripheral vascular [...] discChronic gouty arthritis;Generalized osteoarthritisSchizophreniaAtherosclerotic heart disease of blackfeet coronary artery with unspecified angina pectoris;Peripheral vascular disease, unspecifiedUnspecified atherosclerosis of blackfeet arteries of extremities, bilateral legsChronic obstructive pulmonary [...] to conditions classified elsewhereAtherosclerotic heart disease of blackfeet coronary artery with unspecified angina pectoris;Peripheral vascular disease, unspecifiedUnspecified atherosclerosis of blackfeet arteries of extremities, bilateral legsChronic obstructive pulmonary [...] for weight clinic - also endocr for [facility] MASending to podiatry per pt request.Also needs [...] area that had available staff.Pt to call [facility] and get name of PT providers in her area that are covered.Will investigate weight loss clinics.Pt to look for back exercises on YouTube, activity as tolerated.Will FU.BMI 49.25send to weight clinic but not [place]referral for weight clinic - also [place]ocr [place] [facility] [place]10/21/2023Have not been able to find clinic that is covered by [facility] in er area. 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 Pt to call [facility] and find list of names [...] area that had available staff.Pt to call [facility] and get name of PT [...] modifier 95)Continue to see PCP. [facility] as needed for any acute or disease [...] our conversation of three days ago. Her TELEPHONE SALES REPRESENTATIVE is supposed to go tonight or tomorrow [...] modifier 95)Continue to see PCP. [facility] as needed for any acute or [...] our conversation of three days ago. 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 She will be traveling to [place] so she is to ask for emergency traveling supply, which won't be much as she will be back mid July.Refilled w instructions to pharmacy.Will FU after mid-july. 2024-12-18 08:09:04 Estab. patient 10-29 min; 1 minor problem; add add modifier 95 for video, modifier 93 for phoneContinue to see PCP. Follow-[facility] with [facility] as needed for any acute or [...] our conversation of three days ago. 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 She will be traveling to [place] so she is to ask for emergency [...] for weight clinic - also [facility]ocr for [facility]10/21/2023Have not been able to find clinic that is covered by [facility] in er area. Pt to call [facility] and find list of names [...] obtained (3008F)Continue to see PCP. 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 Dr. Pascual (PCP) has ordered walker [facility] CEOXS[address] [place], [place] [phone] referral to OT or PT for Rolator [...] product to buy: - 2025-02-20 has [address]
--- OUTSIDE RECORDS SUMMARY | 2025-05-23 10:18 | XMS_ITS | Encounter Summary ---
Author Organization [facility], Address [address] [place] [address] Phone Care Team Providers Care Functional Consultant Name Role Phone Violeta Boo MD Primary Care Provide r Encounter Details Date Type Department Care Team (Late Contact Info) Description 03/15/2022 Documentation Only [facility] [address] [place] [address] Shailesh Vallejo MD [address] [place] [address] [place] [address] Social History Tobacco Use Types [...] [facility] [address] [place] [address] Shailesh Vallejo MD [address] [place] [address] [place] [address] documented as of this encounter Visit Diagnoses Not on filedocumented in this encounter Care Teams Functional Consultant Relationship Specialty Start Date End Date Violeta Boo MD [address] [place] [phone] PCP - General Internal Medicine 03/21/23 documented as of this encounter
--- OUTSIDE RECORDS SUMMARY | 2025-05-23 10:19 | XMS_ITS | Clinical Summary ---
Author Organization [address] [facility] Address [address] [place] [address] Phone Care Team Providers Care Avionics Systems Integration Specialist Name Role Phone Zheng Boo MD Primary [...] kidney disease, stag e III (moderate) ([facility] V24, [facility] V28) 10/08/2024 Essential hypertension, benign 10/08/2024 Hyperlipidemia 10/08/2024 Osteopenia 10/08/2024 Primary osteoarthritis of both knees 10/08/2024 Psychotic disorder ([facility] V24, [facility] V28) Tubular adenoma of colon 10/08/2024 Dyslipidemia [...] Onychomycosis 03/08/2023 Type 2 diabetes mellitus ([facility] V24, [facility] V 28) 01/31/2023 Otitis externa 12/16/2022 Overview [...] gouty arthritis 09/08/2018 Episodic mood disorder ([facility] V24) 08/08/2018 Generalized osteoarthritis 08/08/2018 Morbid obesity ([facility] V24, [facility] V28) 2017 Overview (10/08/2024): Last Assessment & Plan: Discussed re weight reduction options including exercise, life style modifications, diet, referral to fitness specialist. Discussed re lower calorie intake, increase [...] PM EDT Office Visit Orthopedic Surgery - [place] [address] [phone] Maury Godoy DPTeri [address] [address] Health Maintenance Due Date Last Done Comments [...] Test (03/01/2024) Annual BMP Blood Test Abstracted [facility] Provider [place] HEALTH MAINTENANCE Final Result * Hemoglobin A1c (08/09/2022) Pathologist [facility] Hemoglobin A1C 0.0 % Comment:No Interpretation, A bstracted Blood Venous blood specimen / Unknown Result [facility] Provider LAB BLOOD ORDERABLES Almaz l Result * Lipid panel (03/15/2022) Pathologist [facility] LDL/HDL Ratio 0 Comment:No Interpretation, A bstracted Triglycerides 0 mg/dL Comment:No Interpretation, A bstracted Cholesterol 0 mg/dL Comment:No Interpretation, A bstracted HDL 0 mg/dL Comment:No Interpretation, A bstracted LDL Cholesterol 0 mg/dL Comment:No Interpretation, A bstracted Blood Venous blood specimen / Unknown [facility] Provider LAB BLOOD ORDERABLES Almaz l Result from Last 3 Months or Most Recently Relevant to Health Maintenance Insurance [address] [place] [id number] [facility] MEDICARE MEDICAID - [place] Care Teams Avionics Systems Integration Specialist Relationship Specialty Start Date End Date Zheng Boo MD [address] [phone] PCP - General 03/29/23
== END 2025-05-23 10:49 | disposition home or self-care (01) ==
LOC: HO.RHE 09:48
PROVIDERS: PCP Internal Medicine; Visit Provider Student in an Organized Health Care Education/Training Program
DX: L40.50 Arthropathic psoriasis, unspecified (principal); M1A.0790 Idiopathic chronic gout, unspecified ankle and foot, without tophus (tophi); M85.852 Other specified disorders of bone density and structure, left thigh; M79.7 Fibromyalgia; Z79.61 Long term (current) use of immunomodulator
CPT/HCPCS: 99214; G2211

== ENCOUNTER 2025-05-30 10:03 | Outpatient (REF) | payer OTHER, SELFPAY ==
[2025-05-30 10:21] LABS: MANUAL DIFF FLAG NO
--- OUTSIDE RECORDS SUMMARY | 2025-05-30 10:31 | XMS_ITS | Encounter Summary ---
Author Organization [employer] Address [address] [facility] [address] [place] [address] Care Team Providers Care Spaghetti Press Helper Name Role Phone Violeta Boo MD Primary Care Provide r Reason for Visit * Reason Comments Med Refill Encounter Details Date Type Department Care Team (Late Contact Info) Description 02/13/2023 Refill [facility] MEDICINE [address] [place] [address] Cassy Starks MD 230 [place] [address] Social History Tobacco Use Types Packs/Day Years [...] Description 06/07/2025 9:30 AM EDT Office Visit [facility] OPTOMETRY [address] [place] [address] Caden, Angella, OD [address] [place] [address] documented as of this encounter Visit Diagnoses Not on filedocumented in this encounter Care Teams Spaghetti Press Helper Relationship Specialty Start Date End Date Violeta Boo MD [address] [place] [address] PCP - General Family Medicine 05/21/22 documented as of this encounter
--- OUTSIDE RECORDS SUMMARY | 2025-05-30 10:31 | XMS_ITS | Encounter Summary ---
Author Organization [facility], Address [address] [place] [address] Phone Care Team Providers Care Assembler Radio And Electrical Name Role Phone Violeta Boo MD Primary Care Provide r Encounter Details Date Type Department Care Team (Late Contact Info) Description 03/15/2022 Documentation Only [facility] [address] [place] [address] Shailesh Vallejo MD [address] [place] [address] [place] [address] Social History Tobacco Use Types [...] [facility] [address] [place] [address] Shailesh Vallejo MD [address] [place] [address] [place] [address] documented as of this encounter Visit Diagnoses Not on filedocumented in this encounter Care Teams Assembler Radio And Electrical Relationship Specialty Start Date End Date Violeta Boo MD [address] [place] [phone] PCP - General Internal Medicine 03/21/23 documented as of this encounter
--- OUTSIDE RECORDS SUMMARY | 2025-05-30 10:31 | XMS_ITS ---
Author Name Fady MOLDER MACHINE,CLASSIFIED ADVERTISING CLERK,FN P,EDUCATIONAL MANAGER, Maddi Address [address] [place] [address] Phone [phone] [facility] Care Team Providers Care Roast Master Name Role Phone ShresthaMaddi Unavailable [phone] Unavailable Unavailable [phone] Unavailable Unavailable Unavailable Unavailable Unavailable Unavailable Cristo Garcia Unavailable [phone] Unavailable Unavailable [phone] Gideon Frost Unavailable [phone] Unavailable Unavailable Unavailable Unavailable Unavailable Unavailable Unavailable Unavailable [phone] WALTER ROBERT Unavailable [phone] Nirav Anthony Unavailable [phone] Unavailable Unavailable [phone] Unavailable Unavailable [phone] Reason for Referral Not Available Allergies, adverse [...] AREA(S) EVERY MORNING 2022-12-16 No Data Available Ryndyygc-Alybgoyul-WX [id number] 3 TO 4 DROPS INTO [...] a day 2024-05-11 No Data Availab le [email or web address] Verio Flex System w/Device Kit USE DIRECTED [...] to weight 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 Her AUDIOVISUAL LIBRARIAN is supposed to go tonight or tomorrow [...] to [facility] to assist Unspecified atherosclerosis of [place] arteries of extremities, bilateral legs Active 2023-03-16 1 N/A StablestatinMD portal notes, I70.203 - Unspecified atherosclerosis of [place] arteries of extremities, bilateral legs Hemorrhoids Active [...] support person: son / Transfer member to [address] [place] [address]/ Quetiapine 50mg PO q12h PRN agitation/ Remind [...] Active 2023-10-0 8 N/A [facility] - [place] 250-Maury Godoy, DPM02/20/25Does not have PT in place after back surgery? Dr. Pascual (PCP) has ordered walker [facility] [id number] [place], [place] [phone] referral to OT or PT for Rolator [...] (do not use for phone, instead use 62087-78) [facility] ([place]) 04/07/2023 Noninfective gastroenteritis and colitis, unspecifiedRepeated fallsUnspecified [...] sitesSacroiliitis, not elsewhere classifiedAthscl heart disease of kalispel cor art w unsp ang pctrsPeripheral vascular disease, unspecified New patient,40-59min; chronic exacerbation, 2 stable chronic or 1 acute illness add add modifier 95 for video (do not use for phone, instead use 81981-96) [facility] [place] New patient,40-59min; chronic exacerbation, 2 stable chronic or 1 acute illness add add modifier 95 for video (do not use for phone, instead use 99254-62) [facility] New patient,40-59min; chronic exacerbation, 2 stable chronic or 1 acute illness add add modifier 95 for video (do not use for phone, instead use 08809-25) [facility] New patient,40-59min; chronic exacerbation, 2 stable chronic or 1 acute illness add add modifier 95 for video (do not use for phone, instead use 34786-80) [facility] New patient,40-59min; chronic exacerbation, 2 stable chronic or 1 acute illness add add modifier 95 for video (do not use for phone, instead use 67626-68) [facility] [place] New patient,40-59min; chronic exacerbation, 2 stable chronic or 1 acute illness add add modifier 95 for video (do not use for phone, instead use 78313-82) [facility] [place] 04[place]20[place] New patient,40-59min; chronic exacerbation, 2 stable chronic or 1 acute illness add add modifier 95 for video (do not use for phone, instead use 53968-71) [facility] 04[place] New patient,40-59min; chronic exacerbation, 2 stable chronic or 1 acute illness add add modifier 95 for video (do not use for phone, instead use 82591-51) [facility] 04/[place]/2023 Unlisted special service; to be used for medical record reviews and reporting CPTII codes (1111F, etc) [facility] 07/01/2023 Other specified counseling Unlisted special service; to be used for medical record reviews and reporting CPTII codes (1111F, etc) [facility] [place] 07/01/2023 Unlisted special service; to be used for medical record reviews and reporting CPTII codes (1111F, etc) [facility] [place] 07/01/20[place] No Data Available [facility] [place] 08/10/2023 Body mass index (BMI) 45.0-4 9.9, adultPrediabetesMorbid (severe) obesity due to excess caloriesTinea unguiumLumbago with sciatica, left sideLumbago with sciatica, right sideOther chronic painOther intervertebral disc degeneration, lumbar region No Data Available [facility] [place] 08/10/2023 No Data Available [facility] [place] 08/10/2023 No Data Available [facility] [place] 10/21/2023 Dorsalgia, unspecifiedOther chronic painMorbid (severe) obesity due to excess caloriesOther specified personal risk factors, not elsewhere classified No Data Available [facility] [place] 10/21/2023 Estab. patient 30-39min; chronic exacerbation, 2 stable chronic or 1 acute illness add add modifier 95 for video, (do not use for phone, instead use 55682-51) [facility] [place] 05/11/2024 Type 2 diabetes mellitus wit h diabetic chronic kidney diseaseChronic kidney disease, stage 3bRepeated fallsUnspecified hearing loss, left earTinnitus, left earUnspecified hemorrhoidsOther specified postprocedural statesLumbago with sciatica, left sideLumbago with sciatica, right sideOther chronic painOther intervertebral disc degeneration, lumbar regionIdiopathic chronic gout, unspecified site, without tophus (tophi)Polyosteoarthritis, unspecifiedSchizophrenia, unspecifiedAthscl heart disease of kalispel cor art w unsp ang pctrsType 2 diabetes w diabetic peripheral angiopath w/o gangreneUnsp athscl kalispel arteries of extremities, bilateral legsChronic obstructive pulmonary [...] (do not use for phone, instead use 88693-45) [facility]20[place] Estab. patient 30-39min; chronic exacerbation, 2 stable chronic or 1 acute illness add add modifier 95 for video, (do not use for phone, instead use 03980-23) [facility]/20[place] Estab. patient 30-39min; chronic exacerbation, 2 stable chronic or 1 acute illness add add modifier 95 for video, (do not use for phone, instead use 79462-80) [facility] 05[place]/20[place] Estab. patient 30-39min; chronic exacerbation, 2 stable chronic or 1 acute illness add add modifier 95 for video, (do not use for phone, instead use 27762-08) [facility] 05[place]/20[place] Estab. patient 30-39min; chronic exacerbation, 2 stable chronic or 1 acute illness add add modifier 95 for video, (do not use for phone, instead use 72583-93) [facility] 05/[place]/2024 Estab. patient 30-39min; chronic exacerbation, 2 stable chronic or 1 acute illness add add modifier 95 for video, (do not use for phone, instead use 87920-43) [facility] 05/[place]/2024 No Data Available [facility] 05/14/2024 Type 2 diabetes mellitus wit h diabetic chronic kidney diseaseChronic kidney disease, stage 3b No Data Available [facility] [place] 05/14/2024 No Data Available [facility] 06/[place]/2024 Type 2 diabetes mellitus wit h diabetic chronic kidney diseaseChronic kidney disease, stage 3b No Data Available [facility] [place] 06/[place]/2024 Unlisted special service; to be used for medical record reviews and reporting CPTII codes (1111F, etc) [facility] [place] 09/04/2024 Other specified counseling Unlisted special service; to be used for medical record reviews and reporting CPTII codes (1111F, etc) [facility] ([place] 09/04/2024 Unlisted special service; to be used for medical record reviews and reporting CPTII codes (1111F, etc) [facility] [place] 09/04/20[place] Estab. patient 10-29min; 1 minor problem; add add modifier 95 for video, modifier 93 for phone [facility] [place] 12/18/2024 Type 2 diabetes mellitus wit h diabetic chronic kidney diseaseChronic kidney disease, stage 3bMorbid (severe) obesity due to excess caloriesBody mass index (bmi) 50-59.9 , adult Estab. patient 10-29min; 1 minor problem; add add modifier 95 for video, modifier 93 for phone [facility] [place] 12/18/2024 Estab. patient 10-29min; 1 minor problem; add add modifier 95 for video, modifier 93 for phone [facility], [place] 12/18/2024 Estab. patient 20-29min; 1 stable chronic or 2 minor; add add modifier 95 for video, modifier 93 for phone [facility], [place] 02/18/2025 Noninfective gastroenteritis and colitis, unspecifiedRepeated fallsUnspecified [...] to conditions classified elsewhereAthscl heart disease of k[place] cor art w unsp ang pctrsPeripheral vascular disease, unspecifiedUnsp athscl kalispel arteries of extremities, bilateral legsChronic obstructive pulmonary [...] 95 for video, modifier 93 for phone [facility], ([place] 02/18/20[place] Estab. patient 20-29min; 1 stable chronic or 2 minor; add add modifier 95 for video, modifier 93 for phone [facility], [place] 02/18/2025 Estab. patient 20-29min; 1 stable chronic or 2 minor; add add modifier 95 for video, modifier 93 for phone [facility] [place] 02/18/2025 Estab. patient 20-29min; 1 stable chronic or 2 minor; add add modifier 95 for video, modifier 93 for phone [facility] [place] 02/18/2025 Estab. patient 20-29min; 1 stable chronic or 2 minor; add add modifier 95 for video, modifier 93 for phone [facility] ([place] 02/18/2025 Estab. patient 20-29min; 1 stable chronic or 2 minor; add add modifier 95 for video, modifier 93 for phone [facility] [place] 02/18/2025 Estab. patient 20-29min; 1 stable chronic or 2 minor; add add modifier 95 for video, modifier 93 for phone [facility] [place] 02/18/2025 Estab. patient 10-29min; 1 minor problem; add add modifier 95 for video, modifier 93 for phone [facility] [place] 02/20/2025 Morbid (severe) obesity due to excess caloriesDorsalgia, unspecifiedOther chronic painSpinal stenosis, lumbar region without neurogenic claudicationPain disorder exclusively related to psychological factors Estab. patient 10-29min; 1 minor problem; add add modifier 95 for video, modifier 93 for phone [facility] ([place] 02/20/2025 Vital Signs Date [...] Time Current Smoking Status Never smoker 2025-05-14 7 Sex Female Gender identity Woman History of Procedures Procedures Service Procedure code Service date Servicing provider Phone# New patient,40-59min; chronic exacerbation, 2 stable chronic or 1 acute illness add add modifier 95 for video (do not use for phone, instead use 96269-68) 83317 2023-04-07 No Data Available No Data Availa ble Medication List Documented (1159F) 1159F 2023-04-07 No Data Available No Data Elna ilable Medication Review by prescribing provider or [...] reviews and reporting CPTII codes (1111F, etc) 64963 2023-07-01 No Data Available No Data Availa ble SBP < 130 (3074F) 3074F 2023-07-01 No Data Available No Data Available DBP <80 (3078F) 3078F 2023-07-01 No Data Available No Data Available No Data Available 06500 2023-08-10 No Data Available No Data Available Medication List Documented (1159F) 1159F 2023-08-10 No Data Available No Data Lena ilable BMI obtained (3008F) 3008F 2023-08-10 No Data Availab le No Data Available No Data Available 56623 2023-10-21 No Data Available No Data Available Medication List Documented (1159F) 1159F 2023-10-21 No Data Available No Data Lena ilable Estab. patient 30-39min; chronic exacerbation, 2 stable chronic or 1 acute illness add add modifier 95 for video, (do not use for phone, instead use 22488-01) 52185 2024-05-11 No Data Available No Data Availa [...] Available No Data Available No Data Available 73418 2024-05-14 No Data Available No Data Available Medication List Documented (1159F) 1159F 2024-05-14 No Data Available No Data Lena ilable No Data Available 24596 2024-06-20 No Data Available No Data Available Medication List Documented (1159F) 1159F 2024-06-20 No Data Available No Data Lena ilable Unlisted special service; to be used for medical record reviews and reporting CPTII codes (1111F, etc) 97192 2024-09-04 No Data Available No Data Availa ble SBP >= 140 3077F 2024-09-04 No Data Available No Data Available DBP >=90 3080F 2024-09-04 No Data Available No Data Available Estab. patient 10-29min; 1 minor problem; add add modifier 95 for video, modifier 93 for phone 81814 2024-12-18 No Data Available No Data Availa ble Medication List Documented (1159F) 1159F 2024-12-18 No Data Available No Data Lena ilable BMI obtained (3008F) 3008F 2024-12-18 No Data Availab le No Data Available Estab. patient 20-29min; 1 stable chronic or 2 minor; add add modifier 95 for video, modifier 93 for phone 35349 2025-02-18 No Data Available No Data Availa [...] 95 for video, modifier 93 for phone 83925 2025-02-20 No Data Available No Data Availa [...] rheumatoid factor, multiple sitesAtherosclerotic heart disease of kalispel coronary artery with unspecified angina pectoris;Peripheral vascular [...] discChronic gouty arthritis;Generalized osteoarthritisSchizophreniaAtherosclerotic heart disease of kalisp[place] coronary artery with unspecified angina pectoris;Peripheral vascular disease, unspecifiedUnspecified atherosclerosis of k[place]isp[place] arteries of extremities, bilateral legsChronic obstructive pulmonary [...] to conditions classified elsewhereAtherosclerotic heart disease of k[place]isp[place] coronary artery with unspecified angina pectoris;Peripheral vascular disease, unspecifiedUnspecified atherosclerosis of kalisp[place] arteries of extremities, bilateral legsChronic obstructive pulmonary [...] for weight clinic - also endocr for [facility] MASending to podiatry per pt request.Also needs [...] area that had available staff.Pt to call [facility] and get name of PT providers in her area that are covered.Will investigate weight loss clinics.Pt to look for back exercises on YouTube, activity as tolerated.Will FU.BMI 49.25send to weight clinic but not [place]referral for weight clinic - also endocr for [facility] [place]10/21/2023Have not been able to find clinic that is covered by [facility] in er area. Pt to call [facility] and find list of names of clinics.Will [...] portal notes, I70.203 - Unspecified atherosclerosis of kalisp[place] arteries of extremities, bilateral legs continues to take albuterol sulfatePlease call CB ifIncreased SOB,or if patient falls.Pain that radiates to vaginaHas seen PCPhas referral to GI but is going to cancelEd not to cancel, get transportBMI 52.08send to weight clinic but not [place] 08/[place]/2023referral for weight clinic - also [facility]ocr for [facility]/21/2023Have not been able to find clinic that is covered by [facility] in er area. Pt to call [facility] and find list of names of clinics.Will [...] area that had available staff.Pt to call [facility] and get name of PT providers in [...] modifier 95)Continue to see PCP. [facility] [...] our conversation of three days ago. Her AUDIOVISUAL LIBRARIAN is supposed to go tonight or tomorrow [...] modifier 95)Continue to see PCP. Follow-up with [facility] as needed for any acute [...] our conversation of three days ago. Her AUDIOVISUAL LIBRARIAN is supposed to go tonight or tomorrow [...] for phoneContinue to see PCP. Follow-up with [facility] as needed for any acute [...] our conversation of three days ago. Her AUDIOVISUAL LIBRARIAN is supposed to go tonight or tomorrow [...] for weight clinic - also endocr for [facility]/21/2023Have not been able to find clinic that is covered by [facility] in er area. Pt to call [facility] and find list of names of clinics.Will [...] obtained (3008F)Continue to see PCP. [facility] for any acute or disease education needs that may arise.PSYCH CONTINGENCY PLANLast updated: 02/18/2025Schizoaffective DisorderMember to call for the following symptoms: Anxiety/ Hallucinations/ Mistrust / inability to relax/ Restlessness/ Worsening paranoia or delusions Planned intervention: Contact support person: son / Transfer member to [address] [place] [address]/ Quetiapine 50mg PO q12h PRN agitation/ Remind [...] portal notes, I70.203 - Unspecified atherosclerosis of kalisp[place] arteries of extremities, bilateral legs Stablealbuterol sulfateMonitor [...] with GLP1 and [facility]Maury Godoy DPM/08/08Does not have PT in place after back surgery? Dr. Pascual (PCP) has ordered walker [facility] [id number] [place], [place] [phone] referral to OT or PT for Rolator [...] product to buy: - 2025-02-20 has [address]
--- OUTSIDE RECORDS SUMMARY | 2025-05-30 10:31 | XMS_ITS | Clinical Summary ---
Author Organization [facility] Address [address] [place] [address] Phone Care Team Providers Care Puttying And Calking Supervisor Name Role Phone Zheng Boo MD Primary [...] Chronic kidney disease, stag e III (moderate) ([facility] V24, [facility] V28) 10/08/2024 Essential hypertension, benign 10/08/2024 Hyperlipidemia 10/08/2024 Osteopenia 10/08/2024 Primary osteoarthritis of both knees 10/08/2024 Psychotic disorder ([facility] V24, [facility] V28) Tubular adenoma of colon 10/08/2024 [...] appointment Onychomycosis 03/08/2023 Type 2 diabetes mellitus ([facility] V24, [facility] V 28) 01/31/2023 Otitis externa 12/16/2022 [...] Chronic gouty arthritis 09/08/2018 Episodic mood disorder ([facility] V24) 08/08/2018 Generalized osteoarthritis 08/08/2018 Morbid obesity ([facility] V24, [facility] V28) 2017 Overview (10/08/2024): Last Assessment & Plan: Discussed re weight reduction options including exercise, life style modifications, diet, referral to neuro psych sales specialist. Discussed re lower calorie intake, increase [...] PM EDT Office Visit Orth[facility] Surgery - [place] [address] [phone] Maury Godoy DPTeri [address] [address] Health Maintenance Due Date Last Done Comments [...] Test (03/01/2024) Annual BMP Blood Test Abstracted [facility] Provider [place] HEALTH MAINTENANCE Final Result * Hemoglobin A1c (08/09/2022) Pathologist [facility] Hemoglobin A1C 0.0 % Comment:No Interpretation, A bstracted Blood Venous blood specimen / Unknown Result [facility] Provider LAB BLOOD ORDERABLES Almaz l Result * Lipid panel (03/15/2022) Pathologist [facility] LDL/HDL Ratio 0 Comment:No Interpretation, A bstracted Triglycerides 0 mg/dL Comment:No Interpretation, A bstracted Cholesterol 0 mg/dL Comment:No Interpretation, A bstracted HDL 0 mg/dL Comment:No Interpretation, A bstracted LDL Cholesterol 0 mg/dL Comment:No Interpretation, A bstracted Blood Venous blood specimen / Unknown [facility] Provider LAB BLOOD ORDERABLES Almaz l Result from Last 3 Months or Most Recently Relevant to Health Maintenance Insurance [address] [place] [id number] [facility] MEDICARE MEDICAID - [place] Care Teams Puttying And Calking Supervisor Relationship Specialty Start Date End Date Zheng Boo MD [address] [phone] PCP - General 03/29/23
[2025-05-30 10:40] LABS: Hematocrit 41.5 % (37.0-47.0); Hemoglobin 13.6 g/dl (12.0-16.0); Imm Gran Abs Auto 0.03 X10*3/uL (0.00-0.03); Imm Gran Pct Auto 0.4 % (0.0-0.4); Lymphocytes Absolute Auto 2.0 X10*3/uL (1.2-4.9); Mean Corpuscular HGB Conc 32.8 g/dl (31.0-35.0); Mean Corpuscular Hemoglobin 30.0 pg (27.0-33.0); Mean Corpuscular Volume 91.4 fL (80.0-98.0); NRBC Abs Auto 0.000 X10*3/uL (0.0-0.012); NRBC Pct Auto 0.0 /100WBC (0.0-0.2); Platelet Count 291 X10*3/uL (160-400); Red Blood Count 4.54 X10*6/uL (4.20-5.50); White Blood Count 7.9 X10*3/uL (4.8-10.8)
[2025-05-30 11:44] LABS: Alanine Aminotransferase 18 U/L (0-31); Albumin Level 4.1 g/dL (3.5-5.0); Alkaline Phosphatase 136 U/L (39-117); Anion Gap 14 (12-20); Aspartate Amino Transferase 25 U/L (5-31); Blood Urea Nitrogen 24 mg/dL (9-16); Calcium 9.4 mg/dL (8.4-10.2); Carbon Dioxide 27 mmol/L (22-29); Chloride 104 mmol/L (96-108); Cholesterol 140 mg/dL (<200); Estimated Glomerular Filt Rate 37; HDL Cholesterol 29 mg/dL (>40); Potassium 3.8 mmol/L (3.3-5.1); Sodium 141 mmol/L (135-145); Total Protein 6.6 g/dL (6.5-8.0); Triglycerides 214 mg/dL (<150)
[2025-05-30 11:52] LABS: HIV Num 1 0.05 S/CO (0.00-0.99); ~HepC Num1 0.06 S/CO (0.00-0.79); ~Hepatitis C Antibody Nonreactive (Nonreactive)
== END 2025-05-30 10:04 | disposition home or self-care (01) ==
LOC: HO.LAB 10:03
PROVIDERS: PCP Internal Medicine; Visit Provider Internal Medicine
DX: I10 Essential (primary) hypertension (principal)
CPT/HCPCS: 36415; 80053; 80061; 82306; 84443; 85025; 86803; 87389

== ENCOUNTER 2025-06-10 10:08 | Outpatient (AMB) | payer OTHER, SELFPAY ==
--- NOTE | 2025-06-10 10:12 | MHC.OFFVIS ---
Vital Signs 06/10/25 10:13 Height 5 ft 3 in Weight 269 lb BMI 47.6 Intake Visit Reasons: OV-B/L knee OA requesting inj Intake Note: Violeta is a 75 year old female who presents today for a follow up of her bilateral knee OA. She was last seen 06/23/23 where both of her knees were injected. Patient reports of ongoing pain and buckling in both knees. She would like to repeat bilateral knee injections today Allergies peanut (PEANUT) Allergy (Severe, Verified 06/10/25 10:18) ITCHY, SWELLING seafood Allergy (Severe, Verified 06/10/25 10:18) Rash tomato (TOMATO) Allergy (Severe, Verified 06/10/25 10:18) ITCHY, SWELLING aspirin (ASA) Allergy (Intermediate, Verified 06/10/25 10:18) ITCHY,ANXIOUS, itching, rash Iodinated Contrast Media (IV CONTRAST) Allergy (Intermediate, Verified 06/10/25 10:18) HIVES plantain (PLANTAIN) Allergy (Intermediate, Verified 06/10/25 10:18) ITCHY/SWELLING HPI HPI OV-B/L knee OA requesting inj: Details: Violeta is a 75 year old female who presents today for a follow up of her bilateral knee OA. She was last seen 06/23/23 where both of her knees were injected. Patient reports of ongoing pain and buckling in both knees. She would like to repeat bilateral knee injections today [facility] Medical History (Updated 05/23/25 @ 13:50 by Solange Ojeda MD) Myocardial infarct Pain in left shoulder Screening for viral disease COPD (chronic obstructive pulmonary disease) Restrictive lung disease Allergic rhinitis ZOEY (obstructive sleep apnea) Edema PVD (peripheral vascular disease) On beta prashant at home Osteopenia Gout Osteoarthritis Rheumatoid arthritis Anemia Panic attacks Anxiety Schizophrenia Pre-diabetes CKD (chronic kidney disease), stage III GERD (gastroesophageal reflux disease) Fatty liver Myocardial infarction CAD (coronary artery disease) Angina pectoris HTN (hypertension) Morbid obesity ZOEY treated with BiPAP COPD (chronic obstructive pulmonary disease) Allergic rhinitis Surgical History History of colonoscopy (~2021) History of lumpectomy of right breast (06/21/22) History of bladder suspension procedure History of esophagogastroduodenoscopy (EGD) Hx of colonoscopy History of hysterectomy History of tubal ligation History of lumpectomy of right breast Family History Mother Leukemia Brother Colon cancer Brother Leukemia Sister Breast cancer Sister Vaginal cancer Sister Breast cancer Sister Breast cancer Daughter Thyroid disease Social History Alcohol intake: never Patient Tobacco Use Status: Never used Tobacco Second Hand Smoke Exposure: No Female Reproductive History Menstrual Age of Menarche: 13 Physical Exam Vital Signs: BMI result Body Mass Index 47.6 Extrem Other: TTP medial compartment bilateral knees Skin healthy with no open wounds or edema knees are stable to varus and valgus stress Office Procedures Joint Inj/Aspir; Non-Pain Clin Joint Injection/Drain Details: Injected 1 mL of Decadron and 3 mL 1% lidocaine and 3 mL of 0.25% Marcaine. Site was prepped using aseptic technique. Patient tolerated the procedure well. Shoulders, Hips, Knees, Knee Large Joint Injection : Bilateral Knee Coding Procedure code (CPT) selection complete Assessment & Plan Assessment & Plan (1) Bilateral primary osteoarthritis of knee: Code(s): M17.0 - Bilateral primary osteoarthritis of knee Category: Medical Plan: I injected bilateral knees today. She does appear to have a autoimmune component to her arthritis. Her BMI is 47 and she is not a surgical candidate at this time. We can repeat injections in the future she so desires. I think weight loss would be the most helpful intervention at this point. Coding Level of Care Code Est Pt Level 3 (12866) Diagnoses Bilateral primary osteoarthritis of knee M17.0 CPT Codes Shoulders, Hips, Knees, - Knee Large Joint Injection 11223: Bilateral Knee ([id number])
[2025-06-10 10:13] VITALS: BMI 47.6
--- OUTSIDE RECORDS SUMMARY | 2025-06-10 11:09 | XMS_ITS ---
Author Name Fady CABLE FORMER,GEOSPATIAL SYSTEMS INTEGRATOR,FN P,BAG LOADER, Maddi Address [address] [place] [address] Phone [phone] [facility] Care Team Providers Care Snailer Name Role Phone ShresthaMaddi Unavailable [phone] Unavailable Unavailable [phone] Unavailable Unavailable Unavailable Unavailable Unavailable Unavailable Cristo Garcia Unavailable [phone] Unavailable Unavailable [phone] Gideon Frost Unavailable [phone] Unavailable Unavailable Unavailable Unavailable Unavailable Unavailable Unavailable Unavailable [phone] WALTER ROBERT Unavailable [phone] Nirav Anthony Unavailable [phone] Unavailable Unavailable [phone] Unavailable Unavailable [phone] Reason for Referral Not Available Allergies, adverse [...] AREA(S) EVERY MORNING 2022-12-16 No Data Available Janzseat-Ifklgthoj-SS [id number] 3 TO 4 DROPS INTO [...] a day 2024-05-11 No Data Availab le Cympel Verio Flex System w/Device Kit USE DIRECTED [...] to weight 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 She will be traveling to [place] so she is to ask for emergency [...] to ENTCN to assist Unspecified atherosclerosis of [place] arteries of extremities, bilateral legs Active 2023-03-16 1 N/A StablestatinMD portal notes, I70.203 - Unspecified atherosclerosis of [place] arteries of extremities, bilateral legs Hemorrhoids Active [...] support person: son / Transfer member to [address] [place] [address]/ Quetiapine 50mg PO q12h PRN agitation/ Remind [...] Active 2023-10-0 8 N/A Orthopedic Surgery - [place] 250-Maury Godoy, DPM02/20/25Does not have PT in place after back surgery? Dr. Pascual (PCP) has ordered walker [facility] [id number] [place], [place] [phone] referral to OT or PT for Rolator [...] (do not use for phone, instead use 22764-70) [facility] ([place]) 04/07/2023 Noninfective gastroenteritis and colitis, unspecifiedRepeated fallsUnspecified [...] sitesSacroiliitis, not elsewhere classifiedAthscl heart disease of [place] cor art w unsp ang pctrsPeripheral vascular disease, unspecified New patient,40-59min; chronic exacerbation, 2 stable chronic or 1 acute illness add add modifier 95 for video (do not use for phone, instead use 83484-44) [facility]20[place] New patient,40-59min; chronic exacerbation, 2 stable chronic or 1 acute illness add add modifier 95 for video (do not use for phone, instead use 68468-08) [facility]20[place] New patient,40-59min; chronic exacerbation, 2 stable chronic or 1 acute illness add add modifier 95 for video (do not use for phone, instead use 41511-83) [facility]20[place] New patient,40-59min; chronic exacerbation, 2 stable chronic or 1 acute illness add add modifier 95 for video (do not use for phone, instead use 83985-57) [facility]20[place] New patient,40-59min; chronic exacerbation, 2 stable chronic or 1 acute illness add add modifier 95 for video (do not use for phone, instead use 40487-97) [facility]20[place] New patient,40-59min; chronic exacerbation, 2 stable chronic or 1 acute illness add add modifier 95 for video (do not use for phone, instead use 87895-15) [facility] 04[place]/2023 New patient,40-59min; chronic exacerbation, 2 stable chronic or 1 acute illness add add modifier 95 for video (do not use for phone, instead use 34950-08) [facility] 04/07/2023 New patient,40-59min; chronic exacerbation, 2 stable chronic or 1 acute illness add add modifier 95 for video (do not use for phone, instead use 10842-47) [facility] 04/07/2023 Unlisted special service; to be used for medical record reviews and reporting CPTII codes (1111F, etc) [facility] 07/01/2023 Other specified counseling Unlisted special service; to be used for medical record reviews and reporting CPTII codes (1111F, etc) [facility] 07/01/2023 Unlisted special service; to be used for medical record reviews and reporting CPTII codes (1111F, etc) [facility] ([place] 07/01/2023 No Data Available [facility] 08/10/2023 Body mass index (BMI) 45.0-4 9.9, adultPrediabetesMorbid (severe) obesity due to excess caloriesTinea unguiumLumbago with sciatica, left sideLumbago with sciatica, right sideOther chronic painOther intervertebral disc degeneration, lumbar region No Data Available [facility] 08/10/2023 No Data Available [facility] 08/10/2023 No Data Available [facility] 10/21/2023 Dorsalgia, unspecifiedOther chronic painMorbid (severe) obesity due to excess caloriesOther specified personal risk factors, not elsewhere classified No Data Available [facility] 10/21/2023 Estab. patient 30-39min; chronic exacerbation, 2 stable chronic or 1 acute illness add add modifier 95 for video, (do not use for phone, instead use 47366-09) [facility] 05/11/2024 Type 2 diabetes mellitus wit h diabetic chronic kidney diseaseChronic kidney disease, stage 3bRepeated fallsUnspecified hearing loss, left earTinnitus, left earUnspecified hemorrhoidsOther specified postprocedural statesLumbago with sciatica, left sideLumbago with sciatica, right sideOther chronic painOther intervertebral disc degeneration, lumbar regionIdiopathic chronic gout, unspecified site, without tophus (tophi)Polyosteoarthritis, unspecifiedSchizophrenia, unspecifiedAthscl heart disease of [place] cor art w unsp ang pctrsType 2 diabetes w diabetic peripheral angiopath w/o gangreneUnsp athscl [place] arteries of extremities, bilateral legsChronic obstructive pulmonary [...] (do not use for phone, instead use 94462-66) [facility] 05[place]11/2024 Estab. patient 30-39min; chronic exacerbation, 2 stable chronic or 1 acute illness add add modifier 95 for video, (do not use for phone, instead use 67604-17) [facility] 05/11/2024 Estab. patient 30-39min; chronic exacerbation, 2 stable chronic or 1 acute illness add add modifier 95 for video, (do not use for phone, instead use 42145-09) [facility] 05/11/2024 Estab. patient 30-39min; chronic exacerbation, 2 stable chronic or 1 acute illness add add modifier 95 for video, (do not use for phone, instead use 24580-95) [facility] 05/11/2024 Estab. patient 30-39min; chronic exacerbation, 2 stable chronic or 1 acute illness add add modifier 95 for video, (do not use for phone, instead use 43924-27) [facility] 05/11/2024 Estab. patient 30-39min; chronic exacerbation, 2 stable chronic or 1 acute illness add add modifier 95 for video, (do not use for phone, instead use 92669-24) [facility] 05/11/2024 No Data Available [facility] 05/14/2024 Type 2 diabetes mellitus wit h diabetic chronic kidney diseaseChronic kidney disease, stage 3b No Data Available [facility] 05/14/2024 No Data Available [facility] 06/20/2024 Type 2 diabetes mellitus wit h diabetic chronic kidney diseaseChronic kidney disease, stage 3b No Data Available [facility] 06/20/2024 Unlisted special service; to be used for medical record reviews and reporting CPTII codes (1111F, etc) [facility] 09/04/2024 Other specified counseling Unlisted special service; to be used for medical record reviews and reporting CPTII codes (1111F, etc) [facility] ([place]) 09/04/2024 Unlisted special service; to be used for medical record reviews and reporting CPTII codes (1111F, etc) [facility], [place] 09/04/2024 Estab. patient 10-29min; 1 minor problem; add add modifier 95 for video, modifier 93 for phone [facility] 12/18/2024 Type 2 diabetes mellitus wit h diabetic chronic kidney diseaseChronic kidney disease, stage 3bMorbid (severe) obesity due to excess caloriesBody mass index (bmi) 50-59.9 , adult Estab. patient 10-29min; 1 minor problem; add add modifier 95 for video, modifier 93 for phone [facility], [place] 12/18/2024 Estab. patient 10-29min; 1 minor problem; add add modifier 95 for video, modifier 93 for phone [facility], [place] 12/18/2024 Estab. patient 20-29min; 1 stable chronic or 2 minor; add add modifier 95 for video, modifier 93 for phone [facility], [place] 02/18/2025 Noninfective gastroenteritis and colitis, unspecifiedRepeated fallsUnspecified [...] to conditions classified elsewhereAthscl heart disease of [place] cor art w unsp ang pctrsPeripheral vascular disease, unspecifiedUnsp athscl [place] arteries of extremities, bilateral legsChronic obstructive pulmonary [...] 95 for video, modifier 93 for phone [facility] [place] 02/18/20[place] Estab. patient 20-29min; 1 stable chronic or 2 minor; add add modifier 95 for video, modifier 93 for phone [facility] 02/18/2025 Estab. patient 20-29min; 1 stable chronic or 2 minor; add add modifier 95 for video, modifier 93 for phone [facility] 02/18/2025 Estab. patient 20-29min; 1 stable chronic or 2 minor; add add modifier 95 for video, modifier 93 for phone [facility] 02/18/2025 Estab. patient 20-29min; 1 stable chronic or 2 minor; add add modifier 95 for video, modifier 93 for phone [facility] [place] 02/18/2025 Estab. patient 20-29min; 1 stable chronic or 2 minor; add add modifier 95 for video, modifier 93 for phone [facility] 02/18/2025 Estab. patient 20-29min; 1 stable chronic or 2 minor; add add modifier 95 for video, modifier 93 for phone [facility] 02/18/2025 Estab. patient 10-29min; 1 minor problem; add add modifier 95 for video, modifier 93 for phone [facility] 02/20/2025 Morbid (severe) obesity due to excess caloriesDorsalgia, unspecifiedOther chronic painSpinal stenosis, lumbar region without neurogenic claudicationPain disorder exclusively related to psychological factors Estab. patient 10-29min; 1 minor problem; add add modifier 95 for video, modifier 93 for phone [facility] [place] 02/20/2025 Vital Signs Date [...] tive Time Current Smoking Status Never smoker 2025-05-15 8 Sex Female Gender identity Woman History of Procedures Procedures Service Procedure code Service date Servicing provider Phone# New patient,40-59min; chronic exacerbation, 2 stable chronic or 1 acute illness add add modifier 95 for video (do not use for phone, instead use 73198-02) 20569 2023-04-07 No Data Available No Data Availa [...] reviews and reporting CPTII codes (1111F, etc) 30273 2023-07-01 No Data Available No Data Availa ble SBP < 130 (3074F) 3074F 2023-07-01 No Data Available No Data Available DBP <80 (3078F) 3078F 2023-07-01 No Data Available No Data Available No Data Available 37849 2023-08-10 No Data Available No Data Available Medication List Documented (1159F) 1159F 2023-08-10 No Data Available No Data Lena ilable BMI obtained (3008F) 3008F 2023-08-10 No Data Availab le No Data Available No Data Available 57577 2023-10-21 No Data Available No Data Available Medication List Documented (1159F) 1159F 2023-10-21 No Data Available No Data Lena ilable Estab. patient 30-39min; chronic exacerbation, 2 stable chronic or 1 acute illness add add modifier 95 for video, (do not use for phone, instead use 41366-61) 21976 2024-05-11 No Data Available No Data Availa [...] Available No Data Available No Data Available 54253 2024-05-14 No Data Available No Data Available Medication List Documented (1159F) 1159F 2024-05-14 No Data Available No Data Lena ilable No Data Available [id number] 2024-06-20 No Data Available No Data Available Medication List Documented (1159F) 1159F 2024-06-20 No Data Available No Data Lena ilable Unlisted special service; to be used for medical record reviews and reporting CPTII codes (1111F, etc) 01637 2024-09-04 No Data Available No Data Availa ble SBP >= 140 3077F 2024-09-04 No Data Available No Data Available DBP >=90 3080F 2024-09-04 No Data Available No Data Available Estab. patient 10-29min; 1 minor problem; add add modifier 95 for video, modifier 93 for phone 12661 2024-12-18 No Data Available No Data Availa ble Medication List Documented (1159F) 1159F 2024-12-18 No Data Available No Data Lena ilable BMI obtained (3008F) 3008F 2024-12-18 No Data Availab le No Data Available Estab. patient 20-29min; 1 stable chronic or 2 minor; add add modifier 95 for video, modifier 93 for phone 45301 2025-02-18 No Data Available No Data Availa [...] 95 for video, modifier 93 for phone 18839 2025-02-20 No Data Available No Data Availa [...] rheumatoid factor, multiple sitesAtherosclerotic heart disease of [place] coronary artery with unspecified angina pectoris;Peripheral vascular [...] discChronic gouty arthritis;Generalized osteoarthritisSchizophreniaAtherosclerotic heart disease of [place] coronary artery with unspecified angina pectoris;Peripheral vascular disease, unspecifiedUnspecified atherosclerosis of [place] arteries of extremities, bilateral legsChronic obstructive pulmonary [...] to conditions classified elsewhereAtherosclerotic heart disease of [place] coronary artery with unspecified angina pectoris;Peripheral vascular disease, unspecifiedUnspecified atherosclerosis of [place] arteries of extremities, bilateral legsChronic obstructive pulmonary [...] - also [place]ocr [place] [facility] [place] to podiatry per pt request.Also needs [...] area that had available staff.Pt to call [facility] and get name of PT providers in her area that are covered.Will investigate weight loss clinics.Pt to look for back exercises on YouTube, activity as tolerated.Will FU.BMI 49.25send to weight clinic but not [place]erral for weight clinic - also [place] [facility] [place]23Have not been able to find clinic that is covered by [facility] in er area. Pt to call [facility] and find list of names [...] portal notes, I70.203 - Unspecified atherosclerosis of [place] arteries of extremities, bilateral legs continues to take albuterol sulfatePlease call CB ifIncreased SOB,or if patient falls.Pain that radiates to vaginaHas seen PCPhas referral to GI but is going to cancelEd not to cancel, get transportBMI 52.08send to weight clinic but not [place] 08/[place]/2023referral for weight clinic - also [place]ocr [place] [facility] [place]Have not been able to find clinic that is covered by [facility] in er area. Pt to call [facility] and find list of names [...] area that had available staff.Pt to call [facility] and get name of PT [...] modifier 95)Continue to see PCP. [facility] [...] our conversation of three days ago. 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 Follow-up with [facility] as needed for any acute or [...] our conversation of three days ago. 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 She will be traveling to [place] so she is to ask for emergency traveling supply, which won't be much as she will be back mid July.Refilled w instructions to pharmacy.Will FU after mid-july. 2024-12-18 08:09:04 Estab. patient 10-29 min; 1 minor problem; add add modifier 95 for video, modifier 93 for phoneContinue to see PCP. Follow-up with [facility] as needed for any acute or [...] our conversation of three days ago. 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 She will be traveling to [place] so she is to ask for emergency [...] for weight clinic - also endocr for [facility] [place]/21/2023Have not been able to find clinic that is covered by [facility] in er area. Pt to call [facility] and find list of names [...] obtained (3008F)Continue to see PCP. [facility] any acute or disease education needs that may arise.PSYCH CONTINGENCY PLANLast updated: 02/18/2025Schizoaffective DisorderMember to call for the following symptoms: Anxiety/ Hallucinations/ Mistrust / inability to relax/ Restlessness/ Worsening paranoia or delusions Planned intervention: Contact support person: son / Transfer member to [address] [place] [address]/ Quetiapine 50mg PO q12h PRN agitation/ Remind [...] portal notes, I70.203 - Unspecified atherosclerosis of [place] arteries of extremities, bilateral legs Stablealbuterol sulfateMonitor [...] with GLP1 and [facility]Maury Godoy DPM/08/08Does not have PT in place after back surgery? Dr. Pascual (PCP) has ordered walker [facility] [id number] [place], [place] [phone] referral to OT or PT for Rolator [...] product to buy: - 2025-02-20 has [address]
--- OUTSIDE RECORDS SUMMARY | 2025-06-10 11:10 | XMS_ITS | Encounter Summary ---
Author Organization [facility], Address [address] [place] [address] Phone Care Team Providers Care Market Risk Specialist Name Role Phone Violeta Boo MD Primary Care Provide r Encounter Details Date Type Department Care Team (Late Contact Info) Description 03/15/2022 Documentation Only [facility] [address] [place] [address] Shailesh Vallejo MD [address] [place] [address] [place] [address] Social History Tobacco Use Types [...] [facility] [address] [place] [address] Shailesh Vallejo MD [address] [place] [address] [place] [address] documented as of this encounter Visit Diagnoses Not on filedocumented in this encounter Care Teams Market Risk Specialist Relationship Specialty Start Date End Date Violeta Boo MD [address] [place] [phone] PCP - General Internal Medicine 03/21/23 documented as of this encounter
--- OUTSIDE RECORDS SUMMARY | 2025-06-10 11:10 | XMS_ITS | Encounter Summary ---
Author Organization [facility] Address [address] [place] [address] [address] [place] [address] Care Team Providers Care Protozoology Teacher Name Role Phone Violeta Boo MD Primary Care Provide r Reason for Visit * Reason Comments Med Refill Encounter Details Date Type Department Care Team (Late st Contact Info) Description 02/13/2023 Refill [facility] [address] [place], [place] [phone] Cassy Starks MD [address] [place] [address] Social History Tobacco Use Types Packs/Day Years [...] as of this encounter Plan of Treatment Not on file documented as of this encounter Visit Diagnoses Not on filedocumented in this encounter Care Teams Protozoology Teacher Relationship Specialty Start Date End Date Violeta Boo MD [address] [place] [address] PCP - General Family Medicine 05/21/22 documented as of this encounter
--- OUTSIDE RECORDS SUMMARY | 2025-06-10 11:10 | XMS_ITS | Clinical Summary ---
Author Organization 175 [facility] Address [address] [place] [address] Phone Care Team Providers Care Fur Examiner Name Role Phone Zheng Boo MD Primary [...] Chronic kidney disease, stag e III (moderate) ([facility] V24, [facility] V28) 10/08/2024 Essential hypertension, benign 10/08/2024 Hyperlipidemia 10/08/2024 Osteopenia 10/08/2024 Primary osteoarthritis of both knees 10/08/2024 Psychotic disorder ([facility] V24, [facility] V28) Tubular adenoma of colon 10/08/2024 [...] appointment Onychomycosis 03/08/2023 Type 2 diabetes mellitus ([facility] V24, [facility] V 28) 01/31/2023 Otitis externa 12/16/2022 [...] Chronic gouty arthritis 09/08/2018 Episodic mood disorder ([facility] V24) 08/08/2018 Generalized osteoarthritis 08/08/2018 Morbid obesity ([facility] [place], [facility] V28) 2017 Overview (10/08/2024): Last Assessment & Plan: Discussed re weight reduction options including exercise, life style modifications, diet, referral to medical staff specialist. Discussed re lower calorie intake, increase [...] Care Team (Late st Contact Info) Description 06/12/2025 10:30 AM EDT Consult Orthopedic Surgery [facility] [address] [phone] Cortez Malik MD [address] [address] 07/02/2025 1:00 PM EDT Office Visit Orthopedic Surgery [facility] [address] [phone] Maury Godoy DPM [address] [address] Health Maintenance Due Date Last Done Comments Breast Cancer Screening 1952 Diabetes: Annual Foot Exam 1962 Diabetes: Annual Retina Eye Exam 1962 RSV Immunization Adult Patients (1 - Risk 60-74 years 1-dose series) 2012 Colorectal Cancer Screening: Colonoscopy 10/24/2022 Falls Risk Assessment 10/24/2022 Hepatitis C Screening 10/24/2022 Medicare Annual Wellness Visit 10/24/2022 Osteoporosis Screening (Bone Density Screening) 10/24/2022 Social Influencers of Health Screening 10/24/2022 DTaP,Tdap,and Td Vaccines (2 - Td or Tdap) 01/29/2023 01/29/2013 Diabetes: Annual Urine Albumin-Creatinine Ratio (uACR) 12/17/2023 Diabetes: Blood Sugar Control Test (HGBA1C) 12/17/2023 08/09/2022 Depression Screening 11/14/2024 COVID-19 Vaccine (6 - Pfizer risk 2023- season) 2025 08/13/2024, 09/07/2023, 08/26/2022, Additional history [...] Results * Annual BMP Blood Test (03/01/2024) Pathologist [facility] Annual BMP Blood Test Abstracted [facility] Provider HEALTH MAINTENANCE Final Result * Hemoglobin A1c (08/09/2022) Pathologist [facility] Hemoglobin A1C 0.0 % Comment:No Interpretation, A bstracted Blood Venous blood specimen / Unknown [facility] Provider LAB BLOOD ORDERABLES Almaz l Result * Lipid panel (03/15/2022) Pathologist [facility] LDL/HDL Ratio 0 Comment:No Interpretation, A bstracted Triglycerides 0 mg/dL Comment:No Interpretation, A bstracted Cholesterol 0 mg/dL Comment:No Interpretation, A bstracted HDL 0 mg/dL Comment:No Interpretation, A bstracted LDL Cholesterol 0 mg/dL Comment:No Interpretation, A bstracted Blood Venous blood specimen / Unknown [facility] Provider LAB BLOOD ORDERABLES Almaz l Result from Last 3 Months or Most Recently Relevant to Health Maintenance Insurance [employer] MED[employer]ARE [place]ICA[place] Care Teams Fur Examiner Relationship Specialty Start Date End Date Zheng Boo MD [address] [place] [phone] PCP - General 03/29/23
== END 2025-06-10 10:36 | disposition home or self-care (01) ==
LOC: HO.HOS 10:09
PROVIDERS: PCP Internal Medicine; Visit Provider Orthopaedic Surgery
DX: M17.0 Bilateral primary osteoarthritis of knee (principal)
CPT/HCPCS: 20610; 99213

== ENCOUNTER → 2025-06-10 10:08 | Outpatient (BNVA) | payer OTHER, SELFPAY | PROVIDERS: PCP Internal Medicine; Visit Provider Orthopaedic Surgery | DX: M17.0 Bilateral primary osteoarthritis of knee (principal) | CPT/HCPCS: 20610; 99212; J0665; J1100; J2003 ==

== ENCOUNTER 2025-06-19 15:06 | Outpatient (RCR) | payer OTHER, SELFPAY | END 2025-07-19 13:21 | disposition home or self-care (01) | LOC: HO.PT 15:06 | PROVIDERS: PCP Internal Medicine; Visit Provider Internal Medicine | DX: M25.511 Pain in right shoulder (principal); M25.512 Pain in left shoulder | CPT/HCPCS: 97110; 97163 ==

== ENCOUNTER 2025-07-17 10:14 | Outpatient (AMB) | payer OTHER, SELFPAY ==
[2025-07-17 10:17] VITALS: BP 128/80; PULSE 68; O2SAT 96; BMI 47.1
--- NOTE | 2025-07-17 10:17 | MHC.OFFVIS ---
Vital Signs 07/17/25 10:17 Height 5 ft 3 in Weight 266 lb BMI 47.1 BP 128/80 Blood Pressure Location Lt brachial Position Sitting Pulse 68 Pulse Source Pulse Oximeter Pulse Oximetry (%) 96 Oxygen Delivery Method Room Air Intake Visit Reasons: COPD Intake Note: pt is here for follow up and states she is doing well with her breathing, pt needs refill on albuterol and flonase and albuterol for nebulizer. Primary Health Care Nurse Required: Yes Primary Health Care Nurse Services: Primary Health Care Nurse Present Primary Health Care Nurse Name: Brittany Muir RMA Allergies peanut (PEANUT) Allergy (Severe, Verified 07/17/25 10:28) ITCHY, SWELLING seafood Allergy (Severe, Verified 07/17/25 10:28) Rash tomato (TOMATO) Allergy (Severe, Verified 07/17/25 10:28) ITCHY, SWELLING aspirin (ASA) Allergy (Intermediate, Verified 07/17/25 10:28) ITCHY,ANXIOUS, itching, rash Iodinated Contrast Media (IV CONTRAST) Allergy (Intermediate, Verified 07/17/25 10:28) HIVES plantain (PLANTAIN) Allergy (Intermediate, Verified 07/17/25 10:28) ITCHY/SWELLING Medication List - Last Reconciled 07/17/25 by Jaden Srivastava MD acetaminophen 1,000 mg PO Q8H PRN albuterol sulfate 90 mcg/actuation 2 puffs inhalation Q4-6H PRN 30 days albuterol sulfate 2.5 mg inhalation Q4-6H PRN allopurinol 300 mg PO QAM atorvastatin 80 mg PO DAILY calcium carbonate-vitamin D3 600 mg-10 mcg (400 unit) 1 tab PO BID clotrimazole 1% appl topical DAILY cyanocobalamin (vitamin B-12) 1,000 mcg sublingual DAILY cyclobenzaprine 5 mg PO TID PRN 30 days diclofenac sodium 1% 4 grams topical QID diphenhydramine HCl 2% (Benadryl) 1 appl topical BID doxepin 25 mg PO BEDTIME estradiol 0.01%(0.1mg/gram) grams vaginal ezetimibe 10 mg PO QAM ferrous sulfate 325 mg PO QAM fexofenadine 180 mg PO QAM fluticasone propion-salmeterol 250-50 mcg/dose 1 ea PO BID fluticasone propionate 50 mcg/actuation 2 sprays intranasal DAILY 30 days gabapentin 600 mg (2 x 300 mg) PO TID 90 days hydrochlorothiazide 12.5 mg PO QAM inhalational spacing device As directed lancets As directed latanoprost 0.005% 1 drp ophthalmic (eye) BEDTIME losartan 100 mg PO QAM melatonin 1 mg PO BEDTIME PRN metoprolol succinate ER 50 mg PO DAILY montelukast 10 mg PO QPM nystatin 1 appl topical BID olanzapine 20 mg PO BEDTIME olanzapine 15 mg PO BEDTIME Otezla (apremilast) 30 mg PO BID NS oxycodone 5 mg PO TID PRN 4 days pantoprazole 40 mg PO DAILY semaglutide (Ozempic) 0.25 mg subcut QWEEK sertraline 100 mg PO DAILY sertraline 50 mg PO QAM [thumb spica As directed] Do you need a note to return to daycare/school/sports/work: No HPI HPI COPD: Details: This 75 years old very pleasant female, who has morbid obesity along with multiple comorbidities. She suffers from restrictive as well as obstructive pulmonary disease and allergic rhinitis. Comes for follow-up after 6 months. She has been fairly stable without any acute exacerbation Complains of frequent bouts of cough especially at night . And gets short of breath on exertion. She has impaired locomotion, and walks around with the walker . She is trying to lose weight. This time lost about. 3 lb in the last 6 months She is joining weight management program at [facility]. [facility] Medical History Myocardial infarct Pain in left shoulder Screening for viral disease COPD (chronic obstructive pulmonary disease) Restrictive lung disease Allergic rhinitis ZOEY (obstructive sleep apnea) Edema PVD (peripheral vascular disease) On beta prashant at home Osteopenia Gout Osteoarthritis Rheumatoid arthritis Anemia Panic attacks Anxiety Schizophrenia Pre-diabetes CKD (chronic kidney disease), stage III GERD (gastroesophageal reflux disease) Fatty liver Myocardial infarction CAD (coronary artery disease) Angina pectoris HTN (hypertension) Morbid obesity ZOEY treated with BiPAP COPD (chronic obstructive pulmonary disease) Allergic rhinitis Surgical History History of colonoscopy (~2021) History of lumpectomy of right breast (06/21/22) History of bladder suspension procedure History of esophagogastroduodenoscopy (EGD) Hx of colonoscopy History of hysterectomy History of tubal ligation History of lumpectomy of right breast Family History Mother Leukemia Brother Colon cancer Brother Leukemia Sister Breast cancer Sister Vaginal cancer Sister Breast cancer Sister Breast cancer Daughter Thyroid disease Social History Alcohol intake: never Patient Tobacco Use Status: Never used Tobacco Second Hand Smoke Exposure: No Female Reproductive History Menstrual Age of Menarche: 13 Review of Systems Const All systems reviewed & are unremarkable except as noted in HPI and below ENT Reports nasal congestion (CONTROLLED WITH MEDS ) Card Denies chest pain, Denies leg edema and Denies dyspnea on exertion Resp Reports cough (MILD ), Denies dyspnea on exertion and Denies wheezing GI Reports no additional complaints Musc Reports no additional complaints Neuro Reports no additional complaints Aller/Immun Denies wheezing Physical Exam Vital Signs: Last Vital Signs Pulse 68 07/17/25 10:17 BP 128/80 07/17/25 10:17 Pulse Ox 96 07/17/25 10:17 Oxygen Delivery Method Room Air 07/17/25 10:17 BMI result Body Mass Index 47.1 Const General: comfortable, no acute distress, alert and awake Orientation/consciousness: patient oriented x3 HEENT Head: Yes normal to inspection General nose exam: No nasal polyps present, No nasal discharge present and Other nasal findings present (Mild nasal congestion) Face and sinus: Yes sinuses nontender Mouth: oropharynx normal Throat: No posterior oropharynx normal (Oropharynx is narrow and crowded, Mallampati class 3) Eyes General: appearance normal, both eyes and all related structures Neck Neck: Yes normal visual inspection, Yes no lymphadenopathy, Yes trachea midline and Yes no JVD Thyroid: Thyroid normal Chest Chest palpation & inspection: normal inspection of the chest, normal palpation of entire chest wall and no tenderness Resp Other: Percussion note is resonant, slightly diminished because of the thick chest wall. Breath sounds are distant with prolonged expiratory phase. No wheezes or rhonchi are heard . Cardio Palpation: PMI not normal (Not palpable) Rate: regular rate Rhythm: regular rhythm Heart sounds: no gallops and no murmurs GI Palpation (GI): Soft to palpation, nontender, No hepatosplenomegaly present, no masses and Other GI palpation findings present (Abdomen is obese and protuberant) Auscultation: normal bowel sounds Back/Spine/Pelvis Thoracic/Lumbar Spine: thoracic and lumbar spine normal to inspection and thoraco-lumbar ROM limited Skin General skin exam: no rashes or lesions noted Neuro General: patient oriented x3 and no focal motor deficits Cranial nerves: Yes CN's II-XII intact bilaterally Extrem General: Yes normal to inspection, Yes no clubbing, cyanosis or edema and Yes no calf tenderness Psych Appearance: grossly normal and well kempt Speech and movement: Normal speech and movement present Assessment & Plan Assessment & Plan (1) Morbid obesity: Comment: She remains morbidly obese, because she cannot do any exercise , she has lost a few lb of weight as compared to last time. She remains on semaglutide injections and is now planning to join the weight management program at [facility]. Code(s): E66.01 - Morbid (severe) obesity due to excess calories Category: Medical Plan: Encouraged to keep on losing weight . (2) ZOEY (obstructive sleep apnea): Comment: SHE HAS PAST HISTORY OF OBSTRUCTIVE SLEEP APNEA . HAS BEEN USING CPAP IN THE PAST. SHE HAD A POLYSOMNOGRAM STUDY IN THE SLEEP LAB IN MAY OF 2024 . THIS STUDY CAME BACK NEGATIVE, MOST LIKELY A RESULT OF LOSING SIGNIFICANT WEIGHT. Code(s): G47.33 - Obstructive sleep apnea (adult) (pediatric) Category: Medical Plan: ADVISED TO KEEP. ON LOSING MORE WEIGHT ADVISED TO ALWAYS SLEEP IN THE LATERAL POSITION. (3) Restrictive lung disease: Comment: MODERATE RESTRICTIVE PULMONARY DISORDER RELATED TO MORBID OBESITY. Code(s): J98.4 - Other disorders of lung Category: Medical Plan: AGAINST STRESS THAT THE WEIGHT REDUCTION WOULD BE VERY HELPFUL (4) COPD (chronic obstructive pulmonary disease): Comment: SHE HAS SYMPTOMS CONSISTENT WITH COPD. BUT THE SYMPTOMS MAY BE MORE DUE TO RESTRICTIVE PULMONARY DISORDER. Patient claims that she has been doing okay, denies any wheezing attacks. Denies any shortness of breath because she does not walk much anyway Main issue is intermittent dry cough, which is much decreased when she uses her bronchodilator therapy. Code(s): J44.9 - Chronic obstructive pulmonary disease, unspecified Category: Medical Plan: Continue to use Advair 250-51 inhalation b.i.d.. Albuterol solution in the nebulizer Q 6 hours p.r.n. when at home. Albuterol HFA 2 puffs Q 6 hours p.r.n. when outdoors (5) Allergic rhinitis: Comment: THIS IS A CHRONIC AND ONGOING PROBLEM, CONTROLLED AT PRESENT. Code(s): J30.9 - Allergic rhinitis, unspecified Category: Medical Plan: CONTINUE TO USE FLONASE-50 1 OR 2 INHALATIION IN EACH NOSTRIL ONCE A DAY FEXOFENADINE 100 MG Q DAILY PRN Medications: Changed From fluticasone propion-salmeterol 250-50 mcg/dose 1 ea PO BID 60 ea 5RF To fluticasone propion-salmeterol 250-50 mcg/dose 1 ea PO BID 60 ea 5RF COPD 30 days Refilled albuterol sulfate 90 mcg/actuation 2 puffs inhalation Q4-6H PRN 8.5 grams 5RF shortness of breath or wheezing 30 days Coding Level of Care Code Est Pt Level 4 (80192) Diagnoses Morbid obesity E66.01 ZOEY (obstructive sleep apnea) G47.33 Restrictive lung disease J98.4 COPD (chronic obstructive pulmonary disease) J44.9 Allergic rhinitis J30.9
--- OUTSIDE RECORDS SUMMARY | 2025-07-17 11:46 | XMS_ITS ---
Author Name Shrestha KNOWLEDGE ARCHITECT,TRAINS DISPATCHER SUPERVISOR,FN P,GROUND CREW SUPERVISOR, Maddi Address [address] [place] [id number] Phone [phone] [facility] Care Team Providers Care [employer]ank Workman Name Role Phone Maddi Shrestha Unavailable [phone] SARAH ROMEO Unavailable [phone] Sarah Romeo Unavailable [phone] Unavailable Unavailable [phone] Unavailable Unavailable Unavailable Unavailable Unavailable Unavailable Cristo Garcia Unavailable [phone] Unavailable Unavailable [phone] Gideon Frost Unavailable [phone] Unavailable Unavailable Unavailable Unavailable Unavailable Unavailable Unavailable Unavailable [phone] WALTER ROBERT Unavailable [phone] Gabrielle Nirav Unavailable [phone] Unavailable Unavailable [phone] Unavailable Unavailable [phone] Reason for Referral Not Available Allergies, adverse reactions, alerts Allergen Type Reaction Severity Status Onset Date Aspirin Allergy to substance (disorder) Unknown Active N/A Iodinated Contrast Media Allergy to subs tance (disorder) Unknown Active N/A History of medication use Medication Class Instructions Start Date End Date Cetirizine 10 mg Tab TAKE 1 TABLET BY MO [facility] ONCE 2 HOURS BEFORE EXAM WITH METHYLPREDNISOLONE 2022-10-28 2023-04-07 methylPREDNISolone 32 mg Tab TAKE 1 TABL ET BY MOUTH 12 HOURS BEFORE EXAM AND TAKE 1 TABLET 2 HOURS BEFORE EXAM 2022-10-28 2023-04-07 Sertraline 50 mg Tab TAKE 1 TABLET BY MO [facility] EVERY MORNING WITH 100 MG TABLET 2022-08-25 [...] THE MORNING AND IN THE EVENING 2022-03-10 2025-07-03 Diclofenac Sodium 1 % Gel APPLY TOPICALL [...] DAILY AT BEDTIME NEEDED for SLEEP 2022-08-25 2025-07-03 Metoprolol Succinate ER 50 mg Tab ER [...] EVERY OTHER DAY IN THE MORNING 2022-09-21 2025-07-03 Hydroxychloroquine Sulfate 200 mg Tab TAKE 1 [...] AREA(S) EVERY MORNING 2022-12-16 No Data Available Gjdbbagc-Izipirmlq-CT [id number] 3 TO 4 DROPS INTO [...] mg Cap TAKE 1 CAPSULE BY [facility] AT BEDTIME 2023-05-20 No Data [...] Therapy Pack USE DIRECTED ON PACKAGE 2025-02-01 2025-07-03 Clindamycin Phos (Twice-Daily) 1 % Gel APPLY TOPICALLY TO THE AFFECTED AREA(S) TWICE DAILY AFTER WASH OF benzoyl peroxide 2025-01-15 No Data Available Na Sulfate-K Sulfate-Mg Sulf 17.5-3.13-1.6 GM/177ML Solution FOLLOW INSTRUCTION SHEET GIVEN TO YOU AT YOUR DOCTOR'S OFFICE DIRECTED. 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 Chronic diarrhea Resolved 2023-03-15 5 2025-07-03 Almost every dayTrial of cutting out dairy.Pharm [...] is already managing the situation.Will F/U.Will reassure pt.07/03/25:I discussed with member checking tumor markers as a screening method is not necessarily good practice as it can be affected by other pathology such as inflammation in the body secondary to her OA, RA, DM, obesity, stress. Basic labs like CBC are always good starting point. Discussed genetic test kits, but did advise that these kits are not always covered by insurance. I also advised that given the family history, she is already aware that she is at a higher risk for certain cancers and genetic testing may not provide much more value. Advised on diet and lifestyle modifications that can help mitigate risks including anti-inflammatory diet, weight loss with regular exercise as tolerated, stress management, staying up to date with screenings, and chronic care management. She has appt with a new GI on 07/16/25 in which a new colonoscopy date will be determined. Frequent falls Active 2023-03-15 5 N/A Trips over herself or feet are not strong enough.Falls almost every day, seven times these past six days.Sending a shower chair07/03/25:-reports frequent falls with last fall on her [birth year]-advised on sitting for 2-3 minutes before movement. Fall precautions reinforced. Advised having walker with her at all times for fall prevention. -recommended scheduling appt with PCP for medication review and research and development scientist for further eval such as possible echo; PT referral-Specialist referral placed today for neurology for further eval given her ongoing symptoms (dizziness) Type 2 diabetes mellitus wit h stage 3b chronic kidney disease, Type 2 diabetes mellitus with hyperlipidemia, Type 2 diabetes mellitus with diabetic peripheral angiopathy without gangrene Active 2023-03-15 5 N/A HA1c 5.9% (08/22/24)Ha1c: 5.7% (05/15/2025- outside care)eGFR: 37 (05/30/2025-outside care)Total chol: 140, T, HDL: 29, LDL: 69 (05/30/2025-outside care)Rx: atorvastatin, ezetimibe, ozempic- Low fat/cholesterol, low carb, low glycemic diet & regular exercise (as tolerated) recommended.- Fasting FBG goal per ADA between 80 and 130 mg/dL- HA1c goal at least <8.0%; ideally <7.0%- Continue to follow up with PCP/Specialists. Rheumatoid arthritis without rheumatoid factor, multiple sitesSacroiliitis, [...] continue with PCP. Chronic bilateral low back pain with bilateral sciatica;Bulging lumbar disc Active 2023-03-15 5 N/A Falls frequently.Ed re caution, using DMEs.Will FU re pain and walking. Sending PT.UPDATE 08/10/2023Has not gotten physical therapy. Will send again. 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 Exercise encouraged. Chronic back painLumbar spin al stenosis Somatoform pain disorder Active 0 8 N/A Orthopedic Surgery [facility] 250-Maury Godoy DPM02/20/25Does not have PT in place after back surgery? Dr. Pascual (PCP) has ordered azar [address] [phone] referral to OT or PT for Tanesha askew.back surgery (nerve ablation) 02/01/25- Dr. Pena was [...] PT order if PCP unable to place Essential hypertension Active 2025-06-2 0 N/A Rx: losartan 100mg daily, metoprolol 50 mg daily, Chlorthalidone 25 mg daily- Monitor blood pressure at home and keep BP diary.- Low sodium diet and regular exercise as recommended and tolerated- BP Goal <130/80- Continue to follow up with PCP/Specialist- BP: 138/89 - (7/2/25-outside care) Dizziness Active 2 0 N/A 07/03/25:She reports chronic hx of dizziness for about 1 year which she has mentioned to her PCP, but feels it is not being investigated. Per member, she has requested referral to neurology, but PCP has declined referral. -discussed scheduling appt with PCP for medication review-discussed following up with her research and development scientist for eval, i.e need for echo-advised on sitting for 2-3 minutes before movement. Advised having walker with her at all times for fall prevention-Specialist referral placed today for neurology for further eval given her ongoing symptoms Osteoarthritis Active 2 0 N/A 07/03/25:Recent fall on 05/10/25. She saw her PCP after this and xrays of b/l hand, b/l shoulder and left foot were ordered all of which showed no acute fractures (as viewed in Outside Care). However, left foot xr shows Enthesopathy, Achilles tendon; right and left hand xr show OA and Widening of scapholunate interval could indicate scapholunate ligament tear; and OA of shoulder. -Continue plan of care and conservative measures for comfort and pain mgt-Follow up with PCP for PT/ortho referral. Encounters Encounters Type Facility Date of Service Diagnosis/Co mplaint New patient,40-59min; chronic exacerbation, 2 stable chronic or 1 acute illness add add modifier 95 for video (do not use for phone, instead use [id number]) [facility] [place]23 Noninfective gastroenteritis and colitis, unspecifiedRepeated fallsUnspecified [...] sitesSacroiliitis, not elsewhere classifiedAthscl heart disease of jamul cor art w unsp ang pctrsPeripheral vascular disease, unspecified New patient,40-59min; chronic exacerbation, 2 stable chronic or 1 acute illness add add modifier 95 for video (do not use for phone, instead use [id number]) [facility] ([place] New patient,40-59min; chronic exacerbation, 2 stable chronic or 1 acute illness add add modifier 95 for video (do not use for phone, instead use 21960-53) [facility] New patient,40-59min; chronic exacerbation, 2 stable chronic or 1 acute illness add add modifier 95 for video (do not use for phone, instead use 73211-24) [facility] New patient,40-59min; chronic exacerbation, 2 stable chronic or 1 acute illness add add modifier 95 for video (do not use for phone, instead use 74819-60) [facility] New patient,40-59min; chronic exacerbation, 2 stable chronic or 1 acute illness add add modifier 95 for video (do not use for phone, instead use [id number]) [facility] New patient,40-59min; chronic exacerbation, 2 stable chronic or 1 acute illness add add modifier 95 for video (do not use for phone, instead use 88753-07) [facility] New patient,40-59min; chronic exacerbation, 2 stable chronic or 1 acute illness add add modifier 95 for video (do not use for phone, instead use 73598-65) [facility] New patient,40-59min; chronic exacerbation, 2 stable chronic or 1 acute illness add add modifier 95 for video (do not use for phone, instead use 12940-61) [facility] [place]/2023 Unlisted special service; to be used for medical record reviews and reporting CPTII codes (1111F, etc) [facility] [place] 07/01/2023 Other specified counseling Unlisted special service; to be used for medical record reviews and reporting CPTII codes (1111F, etc) [facility]23 Unlisted special service; to be used for medical record reviews and reporting CPTII codes (1111F, etc) [facility]/2023 No Data Available [facility] [place] 08/10/2023 Body mass index (BMI) 45.0-4 9.9, adultPrediabetesMorbid (severe) obesity due to excess caloriesTinea unguiumLumbago with sciatica, left sideLumbago with sciatica, right sideOther chronic painOther intervertebral disc degeneration, lumbar region No Data Available [facility] [place] 08/10/2023 No Data Available [facility] [place] 08/10/2023 No Data Available [facility] [place] 10/21/2023 Dorsalgia, unspecifiedOther chronic painMorbid (severe) obesity due to excess caloriesOther specified personal risk factors, not elsewhere classified No Data Available [facility] [place] 10/21/2023 Estab. patient 30-39min; chronic exacerbation, 2 stable chronic or 1 acute illness add add modifier 95 for video, (do not use for phone, instead use 71748-49) [facility] [place] 05[place]11/2024 Type 2 diabetes mellitus wit h diabetic chronic kidney diseaseChronic kidney disease, stage 3bRepeated fallsUnspecified hearing loss, left earTinnitus, left earUnspecified hemorrhoidsOther specified postprocedural statesLumbago with sciatica, left sideLumbago with sciatica, right sideOther chronic painOther intervertebral disc degeneration, lumbar regionIdiopathic chronic gout, unspecified site, without tophus (tophi)Polyosteoarthritis, unspecifiedSchizophrenia, unspecifiedAthscl heart disease of jamul cor art w unsp ang pctrsType 2 diabetes w diabetic peripheral angiopath w/o gangreneUnsp athscl jamul arteries of extremities, bilateral legsChronic obstructive pulmonary [...] (do not use for phone, instead use 90602-37) [facility] Estab. patient 30-39min; chronic exacerbation, 2 stable chronic or 1 acute illness add add modifier 95 for video, (do not use for phone, instead use 96353-69) [facility]/20[place] Estab. patient 30-39min; chronic exacerbation, 2 stable chronic or 1 acute illness add add modifier 95 for video, (do not use for phone, instead use 22284-71) [facility]/20[place] Estab. patient 30-39min; chronic exacerbation, 2 stable chronic or 1 acute illness add add modifier 95 for video, (do not use for phone, instead use 64203-76) [facility] 05[place]/20[place] Estab. patient 30-39min; chronic exacerbation, 2 stable chronic or 1 acute illness add add modifier 95 for video, (do not use for phone, instead use 83459-41) [facility]/20[place] Estab. patient 30-39min; chronic exacerbation, 2 stable chronic or 1 acute illness add add modifier 95 for video, (do not use for phone, instead use 40699-15) [facility] 05[place]/2024 No Data Available [facility] 05[place]/2024 Type 2 diabetes mellitus wit h diabetic chronic kidney diseaseChronic kidney disease, stage 3b No Data Available [facility] 05[place]14/2024 No Data Available [facility] [place] 06[place]/2024 Type 2 diabetes mellitus wit h diabetic chronic kidney diseaseChronic kidney disease, stage 3b No Data Available [facility] [place] 06[place]/2024 Unlisted special service; to be used for medical record reviews and reporting CPTII codes (1111F, etc) [facility] [place] 09/04/2024 Other specified counseling Unlisted special service; to be used for medical record reviews and reporting CPTII codes (1111F, etc) [facility] [place]/04/[place] Unlisted special service; to be used for medical record reviews and reporting CPTII codes (1111F, etc) [facility] [place] Estab. patient 10-29min; 1 minor problem; add add modifier 95 for video, modifier 93 for phone [facility] [place] 12[place]18/2024 Type 2 diabetes mellitus wit h diabetic chronic kidney diseaseChronic kidney disease, stage 3bMorbid (severe) obesity due to excess caloriesBody mass index (bmi) 50-59.9 , adult Estab. patient 10-29min; 1 minor problem; add add modifier 95 for video, modifier 93 for phone [facility] [place]/18/20[place] Estab. patient 10-29min; 1 minor problem; add add modifier 95 for video, modifier 93 for phone [facility] [place] 12/18/2024 Estab. patient 20-29min; 1 stable chronic or 2 minor; add add modifier 95 for video, modifier 93 for phone [facility] [place] 02/18/2025 Noninfective gastroenteritis and colitis, unspecifiedRepeated fallsUnspecified [...] to conditions classified elsewhereAthscl heart disease of jamul cor art w unsp ang pctrsPeripheral vascular disease, unspecifiedUnsp athscl jamul arteries of extremities, bilateral legsChronic obstructive pulmonary [...] 95 for video, modifier 93 for phone [facility] [place] 02[place]18[place] Estab. patient 20-29min; 1 stable chronic or 2 minor; add add modifier 95 for video, modifier 93 for phone [facility] [place] [facility] Estab. patient 20-29min; 1 stable chronic or 2 minor; add add modifier 95 for video, modifier 93 for phone [facility] [place] 02/18/20[place] Estab. patient 20-29min; 1 stable chronic or 2 minor; add add modifier 95 for video, modifier 93 for phone [facility] [place] 02/18/20[place] Estab. patient 20-29min; 1 stable chronic or 2 minor; add add modifier 95 for video, modifier 93 for phone [facility] [place] 02/18/2025 Estab. patient 20-29min; 1 stable chronic or 2 minor; add add modifier 95 for video, modifier 93 for phone [facility] [place] 02/18/20[place] Estab. patient 20-29min; 1 stable chronic or 2 minor; add add modifier 95 for video, modifier 93 for phone [facility] [place] 02/18/2025 Estab. patient 10-29min; 1 minor problem; add add modifier 95 for video, modifier 93 for phone [facility] [place] 02/20/2025 Morbid (severe) obesity due to excess caloriesDorsalgia, unspecifiedOther chronic painSpinal stenosis, lumbar region without neurogenic claudicationPain disorder exclusively related to psychological factors Estab. patient 10-29min; 1 minor problem; add add modifier 95 for video, modifier 93 for phone [facility] [place] 02/20/2025 Estab. patient 10-29min; 1 minor problem; add add modifier 95 for video, modifier 93 for phone [facility] [place]03[place]2025 Dizziness and giddinessEssen tial (primary) hypertensionRepeated fallsUnspecified osteoarthritis, unspecified siteMorbid (severe) obesity due to excess caloriesBody mass index (BMI) 45.0-49.9, adultMixed incontinenceType 2 diabetes mellitus with diabetic chronic kidney diseaseChronic kidney disease, stage 3bType 2 diabetes mellitus with other specified complicationHyperlipidemia, unspecifiedType 2 diabetes w diabetic peripheral angiopath w/o gangreneOther specified personal risk factors, not elsewhere classified Estab. patient 10-29min; 1 minor problem; add add modifier 95 for video, modifier 93 for phone [facility] [place] [facility] Estab. patient 10-29min; 1 minor problem; add add modifier 95 for video, modifier 93 for phone [facility] [place] 07[place]03/20[place] Estab. patient 10-29min; 1 minor problem; add add modifier 95 for video, modifier 93 for phone [facility] [place] 07/03/2025 Estab. patient 10-29min; 1 minor problem; add add modifier 95 for video, modifier 93 for phone [facility] [place] 07/03/2025 Vital Signs Date of Collection Vitals 2023-04-07 [...] - 42.6 kg/m2Pain Scale - 5.0 {score} 2025-07-03 05:07:02 Height - 165.1 cmWei ght - 126.1 kgBody Mass Index (BMI) - 46.26 kg/m2BP Diastolic - 89.0 mm[Hg]BP Systolic - 138.0 mm[Hg] Social History Social History Social History Observation Description Effec tive Time Current Smoking Status Never smoker 3 Sex Female Gender identity Woman History of Procedures Procedures Service Procedure code Service date Servicing provider Phone# New patient,40-59min; chronic exacerbation, 2 stable chronic or 1 acute illness add add modifier 95 for video (do not use for phone, instead use 56116-96) 23390 2023-04-07 No Data Available No Data Availa [...] reviews and reporting CPTII codes (1111F, etc) 76077 2023-07-01 No Data Available No Data Availa ble SBP < 130 (3074F) 3074F 2023-07-01 No Data Available No Data Available DBP <80 (3078F) 3078F 2023-07-01 No Data Available No Data Available No Data Available 38834 2023-08-10 No Data Available No Data Available Medication List Documented (1159F) 1159F 2023-08-10 No Data Available No Data Lena ilable BMI obtained (3008F) 3008F 2023-08-10 No Data Availab le No Data Available No Data Available [id number] 2023-10-21 No Data Available No Data Available Medication List Documented (1159F) 1159F 2023-10-21 No Data Available No Data Lena ilable Estab. patient 30-39min; chronic exacerbation, 2 stable chronic or 1 acute illness add add modifier 95 for video, (do not use for phone, instead use 18364-09) 41410 2024-05-11 No Data Available No Data Availa [...] Available No Data Available No Data Available 31082 2024-05-14 No Data Available No Data Available Medication List Documented (1159F) 1159F 2024-05-14 No Data Available No Data Lena ilable No Data Available [id number] 2024-06-20 No Data Available No Data Available Medication List Documented (1159F) 1159F 2024-06-20 No Data Available No Data Lena ilable Unlisted special service; to be used for medical record reviews and reporting CPTII codes (1111F, etc) 15729 2024-09-04 No Data Available No Data Availa ble SBP >= 140 3077F 2024-09-04 No Data Available No Data Available DBP >=90 3080F 2024-09-04 No Data Available No Data Available Estab. patient 10-29min; 1 minor problem; add add modifier 95 for video, modifier 93 for phone [id number] 2024-12-18 No Data Available No Data Availa ble Medication List Documented (1159F) 1159F 2024-12-18 No Data Available No Data Lena ilable BMI obtained (3008F) 3008F 2024-12-18 No Data Availab le No Data Available Estab. patient 20-29min; 1 stable chronic or 2 minor; add add modifier 95 for video, modifier 93 for phone 12962 2025-02-18 No Data Available No Data Availa [...] 95 for video, modifier 93 for phone 2025-02-20 No Data Available No Data Availa ble Pain Assessment - Pain Documented on a Pain Scale (1125F) 1125F 2025-02-20 No Data Available No Data Lena ilable Estab. patient 10-29min; 1 minor problem; add add modifier 95 for video, modifier 93 for phone 32473 2025-07-03 No Data Available No Data Availa ble SBP 130-139 (3075F) 3075F 2025-07-03 No Data Availabl e No Data Available DBP 80-89 (3079F) 3079F 2025-07-03 No Data Available No Data Available Most recent A1c (HbA1c) or GMI level <7% (3044F) 3044F 2025-07-03 No Data Available No Data Availa ble BMI obtained (3008F) 3008F 2025-07-03 No Data Availab le No Data Available [...] rheumatoid factor, multiple sitesAtherosclerotic heart disease of jamul coronary artery with unspecified angina pectoris;Peripheral vascular [...] discChronic gouty arthritis;Generalized osteoarthritisSchizophreniaAtherosclerotic heart disease of jamul coronary artery with unspecified angina pectoris;Peripheral vascular disease, unspecifiedUnspecified atherosclerosis of jamul arteries of extremities, bilateral legsChronic obstructive pulmonary [...] to conditions classified elsewhereAtherosclerotic heart disease of jamul coronary artery with unspecified angina pectoris;Peripheral vascular disease, unspecifiedUnspecified atherosclerosis of jamul arteries of extremities, bilateral legsChronic obstructive pulmonary disease, unspecifiedHemorrhoidsChronic back painLumbar spinal stenosis Somatoform pain disorderAt risk for cancerAt risk for colon cancerSensory neuropathyMixed stress and urge urinary incontinenceHistory of fallImpaired gait and mobilityMorbid obesity 2025-02-20 11:06:59 Morbid obesityChroni c back painLumbar spinal stenosis Somatoform pain disorder 2025-07-03 05:07:02 At risk for cancerAt risk for colon cancerEssential hypertensionDizzinessFrequent fallsOsteoarthritisMorbid obesityMixed stress and urge urinary incontinenceType 2 diabetes mellitus with stage 3b chronic kidney disease, Type 2 diabetes mellitus with hyperlipidemia, Type 2 diabetes mellitus with diabetic peripheral angiopathy without gangrene Plan of Care Date of Service Plans [...] Documented (1125F)Continue to see PCP. Follow-up with [facility] as needed for any acute or [...] for weight clinic - [facility] [place] [facility] [place] per pt request.Also needs [...] area that had available staff.Pt to call [facility] and get name of PT providers in her area that are covered.Will investigate weight loss clinics.Pt to look for back exercises on YouTube, activity as tolerated.Will FU.BMI 49.25send to weight clinic but not [place]referral for weight clinic - also [place]ocr [place] [facility] [place]Have not been able to find clinic that is covered by [facility] in er area. 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 Pt to call [facility] and find list of names [...] area that had available staff.Pt to call [facility] and get name of PT [...] our conversation of three days ago. Her SCHEDULE ANNOUNCER is supposed to go tonight or tomorrow [...] modifier 95)Continue to see PCP. [facility] [...] our conversation of three days ago. Her SCHEDULE ANNOUNCER is supposed to go tonight or tomorrow [...] mg dose. She will be traveling to [place] so she is to ask for emergency [...] our conversation of three days ago. Her SCHEDULE ANNOUNCER is supposed to go tonight or tomorrow [...] mg dose. She will be traveling to [place] so she is to ask for emergency traveling supply, which won't be much as she will be back mid July.Refilled w instructions to pharmacy.Will FU after .12.18.24reports using ozempic since 04/2024followed by PCP q [...] clinic [place] [facility] [place]Have not been able to find clinic that is covered by [facility] in er area. Pt to call [facility] and find list of names [...] obtained (3008F)Continue to see PCP. Follow-up with [facility] as needed for any acute or disease education needs that may arise.PSYCH CONTINGENCY PLANLast updated: 02/18/2025Schizoaffective DisorderMember to call for the following symptoms: Anxiety/ Hallucinations/ Mistrust / inability to relax/ Restlessness/ Worsening paranoia or delusions Planned intervention: Contact support person: son / Transfer member to [address] [place] [id number]/ Quetiapine 50mg PO q12h PRN agitation/ Remind [...] portal notes, I70.203 - Unspecified atherosclerosis of jamul arteries of extremities, bilateral legs Stablealbuterol sulfateMonitor [...] with GLP1 [facility] 250-GodoyTerrancegennaromarsha Williamson, DPM02/20/25Does not have PT in place after back surgery? Dr. Pascual (PCP) has ordered walker [facility] [id number] Astrid MalikM[facility] [place] [phone] referral to OT or PT for Tanesha askew.back surgery (nerve ablation) 02/01/25- Dr. Pena was [...] PT order if PCP unable to place 2025-07-03 05:07:02 Estab. patient 10-29 min; 1 minor problem; add add modifier 95 for video, modifier 93 for phoneSBP 130-139 (3075F)DBP 80-89 (3079F)Most recent A1c (HbA1c) or GMI level <7% (3044F)BMI obtained (3008F)Continue to see PCP. Follow-up with [facility] as needed for any acute or disease education needs that may arise 06/06.Pt reports her mother of melanoma, various siblings [...] is already managing the situation.Will F/U.Will reassure pt.07/03/25:I discussed with member checking tumor markers as a screening method is not necessarily good practice as it can be affected by other pathology such as inflammation in the body secondary to her OA, RA, DM, obesity, stress. Basic labs like CBC are always good starting point. Discussed genetic test kits, but did advise that these kits are not always covered by insurance. I also advised that given the family history, she is already aware that she is at a higher risk for certain cancers and genetic testing may not provide much more value. Advised on diet and lifestyle modifications that can help mitigate risks including anti-inflammatory diet, weight loss with regular exercise as tolerated, stress management, staying up to date with screenings, and chronic care management. She has appt with a new GI on 07/16/25 in which a new colonoscopy date will be determined.Rx: losartan 100mg daily, metoprolol 50 mg daily, Chlorthalidone 25 mg daily- Monitor blood pressure at home and keep BP diary.- Low sodium diet and regular exercise as recommended and tolerated- BP Goal <130/80- Continue to follow up with PCP/Specialist- BP: 138/89 - (05/15/25-outside care)07/03/25:She reports chronic hx of dizziness for about 1 year which she has mentioned to her PCP, but feels it is not being investigated. Per member, she has requested referral to neurology, but PCP has declined referral. -discussed scheduling appt with PCP for medication review-discussed following up with her research and development scientist for eval, i.e need for echo-advised on sitting for 2-3 minutes before movement. Advised having walker with her at all times for fall prevention-Specialist referral placed today for neurology for further eval given her ongoing symptomsTrips over herself or feet are not strong enough.Falls almost every day, seven times these past six days.Sending a shower chair07/03/25:-reports frequent falls with last fall on her birthday [birth year]-advised on sitting for 2-3 minutes before movement. Fall precautions reinforced. Advised having walker with her at all times for fall prevention. -recommended scheduling appt with PCP for medication review and research and development scientist for further eval such as possible echo; PT referral-Specialist referral placed today for neurology for further eval given her ongoing symptoms (dizziness)07/03/25:Recent fall on 05/10/25. She saw her PCP after this and xrays of b/l hand, b/l shoulder and left foot were ordered all of which showed no acute fractures (as viewed in Outside Care). However, left foot xr shows Enthesopathy, Achilles tendon; right and left hand xr show OA and Widening of scapholunate interval could indicate scapholunate ligament tear; and OA of shoulder. -Continue plan of care and conservative measures for comfort and pain mgt-Follow up with PCP for PT/ortho referral.BMI: 46.26Emphasized importance on diet modifications including calorie restricted low-cholesterol low-fat diet advised. Exercise encouraged.StableUses adult pullups Size: XL (5 per day)Gloves: Large - 2 boxes Wipes: 4 packs monthly Monitor for urinary changes or UTI s/sx and continue with PCP.-Member provided with [employer] incontinence refill line: [phone] 5.9% (08/22/24)Ha1c: 5.7% (05/15/2025- outside care)eGFR: 37 (05/30/2025-outside care)Total chol: 140, T, HDL: 29, LDL: 69 (05/30/2025-outside care)Rx: atorvastatin, ezetimibe, ozempic- Low fat/cholesterol, low carb, low glycemic diet & regular exercise (as tolerated) recommended.- Fasting FBG goal per ADA between 80 and 130 mg/dL- HA1c goal at least <8.0%; ideally <7.0%- Continue to follow up with PCP/Specialists. Goals Date Goal 2025-02-18 Remember to adhere d ietary and lifestyle interventions as discussed. 2025-02-18 Continue taking medi cations as prescribed and f/u care and monitoring with PCP every 3-6 months. 2025-02-18 Contact us if develo ping falls, HHS, DKA, cardiac s/sx, SOB, or health-related concerns. 2025-07-03 Continue taking medi cations as directed and keep all follow up appointments with established PCP and Specialist. Health Concerns Date Concern 2025-07-03 Patient/Guardian gigi resendez to visit via telehealth.Visit completed via:[ ] audio and video; [x] audio only 2025-07-03 Informed verbal cons ent was obtained from this patient to communicate and provide care using virtual and other telecommunications tools. 2025-07-03 Concerns for today's visit:Member is requesting bloodwork to check for cancer. She reports recently discovering her son has colon cancer stage 4. She also reports her daughter colon cancer stage 4. Daughter's father passed from colon cancer. She reports her mother of melanoma and various siblings have or have had leukemia and breast, colon, uterine and skin cancers. She states she has discussed checking cancer/tumor markers with her PCP as a way of screening, but PCP advised against this per member. She does not recall her last colonoscopy-states it was a long time ago. However, she mentions what sounds to be a difficult to remove colon polyp that is concerning her. She has appt with a new GI on 07/16/25 in which a new colonoscopy date will be determined.She recently had blood work on 05/30/25: CBC wnl; TSH wnl; Vitamin D >30; HCV neg; HIV neg; Triglycerides 214 and HDL at 29; BUN elevated at 24, Creatinine elevated at 1.41; eGFR at 37, alk phos at 136-otherwise CMP wnl; ESR elevated at 26; CRP= wnl at 0.30; Uric acid ULN at 5.7; Ha1c: 5.7%.She also mentions various other concerns including she falls frequently. States last fall was on her birthday [birth year]. She states she does not know how she fell. She does mention feeling dizzy prior, but states everything went blank, then suddenly she was on the floor. She states she suffered significantly injury to body and head. She saw her PCP after this and xrays of b/l hand, b/l shoulder and left foot were ordered all of which showed no acute fractures (as viewed in Outside Care). However, left foot xr shows Enthesopathy, Achilles tendon; right and left hand xr show OA and Widening of scapholunate interval could indicatescapholunate ligament tear; and OA of shoulder. Member states no imaging of her head was done which she is frustrated about because she reports striking her head. Furthermore, she reports chronic hx of dizziness for about 1 year which she has mentioned to her PCP, but feels it is not being investigated. Per member, she has requested referral to neurology, but PCP has declined referral.She is also requesting assistance finding a dentist. She also needs refill on incontinence supplies. 2025-07-03 Most recent hospital stay or ER visit:No ER visits or hospitalizations documented in [facility] in 90 days.Member denies ER visits or hospitalizations in last 90 days. 2025-07-03 Open HEDIS Measures: BP: 138/89 - (05/15/25-outside care)Ha1c: 5.7% (05/15/2025- outside care)
--- OUTSIDE RECORDS SUMMARY | 2025-07-17 11:47 | XMS_ITS | Encounter Summary ---
Author Organization [facility], Address [address] [place] [address] Phone Care Team Providers Care E Commerce Web Developer Name Role Phone Violeta Boo MD Primary Care Provide r Encounter Details Date Type Department Care Team (Late Contact Info) Description 05/05/2022 Documentation Only [facility] [address] [place] [address] Shailesh Vallejo MD [address] [place] [address] [place] [address] Social History Tobacco Use Types [...] [facility] [address] [place] [address] Shailesh Vallejo MD [address] [place] [address] [place] [address] documented as of this encounter Visit Diagnoses Not on filedocumented in this encounter Care Teams E Commerce Web Developer Relationship Specialty Start Date End Date Violeta Boo MD [address] [place] [phone] PCP - General Internal Medicine 03/21/23 documented as of this encounter
--- OUTSIDE RECORDS SUMMARY | 2025-07-17 11:47 | XMS_ITS | Encounter Summary ---
Author Organization [facility], Address [address] [place] [address] Phone Care Team Providers Care Track Patrol Name Role Phone Violeta Boo MD Primary Care Provide r Encounter Details Date Type Department Care Team (Late Contact Info) Description 03/15/2022 Documentation Only [facility] [address] [place] [address] Shailesh Vallejo MD [address] [place] [address] [place] [address] Social History Tobacco Use Types [...] Visit [facility] [address] [place] [address] Shailesh Vallejo MD [address] [place] [address] [place] [address] documented as of this encounter Visit Diagnoses Not on filedocumented in this encounter Care Teams Track Patrol Relationship Specialty Start Date End Date Violeta Boo MD [address] [place] [phone] PCP - General Internal Medicine 03/21/23 documented as of this encounter
--- OUTSIDE RECORDS SUMMARY | 2025-07-17 11:47 | XMS_ITS | Clinical Summary ---
Author Organization [facility], Address [address] [place] [address] [place] [address] Phone Care Team Providers Care Hydroponics Worker Name Role Phone Violeta Boo MD [...] Diagnosed Date Resolved Date Gout 02/12/2020 06/15/2021 senior care use of nonsteroida l antiinflammatories 02/12/2020 06/15/2021 Immunizations Immunization Administration Dates Next Due Influenza [...] Visit [facility], [address] [place] [address] Shailesh Vallejo MD [address] [place] [address] [place] [address] Health Maintenance Due Date Last Done Comments Breast Cancer Screening 1950 Colorectal Cancer Screening: Annual FOBT 2001 Colorectal Cancer Screening: Colonoscopy 2001 Colorectal Cancer Screening: Sigmoidoscopy 2001 Diabetes: Ophthalmology Exam 01/31/2023 Diabetes: Pedal Pulse Checked 01/31/2023 Diabetes: Sensory Foot Exam 01/31/2023 Diabetes: Visual Foot Exam 01/31/2023 Diabetes: Hemoglobin A1C 11/12/2024 024, 03/08/2023, 10/20/2022, Additional history exists Influenza Vaccine (#1) 2025 , 09/07/2023, 08/26/2022, Additional history exists Pneumococcal Vaccine: 50+ [...] AM EST) Hemoglobin A1C 7.1(H) (4.0-5.6) % [facility] Comment: MONITORING: In known diabetic patients, hemoglobin A1c targets should be discussed with health care provider. DIAGNOSTIC USE: The [place] Diabetes Association (ADA) and the World Health [...] Supplement 1 Testing performed or reported by [facility], a Service of [facility], [address] [place] [id number] Yana Bales MD, Chemical Maker [facility]# [id number] Blood specimen (specimen) Venous blood / Unknown 10/20/2022 9:21 AM EST 10/20/2022 9:22 AM EST us Shailesh Vallejo MD LAB BLOOD ORDERABLES Final Resul t [facility] from Last 3 Months or Most Recently Relevant to Health Maintenance Insurance [facility] ([id number]) Care Teams Hydroponics Worker Relationship Specialty Start Date End Date Violeta Boo MD [address] [place] [phone] PCP - General Internal Medicine 03/21/23
--- OUTSIDE RECORDS SUMMARY | 2025-07-17 11:47 | XMS_ITS | Encounter Summary ---
Author Organization [facility] [place], Address [address] [place] [address] Phone Care Team Providers Care Car Sander Name Role Phone Violeta Boo MD Primary Care Provide r Encounter Details Date Type Department Care Team (Late Contact Info) Description 08/27/2024 Documentation Only [facility] [address] [facility] [address] [place] [address] Rowena Knowles [address] [place] [phone] Social History Tobacco Use Types Packs/Day Years [...] Visit [facility] [place], [address] [place] [address] Shailesh Vallejo MD [address] [place] [address] [place] [address] documented as of this encounter Visit Diagnoses Not on filedocumented in this encounter Care Teams Car Sander Relationship Specialty Start Date End Date Violeta Boo MD [address] [place] [phone] PCP - General Internal Medicine 03/21/23 documented as of this encounter
--- OUTSIDE RECORDS SUMMARY | 2025-07-17 11:47 | XMS_ITS | Clinical Summary ---
Author Organization 175 [facility] Address [address] [place] [address] Phone Care Team Providers Care Mid Level Net Developer Name Role Phone Zheng Boo MD Primary [...] Chronic kidney disease, stag e III (moderate) ([facility] V24, [facility] V28) 10/08/2024 Essential hypertension, benign 10/08/2024 Hyperlipidemia 10/08/2024 Osteopenia 10/08/2024 Primary osteoarthritis of both knees 10/08/2024 Psychotic disorder ([facility] V24, [facility] V28) Tubular adenoma of colon 10/08/2024 Dyslipidemia [...] appointment Onychomycosis 03/08/2023 Type 2 diabetes mellitus ([facility] V24, [facility] V 28) 01/31/2023 Otitis externa 12/16/2022 Overview [...] Chronic gouty arthritis 09/08/2018 Episodic mood disorder ([facility] V24) 08/08/2018 Generalized osteoarthritis 08/08/2018 Morbid obesity ([facility] V24, [facility] V28) 2017 Overview (10/08/2024): Last Assessment & Plan: Discussed re weight reduction options including exercise, life style modifications, diet, referral to cash processing specialist. Discussed re lower calorie intake, increase dietary fiber Pt agreed to be referred to dietitian. Non-cardiac chest pain 08/08/2018 Seasonal allergies 08/08/2018 Unintended awareness under g eneral anesthesia during procedure 08/08/2018 Encounters Date Type Department Care Team Description 06/12/2025 10:30 AM EDT Consult Orthopedic Surgery - [address] [place] [address] Cortez Malik MD Arthritis of carpometacarpal (CMC) joint of left thumb (Primary Dx); Tear of left scapholunate ligament from Last 3 Months Immunizations Name Administration [...] Concentration - - Weight 126 kg (278 lb) 06/12/2025 10:27 AM EDT Height 165.1 cm (5' 5 ) 06/12/2025 10:27 AM EDT Body Mass Index 46.26 06/12/2025 10:27 AM EDT Plan of Treatment Upcoming Encounters Date Type Department Care Team (Late st Contact Info) Description 07/18/2025 11:00 AM EDT Office Visit Bariatric Surgery - [place] [facility] [address] [place] [address] Lauren Eisenberg MD [address] [place] [phone] 07/22/2025 1:45 PM EDT Office Visit Orthopedic Surgery - [place] [address] 175 [facility] [address] [place] [address] Cortez Malik MD [address] [place] [address] 08/09/2025 2:00 PM EDT Office Visit Orthopedic Surgery - [place] [address] [phone] Maury Godoy DPM [address] [phone] Health Maintenance Due Date Last Done Comments Breast Cancer Screening 1952 Diabetes: Annual Foot Exam 1962 Diabetes: Annual Retina Eye Exam 1962 RSV Immunization Adult Patients (1 - Risk 60-74 years 1-dose series) 2012 Colorectal Cancer Screening: Colonoscopy 10/24/2022 Falls Risk Assessment 10/24/2022 Medicare Annual Wellness Visit 10/24/2022 Social Influencers of Health Screening 10/24/2022 DTaP,Tdap,and Td Vaccines (2 - Td or Tdap) 01/29/2023 01/29/2013 Diabetes: Annual Urine Albumin-Creatinine Ratio (uACR) 12/17/2023 Depression Screening 11/14/2024 COVID-19 Vaccine (6 - Pfizer risk season) 2025 08/13/2024, 09/07/2023, 08/26/2022, Additional history exists Influenza Vaccine (#1) 2025 , 09/07/2023, 08/26/2022, Additional history exists Diabetes: Blood Sugar Control Test (HGBA1C) 11/15/2025 05/15/2025, 04/07/2023, 10/20/2022, Additional history exists Diabetes: Annual GFR (Glomerular Filtration Rate) 05/30/2026 05/30/2025, 05/23/2025, 03/01/2024 Hypertension/CHF/CAD Annual BMP Blood Test 05/30/2026 05/30/2025, 05/23/2025, 03/01/2024 Cholesterol Screening (Lipid Panel) 05/30/2030 05/30/2025, 03/15/2022 Osteoporosis Screening (Bone Density Screening) 03/19/2035 03/19/2025 Zoster Vaccines Completed 11/29/2019, 10/0 07/2019, 01/14/2015 Pneumococcal Vaccine: 50+ Years Completed 08/13/2024, 03/19/2019, 12/12/2017, Additional history exists Hepatitis C Screening Completed 05/30/2025 HIB Vaccines Aged Out No longer eligi [...] Procedure Name Priority Date/Time Associated Diagnosis Comments MI ARTHROCENTESIS/ASP IRATION/INJECTION SMALL JOINT/BURSA WO U/S GUIDANCE Routine 06/12/2025 10:30 AM EDT Arthritis of carpometacarpal (CMC) joint of left thumb XR WRIST 3+ VIEWS LEFT Routine 06/12/2025 10:14 AM EDT Tear of left scapholunate ligament HM ANNUAL BMP BLOOD TEST Routine 03/01/2024 HEMOGLOBIN A1C Routine 08/09/2022 LIPID PANEL Routine 03/15/2022 from Last 3 Months or Most Recently Relevant to Health Maintenance Results * MI ARTHROCENTESIS/ASPIRATION/INJECTION SMALL JOINT/BURSA WO U/S GUIDANCE (06/12/2025 10:30 AM EDT) Narrative Cortez Malik MD - 06/12/2025 10:30 AM EDT Cortez Malik MD 06/12/2025 1:13 PM S Inj/Asp: L thumb CMC Indications: pain Details: 25 G needle, dorsal approach Medications: 40 mg triamcinolone acetonide 40 mg/mL Outcome: tolerated well, no immediate complications Site was prepped in standard fashion using alcohol swab, sterile technique was used to perform the injection, the patient tolerated the procedure well and a band-aid dressing was applied Informed Consent: Site: Left thumb cmc joint Laterality: Left Relevant images/test results available and reviewed: yes Health status cleared: Yes Procedure/treatment, purpose, treatment alternatives, risks/potential complications and benefits explained: yes Risk/complications/benefits details: Risks and benefits of corticosteroid injection were discussed, including risk of pain, bleeding, infection, tissue attenuation, tendon rupture, changes in skin color, and injury to surrounding structures such as arteries, veins and nerves. We also discussed the patient may develop worsening pain for a few days before having improvement in their symptoms. Patient questions answered: yes Patient agrees, verbalizes understanding, and wants to proceed: yes Consent given by: Patient Informed consent discussion completed by Physician/NATALIE with patient: Verbal Pre-procedure timeout performed: yes us Cortez Malik MD IN CLINIC/BEDSIDE ORDERABLES Shemar daylin Result - Final * XR Wrist 3+ Views Left (06/12/2025 10:14 AM EDT) Anatomical Region Laterality Modality Upper Extremities, Wrist Left Compute d Radiography Narrative 06/12/2025 12:51 PM EDT Three-view x-ray of the left wrist including an additional bilateral AP pencil steel rule inspector view shows degenerative changes at the thumb CMC joint of the left thumb with osteophyte formation and joint space narrowing. There are additional degenerative changes at the radiocarpal joint with scapholunate interval widening likely stage I SLAC wrist. The right wrist shows similar degenerative changes at the thumb CMC joint and 5 mm of scapholunate interval widening. There is evidence of a previous ulnar styloid avulsion fracture which appears chronic. Ulnar negative variance. Soft tissue shadows appear normal. Impression: Bilateral widening of the scapholunate interval, degenerative changes of the bilateral thumb CMC joint, chronic appearing ulnar styloid avulsion fracture. Cortez Malik MD IMG XR PROCEDURES Final Result * Annual BMP Blood Test (03/01/2024) Pathologist [facility] Annual BMP Blood Test Abstracted Result [facility] Provider HEALTH MAINTENANCE Final Result * Hemoglobin A1c (08/09/2022) [facility] Hemoglobin A1C 0.0 % Comment:No Interpretation, A bstracted Blood Venous blood specimen / Unknown Result [facility] Provider LAB BLOOD ORDERABLES Almaz l Result * Lipid panel (03/15/2022) [facility] LDL/HDL Ratio 0 Comment:No Interpretation, A bstracted Triglycerides 0 mg/dL Comment:No Interpretation, A bstracted Cholesterol 0 mg/dL Comment:No Interpretation, A bstracted HDL 0 mg/dL Comment:No Interpretation, A bstracted LDL Cholesterol 0 mg/dL Comment:No Interpretation, A bstracted Blood Venous blood specimen / Unknown Result [facility] Provider LAB BLOOD ORDERABLES Almaz l Result from Last 3 Months or Most Recently Relevant to Health Maintenance Insurance MEDICAID - [place] Care Teams Mid Level Net Developer Relationship Specialty Start Date End Date Zheng Boo MD [address] [place] [phone] [facility] - General 03/29/23
--- OUTSIDE RECORDS SUMMARY | 2025-07-17 11:47 | XMS_ITS | Encounter Summary ---
Author Organization [facility] Address [address] [place] [address] Phone Care Team Providers Care Acute Care Registered Nurse Name Role Phone Violeta Boo MD Primary Care Provide r Encounter Details Date Type Department Care Team (Late Contact Info) Description 10/22/2022 Documentation Only [facility] [address] [place] [address] Jazmin Powell PA [address] [place] [address] [place] [address] Social History Tobacco Use Types [...] [facility] [address] [place] [address] Shailesh Vallejo MD [address] [facility] [place] [place] [address] documented as of this encounter Visit Diagnoses Not on filedocumented in this encounter Care Teams Acute Care Registered Nurse Relationship Specialty Start Date End Date Violeta Boo MD [address] [place] [phone] PCP - General Internal Medicine 03/21/23 documented as of this encounter
--- OUTSIDE RECORDS SUMMARY | 2025-07-17 11:47 | XMS_ITS | Encounter Summary ---
Author Organization [facility] Address [address] [place] [address] Phone Care Team Providers Care Agency Operator Name Role Phone Violeta Boo MD Primary Care Provide r Encounter Details Date Type Department Care Team (Late Contact Info) Description 03/22/2023 Documentation Only [facility] [address] [place] [address] Jazmin Powell PA [address] [place] [address] [place] [address] Social History Tobacco Use Types [...] Visit [facility] [address] [place] [address] Shailesh Vallejo MD [address] [place] [address] [place] [address] documented as of this encounter Visit Diagnoses Not on filedocumented in this encounter Care Teams Agency Operator Relationship Specialty Start Date End Date Violeta Boo MD [address] [place] [phone] PCP - General Internal Medicine 03/21/23 documented as of this encounter
--- OUTSIDE RECORDS SUMMARY | 2025-07-17 11:47 | XMS_ITS | Encounter Summary ---
Author Organization [facility] Address [address] [place] [address] Phone Care Team Providers Care Veneer Slicing Machine Operator Name Role Phone Violeta Boo MD Primary Care Provide r Encounter Details Date Type Department Care Team (Late Contact Info) Description 12/24/2022 Documentation Only [facility] [address] [place] [address] Jazmin Powell PA [address] [place] [address] [place] [address] Social History Tobacco Use Types [...] [facility] [address] [place] [address] Shailesh Vallejo MD [address] [facility] [place] [address] documented as of this encounter Visit Diagnoses Not on filedocumented in this encounter Care Teams Veneer Slicing Machine Operator Relationship Specialty Start Date End Date Violeta Boo MD [address] [place] [phone] PCP - General Internal Medicine 03/21/23 documented as of this encounter
--- OUTSIDE RECORDS SUMMARY | 2025-07-17 11:47 | XMS_ITS | Encounter Summary ---
Author Organization [facility], Address [address] [place] [address] Phone Care Team Providers Care Firer Electric Locomotive Name Role Phone Violeta Boo MD Primary Care Provide r Encounter Details Date Type Department Care Team (Late Contact Info) Description 03/20/2025 Documentation Only [facility] [address] [place] [address] Rowena Knowles [address] [place] [phone] Social History Tobacco Use Types Packs/Day Years [...] Visit [facility] [address] [place] [address] Shailesh Vallejo MD [address] [place] [address] [place] [address] documented as of this encounter Visit Diagnoses Not on filedocumented in this encounter Care Teams Firer Electric Locomotive Relationship Specialty Start Date End Date Violeta Boo MD [address] [place] [phone] PCP - General Internal Medicine 03/21/23 documented as of this encounter
--- OUTSIDE RECORDS SUMMARY | 2025-07-17 11:47 | XMS_ITS | Encounter Summary ---
Author Organization [facility] [place], Address [address] [place] [address] Phone Care Team Providers Care Grated Cheese Maker Name Role Phone Violeta Boo MD Primary Care Provide r Encounter Details Date Type Department Care Team (Late Contact Info) Description 05/05/2022 Documentation Only [facility] [address] [place] [address] Shailesh Vallejo MD [address] [place] [address] [place] [address] Social History Tobacco Use Types [...] Visit [facility] [address] [place] [address] Shailesh Vallejo MD [address] [place] [address] [place] [address] documented as of this encounter Visit Diagnoses Not on filedocumented in this encounter Care Teams Grated Cheese Maker Relationship Specialty Start Date End Date Violeta Boo MD [address] [place] [phone] PCP - General Internal Medicine 03/21/23 documented as of this encounter
--- OUTSIDE RECORDS SUMMARY | 2025-07-17 11:47 | XMS_ITS | Encounter Summary ---
Author Organization [facility], Address [address] [place] [address] Phone Care Team Providers Care Microbiology Analyst Name Role Phone Violeta Boo MD Primary Care Provide r Encounter Details Date Type Department Care Team (Late Contact Info) Description 02/13/2024 Documentation Only [facility] [address] [place] [address] Rowena Knowles [address] [place] [phone] Social History Tobacco Use Types Packs/Day Years [...] Visit [facility] [address] [place] [address] Shailesh Vallejo MD [address] [place] [address] [place] [address] documented as of this encounter Visit Diagnoses Not on filedocumented in this encounter Care Teams Microbiology Analyst Relationship Specialty Start Date End Date Violeta Boo MD [address] [place] [phone] PCP - General Internal Medicine 03/21/23 documented as of this encounter
--- OUTSIDE RECORDS SUMMARY | 2025-07-17 11:47 | XMS_ITS | Encounter Summary ---
Author Organization [facility], Address [address] [place] [address] Phone Care Team Providers Care Overhead Crane Operator Name Role Phone Violeta Boo MD Primary Care Provide r Encounter Details Date Type Department Care Team (Late Contact Info) Description 2022 Office Communication [facility] [address] [address] Shailesh Vallejo MD [address] [place] [address] [place] [address] Social History Tobacco Use Types [...] [facility] [address] [place] [address] Shailesh Vallejo MD [address] [place] [address] [place] [address] documented as of this encounter Visit Diagnoses Not on filedocumented in this encounter Care Teams Overhead Crane Operator Relationship Specialty Start Date End Date Violeta Boo MD [address] [place] [phone] PCP - General Internal Medicine 03/21/23 documented as of this encounter
== END 2025-07-17 10:35 | disposition home or self-care (01) ==
LOC: HO.HPS 10:15
PROVIDERS: PCP Internal Medicine; Visit Provider Internal Medicine
DX: E66.01 Morbid (severe) obesity due to excess calories (principal); G47.33 Obstructive sleep apnea (adult) (pediatric); J98.4 Other disorders of lung; J44.9 Chronic obstructive pulmonary disease, unspecified; J30.9 Allergic rhinitis, unspecified
CPT/HCPCS: 99214

== ENCOUNTER → 2025-07-17 10:14 | Outpatient (BNVA) | payer OTHER, SELFPAY | PROVIDERS: PCP Internal Medicine; Visit Provider Internal Medicine | DX: G47.33 Obstructive sleep apnea (adult) (pediatric) (principal); E66.01 Morbid (severe) obesity due to excess calories; J98.4 Other disorders of lung; J44.9 Chronic obstructive pulmonary disease, unspecified; J30.9 Allergic rhinitis, unspecified | CPT/HCPCS: 99212 ==

== ENCOUNTER 2025-07-24 08:26 | Outpatient (REF) | payer OTHER, SELFPAY ==
--- OUTSIDE RECORDS SUMMARY | 2025-07-22 13:45 | XMS_ITS | Encounter Summary ---
Author Organization [facility] Address [address] [place] [address] Care Team Providers Care Director Telemetry Name Role Phone Violeta Boo MD Primary Care Provide r Reason for Referral * Orthopedic (Routine) - Pending Review Specialty Diagnoses / Procedures Referred By Contac t Referred To Contact Orthopedic Surgery / Orthopaedic Surgery Diagnoses Acquired trigger finger of right index finger Procedures Hand / UE Inj/Asp: R index A1 Cortez Malik MD [address] [place] [address] Phone: tel: fax: Referral ID Status Reason Start Date Expiration Date V isits Requested Visits Authorized [id number] Pending Review 07/22/2025 07/22/2026 1 1 * Orthopedic (Routine) - Pending Review Specialty Diagnoses / Procedures Referred By Contac t Referred To Contact Orthopedic Surgery / Orthopaedic Surgery Diagnoses Trigger thumb of right hand Procedures Hand / UE Inj/Asp: R thumb A1 Cortez Malik MD [address] [place] [address] Phone: tel: fax: Referral ID Status Reason Start Date Expiration Date V isits Requested Visits Authorized [id number] Pending Review 07/22/2025 07/22/2026 1 1 Reason for Visit * Reason Comments Follow-up right hand pain Encounter Details Date Type Department Care Team (Late st Contact Info) Description 07/22/2025 1:45 PM EDT Office Visit Orthopedic Surgery [place] [address] [phone] Cortez Malik MD [address] [place] [address] Trigger thumb of right hand (Primary Dx); Acquired trigger finger of right index finger Social History Tobacco Use Types Packs/Day Years Used Date Smoking Tobacco: Never Smokeless Tobacco: Never Comments Unknown Sex and Gender Information Value Date Recorded Sex Assigned at Not on file Legal Sex Female 11:41 AM EST Gender Identity Not on file Sexual Orientation Not on file documented as of this encounter Progress Notes * Cortez Malik MD - 07/22/2025 1:45 PM EDTAssociated Order(s): Hand / UE Inj/Asp: R thumb A1; Hand / UE Inj/Asp: R index A1 Post-Procedure Diagnose(s): Trigger thumb of right hand; Acquired trigger finger of right index finger Date: July 22, 2025 Diagnosis: left thumb [facility] arthritis (corticosteroid injection on 06/12/2025) New complaint: Right thumb pain Last seen: 06/12/25 inspection engineer Marifer #[id number] HPI: Violeta Barajas is a 75 y.o. female RHD Walker ambulator BMI of 46 PMH of psoriatic arthritis presenting for followup with a new complaint. She reports that her right thumb in the last 3 weeks has been having pain and locking. She says that this is worse in the mornings. She will sometimes have the finger flexed to not be able to extended. She has not had any previous injections or treatment for this. She denies any numbness or tingling to that hand. Has some stiffness related to the pain. In regards to her left hand she says that the left thumb has some persistent pain but has had significant proving after the corticosteroid injection and she is happy with her improvement in her symptoms. Objective Focused Exam: Right Upper Extremity Skin intact Has tenderness to palpation with a palpable nodule over the A1 zulma at the base of the thumb, this causes pain with attempted flexion at the interphalangeal joint. She does have limited flexion extension at the individual joint of the thumb She similarly has a tender nodule within the flexor tendon sheath which is mobile over the the areaof the A1 zulma at the index finger, no other tenderness to palpation over the A1 pulleys With full composite fist formation fingertip to distal palmar crease distance of 1 cm Fires EPL/FPL/FDP/IO SILT M/R/U palpable radial pulse Imaging: Three-view x-rays of the right hand shows no acute fracture or dislocation. There is a radiopaque density styloid which may represent a previous ulnar styloid avulsion fracture or chondrocalcinosis. Soft tissue shadows otherwise appear normal. There is normal carpal alignment. Impression: Possible chondrocalcinosis versus chronic ulnar styloid avulsion fracture, otherwise normal radiographs of the right hand Medical Decision Making (base on 2 out of 3 elements): Problems Addressed: Moderate- 2 or more stable, chronic illnesses Tests Ordered and/or Reviewed: Low-Ordering of each test: x-ray of the right hand Risk Level: Low risk Assessment: Violeta Barajas presents with exam consistent with trigger fingers of the right thumb and index finger. I explained the etiology of trigger finger. As the flexor tendons enter the flexor tendon sheath atthe level of the A1 zulma, there is a size mismatch. Due to many years of use, the tendon has become inflamed or the sheath has become inflamed and it no longer easily glides into the tunnel. The majority of patients (60-80%) will achieve symptom relief with corticosteroid injection, although sometimes it takes more than one. Patients with diabetes or symptoms for longer than 6 months have a lower chance of successful resolution of symptoms with injections. Patients who are not satisfied with symptoms relief from injections may be a candidate for trigger finger release. Plan: Right thumb trigger finger - Corticosteroid injecion to the A1 zulma Right index finger trigger finger - Corticosteroid injection to the A1 zulma - Follow-up on as-needed basis for any worsening or persistent symptoms Hand / UE Inj/Asp: R thumb A1 for trigger finger Indications: pain Details: 27 G needle, volar approach Medications: 40 mg triamcinolone acetonide 40 mg/mL; 1 mL lidocaine 1 % Outcome: tolerated well, no immediate complications Site was prepped in standard fashion using alcohol swab, sterile technique was used to perform the injection, the patient tolerated the procedure well and a band-aid dressing was applied Informed Consent: Site: Right thum A1 zulma Laterality: Right Relevant images/test results available and reviewed: yes Health status cleared: Yes Procedure/treatment, purpose, treatment alternatives, risks/potential complications and benefits explained: yes Risk/complications/benefits details: Risk/complications/benefits details: Risks and benefits of corticosteroid [...] with patient: Verbal Pre-procedure timeout performed: yes Hand / UE Inj/Asp: R index A1 for trigger finger Indications: pain Details: 27 G needle, volar approach Medications: 40 mg triamcinolone acetonide 40 mg/mL; 1 mL lidocaine 1 % Outcome: tolerated well, no immediate complications Site was prepped in standard fashion using alcohol swab, sterile technique was used to perform the injection, the patient tolerated the procedure well and a band-aid dressing was applied Informed Consent: Site: Right index A1 zulma Laterality: Right Relevant images/test results available and reviewed: yes Health status cleared: Yes Procedure/treatment, purpose, treatment alternatives, risks/potential complications and benefits explained: yes Risk/complications/benefits details: Risk/complications/benefits details: Risks and benefits of corticosteroid [...] with patient: Verbal Pre-procedure timeout performed: yes I explained the etiology of trigger finger. As the flexor tendons enter the flexor tendon sheath atthe level of the A1 zulma, there is a size mismatch. Due to many years of use, the tendon has become inflamed or the sheath has become inflamed and it no longer easily glides into the tunnel. The majority of patients (60-80%) will achieve symptom relief with corticosteroid injection, although sometimes it takes more than one. Patients with diabetes or symptoms for longer than 6 months have a lower chance of successful resolution of symptoms with injections. Patients who are not satisfied with symptoms relief from injections may be a candidate for trigger finger release. I have obtained verbal consent from Violeta Barajas prior to the recording. I have advised Violeta Barajas that she may refuse the recording and require the recording to be turned off at any time. Cortez Malik MD documented in this encounter Plan of Treatment Upcoming Encounters Date Type Department Care Team (Late st Contact Info) Description 08/09/2025 2:00 PM EDT Office Visit Orthopedic Surgery - [place] [address] [phone] Maury Godoy, DPM [address] [phone] 10/21/2025 2:00 PM EST Nutrition Bariatric Surgery - [place] [address] [phone] Elana Aviles, RD 175 [facility] [address] [place] [phone] documented as of this encounter Procedures Procedure Name Priority Date/Time Associated Diagnosis Comments WI INJECTION SINGLE TENDON SHEATH OR LIGAMENT APONEUROSIS Routine 07/22/2025 1:45 PM EDT Acquired trigger finger of right index finger WI INJECTION SINGLE TENDON SHEATH OR LIGAMENT APONEUROSIS Routine 07/22/2025 1:45 PM EDT Trigger thumb of right hand documented in this encounter Results * WI INJECTION SINGLE TENDON SHEATH OR LIGAMENT APONEUROSIS (07/22/2025 1:45 PM EDT) Cortez Taylor MD - 07/22/2025 1:45 PM EDT Cortez Malik MD 07/22/2025 5:48 PM Hand / UE Inj/Asp: R index A1 for trigger finger Indications: pain Details: 27 G needle, volar approach Medications: 40 mg triamcinolone acetonide 40 mg/mL; 1 mL lidocaine 1 % Outcome: tolerated well, no immediate complications Site was prepped in standard fashion using alcohol swab, sterile technique was used to perform the injection, the patient tolerated the procedure well and a band-aid dressing was applied Informed Consent: Site: Right index A1 zulma Laterality: Right Relevant images/test results available and reviewed: yes Health status cleared: Yes Procedure/treatment, purpose, treatment alternatives, risks/potential complications and benefits explained: yes Risk/complications/benefits details: Risk/complications/benefits details: Risks and benefits of corticosteroid [...] us Cortez Malik MD IN CLINIC/BEDSIDE ORDERABLES Fin al Result * WI INJECTION SINGLE TENDON SHEATH OR LIGAMENT APONEUROSIS (07/22/2025 1:45 PM EDT) Cortez Taylor MD - 07/22/2025 1:45 PM EDT Cortez Malik MD 07/22/2025 5:48 PM Hand / UE Inj/Asp: R thumb A1 for trigger finger Indications: pain Details: 27 G needle, volar approach Medications: 40 mg triamcinolone acetonide 40 mg/mL; 1 mL lidocaine 1 % Outcome: tolerated well, no immediate complications Site was prepped in standard fashion using alcohol swab, sterile technique was used to perform the injection, the patient tolerated the procedure well and a band-aid dressing was applied Informed Consent: Site: Right thum A1 zulma Laterality: Right Relevant images/test results available and reviewed: yes Health status cleared: Yes Procedure/treatment, purpose, treatment alternatives, risks/potential complications and benefits explained: yes Risk/complications/benefits details: Risk/complications/benefits details: Risks and benefits of corticosteroid [...] Verbal Pre-procedure timeout performed: yes us Cortez Mlaik MD IN CLINIC/BEDSIDE ORDERABLES Fin al Result documented in this encounter Visit Diagnoses Diagnosis Trigger thumb of right hand- Primary Acquired trigger finger of right index finger documented in this encounter Administered Medications Inactive Administered Medications - up to 3 most recent administrations Medication Order MAR Action Action Date Dose Rate Site lidocaine (XYLOCAINE) 1 % injection 1 mL 1 mL, injection, Once PRN Procedure, Starting on Tue07/22/25 at 1345, For 1 doseIndications:Trigger thumb of right hand Given 07/22/2025 1:45 PM EDT 1 mL lidocaine (XYLOCAINE) 1 % injection 1 mL 1 mL, injection, Once PRN Procedure, Starting on Tue07/22/25 at 1345, For 1 doseIndications:Acquired trigger finger of right index finger Given 07/22/2025 1:45 PM EDT 1 mL triamcinolone acetonide (KENALOG-40) 40 mg/mL injection 40 mg 40 mg, intra-articular, Once PRN Procedure, Starting on Tue07/22/25 at 1345, For 1 doseIndications:Trigger thumb of right hand Given 07/22/2025 1:45 PM EDT 40 mg triamcinolone acetonide (KENALOG-40) 40 mg/mL injection 40 mg 40 mg, intra-articular, Once PRN Procedure, Starting on Tue07/22/25 at 1345, For 1 doseIndications:Acquired trigger finger of right index finger Given 07/22/2025 1:45 PM EDT 40 mg documented in this encounter Care Teams Director Telemetry Relationship Specialty Start Date End Date Violeta Boo MD [address] [place] [phone] PCP - General 03/29/23 documented as of this encounter
--- OUTSIDE RECORDS SUMMARY | 2025-07-24 09:42 | XMS_ITS ---
Author Name Shrestha TRANSIT SPECIALIST,TRUER PINION AND WHEEL,FN P,TOOL STORAGE ATTENDANT, Maddi Address [address] [place] [address] Phone [phone] [facility] Care Team Providers Care Provider Engagement Executive Name Role Phone Maddi Shrestha Unavailable [phone] SARAH ROMEO Unavailable [phone] Sarah Romeo Unavailable [phone] Unavailable Unavailable [phone] Unavailable Unavailable Unavailable Unavailable Unavailable Unavailable Cristo Garcia Unavailable [phone] Unavailable Unavailable [phone] Gideon Frost Unavailable [phone] Unavailable Unavailable Unavailable Unavailable Unavailable Unavailable Unavailable Unavailable [phone] WALTER ROBERT Unavailable [phone] Gabrielle Nirav Unavailable [phone] Unavailable Unavailable [phone] Unavailable Unavailable [phone] Reason for Referral Not Available Allergies, adverse reactions, alerts Allergen Type Reaction Severity Status Onset Date Aspirin Allergy to substance (disorder) Unknown Active N/A Iodinated Contrast Media Allergy to subs tance (disorder) Unknown Active N/A History of medication use Medication Class Instructions Start Date End Date Cetirizine 10 mg Tab TAKE 1 TABLET BY [facility] ONCE 2 HOURS BEFORE EXAM WITH METHYLPREDNISOLONE [...] AREA(S) EVERY MORNING 2022-12-16 No Data Available [id number] 3 TO 4 DROPS INTO [...] mg Cap TAKE 1 CAPSULE BY [facility] AT BEDTIME 2023-05-20 No Data Available [...] to weight 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;Peripheral vascular [...] appt with PCP for medication review and property clerk for further eval such as possible echo; [...] to ENTCN to assist 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, bilateral legs Active 2023-03-16 1 N/A StablestatinMD portal notes, I70.203 - 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, bilateral legs Hemorrhoids Active [...] support person: son / Transfer member to [address] [place] [address]/ Quetiapine 50mg PO q12h PRN agitation/ Remind member of breathing exercises/ Encourage member to journal feelings/ Limit extra stimulation Mixed stress and urge urinar y incontinence Active 7 N/A StableUses adult pullups Size: XL (5 per day)Gloves: Large - 2 boxes Wipes: 4 packs monthly Monitor for urinary changes or UTI s/sx and continue with PCP.-Member provided with [facility] incontinence refill line: [phone] Morbid obesity Active 0 9 N/A BMI: 46.26Emphasized importance on diet modifications including calorie restricted low-cholesterol low-fat diet advised. Exercise encouraged. Chronic back painLumbar spin al stenosis Somatoform pain disorder Active 0 8 N/A Orthopedic Surgery [facility] 250-Maury Godoy DPM02/20/25Does not have PT in place after back surgery? Dr. Pascual (PCP) has ordered azar [address] [phone] referral to OT or PT for Tanesha [...] for medication review-discussed following up with her property clerk for eval, i.e need for echo-advised on [...] (do not use for phone, instead use 08802-42) [facility] ([place]) 04/07/2023 Noninfective gastroenteritis and colitis, unspecifiedRepeated fallsUnspecified [...] sitesSacroiliitis, not elsewhere classifiedAthscl heart disease of squaxin cor art w unsp ang pctrsPeripheral vascular disease, unspecified New patient,40-59min; chronic exacerbation, 2 stable chronic or 1 acute illness add add modifier 95 for video (do not use for phone, instead use 71632-75) [facility] [place] New patient,40-59min; chronic exacerbation, 2 stable chronic or 1 acute illness add add modifier 95 for video (do not use for phone, instead use 59341-29) [facility] New patient,40-59min; chronic exacerbation, 2 stable chronic or 1 acute illness add add modifier 95 for video (do not use for phone, instead use 51494-77) [facility] New patient,40-59min; chronic exacerbation, 2 stable chronic or 1 acute illness add add modifier 95 for video (do not use for phone, instead use 57099-64) [facility] New patient,40-59min; chronic exacerbation, 2 stable chronic or 1 acute illness add add modifier 95 for video (do not use for phone, instead use 43611-53) [facility] New patient,40-59min; chronic exacerbation, 2 stable chronic or 1 acute illness add add modifier 95 for video (do not use for phone, instead use 30606-60) [facility] New patient,40-59min; chronic exacerbation, 2 stable chronic or 1 acute illness add add modifier 95 for video (do not use for phone, instead use 92166-92) [facility] 04[place] New patient,40-59min; chronic exacerbation, 2 stable chronic or 1 acute illness add add modifier 95 for video (do not use for phone, instead use 02780-58) [facility] 04/07/2023 Unlisted special service; to be used for medical record reviews and reporting CPTII codes (1111F, etc) [facility] 07/01/2023 Other specified counseling Unlisted special service; to be used for medical record reviews and reporting CPTII codes (1111F, etc) [facility] 07/[place]2023 Unlisted special service; to be used for medical record reviews and reporting CPTII codes (1111F, etc) [facility] [place] 07/01/2023 No Data Available [facility] [place] 08/10/2023 Body mass index (BMI) 45.0-4 9.9, adultPrediabetesMorbid (severe) obesity due to excess caloriesTinea unguiumLumbago with sciatica, left sideLumbago with sciatica, right sideOther chronic painOther intervertebral disc degeneration, lumbar region No Data Available [facility] [place] 08/10/2023 No Data Available [facility] [place] 08/10/2023 No Data Available [facility] [place] 10/21/2023 Dorsalgia, unspecifiedOther chronic painMorbid (severe) obesity due to excess caloriesOther specified personal risk factors, not elsewhere classified No Data Available [facility] [place] 10/21/2023 Estab. patient 30-39min; chronic exacerbation, 2 stable chronic or 1 acute illness add add modifier 95 for video, (do not use for phone, instead use 83681-57) [facility] [place] 05/11/2024 Type 2 diabetes mellitus wit h diabetic chronic kidney diseaseChronic kidney disease, stage 3bRepeated fallsUnspecified hearing loss, left earTinnitus, left earUnspecified hemorrhoidsOther specified postprocedural statesLumbago with sciatica, left sideLumbago with sciatica, right sideOther chronic painOther intervertebral disc degeneration, lumbar regionIdiopathic chronic gout, unspecified site, without tophus (tophi)Polyosteoarthritis, unspecifiedSchizophrenia, unspecifiedAthscl heart disease of squaxin cor art w unsp ang pctrsType 2 diabetes w diabetic peripheral angiopath w/o gangreneUnsp athscl squaxin arteries of extremities, bilateral legsChronic obstructive pulmonary [...] (do not use for phone, instead use 73003-56) [facility] 05[place] Estab. patient 30-39min; chronic exacerbation, 2 stable chronic or 1 acute illness add add modifier 95 for video, (do not use for phone, instead use 35230-78) [facility] 05[place] Estab. patient 30-39min; chronic exacerbation, 2 stable chronic or 1 acute illness add add modifier 95 for video, (do not use for phone, instead use 65368-47) [facility] 05[place]/20[place] Estab. patient 30-39min; chronic exacerbation, 2 stable chronic or 1 acute illness add add modifier 95 for video, (do not use for phone, instead use 17622-90) [facility] 05[place]11/20[place] Estab. patient 30-39min; chronic exacerbation, 2 stable chronic or 1 acute illness add add modifier 95 for video, (do not use for phone, instead use 36150-43) [facility] 05/11/20[place] Estab. patient 30-39min; chronic exacerbation, 2 stable chronic or 1 acute illness add add modifier 95 for video, (do not use for phone, instead use 04997-41) [facility] 05/11/2024 No Data Available [facility] 05[place]14/2024 Type 2 diabetes mellitus [...] (1111F, etc) [facility] 09/04/2024 Other specified counseling Unlisted special service; to be used for medical record reviews and reporting CPTII codes (1111F, etc) [facility] ([place] 09/04/2024 Unlisted special service; to be used for medical record reviews and reporting CPTII codes (1111F, etc) [facility] ([place] 09/04/2024 Estab. patient 10-29min; 1 minor problem; add add modifier 95 for video, modifier 93 for phone [facility] [place] 12/18/2024 Type 2 diabetes mellitus wit h diabetic chronic kidney diseaseChronic kidney disease, stage 3bMorbid (severe) obesity due to excess caloriesBody mass index (bmi) 50-59.9 , adult Estab. patient 10-29min; 1 minor problem; add add modifier 95 for video, modifier 93 for phone [facility] [place] 12/18/2024 Estab. patient 10-29min; 1 minor problem; add add modifier 95 for video, modifier 93 for phone [facility] [place] 12/18/2024 Estab. patient 20-29min; 1 stable chronic or 2 minor; add add modifier 95 for video, modifier 93 for phone [facility] [place] 02/18/2025 Noninfective gastroenteritis and colitis, unspecifiedRepeated fallsUnspecified [...] to conditions classified elsewhereAthscl heart disease of squaxin cor art w unsp ang pctrsPeripheral vascular disease, unspecifiedUnsp athscl squaxin arteries of extremities, bilateral legsChronic obstructive pulmonary [...] 95 for video, modifier 93 for phone [facility], [place] 02/18/2025 Estab. patient 20-29min; 1 stable chronic or 2 minor; add add modifier 95 for video, modifier 93 for phone [facility] ([place] 02/18/2025 Estab. patient 20-29min; 1 stable chronic or 2 minor; add add modifier 95 for video, modifier 93 for phone [facility] ([place] 02/18/2025 Estab. patient 20-29min; 1 stable chronic or 2 minor; add add modifier 95 for video, modifier 93 for phone [facility] [place] 02/18/2025 Estab. patient 20-29min; 1 stable chronic or 2 minor; add add modifier 95 for video, modifier 93 for phone [facility], [place] 02/18/2025 Estab. patient 20-29min; 1 stable chronic or 2 minor; add add modifier 95 for video, modifier 93 for phone [facility] [place] 02/18/2025 Estab. patient 20-29min; 1 stable chronic or 2 minor; add add modifier 95 for video, modifier 93 for phone [facility], [place] 02/18/2025 Estab. patient 10-29min; 1 minor problem; add add modifier 95 for video, modifier 93 for phone [facility], [place] 02/20/2025 Morbid (severe) obesity due to excess caloriesDorsalgia, unspecifiedOther chronic painSpinal stenosis, lumbar region without neurogenic claudicationPain disorder exclusively related to psychological factors Estab. patient 10-29min; 1 minor problem; add add modifier 95 for video, modifier 93 for phone [facility] [place] 02/20/2025 Estab. patient 10-29min; 1 minor problem; add add modifier 95 for video, modifier 93 for phone [facility], [place] 07/03/2025 Dizziness and giddinessEssen tial (primary) [...] 95 for video, modifier 93 for phone [facility], ([place] 07/03/2025 Estab. patient 10-29min; 1 minor problem; add add modifier 95 for video, modifier 93 for phone [facility] [facility], ([place] 07/03/2025 Estab. patient 10-29min; 1 minor problem; add add modifier 95 for video, modifier 93 for phone [facility] [employer] [facility], ([place] 07/03/2025 Estab. patient 10-29min; 1 minor problem; add add modifier 95 for video, modifier 93 for phone [facility] [employer] [facility], ([place] 07/03/2025 Vital Signs Date of Collection Vitals [...] tive Time Current Smoking Status Never smoker 2025-07-15 0 Sex Female Gender identity Woman History of Procedures Procedures Service Procedure code Service date Servicing provider Phone# New patient,40-59min; chronic exacerbation, 2 stable chronic or 1 acute illness add add modifier 95 for video (do not use for phone, instead use 82292-24) 42858 2023-04-07 No Data Available No Data Availa [...] reviews and reporting CPTII codes (1111F, etc) 17483 2023-07-01 No Data Available No Data Availa ble SBP < 130 (3074F) 3074F 2023-07-01 No Data Available No Data Available DBP <80 (3078F) 3078F 2023-07-01 No Data Available No Data Available No Data Available 19337 2023-08-10 No Data Available No Data Available Medication List Documented (1159F) 1159F 2023-08-10 No Data Available No Data Lena ilable BMI obtained (3008F) 3008F 2023-08-10 No Data Availab le No Data Available No Data Available 20869 2023-10-21 No Data Available No Data Available Medication List Documented (1159F) 1159F 2023-10-21 No Data Available No Data Lena ilable Estab. patient 30-39min; chronic exacerbation, 2 stable chronic or 1 acute illness add add modifier 95 for video, (do not use for phone, instead use 05800-22) 74182 2024-05-11 No Data Available No Data Availa [...] Available No Data Available No Data Available 14375 2024-05-14 No Data Available No Data Available Medication List Documented (1159F) 1159F 2024-05-14 No Data Available No Data Lena ilable No Data Available 88144 2024-06-20 No Data Available No Data Available Medication List Documented (1159F) 1159F 2024-06-20 No Data Available No Data Lena ilable Unlisted special service; to be used for medical record reviews and reporting CPTII codes (1111F, etc) 38518 2024-09-04 No Data Available No Data Availa ble SBP >= 140 3077F 2024-09-04 No Data Available No Data Available DBP >=90 3080F 2024-09-04 No Data Available No Data Available Estab. patient 10-29min; 1 minor problem; add add modifier 95 for video, modifier 93 for phone 32153 2024-12-18 No Data Available No Data Availa ble Medication List Documented (1159F) 1159F 2024-12-18 No Data Available No Data Lena ilable BMI obtained (3008F) 3008F 2024-12-18 No Data Availab le No Data Available Estab. patient 20-29min; 1 stable chronic or 2 minor; add add modifier 95 for video, modifier 93 for phone 95638 2025-02-18 No Data Available No Data Availa [...] 95 for video, modifier 93 for phone 42100 2025-07-03 No Data Available No Data Availa [...] rheumatoid factor, multiple sitesAtherosclerotic heart disease of squaxin coronary artery with unspecified angina pectoris;Peripheral vascular [...] discChronic gouty arthritis;Generalized osteoarthritisSchizophreniaAtherosclerotic heart disease of squaxin coronary artery with unspecified angina pectoris;Peripheral vascular disease, unspecified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, bilateral legsChronic obstructive pulmonary [...] to conditions classified elsewhereAtherosclerotic heart disease of squaxin coronary artery with unspecified angina pectoris;Peripheral vascular disease, unspecified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, bilateral legsChronic obstructive pulmonary [...] Documented (1125F)Continue to see PCP. Follow-up with [facility] as needed for any acute or [...] weight clinic - also endocr for [facility] MASending to podiatry per pt request.Also needs [...] area that had available staff.Pt to call [facility] and get name of PT providers in her area that are covered.Will investigate weight loss clinics.Pt to look for back exercises on YouTube, activity as tolerated.Will FU.BMI 49.25send to weight clinic but not [place]referral for weight clinic - also endocr for [facility] [place]10/21/2023Have not been able to find clinic that is covered by [facility] in er area. 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 Pt to call [facility] and find list of names of clinics.Will [...] area that had available staff.Pt to call [facility] and get name of PT providers in [...] our conversation of three days ago. Her ASSOCIATE PROFESSOR OF MUSICOLOGY is supposed to go tonight or tomorrow [...] modifier 95)Continue to see PCP. [facility] [...] our conversation of three days ago. Her ASSOCIATE PROFESSOR OF MUSICOLOGY is supposed to go tonight or tomorrow [...] mg dose. She will be traveling to [place] so she is to ask for emergency [...] our conversation of three days ago. Her ASSOCIATE PROFESSOR OF MUSICOLOGY is supposed to go tonight or tomorrow [...] mg dose. She will be traveling to [place] so she is to ask for emergency [...] for weight clinic - also endocr for [facility]10/21/2023Have not been able to find clinic that is covered by [facility] in er area. Pt to call [facility] and find list of names of clinics.Will [...] obtained (3008F)Continue to see PCP. 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 Dr. Pascual (PCP) has ordered walker [facility] [id number] Astrid [facility]ikCore[facility] Hospital[facility] [phone] referral to OT or PT for Tanesha [...] for medication review-discussed following up with her property clerk for eval, i.e need for echo-advised on [...] appt with PCP for medication review and property clerk for further eval such as possible echo; [...] s/sx and continue with PCP.-Member provided with [facility] incontinence refill line: [phone] 5.9% (08/22/24)Ha1c: 5.7% (05/15/2025- outside care)eGFR: 37 [...]
--- OUTSIDE RECORDS SUMMARY | 2025-07-24 09:42 | XMS_ITS | Encounter Summary ---
Author Organization [employer] Address [address] [facility] [address] [place] [address] Care Team Providers Care Leasing Property Manager Name Role Phone Violeta Boo MD Primary Care Provide r Encounter Details Date Type Department Care Team ([facility] st Contact Info) Description 07/20/2024 Telephone C OPTOMETRY [address] [place] [address] CadenAngella, OD [address] [place], [place] [phone] Social History Tobacco Use Types Packs/Day Years [...] 07/20/2024 3:24 PM EDT Called the Patient SHEET CUTTING OPERATOR Nikita Sneed, to inform her at the request of Dr. Negrete, OD. That the Patient Violeta Monterroso has to stop all eye drops until she has her follow up appointment with on @ 1:00pm. Eye Drops Brimonidime, 0.2% Ophthalmic Solution. Latanoprost 0.5% Ophthalmic Solution. documented in this encounter Plan of Treatment Not on file documented as of this encounter Visit Diagnoses Not on filedocumented in this encounter Care Teams Leasing Property Manager Relationship Specialty Start Date End Date Violeta Boo MD [address] [place] [address] PCP - General Family Medicine 05/21/22 documented as of this encounter
--- OUTSIDE RECORDS SUMMARY | 2025-07-24 09:42 | XMS_ITS | Encounter Summary ---
Author Organization [employer] Address [address] [facility] [address] [place] [address] Care Team Providers Care Shoe Maker Name Role Phone Violeta Boo MD Primary Care Provide r Reason for Visit * Reason Onset Date Comments Referral 12/07/2024 Encounter Details Date Type Department Care Team ([facility] st Contact Info) Description 12/07/2024 Telephone [facility] MEDICINE [address] [place], [place] [phone] Violeta Boo MD [address] [place] [address] Referral Social History Tobacco Use Types Packs/Day [...] - 12/07/2024 11:04 AM EST Tc from [facility] with [facility] as she states wrong referral was sent over she's requestingPhysical Therapy referral to be faxed over [facility] [phone]. documented in this encounter Plan of Treatment Not on file documented as of this encounter Visit Diagnoses Not on filedocumented in this encounter Additional Health Concerns Assessment Noted Time PHQ-9 Depression Total Score: 17 024 11:23 AM EDT documented as of this encounter Care Teams Shoe Maker Relationship Specialty Start Date End Date Violeta Boo MD [address] [place] [address] PCP - General Family Medicine 05/21/22 documented as of this encounter
--- OUTSIDE RECORDS SUMMARY | 2025-07-24 09:42 | XMS_ITS | Encounter Summary ---
Author Organization [employer] Address [address] [facility] [address] [place] [address] Care Team Providers Care Workers Compensation Claims Analyst Name Role Phone Violeta Boo MD Primary Care Provide r Reason for Visit * Reason Onset Date Comments Durable Medical Equipment 11/20/2024 Encounter Details Date Type Department Care Team ([facility] st Contact Info) Description 11/20/2024 Telephone [facility] MEDICINE [address] [place], [place] [phone] Violeta Boo MD [address] [place] [address] Durable Medical Equipment Social History Tobacco Use [...] any questions you can contact pt at [phone]. (Jamaican Speaker) documented in this encounter Plan of Treatment Not on file documented as of this encounter Visit Diagnoses Not on filedocumented in this encounter Additional Health Concerns Assessment Noted Time PHQ-9 Depression Total Score: 17 024 11:23 AM EDT documented as of this encounter Care Teams Workers Compensation Claims Analyst Relationship Specialty Start Date End Date Violeta Boo MD [address] [place] [address] PCP - General Family Medicine 05/21/22 documented as of this encounter
--- OUTSIDE RECORDS SUMMARY | 2025-07-24 09:42 | XMS_ITS | Encounter Summary ---
Author Organization [facility], Address [address] [place] [address] Phone Care Team Providers Care Accounting Supervisor Name Role Phone Violeta Boo MD Primary Care Provide r Encounter Details Date Type Department Care Team (Late Contact Info) Description 03/15/2022 Documentation Only [facility] [address] [place] [address] Shailesh Vallejo MD [address] [place] [address] [place] [address] Social History Tobacco Use Types [...] [facility] [address] [place] [address] Shailesh Vallejo MD [address] [place] [address] [place] [address] documented as of this encounter Visit Diagnoses Not on filedocumented in this encounter Care Teams Accounting Supervisor Relationship Specialty Start Date End Date Violeta Boo MD [address] [place] [phone] PCP - General Internal Medicine 03/21/23 documented as of this encounter
--- OUTSIDE RECORDS SUMMARY | 2025-07-24 09:42 | XMS_ITS | Encounter Summary ---
Author Organization [employer] Address [address] [facility] [address] [place] [address] Care Team Providers Care Roast Master Name Role Phone Violeta Boo MD Primary Care Provide r Reason for Visit * Reason Comments Med Refill Encounter Details Date Type Department Care Team ([facility] st Contact Info) Description 11/02/2024 Refill [facility] [address] [place], [place] [phone] Violeta Boo MD [address] [place], [place] [phone] Pain Social History Tobacco Use Types Packs/Day [...] documented as of this encounter Care Teams Roast Master Relationship Specialty Start Date End Date Violeta Boo MD [address] [place] [id number] PCP - General Family Medicine 05/21/22 documented as of this encounter
--- OUTSIDE RECORDS SUMMARY | 2025-07-24 09:42 | XMS_ITS | Encounter Summary ---
Author Organization [employer] Address [address] [facility] [address] [place] [address] Care Team Providers Care Biomedical Engineer Name Role Phone Violeta Boo MD Primary Care Provide r Reason for Visit * Reason Comments Med Refill Encounter Details Date Type Department Care Team (Late st Contact Info) Description 02/13/2023 Refill [facility] [address] [place], [place] [phone] Cassy Starks MD [address] [place] [address] Social History Tobacco Use Types Packs/Day Years [...] on filedocumented in this encounter Care Teams Biomedical Engineer Relationship Specialty Start Date End Date Violeta Boo MD [address] [place] [address] PCP - General Family Medicine 05/21/22 documented as of this encounter
--- OUTSIDE RECORDS SUMMARY | 2025-07-24 09:42 | XMS_ITS | Encounter Summary ---
Author Organization [employer] Address [address] [facility] [address] [place] [address] Care Team Providers Care Car Pincher Name Role Phone Vioelta Boo MD Primary Care Provide r Reason for Visit * Reason Comments Med Refill Encounter Details Date Type Department Care Team ([facility] st Contact Info) Description 04/09/2025 Refill [facility] [address] [place], [place] [phone] Violeta Boo MD [address] [place], [place] [phone] Social History Tobacco Use Types Packs/Day Years [...] as of this encounter Care Teams Car Pincher Relationship Specialty Start Date End Date Violeta Boo MD [address] [place] [phone] PCP - General Family Medicine 05/21/22 documented as of this encounter
--- OUTSIDE RECORDS SUMMARY | 2025-07-24 09:42 | XMS_ITS | Clinical Summary ---
Author Organization [employer] Address [address] [place] [address] 7 [place] [address] Care Team Providers Care Web User Experience Strategist Name Role Phone Violeta Boo MD Primary Care Provide r Allergies Active Allergy Reactions Criticality Noted Date Comments Aspirin Rash High 10/23/2012 Other reaction(s): rash Iodinated Contrast Media 10/30/2012 Peanut-Containing Drug Products High 01/17/2025 Other Reaction(s): ITCHY, SWELLING Plantain High 01/17/2025 Other Reaction(s): ITCHY/SWELLING Shellfish Allergy Rash High 01/17/2025 Tomato High 01/17/2025 Other Reaction(s): ITCHY, SWELLING Medications albuterol (ProAir HFA) 108 (90 Base) MCG/ACT inhaler Inhale every 6 (six) hours. 03/10/20 Active fluticasone (Flonase Allergy Relief) 50 MCG/ACT nasal spray Administer 2 sprays into affected nostril(s) 1 (one) time each day. 08/27/20 22 Active Fluticasone-Oneal meterol (Advair Diskus) 250-50 MCG/ACT aerosol powder Inhale 1 puff every 12 (twelve) hours. Active hydrocortisone (Anusol-HC) 2.5 % rectal cream Apply topically every 12 (twelve) hours. 07/09/20 Active lidocaine (Lidoderm) 5 % patch Place 1 patch on the skin in the morning. 04/06/20 22 Active meclizine (Antivert) 25 MG tablet [...] DAILY 50 strip 11 03/02/20 23 Active fexofenadine (Lelia) 180 MG tablet TAKE 1 TABLET BY MOUTH EVERY MORNING 30 tablet 11 03/30/20 23 Active fexofenadine (Lelia) 180 MG tablet TAKE 1 TABLET BY MOUTH EVERY MORNING 03/02/20 23 Active Acetaminophen Extra Strength 500 MG [...] daily. 28 g 2 03/01/20 24 Active Simethicone Ultra Strength 180 MG [...] other day. Active Blood Glucose Monitoring Suppl (GMI Ratings Verio Flex System) w/Device kit USE DIRECTED TO TEST BLOOD SUGAR TWICE DAILY 05/11/20 24 Active allopurinol (Zyloprim) 300 MG tablet Take 300 mg by mouth in the morning. Active gabapentin (Neurontin) 300 MG capsuleIndicati ons:Pain Take 1 capsule by mouth twice daily in the morning and in the evening 60 capsule 1 12/14/19 25 Active Ozempic, 0.25 or 0.5 MG/DOSE, 2 MG/3ML solution pen-injector INJECT 0.5 MG SUBCUTANEOUSLY EVERY 7 DAYS IN THE ABDOMEN, THIGHS, OR UPPER ARM, ROTATE INJECTION SITES. 3 mL 2 01/04/20 25 Active atorvastatin (Lipitor) 80 MG tablet TAKE 1 TABLET BY MOUTH EVERY MORNING 30 tablet 11 04/12/20 25 Active Calcium Carb-Cholecalci ferol 600-10 MG-MCG tablet TAKE 1 TABLET BY MOUTH TWICE DAILY IN THE MORNING AND IN THE EVENING 60 tablet 11 04/12/20 25 Active Ferrous Sulfate (iron) 325 (65 Fe) MG tablet TAKE 1 TABLET BY MOUTH EVERY MORNING 30 tablet 11 04/12/20 25 Active montelukast (Singulair) 10 MG tablet TAKE 1 TABLET BY MOUTH EVERY EVENING 30 tablet 11 04/12/20 25 Active pantoprazole (ProtoNix) 40 MG EC tablet TAKE 1 TABLET BY MOUTH EVERY MORNING 30 tablet 11 04/12/20 25 Active doxepin (SINEquan) 25 MG capsuleIndicati ons:Chronic pruritus TAKE 1 CAPSULE BY MOUTH AT BEDTIME 90 capsule 1 05/09/20 25 Active metoprolol succinate XL (Toprol-XL) 50 MG 24 hr tablet TAKE 1 TABLET BY MOUTH EVERY MORNING 90 tablet 1 05/15/20 25 Active Semaglutide, 2 MG/DOSE, (Ozempic, 2 MG/DOSE,) 8 MG/3ML solution pen-injectorInd ications:Predia betes Inject 0.75 mL (2 mg) under the skin 1 (one) time per week. 2 mL 6 05/15/20 25 Active cholecalciferol (Vitamin D-3) 25 MCG (1000 UT) tabletIndicatio ns:Morbid obesity (CMS/HCC) Take 1 tablet (25 mcg) by mouth Once per day. 60 tablet 1 05/15/20 25 Active diphenhydrAMINE (BENADryl) 25 MG capsuleIndicati ons:Seasonal allergies Take 1 capsule (25 mg) by mouth every 6 (six) hours if needed for itching for up to 10 days. 30 capsule 05/15/20 25 Active losartan (Cozaar) 100 MG tablet Take 1 tablet (100 mg) by mouth Once per day. 90 tablet 1 05/28/20 25 Active chlorthalidone (Hygroton) 25 MG tablet TAKE 1 TABLET BY MOUTH EVERY MORNING 90 tablet 1 06/05/20 25 Active Ozempic, 1 MG/DOSE, 4 MG/3ML solution pen-injectorInd ications:Predia betes Inject 1 MG SUBCUTANEOUSLY EVERY 7 DAYS IN THE ABDOMEN, THIGHS OR UPPER ARM. ROTATE INJECTION SITES. 3 mL 1 06/05/20 25 Active Otezla 30 MG tablet 05/23/20 25 Active BP Wash 10 % external wash 06/06/20 25 Active Clindamycin Phosphate (Clindamycin Phos, Twice-Daily,) 1 % gel 06/06/20 25 Active Active Problems Problem Noted Date Diagnosed Date Psoriatic arthritis 05/15/2025 Assessment & Plan (05/15/2025 4:08 PM EDT): I will prescribe her patient her recliner to help her with her daily life and activities Psychosis, unspecified psychosis type 05/15/2025 Assessment & Plan (05/15/2025 4:07 PM EDT): Stable continue with same interventions Spondylosis of lumbar region without myelopathy or radiculopathy 05/15/2025 Assessment & Plan (05/15/2025 4:08 PM EDT): Continue to follow-up with pain management I will prescribe for patient a recliner to help her with her daily life and activities Acute pain of both shoulders 05/15/2025 Assessment & Plan (05/15/2025 4:07 PM EDT): X-rays ordered patient will be contacted with results Bilateral hand pain 05/15/2025 Assessment & Plan (05/15/2025 4:07 PM EDT): X-ray ordered, patient will be contacted with results Pain of toe of left foot 05/15/2025 Encounter for screening mamm ogram for malignant neoplasm of breast 08/13/2024 ZOEY (obstructive sleep apnea) 04/30/2024 Assessment & Plan (04/30/2024 3:23 PM EDT): Sleep studies will be ordering today after results likely proper CPAP prescription and referral to sleep medicine Pelvic pain 03/29/2024 Assessment & Plan (08/13/2024 1:13 PM EDT): Being follow by [facility] MANAGER [facility] is pending Vaginal pain 03/29/2024 Rectal pain 03/29/2024 Assessment & Plan (08/13/2024 1:12 PM EDT): Patient is schedule for colonoscopy with Dr Manzano Hearing deficit, bilateral 03/29/2024 Family hx of colon cancer requiring screening co lonoscopy 03/01/2024 Family history of cancer 03/01/2024 Prediabetes 03/01/2024 Assessment & Plan (05/15/2025 4:06 PM EDT): Extensive counseling about healthy diet and exercise on today I will went up on her Ozempic to 2 mg weekly Assessment & Plan (08/13/2024 1:00 PM EDT): [...] on scalp once per day and FU design transferrer. Otitis externa 12/16/2022 Assessment & Plan (12/16/2022 [...] 08/08/2018 Essential hypertension 08/08/2018 Assessment & Plan (05/15/2025 4:06 PM EDT): I advised: - Aerobic exercise to reduce [...] consulting health care provider Assessment & Plan (08/13/2024 1:00 PM EDT): [...] 08/08/2018 Morbid obesity 08/08/2018 Assessment & Plan (05/15/2025 4:06 PM EDT): Counseling about healthy diet and exercise done today I will go up on her Ozempic to 2 mg weekly Assessment & Plan (12/16/2022 1:59 PM EST): Discussed re weight reduction options including exercise, life style modifications, diet, referral to senior contract specialist. Discussed re lower calorie intake, increase dietary fiber Pt agreed to be referred to dietitian. 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 04/30/2024 Encounters Date Type Department Care Team Description 06/27/2025 Telephone [facility] [address] [place] [address] Violeta Boo MD Results 06/12/2025 Telephone [facility] [address] [place] [address] Violeta Boo MD 06/07/2025 9:30 AM EDT Office Visit [facility] [address] [place] [address] Caden, Angella, OD Glaucoma suspect of both eyes (Primary Dx); H/O laser iridotomy; Congenital hypertrophy of retinal pigment epithelium; Pseudophakia of both eyes; Presbyopia 06/07/2025 Telephone [facility] [address] [place] [address] Violeta Boo MD Medication Question 06/07/2025 Travel 06/04/2025 Refill [facility] [address] [place] [address] Violeta Boo MD Prediabetes 05/28/2025 Refill [facility] [address] [place], [place] [phone] Violeta Boo MD 05/23/2025 Orders Only GENERIC EXTERNAL DATA DEPARTMENT Provider, Generic External Data 05/22/2025 Results Follow-Up [facility] [address] [place] [address] Violeta Boo MD XR Shoulder 2+ Views Bilateral, XR Foot 3+ Views Left 05/22/2025 Orders Only [facility] [address] [place] [address] Violeta Boo MD 05/16/2025 Telephone [facility] [address] [place] [address] Violeta Boo MD DME for recliner 05/15/2025 11:30 AM EDT Office Visit [facility] [address] [place] [address] Violeta Boo MD Essential hypertension (Primary Dx); Prediabetes; Psoriatic arthritis (CMS/HCC); Psychosis, unspecified psychosis type (CMS/HCC); Morbid obesity (CMS/HCC); Spondylosis of lumbar region without myelopathy or radiculopathy; Seasonal allergies; Acute pain of both shoulders; Bilateral hand pain; Pain of toe of left foot 05/15/2025 Travel 05/14/2025 Telephone [facility] [address] [place] [address] Violeta Boo MD Nurse Triage 05/14/[address] [address] Violeta Boo MD Medication Question 05/14/2025 Refill [facility] [address] [place] [address] [phone] Violeta Boo MD 2025 Telephone [facility] [address] [place] [phone] Violeta Boo MD [facility] Request 05/08/2025 Refill [facility] [address] [place] [phone] Violeta Boo MD Chronic pruritus from Last 3 Months Immunizations Immunization Administration [...] Mass Index 48.93 05/15/2025 11:34 AM EDT Plan of Treatment Health Maintenance Due Date Last Done Comments CT Colonography 1950 FIT DNA/Cologuard 1950 FIT 1950 FOBT 1950 Sigmoidoscopy 1950 Alcohol/Substance Use Screening 1964 RSV Patients and Patients Aged 60 years or older (1 - Risk 60-74 years 1-dose series) 2012 DTaP/Tdap/Td Vaccines (2 - Td or Tdap) 01/29/2023 01/29/2013 SDOH Screening 01/24/2025 01/25/2024 Depression Monitoring 02/10/2025 08/13/2024, 024 COVID-19 Vaccine (6 - Pfizer risk season) 2025 08/13/2024, 09/07/2023, 08/26/2022, Additional history exists Influenza Vaccine (#1) 2025 , 09/07/2023, 08/26/2022, Additional history exists Mammogram 08/30/2025 08/30/2024, 04/15, 05/11/2022, Additional history exists Tobacco Screening 06/20/2026 06/20/2025 Diabetes: Hemoglobin A1C 07/03/2026 025, 05/15/2025, 08/13/2024, Additional history exists Colonoscopy 06/11/2027 06/11/2022 Colorectal Cancer Screening 06/11/2027 Lipid Panel 05/30/2030 05/30/2025, 03/15/2022 Zoster Vaccines Completed 11/29/2019, 11/14, 08/22/2019, Additional history exists Pneumococcal Vaccine: 50+ Years Completed 08/13/2024, 03/19/2019, 12/12/2017, Additional history exists Hepatitis C Screening Completed 05/30/2025, 020 HIB Vaccines Aged Out No longer eligi [...] Procedure Name Priority Date/Time Associated Diagnosis Comments OCT, OPTIC NERVE - OU - BOTH EYES Routine 06/07/2025 9:30 AM EDT Glaucoma suspect of both eyes TSH W/REFLEX TO FT4 Routine 05/30/2025 1 0:20 AM EDT Essential hypertension VITAMIN D,25-OH,TOTAL,IA Routine 05/30/2025 10:20 AM EDT Essential hypertension LIPID PANEL, STANDARD Routine 05/30/2025 10:20 AM EDT Essential hypertension HEPATITIS C AB W/REFL TO HCV RNA, QN, PCR Routine 05/30/2025 10:20 AM EDT Essential hypertension HIV 1/2 ANTIGEN/ANTIBODY, FOURTH GENERATION W/RFL Routine 05/30/2025 10:20 AM EDT Essential hypertension COMPREHENSIVE METABOLIC PANEL Routine 05/30/2025 10:20 AM EDT Essential hypertension CBC WITH AUTO DIFFERENTIAL Routine 05/30/2025 10:20 AM EDT Essential hypertension SED RATE BY MODIFIED WESTERGREN Routine 05/23/2025 11:30 AM EDT VITAMIN D,25-OH,TOTAL,IA Routine 05/23/2025 11:30 AM EDT C-REACTIVE PROTEIN Routine 05/23/2025 11 :30 AM EDT URIC ACID Routine 05/23/2025 11:30 AM EDT COMPREHENSIVE METABOLIC PANEL Routine 05/23/2025 11:30 AM EDT CBC WITH AUTO DIFFERENTIAL Routine 05/23/2025 11:30 AM EDT XR HAND 3+ VIEWS BILATERAL Routine 05/21/2025 12:40 PM EDT XR SHOULDER 2+ VIEWS BILATERAL Routine 05/21/2025 12:40 PM EDT XR FOOT 3+ VIEWS LEFT Routine 05/21/2025 12:40 PM EDT Pain of toe of left foot POCT GLYCATED HEMOGLOBIN, TOTAL Routine 05/15/2025 12:15 PM EDT Prediabetes POCT GLUCOSE Routine 05/15/2025 12:14 PM EDT Prediabetes BI MAMMOGRAM SCREENING TOMOSYNTHESIS BILATERAL Routine 08/30/2024 9:10 AM EDT HM COLONOSCOPY Routine 06/11/2022 from Last 3 Months or Most Recently Relevant to Health Maintenance Results * OCT, Optic Nerve - OU - Both Eyes (06/07/2025 9:30 AM EDT) Angella Cuevas, OD - 06/21/2025 1:39 PM EDT Images from the original result were not included. Right Eye Images reviewed and comparison made to baseline. Reliability: good and adequate. Left Eye Images reviewed and comparison made to baseline. Reliability: good and adequate. Notes OCT OPTIC NERVE INTERPRETATION Optical Coherence Tomography Interpretation Report Test Details: Measurements: OD OS C/D Horizontal 0.46 0.67 C/D Vertical 0.45 0.66 Disc area 2.55 mm 2 2.53 mm 2 RNFL Average 108 microns 101 microns Test findings: OD: Thicker than average RNFL in temporal quadrant, Normal RNFL thickness in all other quadrants OS: Thicker than average RNFL in temporal quadrant, Normal RNFL thickness in all other quadrants Impression and Plan: Right eye (OD): stable RNFL thickness compared to 05/2024. Left eye (OS): 2 micron decrease in average RNFL compared to 05/2024. Stable to previous scan, will Monitor in 1 year. Glaucoma workup not indicated at this time. Angella Negrete OD OPHTH TOMOGRAPHY Final Result * Vitamin D, 25-Hydroxy, Total, Immunoassay (05/30/2025 10:20 AM EDT) Only the most recent of2 resultswithin the time period is included. Vitamin D 25-OH Total 37.8 >30 ng/mL [facility] Comment: Health Based Reference Values*< 20 ng/mL Yguylnoff15-52 ng/mL Insufficient> 30 ng/mL Sufficient*Marcella CLARK. N [...] BLOOD ORDERABLES Final Result Performing Organization Address City/[facility]/ZIP Co de Phone Number [facility] [address] [place] [phone] * TSH with Reflex to Free T4 (05/30/2025 10:20 AM EDT) TSH reflex Free T4 3.61 0.32 - 4.0 uIU/mL [facility] Blood Venous blood specimen / Unknown 05/30/2025 10:20 AM EDT 05/30/2025 10:20 AM EDT us Violeta Pascual MD LAB BLOOD ORDERABLES Final Result Performing Organization Address City/[facility]/ZIP Co de Phone Number [facility] [address] [place] [address] [phone] * CBC auto differential (05/30/2025 10:20 AM EDT) Only the most recent of2 resultswithin the time period is included. White Blood Count 7.9 4.8 - 10.8 X10*3/uL [facility] Red Blood Count 4.54 4.20 - 5.50 X10*6/uL [facility] Hemoglobin 13.6 12.0 - 16.0 g/dl [facility] Hematocrit 41.5 37.0 - 47.0 % [facility] Mean Corpuscular Volume 91.4 80.0 - 98.0 fL [facility] Mean Corpuscular Hemoglobin 30.0 27.0 - 33.0 pg [facility] Mean Corpuscular HGB Conc 32.8 31.0 - 35.0 g/dl [facility] Red Cell Distribution Width 14.4 11.0 - 16.0 % [facility] Platelet Count 291 160 - 400 X10*3/uL [facility] Mean Platelet Volume 10.6 9.4 - 12.3 fL [facility] Neutrophils Percent Auto 66.1 45 - 73 % [facility] Imm Gran Pct Auto 0.4 0.0 - 0.4 % [facility] Lymphocytes Percent Auto 25.3 20 - 40 % [facility] Monocytes Percent Auto 6.2 2 - 11 % [facility] Eosinophils Percent Auto 1.6 0 - 4 % [facility] Basophils Percent Auto 0.4 0 - 2 % [facility] NRBC Pct Auto 0.0 0.0 - 0.2 /100WBC [facility] Neutrophils Absolute Auto 5.2 2.0 - 8.3 x10*3/uL [facility] Imm Gran Abs Auto 0.03 0.00 - 0.03 X10*3/uL [facility] Lymphocytes Absolute Auto 2.0 1.2 - 4.9 X10*3/uL [facility] Monocytes Absolute Auto 0.5 0.1 - 1.2 X10*3/uL [facility] Eosinophils Absolute Auto 0.1 0.0 - 0.4 X10*3/uL [facility] Basophils Absolute Auto 0.0 0.0 - 0.2 X10*3/uL [facility] NRBC Abs Auto 0.000 0.0 - 0.012 X10*3/uL [facility] Blood Venous blood specimen / Unknown 05/30/2025 10:20 AM EDT 05/30/2025 10:20 AM EDT Violeta Pascual MD LAB BLOOD ORDERABLES Final Result Performing Organization Address [facility] Co de Phone Number [facility] [address] [place] [phone] * Hepatitis C Antibody with Reflex to HCV, RNA, Quantitative, Real-Time PCR (05/30/2025 10:20 AM EDT) [facility] Hepatitis C Antibody Nonreactive Nonreactive [facility] Comment:Antibodies to HCV no t detected; does not exclude early acuteHCV infection. Blood Venous blood specimen / Unknown 05/30/2025 10:20 AM EDT 05/30/2025 10:20 AM EDT Violeta Pascual MD LAB BLOOD ORDERABLES Final Result Performing Organization Address [facility] Co de Phone Number [facility] [address] [place] [phone] * HIV-1/2 Antigen and Antibodies, Fourth Generation, with Reflexes (05/30/2025 10:20 AM EDT) Pathologist [facility] HIV AB/AG Nonreactive Nonreactive [facility] Comment:HIV-1 p24 Ag and/or HIV-1/HIV-2 Ab not detected.A test result that is nonreactive does not exclude thepossibility of exposure to or infection with HIV-1 and/orHIV-2. Nonreactive results in this assay for individualswith prior exposure to HIV-1 and/or HIV-2 may be due toantigen and antibody levels that are below the limit ofdetection of this assay.The [employer] HIV Ag/Ab Combo assay result andsupplemental assay results should be interpreted inconjunction with the patient's clinical presentation,history and other laboratory results. If the results areinconsistent with clinical evidence, additional testing issuggested to confirm the result. Blood Venous blood specimen / Unknown 05/30/2025 10:20 AM EDT 05/30/2025 10:20 AM EDT us Violeta Pascual MD LAB BLOOD ORDERABLES Final Result Performing Organization Address [facility] Co de Phone Number [facility] [address] [place] [phone] * (ABNORMAL) Lipid Panel, Standard (05/30/2025 10:20 AM EDT) Triglycerides 214(H) <150 mg/dL [facility] Comment:Desirable Triglyceri de: less than 150 mg/dLBorderline High Triglyceride 150-199 mg/dLHigh Triglyceride: 200-499 mg/dLVery High Triglyceride: greater than or equal to 5OO mg/dL Cholesterol 140 <200 mg/dL [facility] Comment:Desirable Cholestero l: less than 200 mg/dLBorderline High Cholesterol: 200-239 mg/dLHigh Cholesterol: greater than 239 mg/dL LDL Cholesterol Calculated 69 <100 mg/dL [facility] Comment:Desirable LDL: less than 100 mg/dLNear Optimal/Above Optimal LDL: 110- 129 mg/dLBorderline High LDL: 130-159 mg/dLHigh LDL: 160-189 mg/dLVery High LDL: greater than or equal to 190 mg/dL HDL Cholesterol 29(L) >40 mg/dL [facility] Comment:Desirable HDL: great er than 40 mg/dL Note: This HDL assay may give artificially low results in patients with liver disease. Blood Venous blood specimen / Unknown 05/30/2025 10:20 AM EDT 05/30/2025 10:20 AM EDT us Violeta Pascual MD LAB BLOOD ORDERABLES Final Result Performing Organization Address [facility] Co de Phone Number [facility] [address] [place] [phone] * (ABNORMAL) Comprehensive Metabolic Panel (05/30/2025 10:20 AM EDT) Only the most recent of2 resultswithin the time period is included. Sodium 141 135 - 145 mmol/L [facility] Potassium 3.8 3.3 - 5.1 mmol/L [facility] Chloride 104 96 - 108 mmol/L [facility] Carbon Dioxide 27 22 - 29 mmol/L [facility] Anion Gap 14 12 - 20 [facility] Urea Nitrogen (BUN) 24(H) 9 - 16 mg/dL [facility] Creatinine, Serum 1.41(H) 0.5 - 1.4 mg/dL [facility] Estimated Glomerular Filt Rate 37 [facility] Comment:Chronic Kidney Disea se: Estimated GFR < 60 mL/min/1.73x0Qbrsks Kidney Disease: Estimated GFR < 15 mL/min/1.73m2 Glucose 115 60 - 115 mg/dL [facility] Calcium 9.4 8.4 - 10.2 mg/dL [facility] Bilirubin, Total 0.6 0.0 - 1.0 mg/dL [facility] Aspartate Amino Transferase 25 5 - 31 U/L [facility] Alanine Aminotransferase 18 0 - 31 U/L [facility] Total Protein 6.6 6.5 - 8.0 g/dL [facility] Albumin Level 4.1 3.5 - 5.0 g/dL [facility] Alkaline Phosphatase 136(H) 39 - 117 U/L [facility] Blood Venous blood specimen / Unknown 05/30/2025 10:20 AM EDT 05/30/2025 10:20 AM EDT us Violeta Pascual MD LAB BLOOD ORDERABLES Final Result [facility] [address] [place] [phone] * (ABNORMAL) Sed Rate by Modified Westergren (05/23/2025 11:30 AM EDT) Erythrocyte Sedimentation Rate 26(H) 0 - 20 MM/HR [facility] Comment:Patients with polycy themia and many hemoglobin abnormalitiesmay have depressed sed rates whereas patients with anemiamay have elevated sed rates. 05/23/2025 11:3 0 AM EDT 05/23/2025 11:30 AM EDT us Generic External Data Provider LAB BLOOD ORDERAB LES Final Result Performing Organization Address [facility] Co de Phone Number [facility] [address] [place] [phone] * C-reactive Protein (05/23/2025 11:30 AM EDT) C Reactive Protein 0.30 < or = 0.50 mg/dL [facility] 05/23/2025 11:3 0 AM EDT 05/23/2025 11:30 AM EDT Generic External Data Provider LAB BLOOD ORDERAB LES Final Result Performing Organization Address [facility] Co de Phone Number [facility] [address] [place] [address] [phone] * Uric acid (05/23/2025 11:30 AM EDT) Uric Acid 5.7 2.4 - 5.7 mg/dL [facility] 05/23/2025 11:3 0 AM EDT 05/23/2025 11:30 AM EDT Generic External Data Provider LAB BLOOD ORDERAB LES Final Result Performing Organization Address [facility] Co de Phone Number [facility] [address] [place] [phone] * XR Shoulder 2+ Views Bilateral (05/21/2025 12:40 PM EDT) Anatomical Region Laterality Modality Upper Extremities, Shoulder Bilateral Radi ographic Imaging 05/21/2025 12:4 0 PM EDT Narrative 05/21/2025 1:10 PM EDT [address] [address] XRay Report Signed Patient: Violeta Alvarenga V MR#: [id number] : 1950 Acct:[id number] Age/Sex: 75 / F ADM Date: 05/21/25 Loc: HO.XRAY Attending Dr: Violeta Pascual MD Ordering Physician: Violeta Boo MD Date of Service: 05/21/25 Procedure(s): XR Shoulder Pablo min 2V Accession Number(s): [id number] cc: Violeta oBo MD EXAMINATION: XR SHOULDER, PABLO MIN 2V CLINICAL INFORMATION: pain s/p fall [...] and bony structures appear normal. XR/XR Shoulder Pablo min 2V IMPRESSION: 1. No acute bony [...] 05/21/25 1306 DD/ 1240 TD/TT: 05/21/25 1258 Head Pastry Chef: Procedure Note Donotrambointerpreter, Image - 05/21/[address] [address] XRay Report Signed Patient: Violeta Alvarenga VMR#: [id number] : 1950cct:[id number] Age/Sex: 75 / FADM Date: 05/21/25 Loc: HO.CARYL Attending Dr: Violeta Pascual MD Ordering Physician: Violeta Boo MD Date of Service: 05/21/25 Procedure(s): XR Shoulder Pablo min 2V Accession Number(s): [id number] cc: Violeta Boo MD EXAMINATION: XR SHOULDER, PABLO MIN 2V CLINICAL INFORMATION: pain s/p fall [...] and bony structures appear normal. XR/XR Shoulder Pablo min 2V IMPRESSION: 1. No acute bony [...] 05/21/25 1306 DD/ 1240 TD/TT: 05/21/25 1258 Head Pastry Chef: Violeta Pascual MD IMG XR PROCEDURES Shemar daylin Result - Final * XR Hand 3+Views Bilateral (05/21/2025 12:40 PM EDT) Anatomical Region Laterality Modality Upper Extremities, Hand Bilateral Radiogra phic Imaging 05/21/2025 12:4 0 PM EDT Narrative 05/21/2025 1:12 PM EDT [place] [address] XRay Report Signed Patient: Violeta Alvarenga V MR#: [id number] : 1950 Acct:[id number] Age/Sex: 75 / F ADM Date: 05/21/25 Loc: HO.MIKIAY Attending Dr: Violeta Pascual MD Ordering Physician: Violeta Boo MD Date of Service: 05/21/25 Procedure(s): XR Hand Bilat min 3v Accession Number(s): [id number] cc: Violeta Boo MD Three-view bilateral hand [...] 05/21/25 1309 DD/ 1240 TD/TT: 05/21/25 1258 Head Pastry Chef: Procedure Note Donotuseinterpreter, Image - 05/21/[address] [address] XRay Report Signed Patient: Violeta Alvarenga VMR#: [id number] : 1950cct:[id number] Age/Sex: 75 / FADM Date: 05/21/25 Loc: HO.MIKIAY Attending Dr: Violeta Pascual MD Ordering Physician: Violeta Boo MD Date of Service: 05/21/25 Procedure(s): XR Hand Bilat min 3v Accession Number(s): [id number] cc: Violeta Boo MD Three-view bilateral hand [...] 05/21/25 1309 DD/ 1240 TD/TT: 05/21/25 1258 Head Pastry Chef: Violeat Pascual MD IMG XR PROCEDURES Shemar daylin Result - Final * XR Foot 3+ Views Left (05/21/2025 12:40 PM EDT) Anatomical Region Laterality Modality Lower Extremities, Foot Left Radiogra phic Imaging 05/21/2025 12:4 0 PM EDT Narrative 05/21/2025 1:05 PM EDT [place] [address] XRay Report Signed Patient: Violeta Alvarenga V MR#: [id number] : 1950 Acct:[id number] Age/Sex: 75 / F ADM Date: 05/21/25 Loc: HO.MIKIAY Attending Dr: Violeta Pascual MD Ordering Physician: Violeta Boo MD Date of Service: 05/21/25 Procedure(s): XR foot LT min 3V Accession Number(s): [id number] cc: Violeta Boo MD EXAMINATION: XR FOOT, [...] Santiago Rodriguez MD 05/21/2025 01:02 PM EDT RP Dictated By: Santiago Squires MD Signed By: <Electronically signed by Santiago Gaston MD in OV> 05/21/25 1302 DD/ 1240 TD/TT: 05/21/25 1258 Head Pastry Chef: Procedure Note Soniter, Image - 05/21/[address] [address] XRay Report Signed Patient: Violeta Alvarenga VMR#: [id number] : 2Acct:[id number] Age/Sex: 75 / FADM Date: 05/21/25 Loc: HO.XRAY Attending Dr: Violeta Pascual MD Ordering Physician: Violeta Boo MD Date of Service: 05/21/25 Procedure(s): XR foot LT min 3V Accession Number(s): [id number] cc: Violeta Boo MD EXAMINATION: XR FOOT, [...] 05/21/25 1302 DD/ 1240 TD/TT: 05/21/25 1258 Head Pastry Chef: Violeta Pascual MD IMG XR PROCEDURES Shemar daylin Result - Final * (ABNORMAL) POCT HGB A1C (05/15/2025 12:15 PM EDT) Hemoglobin A1C 5.7 4.0 - 5.7 % QC Media Lot # [id number] Lot# Expiration Date , Blood 05/15/2025 12:1 5 PM EDT Violeta [...] TEST EN TER/EDIT ORDERABLES Final Result * BI Mammogram Screening Tomosynthesis Bilateral (08/30/2024 9:10 AM EDT) Anatomical Region Laterality Modality Breast Bilateral Mammography 08/30/2024 9:10 AM EDT Narrative 09/11/2024 12:30 PM EDT [facility] [address] [place], [place] [address] Mammography Report Signed with Addenda Patient: Violeta Alvarenga V MR#: [id number] : 1950 Acct:[id number] Age/Sex: 74 / F ADM Date: 08/30/24 Loc: HO.MAMMO Attending Dr: Violeta Pascual MD Ordering Physician: Violeta Boo MD Results: 2Benign Findings Date of Service: 08/30/24 Follow Up: 1 Year From Orig inal Mammogram Procedure(s): MM tomosynthesis screening BI Accession Number(s): [id number] cc: Violeta Boo MD ADDENDUM ADDENDUM #1 [...] DO Addendum Signed By: <Electronically signed by Radhika Douglas DO in OV> 09/14/24 1026 Addendum Cosigned By: [...] OV> 09/11/24 1227 DD/ 9 TD/TT: 08/30/24924 Head Pastry Chef: Procedure Note Donotuseinterpreter, Image - 09/14/2024 [facility] [address] [place] [address] Mammography Report Signed with Addenda Patient: Karl AdamsonVioleta skaggs VMR#: [id number] : 1950cct:[id number] Age/Sex: 74 / FADM Date: 08/30/24 Loc: HO.MAMMO Attending Dr: Violeta Pascual MD Ordering Physician: Violeta Boo MDResults: 2Benign Findings Date of Service: 08/30/24Follow Up: 1 Year From Orig ina Mammogram Procedure(s): MM tomosynthesis screening BI Accession Number(s): [id number] cc: Violeta Boo MD ADDENDUM ADDENDUM #1 [...] OV> 09/11/24 1227 DD/ 9 TD/TT: 08/30/24924 Head Pastry Chef: Violeta Pascual MD IMG BI PROCEDURES Shemar daylin Result - Final * Hm Colonoscopy (06/11/2022) us Historical Provider HEALTH MAINTENANCE Final Result from Last 3 Months or Most Recently Relevant to Health Maintenance Insurance Care Teams Web User Experience Strategist Relationship Specialty Start Date End Date Violeta Boo MD [address] [place] [address] PCP - General Family Medicine 05/21/22
--- OUTSIDE RECORDS SUMMARY | 2025-07-24 09:42 | XMS_ITS | Clinical Summary ---
Author Organization 175 [facility] Address 175 [place] [address] Phone Care Team Providers Care Log Snaker Name Role Phone Zheng Boo MD Primary [...] 0.1 % cream Apply topically. 3 Active Hospital, Clinic, or Other Facility Administered Medication Ordered Dose Route Frequency Start Date End Date Status lidocaine (XYLOCAINE) 1 % injection 1 mLIndications:Trigge r thumb of right hand 1 mL inj Once PRN Procedure 07/22/2025 07/22/2025 Ended lidocaine (XYLOCAINE) 1 % injection 1 mLIndications:Acquir ed trigger finger of right index finger 1 mL inj Once PRN Procedure 07/22/2025 07/22/2025 Ended triamcinolone acetonide (KENALOG-40) 40 mg/mL injection 40 mgIndications:Trigge r thumb of right hand 40 mg IAtc Once PRN Procedure 07/22/2025 07/22/2025 Ended triamcinolone acetonide (KENALOG-40) 40 mg/mL injection 40 mgIndications:Acquir ed trigger finger of right index finger 40 mg IAtc Once PRN Procedure 07/22/2025 07/22/2025 Ended Active Problems Problem Noted Date Diagnosed Date Anxiety 10/08/2024 Asthma 10/08/2024 Chronic kidney disease, stag e III (moderate) ([facility] V24, [facility] V28) 10/08/2024 Essential hypertension, benign 10/08/2024 Hyperlipidemia 10/08/2024 Osteopenia 10/08/2024 Primary osteoarthritis of both knees 10/08/2024 Psychotic disorder ([facility] V24, [facility] V28) Tubular adenoma of colon 10/08/2024 [...] appointment Onychomycosis 03/08/2023 Type 2 diabetes mellitus ([facility] V24, [facility] V 28) 01/31/2023 Otitis externa 12/16/2022 [...] Chronic gouty arthritis 09/08/2018 Episodic mood disorder ([facility] V24) 08/08/2018 Generalized osteoarthritis 08/08/2018 Morbid obesity ([facility] V24, [facility] V28) 2017 Overview (10/08/2024): Last Assessment & Plan: Discussed re weight reduction options including exercise, life style modifications, diet, referral to green marketing specialist. Discussed re lower calorie intake, increase dietary fiber Pt agreed to be referred to dietitian. Non-cardiac chest pain 08/08/2018 Seasonal allergies 08/08/2018 Unintended awareness under g eneral anesthesia during procedure 08/08/2018 Encounters Date Type Department Care Team Description 07/22/2025 1:45 PM EDT Office Visit Orthopedic [facility] 250 [address] [facility] [address] [place] [phone] Cortez Malik MD Trigger thumb of right hand (Primary Dx); Acquired trigger finger of right index finger 07/18/2025 11:00 AM EDT Office Visit Bariatric Surgery [facility] 175 [facility] [address] [place] [phone] Lauren Eisenberg MD Morbid obesity with BMI of 45.0-49.9, adult ([facility] V24, [facility] V28) (Primary Dx); Gastroesophageal reflux disease, unspecified whether esophagitis present; Type 2 diabetes mellitus with obesity ([facility] V24, [facility] V28) 06/12/2025 10:30 AM EDT Consult [facility]opedic [facility] 175 [facility] [address] [place] [phone] Cortez Malik MD Arthritis of carpometacarpal (CMC) [...] on file Sexual Orientation Not on file Obstetrics History Last Filed Vital Signs Vital Sign Reading Time Taken Comments Blood Pressure 130/86 07/18/2025 11:11 AM EDT Pulse 72 07/18/2025 11:11 AM EDT Temperature - - Respiratory Rate - - Oxygen Saturation - - Inhaled Oxygen Concentration - - Weight 122 kg (270 lb) 07/18/2025 11:11 AM EDT Height 160 cm (5' 3 ) 07/18/2025 11:11 AM EDT Body Mass Index 47.83 07/18/2025 11:11 AM EDT Plan of Treatment Upcoming Encounters Date Type Department Care Team (Late st Contact Info) Description 08/09/2025 2:00 PM EDT Office Visit [facility] [address] [phone] Maury Godoy DPTeri [address] [address] 10/21/2025 2:00 PM EST Nutrition Bariatric Surgery - [place] [address] [phone] Elana Aviles, RD [address] [address] Health Maintenance Due Date Last Done Comments Breast Cancer Screening 1950 Diabetes: Annual Foot Exam 1962 Diabetes: Annual Retina Eye Exam 1962 RSV Immunization Adult Patients (1 - Risk 60-74 years 1-dose series) 2012 Colorectal Cancer Screening: Colonoscopy 10/24/2022 Falls Risk Assessment 10/24/2022 Social Influencers of Health Screening 10/24/2022 [...] Procedure Name Priority Date/Time Associated Diagnosis Comments NH INJECTION SINGLE TENDON SHEATH OR LIGAMENT APONEUROSIS Routine 07/22/2025 1:45 PM EDT Acquired trigger finger of right index finger NH INJECTION SINGLE TENDON SHEATH OR LIGAMENT APONEUROSIS Routine 07/22/2025 1:45 PM EDT Trigger thumb of right hand XR HAND 3+ VIEWS RIGHT Routine 07/22/2025 1:42 PM EDT Pain NH ARTHROCENTESIS/ASPI RATION/INJECTION SMALL JOINT/BURSA WO U/S GUIDANCE Routine 06/12/2025 10:30 AM EDT Arthritis of carpometacarpal (CMC) joint of left thumb XR WRIST 3+ VIEWS LEFT Routine 06/12/2025 10:14 AM EDT Tear of left scapholunate ligament HM ANNUAL BMP BLOOD TEST Routine 03/01/2024 HEMOGLOBIN A1C Routine 08/09/2022 LIPID PANEL Routine 03/15/2022 from Last 3 Months or Most Recently Relevant to Health Maintenance Results * NH INJECTION SINGLE TENDON SHEATH OR LIGAMENT APONEUROSIS [...] with patient: Verbal Pre-procedure timeout performed: yes Cortez Malik MD IN CLINIC/BEDSIDE ORDERABLES Fin al Result * NH INJECTION SINGLE TENDON SHEATH OR LIGAMENT APONEUROSIS [...] IN CLINIC/BEDSIDE ORDERABLES Fin al Result * XR Hand 3+ Views Right (07/22/2025 1:42 PM EDT) Anatomical Region Laterality Modality Upper Extremities, Hand Right Computed Radiography Narrative 07/22/2025 5:45 PM EDT Three-view x-rays of the right hand shows no acute fracture or dislocation. There is a radiopaque density styloid which may represent a previous ulnar styloid avulsion fracture or chondrocalcinosis. Soft tissue shadows otherwise appear normal. There is normal carpal alignment. Impression: Possible chondrocalcinosis versus chronic ulnar styloid avulsion fracture, otherwise normal radiographs of the right hand. us Cortez Malik MD IMG XR PROCEDURES Final Result * NH ARTHROCENTESIS/ASPIRATION/INJECTION SMALL JOINT/BURSA WO U/S GUIDANCE (06/12/2025 10:30 AM EDT) Cortez Taylor MD - 06/12/2025 10:30 AM EDT Cortez [...] with patient: Verbal Pre-procedure timeout performed: yes Cortez Malik MD IN CLINIC/BEDSIDE ORDERABLES Shemar daylin Result - Final * XR Wrist 3+ Views Left (06/12/2025 10:14 AM EDT) Anatomical Region Laterality Modality Upper Extremities, Wrist Left Compute d Radiography Narrative 06/12/2025 12:51 PM EDT Three-view x-ray of the left wrist including an additional bilateral AP pencil cotton header view shows degenerative changes at the thumb [...] joint, chronic appearing ulnar styloid avulsion fracture. Result [facility] Cortez Malik MD IMG XR PROCEDURES Final Result * Annual BMP Blood Test (03/01/2024) Pathologist [facility] Annual BMP Blood Test Abstracted Result [facility] Historical Provider HEALTH MAINTENANCE Final Result * Hemoglobin A1c (08/09/2022) Pathologist [facility] Hemoglobin A1C 0.0 % Comment:No Interpretation, A bstracted Blood Venous blood specimen / Unknown Result [facility] Historical Nereyda SANDOVAL LAB BLOOD ORDERABLES Almaz l Result * Lipid panel (03/15/2022) [facility] LDL/HDL Ratio 0 Comment:No Interpretation, A bstracted Triglycerides 0 mg/dL Comment:No Interpretation, A bstracted Cholesterol 0 mg/dL Comment:No Interpretation, A bstracted HDL 0 mg/dL Comment:No Interpretation, A bstracted LDL Cholesterol 0 mg/dL Comment:No Interpretation, A bstracted Blood Venous blood specimen / Unknown us Historical Provider LAB BLOOD ORDERABLES Almaz l Result from Last 3 Months or Most Recently Relevant to Health Maintenance Insurance MEDICAID - [place] Care Teams Log Snaker Relationship Specialty Start Date End Date Zheng Boo MD [address] [phone] PCP - General 03/29/23
--- OUTSIDE RECORDS SUMMARY | 2025-07-24 09:42 | XMS_ITS | Encounter Summary ---
Author Organization [employer] Address [address] [facility] 7t [place] [address] Care Team Providers Care Nuclear Physician Name Role Phone Violeta Boo MD Primary Care Provide r Encounter Details Date Type Department Care Team (Late st Contact Info) Description 04/26/2023 Orders Only [facility] CHC MED & PEDS [address] [place] [address] Brittany Epps LPN Social History Tobacco Use [...] on file documented as of this encounter Procedures Procedure Name Priority Date/Time Associated Diagnosis Comments XR LUMBAR SPINE 2-3 VIEWS Routine 05/05/2023 12:38 PM EDT documented in this encounter Results * XR Lumbar Spine 2-3 Views (05/05/2023 12:38 PM EDT) Anatomical Region Laterality Modality Spine, L-spine Radiographic Rena ging 05/05/2023 12:3 8 PM EDT Narrative 05/17/2023 7:08 PM EDT [place] [address] XRay Report Signed Patient: Violeta Alvarenga V MR#: [id number] : 1950 Acct:[id number] Age/Sex: 72 / F ADM Date: 05/05/23 Loc: HOChipXRAMARILYS Attending Dr: Violeta Pascual MD Ordering Physician: Violeta Boo MD Date of Service: 05/05/23 Procedure(s): XR lumbar spine 2-3V Accession Number(s): [id number] cc: Violeta Boo MD EXAMINATION: XR LUMBOSACRAL [...] in OV> 05/17/23 1905 DD/ 1238 TD/TT: Validation Technician: SANA Procedure Note Donotuseinterpreter, Image - 05/17/[address] [address] XRay Report Signed Patient: Violeta Alvarenga VMR#: [id number] : 1950cct:[id number] Age/Sex: 72 / FADM Date: 05/05/23 Loc: HO.XRAMARILYS Attending Dr: Violeta Pascual MD Ordering Physician: Violeta Boo MD Date of Service: 05/05/23 Procedure(s): XR lumbar spine 2-3V Accession Number(s): [id number] cc: Violeta Boo MD EXAMINATION: XR LUMBOSACRAL [...] in OV> 05/17/23 1905 DD/ 1238 TD/TT: Validation Technician: SANA [facility] External Provider IMG XR PROCEDURES Edited Result - Final documented in this encounter Visit Diagnoses Not on filedocumented in this encounter Care Teams Nuclear Physician Relationship Specialty Start Date End Date Violeta Boo MD [address] [place] [address] PCP - General Family Medicine 05/21/22 documented as of this encounter
--- OUTSIDE RECORDS SUMMARY | 2025-07-24 09:42 | XMS_ITS | Encounter Summary ---
Author Organization [employer] Address [address] [facility] 7t [place] [address] Care Team Providers Care Bridge Opener Name Role Phone Violeta Boo MD Primary Care Provide r Encounter Details Date Type Department Care Team ([facility] Contact Info) Description 03/22/2023 Orders Only [facility] CHC MED & PEDS [address] [place], [place] [phone] Brittany Epps LPN Social History Tobacco Use [...] on filedocumented in this encounter Care Teams Bridge Opener Relationship Specialty Start Date End Date Violeta Boo MD 230 [place], [place] [phone] PCP - General Family Medicine 05/21/22 documented as of this encounter
--- OUTSIDE RECORDS SUMMARY | 2025-07-24 09:42 | XMS_ITS | Encounter Summary ---
Author Organization [employer] Address 75 [facility] 7t [place] [address] Care Team Providers Care Drill Sergeant Name Role Phone Violeta Boo MD Primary Care Provide r Reason for Visit * Reason Onset Date Comments Appointment Request 02/17/2023 Encounter Details Date Type Department Care Team ([facility] st Contact Info) Description 02/17/2023 Telephone [facility] MEDICINE 230 [place] [address] Violeta Boo MD [address] [place] [address] Appointment Request Social History Tobacco Use Types [...] message previously sent. Please contact pt at [phone] Korean Speaker * Telephone Encounter - Shay Navarro - 02/17/2023 1:16 PM EDT Tc from pt requesting to r/s appt for Follow up on 02/17/2023. Please contact pt at [phone] Korean Speaker documented in this encounter Plan of Treatment Not on file documented as of this encounter Visit Diagnoses Not on filedocumented in this encounter Care Teams Drill Sergeant Relationship Specialty Start Date End Date Violeta Boo MD 230 [place] [address] PCP - General Family Medicine 05/21/22 documented as of this encounter
--- OUTSIDE RECORDS SUMMARY | 2025-07-24 09:43 | XMS_ITS | Encounter Summary ---
Author Organization [employer] Address [address] [facility] 7t [place] [address] Care Team Providers Care Billing Analyst Name Role Phone Violeta Boo MD Primary Care Provide r Reason for Visit * Reason Comments Med Refill Encounter Details Date Type Department Care Team ([facility] st Contact Info) Description 10/21/[address] [facility] MEDICINE 230 [place], [place] [phone] Violeta Boo MD 230 [place], [place] [phone] Pain Social History Tobacco Use Types Packs/Day [...] documented as of this encounter Care Teams Billing Analyst Relationship Specialty Start Date End Date Violeta Boo MD [address] [place] [address] PCP - General Family Medicine 05/21/22 documented as of this encounter
--- OUTSIDE RECORDS SUMMARY | 2025-07-24 09:43 | XMS_ITS | Clinical Summary ---
Author Organization [facility], Address [address] [place] [address] [place] [address] Phone Care Team Providers Care Commercial Technician Name Role Phone Violeta Boo MD [...] Diagnosed Date Resolved Date Gout 02/12/2020 06/15/2021 terminal press operator use of nonsteroida l antiinflammatories 02/12/2020 [...] Visit [facility], [address] [facility] [address] [place] [address] Shailesh Vallejo MD [address] [place] [address] [place] [address] Health Maintenance Due Date Last Done Comments [...] AM EST) Hemoglobin A1C 7.1(H) (4.0-5.6) % [facility] Comment: MONITORING: In known diabetic patients, hemoglobin A1c targets should be discussed with health care provider. DIAGNOSTIC USE: The [place] Diabetes Association (ADA) and the World Health [...] Supplement 1 Testing performed or reported by [facility], a Service of [facility], [address] [place] [address] Yana Bales MD, Dial Refinisher [facility]# [id number] Blood specimen (specimen) Venous blood / Unknown 10/20/2022 9:21 AM EST 10/20/2022 9:22 AM EST us Shailesh Vallejo MD LAB BLOOD ORDERABLES Final Resul t [facility] from Last 3 Months or Most Recently Relevant to Health Maintenance Insurance [facility] ([id number]) Care Teams Commercial Technician Relationship Specialty Start Date End Date Violeta Boo MD [address] [place] [phone] PCP - General Internal Medicine 03/21/23
--- OUTSIDE RECORDS SUMMARY | 2025-07-24 09:43 | XMS_ITS | Encounter Summary ---
Author Organization [email or web address] Address [address] [facility] 7t [place] [address] Care Team Providers Care Manager Assembly Name Role Phone Violeta Boo MD Primary Care Provide r Encounter Details Date Type Department Care Team ([facility] st Contact Info) Description 05/22/2025 Orders Only [facility] MEDICINE [address] [place] [address] Violeta Boo MD 230 [place] [address] Social History Tobacco Use Types Packs/Day Years [...] documented as of this encounter Care Teams Manager Assembly Relationship Specialty Start Date End Date Violeta Boo MD [address] [place] [address] PCP - General Family Medicine 05/21/22 documented as of this encounter
--- OUTSIDE RECORDS SUMMARY | 2025-07-24 09:43 | XMS_ITS | Encounter Summary ---
Author Organization [facility] Address [address] [place] [address] Phone Care Team Providers Care Apigee Developer Name Role Phone Violeta Boo MD Primary Care Provide r Encounter Details Date Type Department Care Team (Late Contact Info) Description 03/22/2023 Documentation Only [facility] [address] [place] [address] Jazmin Powell PA [address] [place] [address] [place] [address] Social History Tobacco Use Types [...] Visit [facility] [address] [place] [address] Shailesh Vallejo MD [address] [place] [address] [place] [address] documented as of this encounter Visit Diagnoses Not on filedocumented in this encounter Care Teams Apigee Developer Relationship Specialty Start Date End Date Violeta Boo MD [address] [place] [phone] PCP - General Internal Medicine 03/21/23 documented as of this encounter
--- OUTSIDE RECORDS SUMMARY | 2025-07-24 09:43 | XMS_ITS | Encounter Summary ---
Author Organization [facility], Address [address] [place] [address] Phone Care Team Providers Care Health Promotion Coordinator Name Role Phone Violeta Boo MD Primary Care Provide r Encounter Details Date Type Department Care Team (Late Contact Info) Description 02/13/2024 Documentation Only [facility] [address] [place] [address] Rowena Knowles [address] [place] [phone] Social History Tobacco Use Types Packs/Day Years [...] Visit [facility] [address] [place] [address] Shailesh Vallejo MD [address] [place] [address] [place] [address] documented as of this encounter Visit Diagnoses Not on filedocumented in this encounter Care Teams Health Promotion Coordinator Relationship Specialty Start Date End Date Violeta Boo MD [address] [place] [phone] PCP - General Internal Medicine 03/21/23 documented as of this encounter
--- OUTSIDE RECORDS SUMMARY | 2025-07-24 09:43 | XMS_ITS | Encounter Summary ---
Author Organization [facility] [place], Address [address] [place] [address] Phone Care Team Providers Care Regulatory Affairs Strategy Specialist Name Role Phone Violeta Boo MD Primary Care Provide r Encounter Details Date Type Department Care Team (Late Contact Info) Description 05/05/2022 Documentation Only [facility] [address] [place] [address] Shaliesh Vallejo MD [address] [place] [address] [place] [address] Social History Tobacco Use Types [...] [facility] [address] [place] [address] Shailesh Vallejo MD [address] [place] [address] [place] [address] documented as of this encounter Visit Diagnoses Not on filedocumented in this encounter Care Teams Regulatory Affairs Strategy Specialist Relationship Specialty Start Date End Date Violeta Boo MD [address] [place] [phone] PCP - General Internal Medicine 03/21/23 documented as of this encounter
--- OUTSIDE RECORDS SUMMARY | 2025-07-24 09:43 | XMS_ITS | Encounter Summary ---
Author Organization [facility] Address [address] [place] [address] Phone Care Team Providers Care Grocery Store Courtesy Clerk Name Role Phone Violeta Boo MD Primary Care Provide r Encounter Details Date Type Department Care Team (Late Contact Info) Description 12/24/2022 Documentation Only [facility] [address] [place] [address] Jazmin Powell PA [address] [place] [address] [place] [address] Social History Tobacco Use Types [...] [facility] [address] [place] [address] Shailesh Vallejo MD [address] [facility] [place] [address] documented as of this encounter Visit Diagnoses Not on filedocumented in this encounter Care Teams Grocery Store Courtesy Clerk Relationship Specialty Start Date End Date Violeta Boo MD [address] [place] [phone] PCP - General Internal Medicine 03/21/23 documented as of this encounter
--- OUTSIDE RECORDS SUMMARY | 2025-07-24 09:43 | XMS_ITS | Encounter Summary ---
Author Organization [employer] Address [address] [facility] 7t [place] [address] Care Team Providers Care Dairy Clerk Name Role Phone Violeta Boo MD Primary Care Provide r Reason for Visit * Reason Comments Med Refill Encounter Details Date Type Department Care Team ([facility] st Contact Info) Description 03/22/2024 Refill [facility] MEDICINE 230 [place], [place] [phone] Violeta Boo MD 230 [place], [place] [phone] Dermatitis Social History Tobacco Use Types Packs/Day [...] cause documented in this encounter Care Teams Dairy Clerk Relationship Specialty Start Date End Date Violeta Boo MD [address] [place] [address] PCP - General Family Medicine 05/21/22 documented as of this encounter
--- OUTSIDE RECORDS SUMMARY | 2025-07-24 09:43 | XMS_ITS | Encounter Summary ---
Author Organization [facility] Address [address] [place] [address] Phone Care Team Providers Care Gas Treater Name Role Phone Violeta Boo MD Primary Care Provide r Encounter Details Date Type Department Care Team (Late Contact Info) Description 2022 Office Communication [facility] [address] [place] [address] Shailesh Vallejo MD [address] [place] [address] [place] [address] Social History Tobacco Use Types [...] [facility] [address] [place] [address] Shailesh Vallejo MD [address] [place] [address] [place] [address] documented as of this encounter Visit Diagnoses Not on filedocumented in this encounter Care Teams Gas Treater Relationship Specialty Start Date End Date Violeta Boo MD [address] [place] [phone] PCP - General Internal Medicine 03/21/23 documented as of this encounter
--- OUTSIDE RECORDS SUMMARY | 2025-07-24 09:43 | XMS_ITS | Encounter Summary ---
Author Organization [employer] Address [address] [place] [address] 7[place] [address] Care Team Providers Care Founding Partner Name Role Phone Violeta Boo MD Primary Care Provide r Encounter Details Date Type Department Care Team (Latest Contact Info) Description 05/27/2022 Abstract [facility] CONVERSIONS Dental, Provider, DDS Social History Tobacco [...] on filedocumented in this encounter Care Teams Founding Partner Relationship Specialty Start Date End Date Violeta Boo MD [address] [place] [address] PCP - General Family Medicine 05/21/22 documented as of this encounter
--- OUTSIDE RECORDS SUMMARY | 2025-07-24 09:43 | XMS_ITS | Encounter Summary ---
Author Organization [employer] Address [address] [facility] 7[address] [place] [address] Care Team Providers Care Piano Player Name Role Phone Violeta Boo MD Primary Care Provide r Encounter Details Date Type Department Care Team (Late st Contact Info) Description 08/17/2023 Abstract [facility] MEDICINE 230 [place] [address] Violeta Boo MD 230 [place], [place] [phone] Social History Tobacco Use Types Packs/Day Years [...] on filedocumented in this encounter Care Teams Piano Player Relationship Specialty Start Date End Date Violeta Boo MD 230 [place], [place] [phone] PCP - General Family Medicine 05/21/22 documented as of this encounter
--- OUTSIDE RECORDS SUMMARY | 2025-07-24 09:43 | XMS_ITS | Encounter Summary ---
Author Organization [employer] Address [address] [facility] 7t [place] [address] Care Team Providers Care Informatics Specialist Name Role Phone Violeta Boo MD Primary Care Provide r Reason for Visit * Reason Onset Date Comments Referral 12/08/2022 Encounter Details Date Type Department Care Team ([facility] st Contact Info) Description 12/08/2022 Telephone [facility] MEDICINE 230 [place] [address] Violeta Boo MD 230 [place] [address] Referral Social History Tobacco Use Types Packs/Day [...] Shay Navarro - 12/08/2022 2:55 PM EST Tc from [place] with [facility] requesting a new referral for colorectal Surgery at [address] [place] [address] [place] [address]. Oksana stated that a provider from their got in contact With Dr. Berkowitz, and Dr. Berkowitz advised provider that it okay for pt to receive a referral. They are now requesting a new referral from PCP, in order for pt to be ssen. If any question please contact oksana at [phone] documented in this encounter Plan of Treatment Not on file documented as of this encounter Visit Diagnoses Not on filedocumented in this encounter Care Teams Informatics Specialist Relationship Specialty Start Date End Date Violeta Boo MD [address] [place] [address] PCP - General Family Medicine 05/21/22 documented as of this encounter
--- OUTSIDE RECORDS SUMMARY | 2025-07-24 09:43 | XMS_ITS | Encounter Summary ---
Author Organization [employer] Address [address] [facility] 7t [place] [address] Care Team Providers Care Credit Collection Specialist Name Role Phone Violeta Boo MD Primary Care Provide r Reason for Visit * Reason Onset Date Comments Appointment Request 01/29/2025 Encounter Details Date Type Department Care Team ([facility] st Contact Info) Description 01/29/2025 Telephone [facility] MEDICINE 230 [place], [place] [phone] Violeta Boo MD 230 [place] [address] Appointment Request Social History Tobacco Use Types [...] on 02/01 and can't walk after surgery. [phone] greek documented in this encounter Plan of Treatment Not on file documented as of this encounter Visit Diagnoses Not on filedocumented in this encounter Additional Health Concerns Assessment Noted Time PHQ-9 Depression Total Score: 17 024 11:23 AM EDT documented as of this encounter Care Teams Credit Collection Specialist Relationship Specialty Start Date End Date Violeta Boo MD [address] [place] [address] PCP - General Family Medicine 05/21/22 documented as of this encounter
--- OUTSIDE RECORDS SUMMARY | 2025-07-24 09:43 | XMS_ITS | Encounter Summary ---
Author Organization [employer] Address [address] [facility] 7t [place] [address] Care Team Providers Care Electrician Research Name Role Phone Violeat Boo MD Primary Care Provide r Reason for Visit * Reason Onset Date Comments Reasonable Accommodation Request 10/25/2022 I called regarding a reasonable accommodation form, from [facility] [employer]. The pt states that she will be getting a scooter, because she is no longer able to use a cane or a walker. She is requesting an apartment with elevator accessibility, because it would be easier for her to get in and out of her apartment. Encounter Details Date Type Department Care Team (Late st Contact Info) Description 10/25/2022 Telephone [facility] MED & PEDS [address] [place], [place] [phone] [place], [place] Reasonable Accommodation Request (I called regarding a reasonable accommodation form, from [employer]. The pt states that she will be [...] on filedocumented in this encounter Care Teams Electrician Research Relationship Specialty Start Date End Date Violeta Boo MD 230 [place] [address] PCP - General Family Medicine 05/21/22 documented as of this encounter
--- OUTSIDE RECORDS SUMMARY | 2025-07-24 09:43 | XMS_ITS | Encounter Summary ---
Author Organization [facility], Address [address] [place] [address] Phone Care Team Providers Care Diving Instructor Name Role Phone Violeta Boo MD Primary Care Provide r Encounter Details Date Type Department Care Team (Late Contact Info) Description 03/20/2025 Documentation Only [facility] [address] [place] [address] Rowena Knowles [address] [place] [phone] Social History Tobacco Use Types Packs/Day Years [...] [facility] [address] [place] [address] Shailesh Vallejo MD [address] [place] [address] [place] [address] documented as of this encounter Visit Diagnoses Not on filedocumented in this encounter Care Teams Diving Instructor Relationship Specialty Start Date End Date Violeta Boo MD [address] [place] [phone] PCP - General Internal Medicine 03/21/23 documented as of this encounter
--- OUTSIDE RECORDS SUMMARY | 2025-07-24 09:43 | XMS_ITS | Encounter Summary ---
Author Organization [employer] Address [address] [facility] 7t [place] [address] Care Team Providers Care Procurement Engineer Name Role Phone Violeta Boo MD Primary Care Provide r Encounter Details Date Type Department Care Team ([facility] st Contact Info) Description 01/23/2025 Telephone [facility] [address] [place] [address] CadenAngella, OD [address] [place] [address] Social History Tobacco Use Types Packs/Day Years [...] documented as of this encounter Care Teams Procurement Engineer Relationship Specialty Start Date End Date Violeta Boo MD [address] [place] [address] PCP - General Family Medicine 05/21/22 documented as of this encounter
--- OUTSIDE RECORDS SUMMARY | 2025-07-24 09:43 | XMS_ITS | Encounter Summary ---
Author Organization [facility] Address [address] [facility] 7t [place] [address] Care Team Providers Care Memorial Marker Designer Name Role Phone Violeta Boo MD Primary Care Provide r Encounter Details Date Type Department Care Team ([facility] st Contact Info) Description 08/03/2023 Orders Only [facility] MEDICINE 230 [place], [place] [phone] Provider, Libra, Social History Tobacco Use Types Packs/Day Years [...] on filedocumented in this encounter Care Teams Memorial Marker Designer Relationship Specialty Start Date End Date Violeta Boo MD 230 [place], [place] [phone] PCP - General Family Medicine 05/21/22 documented as of this encounter
--- OUTSIDE RECORDS SUMMARY | 2025-07-24 09:43 | XMS_ITS | Encounter Summary ---
Author Organization [employer] Address 75 [facility] 7t [place] [address] Care Team Providers Care Mri Special Procedures Technologist Name Role Phone Violeta Boo MD Primary Care Provide r Reason for Visit * Reason Onset Date Comments Appt cancelation 03/02/2024 Encounter Details Date Type Department Care Team ([facility] st Contact Info) Description 03/02/[address] [facility] MEDICINE 230 [place], [place] [phone] Violeta Boo MD 230 [place] [address] Appt cancelation Social History Tobacco Use Types [...] 04/27 due to being referred to outside health science specialist documented in this encounter Plan of Treatment Not on file documented as of this encounter Visit Diagnoses Not on filedocumented in this encounter Care Teams Mri Special Procedures Technologist Relationship Specialty Start Date End Date Violeta Boo MD 230 [place] [address] PCP - General Family Medicine 05/21/22 documented as of this encounter
--- OUTSIDE RECORDS SUMMARY | 2025-07-24 09:43 | XMS_ITS | Encounter Summary ---
Author Organization [employer] Address 75 [facility] 7t [place] [address] Care Team Providers Care Butt Presser Name Role Phone Violeta Boo MD Primary Care Provide r Reason for Visit * Reason Onset Date Comments Appointment Request 11/11/2023 Encounter Details Date Type Department Care Team ([facility] st Contact Info) Description 11/11/2023 Telephone [facility] MEDICINE 230 [place], [place] [phone] Violeta Boo MD 230 [place] [address] Appointment Request Social History Tobacco Use Types [...] on 11/16/23 due to being covid positive director underwriter sales did cancel appt documented in this encounter Plan of Treatment Not on file documented as of this encounter Visit Diagnoses Not on filedocumented in this encounter Care Teams Butt Presser Relationship Specialty Start Date End Date Violeta Boo MD [address] [place] [address] PCP - General Family Medicine 05/21/22 documented as of this encounter
--- OUTSIDE RECORDS SUMMARY | 2025-07-24 09:43 | XMS_ITS | Encounter Summary ---
Author Organization [employer] Address [address] [facility] 7t [place] [address] Care Team Providers Care Fitter And Turner Name Role Phone Violeta Boo MD Primary Care Provide r Reason for Visit * Reason Onset Date Comments Med Refill 10/25/2024 Encounter Details Date Type Department Care Team ([facility] st Contact Info) Description 10/25/2024 Telephone [facility] MEDICINE 230 [place] [address] Violeta Boo MD 230 [place] [address] Med Refill Social History Tobacco Use Types [...] documented as of this encounter Care Teams Fitter And Turner Relationship Specialty Start Date End Date Violeta Boo MD 230 [place] [address] PCP - General Family Medicine 05/21/22 documented as of this encounter
--- OUTSIDE RECORDS SUMMARY | 2025-07-24 09:43 | XMS_ITS | Encounter Summary ---
Author Organization [employer] Address [address] [facility] 7t [place] [address] Care Team Providers Care Joy Operator Name Role Phone Violeta Boo MD Primary Care Provide r Encounter Details Date Type Department Care Team ([facility] st Contact Info) Description 11/25/2022 Telephone [facility] MEDICINE 230 [place], [place] [phone] Violeta Boo MD 230 [place], [place] [phone] Social History Tobacco Use Types Packs/Day Years [...] on filedocumented in this encounter Care Teams Joy Operator Relationship Specialty Start Date End Date Violeta Boo MD 230 [place], [place] [phone] PCP - General Family Medicine 05/21/22 documented as of this encounter
--- OUTSIDE RECORDS SUMMARY | 2025-07-24 09:43 | XMS_ITS | Encounter Summary ---
Author Organization [employer] Address [address] [facility] 7t [place] [address] Care Team Providers Care Environmental Services Tech Name Role Phone Violeta Boo MD Primary Care Provide r Encounter Details Date Type Department Care Team ([facility] st Contact Info) Description 11/10/2023 Abstract [facility] MEDICINE 230 [place] [address] Violeta Boo MD 230 [place], [place] [phone] Social History Tobacco Use Types Packs/Day Years [...] on filedocumented in this encounter Care Teams Environmental Services Tech Relationship Specialty Start Date End Date Violeta Boo MD [address] [place] [address] PCP - General Family Medicine 05/21/22 documented as of this encounter
--- OUTSIDE RECORDS SUMMARY | 2025-07-24 09:43 | XMS_ITS | Encounter Summary ---
Author Organization [facility] [place], Address [address] [place] [address] Phone Care Team Providers Care Bowling Or Skating Front Desk Clerk Name Role Phone Violeta Boo MD Primary Care Provide r Encounter Details Date Type Department Care Team (Late Contact Info) Description 05/05/2022 Documentation Only [facility] [address] [place] [address] Shailesh Vallejo MD [address] [place] [address] [place] [address] Social History Tobacco Use Types [...] [facility] [address] [place] [address] Shailesh Vallejo MD [address] [place] [address] [place] [address] documented as of this encounter Visit Diagnoses Not on filedocumented in this encounter Care Teams Bowling Or Skating Front Desk Clerk Relationship Specialty Start Date End Date Violeta Boo MD [address] [place] [phone] PCP - General Internal Medicine 03/21/23 documented as of this encounter
--- OUTSIDE RECORDS SUMMARY | 2025-07-24 09:43 | XMS_ITS | Encounter Summary ---
Author Organization [facility] Address [address] [place] [address] Phone Care Team Providers Care Fisher Diver Net Name Role Phone Violeta Boo MD Primary Care Provide r Encounter Details Date Type Department Care Team (Late Contact Info) Description 10/22/2022 Documentation Only [facility] [address] [place] [address] Jazmin Powell PA [address] [place] [address] [place] [address] Social History Tobacco Use Types [...] [facility] [address] [place] [address] Shailesh Vallejo MD [address] [facility] [place] [address] documented as of this encounter Visit Diagnoses Not on filedocumented in this encounter Care Teams Fisher Diver Net Relationship Specialty Start Date End Date Violeta Boo MD [address] [place] [phone] PCP - General Internal Medicine 03/21/23 documented as of this encounter
--- OUTSIDE RECORDS SUMMARY | 2025-07-24 09:43 | XMS_ITS | Encounter Summary ---
Author Organization [facility] [place], Address [address] [place] [address] Phone Care Team Providers Care Real Estate Financial Analyst Name Role Phone Violeta Boo MD Primary Care Provide r Encounter Details Date Type Department Care Team (Late Contact Info) Description 08/27/2024 Documentation Only [facility] [address] [facility] [address] [place] [address] Rowena Knowles [address] [place] [phone] Social History Tobacco Use Types Packs/Day Years [...] Visit [facility] [place], [address] [facility] [place] [address] Shailesh Vallejo MD [address] [place] [address] [place] [address] documented as of this encounter Visit Diagnoses Not on filedocumented in this encounter Care Teams Real Estate Financial Analyst Relationship Specialty Start Date End Date Violeta Boo MD [address] [place] [phone] PCP - General Internal Medicine 03/21/23 documented as of this encounter
--- OUTSIDE RECORDS SUMMARY | 2025-07-24 09:43 | XMS_ITS | Encounter Summary ---
Author Organization [employer] Address [address] [facility] 7t [place] [address] Care Team Providers Care Donor Relations Coordinator Name Role Phone Violeta Boo MD Primary Care Provide r Reason for Visit * Reason Comments Med Refill Encounter Details Date Type Department Care Team ([facility] st Contact Info) Description 11/18/2022 Refill [facility] MED & PEDS [address] [place], [place] [phone] Betsy Simmons CNM [address] [facility] [place] [address] Social History Tobacco Use Types Packs/Day Years [...] No answer, left V/M. Will retask to [place] [facility] for second attempt * Telephone Encounter [...] on filedocumented in this encounter Care Teams Donor Relations Coordinator Relationship Specialty Start Date End Date Violeta Boo MD [address] [place] [address] PCP - General Family Medicine 05/21/22 documented as of this encounter
--- OUTSIDE RECORDS SUMMARY | 2025-07-24 09:43 | XMS_ITS | Encounter Summary ---
Author Organization [employer] Address 75 [facility] 7t [place] [address] Care Team Providers Care Cook Short Order Name Role Phone Violeta Boo MD Primary Care Provide r Reason for Visit * Reason Onset Date Comments Durable Medical Equipment 10/13/2023 Encounter Details Date Type Department Care Team ([facility] st Contact Info) Description 10/13/2023 Telephone [facility] MEDICINE 230 [place], [place] [phone] Violeta Boo MD 230 [place] [address] Durable Medical Equipment Social History Tobacco Use [...] : 2xl Pullups Ensures Flavors Vanilla and Greenbrae Gloves Large Wipes Pt states insurance fax over request. Please contact pt at [phone] Turkmen Speaker documented in this encounter Plan of Treatment Not on file documented as of this encounter Visit Diagnoses Not on filedocumented in this encounter Care Teams Cook Short Order Relationship Specialty Start Date End Date Violeta Boo MD [address] [place] [address] PCP - General Family Medicine 05/21/22 documented as of this encounter
== END 2025-07-24 08:27 | disposition home or self-care (01) ==
LOC: HO.HOSX 08:26
DX: Z13.89 Encounter for screening for other disorder (principal)

== ENCOUNTER 2025-09-16 09:05 | Outpatient (AMB) | payer OTHER, SELFPAY ==
[2025-09-16 09:13] VITALS: BMI 47.1
--- NOTE | 2025-09-16 09:13 | MHC.OFFVIS ---
Vital Signs 09/16/25 09:13 Height 5 ft 3 in Weight 266 lb BMI 47.1 Intake Visit Reasons: OV-B/L knee OA last inj 06/10/25 Intake Note: Violeta is a 75 year old female who presents today for a follow up of her bilateral Knee OA. She was last seen on 06/10/25 where she received bilateral knee injections. Patient reports that the last injections were helpful for about 3 months & she would like to repeat bilaterally today. Patient is scheduled for BILATERAL DIAGNOSTIC L2-L3-L4 MBB with Pain mgmt 10/08/25 Allergies peanut (PEANUT) Allergy (Severe, Verified 07/17/25 10:28) ITCHY, SWELLING seafood Allergy (Severe, Verified 07/17/25 10:28) Rash tomato (TOMATO) Allergy (Severe, Verified 07/17/25 10:28) ITCHY, SWELLING aspirin (ASA) Allergy (Intermediate, Verified 07/17/25 10:28) ITCHY,ANXIOUS, itching, rash Iodinated Contrast Media (IV CONTRAST) Allergy (Intermediate, Verified 07/17/25 10:28) HIVES plantain (PLANTAIN) Allergy (Intermediate, Verified 07/17/25 10:28) ITCHY/SWELLING HPI HPI OV-B/L knee OA last inj 06/10/25: Details: Violeta is a 75 year old female who presents today for a follow up of her bilateral Knee OA. She was last seen on 06/10/25 where she received bilateral knee injections. Patient reports that the last injections were helpful for about 3 months & she would like to repeat bilaterally today. Patient is scheduled for BILATERAL DIAGNOSTIC L2-L3-L4 MBB with Pain mgmt 10/08/25 [facility] Medical History Myocardial infarct Pain in left shoulder Screening for viral disease COPD (chronic obstructive pulmonary disease) Restrictive lung disease Allergic rhinitis ZOEY (obstructive sleep apnea) Edema PVD (peripheral vascular disease) On beta prashant at home Osteopenia Gout Osteoarthritis Rheumatoid arthritis Anemia Panic attacks Anxiety Schizophrenia Pre-diabetes CKD (chronic kidney disease), stage III GERD (gastroesophageal reflux disease) Fatty liver Myocardial infarction CAD (coronary artery disease) Angina pectoris HTN (hypertension) Morbid obesity ZOEY treated with BiPAP COPD (chronic obstructive pulmonary disease) Allergic rhinitis Surgical History History of colonoscopy (~2021) History of lumpectomy of right breast (06/21/22) History of bladder suspension procedure History of esophagogastroduodenoscopy (EGD) Hx of colonoscopy History of hysterectomy History of tubal ligation History of lumpectomy of right breast Family History Mother Leukemia Brother Colon cancer Brother Leukemia Sister Breast cancer Sister Vaginal cancer Sister Breast cancer Sister Breast cancer Daughter Thyroid disease Social History Alcohol intake: never Patient Tobacco Use Status: Never used Tobacco Second Hand Smoke Exposure: No Female Reproductive History Menstrual Age of Menarche: 13 Physical Exam Vital Signs: BMI result Body Mass Index 47.1 Extrem Other: TTP medial compartment bilateral knees Skin healthy with no open wounds or edema knees are stable to varus and valgus stress Office Procedures Joint Inj/Aspir; Non-Pain Clin Joint Injection/Drain Details: Injected 1 mL of Decadron and 3 mL 1% lidocaine and 3 mL of 0.25% Marcaine. Site was prepped using aseptic technique. Patient tolerated the procedure well. Shoulders, Hips, Knees, Knee Large Joint Injection : Bilateral Knee Coding Procedure code (CPT) selection complete Assessment & Plan Assessment & Plan (1) Bilateral primary osteoarthritis of knee: Code(s): M17.0 - Bilateral primary osteoarthritis of knee Category: Medical Plan: 75-year-old woman with bilateral knee osteoarthritis. She got multiple medical conditions in his not a surgical candidate. She would benefit from steroid injections and I injected bilateral knees today. Coding Level of Care Code Est Pt Level 3 (99600) Diagnoses Bilateral primary osteoarthritis of knee M17.0 CPT Codes Shoulders, Hips, Knees, - Knee Large Joint Injection 25303: Bilateral Knee ([id number])
--- OUTSIDE RECORDS SUMMARY | 2025-09-16 10:03 | XMS_ITS | Encounter Summary ---
Author Organization [facility], Address [address] [place] [address] Phone Care Team Providers Care Handcrew Foreman Name Role Phone Violeta Boo MD Primary Care Provide r Encounter Details Date Type Department Care Team (Late Contact Info) Description 03/15/2022 Documentation Only [facility] [address] [place] [address] Shailesh Vallejo MD [address] [place] [address] [place] [address] Social History Tobacco Use Types [...] Visit [facility] [address] [place] [address] Shailesh Vallejo MD [address] [place] [address] [place] [address] documented as of this encounter Visit Diagnoses Not on filedocumented in this encounter Care Teams Handcrew Foreman Relationship Specialty Start Date End Date Violeta Boo MD [address] [place] [phone] PCP - General Internal Medicine 03/21/23 documented as of this encounter
--- OUTSIDE RECORDS SUMMARY | 2025-09-16 10:03 | XMS_ITS | Clinical Summary ---
Author Organization [employer] Address [address] [place] [address] [address] [place] [address] Care Team Providers Care Property Manager Name Role Phone Violeta Boo [...] on the skin in the morning. Active meclizine (Antivert) 25 MG tablet Take [...] BLOOD SUGAR ONCE DAILY 50 strip 11 023 Active fexofenadine (Lelia) 180 MG tablet TAKE 1 TABLET BY MOUTH EVERY MORNING 30 tablet 11 023 Active fexofenadine (Lelia) 180 MG tablet [...] AFFECTED AREA(S) TWICE DAILY 30 g 1 023 Active permethrin (Elimite) 5 % creamIndicatio ns:Dermatitis apply to skin from hairline to toes and wash off 8-10 hours later 60 g 1 024 Active hydrocortisone (Anusol-HC) 2.5 % rectal creamIndicatio ns:Hemorrhoids , complicated Insert into the rectum 2 times daily. 28 g 2 024 Active Simethicone Ultra Strength 180 MG capsuleIndicat [...] 200 mg by mouth 2 times daily. Active ezetimibe (Zetia) 10 MG tablet Take 10 mg by mouth in the morning. Active colchicine 0.6 MG tablet Take 0.6 mg by mouth every other day. Active Blood Glucose Monitoring Suppl (Blinkbuggy Verio Flex System) w/Device kit USE DIRECTED TO TEST BLOOD SUGAR TWICE DAILY Active allopurinol (Zyloprim) 300 MG tablet Take 300 mg by mouth in the morning. Active gabapentin (Neurontin) 300 MG capsuleIndicat ions:Pain Take 1 capsule by mouth twice daily in the morning and in the evening 60 capsule 1 025 Active Ozempic, 0.25 or 0.5 MG/DOSE, 2 MG/3ML solution pen-injector INJECT 0.5 MG SUBCUTANEOUSLY EVERY 7 DAYS IN THE ABDOMEN, THIGHS, OR UPPER ARM, ROTATE INJECTION SITES. 3 mL 2 025 Active atorvastatin (Lipitor) 80 MG tablet TAKE 1 TABLET BY MOUTH EVERY MORNING 30 tablet Active Calcium Carb-Cholecalc iferol 600-10 MG-MCG tablet TAKE 1 TABLET BY MOUTH TWICE DAILY IN THE MORNING AND IN THE EVENING 60 tablet Active Ferrous Sulfate (iron) 325 (65 Fe) MG tablet TAKE 1 TABLET BY MOUTH EVERY MORNING 30 tablet 025 Active montelukast (Singulair) 10 MG tablet TAKE 1 TABLET BY MOUTH EVERY EVENING 30 tablet Active pantoprazole (ProtoNix) 40 MG EC tablet TAKE 1 TABLET BY MOUTH EVERY MORNING 30 tablet 025 Active doxepin (SINEquan) 25 MG capsuleIndicat ions:Chronic pruritus TAKE 1 CAPSULE BY MOUTH AT BEDTIME 90 capsule 1 025 Active metoprolol succinate XL (Toprol-XL) 50 MG 24 hr tablet TAKE 1 TABLET BY MOUTH EVERY MORNING 90 tablet 1 025 Active Semaglutide, 2 MG/DOSE, (Ozempic, 2 MG/DOSE,) 8 MG/3ML solution pen-injectorIn dications:Pred iabetes Inject 0.75 mL (2 mg) under the skin 1 (one) time per week. 2 mL 6 025 Active cholecalcifero l (Vitamin D-3) 25 MCG (1000 UT) tabletIndicati ons:Morbid obesity ([facility]) (HCC) Take 1 tablet (25 mcg) by mouth Once per day. 60 tablet 1 025 Active diphenhydrAMIN E (BENADryl) 25 MG capsuleIndicat ions:Seasonal allergies Take 1 capsule (25 mg) by mouth every 6 (six) hours if needed for itching for up to 10 days. 30 capsule 025 Active losartan (Cozaar) 100 MG tablet Take 1 tablet (100 mg) by mouth Once per day. 90 tablet 1 025 Active chlorthalidone (Hygroton) 25 MG tablet TAKE 1 TABLET BY MOUTH EVERY MORNING 90 tablet 1 025 Active Otezla 30 MG tablet Active BP Wash 10 % external wash Active Clindamycin Phosphate (Clindamycin Phos, Twice-Daily,) 1 % gel Active Ozempic, 1 MG/DOSE, 4 MG/3ML solution pen-injectorIn dications:Pred iabetes Inject 1 MG SUBCUTANEOUSLY EVERY 7 DAYS IN THE ABDOMEN, THIGHS OR UPPER ARM. ROTATE INJECTION SITES. 3 mL 1 025 Active Ozempic, 1 MG/DOSE, 4 MG/3ML solution pen-injectorIn dications:Pred iabetes Inject 1 MG SUBCUTANEOUSLY EVERY 7 DAYS IN THE ABDOMEN, THIGHS OR UPPER ARM. ROTATE INJECTION SITES. 3 mL 1 025 2024 Discontinued Active Problems Problem Noted Date Diagnosed Date Psoriatic arthritis ([facility]) 05/15/2025 Assessment & Plan (05/15/2025 4:08 PM EDT): I will prescribe her patient her recliner to help her with her daily life and activities Psychosis, unspecified psychosis type ([facility]) 05/15/2025 Assessment & Plan (05/15/2025 4:07 PM [...] (08/13/2024 1:13 PM EDT): Being follow by [facility] US is pending Vaginal pain 03/29/2024 Rectal [...] on scalp once per day and FU dust box tender. Otitis externa 12/16/2022 Assessment & Plan (12/16/2022 [...] pain 11/02/2021 Stage 3b chronic kidney disease (CMS/HCC) 2019 Overview (11/05/2022): Update for Diagnosis Load Assessment [...] Hyperlipidemia 08/08/2018 Mood disorder 08/08/2018 Morbid obesity (CMS/HCC) 08/08/2018 Assessment & Plan (05/15/2025 4:06 PM EDT): Counseling about healthy diet and exercise done today I will go up on her Ozempic to 2 mg weekly Assessment & Plan (12/16/2022 1:59 PM EST): Discussed re weight reduction options including exercise, life style modifications, diet, referral to emergency room specialist. Discussed re lower calorie intake, increase dietary fiber Pt agreed to be referred to dietitian. 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 04/30/2024 Encounters Date Type Department Care Team Description 09/11/2025 Orders Only [address] [address] Violeta Boo MD Family history of cancer (Primary Dx) 09/09/2025 Orders Only [address] [address] Violeta Boo MD Latent tuberculosis (Primary Dx) 09/09/[address] [address] Violeta Boo MD tb test 09/09/[address] [address] Violeta Boo MD Referral 09/09/[address] [address] Violeta Boo MD Durable Medical Equipment 09/05/[address] [address] Violeta Boo MD Prediabetes 08/20/[address] [address] Violeta Boo MD FYI; Durable Medical Equipment (DME: Recliner (Updated Order)) 08/06/2025 Telephone [facility] [address] [place], [place] [phone] Violeta Boo MD Durable Medical Equipment (DME Order: Recliner) 06/27/2025 Telephone [facility] [address] [place], [place] [phone] Violeta Boo MD Results from Last 3 Months Immunizations Immunization Administration [...] 024 COVID-19 Vaccine (6 - Pfizer risk 2023-) 07/15/2025 08/13/2024, 09/07/2023, 08/26/2022, Additional history exists Influenza Vaccine (#1) 2025 , 09/07/2023, 08/26/2022, Additional history exists Mammogram 08/30/2025 08/30/2024, 04/15, 05/11/2022, Additional history exists Tobacco Screening 06/20/2026 06/20/2025 Diabetes: Hemoglobin A1C 07/26/2026 025, 07/03/2025, 05/15/2025, Additional history exists Colonoscopy 06/11/2027 06/11/2022 Colorectal Cancer Screening 06/11/2027 Lipid Panel 05/30/2030 05/30/2025, 03/15/2022 Zoster Vaccines Completed 11/29/2019, 11/14, 08/22/2019, Additional history exists Pneumococcal Vaccine: 50+ Years Completed 08/13/2024, 03/19/2019, 12/12/2017, Additional history exists Hepatitis C Screening Completed 05/30/2025, 02/19/2 020 HIB Vaccines Aged Out No longer [...] Procedure Name Priority Date/Time Associated Diagnosis Comments HEPATITIS C AB W/REFL TO HCV RNA, QN, PCR Routine 05/30/2025 10:20 AM EDT Essential hypertension LIPID PANEL, STANDARD Routine 05/30/2025 10:20 AM EDT Essential hypertension POCT GLYCATED HEMOGLOBIN, TOTAL Routine 05/15/2025 12:15 PM EDT Prediabetes BI MAMMOGRAM SCREENING TOMOSYNTHESIS BILATERAL Routine 08/30/2024 9:10 AM EDT HM COLONOSCOPY Routine 06/11/2022 from Last 3 Months or Most Recently Relevant to Health Maintenance Results * Hepatitis C Antibody with Reflex to HCV, RNA, Quantitative, Real-Time PCR (05/30/2025 10:20 AM EDT) Hepatitis C Antibody Nonreactive Nonreactive [facility] Comment:Antibodies to HCV no t detected; does not exclude early acuteHCV infection. Blood Venous blood specimen / Unknown 05/30/2025 10:20 AM EDT 05/30/2025 10:20 AM EDT us Violeta Pascual MD LAB BLOOD ORDERABLES Final Result [facility] [address] [place] [phone] * (ABNORMAL) Lipid Panel, Standard (05/30/2025 10:20 AM EDT) Triglycerides 214(H) <150 mg/dL [facility] Comment:Desirable Triglyceri de: less than 150 mg/dLBorderline High Triglyceride 150-199 mg/dLHigh Triglyceride: 200-499 mg/dLVery High Triglyceride: greater than or equal to 5OO mg/dL Cholesterol 140 <200 mg/dL [facility] Comment:Desirable Cholestero l: less than 200 mg/dLBorderline High Cholesterol: 200-239 mg/dLHigh Cholesterol: greater than 239 mg/dL LDL Cholesterol Calculated 69 <100 mg/dL [facility] Comment:Desirable LDL: less than 100 mg/dLNear Optimal/Above Optimal LDL: 110- 129 mg/dLBorderline High LDL: 130-159 mg/dLHigh LDL: 160-189 mg/dLVery High LDL: greater than or equal to 190 mg/dL HDL Cholesterol 29(L) >40 mg/dL [facility] Comment:Desirable HDL: great er than 40 mg/dL Note: This HDL assay may give artificially low results in patients with liver disease. Blood Venous blood specimen / Unknown 05/30/2025 10:20 AM EDT 05/30/2025 10:20 AM EDT us Violeta Pascual MD LAB BLOOD ORDERABLES Final Result [facility] [address] [place] [phone] * (ABNORMAL) POCT HGB A1C (05/15/2025 12:15 PM EDT) Hemoglobin A1C 5.7 4.0 - 5.7 % QC Media Lot # [id number] Lot# Expiration Date ,[id number] Blood 05/15/2025 12:1 5 PM EDT us Violtea Pascual MD POINT OF CARE TEST EN TER/EDIT ORDERABLES Final Result * BI Mammogram Screening Tomosynthesis Bilateral (08/30/2024 9:10 AM EDT) Anatomical Region Laterality Modality Breast Bilateral Mammography 08/30/2024 9:10 AM EDT Narrative 09/11/2024 12:30 PM EDT [facility] [address] [place] [address] Mammography Report Signed with Addenda Patient: Violeta Alvarenga V MR#: [id number] : 1950 Acct:[id number] Age/Sex: 74 / F ADM Date: 08/30/24 Loc: HO.MAMMO Attending Dr: Violeta Pascual MD Ordering Physician: Violeta Boo MD Results: 2Benign Findings Date of Service: 08/30/24 Follow Up: 1 Year From Orig ina Mammogram Procedure(s): MM tomosynthesis screening BI Accession Number(s): [id number] cc: Violeta Boo MD ADDENDUM ADDENDUM #1 [...] OV> 09/11/24 1227 DD/ 9 TD/TT: 08/30/24924 Post Closing Specialist: Procedure Note Donotuseinterpreter, Image - 09/14/2024 [facility] [address] [place], [place] [address] Mammography Report Signed with Addenda Patient: Violeta Alvarenga VMR#: [id number] : 2Acct:[id number] Age/Sex: 74 / FADM Date: 08/30/24 Loc: HO.MAMMO Attending Dr: Violeta Pascual MD Ordering Physician: Violeta Boo MDResults: 2Benign Findings Date of Service: 08/30/24Follow Up: 1 Year From Orig ina Mammogram Procedure(s): MM tomosynthesis screening BI Accession Number(s): [id number] cc: Violeta Boo MD ADDENDUM ADDENDUM #1 [...] OV> 09/11/24 1227 DD/ 9 TD/TT: 08/30/24924 Post Closing Specialist: us Violeta Pascual MD IMG BI PROCEDURES Shemar daylin Result - Final * Hm Colonoscopy (06/11/2022) us Historical Provider HEALTH MAINTENANCE Final Result from Last 3 Months or Most Recently Relevant to Health Maintenance Insurance [facility] [employer] (HMO D-SNP) Care Teams Property Manager Relationship Specialty Start Date End Date Violeta Boo MD [address] [place] [address] PCP - General Family Medicine 05/21/22
--- OUTSIDE RECORDS SUMMARY | 2025-09-16 10:03 | XMS_ITS | Encounter Summary ---
Author Organization [employer] Address [address] [facility] [address] [place] [address] Care Team Providers Care Rip/Mould Operator Name Role Phone Violeta Boo MD Primary Care Provide r Reason for Visit * Reason Comments Med Refill Encounter Details Date Type Department Care Team (Late st Contact Info) Description 02/13/2023 Refill [facility] [address] [place], [place] [phone] Cassy Starks MD [address] [place] [address] Social History Tobacco Use Types Packs/Day Years [...] on filedocumented in this encounter Care Teams Rip/Mould Operator Relationship Specialty Start Date End Date iVoleta Boo MD [address] [place] [address] PCP - General Family Medicine 05/21/22 documented as of this encounter
--- OUTSIDE RECORDS SUMMARY | 2025-09-16 10:03 | XMS_ITS ---
Author Name Tarsha HOGANC, MRS. Abad Address [address] [place] [address] Phone [phone] [facility] Care Team Providers Care Stained Glass Glazier Helper Name Role Phone Jenniffer Willingham Unavailable [phone] SARAH CRONIN Unavailable [phone] Agueda Sarah Unavailable [phone] Unavailable Unavailable [phone] Kailey Melo Unavailable [phone] Unavailable Unavailable Unavailable Cirsto Garcia Unavailable [phone] Unavailable Unavailable [phone] Gideon Frost Unavailable [phone] Unavailable Unavailable Unavailable Unavailable Unavailable Unavailable Unavailable Unavailable [phone] WALTER ROBERT Unavailable [phone] Nirav Anthony Unavailable [phone] Unavailable Unavailable [phone] Unavailable Unavailable [phone] Reason for Referral Not Available Allergies, adverse reactions, alerts Allergen Type Reaction Severity Status Onset Date Aspirin Allergy to substance (disorder) Unknown Active N/A Iodinated Contrast Media Allergy to subs tance (disorder) Unknown Active N/A History of medication use Medication Class Instructions Start Date End Date Cetirizine 10 mg Tab TAKE 1 TABLET BY [facility] ONCE 2 HOURS BEFORE EXAM WITH METHYLPREDNISOLONE 2022-10-28 2023-04-07 methylPREDNISolone 32 mg Tab TAKE 1 TABL ET BY MOUTH 12 HOURS BEFORE EXAM AND TAKE 1 TABLET 2 HOURS BEFORE EXAM 2022-10-28 2023-04-07 Sertraline 50 mg Tab TAKE 1 TABLET BY [facility] EVERY MORNING WITH 100 MG TABLET 2022-08-25 [...] AREA(S) EVERY MORNING 2022-12-16 No Data Available [id number] 3 TO 4 DROPS INTO [...] 25 mg Cap TAKE 1 CAPSULE BY [facility] AT BEDTIME 2023-05-20 No Data Available [...] 10 mg Tab TAKE 1 TABLET BY [facility] EVERY MORNING 2024-04-27 No Data Available Clotrimazole [...] to weight 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;Peripheral vascular [...] appt with PCP for medication review and marketing services vice president for further eval such as possible echo; [...] to ENTCN to assist 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 Other problems related to medical facilities and other health care Active 2024-06-2 9 N/A PSYCH CONTINGENCY PLANLast updated: 02/18/2025Schizoaffective Disorder Member to call for the following symptoms: Anxiety/ Hallucinations/ Mistrust / inability to relax/ Restlessness/ Worsening paranoia or delusions Planned intervention: Contact support person: son / Transfer member to [address] [place] [address]/ Quetiapine 50mg PO q12h PRN agitation/ Remind member of breathing exercises/ Encourage member to journal feelings/ Limit extra stimulation Mixed stress and urge urinar y incontinence Active 7 N/A StableUses adult pullups Size: XL (5 per day)Gloves: Large - 2 boxes Wipes: 4 packs monthly Monitor for urinary changes or UTI s/sx and continue with PCP.-Member provided with [place] incontinence refill line: [phone] Morbid obesity Active 9 N/A BMI: 46.26Emphasized importance on diet modifications including calorie restricted low-cholesterol low-fat diet advised. Exercise encouraged. Chronic back painLumbar spin al stenosis Somatoform pain disorder Active 0 8 N/A Orth[facility] 250-Maury Godoy DPM02/20/25Does not have PT in place after back surgery? Dr. Pascual (PCP) has ordered azar [address] [phone] referral to OT or PT for Tanesha [...] PCP unable to place Essential hypertension Active 2 0 N/A Rx: losartan 100mg daily, metoprolol 50 mg daily, Chlorthalidone 25 mg daily- Monitor blood pressure at home and keep BP diary.- Low sodium diet and regular exercise as recommended and tolerated- BP Goal <130/80- Continue to follow up with PCP/Specialist- BP: 138/89 - (05/15/25-outside care) Dizziness Active 2025-06-2 0 N/A 07/03/25:She reports chronic hx of dizziness for about 1 year which she has mentioned to her PCP, but feels it is not being investigated. Per member, she has requested referral to neurology, but PCP has declined referral. -discussed scheduling appt with PCP for medication review-discussed following up with her marketing services vice president for eval, i.e need for echo-advised on sitting for 2-3 minutes before movement. Advised having walker with her at all times for fall prevention-Specialist referral placed today for neurology for further eval given her ongoing symptoms Osteoarthritis Active 2025-06-2 0 N/A 07/03/25:Recent fall on 05/10/25. She [...] (do not use for phone, instead use 99171-71) [facility] ([place]2023 Noninfective gastroenteritis and colitis, unspecifiedRepeated [...] sitesSacroiliitis, not elsewhere classifiedAthscl heart disease of stillaguamish cor art w unsp ang pctrsPeripheral vascular disease, unspecified New patient,40-59min; chronic exacerbation, 2 stable chronic or 1 acute illness add add modifier 95 for video (do not use for phone, instead use 07872-00) [facility] New patient,40-59min; chronic exacerbation, 2 stable chronic or 1 acute illness add add modifier 95 for video (do not use for phone, instead use 60490-40) [facility] [place] 04[place] New patient,40-59min; chronic exacerbation, 2 stable chronic or 1 acute illness add add modifier 95 for video (do not use for phone, instead use 76117-44) [facility] New patient,40-59min; chronic exacerbation, 2 stable chronic or 1 acute illness add add modifier 95 for video (do not use for phone, instead use 32338-70) [facility] New patient,40-59min; chronic exacerbation, 2 stable chronic or 1 acute illness add add modifier 95 for video (do not use for phone, instead use 61254-41) [facility] [place] New patient,40-59min; chronic exacerbation, 2 stable chronic or 1 acute illness add add modifier 95 for video (do not use for phone, instead use 41233-43) [facility] New patient,40-59min; chronic exacerbation, 2 stable chronic or 1 acute illness add add modifier 95 for video (do not use for phone, instead use 40164-36) [facility] New patient,40-59min; chronic exacerbation, 2 stable chronic or 1 acute illness add add modifier 95 for video (do not use for phone, instead use 61694-05) [facility] ([place] 04/07/2023 Unlisted special service; to be used for medical record reviews and reporting CPTII codes (1111F, etc) [facility] 07/01/2023 Other specified counseling Unlisted special service; to be used for medical record reviews and reporting CPTII codes (1111F, etc) [facility] 07[place]/2023 Unlisted special service; to be used for medical record reviews and reporting CPTII codes (1111F, etc) [facility] 07[place]/2023 No Data Available [facility] 08/10/2023 Body mass index (BMI) 45.0-4 9.9, adultPrediabetesMorbid (severe) obesity due to excess caloriesTinea unguiumLumbago with sciatica, left sideLumbago with sciatica, right sideOther chronic painOther intervertebral disc degeneration, lumbar region No Data Available [facility] 08[place]10/2023 No Data Available [facility] 08/10/2023 No Data Available [facility] 10/21/2023 Dorsalgia, unspecifiedOther chronic painMorbid (severe) obesity due to excess caloriesOther specified personal risk factors, not elsewhere classified No Data Available [facility] 10/21/2023 Estab. patient 30-39min; chronic exacerbation, 2 stable chronic or 1 acute illness add add modifier 95 for video, (do not use for phone, instead use 75043-13) [facility] 05[place]11/2024 Type 2 diabetes mellitus wit h diabetic chronic kidney diseaseChronic kidney disease, stage 3bRepeated fallsUnspecified hearing loss, left earTinnitus, left earUnspecified hemorrhoidsOther specified postprocedural statesLumbago with sciatica, left sideLumbago with sciatica, right sideOther chronic painOther intervertebral disc degeneration, lumbar regionIdiopathic chronic gout, unspecified site, without tophus (tophi)Polyosteoarthritis, unspecifiedSchizophrenia, unspecifiedAthscl heart disease of stillaguamish cor art w unsp ang pctrsType 2 diabetes w diabetic peripheral angiopath w/o gangreneUnsp athscl stillaguamish arteries of extremities, bilateral legsChronic obstructive pulmonary [...] (do not use for phone, instead use 99232-29) [facility]20[place] Estab. patient 30-39min; chronic exacerbation, 2 stable chronic or 1 acute illness add add modifier 95 for video, (do not use for phone, instead use 69642-26) [facility] 05[place]11/2024 Estab. patient 30-39min; chronic exacerbation, 2 stable chronic or 1 acute illness add add modifier 95 for video, (do not use for phone, instead use 01230-28) [facility] 05[place]11/2024 Estab. patient 30-39min; chronic exacerbation, 2 stable chronic or 1 acute illness add add modifier 95 for video, (do not use for phone, instead use 44471-56) [facility] 05[place]11/2024 Estab. patient 30-39min; chronic exacerbation, 2 stable chronic or 1 acute illness add add modifier 95 for video, (do not use for phone, instead use 07237-59) [facility] 05[place]11/2024 Estab. patient 30-39min; chronic exacerbation, 2 stable chronic or 1 acute illness add add modifier 95 for video, (do not use for phone, instead use 93316-15) [facility] 05/11/2024 No Data Available [facility] 05/14/2024 Type 2 diabetes mellitus wit h diabetic chronic kidney diseaseChronic kidney disease, stage 3b No Data Available [facility] 05[place]14/2024 No Data Available [facility] 06[place]20[place]2024 Type 2 diabetes mellitus wit h diabetic chronic kidney diseaseChronic kidney disease, stage 3b No Data Available [facility] 06/20/2024 Unlisted special service; to be used for medical record reviews and reporting CPTII codes (1111F, etc) [facility] 09/04/2024 Other specified counseling Unlisted special service; to be used for medical record reviews and reporting CPTII codes (1111F, etc) [facility] ([place]/04/2024 Unlisted special service; to be used for medical record reviews and reporting CPTII codes (1111F, etc) [facility] [place] 09/04/2024 Estab. patient 10-29min; 1 minor problem; add add modifier 95 for video, modifier 93 for phone [facility] 12/18/2024 Type 2 diabetes mellitus wit h diabetic chronic kidney diseaseChronic kidney disease, stage 3bMorbid (severe) obesity due to excess caloriesBody mass index (bmi) 50-59.9 , adult Estab. patient 10-29min; 1 minor problem; add add modifier 95 for video, modifier 93 for phone [facility] 12/18/2024 Estab. patient 10-29min; 1 minor problem; add add modifier 95 for video, modifier 93 for phone [facility] 12/18/2024 Estab. patient 20-29min; 1 stable chronic or 2 minor; add add modifier 95 for video, modifier 93 for phone [facility] 02/18/2025 Noninfective gastroenteritis and colitis, unspecifiedRepeated fallsUnspecified [...] to conditions classified elsewhereAthscl heart disease of stillagu[place] cor art w unsp ang pctrsPeripheral vascular disease, unspecifiedUnsp athscl stillaguamish arteries of extremities, bilateral legsChronic obstructive pulmonary [...] 95 for video, modifier 93 for phone [facility] [place] 02[place]18[place]20[place] Estab. patient 20-29min; 1 stable chronic or 2 minor; add add modifier 95 for video, modifier 93 for phone [facility] [place] 02/18/2025 Estab. patient 20-29min; 1 stable chronic or 2 minor; add add modifier 95 for video, modifier 93 for phone [facility], [place] 02/18/2025 Estab. patient 20-29min; 1 stable chronic or 2 minor; add add modifier 95 for video, modifier 93 for phone [facility] [place] 02/18/2025 Estab. patient 20-29min; 1 stable chronic or 2 minor; add add modifier 95 for video, modifier 93 for phone [facility] [place] 02/18/2025 Estab. patient 20-29min; 1 stable chronic or 2 minor; add add modifier 95 for video, modifier 93 for phone [facility] [place] 02/18/2025 Estab. patient 20-29min; 1 stable chronic or 2 minor; add add modifier 95 for video, modifier 93 for phone [facility] [place] 02/18/2025 Estab. patient 10-29min; 1 minor problem; add add modifier 95 for video, modifier 93 for phone [facility] [place] 02/20/2025 Morbid (severe) obesity due to excess caloriesDorsalgia, unspecifiedOther chronic painSpinal stenosis, lumbar region without neurogenic claudicationPain disorder exclusively related to psychological factors Estab. patient 10-29min; 1 minor problem; add add modifier 95 for video, modifier 93 for phone [facility] [place] 02/20/2025 Estab. patient 10-29min; 1 minor problem; add add modifier 95 for video, modifier 93 for phone [facility] ([place] 07/03/2025 Dizziness and giddinessEssen tial (primary) hypertensionRepeated [...] 95 for video, modifier 93 for phone [email or web address] 07[place]03/20[place] Estab. patient 10-29min; 1 minor problem; add add modifier 95 for video, modifier 93 for phone [facility] [place] 07/03/2025 Estab. patient 10-29min; 1 minor problem; add add modifier 95 for video, modifier 93 for phone [email or web address] [place] 07/03/2025 Estab. patient 10-29min; 1 minor problem; add add modifier 95 for video, modifier 93 for phone [facility] [place] 07/03/2025 Vital Signs Date of Collection Vitals [...] (do not use for phone, instead use 98821-58) [id number] 2023-04-07 No Data Available No Data Availa [...] reviews and reporting CPTII codes (1111F, etc) 68243 2023-07-01 No Data Available No Data Availa ble SBP < 130 (3074F) 3074F 2023-07-01 No Data Available No Data Available DBP <80 (3078F) 3078F 2023-07-01 No Data Available No Data Available No Data Available 08016 2023-08-10 No Data Available No Data Available Medication List Documented (1159F) 1159F 2023-08-10 No Data Available No Data Lena ilable BMI obtained (3008F) 3008F 2023-08-10 No Data Availab le No Data Available No Data Available [id number] 2023-10-21 No Data Available No Data Available Medication List Documented (1159F) 1159F 2023-10-21 No Data Available No Data Lena ilable Estab. patient 30-39min; chronic exacerbation, 2 stable chronic or 1 acute illness add add modifier 95 for video, (do not use for phone, instead use 14117-83) 68797 2024-05-11 No Data Available No Data Availa [...] Available No Data Available No Data Available [id number] 2024-05-14 No Data Available No Data Available Medication List Documented (1159F) 1159F 2024-05-14 No Data Available No Data Lena ilable No Data Available [id number] 2024-06-20 No Data Available No Data Available Medication List Documented (1159F) 1159F 2024-06-20 No Data Available No Data Lena ilable Unlisted special service; to be used for medical record reviews and reporting CPTII codes (1111F, etc) 32367 2024-09-04 No Data Available No Data Availa ble SBP >= 140 3077F 2024-09-04 No Data Available No Data Available DBP >=90 3080F 2024-09-04 No Data Available No Data Available Estab. patient 10-29min; 1 minor problem; add add modifier 95 for video, modifier 93 for phone 25341 2024-12-18 No Data Available No Data Availa ble Medication List Documented (1159F) 1159F 2024-12-18 No Data Available No Data Lena ilable BMI obtained (3008F) 3008F 2024-12-18 No Data Availab le No Data Available Estab. patient 20-29min; 1 stable chronic or 2 minor; add add modifier 95 for video, modifier 93 for phone 22784 2025-02-18 No Data Available No Data Availa [...] 95 for video, modifier 93 for phone 95101 2025-02-20 No Data Available No Data Availa ble Pain Assessment - Pain Documented on a Pain Scale (1125F) 1125F 2025-02-20 No Data Available No Data Lena ilable Estab. patient 10-29min; 1 minor problem; add add modifier 95 for video, modifier 93 for phone 94159 2025-07-03 No Data Available No Data Availa [...] rheumatoid factor, multiple sitesAtherosclerotic heart disease of stillagu[place] coronary artery with unspecified angina pectoris;Peripheral vascular [...] discChronic gouty arthritis;Generalized osteoarthritisSchizophreniaAtherosclerotic heart disease of stillagu[place] coronary artery with unspecified angina pectoris;Peripheral vascular disease, unspecifiedUnspecified atherosclerosis of stillagu[place] arteries of extremities, bilateral legsChronic obstructive pulmonary [...] to conditions classified elsewhereAtherosclerotic heart disease of still[place] coronary artery with unspecified angina pectoris;Peripheral vascular disease, unspecifiedUnspecified atherosclerosis of stillagu[place] arteries of extremities, bilateral legsChronic obstructive pulmonary [...] for weight clinic [place] [facility] [place] per pt [...] area that had available staff.Pt to call [facility] and get name of PT providers in her area that are covered.Will investigate weight loss clinics.Pt to look for back exercises on YouTube, activity as tolerated.Will FU.BMI 49.25send to weight clinic but not [place]referral for weight clinic - also [place] [facility] [place]2023Have not been able to find clinic that is covered by [facility] in er area. Pt to call [facility] and find list of [...] portal notes, I70.203 - Unspecified atherosclerosis of stillagu[place] arteries of extremities, bilateral legs continues to [...] to find clinic that is covered by [facility] in er area. Pt to call [facility] and find list of [...] area that had available staff.Pt to call [facility] and get name of [...] our conversation of three days ago. Her MAIL SERVICE COORDINATOR is supposed to go tonight or tomorrow [...] modifier 95)Continue to see PCP. Follow-up with [facility] as needed for any acute or disease [...] our conversation of three days ago. Her MAIL SERVICE COORDINATOR is supposed to go tonight or tomorrow [...] mg dose. She will be traveling to [place] so she is to ask for emergency traveling supply, which won't be much as she will be back mid July.Refilled w instructions to pharmacy.Will FU after mid-july. 2024-12-18 08:09:04 Estab. patient 10-29 min; 1 minor problem; add add modifier 95 for video, modifier 93 for phoneContinue to see PCP. [facility] any acute or disease [...] our conversation of three days ago. Her MAIL SERVICE COORDINATOR is supposed to go tonight or tomorrow [...] mg dose. She will be traveling to [place] so she is to ask for emergency [...] to find clinic that is covered by [facility] in er area. Pt to call [facility] and find list of [...] support person: son / Transfer member to [address] [place] [address]/ Quetiapine 50mg PO q12h PRN agitation/ Remind [...] weight lossWill be sending to endo/weight loss clinicStablestatinMO portal notes, I70.203 - Unspecified atherosclerosis of stillagu[place] arteries of extremities, bilateral legs Stablealbuterol sulfateMonitor [...] with GLP1 and [facility] 250-GodoyTerrancegennaromarsha Williamson, DPM02/20/25Does not have PT in place after back surgery? Dr. Pascual (PCP) has ordered walker [facility] [id number] [facility] [place] [phone] referral to OT or PT for Tanesha [...] for medication review-discussed following up with her marketing services vice president for eval, i.e need for echo-advised on [...] appt with PCP for medication review and marketing services vice president for further eval such as possible echo; [...] s/sx and continue with PCP.-Member provided with [facility] incontinence refill line: [phone] 5.9% (08/22/24)Ha1c: 5.7% (05/15/2025- outside care)eGFR: 37 [...]
--- OUTSIDE RECORDS SUMMARY | 2025-09-16 10:04 | XMS_ITS | Encounter Summary ---
Author Organization [facility], Address [address] [place] [address] Phone Care Team Providers Care Credit Front Office Developer Name Role Phone Violeta Boo MD Primary Care Provide r Encounter Details Date Type Department Care Team (Late Contact Info) Description 02/13/2024 Documentation Only [facility] [address] [place] [address] Rowena Knowles [address] [place] [phone] Social History Tobacco Use Types Packs/Day Years [...] [facility] [address] [place] [address] Shailesh Vallejo MD [address] [place] [address] [place] [address] documented as of this encounter Visit Diagnoses Not on filedocumented in this encounter Care Teams Credit Front Office Developer Relationship Specialty Start Date End Date Violeta Boo MD [address] [place] [phone] PCP - General Internal Medicine 03/21/23 documented as of this encounter
--- OUTSIDE RECORDS SUMMARY | 2025-09-16 10:04 | XMS_ITS | Encounter Summary ---
Author Organization [employer] Address [address] [facility] [address] [place] [address] Care Team Providers Care Training Analyst Name Role Phone Violeta Boo MD Primary Care Provide r Encounter Details Date Type Department Care Team ([facility] Contact Info) Description 03/22/2023 Orders Only [facility] [address] [place], [place] [phone] Brittany Epps LPN Social History Tobacco Use [...] on filedocumented in this encounter Care Teams Training Analyst Relationship Specialty Start Date End Date Violeta Boo MD [address] [place], [place] [phone] PCP - General Family Medicine 05/21/22 documented as of this encounter
--- OUTSIDE RECORDS SUMMARY | 2025-09-16 10:04 | XMS_ITS | Encounter Summary ---
Author Organization [employer] Address [address] [facility] 7t [place] [address] Care Team Providers Care Transportation Services Representative Name Role Phone Violeta Boo MD Primary Care Provide r Reason for Visit * Reason Onset Date Comments Referral 09/09/2025 Encounter Details Date Type Department Care Team ([facility] st Contact Info) Description 09/09/2025 Telephone [facility] [address] [place] [address] Violeta Boo MD [address] [place] [address] Referral Social History Tobacco Use Types Packs/Day [...] encounter Miscellaneous Notes * Telephone Encounter - Megan Mejia RN - 09/11/2025 3:46 PM EDT TC returned to pt. Pt. Agrees to get chest x-ray performed at [facility] or [facility] when she returns home. 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 Otherwise pt. Requests new genetics referral due to strong family h/o cancer. Insurance at the timeit was last placed in 2023 was [employer] and now pt. Has [employer]. Informed pt. Request would be sent to provider and she should receive a call or letter in regards to appointment scheduling within a few weeks. Pt. Agrees to plan * Telephone Encounter - Zaheer Cain - 09/10/2025 4:22 PM EDT Tc from pt returning call regarding message prior. * Telephone Encounter - Leda Ruiz RN - 09/10/2025 3:40 PM EDT TC placed to patient [phone] in regards to below message. Patient did not answer, RN left requesting CB to red team nurses. Patient to f/u PRN. * Telephone Encounter - Lorri Spence - 09/10/2025 1:54 PM EDT Tc from pt requesting a call back regarding prior message Contact pt at [phone] (malaysian) * Telephone Encounter - Leda Ruiz RN - 09/10/2025 9:41 AM EDT TC placed to patient [phone] in regards to below message. Patient did not answer, RN left VM requesting CB to red team nurses. Patient to f/u PRN. * Telephone Encounter - Leda Ruiz RN - 09/09/2025 12:54 PM EDT TC returned to patient [phone] in regards to below message ([place] #[id number]) in regards to below message. Patient has several concerns. Patient reports she would like to be tested for cancer. Patient reports she would like her full body tested for cancer. Patient reports her daughter recently from cancer, her siblings both had cancer, and her parents also had cancer. Patient reports she is currently in [place] for her daughters services. Patient advised of routine cancerscreenings for females include: mammogram, pap smears and colonoscopies. Patient advised her last mammo was 08/2024 and she has an upcoming mammo on 10/04/25 per [facility]. Patient advised PAP's usually stop at age of 65 and patient last had colonoscopy completed in 2021. Patient reports she also needs a tuberculosis screen for a day program. Patient reminded of positive tspot from 08/2022, therefore patient cannot have tspot completed again and will need cxr. Patient advised RN has sent messageto PCP to order chest x- ray however patient reports I have never been f*cking tested for tuberculosis before. Patient advised the tuberculosis testing was completed by her product management analyst however patient reports she does not recall this and reports it is inaccurate information. RN advised patient she will need an appointment with her PCP to further discuss her cancer testing request and also tuberculosis screen results and POC. Patient reports she is currently in [place] and returns on Tuesday. Patient reports she will call [facility] on Tuesday to schedule an appointment with PCP. Sending as FYI-please disregards previous TC request a chest x-ray to be ordered and await until patient is scheduled with you to discuss POC. Thank you! * Telephone Encounter - Lorri Spence - 09/09/2025 11:10 AM EDT Tc from pt requesting a referral to be tested for cancer , she stating daughter passed this week for cancer and she would like too know for herself Contact pt at [phone] (malaysian) documented in this encounter Plan of Treatment Not on file documented as of this encounter Visit Diagnoses Not on filedocumented in this encounter Additional Health Concerns Assessment Noted Time PHQ-9 Depression Total Score: 17 08/13/ 024 11:23 AM EDT documented as of this encounter Care Teams Transportation Services Representative Relationship Specialty Start Date End Date Violeta Boo MD [address] [place] [address] PCP - General Family Medicine 05/21/22 documented as of this encounter
--- OUTSIDE RECORDS SUMMARY | 2025-09-16 10:04 | XMS_ITS | Encounter Summary ---
Author Organization [facility] Address [address] [facility] 7t [place] [address] Care Team Providers Care Operations Boardman Name Role Phone Violeta Boo MD Primary Care Provide r Reason for Referral * Consultation (Routine) - Closed Specialty Diagnoses / Procedures Referred By Alex cruz Referred To Contact Genetics Diagnoses Family history of cancer Violeta Boo MD [address] [place] [address] Phone: tel: fax: [address] Phone: tel: fax: Referral ID Status Reason Start Date Expiration Date V isits Requested Visits Authorized [id number] Closed Specialty Services Required 09/11/2025 09/11/2026 1 1 Encounter Details Date Type Department Care Team (Late st Contact Info) Description 09/11/2025 Orders Only [facility] MED[facility]INE [address] [place], [place] [phone] Violeta Boo MD [address] [place], [place] [phone] Family history of cancer (Primary Dx) Social History Tobacco Use Types Packs/Day Years [...] as of this encounter Plan of Treatment Scheduled Referrals Name Type Priority Associated Diagnoses Orde r Schedule Referral to Genetics Outpatient Referral Routine Family history of cancer Expected: 09/11/2025 (Approximate), Expires: 09/11/2026 documented as of this encounter Visit Diagnoses Diagnosis Family history of cancer- Primary Family history of unspecified malignant neoplasm documented in this encounter Additional Health Concerns Assessment Noted Time PHQ-9 Depression Total Score: 17 024 11:23 AM EDT documented as of this encounter Care Teams Operations Boardman Relationship Specialty Start Date End Date Violeta Boo MD [address] [place] [address] PCP - General Family Medicine 05/21/22 documented as of this encounter
--- OUTSIDE RECORDS SUMMARY | 2025-09-16 10:04 | XMS_ITS | Encounter Summary ---
Author Organization [employer] Address [address] [facility] 7t [place] [address] Care Team Providers Care Riverboat Captain Name Role Phone Violeta Boo MD Primary Care Provide r Encounter Details Date Type Department Care Team (Late st Contact Info) Description 04/26/2023 Orders Only [facility]S [address] [place] [address] Brittany Epps LPN Social History Tobacco Use [...] PM EDT Narrative 05/17/2023 7:08 PM EDT [facility] [address] XRay Report Signed Patient: Violeta Alvarenga V MR#: [id number] : 1950 Acct:[id number] Age/Sex: 72 / F ADM Date: 05/05/23 Loc: [facility] Attending Dr: Violeta Pascual MD Ordering Physician: Violeta Boo MD Date of Service: 05/05/23 Procedure(s): XR lumbar spine 2-3V Accession Number(s): [id number] cc: Violeta Boo MD EXAMINATION: XR LUMBOSACRAL [...] in OV> 05/17/23 1905 DD/ 1238 TD/TT: Stacker Tender: SANA Procedure Note Donotuseinterpreter, Image - 05/17/[address] [address] XRay Report Signed Patient: Violeta Alvarenga VMR#: [id number] : 1950cct:[id number] Age/Sex: 72 / FADM Date: 05/05/23 Loc: HO.XRAMARILYS Attending Dr: Violeta Pascual MD Ordering Physician: Violeta Boo MD Date of Service: 05/05/23 Procedure(s): XR lumbar spine 2-3V Accession Number(s): [id number] cc: Violeta Boo MD EXAMINATION: XR LUMBOSACRAL [...] in OV> 05/17/23 1905 DD/ 1238 TD/TT: Stacker Tender: SANA [facility] External Provider IMG XR PROCEDURES Edited Result - Final documented in this encounter Visit Diagnoses Not on filedocumented in this encounter Care Teams Riverboat Captain Relationship Specialty Start Date End Date Violeta Boo MD [address] [place] [address] PCP - General Family Medicine 05/21/22 documented as of this encounter
--- OUTSIDE RECORDS SUMMARY | 2025-09-16 10:04 | XMS_ITS | Encounter Summary ---
Author Organization [employer] Address [address] [facility] [address] [place] [address] Care Team Providers Care Airplane Inspector Name Role Phone Violeta Boo MD Primary Care Provide r Reason for Visit * Reason Onset Date Comments Referral 12/07/2024 Encounter Details Date Type Department Care Team ([facility] st Contact Info) Description 12/07/2024 Telephone [facility]INE [address] [place], [place] [phone] Violeta Boo MD [address] [place] [address] Referral Social History Tobacco Use Types Packs/Day [...] 11:04 AM EST Tc from [facility] with [facility] as she states wrong referral was sent over she's requestingPhysical Therapy referral to be faxed [facility] [phone]. documented in this encounter Plan of Treatment Not on file documented as of this encounter Visit Diagnoses Not on filedocumented in this encounter Additional Health Concerns Assessment Noted Time PHQ-9 Depression Total Score: 17 024 11:23 AM EDT documented as of this encounter Care Teams Airplane Inspector Relationship Specialty Start Date End Date Violeta Boo MD [address] [place] [address] PCP - General Family Medicine 05/21/22 documented as of this encounter
--- OUTSIDE RECORDS SUMMARY | 2025-09-16 10:04 | XMS_ITS | Encounter Summary ---
Author Organization [facility] Address [address] [place] [address] Phone Care Team Providers Care Saw Offbearer Name Role Phone Violeta Boo MD Primary Care Provide r Encounter Details Date Type Department Care Team (Late Contact Info) Description 10/22/2022 Documentation Only [facility] [address] [place] [address] Jazmin Powell PA [address] [place] [address] [place] [address] Social History Tobacco Use Types [...] [facility] [address] [place] [address] Shailesh Vallejo MD [address] [facility] [place] [address] documented as of this encounter Visit Diagnoses Not on filedocumented in this encounter Care Teams Saw Offbearer Relationship Specialty Start Date End Date Violeta Boo MD [address] [place] [phone] PCP - General Internal Medicine 03/21/23 documented as of this encounter
--- OUTSIDE RECORDS SUMMARY | 2025-09-16 10:04 | XMS_ITS | Encounter Summary ---
Author Organization [employer] Address [address] [facility] 7t [place] [address] Care Team Providers Care General Duty Nurse Name Role Phone Violeta Boo MD Primary Care Provide r Encounter Details Date Type Department Care Team ([facility] st Contact Info) Description 07/20/2024 Telephone [facility] [address] [place] [address] CadenAngella, OD [address] [place], [place] [phone] Social History Tobacco Use Types Packs/Day Years [...] on filedocumented in this encounter Care Teams General Duty Nurse Relationship Specialty Start Date End Date Violeta Boo MD [address] [place] [address] PCP - General Family Medicine 05/21/22 documented as of this encounter
--- OUTSIDE RECORDS SUMMARY | 2025-09-16 10:04 | XMS_ITS | Encounter Summary ---
Author Organization [employer] Address [address] [facility] 7t [place] [address] Care Team Providers Care Avionics Safety Inspector Name Role Phone Violeta Boo MD Primary Care Provide r Reason for Visit * Reason Onset Date Comments Durable Medical Equipment 11/20/2024 Encounter Details Date Type Department Care Team ([facility] st Contact Info) Description 11/20/2024 Telephone [facility] [address] [place], [place] [phone] Violeta Boo MD [address] [place] [address] Durable Medical Equipment Social History Tobacco Use [...] is your housing situation today? I have chatnal alexandre 01/25/[address] you [...] any questions you can contact pt at [phone]. (Surinamese Speaker) documented in this encounter Plan of Treatment Not on file documented as of this encounter Visit Diagnoses Not on filedocumented in this encounter Additional Health Concerns Assessment Noted Time PHQ-9 Depression Total Score: 17 024 11:23 AM EDT documented as of this encounter Care Teams Avionics Safety Inspector Relationship Specialty Start Date End Date Violeta Boo MD [address] [place] [address] PCP - General Family Medicine 05/21/22 documented as of this encounter
--- OUTSIDE RECORDS SUMMARY | 2025-09-16 10:04 | XMS_ITS | Encounter Summary ---
Author Organization [facility] Address [address] [place] [address] Phone Care Team Providers Care Cst Name Role Phone Violeta Boo MD Primary Care Provide r Encounter Details Date Type Department Care Team (Late Contact Info) Description 03/20/2025 Documentation Only [facility] [address] [place] [address] Rowena Knowles [address] [place] [phone] Social History Tobacco Use Types Packs/Day Years [...] [facility] [address] [place] [address] Shailesh Vallejo MD [address] [place] [address] [place] [address] documented as of this encounter Visit Diagnoses Not on filedocumented in this encounter Care Teams Cst Relationship Specialty Start Date End Date Violeta Boo MD [address] [place] [phone] PCP - General Internal Medicine 03/21/23 documented as of this encounter
--- OUTSIDE RECORDS SUMMARY | 2025-09-16 10:04 | XMS_ITS | Clinical Summary ---
Author Organization 175 [facility] Address 175 [place] [address] Phone Care Team Providers Care Nutrition Club Ambassador Name Role Phone Zheng Boo MD Primary [...] Chronic kidney disease, stag e III (moderate) ([facility] V24, [facility] V28) 10/08/2024 Essential hypertension, benign 10/08/2024 Hyperlipidemia 10/08/2024 Osteopenia 10/08/2024 Primary osteoarthritis of both knees 10/08/2024 Psychotic disorder ([facility] V24, [facility] V28) Tubular adenoma of colon 10/08/2024 [...] appointment Onychomycosis 03/08/2023 Type 2 diabetes mellitus ([facility] V24, [facility] V 28) 01/31/2023 Otitis externa 12/16/2022 [...] Chronic gouty arthritis 09/08/2018 Episodic mood disorder ([facility] V24) 08/08/2018 Generalized osteoarthritis 08/08/2018 Morbid obesity ([facility] V24, [facility] V28) 2017 Overview (10/08/2024): Last Assessment & Plan: Discussed re weight reduction options including exercise, life style modifications, diet, referral to cash reconciliation specialist. Discussed re lower calorie intake, increase dietary fiber Pt agreed to be referred to dietitian. Non-cardiac chest pain 08/08/2018 Seasonal allergies 08/08/2018 Unintended awareness under g eneral anesthesia during procedure 08/08/2018 Encounters Date Type Department Care Team Description 07/22/2025 1:45 PM EDT Office Visit Orthopedic Surgery - [place] [address] [facility] [address] [place] [phone] Cortez Malik MD Trigger thumb of right hand (Primary Dx); Acquired trigger finger of right index finger 07/18/2025 11:00 AM EDT Office Visit Bariatric Surgery [facility] 175 [facility] [address] [place] [phone] Lauren Eisenberg MD Morbid obesity with BMI of 45.0-49.9, adult ([facility] V24, [facility] V28) (Primary Dx); Gastroesophageal reflux disease, unspecified whether esophagitis present; Type 2 diabetes mellitus with obesity ([facility] V24, [facility] V28) from Last 3 Months Immunizations Immunization Administration Dates Next Due Influenza Quadravalent, MDCK [...] Care Team (Late st Contact Info) Description 10/08/2025 9:45 AM EST Office Visit Orthopedic Surgery - [place] [address] 175 [facility] 250 [place] [phone] Maury Godoy, DPM 230 [place] [address] 10/21/2025 2:00 PM EST Nutrition Bariatric Surgery - [place] 175 [facility] [address] [place] [address] Elana Aviles, RD 175 [facility] 120 [place] [address] Health Maintenance Due Date Last Done Comments Breast Cancer Screening 1950 Colorectal Cancer Screening: Colonoscopy 1952 Diabetes: Annual Foot Exam 1962 Diabetes: Annual Retina Eye Exam 1962 RSV Immunization Adult Patients (1 - Risk 50-74 years 1-dose series) 2002 Falls Risk Assessment 10/24/2022 Social Influencers of Health Screening 10/24/2022 DTaP,Tdap,and Td Vaccines (2 - Td or Tdap) 01/29/2023 01/29/2013 Diabetes: Annual Urine Albumin-Creatinine Ratio (uACR) 12/17/2023 Depression Screening 11/14/2024 COVID-19 Vaccine (6 - Pfizer risk 2023- season) 2025 08/13/2024, 09/07/2023, 08/26/2022, Additional history exists Influenza Vaccine (#1) 2025 , 09/07/2023, 08/26/2022, Additional history exists Diabetes: Blood Sugar Control Test (HGBA1C) 01/23/2026 07/26/2025, 05/15/2025, 04/07/2023, Additional history exists Diabetes: Annual GFR (Glomerular [...] Name Priority Date/Time Associated Diagnosis Comments VITAMIN B12 Routine 07/26/2025 10:44 AM EDT Morbid obesity with BMI of 45.0-49.9, adult ([facility] V24, [facility] V28) VITAMIN B1 Routine 07/26/2025 10:44 AM EDT Morbid obesity with BMI of 45.0-49.9, adult ([facility] V24, [facility] V28) URIC ACID Routine 07/26/2025 10:44 AM EDT Morbid obesity with BMI of 45.0-49.9, adult ([facility] V24, [facility] V28) PARATHYROID HORMONE INTACT Routine 07/26/2025 10:44 AM EDT Morbid obesity with BMI of 45.0-49.9, adult ([facility]/HCC V24, [facility]/HCC V28) NICOTINE AND COTININE Routine 07/26/2025 10:44 AM EDT Morbid obesity with BMI of 45.0-49.9, adult ([facility]/HCC V24, [facility]/HCC V28) IRON AND TIBC Routine 07/26/2025 10:44 AM EDT Morbid obesity with BMI of 45.0-49.9, adult ([facility]/HCC V24, [facility]/HCC V28) INSULIN, TOTAL Routine 07/26/2025 10:44 AM EDT Morbid obesity with BMI of 45.0-49.9, adult (CMS/HCC V24, [facility]/HCC V28) HEMOGLOBIN A1C Routine 07/26/2025 10:44 AM EDT Morbid obesity with BMI of 45.0-49.9, adult (CMS/HCC V24, CMS/HCC V28) HELICOBACTER PYLORI BREATH TEST Routine 07/26/2025 10:44 AM EDT Morbid obesity with BMI of 45.0-49.9, adult (CMS/HCC V24, CMS/HCC V28) FOLATE Routine 07/26/2025 10:44 AM EDT Morbid obesity with BMI of 45.0-49.9, adult (CMS/HCC V24, [facility]/HCC V28) FERRITIN Routine 07/26/2025 10:44 AM EDT Morbid obesity with BMI of 45.0-49.9, adult (CMS/HCC V24, [facility]/HCC V28) CORTISOL Routine 07/26/2025 10:44 AM EDT Morbid obesity with BMI of 45.0-49.9, adult (CMS/HCC V24, [facility]/HCC V28) AR INJECTION SINGLE TENDON SHEATH OR LIGAMENT APONEUROSIS Routine 07/22/2025 1:45 PM EDT Acquired trigger finger of right index finger AR INJECTION SINGLE TENDON SHEATH OR LIGAMENT APONEUROSIS Routine 07/22/2025 1:45 PM EDT Trigger thumb of right hand XR HAND 3+ VIEWS RIGHT Routine 07/22/2025 1:42 PM EDT Pain HM ANNUAL BMP BLOOD TEST Routine 03/01/2024 LIPID PANEL Routine 03/15/2022 from Last 3 Months or Most Recently Relevant to Health Maintenance Results * Nicotine and cotinine (07/26/2025 10:44 AM EDT) [facility] Signature Nicotine <2.0 <2.0 ng/mL 07/30/2025 9:23 AM EDT [facility] Cotinine <2.0 <2.0 ng/mL 07/30/2025 9:23 AM EDT [facility] Comment: Additional Reference Ranges: Active Tobacco Passive Abstinence User Exposure 2 Weeks and more Nicotine 30 - 50 ng/mL <2 ng/mL <2 ng/mL Cotinine 200 - 800 ng/mL <8 ng/mL <2 ng/mL Reference Ranges from: Clin. Chem.; 48:2969-6647 (2002) Direct any interpretive questions to the toxicology laboratory. This is for medical use only, it is not intended for forensic use. If applicable, any drug confirmation testing reported here was developed and the performance characteristics determined by [facility]. This confirmation testing has not been cleared or approved by the FDA. The laboratory is regulated under CLIA as qualified to perform high-complexity testing. This test is used for patient testing purposes. It should not be regarded as investigational or for research. Test performed at [facility], [address] , [place] [address] Cinthya Hobbs MD, PhD - Visual Merchandising Manager Blood Venous blood specimen / Unknown Venipuncture / Unknown 07/26/2025 10:44 AM EDT 07/26/2025 10:44 AM EDT Lauren Eisenberg MD LAB BLOOD ORDERABLES Fi nal Result [facility] [address] [place] [address] * Iron and TIBC (07/26/2025 10:44 AM EDT) Iron 79 40 - 150 mcg/dL LAB CHEMISTRY METHOD 07/26/2025 2:17 PM EDT [facility] TIBC 394 250 - 450 mcg/dL LAB CHEMISTRY METHOD 07/26/2025 2:17 PM EDT [facility] Iron Saturation 20 15 - 50 % LAB CHEMISTRY METHOD 07/26/2025 2:17 PM EDT [facility] Blood Venous blood specimen / Unknown Venipuncture / Unknown 07/26/2025 10:44 AM EDT 07/26/2025 10:44 AM EDT Lauren Eisenberg MD LAB BLOOD ORDERABLES Fi nal Result [facility] [address] [place] [address], [place] [phone] * (ABNORMAL) Insulin, total (07/26/2025 10:44 AM EDT) Insulin 30.3(H) 3.0 - 25.0 mcIU/mL LAB CHEMISTRY METHOD 07/26/2025 3:13 PM EDT [facility] Blood Venous blood specimen / Unknown Venipuncture / Unknown 07/26/2025 10:44 AM EDT 07/26/2025 10:44 AM EDT Narrative [facility] - 07/26/2025 3:13 PM EDT Insulin reference range based on fasting status. Insulin values vary in non-fasting individuals. us Lauren Eisenberg MD LAB BLOOD ORDERABLES Fi nal Result Performing Organization Address [facility] Co de Phone Number [facility] [address] [place] [address], [place] [phone] * Helicobacter pylori breath test (07/26/2025 10:44 AM EDT) H Pylori Breath Test Negative Negative LAB CHEMISTRY METHOD 07/26/2025 2:03 PM EDT [facility] Breath Oral cavity structure / Unknown Non-blood Collection / Unknown 07/26/2025 10:44 AM EDT 07/26/2025 10:44 AM EDT us Lauren Eisenberg MD LAB BODY FLUIDS AND STO OLS ORDERABLES Final Result Performing Organization Address [facility] de Phone Number [facility] [address] [place] [address], [place] [phone] * Uric acid (07/26/2025 10:44 AM EDT) Uric Acid 5.6 3.1 - 7.8 mg/dL LAB CHEMISTRY METHOD 07/26/2025 2:17 PM EDT [facility] Blood Venous blood specimen / Unknown Venipuncture / Unknown 07/26/2025 10:44 AM EDT 07/26/2025 10:44 AM EDT us Lauren Eisenberg MD LAB BLOOD ORDERABLES Fi nal Result Performing Organization Address [facility]/ZIP Co de Phone Number [facility] [address] [place] [address], [place] [phone] * Vitamin B1 (07/26/2025 10:44 AM EDT) [facility] Vitamin B1 Whole Blood 72 38 - 122 ug/L 07/31/2025 10:33 AM EDT [facility] Comment: This test was developed and the performance characteristics determined by [facility]. It has not been cleared or approved by the FDA. The laboratory is regulated under CLIA as qualified to perform high-complexity testing. This test is used for patient testing purposes. It should not be regarded as investigational or for research. Test performed at [facility], [address] , [place] [address] Cinthya Hobbs MD, PhD - Visual Merchandising Manager Blood Venous blood specimen / Unknown Venipuncture / Unknown 07/26/2025 10:44 AM EDT 07/26/2025 10:44 AM EDT us Lauren Eisenberg MD LAB BLOOD ORDERABLES Fi nal Result [facility] [address] [place] [address] * Parathyroid hormone intact (07/26/2025 10:44 AM EDT) [facility] PTH 64.8 18.5 - 88.0 pcg/mL LAB CHEMISTRY METHOD 07/26/2025 3:16 PM EDT [facility] Blood Venous blood specimen / Unknown Venipuncture / Unknown 07/26/2025 10:44 AM EDT 07/26/2025 10:44 AM EDT us Lauren Eisenberg MD LAB BLOOD ORDERABLES Fi nal Result [facility] [address] [place] [address], [place] [phone] * Hemoglobin A1c (07/26/2025 10:44 AM EDT) [facility] Hemoglobin A1C 5.7 <6.5 % LAB CHEMISTRY METHOD 07/26/2025 8:51 PM EDT [facility] Mean Bld Glu Estim. 117 mg/dL LAB CHEMISTRY METHOD 07/26/2025 8:51 PM EDT [facility] Blood Venous blood specimen / Unknown Venipuncture / Unknown 07/26/2025 10:44 AM EDT 07/26/2025 10:44 AM EDT us Lauren Eisenberg MD LAB BLOOD ORDERABLES Fi nal Result [facility] [address] [place] [address], [place] [phone] * Folate (07/26/2025 10:44 AM EDT) Folate 8.2 2.8 - 17.0 ng/ml LAB CHEMISTRY METHOD 07/26/2025 2:42 PM EDT [facility] Blood Venous blood specimen / Unknown Venipuncture / Unknown 07/26/2025 10:44 AM EDT 07/26/2025 10:44 AM EDT us Lauren Eisenberg MD LAB BLOOD ORDERABLES Fi nal Result [facility] [address] [place] [address], [place] [phone] * Ferritin (07/26/2025 10:44 AM EDT) Ferritin 188 8 - 252 ng/mL LAB CHEMISTRY METHOD 07/26/2025 2:42 PM EDT [facility] Blood Venous blood specimen / Unknown Venipuncture / Unknown 07/26/2025 10:44 AM EDT 07/26/2025 10:44 AM EDT us Lauren Eisenberg MD LAB BLOOD ORDERABLES Fi nal Result Performing Organization Address [facility]/ZIP Co de Phone Number [facility] [address] [place] [address], [place] [phone] * Vitamin B12 (07/26/2025 10:44 AM EDT) Vitamin B-12 502 250 - 900 pcg/mL LAB CHEMISTRY METHOD 07/26/2025 2:42 PM EDT [facility] Blood Venous blood specimen / Unknown Venipuncture / Unknown 07/26/2025 10:44 AM EDT 07/26/2025 10:44 AM EDT us Lauren Eisenberg MD LAB BLOOD ORDERABLES Fi nal Result Performing Organization Address [facility] Co de Phone Number [facility] [address] [place] [address], [place] [phone] * Cortisol (07/26/2025 10:44 AM EDT) Pathologist [facility] Cortisol 1.0 mcg/dL LAB CHEMISTRY METHOD 07/26/2025 3:12 PM EDT [facility] Blood Venous blood specimen / Unknown Venipuncture / Unknown 07/26/2025 10:44 AM EDT 07/26/2025 10:44 AM EDT Narrative [facility] - 07/26/2025 3:12 PM EDT CORTISOL REFERENCE RANGE 8 AM SPEC: 5.0-23.0 mcg/dL 4 PM SPEC: 3.0-16.0 mcg/dL 8 PM SPEC: <5.0 mcg/dL us Lauren Eisenberg MD LAB BLOOD ORDERABLES Fi nal Result Performing Organization Address [facility]/ZIP Co de Phone Number [facility] [address] [place] [address], [place] [phone] * AR INJECTION SINGLE TENDON SHEATH OR LIGAMENT APONEUROSIS [...] IN CLINIC/BEDSIDE ORDERABLES Fin al Result * AR INJECTION SINGLE TENDON SHEATH OR LIGAMENT APONEUROSIS [...] * Annual BMP Blood Test (03/01/2024) Pathologist [facility] Annual BMP Blood Test Abstracted us Libra Dawn MD HEALTH MAINTENANCE Final Result * Lipid panel (03/15/2022) LDL/HDL Ratio [...] to Health Maintenance Insurance MEDICAID - [place] [facility] Member Subscriber Plan / Payer ( fective 2025-Present) Name:Zheng Montez Relation to Subscriber:Self Name:Zheng Montez Payer ID:[id number] Group ID:[id number] Type:Not on file Address: [address] [place] [address] Care Teams Nutrition Club Ambassador Relationship Specialty Start Date End Date Zheng Boo MD [address] [phone] PCP - General 03/29/23
--- OUTSIDE RECORDS SUMMARY | 2025-09-16 10:04 | XMS_ITS | Encounter Summary ---
Author Organization [employer] Address [address] [facility] 7t [place] [address] Care Team Providers Care Jewelry Setter Name Role Phone Violeta Boo MD Primary Care Provide r Reason for Visit * Reason Onset Date Comments Referral 12/08/2022 Encounter Details Date Type Department Care Team ([facility] st Contact Info) Description 12/08/2022 Telephone [facility] MEDICINE [address] [place] [address] Violeta Boo MD 230 [place] [address] Referral Social History Tobacco Use Types Packs/Day [...] 2:55 PM EST Tc from Oksana with [facility] requesting a new referral for colorectal Surgery at [address] [place] [address] [place] [address]. Oksana stated that a provider from their got in contact With Dr. Berkowitz, and Dr. Berkowitz advised provider that it okay for pt to receive a referral. They are now requesting a new referral from PCP, in order for pt to be ssen. If any question please contact oksana at [phone] documented in this encounter Plan of Treatment Not on file documented as of this encounter Visit Diagnoses Not on filedocumented in this encounter Care Teams Jewelry Setter Relationship Specialty Start Date End Date Violeta Boo MD [address] [place] [address] PCP - General Family Medicine 05/21/22 documented as of this encounter
--- OUTSIDE RECORDS SUMMARY | 2025-09-16 10:04 | XMS_ITS | Encounter Summary ---
Author Organization [employer] Address 75 [facility] 7t [place] [address] Care Team Providers Care Mud Trucker Name Role Phone Violeta Boo MD Primary Care Provide r Reason for Visit * Reason Onset Date Comments Med Refill 10/25/2024 Encounter Details Date Type Department Care Team ([facility] st Contact Info) Description 10/25/[address] [facility] MEDICINE [address] [place] [address] Violeta Boo MD 230 [place] [address] Med Refill Social History Tobacco Use Types [...] documented as of this encounter Care Teams Mud Trucker Relationship Specialty Start Date End Date Violeta Boo MD 230 [place] [address] PCP - General Family Medicine 05/21/22 documented as of this encounter
--- OUTSIDE RECORDS SUMMARY | 2025-09-16 10:04 | XMS_ITS | Encounter Summary ---
Author Organization [employer] Address [address] [facility] 7t [place] [address] Care Team Providers Care Bsa Officer Name Role Phone Violeta Boo MD Primary Care Provide r Reason for Visit * Reason Comments Med Refill Encounter Details Date Type Department Care Team ([facility] st Contact Info) Description 11/02/2024 Refill [facility] MEDICINE 230 [place], [place] [phone] Violeta Boo MD 230 [place], [place] [phone] Pain Social History Tobacco Use Types Packs/Day [...] documented as of this encounter Care Teams Bsa Officer Relationship Specialty Start Date End Date Violeta Boo MD [address] [place] [address] PCP - General Family Medicine 05/21/22 documented as of this encounter
--- OUTSIDE RECORDS SUMMARY | 2025-09-16 10:04 | XMS_ITS | Encounter Summary ---
Author Organization [employer] Address 75 [facility] 7t [place] [address] Care Team Providers Care Natural Gas Technician Name Role Phone Violeta Boo MD Primary Care Provide r Encounter Details Date Type Department Care Team ([facility] st Contact Info) Description 11/25/2022 Telephone [facility] MEDICINE 230 [place], [place] [phone] Violeta Boo MD 230 [place], [place] [phone] Social History Tobacco Use Types Packs/Day Years [...] on filedocumented in this encounter Care Teams Natural Gas Technician Relationship Specialty Start Date End Date Violeta Boo MD 230 [place], [place] [phone] PCP - General Family Medicine 05/21/22 documented as of this encounter
--- OUTSIDE RECORDS SUMMARY | 2025-09-16 10:04 | XMS_ITS | Encounter Summary ---
Author Organization [employer] Address [address] [facility] 7t [place] [address] Care Team Providers Care Lapping Machine Set Up Operator Name Role Phone Violeta Boo MD Primary Care Provide r Reason for Visit * Reason Onset Date Comments Appointment Request 02/17/2023 Encounter Details Date Type Department Care Team ([facility] st Contact Info) Description 02/17/2023 Telephone [facility] MEDICINE 230 [place] [address] Violtea Boo MD 230 [place] [address] Appointment Request Social History Tobacco Use Types [...] message previously sent. Please contact pt at [phone] Cambodian Speaker * Telephone Encounter - Shay Navarro - 02/17/2023 1:16 PM EDT Tc from pt requesting to r/s appt for Follow up on 02/17/2023. Please contact pt at [phone] Cambodian Speaker documented in this encounter Plan of Treatment Not on file documented as of this encounter Visit Diagnoses Not on filedocumented in this encounter Care Teams Lapping Machine Set Up Operator Relationship Specialty Start Date End Date Violeta Boo MD [address] [place] [address] PCP - General Family Medicine 05/21/22 documented as of this encounter
--- OUTSIDE RECORDS SUMMARY | 2025-09-16 10:04 | XMS_ITS | Encounter Summary ---
Author Organization [employer] Address [address] [facility] 7t [place] [address] Care Team Providers Care Auto Parts Salesperson Name Role Phone Violeta Boo MD Primary Care Provide r Reason for Visit * Reason Onset Date Comments Durable Medical Equipment 09/09/2025 Encounter Details Date Type Department Care Team ([facility] st Contact Info) Description 09/09/2025 Telephone [facility] MEDICINE 230 [place] [address] Violeta Boo MD 230 [place] [address] Durable Medical Equipment Social History Tobacco Use [...] encounter Miscellaneous Notes * Telephone Encounter - Lorri Spence - 09/09/2025 11:09 AM EDT Tc from pt requesting a DME order for a walker , currently one she has is broken Contact pt at [phone] ([email or web address]) documented in this encounter Plan of Treatment Not on file documented as of this encounter Visit Diagnoses Not on filedocumented in this encounter Additional Health Concerns Assessment Noted Time PHQ-9 Depression Total Score: 17 024 11:23 AM EDT documented as of this encounter Care Teams Auto Parts Salesperson Relationship Specialty Start Date End Date Violeta Boo MD [address] [place] [address] PCP - General Family Medicine 05/21/22 documented as of this encounter
--- OUTSIDE RECORDS SUMMARY | 2025-09-16 10:04 | XMS_ITS | Encounter Summary ---
Author Organization [employer] Address [address] [facility] 7t [place] [address] Care Team Providers Care Carbon Capture Power Plant Engineer Name Role Phone Violeta Boo MD Primary Care Provide r Reason for Visit * Reason Comments Med Refill Encounter Details Date Type Department Care Team ([facility] st Contact Info) Description 10/21/2024 Refill [facility] 230 [place], [place] [phone] Violeta Boo MD 230 [place], [place] [phone] Pain Social History Tobacco Use Types Packs/Day [...] documented as of this encounter Care Teams Carbon Capture Power Plant Engineer Relationship Specialty Start Date End Date Violeta Boo MD [address] [place] [address] PCP - General Family Medicine 05/21/22 documented as of this encounter
--- OUTSIDE RECORDS SUMMARY | 2025-09-16 10:04 | XMS_ITS | Encounter Summary ---
Author Organization [facility] Address [address] [place] [address] Phone Care Team Providers Care Horse Groomer Name Role Phone Violeta Boo MD Primary Care Provide r Encounter Details Date Type Department Care Team (Late Contact Info) Description 12/24/2022 Documentation Only [facility] [address] [place] [address] Jazmin Powell PA [address] [place] [address] [place] [address] Social History Tobacco Use Types [...] [facility] [address] [place] [address] Shailesh Vallejo MD [address] [facility] [place] [address] documented as of this encounter Visit Diagnoses Not on filedocumented in this encounter Care Teams Horse Groomer Relationship Specialty Start Date End Date Violeta Boo MD [address] [place] [phone] PCP - General Internal Medicine 03/21/23 documented as of this encounter
--- OUTSIDE RECORDS SUMMARY | 2025-09-16 10:04 | XMS_ITS | Encounter Summary ---
Author Organization [employer] Address [address] 7t [place] [address] Care Team Providers Care Public Services Librarian Name Role Phone Violeta Boo MD Primary Care Provide r Reason for Visit * Reason Onset Date Comments tb test 09/09/2025 Encounter Details Date Type Department Care Team ([facility] st Contact Info) Description 09/09/2025 Telephone [facility] MEDICINE 230 [place] [address] Violeta Boo MD 230 [place] [address] tb test Social History Tobacco Use Types Packs/Day Years [...] Telephone Encounter - Lorri Spence - 09/09/2025 11:11 AM EDT Tc from pt requesting a TB test for day program she goes too Contact pt at [phone] (montserratian) documented in this encounter Plan of Treatment Not on file documented as of this encounter Visit Diagnoses Not on filedocumented in this encounter Additional Health Concerns Assessment Noted Time PHQ-9 Depression Total Score: 17 024 11:23 AM EDT documented as of this encounter Care Teams Public Services Librarian Relationship Specialty Start Date End Date Violeta Boo MD [address] [place] [address] PCP - General Family Medicine 05/21/22 documented as of this encounter
--- OUTSIDE RECORDS SUMMARY | 2025-09-16 10:04 | XMS_ITS | Clinical Summary ---
Author Organization [facility], Address [address] [place] [address] [place] [address] Phone Care Team Providers Care Processor Helper Name Role Phone Violeta Boo MD [...] Resolved Date Gout 02/12/2020 06/15/2021 long term care pharmacist use of nonsteroida l antiinflammatories 02/12/2020 06/15/2021 [...] Visit [facility], [address] [place] [address] Shailesh Vallejo MD [address] [place] [address] [place] [address] Health Maintenance Due Date Last Done Comments [...] AM EST) Hemoglobin A1C 7.1(H) (4.0-5.6) % [facility] Comment: MONITORING: In known diabetic patients, hemoglobin A1c targets should be discussed with health care provider. DIAGNOSTIC USE: The [place] [employer] Association (ADA) and the World Health [...] Supplement 1 Testing performed or reported by [facility], a Service of [facility], [address] [place] [address] Yana Bales MD, Manager Document [facility]# [id number] Blood specimen (specimen) Venous blood / Unknown 10/20/2022 9:21 AM EST 10/20/2022 9:22 AM EST us Shailesh Vallejo MD LAB BLOOD ORDERABLES Final Resul t [facility] from Last 3 Months or Most Recently Relevant to Health Maintenance Insurance [facility] ([id number]) [place] [address] Care Teams Processor Helper Relationship Specialty Start Date End Date Violeta Boo MD [address] [place] [phone] PCP - General Internal Medicine 03/21/23
--- OUTSIDE RECORDS SUMMARY | 2025-09-16 10:04 | XMS_ITS | Encounter Summary ---
Author Organization [employer] Address [address] [facility] 7t [place] [address] Care Team Providers Care Pasteuriser Operator Name Role Phone Violeta Boo MD Primary Care Provide r Reason for Visit * Reason Comments Med Refill Encounter Details Date Type Department Care Team ([facility] st Contact Info) Description 11/18/2022 Refill [facility] MED & PEDS [address] [place], [place] [phone] Betsy Simmons CNM [address] [place] [address] Social History Tobacco Use Types Packs/Day Years [...] No answer, left V/M. Will retask to drifting nurses for second attempt * Telephone Encounter [...] on filedocumented in this encounter Care Teams Pasteuriser Operator Relationship Specialty Start Date End Date Violeta Boo MD [address] [place] [address] PCP - General Family Medicine 05/21/22 documented as of this encounter
--- OUTSIDE RECORDS SUMMARY | 2025-09-16 10:04 | XMS_ITS | Encounter Summary ---
Author Organization [employer] Address 75 [facility] 7t [place] [address] Care Team Providers Care Cribbing Setter Name Role Phone Violeta Boo MD Primary Care Provide r Reason for Visit * Reason Comments Med Refill Encounter Details Date Type Department Care Team ([facility] st Contact Info) Description 04/09/2025 Refill [facility] MEDICINE 230 [place], [place] [phone] Violeta Boo MD 230 [place], [place] [phone] Social History Tobacco Use Types Packs/Day Years [...] documented as of this encounter Care Teams Cribbing Setter Relationship Specialty Start Date End Date Violeta Boo MD [address] [place] [address] PCP - General Family Medicine 05/21/22 documented as of this encounter
--- OUTSIDE RECORDS SUMMARY | 2025-09-16 10:04 | XMS_ITS | Encounter Summary ---
Author Organization [facility] Address [address] [place] [address] Phone Care Team Providers Care Mammal Keeper Name Role Phone Violeta Boo MD Primary Care Provide r Encounter Details Date Type Department Care Team (Late Contact Info) Description 03/22/2023 Documentation Only [facility] [address] [place] [address] Jazmin Powell PA [address] [place] [address] [place] [address] Social History Tobacco Use Types [...] [facility] [address] [place] [address] Shailesh Vallejo MD [address] [place] [address] [place] [address] documented as of this encounter Visit Diagnoses Not on filedocumented in this encounter Care Teams Mammal Keeper Relationship Specialty Start Date End Date Violeta Boo MD [address] [place] [phone] PCP - General Internal Medicine 03/21/23 documented as of this encounter
--- OUTSIDE RECORDS SUMMARY | 2025-09-16 10:04 | XMS_ITS | Encounter Summary ---
Author Organization [facility], Address [address] [place] [address] Phone Care Team Providers Care Firesetter Name Role Phone Violeta Boo MD Primary Care Provide r Encounter Details Date Type Department Care Team (Late Contact Info) Description 08/27/2024 Documentation Only [facility] [address] [facility] [address] [place] [address] Rowena Knowles [address] [place] [phone] Social History Tobacco Use Types Packs/Day Years [...] Visit [facility], [address] [place] [address] Shailesh Vallejo MD [address] [place] [address] [place] [address] documented as of this encounter Visit Diagnoses Not on filedocumented in this encounter Care Teams Firesetter Relationship Specialty Start Date End Date Violeta Boo MD [address] [place] [phone] PCP - General Internal Medicine 03/21/23 documented as of this encounter
--- OUTSIDE RECORDS SUMMARY | 2025-09-16 10:05 | XMS_ITS | Encounter Summary ---
Author Organization [employer] Address [address] [facility] 7t [place] [address] Care Team Providers Care Vending Machine Filler Name Role Phone Violeta Boo MD Primary Care Provide r Reason for Visit * Reason Onset Date Comments Appointment Request 01/29/2025 Encounter Details Date Type Department Care Team ([facility] st Contact Info) Description 01/29/2025 Telephone [facility] MEDICINE 230 [place], [place] [phone] Violeta Boo MD 230 [place] [address] Appointment Request Social History Tobacco Use Types [...] on 02/01 and can't walk after surgery. [phone] khmer documented in this encounter Plan of Treatment Not on file documented as of this encounter Visit Diagnoses Not on filedocumented in this encounter Additional Health Concerns Assessment Noted Time PHQ-9 Depression Total Score: 17 024 11:23 AM EDT documented as of this encounter Care Teams Vending Machine Filler Relationship Specialty Start Date End Date Violeta Boo MD [address] [place] [address] PCP - General Family Medicine 05/21/22 documented as of this encounter
--- OUTSIDE RECORDS SUMMARY | 2025-09-16 10:05 | XMS_ITS | Encounter Summary ---
Author Organization [employer] Address [address] [facility] 7t [place] [address] Care Team Providers Care Field Placement Director Name Role Phone Violeta Boo MD Primary Care Provide r Reason for Visit * Reason Onset Date Comments Durable Medical Equipment 10/13/2023 Encounter Details Date Type Department Care Team ([facility] st Contact Info) Description 10/13/2023 Telephone [facility] MEDICINE 230 [place], [place] [phone] Violeta Boo MD 230 [place] [address] Durable Medical Equipment Social History Tobacco Use [...] : 2xl Pullups Ensures Flavors Vanilla and [place] Gloves Large Wipes Pt states insurance fax over request. Please contact pt at [phone] Ethiopian Speaker documented in this encounter Plan of Treatment Not on file documented as of this encounter Visit Diagnoses Not on filedocumented in this encounter Care Teams Field Placement Director Relationship Specialty Start Date End Date Violeta Boo MD [address] [place] [address] PCP - General Family Medicine 05/21/22 documented as of this encounter
--- OUTSIDE RECORDS SUMMARY | 2025-09-16 10:05 | XMS_ITS | Encounter Summary ---
Author Organization [employer] Address [address] [facility] 7t [place] [address] Care Team Providers Care Para Professional Name Role Phone Violeta Boo MD Primary Care Provide r Encounter Details Date Type Department Care Team (Late st Contact Info) Description 08/17/2023 Abstract [facility] MEDICINE 230 [place] [address] Violeta Boo MD 230 [place], [place] [phone] Social History Tobacco Use Types Packs/Day Years [...] on filedocumented in this encounter Care Teams Para Professional Relationship Specialty Start Date End Date Violeta Boo MD 230 [place], [place] [phone] PCP - General Family Medicine 05/21/22 documented as of this encounter
--- OUTSIDE RECORDS SUMMARY | 2025-09-16 10:05 | XMS_ITS | Encounter Summary ---
Author Organization [employer] Address [address] [facility] 7t [place] [address] Care Team Providers Care Brick Loader Name Role Phone Violeta Boo MD Primary Care Provide r Reason for Visit * Reason Onset Date Comments Reasonable Accommodation Request 10/25/2022 I called regarding a reasonable accommodation form, from [facility]. The pt states that she will be getting a scooter, because she is no longer able to use a cane or a walker. She is requesting an apartment with elevator accessibility, because it would be easier for her to get in and out of her apartment. Encounter Details Date Type Department Care Team (Late st Contact Info) Description 10/25/2022 Telephone [facility] MED & PEDS 505 [place], [place] [phone] [place], [place] Reasonable Accommodation Request (I called regarding a reasonable accommodation form, from [employer]. The pt states that she will be [...] on filedocumented in this encounter Care Teams Brick Loader Relationship Specialty Start Date End Date Violeta Boo MD 230 [place] [address] PCP - General Family Medicine 05/21/22 documented as of this encounter
--- OUTSIDE RECORDS SUMMARY | 2025-09-16 10:05 | XMS_ITS | Encounter Summary ---
Author Organization [facility], Address [address] [place] [address] Phone Care Team Providers Care Manufacturing Mechanic Name Role Phone Violeta Boo MD Primary Care Provide r Encounter Details Date Type Department Care Team (Late Contact Info) Description 05/05/2022 Documentation Only [facility] [address] [place] [address] Shailesh Vallejo MD [address] [place] [address] [place] [address] Social History Tobacco Use Types [...] [facility] [address] [place] [address] Shailesh Vallejo MD [address] [place] [address] [place] [address] documented as of this encounter Visit Diagnoses Not on filedocumented in this encounter Care Teams Manufacturing Mechanic Relationship Specialty Start Date End Date Violeta Boo MD [address] [place] [phone] PCP - General Internal Medicine 03/21/23 documented as of this encounter
--- OUTSIDE RECORDS SUMMARY | 2025-09-16 10:05 | XMS_ITS | Encounter Summary ---
Author Organization [facility] Address [address] [facility] 7t [place] [address] Care Team Providers Care Sheetrock Applicator Name Role Phone Violeta Boo MD Primary Care Provide r Encounter Details Date Type Department Care Team ([facility] st Contact Info) Description 08/03/2023 Orders Only [facility] MEDICINE 230 [place], [place] [phone] Provider, Libra, Social History Tobacco Use Types [...] on filedocumented in this encounter Care Teams Sheetrock Applicator Relationship Specialty Start Date End Date Violeta Boo MD 230 [place], [place] [phone] PCP - General Family Medicine 05/21/22 documented as of this encounter
--- OUTSIDE RECORDS SUMMARY | 2025-09-16 10:05 | XMS_ITS | Encounter Summary ---
Author Organization [employer] Address [address] [facility] 7t [place] [address] Care Team Providers Care Oceanology Teacher Name Role Phone Violeta Boo MD Primary Care Provide r Encounter Details Date Type Department Care Team ([facility] st Contact Info) Description 01/23/2025 Telephone [facility] [address] [place] [address] CadenAngella, OD [address] [place] [address] Social History Tobacco Use Types Packs/Day Years [...] documented as of this encounter Care Teams Oceanology Teacher Relationship Specialty Start Date End Date Violeta Boo MD [address] [place] [phone] PCP - General Family Medicine 05/21/22 documented as of this encounter
--- OUTSIDE RECORDS SUMMARY | 2025-09-16 10:05 | XMS_ITS | Encounter Summary ---
Author Organization [employer] Address [address] [place] [address] 7t [place] [address] Care Team Providers Care Regional Service Manager Name Role Phone Violeta Boo MD Primary Care Provide r Encounter Details Date Type Department Care Team (Latest Contact Info) Description 05/27/2022 Abstract [facility] CONVERSIONS Dental, Provider, DDS Social [...] on filedocumented in this encounter Care Teams Regional Service Manager Relationship Specialty Start Date End Date Violeta Boo MD [address] [place] [address] PCP - General Family Medicine 05/21/22 documented as of this encounter
--- OUTSIDE RECORDS SUMMARY | 2025-09-16 10:05 | XMS_ITS | Encounter Summary ---
Author Organization [employer] Address [address] [facility] 7t [place] [address] Care Team Providers Care Rn Transition Name Role Phone Violeta Boo MD Primary Care Provide r Reason for Visit * Reason Onset Date Comments Appointment Request 11/11/2023 Encounter Details Date Type Department Care Team ([facility] st Contact Info) Description 11/11/2023 Telephone [facility] MEDICINE 230 [place], [place] [phone] Violeta Boo MD 230 [place] [address] Appointment Request Social History Tobacco Use Types [...] on 11/16/23 due to being covid positive song writer did cancel appt documented in this encounter Plan of Treatment Not on file documented as of this encounter Visit Diagnoses Not on filedocumented in this encounter Care Teams Rn Transition Relationship Specialty Start Date End Date Violeta Boo MD [address] [place] [address] PCP - General Family Medicine 05/21/22 documented as of this encounter
--- OUTSIDE RECORDS SUMMARY | 2025-09-16 10:05 | XMS_ITS | Encounter Summary ---
Author Organization [employer] Address [address] [facility] 7t [place] [address] Care Team Providers Care Floating Derrick Operator Name Role Phone Violeta Boo MD Primary Care Provide r Encounter Details Date Type Department Care Team ([facility] st Contact Info) Description 05/22/2025 Orders Only [facility] MEDICINE 230 [place] [address] Violeta Boo MD 230 [place] [address] Social History Tobacco Use Types Packs/Day Years [...] documented as of this encounter Care Teams Floating Derrick Operator Relationship Specialty Start Date End Date Violeta Boo MD [address] [place] [address] PCP - General Family Medicine 05/21/22 documented as of this encounter
--- OUTSIDE RECORDS SUMMARY | 2025-09-16 10:05 | XMS_ITS | Encounter Summary ---
Author Organization [employer] Address [address] [facility] 7t [place] [address] Care Team Providers Care Conference Planner Name Role Phone Violeta Boo MD Primary Care Provide r Reason for Visit * Reason Onset Date Comments Appt cancelation 03/02/2024 Encounter Details Date Type Department Care Team ([facility] st Contact Info) Description 03/02/2024 Telephone [facility] MEDICINE 230 [place], [place] [phone] Violeta Boo MD 230 [place] [address] Appt cancelation Social History Tobacco Use Types [...] 04/27 due to being referred to outside donor specialist documented in this encounter Plan of Treatment Not on file documented as of this encounter Visit Diagnoses Not on filedocumented in this encounter Care Teams Conference Planner Relationship Specialty Start Date End Date Violeta Boo MD 230 [place] [address] PCP - General Family Medicine 05/21/22 documented as of this encounter
--- OUTSIDE RECORDS SUMMARY | 2025-09-16 10:05 | XMS_ITS | Encounter Summary ---
Author Organization [facility], Address [address] [place] [address] Phone Care Team Providers Care Proposal Coordinator Name Role Phone Violeta Boo MD Primary Care Provide r Encounter Details Date Type Department Care Team (Late Contact Info) Description 05/05/2022 Documentation Only [facility] [address] [place] [address] Shailesh Vallejo MD [address] [place] [address] [place] [address] Social History Tobacco Use Types [...] [facility] [address] [place] [address] Shailesh Vallejo MD [address] [place] [address] [place] [address] documented as of this encounter Visit Diagnoses Not on filedocumented in this encounter Care Teams Proposal Coordinator Relationship Specialty Start Date End Date Violeta Boo MD [address] [place] [phone] PCP - General Internal Medicine 03/21/23 documented as of this encounter
--- OUTSIDE RECORDS SUMMARY | 2025-09-16 10:05 | XMS_ITS | Encounter Summary ---
Author Organization [employer] Address 75 [facility] 7t [place] [address] Care Team Providers Care Public Health Representative Name Role Phone Violeta Boo MD Primary Care Provide r Encounter Details Date Type Department Care Team ([facility] st Contact Info) Description 11/10/2023 Abstract [facility] MEDICINE 230 [place] [address] Violeta Boo MD 230 [place], [place] [phone] Social History Tobacco Use Types Packs/Day Years [...] on filedocumented in this encounter Care Teams Public Health Representative Relationship Specialty Start Date End Date Violeta Boo MD [address] [place] [address] PCP - General Family Medicine 05/21/22 documented as of this encounter
--- OUTSIDE RECORDS SUMMARY | 2025-09-16 10:05 | XMS_ITS | Encounter Summary ---
Author Organization [employer] Address [address] [facility] 7t [place] [address] Care Team Providers Care Rock Cutter Name Role Phone Violeta Boo MD Primary Care Provide r Reason for Visit * Reason Comments Med Refill Encounter Details Date Type Department Care Team ([facility] st Contact Info) Description 03/22/[address] [facility] MEDICINE 230 [place], [place] [phone] Violeta Boo MD 230 [place], [place] [phone] Dermatitis Social History Tobacco Use Types Packs/Day [...] cause documented in this encounter Care Teams Rock Cutter Relationship Specialty Start Date End Date Violeta Boo MD [address] [place] [address] PCP - General Family Medicine 05/21/22 documented as of this encounter
== END 2025-09-16 09:40 | disposition home or self-care (01) ==
LOC: HO.HOS 09:06
PROVIDERS: Visit Provider Orthopaedic Surgery
DX: M17.0 Bilateral primary osteoarthritis of knee (principal)
CPT/HCPCS: 20610; 99213

== ENCOUNTER → 2025-09-16 09:05 | Outpatient (BNVA) | payer OTHER, SELFPAY | PROVIDERS: Visit Provider Orthopaedic Surgery | DX: M17.0 Bilateral primary osteoarthritis of knee (principal) | CPT/HCPCS: 20610; 99212; J0665; J1100; J2003 ==

== ENCOUNTER 2025-10-08 09:06 | Outpatient (AMB) | payer OTHER, SELFPAY ==
[2025-10-08 09:11] VITALS: BP 117/58; PULSE 70; RESP 16; O2SAT 95; BMI 47.1
--- NOTE | 2025-10-08 09:11 | A.OFFVIS_ITS ---
Vital Signs 10/08/25 09:11 10/08/25 10:23 Height 5 ft 3 in Weight 266 lb BMI 47.1 BP 117/58 L 147/73 H Blood Pressure Location Rt brachial Rt radial Position Sitting Sitting Respiration 16 16 Pulse 70 61 Pulse Source Pulse Oximeter Pulse Oximeter Pulse Oximetry (%) 95 94 Oxygen Delivery Method Room Air Room Air Intake Visit Reasons: BILATERAL DIAGNOSTIC L2-L3-L4 MBB Allergies peanut (PEANUT) Allergy (Severe, Verified 07/17/25 10:28) ITCHY, SWELLING seafood Allergy (Severe, Verified 07/17/25 10:28) Rash tomato (TOMATO) Allergy (Severe, Verified 07/17/25 10:28) ITCHY, SWELLING aspirin (ASA) Allergy (Intermediate, Verified 07/17/25 10:28) ITCHY,ANXIOUS, itching, rash Iodinated Contrast Media (IV CONTRAST) Allergy (Intermediate, Verified 07/17/25 10:28) HIVES plantain (PLANTAIN) Allergy (Intermediate, Verified 07/17/25 10:28) ITCHY/SWELLING PFSH Medical History Myocardial infarct Pain in left shoulder Screening for viral disease COPD (chronic obstructive pulmonary disease) Restrictive lung disease Allergic rhinitis ZOEY (obstructive sleep apnea) Edema PVD (peripheral vascular disease) On beta prashant at home Osteopenia Gout Osteoarthritis Rheumatoid arthritis Anemia Panic attacks Anxiety Schizophrenia Pre-diabetes CKD (chronic kidney disease), stage III GERD (gastroesophageal reflux disease) Fatty liver Myocardial infarction CAD (coronary artery disease) Angina pectoris HTN (hypertension) Morbid obesity ZOEY treated with BiPAP COPD (chronic obstructive pulmonary disease) Allergic rhinitis Surgical History History of colonoscopy (~2021) History of lumpectomy of right breast (06/21/22) History of bladder suspension procedure History of esophagogastroduodenoscopy (EGD) Hx of colonoscopy History of hysterectomy History of tubal ligation History of lumpectomy of right breast Family History Mother Leukemia Brother Colon cancer Brother Leukemia Sister Breast cancer Sister Vaginal cancer Sister Breast cancer Sister Breast cancer Daughter Thyroid disease Social History Alcohol intake: never Patient Tobacco Use Status: Never used Tobacco Second Hand Smoke Exposure: No Female Reproductive History Menstrual Age of Menarche: 13 Physical Exam Vital Signs: Last Vital Signs Pulse 61 10/08/25 10:23 Resp 16 10/08/25 10:23 BP 147/73 H 10/08/25 10:23 Pulse Ox 94 10/08/25 10:23 Oxygen Delivery Method Room Air 10/08/25 10:23 BMI result Body Mass Index 47.1 Assessment & Plan Assessment & Plan (1) Spondylosis of lumbar spine: Code(s): M47.816 - Spondylosis without myelopathy or radiculopathy, lumbar region Category: Medical Plan Diagnostic medial branch block L2-L3- L4 bilateral.? ? ?Informed consent was explained to the patient. All questions were explained and? answered.? The patient was taken inside the operating room where she was positioned prone on the operating table. Time-out was performed delineating correct site, side, the nature of the procedure, patient's allergy, . All operating room staff was participating in OR time-out procedure. ? ? The lower back was prepped with ChloraPrep and draped with sterile towels.? C- arm was brought over the operating field and sq picture of L3-L4 and L5 vertebras were delineated on the screen.? Point of interest were delineated as confluence of superior articular process of L3-L4 and L 5 vertebra bilaterally with corresponding transverse processes.? The projection of the point of interest to the skin were injected with the small amount of local anesthetic lidocaine 2% mixed with ropivacaine 0.5% 1-1 approcimately 1 cc.? After that 22 gauge 5 inch spinal needle was driven sequentially to the points of interest in tunnel vision fashion. After needles gently contacted the bone at the point of interests the needle was injected with small amount of the contrast.? The injection of the contrast did not demonstrate any intravascular or intrathecal spread of the contrast.? After that injection of the? ropivacaine 0.5%-1cc was p erformed at each needle location. ?after that the needles were removed and Bandaids were applied. ? Upon completion of the injections? needle was? removed and sterile Band-Aids were applied.? The patient tolerated procedure very well. Orders: Orders FL guidance in treatment room 10/08/25 M47.816 - Spondylosis without myelopathy or radiculopathy, lumbar region Coding Level of Care Code Procedure Only Diagnoses Spondylosis of lumbar spine M47.816
--- OUTSIDE RECORDS SUMMARY | 2025-10-08 09:55 | XMS_ITS | Encounter Summary ---
Author Organization [facility], Address [address] [place] [address] Phone Care Team Providers Care Truck And Transport Mechanic Name Role Phone Violeta Boo MD Primary Care Provide r Encounter Details Date Type Department Care Team (Late Contact Info) Description 08/27/2024 Documentation Only [facility] [address] [facility] [address] [place] [address] Rowena Knowles [address] [place] [phone] Social History Tobacco Use Types Packs/Day Years [...] Visit [facility], [address] [place] [address] Shailesh Vallejo MD [address] [place] [address] [place] [address] documented as of this encounter Visit Diagnoses Not on filedocumented in this encounter Care Teams Truck And Transport Mechanic Relationship Specialty Start Date End Date Violeta Boo MD [address] [place] [phone] PCP - General Internal Medicine 03/21/23 documented as of this encounter
--- OUTSIDE RECORDS SUMMARY | 2025-10-08 09:55 | XMS_ITS | Encounter Summary ---
Author Organization [facility] Address [address] [place] [address] Phone Care Team Providers Care Patch Washer Name Role Phone Violeta Boo MD Primary Care Provide r Encounter Details Date Type Department Care Team (Late Contact Info) Description 03/22/2023 Documentation Only [facility] [address] [place] [address] Jazmin Powell PA [address] [place] [address] [place] [address] Social History Tobacco Use Types [...] [facility] [address] [place] [address] Shailesh Vallejo MD [address] [place] [address] [place] [address] documented as of this encounter Visit Diagnoses Not on filedocumented in this encounter Care Teams Patch Washer Relationship Specialty Start Date End Date Violeta Boo MD [address] [place] [phone] PCP - General Internal Medicine 03/21/23 documented as of this encounter
--- OUTSIDE RECORDS SUMMARY | 2025-10-08 09:55 | XMS_ITS | Encounter Summary ---
Author Organization [facility], Address [address] [place] [address] Phone Care Team Providers Care Profile Shaper Operator Name Role Phone Violeta Boo MD Primary Care Provide r Encounter Details Date Type Department Care Team (Late Contact Info) Description 02/13/2024 Documentation Only [facility] [address] [place] [address] Rowena Knowles [address] [place] [phone] Social History Tobacco Use Types Packs/Day Years [...] Visit [facility] [address] [place] [address] Shailesh Vallejo MD [address] [place] [address] [place] [address] documented as of this encounter Visit Diagnoses Not on filedocumented in this encounter Care Teams Profile Shaper Operator Relationship Specialty Start Date End Date Violeta Boo MD [address] [place] [phone] PCP - General Internal Medicine 03/21/23 documented as of this encounter
--- OUTSIDE RECORDS SUMMARY | 2025-10-08 09:55 | XMS_ITS | Clinical Summary ---
Author Organization [facility], Address [address] [place] [address] [place] [address] Phone Care Team Providers Care Chamfering Machine Operator Name Role Phone Violeta Boo [...] Diagnosed Date Resolved Date Gout 02/12/2020 06/15/2021 snf use of nonsteroida l antiinflammatories 02/12/2020 06/15/2021 [...] Visit [facility] [place], [address] [place] [address] Shailesh Vallejo MD [address] [place] [address] [place] [address] Health Maintenance Due Date Last Done Comments [...] AM EST) Hemoglobin A1C 7.1(H) (4.0-5.6) % [facility] Comment: MONITORING: In known diabetic patients, hemoglobin A1c targets should be discussed with health care provider. DIAGNOSTIC USE: The [place] [employer] (ADA) and the World Health [...] Supplement 1 Testing performed or reported by [facility], a Service of [facility], [address] [place] [id number] Yana Bales MD, Saw Handle Assembler [facility]# [id number] Blood specimen (specimen) Venous blood / Unknown 10/20/2022 9:21 AM EST 10/20/2022 9:22 AM EST us Shailesh Vallejo MD LAB BLOOD ORDERABLES Final Resul t [facility] from Last 3 Months or Most Recently Relevant to Health Maintenance Insurance [facility] ([id number]) Care Teams Chamfering Machine Operator Relationship Specialty Start Date End Date Violeta Boo MD [address] [place] [phone] PCP - General Internal Medicine 03/21/23
--- OUTSIDE RECORDS SUMMARY | 2025-10-08 09:55 | XMS_ITS | Encounter Summary ---
Author Organization [facility] Address [address] [place] [address] Phone Care Team Providers Care Grinder Carbon Plant Name Role Phone Violeta Boo MD Primary Care Provide r Encounter Details Date Type Department Care Team (Late Contact Info) Description 12/24/2022 Documentation Only [facility] [address] [place] [address] Jazmin Powell PA [address] [place] [address] [place] [address] Social History Tobacco Use Types [...] [facility] [address] [place] [address] Shailesh Vallejo MD [address] [facility] [place] [address] documented as of this encounter Visit Diagnoses Not on filedocumented in this encounter Care Teams Grinder Carbon Plant Relationship Specialty Start Date End Date Violeta Boo MD [address] [place] [phone] PCP - General Internal Medicine 03/21/23 documented as of this encounter
--- OUTSIDE RECORDS SUMMARY | 2025-10-08 09:55 | XMS_ITS | Encounter Summary ---
Author Organization [facility], Address [address] [place] [address] Phone Care Team Providers Care Density Control Puncher Name Role Phone Violeta Boo MD Primary Care Provide r Encounter Details Date Type Department Care Team (Late Contact Info) Description 03/15/2022 Documentation Only [facility] [address] [place] [address] Shailesh Vallejo MD [address] [place] [address] [place] [address] Social History Tobacco Use Types [...] [facility] [address] [place] [address] Shailesh Vallejo MD [address] [place] [address] [place] [address] documented as of this encounter Visit Diagnoses Not on filedocumented in this encounter Care Teams Density Control Puncher Relationship Specialty Start Date End Date Violeta Boo MD [address] [place] [phone] PCP - General Internal Medicine 03/21/23 documented as of this encounter
--- OUTSIDE RECORDS SUMMARY | 2025-10-08 09:55 | XMS_ITS | Encounter Summary ---
Author Organization [facility] Address [address] [place] [address] Phone Care Team Providers Care On Site Nurse Name Role Phone Violeta Boo MD Primary Care Provide r Encounter Details Date Type Department Care Team (Late Contact Info) Description 10/22/2022 Documentation Only [facility] [address] [place] [address] Jazmin Powell PA [address] [place] [address] [place] [address] Social History Tobacco Use Types [...] [facility] [address] [place] [address] Shailesh Vallejo MD [address] [facility] [place] [address] documented as of this encounter Visit Diagnoses Not on filedocumented in this encounter Care Teams On Site Nurse Relationship Specialty Start Date End Date Violeta Boo MD [address] [place] [phone] PCP - General Internal Medicine 03/21/23 documented as of this encounter
--- OUTSIDE RECORDS SUMMARY | 2025-10-08 09:55 | XMS_ITS | Encounter Summary ---
Author Organization [facility] [place], Address [address] [place] [address] Phone Care Team Providers Care Vise Hand Name Role Phone Violeta Boo MD Primary Care Provide r Encounter Details Date Type Department Care Team (Late Contact Info) Description 03/20/2025 Documentation Only [facility] [address] [place] [address] Rowena Knowles [address] [place] [phone] Social History Tobacco Use Types Packs/Day Years [...] [facility] [address] [place] [address] Shailesh Vallejo MD [address] [place] [address] [place] [address] documented as of this encounter Visit Diagnoses Not on filedocumented in this encounter Care Teams Vise Hand Relationship Specialty Start Date End Date Violeta Boo MD [address] [place] [phone] PCP - General Internal Medicine 03/21/23 documented as of this encounter
--- OUTSIDE RECORDS SUMMARY | 2025-10-08 09:55 | XMS_ITS | Encounter Summary ---
Author Organization [facility] [place], Address [address] [place] [address] Phone Care Team Providers Care Insurance Underwriter Sales Name Role Phone Violeta Boo MD Primary Care Provide r Encounter Details Date Type Department Care Team (Late Contact Info) Description 05/05/2022 Documentation Only [facility] [address] [place] [address] Shailesh Vallejo MD [address] [place] [address] [place] [address] Social History Tobacco Use Types [...] [facility] [address] [place] [address] Shailesh Vallejo MD [address] [place] [address] [place] [address] documented as of this encounter Visit Diagnoses Not on filedocumented in this encounter Care Teams Insurance Underwriter Sales Relationship Specialty Start Date End Date Violeta Boo MD [address] [place] [phone] PCP - General Internal Medicine 03/21/23 documented as of this encounter
--- OUTSIDE RECORDS SUMMARY | 2025-10-08 09:55 | XMS_ITS | Encounter Summary ---
Author Organization [facility] [place], Address [address] [place] [address] Phone Care Team Providers Care Felt Coverer Name Role Phone Violeta Boo MD Primary Care Provide r Encounter Details Date Type Department Care Team (Late Contact Info) Description 05/05/2022 Documentation Only [facility] [address] [place] [address] Shailesh Vallejo MD [address] [place] [address] [place] [address] Social History Tobacco Use [...] Visit [facility] [address] [place] [address] Shailesh Vallejo MD [address] [place] [address] [place] [address] documented as of this encounter Visit Diagnoses Not on filedocumented in this encounter Care Teams Felt Coverer Relationship Specialty Start Date End Date Violeta Boo MD [address] [place] [phone] PCP - General Internal Medicine 03/21/23 documented as of this encounter
[2025-10-08 10:23] VITALS: BP 147/73; PULSE 61; RESP 16; O2SAT 94
== END 2025-10-08 10:23 | disposition home or self-care (01) ==
LOC: HO.PMCPRC 09:06
PROVIDERS: PCP Internal Medicine; Visit Provider Anesthesiology
DX: M47.816 Spondylosis without myelopathy or radiculopathy, lumbar region (principal)
CPT/HCPCS: 64493; 64494

== ENCOUNTER 2025-10-28 11:30 | Outpatient (REF) | payer OTHER, SELFPAY ==
--- NOTE | ~2025-10-28 | XR_ITS ---
EXAMINATION: XR CHEST CLINICAL INFORMATION: latent TB COMPARISON: May 04, 2024 TECHNIQUE: PA and lateral views. FINDINGS: No gross consolidation, pleural effusion or pneumothorax. Subsegmental atelectasis versus scarring, left lower hemithorax. Cardiomediastinal silhouette size is normal. Calcified plaque thoracic aorta. Multilevel thoracic spondylosis. S-shaped curvature of the thoracic spine. Patient's large body habitus/obesity.. XR/XR chest 2V IMPRESSION: No acute airspace disease. Electronically signed by: Santiago Rodriguez MD 10/28/2025 12:57 PM EST RP
--- NOTE | ~2025-10-28 | XR_ITS ---
EXAMINATION: X-ray bilateral shoulders CLINICAL INFORMATION: Pain COMPARISON: X-rays 05/21/2025 TECHNIQUE: Bilateral shoulders each 2 views FINDINGS: Left shoulder: No acute fracture, dislocation or suspicious bony lesion is identified Mild glenohumeral arthritis. Minimal acromioclavicular arthritis. No significant soft tissue swelling. No abnormal soft tissue calcification. Right shoulder: No acute fracture, dislocation or suspicious bony lesion is identified Minimal acromioclavicular arthritis. Glenohumeral joint space is maintained.. No significant soft tissue swelling. No abnormal soft tissue calcification. XR/XR Shoulder Pablo min 2V IMPRESSION: No acute findings. Mild left glenohumeral arthritis. Minimal bilateral acromioclavicular arthritis. Electronically signed by: Marco A Rankin MD 10/28/2025 12:57 PM NATA
== END 2025-10-28 11:31 | disposition home or self-care (01) ==
LOC: HO.HHCX 11:30
PROVIDERS: PCP Internal Medicine; Visit Provider Internal Medicine
DX: M25.511 Pain in right shoulder (principal); M25.512 Pain in left shoulder; Z22.7 Latent tuberculosis
CPT/HCPCS: 71046; 73030

== ENCOUNTER → 2025-10-28 12:00 | Outpatient (BNV) | payer OTHER, SELFPAY | PROVIDERS: PCP Internal Medicine; Visit Provider Radiology Diagnostic Radiology | DX: Z22.7 Latent tuberculosis (principal); M19.011 Primary osteoarthritis, right shoulder; M19.012 Primary osteoarthritis, left shoulder | CPT/HCPCS: 71046; 73030 ==

== ENCOUNTER 2025-10-31 08:44 | Outpatient (AMB) | payer OTHER, SELFPAY ==
--- OUTSIDE RECORDS SUMMARY | 2025-05-15 10:30 | XMS_ITS | Encounter Summary ---
Author Organization [employer] Address [address] [place] [address] Care Team Providers Care Arabic Translator Name Role Phone Violeta Boo MD Primary Care Provide r Reason for Referral * Medications - Closed Specialty Diagnoses / Procedures Referred By Alex cruz Referred To Contact Diagnoses Psoriatic arthritis (CMS/HCC) ([facility]) Violeta Boo MD [address] [place] [address] Phone: tel: fax: Referral ID Status Reason Start Date Expiration Date Visits Re quested Visits Authorized [id number] Closed 1 1 Encounter Details Date Type Department Care Team (Late st Contact Info) Description 05/15/2025 11:30 AM EDT Office Visit [facility] [address] [place], [place] [phone] Violeta Boo MD [address], [place] [phone] Essential hypertension (Primary Dx); Prediabetes; Psoriatic arthritis (CMS/HCC); Psychosis, unspecified psychosis type (CMS/HCC); Morbid obesity (CMS/HCC); Spondylosis of lumbar region without myelopathy or radiculopathy; Seasonal allergies; Acute pain of both shoulders; Bilateral hand pain; Pain of toe of left foot Social History Tobacco Use Types Packs/Day Years [...] AM EDT documented as of this encounter Last Filed Vital Signs Vital Sign Reading Time Taken Comments Blood Pressure 138/89 05/15/2025 11:56 AM EDT Pulse 77 05/15/2025 11:34 AM EDT Temperature 36.5 C (97.7 F) 05/15/2025 11:34 AM EDT Respiratory Rate 20 05/15/2025 11:34 AM EDT Oxygen Saturation 95% 05/15/2025 11:34 AM EDT Inhaled Oxygen Concentration - - Weight 125 kg (276 lb 3.2 oz) 05/15/2025 11:34 A M EDT Height 160 cm (5' 3 ) 05/15/2025 11:34 AM EDT Body Mass Index 48.93 05/15/2025 11:34 AM EDT documented in this encounter Progress Notes * Violeta Pascual MD - 05/15/2025 11:30 AM EDT SUBJECTIVE: Violeta Monterroso is a 75 y.o. year old female who presents for comprehensive Concerns for today's visit: Occupation:retired Lives with:alone Social Hx: denies drinking EtOH, denies smoking cigarettes and denies recreational drug use. Diet:regular Exercise:sedentary Colonoscopy:schedule for 07/01/25 DEXA Scan: up to date diagnosed with osteopenia Hospitalizations/Surgeries: bladder surgery, hysterectomy Eye Care:she has an appointment 06/07/25 Dental Care:up to date PMHx:on chart Immunizations: Reviewed Acute Concerns: Patient's weight has remain stable, she has not being able to lose more weight Patient reports on 05/10/25 she stand up from the toilet and got dizzy and fell, she hit her head shoulder and hands, she also hurt her toe of her left foot she did not seek medical attention when ithappened, reports she has pain in this places but otherwise she went back to her baseline Patient reports persistent lower back pain and bilateral leg pain she has her history of this beinga chronic problem she is being followed by pain management, she tells me she struggles at home because she needs to lie down for a prolonged time and when she tries to stand up is difficult for her Social History Social History Narrative Not on file Problem List[1] Bulging lumbar disc Calcification of breast Chronic gouty arthritis Chronic kidney disease Essential hypertension Generalized osteoarthritis Hyperlipidemia Low back pain Moderate persistent asthma Mood disorder (CMS/HCC) Morbid obesity (CMS/HCC) Non-cardiac chest pain Osteopenia determined by x-ray Inflammatory dermatosis Psoriasis Seasonal allergies Stage 3b chronic kidney disease (CMS/HCC) Unintended awareness under general anesthesia during procedure Vertigo Seborrheic dermatitis Otitis externa Chronic bilateral low back pain with bilateral sciatica Onychomycosis Hemorrhoids, complicated Chronic diarrhea Intertrigo Family hx of colon cancer requiring screening colonoscopy Family history of cancer Prediabetes Dermatitis Unstable gait Pelvic pain Vaginal pain Rectal pain Hearing deficit, bilateral ZOEY (obstructive sleep apnea) Encounter for screening mammogram for malignant neoplasm of breast Psoriatic arthritis (CMS/HCC) Psychosis, unspecified psychosis type (CMS/HCC) Spondylosis of lumbar region without myelopathy or radiculopathy Acute pain of both shoulders Bilateral hand pain Pain of toe of left foot Family History[2] Review of Systems Constitutional: Negative. HENT: Negative. Respiratory: Negative. Cardiovascular: Negative. Musculoskeletal: Positive for arthralgias, back pain and myalgias. OBJECTIVE: Vitals: 05/15/25 1134 05/15/25 1156 BP: (!) 142/84 138/89 BP Location: Left arm Left arm Patient Position: Sitting Sitting BP Cuff Size: Large adult Large adult Pulse: 77 Resp: 20 Temp: 97.7 ??F (36.5 ??C) TempSrc: Oral SpO2: 95% Weight: 276 lb 3.2 oz (125 kg) Height: 5' 3 (1.6 m) Physical Exam Constitutional: Appearance: Normal appearance. Cardiovascular: Rate and Rhythm: Normal rate and regular rhythm. Pulmonary: Effort: Pulmonary effort is normal. Breath sounds: Normal breath sounds. Abdominal: General: Abdomen is flat. Palpations: Abdomen is soft. Musculoskeletal: Lumbar back: Spasms and tenderness present. Right lower leg: No edema. Left lower leg: No edema. Skin: Comments: Light green noticed on forehead, superficial scratch on knees Neurological: Mental Status: She is alert. Follow Up: No follow-ups on file. Medications Ordered Prior to Encounter[3] Problem List Items Addressed This Visit Prediabetes Extensive counseling about healthy diet and exercise on today I will went up on her Ozempic to 2 mg weekly Relevant Medications Semaglutide, 2 MG/DOSE, (Ozempic, 2 MG/DOSE,) 8 MG/3ML solution pen-injector Other Relevant Orders POCT Glucose (Completed) POCT HGB A1C (Completed) Essential hypertension - Primary I advised: - Aerobic exercise to reduce BP. Initial goal of 30 min walk 3-5x/week. Increase as tolerated. - low-sodium diet (goal: <2g/day) and heart healthy diet such as DASH to reduce BP and prevent ASCVD. - Home BP monitoring 1-2 x day with goal of <140/90. - Seek immediate medical attention for chest pain, palpitations, SOB, syncope, or sudden changes inmental status. - Do not change or discontinue current prescriptions without first consulting health care provider Relevant Orders CBC auto differential Comprehensive Metabolic Panel HIV-1/2 Antigen and Antibodies, Fourth Generation, with Reflexes Hepatitis C Antibody with Reflex to HCV, RNA, Quantitative, Real-Time PCR Lipid Panel, Standard Vitamin D, 25-Hydroxy, Total, Immunoassay TSH with Reflex to Free T4 Psoriatic arthritis ([facility]/HCC) I will prescribe her patient her recliner to help her with her daily life and activities Relevant Medications cholecalciferol (Vitamin D-3) 25 MCG (1000 UT) tablet RSV Pre-Fusion F A&B Vac Rcmb (Abrysvo) 120 MCG/0.5ML reconstituted solution Psychosis, unspecified psychosis type (CMS/HCC) Stable continue with same interventions Morbid obesity ([facility]) Counseling about healthy diet and exercise done today I will go up on her Ozempic to 2 mg weekly Relevant Medications Semaglutide, 2 MG/DOSE, (Ozempic, 2 MG/DOSE,) 8 MG/3ML solution pen-injector cholecalciferol (Vitamin D-3) 25 MCG (1000 UT) tablet Spondylosis of lumbar region without myelopathy or radiculopathy Continue to follow-up with pain management I will prescribe for patient a recliner to help her with her daily life and activities Seasonal allergies Relevant Medications diphenhydrAMINE (BENADryl) 25 MG capsule Acute pain of both shoulders X-rays ordered patient will be contacted with results Relevant Medications cholecalciferol (Vitamin D-3) 25 MCG (1000 UT) tablet Other Relevant Orders XR Shoulder 2+ Views Right XR Shoulder 2+ Views Left Bilateral hand pain X-ray ordered, patient will be contacted with results Relevant Medications cholecalciferol (Vitamin D-3) 25 MCG (1000 UT) tablet Other Relevant Orders XR Hand 3+ Views Left XR Hand 3+ Views Right Pain of toe of left foot Relevant Medications cholecalciferol (Vitamin D-3) 25 MCG (1000 UT) tablet Other Relevant Orders XR Foot 3+ Views Left [1] Patient Active Problem List Diagnosis Bulging lumbar disc Calcification of breast Chronic gouty arthritis Chronic kidney disease Essential hypertension Generalized osteoarthritis Hyperlipidemia Low back pain Moderate persistent asthma Mood disorder (CMS/HCC) Morbid obesity ([facility]/HCC) Non-cardiac chest pain Osteopenia determined by x-ray Inflammatory dermatosis Psoriasis Seasonal allergies Stage 3b chronic kidney disease (CMS/HCC) Unintended awareness under general anesthesia during procedure Vertigo Seborrheic dermatitis Otitis externa Chronic bilateral low back pain with bilateral sciatica Onychomycosis Hemorrhoids, complicated Chronic diarrhea Intertrigo Family hx of colon cancer requiring screening colonoscopy Family history of cancer Prediabetes Dermatitis Unstable gait Pelvic pain Vaginal pain Rectal pain Hearing deficit, bilateral ZOEY (obstructive sleep apnea) Encounter for screening mammogram for malignant neoplasm of breast Psoriatic arthritis (CMS/HCC) Psychosis, unspecified psychosis type (CMS/HCC) Spondylosis of lumbar region without myelopathy or radiculopathy Acute pain of both shoulders Bilateral hand pain Pain of toe of left foot [2] Family History Problem Relation Name Age of Onset Breast cancer Sister 40 two sisters with breast cancer in their 40s. [3] Current Outpatient Medications on File Prior to Visit Medication Sig Dispense Refill Acetaminophen Extra Strength 500 MG tablet TAKE 2 TABLETS BY MOUTH EVERY 8 HOURS NEEDED 60 tablet 1 albuterol (2.5 MG/3ML) 0.083% nebulizer solution INHALE 1 AMPULE USING A NEBULIZER THREE TIMES DAILY 90 mL 3 albuterol (ProAir HFA) 108 (90 Base) MCG/ACT inhaler Inhale every 6 (six) hours. allopurinol (Zyloprim) 300 MG tablet Take 300 mg by mouth in the morning. atorvastatin (Lipitor) 80 MG tablet TAKE 1 TABLET BY MOUTH EVERY MORNING 30 tablet 11 Blood Glucose Monitoring Suppl ([employer] Verio Flex System) w/Device kit USE DIRECTED TO TEST BLOOD SUGAR TWICE DAILY Calcium Carb-Cholecalciferol 600-10 MG-MCG tablet TAKE 1 TABLET BY MOUTH TWICE DAILY IN THE MORNINGAND IN THE EVENING 60 tablet 11 chlorthalidone (Hygroton) 25 MG tablet TAKE 1 TABLET BY MOUTH EVERY MORNING 90 tablet 1 clotrimazole-betamethasone (Lotrisone) cream APPLY TOPICALLY TO AFFECTED AREA(S) TWICE DAILY 30 g 1 colchicine 0.6 MG tablet Take 0.6 mg by mouth every other day. Cyanocobalamin (Vitamin B-12) 1000 MCG sublingual tablet DISSOLVE 1 TABLET UNDER THE TONGUE EVERY DAY doxepin (SINEquan) 25 MG capsule TAKE 1 CAPSULE BY MOUTH AT BEDTIME 90 capsule 1 ezetimibe (Zetia) 10 MG tablet Take 10 mg by mouth in the morning. Ferrous Sulfate (iron) 325 (65 Fe) MG tablet TAKE 1 TABLET BY MOUTH EVERY MORNING 30 tablet 11 fexofenadine (Lelia) 180 MG tablet TAKE 1 TABLET BY MOUTH EVERY MORNING 30 tablet 11 fexofenadine (Lelia) 180 MG tablet TAKE 1 TABLET BY MOUTH EVERY MORNING fluticasone (Flonase Allergy Relief) 50 MCG/ACT nasal spray Administer 2 sprays into affected nostril(s) 1 (one) time each day. Fluticasone-Salmeterol (Advair Diskus) 250-50 MCG/ACT aerosol powder Inhale 1 puff every 12 (twelve) hours. gabapentin (Neurontin) 300 MG capsule Take 1 capsule by mouth twice daily in the morning and in theevening 60 capsule 1 hydrocortisone (Anusol-HC) 2.5 % rectal cream Apply topically every 12 (twelve) hours. hydrocortisone (Anusol-HC) 2.5 % rectal cream Insert into the rectum 2 times daily. 28 g 2 hydroxychloroquine (Plaquenil) 200 MG tablet Take 200 mg by mouth 2 times daily. lidocaine (Lidoderm) 5 % patch Place 1 patch on the skin in the morning. losartan (Cozaar) 100 MG tablet Take 1 tablet by mouth 1 (one) time each day. meclizine (Antivert) 25 MG tablet Take 1 tablet by mouth every 8 (eight) hours. melatonin tablet Take 1 mg by mouth if needed at bedtime for sleep. metoprolol succinate XL (Toprol-XL) 50 MG 24 hr tablet TAKE 1 TABLET BY MOUTH EVERY MORNING 90 tablet 1 montelukast (Singulair) 10 MG tablet TAKE 1 TABLET BY MOUTH EVERY EVENING 30 tablet 11 OLANZapine (ZyPREXA) 15 MG tablet Take 1 tablet by mouth 1 (one) time each day. OneTouch Ultra test strip TEST BLOOD SUGAR ONCE DAILY 50 strip 11 Ozempic, 0.25 or 0.5 MG/DOSE, 2 MG/3ML solution pen-injector INJECT 0.5 MG SUBCUTANEOUSLY EVERY 7 DAYS IN THE ABDOMEN, THIGHS, OR UPPER ARM, ROTATE INJECTION SITES. 3 mL 2 pantoprazole (ProtoNix) 40 MG EC tablet TAKE 1 TABLET BY MOUTH EVERY MORNING 30 tablet 11 permethrin (Elimite) 5 % cream apply to skin from hairline to toes and wash off 8-10 hours later 60g 1 semaglutide (Ozempic) 2 MG/1.5ML solution pen-injector Inject 1 mg under the skin 1 (one) time per week. 2 each 1 sertraline (Zoloft) 100 MG tablet Take 100 mg by mouth in the morning. sertraline (Zoloft) 50 MG tablet Take 50 mg by mouth in the morning. Simethicone Ultra Strength 180 MG capsule TAKE 1 CAPSULE BY MOUTH EVERY 8 HOURS WITH FOOD NEEDEDFOR GAS 90 capsule 2 triamcinolone (Kenalog) 0.1 % cream Apply topically if needed in the morning and at bedtime (pain and swelling). 30 g 2 [DISCONTINUED] doxepin (SINEquan) 25 MG capsule TAKE 1 CAPSULE BY MOUTH AT BEDTIME 90 capsule 1 [DISCONTINUED] metoprolol succinate XL (Toprol-XL) 50 MG 24 hr tablet TAKE 1 TABLET BY MOUTH EVERY MORNING [DISCONTINUED] metoprolol succinate XL (Toprol-XL) 50 MG 24 hr tablet TAKE 1 TABLET BY MOUTH EVERY MORNING 90 tablet 3 No current facility-administered medications on file prior to visit. documented in this encounter Miscellaneous Notes * Assessment & Plan Note - Violeta Pascual MD - 05/15/2025 4:08 PM EDT Associated Problem(s): Psoriatic arthritis (CMS/HCC) (HCC) I will prescribe her patient her recliner to help her with her daily life and activities * Assessment & Plan Note - Violeta Pascual MD - 05/15/2025 4:08 PM EDT Associated Problem(s): Spondylosis of lumbar region without myelopathy or radiculopathy Continue to follow-up with pain management I will prescribe for patient a recliner to help her with her daily life and activities * Assessment & Plan Note - Violeta Pascual MD - 05/15/2025 4:07 PM EDT Associated Problem(s): Bilateral hand pain X-ray ordered, patient will be contacted with results * Assessment & Plan Note - Violeta Pascual MD - 05/15/2025 4:07 PM EDT Associated Problem(s): Acute pain of both shoulders X-rays ordered patient will be contacted with results * Assessment & Plan Note - Violeta Pascual MD - 05/15/2025 4:07 PM EDT Associated Problem(s): Psychosis, unspecified psychosis type (CMS/HCC) (HCC) Stable continue with same interventions * Assessment & Plan Note - Violeta Pascual MD - 05/15/2025 4:06 PM EDT Associated Problem(s): Prediabetes Extensive counseling about healthy diet and exercise on today I will went up on her Ozempic to 2 mg weekly * Assessment & Plan Note - Violeta Pascual MD - 05/15/2025 4:06 PM EDT Associated Problem(s): Morbid obesity (CMS/HCC) (HCC) Counseling about healthy diet and exercise done today I will go up on her Ozempic to 2 mg weekly * Assessment & Plan Note - Violeta Pascual MD - 05/15/2025 4:06 PM EDT Associated Problem(s): Essential hypertension I advised: - Aerobic exercise to reduce BP. Initial goal of 30 min walk 3-5x/week. Increase as tolerated. - low-sodium diet (goal: <2g/day) and heart healthy diet such as DASH to reduce BP and prevent ASCVD. - Home BP monitoring 1-2 x day with goal of <140/90. - Seek immediate medical attention for chest pain, palpitations, SOB, syncope, or sudden changes inmental status. - Do not change or discontinue current prescriptions without first consulting health care provider documented in this encounter Plan of Treatment Upcoming Encounters Date Type Department Care Team (Late st Contact Info) Description 12/10/2025 9:15 AM EST Office Visit [facility] [address] [place] [address] Violeta Boo MD [address] [place] [address] Scheduled Orders Name Type Priority Associated Diagnoses Orde r Schedule XR Shoulder 2+ Views Right Imaging Routine Acute pain of both shoulders Expected: 05/15/2025, Expires: 05/15/2026 XR Hand 3+ Views Right Imaging Routine Bilateral hand pain Expected: 05/15/2025, Expires: 05/15/2026 documented as of this encounter Procedures Procedure Name Priority Date/Time Associated Diagnosis Comments VITAMIN D,25-OH,TOTAL,IA Routine 05/30/2025 10:20 AM EDT Essential hypertension TSH W/REFLEX TO FT4 Routine 05/30/2025 1 0:20 AM EDT Essential hypertension CBC WITH AUTO DIFFERENTIAL Routine 05/30/2025 10:20 AM EDT Essential hypertension HEPATITIS C AB W/REFL TO HCV RNA, QN, PCR Routine 05/30/2025 10:20 AM EDT Essential hypertension HIV 1/2 ANTIGEN/ANTIBODY, FOURTH GENERATION W/RFL Routine 05/30/2025 10:20 AM EDT Essential hypertension LIPID PANEL, STANDARD Routine 05/30/2025 10:20 AM EDT Essential hypertension COMPREHENSIVE METABOLIC PANEL Routine 05/30/2025 10:20 AM EDT Essential hypertension XR SHOULDER 2+ VIEWS BILATERAL Routine 05/21/2025 12:40 PM EDT XR HAND 3+ VIEWS BILATERAL Routine 05/21/2025 12:40 PM EDT XR FOOT 3+ VIEWS LEFT Routine 05/21/2025 12:40 PM EDT Pain of toe of left foot POCT GLYCATED HEMOGLOBIN, TOTAL Routine 05/15/2025 12:15 PM EDT Prediabetes POCT GLUCOSE Routine 05/15/2025 12:14 PM EDT Prediabetes documented in this encounter Results * TSH with Reflex to Free T4 (05/30/2025 10:20 AM EDT) TSH reflex Free T4 3.61 0.32 - 4.0 uIU/mL [facility] Blood Venous blood specimen / Unknown 05/30/2025 10:20 AM EDT 05/30/2025 10:20 AM EDT us Violeta Pascual MD LAB BLOOD ORDERABLES Final Result [facility] [address] [place] [phone] * Vitamin D, 25-Hydroxy, Total, Immunoassay (05/30/2025 10:20 AM EDT) Vitamin D 25-OH Total 37.8 >30 ng/mL [facility] Comment: Health Based Reference Values*< 20 ng/mL [id number] ng/mL Insufficient> 30 ng/mL Sufficient*Marcella CLARK. N Engl J Med. 2007;357:266-280There is no well-established upper level of normal vitamin Dlevels. Some laboratories use 50 ng/mL as an upper limit ofnormal. However, toxicity is patient-dependent and may occurat any level. Careful correlation with the patient'spresentation is necessary and, if there is concern forvitamin D toxicity, treatment should be consideredirrespective of the serum level.Care must be taken in interpreting Vitamin D results fromdifferent laboratories and methodologies. Published datademonstrated that results from patients undergoinghemodialysis may show a negative bias when tested withvarious automated 25-OH vitamin D assays when compared toLC-MS/MS.When testing samples from patients whose predominant form ofVitamin D is Vitamin D2, such as patients receiving VitaminD2 supplementation, results that are subtherapeutic shouldbe confirmed with another method such as LC-MS/MS. Blood Venous blood specimen / Unknown 05/30/2025 10:20 AM EDT 05/30/2025 10:20 AM EDT Violeta Pascual MD LAB BLOOD ORDERABLES Final Result [facility] [address] [place] [phone] * (ABNORMAL) Lipid Panel, Standard (05/30/2025 10:20 AM EDT) Triglycerides 214(H) <150 mg/dL [facility] Comment:Desirable Triglyceri de: less than 150 mg/dLBorderline High Triglyceride 150-199 mg/dLHigh Triglyceride: 200-499 mg/dLVery High Triglyceride: greater than or equal to 5OO mg/dL Cholesterol 140 <200 mg/dL [facility] Comment:Desirable Cholestero l: less than 200 mg/dLBorderline High Cholesterol: 200-239 mg/dLHigh Cholesterol: greater than 239 mg/dL LDL Cholesterol Calculated 69 <100 mg/dL [facility] Comment:Desirable LDL: less than 100 mg/dLNear Optimal/Above Optimal LDL: 110- 129 mg/dLBorderline High LDL: 130-159 mg/dLHigh LDL: 160-189 mg/dLVery High LDL: greater than or equal to 190 mg/dL HDL Cholesterol 29(L) >40 mg/dL [facility] Comment:Desirable HDL: great er than 40 mg/dL Note: This HDL assay may give artificially low results in patients with liver disease. Blood Venous blood specimen / Unknown 05/30/2025 10:20 AM EDT 05/30/2025 10:20 AM EDT us Violeta Pascual MD LAB BLOOD ORDERABLES Final Result Performing Organization Address City/[facility] Co de Phone Number [facility] [address] [place] [phone] * Hepatitis C Antibody with Reflex to HCV, RNA, Quantitative, Real-Time PCR (05/30/2025 10:20 AM EDT) Hepatitis C Antibody Nonreactive Nonreactive [facility] Comment:Antibodies to HCV no t detected; does not exclude early acuteHCV infection. Blood Venous blood specimen / Unknown 05/30/2025 10:20 AM EDT 05/30/2025 10:20 AM EDT us Violeta Pascual MD LAB BLOOD ORDERABLES Final Result Performing Organization Address [facility] Co de Phone Number [facility] [address] [place] [phone] * HIV-1/2 Antigen and Antibodies, Fourth Generation, with Reflexes (05/30/2025 10:20 AM EDT) HIV AB/AG Nonreactive Nonreactive [facility] Comment:HIV-1 p24 Ag and/or HIV-1/HIV-2 Ab not detected.A test result that is nonreactive does not exclude thepossibility of exposure to or infection with HIV-1 and/orHIV-2. Nonreactive results in this assay for individualswith prior exposure to HIV-1 and/or HIV-2 may be due toantigen and antibody levels that are below the limit ofdetection of this assay.The [employer] HIV Ag/Ab Combo assay result andsupplemental assay results should be interpreted inconjunction with the patient's clinical presentation,history and other laboratory results. If the results areinconsistent with clinical evidence, additional testing issuggested to confirm the result. Blood Venous blood specimen / Unknown 05/30/2025 10:20 AM EDT 05/30/2025 10:20 AM EDT Violeta Pascual MD LAB BLOOD ORDERABLES Final Result [facility] [address] [place] [phone] * (ABNORMAL) Comprehensive Metabolic Panel (05/30/2025 10:20 AM EDT) Sodium 141 135 - 145 mmol/L [facility] Potassium 3.8 3.3 - 5.1 mmol/L [facility] Chloride 104 96 - 108 mmol/L [facility] Carbon Dioxide 27 22 - 29 mmol/L [facility] Anion Gap 14 12 - 20 [facility] Urea Nitrogen (BUN) 24(H) 9 - 16 mg/dL [facility] Creatinine, Serum 1.41(H) 0.5 - 1.4 mg/dL [facility] Estimated Glomerular Filt Rate 37 [facility] Comment:Chronic Kidney Disea se: Estimated GFR < 60 mL/min/1.21p6Xkanad Kidney Disease: Estimated GFR < 15 mL/min/1.73m2 Glucose 115 60 - 115 mg/dL [facility] Calcium 9.4 8.4 - 10.2 mg/dL [facility] Bilirubin, Total 0.6 0.0 - 1.0 mg/dL [facility] Aspartate Amino Transferase 25 5 - 31 U/L [facility] Alanine Aminotransferase 18 0 - 31 U/L [facility] Total Protein 6.6 6.5 - 8.0 g/dL [facility] Albumin Level 4.1 3.5 - 5.0 g/dL [facility] Alkaline Phosphatase 136(H) 39 - 117 U/L [facility] Blood Venous blood specimen / Unknown 05/30/2025 10:20 AM EDT 05/30/2025 10:20 AM EDT Violeta Pascual MD LAB BLOOD ORDERABLES Final Result [facility] [address] [place] [phone] * CBC auto differential (05/30/2025 10:20 AM EDT) White Blood Count 7.9 4.8 - 10.8 X10*3/uL [facility] Red Blood Count 4.54 4.20 - 5.50 X10*6/uL [facility] Hemoglobin 13.6 12.0 - 16.0 g/dl [facility] Hematocrit 41.5 37.0 - 47.0 % [facility] Mean Corpuscular Volume 91.4 80.0 - 98.0 fL [facility] Mean Corpuscular Hemoglobin 30.0 27.0 - 33.0 pg [facility] Mean Corpuscular HGB Conc 32.8 31.0 - 35.0 g/dl [facility] Red Cell Distribution Width 14.4 11.0 - 16.0 % [facility] Platelet Count 291 160 - 400 X10*3/uL [facility] Mean Platelet Volume 10.6 9.4 - 12.3 fL [facility] Neutrophils Percent Auto 66.1 45 - 73 % [facility] Imm Gran Pct Auto 0.4 0.0 - 0.4 % [facility] Lymphocytes Percent Auto 25.3 20 - 40 % [facility] Monocytes Percent Auto 6.2 2 - 11 % [facility] Eosinophils Percent Auto 1.6 0 - 4 % [facility] Basophils Percent Auto 0.4 0 - 2 % [facility] NRBC Pct Auto 0.0 0.0 - 0.2 /100WBC [facility] Neutrophils Absolute Auto 5.2 2.0 - 8.3 x10*3/uL [facility] Imm Gran Abs Auto 0.03 0.00 - 0.03 X10*3/uL [facility] Lymphocytes Absolute Auto 2.0 1.2 - 4.9 X10*3/uL [facility] Monocytes Absolute Auto 0.5 0.1 - 1.2 X10*3/uL [facility] Eosinophils Absolute Auto 0.1 0.0 - 0.4 X10*3/uL [facility] Basophils Absolute Auto 0.0 0.0 - 0.2 X10*3/uL [facility] NRBC Abs Auto 0.000 0.0 - 0.012 X10*3/uL [facility] Blood Venous blood specimen / Unknown 05/30/2025 10:20 AM EDT 05/30/2025 10:20 AM EDT Violeta Pascual MD LAB BLOOD ORDERABLES Final Result Performing Organization Address City/State/[facility] Co de Phone Number [facility] [address] [place] [phone] * XR Hand 3+Views Bilateral (05/21/2025 12:40 PM EDT) Anatomical Region Laterality Modality Upper Extremities, Hand Bilateral Radiogra phic Imaging 05/21/2025 12:4 0 PM EDT Narrative 05/21/2025 1:12 PM EDT [address] [address] XRay Report Signed Patient: Violeta Alvarenga V MR#: [id number] : 1950 Acct:[id number] Age/Sex: 75 / F ADM Date: 05/21/25 Loc: CINDA Attending Dr: Violeta Pascual MD Ordering Physician: Violeta Boo MD Date of Service: 05/21/25 Procedure(s): XR Hand Bilat min 3v Accession Number(s): [id number] cc: Violeta Boo MD Three-view bilateral hand x-rays INDICATION: Hand pain after falling TECHNIQUE: PA, lateral, oblique views upper extremity Prior: None FINDINGS: Right hand: There is subtle narrowing of the second DIP joint with small marginal osteophytes. There is a small ossification dorsal to the joint. There is widening of the scapholunate interval. Left hand: No acute fracture line is evident. Scapholunate interval widening is present. XR/XR Hand Bilat min 3v IMPRESSION: Right hand: Widening of scapholunate interval could indicate scapholunate ligament tear. 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 Small ossification dorsal to the joint is probably chronic, correlate for focal acute tenderness to rule out avulsion fracture. Left hand: Widening of scapholunate interval could indicate scapholunate ligament tear. Electronically signed by: Regulo Nolan MD 05/21/2025 01:09 PM EDT RP Dictated By: Regulo Nolan MD Signed By: <Electronically signed by Regulo Nolan MD in OV> 05/21/25 1309 DD/ 1240 TD/TT: 05/21/25 1258 Wash Helper: Procedure Note Donotuseinterpreter, Image - 05/21/2025 [place] [address] XRay Report Signed Patient: Violeta Alvarenga R#: [id number] : 1950cct:[id number] Age/Sex: 75 / FADM Date: 05/21/25 Loc: HO.XRAY Attending Dr: Violeta Pascual MD Ordering Physician: Violeta Boo MD Date of Service: 05/21/25 Procedure(s): XR Hand Bilat min 3v Accession Number(s): [id number] cc: Violeta Boo MD Three-view bilateral hand x-rays INDICATION: Hand pain after falling TECHNIQUE: PA, lateral, oblique views upper extremity Prior: None FINDINGS: Right hand: There is subtle narrowing of the second DIP joint with small marginal osteophytes. There is a small ossification dorsal to the joint. There is widening of the scapholunate interval. Left hand: No acute fracture line is evident. Scapholunate interval widening is present. XR/XR Hand Bilat min 3v IMPRESSION: Right hand: Widening of scapholunate interval could indicate scapholunate ligament tear. 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 Small ossification dorsal to the joint is probably chronic, correlate for focal acute tenderness to rule out avulsion fracture. Left hand: Widening of scapholunate interval could indicate scapholunate ligament tear. Electronically signed by: Regulo Nolan MD 05/21/2025 01:09 PM EDT RP Dictated By: Regulo Nolan MD Signed By: <Electronically signed by Regulo Nolan MD in OV> 05/21/25 1309 DD/ 1240 TD/TT: 05/21/25 1258 Wash Helper: Violeta Pascual MD IMG XR PROCEDURES Shemar daylin Result - Final * XR Shoulder 2+ Views Bilateral (05/21/2025 12:40 PM EDT) Anatomical Region Laterality Modality Upper Extremities, Shoulder Bilateral Radi ographic Imaging 05/21/2025 12:4 0 PM EDT Narrative 05/21/2025 1:10 PM EDT [place] [address] XRay Report Signed Patient: Violeta Alvarenga V MR#: [id number] : 1950 Acct:[id number] Age/Sex: 75 / F ADM Date: 05/21/25 Loc: HO.XRAY Attending Dr: Violeta Pascual MD Ordering Physician: Violeta Boo MD Date of Service: 05/21/25 Procedure(s): XR Shoulder Mariela min 2V Accession Number(s): [id number] cc: Violeta Boo MD EXAMINATION: XR SHOULDER, MARIELA MIN 2V CLINICAL INFORMATION: pain s/p fall COMPARISON: 08/24/2022 TECHNIQUE: AP external rotation, Grashey, scapular Y views of each shoulder. FINDINGS: LEFT SHOULDER: Normal bone mineralization. No fracture, dislocation, or suspicious bone lesion. Normal alignment. The glenohumeral joint demonstrates mild degenerative changes with mild undersurface spurring. The AC joint demonstrates minimal degenerative spurring. There is a type II acromion. No undersurface spurring. The subacromial space is preserved. Remainder of the soft tissue and bony structures appear normal. RIGHT SHOULDER: Normal bone mineralization. No fracture, dislocation, or suspicious bone lesion. Normal alignment. The glenohumeral joint demonstrates minimal degenerative changes. Redemonstration of punctate tiny calcification of the infraspinatus tendon. The AC joint demonstrates minimal degenerative spurring. There is a type II acromion. No undersurface spurring. The subacromial space is preserved. Remainder of the soft tissue and bony structures appear normal. XR/XR Shoulder Mariela min 2V IMPRESSION: 1. No acute bony abnormalities of either shoulder. 2. Mild degenerative glenohumeral joint changes left greater than right. 3. Minimal degenerative AC joint changes bilaterally. 4. Minimal calcific tendinopathy of the right infraspinatus tendon. Electronically signed by: Jose F Pantoja MD 05/21/2025 01:06 PM EDT RP Dictated By: Jose F Pantoja MD Signed By: <Electronically signed by Jose F Pantoja MD in OV> 05/21/25 1306 DD/ 1240 TD/TT: 05/21/25 1258 Wash Helper: Procedure Note Donotuseinterpreter, Image - 05/21/[address] [address] XRay Report Signed Patient: Violeta Alvarenga VMR#: [id number] : 1950cct:[id number] Age/Sex: 75 / FADM Date: 05/21/25 Loc: HO.CARYL Attending Dr: Violeta Pascual MD Ordering Physician: Violeta Boo MD Date of Service: 05/21/25 Procedure(s): XR Shoulder Mariela min 2V Accession Number(s): [id number] cc: Violeta Boo MD EXAMINATION: XR SHOULDER, MARIELA MIN 2V CLINICAL INFORMATION: pain s/p fall COMPARISON: 08/24/2022 TECHNIQUE: AP external rotation, Grashey, scapular Y views of each shoulder. FINDINGS: LEFT SHOULDER: Normal bone mineralization. No fracture, dislocation, or suspicious bone lesion. Normal alignment. The glenohumeral joint demonstrates mild degenerative changes with mild undersurface spurring. The AC joint demonstrates minimal degenerative spurring. There is a type II acromion. No undersurface spurring. The subacromial space is preserved. Remainder of the soft tissue and bony structures appear normal. RIGHT SHOULDER: Normal bone mineralization. No fracture, dislocation, or suspicious bone lesion. Normal alignment. The glenohumeral joint demonstrates minimal degenerative changes. Redemonstration of punctate tiny calcification of the infraspinatus tendon. The AC joint demonstrates minimal degenerative spurring. There is a type II acromion. No undersurface spurring. The subacromial space is preserved. Remainder of the soft tissue and bony structures appear normal. XR/XR Shoulder Mariela min 2V IMPRESSION: 1. No acute bony abnormalities of either shoulder. 2. Mild degenerative glenohumeral joint changes left greater than right. 3. Minimal degenerative AC joint changes bilaterally. 4. Minimal calcific tendinopathy of the right infraspinatus tendon. Electronically signed by: Jose F Pantoja MD 05/21/2025 01:06 PM EDT Dictated By: Jose F Pantoja MD Signed By: <Electronically signed by Jose F Pantoja MD in OV> 05/21/25 1306 DD/ 1240 TD/TT: 05/21/25 1258 Wash Helper: Violeta Pascual MD IMG XR PROCEDURES Shemar daylin Result - Final * XR Foot 3+ Views Left (05/21/2025 12:40 PM EDT) Anatomical Region Laterality Modality Lower Extremities, Foot Left Radiogra phic Imaging 05/21/2025 12:4 0 PM EDT Narrative 05/21/2025 1:[address] [address] XRay Report Signed Patient: Violeta Alvarenga V MR#: [id number] : 1950 Acct:[id number] Age/Sex: 75 / F ADM Date: 05/21/25 Loc: HO.XRAY Attending Dr: Violeta Pascual MD Ordering Physician: Violeta Boo MD Date of Service: 05/21/25 Procedure(s): XR foot LT min 3V Accession Number(s): [id number] cc: Violeta Boo MD EXAMINATION: XR FOOT, LEFT CLINICAL INFORMATION: s/p fall COMPARISON: None available. TECHNIQUE: AP, lateral, and oblique views of the left foot. FINDINGS: No acute cortical disruption. No gross malalignment. Plantar calcaneal spur. Small exostosis at the Achilles tendon insertion. No gross joint effusion. Degenerative changes in the proximal and distal interphalangeal joints of the toes. XR/XR foot LT min 3V IMPRESSION: No acute fracture or dislocation. Enthesopathy, Achilles tendon. Electronically signed by: Santiago Rodriguez MD 05/21/2025 01:02 PM EDT Dictated By: Santiago Squires MD Signed By: <Electronically signed by Santiago Gaston MD in OV> 05/21/25 1302 DD/ 1240 TD/TT: 05/21/25 1258 Wash Helper: Procedure Note Donotuseinterpreter, Image - 05/21/[address] [address] XRay Report Signed Patient: Violeta Alvarenga VMR#: [id number] : 1950cct:[id number] Age/Sex: 75 / FADM Date: 05/21/25 Loc: HO.XRAY Attending Dr: Violeta Pascual MD Ordering Physician: Violeta Boo MD Date of Service: 05/21/25 Procedure(s): XR foot LT min 3V Accession Number(s): [id number] cc: Violeta Boo MD EXAMINATION: XR FOOT, LEFT CLINICAL INFORMATION: s/p fall COMPARISON: None available. TECHNIQUE: AP, lateral, and oblique views of the left foot. FINDINGS: No acute cortical disruption. No gross malalignment. Plantar calcaneal spur. Small exostosis at the Achilles tendon insertion. No gross joint effusion. Degenerative changes in the proximal and distal interphalangeal joints of the toes. XR/XR foot LT min 3V IMPRESSION: No acute fracture or dislocation. Enthesopathy, Achilles tendon. Electronically signed by: Santiago Rodriguez MD 05/21/2025 01:02 PM EDT Dictated By: Santiago Squires MD Signed By: <Electronically signed by Santiago Gaston MDin OV> 05/21/25 1302 DD/ 1240 TD/TT: 05/21/25 1258 Wash Helper: Violeta Pascual MD IMG XR PROCEDURES Shemar daylin Result - Final * (ABNORMAL) POCT HGB A1C (05/15/2025 12:15 PM EDT) Hemoglobin A1C 5.7 4.0 - 5.7 % QC Media Lot # [id number] Lot# Expiration Date Blood 05/15/2025 12:1 5 PM EDT Violeta Pascual MD POINT OF CARE TEST EN TER/EDIT ORDERABLES Final Result * POCT Glucose (05/15/2025 12:14 PM EDT) Glucose Blood, POC 147 60 - 200 mg/dL QC Media Lot # [id number] Lot# Expiration Date Blood Capillary blood specimen / Unknown 05/15/2025 12:14 PM EDT Violeta Pascual MD POINT OF CARE TEST EN TER/EDIT ORDERABLES Final Result documented in this encounter Visit Diagnoses Diagnosis Essential hypertension- Primary Unspecified essential hypertension Prediabetes Other abnormal glucose Psoriatic arthritis (CMS/HCC) (HCC) Psoriatic arthropathy Psychosis, unspecified psychosis type (CMS/HCC) (HCC) Morbid obesity (CMS/HCC) (HCC) Morbid obesity Spondylosis of lumbar region without myelopathy or radiculopathy Seasonal allergies Allergic rhinitis, cause unspecified Acute pain of both shoulders Bilateral hand pain Pain of toe of left foot documented in this encounter Additional Health Concerns Assessment Noted Time PHQ-9 Depression Total Score: 17 024 11:23 AM EDT documented as of this encounter Care Teams Arabic Translator Relationship Specialty Start Date End Date Violeta Boo MD [address] [place] [phone] PCP - General Family Medicine 05/21/22 documented as of this encounter
--- NOTE | 2025-10-31 08:56 | MHC.OFFVIS ---
Vital Signs 10/31/25 08:57 Height 5 ft 3 in Weight 267 lb BMI 47.3 BP 182/84 H Blood Pressure Location Rt brachial Position Sitting Respiration 16 Pulse 89 Pulse Source Pulse Oximeter Pulse Oximetry (%) 94 Oxygen Delivery Method Room Air Intake Visit Reasons: S/P BILATERAL DIAGNOSTIC L2-L3-L4 MBB Infection Control Practitioner Required: Yes Infection Control Practitioner Language: Italian Accompanied by: Self / Same As Patient Allergies peanut (PEANUT) Allergy (Severe, Verified 10/31/25 08:56) ITCHY, SWELLING seafood Allergy (Severe, Verified 10/31/25 08:56) Rash tomato (TOMATO) Allergy (Severe, Verified 10/31/25 08:56) ITCHY, SWELLING aspirin (ASA) Allergy (Intermediate, Verified 10/31/25 08:56) ITCHY,ANXIOUS, itching, rash Iodinated Contrast Media (IV CONTRAST) Allergy (Intermediate, Verified 10/31/25 08:56) HIVES plantain (PLANTAIN) Allergy (Intermediate, Verified 10/31/25 08:56) ITCHY/SWELLING HPI Comments Details: Deidra is back in my office after diagnostic L2-L3 L4 medial branches bilateral. She reports moderate to minimal pain improvement after the procedure. She had pain 10/10 before the procedure. She had pain 8 to 7/10 after the procedure. This is not significant pain improvement after diagnostic medial branch block. Attention was attracted today that patient actually reporting pain in the upper lumbar or lower thoracic spine. I offered the patient to go for T12, L1, L2 bilateral medial branch block trying to alleviate pain higher in the lumbar spine. Patient agreed to go for the procedure. I will schedule her accordingly. Prior: very pleasant 74 years old female who is back in my office with complains on severe pain now in the projection of the lower lumbar spine. She was sent for the x-ray of the lumbar spine and x-ray of the pelvis. Lumbar spine x-ray demonstrated advanced spondylosis. It also showed bilateral more on the left and less on the right sacralization of the L5 vertebra. The pelvis x-ray was negative for sacroiliitis. It was also negative for hip joint arthritis. Her physical exam today makes me think about spondylosis of the lumbar spine as a cause of her pain. Her pain is mostly axial and does not radiate into bilateral lower extremities. I will schedule her for L2, L3, L4 bilateral medial branch block to support this theory offices spondylosis cause of her pain. I also explained to the patient that her severe obesity is 1 of the causes of her pain. Her BMI is 48 kilogram/meter sq. She said that she is working on it. Prior: She was under my care in January, she received 4 severe axial back pain aggravated by sitting and bending forward intercept procedure. She was doing very well after the procedure reported excellent mobility very good activities of daily living and absence of pain. However 3 days after I removed the stitches, she fell and started to feel this pain. The pain is very severe, aggravated by walking, and she reports clicking sensation in her pelvis. The sacral insufficiency, exacerbation of sacroiliac joint problem, versus lower lumbar spine fractures could not be excluded. I will send her for the x-ray of the lumbar spine and x-ray of the pelvis. [facility] Medical History Myocardial infarct Pain in left shoulder Screening for viral disease COPD (chronic obstructive pulmonary disease) Restrictive lung disease Allergic rhinitis ZOEY (obstructive sleep apnea) Edema PVD (peripheral vascular disease) On beta prashant at home Osteopenia Gout Osteoarthritis Rheumatoid arthritis Anemia Panic attacks Anxiety Schizophrenia Pre-diabetes CKD (chronic kidney disease), stage III GERD (gastroesophageal reflux disease) Fatty liver Myocardial infarction CAD (coronary artery disease) Angina pectoris HTN (hypertension) Morbid obesity ZOEY treated with BiPAP COPD (chronic obstructive pulmonary disease) Allergic rhinitis Surgical History History of colonoscopy (~2021) History of lumpectomy of right breast (06/21/22) History of bladder suspension procedure History of esophagogastroduodenoscopy (EGD) Hx of colonoscopy History of hysterectomy History of tubal ligation History of lumpectomy of right breast Family History Mother Leukemia Brother Colon cancer Brother Leukemia Sister Breast cancer Sister Vaginal cancer Sister Breast cancer Sister Breast cancer Daughter Thyroid disease Social History Alcohol intake: never Patient Tobacco Use Status: Never used Tobacco Second Hand Smoke Exposure: No Female Reproductive History Menstrual Age of Menarche: 13 Review of Systems Const All systems reviewed & are unremarkable except as noted in HPI and below Physical Exam Vital Signs: Last Vital Signs Pulse 89 10/31/25 08:57 Resp 16 10/31/25 08:57 BP 182/84 H 10/31/25 08:57 Pulse Ox 94 10/31/25 08:57 Oxygen Delivery Method Room Air 10/31/25 08:57 BMI result Body Mass Index 47.3 Const General: cooperative, healthy appearing, no acute distress and alert Orientation/consciousness: patient oriented x3 Limitations: no limitations HEENT Head: Yes normal to inspection, Yes normocephalic and Yes atraumatic Ears: hearing grossly normal bilaterally Eyes General: appearance normal, both eyes and all related structures Neck Neck: Yes normal visual inspection, Yes supple and Yes no JVD Resp Effort & Inspection: normal respiratory effort, able to speak in complete sentences and no audible wheezes Cardio Jugular venous distension: no JVD Peripheral pulses: Peripheral pulses 2+ throughout (no appreciable rhythmic abnormalities) Back/Spine/Pelvis Other: Norberto test and Pelvic compression test + bilaterally. Facet loading test + bilaterally. Thoracic/Lumbar Spine: thoracic and lumbar spine normal to inspection, No Thoracic/lumbar spine scar(s), pain with thoraco-lumbar ROM, paraspinal muscle tenderness, thoraco-lumbar ROM limited, thoracic spinal tenderness and lumbar spinal tenderness Sacroiliac joints: bilaterally tender to palpation Neuro General: patient oriented x3, No gait normal and moves all extremities Assessment & Plan Assessment & Plan (1) Spondylosis of lumbar region without myelopathy or radiculopathy: Code(s): M47.816 - Spondylosis without myelopathy or radiculopathy, lumbar region Category: Medical (2) Morbid obesity: Comment: She remains morbidly obese, because she cannot do any exercise , she has lost a few lb of weight as compared to last time. She remains on semaglutide injections and is now planning to join the weight management program at [facility]. Code(s): E66.01 - Morbid (severe) obesity due to excess calories Category: Medical Plan Diagnostic L2, L3, L4 bilateral medial branch block resulted in no improvement of the pain of this patient. Attention was attracted today that she is actually complaining on pain in the upper lumbar lower thoracic spine. She complains on more right-sided pain and left sided pain also exists. I offered her and she agreed to go for T12, L1, L2 bilateral medial branch blocks. We will assess the results of the injection after. She continues to deny pain with prolonged sitting, she denies pain in the lower lumbar spine. Therefore the pain related to the vertebra genic low back syndrome is still very good controlled. Coding Level of Care Code Est Pt Level 3 (23417) Diagnoses Spondylosis of lumbar region without myelopathy or radiculopathy M47.816 Morbid obesity E66.01
[2025-10-31 08:57] VITALS: BP 182/84; PULSE 89; RESP 16; O2SAT 94; BMI 47.3
--- OUTSIDE RECORDS SUMMARY | 2025-10-31 09:18 | XMS_ITS | Encounter Summary ---
Author Organization [employer] Address [address] [address] [place] [address] Care Team Providers Care International Marketing Manager Name Role Phone Violeta Boo MD Primary Care Provide r Reason for Visit * Reason Onset Date Comments Durable Medical Equipment 11/20/2024 Encounter Details Date Type Department Care Team ([facility] st Contact Info) Description 11/20/[address] [facility] MED[facility]INE [address] [place], [place] [phone] Violeta Boo MD [address] [place] [address] Durable Medical Equipment Social History Tobacco Use [...] Tc from pt requesting new script for rolldayo walker due to her current one being broken. If any questions you can contact pt at [phone]. (Persian Speaker) documented in this encounter Plan of Treatment Upcoming Encounters Date Type Department Care Team (Late st Contact Info) Description 12/10/2025 9:15 AM EST Office Visit [facility] MEDICINE [address] [place] [address] Violeta Boo MD [address] [place] [address] documented as of this encounter Visit Diagnoses Not on filedocumented in this encounter Additional Health Concerns Assessment Noted Time PHQ-9 Depression Total Score: 17 024 11:23 AM EDT documented as of this encounter Care Teams International Marketing Manager Relationship Specialty Start Date End Date Violeta Boo MD [address] [place] [address] PCP - General Family Medicine 05/21/22 documented as of this encounter
--- OUTSIDE RECORDS SUMMARY | 2025-10-31 09:18 | XMS_ITS | Encounter Summary ---
Author Organization [facility] Address [address] [facility] [address] [place] [address] Care Team Providers Care Mountain Or Glacier Guide Name Role Phone Violeta Boo MD Primary Care Provide r Reason for Visit * Reason Comments Med Refill Encounter Details Date Type Department Care Team (Late Contact Info) Description 02/13/2023 Refill [facility] [address] [place] [phone] Cassy Starks MD [address] [place] [address] [phone] Social History Tobacco Use Types Packs/Day Years [...] Description 12/10/2025 9:15 AM EST Office Visit [facility] [address] [place] [phone] Violeta Boo MD [address] [place], [place] [phone] documented as of this encounter Visit Diagnoses Not on filedocumented in this encounter Care Teams Mountain Or Glacier Guide Relationship Specialty Start Date End Date Violeta Boo MD [address] [place] [address] PCP - General Family Medicine 05/21/22 documented as of this encounter
--- OUTSIDE RECORDS SUMMARY | 2025-10-31 09:18 | XMS_ITS | Encounter Summary ---
Author Organization [employer] Address [address] [facility] [address] [place] [address] Care Team Providers Care Activity Therapist Name Role Phone Violeta Boo MD Primary Care Provide r Reason for Visit * Reason Onset Date Comments Referral 12/07/2024 Encounter Details Date Type Department Care Team ([facility] st Contact Info) Description 12/07/[address] [facility] MEDICINE [address] [place], [place] [phone] Violeta Boo MD [address] [place] [address] Referral Social History Tobacco Use Types Packs/Day [...] 12/07/2024 11:04 AM EST [facility] as she states wrong referral was sent over she's requestingPhysical Therapy [facility] [phone]. documented in this encounter Plan of Treatment Upcoming Encounters Date Type Department Care Team (Late st Contact Info) Description 12/10/2025 9:15 AM EST Office Visit [facility] [address] [place] [phone] Violeta Boo MD [address] [place] [address] documented as of this encounter Visit Diagnoses Not on filedocumented in this encounter Additional Health Concerns Assessment Noted Time PHQ-9 Depression Total Score: 17 024 11:23 AM EDT documented as of this encounter Care Teams Activity Therapist Relationship Specialty Start Date End Date Violeta Boo MD [address] [place] [phone] PCP - General Family Medicine 05/21/22 documented as of this encounter
--- OUTSIDE RECORDS SUMMARY | 2025-10-31 09:18 | XMS_ITS | Encounter Summary ---
Author Organization [employer] Address [address] [facility] [address] [place] [address] Care Team Providers Care Fluxer Name Role Phone Violeta Boo MD Primary Care Provide r Reason for Visit * Reason Onset Date Comments Appointment Request 02/17/2023 Encounter Details Date Type Department Care Team ([facility] st Contact Info) Description 02/17/2023 Telephone [facility] [address] [place] [address] Violeta Boo MD [address] [place] [address] Appointment Request Social History Tobacco Use Types [...] Miscellaneous Notes * Telephone Encounter - Shay Navaror - 02/22/2023 10:55 AM EDT Tc from pt returning call for message previously sent. Please contact pt at [phone] Yemeni Speaker * Telephone Encounter - Shay Navarro - 02/17/2023 1:16 PM EDT Tc from pt requesting to r/s appt for Follow up on 02/17/2023. Please contact pt at [phone] Yemeni Speaker documented in this encounter Plan of Treatment Upcoming Encounters Date Type Department Care Team (Late st Contact Info) Description 12/10/2025 9:15 AM EST Office Visit [facility] [address] [place] [address] Violeta Boo MD [address] [place] [address] documented as of this encounter Visit Diagnoses Not on filedocumented in this encounter Care Teams Fluxer Relationship Specialty Start Date End Date Violeta Boo MD [address] [place] [address] PCP - General Family Medicine 05/21/22 documented as of this encounter
--- OUTSIDE RECORDS SUMMARY | 2025-10-31 09:18 | XMS_ITS | Clinical Summary ---
Author Organization [employer] Address [address] [place] [address] 7 [place] [address] Care Team Providers Care Inspector Firearms Name Role Phone Violeta Boo MD Primary Care Provide r Allergies Active Allergy Reactions Criticality Noted Date Comments Aspirin Rash High 10/23/2012 Other reaction(s): rash Iodinated Contrast Media 10/30/2012 Peanut-Containing Drug Products High 01/17/2025 Other Reaction(s): ITCHY, SWELLING Plantain High 01/17/2025 Other Reaction(s): ITCHY/SWELLING Shellfish Allergy Rash High 01/17/2025 Tomato High 01/17/2025 Other Reaction(s): ITCHY, SWELLING Medications * This document contains information received from the source organization and may not represent a complete record from that organization. albuterol (ProAir HFA) 108 (90 Base) MCG/ACT [...] tablet by mouth every 8 (eight) hours. 05/24/2 022 Active OLANZapine (ZyPREXA) 15 MG tablet Take [...] by mouth 2 times daily. 023 Active colchicine 0.6 MG tablet Take 0.6 mg by mouth every other day. Active Blood Glucose Monitoring Suppl (Rapid Pathogen Screeningio Flex System) w/Device kit USE DIRECTED TO TEST BLOOD SUGAR TWICE DAILY 024 Active allopurinol (Zyloprim) 300 MG tablet Take [...] MOUTH EVERY MORNING 30 tablet 025 Active Calcium Carb-Cholecalc iferol 600-10 MG-MCG tablet TAKE 1 TABLET BY MOUTH TWICE DAILY IN THE MORNING AND IN THE EVENING 60 tablet 025 Active Ferrous Sulfate (iron) 325 (65 Fe) MG tablet TAKE 1 TABLET BY MOUTH EVERY MORNING 30 tablet 025 Active montelukast (Singulair) 10 MG tablet TAKE 1 TABLET BY MOUTH EVERY EVENING 30 tablet 025 Active pantoprazole (ProtoNix) 40 MG EC tablet [...] 1 (one) time per week. 2 mL 025 Active diphenhydrAMIN E (BENADryl) 25 MG [...] BY MOUTH EVERY MORNING 90 tablet 1 Active Otezla 30 MG tablet Active BP Wash 10 % external wash Active Clindamycin Phosphate (Clindamycin Phos, Twice-Daily,) 1 % gel Active Ozempic, 1 MG/DOSE, 4 MG/3ML solution pen-injectorIn dications:Pred iabetes Inject 1 MG SUBCUTANEOUSLY EVERY 7 DAYS IN THE ABDOMEN, THIGHS OR UPPER ARM. ROTATE INJECTION SITES. 3 mL 1 5 1:06 PM EST 025 Active ezetimibe (Zetia) 10 MG tablet Take 1 tablet (10 mg) by mouth in the morning. 90 tablet 1 5 1:06 PM EST 025 Active cholecalcifero l (Vitamin D-3) 25 MCG tabletIndicati ons:Morbid obesity (CMS/HCC) (HCC) TAKE 1 TABLET BY MOUTH EVERY MORNING 60 tablet 1 025 Active cholecalcifero l (Vitamin D-3) 25 MCG (1000 UT) tabletIndicati ons:Morbid obesity (CMS/HCC) (HCC) Take 1 tablet (25 mcg) by mouth Once per day. 60 tablet 1 025 2024 Discontinued Active Problems Problem Noted Date Diagnosed Date Spondylosis of lumbar spine 10/14/2025 Primary osteoarthritis of both shoulders Psoriatic arthritis ([facility]/HCC) 05/15/2025 Assessment & Plan (05/15/2025 4:08 PM EDT): I will prescribe her patient her recliner to help her with her daily life and activities Psychosis, unspecified psychosis type (CMS/[facility]) 05/15/2025 Assessment & Plan (05/15/2025 4:07 PM [...] (08/13/2024 1:13 PM EDT): Being follow by WORKING SUPERVISOR US is pending Vaginal pain 03/29/2024 Rectal [...] 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 Otitis externa 12/16/2022 Assessment & Plan (12/16/2022 [...] exercise, life style modifications, diet, referral to station air traffic control specialist. Discussed re lower calorie intake, increase dietary fiber Pt agreed to be referred to dietitian. 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 Date Type Department Care Team Description 10/22/2025 Telephone [facility] [address] [place] [phone] Violeta Boo MD Durable Medical Equipment (DME: LMN: Recliner) 10/17/[address] [address] Violeta Boo MD paperwork; Durable Medical Equipment (DME: Reliable Medical Supply Form) 10/14/2025 Orders Only [facility] [address] [place] [phone] Violeta Boo MD Spondylosis of lumbar spine (Primary Dx); Primary osteoarthritis of both shoulders 10/09/[address] [address] Violeta Boo MD Durable Medical Equipment 10/07/2025 Refill [facility] [address] [place] [phone] Violeta Boo MD Morbid obesity (CMS/HCC) (HCC) 09/30/2025 Telephone [facility] [address] [place] [phone] Violeta Boo MD DM supplies 09/26/2025 Refill [facility] [address] [place] [phone] Violeta Boo MD 09/18/2025 Telephone [facility] [address] [place] [phone] Violeta Boo MD Lab Orders 09/11/2025 Orders Only [facility] [address] [place] [phone] Violeta Boo MD Family history of cancer (Primary Dx) 09/09/2025 Orders Only [facility] [address] [place] [phone] Violeta Boo MD Latent tuberculosis (Primary Dx) 09/09/2025 Telephone [facility] [address] [place] [phone] Violeta Boo MD tb test 09/09/[address] [address] Violeta Boo MD Referral 09/09/2025 Telephone [facility] [address] [place] [phone] Violeta Boo MD Durable Medical Equipment (DME: Replacement Walker) 09/05/2025 Refill [facility] [address] [place] [phone] Violeta Boo MD Prediabetes 08/20/2025 Telephone [facility] [address] [place] [phone] Violeta Boo MD FYI; Durable Medical Equipment (DME: Recliner (Updated Order)) 08/06/2025 Telephone [facility] [address] [place] [phone] Violeta Boo MD Durable Medical Equipment (DME Order: Recliner) from Last 3 Months Immunizations Immunization Administration [...] 05/15/2025 11:34 AM EDT Plan of Treatment Upcoming Encounters Date Type Department Care Team (Late st Contact Info) Description 12/10/2025 9:15 AM EST Office Visit [facility] [address] [place] [address] Violeta Boo MD [address] [place] [address] Health Maintenance Due Date Last Done Comments CT Colonography 1950 FIT DNA/Cologuard 1950 FIT 1950 FOBT 1950 Sigmoidoscopy 1950 Alcohol/Substance Use Screening 1964 RSV Patients and Patients Aged 60 years or older (1 - Risk 50-74 years 1-dose series) 2002 DTaP/Tdap/Td Vaccines (2 - Td or Tdap) 01/29/2023 01/29/2013 SDOH Screening 01/24/2025 01/25/2024 Depression Monitoring 02/10/2025 08/13/2024, 024 Mammogram 08/30/2025 08/30/2024, 04/15, 05/11/2022, Additional history exists COVID-19 Vaccine (7 - Pfizer risk 2024- season) 2026 08/22/2025, 08/13/2024, 09/07/2023, Additional history exists Tobacco Screening 06/20/2026 06/20/2025 Diabetes: Hemoglobin A1C 07/26/2026 025, 07/03/2025, 05/15/2025, Additional history exists Colonoscopy 06/11/2027 06/11/2022 Colorectal Cancer Screening 06/11/2027 Lipid Panel 05/30/2030 05/30/2025, 03/15/2022 Zoster Vaccines Completed 11/29/2019, 11/14, 08/22/2019, Additional history exists Pneumococcal Vaccine: 50+ Years Completed 08/13/2024, 03/19/2019, 12/12/2017, Additional history exists Hepatitis C Screening Completed 05/30/2025, 020 Influenza Vaccine Completed 08/22/2025, , 09/07/2023, Additional history exists HIB Vaccines Aged Out [...] Name Priority Date/Time Associated Diagnosis Comments XR SHOULDER 2+ VIEWS BILATERAL Routine 10/28/2025 12:26 PM EST XR CHEST 2 VIEWS Routine 10/28/2025 12:1 9 PM EST Latent tuberculosis HEPATITIS C AB W/REFL TO HCV RNA, QN, PCR Routine 05/30/2025 10:20 AM EDT Essential hypertension LIPID PANEL, STANDARD Routine 05/30/2025 10:20 AM EDT Essential hypertension POCT GLYCATED HEMOGLOBIN, TOTAL Routine 05/15/2025 12:15 PM EDT Prediabetes BI MAMMOGRAM SCREENING TOMOSYNTHESIS BILATERAL Routine 08/30/2024 9:10 AM EDT HM COLONOSCOPY Routine 06/11/2022 from Last 3 Months or Most Recently Relevant to Health Maintenance Results * XR Shoulder 2+ Views Bilateral (10/28/2025 12:26 PM EST) Anatomical Region Laterality Modality Upper Extremities, Shoulder Bilateral Radi ographic Imaging 10/28/2025 12:2 6 PM EST Narrative 10/28/2025 1:00 PM EST [address] [address] XRay Report Signed Patient: Violeta Alvarenga V MR#: [id number] : 1950 Acct:[id number] Age/Sex: 75 / F ADM Date: 10/28/25 Loc: HO.HHCX Attending Dr: Violeta Pascual MD Ordering Physician: Jayy Castorena Date of Service: 10/28/25 Procedure(s): XR Shoulder Pablo min 2V Accession Number(s): [id number] cc: Jayy Castorena; Violeta Boo MD Reason for Exam: M25.511 - Pain in right shoulder EXAMINATION: X-ray bilateral shoulders CLINICAL INFORMATION: Pain COMPARISON: X-rays 05/21/2025 TECHNIQUE: Bilateral shoulders each 2 views FINDINGS: Left shoulder: No acute fracture, dislocation or suspicious bony lesion is identified Mild glenohumeral arthritis. Minimal acromioclavicular arthritis. No significant soft tissue swelling. No abnormal soft tissue calcification. Right shoulder: No acute fracture, dislocation or suspicious bony lesion is identified Minimal acromioclavicular arthritis. Glenohumeral joint space is maintained.. No significant soft tissue swelling. No abnormal soft tissue calcification. XR/XR Shoulder Pablo min 2V IMPRESSION: No acute findings. Mild left glenohumeral arthritis. Minimal bilateral acromioclavicular arthritis. Electronically signed by: Marco A Rankin MD 10/28/2025 12:57 PM [facility] Dictated By: Marco A Rankni MD Signed By: <Electronically signed by Marco A Rankin MD in OV> 10/28/25 1257 DD/ 1226 TD/TT: 10/28/25 1236 Cardiac Surgeon: Procedure Note Donotuseinterpreter, Image - 10/28/[address] [address] XRay Report Signed Patient: Violeta Alvarenga VMR#: [id number] : 1950cct:[id number] Age/Sex: 75 / FADM Date: 10/28/25 Loc: HO.HHCX Attending Dr: Violeta Pascual MD Ordering Physician: Jayy Castorena Date of Service: 10/28/25 Procedure(s): XR Shoulder Pablo min 2V Accession Number(s): [id number] cc: Jayy Castorena; Violeta Boo MD Reason for Exam: M25.511 - Pain in right shoulder EXAMINATION: X-ray bilateral shoulders CLINICAL INFORMATION: Pain COMPARISON: X-rays 05/21/2025 TECHNIQUE: Bilateral shoulders each 2 views FINDINGS: Left shoulder: No acute fracture, dislocation or suspicious bony lesion is identified Mild glenohumeral arthritis. Minimal acromioclavicular arthritis. No significant soft tissue swelling. No abnormal soft tissue calcification. Right shoulder: No acute fracture, dislocation or suspicious bony lesion is identified Minimal acromioclavicular arthritis. Glenohumeral joint space is maintained.. No significant soft tissue swelling. No abnormal soft tissue calcification. XR/XR Shoulder Pablo min 2V IMPRESSION: No acute findings. Mild left glenohumeral arthritis. Minimal bilateral acromioclavicular arthritis. Electronically signed by: Marco A Rankin MD 10/28/2025 12:57 PM EST Dictated By: Marco A Rankin MD Signed By: <Electronically signed by Marco A Rankin MD in OV> 10/28/25 1257 DD/ 1226 TD/TT: 10/28/25 1236 Cardiac Surgeon: BESSY us [facility] External Provider IMG XR PROCEDURES Final Result * XR Chest 2 Views (10/28/2025 12:19 PM EST) Anatomical Region Laterality Modality Chest Radiographic Rena ging 10/28/2025 12:1 9 PM EST Narrative 10/28/2025 1:00 PM EST [address] [address] XRay Report Signed Patient: Violeta Alvarenga V MR#: [id number] : 1950 Acct:[id number] Age/Sex: 75 / F ADM Date: 10/28/25 Loc: HO.CX Attending Dr: Violeta Pascual MD Ordering Physician: Violeta Boo MD Date of Service: 10/28/25 Procedure(s): XR chest 2V Accession Number(s): [id number] cc: Violeta Boo MD Reason for Exam: latent TB EXAMINATION: XR CHEST CLINICAL INFORMATION: latent TB COMPARISON: May 04, 2024 TECHNIQUE: PA and lateral views. FINDINGS: No gross consolidation, pleural effusion or pneumothorax. Subsegmental atelectasis versus scarring, left lower hemithorax. Cardiomediastinal silhouette size is normal. Calcified plaque thoracic aorta. Multilevel thoracic spondylosis. S-shaped curvature of the thoracic spine. Patient's large body habitus/obesity.. XR/XR chest 2V IMPRESSION: No acute airspace disease. Electronically signed by: Santiago Rodriguez MD 10/28/2025 12:57 PM EST Dictated By: Santiago Squires MD Signed By: <Electronically signed by Santiago Gaston MD in OV> 10/28/25 1257 DD/ 1219 TD/TT: 10/28/25 1236 Cardiac Surgeon: Procedure Note Donotuseinterpreter, Image - 10/28/2025 [place] [address] XRay Report Signed Patient: Violeta Alvarenga VMR#: [id number] : 2Acct:[id number] Age/Sex: 75 / FADM Date: 10/28/25 [facility]: Violeta Pascual MD Ordering Physician: Violeta Boo MD Date of Service: 10/28/25 Procedure(s): XR chest 2V Accession Number(s): [id number] cc: Violeta Boo MD Reason for Exam: latent TB EXAMINATION: XR CHEST CLINICAL INFORMATION: latent TB COMPARISON: May 04, 2024 TECHNIQUE: PA and lateral views. FINDINGS: No gross consolidation, pleural effusion or pneumothorax. Subsegmental atelectasis versus scarring, left lower hemithorax. Cardiomediastinal silhouette size is normal. Calcified plaque thoracic aorta. Multilevel thoracic spondylosis. S-shaped curvature of the thoracic spine. Patient's large body habitus/obesity.. XR/XR chest 2V IMPRESSION: No acute airspace disease. Electronically signed by: Santiago Rodriguez MD 10/28/2025 12:57 PM EST RP Dictated By: Santiago Squires MD Signed By: <Electronically signed by Santiago Gaston MDin OV> 10/28/25 1257 DD/ 1219 TD/TT: 10/28/25 1236 Cardiac Surgeon: us Violeta Pascual MD IMG XR PROCEDURES Fin al Result * Hepatitis C Antibody with Reflex to HCV, RNA, Quantitative, Real-Time PCR (05/30/2025 10:20 AM EDT) Hepatitis C Antibody Nonreactive Nonreactive [facility] Comment:Antibodies to HCV no t detected; does not exclude early acuteHCV infection. Blood Venous blood specimen / Unknown 05/30/2025 10:20 AM EDT 05/30/2025 10:20 AM EDT us Violeta Pascual MD LAB BLOOD ORDERABLES Final Result [facility] [address] [place] [phone] * (ABNORMAL) Lipid Panel, Standard (05/30/2025 10:20 AM EDT) Triglycerides 214(H) <150 mg/dL [facility] Comment:Desirable Triglyceri de: less than 150 mg/dLBorderline High Triglyceride 150-199 mg/dLHigh Triglyceride: 200-499 mg/dLVery High Triglyceride: greater than or equal to 5OO mg/dL Cholesterol 140 <200 mg/dL [facility] Comment:Desirable Cholestero l: less than 200 mg/dLBorderline High Cholesterol: 200-239 mg/dLHigh Cholesterol: greater than 239 mg/dL LDL Cholesterol Calculated 69 <100 mg/dL [facility] Comment:Desirable LDL: less than 100 mg/dLNear Optimal/Above Optimal LDL: 110- 129 mg/dLBorderline High LDL: 130-159 mg/dLHigh LDL: 160-189 mg/dLVery High LDL: greater than or equal to 190 mg/dL HDL Cholesterol 29(L) >40 mg/dL [facility] Comment:Desirable HDL: great er than 40 mg/dL Note: This HDL assay may give artificially low results in patients with liver disease. Blood Venous blood specimen / Unknown 05/30/2025 10:20 AM EDT 05/30/2025 10:20 AM EDT us Violeta Pascual MD LAB BLOOD ORDERABLES Final Result Performing Organization Address City/State/[facility] Co de Phone Number [facility] [address] [place] [phone] * (ABNORMAL) POCT HGB A1C (05/15/2025 12:15 PM EDT) Hemoglobin A1C 5.7 4.0 - 5.7 % QC Media Lot # [id number] Lot# Expiration Date [id number] Blood 05/15/2025 12:1 5 PM EDT us Violeta Pascual MD POINT OF CARE TEST EN TER/EDIT ORDERABLES Final Result * BI Mammogram Screening Tomosynthesis Bilateral (08/30/2024 9:10 AM EDT) Anatomical Region Laterality Modality Breast Bilateral Mammography 08/30/2024 9:10 AM EDT Narrative 09/11/2024 12:30 PM EDT [facility] [address] [place] [address] Mammography Report Signed with Cynthia Patient: Violeta Alvarenga V MR#: [id number] : 1950 Acct:[id number] Age/Sex: 74 / F ADM Date: 08/30/24 Loc: HO.MAMMO Attending Dr: Violeta Pascual MD Ordering Physician: Violeta Boo MD Results: 2Benign Findings Date of Service: 08/30/24 Follow Up: 1 Year From Orig ina Mammogram Procedure(s): MM tomosynthesis screening BI Accession Number(s): [id number] cc: Violeta Boo MD ADDENDUM ADDENDUM #1 [...] OV> 09/11/24 1227 DD/ 9 TD/TT: 08/30/24924 Cardiac Surgeon: Procedure Note Donotuseinterpreter, Image - 09/14/2024 [facility] [address] [place] [address] Mammography Report Signed with Addenda Patient: Violeta Alvarenga VMR#: [id number] : 1950cct:[id number] Age/Sex: 74 / FADM Date: 08/30/24 Loc: HO.MAMMO Attending Dr: Violeta Pascual MD Ordering Physician: Violeta Boo MDResults: 2Benign Findings Date of Service: 08/30/24Follow Up: 1 Year From Orig inal Mammogram Procedure(s): MM tomosynthesis screening BI Accession Number(s): [id number] cc: Violeta Boo MD ADDENDUM ADDENDUM #1 [...] OV> 09/11/24 1227 DD/ 9 TD/TT: 08/30/24924 Cardiac Surgeon: Violeta Pascual MD IMG BI PROCEDURES Shemar daylin Result - Final * Colonoscopy (06/11/2022) Historical Provider HEALTH MAINTENANCE Final Result from Last 3 Months or Most Recently Relevant to Health Maintenance Insurance [facility] [employer] (HMO D-SNP) CARRIE WALLACE [id number] Care Teams Inspector Firearms Relationship Specialty Start Date End Date Violeta Boo MD [address] [place] [phone] PCP - General Family Medicine 05/21/22
--- OUTSIDE RECORDS SUMMARY | 2025-10-31 09:19 | XMS_ITS | Encounter Summary ---
Author Organization [facility], Address [address] [place] [address] Phone Care Team Providers Care Harness Installer Name Role Phone Violeta Boo MD Primary Care Provide r Encounter Details Date Type Department Care Team (Late Contact Info) Description 03/20/2025 Documentation Only [facility] [address] [place] [address] Rowena Knowles [address] [place] [phone] Social History Tobacco Use Types Packs/Day Years [...] [facility] [address] [place] [address] Shailesh Vallejo MD [address] [place] [address] [place] [address] documented as of this encounter Visit Diagnoses Not on filedocumented in this encounter Care Teams Harness Installer Relationship Specialty Start Date End Date Violeta Boo MD [address] [place] [phone] PCP - General Internal Medicine 03/21/23 documented as of this encounter
--- OUTSIDE RECORDS SUMMARY | 2025-10-31 09:19 | XMS_ITS | Encounter Summary ---
Author Organization [employer] Address [address] [facility] [address] [place] [address] Care Team Providers Care Trial Consultant Name Role Phone Violeta Boo MD Primary Care Provide r Encounter Details Date Type Department Care Team (Late Contact Info) Description 04/26/2023 Orders Only [facility] [address] [place], [place] [phone] Brittany Epps LPN Social History Tobacco Use [...] Description 12/10/2025 9:15 AM EST Office Visit [facility] [address] [place], [place] [phone] Violeta Boo MD [address] [place], [place] [phone] documented as of this encounter Procedures Procedure Name Priority Date/Time Associated Diagnosis Comments XR LUMBAR SPINE 2-3 VIEWS Routine 05/05/2023 12:38 PM EDT documented in this encounter Results * XR Lumbar Spine 2-3 Views (05/05/2023 12:38 PM EDT) Anatomical Region Laterality Modality Spine, L-spine Radiographic Rena ging 05/05/2023 12:3 8 PM EDT Narrative 05/17/2023 7:08 PM EDT [address] [address] XRay Report Signed Patient: Violeta Alvarenga V MR#: [id number] : 1950 Acct:[id number] Age/Sex: 72 / F ADM Date: 05/05/23 Loc: HO.XRAY Attending Dr: Violeta Pascual MD Ordering Physician: Violeta Boo MD Date of Service: 05/05/23 Procedure(s): XR lumbar spine 2-3V Accession Number(s): [id number] cc: Violeta Boo MD EXAMINATION: XR LUMBOSACRAL [...] in OV> 05/17/23 1905 DD/ 1238 TD/TT: Inspector Machine Cut Glass: SANA Procedure Note Donotuseinterpreter, Image - 05/17/[address] [address] XRay Report Signed Patient: Violeta Alvarenga VMR#: [id number] : 1950cct:[id number] Age/Sex: 72 / FADM Date: 05/05/23 Loc: HO.XRAY Attending Dr: Violeta Pascual MD Ordering Physician: Violeta Boo MD Date of Service: 05/05/23 Procedure(s): XR lumbar spine 2-3V Accession Number(s): [id number] cc: Violeta Boo MD EXAMINATION: XR LUMBOSACRAL [...] in OV> 05/17/23 1905 DD/ 1238 TD/TT: Inspector Machine Cut Glass: SANA [facility] External Provider IMG XR PROCEDURES Edited Result - Final documented in this encounter Visit Diagnoses Not on filedocumented in this encounter Care Teams Trial Consultant Relationship Specialty Start Date End Date Violeta Boo MD [address] [place] [phone] PCP - General Family Medicine 05/21/22 documented as of this encounter
--- OUTSIDE RECORDS SUMMARY | 2025-10-31 09:19 | XMS_ITS | Encounter Summary ---
Author Organization [facility] Address [address] [facility] [address] [place] [address] Care Team Providers Care Dumpster Operator Name Role Phone Violeta Boo MD Primary Care Provide r Reason for Visit * Reason Comments Med Refill Encounter Details Date Type Department Care Team ([facility] st Contact Info) Description 10/21/2024 Refill [facility] [address] [place] [address] Violeta Boo MD [address] [place] [address] Pain Social History Tobacco Use Types Packs/Day [...] Description 12/10/2025 9:15 AM EST Office Visit [facility] [address] [place] [phone] Violeta Boo MD [address] [place] [phone] documented as of this encounter Visit Diagnoses Diagnosis Pain Generalized pain documented in this encounter Additional Health Concerns Assessment Noted Time PHQ-9 Depression Total Score: 17 024 11:23 AM EDT documented as of this encounter Care Teams Dumpster Operator Relationship Specialty Start Date End Date Violeta Boo MD [address] [place] [phone] PCP - General Family Medicine 05/21/22 documented as of this encounter
--- OUTSIDE RECORDS SUMMARY | 2025-10-31 09:19 | XMS_ITS | Encounter Summary ---
Author Organization [facility] Address [address] [facility] [address] [place] [address] Care Team Providers Care Cementing Machine Operator Name Role Phone Violeta Boo MD Primary Care Provide r Encounter Details Date Type Department Care Team ([facility] Contact Info) Description 11/25/2022 Telephone [facility] [address] [place] [phone] Violeta Boo MD [address] [place], [place] [phone] Social History Tobacco Use Types Packs/Day Years [...] Department Care Team (Late Contact Info) Description 12/10/2025 9:15 AM EST Office Visit [facility] [address] [place] [phone] Violeta Boo MD [address] [place], [place] [phone] documented as of this encounter Visit Diagnoses Not on filedocumented in this encounter Care Teams Cementing Machine Operator Relationship Specialty Start Date End Date Violeta Boo MD [address] [place] [phone] PCP - General Family Medicine 05/21/22 documented as of this encounter
--- OUTSIDE RECORDS SUMMARY | 2025-10-31 09:19 | XMS_ITS | Encounter Summary ---
Author Organization [employer] Address 75 [facility] 7t [place] [address] Care Team Providers Care Fire Prevention Engineer Name Role Phone Violeta Boo MD Primary Care Provide r Encounter Details Date Type Department Care Team ([facility] Contact Info) Description 03/22/2023 Orders Only [facility] [address] [place], [place] [phone] Brittany Epps LPN Social History Tobacco Use [...] Upcoming Encounters Date Type Department Care Team ([facility] Contact Info) Description 12/10/2025 9:15 AM EST Office Visit [facility] [address] [place], [place] [phone] Violeta Boo MD 230 [place], [place] [phone] documented as of this encounter Visit Diagnoses Not on filedocumented in this encounter Care Teams Fire Prevention Engineer Relationship Specialty Start Date End Date Violeta Boo MD 230 [place] [address] PCP - General Family Medicine 05/21/22 documented as of this encounter
--- OUTSIDE RECORDS SUMMARY | 2025-10-31 09:19 | XMS_ITS | Encounter Summary ---
Author Organization [employer] Address 75 [facility] 7t [place] [address] Care Team Providers Care Drum Reel Cutter Name Role Phone Violeta Boo MD Primary Care Provide r Encounter Details Date Type Department Care Team ([facility] st Contact Info) Description 07/20/2024 Telephone [facility] [address] [place] [address] Caden, Angella, OD [address] [place] [address] Social History Tobacco Use Types Packs/Day Years [...] 07/20/2024 3:24 PM EDT Called the Patient CHIEF ADMINISTRATIVE OFFICER Nikita Sneed, to inform her at the [...] Description 12/10/2025 9:15 AM EST Office Visit [facility] 230 [place], [place] [phone] Violeta Boo MD 230 [place] [address] documented as of this encounter Visit Diagnoses Not on filedocumented in this encounter Care Teams Drum Reel Cutter Relationship Specialty Start Date End Date Violeta Boo MD [address] [place] [address] PCP - General Family Medicine 05/21/22 documented as of this encounter
--- OUTSIDE RECORDS SUMMARY | 2025-10-31 09:19 | XMS_ITS | Encounter Summary ---
Author Organization [employer] Address 75 [facility] 7t [place] [address] Care Team Providers Care Roof Bolter Operator Name Role Phone Violeta Boo MD Primary Care Provide r Reason for Visit * Reason Comments Med Refill Encounter Details Date Type Department Care Team ([facility] Contact Info) Description 04/09/2025 Refill [facility] 230 [place] [address] Violeta Boo MD 230 [place] [address] Social History Tobacco Use Types Packs/Day Years [...] Description 12/10/2025 9:15 AM EST Office Visit [facility] [address] [place] [address] Violeta Boo MD [address] [place] [address] documented as of this encounter Visit Diagnoses Not on filedocumented in this encounter Additional Health Concerns Assessment Noted Time PHQ-9 Depression Total Score: 17 024 11:23 AM EDT documented as of this encounter Care Teams Roof Bolter Operator Relationship Specialty Start Date End Date Violeta Boo MD [address] [place] [phone] PCP - General Family Medicine 05/21/22 documented as of this encounter
--- OUTSIDE RECORDS SUMMARY | 2025-10-31 09:19 | XMS_ITS | Encounter Summary ---
Author Organization [employer] Address 75 [facility] 7t [place] [address] Care Team Providers Care Vacuum Drier Operator Name Role Phone Violeta Boo MD Primary Care Provide r Reason for Visit * Reason Onset Date Comments Referral 12/08/2022 Encounter Details Date Type Department Care Team ([facility] st Contact Info) Description 12/08/2022 Telephone [facility] 230 [place] [address] Violeta Boo MD 230 [place] [address] Referral Social History Tobacco Use Types Packs/Day [...] 2:55 PM EST Tc from Oksana with [facility] requesting a new referral for colorectal Surgery at [address] [place] [address] [place] [address]. Oksana stated that a provider from their got in contact With Dr. Berkowitz, and Dr. Berkowitz advised provider that it okay for pt to receive a referral. They are now requesting a new referral from PCP, in order for pt to be ssen. If any question please contact oksana at [phone] documented in this encounter Plan of Treatment Upcoming Encounters Date Type Department Care Team (Late st Contact Info) Description 12/10/2025 9:15 AM EST Office Visit [facility] 230 [place] [address] Violeta Boo MD 230 [place] [address] documented as of this encounter Visit Diagnoses Not on filedocumented in this encounter Care Teams Vacuum Drier Operator Relationship Specialty Start Date End Date Violeta Boo MD [address] [place] [address] [phone] PCP - General Family Medicine 05/21/22 documented as of this encounter
--- OUTSIDE RECORDS SUMMARY | 2025-10-31 09:19 | XMS_ITS | Encounter Summary ---
Author Organization [employer] Address 75 [facility] 7t [place] [address] Care Team Providers Care Print Support Specialist Name Role Phone Violeta Boo MD Primary Care Provide r Reason for Visit * Reason Comments Med Refill Encounter Details Date Type Department Care Team ([facility] st Contact Info) Description 11/02/2024 Refill [facility] 230 [place] [address] Violeta Boo MD 230 [place] [address] Pain Social History Tobacco Use Types Packs/Day [...] Description 12/10/2025 9:15 AM EST Office Visit [facility] [address] [place] [address] Violeta Boo MD [address] [place] [address] documented as of this encounter Visit Diagnoses Diagnosis Pain Generalized pain documented in this encounter Additional Health Concerns Assessment Noted Time PHQ-9 Depression Total Score: 17 024 11:23 AM EDT documented as of this encounter Care Teams Print Support Specialist Relationship Specialty Start Date End Date Violeta Boo MD [address] [place] [address] PCP - General Family Medicine 05/21/22 documented as of this encounter
--- OUTSIDE RECORDS SUMMARY | 2025-10-31 09:19 | XMS_ITS | Encounter Summary ---
Author Organization [employer] Address 75 [facility] 7t [place] [address] Care Team Providers Care Street Supervisor Name Role Phone Violeta Boo MD Primary Care Provide r Reason for Visit * Reason Onset Date Comments Med Refill 10/25/2024 Encounter Details Date Type Department Care Team ([facility] st Contact Info) Description 10/25/2024 Telephone [facility] 230 [place] [address] Violeta Boo MD 230 [place] [address] Med Refill Social History Tobacco Use Types [...] Description 12/10/2025 9:15 AM EST Office Visit [facility] 230 [place] [address] Violeta Boo MD 230 [place] [address] documented as of this encounter Visit Diagnoses Not on filedocumented in this encounter Additional Health Concerns Assessment Noted Time PHQ-9 Depression Total Score: 17 08/13/ 024 11:23 AM EDT documented as of this encounter Care Teams Street Supervisor Relationship Specialty Start Date End Date Violeta Boo MD 230 [place] [address] PCP - General Family Medicine 05/21/22 documented as of this encounter
--- OUTSIDE RECORDS SUMMARY | 2025-10-31 09:20 | XMS_ITS | Clinical Summary ---
Author Organization 175 [facility] Address 175 [place] [address] Phone Care Team Providers Care Retail And Promotions Coordinator Name Role Phone Violeta Boo MD [...] exercise, life style modifications, diet, referral to property specialist. Discussed re lower calorie intake, increase dietary fiber Pt agreed to be referred to dietitian. Non-cardiac chest pain 08/08/2018 Seasonal allergies 08/08/2018 Unintended awareness under g eneral anesthesia during procedure 08/08/2018 Encounters Date Type Department Care Team Description 10/21/2025 2:00 PM [facility] Nutrition Bariatric Surgery - [address] [place] [phone] Elana Aviles, CORAL Class 3 severe obesity with serious comorbidity and body mass index (BMI) of 45.0 to 49.9 in adult, unspecified obesity type (CMS/HCC V24, CMS/HCC V28) (Primary Dx) from Last 3 Months Immunizations Immunization Administration [...] - Inhaled Oxygen Concentration - - Weight 121 kg (267 lb) 10/21/2025 2:12 PM EST Height 160 cm (5' 3 ) 07/18/2025 11:11 AM EDT Body Mass Index 47.3 07/18/2025 11:11 AM EDT Plan of Treatment Upcoming Encounters Date Type Department Care Team (Late st Contact Info) Description 12/03/2025 11:00 AM EST Nutrition Bariatric Surgery - [place] [address] [phone] Elana Aviles, RD [address] [phone] 12/25/2025 9:45 AM EST Office Visit Orthopedic Surgery - [place] [address] [phone] Maury Godoy DPM 175 [facility] 250 [place] [address] Health Maintenance Due Date Last Done Comments Breast Cancer Screening 1952 Colorectal Cancer Screening: Colonoscopy 1952 Diabetes: Annual Foot Exam 1962 Diabetes: Annual Retina Eye Exam 1962 RSV Immunization Adult Patients (1 - Risk 50-74 years 1-dose series) 2002 Falls Risk Assessment 10/24/2022 Medicare Annual Wellness Visit 10/24/2022 Social Influencers of Health Screening 10/24/2022 DTaP,Tdap,and Td Vaccines (2 - Td or Tdap) 01/29/2023 01/29/2013 Diabetes: Annual Urine Albumin-Creatinine Ratio (uACR) 12/17/2023 Depression Screening 11/14/2024 Diabetes: Blood Sugar Control Test (HGBA1C) 01/23/2026 07/26/2025, 05/15/2025, 04/07/2023, Additional history exists COVID-19 Vaccine (7 - Pfizer risk 2024- season) 2026 08/22/2025, 08/13/2024, 09/07/2023, Additional history exists Diabetes: Annual GFR (Glomerular Filtration Rate) 05/30/2026 05/30/2025, 05/23/2025, 03/01/2024 Hypertension/CHF/CAD Annual BMP Blood Test 05/30/2026 05/30/2025, 05/23/2025, 03/01/2024 Cholesterol Screening (Lipid Panel) 05/30/2030 05/30/2025, 03/15/2022 Osteoporosis Screening (Bone Density Screening) 03/19/2035 03/19/2025 Zoster Vaccines Completed 11/29/2019, 07/2019, 01/14/2015 Pneumococcal Vaccine: 50+ Years Completed 08/13/2024, 03/19/2019, 12/12/2017, Additional history exists Hepatitis C Screening Completed 05/30/2025 Influenza Vaccine Completed 08/22/2025, , 09/07/2023, Additional [...] Date/Time Associated Diagnosis Comments HEMOGLOBIN A1C Routine 07/26/2025 10:44 AM EDT Morbid obesity with BMI of 45.0-49.9, adult (CMS/[facility] V24, CMS/[facility] V28) ANNUAL BMP BLOOD TEST Routine 03/01/2024 LIPID PANEL Routine 03/15/2022 from Last 3 Months or Most Recently Relevant to Health Maintenance Results * Hemoglobin A1c (07/26/2025 10:44 AM EDT) Hemoglobin A1C 5.7 <6.5 % LAB CHEMISTRY METHOD 07/26/2025 8:51 PM EDT [facility] Mean Bld Glu Estim. 117 mg/dL LAB CHEMISTRY METHOD 07/26/2025 8:51 PM EDT [facility] Blood Venous blood specimen / Unknown Venipuncture / Unknown 07/26/2025 10:44 AM EDT 07/26/2025 10:44 AM EDT us Lauren Eisenberg MD LAB BLOOD ORDERABLES Fi nal Result [facility] [address] [place] [address], * Annual BMP Blood Test (03/01/2024) Annual BMP Blood Test Abstracted Historical Provider HEALTH MAINTENANCE Final Result * Lipid panel [...] Most Recently Relevant to Health Maintenance Insurance [facility] OPT[employer] Member Subscriber Plan / Payer (Ef fective 2025-Present) Name:Violeta Barajas Relation to Subscriber:Self Name:Violeta Barajas Payer ID:[id number] Group ID:[id number] Type:Not on file Address: [facility] [address] [phone] Care Teams Retail And Promotions Coordinator Relationship Specialty Start Date End Date Violeta Boo MD [address] [phone] PCP - General 03/29/23
--- OUTSIDE RECORDS SUMMARY | 2025-10-31 09:20 | XMS_ITS | Encounter Summary ---
Author Organization [facility] Address [address] [place] [address] 7t [place] [address] Care Team Providers Care Traveling Operator Name Role Phone Violeta Boo MD Primary Care Provide r Encounter Details Date Type Department Care Team (Latest Contact Info) Description 05/27/2022 Abstract [facility] CONVERSIONS Dental, Provider, DDS Social [...] Description 12/10/2025 9:15 AM EST Office Visit [facility] MEDICINE 230 [place] [address] Violeta Boo MD [address] [place] [address] documented as of this encounter Visit Diagnoses Not on filedocumented in this encounter Care Teams Traveling Operator Relationship Specialty Start Date End Date Violeta Boo MD 230 [place] [address] PCP - General Family Medicine 05/21/22 documented as of this encounter
--- OUTSIDE RECORDS SUMMARY | 2025-10-31 09:20 | XMS_ITS | Encounter Summary ---
Author Organization [employer] Address 75 [facility] 7t [place] [address] Care Team Providers Care Roll Reclaimer Name Role Phone Violeta Boo MD Primary Care Provide r Reason for Visit * Reason Onset Date Comments Reasonable Accommodation Request 10/25/2022 I called regarding a reasonable accommodation form, from [facility] [employer]. The pt states that she will be getting a scooter, because she is no longer able to use a cane or a walker. She is requesting an apartment with elevator accessibility, because it would be easier for her to get in and out of her apartment. Encounter Details Date Type Department Care Team ([facility] Contact Info) Description 10/25/2022 Telephone [facility] [address] [place], [place] [phone] [place], [place] Reasonable Accommodation Request (I called regarding a reasonable accommodation form, from [employer]. The pt states that she will be [...] Upcoming Encounters Date Type Department Care Team ([facility] Contact Info) Description 12/10/2025 9:15 AM EST Office Visit [facility] [address] [place] [address] Violeta Boo MD 230 [place] [address] documented as of this encounter Visit Diagnoses Not on filedocumented in this encounter Care Teams Roll Reclaimer Relationship Specialty Start Date End Date Violeta Boo MD [address] [place] [address] PCP - General Family Medicine 05/21/22 documented as of this encounter
--- OUTSIDE RECORDS SUMMARY | 2025-10-31 09:20 | XMS_ITS | Encounter Summary ---
Author Organization [employer] Address 75 [facility] 7t [place] [address] Care Team Providers Care Editor Department Name Role Phone Violeta Boo MD Primary Care Provide r Reason for Visit * Reason Onset Date Comments paperwork 10/17/2025 Durable Medical Equipment 10/17/2025 DME: [employer] Form Encounter Details Date Type Department Care Team (Late st Contact Info) Description 10/17/2025 Telephone [facility] [address] [place] [address] Violeta Boo MD 230 [place] [address] paperwork; Durable Medical Equipment (DME: [employer] Form) Social History Tobacco Use Types Packs/Day Years [...] * Telephone Encounter - Rubia Cain - 10/28/2025 2:27 PM EST Signed forms were sent via FAX to [employer]. Confirmation was uploaded to Media. * Telephone Encounter - Lorri Spence - 10/28/2025 1:51 PM EST Tc from [employer] requesting update on forms faxed . Contact Briseida at [phone] * Telephone Encounter - Rubia Cain - 10/17/2025 4:01 PM EST [employer] Form was sent to Provider via [employer] for signature. * Telephone Encounter - Lorri Spence - 10/17/2025 3:08 PM EST Tc from [employer] requesting for paperwork faxed be reviewed and signed by pcp , faxed back urgently Contact at [phone] documented in this encounter Plan of Treatment Upcoming Encounters Date Type Department Care Team (Late st Contact Info) Description 12/10/2025 9:15 AM EST Office Visit [facility] [address] [place] [address] Violeta Boo MD [address] [place] [address] documented as of this encounter Visit Diagnoses Not on filedocumented in this encounter Additional Health Concerns Assessment Noted Time PHQ-9 Depression Total Score: 17 024 11:23 AM EDT documented as of this encounter Care Teams Editor Department Relationship Specialty Start Date End Date Violeta Boo MD [address] [place] [address] PCP - General Family Medicine 05/21/22 documented as of this encounter
--- OUTSIDE RECORDS SUMMARY | 2025-10-31 09:20 | XMS_ITS | Encounter Summary ---
Author Organization [facility], Address [address] [place] [address] Phone Care Team Providers Care Stab Setter And Driller Name Role Phone Violeta Boo MD Primary Care Provide r Encounter Details Date Type Department Care Team (Late Contact Info) Description 03/15/2022 Documentation Only [facility] [address] [place] [address] Shailesh Vallejo MD [address] [place] [address] [place] [address] Social History Tobacco Use Types [...] [facility] [address] [place] [address] Shailesh Vallejo MD [address] [place] [address] [place] [address] documented as of this encounter Visit Diagnoses Not on filedocumented in this encounter Care Teams Stab Setter And Driller Relationship Specialty Start Date End Date Violeta Boo MD [address] [place] [phone] PCP - General Internal Medicine 03/21/23 documented as of this encounter
--- OUTSIDE RECORDS SUMMARY | 2025-10-31 09:20 | XMS_ITS ---
Author Name Tarsha HOGANC, MRS. Abad Address [address] [place] [address] Phone [phone] [facility] Care Team Providers Care Android Ios Developer Name Role Phone Jenniffer Willingham Unavailable [phone] SARAH CRONIN Unavailable [phone] Agueda Sarah Unavailable [phone] Unavailable Unavailable [phone] Kailey Melo Unavailable [phone] Unavailable Unavailable Unavailable Cristo Garcia Unavailable [phone] Unavailable Unavailable [phone] Gideon Frost Unavailable [phone] Unavailable Unavailable Unavailable Unavailable Unavailable Unavailable Unavailable Unavailable [phone] WALTER ROBERT Unavailable [phone] Nirav Anthony Unavailable [phone] Unavailable Unavailable [phone] Unavailable Unavailable [phone] Reason for Referral Not Available Allergies, adverse reactions, alerts Allergen Type Reaction Severity Status Onset Date Aspirin Allergy to substance (disorder) Unknown Active N/A Iodinated Contrast Media Allergy to subs tance (disorder) Unknown Active N/A History of medication use Medication Class Instructions Start Date End Date Cetirizine 10 mg Tab TAKE 1 TABLET BY [facility] ONCE 2 HOURS BEFORE EXAM WITH METHYLPREDNISOLONE 2022-10-28 2023-04-07 methylPREDNISolone 32 mg Tab TAKE 1 TABL ET BY MOUTH 12 HOURS BEFORE EXAM AND TAKE 1 TABLET 2 HOURS BEFORE EXAM 2022-10-28 2023-04-07 Sertraline 50 mg Tab TAKE 1 TABLET BY [facility] EVERY MORNING WITH 100 MG TABLET 2022-08-25 [...] AREA(S) EVERY MORNING 2022-12-16 No Data Available [id number] 3 TO 4 DROPS INTO [...] 25 mg Cap TAKE [address] 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;Peripheral vascular [...] appt with PCP for medication review and mortgage loan processing clerk for further eval such as possible [...] to ENTCN to assist Unspecified atherosclerosis of [place] arteries of extremities, bilateral legs Active 2023-03-16 1 N/A StablestatinMD portal notes, I70.203 - Unspecified atherosclerosis of [place] arteries of extremities, bilateral legs Hemorrhoids Active [...] support person: son / Transfer member to [address] [place] [address]/ Quetiapine 50mg PO q12h PRN agitation/ Remind member of breathing exercises/ Encourage member to journal feelings/ Limit extra stimulation Mixed stress and urge urinar y incontinence Active 7 N/A StableUses adult pullups Size: XL (5 per day)Gloves: Large - 2 boxes Wipes: 4 packs monthly Monitor for urinary changes or UTI s/sx and continue with PCP.-Member provided with [facility] incontinence refill line: [phone] Morbid obesity Active 9 N/A BMI: 46.26Emphasized importance on diet modifications including calorie restricted low-cholesterol low-fat diet advised. Exercise encouraged. Chronic back painLumbar spin al stenosis Somatoform pain disorder Active 0 8 N/A Orthopedic Surgery [facility] 250-Maury Godoy DPM02/20/25Does not have PT in place after back surgery? Dr. Pascual (PCP) has ordered azar [address] [phone] referral to OT or PT for Tanesha [...] for medication review-discussed following up with her mortgage loan processing clerk for eval, i.e need for echo-advised [...] (do not use for phone, instead use 53463-22) [facility] [place] 04[place]2023 Noninfective gastroenteritis [...] sitesSacroiliitis, not elsewhere classifiedAthscl heart disease of [place] cor art w unsp ang pctrsPeripheral vascular disease, unspecified New patient,40-59min; chronic exacerbation, 2 stable chronic or 1 acute illness add add modifier 95 for video (do not use for phone, instead use 70158-74) [facility] [place] New patient,40-59min; chronic exacerbation, 2 stable chronic or 1 acute illness add add modifier 95 for video (do not use for phone, instead use 46930-36) [facility] New patient,40-59min; chronic exacerbation, 2 stable chronic or 1 acute illness add add modifier 95 for video (do not use for phone, instead use 52835-20) [facility] New patient,40-59min; chronic exacerbation, 2 stable chronic or 1 acute illness add add modifier 95 for video (do not use for phone, instead use 65964-40) [facility] 04[place]/20[place] New patient,40-59min; chronic exacerbation, 2 stable chronic or 1 acute illness add add modifier 95 for video (do not use for phone, instead use 79415-57) [facility] 04[place] New patient,40-59min; chronic exacerbation, 2 stable chronic or 1 acute illness add add modifier 95 for video (do not use for phone, instead use 86778-70) [facility] New patient,40-59min; chronic exacerbation, 2 stable chronic or 1 acute illness add add modifier 95 for video (do not use for phone, instead use 38478-16) [facility] New patient,40-59min; chronic exacerbation, 2 stable chronic or 1 acute illness add add modifier 95 for video (do not use for phone, instead use 82176-71) [facility] 04/07/2023 Unlisted special service; to be used for medical record reviews and reporting CPTII codes (1111F, etc) [facility] 07/01/2023 Other specified counseling Unlisted special service; to be used for medical record reviews and reporting CPTII codes (1111F, etc) [facility] [place] 07/01/2023 Unlisted special service; to be used for medical record reviews and reporting CPTII codes (1111F, etc) [facility] [place] 07/01/2023 No Data Available [facility] [place] 08/10/2023 Body mass index (BMI) 45.0-4 9.9, adultPrediabetesMorbid (severe) obesity due to excess caloriesTinea unguiumLumbago with sciatica, left sideLumbago with sciatica, right sideOther chronic painOther intervertebral disc degeneration, lumbar region No Data Available [facility] [place] 08/10/2023 No Data Available [facility] [place] 08/10/2023 No Data Available [facility] [place] 10/21/2023 Dorsalgia, unspecifiedOther chronic painMorbid (severe) obesity due to excess caloriesOther specified personal risk factors, not elsewhere classified No Data Available [facility] [place] 10/21/2023 Estab. patient 30-39min; chronic exacerbation, 2 stable chronic or 1 acute illness add add modifier 95 for video, (do not use for phone, instead use 17774-85) [facility] [place] 05/11/2024 Type 2 diabetes mellitus wit h diabetic chronic kidney diseaseChronic kidney disease, stage 3bRepeated fallsUnspecified hearing loss, left earTinnitus, left earUnspecified hemorrhoidsOther specified postprocedural statesLumbago with sciatica, left sideLumbago with sciatica, right sideOther chronic painOther intervertebral disc degeneration, lumbar regionIdiopathic chronic gout, unspecified site, without tophus (tophi)Polyosteoarthritis, unspecifiedSchizophrenia, unspecifiedAthscl heart disease of [place] cor art w unsp ang pctrsType 2 diabetes w diabetic peripheral angiopath w/o gangreneUnsp athscl [place] arteries of extremities, bilateral legsChronic obstructive pulmonary [...] (do not use for phone, instead use 49011-80) [facility] [place] 05/11/2024 Estab. patient 30-39min; chronic exacerbation, 2 stable chronic or 1 acute illness add add modifier 95 for video, (do not use for phone, instead use 21793-78) [facility] [place] 05/11/2024 Estab. patient 30-39min; chronic exacerbation, 2 stable chronic or 1 acute illness add add modifier 95 for video, (do not use for phone, instead use 60720-10) [facility] [place] 05/11/2024 Estab. patient 30-39min; chronic exacerbation, 2 stable chronic or 1 acute illness add add modifier 95 for video, (do not use for phone, instead use 84640-23) [facility] [place] 05/11/2024 Estab. patient 30-39min; chronic exacerbation, 2 stable chronic or 1 acute illness add add modifier 95 for video, (do not use for phone, instead use 34998-71) [facility] [place] 05/11/2024 Estab. patient 30-39min; chronic exacerbation, 2 stable chronic or 1 acute illness add add modifier 95 for video, (do not use for phone, instead use 75290-50) [facility] [place] 05/11/2024 No Data Available [facility] [place] 05/14/2024 Type 2 diabetes mellitus wit h diabetic chronic kidney diseaseChronic kidney disease, stage 3b No Data Available [facility] 05[place]14/2024 No Data Available [facility] 06[place]/2024 Type 2 diabetes mellitus wit h diabetic chronic kidney diseaseChronic kidney disease, stage 3b No Data Available [facility] [place] 06/20/2024 Unlisted special service; to be used for medical record reviews and reporting CPTII codes (1111F, etc) [facility] [place] 09/04/2024 Other specified counseling Unlisted special service; to be used for medical record reviews and reporting CPTII codes (1111F, etc) [facility] [place] 09[place]04/2024 Unlisted special service; to be used for medical record reviews and reporting CPTII codes (1111F, etc) [facility] [place] 09/04/2024 Estab. patient 10-29min; 1 minor problem; add add modifier 95 for video, modifier 93 for phone [facility] [place] 12/18/2024 Type 2 diabetes mellitus wit h diabetic chronic kidney diseaseChronic kidney disease, stage 3bMorbid (severe) obesity due to excess caloriesBody mass index (bmi) 50-59.9 , adult Estab. patient 10-29min; 1 minor problem; add add modifier 95 for video, modifier 93 for phone [facility] [place] 12/18/2024 Estab. patient 10-29min; 1 minor problem; add add modifier 95 for video, modifier 93 for phone [facility] [place] 12/18/2024 Estab. patient 20-29min; 1 stable chronic or 2 minor; add add modifier 95 for video, modifier 93 for phone [facility] [place] 02/18/2025 Noninfective gastroenteritis and colitis, unspecifiedRepeated [...] to conditions classified elsewhereAthscl heart disease of [place] cor art w unsp ang pctrsPeripheral vascular disease, unspecifiedUnsp athscl [place] arteries of extremities, bilateral legsChronic obstructive pulmonary [...] 95 for video, modifier 93 for phone [facility] [place] 02/18/20[place] Estab. patient 20-29min; [...] 95 for video, modifier 93 for phone [facility] [place] 02/18/2025 Estab. patient 20-29min; 1 stable chronic or 2 minor; add add modifier 95 for video, modifier 93 for phone [facility] [place] 02/18/2025 Estab. patient [...] 95 for video, modifier 93 for phone [facility], [place] 07/03/2025 Dizziness and giddinessEssen tial (primary) hypertensionRepeated [...] 95 for video, modifier 93 for phone [facility] [place] 07[place]03[place]20[place] Estab. patient 10-29min; 1 minor problem; add add modifier 95 for video, modifier 93 for phone [facility] [place] 07/03/2025 Estab. patient 10-29min; 1 minor problem; add add modifier 95 for video, modifier 93 for phone [facility] [place] 07/03/2025 Estab. patient 10-29min; 1 minor problem; add add modifier 95 for video, modifier 93 for phone [facility] [place] 07/03/2025 Vital Signs Date of Collection [...] tive Time Current Smoking Status Never smoker 2025-10-14 8 Sex Female Gender identity Woman History of Procedures Procedures Service Procedure code Service date Servicing provider Phone# New patient,40-59min; chronic exacerbation, 2 stable chronic or 1 acute illness add add modifier 95 for video (do not use for phone, instead use 67441-92) 43836 2023-04-07 No Data Available No Data Availa [...] reviews and reporting CPTII codes (1111F, etc) 38275 2023-07-01 No Data Available No Data Availa ble SBP < 130 (3074F) 3074F 2023-07-01 No Data Available No Data Available DBP <80 (3078F) 3078F 2023-07-01 No Data Available No Data Available No Data Available 62932 2023-08-10 No Data Available No Data Available Medication List Documented (1159F) 1159F 2023-08-10 No Data Available No Data Lena ilable BMI obtained (3008F) 3008F 2023-08-10 No Data Availab le No Data Available No Data Available 40543 2023-10-21 No Data Available No Data Available Medication List Documented (1159F) 1159F 2023-10-21 No Data Available No Data Lena ilable Estab. patient 30-39min; chronic exacerbation, 2 stable chronic or 1 acute illness add add modifier 95 for video, (do not use for phone, instead use 91196-82) 16928 2024-05-11 No Data Available No Data Availa [...] Available No Data Available No Data Available 36590 2024-05-14 No Data Available No Data Available Medication List Documented (1159F) 1159F 2024-05-14 No Data Available No Data Lena ilable No Data Available 66510 2024-06-20 No Data Available No Data Available Medication List Documented (1159F) 1159F 2024-06-20 No Data Available No Data Lena ilable Unlisted special service; to be used for medical record reviews and reporting CPTII codes (1111F, etc) 08848 2024-09-04 No Data Available No Data Availa ble SBP >= 140 3077F 2024-09-04 No Data Available No Data Available DBP >=90 3080F 2024-09-04 No Data Available No Data Available Estab. patient 10-29min; 1 minor problem; add add modifier 95 for video, modifier 93 for phone 07420 2024-12-18 No Data Available No Data Availa ble Medication List Documented (1159F) 1159F 2024-12-18 No Data Available No Data Lena ilable BMI obtained (3008F) 3008F 2024-12-18 No Data Availab le No Data Available Estab. patient 20-29min; 1 stable chronic or 2 minor; add add modifier 95 for video, modifier 93 for phone 82691 2025-02-18 No Data Available No Data Availa [...] 95 for video, modifier 93 for phone 51865 2025-02-20 No Data Available No Data Availa ble Pain Assessment - Pain Documented on a Pain Scale (1125F) 1125F 2025-02-20 No Data Available No Data Lena ilable Estab. patient 10-29min; 1 minor problem; add add modifier 95 for video, modifier 93 for phone 20140 2025-07-03 No Data Available No Data Availa [...] rheumatoid factor, multiple sitesAtherosclerotic heart disease of [place] coronary artery with unspecified angina pectoris;Peripheral vascular [...] discChronic gouty arthritis;Generalized osteoarthritisSchizophreniaAtherosclerotic heart disease of [place] coronary artery with unspecified angina pectoris;Peripheral vascular disease, unspecifiedUnspecified atherosclerosis of [place] arteries of extremities, bilateral legsChronic obstructive pulmonary [...] to conditions classified elsewhereAtherosclerotic heart disease of [place] coronary artery with unspecified angina pectoris;Peripheral vascular disease, unspecifiedUnspecified atherosclerosis of [place] arteries of extremities, bilateral legsChronic obstructive pulmonary [...] for weight clinic - also [place]ocr [place] [facility] [place] to podiatry per pt request.Also needs [...] area that had available staff.Pt to call [facility] and get name of PT providers in her area that are covered.Will investigate weight loss clinics.Pt to look for back exercises on YouTube, activity as tolerated.Will FU.BMI 49.25send to weight clinic but not [place]referral for weight clinic - also [place]ocr [place] [facility] [place] [place]/2023Have not been able to find clinic that is covered by [facility] in er area. Pt to call [facility] and find list of names of [...] portal notes, I70.203 - Unspecified atherosclerosis of [place] arteries of extremities, bilateral legs continues to take albuterol sulfatePlease call CB ifIncreased SOB,or if patient falls.Pain that radiates to vaginaHas seen PCPhas referral to GI but is going to cancelEd not to cancel, get transportBMI 52.08send to weight clinic but not [place]/2023referral for weight clinic - also [facility] [place] [facility] [place]23Have not been able to find clinic that is covered by [facility] in er area. Pt to call [facility] and find list of names of [...] area that had available staff.Pt to call [facility] and get name of PT providers [...] our conversation of three days ago. Her MACHINIST BRAKE is supposed to go tonight or tomorrow [...] modifier 95)Continue to see PCP. Follow-up with [facility] as needed for any acute or [...] our conversation of three days ago. Her MACHINIST BRAKE is supposed to go tonight or tomorrow [...] for phoneContinue to see PCP. [facility] for any acute or disease [...] our conversation of three days ago. Her MACHINIST BRAKE is supposed to go tonight or tomorrow [...] for weight clinic - also [facility]ocr [place] [facility]/21/2023Have not been able to find clinic that is covered by [facility] in er area. Pt to call [facility] and find list of names of [...] support person: son / Transfer member to [address] [place] [address]/ Quetiapine 50mg PO q12h PRN agitation/ Remind [...] weight lossWill be sending to endo/weight loss clinicStablestatinNM portal notes, I70.203 - Unspecified atherosclerosis of [place] arteries of extremities, bilateral legs Stablealbuterol sulfateMonitor [...] with GLP1 and f/u with PCPOrthopedic Surgery [facility] 250-GodoyTerrancegennaromarsha Williamson, DPM02/20/25Does not have PT in place after back surgery? Dr. Pascual (PCP) has ordered walker [facility] [id number] [facility] [place], [place] [phone] referral to OT or PT for Tanesha [...] for medication review-discussed following up with her mortgage loan processing clerk for eval, i.e need for echo-advised [...] appt with PCP for medication review and mortgage loan processing clerk for further eval such as possible [...] s/sx and continue with PCP.-Member provided with [facility] incontinence refill line: [phone] 5.9% (08/22/24)Ha1c: 5.7% (05/15/2025- outside care)eGFR: 37 [...]
--- OUTSIDE RECORDS SUMMARY | 2025-10-31 09:20 | XMS_ITS | Encounter Summary ---
Author Organization [employer] Address [address] [facility] [address] [place] [address] Care Team Providers Care Oral Health Therapist Name Role Phone Violeta Boo MD Primary Care Provide r Encounter Details Date Type Department Care Team ([facility] st Contact Info) Description 05/22/2025 Orders Only [facility] [address] [place] [address] Violeta Boo MD [address] [place] [address] Social History Tobacco Use Types Packs/Day Years [...] Description 12/10/2025 9:15 AM EST Office Visit [facility] [address] [place] [phone] Violeta Boo MD [address] [place] [address] documented as of this encounter Visit Diagnoses Not on filedocumented in this encounter Additional Health Concerns Assessment Noted Time PHQ-9 Depression Total Score: 17 024 11:23 AM EDT documented as of this encounter Care Teams Oral Health Therapist Relationship Specialty Start Date End Date Violeta Boo MD [address] [place] [address] PCP - General Family Medicine 05/21/22 documented as of this encounter
--- OUTSIDE RECORDS SUMMARY | 2025-10-31 09:20 | XMS_ITS | Encounter Summary ---
Author Organization [employer] Address [address] [facility] [address] [place] [address] Care Team Providers Care It Consulting Manager Name Role Phone Violeta Boo MD Primary Care Provide r Reason for Visit * Reason Comments Med Refill Encounter Details Date Type Department Care Team ([facility] st Contact Info) Description 11/18/2022 Refill [facility] [address] [place], [place] [phone] Betsy Simmons CNM [address] [facility] [place] [address] Social History Tobacco Use Types Packs/Day Years [...] No answer, left V/M. Will retask to anchor nurses for second attempt * Telephone Encounter [...] Office Visit [facility] [address] [place] [address] Violeta Boo MD [address] [place] [address] documented as of this encounter Visit Diagnoses Not on filedocumented in this encounter Care Teams It Consulting Manager Relationship Specialty Start Date End Date Violeta Boo MD [address] [place] [address] PCP - General Family Medicine 05/21/22 documented as of this encounter
--- OUTSIDE RECORDS SUMMARY | 2025-10-31 09:21 | XMS_ITS | Encounter Summary ---
Author Organization [facility] Address [address] [place] [address] Phone Care Team Providers Care Plane Tender Name Role Phone Violeta Boo MD Primary Care Provide r Encounter Details Date Type Department Care Team (Late Contact Info) Description 10/22/2022 Documentation Only [facility] [address] [place] [address] Jazmin Powell PA [address] [place] [address] [place] [address] Social History Tobacco Use Types [...] [facility] [address] [place] [address] Shailesh Vallejo MD [address] [facility] [place] [address] documented as of this encounter Visit Diagnoses Not on filedocumented in this encounter Care Teams Plane Tender Relationship Specialty Start Date End Date Violeta Boo MD [address] [place] [phone] PCP - General Internal Medicine 03/21/23 documented as of this encounter
--- OUTSIDE RECORDS SUMMARY | 2025-10-31 09:21 | XMS_ITS | Encounter Summary ---
Author Organization [facility], Address [address] [place] [address] Phone Care Team Providers Care Tongue Trimmer Name Role Phone Violeta Boo MD Primary Care Provide r Encounter Details Date Type Department Care Team (Late Contact Info) Description 08/27/2024 Documentation Only [facility] [address] [facility] [address] [place] [address] Rowena Knowles [address] [place] [phone] Social History Tobacco Use Types Packs/Day Years [...] Visit [facility], [address] [address] Shailesh Vallejo MD [address] [place] [address] [place] [address] documented as of this encounter Visit Diagnoses Not on filedocumented in this encounter Care Teams Tongue Trimmer Relationship Specialty Start Date End Date Violeta Boo MD [address] [place] [phone] PCP - General Internal Medicine 03/21/23 documented as of this encounter
--- OUTSIDE RECORDS SUMMARY | 2025-10-31 09:21 | XMS_ITS | Encounter Summary ---
Author Organization [facility] Address [address] [place] [address] Phone Care Team Providers Care Electromagnet Crane Operator Name Role Phone Violeta Boo MD Primary Care Provide r Encounter Details Date Type Department Care Team (Late Contact Info) Description 12/24/2022 Documentation Only [facility] [address] [place] [address] Jazmin Powell PA [address] [place] [address] [place] [address] Social History Tobacco Use Types [...] Visit [facility] [address] [place] [address] Shailesh Vallejo MD [address] [facility] [place] [address] documented as of this encounter Visit Diagnoses Not on filedocumented in this encounter Care Teams Electromagnet Crane Operator Relationship Specialty Start Date End Date Violeta Boo MD [address] [place] [phone] PCP - General Internal Medicine 03/21/23 documented as of this encounter
--- OUTSIDE RECORDS SUMMARY | 2025-10-31 09:21 | XMS_ITS | Encounter Summary ---
Author Organization [facility] Address [address] [place] [address] Phone Care Team Providers Care Lens Grinder Apprentice Name Role Phone Violeta Boo MD Primary Care Provide r Encounter Details Date Type Department Care Team (Late Contact Info) Description 03/22/2023 Documentation Only [facility] [address] [place] [address] Jazmin Powell PA [address] [place] [address] [place] [address] Social History Tobacco Use Types [...] Visit [facility] [address] [place] [address] Shailesh Vallejo MD [address] [place] [address] [place] [address] documented as of this encounter Visit Diagnoses Not on filedocumented in this encounter Care Teams Lens Grinder Apprentice Relationship Specialty Start Date End Date Violeta Boo MD [address] [place] [phone] PCP - General Internal Medicine 03/21/23 documented as of this encounter
--- OUTSIDE RECORDS SUMMARY | 2025-10-31 09:21 | XMS_ITS | Encounter Summary ---
Author Organization [facility] [place], Address [address] [place] [address] Phone Care Team Providers Care Branch Sales And Service Representative Name Role Phone Viloeta Boo MD Primary Care Provide r Encounter Details Date Type Department Care Team (Late Contact Info) Description 05/05/2022 Documentation Only [facility] [address] [place] [address] Shailesh Vallejo MD [address] [place] [address] [place] [address] Social History Tobacco Use Types [...] Visit [facility] [address] [place] [address] Shailesh Vallejo MD [address] [place] [address] [place] [address] documented as of this encounter Visit Diagnoses Not on filedocumented in this encounter Care Teams Branch Sales And Service Representative Relationship Specialty Start Date End Date Violeta Boo MD [address] [place] [phone] PCP - General Internal Medicine 03/21/23 documented as of this encounter
--- OUTSIDE RECORDS SUMMARY | 2025-10-31 09:21 | XMS_ITS | Clinical Summary ---
Author Organization [facility] [place], Address [address] [place] [address] [place] [address] Phone Care Team Providers Care Instructional Support Assistant Name Role Phone Violeta Boo MD [...] Diagnosed Date Resolved Date Gout 02/12/2020 06/15/2021 assisted use of nonsteroida l antiinflammatories 02/12/2020 06/15/2021 [...] Visit [facility] [place], [address] [facility] [place] [address] Shailesh Vallejo MD [address] [place] [address] [place] [address] Health Maintenance Due Date Last Done Comments [...] AM EST) Hemoglobin A1C 7.1(H) (4.0-5.6) % [facility] Comment: MONITORING: In known diabetic patients, hemoglobin A1c targets should be discussed with health care provider. DIAGNOSTIC USE: The [place] [employer] (ADA) and the World Health [...] Supplement 1 Testing performed or reported by [facility], a Service of [facility], [address] [place] [address] Yana Bales MD, [employer] [facility]# [id number] Blood specimen (specimen) Venous blood / Unknown 10/20/2022 9:21 AM EST 10/20/2022 9:22 AM EST us Shailesh Vallejo MD LAB BLOOD ORDERABLES Final Resul t [facility] from Last 3 Months or Most Recently Relevant to Health Maintenance Insurance [facility] ([id number]) Care Teams Instructional Support Assistant Relationship Specialty Start Date End Date Violeta Boo MD [address] [place] [phone] PCP - General Internal Medicine 03/21/23
--- OUTSIDE RECORDS SUMMARY | 2025-10-31 09:21 | XMS_ITS | Encounter Summary ---
Author Organization [facility] [place], Address [address] [place] [address] Phone Care Team Providers Care Security Representative Name Role Phone Violeta Boo MD Primary Care Provide r Encounter Details Date Type Department Care Team (Late Contact Info) Description 05/05/2022 Documentation Only [facility] [address] [place] [address] Shailesh Vallejo MD [address] [place] [address] [place] [address] Social History Tobacco Use Types [...] [facility] [address] [place] [address] Shailesh Vallejo MD [address] [place] [address] [place] [address] documented as of this encounter Visit Diagnoses Not on filedocumented in this encounter Care Teams Security Representative Relationship Specialty Start Date End Date Violeta Boo MD [address] [place] [phone] PCP - General Internal Medicine 03/21/23 documented as of this encounter
--- OUTSIDE RECORDS SUMMARY | 2025-10-31 09:21 | XMS_ITS | Encounter Summary ---
Author Organization [facility] [place], Address [address] [place] [address] Phone Care Team Providers Care Manager Print Name Role Phone Violeta Boo MD Primary Care Provide r Encounter Details Date Type Department Care Team (Late Contact Info) Description 02/13/2024 Documentation Only [facility] [address] [place] [address] Rowena Knowles [address] [place] [phone] Social History Tobacco Use Types Packs/Day Years [...] [facility] [address] [place] [address] Shailesh Vallejo MD [address] [place] [address] [place] [address] documented as of this encounter Visit Diagnoses Not on filedocumented in this encounter Care Teams Manager Print Relationship Specialty Start Date End Date Violeta Boo MD [address] [place] [phone] PCP - General Internal Medicine 03/21/23 documented as of this encounter
--- OUTSIDE RECORDS SUMMARY | 2025-10-31 09:21 | XMS_ITS | Encounter Summary ---
Author Organization [employer] Address [address] [facility] 7t [place] [address] Care Team Providers Care Deputy Grand Jury Name Role Phone Violeta Boo MD Primary Care Provide r Encounter Details Date Type Department Care Team ([facility] st Contact Info) Description 10/14/2025 Orders Only [facility] MEDICINE [address] [place] [address] Violeta Boo MD [address] [place] [address] Spondylosis of lumbar spine (Primary Dx); Primary osteoarthritis of both shoulders Social History Tobacco Use Types Packs/Day Years [...] 12/10/2025 9:15 AM EST Office Visit [facility] MEDICINE [address] [place] [address] Violeta Boo MD [address] [place] [address] [phone] documented as of this encounter Procedures Procedure Name Priority Date/Time Associated Diagnosis Comments XR SHOULDER 2+ VIEWS BILATERAL Routine 10/28/2025 12:26 PM EST documented in this encounter Results * XR Shoulder 2+ Views Bilateral (10/28/2025 12:26 PM EST) Anatomical Region Laterality Modality Upper Extremities, Shoulder Bilateral Radi ographic Imaging 10/28/2025 12:2 6 PM EST Narrative 10/28/2025 1:00 PM EST [address] [address] XRay Report Signed Patient: Violeta Alvarenga V MR#: [id number] : 1950 Acct:[id number] Age/Sex: 75 / F ADM Date: 10/28/25 Loc: .[facility] Attending Dr: Violeta Pascual MD Ordering Physician: Jayy Castorena Date of Service: 10/28/25 Procedure(s): XR Shoulder Pablo min 2V Accession Number(s): [id number] cc: Jayy Castorena; Violeta Boo MD Reason [...] Marco A Rankin MD 10/28/2025 12:57 PM [facility] Dictated By: Marco A Rankin MD Signed By: <Electronically signed by Marco A Rankin MD in OV> 10/28/25 1257 DD/ 1226 TD/TT: 10/28/25 1236 Fashion Artist: BESSY Procedure Note Donotuseinterpreter, Image - 10/28/2025 [place] [address] XRay Report Signed Patient: Violeta Alvarenga VMR#: [id number] : 2Acct:[id number] Age/Sex: 75 / FADM Date: 10/28/25 Loc: [facility] Attending Dr: Violeta Pascual MD Ordering Physician: Jayy Castorena Date of Service: 10/28/25 Procedure(s): XR Shoulder Pablo min 2V Accession Number(s): [id number] cc: Jayy Castorena; Violeta Boo MD Reason [...] 10/28/25 1257 DD/ 1226 TD/TT: 10/28/25 1236 Fashion Artist: BESSY [facility] External Provider IMG XR PROCEDURES Final Result documented in this encounter Visit Diagnoses Diagnosis Spondylosis of lumbar spine- Primary Primary osteoarthritis of both shoulders documented in this encounter Additional Health Concerns Assessment Noted Time PHQ-9 Depression Total Score: 17 024 11:23 AM EDT documented as of this encounter Care Teams Deputy Grand Jury Relationship Specialty Start Date End Date Violeta oBo MD [address] [place] [address] PCP - General Family Medicine 05/21/22 documented as of this encounter
--- OUTSIDE RECORDS SUMMARY | 2025-10-31 09:22 | XMS_ITS | Encounter Summary ---
Author Organization [employer] Address [address] [facility] 7t [place] [address] Care Team Providers Care Air Chipper Name Role Phone Violeta Boo MD Primary Care Provide r Reason for Visit * Reason Onset Date Comments Durable Medical Equipment 10/13/2023 Encounter Details Date Type Department Care Team ([facility] st Contact Info) Description 10/13/2023 Telephone [facility] MEDICINE [address] [place], [place] [phone] Violeta Boo MD [address] [place] [address] Durable Medical Equipment Social History Tobacco Use [...] encounter Miscellaneous Notes * Telephone Encounter - Ceciliamike Osunanic Navarro - 10/13/2023 12:59 PM EST Tc from requesting status on scripts for : 2xl Pullups Ensures Flavors Vanilla and [place] Gloves Large Wipes Pt states insurance fax over request. Please contact pt at [phone] Guinean Speaker documented in this encounter Plan of Treatment Upcoming Encounters Date Type Department Care Team (Late st Contact Info) Description 12/10/2025 9:15 AM EST Office Visit [facility] MEDICINE [address] [place] [address] Violeta Boo MD [address] [place] [address] documented as of this encounter Visit Diagnoses Not on filedocumented in this encounter Care Teams Air Chipper Relationship Specialty Start Date End Date Violeta Boo MD [address] [place], [place] [phone] PCP - General Family Medicine 05/21/22 documented as of this encounter
--- OUTSIDE RECORDS SUMMARY | 2025-10-31 09:22 | XMS_ITS | Encounter Summary ---
Author Organization [employer] Address [address] [facility] 7t [place] [address] Care Team Providers Care Wastewater Treatment Operator Name Role Phone Violeta Boo MD Primary Care Provide r Reason for Visit * Reason Comments Med Refill Encounter Details Date Type Department Care Team ([facility] st Contact Info) Description 03/22/2024 Refill [facility] MEDICINE [address] [place], [place] [phone] Violeta Boo MD [address] [place] [address] Dermatitis Social History Tobacco Use Types Packs/Day [...] Upcoming Encounters Date Type Department Care Team ([facility] st Contact Info) Description 12/10/2025 9:15 AM EST Office Visit [facility] MEDICINE [address] [place] [address] Violeta Boo MD [address] [place] [address] documented as of this encounter Visit Diagnoses Diagnosis Dermatitis Contact dermatitis and other eczema, due to unspecified cause documented in this encounter Care Teams Wastewater Treatment Operator Relationship Specialty Start Date End Date Violeta Boo MD [address] [place] [phone] PCP - General Family Medicine 05/21/22 documented as of this encounter
--- OUTSIDE RECORDS SUMMARY | 2025-10-31 09:22 | XMS_ITS | Encounter Summary ---
Author Organization [employer] Address [address] [facility] 7t [place] [address] Care Team Providers Care Lath Tier Name Role Phone Violeta Boo MD Primary Care Provide r Encounter Details Date Type Department Care Team ([facility] st Contact Info) Description 01/23/2025 Telephone [facility] [address] [place] [address] Caden, Angella, OD [address] [place] [address] Social History Tobacco Use Types Packs/Day Years [...] Description 12/10/2025 9:15 AM EST Office [facility] [address] [place] [address] Violeta Boo MD [address] [place] [phone] documented as of this encounter Visit Diagnoses Not on filedocumented in this encounter Additional Health Concerns Assessment Noted Time PHQ-9 Depression Total Score: 17 024 11:23 AM EDT documented as of this encounter Care Teams Lath Tier Relationship Specialty Start Date End Date Violeta Boo MD [address] [place] [address] [phone] PCP - General Family Medicine 05/21/22 documented as of this encounter
--- OUTSIDE RECORDS SUMMARY | 2025-10-31 09:22 | XMS_ITS | Encounter Summary ---
Author Organization [employer] Address [address] [facility] 7t [place] [address] Care Team Providers Care Membership Secretary Name Role Phone Violeta Boo MD Primary Care Provide r Reason for Visit * Reason Onset Date Comments Appointment Request 11/11/2023 Encounter Details Date Type Department Care Team ([facility] Contact Info) Description 11/11/2023 Telephone [facility] MEDICINE [address] [place] [address] Violeta Boo MD [address] [place] [address] Appointment Request Social History Tobacco Use Types [...] on 11/16/23 due to being covid positive radio script writer did cancel appt documented in this encounter Plan of Treatment Upcoming Encounters Date Type Department Care Team (Late st Contact Info) Description 12/10/2025 9:15 AM EST Office Visit [facility] MEDICINE [address] [place] [phone] Violeta Boo MD [address] [place] [address] documented as of this encounter Visit Diagnoses Not on filedocumented in this encounter Care Teams Membership Secretary Relationship Specialty Start Date End Date Violeta Boo MD [address] [place] [phone] PCP - General Family Medicine 05/21/22 documented as of this encounter
--- OUTSIDE RECORDS SUMMARY | 2025-10-31 09:22 | XMS_ITS | Encounter Summary ---
Author Organization [facility] [facility] Address [address] [facility] 7t [place] [address] Care Team Providers Care Enrollment Services Dean Name Role Phone Violeta Boo MD Primary Care Provide r Encounter Details Date Type Department Care Team ([facility] Contact Info) Description 08/17/2023 Abstract [facility] MEDICINE [address] [place], [place] [phone] Violeta Boo MD [address] [place] [address] [phone] Social History Tobacco Use Types Packs/Day Years [...] Description 12/10/2025 9:15 AM EST Office Visit [facility] MEDICINE [address] [place] [address] [phone] Violeta Boo MD [address] [place], [place] [phone] documented as of this encounter Visit Diagnoses Not on filedocumented in this encounter Care Teams Enrollment Services Dean Relationship Specialty Start Date End Date Violeta Boo MD [address] [place] [address] PCP - General Family Medicine 05/21/22 documented as of this encounter
--- OUTSIDE RECORDS SUMMARY | 2025-10-31 09:22 | XMS_ITS | Encounter Summary ---
Author Organization [employer] Address [address] [facility] 7t [place] [address] Care Team Providers Care Settlement Agent Name Role Phone Violeta Boo MD Primary Care Provide r Reason for Visit * Reason Onset Date Comments Appointment Request 01/29/2025 Encounter Details Date Type Department Care Team ([facility] [address] Contact Info) Description 01/29/[address] [facility] MEDICINE [address] [place] [address] Violeta Boo MD [address] [place] [address] Appointment Request Social History Tobacco Use Types [...] on 02/01 and can't walk after surgery. [phone] welsh documented in this encounter Plan of Treatment Upcoming Encounters Date Type Department Care Team (Late st Contact Info) Description 12/10/2025 9:15 AM EST Office Visit [facility] MEDICINE [address] [place] [address] Violeta Boo MD [address] [place] [address] documented as of this encounter Visit Diagnoses Not on filedocumented in this encounter Additional Health Concerns Assessment Noted Time PHQ-9 Depression Total Score: 17 024 11:23 AM EDT documented as of this encounter Care Teams Settlement Agent Relationship Specialty Start Date End Date Violeta Boo MD [address] [place] [address] PCP - General Family Medicine 05/21/22 documented as of this encounter
--- OUTSIDE RECORDS SUMMARY | 2025-10-31 09:22 | XMS_ITS | Encounter Summary ---
Author Organization [employer] Address [address] [facility] 7t [place] [address] Care Team Providers Care Laborer Cement Gun Placing Name Role Phone Violeta Boo MD Primary Care Provide r Encounter Details Date Type Department Care Team ([facility] st Contact Info) Description 11/10/2023 Abstract [facility] MEDICINE [address] [place] [address] Violeta Boo MD [address] [place], [place] [phone] Social History Tobacco Use Types Packs/Day Years [...] t he electric, gas, oil or water [email or web address] threatened to shut off services in your [...] Description 12/10/2025 9:15 AM EST Office Visit [facility] MEDICINE [address] [place] [address] [phone] Violeta Boo MD [address] [place] [address] documented as of this encounter Visit Diagnoses Not on filedocumented in this encounter Care Teams Laborer Cement Gun Placing Relationship Specialty Start Date End Date Violeta Boo MD [address] [place] [phone] PCP - General Family Medicine 05/21/22 documented as of this encounter
--- OUTSIDE RECORDS SUMMARY | 2025-10-31 09:22 | XMS_ITS | Encounter Summary ---
Author Organization [employer] [facility] Address [address] [place] [address] 7[address] [place] [address] Care Team Providers Care Internal Controls Manager Name Role Phone Violeta Boo MD Primary Care Provide r Encounter Details Date Type Department Care Team (Late Contact Info) Description 08/03/2023 Orders Only [facility] MEDICINE [address] [place] [address] [phone] ProviderLibra MD Social History Tobacco Use Types [...] EST Office Visit [facility] MEDICINE [address] [place] [address] [phone] Violeta Boo MD [address] [place] [address] [phone] documented as of this encounter Procedures Procedure Name Priority Date/Time Associated Diagnosis Comments HM COLONOSCOPY Routine 06/11/2022 documented in this encounter Results * Hm Colonoscopy (06/11/2022) us Historical Provider HEALTH MAINTENANCE Final Result documented in this encounter Visit Diagnoses Not on filedocumented in this encounter Care Teams Internal Controls Manager Relationship Specialty Start Date End Date Violeta Boo MD [address] [place] [address] PCP - General Family Medicine 05/21/22 documented as of this encounter
--- OUTSIDE RECORDS SUMMARY | 2025-10-31 09:22 | XMS_ITS | Encounter Summary ---
Author Organization [employer] Address [address] [facility] 7t [place] [address] Care Team Providers Care Sewing Machine Operator Semiautomatic Name Role Phone Violeta Boo MD Primary Care Provide r Reason for Visit * Reason Onset Date Comments Appt cancelation 03/02/2024 Encounter Details Date Type Department Care Team ([facility] st Contact Info) Description 03/02/2024 Telephone [facility] MEDICINE [address] [place], [place] [phone] Violeta Boo MD [address] [place] [address] Appt cancelation Social History Tobacco Use Types [...] 04/27 due to being referred to outside critical care specialist documented in this encounter Plan of Treatment Upcoming Encounters Date Type Department Care Team (Late st Contact Info) Description 12/10/2025 9:15 AM EST Office Visit [facility] MEDICINE [address] [place] [address] Violeta Boo MD [address] [place] [address] documented as of this encounter Visit Diagnoses Not on filedocumented in this encounter Care Teams Sewing Machine Operator Semiautomatic Relationship Specialty Start Date End Date Violeta Boo MD [address] [place] [address] PCP - General Family Medicine 05/21/22 documented as of this encounter
== END 2025-10-31 09:07 | disposition home or self-care (01) ==
LOC: HO.PMC 08:45
PROVIDERS: PCP Internal Medicine; Visit Provider Anesthesiology
DX: M47.816 Spondylosis without myelopathy or radiculopathy, lumbar region (principal); E66.01 Morbid (severe) obesity due to excess calories; Z68.42 Body mass index [BMI] 45.0-49.9, adult
CPT/HCPCS: 99213

== ENCOUNTER → 2025-10-31 08:44 | Outpatient (BNVA) | payer OTHER, SELFPAY | PROVIDERS: PCP Internal Medicine; Visit Provider Anesthesiology | DX: M47.816 Spondylosis without myelopathy or radiculopathy, lumbar region (principal); E66.01 Morbid (severe) obesity due to excess calories; Z68.42 Body mass index [BMI] 45.0-49.9, adult | CPT/HCPCS: 99212 ==